=== PATIENT | female | born 1940 | race Caucasian/White ===

== ENCOUNTER 2023-03-26 07:09 | Outpatient (RCR) | payer OTHER, SELFPAY ==
--- NOTE | 2023-02-17 15:02 | CR1_ITS ---
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
--- NOTE | 2023-03-17 14:56 | CR1_ITS ---
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
--- NOTE | 2023-03-26 13:51 | CR1_ITS ---
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
== END 2023-03-26 13:27 | disposition home or self-care (01) ==
LOC: CR 07:09
PROVIDERS: PCP Internal Medicine; Visit Provider Internal Medicine Cardiovascular Disease
DX: I25.10 Atherosclerotic heart disease of native coronary artery without angina pectoris (principal); I50.9 Heart failure, unspecified; Z98.61 Coronary angioplasty status
CPT/HCPCS: 93798

== ENCOUNTER 2023-05-14 10:37 | Outpatient (OUT) | payer OTHER, SELFPAY ==
[2023-05-14 11:10] LABS: Basophils Absolute Auto 0.1 10^3/uL (0.0-0.1); Basophils Percent Auto 0.8 % (0.2-2.0); Eosinophils Absolute Auto 0.3 10^3/uL (0.0-0.7); Eosinophils Percent Auto 5.4 % (0.9-7.0); Hematocrit 33.9 % (36.0-48.0); Hemoglobin 11.3 g/dL (12.0-16.0); Immature Granulocytes Abs Auto 0.02 10^3/uL (0.00-0.03); Immature Granulocytes Pct Auto 0.3 % (0.0-0.5); Lymphocytes Absolute Auto 1.5 10^3/uL (1.2-3.8); Mean Corpuscular HGB Conc 33.3 g/dL (29.9-35.2); Mean Corpuscular Hemoglobin 32.3 pg (26.7-34.0); Mean Corpuscular Volume 96.9 fL (81.0-99.0); Mean Platelet Volume 9.7 fL (9.5-13.5); Monocytes Absolute Auto 0.6 10^3/uL (0.3-0.8); Monocytes Percent Auto 10.1 % (1.7-12.0); Neutrophils Absolute Auto 3.8 10^3/uL (1.4-6.5); Neutrophils Percent Auto 59.4 % (43.0-75.0); Platelet Count 184 10^3/uL (150-450); White Blood Count 6.3 10^3/uL (4.0-11.0)
[2023-05-14 11:11] LABS: Bilirubin Urine NEGATIVE (NEGATIVE); Blood Urine TRACE-I (NEGATIVE); Clarity Urine CLEAR (CLEAR); Color Urine LT. YELLOW (YELLOW); Glucose Urine UA NEGATIVE (NEGATIVE); Ketones Urine NEGATIVE (NEGATIVE); Leukocyte Esterase Urine NEGATIVE (NEGATIVE); Nitrite Urine NEGATIVE (NEGATIVE); Protein Urine NEGATIVE (NEG/TRACE); pH Urine 6.5 (5.0-9.0)
[2023-05-14 11:29] LABS: Bacteria Urine TRACE #/HPF (NONE SEEN); Mucus Urine NONE SEEN (NONE SEEN); RBC Urine 0-2 #/HPF (0-2); Squamous Epithelial Cell Urine MODERATE #/LPF (NONE/RARE); WBC Urine NONE SEEN #/HPF (NONE SEEN)
[2023-05-14 11:30] LABS: Urine Culture Indicated ALREADY ORDERED
[2023-05-14 12:05] LABS: Alanine Aminotransferase 23 U/L (14-59); Albumin Globulin Ratio 1.4; Albumin Level 3.8 g/dL (3.4-5.0); Alkaline Phosphatase 66 U/L (46-116); Anion Gap 11.9; Aspartate Amino Transferase 18 U/L (15-37); BUN Creatinine Ratio 18.1; Bilirubin Total 0.8 mg/dL (0.2-1.0); Carbon Dioxide 27.8 mmol/L (21.0-32.0); Chloride 105 mmol/L (98-107); Estimated GFR (African America >60 (>=60); Estimated GFR (Non-African Ame 57 (>=60); Globulin 2.7 g/dL; Glucose 89 mg/dL (74-106); Potassium 3.7 mmol/L (3.5-5.1); Sodium 141 mmol/L (136-145); Thyroid Stimulating Hormone 1.012 uIU/mL (0.358-3.740); Total Protein 6.5 g/dL (6.4-8.2)
== END 2023-05-14 10:38 | disposition home or self-care (01) ==
PROVIDERS: PCP Internal Medicine; Visit Provider Internal Medicine
DX: R39.11 Hesitancy of micturition (principal); L29.9 Pruritus, unspecified; I25.10 Atherosclerotic heart disease of native coronary artery without angina pectoris; N18.31 Chronic kidney disease, stage 3a; R53.83 Other fatigue
CPT/HCPCS: 36415; 80053; 81001; 84443; 85025; 87086

== ENCOUNTER 2023-08-10 07:28 | Outpatient (OUT) | payer OTHER, SELFPAY ==
[2023-08-10 11:35] LABS: Alanine Aminotransferase 42 U/L (14-59); Anion Gap 11.3; Aspartate Amino Transferase 31 U/L (15-37); BUN Creatinine Ratio 18.3; Calcium 9.3 mg/dL (8.5-10.1); Carbon Dioxide 27.8 mmol/L (21.0-32.0); Chloride 102 mmol/L (98-107); Chol HDL Ratio 3.9; Cholesterol 174 mg/dL (<=200); Estimated GFR (African America 54 (>=60); Estimated GFR (Non-African Ame 45 (>=60); Glucose 98 mg/dL (74-106); HDL Cholesterol 45 mg/dL (40-60); Potassium 4.1 mmol/L (3.5-5.1); Sodium 137 mmol/L (136-145); Triglycerides 110 mg/dL (<=150)
== END 2023-08-10 07:29 | disposition home or self-care (01) ==
LOC: LAB 07:29
PROVIDERS: PCP Internal Medicine; Visit Provider Internal Medicine Cardiovascular Disease
DX: I25.10 Atherosclerotic heart disease of native coronary artery without angina pectoris (principal); I10 Essential (primary) hypertension; Z98.61 Coronary angioplasty status; E78.5 Hyperlipidemia, unspecified
CPT/HCPCS: 36415; 80048; 80061; 84450; 84460

== ENCOUNTER 2023-08-14 10:04 | Outpatient (OUT) | payer OTHER, SELFPAY ==
--- NOTE | 2023-08-14 10:10 | XR_ITS ---
The [place] [id number] Patient Name: MARY TEE MRN: [id number] date: 1940 Sex: F Assigned Patient Location: [facility] Current Patient Location: [facility] Accession/Order Number: [id number] Exam Date: 08/14/2023 10:16 Report Date: 08/14/2023 11:42 At the request of: IVAN BARRETO Procedure: XR thoracic spine 3V EXAMINATION: XR thoracic spine 3V, XR lumbar spine 2-3V HISTORY: Acute Right Sided Low Back Pain Without Sciatica COMPARISON: No relevant comparison available. 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 7 mm anterolisthesis of L4 in relation L5 DISC SPACES: Multilevel disc space narrowing, moderate to severe. Disc collapse at multiple levels with endplate sclerosis and vacuum disks PARASPINOUS: Negative. No paraspinous abnormality is seen. OTHER: Extensive atherosclerosis XR/XR thoracic spine 3V IMPRESSION: Moderate to severe diffuse degenerative changes of the thoracolumbar spine 7 mm anterolisthesis of L4 and L5 Electronically authenticated by: TED ARREDONDO Date: 08/14/2023 11:42
--- NOTE | 2023-08-14 10:10 | XR_ITS ---
The [place] [id number] Patient Name: MARY TEE MRN: [id number] date: 1940 Sex: F Assigned Patient Location: [facility] Current Patient Location: [facility] Accession/Order Number: [id number] Exam Date: 08/14/2023 10:16 Report Date: 08/14/2023 11:42 At the request of: IVAN BARRETO Procedure: XR lumbar spine 2-3V EXAMINATION: XR thoracic spine 3V, XR lumbar spine 2-3V HISTORY: Acute Right Sided Low Back Pain Without Sciatica COMPARISON: No relevant comparison available. 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 7 mm anterolisthesis of L4 in relation L5 DISC SPACES: Multilevel disc space narrowing, moderate to severe. Disc collapse at multiple levels with endplate sclerosis and vacuum disks PARASPINOUS: Negative. No paraspinous abnormality is seen. OTHER: Extensive atherosclerosis XR/XR lumbar spine 2-3V IMPRESSION: Moderate to severe diffuse degenerative changes of the thoracolumbar spine 7 mm anterolisthesis of L4 and L5 Electronically authenticated by: TED ARREDONDO Date: 08/14/2023 11:42
--- OUTSIDE RECORDS SUMMARY | 2023-08-14 10:16 | XMS_ITS | CCD ---
Author Name Unknown Address [address] [place] [address] Organization [facility] Care Team Providers Care Sign Writer Letterer Or Painter Name Role Phone SULMA BUSBY Ivory Unavailable Unavailable PORFIRIO VU Unavailable Unavailable Porfirio Vu Primary Care Provider Danis Huang Unavailable Unavailable Unavailable Danis Huang Unavailable BRYCE, DR SUNG Admitting Unavailable MARY LOU, DR LOVE Primary Care Unavailable BRYCE, DR SUNG Attending Unavailable BRYCE, DR SUNG Consulting Unavailable MEHRAN ., DR GAINES Consulting Unavailangel HUANG, DR LOVE Primary Care Unavailable MEHRAN ., DR GAINES Admitting Unavailabl e KARASIK ., DR GAINES Attending Unavailabl e KARASIK ., DR GAINES Attending Unavailabl e KARASIK ., DR GAINES Consulting Unavailangel e MARY LOU, DR LOVE Primary Care Unavailable KARASIK ., DR GAINES Admitting Unavailabl e YOSELIN TRAVIS Consulting Unavailable DO Chaitanya Luna Emergency Provider MD Porfirio Vu Primary Care Provider DO Allan Marroquin Admit Provider DO Allan Marroquin Attending Provider MD Odalis Hager Other Provider DO Danis Huang Primary Care Provider Danis Huang Primary Care Unavailable Allan Marroquin Attending Unavailable Allan aMrroquin Admitting Unavailable Odalis Hager Consulting Unavailable Mary Lou, Dr. Danis Goodrich Primary Care Kelly Huang, Dr. Danis Goodrich Primary Care Kelly Huang, Dr. Danis Goodrich Primary Care Kelly Huang, Dr. Danis Goodrich Primary Care Kelly Huang, Dr. Danis Goodrich Primary Care Kelly Wu II, Dr. Darryl Arthur Attending Seema Wu II, Dr. Darryl Arthur Referring Seema Huang, Dr. Danis Goodrich Primary Care Kelly Huang, Dr. Danis Goodrich Primary Care Kelly Wu II, Dr. Darryl Arthur Attending Seema Wu II, Dr. Daryrl Arthur Referring Seema Wu II, Dr. Darryl Arthur Attending Seema Huang, Dr. Danis Goodrich Primary Care Kelly Huang DO, Danis Goodrich Primary Care Provider AIDAN AMEZCUA Attending MERCEDEZ Schaffer Attending MERCEDEZ Schaffer Attending Unavailable Medications Current Medications Medication Drug Class(es) Dates Sig (Normalized) Sig (Original) alendronic acid 70 mg oral tablet (20 sources) Bisphosphonate Start: 05-28-2022 take 70 mg by mouth every week Alendronate Active 70 MG PO every week January 14, 2023 12:00am EVERY THURSDAY take 1 tablet by mouth once jasiel y Alendronate Sodium 70 MG 1 tablet 30 minutes before the first food, beverage or medicine of the day with plain water Orally Active take 1 tablet by mouth in the mo rning alendronate (Fosamax) 70 mg tablet Take 1 tablet (70 mg) by mouth every 7 days. Take in the morning with a full glass of water, on an empty stomach, and do not take anything else by mouth or lie down for the next 30 min. 0 Active aspirin 81 mg delayed release oral tablet (20 sources) Platelet Aggregation Inhibitor, Nonsteroidal Anti-inflammatory Drug Start: 07-08-2007 take 1 tablet by mouth once daily Aspirin (Aspir-81) 81 mg Tablet,Delayed Release (Dr/Ec) Active 81 MG PO Daily November 02, 2017 12:00am take 1 tablet by mouth once jasiel y Aspirin 81 81 MG 1 tablet Orally Once a day Active Baby Aspirin Act philippe Comment on above: Take one (1) tablet daily. azithromycin 250 mg oral tablet (2 sources) Macrolide Antimicrobial Start: 10-28-2022 Azithromycin 250 MG as directed Orally daily for 5 days Oct, Active Start: 07-03-2021 Azithromycin 2 50 MG Oral Tablet TAKE 2 TABLETS by mouth today, THEN take 1 TABLET once a day FOR the next 4 DAYS. Quantity: 6 Refills: 0 Ordered: 03-Jul-2021 DO Start : 03-Jul-2021 Complete calcium carbonate 1250 mg / cholecalciferol 200 unt oral tablet (1 source) Vitamin D take 1 tablet by mouth once daily calcium carbonate-vitamin D3 500 mg-5 mcg (200 unit) tablet Take 1 tablet by mouth once daily. 0 Active carvedilol 6.25 mg oral tablet (20 sources) alpha-Adrenergic Elpidio, beta-Adrenergic Elpidio Start: 023 take 1 tablet by mouth twice daily at mealtime carvedilol (Coreg) 6.25 mg tablet Indications: Congestive heart failure, NYHA class 2 and ACC/AHA stage C (CMS/HCC) Take 1 tablet (6.25 mg) by mouth 2 times a day with meals. 180 tablet 3 05/19/2023 Active cetirizine hydrochloride 10 mg oral tablet (2 sources) Histamine-1 Receptor Antagonist Start: take 1 tablet by mouth every twenty-four hours Cetirizine HCl 10 MG 1 tablet Orally Once a day for 30 days Mar, Active cholecalciferol 0.025 mg oral capsule (20 sources) Vitamin D Start: take 1 capsule by mouth once daily Cholecalciferol (Vitamin D3) (Vitamin D3) 25 mcg (1,000 unit) Capsule Active 25 MCG PO Daily January 14, 2023 12:00am take 1 capsule by [facility] every twenty-four hours Vitamin D3 50 MCG (2000 UT) 1 capsule Orally Once a day Active docusate sodium 50 mg oral capsule (18 sources) Start: 01-14-2023 take 50 mg by mouth twice daily Docusate Sodium Active 50 MG PO Twice daily January 14, 2023 12:00am take 1 capsule by mo [facility] once daily as needed Docusate Sodium 50 MG 1 capsule as neede d Orally Once a day Active Docusate Sodium TABS TAKE 1 TABLET DAILY DIRECTED. Quantity: 0 Refills: 0 Ordered: 05-Feb-2023 DO Active hydroCHLOROthiazide 12.5 mg / telmisartan 40 mg oral tablet (20 sources) Thiazide Diuretic, Angiotensin 2 Receptor Elpidio Start: 01-14-2023 take 1 tablet by mouth once daily Telmisartan-Hydrochlorothiazid Active 1 TAB PO Daily January 14, 2023 12:00am Start: 05-29-2022 Telmisartan-HC TZ 40-12.5 MG Oral Tablet Quantity: 30 Refills: 0 Ordered: 29-May-2022 DO Start : 29-May-2022 Complete take 1 tablet by tamara th once daily telmisartan-hydrochlorothiazid (MIcarDIS HCT) 80-12.5 mg tablet Take 1 tablet by mouth once daily. 0 Active hydrOXYzine hydrochloride 25 mg oral tablet (10 sources) Antihistamine take 1 tablet by mouth once at bedtime hydrOXYzine HCl 25 MG 1 tablet Orally q HS for 30 days Active nitroglycerin 0.4 mg sublingual tablet (18 sources) Nitrate Vasodilator Start: 01-17-20 Nitroglycerin Active 0.4 MG SUBLINGUAL Q5M January 16, 2023 12:00am Nitroglycerin 0. 4 MG as directed Sublingual Active Omeprazole Magnesium (Prilosec Otc) 20 mg Tablet,Delayed Release (Dr/Ec) (2 sources) Start: 11-02-2017 take 1 tablet by mouth once daily Omeprazole Magnesium (Prilosec Otc) 20 mg Tablet,Delayed Release (Dr/Ec) Active 20 MG PO Daily November 02, 2017 12:00am pravastatin sodium 80 mg oral tablet (13 sources) HMG-CoA Reductase Inhibitor Start: 09-17-2022 take 1 tablet by mouth every twenty-four hours Pravastatin Sodium 80 MG 1 tablet Orally Once a day for 100 days Sep, Active Start: 11-02-2017 End: 01-16-2023 take 1 tablet by mouth at bedtime Pravastatin Discontinued 1 TAB PO Bedtime November 02, 2017 12:00am January 16, 2023 1:36pm Pravastatin Sodi um 40 MG 2 Orally daily for 90 days Active take 1 tablet by tamara th every twelve hours Pravastatin Sodium 40 MG 1 tablet Orally twice a day for 100 days Active ticagrelor 90 mg oral tablet (20 sources) Start: 01-16-2023 End: 06-15-2023 take 1 tablet by mouth twice daily Ticagrelor (Brilinta) 90 mg Tablet Active 90 MG PO Twice daily 180 January 16, 2023 12:00am {20 (nirmatrelvir 150 MG Oral Tablet) / 10 (ritonavir 100 MG Oral Tablet) } Pack [Paxlovid 5-Day] (1 source) Start: 10-30-2022 take 3 tablets by mouth every twelve hours Paxlovid (300/100) 20 x 150 MG & 10 x 100MG 3 tablets Orally Twice a day for 5 day(s) Oct, Active Completed/Discontinued Medications Medication Drug Class(es) Dates Sig (Normalized) Sig (Original) amoxicillin 500 mg oral capsule (1 source) Penicillin-class Antibacterial Start: 10-02-2021 Amoxicillin 500 MG Oral Capsule TAKE 4 CAPSULES BY MOUTH 30 minutes prior to dental appointment Quantity: 4 Refills: 0 Ordered: 02-Oct-2021 DO Start : 02-Oct-2021 Complete atenolol 25 mg oral tablet (10 sources) beta-Adrenergic Elpidio Start: 04-02-2022 take 0.5 tablet by mouth once daily Atenolol 25 MG Oral Tablet TAKE 1/2 (ONE-HALF) OF A TABLET BY MOUTH DAILY Quantity: 15 Refills: 0 Ordered: 01-May-2022 DO Start : 02-Apr-2022 Complete Start: 12-13-2009 End: 01-16-2023 take 25 mg by mouth at bedtime Atenolol Discontinued 2 5 MG PO Bedtime November 02, 2017 12:00am January 16, 2023 1:36pm Comment on above: Take one(1) tablet d brendaanurag. atorvastatin 40 mg oral tablet (20 sources) HMG-CoA Reductase Inhibitor Start: take 2 tablets by mouth once daily Atorvastatin Calcium 40 MG Oral Tablet TAKE 2 TABLET Daily Quantity: 180 Refills: 0 Ordered: 19-Mar-2023 Darryl Wu MD Start : 19-Mar-2023 Active Patient states she cannot swallow an 80 mg tablet Start: 01-16-2023 take 80 mg by mouth once daily in the evening Atorvastatin Active 80 MG PO Every evening January 16, 2023 12:00am 24 hr darifenacin 7.5 mg extended release oral tablet (1 source) Cholinergic Muscarinic Antagonist Start: 07-08-2007 darifenacin hydrobromide(ENABLEX 7.5 MG 24 HR TAB) ONE IN AM AND 1 IN THE PM 0 07/08/2007 Active Comment on above: ONE IN AM AND 1 IN T HE PM diclofenac sodium 75 mg delayed release oral tablet (2 sources) Nonsteroidal Anti-inflammator y Drug Start: 11-02-2017 End: 06-16-2018 take 75 mg by mouth twice daily Diclofenac Sodium Discontinued 75 MG PO Twice daily November 02, 2017 12:00am June 16, 2018 2:38pm hydroCHLOROthiazide 12.5 mg / irbesartan 150 mg oral tablet (1 source) Thiazide Diuretic, Angiotensin 2 Receptor Elpidio Start: 12-13-2009 irbesartan/hydrochlorot hiazide(AVALIDE 150 MG-12.5 MG TAB) Take 1 tablet daily 0 12/13/2009 Active Comment on above: Take 1 tablet daily Irbesartan-Hydrochlorot hiazide (2 sources) Start: 11-02-2017 End: 01-14-2023 take 1 tablet by mouth once daily Irbesartan-Hydrochlorot hiazide Discontinued 1 TAB PO Daily November 02, 2017 12:00am January 14, 2023 11:55am multivitamins(DAILY VITAMIN TAB) (1 source) Start: 12-13-2009 End: 01-22-2011 multivitamins(DAILY VITAMIN TAB) omeprazole 20 mg delayed release oral capsule (20 sources) Proton Pump Inhibitor Start: 01-16-2009 omeprazole(PRILOSEC 20 MG CAP) Take one(1) capsule daily. 0 01/16/2009 Active take 1 tablet by tamara th every twenty-four hours PriLOSEC OTC 20 MG 1 tablet Orally Once a day Active take 1 tablet by mouth once jasiel y PriLOSEC OTC 20 MG 1 tablet Orally Once a day Active PriLOSEC 20 MG C PDR 1/2 capsule daily Quantity: 0 Refills: 0 Ordered: 04-Jun-2022 DO Active Comment on above: Take one(1) capsule daily. rosuvastatin calcium 10 mg oral tablet (1 source) HMG-CoA Reductase Inhibitor Start: 07-08-2007 rosuvastatin calcium(CRESTOR 10 MG TAB) sulfamethoxazole 800 mg / trimethoprim 160 mg oral tablet (1 source) Dihydrofolate Reductase Inhibitor Antibacterial, Sulfonamide Antimicrobial Start: 04-22-2022 Sulfamethoxazole-Trime thoprim 800-160 MG Oral Tablet Quantity: 10 Refills: 0 Ordered: 22-Apr-2022 DO Start : 22-Apr-2022 Complete terconazole 4 mg/ml vaginal cream (1 source) Azole Antifungal Start: 12-26-2021 Terconazole 0.4 % Vaginal Cream Quantity: 45 Refills: 0 Ordered: 26-Dec-2021 DO Start : 26-Dec-2021 Complete Triamcinolone (20 sources) Corticosteroid Start: 09-22-2017 Kenalog -40 mg Sep, Start: 04-27-2017 Kenalog -40 mg Apr, Vitamin D3 CAPS (3 sources) Vitamin D3 CAPS TAKE 1 CAPSULE Daily Quantity: 0 Refills: 0 Ordered: 05-Feb-2023 DO Active Problems Active Problems Problem Classification Problem Date Documented Da te Episodic/Chronic Abdominal pain (3 sources) Right lower quadrant pain; 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: [Right lower quadrant pain] Episodic Acute bronchitis (3 sources) Acute bronchitis; 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: [Acute bronchitis due to other specified organisms] Episodic Acute myocardial infarction (5 sources) Myocardial infarction; 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: [ST elevation (STEMI) myocardial infarction of unspecified site] Onset: 3 01-14-2023 Chronic Acute posthemorrhagic anemia (2 sources) Acute posthemorrhagic anemia Episodic Allergic reactions (1 source) Urticaria, unspecified Episodic Chronic kidney disease (20 sources) Chronic kidney disease stage 3A ; 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: [Stage 3a chronic kidney disease] Chronic Conditions associated with dizziness or vertigo (4 sources) Dizziness and giddiness; 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: [Dizziness and giddiness] Episodic Congestive heart failure; nonhypertensive (6 sources) Congestive heart failure stage C; 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: [Congestive heart failure, unspecified] Onset: 3 06-15-2023 Chronic Coronary atherosclerosis and other heart disease (20 sources) Arteriosclerotic vascular disease; 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: [Cardiovascular disease, unspecified] Onset: 3 Chronic Coronary atherosclerosis and other heart disease (3 sources) Presence of coronary angioplasty implant and graft; 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: [Percutaneous transluminal coronary angioplasty status] Onset: 3 01-14-2023 Episodic Disorders of lipid metabolism (20 sources) Hyperlipidemia; 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: [Other and unspecified hyperlipidemia] Onset: 3 Chronic Esophageal disorders (19 sources) Gastro-esophageal reflux disease with esophagitis; 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: [Gastroesophageal reflux disease with esophagitis without hemorrhage] Chronic Essential hypertension (20 sources) Benign essential hypertension; 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: [Benign essential hypertension] Onset: 3 Chronic Essential hypertension (1 source) Essential hypertension Onset: 7 Genitourinary symptoms and ill-defined conditions (19 sources) Dysuria; 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: [Dysuria] Episodic Heart valve disorders (5 sources) Systolic murmur; 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: [Undiagnosed cardiac murmurs] Onset: 3 05-19-2023 Episodic Immunizations and screening for infectious disease (4 sources) Encounter for screening for human papillomavirus (HPV); 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: [Contact with and (suspected) exposure to other viral communicable diseases] Onset: 2 Episodic Malaise and fatigue (4 sources) Fatigue; 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: [Other malaise and fatigue] Episodic Nausea and vomiting (3 sources) Nausea; 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: [Nausea] Episodic Nonmalignant breast conditions (1 source) Mastodynia Episodic Osteoarthritis (20 sources) Osteoarthritis of hip; 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: [Unilateral primary osteoarthritis, right hip] Chronic Osteoporosis (20 sources) Senile osteoporosis; 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: [Age-related osteoporosis without current pathological fracture] Onset: 2 Chronic Other acquired deformities (20 sources) Lumbar spondylolisthesis; 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: [Spondylolisthesis, lumbar region] Episodic Other acquired deformities (2 sources) Spondylolisthesis, lumbar region Episodic Other aftercare (3 sources) Long-term current use of drug therapy; 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: [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] Episodic Other connective tissue disease (20 sources) History of repair of hip joint; 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: [Presence of left artificial hip joint] Chronic Other connective tissue disease (3 sources) Presence of right artificial hip joint; 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: [Total hip replacement Prosthesis] Chronic Other connective tissue disease (20 sources) Trochanteric bursitis of right hip; 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: [Trochanteric bursitis, right hip] Episodic Other connective tissue disease (20 sources) Trochanteric bursitis of left hip; 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: [Trochanteric bursitis, left hip] Episodic Other female genital disorders (3 sources) Noninflammatory disorder of the vagina; 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: [Other specified noninflammatory disorders of vagina] Episodic Other gastrointestinal disorders (1 source) Diarrhea, unspecified Episodic Other inflammatory condition of skin (3 sources) Lichen simplex chronicus; 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: [Lichen simplex chronicus] Episodic Other injuries and conditions due to external causes (3 sources) History of fall; 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: [History of falling] Episodic Other lower respiratory disease (7 sources) Dyspnea; 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: [Other respiratory abnormalities] Episodic Other lower respiratory disease (1 source) Shortness of breath; 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: [Shortness of breath] Onset: 3 Episodic Other lower respiratory disease (1 source) Dyspnea, unspecified; 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: [Dyspnea, unspecified] Onset: 3 Episodic Other nervous system disorders (20 sources) Chronic pain; 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: [Other chronic pain] Chronic Other nervous system disorders (3 sources) Abnormal gait; 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: [Unsteadiness on feet] Episodic Other non-traumatic joint disorders (3 sources) Shoulder joint pain; 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: [Pain in right shoulder] Episodic Other nutritional; endocrine; and metabolic disorders (4 sources) Overweight in adulthood with body mass index of 25 or more but less than 30; 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: [Overweight] Episodic Other nutritional; endocrine; and metabolic disorders (3 sources) Loss of appetite; 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: [Anorexia] Episodic Other nutritional; endocrine; and metabolic disorders (3 sources) Overweight; 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: [Overweight] Episodic Peripheral and visceral atherosclerosis (20 sources) Peripheral vascular disease; 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: [Peripheral vascular disease, unspecified] Chronic Residual codes; unclassified (3 sources) Preventive procedure; 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: [Encounter for other specified prophylactic measures] Episodic Residual codes; unclassified (3 sources) Localized edema; 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: [Localized edema] Episodic Spondylosis; intervertebral disc disorders; other back problems (20 sources) Degeneration of lumbosacral intervertebral disc; 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: [Other intervertebral disc degeneration, lumbosacral region] Onset: 9 01-16-2009 Chronic Spondylosis; intervertebral disc disorders; other back problems (20 sources) Thoracic and lumbosacral neuritis; 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: [Thoracic or lumbosacral neuritis or radiculitis, unspecified] Onset: 9 01-16-2009 Episodic Unclassified (2 sources) Chest pain, unspecified / R07.9(ICD-9) Onset: 7 Unclassified (1 source) Athscl heart disease of [place] coronary artery w/o ang pctrs / I25.10(ICD-9) Onset: 7 Unclassified (1 source) Family hx of ischem heart dis and oth dis of the circ sys / Z82.49(ICD-9) Onset: 7 Unclassified (1 source) Other fatigue / R53.83(ICD-9) Onset: 7 Unclassified (1 source) Pure hypercholesterolemia, unspecified / E78.00(ICD-9) Onset: 7 Unclassified (1 source) Coronary angioplasty status / Z98.61(ICD-9) Onset: 7 Past or Other Problems Problem Classification Problem Date Documented Date Episodic/Chronic Chronic kidney disease (5 sources) Chronic kidney disease Esophageal disorders (2 sources) Esophageal disorders Nonspecific chest pain (10 sources) Chest pain, unspecified; 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: [Chest pain] Onset: 03-11-2017 Resolved: 10-31-2021 Episodic Occlusion or stenosis of precerebral arteries (6 sources) Occlusion and stenosis of multiple and bilateral cerebral arteries; 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: [Occlusion and stenosis of bilateral carotid arteries] Resolved: 05-16-2021 Chronic Other non-traumatic joint disorders (1 source) Hip pain; 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: [Pain in unspecified hip] Onset: 12-18-2009 12-18-2009 Episodic Other nutritional; endocrine; and metabolic disorders (11 sources) Abnormal weight loss; 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: [Abnormal weight loss] Resolved: 05-05-2022 Episodic Other screening for suspected conditions (not mental disorders or infectious disease) (8 sources) Encounter for screening mammogram for malignant neoplasm of breast; 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: [Encounter for screening for malignant neoplasm of cervix] Onset: 2022 Episodic Residual codes; unclassified (1 source) Asymptomatic menopausal state; 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: [ASYMPTOMATIC MENOPAUSAL STATE] Onset: 05-25-2022 Episodic Residual codes; unclassified (3 sources) Postmenopausal state; 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: [Asymptomatic menopausal state] Onset: 2022 Episodic Unclassified (4 sources) Never smoked tobacco; 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: [Never a smoker] Unclassified (1 source) Polyuria R35.89 Unclassified (1 source) Onset: 06-15-2023 06-15-2023 Results Test Name Value Interpretation Reference Range Facility [facility] IN[facility] Patient Name: ATIYA JHA STUDY: MUGA [facility] [address] [place] [address], [address], [place] [address] [facility] Provider: [facility] Marroquin [facility]: Dr. Nathalie Huang Supervising provider: Sulma Busby RN, BOILER ERECTOR INDICATION: ASCVD Chest Pain; CHF Dyspnea Fatigue Hx PTCA HISTORY: Gender: F; Age: 82 y/o ; Height: 165.1 cm; Weight: 69.2418038 kg. CAD; Chest Pain; SOB; CHF Fatigue; Denies smoking. Cardiac catheterization on 2022. PTCA on 2022. COMPARISON: Previous nuclear testing completed [id number] EF= 76% at [facility]. Previous echo testing completed [id number] EF=40-45% at [facility]. ACCESSION NUMBER(S): [id number]; [id number] ORDERING CLINICIAN: DARRYL MARROQUIN TECHNIQUE: The patient received an IV injection of 3 ml of stannous pyrophosphate (PYP) using the in-vivo method of labeling red blood cells. After 15 minutes the patient received another IV injection of 26.7 mCi of Technetium 99m pertechnetate. Planar images of the left ventricle were obtained in the MARISOL 45, Lt Lateral and anterior projections. FINDINGS: The right ventricle was normal. The left ventricle was normal in size. Regional wall motion was normal. Global resting LVEF was normal- at 58%. IMPRESSION: Normal resting right ventricular function. Normalresting left ventricular function. Left ventricular ejection fraction is 58%. Electronically signed by: ANGIE CEDENO MD Normal [facility] No Panel Informationon 03-11 Normal [facility] [place] [address] DO Work Phone: Tobacco Screening.on 023 Adult depression screening assessment Yes [facility] y [address] DO Work Phone: Adult depression screening assessment No [facility] y [address] DO Work Phone: Fall risk assessment a) No falls within the last year [facility] [place] [address] DO Work Phone: Tobacco use status [facility] b) No [facility] DO Work Phone: Basic Metabolic Panelon - Anion gap [Moles/Vol] 11.8 mmol/L Normal 6.0-15.0 [facility] Comment on above: Performed By: #### H S TROP #### [facility] [address] [place] [address] [place] Calcium [Mass/Vol] 8.8 mg/dL Normal 8.6-10.3 [facility] Comment on above: Performed By: #### H S TROP #### [facility] [address] [place] [address] [place] Chloride [Moles/Vol] 107 mmol/L Normal 98-107 [facility] Comment on above: Performed By: #### H S TROP #### [facility] [address] [place] [address] [place] CO2 [Moles/Vol] 25.2 mmol/L Normal 21.0-31.0 [facility] Comment on above: Performed By: #### H S TROP #### [facility] [address] [place] [address] [place] Creatinine [Mass/Vol] 0.88 mg/dL Normal 0.60-1.20 [facility] Comment on above: Performed By: #### H S TROP #### [facility] [address] [place] [address] [place] Creatinine Clr Calc Pharmacy 48.86 [facility] Comment on above: Result Comment: PERF ORMED BY: [place] [address] PATHOLOGIST COUNSELOR AID JAYDE CARDOZA M.D. Performed By: #### H S TROP #### [place] [address] [place] GFR/1.73 sq M.predicted MDRD (S/P/Bld) [Vol rate/Area] mL/min/{1.73_m2} [facility] Comment on above: Performed By: #### H S TROP #### [place] [address] [place] Glucose [Mass/Vol] 100 mg/dL Normal 70-100 [facility] Comment on above: Result Comment: [place] Glucose Reference Range is dependent on time and content of last meal. Glucose of more than 200 mg/dL in a nonstressed, ambulatory subject supports the diagnosis of Diabetes Mellitus. ADA recommended reference range Performed By: #### H S TROP #### [facility] [address] Potassium [Moles/Vol] 4.0 mmol/L Normal 3.5-5.1 [facility] Comment on above: Performed By: #### H S TROP #### [facility] [address] Sodium [Moles/Vol] 140 mmol/L Normal 136-145 [facility] Comment on above: Performed By: #### H S TROP #### [facility] [address] [address] Urea nitrogen [Mass/Vol] 15 mg/dL Normal 7-25 [facility] Comment on above: Performed By: #### H S TROP #### [facility] [address] Basophils Auto (Bld) [#/Vol] Ordered By: Allan Marroquin on 01-16-2023 Basophils (Bld) [#/Vol] 0.0 10*3/uL 0.0-0.2 [facility] Basophils/100 WBC Auto (Bld) Ordered By: Allan Marroquin on 01-16-2023 Basophils/100 WBC (Bld) 0.6 % . [facility] Calcium [Mass/volume] in Ser um or PlasmaOrdered By: Allan Marroquin on 01-16-2023 Calcium [Mass/Vol] 8.8 mg/dL 8.6-10.3 [facility] Carbon dioxide, total [Moles /volume] in Serum or PlasmaOrdered By: Allan Marroquin on 01-16-2023 CO2 [Moles/Vol] 25.2 mmol/L 21.0-31.0 [facility] Chloride [Moles/volume] in S katiana or PlasmaOrdered By: Allan Marroquin on 01-16-2023 Chloride [Moles/Vol] 107 mmol/L 98-107 [facility] Complete Blood Count Auto Di ffon 01-16-2023 Basophils (Bld) [#/Vol] 0.0 10*3/uL Normal 0.0-0.2 [facility] Comment on above: Result Comment: PERF ORMED BY: [place] [address] PATHOLOGIST COUNSELOR AID JAYDE CARDOZA M.D. Performed By: #### H S TROP #### [address] Basophils/100 WBC (Bld) 0.6 % Normal . [facility] Comment on above: Performed By: #### H S TROP #### [address] Eosinophils (Bld) [#/Vol] 0.3 10*3/uL Normal 0.0-0.45 [facility] Comment on above: Performed By: #### H S TROP #### [address] Eosinophils/100 WBC (Bld) 5.1 % Normal . [facility] Comment on above: Performed By: #### H S TROP #### [address] Erythrocyte distribution width (RBC) [Ratio] 13.8 % Normal 11.9-15.3 [facility] Comment on above: Performed By: #### H S TROP #### [address] Hematocrit (Bld) [Volume fraction] 32.9 % Low 34.0-46.4 [facility] Comment on above: Performed By: #### H S TROP #### [address] Hemoglobin (Bld) [Mass/Vol] 11.5 g/dL Low 11.8-15.4 [facility] Comment on above: Performed By: #### H S TROP #### [address] Lymphocytes (Bld) [#/Vol] 1.4 10*3/uL Normal 1.00-4.8 [facility] Comment on above: Performed By: #### H S TROP #### [facility] 1111 [place] [address] [place] Lymphocytes/100 WBC (Bld) 28.0 % Normal . [facility] Comment on above: Performed By: #### H S TROP #### [facility] [address] MCH (RBC) [Entitic mass] 32.1 pg Normal 24.7-34.3 [facility] Comment on above: Performed By: #### H S TROP #### [address] MCV (RBC) [Entitic vol] 92.2 fL Normal 80-100 [facility] Comment on above: Performed By: #### H S TROP #### [address] Mean Corpuscular HGB Conc 34.8 g/dL Normal 32.0-35.0 [facility] Comment on above: Performed By: #### H S TROP #### [place] [address] [place] Monocytes (Bld) [#/Vol] 0.6 10*3/uL Normal 0.0-0.8 [facility] Comment on above: Performed By: #### H S TROP #### [place] [address] [place] Monocytes/100 WBC (Bld) 12.0 % Normal . [facility] Comment on above: Performed By: #### H S TROP #### [address] Neutrophils (Bld) [#/Vol] 2.8 10*3/uL Normal 1.8-7.7 [facility] Comment on above: Performed By: #### H S TROP #### [address] Neutrophils/100 WBC (Bld) 54.3 % Normal . [facility] Comment on above: Performed By: #### H S TROP #### [address] NRBC% 0.2 /100{WBC} Normal 0-0.5 [facility] Comment on above: Performed By: #### H S TROP #### [address] Platelet mean volume (Bld) [Entitic vol] 8.0 fL Normal 6.3-10.7 [facility] Comment on above: Performed By: #### H S TROP #### [address] Platelets (Bld) [#/Vol] 161 10*3/uL Normal 150-450 [facility] Comment on above: Performed By: #### H S TROP #### [address] RBC (Bld) [#/Vol] 3.57 10*6/uL Low 3.60-5.00 [facility] Comment on above: Performed By: #### H S TROP #### [address] WBC (Bld) [#/Vol] 5.2 10*3/uL Normal 3.8-11.6 [facility] Comment on above: Performed By: #### H S TROP #### [address] Creatinine [Mass/volume] in Serum or PlasmaOrdered By: Allan Marroquin on 01-16-2023 Creatinine [Mass/Vol] 0.88 mg/dL 0.60-1.20 [facility] ECG 12 lead ECGon 01-16-2023 ECG 12 lead ECG [facility] [place] [address] [place] [address] Electrocardiograph Report Signed Patient: Atiya Jha MR#: [id number] : 1940 Acct:[id number] Age/Sex: 82 / F ADM Date: 01/14/23 Loc: Room: [address] [place] [address] Type: DIS IN Attending Dr: Allan Marroquin DO Ordering Provider: W Ziyad Kristian, DO Date of Service: 01/16/23 ECG/ECG 12 lead ECG: STEMI Copies to: Test Reason : Blood Pressure : / mmHG Vent. Rate : 069 BPM Atrial Rate : 069 BPM P-R Int : 156 ms QRS Dur : 084 ms QT Int : 488 ms P-R-T Axes : 044 070 236 degrees QTc Int : 522 ms Normal sinus rhythm Anterior infarct , age undetermined T wave abnormality, consider inferolateral ischemia Prolonged QT Abnormal ECG When compared with ECG of 15-JAN-2023 07:56, T wave inversion now evident in Inferior leads Confirmed by [facility] ([id number] on 01/16/2023 11:20:09 PM Referred By: Electronically Signed By:KOKO WU MD [facility] Transcribed By: MUS Signed By Darryl Wu MD 01/16/[address] [facility] Eosinophils Auto (Bld) [#/Vo l]Ordered By: Allan Marroquin on 01-16-2023 Eosinophils (Bld) [#/Vol] 0.3 10*3/uL 0.0-0.45 [facility] Eosinophils/100 WBC Auto (Bl d)Ordered By: Allan Marroquin on 01-16-2023 Eosinophils/100 WBC (Bld) 5.1 % . [facility] Erythrocyte distribution wid th Auto (RBC) [Ratio]Ordered By: Allan Marroquin on 01-16-2023 Erythrocyte distribution width (RBC) [Ratio] 13.8 % 11.9-15.3 [facility] Glucose [Mass/volume] in Ser um or PlasmaOrdered By: Allan Marroquin on 01-16-2023 Glucose [Mass/Vol] 100 mg/dL 70-100 [facility] Comment on above: ADA recommended refe rence rangeRandom Glucose Reference Range is dependent on time and content of last meal. Glucose of more than 200 mg/dL in a nonstressed, ambulatory subject supports the diagnosis of Diabetes Mellitus. Hematocrit Auto (Bld) [Volum e fraction]Ordered By: Allan Marroquin on 01-16-2023 Hematocrit (Bld) [Volume fraction] 32.9 % 34.0-46.4 [facility] Hemoglobin [Mass/volume] in BloodOrdered By: Allna Marroquin on 01-16-2023 Hemoglobin (Bld) [Mass/Vol] 11.5 g/dL 11.8-15.4 [facility] Leukocytes [#/volume] correc law for nucleated erythrocytes in Blood by Automated counOrdered By: Allan Marroquin on 01-16-2023 WBC corrected for nucl RBC Auto (Bld) [#/Vol] 5.2 10*3/uL 3.8-11.6 [facility] Lymphocytes Auto (Bld) [#/Vo l]Ordered By: Allan Marroquin on 01-16-2023 Lymphocytes (Bld) [#/Vol] 1.4 10*3/uL 1.00-4.8 [facility] Lymphocytes/100 WBC Auto (Bl d)Ordered By: Allan Marroquin on 01-16-2023 Lymphocytes/100 WBC (Bld) 28.0 % . [facility] MCH Auto (RBC) [Entitic mass ]Ordered By: Allan Marroquin on 01-16-2023 MCH (RBC) [Entitic mass] 32.1 pg 24.7-34.3 [facility] MCHC Auto (RBC) [Mass/Vol]Or dered By: Allan Marroquin on 01-16-2023 MCHC (RBC) [Mass/Vol] 34.8 g/dL 32.0-35.0 [facility] MCV Auto (RBC) [Entitic vol] Ordered By: Allan Marroquin on 01-16-2023 MCV (RBC) [Entitic vol] 92.2 fL 80-100 [facility] Monocytes Auto (Bld) [#/Vol] Ordered By: Allan Marroquin on 01-16-2023 Monocytes (Bld) [#/Vol] 0.6 10*3/uL 0.0-0.8 [facility] Monocytes/100 WBC Auto (Bld) Ordered By: Allan Marroquin on 01-16-2023 Monocytes/100 WBC (Bld) 12.0 % . [facility] Neutrophils Auto (Bld) [#/Vo l]Ordered By: Allan Marroquin on 01-16-2023 Neutrophils (Bld) [#/Vol] 2.8 10*3/uL 1.8-7.7 [facility] Neutrophils/100 WBC Auto (Bl d)Ordered By: Allan Marroquin on 01-16-2023 Neutrophils/100 WBC (Bld) 54.3 % . [facility] No Panel InformationOrdered By: Allan Marroquin on 01-16-2023 Estimated GFR (CKD-EPI) > 60.0 mL/Min [facility] Creatinine Clearance (Chem 48.86 [facility] Nucleated erythrocytes [Pres ence] in Blood by Automated countOrdered By: Allan Marroquin on 01-16-2023 Nucleated RBC Auto Ql (Bld) 0.2 /100{WBC} 0-0.5 [facility] Platelet mean volume Auto (B ld) [Entitic vol]Ordered By: Allan Marroquin on 01-16-2023 Platelet mean volume (Bld) [Entitic vol] 8.0 fL 6.3-10.7 [facility] Platelets Auto (Bld) [#/Vol] Ordered By: Allan Marroquin on 01-16-2023 Platelets (Bld) [#/Vol] 161 10*3/uL 150-450 [facility] Potassium [Moles/volume] in Serum or PlasmaOrdered By: Allan Marroquin on 01-16-2023 Potassium [Moles/Vol] 4.0 mmol/L 3.5-5.1 [facility] RBC Auto (Bld) [#/Vol]Ordere d By: Allan Marroquin on 01-16-2023 RBC (Bld) [#/Vol] 3.57 10*6/uL 3.60-5.00 [facility] Serum or plasma anion gap de terminationOrdered By: Allan Marroquin on 01-16-2023 Anion gap [Moles/Vol] 11.8 mmol/L 6.0-15.0 [facility] Sodium [Moles/volume] in Ser um or PlasmaOrdered By: Allan Marroquin on 01-16-2023 Sodium [Moles/Vol] 140 mmol/L 136-145 [facility] Urea nitrogen [Mass/volume] in Serum or PlasmaOrdered By: Allan Marroquin on 01-16-2023 Urea nitrogen [Mass/Vol] 15 mg/dL 7-25 [facility] WBC Auto (Bld) [#/Vol]Ordere d By: Allan Marroquin on 01-16-2023 WBC (Bld) [#/Vol] 5.2 10*3/uL 3.8-11.6 [facility] Basic Metabolic Panelon 01-01 Anion gap [Moles/Vol] 11.7 mmol/L Normal 6.0-15.0 [facility] Comment on above: Performed By: #### H S TROP #### [facility] [address] Calcium [Mass/Vol] 8.6 mg/dL Normal 8.6-10.3 [facility] Comment on above: Performed By: #### H S TROP #### [facility] [address] Chloride [Moles/Vol] 105 mmol/L Normal 98-107 [facility] Comment on above: Performed By: #### H S TROP #### [facility] [address] CO2 [Moles/Vol] 24.1 mmol/L Normal 21.0-31.0 [facility] Comment on above: Performed By: #### H S TROP #### [facility] [address] Creatinine [Mass/Vol] 0.80 mg/dL Normal 0.60-1.20 [facility] Comment on above: Performed By: #### H S TROP #### [facility] 1111 [place] [address] [place] Creatinine Clr Calc Pharmacy 53.75 [facility] Comment on above: Result Comment: PERF ORMED BY: [place] [address] PATHOLOGIST COUNSELOR AID JAYDE CARDOZA M.D. Performed By: #### H S TROP #### [facility] [address] [place] [address] [place] GFR/1.73 sq M.predicted MDRD (S/P/Bld) [Vol rate/Area] mL/min/{1.73_m2} [facility] Comment on above: Performed By: #### H S TROP #### [address] Glucose [Mass/Vol] 97 mg/dL Normal 70-100 [facility] Comment on above: Result Comment: [place] Glucose Reference Range is dependent on time and content of last meal. Glucose of more than 200 mg/dL in a nonstressed, ambulatory subject supports the diagnosis of Diabetes Mellitus. ADA recommended reference range Performed By: #### H S TROP #### [address] Potassium [Moles/Vol] 3.8 mmol/L Normal 3.5-5.1 [facility] Comment on above: Performed By: #### H S TROP #### [address] Sodium [Moles/Vol] 137 mmol/L Normal 136-145 [facility] Comment on above: Performed By: #### H S TROP #### [address] Urea nitrogen [Mass/Vol] 14 mg/dL Normal 7-25 [facility] Comment on above: Performed By: #### H S TROP #### [address] Complete Blood Count Auto Di ffon 01-15-2023 Basophils (Bld) [#/Vol] 0.0 10*3/uL Normal 0.0-0.2 [facility] Comment on above: Result Comment: PERF ORMED BY: [place] [address] PATHOLOGIST COUNSELOR AID JAYDE CARDOZA M.D. Performed By: #### H S TROP #### [place] [address] [place] Basophils/100 WBC (Bld) 0.4 % Normal . [facility] Comment on above: Performed By: #### H S TROP #### [place] [address] [place] Eosinophils (Bld) [#/Vol] 0.2 10*3/uL Normal 0.0-0.45 [facility] Comment on above: Performed By: #### H S TROP #### [address] Eosinophils/100 WBC (Bld) 2.7 % Normal . [facility] Comment on above: Performed By: #### H S TROP #### [address] Erythrocyte distribution width (RBC) [Ratio] 13.7 % Normal 11.9-15.3 [facility] Comment on above: Performed By: #### H S TROP #### [address] Hematocrit (Bld) [Volume fraction] 33.2 % Low 34.0-46.4 [facility] Comment on above: Performed By: #### H S TROP #### [address] Hemoglobin (Bld) [Mass/Vol] 11.6 g/dL Low 11.8-15.4 [facility] Comment on above: Performed By: #### H S TROP #### [address] Lymphocytes (Bld) [#/Vol] 1.4 10*3/uL Normal 1.00-4.8 [facility] Comment on above: Performed By: #### H S TROP #### [address] Lymphocytes/100 WBC (Bld) 19.7 % Normal . [facility] Comment on above: Performed By: #### H S TROP #### [address] MCH (RBC) [Entitic mass] 31.8 pg Normal 24.7-34.3 [facility] Comment on above: Performed By: #### H S TROP #### [address] MCV (RBC) [Entitic vol] 91.0 fL Normal 80-100 [facility] Comment on above: Performed By: #### H S TROP #### [facility] [address] Mean Corpuscular HGB Conc 34.9 g/dL Normal 32.0-35.0 [facility] Comment on above: Performed By: #### H S TROP #### [facility] 1111 [place] [address] [place] Monocytes (Bld) [#/Vol] 0.6 10*3/uL Normal 0.0-0.8 [facility] Comment on above: Performed By: #### H S TROP #### [place] [address] [place] Monocytes/100 WBC (Bld) 8.9 % Normal . [facility] Comment on above: Performed By: #### H S TROP #### [address] Neutrophils (Bld) [#/Vol] 4.7 10*3/uL Normal 1.8-7.7 [facility] Comment on above: Performed By: #### H S TROP #### [place] [address] [place] Neutrophils/100 WBC (Bld) 68.3 % Normal . [facility] Comment on above: Performed By: #### H S TROP #### [address] NRBC% 0.1 /100{WBC} Normal 0-0.5 [facility] Comment on above: Performed By: #### H S TROP #### [place] [address] [place] Platelet mean volume (Bld) [Entitic vol] 7.8 fL Normal 6.3-10.7 [facility] Comment on above: Performed By: #### H S TROP #### [place] [address] [place] Platelets (Bld) [#/Vol] 160 10*3/uL Normal 150-450 [facility] Comment on above: Performed By: #### H S TROP #### [facility] [address] RBC (Bld) [#/Vol] 3.65 10*6/uL Normal 3.60-5.00 [facility] Comment on above: Performed By: #### H S TROP #### [facility] 1111 [place] [id number] [facility] WBC (Bld) [#/Vol] 6.9 10*3/uL Normal 3.8-11.6 [facility] Comment on above: Performed By: #### H S TROP #### [facility] [address] ECG 12 lead ECGon 01-15-2023 ECG 12 lead ECG [facility] [place] [address] [place] [address] Electrocardiograph Report Signed Patient: Atiya Jha MR#: [id number] : 1940 Acct:[id number] Age/Sex: 82 / F ADM Date: 01/14/23 Loc: Room: [address] [place] [address] Type: ADM IN Attending Dr: lAlan Marroquin DO Ordering Provider: Allan Marroquin DO Date of Service: 01/15/23 ECG/ECG 12 lead ECG: STEMI Copies to: Test Reason : Blood Pressure : / mmHG Vent. Rate : 069 BPM Atrial Rate : 069 BPM P-R Int : 186 ms QRS Dur : 082 ms QT Int : 450 ms P-R-T Axes : 068 068 108 degrees QTc Int : 482 ms Normal sinus rhythm Low voltage QRS Prolonged QT Abnormal ECG When compared with ECG of 14-JAN-2023 10:30, (Unconfirmed) ST no longer elevated in Anterior leads T wave inversion now evident in Anterolateral leads Confirmed by [facility] ([id number] on 01/15/2023 11:41:06 AM Referred By: Electronically Signed By:KOKO WU MD [facility] Transcribed By: MUS Signed By Darryl Wu MD 01/15/[address] [facility] ECH echo transthoracicon ECH echo transthoracic [facility] [place] [address] [place] [address] Echocardiogram Signed Patient: Atiya Jha MR#: [id number] : 1940 Acct:[id number] Age/Sex: 82 / F ADM Date: 01/14/23 Loc: Room: [address] [place] [address] Type: ADM IN Attending Dr: Allan Marroquin DO Ordering Provider: Allan Marroquin DO Date of Service: 01/15/23 ECH/ECH echo transthoracic: STEMI Copies to: MD Allan Madera DO Weight: 154 lb Performed By: ANGELA Del [place] BSA: 1.8 m2 BP: 121/59 mmHg HR: 72 Reason For Study: STEMI History: Hypertension, High Cholesterol Interpretation Summary The left ventricular size and thickness are normal. Ejection Fraction = 40-45%. A variety of Doppler measurements indicate impaired left ventricular relaxation, which is associated with grade I/IV or mild diastolic dysfunction. There is severe hypokinesis to akinesis of the mid to distal anteroseptal wall and apex Mild valvular aortic stenosis. The aortic valve maximum pressure gradient is 26 mmHg. The aortic valve mean gradient is 13 mmHg. There is trace mitral regurgitation. There is mild tricuspid regurgitation. The right ventricular systolic pressure is 45 mmHg. Right ventricular systolic pressure is consistent with moderate pulmonary hypertension. There is no comparison study available. Procedure/Quality: A two-dimensional transthoracic echocardiogram with color flow and Doppler was performed. Left Ventricle: The left ventricular size and thickness are normal. Ejection Fraction = 40-45%. A variety of Doppler measurements indicate impaired left ventricular relaxation, which is associated with grade I/IV or mild diastolic dysfunction. There is severe hypokinesis to akinesis of the mid to distal anteroseptal wall and apex. Left Atrium: The left atrium appears normal in size. Right Atrium: The right atrium appears normal in size. Right Ventricle: The right ventricular size, thickness and function are normal. Aortic Valve: The aortic valve is mildly calcified. Mild valvular aortic stenosis. The aortic valve maximum pressure gradient is 26 mmHg. The aortic valve mean gradient is 13 mmHg. No aortic regurgitation is present. Mitral Valve: The mitral valve is moderately sclerotic. There is trace mitral regurgitation. Tricuspid Valve: The tricuspid valve is normal in structure and function. There is mild tricuspid regurgitation. The right ventricular systolic pressure is 45 mmHg. Right ventricular systolic pressure is consistent with moderate pulmonary hypertension. Pulmonic Valve: The pulmonic valve is normal in structure and function. Arteries: The aortic root is normal size. Pericardium/Pleura: No pericardial effusion seen. There is no pleural effusion. IVC/Hepatic Viens: The inferior vena cava is normal in size, with a normal collapsibility index. Measurements with Normals IVSd: 0.76 cm (0.7-1.1 cm)LVIDd: 4.3 cm (3.7-5.4 cm) LVPWd: 0.83 cm (0.7-1.1 cm)LVIDs: 2.6 cm (2.3-3.6 cm) LA dimension: 2.8 cm (2.3-4.0 cm)Ao root diam: 2.7 cm(2.0-3.6 cm) asc Aorta Diam: 3.0 cm(2.1-3.4cm) Doppler with Normals RVSP(TR): 45.8 mmHg (18-35mmHg) LV V1 max: 110.8 cm/sec (0.7-1.7m/s)MV E max edmar: 102.0 cm/sec(0.8-1.3m/s) MV A max edmar: 132.8 cm/sec(0.0-0.0m/s) MV E/A: 0.77 (<1.5) MMode/2D Measurements Calculations RVDd: 2.0 cm FS: 40.4 % Ao root area: LVOT diam: 1.9 cm TAPSE: 2.3 cm EDV(Teich): 5.5 cm2 LVOT area: 3.0 cm2 RV S Edmar: 84.9 ml 18.8 cm/sec ESV(Teich): 24.3 ml EF(Teich): 71.4 % __ LVLd ap4: 6.2 cm SV(MOD-sp4): LAV(MOD-sp4): LA A2 area: 7.9 cm2 EDV(MOD-sp4): 39.8 ml 19.4 ml 61.1 ml LAV(MOD-sp2): LA A4 area: 10.1 cm2 LVLs ap4: 5.5 cm 16.2 ml LA length (vol): ESV(MOD-sp4): 4.1 cm 21.3 ml LA vol: 16.5 ml EF(MOD-sp4): 65.1 % LA vol index: 9.0 ml/m2 Doppler Measurements Calculations MV max P.0 mmHg E/E' lat: 14.0 Ao V2 max: LV V1 max PG: E/E' med: 13.2 257.9 cm/sec 4.9 mmHg Ao max P.6 mmHgLV V1 mean PG: Ao mean P.6 mmHg 12.7 mmHg LV V1 mean: Ao V2 mean: 74.0 cm/sec 167.9 cm/sec LV V1 VTI: 28.7 cm Ao V2 VTI: 54.5 cm JEANA(I,D): 1.6 cm2 JEANA(V,D): 1.3 cm2 __ MR max edmar: TV max PG: TR max edmar: 266.2 cm/sec 43.0 mmHg 327.1 cm/sec MR max P.3 mmHg TR max P.8 mmHg RAP systole: 3.0 mmHg ___ Transcribed By: SCV Performed At: 01/15/23 0925 Signed By: Xiomara Au MD 01/15/23 1129 [facility] Glucose Glucometer (BldC) [M ass/Vol]Ordered By: Allan Marroquin on 01-15-2023 Glucose [Mass/Vol] 108 mg/dL [facility] Comment on above: Random Glucose Refer ence Range is dependent on time and content of last meal. Glucose of more than 200 mg/dL in a nonstressed, ambulatory subject supports the diagnosis of Diabetes Mellitus. Glucose Poct Glucometerson 0 01-15-2023 Glucose [Mass/Vol] 108 mg/dL Normal [facility] Comment on above: Result Comment: [place] Glucose Reference Range is dependent on time and content of last meal. Glucose of more than 200 mg/dL in a nonstressed, ambulatory subject supports the diagnosis of Diabetes Mellitus. PERFORMED BY: [place] [address] PATHOLOGIST COUNSELOR AID JAYDE CARDOZA M.D. Performed By: #### H S TROP #### [place] [address] [place] Troponin I High Sensitivityo n 01-15-2023 Troponin I High Sensitivity 92665.5 pg/mL Off scale high 0.0-15.0 [facility] Comment on above: Result Comment: Crit ical Result : Called to and read back by: SEAN WHITTAKER at: 01/15/2023 05:46:06 by:[id number] PERFORMED BY: [place] [address] PATHOLOGIST COUNSELOR AID JAYDE CARDOZA M.D. Performed By: #### H S TROP #### [place] [id number] [facility] Troponin I High Sensitivity 29317.5 pg/mL Off scale high 0.0-15.0 [facility] Comment on above: Result Comment: Crit ical Result [id number] Called to and read back by: SEAN WHITTAKER at: 01/14/2023 23:11:25 by:[id number] PERFORMED BY: [place] [phone] PATHOLOGIST COUNSELOR AID JAYDE CARDOZA M.D. Performed By: #### H S TROP #### [address] Troponin I.cardiac [Mass/vol ume] in Serum or Plasma by Detection limit <= 0.01 ng/Ordered By: Allan Marroquin on 01-15-2023 Troponin I.cardiac DL <= 0.01 ng/mL [Mass/Vol] 54768.5 pg/mL 0.0-15.0 [facility] Comment on above: Critical Result : Ca lled to and read back by: SEAN WHITTAKER at: 01/15/2023 05:46:06 by:[id number] Activated partial thrombopla stin time (aPTT) in platelet poor plasma by coagulation aOrdered By: Chaitanya Luna on 01-14-2023 aPTT Coag (PPP) [Time] 274.4 s 25.1-36.5 [facility] Comment on above: result calledat 1017 on 01/14/23 Alanine aminotransferase [En zymatic activity/volume] in Serum or PlasmaOrdered By: Chaitanya Luna on 01-14-2023 ALT [Catalytic activity/Vol] 13 U/L 7-52 [facility] Albumin [Mass/volume] in Ser um or Plasma by Bromocresol green (BCG) dye binding methoOrdered By: Chaitanya Luna on 01-14-2023 Albumin BCG dye [Mass/Vol] 4.3 g/dL 3.5-5.7 [facility] Alkaline phosphatase [Enzyma tic activity/volume] in Serum or PlasmaOrdered By: Chaitanya Luna on 01-14-2023 ALP [Catalytic activity/Vol] 49 U/L 34-104 [facility] Aspartate aminotransferase [ Enzymatic activity/volume] in Serum or PlasmaOrdered By: Chaitanya Luna on 01-14-2023 AST [Catalytic activity/Vol] 16 U/L 13-39 [facility] B-Type Natriuretic Peptideon 01-14-2023 Natriuretic peptide B (Bld) [Mass/Vol] 191.0 pg/mL High 5-100 [facility] Comment on above: Result Comment: PERF ORMED BY: [place] [address] PATHOLOGIST COUNSELOR AID JAYDE CARDOZA M.D. Performed By: #### P T, CBC, CK, CMP, BNP, PTT, HS TROP #### [address] Basophils Auto (Bld) [#/Vol] Ordered By: Chaitanya Luna on 01-14-2023 Basophils (Bld) [#/Vol] 0.0 10*3/uL 0.0-0.2 [facility] Basophils/100 WBC Auto (Bld) Ordered By: Chaitanya Luna on 01-14-2023 Basophils/100 WBC (Bld) 0.7 % . [facility] Bilirubin.total [Mass/volume ] in Serum or PlasmaOrdered By: Chaitanya Luna on 01-14-2023 Bilirubin [Mass/Vol] 0.7 mg/dL 0.3-1.0 [facility] Calcium [Mass/volume] in Ser um or PlasmaOrdered By: Chaitanya Luna on 01-14-2023 Calcium [Mass/Vol] 8.7 mg/dL 8.6-10.3 [facility] Carbon dioxide, total [Moles /volume] in Serum or PlasmaOrdered By: Chaitanya Luna on 01-14-2023 CO2 [Moles/Vol] 21.9 mmol/L 21.0-31.0 [facility] Chloride [Moles/volume] in S katiana or PlasmaOrdered By: Chaitanya Luna on 01-14-2023 Chloride [Moles/Vol] 107 mmol/L 98-107 [facility] Complete Blood Count Auto Di ffon 01-14-2023 Basophils (Bld) [#/Vol] 0.0 10*3/uL Normal 0.0-0.2 [facility] Comment on above: Result Comment: PERF ORMED BY: [place] [address] PATHOLOGIST COUNSELOR AID JAYDE CARDOZA M.D. Performed By: #### P T, CBC, CK, CMP, BNP, PTT, HS TROP #### [facility] [address] Basophils/100 WBC (Bld) 0.7 % Normal . [facility] Comment on above: Performed By: #### P T, CBC, CK, CMP, BNP, PTT, HS TROP #### [facility] [address] Eosinophils (Bld) [#/Vol] 0.2 10*3/uL Normal 0.0-0.45 [facility] Comment on above: Performed By: #### P T, CBC, CK, CMP, BNP, PTT, HS TROP #### [address] Eosinophils/100 WBC (Bld) 3.6 % Normal . [facility] Comment on above: Performed By: #### P T, CBC, CK, CMP, BNP, PTT, HS TROP #### [address] Erythrocyte distribution width (RBC) [Ratio] 13.4 % Normal 11.9-15.3 [facility] Comment on above: Performed By: #### P T, CBC, CK, CMP, BNP, PTT, HS TROP #### [address] Hematocrit (Bld) [Volume fraction] 33.5 % Low 34.0-46.4 [facility] Comment on above: Performed By: #### P T, CBC, CK, CMP, BNP, PTT, HS TROP #### [address] Hemoglobin (Bld) [Mass/Vol] 11.4 g/dL Low 11.8-15.4 [facility] Comment on above: Performed By: #### P T, CBC, CK, CMP, BNP, PTT, HS TROP #### [address] Lymphocytes (Bld) [#/Vol] 2.1 10*3/uL Normal 1.00-4.8 [facility] Comment on above: Performed By: #### P T, CBC, CK, CMP, BNP, PTT, HS TROP #### [address] Lymphocytes/100 WBC (Bld) 35.4 % Normal . [facility] Comment on above: Performed By: #### P T, CBC, CK, CMP, BNP, PTT, HS TROP #### [address] MCH (RBC) [Entitic mass] 31.4 pg Normal 24.7-34.3 [facility] Comment on above: Performed By: #### P T, CBC, CK, CMP, BNP, PTT, HS TROP #### [address] MCV (RBC) [Entitic vol] 92.1 fL Normal 80-100 [facility] Comment on above: Performed By: #### P T, CBC, CK, CMP, BNP, PTT, HS TROP #### [address] Mean Corpuscular HGB Conc 34.1 g/dL Normal 32.0-35.0 [facility] Comment on above: Performed By: #### P T, CBC, CK, CMP, BNP, PTT, HS TROP #### [address] Monocytes (Bld) [#/Vol] 0.5 10*3/uL Normal 0.0-0.8 [facility] Comment on above: Performed By: #### P T, CBC, CK, CMP, BNP, PTT, HS TROP #### [address] Monocytes/100 WBC (Bld) 17.24 % Normal 0.00-20.00 [facility] Comment on above: Performed By: #### P T, CBC, CK, CMP, BNP, PTT, HS TROP #### [address] Monocytes/100 WBC (Bld) 8.9 % Normal . [facility] Comment on above: Performed By: #### P T, CBC, CK, CMP, BNP, PTT, HS TROP #### [address] Neutrophils (Bld) [#/Vol] 3.1 10*3/uL Normal 1.8-7.7 [facility] Comment on above: Performed By: #### P T, CBC, CK, CMP, BNP, PTT, HS TROP #### [address] Neutrophils/100 WBC (Bld) 51.4 % Normal . [facility] Comment on above: Performed By: #### P T, CBC, CK, CMP, BNP, PTT, HS TROP #### [facility] [address] NRBC% 0.1 /100{WBC} Normal 0-0.5 [facility] Comment on above: Performed By: #### P T, CBC, CK, CMP, BNP, PTT, HS TROP #### [facility] [address] Platelet mean volume (Bld) [Entitic vol] 8.3 fL Normal 6.3-10.7 [facility] Comment on above: Performed By: #### P T, CBC, CK, CMP, BNP, PTT, HS TROP #### [address] Platelets (Bld) [#/Vol] 183 10*3/uL Normal 150-450 [facility] Comment on above: Performed By: #### P T, CBC, CK, CMP, BNP, PTT, HS TROP #### [address] RBC (Bld) [#/Vol] 3.64 10*6/uL Normal 3.60-5.00 [facility] Comment on above: Performed By: #### P T, CBC, CK, CMP, BNP, PTT, HS TROP #### [address] WBC (Bld) [#/Vol] 5.9 10*3/uL Normal 3.8-11.6 [facility] Comment on above: Performed By: #### P T, CBC, CK, CMP, BNP, PTT, HS TROP #### [address] Comprehensive Metabolic Pane gabriel 01-14-2023 Albumin [Mass/Vol] 4.3 g/dL Normal 3.5-5.7 [facility] Comment on above: Performed By: #### P T, CBC, CK, CMP, BNP, PTT, HS TROP #### [address] Albumin/Globulin [Mass ratio] 2.0 {ratio} Normal [facility] Comment on above: Performed By: #### P T, CBC, CK, CMP, BNP, PTT, HS TROP #### [facility] [address] [place] [address] ALP [Catalytic activity/Vol] 49 U/L Normal 34-104 [facility] Comment on above: Performed By: #### P T, CBC, CK, CMP, BNP, PTT, HS TROP #### [facility] [address] ALT [Catalytic activity/Vol] 13 U/L Normal 7-52 [facility] Comment on above: Performed By: #### P T, CBC, CK, CMP, BNP, PTT, HS TROP #### [address] Anion gap [Moles/Vol] 15.2 mmol/L High 6.0-15.0 [facility] Comment on above: Performed By: #### P T, CBC, CK, CMP, BNP, PTT, HS TROP #### [facility] [address] [place] [address] AST [Catalytic activity/Vol] 16 U/L Normal 13-39 [facility] Comment on above: Performed By: #### P T, CBC, CK, CMP, BNP, PTT, HS TROP #### [facility] [address] [place] [address] Bilirubin [Mass/Vol] 0.7 mg/dL Normal 0.3-1.0 [facility] Comment on above: Performed By: #### P T, CBC, CK, CMP, BNP, PTT, HS TROP #### [facility] [address] [place] [address] Calcium [Mass/Vol] 8.7 mg/dL Normal 8.6-10.3 [facility] Comment on above: Performed By: #### P T, CBC, CK, CMP, BNP, PTT, HS TROP #### [facility] [address] [place] [address] Chloride [Moles/Vol] 107 mmol/L Normal 98-107 [facility] Comment on above: Performed By: #### P T, CBC, CK, CMP, BNP, PTT, HS TROP #### [address] CO2 [Moles/Vol] 21.9 mmol/L Normal 21.0-31.0 [facility] Comment on above: Performed By: #### P T, CBC, CK, CMP, BNP, PTT, HS TROP #### [facility] [address] Creatinine [Mass/Vol] 0.86 mg/dL Normal 0.60-1.20 [facility] Comment on above: Performed By: #### P T, CBC, CK, CMP, BNP, PTT, HS TROP #### [address] Creatinine Clr Calc Pharmacy 49.92 [facility] Comment on above: Result Comment: PERF ORMED BY: [place] [address] PATHOLOGIST COUNSELOR AID JAYDE CARDOZA M.D. Performed By: #### P T, CBC, CK, CMP, BNP, PTT, HS TROP #### [address] GFR/1.73 sq M.predicted MDRD (S/P/Bld) [Vol rate/Area] mL/min/{1.73_m2} [facility] Comment on above: Performed By: #### P T, CBC, CK, CMP, BNP, PTT, HS TROP #### [address] Globulin (S) [Mass/Vol] 2.1 g/dL [facility] Comment on above: Performed By: #### P T, CBC, CK, CMP, BNP, PTT, HS TROP #### [address] Glucose [Mass/Vol] 132 mg/dL High 70-100 [facility] Comment on above: Result Comment: [facility] Glucose Reference Range is dependent on time and content of last meal. Glucose of more than 200 mg/dL in a nonstressed, ambulatory subject supports the diagnosis of Diabetes Mellitus. ADA recommended reference range Performed By: #### P T, CBC, CK, CMP, BNP, PTT, HS TROP #### [address] Potassium [Moles/Vol] 3.1 mmol/L Low 3.5-5.1 [facility] Comment on above: Performed By: #### P T, CBC, CK, CMP, BNP, PTT, HS TROP #### [address] Protein [Mass/Vol] 6.4 g/dL Normal 6.4-8.9 [facility] Comment on above: Performed By: #### P T, CBC, CK, CMP, BNP, PTT, HS TROP #### [address] Sodium [Moles/Vol] 141 mmol/L Normal 136-145 [facility] Comment on above: Performed By: #### P T, CBC, CK, CMP, BNP, PTT, HS TROP #### [address] Urea nitrogen [Mass/Vol] 20 mg/dL Normal 7-25 [facility] Comment on above: Performed By: #### P T, CBC, CK, CMP, BNP, PTT, HS TROP #### [place] [address] [place] Creatine Kinaseon 01-14-2023 CK [Catalytic activity/Vol] 119 U/L Normal 30-223 [facility] Comment on above: Performed By: #### P T, CBC, CK, CMP, BNP, PTT, HS TROP #### [place] [address] [place] Creatine kinase [Enzymatic a ctivity/volume] in Serum or PlasmaOrdered By: Chaitanya Luna on 01-14-2023 CK [Catalytic activity/Vol] 119 U/L 30-223 [facility] Creatinine [Mass/volume] in Serum or PlasmaOrdered By: Chaitanya Luna on 01-14-2023 Creatinine [Mass/Vol] 0.86 mg/dL 0.60-1.20 [facility] ECG 12 lead ECGon 01-14-2023 ECG 12 lead ECG [facility] Main [place] [id number] Electrocardiograph Report Signed Patient: Atiya Jha MR#: [id number] : 1940 Acct:[id number] Age/Sex: 82 / F ADM Date: 01/14/23 Loc: 4C Room: [address] [place] [address] Type: ADM IN Attending Dr: Allan Marroquin DO Ordering Provider: Allan Marroquin DO Date of Service: 01/14/23 ECG/ECG 12 lead ECG: Post Angioplasty Procedure Copies to: Test Reason : Blood Pressure : / mmHG Vent. Rate : 082 BPM Atrial Rate : 082 BPM P-R Int : 208 ms QRS Dur : 090 ms QT Int : 426 ms P-R-T Axes : 076 076 059 degrees QTc Int : 497 ms Normal sinus rhythm Cannot rule out Inferior infarct , new Anteroseptal infarct , possibly acute ACUTE UT Abnormal ECG When compared with ECG of 14-JAN-2023 09:10, premature atrial complexes are no longer present Acute Inferior infarct is now present Confirmed by [facility] SAMS [id number] on 01/15/2023 11:41:01 AM Referred By: Electronically Signed By:KOKO WU MD [facility] Transcribed By: MUS Signed By Darryl Wu MD 01/15/23 1141 [facility] ECG 12 lead ECG [facility] Main [address] [address] Electrocardiograph Report Signed Patient: Atiya Jha MR#: [id number] : 1940 Acct:[id number] Age/Sex: 82 / F ADM Date: 01/14/23 Loc: 4C Room: [address] [place] [address] Type: REG SDC Attending Dr: Allan Marroquin DO Ordering Provider: Chaitanya Luna DO Date of Service: 01/14/23 ECG/ECG 12 lead ECG: STEMI/CHEST PAIN Copies to: Test Reason : Blood Pressure : 204/094 mmHG Vent. Rate : 082 BPM Atrial Rate : 082 BPM P-R Int : 174 ms QRS Dur : 086 ms QT Int : 430 ms P-R-T Axes : 064 038 054 degrees QTc Int : 502 ms Sinus rhythm with premature atrial complexes ST elevation, consider lateral injury or acute infarct Prolonged QT ACUTE UT / STEMI Abnormal ECG Confirmed by Chaitanya LUNA DO ([id number]) on 01/14/2023 10:50:51 AM Referred By: Electronically Signed By:Chaitanya LUNA DO Transcribed By: MUS Signed By Chaitanya Luna DO 0 01/14/[address] [facility] Eosinophils Auto (Bld) [#/Vo l]Ordered By: Chaitanya Luna on 01-14-2023 Eosinophils (Bld) [#/Vol] 0.2 10*3/uL 0.0-0.45 [facility] Eosinophils/100 WBC Auto (Bl d)Ordered By: Chaitanya Luna on 01-14-2023 Eosinophils/100 WBC (Bld) 3.6 % . [facility] Erythrocyte distribution wid th Auto (RBC) [Ratio]Ordered By: Chaitanya Luna on 01-14-2023 Erythrocyte distribution width (RBC) [Ratio] 13.4 % 11.9-15.3 [facility] Globulin Calc (S) [Mass/Vol] Ordered By: Chaitanya Luna on 01-14-2023 Globulin (S) [Mass/Vol] 2.1 g/dL [facility] Glucose Poct Glucometerson 0 01-14-2023 Glucose [Mass/Vol] 112 mg/dL Normal [facility] Comment on above: Result Comment: [facility] Glucose Reference Range is dependent on time and content of last meal. Glucose of more than 200 mg/dL in a nonstressed, ambulatory subject supports the diagnosis of Diabetes Mellitus. PERFORMED BY: [place] [address] PATHOLOGIST COUNSELOR AID JAYDE CARDOZA M.D. Performed By: #### H S TROP #### [address] Glucose [Mass/volume] in Ser um or PlasmaOrdered By: Chaitanya Luna on 01-14-2023 Glucose [Mass/Vol] 132 mg/dL 70-100 [facility] Comment on above: ADA recommended refe rence rangeRandom Glucose Reference Range is dependent on time and content of last meal. Glucose of more than 200 mg/dL in a nonstressed, ambulatory subject supports the diagnosis of Diabetes Mellitus. Hematocrit Auto (Bld) [Volum e fraction]Ordered By: Chaitanya Luna on 01-14-2023 Hematocrit (Bld) [Volume fraction] 33.5 % 34.0-46.4 [facility] Hemoglobin [Mass/volume] in BloodOrdered By: Chaitanya Luna on 01-14-2023 Hemoglobin (Bld) [Mass/Vol] 11.4 g/dL 11.8-15.4 [facility] Laboratory - CoagulationOrde red By: Chaitanya Luna on 01-14-2023 PT Coag (PPP) [Time] 11.9 s 9.0-12.9 [facility] Leukocytes [#/volume] correc law for nucleated erythrocytes in Blood by Automated counOrdered By: Chaitanya Luna on 01-14-2023 WBC corrected for nucl RBC Auto (Bld) [#/Vol] 5.9 10*3/uL 3.8-11.6 [facility] Lymphocytes Auto (Bld) [#/Vo l]Ordered By: Chaitanya Luna on 01-14-2023 Lymphocytes (Bld) [#/Vol] 2.1 10*3/uL 1.00-4.8 [facility] Lymphocytes/100 WBC Auto (Bl d)Ordered By: Chaitanya Luna on 01-14-2023 Lymphocytes/100 WBC (Bld) 35.4 % . [facility] MCH Auto (RBC) [Entitic mass ]Ordered By: Chaitanya Luna on 01-14-2023 MCH (RBC) [Entitic mass] 31.4 pg 24.7-34.3 [facility] MCHC Auto (RBC) [Mass/Vol]Or dered By: Chaitanya Luna on 01-14-2023 MCHC (RBC) [Mass/Vol] 34.1 g/dL 32.0-35.0 [facility] MCV Auto (RBC) [Entitic vol] Ordered By: Chaitanya Luna on 01-14-2023 MCV (RBC) [Entitic vol] 92.1 fL 80-100 [facility] Monocyte distribution width [Entitic volume] in Blood by AutomatedOrdered By: Chaitanya Luna on 01-14-2023 Monocyte distribution width Auto (Bld) [Entitic vol] 17.24 % 0.00-20.00 [facility] Monocytes Auto (Bld) [#/Vol] Ordered By: Chaitanya Luna on 01-14-2023 Monocytes (Bld) [#/Vol] 0.5 10*3/uL 0.0-0.8 [facility] Monocytes/100 WBC Auto (Bld) Ordered By: Chaitanya Luna on 01-14-2023 Monocytes/100 WBC (Bld) 8.9 % . [facility] Natriuretic peptide B [Mass/ Vol]Ordered By: Chaitanya Luna on 01-14-2023 Natriuretic peptide B (Bld) [Mass/Vol] 191.0 pg/mL 5-100 [facility] Neutrophils Auto (Bld) [#/Vo l]Ordered By: Chaitanya Luna on 01-14-2023 Neutrophils (Bld) [#/Vol] 3.1 10*3/uL 1.8-7.7 [facility] Neutrophils/100 WBC Auto (Bl d)Ordered By: Chaitanya Luna on 01-14-2023 Neutrophils/100 WBC (Bld) 51.4 % . [facility] No Panel InformationOrdered By: Chaitanya Luna on 01-14-2023 Estimated GFR (CKD-EPI) > 60.0 mL/Min [facility] Creatinine Clearance (Chem 49.92 [facility] Nucleated erythrocytes [Pres ence] in Blood by Automated countOrdered By: Chaitanya Luna on 01-14-2023 Nucleated RBC Auto Ql (Bld) 0.1 /100{WBC} 0-0.5 [facility] Partial Thromboplastin Timeo n 01-14-2023 aPTT Coag (Bld) [Time] 274.4 s Off scale high 25.1-36.5 [facility] Comment on above: Result Comment: resu lt called at 1017 on 01/14/23 PERFORMED BY: [place] [address] PATHOLOGIST COUNSELOR AID JAYDE CARDOZA M.D. Performed By: #### H S TROP #### [address] Platelet mean volume Auto (B ld) [Entitic vol]Ordered By: Chaitanya Luna on 01-14-2023 Platelet mean volume (Bld) [Entitic vol] 8.3 fL 6.3-10.7 [facility] Platelet poor plasma interna tional normalized ratio (INR) by coagulation assay (relatOrdered By: Chaitanya Luna on 01-14-2023 INR Coag (PPP) [Relative time] 1.0 {INR} [facility] Comment on above: INR Therapeutic Rang e A) Pre- and Peroperative OAT started two weeks before surgery. NOT HIP SURGERY: 1.5 - 2.5 HIP SURGERY: 2 - 3B) Primary and secondary prevention of venous THROMBOSIS: 2 - 3C) Active venous thrombosis, pulmonary embolismand prevention of recurrent venous thrombosis: 2 - 3D) Prevention of arterial thromboembolismincluding patients with mechanical heart valves: 3 - 4.5 Platelets Auto (Bld) [#/Vol] Ordered By: Chaitanya Luna on 01-14-2023 Platelets (Bld) [#/Vol] 183 10*3/uL 150-450 [facility] Potassium [Moles/volume] in Serum or PlasmaOrdered By: Chaitanya Luna on 01-14-2023 Potassium [Moles/Vol] 3.1 mmol/L 3.5-5.1 [facility] Protein [Mass/volume] in Ser um or PlasmaOrdered By: Chaitanya Luna on 01-14-2023 Protein [Mass/Vol] 6.4 g/dL 6.4-8.9 [facility] Prothrombin Time INRon 01-14 INR Coag (PPP) [Relative time] 1.0 {INR} Normal [facility] Comment on above: Result Comment: INR Therapeutic Range A) Pre- and Peroperative OAT started two weeks before surgery. NOT HIP SURGERY: 1.5 - 2.5 HIP SURGERY: 2 - 3 B) Primary and secondary prevention of venous THROMBOSIS: 2 - 3 C) Active venous thrombosis, pulmonary embolism and prevention of recurrent venous thrombosis: 2 - 3 D) Prevention of arterial thromboembolism including patients with mechanical heart valves: 3 - 4.5 Performed By: #### P T, CBC, CK, CMP, BNP, PTT, HS TROP #### [address] PT Coag (PPP) [Time] 11.9 s Normal 9.0-12.9 [facility] Comment on above: Performed By: #### P T, CBC, CK, CMP, BNP, PTT, HS TROP #### [address] RBC Auto (Bld) [#/Vol]Ordere d By: Chaitanya Luna on 01-14-2023 RBC (Bld) [#/Vol] 3.64 10*6/uL 3.60-5.00 [facility] Serum or plasma albumin/glob ulin mass ratioOrdered By: Chaitanya Luna on 01-14-2023 Albumin/Globulin [Mass ratio] 2.0 {ratio} [facility] Serum or plasma anion gap de terminationOrdered By: Chaitanya Luna on 01-14-2023 Anion gap [Moles/Vol] 15.2 mmol/L 6.0-15.0 [facility] Sodium [Moles/volume] in Ser um or PlasmaOrdered By: Chaitanya Luna on 01-14-2023 Sodium [Moles/Vol] 141 mmol/L 136-145 [facility] Troponin I High Sensitivityo n 01-14-2023 Troponin I High Sensitivity 52341.6 pg/mL Off scale high 0.0-15.0 [facility] Comment on above: Result Comment: Crit ical Result : Called to and read back by: SEAN WHITTAKER at: 01/14/2023 19:32:36 by:[id number] PERFORMED BY: [place] [address] PATHOLOGIST COUNSELOR AID JAYDE CARDOZA M.D. Performed By: #### H S TROP #### [address] Troponin I High Sensitivity 43570.8 pg/mL Off scale high 0.0-15.0 [facility] Comment on above: Result Comment: Crit ical Result [id number]:[id number] Called to and read back by: LEON TRUJILLO at: 01/14/2023 16:59:03 by:ELIUD PERFORMED BY: [place] [address] PATHOLOGIST COUNSELOR AID JAYDE CARDOZA M.D. Performed By: #### H S TROP #### [address] Troponin I High Sensitivity 22196.0 pg/mL Off scale high 0.0-15.0 [facility] Comment on above: Result Comment: Crit ical Result : Called to and read back by: MORRO TAVAREZ at: 01/14/2023 14:28:25 by:SHONDA PERFORMED BY: [place] [address] PATHOLOGIST COUNSELOR AID JAYDE CARDOZA M.D. Performed By: #### H S TROP #### [facility] [address] [place] [address] Troponin I High Sensitivity 43.4 pg/mL High 0.0-15.0 [facility] Comment on above: Result Comment: PERF ORMED BY: [place] [address] PATHOLOGIST COUNSELOR AID JAYDE CARDOZA M.D. Performed By: #### P T, CBC, CK, CMP, BNP, PTT, HS TROP #### [facility] [address] [place] [address] Troponin I.cardiac [Mass/vol ume] in Serum or Plasma by Detection limit <= 0.01 ng/Ordered By: Chaitanya Luna on 01-14-2023 Troponin I.cardiac DL <= 0.01 ng/mL [Mass/Vol] 43.4 pg/mL 0.0-15.0 [facility] Urea nitrogen [Mass/volume] in Serum or PlasmaOrdered By: Chaitanya Luna on 01-14-2023 Urea nitrogen [Mass/Vol] 20 mg/dL 7-25 [facility] WBC Auto (Bld) [#/Vol]Ordere d By: Chaitanya Luna on 01-14-2023 WBC (Bld) [#/Vol] 5.9 10*3/uL 3.8-11.6 [facility] LIPID PROFILEon 12-03-2022 CHOL-HDL RATIO NORM SEE BELOW Normal [facility] Comment on above: Result Comment: 3.3 - 4.4 LOW RISK 4.4 - 7.1 AVERAGE RISK 7.1 - 11.0 MODERATE RISK >11.0 HIGH RISK Performed By: #### B MP, LIPID, AST #### [facility] [address] [place] [address] [address] Cynthia Arroyo Cholesterol [Mass/Vol] 167 mg/dL Normal <=200 [facility] Comment on above: Performed By: #### B MP, LIPID, AST #### [facility] [address] [place] [address] [address] Cynthia Arroyo Cholesterol in HDL [Mass/Vol] 40 mg/dL Normal 40-60 [facility] Comment on above: Performed By: #### B MP, LIPID, AST #### [facility] [address] [place] [address] [address] Cynthia Arroyo Cholesterol in LDL [Mass/Vol] 101.8 mg/dL Normal [facility] Comment on above: Performed By: #### B MP, LIPID, AST #### [facility] [address] [place] [address] [address] Cynthia Arroyo Cholesterol.total/Chol esterol in HDL [Mass ratio] 4.2 {ratio} Normal [facility] Comment on above: Performed By: #### B MP, LIPID, AST #### [facility] [address] [place] [address] [address] Cynthia Arroyo HDL NORMAL > or = 60 mg/dl - LO W CARDIOVASCULAR RISK <40 mg/dl - HIGH CARDIOVASCULAR RISK Normal [facility] Comment on above: Performed By: #### B MP, LIPID, AST #### [facility] [address] [address] [address] Cynthia Arroyo LDL CALC NORMAL SEE BELOW Normal [facility] Comment on above: Result Comment: <100 mg/dl OPTIMAL 100 - 129 mg/dl NEAR OR ABOVE OPTIMAL 130 - 159 mg/dl BORDERLINE HIGH 160 - 189 mg/dl HIGH >190 mg/dl VERY HIGH Performed By: #### B MP, LIPID, AST #### [facility] [address] [address] [address] Cynthia Arroyo Triglyceride [Mass/Vol] 126 mg/dL Normal <=150 [facility] Comment on above: Performed By: #### B MP, LIPID, AST #### [facility] [address] [address] [address] Cynthia Arroyo VLDL CALC 25.2 mg/dL Normal [facility] Comment on above: Performed By: #### B MP, LIPID, AST #### [facility] [address] [address] [address] Cynthia Arroyo PROF CHEM 8 (BAS METB)on Anion gap [Moles/Vol] 13.1 mmol/L Normal [facility] Comment on above: Performed By: #### B MP, LIPID, AST #### [facility] [address] [address] [address] Cynthia Arroyo Calcium [Mass/Vol] 9.1 mg/dL Normal 8.5-10.1 [facility] Comment on above: Performed By: #### B MP, LIPID, AST #### [facility] [address] [address] [address] Cynthia Arroyo Chloride [Moles/Vol] 102 mmol/L Normal 98-107 [facility] Comment on above: Performed By: #### B MP, LIPID, AST #### [facility] [address] [address] [address] Cynthia Arroyo CO2 [Moles/Vol] 28.3 mmol/L Normal 21.0-32.0 [facility] Comment on above: Performed By: #### B MP, LIPID, AST #### [facility] [address] [address] [address] Cynthia Arroyo Creatinine [Mass/Vol] 1.04 mg/dL Critically high 0.55-1.02 [facility] Comment on above: Performed By: #### B MP, LIPID, AST #### [facility] [address] [address] [address] Cynthia Arroyo EGFR-AF EGYPTIAN >60 Normal >=60 [facility] Comment on above: Performed By: #### B MP, LIPID, AST #### [facility] [address] [address] [address] Cynthia Arroyo EGFR-NON AF EGYPTIAN 51 mL/min/1.73m2 Critically low >=60 [facility] Comment on above: Performed By: #### B MP, LIPID, AST #### [facility] [address] [address] [address] Cynthia Arroyo Glucose [Mass/Vol] 94 mg/dL Normal 74-106 [facility] Comment on above: Performed By: #### B MP, LIPID, AST #### [facility] [address] [address] [address] Cynthia Arroyo Potassium [Moles/Vol] 4.4 mmol/L Normal 3.5-5.1 [facility] Comment on above: Performed By: #### B MP, LIPID, AST #### [facility] [address] [place] [address] Dr. Cynthia Arroyo Sodium [Moles/Vol] 139 mmol/L Normal 136-145 [facility] Comment on above: Performed By: #### B MP, LIPID, AST #### [facility] [address] [place] [address] Dr. Cynthia Arroyo Urea nitrogen [Mass/Vol] 18.0 mg/dL Normal 7.0-18.0 [facility] Comment on above: Performed By: #### B MP, LIPID, AST #### [facility] [address] [place] [address] Dr. Cynthia Arroyo Urea nitrogen/Creatinine [Mass ratio] 17.3 mg/mg Normal [facility] Comment on above: Performed By: #### B MP, LIPID, AST #### [facility] [address] [address] [address] Cynthia Arroyo SGOTon 12-03-2022 AST [Catalytic activity/Vol] 13 U/L Critically low 15- [facility] Comment on above: Performed By: #### B MP, LIPID, AST #### [facility] [address] [address] [address] Cynthia Arroyo Urinalysis - DIPSTICKon 09-03 Appearance (U) clear [employer] Other Bilirubin Ql (U) small [place] Other Color (U) opal [employer] Other Glucose Ql (U) Negative [employer] Other Hemoglobin Ql (U) Negative [employer] Other Ketones Ql (U) Negative [employer] Other Leukocyte esterase Test strip Ql (U) trace [employer] Other Nitrite Ql (U) Negative [employer] Other pH (U) 5 [pH] [employer] Other Protein Ql (U) Negative [employer] Other Specific gravity (U) [Rel density] 1.010 [employer] Other Urobilinogen (U) [Mass/Vol] 0.2 mg/dL [employer] Other Urinalysis - DIPSTICK [employer] Other Office Visit (Cardiology)on 06-04-2022 Follow-up visit Diagnoses/Problems Assessed History of PTCA (V45.82) (Z98.61) Hyperlipidemia (272.4) (E78.5) ASCVD (arteriosclerotic cardiovascular disease) (429.2,440.9) (I25.10) Essential hypertension, benign (401.1) (I10) Never a smoker Overweight with body mass index (BMI) of 26 to 26.9 in adult (278.02,V85.22) (E66.3,Z68.26) Orders ASCVD (arteriosclerotic cardiovascular disease), Essential hypertension, benign, Hyperlipidemia AST; Status:Active; Requested for:08Dec2022; Basic Metabolic Panel; Status:Active; Requested for:08Dec2022; Lipid Panel; Status:Active; Requested for:08Dec2022; ASCVD (arteriosclerotic cardiovascular disease), History of PTCA Renew: Aspirin EC 81 MG Oral Tablet Delayed Release; TAKE 1 TABLET DAILY DIRECTED ASCVD (arteriosclerotic cardiovascular disease), Hyperlipidemia Renew: Pravastatin Sodium 40 MG Oral Tablet; TAKE 1 TABLET DAILY Overweight with body mass index (BMI) of 26 to 26.9 in adult Healthy Weight Tips; Status:Complete; Done: 04Jun2022 Some eating tips that can help you lose weight.; Status:Complete; Done: 04Jun2022 SocHx: Never a smoker Tobacco Use Screening; Status:Complete; Done: 04Jun2022 Patient Instructions Please bring all medicines, vitamins, and herbal supplements with you when you come to the office. Prescriptions will not be filled unless you are compliant with your follow up appointments or have a follow up appointment scheduled as per instruction of your physician. Refills should be requested at the time of your visit. Follow up in 1 year. Chief Complaint ATIYA JHA is being seen for a 6 month follow-up of. History of Present Illness Patient returns in follow-up of problems as noted. She doing well. She has no other symptoms of coronary disease that preceded her original diagnosis and subsequent PTCA. Control and/or management of risk factors including essential hypertension and hyperlipidemia is reviewed and control is felt to be adequate and appropriate. As before the merits of a modest diet and weight loss were advocated. Current Meds Medication NameInstruction Aspirin EC 81 MG Oral Tablet Delayed ReleaseTAKE 1 TABLET DAILY DIRECTED. Atenolol 25 MG Oral TabletTAKE 1 TABLET DAILY. Pravachol 40 MG TABSTAKE 1 TABLET DAILY. PriLOSEC 20 MG CPDR1/2 capsule daily Telmisartan-HCTZ 80-12.5 MG Oral TabletTAKE 1 TABLET DAILY. Allergies Medication No Known Drug Allergies Recorded By: Malika Rodríguez; 06/04/2022 8:53:04 AM Social History Problems Consumes alcohol occasionally (V49.89) (Z78.9) Daily caffeine consumption coffee 1-2 cups Never a smoker No illicit drug use Review of Systems Constitutional: not feeling tired. Eyes: no eyesight problems. ENT: no hearing loss and no nosebleeds. Cardiovascular: no intermittent leg claudication and as noted in HPI. Respiratory: no chronic cough and no shortness of breath. Gastrointestinal: no change in bowel habits and no blood in stools. Genitourinary: no urinary frequency. Skin: no skin rashes. Neurological: no seizures and no frequent falls. Psychiatric: no depression and not suicidal. All other systems have been reviewed and are negative for complaint. Vitals Vital Signs Recorded: 04Jun2022 05:32PMRecorded: 04Jun2022 03:21PM Heart Rate72, R Mjqpnb18, L Radial Vfuvekjy976, RUE, Ivsvsab921, Sitting Eoxrnbwvx57, RUE, Ybamaqh56, Sitting Height5 ft 5 in5 ft 5 in Xlscqa901 lb 157 lb BMI Vjemyospqq23.13 kg/m226.13 kg/m2 BSA Calculated1.781.78 Tobacco Useb) No PHQ-2 #1. Over the last 2 weeks have you felt down, depressed or hopeless? (If yes, answer PHQ-9 below)No PHQ-2 #2. Over the last 2 weeks have you felt little interest or pleasure in doing things? (If yes, answer PHQ-9 below)No Falls Screening (Age 18+)a) No falls within the last year Physical Exam Constitutional: alert and in no acute distress. Eyes: no erythema, swelling or discharge from the eye . Neck: neck is supple, symmetric, trachea midline, no masses and no thyromegaly . Pulmonary: no increased work of breathing or signs of respiratory distress and lungs clear to auscultation. Cardiovascular: carotid pulses 2+ bilaterally with no bruit , JVP was normal, no thrills , regular rhythm, normal S1 and S2, no murmurs , pedal pulses 2+ bilaterally and no edema . Abdomen: abdomen non-tender, no masses and no hepatomegaly . Skin: skin warm and dry, normal skin turgor . Psychiatric judgment and insight is normal and oriented to person, place and time . Signatures Electronically signed by : Darryl Wu MD; Jun 04 2022 5:33PM EST (Author) Normal [employer] Tobacco Screening.on 022 Adult depression screening assessment No [facility] DO Work Phone: Fall risk assessment a) [facility] within the last year [facility] Work Phone: Tobacco use status [facility] b) No [facility] DO Work Phone: MG MAMM SCREEN 3D GLADIS CADon 05-21-2022 MG MAMM SCREEN 3D GLADIS CAD Patient: ATIYA JHA Exam Date: 05/21/2022 : 1940 Gender:F Ordering : DR EDER LAURENT . Admission #: [id number] Family : Order #: [id number] CLICK HERE TO VIEW EXAM RADIOLOGY REPORT PROCEDURE: MAMMOGRAM SCREENING 3D BILATERAL CAD COMPARISON: MG MAMM SCREEN GLADIS W CAD, 05/15/2017. MG MAMM GLADIS SCRN W CAD DIG, 05/14/2016. INDICATIONS: Screening mammography Calculator Name NCI Breast Cancer Risk Assessment Tool 5 Year Breast Cancer Risk 1.30% Lifetime Breast Cancer Risk 1.60% Personal Breast Cancer No Personal Ovarian Cancer No Treatments None Family Cancers None LOCATION: [facility] BREAST COMPOSITION: Heterogeneously dense,which may obscure small masses. FINDINGS: DIAGNOSTIC CATEGORY 2--BENIGN FINDING: RIGHT BREAST: No significant suspicious finding. Scattered benign-appearing calcifications are present. No significant change has occurred. LEFT BREAST: No significant suspicious finding. Scattered benign-appearing calcifications are present. No significant change has occurred. RECOMMENDATIONS: ROUTINE MAMMOGRAM AND CLINICAL EVALUATION IN 12 MONTHS. PLEASE NOTE: A NORMAL MAMMOGRAM DOES NOT EXCLUDE THE POSSIBILITY OF BREAST CANCER. A CLINICALLY SUSPICIOUS PALPABLE LUMP SHOULD BE BIOPSIED. Dictated by: Yoselin Travis M.D. on 05/21/2022 at 15:52 Approved by: Yoselin Travis M.D. on 05/21/2022 at 15:56 Normal [facility] XR DEXA BONE DENSITYon 05-21 XR DEXA BONE DENSITY EXAMINATION: XR DEX A BONE DENSITY, 05/21/2022 10:10 AM EDT HISTORY: Menopause present COMPARISON: DEXA bone densitometry 10/03/2014 TECHNIQUE: Dual-energy X-ray absorptiometry (DEXA) bone density study performed for the axial skeleton. FINDINGS: SPINE ANALYSIS: Average bone mineral density is 1.447 g/cm2. T-score (standard deviation relative to young adult mean): 2.2 . -0.8% change since prior study. FOREARM ANALYSIS: Lowest bone mineral density is within the radius, 0.409 g/cm2. T-score (standard deviation relative to young adult mean): -4.3 . Not previously evaluated. IMPRESSION: World Thomas Organization Classification: Osteoporosis - High Fracture Risk Electronically authenticated by: YOSELIN TRAVIS Date: 2022-05-21 19:19 Normal [facility] PAP ACOG PANEL 2: 30 to 65on 05-15-2022 . . Normal [facility] Comment on above: Result Comment: Perf ormed at: [facility] Performed By: #### [id number] #### [facility] [address] [place] [address] Dr. Cynthia Arroyo Age Gdln ACOG Testing Comment Normal [facility] Comment on above: Result Comment: <21 or >65 or no age provided Performed By: #### [id number] #### [facility] [address] [place] [address] Dr. Cynthia Arroyo DIAGNOSIS: Comment Normal [facility] Comment on above: Result Comment: NEGA TIVE FOR INTRAEPITHELIAL LESION OR MALIGNANCY. CELLULAR CHANGES ASSOCIATED WITH ATROPHY ARE PRESENT. THIS SPECIMEN WAS RESCREENED PART OF OUR HEALTHCARE CONSULTING MANAGER PROGRAM. Performed at: [facility] Performed By: #### [id number] #### [facility] [address] [place] [address] Dr. Cynthia Arroyo Methodology: Comment [facility] Comment on above: Result Comment: This liquid based ThinPrep(R) pap test was screened with the use of an image guided system. Performed at: [facility] Performed By: #### [id number] #### [facility] [address] [place] [address] Dr. Cynthia Arroyo Note: Comment [facility] Comment on above: Result Comment: The Pap smear is a screening test designed to aid in the detection of premalignant and malignant conditions of the uterine cervix. It is not a diagnostic procedure and should not be used as the sole means of detecting cervical cancer. Both false-positive and false-negative reports do occur. . Performed at: WB Performed By: #### [id number] #### [facility] [address] [address] [address] Cynthia Arroyo Performed by: Comment Normal [facility] Comment on above: Result Comment: Jimbo Olivares, Tile Layer Drainage (ASCP) Performed at: [facility] Performed By: #### [id number] #### [facility] [address] [address] [address] Cynthia Arroyo QC reviewed by: Comment Normal [facility] Comment on above: Result Comment: Lenny Hanks, Tile Layer Drainage (ASCP) Performed at: BA Performed By: #### [id number] #### [facility] [address] [address] [address] Cynthia Arroyo Specimen adequacy: Comment Normal [facility] Comment on above: Result Comment: Sati sfactory for evaluation. Endocervical component may not be distinguished in cases of atrophy. Performed at: BA Performed By: #### [id number] #### [facility] [address] [address] [address] Cynthia Arroyo Vital Signs Date Time Vital Sign Value Performing Clinician Facility 07-02-2023 11:00-0500 Body height 165.1 cm [facility] Other [employer] Other 07-02-2023 11:00-0500 Body mass index (BMI) [Ratio] 25.96 kg/m2 [facility] Other [employer] Other 07-02-2023 11:00-0500 Body weight 70.76 kg [facility] Other [employer] Other 07-02-2023 11:00-0500 Diastolic blood pressure 77 mm[Hg] [facility] Other [employer] Other 07-02-2023 11:00-0500 Respiratory rate 12 /min [employer] Other [employer] Other 07-02-2023 11:00-0500 Systolic blood pressure 128 mm[Hg] Danis Ball Other [employer] Other 06-15-2023 09:14-0500 Body height 165.1 cm Darryl Wu MD Work Phone: [facility] 06-15-2023 09:14-0500 Body mass index (BMI) [Ratio] 25.96 kg/m2 Darryl Wu MD Work Phone: [facility] 06-15-2023 09:14-0500 Body weight 70.76 kg Darryl Wu MD Work Phone: [facility] 06-15-2023 09:14-0500 Diastolic blood pressure 78 mm[Hg] Darryl Wu MD Work Phone: [facility] 06-15-2023 09:14-0500 Heart rate 62 /min Darryl Wu MD Work Phone: [facility] 06-15-2023 09:14-0500 Systolic blood pressure 114 mm[Hg] Darryl Wu MD Work Phone: [facility] 03-16-2023 15:15-0400 Body height 165.1 cm Danis Ball Other [employer] Other 03-16-2023 15:15-0400 Body mass index (BMI) [Ratio] 25.16 kg/m2 Danis Ball Other [employer] Other 03-16-2023 15:15-0400 Body weight 68.58 kg Danis Ball Other [employer] Other 03-16-2023 15:15-0400 Diastolic blood pressure 80 mm[Hg] Danis Ball Other [employer] Other 03-16-2023 15:15-0400 Respiratory rate 12 /min Danis Ball Other [employer] Other 03-16-2023 15:15-0400 Systolic blood pressure 127 mm[Hg] Danis Ball Other [employer] Other 02-27-2023 14:00-0400 Body height 165.1 cm Danis Ball Other [employer] Other 02-27-2023 14:00-0400 Body mass index (BMI) [Ratio] 25.39 kg/m2 Danis Ball Other [employer] Other 02-27-2023 14:00-0400 Body weight 69.22 kg Danis Ball Other [employer] Other 02-27-2023 14:00-0400 Diastolic blood pressure 85 mm[Hg] Danis Ball Other [employer] Other 02-27-2023 14:00-0400 Respiratory rate 12 /min Danis Ball Other [employer] Other 02-27-2023 14:00-0400 Systolic blood pressure 161 mm[Hg] Danis Ball Other [employer] Other 02-05-2023 12:11-0400 Body height 165.1 cm Danis E Ball Work Phone: [facility] [employer] 250 DO Work Phone: 02-05-2023 12:11-0400 Body mass index (BMI) [Ratio] 25.46 kg/m2 Danis E Ball Work Phone: [facility] [employer] 250 DO Work Phone: 02-05-2023 12:11-0400 Body surface area Derived from formula 1.77 m2 Danis E Ball Work Phone: [facility] [employer] 250 DO Work Phone: 02-05-2023 12:11-0400 Body weight 69.4 kg Danis E Ball Work Phone: [facility] [employer] 250 DO Work Phone: 02-05-2023 12:11-0400 Diastolic blood pressure 84 mm[Hg] Danis E Ball Work Phone: [facility] [employer] 250 DO Work Phone: 02-05-2023 12:11-0400 Heart rate 60 /min Danis E Ball Work Phone: [facility] [employer] 250 DO Work Phone: 02-05-2023 12:11-0400 Systolic blood pressure 138 mm[Hg] Danis E Ball Work Phone: [facility] [employer] 250 DO Work Phone: 01-27-2023 10:45-0400 Body height 165.1 cm Danis Ball Other [facility] [employer] Other 01-27-2023 10:45-0400 Body mass index (BMI) [Ratio] 25.49 kg/m2 Danis Ball Other [facility] [employer] Other 01-27-2023 10:45-0400 Body weight 69.49 kg Danis Ball Other [facility] [employer] Other 01-27-2023 10:45-0400 Diastolic blood pressure 70 mm[Hg] Danis Ball Other [facility] [employer] Other 01-27-2023 10:45-0400 Respiratory rate 12 /min Danis Ball Other [employer] Other 01-27-2023 10:45-0400 Systolic blood pressure 103 mm[Hg] Danis Huang Other [facility] [employer] Other 01-16-2023 12:00-0400 Body temperature 97.5 [degF] DO Chaitanya Keister Work Phone: [facility] 01-16-2023 12:00-0400 Diastolic blood pressure 81 mm[Hg] DO Chaitanya Keister Work Phone: [facility] 01-16-2023 12:00-0400 Heart rate 67 /min DO Chaitanya Keister Work Phone: [facility] 01-16-2023 12:00-0400 Respiratory rate 20 /min DO Chaitanya Keister Work Phone: [facility] 01-16-2023 12:00-0400 SaO2% (BldA) [Mass fraction] 97 % DO Chaitanya Keister Work Phone: [facility] 01-16-2023 12:00-0400 Systolic blood pressure 122 mm[Hg] DO Chaitanya Keister Work Phone: [facility] 01-16-2023 04:31-0400 Body weight 73.1 kg DO Chaitanya Keister Work Phone: [facility] 01-15-2023 15:08-0400 45 1 Danis Huang Work Phone: [facility] 250 DO Work Phone: Comment on above: [id number] 01-15-2023 10:45-0400 Body height 172.72 cm DO Chaitanya Keister Work Phone: [facility] 01-14-2023 15:37-0400 Inhaled oxygen flow rate 2 L/min DO Chaitanya Keister Work Phone: [facility] 01-14-2023 11:00-0400 Inhaled oxygen flow rate 4 L/min DO Chaitanya Keister Work Phone: [facility] 01-14-2023 09:19-0400 Diastolic blood pressure 93 mm[Hg] DO Chaitanya Luna Work Phone: [facility] 01-14-2023 09:19-0400 Heart rate 74 /min DO Chaitanya Luna Work Phone: [facility] 01-14-2023 09:19-0400 SaO2% (BldA) [Mass fraction] 97 % DO Chaitanya Luna Work Phone: [facility] 01-14-2023 09:19-0400 Systolic blood pressure 167 mm[Hg] DO Chaitanya Luna Work Phone: [facility] 01-14-2023 09:15-0400 Body temperature 96.7 [degF] DO Chaitanya Luna Work Phone: [facility] 01-14-2023 09:14-0400 Respiratory rate 20 /min DO Chaitanya Luna Work Phone: [facility] 01-14-2023 09:07-0400 Body height 165.1 cm DO Chaitanya Luna Work Phone: [facility] 01-14-2023 09:07-0400 Body weight 74 kg DO Chaitanya Luna Work Phone: [facility] 09-17-2022 12:00-0500 Body height 165.1 cm Danis Ball Other [employer] Other 09-17-2022 12:00-0500 Body mass index (BMI) [Ratio] 26.12 kg/m2 Danis Ball Other [employer] Other 09-17-2022 12:00-0500 Body weight 71.22 kg Danis Ball Other [employer] Other 09-17-2022 12:00-0500 Diastolic blood pressure 82 mm[Hg] Danis Ball Other [employer] Other 09-17-2022 12:00-0500 Respiratory rate 12 /min Danis Ball Other [facility] [employer] Other 09-17-2022 12:00-0500 Systolic blood pressure 136 mm[Hg] Danis Ball Other [facility] [employer] Other 06-04-2022 17:32-0400 Body height 165.1 cm Danis E Ball Work Phone: [facility] [employer] 250 DO Work Phone: 06-04-2022 17:32-0400 Body mass index (BMI) [Ratio] 26.13 kg/m2 Danis E Ball Work Phone: [facility] [employer] 250 DO Work Phone: 06-04-2022 17:32-0400 Body surface area Derived from formula 1.78 m2 Danis E Ball Work Phone: [facility] [employer] 250 DO Work Phone: 06-04-2022 17:32-0400 Body weight 71.22 kg Danis E Ball Work Phone: [facility] [employer] 250 DO Work Phone: 06-04-2022 17:32-0400 Diastolic blood pressure 74 mm[Hg] Danis E Ball Work Phone: [facility] DO Work Phone: 06-04-2022 17:32-0400 Heart rate 72 /min Danis E Ball Work Phone: [facility] DO Work Phone: 06-04-2022 17:32-0400 Systolic blood pressure 137 mm[Hg] Danis E Ball Work Phone: [facility] 250 DO Work Phone: 06-04-2022 15:21-0400 Body height 165.1 cm Danis Huang Work Phone: [facility] [employer] 250 DO Work Phone: 06-04-2022 15:21-0400 Body mass index (BMI) [Ratio] 26.13 kg/m2 Danis Huang Work Phone: [facility] [employer] 250 DO Work Phone: 06-04-2022 15:21-0400 Body surface area Derived from formula 1.78 m2 Danis Huang Work Phone: [facility] [employer] 250 DO Work Phone: 06-04-2022 15:21-0400 Body weight 71.22 kg Danis Huang Work Phone: [facility] [employer] 250 DO Work Phone: 06-04-2022 15:21-0400 Diastolic blood pressure 68 mm[Hg] Danis Huang Work Phone: [facility] [employer] 250 DO Work Phone: 06-04-2022 15:21-0400 Heart rate 72 /min Danis Huang Work Phone: [facility] [employer] 250 DO Work Phone: 06-04-2022 15:21-0400 Systolic blood pressure 144 mm[Hg] Danis Huang Work Phone: [facility] [employer] 250 DO Work Phone: Encounters Encounter Date Encounter Type Care Provider Facility Start: 08-12-2023 End: 08-12-2023 ambulatory MERCEDEZ B APLING Not Available Start: 07-08-2023 End: 07-08-2023 ambulatory MERCEDEZ B APLING Not Available Start: 07-02-2023 End: 07-02-2023 ambulatory Danis Huang Other [facility] [employer] [facility] Other Start: 07-02-2023 Patient encounter procedure Danis Huang [facility] Start: 07-01-2023 End: 07-01-2023 ambulatory Danis Huang Other [employer] Other Start: 07-01-2023 Telephone encounter Danis SILVERMAN [facility] Start: 06-16-2023 End: 06-16-2023 ambulatory AIDAN AMEZCUA Not Available Start: 06-15-2023 End: 06-15-2023 Office outpatient visit 25 minutes Darryl Wu MD Work Phone: [facility] Comment on above: ASCVD (arteriosclero tic cardiovascular disease) (Primary Dx); Essential hypertension; Mixed hyperlipidemia; Congestive heart failure, NYHA class 2 and ACC/AHA stage C (CMS/HCC); History of PTCA Start: 06-10-2023 End: 06-10-2023 ambulatory Danis Huang Other [employer] Other Start: 06-10-2023 Telephone encounter Danis SILVERMAN [facility] Start: 05-17-2023 End: 05-17-2023 ambulatory Dnais Huang Other [employer] Other Start: 05-17-2023 Telephone encounter Danis SILVERMAN [facility] Start: 05-15-2023 End: 05-15-2023 ambulatory Danis Huang Other [employer] Other Start: 05-15-2023 Telephone encounter Danis SILVERMAN [facility] Start: 05-14-2023 End: 05-14-2023 ambulatory Danis Huang Other [employer] Other Start: 05-14-2023 Telephone encounter Danis Ball [facility] Start: 05-12-2023 End: 05-12-2023 ambulatory Danis Ball Other [employer] Other Start: 05-12-2023 Telephone encounter Danis Huang [facility] Start: 03-23-2023 End: 03-23-2023 ambulatory Danis Ball Other [employer] Other Start: 03-23-2023 Telephone encounter Danis Huang [facility] Start: 03-19-2023 Rx Renewal Danis Mendez l Work Phone: [facility] 250 DO Work Phone: Start: 03-16-2023 End: 03-16-2023 ambulatory Danis Huang Other [facility] [employer] [facility] Other Start: 03-16-2023 Office outpatient vi sit 15 minutes Danis Ball [facility] Start: 03-12-2023 Chart Update [facility] l [facility] Work Phone: Start: 03-11-[address] [facility]ford [facility] Facility:[id number] Start: 02-27-2023 End: 02-27-2023 ambulatory Danis Huang Other [facility] (acquired by [employer]) Other Start: 02-27-2023 Office outpatient vi sit 15 minutes Danis [facility] Start: 02-05-2023 Telephone encounter Danis Huang FP [facility] Start: 02-05-2023 Office outpatient vi sit 25 minutes Danis Huang Work Phone: [facility] 250 DO Work Phone: Start: 02-05-2023 End: 02-05-[address] Darryl Wu II [facility] (acquired by [employer]) Other Start: 01-27-2023 End: 01-27-2023 ambulatory Danis Huang Other [facility] (acquired by [employer]) Other Start: 01-27-2023 Transitional care evangelina jon srvc 14 day discharge Danis Huang [facility] Start: 01-19-2023 End: 01-19-2023 ambulatory Danis Huang Other [facility] (acquired by [employer]) Other Start: 01-19-2023 Telephone encounter Danis SILVERMAN [facility] Start: 01-16-[address] Danis Huang Facility:[id number] Start: 01-15-[address] Danis Huang Facility:[id number] Start: 01-14-2023 End: 01-16-2023 Evaluation and management of inpatient Danis Huang Facility:[facility] Start: 01-14-2023 End: 01-16-2023 Evaluation and management of inpatient DO Chaitanya Luna Work Phone: [facility] Work Phone: Start: 01-14-[address] Danis Huang Facility:[id number] Start: 01-14-[address] Danis Huang Facility:[id number] Start: 01-01-2023 End: 01-01-2023 ambulatory Danis Huang Other [employer] Other Start: 01-01-2023 Telephone encounter Danis SILVERMAN [facility] Start: 12-03-2022 Telephone encounter Danis SILVERMAN [facility] Start: 12-03-2022 End: 12-04-[address] DARRYL WU [employer] Other Start: 09-17-2022 End: 09-17-2022 ambulatory Danis Huang Other [employer] Other Start: 09-17-2022 Office outpatient vi sit 25 minutes Danis Huang [facility] Start: 09-16-2022 End: 09-16-2022 ambulatory Danis Huang Other [employer] Other Start: 09-16-2022 Telephone encounter Danis SILVERMAN [facility] Start: 08-25-2022 End: 08-25-2022 ambulatory Danis Huang Other [employer] Other Start: 08-25-2022 Telephone encounter Danis SILVERMAN [facility] Start: 06-30-2022 Adult health examination Ronnell monty Huang Other [employer] Other Start: 06-30-2022 Gynecological examin ation normal Danis Huang Other [employer] Other Start: 06-04-2022 Office outpatient vi sit 15 minutes Danis Huang Work Phone: [facility] 250 DO Work Phone: Start: 06-04-[address] Danis Huang Facility:[id number] Start: 05-21-2022 End: 05-22-[address] EDER LAURENT . Facility:H1 Start: 2022 End: [address] EDER LAURENT . Facility:H1 Start: 05-05-2022 End: 05-05-2022 Pre-procedure evaluation check Danis Huang Other [employer] Other Start: 03-11-2017 Ambulatory SULMA BUSBY Facility: [id number] Start: 09-27-2010 End: 09-27-2010 ambulatory Arun Chino Work Phone: Pain Management Comment on above: Patient Education Procedures Date Procedure Procedure Detail Performing Clinician Start: 06-15-2023 History of percutaneous transluminal coronary angioplasty History of PTCA Darryl Wu MD Work Phone: Start: 01-14-2023 CL Closure Device Placement 0 DO Chaitanya Luna Work Phone: Start: 01-14-2023 CL LHC & COR Angio DO Chaitanya Luna Work Phone: Start: 01-14-2023 CL PCI AMI 1st Vessel CX GRIFFIN DO Chaitanya Luna Work Phone: Start: 01-14-2023 CL PTCA 1st Vessel LAD DO Chaitanya gaona Work Phone: Start: 01-14-2023 DO Chaitanya Luna Work Phone: Start: 2022 Screening for malignant neoplasm of breast Danis Huang Other Start: 08-03-2011 Total colonoscopy Danis Huang Work Phone: Abdominoplasty Danis morrison Work Phone: Blepharoplasty Danis She [place] [facility] Work Phone: Cardiac catheterization Benj elver Huang Work Phone: Cataract surgery Danis Huang Work Phone: Depression screening Harvinder Huang Other History of percutane ous transluminal coronary angioplasty History of PTCA Danis Huang Work Phone: History of placement of stent for coronary artery disease History of heart artery stent DO Chaitanya Luna Work Phone: Percutaneous translu charisse coronary angioplasty Danis Huang Work Phone: Total replacement of hip Adan Huang Work Phone: Plan of Treatment Date Care Activity Detail Author Start: 01-16-2024 Echocardiography Echocardiogram [facility] Start: 01-12-2024 End: 01-12-2024 Patient encounter procedure 01/12/2024 9:40 AM EDT Office Visit [facility] [address] [facility] [address] [place] [id number] Darryl Wu MD [address] [facility] [address] [place] [address] [facility] Start: 06-10-2023 FUV, Provider: Darryl uW, Status: Pen, Time: 1:40 PM FUV, Provider: Darryl Wu, Status: Pen, [facility]: [facility]40 [facility] Work [facility]: Start: 05-21-2023 Screening for osteoporosis Bone Density Scan [facility] Start: 03-09-2023 STRESS LIZZIE, Provider: SARI COSTELLOI NUCLEAR ,[id number], Status: Pen, Time: 2:30 PM STRESS LIZZIE, Provider: SARI COSTELLOI NUCLEAR ,[id number], Status: Pen, Time: 2:30 PM [facility] 250 DO Work Phone: Start: 01-19-[address] [facility] Start: 01-19-2023 [facility] Start: 01-18-[address] [facility] Start: 01-18-2023 [facility] Start: 01-17-[address] [facility] Start: 01-17-2023 [facility] Start: 01-16-[address] [facility] Start: 01-16-2023 End: 01-16-2023 [facility] Start: 01-15-[address] [facility] Start: 01-15-2023 [facility] Start: 01-14-2023 [facility] Start: 01-14-[address] [facility] Start: 01-14-[address] [facility] Start: 01-14-2023 Referral to cardiac rehabilitation program [facility] Start: 01-14-2023 End: 01-14-2023 [facility] Start: 07-01-2022 COVID-19 Vaccine (4 - Pfizer series) COVID-19 Vaccine (4 - Pfizer series) [facility] Start: 04-03-2021 Influenza [facility] Start: 03-26-2014 DIABETES SCREEN DIABETES SCREEN [facility] Start: 2004 ADVANCE DIRECTIVE DISCUSSION ADVANCE DIRECTIVE DISCUSSION [facility] Start: 2004 BONE DENSITY BONE DENSITY [facility] Start: 2004 PNEUMOVAX AGE 65 AND OVER WITH 5YR LOOKBACK (#1) PNEUMOVAX AGE 65 AND OVER WITH 5YR LOOKBACK (#1) [facility] Start: 1989 SHINGRIX VACCINE (1 of 2) SHINGRIX VACCINE (1 of 2) [facility] Start: 1961 DTaP/Tdap/Td Vaccines (1 - Tdap) DTaP/Tdap/Td Vaccines (1 - Tdap) [facility] Start: 1958 Urine microalbumin profile DTAP,TDAP,TD (1 - Tdap) [facility] Start: 1951 COVID-19 VACCINE (1) COVID-19 VACCINE (1) [facility] Start: 1939 Creatinine measurement Creatinine Level [facility] Start: 1939 Lipid panel Lipid Panel [facility] Start: 1939 Medicare Annual Wellness Visit Medicare Annual Wellness Visit (AWV) [facility] Start: 1939 Potassium measurement Potassium Level [facility] Patient referral [facility] Work Phone: Immunizations Immunization Date Immunization Notes Care Provider Marisel woods 05-06-2023 influenza, high dose seasonal, preservative-free Danis Huang Other [employer] Other 05-06-2022 Fluzone High-Dose Quadrivalent 0.7 ML Intramuscular Suspension Prefilled Syringe Danis She Ball Work Phone: [facility] [place] 250 DO Work Phone: 05-06-2022 Pfizer COVID-19 Vac Bivalent 30 MCG/0.3ML Intramuscular Suspension Danis E Ball Work Phone: [facility] [employer] 250 DO Work Phone: 11-22-2021 Comirnaty 30 MCG/0.3 ML Intramuscular Suspension Danis E Ball Work Phone: [facility] [place] 250 DO Work Phone: 05-06-2021 Pfizer-BioNTech COVID-19 Vacc 30 MCG/0.3ML Intramuscular Suspension Danis E Ball Work Phone: [facility] [place] 250 DO Work Phone: 04-24-2021 Fluzone High-Dose Quadrivalent 0.7 ML Intramuscular Suspension Prefilled Syringe Danis E Ball Work Phone: [facility] DO Work Phone: 09-23-2020 Pfizer-BioNTech COVID-19 Vacc 30 MCG/0.3ML Intramuscular Suspension Danis E Ball [facility] Work Phone: 08-24-2020 [employer] COVID-19 Vacc 30 MCG/0.3ML Intramuscular Suspension Danis E [facility] Work Phone: [facility] 250 DO Work Phone: 05-04-2020 influenza, high dose seasonal, preservative-free Danis E Ball Work Phone: [place] [address] DO Work Phone: 04-03-2020 influenza, high dose seasonal, preservative-free Danis E Ball Work Phone: [place] [address] DO Work Phone: 04-29-2019 influenza, high dose seasonal, preservative-free Danis E Ball Work Phone: [place] [address] DO Work Phone: 03-28-2019 zoster vaccine recombinant Danis E [facility] Work Phone: [place] [address] DO Work Phone: 04-28-2018 influenza, injectabl e, quadrivalent, preservative free Danis E [facility] Work Phone: [place] [address] DO Work Phone: 05-04-2017 influenza, injectabl e, quadrivalent, preservative free Danis E [facility] Work Phone: [place] [address] DO Work Phone: 04-15-2011 zoster vaccine, live Benjami n E Ball Work Phone: [place] [address] DO Work Phone: 08-03-2010 pneumococcal polysaccharide vaccine, 23 valent Danis E Ball Work Phone: [place] [address] DO Work Phone: 08-03-2004 pneumococcal polysaccharide vaccine, 23 valent Dansi E Ball Work Phone: [facility] 250 DO Work Phone: Payers Date Payer Category Payer Medicare [id number] 2023 Self-pay [id number] 2022 Unknown 2020 Unknown [id number] 2010 Unknown [employer] [place] [id number] 2010-2013 Indemnity [id number] 2004 Medicare MEDICARE MEDICAR E B [id number] 2004-Present [place], [place] Medicare [id number] 1959 Medicare [id number] 1939 Unknown [id number] [id number]. 593 1939 Unknown [id number] 2.16.840.1.671635.3.579.2. 593 1939 Unknown [id number] 2.16.840.1.933467.3.579.2. 593 1939 Unknown [id number] 2.16.840.1.353060.3.579.2. 356 1939 Unknown [id number] 2.16.840.1.148343.3.579.2. 356 1939 Unknown [id number] 2.16.840.1.666549.3.579.2. 356 1939 Unknown [id number] 2.16.840.1.332599.3.579.2. 356 1939 Unknown [id number] 2.16.840.1.619105.3.579.2. 356 1939 Unknown [id number] 2.16.840.1.417484.3.579.2. 356 1939 Unknown [id number] 2.16.840.1.385640.3.579.2. 356 1939 Unknown [id number] 2.16.840.1.154871.3.579.2. 1068 1939 Unknown [id number] 2.16.840.1.253931.3.579.2. 1259 1939 Unknown [id number] 2.16.840.1.897797.3.579.2. 1259 1939 Unknown [id number] 2.16.840.1.991585.3.579.2. 1259 Medicare [id number] Private Health Insurance [employer] [facility] EBRMN [id number] Private Health Insurance [facility] [id number] Unknown [id number] Unknown [id number] [id number]. 531 Social History Date Type Detail Facility Start: 09-27-2010 End: 06-15-2023 Tobacco smoking status ILIS Never smoker [facility] Start: 09-27-2010 Alcohol intake Current drinke r of alcohol (finding) [facility] Start: 1940 Sex Assigned At Not on file [facility] Start: 06-15-2023 Consumes alcohol occasionally Consumes alcohol occasionally -[facility] 250 DO Work Phone: Comment on above: coffee 1-2 cups; Start: 06-15-2023 Sex Assigned At [facility] [employer] Other Start: 1940 Sex Assigned At Female F [facility] Start: 06-15-2023 Tobacco use and exposure Smokeless tobacco non-user [facility] Work Phone: Start: 06-15-2023 Alcohol intake Lifetime non-d jeramie (finding) [facility] Work Phone: Start: 06-05-2023 End: 06-15-2023 Exposure to SARS-CoV-2 (event) Unable to assess [facility] Medical Equipment Procedure Code Equipment Code Equipment Origin al Text Equipment Identifier Dates Ins Actb 36mm 0d E X3 Trdnt - [id number] Start: 03-25-2011 Head Fem -5mm 36 mm Hip Cocr - [id number] Start: 03-25-2011 Shell Actb 52mm T/H Pros - [id number] Start: 03-25-2011 Stem Fem Acld Tm zf 4.5 Hip - [id number] Start: 03-25-2011 CL STENT ANANDA FRONTIER 2.25 X 22 FDA Start: 01-14-2023 Femoral artery closure plug/patch, synthetic polymer [id number] FDA Start: 01-14-2023 Goals Date Patient Goal Desired Activity /State Functional Status Date Assessment Result Facility 01-16-2023 Functional status Patient at Baseline [facility] Work Phone: 01-14-2023 Functional status Patient at Baseline [facility] Work Phone: Mental Status Date Assessment Result Facility 01-16-2023 Cognitive function Cognitive Sta tus Patient at Baseline [facility] Work Phone: 01-14-2023 Cognitive function Cognitive Sta tus Patient at Baseline [facility] Work Phone: Clinical Notes 11-02-1999 to 08-07-2023 Note Date & Type Note Facility 08-07-2023 History general N arrative - Reported Type Medical History HTN Medical History Hypercholesterolemia Medical History CKD stage 3a Medical History ASHD Medical History Abnormal weight loss (resolved 05/05/2022) Surgical History Heart Catheterization/Stents pl aced 11/1999 Surgical History Breast Reduction 1999 Surgical History Abdominoplasty 2001 Surgical History Trigger finger, left 2004 Surgical History Cataracts, bilateral 2010 Surgical History Left hip replacement 03/2011 Surgical History Eyelids lifted Surgical History PCI/stent LCX, PTCA distal LAD 01/2023 Surgical History Trigger finger right hand 06/22 23 Surgical History CTR right 06/2023 Hospitalization History See past surgical hx [employer] Other 12-01-2023 History general Narrative - Reported* Type Description Date Medical History HTN Medical History Hypercholesterolemia Medical History CKD stage 3a Medical History ASHD Medical History Abnormal weight loss (resolved 1 ) Surgical History Heart Catheterization/Stents pl aced 11/1999 Surgical History Breast Reduction 1999 Surgical History Abdominoplasty 2001 Surgical History Trigger finger, left 2004 Surgical History Cataracts, bilateral 2010 Surgical History Left hip replacement 03/2011 Surgical History Eyelids lifted Surgical History PCI/stent LCX, PTCA distal LAD 01/2023 Surgical History Trigger finger right hand 06/22 23 Surgical History CTR right 06/2023 Hospitalization History See past surgical hx [employer] Other 11-30-2023 Evaluation note* Encounter Date Diagnosis Assessment Notes Treatment Notes Treatment Clinical Notes Jun, Medicare annual wellness visit, subsequent (ICD-10 - Z00.00) Personalized health advice was given to the beneficiary including a written plan for screenings discussed and provided. Advanced care planning reviewed and/or information given as requested. Additional counseling was provided here today in regards to, [ ]. The above visit was performed by [ ], under direct supervision of [ ]. Document reviewed and amended by provider signed below. Jun, ASHD (arteriosclerot ic heart disease) (ICD-10 - I25.10) Echo: LVEF 40-45%, RVSP 45, - 01/2022 LHC: LVEF 35% - 01/2022 This patient is stable without activity related CP, dyspnea or lightheadedness. They are instructed to continue exercise and AHA diet plan. Continue secondary prevention measures. Jun, Stage 3a chronic kid nery disease (ICD-10 - N18.31) The patient is instructed on adequate control of hypertension and diabetes, if appropriate. They are also educated on the associated risks of NSAIDs and PPI use with kidney disease. They were instructed on adequate fluid balance and to avoid dehydration. Jun, Primary hypertension (ICD-10 - I10) This patient is instructed to consume a healthy, low-fat, low-salt diet. They are also encouraged to continue exercise to achieve/maintain a normal BMI. Jun, Spondylolisthesis of lumbar region (ICD-10 - M43.16) The patient is instructed to avoid bending, twisting or lifting. They are to use intermittent heat and ice as needed. They may schedule a massage or gentle manipulation. They may safely use Tylenol as needed. Jun, Gastroesophageal ref lux disease with esophagitis without hemorrhage (ICD-10 - K21.00) Diet instructions: Smaller portions, avoid eating and laying flat, avoid eating or drinking prior to bedtime. Weight loss. [employer] Other 11-13-2023 History of Present illness Narrative* Darryl Wu MD - 06/15/2023 9:10 AM EST Subjective Atiya Jha is a 83 y.o. female Chief Complaint Annual Exam HPI Had STEMI in January Patient returns for follow-up of problems as noted. She is done well. In January she had an ST segmentelevation [place] and had immediate transport from home to the [facility] [address] [employer] where she underwent emergent intervention and had a satisfactory result. Ejection fraction on day of intervention was 35% but when reevaluated the following day by echo it was 45% and because of this we believe and presume is satisfactory response and recovery of ejection fraction. Risk factors are discussed and reviewed and they are well controlled. She is interested in the cessation of Brilinta but I advised her that it would not be until January of next year and she understandsand agrees to the plan. Visit Vitals BP 114/78 (BP Location: Right arm) Pulse 62 Ht 1.651 m (5' 5 ) Wt 70.8 kg (156 lb) BMI 25.96 kg/m Smoking Status Never BSA 1.8 m Objective Physical Exam Constitutional: Appearance: Normal appearance. She is normal weight. HENT: Nose: Nose normal. Neck: Vascular: No carotid bruit. Cardiovascular: Rate and Rhythm: Normal rate. Pulses: Normal pulses. Heart sounds: Normal heart sounds. Pulmonary: Effort: Pulmonary effort is normal. Abdominal: General: Bowel sounds are normal. Palpations: Abdomen is soft. Genitourinary: Rectum: Normal. Musculoskeletal: General: Normal range of motion. Cervical back: Normal range of motion. Right lower leg: No edema. Left lower leg: No edema. Skin: General: Skin is warm and dry. Neurological: General: No focal deficit present. Mental Status: She is alert. Psychiatric: Mood and Affect: Mood normal. Behavior: Behavior normal. Thought Content: Thought content normal. Judgment: Judgment normal. Current Medications Current Outpatient Medications: alendronate (Fosamax) 70 mg tablet, Take 1 tablet (70 mg) by mouth every 7 days. Take in the morning with a full glass of water, on an empty stomach, and do not take anything else by mouth or lie down for the next 30 min., Disp: , Rfl: aspirin 81 mg EC tablet, Take 1 tablet (81 mg) by mouth once daily., Disp: , Rfl: atorvastatin (Lipitor) 80 mg tablet, Take 1 tablet (80 mg) by mouth once daily., Disp: , Rfl: calcium carbonate-vitamin D3 500 mg-5 mcg (200 unit) tablet, Take 1 tablet by mouth once daily., Disp: , Rfl: carvedilol (Coreg) 6.25 mg tablet, Take 1 tablet (6.25 mg) by mouth 2 times a day with meals., Disp: 180 tablet, Rfl: 3 nitroglycerin (Nitrostat) 0.4 mg SL tablet, Place 1 tablet (0.4 mg) under the tongue every 5 minutes if needed for chest pain., Disp: , Rfl: omeprazole (PriLOSEC) [address] capsule, Take 1 capsule (20 mg) by mouth once daily in the morning. Take before meals. Do not crush or chew., Disp: , Rfl: telmisartan-hydrochlorothiazid (MIcarDIS HCT) 80-12.5 mg tablet, Take 1 tablet by mouth once daily., Disp: , Rfl: ticagrelor (Brilinta) 90 mg tablet, Take 1 tablet (90 mg) by mouth 2 times a day., Disp: , Rfl: Assessment/Plan 1. ASCVD (arteriosclerotic cardiovascular disease) With classic symptoms necessitating intervention. Patient understands symptoms to watch for in the future 2. Essential hypertension Good control on current therapy 3. Mixed hyperlipidemia Good control on current therapy 4. Congestive heart failure, NYHA class 2 and ACC/AHA stage C (CMS/HCC) Actually class I. Ejection fraction was 35% then 45%. I presume it to be even better. She has no symptoms whatsoever 5. History of PTCA In January of this year prompted by classic symptomatology. [facility] Work Phone: 1(859) 913-214011-13-2023 Instructions* Patient Instructions* Kaiden Bonilla MA - 06/15/2023 9:10 AM EST Please bring all medicines, vitamins, and herbal supplements with you when you come to the office. Prescriptions will not be filled unless you are compliant with your follow up appointments or have a follow up appointment scheduled as per instruction of your physician. Refills should be requested at the time of your visit. [facility] Work Phone: 1([phone]) 135-480711-08-2023 History general Narrative - Reported* Type Description Date Medical History HTN Medical History Hypercholesterolemia Medical History CKD stage 3a Medical History ASHD Medical History Abnormal weight loss (resolved 1 ) Surgical History Heart Catheterization/Stents pl aced 11/1999 Surgical History Breast Reduction 1999 Surgical History Abdominoplasty 2001 Surgical History Trigger finger, left 2004 Surgical History Cataracts, bilateral 2010 Surgical History Left hip replacement 03/2011 Surgical History Eyelids lifted Surgical History PCI/stent LCX, PTCA distal LAD 01/2023 Surgical History Trigger finger left middle 06/04 023 Hospitalization History See past surgical hx [employer] Other 10-15-2023 Evaluation note* Encounter Date Diagnosis Assessment Notes Treatment Notes Treatment Clinical Notes May, Elevated cholesterol (ICD-10 - E78.00) [employer] Other 10-15-2023 History general Narrative - Reported* Type Description Date Medical History HTN Medical History Hypercholesterolemia Medical History CKD stage 3a Medical History ASHD Medical History Abnormal weight loss (resolved 1 ) Surgical History Heart Catheterization/Stents pl aced 11/1999 Surgical History Breast Reduction 1999 Surgical History Abdominoplasty 2001 Surgical History Trigger finger, left 2004 Surgical History Cataracts, bilateral 2010 Surgical History Left hip replacement 03/2011 Surgical History Eyelids lifted Surgical History PCI/stent LCX, PTCA distal LAD 01/2023 Hospitalization History See past surgical hx [employer] Other 10-13-2023 History general Narrative - Reported* Type Description Date Medical History HTN Medical History Hypercholesterolemia Medical History CKD stage 3a Medical History ASHD Medical History Abnormal weight loss (resolved 1 ) Surgical History Heart Catheterization/Stents pl aced 11/1999 Surgical History Breast Reduction 1999 Surgical History Abdominoplasty 2001 Surgical History Trigger finger, left 2004 Surgical History Cataracts, bilateral 2010 Surgical History Left hip replacement 03/2011 Surgical History Eyelids lifted Surgical History PCI/stent LCX, PTCA distal LAD 01/2023 Hospitalization History See past surgical hx [employer] Other 10-12-2023 Evaluation note* Encounter Date Diagnosis Assessment Notes Treatment Notes Treatment Clinical Notes May, Elevated cholesterol (ICD-10 - E78.00) [employer] Other 10-12-2023 History general Narrative - Reported* Type Description Date Medical History HTN Medical History Hypercholesterolemia Medical History CKD stage 3a Medical History ASHD Medical History Abnormal weight loss (resolved 1 ) Surgical History Heart Catheterization/Stents pl aced 11/1999 Surgical History Breast Reduction 1999 Surgical History Abdominoplasty 2001 Surgical History Trigger finger, left 2004 Surgical History Cataracts, bilateral 2010 Surgical History Left hip replacement 03/2011 Surgical History Eyelids lifted Surgical History PCI/stent LCX, PTCA distal LAD 01/2023 Hospitalization History See past surgical hx [employer] Other 10-10-2023 History general Narrative - Reported* Type Description Date Medical History HTN Medical History Hypercholesterolemia Medical History CKD stage 3a Medical History ASHD Medical History Abnormal weight loss (resolved 1 ) Surgical History Heart Catheterization/Stents pl aced 11/1999 Surgical History Breast Reduction 1999 Surgical History Abdominoplasty 2001 Surgical History Trigger finger, left 2004 Surgical History Cataracts, bilateral 2010 Surgical History Left hip replacement 03/2011 Surgical History Eyelids lifted Surgical History PCI/stent LCX, PTCA distal LAD 01/2023 Hospitalization History See past surgical hx [employer] Other 08-21-2023 Evaluation note* Encounter Date Diagnosis Assessment Notes Treatment Notes Treatment Clinical Notes Mar, Primary hypertension (ICD-10 - I10) [employer] Other 08-14-2023 Evaluation note* Encounter Date Diagnosis Assessment Notes Treatment Notes Treatment Clinical Notes Mar, Urticaria (ICD-10 - L50.9) Dove soap Cool compresses Initiate Hydroxyzine at HS Zyrtec q am Mar, ASHD (arteriosclerotic heart disease) (ICD-10 - I25.10) Echo: LVEF 40-45%, RVSP 45, - 01/2022 LHC: LVEF 35% - 01/2022 This patient is stable without activity related CP, dyspnea or lightheadedness. They are instructed to continue exercise and AHA diet plan. Discussed new medications as possible culprits but instructed not to stop. [employer] Other 07-28-2023 Evaluation note* Encounter Date Diagnosis Assessment Notes Treatment Notes Treatment Clinical Notes Jan, Benign paroxysmal positional vertigo due to bilateral vestibular disorder (ICD-10 - H81.13) Discussed etiology to dizziness Volume depletion, tach/toni arrhythmias, medications No obvious etiology at this time but some characteristics of vertigo Instructed to check BP and HR at next episode and call office. Jan, Primary hypertension (ICD-10 - I10) This patient is instructed to consume a healthy, low-fat, low-salt diet. They are also encouraged to continue exercise to achieve/maintain a normal BMI. Elevate due to aniety Recheck at home w/ goal < 140/90 Jan, Acute blood loss anemia (ICD-10 - D62) Mild w/ Hgb > 11gm No s/s active bleeding If dizziness recurs, would check H/H [employer] Other 07-06-2023 Evaluation note* Encounter Date Diagnosis Assessment Notes Treatment Notes Treatment Clinical Notes Jan, ASHD (arteriosclerotic heart disease) (ICD-10 - I25.10) Echo: LVEF 40-45%, RVSP 45, - 01/2022 LHC: LVEF 35% - 01/2022 [employer] Other 06-27-2023 Evaluation note* Encounter Date Diagnosis Assessment Notes Treatment Notes Treatment Clinical Notes Jan, ASHD (arteriosclerotic heart disease) (ICD-10 - I25.10) This patient is stable without activity related CP, dyspnea or lightheadedness. They are instructed to continue exercise and AHA diet plan. s/p PCI/stent LCx and LAD Planning to start CR in next couple weeks Jan, PAD (peripheral artery disease) (ICD-10 - I73.9) Inspect feet on daily basis. Walk daily Continue ASA and statin therapy Jan, Primary hypertension (ICD-10 - I10) This patient is instructed to consume a healthy, low-fat, low-salt diet. They are also encouraged to continue exercise to achieve/maintain a normal BMI. Jan, Elevated cholesterol (ICD-10 - E78.00) Instructed on diet and exercise with continued statin therapy.Discussed the beneficial effects of lowering cholesterol in reducing the risk for cerebrovascular and cardiovascular disease. Jan, Stage 3a chronic kidney disease (ICD-10 - N18.31) The patient is instructed on adequate control of hypertension and diabetes, if appropriate. They are also educated on the associated risks of NSAIDs and PPI use with kidney disease. They were instructed on adequate fluid balance and to avoid dehydration. Jan, Acute blood loss anemia (ICD-10 - D62) Mild in degree, monitor for now. No obvious bleeding at this time. [employer] Other 06-27-2023 History general Narrative - Reported* Type Description Date Medical History HTN Medical History Hypercholesterolemia Medical History CKD stage 3a Medical History ASHD Surgical History Heart Catheterization/Stents pl aced 11/1999 Surgical History Breast Reduction 1999 Surgical History Abdominoplasty 2001 Surgical History Trigger finger, left 2004 Surgical History Cataracts, bilateral 2010 Surgical History Left hip replacement 03/2011 Surgical History Eyelids lifted Surgical History PCI/stent LCX, PTCA distal LAD 01/2023 Hospitalization History See past surgical hx [employer] Other 06-20-2023 History general Narrative - Reported* Type Description Date Medical History HTN Medical History Hypercholesterolemia Medical History CKD stage 3a Medical History ASHD Surgical History Heart Catheterization/Stents pl aced 11/1999 Surgical History Breast Reduction 1999 Surgical History Abdominoplasty 2001 Surgical History Trigger finger, left 2004 Surgical History Cataracts, bilateral 2010 Surgical History Left hip replacement 03/2011 Surgical History Eyelids lifted Surgical History PCI/stent LCX, PTCA distal LAD 01/2023 Hospitalization History See past surgical hx [employer] Other 06-16-2023 Discharge summary Author Allan Marroquin [facility] January 16, 2023 12:09pm Note Date/Time January 16, 2023 12:0 6pm [facility] [address] [place] [address] Discharge Summary Signed Patient: Atiya Jha MR#: [id number] : 1940 Acct:[id number] Age/Sex: 82 / F Adm Date: 3 Loc: Room: [address] [place] [address]: Allan Marroquin DO Copies to: DO Allan Dean, ~ Providers Date of Discharge: 01/16/23 Discharging Provider: Allan Marroquin Primary Care Provider: Danis Huang Consults: 01/14/23 10:36 Consult to Pulmonology Routine Consult to Cardiac Rehabilitation Routine Discharge Diagnosis (1) ST elevation (STEMI) myocardial infarction: (2) History of heart artery stent: (3) High cholesterol: (4) Hypertension: Final Diagnosis Final Discharge Diagnosis: 1. Anterolateral STEMI 2. Severe two-vessel ASHD 3. Severe LV dysfunction Summary Hospital Course Hospital course: 82-year-old female presents with anterolateral STEMI and underwent primary PCI of the proximal/ostial circumflex with 2.25 x 22 mm drug-eluting Ananda stent and balloon angioplasty of the distal LAD. LV function is impaired at 35% with severe anterolateral and anteroseptal hypo/akinesis Patient will be discharged on current therapies, including DAPT and high-dose statin and afterload reduction therapies for future follow-up with cardiology inthe next 2 weeks and initiation of cardiac rehab. 30 minutes of discharge planning, medication reconciliation, follow-up arrangements performed Status at Discharge Functional status at discharge: independent ambulation Overall status at discharge: patient is back to baseline Time Spent with Patient Time spent providing/coordinating discharge services (# min): 30 Surgeries and Procedures Operation Date: 01/14/23 09:10 Actual Procedures p CL PCI AMI 1st Vessel CX GRIFFIN - W Ziyad Marroquin, DO p CL PTCA 1st Vessel LAD - W Ziyad Marroquin DO p CL Closure Device Placement 0 - W Ziyad Marroquin, DO p CL LHC & COR Angio - W Ziyad Marroquin, DO Complications Complications: None Diagnostic Studies Completed and Pending Studies Pending studies at discharge: 01/17/23 05:00 ECG 12 lead ECG IN AM Basic Metabolic Panel [CHEM] IN AM Complete Blood Count Auto Diff IN AM 01/18/23 05:00 Basic Metabolic Panel [CHEM] IN AM Complete Blood Count Auto Diff IN AM 01/19/23 05:00 Basic Metabolic Panel [CHEM] IN AM Complete Blood Count Auto Diff IN AM Labs on day of discharge: 01/16/23 03:46: PHA Creatinine Clear 48.86, Sodium 140, Potassium 4.0, Chloride 107, Carbon Dioxide 25.2, Anion Gap 11.8, BUN 15, Creatinine 0.88, Est GFR (CKD-EPI) > 60.0, Glucose 100, Calcium 8.8 01/16/23 03:46: Corrected WBC 5.2, Uncorrected WBC Count 5.2, RBC 3.57 L, Hgb 11.5 L, Hct 32.9 L, MCV 92.2, MCH 32.1, MCHC 34.8, RDW 13.8, Plt Count 161, MPV 8.0, Neut % (Auto) 54.3, Lymph % (Auto) 28.0, Lincoln % (Auto) 12.0, Eos % (Auto) 5.1, Baso % (Auto) 0.6, Nucleat RBC Rel Count 0.2, Neut # (Auto) 2.8, Lymph # (Auto) 1.4, Lincoln # (Auto) 0.6, Eos # (Auto) 0.3, Baso # (Auto) 0.0 Exam Physical Exam Vital Signs: Temp Pulse Resp BP Pulse Ox O2 Del Method O2 Flow Rate 97.4 F L 73 18 146/87 H 94 L Room Air 2 01/16/23 07:32 01/16/23 07:32 01/16/23 07:32 01/16/23 07:32 01/16/23 07:32 01/16/23 08:00 01/14/23 15:37 Const General: cooperative, healthy appearing, comfortable and no acute distress Nutritional Appearance: average body habitus and thin Orientation: alert, awake and oriented x3 HEENT Head: normal to inspection Neck Neck: normal visual inspection Chest Chest palpation & inspection: normal inspection of the chest Resp Effort & Inspection: normal respiratory effort Cardio Palpation: normal PMI Rate: regular rate and tachycardic Rhythm: regular rhythm Heart Sounds: S1 normal, S2 normal and no murmurs Pulses: radial pulses present and femoral pulses present GI Palpation: soft Skin General: no rashes or lesions noted Neuro General: patient alert, patient awake and patient oriented x3 Cognition: normal cognition Speech: speech normal Extrem General: normal to inspection and no clubbing, cyanosis or edema Discharge Plan Discharge Plan Patient Disposition: Home Diet: Low-Cholesterol Additional Instructions: DISCHARGE INSTRUCTIONS FOR ANGIOPLASTY/CORONARY/PERIPHERAL/STENT IMPLANT FOR ADULT ANTICOAGULATION -Since the greatest risk of a blood clot forming with the stent occurs in the first 2-3 weeks after implantation, you will need to take anticoagulants for at least x 1 yr ANTICOAGULATION MEDICATION [INSERT MEDICATION NAME: Aspirin 81mg once a day, Aspirin 325mg once a day, Clopidogrel (Plavix) 75mg one tablet, Prasugrel (Effient) 10mg once a day once a day, Ticagrelor (Brilinta) 90mg twice a day] STATIN MEDICATION [INSERT MEDICATION NAME: atorvastatin (Lipitor) 80 mg [Drug-Eluting Stent (GRIFFIN) duration] DO NOT discontinue Brilinta/Aspirin during the first few months regardless of what you are advised by your family doctor or pharmacist, without first calling the bench hand machine who implanted the stent. If you require pain relief during this time, please take only ACETAMINOPHEN (TYLENOL)- NO additional aspirin or ibuprofen. DISCHARGE ACTIVITIES ARE FOLLOWS: First week after discharge: -Take it easy at home, no strenuous activity. -Do not lift or pull objects over 10-15 pounds, including children, and groceries for four weeks. If puncture site is at wrist do NOT lift more than three pounds for three days. - May walk up stairs. -May shower. -No excessive scrubbing of the affected site (groin). -May ride in car. -May resume sexual intercourse after 1-2 weeks. -No MRI for 12 days. -May drive in 4-7 days. -If puncture site is at the wrist do not manipulate the wrist for 24 hours, and no soaking wrist for three days. Second Week: -May take a bath -May start walking 3 times a week for 15-20 minutes at a leisurely pace. You should be able to carry on a conversation comfortably without feeling winded. -No strenuous activity as in jogging, running, weight lifting, stair steppers, etc. until the bench hand machine approves these activities. Check with the bench hand machine on your first follow-up visit. CALL YOUR PHYSICIAN at [phone]: -If bleeding should occur from the catheter insertion site- apply pressure to the site then immediately call us. -Report any fever, redness, drainage, increased swelling, or firmness at the catheter insertion site. Some bruising or slight swelling may be present at thetime of discharge. -Should arm or leg become cold, numb, white, or blue, contact the bench hand machine immediately. -IF you should experience episodes of angina, e.g. chest discomfort, heaviness, tightness, pressure burning with or without radiation to the neck, jaw, arms or back- use 1 Nitrostat tablet under your tongue every 5-10 minutes and up to three tablets. IF NO RELIEF, CALL 911 or GO TO THE NEAREST EMERGENCY ROOM. -Please notify our office if you have recurrent angina. -[Cardiac Rehab Education Provided. Participation in the Cardiopulmonary Rehabilitation program is recommended. Please call Central Scheduling at [phone] to schedule your appointment.] The attending bench hand machine or [facility] nurse clinician should provide you with specific instructions regarding activity, diet, medications, and further follow up for you. Follow the medication instructions provided on your discharge. If the dosages and instructions on this sheet differ from the dosage and instructions on the bottle, follow the instructions on the bottle. [facility] is not responsible for incorrect prescription information provided by thepatient during their visit. Do not stop your medications without consulting your health care provider. Please take the list with you to your next doctor's appointment. Prescriptions: New atorvastatin 80 mg Tablet 80 mg PO QPM Qty: 30 3RF carvedilol 6.25 mg Tablet 6.25 mg PO BID.WITH.MEALS Qty: 60 3RF nitroglycerin 0.4 mg Tablet, Sublingual 0.4 mg sublingual Q5M PRN (Reason: Chest Pain) Qty: 30 2RF Brilinta 90 mg Tablet 90 mg PO BID Qty: 180 3RF Continued aspirin [Aspir-81] 81 mg Tablet,Delayed Release (Dr/Ec) 81 mg PO DAILY omeprazole magnesium [Prilosec OTC] 20 mg Tablet,Delayed Release (Dr/Ec) 20 mg PO DAILY alendronate 70 mg tablet 70 mg PO QWEEK Patient Comments: TAKE 1 TABLET BY MOUTH ONCE A WEEK ON THURSDAY (30 MINUTES before FIRST food,beverage or medicine OF the day with plain water) Rx Instructions: EVERY THURSDAY telmisartan-hydrochlorothiazid 40-12.5 mg tablet 1 tab PO DAILY Patient Comments: TAKE 1 TABLET BY MOUTH DAILY Colace 50 mg Capsule 50 mg PO BID cholecalciferol (vitamin D3) [Vitamin D3] 25 mcg (1,000 unit) Capsule 25 mcg PO DAILY Discontinued pravastatin 40 mg tablet 1 tab PO HS Patient Comments: atenolol 25 mg Tablet 25 mg PO HS Follow Up: Allan Marroquin DO [Active Staff - D.O.] - Porfirio Vu MD [Referring] - 3-5 Days Documented By: Allan Marroquin DO 01/16/231202 Signed By: <Electronically signed by Allan Marroquin DO> 01/16/23 120 [facility] Work Phone: 1(437) 660-711406-15-2023 Progress note Author Allan Marroquin [facility] January 15, 2023 3:40pm Note Date/Time January 15, 2023 3:40 pm [facility] [address] [place] [address] Cardiology Progress Note Signed Patient: Atiya Jha MR#: [id number] : 1940 Acct:[id number] Age/Sex: 82 / F Adm Date: 3 Loc: Room: [address] [place] [address] Type: ADM IN Attending Dr: Allan Marroquin DO Copies to: ~ Date of Service: 01/15/2023 Subjective Principal diagnosis: Anteroseptal/anterolateral STEMI Interval history: Day 1 status post anteroseptal/anterolateral STEMI with primary PCI ostial/proximal circumflex and distal LAD. Patient is doing well, asymptomatic with no recurrence of angina, no heart failure or arrhythmias, alert and oriented without complaints presently Troponins were trended up to 27,000 at peak and now of come down to 22,000 as ofthis morning. Echocardiogram reveals distal anteroseptal and anterolateral severe hypo to akinesis with ejection fraction of 40 to 45% which corroborates the angiographicventriculogram from yesterday morning Patient remains clinically hemodynamically stable she remains on appropriate GDMT post UT at this time. Plan: We will continue current therapies, increased ambulation, consider discharge in 24 to 48 hours Exam Physical Exam Vital Signs: Temp Pulse Resp BP Pulse Ox O2 Del Method O2 Flow Rate 98.4 F 78 22 121/59 L 95 Room Air 2 01/15/23 08:00 01/15/23 10:01/15/23 10:00 01/15/23 10:00 01/15/23 08:00 01/15/23 10:00 01/14/23 15:37 Const General: cooperative, healthy appearing, comfortable and no acute distress Nutritional Appearance: average body habitus Orientation: alert, awake and oriented x3 HEENT Head: normal to inspection Neck Neck: normal visual inspection Chest Chest palpation & inspection: normal inspection of the chest Resp Effort & Inspection: normal respiratory effort Cardio Palpation: normal PMI Rate: regular rate Rhythm: regular rhythm Heart Sounds: S1 normal, S2 normal and no murmurs Pulses: radial pulses present and femoral pulses present GI Palpation: soft Skin General: no rashes or lesions noted Neuro General: patient alert, patient awake and patient oriented x3 Cognition: normal cognition Speech: speech normal Extrem General: normal to inspection and no clubbing, cyanosis or edema Objective Labs 01/15/23 03:54 01/15/23 03:54 Labs: Laboratory Results - last 24 hr 01/14/23 01/14/23 01/14/23 16:06 17:08 18:49 Corrected WBC Uncorrected WBC Count RBC Hgb Hct MCV MCH MCHC RDW Plt Count MPV Neut % (Auto) Lymph % (Auto) Lincoln % (Auto) Eos % (Auto) Baso % (Auto) Nucleat RBC Rel Count Neut # (Auto) Lymph # (Auto) Lincoln # (Auto) Eos # (Auto) Baso # (Auto) PHA Creatinine Clear Sodium Potassium Chloride Carbon Dioxide Anion Gap BUN Creatinine Est GFR (CKD-EPI) Glucose POC Glucose 112 Calcium Troponin I High Sens 31725.8 H* 74831.6 H* 01/14/23 01/15/23 01/15/23 22:13 03:54 03:54 Corrected WBC 6.9 Uncorrected WBC Count 6.9 RBC 3.65 Hgb 11.6 L Hct 33.2 L MCV 91.0 MCH 31.8 MCHC 34.9 RDW 13.7 Plt Count 160 MPV 7.8 Neut % (Auto) 68.3 Lymph % (Auto) 19.7 Lincoln % (Auto) 8.9 Eos % (Auto) 2.7 Baso % (Auto) 0.4 Nucleat RBC Rel Count 0.1 Neut # (Auto) 4.7 Lymph # (Auto) 1.4 Lincoln # (Auto) 0.6 Eos # (Auto) 0.2 Baso # (Auto) 0.0 PHA Creatinine Clear 53.75 Sodium 137 Potassium 3.8 Chloride 105 Carbon Dioxide 24.1 Anion Gap 11.7 BUN 14 Creatinine 0.80 Est GFR (CKD-EPI) > 60.0 Glucose 97 POC Glucose Calcium 8.6 Troponin I High Sens 41557.5 H* 01/15/23 01/15/23 03:54 08:42 Corrected WBC Uncorrected WBC Count RBC Hgb Hct MCV MCH MCHC RDW Plt Count MPV Neut % (Auto) Lymph % (Auto) Lincoln % (Auto) Eos % (Auto) Baso % (Auto) Nucleat RBC Rel Count Neut # (Auto) Lymph # (Auto) Lincoln # (Auto) Eos # (Auto) Baso # (Auto) PHA Creatinine Clear Sodium Potassium Chloride Carbon Dioxide Anion Gap BUN Creatinine Est GFR (CKD-EPI) Glucose POC Glucose 108 Calcium Troponin I High Sens 89011.5 H* A&P - Cardiology (1) ST elevation (STEMI) myocardial infarction: Code(s): I21.3 - ST elevation (STEMI) myocardial infarction of unspecified site Status: Acute (2) History of heart artery stent: Code(s): Z95.5 - Presence of coronary angioplasty implant and graft Status: Acute (3) High cholesterol: Code(s): E78.00 - Pure hypercholesterolemia, unspecified Status: Acute (4) Hypertension: Code(s): I10 - Essential (primary) hypertension Status: Acute Documented By: Allan Marroquin DO 01/15/23 1537 Signed By: <Electronically signed by Allan Marroquin DO> 01/15/23 1540 [facility] Work Phone: 1(232) 631-117606-14-2023 [facility] [facility] History and physical note Author Allan Marroquin [facility] January 14, 2023 10:41am Note Date/Time January 14, 2023 10:4 1am [facility] [address] [place] [address] Cardiology H&P Signed Patient: Atiya Jha MR#: [id number] : 1940 Acct:[id number] Age/Sex: 82 / F Adm Date: 3 Loc: Room: Type: [facility] Attending Dr: Allan Marroquin DO Copies to: MD Allan Dorado DO~ Date of Service: 01/14/2023 Cardiology HPI History of Present Illness Chief complaint: Anterolateral STEMI HPI: Ms. Jha is a 82 year old female admitted through the emergency room in transfer from [facility] at 0905 with anterolateral STEMI. Symptoms began earlier this morning, patient was transported by squad, prearrival ECGs were reviewed by myself via telephonic communication and communication with ER attending. Patient arrived at [facility] at 0923, having received up stream antiplatelet and antithrombotic and nitrate therapy; underwent PCI of infarct vessel at 0937. The door to device time was 32 minutes. Past medical history is noted for ASHD with very [place], hypertension, hyperlipidemia. Current primary care physician is Dr. Danis Huang. She has not received any cardiology follow-up for a number of years per her family's report. Patient arrives to the [facility] hypertensive, in sinus rhythm without arrhythmias, ongoing chest discomfort, no evidence of cardiogenic shock Cath and intervention ensued without complications Total 60 minutes of nonprocedural critical care time were devoted to the ER staff, [facility] staff, nursing staff, patient and family both pre and post procedurally. Review of Systems Review of Systems All other systems reviewed & are negative unless noted below or in HPI Constitutional Constitutional: Reports as per HPI Cardiovascular Cardiovascular: Reports as per HPI and Reports chest pain at rest Respiratory Respiratory: Reports system reviewed and no additional complaints, except as documented Gastrointestinal Gastrointestinal: Reports system reviewed and no additional complaints, except as documented Genitourinary Genitourinary: Reports system reviewed and no additional complaints, except as documented Musculoskeletal Musculoskeletal: Reports system reviewed and no additional complaints, except asdocumented Neurologic Neurologic: Reports system reviewed and no additional complaints, except as documented PMFSH Vaccinated for COVID-19?: Unknown Medical History (Updated 01/14/23 @ 10:41 by Allan Marroquin DO) High cholesterol Hypertension Social History Smoking Status: Unknown if ever smoked Substance Use Type: None Meds Medications and Allergies Allergies No Known Allergies Allergy (Verified 01/14/23 10:04) Home Medications aspirin 81 mg tablet,delayed release (Aspir-) 81 mg PO DAILY 11/02/17 [History Confirmed 06/16/18] atenolol 25 mg tablet 25 mg PO DAILY 11/02/17 [History Confirmed 06/16/18] irbesartan 150 mg-hydrochlorothiazide 12.5 mg tablet 1 tab PO DAILY 11/02/17 [History Confirmed 06/16/18] omeprazole magnesium 20 mg tablet,delayed release (Prilosec OTC) 20 mg PO DAILY 11/02/17 [History Confirmed 06/16/18] pravastatin 40 mg tablet 1 tab PO DAILY 11/02/17 [History Confirmed 06/16/18] Exam Physical Exam Vital Signs: Temp Pulse Resp BP Pulse Ox O2 Del Method 96.7 F L 74 20 167/93 H 97 Room Air 01/14/23 09:15 01/14/23 09:19 01/14/23 09:14 01/14/23 09:19 01/14/23 09:19 01/14/23 09:19 Const General: acute distress, frail appearing and lethargic Nutritional Appearance: thin Orientation: not alert and awake HEENT Head: normal to inspection Neck Neck: normal visual inspection Chest Chest palpation & inspection: normal inspection of the chest Resp Effort & Inspection: normal respiratory effort Cardio Rate: regular rate and tachycardic Rhythm: regular rhythm Heart Sounds: S1 normal and S2 normal Pulses: radial pulses present and femoral pulses present GI Palpation: soft Skin General: no rashes or lesions noted Neuro General: not alert and patient awake Extrem General: normal to inspection Results Labs 01/14/23 09:15 01/14/23 09:15 Lab results: Cardiac Enzymes 01/14/23 01/14/23 01/14/23 Range/Units 09:15 09:15 09:15 AST 16 (13-39) U/L Total Creatine Kinase 119 (30-223) U/L B-Natriuretic Peptide 191.0 H (5-100) pg/mL CBC 01/14/23 Range/Units 09:15 RBC 3.64 (3.60-5.00) X10E6/uL Hgb 11.4 L (11.8-15.4) g/dL Hct 33.5 L (34.0-46.4) % Plt Count 183 (150-450) x10E3/uL Neut # (Auto) 3.1 (1.8-7.7) x10E3/uL Lymph # (Auto) 2.1 (1.00-4.8) x10E3/uL Lincoln # (Auto) 0.5 (0.0-0.8) x10E3/uL Eos # (Auto) 0.2 (0.0-0.45) x10E3/uL Baso # (Auto) 0.0 (0.0-0.2) x10E3/uL Comprehensive Metabolic Panel 01/14/23 Range/Units 09:15 Sodium 141 (136-145) mmol/L Potassium 3.1 L (3.5-5.1) mmol/L Chloride 107 (98-107) mmol/L Carbon Dioxide 21.9 (21.0-31.0) mmol/L BUN 20 (7-25) mg/dL Creatinine 0.86 (0.60-1.20) mg/dL Glucose 132 H (70-100) mg/dL Calcium 8.7 (8.6-10.3) mg/dL AST 16 (13-39) U/L ALT 13 (7-52) U/L Alkaline Phosphatase 49 (34-104) U/L Total Protein 6.4 (6.4-8.9) gm/dL Albumin 4.3 (3.5-5.7) gm/dL Intake and Output 01/13/23 01/14/23 01/14/23 23:59 07:59 15:59 Other: # Bowel Movements 1 Weight 74 kg Patient Weight 01/14/23 23:59 Weight 74 kg Lab 01/14/23 09:15 PT 11.9 INR 1.0 APTT 274.4 H* EKG Interpretations EKG EKG results cardiology: sinus rhythm UT, pacemaker, normal Myocardial infarction: anterior UT (acute or recent) and lateral UT (acute or recent) A&P - Cardiology (1) ST elevation (STEMI) myocardial infarction: Code(s): I21.3 - ST elevation (STEMI) myocardial infarction of unspecified site (2) History of heart artery stent: Code(s): Z95.5 - Presence of coronary angioplasty implant and graft (3) High cholesterol: Code(s): E78.00 - Pure hypercholesterolemia, unspecified (4) Hypertension: Code(s): I10 - Essential (primary) hypertension Documented By: Allan Marroquin DO 01/14/23 1033 Signed By: <Electronically signed by Allan Marroquin DO> 01/14/23 1041 [facility] Work Phone: 1(722) 464-460406-14-2023 History and physical note Author Allan Marroquin [facility] January 14, 2023 10:41am Note Date/Time January 14, 2023 10:4 1am [facility] [address] [place] [address] Cardiology H&P Signed Patient: Atiya Jha MR#: [id number] : 1940 Acct:[id number] Age/Sex: 82 / F Adm Date: 3 Loc: Room: Type: [facility] Attending Dr: Allan Marroquin DO Copies to: MD Allan Dorado DO~ Date of Service: 01/14/2023 Cardiology HPI History of Present Illness Chief complaint: Anterolateral STEMI HPI: Ms. Jha is a 82 year old female admitted through the emergency room in transfer from [facility] at 0905 with anterolateral STEMI. Symptoms began earlier this morning, patient was transported by squad, prearrival ECGs were reviewed by myself via telephonic communication and communication with ER attending. Patient arrived at [facility] at 0923, having received up stream antiplatelet and antithrombotic and nitrate therapy; underwent PCI of infarct vessel at 0937. The door to device time was 32 minutes. Past medical history is noted for ASHD with very [place] of the [place], hypertension, hyperlipidemia. Current primary care physician is Dr. Danis Huang. She has not received any cardiology follow-up for a number of years per her family's report. Patient arrives to the [facility] hypertensive, in sinus rhythm without arrhythmias, ongoing chest discomfort, no evidence of cardiogenic shock Cath and intervention ensued without complications Total 60 minutes of nonprocedural critical care time were devoted to the ER staff, [facility] staff, nursing staff, patient and family both pre and post procedurally. Review of Systems Review of Systems All other systems reviewed & are negative unless noted below or in HPI Constitutional Constitutional: Reports as per HPI Cardiovascular Cardiovascular: Reports as per HPI and Reports chest pain at rest Respiratory Respiratory: Reports system reviewed and no additional complaints, except as documented Gastrointestinal Gastrointestinal: Reports system reviewed and no additional complaints, except as documented Genitourinary Genitourinary: Reports system reviewed and no additional complaints, except as documented Musculoskeletal Musculoskeletal: Reports system reviewed and no additional complaints, except asdocumented Neurologic Neurologic: Reports system reviewed and no additional complaints, except as documented PMFSH Vaccinated for COVID-19?: Unknown Medical History (Updated 01/14/23 @ 10:41 by Allan Marroquin DO) High cholesterol Hypertension Social History Smoking Status: Unknown if ever smoked Substance Use Type: None Meds Medications and Allergies Allergies No Known Allergies Allergy (Verified 01/14/23 10:04) Home Medications aspirin 81 mg tablet,delayed release (Aspir-) 81 mg PO DAILY 11/02/17 [History Confirmed 06/16/18] atenolol 25 mg tablet 25 mg PO DAILY 11/02/17 [History Confirmed 06/16/18] irbesartan 150 mg-hydrochlorothiazide 12.5 mg tablet 1 tab PO DAILY 11/02/17 [History Confirmed 06/16/18] omeprazole magnesium 20 mg tablet,delayed release (Prilosec OTC) 20 mg PO DAILY 11/02/17 [History Confirmed 06/16/18] pravastatin 40 mg tablet 1 tab PO DAILY 11/02/17 [History Confirmed 06/16/18] Exam Physical Exam Vital Signs: Temp Pulse Resp BP Pulse Ox O2 Del Method 96.7 F L 74 20 167/93 H 97 Room Air 01/14/23 09:15 01/14/23 09:19 01/14/23 09:14 01/14/23 09:19 01/14/23 09:19 01/14/23 09:19 Const General: acute distress, frail appearing and lethargic Nutritional Appearance: thin Orientation: not alert and awake HEENT Head: normal to inspection Neck Neck: normal visual inspection Chest Chest palpation & inspection: normal inspection of the chest Resp Effort & Inspection: normal respiratory effort Cardio Rate: regular rate and tachycardic Rhythm: regular rhythm Heart Sounds: S1 normal and S2 normal Pulses: radial pulses present and femoral pulses present GI Palpation: soft Skin General: no rashes or lesions noted Neuro General: not alert and patient awake Extrem General: normal to inspection Results Labs 01/14/23 09:15 01/14/23 09:15 Lab results: Cardiac Enzymes 01/14/23 01/14/23 01/14/23 Range/Units 09:15 09:15 09:15 AST 16 (13-39) U/L Total Creatine Kinase 119 (30-223) U/L B-Natriuretic Peptide 191.0 H (5-100) pg/mL CBC 01/14/23 Range/Units 09:15 RBC 3.64 (3.60-5.00) X10E6/uL Hgb 11.4 L (11.8-15.4) g/dL Hct 33.5 L (34.0-46.4) % Plt Count 183 (150-450) x10E3/uL Neut # (Auto) 3.1 (1.8-7.7) x10E3/uL Lymph # (Auto) 2.1 (1.00-4.8) x10E3/uL [place] # (Auto) 0.5 (0.0-0.8) x10E3/uL Eos # (Auto) 0.2 (0.0-0.45) x10E3/uL Baso # (Auto) 0.0 (0.0-0.2) x10E3/uL Comprehensive Metabolic Panel 01/14/23 Range/Units 09:15 Sodium 141 (136-145) mmol/L Potassium 3.1 L (3.5-5.1) mmol/L Chloride 107 (98-107) mmol/L Carbon Dioxide 21.9 (21.0-31.0) mmol/L BUN 20 (7-25) mg/dL Creatinine 0.86 (0.60-1.20) mg/dL Glucose 132 H (70-100) mg/dL Calcium 8.7 (8.6-10.3) mg/dL AST 16 (13-39) U/L ALT 13 (7-52) U/L Alkaline Phosphatase 49 (34-104) U/L Total Protein 6.4 (6.4-8.9) gm/dL Albumin 4.3 (3.5-5.7) gm/dL Intake and Output 01/13/23 01/14/23 01/14/23 23:59 07:59 15:59 Other: # Bowel Movements 1 Weight 74 kg Patient Weight 01/14/23 23:59 Weight 74 kg Lab 01/14/23 09:15 PT 11.9 INR 1.0 APTT 274.4 H* EKG Interpretations EKG EKG results cardiology: sinus rhythm UT, pacemaker, normal Myocardial infarction: anterior UT (acute or recent) and lateral UT (acute or recent) A&P - Cardiology (1) ST elevation (STEMI) myocardial infarction: Code(s): I21.3 - ST elevation (STEMI) myocardial infarction of unspecified site (2) History of heart artery stent: Code(s): Z95.5 - Presence of coronary angioplasty implant and graft (3) High cholesterol: Code(s): E78.00 - Pure hypercholesterolemia, unspecified (4) Hypertension: Code(s): I10 - Essential (primary) hypertension Documented By: Allan Marroquin DO 01/14/23 1033 Signed By: <Electronically signed by Allan Marroquin DO> 01/14/23 1041 [facility] Work Phone: 1(601) 898-663706-01-2023 Evaluation note* Encounter Date Diagnosis Assessment Notes Treatment Notes Treatment Clinical Notes Jan, Elevated cholesterol (ICD-10 - E78.00) [employer] Other 05-03-2023 Evaluation note* Encounter Date Diagnosis Assessment Notes Treatment Notes Treatment Clinical Notes December, Stage 3a chronic kidney disease (ICD-10 - N18.31) [employer] Other 02-15-2023 Evaluation note* Encounter Date Diagnosis Assessment Notes Treatment Notes Treatment Clinical Notes Sep, Stage 3a chronic kidney disease (ICD-10 - N18.31) The patient is instructed on adequate control of hypertension and diabetes, if appropriate. They are also educated on the associated risks of NSAIDs and PPI use with kidney disease. They were instructed on adequate fluid balance and to avoid dehydration. Sep, ASHD (arteriosclerotic heart disease) (ICD-10 - I25.10) This patient is stable without activity related CP, dyspnea or lightheadedness. They are instructed to continue exercise and AHA diet plan. Sep, Primary hypertension (ICD-10 - I10) This patient is instructed to consume a healthy, low-fat, low-salt diet. They are also encouraged to continue exercise to achieve/maintain a normal BMI. Sep, Breast pain in female (ICD-10 - N64.4) Reassure, continue SBE w/ inspection. Notify office w/ any palpable mass, nipple d/c, skin color change. Sep, Elevated cholesterol (ICD-10 - E78.00) Sep, Polyuria (ICD-10 - R35.89) Push fluids, cranberry juice, recheck UA if symptoms increase Sep, Diarrhea, unspecified type (ICD-10 - R19.7) Diet instructions, monitor for now. Notify office w/ any change in appetite, weight, abdominal pain/cramping or rectal bleeding. [employer] Other 02-14-2023 Evaluation note* Encounter Date Diagnosis Assessment Notes Treatment Notes Treatment Clinical Notes Sep, Elevated cholesterol (ICD-10 - E78.00) [employer] Other 02-25-2011 Nurse Note* 09/27/2010 12:00 PM EST >> MONICA OCONNOR LPN Fri Sep 27, 2010 2:49 PM AMBULATORY PATIENT EDUCATION NOTE READINESS TO LEARN COGNITIVE ABILITY: Alert and oriented MOTIVATION TO LEARN: Interested FAMILY SUPPORT: None - Unavailable/disinterested INSTRUCTION PROVIDED TO: Patient PATIENT LEARNS BEST BY: Individual Instruction FACTORS AFFECTING LEARNING: None PHYSICAL LIMITATIONS AFFECTING LEARNING: None LEARNING RESPONSE DIAGNOSIS: pain EDUCATION TOPIC/ TEACHING POINTS: Procedure / Surgery: hip injection METHOD OF INSTRUCTION: Individual instruction PATIENT / FAMILY RESPONSE: Verbalizes understanding of: INFECTION MANAGEMENT- Signs and symptoms of an infection and importance of contacting the physician FOLLOW-UP PLAN: Complete - No need for follow-up SUPPLEMENTAL MATERIAL: Procedure discharge instructions REFERRAL (RECOMMENDATION): None Electronically Signed By Monica Oconnor Lpn In Department: PAIN MANAGEMENT [facility] History general Narrative - Reported* Type Description Date Medical History HTN Medical History Hypercholesterolemia Surgical History Heart Catheterization/Stents pl aced 11/1999 Surgical History Breast Reduction 1999 Surgical History Abdominoplasty 2001 Surgical History Trigger finger, left 2005 Surgical History Cataracts, bilateral 2010 Surgical History Left hip replacement 03/2011 Surgical History Eyelids lifted Hospitalization History See past surgical hx [employer] Other 04-01-2000 History general Narrative - Reported* Type Description Date Medical History HTN Medical History Hypercholesterolemia Medical History CKD stage 3a Surgical History Heart Catheterization/Stents pl aced 11/1999 Surgical History Breast Reduction 1999 Surgical History Abdominoplasty 2001 Surgical History Trigger finger, left 2005 Surgical History Cataracts, bilateral 2010 Surgical History Left hip replacement 03/2011 Surgical History Eyelids lifted Hospitalization History See past surgical hx [employer] Other 04-01-2000 History general Narrative - Reported* Type Description Date Medical History HTN Medical History Hypercholesterolemia Medical History CKD stage 3a Medical History ASHD Surgical History Heart Catheterization/Stents pl aced 11/1999 Surgical History Breast Reduction 1999 Surgical History Abdominoplasty 2002 Surgical History Trigger finger, left 2005 Surgical History Cataracts, bilateral 2010 Surgical History Left hip replacement 03/2011 Surgical History Eyelids lifted Surgical History PCI/stent LCX, PTCA distal LAD 01/2023 Hospitalization History See past surgical hx [employer] Other 04-01-2000 History general Narrative - Reported* Type Description Date Surgical History Heart Catheterization/Stents pl aced 11/1999 Surgical History Breast Reduction 1999 Surgical History Abdominoplasty 2002 Surgical History Trigger finger, left 2005 Surgical History Cataracts, bilateral 2010 Surgical History Left hip replacement 03/2011 Surgical History Eyelids lifted Surgical History PCI/stent LCX, PTCA distal LAD 01/2023 Surgical History Trigger finger right hand 06/22 23 Surgical History CTR right 06/2023 Hospitalization History See past surgical hx [facility] (acquired by [employer]) Other Evaluation noteNo Information[facility]ortWashington [facility]ac[facility] by [employer]) Other Evaluation note* Diagnosis Onset Date Resolution Status High cholesterol acute History of heart artery stent acute Hypertension acute ST elevation (STEMI) myocardial infarction acute [facility] Work Phone: Evaluation note* Diagnosis ASCVD (arteriosclerotic cardiovascular disease)- Primary Unspecified cardiovascular disease Essential hypertension Unspecified essential hypertension Mixed hyperlipidemia Congestive heart failure, NYHA class 2 and ACC/AHA stage C (CMS/HCC) History of PTCA Postsurgical percutaneous transluminal coronary angioplasty status documented in this encounter [facility] Work Phone: History of Present illness NarrativePatient returns in follow-up of problems as noted. She doing well. She has no other symptoms of coronary disease that preceded her original diagnosis and subsequent PTCA. Control and/or management ofrisk factors including essential hypertension and hyperlipidemia is reviewed and control is felt carson adequate and appropriate. As before the merits of a modest diet and weight loss were advocated.-[facility] DO Work Phone: Hospital Discharge instructions Additional Instructions DISCHARGE INSTRUCTIONS FOR ANGIOPLASTY/CORONARY/PERIPHERAL/STENT IMPLANT FOR ADULT ANTICOAGULATION -Since the greatest risk of a blood clot forming with the stent occurs in the first 2-3 weeks after implantation, you will need to take anticoagulants for at least x 1 yr ANTICOAGULATION MEDICATION Aspirin 81mg once a day, Ticagrelor (Brilinta) 90mg twice a day STATIN MEDICATION [INSERT MEDICATION NAME: atorvastatin (Lipitor) 80 mg [Drug-Eluting Stent (GRIFFIN) duration] DO NOT discontinue Brilinta/Aspirin during the first few months regardless of what you are advised by your family doctor or pharmacist, without first calling the bench hand machine who implanted the stent. If you require pain relief during this time, please take only ACETAMINOPHEN (TYLENOL)- NO additional aspirin or ibuprofen. DISCHARGE ACTIVITIES ARE FOLLOWS: First week after discharge: -Take it easy at home, no strenuous activity. -Do not lift or pull objects over 10-15 pounds, including children, and groceries for four weeks. If puncture site is at wrist do NOT lift more than three pounds for three days. - May walk up stairs. -May shower. -No excessive scrubbing of the affected site (groin). -May ride in car. -May resume sexual intercourse after 1-2 weeks. -No MRI for 12 days. -May drive in 4-7 days. -If puncture site is at the wrist do not manipulate the wrist for 24 hours, and no soaking wrist for three days. Second Week: -May take a bath -May start walking 3 times a week for 15-20 minutes at a leisurely pace. You should be able to carry on a conversation comfortably without feeling winded. -No strenuous activity as in jogging, running, weight lifting, stair steppers, etc. until the bench hand machine approves these activities. Check with the bench hand machine on your first follow-up visit. CALL YOUR PHYSICIAN at [phone]: -If bleeding should occur from the catheter insertion site- apply pressure to the site then immediately call us. -Report any fever, redness, drainage, increased swelling, or firmness at the catheter insertion site. Some bruising or slight swelling may be present at the time of discharge. -Should arm or leg become cold, numb, white, or blue, contact the bench hand machine immediately. -IF you should experience episodes of angina, e.g. chest discomfort, heaviness, tightness, pressure burning with or without radiation to the neck, jaw, arms or back- use 1 Nitrostat tablet under your tongue every 5-10 minutes and up to three tablets. IF NO RELIEF, CALL 911 or GO TO THE NEAREST EMERGENCY ROOM. -Please notify our office if you have recurrent angina. -[Cardiac Rehab Education Provided. Participation in the Cardiopulmonary Rehabilitation program is recommended. Please call Central Scheduling at [phone] to schedule your appointment.] The attending bench hand machine or [facility] nurse clinician should provide you with specific instructions regarding activity, diet, medications, and further follow up for you. Follow the medication instructions provided on your discharge. If the dosages and instructions on this sheet differ from the dosage and instructions on the bottle, follow the instructions on the bottle. [facility] is not responsible for incorrect prescription information provided by the patient during their visit. Do not stop your medications without consulting your health care provider. Please take the list with you to your next doctor's appointment.[facility] Work Phone: Reason for referral (narrative)* Consultation (Routine) - Authorized Specialty Diagnoses / Procedures Referred By Contac t Referred To Contact Cardiology Diagnoses ASCVD (arteriosclerotic cardiovascular disease) Procedures Follow Up In Cardiology Darryl Wu MD [address] [place] [address] [address] [address] Darryl Wu MD [address] [place] [address] [address], [address] [address] Referral ID Status Reason Start Date Expiration Date V isits Requested Visits Authorized [id number] Authorized 06/15/2023 06/14/2024 1 1 [facility] Work Phone: Summary Purpose Family History No Family History Records FoundUnknown Family Member Name Dates Details Family history of arterioscl erotic cardiovascular disease: Father, Sister, Brother(V17.49, Z82.49) Status:Active Relationship Condition Age at Onset Recorded Date/T seble Not Specified Congestive heart failure Unknown Hypertension Unknown sister Myocardial infarction Unknown father Myocardial infarction Unknown Unknown Family Member Name Dates Details Family history of arterioscl erotic cardiovascular disease: Father, Sister, Brother(V17.49, Z82.49) Status:Active Unknown Family Member Name Dates Details Family history of arterioscl erotic cardiovascular disease: Father, Sister, Brother(V17.49, Z82.49) Status:Active Unknown Family Member Name Dates Details Family history of arterioscl erotic cardiovascular disease: Father, Sister, Brother(V17.49, Z82.49) Status:Active Advance Directives No Advanced Directives Records FoundDocuments on File Type Date Recorded Patient [employer] Expl anation Advance Directive(s) Advance Directive Response Recorded Date/ Time Advance Directives No 2017 6:23pm Chief Complaint ATIYA JHA is being seen for a 6 month follow-up of.* ATIYA JHA is being seen for follow-up of a hospitalization for. * 82-year-old female returns for follow-up following recent acute myocardial infarction with primary revascularization of the mid circumflex with a 2.25 mm stent and balloon angioplasty of the occludeddistal LAD with 1.25 and 1.5 mm balloons (too small to stent). She has severe LV dysfunction with ejection fraction 35%. She is doing well, with no symptoms of shortness of breath or exertional dyspnea or angina, ambulating without any difficulty other than with her cane. He is on appropriate guideline directed medical therapies as tolerated and has had no recurrent hospitalizations, she has no hematoma. Her NYHA classification currently is class II/C * Recommendations, proceed with cardiac rehab referral, obtain a MUGA scan within the next 4 to 6 weeks, follow-up again with Dr. Wu in 4 months for further adjudication in regards to advancing therapies and/or need for AICD Chief Complaint and Reason for Visit Chief Complaint stemi Reason for Visit High cholesterol History of heart artery stent Hypertension ST elevation (STEMI) myocardial infarction Additional Source Comments INFORMATION SOURCE (unrecogn ized section and content) DATE CREATED AUTHOR 01/26/2018 [facility] DATE CREATED AUTHOR AUTHOR'S ORGANIZ ATION 06/05/2022 [employer] DATE CREATED AUTHOR AUTHOR'S ORGANIZ ATION 12/11/2022 [facility] DATE CREATED AUTHOR AUTHOR'S ORGANIZ ATION 01/24/2023 [facility] DATE CREATED AUTHOR AUTHOR'S ORGANIZ ATION 03/13/2023 [facility] DATE CREATED AUTHOR AUTHOR'S ORGANIZ ATION 03/19/2023 [facility] DATE CREATED AUTHOR AUTHOR'S ORGANIZ ATION 08/13/2023 [facility] EPIC Source Comments (unrecognize d section and content) In the event this informatio n is protected by the Federal Confidentiality of Alcohol and Drug Abuse Patient Records regulations: The Federal rules restrict any use of the information to criminally investigate or prosecute any alcohol or drug abuse patient.[facility] Reason for Visit (unrecogniz ed section and content) Reason Comments Patient Education Reason Comments Annual Exam Care Teams (unrecognized sec tion and content) Team Status: Active Member Role Status Dates Porfirio Vu MD Primary Care Provider Active Team Status: Active Member Role Status Dates Chaitanya Luna , Emergency Provider Active Porfirio Vu MD Primary Care Provider Active W Ziyad Marroquin , DO Admit Provider, Attending Provide r Active Odalis Hager MD Other Provider Active Team Status: Active Member Role Status Dates Danis Huang DO Primary Care Provider Active Team Status: Inactive Member Role Status Dates Chaitanya Luna DO Emergency Provider Active Allan Marroquin , DO Admit Provider, Attending Provide r Active Danis Huang DO Primary Care Provider Active Odalis Hager MD Other Provider Active 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 This clinical summary was aggregated from multiple sources. Caution should be exercised in using it in the provision of clinical care. This summary normalizes information from multiple sources, and as a consequence, information in this document may materially change the coding, format and clinical context of patient data. In addition, data may be omitted in some cases. CLINICAL DECISIONS SHOULD BE BASED ON THE PRIMARY CLINICAL RECORDS. [facility] [employer] [facility]. provides no warranty or guarantee of the accuracy or completeness of information in this document.
== END 2023-08-14 10:05 | disposition home or self-care (01) ==
LOC: RAD 10:05
PROVIDERS: PCP Internal Medicine; Visit Provider Internal Medicine
DX: M54.50 Low back pain, unspecified (principal); M51.35 Other intervertebral disc degeneration, thoracolumbar region
CPT/HCPCS: 72072; 72100

== ENCOUNTER 2023-10-20 14:48 | Outpatient (OUT) | payer OTHER, SELFPAY ==
[2023-10-20 15:09] LABS: Basophils Percent Auto 0.4 % (0.2-2.0); Eosinophils Absolute Auto 0.2 10^3/uL (0.0-0.7); Eosinophils Percent Auto 3.2 % (0.9-7.0); Hematocrit 37.9 % (36.0-48.0); Hemoglobin 12.4 g/dL (12.0-16.0); Immature Granulocytes Abs Auto 0.01 10^3/uL (0.00-0.03); Immature Granulocytes Pct Auto 0.1 % (0.0-0.5); Lymphocytes Percent Auto 29.4 % (20.5-60.0); Mean Corpuscular HGB Conc 32.7 g/dL (29.9-35.2); Mean Corpuscular Hemoglobin 30.7 pg (26.7-34.0); Mean Corpuscular Volume 93.8 fL (81.0-99.0); Mean Platelet Volume 9.5 fL (9.5-13.5); Monocytes Absolute Auto 0.7 10^3/uL (0.3-0.8); Monocytes Percent Auto 9.7 % (1.7-12.0); Neutrophils Absolute Auto 3.9 10^3/uL (1.4-6.5); Neutrophils Percent Auto 57.2 % (43.0-75.0); Platelet Count 212 10^3/uL (150-450); Red Blood Count 4.04 10^6/uL (4.20-5.40); Red Cell Distribution Width 13.2 % (11.0-15.0); White Blood Count 6.8 10^3/uL (4.0-11.0)
[2023-10-20 15:40] LABS: Alanine Aminotransferase 23 U/L (14-59); Albumin Globulin Ratio 1.3; Albumin Level 4.1 g/dL (3.4-5.0); Alkaline Phosphatase 71 U/L (46-116); Anion Gap 12.6; Aspartate Amino Transferase 15 U/L (15-37); BUN Creatinine Ratio 25.5; Bilirubin Total 0.8 mg/dL (0.2-1.0); Calcium 9.5 mg/dL (8.5-10.1); Carbon Dioxide 28.1 mmol/L (21.0-32.0); Chloride 98 mmol/L (98-107); Estimated GFR (African America 57 (>=60); Estimated GFR (Non-African Ame 47 (>=60); Globulin 3.2 g/dL; Glucose 95 mg/dL (74-106); Potassium 3.7 mmol/L (3.5-5.1); Sodium 135 mmol/L (136-145); Thyroid Stimulating Hormone 0.894 uIU/mL (0.358-3.740); Total Protein 7.3 g/dL (6.4-8.2)
[2023-10-20 15:53] LABS: Percent Iron Saturation 36.2 %
== END 2023-10-20 14:49 | disposition home or self-care (01) ==
LOC: LAB 14:48
PROVIDERS: PCP Internal Medicine; Visit Provider Internal Medicine
DX: R53.83 Other fatigue (principal); I10 Essential (primary) hypertension; D64.9 Anemia, unspecified; R11.0 Nausea; I21.3 ST elevation (STEMI) myocardial infarction of unspecified site
CPT/HCPCS: 36415; 80053; 82607; 82728; 82746; 83540; 83550; 84443; 85025

== ENCOUNTER 2023-11-25 15:30 | Outpatient (OUT) | payer OTHER, SELFPAY ==
--- OUTSIDE RECORDS SUMMARY | 2023-11-25 15:54 | XMS_ITS | CCD ---
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 Name Role Phone BUSBYBONIFACIOARNULFO Dodson Unavailable Unavailable PORFIRIO VU Unavailable Unavailable Porfirio Vu Primary Care Provider [phone] Danis Barreto Unavailable Unavailable Unavailable Danis Barreto Unavailable DR DARRYL SANTILLAN Admitting Unavailable MARY LOU, DR LOVE Primary Care Unavailable TYRELL, DR SUNG Attending Unavailable TYRELL, DR SUNG Consulting Unavailable MEHRAN ., DR GAINES Consulting Unavailangel BARRETO, DR LOVE Primary Care Unavailable KARJOSE ., DR GAINES Admitting Unavailabl e KARASIK ., DR GAINES Attending Unavailabl e KARASIK ., DR GAINES Attending Unavailabl e KARASIK ., DR GAINES Consulting Unavailabl e MARY LOU, DR LOVE Primary Care Unavailable KARASIK ., DR GAINES Admitting Unavailabl e YOSELIN KING Consulting Unavailable DO Chaitanya Lu Emergency Provider MD Porfirio Vu Primary Care Provider DO Allan Townsend Admit Provider DO Allan Townsend Attending Provider MD Odalis Hager Other Provider DO Danis Barreto Primary Care Provider Dr. Danis Barreto Primary Care Kelly Barreto, Dr. Danis Goodrich Primary Care Kelly Barreto, Dr. Danis Goodrich Primary Care Kelly Barreto, Dr. Danis Goodrich Primary Care Kelly Barreto, Dr. Danis Goodrich Primary Care Kelly Santillan II, Dr. Darryl Arthur Attending Unavailable Tyrell NAVAS, Dr. Darryl Arthur Referring Unavailable Mary Lou, Dr. Danis Goodrich Primary Care Kelly Barreto, Dr. Danis Goodrich Primary Care Kelly Santillan II, Dr. Darryl Arthur Attending Unavailable Tyrell II, Dr. Darryl Arthur Referring Unavailable Johnuinofelia II, Dr. Darryl Arthur Attending Unavailable Mary Lou, Dr. Danis Goodrich Primary Care Kelly Barreto DO, Danis Goodrich Primary Care Provider AIDAN SUAZO Attending Unavailable APLING, MERCEDEZ Dodson Attending Unavailable BLACKSTON, JONI Attending Unavailable APLING, MERCEDEZ Dodson Referring Unavailable RUSHERYOSELIN Attending Unavailable APLING, MERCEDEZ Dodson Attending Unavailable APLING, MERCEDEZ Dodson Referring Unavailable APLING, MERCEDEZ Dodson Attending Unavailable APLING, MERCEDEZ Dodson Attending Unavailable Danis Barreto DO Primary Care Provider CELINA LIAO Attending Unavailable DANIS BARRETO Referring Unavailable DANIS BARRETO Primary Care Unavailable Danis Barreto DO Primary Care Provider DARRYL SANTILLAN Referring Unavailable DANIS BARRETO Primary Care Unavailable DARRYL SANTILLAN Referring Unavailable DANIS BARRETO Primary Care Unavailable DO Danis Barreto Primary Care Provider [phone] DO Allan Townsend Attending Provider [phone] DARRYL SANTILLAN Attending Unavailable DANIS BARRETO Primary Care Unavailable Allan Townsend Admitting Unavailable Danis Barreto Primary Care Unavailable Allan Townsend Attending Unavailable Allan Townsend Admitting Unavailable Danis Barreto Primary Care Unavailable Allan Townsend Attending Unavailable Allan Townsend Attending Unavailable Allan Townsend Admitting Unavailable ChaOdalis machado Consulting Unavailable Danis Barreto Primary Care Unavailable Medications Current Medications Medication Drug Class(es) Dates Sig (Normalized) Sig (Original) acetaminophen 500 mg oral tablet (2 sources) Start: 11-16-2023 take 2 tablets by mouth every six hours Acetaminophen (Tylenol Extra Strength) 500 mg tablet Active 1000 MG PO Every 6 hours November 16, 2023 12:00am alendronic acid 70 mg oral tablet (20 sources) Bisphosphonate Start: 05-28-2022 take 70 mg by mouth every week Alendronate Active 70 MG PO every week January 14, 2023 12:00am EVERY THURSDAY take 1 tablet by mouth in the mo rning alendronate (Fosamax) 70 mg tablet Take 1 tablet (70 mg) by mouth every 7 days. Take in the morning with a full glass of water, on an empty stomach, and do not take anything else by mouth or lie down for the next 30 min. Active take 1 tablet by mouth once jasiel y Alendronate Sodium 70 MG 1 tablet 30 minutes before the first food, beverage or medicine of the day with plain water Orally Active aspirin 81 mg delayed release oral [...] mg / cholecalciferol 200 unt oral tablet (11 sources) Vitamin D take 1 tablet by mouth once daily calcium carbonate-vitamin D3 500 mg-5 mcg (200 unit) tablet Take 1 tablet by mouth once daily. Active Calcium Carbonate / vitamin D3 (1 source) Start: 024 take 1 tablet by mouth once daily Calcium Carbonate-Vitamin D3 Active 1 TAB PO Daily November 17, 2023 12:00am carvedilol 6.25 mg oral tablet (20 sources) alpha-Adrenergic Elpidio, beta-Adrenergic Elpidio Start: 023 take 6.25 mg by mouth twice daily at mealtime Carvedilol Active 6.25 MG PO Twice daily with meals 60 January 16, 2023 12:00am cetirizine hydrochloride 10 mg oral tablet (2 sources) Histamine-1 Receptor Antagonist Start: 023 take 1 tablet by mouth every twenty-four hours Cetirizine HCl 10 MG 1 tablet Orally Once a day for 30 days Mar, Active docusate sodium 50 mg oral capsule (20 sources) Start: 023 take 50 mg by mouth twice daily Docusate Sodium Active 50 MG PO Twice daily January 14, 2023 12:00am take 1 capsule by mo [facility] once daily as needed Docusate Sodium 50 MG 1 capsule as neede d Orally Once a day Active Docusate Sodium TABS TAKE 1 TABLET DAILY DIRECTED. Quantity: 0 Refills: 0 Ordered: 05-Feb-2023 DO Active hydroCHLOROthiazide 12.5 mg / telmisartan 80 mg oral tablet (20 sources) Thiazide Diuretic, Angiotensin 2 Receptor Elpidio Start: 11-17-2023 take 1 tablet by mouth once daily Telmisartan-Hydrochlorothiazid (Micardis Hct) 80-12.5 mg tablet Active 1 TAB PO Daily November 17, 2023 12:00am Start: 01-14-2023 End: 11-17-2023 take 1 tablet by mouth once daily Telmisartan-Hydrochlorothiazid Discontin ued 1 TAB PO Daily January 14, 2023 12:00am November 17, 2023 12:54pm Start: 05-29-2022 Telmisartan-HC TZ 40-12.5 MG Oral Tablet Quantity: 30 Refills: 0 Ordered: 29-May-2022 DO Start : 29-May-2022 Complete [facility] daily telmisartan-hydrochlorothiazid (MIcarDIS HCT) 80-12.5 mg tablet Take 1 tablet by mouth once daily. Active End: 10-27-2023 take 1 tablet by mouth once in the morning telmisartan-hydroCHLOROthiazid (MICARDIS HCT) 40-12.5 mg per tablet Take 1 tablet by mouth in the morning. 0 10/27/2023 Discontinued (Therapy completed) 24 hr nitroglycerin 0.2 mg/hr transdermal system (20 sources) Nitrate Vasodilator Start: 11-19-2023 apply 0.2 mg transdermal route every hour, then apply 1 dose transdermal route every twenty-four hours Nitroglycerin (Nitro-Dur) 0.2 mg/hr patch 24 hour Active 1 PATCH TRANSDERML Daily November 19, 2023 12:00am allow nitrate-free interval of approx. 10-12 hrs per 24-hour period Start: 01-16-2023 Nitroglycerin Active 0.4 MG SUBLINGUAL Q5M January 16, 2023 12:00am Nitroglycerin 0. 4 MG as directed Sublingual Active Omeprazole Magnesium (Prilosec Otc) 20 mg Tablet,Delayed Release (Dr/Ec) (5 sources) Start: 11-02-2017 take 1 tablet by mouth once daily Omeprazole Magnesium (Prilosec Otc) 20 mg Tablet,Delayed Release (Dr/Ec) Active 20 MG PO Daily November 02, 2017 12:00am pravastatin sodium 80 mg oral tablet (16 sources) HMG-CoA Reductase Inhibitor Start: 09-17-2022 take [...] twice a day for 100 days Active tamsulosin (2 sources) alpha-Adrenergic Elpidio take 70 mg by mouth every week tamsulosin HCl (FLOMAX ORAL) Take 70 mg by mouth once a week. 0 Active ticagrelor 90 mg oral tablet (20 sources) Start: 01-17-20 End: 06-15-20 take 1 tablet by mouth twice daily Ticagrelor (Brilinta) 90 mg Tablet Active 90 MG PO Twice daily January 16, 2023 12:00am {20 (nirmatrelvir 150 MG Oral Tablet) / 10 (ritonavir 100 MG Oral Tablet) } Pack [Paxlovid 5-Day] (1 source) Start: 10-31-19 take 3 tablets by mouth every twelve [...] 02-Oct-2021 Complete atenolol 25 mg oral tablet (13 sources) beta-Adrenergic Elpidio Start: 04-02-2022 take 0.5 [...] Comment on above: Take one(1) tablet d aily. atorvastatin 40 mg oral tablet (20 sources) HMG-CoA Reductase Inhibitor Start: take 2 tablets by mouth once daily Atorvastatin Calcium 40 MG Oral Tablet TAKE 2 TABLET Daily Quantity: 180 Refills: 0 Ordered: 19-Mar-2023 Darryl Santillan MD Start : 19-Mar-2023 Active Patient states she cannot swallow an 80 mg tablet Start: 01-16-2023 take 80 mg by mouth once daily in the evening Atorvastatin Active 80 MG PO Every evening January 16, 2023 12:00am cholecalciferol 0.025 mg oral capsule (20 sources) Vitamin D Start: 01-14-2023 End: 11-17-2023 take 1 capsule by mouth once daily Cholecalciferol (Vitamin D3) (Vitamin D3) 25 mcg (1,000 unit) Capsule Discontinued 25 MCG PO Daily January 14, 2023 12:00am November 17, 2023 12:55pm cholecalciferol, vitamin D3, (VITAMIN D3) 5,000 units capsule Take 1,000 Units by mouth daily. 0 Active take 1 capsule by mo ut in the morning cholecalciferol, vitamin D3, 25 mcg (1,0 00 unit) capsule Take 1 capsule (1,000 Units total) by mouth in the morning. 0 Active take 1 capsule by mo ut every twenty-four hours Vitamin D3 50 MCG (1999 UT) 1 capsule Or ally Once a day Active 24 hr darifenacin 7.5 mg extended release oral tablet (1 source) Cholinergic Muscarinic Antagonist Start: 07-08-2007 darifenacin hydrobromide(ENABLEX 7.5 MG 24 HR TAB) ONE IN AM AND 1 IN THE PM 0 07/08/2007 Active Comment on above: ONE IN AM AND 1 IN T HE PM diclofenac sodium 75 mg delayed release oral tablet (5 sources) Nonsteroidal Anti-inflammator y Drug Start: 11-02-2017 End: 06-16-2018 take 75 mg by mouth twice daily Diclofenac Sodium Discontinued 75 MG PO Twice daily November 02, 2017 12:00am June 16, 2018 2:38pm ferrous sulfate 325 mg oral tablet (2 sources) End: 10-27-2023 take 1 tablet by mouth once daily at breakfast ferrous sulfate 325 (65 FE) mg tablet Take 1 tablet (325 mg total) by mouth daily with breakfast. 0 10/27/2023 Discontinued (Therapy completed) hydroCHLOROthiazide 12.5 mg / irbesartan 150 mg oral tablet (1 source) Thiazide Diuretic, Angiotensin 2 Receptor Elpidio Start: 12-13-2009 irbesartan/hydrochloro thiazide(AVALIDE 150 MG-12.5 MG TAB) Take 1 tablet daily 0 12/13/2009 Active Comment on above: Take 1 tablet daily hydrOXYzine hydrochloride 25 mg oral tablet (16 sources) Antihistamine Start: 05-12-2023 End: 11-16-2023 take 25 mg by mouth once daily at bedtime Hydroxyzine Hcl Discontinued 25 MG PO Daily at bedtime October 20, 2023 12:00am November 16, 2023 2:04pm Irbesartan-Hydrochloro thiazide (5 sources) Start: 11-02-2017 End: 01-14-2023 take 1 tablet by mouth once daily Irbesartan-Hydrochloro thiazide Discontinued 1 TAB PO Daily November 02, [...] Comment on above: Take one(1) capsule daily. regadenoson (Lexiscan) injection 0.4 mg (2 sources) Start: 11-10-2023 End: 11-10-2023 0.4 mg, intravenous, Once, On Thu11/10/23 at 0930, For 1 dose rosuvastatin calcium 10 mg oral tablet (1 source) HMG-CoA Reductase Inhibitor Start: 07-08-2007 rosuvastatin calcium(CRESTOR 10 MG TAB) sulfamethoxazole 800 mg / trimethoprim 160 mg oral tablet (1 source) Dihydrofolate Reductase Inhibitor Antibacterial, Sulfonamide Antimicrobial Start: 04-22-2022 Sulfamethoxazole-Trime thoprim 800-160 MG Oral Tablet Quantity: 10 Refills: 0 Ordered: 22-Apr-2022 DO Start : 22-Apr-2022 Complete Tc-99m tetrofosmin (Myoview) injection 10 millicurie (2 sources) Start: 11-10-2023 End: 11-10-2023 10 millicurie, intravenous, Once in imaging, Starting on Thu11/10/23 at 0806, For 1 dose, Administer 45 to 90 minutes prior to imaging unless otherwise indicated. Tc-99m tetrofosmin (Myoview) injection 30 millicurie (2 sources) Start: 11-10-2023 End: 11-10-2023 30 millicurie, intravenous, Once in imaging, Starting on Thu11/10/23 at 0914, For 1 dose, Administer 45 to 90 minutes prior to imaging unless otherwise indicated. terconazole 4 mg/ml vaginal cream (1 source) [...] other specified organisms] Episodic Acute myocardial infarction (8 sources) Myocardial infarction; 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: [ST elevation (STEMI) [...] and giddiness] Episodic Congestive heart failure; nonhypertensive (18 sources) Congestive heart failure stage C; 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: [Congestive heart failure, unspecified] Onset: 3 06-15-2023 Chronic Coronary atherosclerosis and other heart disease (20 sources) Arteriosclerotic vascular disease; 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: [Cardiovascular disease, unspecified] Onset: 3 Chronic Deficiency and other anemia (3 sources) Anemia; 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: [Anemia, unspecified] 10-20-2023 Episodic Deficiency and other anemia (3 sources) Anemia, unspecified; 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: [Anemia, unspecified] 10-20-2023 Episodic Disorders of lipid metabolism (20 sources) Hyperlipidemia; 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: [Other and unspecified hyperlipidemia] Onset: 3 Chronic Esophageal disorders (20 sources) Gastro-esophageal reflux disease with esophagitis; 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: [Gastroesophageal reflux disease with esophagitis without hemorrhage] Chronic Essential hypertension (20 sources) Benign essential hypertension; 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: [Benign essential hypertension] Onset: 3 Chronic Essential hypertension (1 source) Essential hypertension Onset: 7 Genitourinary symptoms and ill-defined conditions (20 sources) Dysuria; 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: [Dysuria] Episodic Immunizations and screening for infectious disease (4 sources) Encounter for screening for human papillomavirus (HPV); 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: [Contact with and (suspected) exposure to other viral communicable diseases] Onset: 2 Episodic Malaise and fatigue (8 sources) Fatigue; 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: [Other malaise and fatigue] 10-20-2023 Episodic Nausea and vomiting (7 sources) Nausea; 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: [Nausea] 10-20-2023 Episodic Nonmalignant breast conditions (1 source) Mastodynia Episodic Nonspecific chest pain (14 sources) Chest pain, unspecified; 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: [Chest pain] Onset: 7 Resolved: 2 11-10-2023 Episodic Osteoarthritis (20 sources) Osteoarthritis of hip; 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: [Unilateral primary osteoarthritis, right hip] Onset: 0 06-04-2021 Chronic Osteoporosis (20 sources) Senile osteoporosis; 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: [Age-related osteoporosis without current pathological fracture] Onset: 2 Chronic Other acquired deformities (20 sources) Lumbar spondylolisthesis; 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: [Spondylolisthesis, lumbar region] Episodic Other acquired deformities (2 sources) Spondylolisthesis, lumbar region Episodic Other aftercare (3 sources) Long-term current use of drug therapy; 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: [Other exterminator helper (current) drug therapy] Episodic Other connective tissue [...] of falling] Episodic Other lower respiratory disease (9 sources) Dyspnea; 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: [Other respiratory abnormalities] 11-10-2023 Episodic Other lower respiratory disease (3 sources) Shortness of breath; 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: [Shortness of breath] [...] disorders (3 sources) Overweight; 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: [Overweight] Episodic Other screening for suspected conditions (not mental disorders or infectious disease) (10 sources) Encounter for screening mammogram for malignant neoplasm of breast; 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: [Encounter for screening for malignant neoplasm of cervix] Onset: 2 Episodic Peripheral and visceral atherosclerosis (20 sources) [...] Unclassified (1 source) 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) [...] Other Problems Problem Classification Problem Date Documented Da te Episodic/Chronic Chronic kidney disease (5 sources) Chronic kidney disease Coronary atherosclerosis and other heart disease (5 sources) Presence of coronary angioplasty implant and graft; 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: [Percutaneous transluminal coronary angioplasty status] Onset: 01-14-2023 01-14-2023 Episodic Esophageal disorders (2 sources) Esophageal disorders Heart valve disorders (15 sources) Systolic murmur; 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: [Undiagnosed cardiac murmurs] Onset: 05-19-2023 05-19-2023 Episodic Occlusion or stenosis of precerebral arteries (6 sources) Occlusion and stenosis of multiple and bilateral cerebral arteries; 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: [Occlusion and stenosis of bilateral carotid arteries] Resolved: 05-16-2021 Chronic Other connective tissue disease (2 sources) Ischial bursitis ; 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: [Other bursitis of hip, unspecified hip] Onset: 07-07-2019 05-08-2020 Episodic Other non-traumatic joint disorders (3 sources) Hip pain; 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: [Pain in unspecified hip] Onset: 12-18-2009 12-18-2009 Episodic Other nutritional; endocrine; and metabolic disorders (12 sources) Abnormal weight loss; 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: [Abnormal weight loss] Resolved: 05-05-2022 Episodic Residual codes; unclassified (1 source) Asymptomatic menopausal state; 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: [ASYMPTOMATIC MENOPAUSAL STATE] Onset: 05-25-2022 Episodic Residual codes; unclassified (3 sources) Postmenopausal state; 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: [Asymptomatic menopausal state] Onset: 2022 Episodic Unclassified (4 sources) Never smoked tobacco; 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: [Never a smoker] Unclassified (1 source) Polyuria R35.89 Unclassified (11 sources) Onset: 06-15-2023 06-15-2023 Unclassified (1 source) Acute right-sided low back pain without sciatica M54.50 Results Test Name Value Interpretation Reference Range Facility ECG 12 lead ECGon 11-19-2023 ECG 12 lead ECG [facility] [place] [address] [place] [address] Electrocardiograph Report Signed Patient: Atiya Jha MR#: [id number] : 1940 Acct:[id number] Age/Sex: 83 / F ADM Date: 11/18/23 Loc: Room: [address] [place] [address] Type: REG SDC Attending Dr: Allan Townsend DO Ordering Provider: Allan Townsend DO Date of Service: 11/19/23 ECG/ECG 12 lead ECG: Post Angioplasty Procedure in AM Copies to: Test Reason : Blood Pressure : / mmHG Vent. Rate : 064 BPM Atrial Rate : 064 BPM P-R Int : 186 ms QRS Dur : 088 ms QT Int : 450 ms P-R-T Axes : 075 043 075 degrees QTc Int : 464 ms Normal sinus rhythm Normal ECG When compared with ECG of 16-NOV-2023 13:58, No significant change was found Confirmed by Noah Foster ([id number]) on 11/19/2023 3:47:28 PM Referred By: Electronically Signed By:Noah Foster Transcribed By: MUS Signed By Noah Foster MD 11/19/23 1547 Normal [facility] Troponin I High Sensitivityo n 11-19-2023 Troponin I High Sensitivity 88.9 pg/mL Off scale high 0.0-15.0 [facility] Comment on above: Result Comment: Crit ical Result : Called to and read back by: NGUYEN BERMUDEZ at: 11/19/2023 07:10:35 by:MLG PERFORMED BY: [place] [address] PATHOLOGIST CANDY VENDOR JAYDE CARDOZA M.D. Performed By: #### H S TROP #### [place] [address] [place] Troponin I.cardiac [Mass/vol ume] in Serum or Plasma by Detection limit <= 0.01 ng/Ordered By: Allan Townsend on 11-19-2023 Troponin I.cardiac DL <= 0.01 ng/mL [Mass/Vol] 88.9 pg/mL 0.0-15.0 [facility] Comment on above: Critical Result : Ca lled to and read back by: NGUYEN BERMUDEZ at: 11/19/2023 07:10:35 by:MLG ECG 12 lead ECGon 11-18-2023 ECG 12 lead ECG [facility] [place] [address] Electrocardiograph Report Signed Patient: Atiya Jha MR#: [id number] : 1940 Acct:[id number] Age/Sex: 83 / F ADM Date: 11/18/23 Loc: Room: [address] [place] [address] Type: [facility] Attending Dr: Allan Townsend DO Ordering Provider: Allan Townsend DO Date of Service: 11/18/23 ECG/ECG 12 lead ECG: Post Angioplasty Procedure Copies to: Test Reason : Blood Pressure : / mmHG Vent. Rate : 067 BPM Atrial Rate : 067 BPM P-R Int : 218 ms QRS Dur : 082 ms QT Int : 430 ms P-R-T Axes : 082 050 070 degrees QTc Int : 454 ms Sinus rhythm with 1st degree AV block Otherwise normal ECG No previous ECGs available Confirmed by Noah Foster ([id number]) on 11/19/2023 3:47:26 PM Referred By: NO POST PTCA Electronically Signed By:Noah Foster Transcribed By: MUS Signed By Noah Foster MD 11/19/23 1547 Normal [facility] Activated partial thrombopla stin time (aPTT) in platelet poor plasma by coagulation aOrdered By: Allan Townsend on 11-16-2023 aPTT Coag (PPP) [Time] 31.6 s 25.1-36.5 [facility] Comment on above: A hematocrit value g reater than 55% may lead to inaccurate results in coagulation testing. Patients having hematocrit values >55% require a special collection tube for coagulation studies. Please contact the laboratory at [phone] for redraw instructions. Basophils Auto (Bld) [#/Vol] Ordered By: Allan Townsend on 11-16-2023 Basophils (Bld) [#/Vol] 0.0 10*3/uL 0.0-0.2 [facility] Basophils/100 WBC Auto (Bld) Ordered By: Allan Townsend on 11-16-2023 Basophils/100 WBC (Bld) 0.6 % . [facility] Blood Urea Nitrogenon 2023 Urea nitrogen [Mass/Vol] 19 mg/dL Normal 7-25 [facility] Comment on above: Performed By: #### L YTES, CBC, CREAT, BUN, PP, LIPID #### [address] Carbon dioxide, total [Moles /volume] in Serum or PlasmaOrdered By: Allan Townsedn on 11-16-2023 CO2 [Moles/Vol] 27.8 mmol/L 21.0-31.0 [facility] Chloride [Moles/volume] in S katiana or PlasmaOrdered By: Allan Townsend on 11-16-2023 Chloride [Moles/Vol] 103 mmol/L 98-107 [facility] Cholesterol [Mass/volume] in Serum or PlasmaOrdered By: Allan Townsend on 11-16-2023 Cholesterol [Mass/Vol] 143 mg/dL 140-200 [facility] Comment on above: Chol less than 200 m g/dl low riskChol 201-239 mg/dl borderline riskChol 240 mg/dl and greater high risk Cholesterol in LDL Calc [Mas s/Vol]Ordered By: Allan Townsend on 11-16-2023 Cholesterol in LDL [Mass/Vol] 74 mg/dL 0-100 [facility] Comment on above: LDL ATP III CLASSIFI CATIONLDL less than 100 mg/dL OptimalLDL 100-129 mg/dL Near or above optimalLDL 130-159 mg/dL Borderline highLDL 160-189 mg/dL HighLDL greater than 189 mg/dL Very high Cholesterol in VLDL Calc [Ma ss/Vol]Ordered By: Allan Townsend on 11-16-2023 Cholesterol in VLDL [Mass/Vol] 32 mg/dL [facility] Coagulation Profileon 2023 aPTT Coag (Bld) [Time] 31.6 s Normal 25.1-36.5 [facility] Comment on above: Result Comment: A he matocrit value greater than 55% may lead to inaccurate results in coagulation testing. Patients having hematocrit values >55% require a special collection tube for coagulation studies. Please contact the laboratory at [phone] for redraw instructions. PERFORMED BY: [place] [address] PATHOLOGIST CANDY VENDOR JAYDE CARDOZA M.D. Performed By: #### L YTES, CBC, CREAT, BUN, PP, LIPID #### [address] INR Coag (PPP) [Relative time] 1.0 {INR} Normal [facility] Comment on above: Result Comment: INR Therapeutic [...] valves: 3 - 4.5 Performed By: #### L YTES, CBC, CREAT, BUN, PP, LIPID #### [place] [id number] [facility] PT Coag (PPP) [Time] 11.1 s Normal 9.0-12.9 [facility] Comment on above: Result Comment: A he matocrit value greater than 55% may lead to inaccurate results in coagulation testing. Patients having hematocrit values >55% require a special collection tube for coagulation studies. Please contact the laboratory at [phone] for redraw instructions. Performed By: #### L YTES, CBC, CREAT, BUN, PP, LIPID #### [place] [id number] [facility] Complete Blood Count Auto Di ffon 11-16-2023 Basophils (Bld) [#/Vol] 0.0 10*3/uL Normal 0.0-0.2 [facility] Comment on above: Result Comment: PERF ORMED BY: [place] [address] PATHOLOGIST CANDY VENDOR JAYDE CARDOZA M.D. Performed By: #### L YTES, CBC, CREAT, BUN, PP, LIPID #### [address] Basophils/100 WBC (Bld) 0.6 % Normal . [facility] Comment on above: Performed By: #### L YTES, CBC, CREAT, BUN, PP, LIPID #### [address] Eosinophils (Bld) [#/Vol] 0.2 10*3/uL Normal 0.0-0.45 [facility] Comment on above: Performed By: #### L YTES, CBC, CREAT, BUN, PP, LIPID #### [address] Eosinophils/100 WBC (Bld) 3.4 % Normal . [facility] Comment on above: Performed By: #### L YTES, CBC, CREAT, BUN, PP, LIPID #### [address] Erythrocyte distribution width (RBC) [Ratio] 14.5 % Normal 11.9-15.3 [facility] Comment on above: Performed By: #### L YTES, CBC, CREAT, BUN, PP, LIPID #### [address] Hematocrit (Bld) [Volume fraction] 35.0 % Normal 34.0-46.4 [facility] Comment on above: Performed By: #### L YTES, CBC, CREAT, BUN, PP, LIPID #### [address] Hemoglobin (Bld) [Mass/Vol] 12.0 g/dL Normal 11.8-15.4 [facility] Comment on above: Performed By: #### L YTES, CBC, CREAT, BUN, PP, LIPID #### [address] Lymphocytes (Bld) [#/Vol] 1.5 10*3/uL Normal 1.00-4.8 [facility] Comment on above: Performed By: #### L YTES, CBC, CREAT, BUN, PP, LIPID #### [address] Lymphocytes/100 WBC (Bld) 28.5 % Normal . [facility] Comment on above: Performed By: #### L YTES, CBC, CREAT, BUN, PP, LIPID #### [address] MCH (RBC) [Entitic mass] 31.6 pg Normal 24.7-34.3 [facility] Comment on above: Performed By: #### L YTES, CBC, CREAT, BUN, PP, LIPID #### [address] MCV (RBC) [Entitic vol] 92.4 fL Normal 80-100 [facility] Comment on above: Performed By: #### L YTES, CBC, CREAT, BUN, PP, LIPID #### [address] Mean Corpuscular HGB Conc 34.2 g/dL Normal 32.0-35.0 [facility] Comment on above: Performed By: #### L YTES, CBC, CREAT, BUN, PP, LIPID #### [address] Monocytes (Bld) [#/Vol] 0.5 10*3/uL Normal 0.0-0.8 [facility] Comment on above: Performed By: #### L YTES, CBC, CREAT, BUN, PP, LIPID #### [address] Monocytes/100 WBC (Bld) 9.6 % Normal . [facility] Comment on above: Performed By: #### L YTES, CBC, CREAT, BUN, PP, LIPID #### [address] [place] [address] [place] Neutrophils (Bld) [#/Vol] 3.1 10*3/uL Normal 1.8-7.7 [facility] Comment on above: Performed By: #### L YTES, CBC, CREAT, BUN, PP, LIPID #### [address] Neutrophils/100 WBC (Bld) 57.9 % Normal . [facility] Comment on above: Performed By: #### L YTES, CBC, CREAT, BUN, PP, LIPID #### [address] NRBC% 0.0 /100{WBC} Normal 0-0.5 [facility] Comment on above: Performed By: #### L YTES, CBC, CREAT, BUN, PP, LIPID #### [address] Platelet mean volume (Bld) [Entitic vol] 7.7 fL Normal 6.3-10.7 The [facility] Comment on above: Performed By: #### L YTES, CBC, CREAT, BUN, PP, LIPID #### [place] [address] [place] Platelets (Bld) [#/Vol] 194 10*3/uL Normal 150-450 [facility] Comment on above: Performed By: #### L YTES, CBC, CREAT, BUN, PP, LIPID #### [place] [address] [place] RBC (Bld) [#/Vol] 3.78 10*6/uL Normal 3.60-5.00 The [facility] Comment on above: Performed By: #### L YTES, CBC, CREAT, BUN, PP, LIPID #### [address] WBC (Bld) [#/Vol] 5.4 10*3/uL Normal 3.8-11.6 The [facility] Comment on above: Performed By: #### L YTES, CBC, CREAT, BUN, PP, LIPID #### [facility] [address] [place] [address] [place] Creatinineon 11-16-2023 Creatinine [Mass/Vol] 0.88 mg/dL Normal 0.60-1.20 [facility] Comment on above: Performed By: #### L YTES, CBC, CREAT, BUN, PP, LIPID #### [facility] [address] [place] [address] [place] GFR/1.73 sq M.predicted MDRD (S/P/Bld) [Vol rate/Area] mL/min/{1.73_m2} Normal [facility] Comment on above: Performed By: #### L YTES, CBC, CREAT, BUN, PP, LIPID #### [facility] [address] [place] [id number] [facility] Creatinine [Mass/volume] in Serum or PlasmaOrdered By: Allan Townsend on 11-16-2023 Creatinine [Mass/Vol] 0.88 mg/dL 0.60-1.20 [facility] ECG 12 lead ECGon 11-16-2023 ECG 12 lead ECG [facility] [address] [place] [address] Electrocardiograph Report Signed Patient: Atiya Jha MR#: [id number] : 1940 Acct:[id number] Age/Sex: 83 / F ADM Date: 11/16/23 Loc: Room: Type: [facility] Attending Dr: Allan Townsend DO Ordering Provider: Allan Townsend DO Date of Service: 11/16/23 ECG/ECG 12 lead ECG: [facility] Copies to: Test Reason : Blood Pressure : / mmHG Vent. Rate : 059 BPM Atrial Rate : 059 BPM P-R Int : 182 ms QRS Dur : 084 ms QT Int : 448 ms P-R-T Axes : 063 019 058 degrees QTc Int : 443 ms Sinus bradycardia Otherwise normal ECG When compared with ECG of 16-JAN-2023 07:37, T wave inversion no longer evident in Inferior leads T wave inversion no longer evident in Anterolateral leads QT has shortened Confirmed by Noah Foster ([id number]) on 11/16/2023 2:32:21 PM Referred By: CARA Electronically Signed By:Noah Foster Transcribed By: YAW Signed By Noah Foster MD 11/16/23 1432 Normal [facility] Electrolyteson 11-16-2023 Anion gap [Moles/Vol] 10.0 mmol/L Normal 6.0-15.0 [facility] Comment on above: Performed By: #### L YTES, CBC, CREAT, BUN, PP, LIPID #### [address] Chloride [Moles/Vol] 103 mmol/L Normal 98-107 [facility] Comment on above: Performed By: #### L YTES, CBC, CREAT, BUN, PP, LIPID #### [address] CO2 [Moles/Vol] 27.8 mmol/L Normal 21.0-31.0 The [facility] Comment on above: Performed By: #### L YTES, CBC, CREAT, BUN, PP, LIPID #### [facility] [address] [place] [address] [place] Potassium [Moles/Vol] 3.8 mmol/L Normal 3.5-5.1 [facility] Comment on above: Performed By: #### L YTES, CBC, CREAT, BUN, PP, LIPID #### [place] [address] [place] Sodium [Moles/Vol] 137 mmol/L Normal 136-145 The [facility] Comment on above: Performed By: #### L YTES, CBC, CREAT, BUN, PP, LIPID #### [facility] [address] [place] [address] [place] Eosinophils Auto (Bld) [#/Vo l]Ordered By: Allan Townsend on 11-16-2023 Eosinophils (Bld) [#/Vol] 0.2 10*3/uL 0.0-0.45 [facility] Eosinophils/100 WBC Auto (Bl d)Ordered By: Allan Townsend on 11-16-2023 Eosinophils/100 WBC (Bld) 3.4 % . [facility] Erythrocyte distribution wid th Auto (RBC) [Ratio]Ordered By: Allan Townsend on 11-16-2023 Erythrocyte distribution width (RBC) [Ratio] 14.5 % 11.9-15.3 [facility] Hematocrit Auto (Bld) [Volum e fraction]Ordered By: Allan Townsend on 11-16-2023 Hematocrit (Bld) [Volume fraction] 35.0 % 34.0-46.4 [facility] Hemoglobin [Mass/volume] in BloodOrdered By: Allan Townsend on 11-16-2023 Hemoglobin (Bld) [Mass/Vol] 12.0 g/dL 11.8-15.4 [facility] INR in Platelet poor plasma by Coagulation assayOrdered By: Allan Townsend on 11-16-2023 INR Coag (PPP) [Relative time] 1.0 {INR} [facility] Comment on above: INR Therapeutic Rang e A) Pre- and Peroperative OAT started two weeks before surgery. NOT HIP SURGERY: 1.5 - 2.5 HIP SURGERY: 2 - 3B) Primary and secondary prevention of venous THROMBOSIS: 2 - 3C) Active venous thrombosis, pulmonary embolismand prevention of recurrent venous thrombosis: 2 - 3D) Prevention of arterial thromboembolismincluding patients with mechanical heart valves: 3 - 4.5 Leukocytes [#/volume] correc law for nucleated erythrocytes in Blood by Automated counOrdered By: Allan Townsend on 11-16-2023 WBC corrected for nucl RBC Auto (Bld) [#/Vol] 5.4 10*3/uL 3.8-11.6 [facility] Lipid Panelon 11-16-2023 Cholesterol [Mass/Vol] 143 mg/dL Normal 140-200 [facility] Comment on above: Result Comment: Chol less than 200 mg/dl low risk Chol 201-239 mg/dl borderline risk Chol 240 mg/dl and greater high risk Performed By: #### L YTES, CBC, CREAT, BUN, PP, LIPID #### [facility] [address] [place] [address] Cholesterol in HDL [Mass/Vol] 36 mg/dL Normal 23-92 [facility] Comment on above: Result Comment: HDL CHOL ATP-III CLASSIFICATION Cardiovascular Risk HDL > or equal to 60 mg/dL LOW HDL < 40 mg/dL HIGH Performed By: #### L YTES, CBC, CREAT, BUN, PP, LIPID #### [address] Cholesterol.total/Chol esterol in HDL [Mass ratio] 4.0 {ratio} Normal <5.0 [facility] Comment on above: Result Comment: PERF ORMED BY: [place] [address] PATHOLOGIST CANDY VENDOR JAYDE CARDOZA M.D. Performed By: #### L YTES, CBC, CREAT, BUN, PP, LIPID #### [address] LDL Cholesterol,Calculated 74 mg/dL Normal 0-100 [facility] Comment on above: Result Comment: LDL ATP III CLASSIFICATION LDL less than 100 mg/dL Optimal LDL 100-129 mg/dL Near or above optimal LDL 130-159 mg/dL Borderline high LDL 160-189 mg/dL High LDL greater than 189 mg/dL Very high Performed By: #### L YTES, CBC, CREAT, BUN, PP, LIPID #### [address] Triglyceride w/Reflex 163 mg/dL High 0-149 [facility] Comment on above: Result Comment: TRIG ATP III CLASSIFICATION TRIG less than 150 mg/dL Normal TRIG 150-199 mg/dL Borderline high TRIG 200-500 mg/dL High TRIG greater than 500 mg/dL Very high Standard traceable to the Center for Disease Conrtrol and Prevention (CDC) test method. Performed By: #### L YTES, CBC, CREAT, BUN, PP, LIPID #### [facility] [address] VLDL CHOLESTEROL 32 mg/dL Normal The [facility] Comment on above: Performed By: #### L YTES, CBC, CREAT, BUN, PP, LIPID #### [facility] [address] Lymphocytes Auto (Bld) [#/Vo l]Ordered By: Allan Townsend on 11-16-2023 Lymphocytes (Bld) [#/Vol] 1.5 10*3/uL 1.00-4.8 [facility] Lymphocytes/100 WBC Auto (Bl d)Ordered By: Allan Townsend on 11-16-2023 Lymphocytes/100 WBC (Bld) 28.5 % . [facility] MCH Auto (RBC) [Entitic mass ]Ordered By: Allan Townsend on 11-16-2023 MCH (RBC) [Entitic mass] 31.6 pg 24.7-34.3 [facility] MCHC Auto (RBC) [Mass/Vol]Or dered By: Allan Townsend on 11-16-2023 MCHC (RBC) [Mass/Vol] 34.2 g/dL 32.0-35.0 [facility] MCV Auto (RBC) [Entitic vol] Ordered By: Allan Townsend on 11-16-2023 MCV (RBC) [Entitic vol] 92.4 fL 80-100 [facility] Monocytes Auto (Bld) [#/Vol] Ordered By: Allan Townsend on 11-16-2023 Monocytes (Bld) [#/Vol] 0.5 10*3/uL 0.0-0.8 [facility] Monocytes/100 WBC Auto (Bld) Ordered By: Allan Townsend on 11-16-2023 Monocytes/100 WBC (Bld) 9.6 % . [facility] Neutrophils Auto (Bld) [#/Vo l]Ordered By: Allan Townsend on 11-16-2023 Neutrophils (Bld) [#/Vol] 3.1 10*3/uL 1.8-7.7 [facility] Neutrophils/100 WBC Auto (Bl d)Ordered By: Allan Townsend on 11-16-2023 Neutrophils/100 WBC (Bld) 57.9 % . [facility] No Panel InformationOrdered By: Allan Townsend on 11-16-2023 Estimated GFR (CKD-EPI) > 60.0 mL/Min [facility] Creatinine Clearance (Chem N/A [facility] Nucleated erythrocytes [Pres ence] in Blood by Automated countOrdered By: Allan Townsend on 11-16-2023 Nucleated RBC Auto Ql (Bld) 0.0 /100{WBC} 0-0.5 [facility] Platelet mean volume Auto (B ld) [Entitic vol]Ordered By: Allan Townsend on 11-16-2023 Platelet mean volume (Bld) [Entitic vol] 7.7 fL 6.3-10.7 [facility] Platelets Auto (Bld) [#/Vol] Ordered By: Allan Townsend on 11-16-2023 Platelets (Bld) [#/Vol] 194 10*3/uL 150-450 [facility] Potassium [Moles/volume] in Serum or PlasmaOrdered By: Allan Townsend on 11-16-2023 Potassium [Moles/Vol] 3.8 mmol/L 3.5-5.1 [facility] Prothrombin time (PT)Ordered By: Allan Townsend on 11-16-2023 PT Coag (PPP) [Time] 11.1 s 9.0-12.9 [facility] Comment on above: A hematocrit value g reater than 55% may lead to inaccurate results in coagulation testing. Patients having hematocrit values >55% require a special collection tube for coagulation studies. Please contact the laboratory at [phone] for redraw instructions. RBC Auto (Bld) [#/Vol]Ordere d By: Allan Townsend on 11-16-2023 RBC (Bld) [#/Vol] 3.78 10*6/uL 3.60-5.00 [facility] Serum or plasma anion gap de terminationOrdered By: Allan Townsend on 11-16-2023 Anion gap [Moles/Vol] 10.0 mmol/L 6.0-15.0 [facility] Serum or plasma high density lipoprotein (HDL) cholesterol measurementOrdered By: Allan Townsend on 11-16-2023 Cholesterol in HDL [Mass/Vol] 36 mg/dL 23-92 [facility] Comment on above: HDL CHOL ATP-III CLA SSIFICATION Cardiovascular RiskHDL > or equal to 60 mg/dL LOWHDL < 40 mg/dL HIGH Serum or plasma total choles terol/high density lipoprotein (HDL) cholesterol mass ratOrdered By: Allan Townsend on 11-16-2023 Cholesterol.total/Chol esterol in HDL [Mass ratio] 4.0 {ratio} <5.0 [facility] Sodium [Moles/volume] in Ser um or PlasmaOrdered By: Allan Townsend on 11-16-2023 Sodium [Moles/Vol] 137 mmol/L 136-145 [facility] Triglyceride [Mass/volume] i n Serum or PlasmaOrdered By: Allan Townsend on 11-16-2023 Triglyceride [Mass/Vol] 163 mg/dL 0-149 [facility] Comment on above: TRIG ATP III CLASSIF ICATIONTRIG less than 150 mg/dL NormalTRIG 150-199 mg/dL Borderline highTRIG 200-500 mg/dL High TRIG greater than 500 mg/dL Very highStandard traceable to the Center for Disease Conrtrol and Prevention (CDC) test method. Urea nitrogen [Mass/volume] in Serum or PlasmaOrdered By: Allan Townsend on 11-16-2023 Urea nitrogen [Mass/Vol] 19 mg/dL 7-25 [facility] WBC Auto (Bld) [#/Vol]Ordere d By: Allan Townsend on 11-16-2023 WBC (Bld) [#/Vol] 5.4 10*3/uL 3.8-11.6 [facility] NM Heart Perfusion W stress and W radionuclide Bahman 11-10-2023 Abnormal Lexiscan My oview cardiac perfusion stress test. Moderate anteroseptal myocardial ischemia by perfusion imaging. Small to moderate distal anteroseptal and apical myocardial infarction by perfusion imaging. Abnormal left ventricular systolic function. Left ventricular ejection fraction 62 %. With severe hypokinesis of distal anteroseptal wall and apex When compared to previous study the finding in the LAD territory is new. Signed by: Xiomara Ndiaye 11/10/2023 12:04 PM Dictation workstation: [id number] Interpreted By: Xiomara Ndiaye, and Livier Cartwright STUDY: MYOCARDIAL PERFUSION STRESS TEST WITH LEXISCAN Performing facility: [facility], [address] [place] [address], [address], [place] [address] [facility] Provider: Geoffrey Santillan MD, FACC PCP: Dr. Nathalie Barreto Supervising provider: Chelsie Cedeno MD, FACC INDICATION: CAD; SOB; Chest tightness HISTORY: Gender: F; Age: 83 y/o ; Height: HT 165.1 cm cm; Weight: WT 70.761 kg kg. CAD; High Cholesterol; Previous AK; HTN; Chest Pain; SOB; Denies smoking. Cardiac catheterization on 2022. PTCA on 2022. COMPARISON: Previous nuclear testing completed at [facility]. ACCESSION NUMBER(S): [id number] ORDERING CLINICIAN: DARRYL SANTILLAN TECHNIQUE: ONE DAY protocol. Stress injection: Date:11-10-23, 34.2 mCi of Myoview IV 20 seconds after rapid injection of Lexiscan. Rest injection: Date: 11-10-23, 10.0 mCi of Myoview IV at rest. The patient had a rapid injection of 0.4 mg of Lexiscan IV over 10 seconds. Imaging was performed by gated tomographic technique. Reason for Lexiscan: dizziness/unsteady/fall risk STRESS TEST DATA: Resting heart rate was 61 BPM. Resting blood pressure was 128/78 mmHg. Peak blood pressure was 104/78 mmHg. Peak heart rate was 89 BPM. TEST TERMINATED DUE TO: Protocol completed FINDINGS: STRESS TEST RESULTS: Resting electrocardiogram revealed normal sinus rhythm. There were no significant ischemic ECG changes or dysrhythmias. The patient did not have chest pains/symptoms during procedure. There was a normal recovery phase. IMAGING RESULTS: Image quality was good. Rest and stress tomographic images were reviewed and revealed abnormal perfusion. There was evidence of perfusion abnormality with moderate area of severe which is reversible on rest images consistent with anteroseptal myocardial ischemia. There was evidence of perfusion abnormality with small to moderate area of severe which is fixed on both rest and stress images consistent with distal anteroseptal and apical infarction. The projection fraction calculated at 62% There was not left ventricular dilatation with stress. Overall left ventricular systolic function appeared to be abnormal. There were regional wall motion abnormalities with severe hypokinesis of the distal anteroseptal wall and apex TID is 1.17 and is normal. There were no evidence of attenuation artifact. MMODAL Xiomara Ndiaye MD - 11/10/2023 Interpreted By: Xiomara Ndiaye and Giannuzzi Michael STUDY: MYOCARDIAL PERFUSION STRESS TEST WITH LEXISCAN Performing facility: [facility], [address], [address], [place] [address] [facility] Provider: Geoffrey Santillan MD, [facility] PCP: Dr. Nathalie Barreto Supervising provider: Chelsie Cedeno MD, [facility] INDICATION: CAD; SOB; Chest tightness HISTORY: Gender: F; Age: 83 y/o ; Height: HT 165.1 cm cm; Weight: WT 70.761 kg kg. CAD; High Cholesterol; Previous AK; HTN; Chest Pain; SOB; Denies smoking. Cardiac catheterization on 2022. PTCA on 2022. COMPARISON: Previous nuclear testing completed [id number] at [facility]. ACCESSION NUMBER(S): [id number] ORDERING CLINICIAN: DARRYL SANTILLAN TECHNIQUE: ONE DAY protocol. Stress injection: Date:11-10-23, 34.2 mCi of Myoview IV 20 seconds after rapid injection of Lexiscan. Rest injection: Date: 11-10-23, 10.0 mCi of Myoview IV at rest. The patient had a rapid injection of 0.4 mg of Lexiscan IV over 10 seconds. Imaging was performed by gated tomographic technique. Reason for Lexiscan: dizziness/unsteady/fall risk STRESS TEST DATA: Resting heart rate was 61 BPM. Resting blood pressure was 128/78 mmHg. Peak blood pressure was 104/78 mmHg. Peak heart rate was 89 BPM. TEST TERMINATED DUE TO: Protocol completed FINDINGS: STRESS TEST RESULTS: Resting electrocardiogram revealed normal sinus rhythm. There were no significant ischemic ECG changes or dysrhythmias. The patient did not have chest pains/symptoms during procedure. There was a normal recovery phase. IMAGING RESULTS: Image quality was good. Rest and stress tomographic images were reviewed and revealed abnormal perfusion. There was evidence of perfusion abnormality with moderate area of severe which is reversible on rest images consistent with anteroseptal myocardial ischemia. There was evidence of perfusion abnormality with small to moderate area of severe which is fixed on both rest and stress images consistent with distal anteroseptal and apical infarction. The projection fraction calculated at 62% There was not left ventricular dilatation with stress. Overall left ventricular systolic function appeared to be abnormal. There were regional wall motion abnormalities with severe hypokinesis of the distal anteroseptal wall and apex TID is 1.17 and is normal. There were no evidence of attenuation artifact. IMPRESSION: Abnormal Lexiscan Myoview cardiac perfusion stress test. Moderate anteroseptal myocardial ischemia by perfusion imaging. Small to moderate distal anteroseptal and apical myocardial infarction by perfusion imaging. Abnormal left ventricular systolic function. Left ventricular ejection fraction 62 %. With severe hypokinesis of distal anteroseptal wall and apex When compared to previous study the finding in the LAD territory is new. Signed by: Xiomara Ndiaye 11/10/2023 12:04 PM Dictation workstation: [id number] [facility] Work Phone: Radiology Study observation (narrative) [facility] Work Phone: NM Heart Perfusion W stress and W radionuclide IVOrdered By: Xiomara Ndiaye on 11-10-2023 [facility] Work Phone: NUCLEAR STRESS TESTon 2023 NUCLEAR STRESS TEST Interpreted By: Xiomara Ndiaye and Livier Cartwright STUDY: MYOCARDIAL PERFUSION STRESS TEST WITH LEXISCAN Performing facility: [facility], [address] [place] [address], [address], [address] Provider: Geoffrey Santillan MD, FACC PCP: Dr. Nathalie Barreto Supervising provider: Chelsie Cedeno MD, FACC INDICATION: CAD; SOB; Chest tightness HISTORY: Gender: F; Age: 83 y/o ; Height: HT 165.1 cm cm; Weight: WT 70.761 kg kg. CAD; High Cholesterol; Previous AK; HTN; Chest Pain; SOB; Denies smoking. Cardiac catheterization on 2022. PTCA on 2022. COMPARISON: Previous nuclear testing completed [id number] at [facility]. ACCESSION NUMBER(S): [id number] ORDERING CLINICIAN: DARRYL SANTILLAN TECHNIQUE: ONE DAY protocol. Stress injection: Date:11-10-23, 34.2 mCi of Myoview IV 20 seconds after rapid injection of Lexiscan. Rest injection: Date: 11-10-23, 10.0 mCi of Myoview IV at rest. The patient had a rapid injection of 0.4 mg of Lexiscan IV over 10 seconds. Imaging was performed by gated tomographic technique. Reason for Lexiscan: dizziness/unsteady/fall risk STRESS TEST DATA: Resting heart rate was 61 BPM. Resting blood pressure was 128/78 mmHg. Peak blood pressure was 104/78 mmHg. Peak heart rate was 89 BPM. TEST TERMINATED DUE TO: Protocol completed FINDINGS: STRESS TEST RESULTS: Resting electrocardiogram revealed normal sinus rhythm. There were no significant ischemic ECG changes or dysrhythmias. The patient did not have chest pains/symptoms during procedure. There was a normal recovery phase. IMAGING RESULTS: Image quality was good. Rest and stress tomographic images were reviewed and revealed abnormal perfusion. There was evidence of perfusion abnormality with moderate area of severe which is reversible on rest images consistent with anteroseptal myocardial ischemia. There was evidence of perfusion abnormality with small to moderate area of severe which is fixed on both rest and stress images consistent with distal anteroseptal and apical infarction. The projection fraction calculated at 62% There was not left ventricular dilatation with stress. Overall left ventricular systolic function appeared to be abnormal. There were regional wall motion abnormalities with severe hypokinesis of the distal anteroseptal wall and apex TID is 1.17 and is normal. There were no evidence of attenuation artifact. IMPRESSION: Abnormal Lexiscan Myoview cardiac perfusion stress test. Moderate anteroseptal myocardial ischemia by perfusion imaging. Small to moderate distal anteroseptal and apical myocardial infarction by perfusion imaging. Abnormal left ventricular systolic function. Left ventricular ejection fraction 62 %. With severe hypokinesis of distal anteroseptal wall and apex When compared to previous study the finding in the LAD territory is new. Signed by: Xiomara Ndiaye 11/10/2023 12:04 PM Dictation workstation: [id number] [facility] Basophils Auto (Bld) [#/Vol] on 10-20-2023 Basophils (Bld) [#/Vol] 0.0 10 3/uL 0.0-0.1 [facility] Basophils/100 WBC Auto (Bld) on 10-20-2023 Basophils/100 WBC (Bld) 0.4 % 0.2-2.0 [facility] Eosinophils/100 WBC Auto (Bl d)on 10-20-2023 Eosinophils/100 WBC (Bld) 3.2 % 0.9-7.0 [facility] Erythrocyte distribution wid th Auto (RBC) [Ratio]on 10-20-2023 Erythrocyte distribution width (RBC) [Ratio] 13.2 % 11.0-15.0 [facility] Estimated glomerular filtrat ion rate (GFR) non- Americanon 10-20-2023 GFR/1.73 sq M.predicted among non-blacks MDRD (S/P/Bld) [Vol rate/Area] 47 mL/min/{1.73_m2} >=60 [facility] Globulin Calc (S) [Mass/Vol] on 10-20-2023 Globulin (S) [Mass/Vol] 3.2 g/dL [facility] Hematocrit Auto (Bld) [Volum e fraction]on 10-20-2023 Hematocrit (Bld) [Volume fraction] 37.9 % 36.0-48.0 [facility] Hemoglobin [Mass/volume] in Bloodon 10-20-2023 Hemoglobin (Bld) [Mass/Vol] 12.4 g/dL 12.0-16.0 [facility] [facility] Iron binding capacity [Mass/ volume] in Serum or Plasmaon 10-20-2023 Iron binding capacity [Mass/Vol] 318.0 ug/dL 250.0-450. 0 [facility] Iron saturation [Mass Fracti on] in Serum or Plasmaon 10-20-2023 Iron saturation [Mass fraction] 36.2 % [facility] Laboratory - Chemistry and C hemistry - challengeon 10-20-2023 Albumin [Mass/Vol] 4.1 g/dL 3.4-5.0 [facility] ALP [Catalytic activity/Vol] 71 U/L 46-116 [facility] ALT [Catalytic activity/Vol] 23 U/L 14-59 [facility] AST [Catalytic activity/Vol] 15 U/L 15-37 [facility] Bilirubin [Mass/Vol] 0.8 mg/dL 0.2-1.0 [facility] Calcium [Mass/Vol] 9.5 mg/dL 8.5-10.1 [facility] Chloride [Moles/Vol] 98 mmol/L 98-107 [facility] CO2 [Moles/Vol] 28.1 mmol/L 21.0-32.0 [facility] Cobalamin (Vitamin B12) [Mass/Vol] 1997.0 pg/mL 193.0-986. 0 [facility] Creatinine [Mass/Vol] 1.10 mg/dL 0.55-1.02 [facility] Ferritin [Mass/Vol] 136.0 ng/mL 8.0-252.0 [facility] GFR/1.73 sq M.predicted MDRD (S/P/Bld) [Vol rate/Area] 57 mL/min/{1.73_m2} >=60 [facility] Glucose [Mass/Vol] 95 mg/dL 74-106 [facility] Iron [Mass/Vol] 115.0 ug/dL 50.0-170.0 [facility] Potassium [Moles/Vol] 3.7 mmol/L 3.5-5.1 [facility] Protein [Mass/Vol] 7.3 g/dL 6.4-8.2 [facility] Sodium [Moles/Vol] 135 mmol/L 136-145 [facility] TSH Qn 0.894 m[IU]/L 0.358-3.74 0 [facility] Urea nitrogen [Mass/Vol] 28.0 mg/dL 7.0-18.0 [facility] Urea nitrogen/Creatinine [Mass ratio] 25.5 mg/mg [facility] - Hematology and Cell countson 10-20-2023 Immature granulocytes/100 WBC (Bld) 0.1 % 0.0-0.5 [facility] Leukocytes [#/volume] correc law for nucleated erythrocytes in Blood by Automated counon 10-20-2023 WBC corrected for nucl RBC Auto (Bld) [#/Vol] 6.8 10 3/uL 4.0-11.0 [facility] Lymphocytes Auto (Bld) [#/Vo l]on 10-20-2023 Lymphocytes (Bld) [#/Vol] 2.0 10 3/uL 1.2-3.8 [facility] Lymphocytes/100 WBC Auto (Bl d)on 10-20-2023 Lymphocytes/100 WBC (Bld) 29.4 % 20.5-60.0 [facility] MCH Auto (RBC) [Entitic mass ]on 10-20-2023 MCH (RBC) [Entitic mass] 30.7 pg 26.7-34.0 [facility] MCHC Auto (RBC) [Mass/Vol]on 10-20-2023 MCHC (RBC) [Mass/Vol] 32.7 g/dL 29.9-35.2 [facility] MCV Auto (RBC) [Entitic vol] on 10-20-2023 MCV (RBC) [Entitic vol] 93.8 fL 81.0-99.0 [facility] Monocytes Auto (Bld) [#/Vol] on 10-20-2023 Monocytes (Bld) [#/Vol] 0.7 10 3/uL 0.3-0.8 [facility] Monocytes/100 WBC Auto (Bld) on 10-20-2023 Monocytes/100 WBC (Bld) 9.7 % 1.7-12.0 [facility] Neutrophils Auto (Bld) [#/Vo l]on 10-20-2023 Neutrophils (Bld) [#/Vol] 3.9 10 3/uL 1.4-6.5 [facility] Neutrophils/100 WBC Auto (Bl d)on 10-20-2023 Neutrophils/100 WBC (Bld) 57.2 % 43.0-75.0 [facility] No Panel Informationon 10-19 Eosinophils # (Auto) 0.2 10 3/uL 0.0-0.7 [facility] Folate 16.00 ng/mL 8.60-58.90 [facility] Immature Granulocyte # (Auto) 0.01 10 3/uL 0.00-0.03 [facility] Platelet mean volume Auto (B ld) [Entitic vol]on 10-20-2023 Platelet mean volume (Bld) [Entitic vol] 9.5 fL 9.5-13.5 [facility] Platelets Auto (Bld) [#/Vol] on 10-20-2023 Platelets (Bld) [#/Vol] 212 10 3/uL 150-450 [facility] RBC Auto (Bld) [#/Vol]on RBC (Bld) [#/Vol] 4.04 10 6/uL 4.20-5.40 [facility] Serum or plasma albumin/glob ulin mass ratioon 10-20-2023 Albumin/Globulin [Mass ratio] 1.3 {ratio} [facility] Serum or plasma anion gap de terminationon 10-20-2023 Anion gap [Moles/Vol] 12.6 mmol/L [facility] MUGA SCAN INJECTIONon [facility] MUGA SCAN INJECTION Patient Name: ATIYA JHA STUDY: MUGA Performing facility: [facility], [address] [place] [address], [address], [place] [address] [facility] Provider: Geoffrey Townsend DO, [facility] PCP: Dr. Nathalie Barreto Supervising provider: Sulma Busby RN, TRANSITIONAL CARE NURSE INDICATION: ASCVD Chest Pain; CHF Dyspnea Fatigue Hx PTCA HISTORY: Gender: F; Age: 82 y/o ; Height: 165.1 cm; Weight: 69.9163157 kg. CAD; Chest Pain; SOB; CHF Fatigue; Denies smoking. Cardiac catheterization on 2022. PTCA on 2022. COMPARISON: Previous nuclear testing completed [id number] EF= 76% at [facility]. Previous echo testing completed [id number] EF=40-45% at [facility]. ACCESSION NUMBER(S): [id number]; [id number] ORDERING CLINICIAN: DARRYL TOWNSEND TECHNIQUE: The patient received an IV injection [...] ejection fraction is 58%. Electronically signed by: CHELSIE CEDENO MD Normal [facility] No Panel Informationon 03-11 Normal -[facility] 250 DO Work Phone: Tobacco Screening.on 023 Adult depression screening assessment Yes [facility] 250 DO Work Phone: Adult depression screening assessment No [facility] 250 DO Work Phone: Fall risk assessment a) No falls within the last year [facility] 250 DO Work Phone: Tobacco use status CP b) No [facility] 250 DO Work Phone: Basic Metabolic Panelon 01-01 Anion gap [Moles/Vol] 11.8 mmol/L Normal 6.0-15.0 [facility] Comment on above: Performed By: #### H S TROP #### [address] Calcium [Mass/Vol] 8.8 mg/dL Normal 8.6-10.3 [facility] Comment on above: Performed By: #### H S TROP #### [address] Chloride [Moles/Vol] 107 mmol/L Normal 98-107 [facility] Comment on above: Performed By: #### H S TROP #### [address] CO2 [Moles/Vol] 25.2 mmol/L Normal 21.0-31.0 [facility] Comment on above: Performed By: #### H S TROP #### [address] Creatinine [Mass/Vol] 0.88 mg/dL Normal 0.60-1.20 [facility] Comment on above: Performed By: #### H S TROP #### [place] [address] [place] Creatinine Clr Calc Pharmacy 48.86 Normal [facility] Comment on above: Result Comment: PERF ORMED BY: [place] [address] PATHOLOGIST CANDY VENDOR JIANLAN SUN M.D. Performed By: #### H S TROP #### [place] [address] [place] GFR/1.73 sq M.predicted MDRD (S/P/Bld) [Vol rate/Area] mL/min/{1.73_m2} Normal [facility] Comment on above: Performed By: #### H S TROP #### [address] Glucose [Mass/Vol] 100 mg/dL Normal 70-100 [facility] Comment on above: Result Comment: [facility] Glucose Reference Range is dependent on time and content of last meal. Glucose of more than 200 mg/dL in a nonstressed, ambulatory subject supports the diagnosis of Diabetes Mellitus. ADA recommended reference range Performed By: #### H S TROP #### [address] Potassium [Moles/Vol] 4.0 mmol/L Normal 3.5-5.1 [facility] Comment on above: Performed By: #### H S TROP #### [address] Sodium [Moles/Vol] 140 mmol/L Normal 136-145 [facility] Comment on above: Performed By: #### H S TROP #### [address] Urea nitrogen [Mass/Vol] 15 mg/dL Normal 7-25 [facility] Comment on above: Performed By: #### H S TROP #### [place] [address] [place] Basophils Auto (Bld) [#/Vol] Ordered By: Allan Townsend on 01-16-2023 Basophils (Bld) [#/Vol] 0.0 10*3/uL 0.0-0.2 [facility] Basophils/100 WBC Auto (Bld) Ordered By: Allan Townsend on 01-16-2023 Basophils/100 WBC (Bld) 0.6 % . [facility] Calcium [Mass/volume] in Ser um or PlasmaOrdered By: Allan Townsend on 01-16-2023 Calcium [Mass/Vol] 8.8 mg/dL 8.6-10.3 [facility] Carbon dioxide, total [Moles /volume] in Serum or PlasmaOrdered By: Allan Townsend on 01-16-2023 CO2 [Moles/Vol] 25.2 mmol/L 21.0-31.0 [facility] Chloride [Moles/volume] in S katiana or PlasmaOrdered By: Allan Townsend on 01-16-2023 Chloride [Moles/Vol] 107 mmol/L 98-107 [facility] Complete Blood Count Auto Di ffon 01-16-2023 Basophils (Bld) [#/Vol] 0.0 10*3/uL Normal 0.0-0.2 [facility] Comment on above: Result Comment: PERF ORMED BY: [place] [address] PATHOLOGIST CANDY VENDOR JAYDE CARDOZA M.D. Performed By: #### C BC, BMP #### [address] Basophils/100 WBC (Bld) 0.6 % Normal . [facility] Comment on above: Performed By: #### C BC, BMP #### [address] Eosinophils (Bld) [#/Vol] 0.3 10*3/uL Normal 0.0-0.45 [facility] Comment on above: Performed By: #### C BC, BMP #### [address] Eosinophils/100 WBC (Bld) 5.1 % Normal . [facility] Comment on above: Performed By: #### C BC, BMP #### [address] Erythrocyte distribution width (RBC) [Ratio] 13.8 % Normal 11.9-15.3 [facility] Comment on above: Performed By: #### C BC, BMP #### [address] Hematocrit (Bld) [Volume fraction] 32.9 % Low 34.0-46.4 [facility] Comment on above: Performed By: #### C BC, BMP #### [address] Hemoglobin (Bld) [Mass/Vol] 11.5 g/dL Low 11.8-15.4 [facility] Comment on above: Performed By: #### C BC, BMP #### [address] Lymphocytes (Bld) [#/Vol] 1.4 10*3/uL Normal 1.00-4.8 [facility] Comment on above: Performed By: #### C BC, BMP #### [address] Lymphocytes/100 WBC (Bld) 28.0 % Normal . [facility] Comment on above: Performed By: #### C BC, BMP #### [address] MCH (RBC) [Entitic mass] 32.1 pg Normal 24.7-34.3 [facility] Comment on above: Performed By: #### C BC, BMP #### [address] MCV (RBC) [Entitic vol] 92.2 fL Normal 80-100 [facility] Comment on above: Performed By: #### C BC, BMP #### [address] Mean Corpuscular HGB Conc 34.8 g/dL Normal 32.0-35.0 [facility] Comment on above: Performed By: #### C BC, BMP #### [address] Monocytes (Bld) [#/Vol] 0.6 10*3/uL Normal 0.0-0.8 [facility] Comment on above: Performed By: #### C BC, BMP #### [address] Monocytes/100 WBC (Bld) 12.0 % Normal . [facility] Comment on above: Performed By: #### C BC, BMP #### [facility] [address] [place] [id number] [place] Neutrophils (Bld) [#/Vol] 2.8 10*3/uL Normal 1.8-7.7 [facility] Comment on above: Performed By: #### C BC, BMP #### [facility] [address] [place] [address] [place] Neutrophils/100 WBC (Bld) 54.3 % Normal . [facility] Comment on above: Performed By: #### C BC, BMP #### [facility] [address] [place] [address] [place] NRBC% 0.2 /100{WBC} Normal 0-0.5 [facility] Comment on above: Performed By: #### C BC, BMP #### [facility] [address] [place] [id number] [place] Platelet mean volume (Bld) [Entitic vol] 8.0 fL Normal 6.3-10.7 [facility] Comment on above: Performed By: #### C BC, BMP #### [facility] [address] [place] [address] [place] Platelets (Bld) [#/Vol] 161 10*3/uL Normal 150-450 [facility] Comment on above: Performed By: #### C BC, BMP #### [facility] [address] [place] [address] [place] RBC (Bld) [#/Vol] 3.57 10*6/uL Low 3.60-5.00 [facility] Comment on above: Performed By: #### C BC, BMP #### [facility] [address] [place] [address] [place] WBC (Bld) [#/Vol] 5.2 10*3/uL Normal 3.8-11.6 [facility] Comment on above: Performed By: #### C BC, BMP #### [facility] [address] [place] [id number] [place] Creatinine [Mass/volume] in Serum or PlasmaOrdered By: Allan Townsend on 01-16-2023 Creatinine [Mass/Vol] 0.88 mg/dL 0.60-1.20 [facility] ECG 12 lead ECGon 01-16-2023 ECG 12 lead ECG [facility] [address] [place] [id number] Electrocardiograph Report Signed Patient: Atiya Jha MR#: [id number] : 1940 Acct:[id number] Age/Sex: 82 / F ADM Date: 01/14/23 Loc: Room: [address] [place] [address] Type: DIS IN Attending Dr: Allan Townsend DO Ordering Provider: Allan Townsend DO Date of Service: 01/16/23 ECG/ECG 12 [...] now evident in Inferior leads Confirmed by [id number] on 01/16/2023 11:20:09 PM Referred By: Electronically Signed By:KOKO SANTILLAN MD [facility] Transcribed By: [facility] Signed By Darryl Santillan MD 01/16/23 8750 Normal [facility] Eosinophils Auto (Bld) [#/Vo l]Ordered By: Allan Townsend on 01-16-2023 Eosinophils (Bld) [#/Vol] 0.3 10*3/uL 0.0-0.45 [facility] Eosinophils/100 WBC Auto (Bl d)Ordered By: Allan Townsend on 01-16-2023 Eosinophils/100 WBC (Bld) 5.1 % . [facility] Erythrocyte distribution wid th Auto (RBC) [Ratio]Ordered By: Allan Townsend on 01-16-2023 Erythrocyte distribution width (RBC) [Ratio] 13.8 % 11.9-15.3 [facility] Glucose [Mass/volume] in Ser um or PlasmaOrdered By: Allan Townsend on 01-16-2023 Glucose [Mass/Vol] 100 mg/dL 70-100 [facility] Comment on above: ADA recommended refe rence rangeRandom Glucose Reference Range is dependent on time and content of last meal. Glucose of more than 200 mg/dL in a nonstressed, ambulatory subject supports the diagnosis of Diabetes Mellitus. Hematocrit Auto (Bld) [Volum e fraction]Ordered By: Allan Townsend on 01-16-2023 Hematocrit (Bld) [Volume fraction] 32.9 % 34.0-46.4 [facility] Hemoglobin [Mass/volume] in BloodOrdered By: Allan Townsend on 01-16-2023 Hemoglobin (Bld) [Mass/Vol] 11.5 g/dL 11.8-15.4 [facility] Leukocytes [#/volume] correc law for nucleated erythrocytes in Blood by Automated counOrdered By: Allan Townsend on 01-16-2023 WBC corrected for nucl RBC Auto (Bld) [#/Vol] 5.2 10*3/uL 3.8-11.6 [facility] Lymphocytes Auto (Bld) [#/Vo l]Ordered By: Allan Townsend on 01-16-2023 Lymphocytes (Bld) [#/Vol] 1.4 10*3/uL 1.00-4.8 [facility] Lymphocytes/100 WBC Auto (Bl d)Ordered By: Allan Townsend on 01-16-2023 Lymphocytes/100 WBC (Bld) 28.0 % . [facility] MCH Auto (RBC) [Entitic mass ]Ordered By: Allan Townsend on 01-16-2023 MCH (RBC) [Entitic mass] 32.1 pg 24.7-34.3 [facility] MCHC Auto (RBC) [Mass/Vol]Or dered By: Allan Townsend on 01-16-2023 MCHC (RBC) [Mass/Vol] 34.8 g/dL 32.0-35.0 [facility] MCV Auto (RBC) [Entitic vol] Ordered By: Allan Townsend on 01-16-2023 MCV (RBC) [Entitic vol] 92.2 fL 80-100 [facility] Monocytes Auto (Bld) [#/Vol] Ordered By: Allan Townsend on 01-16-2023 Monocytes (Bld) [#/Vol] 0.6 10*3/uL 0.0-0.8 [facility] Monocytes/100 WBC Auto (Bld) Ordered By: Allan Townsend on 01-16-2023 Monocytes/100 WBC (Bld) 12.0 % . [facility] Neutrophils Auto (Bld) [#/Vo l]Ordered By: Allan Townsend on 01-16-2023 Neutrophils (Bld) [#/Vol] 2.8 10*3/uL 1.8-7.7 [facility] Neutrophils/100 WBC Auto (Bl d)Ordered By: Allan Townsend on 01-16-2023 Neutrophils/100 WBC (Bld) 54.3 % . [facility] No Panel InformationOrdered By: Allan Townsend on 01-16-2023 Estimated GFR (CKD-EPI) > 60.0 mL/Min [facility] Creatinine Clearance (Chem 48.86 [facility] Nucleated erythrocytes [Pres ence] in Blood by Automated countOrdered By: Allan Townsend on 01-16-2023 Nucleated RBC Auto Ql (Bld) 0.2 /100{WBC} 0-0.5 [facility] Platelet mean volume Auto (B ld) [Entitic vol]Ordered By: Allan Townsend on 01-16-2023 Platelet mean volume (Bld) [Entitic vol] 8.0 fL 6.3-10.7 [facility] Platelets Auto (Bld) [#/Vol] Ordered By: Allan Townsend on 01-16-2023 Platelets (Bld) [#/Vol] 161 10*3/uL 150-450 [facility] Potassium [Moles/volume] in Serum or PlasmaOrdered By: Allan Townsend on 01-16-2023 Potassium [Moles/Vol] 4.0 mmol/L 3.5-5.1 [facility] RBC Auto (Bld) [#/Vol]Ordere d By: Allan Townsend on 01-16-2023 RBC (Bld) [#/Vol] 3.57 10*6/uL 3.60-5.00 [facility] Serum or plasma anion gap de terminationOrdered By: Allan Townsend on 01-16-2023 Anion gap [Moles/Vol] 11.8 mmol/L 6.0-15.0 [facility] Sodium [Moles/volume] in Ser um or PlasmaOrdered By: Allan Townsend on 01-16-2023 Sodium [Moles/Vol] 140 mmol/L 136-145 [facility] Urea nitrogen [Mass/volume] in Serum or PlasmaOrdered By: Allan Townsend on 01-16-2023 Urea nitrogen [Mass/Vol] 15 mg/dL 7-25 [facility] WBC Auto (Bld) [#/Vol]Ordere d By: Allan Townsend on 01-16-2023 WBC (Bld) [#/Vol] 5.2 10*3/uL 3.8-11.6 [facility] Basic Metabolic Panelon 01-01 Anion gap [Moles/Vol] 11.7 mmol/L Normal 6.0-15.0 [facility] Comment on above: Performed By: #### H S TROP #### [facility] [address] [place] [id number] [place] Calcium [Mass/Vol] 8.6 mg/dL Normal 8.6-10.3 [facility] Comment on above: Performed By: #### H S TROP #### [facility] [address] [place] [phone] [place] Chloride [Moles/Vol] 105 mmol/L Normal 98-107 [facility] Comment on above: Performed By: #### H S TROP #### [facility] [address] [place] [address] [place] CO2 [Moles/Vol] 24.1 mmol/L Normal 21.0-31.0 [facility] Comment on above: Performed By: #### H S TROP #### [facility] [address] [place] [phone] [place] Creatinine [Mass/Vol] 0.80 mg/dL Normal 0.60-1.20 [facility] Comment on above: Performed By: #### H S TROP #### [address] Creatinine Clr Calc Pharmacy 53.75 Normal [facility] Comment on above: Result Comment: PERF ORMED BY: [place] [address] PATHOLOGIST CANDY VENDOR JAYDE CARDOZA M.D. Performed By: #### H S TROP #### [place] [address] [place] GFR/1.73 sq M.predicted MDRD (S/P/Bld) [Vol rate/Area] mL/min/{1.73_m2} Normal [facility] Comment on above: Performed By: #### H S TROP #### [address] Glucose [Mass/Vol] 97 mg/dL Normal 70-100 [facility] Comment on above: Result Comment: [place] Glucose Reference Range is dependent on time and content of last meal. Glucose of more than 200 mg/dL in a nonstressed, ambulatory subject supports the diagnosis of Diabetes Mellitus. ADA recommended reference range Performed By: #### H S TROP #### [address] Potassium [Moles/Vol] 3.8 mmol/L Normal 3.5-5.1 [facility] Comment on above: Performed By: #### H S TROP #### [place] [address] [place] Sodium [Moles/Vol] 137 mmol/L Normal 136-145 [facility] Comment on above: Performed By: #### H S TROP #### [address] Urea nitrogen [Mass/Vol] 14 mg/dL Normal 7-25 [facility] Comment on above: Performed By: #### H S TROP #### [address] Complete Blood Count Auto Di ffon 01-15-2023 Basophils (Bld) [#/Vol] 0.0 10*3/uL Normal 0.0-0.2 [facility] Comment on above: Result Comment: PERF ORMED BY: [place] [address] PATHOLOGIST CANDY VENDOR JAYDE CARDOZA M.D. Performed By: #### H S TROP #### [address] Basophils/100 WBC (Bld) 0.4 % Normal . [facility] Comment on above: Performed By: #### H S TROP #### [address] Eosinophils (Bld) [#/Vol] 0.2 10*3/uL Normal 0.0-0.45 [facility] Comment on above: Performed By: #### H S TROP #### [address] Eosinophils/100 WBC (Bld) 2.7 % Normal . [facility] Comment on above: Performed By: #### H S TROP #### [address] Erythrocyte distribution width (RBC) [Ratio] 13.7 % Normal 11.9-15.3 [facility] Comment on above: Performed By: #### H S TROP #### [address] Hematocrit (Bld) [Volume fraction] 33.2 % Low 34.0-46.4 [facility] Comment on above: Performed By: #### H S TROP #### [address] Hemoglobin (Bld) [Mass/Vol] 11.6 g/dL Low 11.8-15.4 [facility] Comment on above: Performed By: #### H S TROP #### [address] Lymphocytes (Bld) [#/Vol] 1.4 10*3/uL Normal 1.00-4.8 [facility] Comment on above: Performed By: #### H S TROP #### [address] Lymphocytes/100 WBC (Bld) 19.7 % Normal . [facility] Comment on above: Performed By: #### H S TROP #### [address] MCH (RBC) [Entitic mass] 31.8 pg Normal 24.7-34.3 [facility] Comment on above: Performed By: #### H S TROP #### [address] MCV (RBC) [Entitic vol] 91.0 fL Normal 80-100 [facility] Comment on above: Performed By: #### H S TROP #### [address] Mean Corpuscular HGB Conc 34.9 g/dL Normal 32.0-35.0 [facility] Comment on above: Performed By: #### H S TROP #### [address] Monocytes (Bld) [#/Vol] 0.6 10*3/uL Normal 0.0-0.8 [facility] Comment on above: Performed By: #### H S TROP #### [address] Monocytes/100 WBC (Bld) 8.9 % Normal . [facility] Comment on above: Performed By: #### H S TROP #### [address] Neutrophils (Bld) [#/Vol] 4.7 10*3/uL Normal 1.8-7.7 [facility] Comment on above: Performed By: #### H S TROP #### [address] Neutrophils/100 WBC (Bld) 68.3 % Normal . [facility] Comment on above: Performed By: #### H S TROP #### [address] NRBC% 0.1 /100{WBC} Normal 0-0.5 [facility] Comment on above: Performed By: #### H S TROP #### [address] Platelet mean volume (Bld) [Entitic vol] 7.8 fL Normal 6.3-10.7 [facility] Comment on above: Performed By: #### H S TROP #### [facility] [address] [place] [id number] [place] Platelets (Bld) [#/Vol] 160 10*3/uL Normal 150-450 [facility] Comment on above: Performed By: #### H S TROP #### [address] RBC (Bld) [#/Vol] 3.65 10*6/uL Normal 3.60-5.00 [facility] Comment on above: Performed By: #### H S TROP #### [place] [id number] [facility] WBC (Bld) [#/Vol] 6.9 10*3/uL Normal 3.8-11.6 [facility] Comment on above: Performed By: #### H S TROP #### [address] ECG 12 lead ECGon 01-15-2023 ECG 12 lead ECG [facility] [address] [place] [address] [place] [address] Electrocardiograph Report Signed Patient: Atiya Jha MR#: [id number] : 1940 Acct:[id number] Age/Sex: 82 / F ADM Date: 01/14/23 Loc: Room: [address] [place] [address] Type: ADM IN Attending Dr: Allan Townsend DO Ordering Provider: Allan Townsend DO Date of Service: 01/15/23 ECG/ECG 12 [...] now evident in Anterolateral leads Confirmed by TYRELL [facility]AMS [facility] ([id number] on 01/15/2023 11:41:06 AM Referred By: Electronically Signed By:KOKO SANTILLAN MD [facility] Transcribed By: MUS Signed By Darryl Santillan MD 01/15/23 1141 Normal [facility] ECH echo transthoracicon ECH echo transthoracic [facility] [place] [address] Echocardiogram Signed Patient: Atiya Jha MR#: [id number] : 1940 Acct:[id number] Age/Sex: 82 / F ADM Date: 01/14/23 Loc: Room: [address] [place] [address] Type: ADM IN Attending Dr: Allan Townsend DO Ordering Provider: Allan Townsend DO Date of Service: 01/15/23 [facility] transthoracic: STEMI Copies to: MD Allan [...] RAP systole: 3.0 mmHg ___ Transcribed By: GAY Performed At: 01/15/23 0925 Signed By: Xiomara Ndiaye MD 01/15/23 1129 Normal [facility] Glucose Glucometer (BldC) [M ass/Vol]Ordered By: Allan Townsend on 01-15-2023 Glucose [Mass/Vol] 108 mg/dL [facility] Comment on above: Random Glucose Refer ence Range is dependent on time and content of last meal. Glucose of more than 200 mg/dL in a nonstressed, ambulatory subject supports the diagnosis of Diabetes Mellitus. Glucose Poct Glucometerson 0 01-15-2023 Glucose [Mass/Vol] 108 mg/dL Normal [facility] Comment on above: Result Comment: [place] Glucose Reference Range is dependent on time and content of last meal. Glucose of more than 200 mg/dL in a nonstressed, ambulatory subject supports the diagnosis of Diabetes Mellitus. PERFORMED BY: [place] [address] PATHOLOGIST CANDY VENDOR JAYDE CARDOZA M.D. Performed By: #### H S TROP #### [address] Troponin I High Sensitivityo n 01-15-2023 Troponin I High Sensitivity 85270.5 pg/mL Off scale high 0.0-15.0 [facility] Comment on above: Result Comment: Crit ical Result : Called to and read back by: SEAN WHITTAKER at: 01/15/2023 05:46:06 by:[id number] PERFORMED BY: [place] [address] PATHOLOGIST CANDY VENDOR JAYDE CARDOZA M.D. Performed By: #### H S TROP #### [facility] [address] [place] [address] [place] Troponin I High Sensitivity 35033.5 pg/mL Off scale high 0.0-15.0 [facility] Comment on above: Result Comment: Crit ical Result I_TnIHS_d:44207.5 Called to and read back by: SEAN WHITTAKER at: 01/14/2023 23:11:25 by:[id number] PERFORMED BY: [place] [address] PATHOLOGIST CANDY VENDOR JAYDE CARDOZA M.D. Performed By: #### H S TROP #### [address] Troponin I.cardiac [Mass/vol ume] in Serum or Plasma by Detection limit <= 0.01 ng/Ordered By: Allan Townsend on 01-15-2023 Troponin I.cardiac DL <= 0.01 ng/mL [Mass/Vol] 97701.5 pg/mL 0.0-15.0 [facility] Comment on above: Critical Result : Ca lled to and read back by: SEAN WHITTAKER at: 01/15/2023 05:46:06 by:[id number] Activated partial thrombopla stin time (aPTT) in platelet poor plasma by coagulation aOrdered By: Chaitanya Lu on 01-14-2023 aPTT Coag (PPP) [Time] 274.4 s 25.1-36.5 [facility] Comment on above: result calledat 1017 on 01/14/23 Alanine aminotransferase [En zymatic activity/volume] in Serum or PlasmaOrdered By: Chaitanya Lu on 01-14-2023 ALT [Catalytic activity/Vol] 13 U/L 7-52 [facility] Albumin [Mass/volume] in Ser um or Plasma by Bromocresol green (BCG) dye binding methoOrdered By: Chaitanya Lu on 01-14-2023 Albumin BCG dye [Mass/Vol] 4.3 g/dL 3.5-5.7 [facility] Alkaline phosphatase [Enzyma tic activity/volume] in Serum or PlasmaOrdered By: Chaitanya Lu on 01-14-2023 ALP [Catalytic activity/Vol] 49 U/L 34-104 [facility] Aspartate aminotransferase [ Enzymatic activity/volume] in Serum or PlasmaOrdered By: Chaitanya Lu on 01-14-2023 AST [Catalytic activity/Vol] 16 U/L 13-39 [facility] B-Type Natriuretic Peptideon 01-14-2023 Natriuretic peptide B (Bld) [Mass/Vol] 191.0 pg/mL High 5-100 [facility] Comment on above: Result Comment: PERF ORMED BY: [place] [address] PATHOLOGIST CANDY VENDOR JAYDE CARDOZA M.D. Performed By: #### H S TROP #### [facility] [address] [place] [address] Basophils Auto (Bld) [#/Vol] Ordered By: Chaitanya Lu on 01-14-2023 Basophils (Bld) [#/Vol] 0.0 10*3/uL 0.0-0.2 [facility] Basophils/100 WBC Auto (Bld) Ordered By: Chaitanya Lu on 01-14-2023 Basophils/100 WBC (Bld) 0.7 % . [facility] Bilirubin.total [Mass/volume ] in Serum or PlasmaOrdered By: Chaitanya Lu on 01-14-2023 Bilirubin [Mass/Vol] 0.7 mg/dL 0.3-1.0 [facility] Calcium [Mass/volume] in Ser um or PlasmaOrdered By: Chaitanya Lu on 01-14-2023 Calcium [Mass/Vol] 8.7 mg/dL 8.6-10.3 [facility] Carbon dioxide, total [Moles /volume] in Serum or PlasmaOrdered By: Chaitanya Lu on 01-14-2023 CO2 [Moles/Vol] 21.9 mmol/L 21.0-31.0 [facility] Chloride [Moles/volume] in S [place] or PlasmaOrdered By: Chaitanya Lu on 01-14-2023 Chloride [Moles/Vol] 107 mmol/L 98-107 [facility] Complete Blood Count Auto Di ffon 01-14-2023 Basophils (Bld) [#/Vol] 0.0 10*3/uL Normal 0.0-0.2 [facility] Comment on above: Result Comment: PERF ORMED BY: [place] [address] PATHOLOGIST CANDY VENDOR JAYDE CARDOZA M.D. Performed By: #### H S TROP #### [address] Basophils/100 WBC (Bld) 0.7 % Normal . [facility] Comment on above: Performed By: #### H S TROP #### [address] Eosinophils (Bld) [#/Vol] 0.2 10*3/uL Normal 0.0-0.45 [facility] Comment on above: Performed By: #### H S TROP #### [address] Eosinophils/100 WBC (Bld) 3.6 % Normal . [facility] Comment on above: Performed By: #### H S TROP #### [address] Erythrocyte distribution width (RBC) [Ratio] 13.4 % Normal 11.9-15.3 [facility] Comment on above: Performed By: #### H S TROP #### [address] Hematocrit (Bld) [Volume fraction] 33.5 % Low 34.0-46.4 [facility] Comment on above: Performed By: #### H S TROP #### [address] Hemoglobin (Bld) [Mass/Vol] 11.4 g/dL Low 11.8-15.4 [facility] Comment on above: Performed By: #### H S TROP #### [address] Lymphocytes (Bld) [#/Vol] 2.1 10*3/uL Normal 1.00-4.8 [facility] Comment on above: Performed By: #### H S TROP #### [address] Lymphocytes/100 WBC (Bld) 35.4 % Normal . [facility] Comment on above: Performed By: #### H S TROP #### [address] MCH (RBC) [Entitic mass] 31.4 pg Normal 24.7-34.3 [facility] Comment on above: Performed By: #### H S TROP #### [address] MCV (RBC) [Entitic vol] 92.1 fL Normal 80-100 [facility] Comment on above: Performed By: #### H S TROP #### [address] Mean Corpuscular HGB Conc 34.1 g/dL Normal 32.0-35.0 [facility] Comment on above: Performed By: #### H S TROP #### [address] Monocytes (Bld) [#/Vol] 0.5 10*3/uL Normal 0.0-0.8 [facility] Comment on above: Performed By: #### H S TROP #### [place] [address] [place] Monocytes/100 WBC (Bld) 17.24 % Normal 0.00-20.00 [facility] Comment on above: Performed By: #### H S TROP #### [address] Monocytes/100 WBC (Bld) 8.9 % Normal . [facility] Comment on above: Performed By: #### H S TROP #### [address] Neutrophils (Bld) [#/Vol] 3.1 10*3/uL Normal 1.8-7.7 [facility] Comment on above: Performed By: #### H S TROP #### [address] Neutrophils/100 WBC (Bld) 51.4 % Normal . [facility] Comment on above: Performed By: #### H S TROP #### [address] NRBC% 0.1 /100{WBC} Normal 0-0.5 [facility] Comment on above: Performed By: #### H S TROP #### [address] Platelet mean volume (Bld) [Entitic vol] 8.3 fL Normal 6.3-10.7 [facility] Comment on above: Performed By: #### H S TROP #### [address] Platelets (Bld) [#/Vol] 183 10*3/uL Normal 150-450 [facility] Comment on above: Performed By: #### H S TROP #### [address] RBC (Bld) [#/Vol] 3.64 10*6/uL Normal 3.60-5.00 [facility] Comment on above: Performed By: #### H S TROP #### [address] WBC (Bld) [#/Vol] 5.9 10*3/uL Normal 3.8-11.6 [facility] Comment on above: Performed By: #### H S TROP #### [address] Comprehensive Metabolic Pane gabriel 01-14-2023 Albumin [Mass/Vol] 4.3 g/dL Normal 3.5-5.7 [facility] Comment on above: Performed By: #### H S TROP #### [address] Albumin/Globulin [Mass ratio] 2.0 {ratio} Normal [facility] Comment on above: Performed By: #### H S TROP #### [address] ALP [Catalytic activity/Vol] 49 U/L Normal 34-104 [facility] Comment on above: Performed By: #### H S TROP #### [address] ALT [Catalytic activity/Vol] 13 U/L Normal 7-52 [facility] Comment on above: Performed By: #### H S TROP #### [address] Anion gap [Moles/Vol] 15.2 mmol/L High 6.0-15.0 [facility] Comment on above: Performed By: #### H S TROP #### [address] AST [Catalytic activity/Vol] 16 U/L Normal 13-39 [facility] Comment on above: Performed By: #### H S TROP #### [address] Bilirubin [Mass/Vol] 0.7 mg/dL Normal 0.3-1.0 [facility] Comment on above: Performed By: #### H S TROP #### [address] Calcium [Mass/Vol] 8.7 mg/dL Normal 8.6-10.3 [facility] Comment on above: Performed By: #### H S TROP #### [address] Chloride [Moles/Vol] 107 mmol/L Normal 98-107 [facility] Comment on above: Performed By: #### H S TROP #### [address] CO2 [Moles/Vol] 21.9 mmol/L Normal 21.0-31.0 [facility] Comment on above: Performed By: #### H S TROP #### [address] Creatinine [Mass/Vol] 0.86 mg/dL Normal 0.60-1.20 [facility] Comment on above: Performed By: #### H S TROP #### [address] Creatinine Clr Calc Pharmacy 49.92 Normal [facility] Comment on above: Result Comment: PERF ORMED BY: [place] [address] PATHOLOGIST CANDY VENDOR JAYDE CARDOZA M.D. Performed By: #### H S TROP #### [place] [address] [place] GFR/1.73 sq M.predicted MDRD (S/P/Bld) [Vol rate/Area] mL/min/{1.73_m2} Normal [facility] Comment on above: Performed By: #### H S TROP #### [place] [address] [place] Globulin (S) [Mass/Vol] 2.1 g/dL Normal [facility] Comment on above: Performed By: #### H S TROP #### [address] Glucose [Mass/Vol] 132 mg/dL High 70-100 [facility] Comment on above: Result Comment: [facility] Glucose Reference Range is dependent on time and content of last meal. Glucose of more than 200 mg/dL in a nonstressed, ambulatory subject supports the diagnosis of Diabetes Mellitus. ADA recommended reference range Performed By: #### H S TROP #### [address] Potassium [Moles/Vol] 3.1 mmol/L Low 3.5-5.1 [facility] Comment on above: Performed By: #### H S TROP #### [address] Protein [Mass/Vol] 6.4 g/dL Normal 6.4-8.9 [facility] Comment on above: Performed By: #### H S TROP #### [address] Sodium [Moles/Vol] 141 mmol/L Normal 136-145 [facility] Comment on above: Performed By: #### H S TROP #### [address] Urea nitrogen [Mass/Vol] 20 mg/dL Normal 7-25 [facility] Comment on above: Performed By: #### H S TROP #### [place] [address] [place] Creatine Kinaseon 01-14-2023 CK [Catalytic activity/Vol] 119 U/L Normal 30 [facility] Comment on above: Performed By: #### H S TROP #### [place] [id number] [facility] Creatine kinase [Enzymatic a ctivity/volume] in Serum or PlasmaOrdered By: Chaitanya Lu on 01-14-2023 CK [Catalytic activity/Vol] 119 U/L 30- [facility] Creatinine [Mass/volume] in Serum or PlasmaOrdered By: Chaitanya Lu on 01-14-2023 Creatinine [Mass/Vol] 0.86 mg/dL 0.60-1.20 [facility] ECG 12 lead ECGon 01-14-2023 ECG 12 lead ECG [facility] [place] [address] [place] [address] Electrocardiograph Report Signed Patient: Atiya Jha MR#: [id number] : 1940 Acct:[id number] Age/Sex: 82 / F ADM Date: 01/14/23 Loc: Room: [address] [place] [address] Type: ADM IN Attending Dr: Allan Townsend DO Ordering Provider: Allan Townsend DO Date of Service: 01/14/23 ECG/ECG 12 [...] new Anteroseptal infarct , possibly acute ACUTE [place] Abnormal ECG When compared with ECG of 14-JAN-2023 09:10, premature atrial complexes are no longer present Acute Inferior infarct is now present Confirmed by KOKO SANTILLAN MD, FACC ([id number]) on 01/15/2023 11:41:01 AM Referred By: Electronically Signed By:KOKO SANTILLAN MD, FACC Transcribed By: MUS Signed By Darryl Santillan MD 01/15/23 1141 Normal [facility] ECG 12 lead ECG [facility] [place] [address] Electrocardiograph Report Signed Patient: Atiya Jha MR#: [id number] : 1940 Acct:[id number] Age/Sex: 82 / F ADM Date: 01/14/23 Loc: Room: [address] [place] [address] Type: REG SDC Attending Dr: Allan Townsend DO Ordering Provider: Chaitanya Lu DO Date of Service: 01/14/23 ECG/ECG 12 [...] injury or acute infarct Prolonged QT ACUTE AK / STEMI Abnormal ECG Confirmed by Chaitanya LU DO ([id number]) on 01/14/2023 10:50:51 AM Referred By: Electronically Signed By:Chaitanya LU DO Transcribed By: MUS Signed By Chaitanya Lu DO 0 01/14/23 1050 Normal [facility] Eosinophils Auto (Bld) [#/Vo l]Ordered By: Chaitanya Lu on 01-14-2023 Eosinophils (Bld) [#/Vol] 0.2 10*3/uL 0.0-0.45 [facility] Eosinophils/100 WBC Auto (Bl d)Ordered By: Chaitanya Lu on 01-14-2023 Eosinophils/100 WBC (Bld) 3.6 % . [facility] Erythrocyte distribution wid th Auto (RBC) [Ratio]Ordered By: Chaitanya Lu on 01-14-2023 Erythrocyte distribution width (RBC) [Ratio] 13.4 % 11.9-15.3 [facility] Globulin Calc (S) [Mass/Vol] Ordered By: Chaitanya Lu on 01-14-2023 Globulin (S) [Mass/Vol] 2.1 g/dL [facility] Glucose Poct Glucometerson 0 01-14-2023 Glucose [Mass/Vol] 112 mg/dL Normal [facility] Comment on above: Result Comment: [place] Glucose Reference Range is dependent on time and content of last meal. Glucose of more than 200 mg/dL in a nonstressed, ambulatory subject supports the diagnosis of Diabetes Mellitus. PERFORMED BY: [facility] [address] [facility] [place] [address] PATHOLOGIST CANDY VENDOR JAYDE CARDOZA M.D. Performed By: #### L YTES, CBC, CREAT, BUN, PP, LIPID #### [facility] [address] Glucose [Mass/volume] in Ser um or PlasmaOrdered By: Chaitanya Lu on 01-14-2023 Glucose [Mass/Vol] 132 mg/dL 70-100 [facility] Comment on above: ADA recommended refe rence rangeRandom Glucose Reference Range is dependent on time and content of last meal. Glucose of more than 200 mg/dL in a nonstressed, ambulatory subject supports the diagnosis of Diabetes Mellitus. Hematocrit Auto (Bld) [Volum e fraction]Ordered By: Chaitanya Lu on 01-14-2023 Hematocrit (Bld) [Volume fraction] 33.5 % 34.0-46.4 [facility] Hemoglobin [Mass/volume] in BloodOrdered By: Chaitanya Lu on 01-14-2023 Hemoglobin (Bld) [Mass/Vol] 11.4 g/dL 11.8-15.4 [facility] - CoagulationOrde red By: Chaitanya Lu on 01-14-2023 PT Coag (PPP) [Time] 11.9 s 9.0-12.9 [facility] Leukocytes [#/volume] correc law for nucleated erythrocytes in Blood by Automated counOrdered By: Chaitanya Lu on 01-14-2023 WBC corrected for nucl RBC Auto (Bld) [#/Vol] 5.9 10*3/uL 3.8-11.6 [facility] Lymphocytes Auto (Bld) [#/Vo l]Ordered By: Chaitanya Lu on 01-14-2023 Lymphocytes (Bld) [#/Vol] 2.1 10*3/uL 1.00-4.8 [facility] Lymphocytes/100 WBC Auto (Bl d)Ordered By: Chaitanya Lu on 01-14-2023 Lymphocytes/100 WBC (Bld) 35.4 % . [facility] MCH Auto (RBC) [Entitic mass ]Ordered By: Chaitanya Lu on 01-14-2023 MCH (RBC) [Entitic mass] 31.4 pg 24.7-34.3 [facility] MCHC Auto (RBC) [Mass/Vol]Or dered By: Chaitanya Lu on 01-14-2023 MCHC (RBC) [Mass/Vol] 34.1 g/dL 32.0-35.0 [facility] MCV Auto (RBC) [Entitic vol] Ordered By: Chaitanya Lu on 01-14-2023 MCV (RBC) [Entitic vol] 92.1 fL 80-100 [facility] Monocyte distribution width [Entitic volume] in Blood by AutomatedOrdered By: Chaitanya Lu on 01-14-2023 Monocyte distribution width Auto (Bld) [Entitic vol] 17.24 % 0.00-20.00 [facility] Monocytes Auto (Bld) [#/Vol] Ordered By: Chaitanya Lu on 01-14-2023 Monocytes (Bld) [#/Vol] 0.5 10*3/uL 0.0-0.8 [facility] Monocytes/100 WBC Auto (Bld) Ordered By: Chaitanya Lu on 01-14-2023 Monocytes/100 WBC (Bld) 8.9 % . [facility] Natriuretic peptide B [Mass/ Vol]Ordered By: Chaitanya Lu on 01-14-2023 Natriuretic peptide B (Bld) [Mass/Vol] 191.0 pg/mL 5-100 [facility] Neutrophils Auto (Bld) [#/Vo l]Ordered By: Chaitanya Lu on 01-14-2023 Neutrophils (Bld) [#/Vol] 3.1 10*3/uL 1.8-7.7 [facility] Neutrophils/100 WBC Auto (Bl d)Ordered By: Chaitanya Lu on 01-14-2023 Neutrophils/100 WBC (Bld) 51.4 % . [facility] No Panel InformationOrdered By: Chaitanya Lu on 01-14-2023 Estimated GFR (CKD-EPI) > 60.0 mL/Min [facility] Creatinine Clearance (Chem 49.92 [facility] Nucleated erythrocytes [Pres ence] in Blood by Automated countOrdered By: Chaitanya Lu on 01-14-2023 Nucleated RBC Auto Ql (Bld) 0.1 /100{WBC} 0-0.5 [facility] Partial Thromboplastin Timeo n 01-14-2023 aPTT Coag (Bld) [Time] 274.4 s Off scale high 25.1-36.5 [facility] Comment on above: Result Comment: resu lt called at 1017 on 01/14/23 PERFORMED BY: [facility] [address] [place] [address] PATHOLOGIST CANDY VENDOR JAYDE CARDOZA M.D. Performed By: #### L YTES, CBC, CREAT, BUN, PP, LIPID #### [facility] [address] Platelet mean volume Auto (B ld) [Entitic vol]Ordered By: Chaitanya Lu on 01-14-2023 Platelet mean volume (Bld) [Entitic vol] 8.3 fL 6.3-10.7 [facility] Platelet poor plasma interna tional normalized ratio (INR) by coagulation assay (relatOrdered By: Chaitanya Lu on 01-14-2023 INR Coag (PPP) [Relative time] 1.0 {INR} [facility] Comment on above: INR Therapeutic Rang e [...] Platelets Auto (Bld) [#/Vol] Ordered By: Chaitanya Lu on 01-14-2023 Platelets (Bld) [#/Vol] 183 10*3/uL 150-450 [facility] Potassium [Moles/volume] in Serum or PlasmaOrdered By: Chaitanya Lu on 01-14-2023 Potassium [Moles/Vol] 3.1 mmol/L 3.5-5.1 [facility] Protein [Mass/volume] in Ser um or PlasmaOrdered By: Chaitanya Lu on 01-14-2023 Protein [Mass/Vol] 6.4 g/dL 6.4-8.9 [facility] Prothrombin Time INRon 01-14 INR Coag (PPP) [Relative time] 1.0 {INR} Normal [facility] Comment on above: Result Comment: INR Therapeutic [...] valves: 3 - 4.5 Performed By: #### H S TROP #### [facility] [address] PT Coag (PPP) [Time] 11.9 s Normal 9.0-12.9 [facility] Comment on above: Performed By: #### H S TROP #### [facility] [address] RBC Auto (Bld) [#/Vol]Ordere d By: Chaitanya Lu on 01-14-2023 RBC (Bld) [#/Vol] 3.64 10*6/uL 3.60-5.00 [facility] Serum or plasma albumin/glob ulin mass ratioOrdered By: Chaitanya Lu on 01-14-2023 Albumin/Globulin [Mass ratio] 2.0 {ratio} [facility] Serum or plasma anion gap de terminationOrdered By: Chaitanya Lu on 01-14-2023 Anion gap [Moles/Vol] 15.2 mmol/L 6.0-15.0 [facility] Sodium [Moles/volume] in Ser um or PlasmaOrdered By: Chaitanya Lu on 01-14-2023 Sodium [Moles/Vol] 141 mmol/L 136-145 [facility] Troponin I High Sensitivityo n 01-14-2023 Troponin I High Sensitivity 25356.6 pg/mL Off scale high 0.0-15.0 [facility] Comment on above: Result Comment: Crit ical Result : Called to and read back by: SEAN WHITTAKER at: 01/14/2023 19:32:36 by:[id number] PERFORMED BY: [place] [address] PATHOLOGIST CANDY VENDOR JAYDE CARDOZA M.D. Performed By: #### L YTES, CBC, CREAT, BUN, PP, LIPID #### [facility] [address] [place] [address] [place] Troponin I High Sensitivity 75950.8 pg/mL Off scale high 0.0-15.0 [facility] Comment on above: Result Comment: Crit ical Result I_TnIHS_d:25558.8 Called to and read back by: LEON TRUJILLO at: 01/14/2023 16:59:03 by:ELIUD PERFORMED BY: [place] [id number] PATHOLOGIST CANDY VENDOR JAYDE CARDOZA M.D. Performed By: #### H S TROP #### [place] [address] [place] Troponin I High Sensitivity 92219.0 pg/mL Off scale high 0.0-15.0 [facility] Comment on above: Result Comment: Crit ical Result : Called to and read back by: MORRO TAVAREZ at: 01/14/2023 14:28:25 by:SHONDA PERFORMED BY: [place] [address] PATHOLOGIST CANDY VENDOR JAYDE CARDOZA M.D. Performed By: #### H S TROP #### [place] [address] [place] Troponin I High Sensitivity 43.4 pg/mL High 0.0-15.0 [facility] Comment on above: Result Comment: PERF ORMED BY: [place] [address] PATHOLOGIST CANDY VENDOR JAYDE CARDOZA M.D. Performed By: #### H S TROP #### [facility] [address] Troponin I.cardiac [Mass/vol ume] in Serum or Plasma by Detection limit <= 0.01 ng/Ordered By: Chaitanya Lu on 01-14-2023 Troponin I.cardiac DL <= 0.01 ng/mL [Mass/Vol] 43.4 pg/mL 0.0-15.0 [facility] Urea nitrogen [Mass/volume] in Serum or PlasmaOrdered By: Chaitanya Lu on 01-14-2023 Urea nitrogen [Mass/Vol] 20 mg/dL 7-25 [facility] WBC Auto (Bld) [#/Vol]Ordere d By: Chaitanya Lu on 01-14-2023 WBC (Bld) [#/Vol] 5.9 10*3/uL 3.8-11.6 [facility] LIPID PROFILEon 12-03-2022 CHOL-HDL RATIO NORM SEE BELOW Normal [facility] Comment on above: Result Comment: 3.3 - 4.4 LOW RISK 4.4 - 7.1 AVERAGE RISK 7.1 - 11.0 MODERATE RISK >11.0 HIGH RISK Performed By: #### B MP, LIPID, AST #### [facility] [address] [place] [address] Dr. Cynthia Arroyo Cholesterol [Mass/Vol] 167 mg/dL Normal <=200 [facility] Comment on above: Performed By: #### B MP, LIPID, AST #### [facility] [address] [place] [address] Dr. Cynthia Arroyo Cholesterol in HDL [Mass/Vol] 40 mg/dL Normal 40-60 [facility] Comment on above: Performed By: #### B MP, LIPID, AST #### [facility] [address] [address] [address] Cynthia Arroyo Cholesterol in LDL [Mass/Vol] 101.8 mg/dL Normal [facility] Comment on above: Performed By: #### B MP, LIPID, AST #### [facility] [address] [address] [address] Cynthia Arroyo Cholesterol.total/Chol esterol in HDL [Mass ratio] 4.2 {ratio} Normal [facility] Comment on above: Performed By: #### B MP, LIPID, AST #### [facility] [address] [place] [address] Dr. Cynthia Arroyo HDL NORMAL > or = 60 mg/dl - LO W CARDIOVASCULAR RISK <40 mg/dl - HIGH CARDIOVASCULAR RISK Normal [facility] Comment on above: Performed By: #### B MP, LIPID, AST #### [facility] [address] [place] [address] Dr. Cynthia Arroyo LDL CALC NORMAL SEE BELOW Normal [facility] Comment on above: Result Comment: <100 mg/dl OPTIMAL 100 - 129 mg/dl NEAR OR ABOVE OPTIMAL 130 - 159 mg/dl BORDERLINE HIGH 160 - 189 mg/dl HIGH >190 mg/dl VERY HIGH Performed By: #### B MP, LIPID, AST #### [facility] [address] [place] [address] Dr. Cynthia Arroyo Triglyceride [Mass/Vol] 126 mg/dL Normal <=150 [facility] Comment on above: Performed By: #### B MP, LIPID, AST #### [facility] [address] [place] [address] Dr. Cynthia Arroyo VLDL CALC 25.2 mg/dL Normal [facility] Comment on above: Performed By: #### B MP, LIPID, AST #### [facility] [address] [place] [address] Dr. Cynthia Arroyo PROF CHEM 8 (BAS METB)on Anion gap [Moles/Vol] 13.1 mmol/L Normal [facility] Comment on above: Performed By: #### B MP, LIPID, AST #### [facility] [address] [place] [address] Dr. Cynthia Arroyo Calcium [Mass/Vol] 9.1 mg/dL Normal 8.5-10.1 [facility] Comment on above: Performed By: #### B MP, LIPID, AST #### [facility] [address] [place] [address] Dr. Cynthia Arroyo Chloride [Moles/Vol] 102 mmol/L Normal 98-107 [facility] Comment on above: Performed By: #### B MP, LIPID, AST #### [facility] [address] [address] [address] Cynthia Arroyo CO2 [Moles/Vol] 28.3 mmol/L Normal 21.0-32.[address] [facility] Comment on above: Performed By: #### B MP, LIPID, AST #### [facility] [address] [address] [address] Cynthia Arroyo Creatinine [Mass/Vol] 1.04 mg/dL Critically high 0.55-1.02 [facility] Comment on above: Performed By: #### B MP, LIPID, AST #### [facility] [address] [address] [address] Cynthia Arroyo EGFR-AF UGANDAN >60 Normal >=[address] [facility] Comment on above: Performed By: #### B MP, LIPID, AST #### [facility] [address] [address] [address] Cynthia Arroyo EGFR-NON AF UGANDAN 51 mL/min/1.73m2 Critically low >=60 [facility] Comment on above: Performed By: #### B MP, LIPID, AST #### [facility] [address] [address] [address] Cynthia Arroyo Glucose [Mass/Vol] 94 mg/dL Normal 74-106 [facility] Comment on above: Performed By: #### B MP, LIPID, AST #### [facility] [address] [address] [address] Cynthia Arroyo Potassium [Moles/Vol] 4.4 mmol/L Normal 3.5-5.1 [facility] Comment on above: Performed By: #### B MP, LIPID, AST #### [facility] [address] [address] [address] Cynthia Arroyo Sodium [Moles/Vol] 139 mmol/L Normal 136-145 [facility] Comment on above: Performed By: #### B MP, LIPID, AST #### [facility] [address] [address] [address] Cynthia Arroyo Urea nitrogen [Mass/Vol] 18.0 mg/dL Normal 7.0-18.0 [facility] Comment on above: Performed By: #### B MP, LIPID, AST #### [facility] [address] [place], [place] [address] Dr. Cynthia Arroyo Urea nitrogen/Creatinine [Mass ratio] 17.3 mg/mg Normal [facility] Comment on above: Performed By: #### B MP, LIPID, AST #### [facility] [address] [address] [address] Cynthia Arroyo SGOTon 12-03-2022 AST [Catalytic activity/Vol] 13 U/L Critically low 15-37 [facility] Comment on above: Performed By: #### B MP, LIPID, AST #### [facility] [address] [address] [address] Cynthia Arroyo Urinalysis - DIPSTICKon 09-03 Appearance (U) clear [employer] Other Bilirubin Ql (U) small [employer] Other Color (U) opal [employer] Other Glucose Ql (U) Negative [employer] Other Hemoglobin Ql (U) Negative [employer] Other Ketones Ql (U) Negative [employer] Other Leukocyte esterase Test strip Ql (U) trace [employer] Other Nitrite Ql (U) Negative [employer] Other pH (U) 5 [pH] [employer] Other Protein Ql (U) Negative [employer] Other Specific gravity (U) [Rel density] 1.010 [employer] Other Urobilinogen (U) [Mass/Vol] 0.2 mg/dL [employer] Other Urinalysis - DIPSTICK [facility] [employer] Other Office Visit (Cardiology)on 06-04-2022 Follow-up visit [...] 04Jun2022 05:32PMRecorded: 04Jun2022 03:21PM Heart Rate72, R Izbgph46, L Radial Pbzchvph882, RUE, Hbwjpsx430, Sitting Rhybbyxls28, RUE, Qzqnlat73, Sitting Height5 ft 5 in5 ft 5 in Yyeitk729 lb 157 lb BMI Jtkpozeqwl19.13 kg/m226.13 kg/m2 BSA Calculated1.781.78 Tobacco Useb) No [...] . Signatures Electronically signed by : Darryl Santillan MD; Jun 04 2022 5:33PM EST (Author) Normal [employer] Tobacco Screening.on 022 Adult depression screening assessment No [facility] DO Work Phone: Fall risk assessment a) No falls within the last year [facility] DO Work Phone: Tobacco use status [facility] b) No [facility] DO Work Phone: MG MAMM SCREEN 3D DEREK CADon 05-21-2022 MG MAMM SCREEN 3D DEREK CAD Patient: ATIYA JHA Exam Date: 05/21/2022 : 1940 Gender:F Ordering : DR EDER LAURENT . Admission #: [id number] Family : Order #: [id number] CLICK HERE TO VIEW EXAM RADIOLOGY REPORT PROCEDURE: MAMMOGRAM SCREENING 3D BILATERAL CAD COMPARISON: MG MAMM SCREEN DEREK W CAD, 05/15/2017. MG MAMM DEREK SCRN W CAD DIG, 05/14/2016. INDICATIONS: Screening mammography Calculator Name NCI Breast Cancer Risk Assessment Tool 5 Year Breast Cancer Risk 1.30% Lifetime Breast Cancer Risk 1.60% Personal Breast Cancer No Personal Ovarian Cancer No Treatments None Family Cancers None LOCATION: [facility] BREAST COMPOSITION: Heterogeneously dense,which may obscure [...] LUMP SHOULD BE BIOPSIED. Dictated by: Yoselin King M.D. on 05/21/2022 at 15:52 Approved by: Yoselin King M.D. on 05/21/2022 at 15:56 Normal [facility] XR DEXA BONE DENSITYon 05-21 [...] High Fracture Risk Electronically authenticated by: YOSELIN KING Date: 2022-05-21 19:19 Normal [facility] PAP ACOG PANEL 2: 30 to 65on 05-15-2022 . . Normal [facility] Comment on above: Result Comment: Perf ormed at: BA Performed By: #### [id number] #### [facility] [address] [place] [address] Dr. Cynthia Arroyo Age Gdln ACOG Testing Comment Normal [facility] Comment on above: Result Comment: <21 or >65 or no age provided Performed By: #### [id number] #### [facility] [address] [address] [address] Cynthia Arroyo DIAGNOSIS: Comment [facility] Comment on above: Result Comment: NEGA TIVE FOR INTRAEPITHELIAL LESION OR MALIGNANCY. CELLULAR CHANGES ASSOCIATED WITH ATROPHY ARE PRESENT. THIS SPECIMEN WAS RESCREENED PART OF OUR IT COMPLIANCE MANAGER PROGRAM. Performed at: BA Performed By: #### [id number] #### [facility] [address] [address] [address] Cynthia Arroyo Methodology: Comment Normal [facility] Comment on above: Result Comment: This liquid based ThinPrep(R) pap test was screened with the use of an image guided system. Performed at: WB Performed By: #### [id number] #### [facility] [address] [place] [address] Dr. Cynthia Arroyo Note: Comment Normal [facility] Comment on above: Result Comment: The Pap smear is a screening test designed to aid in the detection of premalignant and malignant conditions of the uterine cervix. It is not a diagnostic procedure and should not be used as the sole means of detecting cervical cancer. Both false-positive and false-negative reports do occur. . Performed at: WB Performed By: #### [id number] #### [facility] [address] [place] [address] Dr. Cynthia Arroyo Performed by: Comment Normal [facility] Comment on above: Result Comment: Jimbo Olivares, [facility] [employer] (ASCP) Performed at: BA Performed By: #### [id number] #### [facility] [address] [place] [address] Dr. Cynthia Arroyo QC reviewed by: Comment Normal [facility] Comment on above: Result Comment: Lenny Hanks, [facility] [employer] (ASCP) Performed at: BA Performed By: #### [id number] #### [facility] [address] [place] [address] Dr. Cynthia Arroyo Specimen adequacy: Comment Normal [facility] Comment on above: Result Comment: Sati sfactory for evaluation. Endocervical component may not be distinguished in cases of atrophy. Performed at: BA Performed By: #### [id number] #### [facility] [address] [place] [address] Dr. Cynthia Arroyo Vital Signs Date Time Vital Sign Value Performing Clinician Facility 11-19-2023 07:39-0400 Body temperature 97.5 [degF] DO Danis Vinopolis Work Phone: [facility] 11-19-2023 07:39-0400 Diastolic blood pressure 65 mm[Hg] DO Danis Vinopolis Work Phone: [facility] 11-19-2023 07:39-0400 Heart rate 71 /min DO Danis Ball Work Phone: [facility] 11-19-2023 07:39-0400 Respiratory rate 20 /min DO Danis Ball Work Phone: [facility] 11-19-2023 07:39-0400 SaO2% (BldA) [Mass fraction] 98 % DO Danis Ball Work Phone: [facility] 11-19-2023 07:39-0400 Systolic blood pressure 132 mm[Hg] DO Danis Ball Work Phone: [facility] 11-19-2023 04:32-0400 Body weight 68 kg DO Danis Ball Work Phone: [facility] 11-18-2023 12:31-0400 Body height 165.1 cm DO Danis Ball Work Phone: [facility] 11-10-2023 08:59-0400 Diastolic blood pressure 78 mm[Hg] Leyla [address] [place] [address] 11-10-2023 08:59-0400 Heart rate 61 /min Leyla [address] [place] [address] 11-10-2023 08:59-0400 Systolic blood pressure 128 mm[Hg] [address] 10-27-2023 08:46-0400 Diastolic blood pressure 53 mm[Hg] Celina CAMPBELL Work Phone: [facility] 10-27-2023 08:46-0400 Heart rate 76 /min Celina CAMPBELL Work Phone: [facility] 10-27-2023 08:46-0400 Respiratory rate 20 /min Celina CAMPBELL Work Phone: [facility] 10-27-2023 08:46-0400 Systolic blood pressure 98 mm[Hg] Celina CAMPBELL Work Phone: [facility] 10-20-2023 13:51-0400 Body height 165.1 cm [facility] 10-20-2023 13:51-0400 Body mass index (BMI) [Ratio] 25.2 kg/m2 [facility] 10-20-2023 13:51-0400 Body weight 68.94 kg [facility] 10-20-2023 13:51-0400 Diastolic blood pressure 80 mm[Hg] [facility] 10-20-2023 13:51-0400 Heart rate 60 /min [facility] 10-20-2023 13:51-0400 Respiratory rate 12 /min [facility] 10-20-2023 13:51-0400 Systolic blood pressure 145 mm[Hg] [facility] 08-14-2023 09:15-0500 Body height 165.1 cm Danis Ball Other [facility] 08-14-2023 09:15-0500 Body mass index (BMI) [Ratio] 26.56 kg/m2 Danis Ball Other [facility] [employer] Other 08-14-2023 09:15-0500 Body weight 72.39 kg Danis Ball Other [facility] 08-14-2023 09:15-0500 Diastolic blood pressure 80 mm[Hg] Danis Ball Other [facility] 08-14-2023 09:15-0500 Respiratory rate 12 /min Danis Ball Other [facility] [employer] Other 08-14-2023 09:15-0500 Systolic blood pressure 138 mm[Hg] Danis Ball Other [facility] 07-02-2023 11:00-0500 Body height 165.1 cm Danis Ball Other [facility] [employer] Other 07-02-2023 11:00-0500 Body mass index (BMI) [Ratio] 25.96 kg/m2 Danis Ball Other [facility] [employer] Other 07-02-2023 11:00-0500 Body weight 70.76 kg Danis Ball Other [employer] Other 07-02-2023 11:00-0500 Diastolic blood pressure 77 mm[Hg] Danis Ball Other [employer] Other 07-02-2023 11:00-0500 Respiratory rate 12 /min Danis Ball Other [employer] Other 07-02-2023 11:00-0500 Systolic blood pressure 128 mm[Hg] Danis Ball Other [employer] Other 06-15-2023 09:14-0500 Body height 165.1 cm Darryl Santillan MD Work Phone: [facility] 06-15-2023 09:14-0500 Body mass index (BMI) [Ratio] 25.96 kg/m2 Darryl Santillan MD Work Phone: [facility] 06-15-2023 09:14-0500 Body weight 70.76 kg Darryl Santillan MD Work Phone: [facility] 06-15-2023 09:14-0500 Diastolic blood pressure 78 mm[Hg] Darryl Santillan MD Work Phone: [facility] 06-15-2023 09:14-0500 Heart rate 62 /min Darryl Santillan MD Work Phone: [facility] 06-15-2023 09:14-0500 Systolic blood pressure 114 mm[Hg] Darryl Santillan MD Work Phone: [facility] 03-16-2023 15:15-0400 Body height 165.1 cm Danis Ball Other [employer] Other 03-16-2023 15:15-0400 Body mass index (BMI) [Ratio] 25.16 kg/m2 Danis Ball Other [employer] Other 03-16-2023 15:15-0400 Body weight 68.58 kg Danis Ball Other [employer] Other 03-16-2023 15:15-0400 Diastolic blood pressure 80 mm[Hg] Danis Ball Other [employer] Other 03-16-2023 15:15-0400 Respiratory rate 12 /min Danis Ball Other [employer] Other 03-16-2023 15:15-0400 Systolic blood pressure 127 mm[Hg] Danis Ball Other [employer] Other 02-27-2023 14:00-0400 Body height 165.1 cm Danis Ball Other [employer] Other 02-27-2023 14:00-0400 Body mass index (BMI) [Ratio] 25.39 kg/m2 Danis Ball Other [employer] Other 02-27-2023 14:00-0400 Body weight 69.22 kg Danis Ball Other [employer] Other 02-27-2023 14:00-0400 Diastolic blood pressure 85 mm[Hg] Danis Ball Other [employer] Other 02-27-2023 14:00-0400 Respiratory rate 12 /min Danis Ball Other [employer] Other 02-27-2023 14:00-0400 Systolic blood pressure 161 mm[Hg] Danis Ball Other [employer] Other 02-05-2023 12:11-0400 Body height 165.1 cm Danis E Ball Work Phone: [facility] 250 DO Work Phone: 02-05-2023 12:11-0400 Body mass index (BMI) [Ratio] 25.46 kg/m2 Danis E Ball Work Phone: [facility] [employer] 250 DO Work Phone: 02-05-2023 12:11-0400 Body surface area Derived from formula 1.77 m2 Danis E Ball Work Phone: [facility] [employer] 250 DO Work Phone: 02-05-2023 12:11-0400 Body weight 69.4 kg Danis E Ball Work Phone: [facility] [employer] 250 DO Work Phone: 02-05-2023 12:11-0400 Diastolic blood pressure 84 mm[Hg] Danis E Ball Work Phone: [facility] [employer] 250 DO Work Phone: 02-05-2023 12:11-0400 Heart rate 60 /min Danis E Ball Work Phone: [facility] [employer] DO Work Phone: 02-05-2023 12:11-0400 Systolic blood pressure 138 mm[Hg] Danis E Ball Work Phone: [facility] [employer] DO Work Phone: 01-27-2023 10:45-0400 Body height 165.1 cm Danis Ball Other [employer] Other 01-27-2023 10:45-0400 Body mass index (BMI) [Ratio] 25.49 kg/m2 Danis Ball Other [employer] Other 01-27-2023 10:45-0400 Body weight 69.49 kg Danis Ball Other [employer] Other 01-27-2023 10:45-0400 Diastolic blood pressure 70 mm[Hg] Danis Ball Other [facility] [employer] Other 01-27-2023 10:45-0400 Respiratory rate 12 /min Danis Ball Other [facility] [employer] Other 01-27-2023 10:45-0400 Systolic blood pressure 103 mm[Hg] Danis Ball Other [facility] [employer] Other 01-16-2023 12:00-0400 Body temperature 97.5 [degF] DO Chaitanya Keister Work Phone: [facility] 01-16-2023 12:00-0400 Diastolic blood pressure 81 mm[Hg] DO Chaitanya Keister Work Phone: [facility] 01-16-2023 12:00-0400 Heart rate 67 /min DO Chaitanya Keister Work Phone: [facility] 01-16-2023 12:00-0400 Respiratory rate 20 /min DO Chaitanya Keister Work Phone: [facility] 01-16-2023 12:00-0400 SaO2% (BldA) [Mass fraction] 97 % DO Chaitanya Keister Work Phone: [facility] 01-16-2023 12:00-0400 Systolic blood pressure 122 mm[Hg] DO Chaitanya Keister Work Phone: [facility] 01-16-2023 04:31-0400 Body weight 73.1 kg DO Chaitanya Keister Work Phone: [facility] 01-15-2023 15:08-0400 45 1 Danis Nowak Ball Work Phone: [facility] 250 DO Work Phone: Comment on above: [id number] 01-15-2023 10:45-0400 Body height 172.72 cm DO Chaitanya Keister Work Phone: [facility] 01-14-2023 15:37-0400 Inhaled oxygen flow rate 2 L/min DO Chaitanya Keister Work Phone: [facility] 01-14-2023 11:00-0400 Inhaled oxygen flow rate 4 L/min DO Chaitanya Keister Work Phone: [facility] 01-14-2023 09:19-0400 Diastolic blood pressure 93 mm[Hg] DO Chaitanya Keister Work Phone: [facility] 01-14-2023 09:19-0400 Heart rate 74 /min DO Chaitanya Keister Work Phone: [facility] 01-14-2023 09:19-0400 SaO2% (BldA) [Mass fraction] 97 % DO Chaitanya Keister Work Phone: [facility] 01-14-2023 09:19-0400 Systolic blood pressure 167 mm[Hg] DO Chaitanya Perkinsister Work Phone: [facility] 01-14-2023 09:15-0400 Body temperature 96.7 [degF] DO Chaitanya Perkinsister Work Phone: [facility] 01-14-2023 09:14-0400 Respiratory rate 20 /min DO Chaitanya Perkinsister Work Phone: [facility] 01-14-2023 09:07-0400 Body height 165.1 cm DO Chaitanya Gregorioister Work Phone: [facility] 01-14-2023 09:07-0400 Body weight 74 kg DO Chaitanya Gregorioister Work Phone: [facility] 09-17-2022 12:00-0500 Body height 165.1 cm Danis Barreto Other [employer] Other 09-17-2022 12:00-0500 Body mass index (BMI) [Ratio] 26.12 kg/m2 Danis Barreto Other [employer] Other 09-17-2022 12:00-0500 Body weight 71.22 kg Danis Ball Other [employer] Other 09-17-2022 12:00-0500 Diastolic blood pressure 82 mm[Hg] Danis Ball Other [employer] Other 09-17-2022 12:00-0500 Respiratory rate 12 /min Danis Ball Other [facility] [employer] Other 09-17-2022 12:00-0500 Systolic blood pressure 136 mm[Hg] Danis Ball Other [facility] [employer] Other 06-04-2022 17:32-0400 Body height 165.1 cm Danis E Ball Work Phone: [facility] [employer] 250 DO Work Phone: 06-04-2022 17:32-0400 Body mass index (BMI) [Ratio] 26.13 kg/m2 Danis E Ball Work Phone: [facility] [employer] 250 DO Work Phone: 06-04-2022 17:32-0400 Body surface area Derived from formula 1.78 m2 Danis E Ball Work Phone: [facility] [employer] 250 DO Work Phone: 06-04-2022 17:32-0400 Body weight 71.22 kg Danis E Ball Work Phone: [facility] [employer] 250 DO Work Phone: 06-04-2022 17:32-0400 Diastolic blood pressure 74 mm[Hg] Danis E Ball Work Phone: [facility] 250 DO Work Phone: 06-04-2022 17:32-0400 Heart rate 72 /min Dains E Ball Work Phone: [facility] DO Work Phone: 06-04-2022 17:32-0400 Systolic blood pressure 137 mm[Hg] Danis Nowak Ball Work Phone: [facility] 250 DO Work Phone: 06-04-2022 15:21-0400 Body height 165.1 cm Danis Nowak Ball Work Phone: [facility] DO Work Phone: 06-04-2022 15:21-0400 Body mass index (BMI) [Ratio] 26.13 kg/m2 Danis Nowak Ball Work Phone: [facility] 250 DO Work Phone: 06-04-2022 15:21-0400 Body surface area Derived from formula 1.78 m2 Danis Nowak Ball Work Phone: [facility] DO Work Phone: 06-04-2022 15:21-0400 Body weight 71.22 kg Danis Nowak Ball Work Phone: [facility] DO Work Phone: 06-04-2022 15:21-0400 Diastolic blood pressure 68 mm[Hg] Danis Nowak Ball Work Phone: [facility] DO Work Phone: 06-04-2022 15:21-0400 Heart rate 72 /min Danis Nowak Ball Work Phone: [facility] DO Work Phone: 06-04-2022 15:21-0400 Systolic blood pressure 144 mm[Hg] Danis Nowak Ball Work Phone: [facility] DO Work Phone: Encounters Encounter Date Encounter Type Care Provider Facility Start: 11-18-2023 End: 11-19-2023 ambulatory Allan Townsend Facility:[facility] Start: 11-18-2023 End: 11-18-2023 Admission to same day surgery center DO Danis Ball Work Phone: [facility] Work Phone: Start: 11-18-2023 End: 11-18-2023 ambulatory DO Danis Ball Work Phone: [facility] Work Phone: Start: 11-16-2023 End: 11-16-2023 ambulatory W Ziyad Townsend Facility:[facility] Start: 11-16-2023 End: 11-16-2023 ambulatory DO Danis Ball Work Phone: [facility] Work Phone: Start: 11-16-2023 End: 11-16-2023 Patient encounter procedure DO Danis Ball Work Phone: [facility] [employer] Work Phone: Start: 11-10-2023 End: 11-11-2023 ambulatory [facility] Start: 11-10-2023 End: 11-10-2023 Subsequent hospital visit by physician Leyla Strauss Admin Room 1 [facility] Comment on above: ASCVD (arteriosclero tic cardiovascular disease); Chest tightness; Shortness of breath Start: 10-27-2023 Telephone encounter Mallory ARREDONDO [facility] Start: 10-27-2023 End: 10-27-2023 ambulatory CELINA LAIO [facility] Start: 10-27-2023 End: 10-27-2023 Office outpatient visit 25 minutes Celina Liao PA Work Phone: [facility] Comment on above: Disorder of sacrum ( Primary Dx) Start: 10-26-2023 End: 10-26-2023 ambulatory MERCEDEZ Dodson [employer]PLING Not Available Start: 10-20-2023 End: 10-20-2023 ambulatory [facility] Work Phone: Start: 10-20-2023 End: 10-20-2023 Patient encounter procedure On License Of [facility] Work Phone: Start: 10-07-2023 End: 10-08-2023 ambulatory MERCEDEZ B APLING Not Available Start: 09-02-2023 End: 09-02-2023 ambulatory YOSELIN Starks SAMMIE Not Available Start: 08-28-2023 End: 08-28-2023 ambulatory JONI BLAKELY Not Available Start: 08-14-2023 End: 08-14-2023 ambulatory Danis Barreto Other [employer] Other Start: 08-14-2023 Office outpatient vi sit 15 minutes Dains Barreto [facility] Start: 08-14-2023 End: 08-14-2023 Patient encounter procedure On License Of [facility] Work Phone: Start: 08-12-2023 End: 08-12-2023 ambulatory MERCEDEZ B APLING Not Available Start: 07-08-2023 End: 07-08-2023 ambulatory MERCEDEZ B APLING Not Available Start: 07-02-2023 End: 07-02-2023 ambulatory Danis Barreto Other [employer] Other Start: 07-02-2023 Patient encounter procedure Danis Barreto [facility] Start: 07-01-2023 End: 07-01-2023 ambulatory Danis Barreto Other [employer] Other Start: 07-01-2023 Telephone encounter Danis Barreto [facility] Start: 06-16-2023 End: 06-16-2023 ambulatory AIDAN SUAZO Not Available Start: 06-15-2023 End: 06-15-2023 ambulatory DARRYL SANTILLAN [facility] Ambulatory Start: 06-15-2023 End: 06-15-2023 Office outpatient visit 25 minutes Darryl Santillan MD Work Phone: [facility] Comment on above: ASCVD (arteriosclero tic cardiovascular disease) (Primary Dx); Essential hypertension; Mixed hyperlipidemia; Congestive heart failure, NYHA class 2 and ACC/AHA stage C (CMS/HCC); History of PTCA Start: 06-10-2023 End: 06-10-2023 ambulatory Danis Barreto Other [employer] Other Start: 06-10-2023 Telephone encounter Danis Barreto [facility] Start: 05-17-2023 End: 05-17-2023 ambulatory Danis Barreto Other [employer] Other Start: 05-17-2023 Telephone encounter Danis Barreto [facility] Start: 05-15-2023 End: 05-15-2023 ambulatory Danis Barreto Other [employer] Other Start: 05-15-2023 Telephone encounter Danis Barreto [facility] Start: 05-14-2023 End: 05-14-2023 ambulatory Danis Barreto Other [employer] Other Start: 05-14-2023 Telephone encounter Danis Barreto [facility] Start: 05-12-2023 End: 05-12-2023 ambulatory Danis Barreto Other [employer] Other Start: 05-12-2023 Telephone encounter Danis Barreto [facility] Start: 03-23-2023 End: 03-23-2023 ambulatory Danis Barreto Other [employer] Other Start: 03-23-2023 Telephone encounter Danis Barreto [facility] Start: 03-19-2023 Rx Renewal Danis E Bal l Work Phone: [facility] 250 DO Work Phone: Start: 03-16-2023 End: 03-16-2023 ambulatory Danis Barreto Other [employer] Other Start: 03-16-2023 Office outpatient vi sit 15 minutes Danis Barreto [facility] Start: 03-12-2023 Chart Update Danis bermudez Work Phone: [facility] 250 DO Work Phone: Start: 03-11-[address] Darryl crawford [facility] Facility:[id number] Start: 02-27-2023 End: 02-27-2023 ambulatory Danis Barreto Other [facility] [employer] Other Start: 02-27-2023 Office outpatient vi sit 15 minutes Danis Barreto [facility] Start: 02-05-2023 Telephone encounter Danis Barreto [facility] Start: 02-05-2023 Office outpatient vi sit 25 minutes Danis Barreto Work Phone: [facility] 250 DO Work Phone: Start: 02-05-2023 End: 02-05-[address] [facility]ryl [facility] [employer] Other Start: 01-27-2023 End: 01-27-2023 ambulatory Danis Barreto Other [facility] [employer] Other Start: 01-27-2023 Transitional care evangelina jorgensenmalgorzata srvc 14 day discharge Danis Barreto [facility] Start: 01-19-2023 End: 01-19-2023 ambulatory Danis Barreto Other [facility] [employer] Other Start: 01-19-2023 Telephone encounter Danis Barreto [facility] Start: 01-16-[address] Danis Barreto Facility:[id number] Start: 01-15-[address] Danis Barreto Facility:[id number] Start: 01-14-2023 End: 01-16-2023 Evaluation and management of inpatient W Ziyad Townsend Facility:[facility] Start: 01-14-2023 End: 01-16-2023 Evaluation and management of inpatient DO Chaitanya Cheryl Work Phone: [facility] Work Phone: Start: 01-14-[address] Danis Barreto Facility:[id number] Start: 01-14-[address] Danis Barreto Facility:[id number] Start: 01-01-2023 End: 01-01-2023 ambulatory Danis Barreto Other [employer] Other Start: 01-01-2023 Telephone encounter Danis SILVERMAN [facility] Start: 12-03-2022 Telephone encounter Danis SILVERMAN [facility] Start: 12-03-2022 End: 12-04-[address] DARRYL SANTILLAN [facility] [employer] Other Start: 09-17-2022 End: 09-17-2022 ambulatory Danis Barreto Other [employer] Other Start: 09-17-2022 Office outpatient vi sit 25 minutes Danis Barreto [facility] Start: 09-16-2022 End: 09-16-2022 ambulatory Danis Barreto Other [employer] Other Start: 09-16-2022 Telephone encounter Danis Barreto HERRERA [facility] Start: 08-25-2022 End: 08-25-2022 ambulatory Danis Barreto Other [employer] Other Start: 08-25-2022 Telephone encounter Danis Barreto HERRERA [facility] Start: 06-30-2022 Adult health examination Ronnell monty [facility] Other [employer] Other Start: 06-30-2022 Gynecological examin ation normal Danis Barreto Other [employer] Other Start: 06-04-2022 Office outpatient vi sit 15 minutes Danis Barreto Work Phone: [facility] 250 DO Work Phone: Start: 06-04-[address] Danis Barreto Facility: Start: 05-21-2022 End: 05-22-[address] EDER LAURENT . Facility:H1 Start: 2022 End: [address] EDER LAURENT . Facility:[facility] Start: 05-05-2022 End: 05-05-2022 Pre-procedure evaluation check Danis Barreto Other [employer] Other Start: 03-11-2017 Ambulatory SULMA BUSBY Facility: [id number] Start: 09-27-2010 End: 09-27-2010 ambulatory Arun Magana Work Phone: Pain Management Comment on above: Patient Education Procedures Date Procedure Procedure Detail Performing Clinician Start: 11-18-2023 DO Danis Barreto Work Phone: Start: 11-18-2023 CL Closure Device Placement 0 DO Danis Barreto Work Phone: Start: 11-18-2023 CL LHC & COR Angio DO Danis Barreto Work Phone: Start: 11-18-2023 CL Stent 1st Vessel LAD GRIFFIN DO Danis Barreto Work Phone: Start: 11-10-2023 NUCLEAR STRESS TEST DARRYL SANTILLAN Start: 11-10-2023 Cv strs tst xers&/or rx cont ecg trcg only Darryl Santillan MD Work Phone: Start: 06-15-2023 History of percutaneous transluminal coronary angioplasty History of PTCA Darryl Santillan MD Work Phone: Start: 01-14-2023 CL Closure Device Placement 0 DO Chaitanya Keister Work Phone: Start: 01-14-2023 CL LHC & COR Angio DO Chaitanya Keister Work Phone: Start: 01-14-2023 CL PCI AMI 1st Vessel CX GRIFFIN DO Chaitanya Keister Work Phone: Start: 01-14-2023 CL PTCA 1st Vessel LAD DO Chaitanya Faria ter Work Phone: Start: 01-14-2023 DO Chaitanya Keister Work Phone: Start: 2022 Screening for malignant neoplasm of breast Danis Barreto Other Start: 08-03-2011 Total colonoscopy Danis Barreto Work Phone: Abdominoplasty Danis morrison Work Phone: Blepharoplasty Danis morrison Work Phone: Cardiac catheterization Apurva Barreto Work Phone: Cataract surgery Danis Barreto Work Phone: Depression screening Harvinder Barreto Other History of percutane ous transluminal coronary angioplasty History of PTCA Danis Barreto Work Phone: History of placement of stent for coronary artery disease History of heart artery stent DO Chaitanya Cheryl Work Phone: Percutaneous translu charisse coronary angioplasty Danis Barreto Work Phone: Total replacement of hip Adan Barreto Work Phone: Plan of Treatment Date Care Activity Detail Author Start: 10-26-2024 Tobacco Screening Tobacco Screening [facility] [facility] Start: 05-21-2024 Screening for osteoporosis Bone Density Scan [facility] Start: 01-16-2024 Echocardiography Echocardiogram [facility] Start: 01-12-2024 End: 01-12-2024 Patient encounter procedure 01/12/2024 9:40 AM EDT Office Visit [facility] [address] [place] [id number] Darryl Santillan MD [address] [place] [address] [facility] Start: 11-19-2023 Hospital admission [facility] Start: 11-18-2023 [facility] Start: 11-16-2023 End: 11-16-2023 Patient encounter procedure 11/16/2023 10:20 AM EDT Office Visit [facility] [address] [place] [address] Darryl Santillan MD [address] [place] [address] [facility] Start: 06-10-2023 FUV, Provider: Darryl Santillan, Status: Pen, Time: 1:40 PM FUV, Provider: Darryl Santillan, Status: Pen, Time: 1:40 PM [facility] 250 DO Work Phone: Start: 05-21-2023 Screening for osteoporosis Bone Density Scan [facility] Start: 04-03-2023 COVID-19 Vaccine () COVID-19 Vaccine () [facility] Start: 03-09-2023 STRESS LIZZIE, Provider: SARI HHVI NUCLEAR 01,[id number], Status: Pen, Time: 2:30 PM STRESS LIZZIE, Provider: SARI [facility]VI NUCLEAR 01,[id number], Status: Pen, Time: 2:30 PM [facility] 250 DO Work Phone: Start: 01-19-2023 Blood chemistry [facility] Start: 01-19-2023 [facility] Start: 01-18-2023 Blood chemistry [facility] Start: 01-18-2023 [facility] Start: 01-17-2023 Blood chemistry [facility] Start: 01-17-2023 [facility] Start: 01-16-2023 Blood chemistry [facility] Start: 01-16-2023 End: 01-16-2023 [facility] Start: 01-15-2023 Blood chemistry [facility] Start: 01-15-2023 [facility] Start: 01-14-2023 [facility] Start: 01-14-2023 Consultation [facility] Start: 01-14-2023 Hospital admission [facility] Start: 01-14-2023 Referral to cardiac rehabilitation program [facility] Start: 01-14-2023 End: 01-14-2023 [facility] Start: 07-01-2022 COVID-19 Vaccine (4 - Pfizer series) COVID-19 Vaccine (4 - Pfizer series) [facility] Start: 06-05-2022 Adult BMI Screening Adult BMI Screening [facility] Start: 04-03-2021 Influenza vaccination INFLUENZA (Season Ended) [facility] Start: 03-26-2014 DIABETES SCREEN DIABETES SCREEN [facility] Start: 2004 ADVANCE DIRECTIVE DISCUSSION ADVANCE DIRECTIVE DISCUSSION [facility] Start: 2004 BONE DENSITY BONE DENSITY [facility] Start: 2004 Fall Risk Screening Fall Risk Screening [facility] Start: 2004 PNEUMOVAX AGE 65 AND OVER WITH 5YR LOOKBACK (#1) PNEUMOVAX AGE 65 AND OVER WITH 5YR LOOKBACK (#1) [facility] Start: 1989 SHINGRIX VACCINE (1 of 2) SHINGRIX VACCINE (1 of 2) [facility] Start: 1961 DTaP/Tdap/Td Vaccines (1 - Tdap) DTaP/Tdap/Td Vaccines (1 - Tdap) [facility] Start: 1958 DTaP,Tdap and Td Vaccines (1 - Tdap) DTaP,Tdap and Td Vaccines (1 - Tdap) [facility] Start: 1958 Urine microalbumin profile DTAP,TDAP,TD (1 - Tdap) [facility] Start: 1951 COVID-19 VACCINE (1) COVID-19 VACCINE (1) [facility] Start: 1951 Depression Screening Depression Screening [facility] Start: 1939 Creatinine measurement Creatinine Level [facility] Start: 1939 Lipid panel Lipid Panel [facility] Start: 1939 Medicare Annual Wellness Visit [facility] Start: 1939 Potassium measurement Potassium Level [facility] Comprehensive metabo lic 2000 panel - Serum or Plasma [facility] Inject si joint arthrgrphy&/anes/steroid w/leeann INJECTION BLOCK SACROILIAC JOINT Disorder of sacrum [facility] Patient Education Coronary Angio plasty (DC) Coronary Stenting (DC) Angina (DC) Chest Pain (DC) Drug Eluting Stents [facility] Work Phone: Patient referral [facility] Work Phone: [facility] Immunizations Immunization Date Immunization Notes Care Provider Marisel woods 05-06-2023 influenza virus vaccine, unspecified formulation [facility] 05-06-2023 influenza, high dose seasonal, preservative-free Danis Barreto Other [facility] [employer] Other 05-06-2022 Fluzone High-Dose Quadrivalent 0.7 ML Intramuscular Suspension Prefilled Syringe Danis E Ball Work Phone: [facility] 250 DO Work Phone: 05-06-2022 Pfizer COVID-19 Vac Bivalent 30 MCG/0.3ML Intramuscular Suspension Danis E Ball Work Phone: [facility] 11-22-2021 Comirnaty 30 MCG/0.3 ML Intramuscular Suspension Dnais E Ball Work Phone: [facility] 05-06-2021 Pfizer-BioNTech COVID-19 Vacc 30 MCG/0.3ML Intramuscular Suspension Danis E Ball Work Phone: [facility] 04-24-2021 Fluzone High-Dose Quadrivalent 0.7 ML Intramuscular Suspension Prefilled Syringe Danis E Ball Work Phone: [facility] 250 DO Work Phone: 09-23-2020 Pfizer-BioNTech COVID-19 Vacc 30 MCG/0.3ML Intramuscular Suspension Danis E Ball Work Phone: [facility] 08-24-2020 Pfizer-BioNTech COVID-19 Vacc 30 MCG/0.3ML Intramuscular Suspension Danis E Ball Work Phone: [facility] 05-04-2020 influenza, high dose seasonal, preservative-free Danis E Ball Work Phone: [facility] 250 DO Work Phone: 04-03-2020 influenza, high dose seasonal, preservative-free Danis E Ball Work Phone: [place] [address] DO Work Phone: 04-29-2019 influenza, high dose seasonal, preservative-free Danis E Ball Work Phone: [place] [address] DO Work Phone: 03-28-2019 zoster vaccine recombinant Danis E Ball Work Phone: [place] [address] DO Work Phone: 04-28-2018 influenza, injectabl e, quadrivalent, preservative free Danis E Ball Work Phone: [place] [address] DO Work Phone: 05-04-2017 influenza, injectabl e, quadrivalent, preservative free Danis E Ball Work Phone: [place] [address] DO Work Phone: 04-15-2011 zoster vaccine, live Benjami n E Ball Work Phone: [place] [address] DO Work Phone: 08-03-2010 pneumococcal polysaccharide vaccine, 23 valent Danis E Mary [place] Work Phone: [facility] 08-03-2004 pneumococcal polysaccharide vaccine, 23 valent Danis E Ball Work Phone: [facility] Payers Date Payer Category Payer Medicare [id number] 2023 Self-pay [id number] 2022 Unknown 2020 Unknown [id number] [id number] 2010 Unknown [employer] [employer] [place] [id number] 2010-2013 Indemnity [id number]. [id number] 2004 Medicare MEDICARE MEDICAR E B [id number] 2004-Present [place] Medicare [id number]. [id number] 1959 Medicare [id number] 1939 Unknown [id number] 2.16.840.1.569785.3.579.2. 593 1939 Unknown [id number] 2.16.840.1.065524.3.579.2. 593 1939 Unknown [id number] 2.16.840.1.189691.3.579.2. 593 1939 Unknown [id number] 2.16.840.1.604207.3.579.2. 356 1939 Unknown [id number] 2.16.840.1.662793.3.579.2. 356 1939 Unknown [id number] 2.16.840.1.818091.3.579.2. 356 1939 Unknown [id number] 2.16.840.1.090187.3.579.2. 356 1939 Unknown [id number] 2.16.840.1.391048.3.579.2. 356 1939 Unknown [id number] 2.16.840.1.230191.3.579.2. 356 1939 Unknown [id number] 2.16.840.1.492330.3.579.2. 356 1939 Unknown [id number] 2.16.840.1.693152.3.579.2. 1068 1939 Unknown [id number] 2.16.840.1.531684.3.579.2. 1259 1939 Unknown [id number] 2.16.840.1.572843.3.579.2. 1259 1939 Unknown [id number] 2.16.840.1.086066.3.579.2. 1259 1939 Unknown [id number] 2.16.840.1.532365.3.579.2. 1259 1939 Unknown [id number] 2.16.840.1.792191.3.579.2. 125 1939 Unknown [id number] 2.16.840.1.276859.3.579.2. 1259 1939 Unknown [id number] 2.16.840.1.324522.3.579.2. 125 1939 Unknown [id number] 2.16.840.1.355466.3.579.2. 125 1939 Unknown [id number] 2.16.840.1.359964.3.579.2. 1286 1939 Unknown [id number] 2.16.840.1.930216.3.579.2. 1246 1939 Unknown [id number] 2.16.840.1.607082.3.579.2. 1246 1939 Unknown [id number] 2.16.840.1.662855.3.579.2. 1246 1939 Unknown [id number] 2.16.840.1.471992.3.579.2. 1246 1939 Unknown [id number] 2.16.840.1.239371.3.579.2. 1246 1939 Unknown [id number] 2.16.840.1.522055.3.579.2. 1244 Medicare [id number] Private Health Insurance [employer] [facility] PFFS M EBRMPCN [id number] Private Health Insurance [facility] [id number] Unknown [id number] Unknown [id number] 2.16.840.1.656500.3.579.2. 531 Unknown [id number] 2.16.840.1.224199.3.579.2. 531 Unknown [id number] 2.16.840.1.208673.3.579.2. 531 Social History Date Type Detail Facility Start: 09-27-2010 End: 11-16-2023 Tobacco smoking status NYIS Never smoker [facility] Start: 09-27-2010 End: 10-27-2023 Alcohol intake Current drinker of alcohol (finding) [facility] Start: 1940 Sex Assigned At Not on file C [facility] Start: 08-21-2020 End: 06-15-2023 Consumes alcohol occasionally Consumes alcohol occasionally [facility] Comment on above: coffee 1-2 cups; Start: 08-21-2020 End: 06-15-2023 Sex Assigned At [facility] Start: 1940 Sex Assigned At Female F [facility] Start: 06-10-2023 End: 06-15-2023 Tobacco use and exposure Smokeless tobacco non-user [facility] Work Phone: Start: 06-15-2023 Alcohol intake Lifetime non-d jeramie (finding) [facility] Work Phone: Start: 06-05-2023 End: 06-15-2023 Exposure to SARS-CoV-2 (event) Unable to assess [facility] Childcare Unknown [facility] Start: 02-17-2019 Alcohol Comment social [facility] Start: 10-31-2023 End: 11-10-2023 Exposure to SARS-CoV-2 (event) Not sure [facility] Medical Equipment Procedure Code Equipment Code Equipment Origin al Text Equipment Identifier Dates Ins Actb 36mm 0d E X3 Trdnt - [id number] Start: 03-25-2011 Head Fem -5mm 36 mm Hip Cocr - [id number] Start: 03-25-2011 Shell Actb 52mm T/H Pros - [id number] Start: 03-25-2011 Stem Fem Acld Tm zf 4.5 Hip - [id number] Start: 03-25-2011 CL STENT ANANDA FRONTIER 2.25 X 22 FDA Start: 01-14-2023 Femoral artery closure plug/patch, synthetic polymer [id number] FDA Start: 01-14-2023 CL STENT ANANDA FRONTIER 2.25 X 22 FDA Start: 01-14-2023 Head Fem 36mm +3 .5mm Vrsy Cocr Hip Rpl 142419 - [id number] - [id number] FDA Start: 06-05-2021 Screw Bn 30mm 6. [address] Actb Rory Trlg Strl Rpl [id number] + [id number] + [id number] - [id number] - [id number], [id number] FDA Start: 06-05-2021 CL STENT ANANDA FRONTIER 2.25 X 22 FDA Start: 01-14-2023 CL STENT ANANDA FRONTIER 2.25 X 22 FDA Start: 01-14-2023 CL STENT ANANDA FRONTIER 2.5 X 15 FDA Start: 11-18-2023 Femoral artery closure plug/patch, synthetic polymer ()[id number] FDA Start: 11-18-2023 Goals Date Patient Goal Desired Activity /State Personal health goal Comment on above: Formatting of this n ote might be different from the original. Evaluation of progress towards goal: Home with [facility] 360. Functional Status Date Assessment Result Facility 11-19-2023 Functional status Patient at Baseline [facility] Work Phone: 01-16-2023 Functional status Patient at Baseline [facility] Work Phone: 01-14-2023 Functional status Patient at Baseline [facility] Work Phone: Mental Status Date Assessment Result Facility 11-19-2023 Cognitive function Cognitive Sta tus Patient at Baseline [facility] Work Phone: 01-16-2023 Cognitive function Cognitive Sta tus Patient at Baseline [facility] Work Phone: 01-14-2023 Cognitive function Cognitive Sta tus Patient at Baseline [facility] Work Phone: Clinical Notes 11-02-1999 to 11-19-2023 Note Date & Type Note Facility 11-19-2023 Progress note Note Date/Time November 19, 2023 11:14am [facility] [address] [place] [address] Cardiology Progress Note Signed Patient: Atiya Jha MR#: [id number] : 1940 Acct:[id number] Age/Sex: 83 / F Adm Date: 4 Loc: Room: [address] [place] [address] Type: REG SDC Attending Dr: Allan Townsend DO Copies to: ~ Date of Service: 11/19/2023 Subjective Principal diagnosis: Status post PCI 1 day Interval history: Patient seen and evaluated and discussed with fourth-year medical student Dr. Dee and I agree with with his evaluation and management and plan. We did discuss patient's anatomy and intervention with her this afternoon, also described diffuse distal LAD and circumflex disease; the potential need for ongoing long-acting nitrates and correction antiplatelet therapy No acute events overnight. Patient is afebrile and hemodynamically stable. Shedenies any chest pain or shortness of breath at this time. Patient did have some postprocedural hemorrhage from the right femoral catheter insertion site. Antiplatelet agents were held and direct pressure was applied until hemostasis. Troponin at 88.9 today. No other labs or imaging. EKG revealed normal sinus rhythm without evidence of ST elevation or ischemia. Patient to be discharged today and follow-up with Dr. Santillan as arranged and eventually follow-up with me in the future Exam Physical Exam Vital Signs: Temp Pulse Resp BP Pulse Ox O2 Del Method 97.5 F L 71 20 132/65 98 Room Air 11/19/23 07:39 11/19/23 07:39 11/19/23 07:39 11/19/23 07:39 11/19/23 07:39 11/19/23 08:00 Const General: cooperative Nutritional Appearance: average body habitus Orientation: alert, awake and oriented x3 HEENT Head: normal to inspection, normocephalic and atraumatic Eyes Conjunctivae: conjunctivae normal Sclera: sclerae normal Chest Chest palpation & inspection: normal inspection of the chest Resp Auscultation: clear to auscultation bilaterally, no rales, no rhonchi and no wheezes Cardio Jugular venous pressure: no JVD Rate: regular rate Rhythm: regular rhythm Heart Sounds: S1 normal, S2 normal, no gallops and murmur (Right upper sternum.)systolic Pulses: radial pulses present and posterior tibial pulses present GI Palpation: soft and no hepatosplenomegaly Auscultation: normal bowel sounds Skin General: no rashes or lesions noted Extrem General: no clubbing, cyanosis or edema Objective Labs Labs: Laboratory Results - last 24 hr 11/19/23 05:06 Troponin I High Sens 88.9 H* A&P - Cardiology (1) ASHD (arteriosclerotic heart disease): Code(s): I25.10 - Atherosclerotic heart disease of [place] coronary artery without angina pectoris (2) Hypertension: Code(s): I10 - Essential (primary) hypertension (3) Coronary artery disease: Code(s): I25.10 - Atherosclerotic heart disease of [place] coronary artery without angina pectoris (4) Unstable angina: Code(s): I20.0 - Unstable angina Plan - Patient is 1 day status post PCI with LAD stenting. She did have some hemorrhage from the right femoral catheter insertion site. Antiplatelet therapywas immediately held and direct pressure to the bleeding site was administered. Hemostasis resumed without sequelae. Discharge planning x 30 minutes today, reviewing prescriptions and updating new prescriptions, reviewing anatomy, discharge arrangement of follow-up Time spent with patient Time Spent With Patient (min): 30 Documented By: Allan Townsend DO 11/19/23 1104 Signed By: <Electronically signed by Allan Townsend DO> 11/19/23 1700 [facility] Work Phone: 1(722) 169-304804-17-2024 [facility] Discharge summary Author Allan Townsend [facility] November 18, 2023 3:36pm Note Date/Time November 18, 2023 3:[address] [facility] [address] [place] [address] Discharge Summary Signed Patient: Atiya Jha MR#: [id number] : 1940 Acct:[id number] Age/Sex: 83 / F Adm Date: 4 Loc: CL Room: Attending Dr: Allan Townsend DO Copies to: DO Allan Dean DO~ Providers Date of Discharge: 11/18/23 Discharging Provider: Allan Townsend Primary Care Provider: Danis Barreto Discharge Diagnosis (1) ASHD (arteriosclerotic heart disease): (2) Hypertension: (3) Coronary artery disease: (4) Unstable angina: (5) Abnormal cardiovascular stress test: Final Diagnosis Final Discharge Diagnosis: 1. Widely patent circumflex stent 2. Ruptured plaque/subtotal lesion proximal LAD (culprit vessel) 3. Moderate left ventricular dysfunction 4. Urgent ad hoc PCI proximal LAD with 2.5 x 15 mm [place] Summary Hospital Course Hospital course: 83-year-old female referred for elective left heart catheterization due to progressive angina, subsequent abnormal stress imaging with anterolateral and apical ischemia; with a history of prior AK with proximal circumflex subacute stent thrombosis within the last year, successfully treated with repeat PCI of the circumflex. At that time the LAD had minimal proximal disease, diffuse distal small vessel disease and preserved left ventricular function Left heart catheterization today revealed new ruptured plaque in the proximal LAD with 95% stenosis (culprit vessel and lesion) with similar mid distal LAD disease, widely patent circumflex stent, moderate left ventricular dysfunction with ejection fraction of 40% Patient underwent ad hoc urgent PCI proximal LAD with 2.5 x 15 mm Ananda She will continue with current therapies including DAPT, follow-up with cardiology in 1 to 2 weeks Condition Condition at Discharge: Stable Status at Discharge Functional status at discharge: independent ambulation Overall status at discharge: patient is back to baseline Time Spent with Patient Time spent providing/coordinating discharge services (# min): 20 Surgeries and Procedures Operation Date: 11/18/23 14:15 Actual Procedures s CL Closure Device Placement 0 - Allan Townsend DO p CL LHC & COR Angio - W Ziyad Townsend DO p CL Stent 1st Vessel LAD GRIFFIN - W Ziyad Townsend DO Complications Complications: None Discharge Plan Discharge Plan Patient Disposition: Home Diet: Low-Cholesterol Additional Instructions: DISCHARGE INSTRUCTIONS FOR ANGIOPLASTY/CORONARY/PERIPHERAL/STENT IMPLANT FOR ADULT ANTICOAGULATION -Since the greatest risk of a blood clot forming with the stent occurs in the first 2-3 weeks after implantation, you will need to take anticoagulants for at least 1 yr ANTICOAGULATION MEDICATION [INSERT MEDICATION NAME: Aspirin 81mg once a day, Ticagrelor (Brilinta) 90mg twice a day] STATIN MEDICATION [INSERT MEDICATION NAME: atorvastatin (Lipitor) 80 mg or rosuvastatin (Crestor) 40mg] [Bare Metal Stent (BMS) duration ] [Drug-Eluting Stent (GRIFFIN) duration] DO NOT discontinue Brilinta/Aspirin during the first few months regardless of what you are advised by your family doctor or pharmacist, without first calling the process safety specialist who implanted the stent. If you require [...] weight lifting, stair steppers, etc. until the process safety specialist approves these activities. Check with the process safety specialist on your first follow-up visit. CALL YOUR STEEL INSPECTOR: -If bleeding should occur from the catheter insertion site- apply pressure to the site then immediately call us. -Report any fever, redness, drainage, increased swelling, or firmness at the catheter insertion site. Some bruising or slight swelling may be present at thetime of discharge. -Should arm or leg become cold, numb, white, or blue, contact the process safety specialist immediately. -IF you should experience episodes of angina, e.g. chest discomfort, heaviness, tightness, pressure burning with or without radiation to the neck, jaw, arms or back- use 1 Nitrostat tablet under your tongue every 5-10 minutes and up to three tablets. IF NO RELIEF, CALL 911 or GO TO THE NEAREST EMERGENCY ROOM. -Please notify our office if you have recurrent angina. The attending process safety specialist or a nurse clinician should provide you with specificinstructions regarding activity, diet, medications, and further follow up for you. Follow the medication instructions provided on your discharge. If the dosages and instructions on this sheet differ from the dosage and instructions on the bottle, follow the instructions on the bottle. [facility] is not responsible for incorrect prescription information provided by thepatient during their visit. Do not stop your medications without consulting your health care provider. Please take the list with you to your next doctor's appointment. Prescriptions: Continued aspirin [Aspir-81] 81 mg Tablet,Delayed Release (Dr/Ec) 81 mg PO DAILY omeprazole magnesium [Prilosec OTC] 20 mg Tablet,Delayed Release (Dr/Ec) 20 mg PO DAILY alendronate 70 mg tablet 70 mg PO QWEEK Patient Comments: TAKE 1 TABLET BY MOUTH ONCE A WEEK ON THURSDAY (30 MINUTES before FIRST food,beverage or medicine OF the day with plain water) Rx Instructions: EVERY THURSDAY docusate sodium 50 mg Capsule 50 mg PO BID atorvastatin 80 mg Tablet 80 mg PO QPM Qty: 30 3RF carvedilol 6.25 mg Tablet 6.25 mg PO BID.WITH.MEALS Qty: 60 3RF nitroglycerin 0.4 mg Tablet, Sublingual 0.4 mg sublingual Q5M PRN (Reason: Chest Pain) Qty: 30 2RF Brilinta 90 mg Tablet 90 mg PO BID Qty: 180 3RF telmisartan-hydrochlorothiazid [Micardis HCT] 80-12.5 mg tablet 1 tab PO DAILY calcium carbonate-vitamin D3 500 mg-5 mcg (200 unit) tablet 1 tab PO DAILY acetaminophen [Tylenol Extra Strength] 500 mg tablet 1,000 mg PO Q6HR PRN (Reason: pain) Follow Up: Darryl Santillan MD [Active Staff] - Danis Barreto DO [Primary Care Provider] - Exam Physical Exam Vital Signs: Temp Pulse Resp BP Pulse Ox O2 Del Method 98.2 F 62 16 134/76 97 Room Air 11/18/23 12:31 11/18/23 12:31 11/18/23 12:31 11/18/23 12:31 11/18/23 12:31 11/18/23 12:31 Diagnostic Studies Completed and Pending Studies Pending studies at discharge: 11/18/23 15:26 CPR cardiac rehab ed Routine ECG 12 lead ECG Stat 11/19/23 05:00 ECG 12 lead ECG IN AM Troponin I High Sensitivity [CHEM] IN AM Documented By: Allan Townsend DO 11/18/23 1530 Signed By: <Electronically signed by Allan Townsend DO> 11/18/23 1536 [facility] Work Phone: 1(722) 991-539204-17-2024 [facility] Miscellaneous Notes* Telephone Encounter - Mallory Cortés CNA - 10/27/2023 10:20 AM EDT Atiya called to inform that her Brilinta is prescribed by Dr Townsend and that she is having surgery with Dr Santillan on November 09 [facility] Telephone encounter Note* Telephone Encounter - Mallory Cortés CNA - 10/27/2023 10:20 AM EDT Atiya called to inform that her Brilinta is prescribed by Dr Townsend and that she is having surgery with Dr Santillan on November 09 [facility]03-26-[facility] History of Present illness Narrative* SHANNAN Morton - 10/27/2023 8:30 AM EDT [facility] [address] [place] [address] Patient: Atiya Jha Sex: female : 1940 Age: 83 y.o. PCP: DANIS BARRETO, DO 10/27/2023 Atiya Jha is here for a(n) follow up. Chief Complaint Patient presents with Back Pain HPI: 03/22/2021 Left SI joint injection w/ 100% relief Back Pain This is a chronic problem. The current episode started more than 1 year ago (years). The problem occurs constantly. The problem has been gradually worsening since onset. The pain is present in the lumbar spine and sacro-iliac (right buttocks and sometimes to left but worse on right). The quality ofthe pain is described as aching and cramping. Radiates to: right leg to toes. The pain is at a severity of 6/10 (5/10 right now sitting, increases to 10/10 with ADLs increased activities). The pain is severe. The pain is The same all the time (worse with activities). Exacerbated by: increased activity and sitting, and driving. Stiffness is present: na Pertinent negatives include no bladder inconti nence, bowel incontinence, chest pain, fever, leg pain, numbness, tingling or weakness (straight cane to OV). Treatments tried: HEP, creams, salonpas w/mild relief, Previous Derek Ischial Bursa w/sig relief. 02/15/21 Left SI inj w/ 85% relief. The treatment provided mild relief. The effect of pain on patient's ADLS: Moderate Impairment. Past Medical History: Diagnosis Date Arthritis CAD (coronary artery disease) cardiac stent x 1 placed in 1999 Cancer ([facility] Moh's basal cell carcinoma Cervical pain Cervicalgia Cough CTS (carpal tunnel syndrome) Cystitis Foot pain GERD (gastroesophageal reflux disease) GERD (gastroesophageal reflux disease) Hip bursitis Hip pain Hyperlipidemia Hyperlipidemia Hypertension Lumbago with sciatica, right side Lumbar pain Lung nodule Menopause Osteoarthritis Shingles Trigger finger UTI (urinary tract infection) Vertigo Visual impairment glasses Vitamin D deficiency Past Surgical History: Procedure Laterality Date BLEPHAROPLASTY BREAST BIOPSY 06/2001 BREAST SURGERY 1999 reduction CARDIAC SURGERY 11/1999 cath x2 CATARACT EXTRACTION 01/2011 COLONOSCOPY N/A 02/06/2020 Performed by Chay Broussard DO at [facility] COSMETIC SURGERY 06/2002 tummy tuck INJECTION BLOCK SACROILIAC JOINT Left 03/22/2021 Performed by Darryl Aragon MD at [facility] INJECTION BLOCK SACROILIAC JOINT Left 02/15/2021 Performed by Darryl Aragon MD at [facility] [place] LARGE JOINT: right hip Right 11/16/2020 Performed by Darryl Aragon MD at [facility] INJECTION LARGE JOINT [place]: bilat ischial bursa Bilateral 05/18/2020 Performed by Darryl Aragon MD at [facility] LARGE JOINT [place]: bilat ischial bursa Bilateral 01/02/2020 Performed by Darryl Aragon MD at [facility] INJECTION LARGE JOINT BURSA: bilat ischial bursa Bilateral 07/22/2019 Performed by Darryl Aragon MD at [facility] LARGE JOINT [place]: right hip Right 07/30/2020 Performed by Darryl Aragon MD at [facility] JOINT REPLACEMENT Left 03/2011 hip LEG SKIN LESION BIOPSY / EXCISION 1998 RELEASE CARPAL TUNNEL Right 07/01/2023 Performed by Aidan Suazo DO at [facility] RELEASE TRIGGER FINGER Left 06/10/2023 Performed by Aidan Suazo DO at [facility] RELEASE TRIGGER FINGER Right 03/02/2019 Performed by Aidan Suazo DO at [facility] REPLACEMENT TOTAL JOINT HIP Right 06/05/2021 Performed by Aidan Suazo DO at [facility] TRIGGER FINGER RELEASE 11/2004 No Known Allergies Family History Problem Relation Age of Onset Anxiety disorder Mother Heart disease Father Heart attack Father Social History Socioeconomic History Marital status: Spouse name: Not on file Number of children: Not on file Years of education: Not on file Highest education level: Not on file Occupational History Not on file Tobacco Use Smoking status: Never Smokeless tobacco: Never Vaping Use Vaping Use: Never used Substance and Sexual Activity Alcohol use: Yes Comment: social Drug use: Never Sexual activity: Defer Partners: Male Other Topics Concern Not on file Social History Narrative Not on file Social Determinants of Health Financial Resource Strain: Not on file Food Insecurity: No Food Insecurity (10/27/2023) Hunger Screening Food Insecurity - Worry: Never True Food Insecurity - Inability: Never True Transportation Needs: Not on file Physical Activity: Not on file Stress: Not on file Social Connections: Not on file Interpersonal Safety: Not on file Housing Instability: Not on file Review of Systems Constitutional: Negative. Negative for chills, fatigue and fever. HENT: Negative. Negative for congestion. Eyes: Negative. Respiratory: Negative. Negative for cough and shortness of breath. Cardiovascular: Negative for chest pain. Pt has been having dizziness lately and is scheduled for cardiovascular stress test in November. Pt understands she cannot have MAC until stress test is resulted. Gastrointestinal: Negative. Negative for bowel incontinence, constipation and diarrhea. Endocrine: Negative. Genitourinary: Negative. Negative for bladder incontinence and difficulty urinating. Musculoskeletal: Positive for back pain. Skin: Negative. Allergic/Immunologic: Negative. Neurological: Negative. Negative for tingling, weakness (straight cane to OV) and numbness. Hematological: Negative. Psychiatric/Behavioral: Negative. Vital Signs: BP 98/53 (BP Site: Right Arm, BP Postition: Sitting) Pulse 76 Resp 20 Physical Exam: GENERAL - Healthy patient that appears stated age. HEENT - Normocephalic / Atraumatic, Extraoccular movements intact, trachea midline, thyroid within normal limits. CV - pulse regular, Warm extremities with appropriate color of nailbeds. RESP - No obvious wheezing, No Shortness of Breath, No overexertion response to exam maneuvers. COORDINATION - remains intact. PSYCH - Alert and Oriented x4, Attentive and appropriate, constitutionally normal, displays normal mood and affect per situation, answered questions appropriately during examination, demonstrated appropriate attention during discussion, demonstrated appropriate cognitive reasoning and understandingof the medical condition by asking appropriate questions regarding the diagnosis and risks/benefits/alternatives of treatment modalities. No obvious deficits in memory, reasoning, or intellect. Lumbar: SKIN - No rashes or bruising in the area of the patient s pain. LYMPH NODES - demonstrate no obvious enlargement. EXTREMITIES - Lower extremities are warm, with minimal edema and palpable pulses. Tenderness to palpation noted in the lumbar spine and paraspinal musculature. Pain is elicited withflexion, extension, and lateral rotation of the lumbar spine. Range of motion is diminished with these motions due to pain. Facet palpation is noted to be somewhat tender and facet loading maneuvers are mildly positive, but not concordant with the patient s normal pain complaints. STRENGTH - noted to be 5 out of 5 all muscle groups bilateral lower extremities including muscles involving hip flexion and abduction, knee flexion and extension, as well as foot dorsiflexion and plantarflexion. No notable atrophy, fasciculations or spasm. SENSORY - No notable sensory deficits in the bilateral lower extremities to touch or pinprick in all dermatomal distributions. Straight Leg Raise is negative. Tenderness to palpation is noted over the Bilateral SacroIliac Joint: Fabere sign (Koko's Test) is significantly positive, as is compression and distraction of the sacroiliac joints, which is consistent with some of the patient's normal pain. Gait is antalgic and assisted with ambulatory aid(s): Cane. Assessment/Treatment Plan: Atiya was seen today for back pain. Diagnoses and all orders for this visit: Disorder of sacrum - Case request operating room: INJECTION BLOCK SACROILIAC JOINT Bilateral Sacroiliac Joint Injection - under fluoroscopy with the use of contrast dye (unless contraindicated) It is hopeful that the described procedure will provide symptomatic pain relief. It is felt to be medically necessary noting that the patient has tried and failed more conservative modalities of therapy and this is the next most appropriate step. The procedure was described in detail to the patientas well as the potential benefits of pain reduction alongside risks of the procedure and alternatives. Risks were described as including, but not limited to bleeding, infection, nerve damage, spinal cord injury, paralysis, stroke, dural puncture headache, and medication reaction. The patient expressed understanding regarding the risks and benefits and wishes to proceed. Diagnostic SI injections should provide information to confirm that the noted SI Joint arthropathy is the patient s most significant pain generator. If this provides significant but only temporary pain relief, the patient may in the future be a candidate for radiofrequency denervation of the SI joint to provide pain relief for approximately 1 year. Follow up 2 weeks after procedure The medications prescribed have been reviewed for medication interactions/contraindications and/or for upcoming procedures: continue current medication regimen without any changes. DISCUSSION: Treatment options discussed with patient and all questions answered to patient's satisfaction. Discussed the rules and regulations surrounding prescription of opioids and compliance at length. Failure to follow the rules and regulation will result in tapering and discontinuation of medications if applicable. Prescribed medication that requires intensive monitoring for toxicity We do not currently prescribeany controlled substance from this practice. Treatment plans discussed but not opted for at this time: Updated Lumbar MRI. Patient would like to proceed with the current outlined treatment plan before moving forward with any other options. The spine model was demonstrated and MRI was reviewed and used to explain the condition. Chronic conditions not treated during this visit that affected my overall medical decision making: Comorbidity- Anticoagulation therapy The patient is currently being treated with an anticoagulant. For this reason, we will need to confer with the patients other physicians to determine if it is safe to discontinue this therapy for anyplanned procedure. If it is determined that discontinuation would be a significant risk, we will have to weigh the potential benefits to the procedure. It may be necessary to delay or defer the procedure altogether. However, if the patient feels the potential benefit outweighs the risk and is willing to assume the responsibility, we may elect to proceed while anticoagulated despite the increased risks of bleeding, hematoma formation, and possible paralysis. Comorbidity- Coronary Artery disease The patient has a known history of heart disease and is currently under medical management for thiscondition. This must be considered due to the possible need for a pre-anesthetic medical evaluationprior to a procedure as well as the relative contraindication of the use of NSAID therapy detailed in recent literature. This approach was discussed with the patient along with the risks and benefitsand the patient requests to proceed with this treatment plan. OARRS: Reviewed. Scribe Statement: Scribed for and in the presence of SHANNAN MORTON by Afua Irwin CNA. Provider Statement: I, SHANNAN MORTON, personally performed the services described in the documentation, as scribed by Afua Irwin CNA in my presence, and it is both accurate and complete. Afua Irwin CNA 10/27/23 0954 SHANNAN Morton 10/27/23 1215 documented in this encounterFirelands Regional Medical CenterYkone [id number] Instructions* Patient Instructions* Afua Irwin CNA - 10/27/2023 8:30 AM EDT Facet Injection / Medial Branch Block (MBB) / Sacroiliac (SI) Joint Injection A facet injection and sacroiliac joint injection are injections of local anesthetic and steroid into a joint in the spine. A medial branch block is similar, but the medication is placed outside the joint space near the nerve that supplies the joint called the medial branch (steroid may or may not be used). You may require multiple injections depending upon how many joints are involved. How Long Will This Procedure Last? The extent and duration of pain relief may depend on the amount of inflammation and how many areas are involved. Other coexisting factors may be responsible for your pain. If your pain goes away for a short time, but then returns, you may be a candidate for radiofrequency ablation (RFA). Activity Be active. Attempt activities and movements that typically cause pain to see if it feels better while doing them. We will give you a pain diary. Please fill this out as directed by your nurse in pre-op. This will help your doctor determine the effectiveness of the injection, and how to proceed. Bring the pain diary with you to your follow-up appointment. Medications You should not take your pain medications for 4-6 hours before or after the injection in order to properly diagnose if the injection provides adequate relief. Resume your routine medications after your procedure. You may resume blood thinners per your regular schedule after the procedure. If you received sedation: If you received sedation for your procedure, you may feel sleepy or not yourself for several hours today. For the next 24 hours avoid activities that requires alertness or coordination. This includes: Driving or operating heavy machinery Using power tools Consuming alcohol Do not make important or complex decisions or sign legal documents in the next 24 hours. Other Instructions: If you feel severe pain at the injection site with swelling and redness, increased leg weakness, a fever of 101 or higher, headache (or worsening headache), changes in vision or urinary retention: Please call the office at , or have someone take you to the nearest emergency room. Tellthe emergency room staff that you recently had a spine injection. A doctor must evaluate you for bleeding and injection complications. If you lose control over bowel, bladder, or legs: Go to the nearest emergency room. documented in this encounterFirelands Regional Medical CenterYkone [id number] Evaluation note* Encounter Date Diagnosis Assessment Notes Treatment Notes Treatment Clinical Notes Aug, Acute right-sided low back pain without sciatica (ICD-10 - M54.50) ROM exercises, heat/ice and Lidocaine patch. Voltaren Gel. XR thoracic/lumbar spine to r/o compression fx Doubt renal in etiology but may need to check UA and US Aug, Age-related osteoporosis without current pathological fracture (ICD-10 - M81.0) Continue Ca and Vit D supplements. Weight bearing exercises Aug, Primary hypertension (ICD-10 - I10) [employer] Other 01-12-2024 History general Narrative - Reported* Type Description [...] 06/22 23 Surgical History CTR right 06/2023 Surgical History right ZOË 06/2021 Hospitalization History See past surgical hx [employer] Other 01-05-2024 History general Narrative - Reported* Type Description [...] 06/2023 Hospitalization History See past surgical hx [employer] Other 12-01-2023 History general Narrative - Reported* [...] 06/2023 Hospitalization History See past surgical hx [employer] Other 11-30-2023 Evaluation note* Encounter Date Diagnosis [...] or drinking prior to bedtime. Weight loss. [employer] Other [id number] History of Present illness Narrative* Daryrl Santillan MD - 06/15/2023 9:10 AM EST Subjective Atiya Jha is a 83 y.o. female Chief Complaint Annual Exam HPI Had STEMI in January Patient returns for follow-up of problems as noted. She is done well. In January she had an ST segmentelevation [place] and had immediate transport from home to the [facility] where she underwent emergent intervention and had [...] prompted by classic symptomatology. documented in this [facility] Work Phone: 1(604) 597-402611-13-2023 Instructions* Patient Instructions* Kaiden Bonilla MA - [...] time of your visit. documented [facility]Brown [facility] Work Phone: 1(873) 480-791111-08-2023 History general Narrative - Reported* Type Description [...] 023 Hospitalization History See past surgical hx [employer] Other 10-15-2023 Evaluation note* Encounter Date Diagnosis Assessment Notes Treatment Notes Treatment Clinical Notes May, Elevated cholesterol (ICD-10 - E78.00) [employer] Other 10-15-2023 History general Narrative - Reported* [...] 01/2023 Hospitalization History See past surgical hx [employer] Other 10-13-2023 History general Narrative - Reported* [...] 01/2023 Hospitalization History See past surgical hx [employer] Other 10-12-2023 Evaluation note* Encounter Date Diagnosis Assessment Notes Treatment Notes Treatment Clinical Notes May, Elevated cholesterol (ICD-10 - E78.00) [employer] Other 10-12-2023 History general Narrative - Reported* [...] 01/2023 Hospitalization History See past surgical hx [employer] Other 10-10-2023 History general Narrative - Reported* [...] 01/2023 Hospitalization History See past surgical hx [employer] Other 08-21-2023 Evaluation note* Encounter Date Diagnosis Assessment Notes Treatment Notes Treatment Clinical Notes Mar, Primary hypertension (ICD-10 - I10) [employer] Other 08-14-2023 Evaluation note* Encounter Date Diagnosis Assessment Notes Treatment Notes Treatment Clinical Notes Mar, Urticaria (ICD-10 - L50.9) Dove soap Cool compresses Initiate Hydroxyzine at [facility] q am Mar, ASHD (arteriosclerotic heart disease) (ICD-10 - I25.10) Echo: LVEF 40-45%, RVSP 45, - 01/2022 [facility]: LVEF 35% - 01/2022 This patient is stable without activity related CP, dyspnea or lightheadedness. They are instructed to continue exercise and AHA diet plan. Discussed new medications as possible culprits but instructed not to stop. [employer] Other 07-28-2023 Evaluation note* Encounter Date Diagnosis [...] bleeding If dizziness recurs, would check H/H [employer] Other 07-06-2023 Evaluation note* Encounter Date Diagnosis Assessment Notes Treatment Notes Treatment Clinical Notes Jan, ASHD (arteriosclerotic heart disease) (ICD-10 - I25.10) Echo: LVEF 40-45%, RVSP 45, - 01/2022 [facility]: LVEF 35% - 01/2022 [employer] Other 06-27-2023 Evaluation note* Encounter Date Diagnosis [...] now. No obvious bleeding at this time. [employer] Other 06-27-2023 History general Narrative - Reported* [...] 01/2023 Hospitalization History See past surgical hx [employer] Other 06-20-2023 History general Narrative - Reported* [...] 01/2023 Hospitalization History See past surgical hx [employer] Other 06-16-2023 Discharge summary Author Allan Townsedn [facility] January 16, 2023 12:09pm Note Date/Time January 16, 2023 12:[address] [facility] [address] [place] [address] Discharge Summary Signed Patient: Atiya Jha MR#: [id number] : 1940 Acct:[id number] Age/Sex: 82 / F Adm Date: 3 Loc: Room: [address] [place] [address]: Allan Townsend DO Copies to: DO Allan Dean DO~ Providers Date of Discharge: 01/16/23 Discharging Provider: Allan Townsend Primary Care Provider: Danis Barreto Consults: 01/14/23 10:36 Consult to Pulmonology Routine [...] circumflex with 2.25 x 22 mm drug-eluting [place] stent and balloon angioplasty of the distal [...] PCI AMI 1st Vessel CX GRIFFIN - Allan Townsend DO p CL PTCA 1st Vessel LAD - Allan Townsend DO p CL Closure Device Placement 0 - Allan Townsend DO p CL LHC & COR Angio - Allan Townsend DO Complications Complications: None Diagnostic Studies Completed [...] % (Auto) 54.3, Lymph % (Auto) 28.0, Gila % (Auto) 12.0, Eos % (Auto) 5.1, Baso % (Auto) 0.6, Nucleat RBC Rel Count 0.2, Neut # (Auto) 2.8, Lymph # (Auto) 1.4, Gila # (Auto) 0.6, Eos # (Auto) 0.3, [...] doctor or pharmacist, without first calling the process safety specialist who implanted the stent. If you require [...] weight lifting, stair steppers, etc. until the process safety specialist approves these activities. Check with the process safety specialist on your first follow-up visit. CALL YOUR PHYSICIAN at [phone]: -If bleeding should occur from the catheter insertion site- apply pressure to the site then immediately call us. -Report any fever, redness, drainage, increased swelling, or firmness at the catheter insertion site. Some bruising or slight swelling may be present at thetime of discharge. -Should arm or leg become cold, numb, white, or blue, contact the process safety specialist immediately. -IF you should experience episodes of [...] is recommended. Please call Central Scheduling at [phone] to schedule your appointment.] The attending process safety specialist or [facility] nurse clinician should provide you with specific instructions regarding activity, diet, medications, and further follow up for you. Follow the medication instructions provided on your discharge. If the dosages and instructions on this sheet differ from the dosage and instructions on the bottle, follow the instructions on the bottle. [facility] is not responsible for incorrect prescription information [...] 25 mg PO HS Follow Up: Allan Townsend DO [Active Staff - D.O.] - Porfirio Vu MD [Referring] - 3-5 Days Documented By: Allan Townsend DO 01/16/231202 Signed By: <Electronically signed by Allan Townsend DO> 01/16/23 1209 [facility] Work Phone: 1(747) 403-444806-15-2023 Progress note Author Allan Townsend [facility] January 15, 2023 3:40pm Note Date/Time January 15, 2023 3:[address] [facility] [address] [place] [address] Cardiology Progress Note Signed Patient: Atiya Jha MR#: [id number] : 1940 Acct:[id number] Age/Sex: 82 / F Adm Date: 3 Loc: Room: [address] [place] [address] Type: ADM IN Attending Dr: Allan Townsend DO Copies to: ~ Date of Service: [...] stable she remains on appropriate GDMT post AK at this time. Plan: We will continue current therapies, increased ambulation, consider discharge in 24 to 48 hours Exam Physical Exam Vital Signs: Temp Pulse Resp BP Pulse Ox O2 Del Method O2 Flow Rate 98.4 F 78 22 121/59 L 95 Room Air 2 01/15/23 08:00 01/15/23 10:00 01/15/23 10:00 01/15/23 10:00 01/15/23 08:00 01/15/23 10:00 [...] MPV Neut % (Auto) Lymph % (Auto) Gila % (Auto) Eos % (Auto) Baso % (Auto) Nucleat RBC Rel Count Neut # (Auto) Lymph # (Auto) Gila # (Auto) Eos # (Auto) Baso # (Auto) PHA Creatinine Clear Sodium Potassium Chloride Carbon Dioxide Anion Gap BUN Creatinine Est GFR (CKD-EPI) Glucose POC Glucose 112 Calcium Troponin I High Sens 79719.8 H* 81711.6 H* 01/14/23 01/15/23 01/15/23 22:13 03:54 03:54 Corrected WBC 6.9 Uncorrected WBC Count 6.9 RBC 3.65 Hgb 11.6 L Hct 33.2 L MCV 91.0 MCH 31.8 MCHC 34.9 RDW 13.7 Plt Count 160 MPV 7.8 Neut % (Auto) 68.3 Lymph % (Auto) 19.7 Gila % (Auto) 8.9 Eos % (Auto) 2.7 Baso % (Auto) 0.4 Nucleat RBC Rel Count 0.1 Neut # (Auto) 4.7 Lymph # (Auto) 1.4 Gila # (Auto) 0.6 Eos # (Auto) 0.2 Baso # (Auto) 0.0 PHA Creatinine Clear 53.75 Sodium 137 Potassium 3.8 Chloride 105 Carbon Dioxide 24.1 Anion Gap 11.7 BUN 14 Creatinine 0.80 Est GFR (CKD-EPI) > 60.0 Glucose 97 POC Glucose Calcium 8.6 Troponin I High Sens 39760.5 H* 01/15/23 01/15/23 03:54 08:42 Corrected WBC Uncorrected WBC Count RBC Hgb Hct MCV MCH MCHC RDW Plt Count MPV Neut % (Auto) Lymph % (Auto) Gila % (Auto) Eos % (Auto) Baso % (Auto) Nucleat RBC Rel Count Neut # (Auto) Lymph # (Auto) Gila # (Auto) Eos # (Auto) Baso # (Auto) PHA Creatinine Clear Sodium Potassium Chloride Carbon Dioxide Anion Gap BUN Creatinine Est GFR (CKD-EPI) Glucose POC Glucose 108 Calcium Troponin I High Sens 12516.5 H* A&P - Cardiology (1) ST elevation [...] (primary) hypertension Status: Acute Documented By: Allan Townsend DO 01/15/23 1537 Signed By: <Electronically signed by Allan Townsend DO> 01/15/23 1540 [facility] Work Phone: 1(695) 156-772006-14-2023 [facility] note [facility] History and physical note Author Allan Townsend [facility] January 14, 2023 10:41am Note Date/Time January 14, 2023 10:[address] [facility] [address] [place] [address] Cardiology H&P Signed Patient: Atiya Jha MR#: [id number] : 1940 Acct:[id number] Age/Sex: 82 / F Adm Date: 3 Loc: Room: Type: [facility] Attending Dr: Allan Townsend DO Copies to: MD Allan Dorado, ~ Date of Service: 01/14/2023 Cardiology HPI History of Present Illness Chief complaint: Anterolateral STEMI HPI: Ms. Jha is a 82 year old female admitted through the emergency room in transfer from [facility] at 0905 with anterolateral STEMI. Symptoms began earlier this morning, patient was transported by squad, prearrival ECGs were reviewed by myself via telephonic communication and communication with ER attending. Patient arrived at [facility] at 0923, having received up stream antiplatelet and antithrombotic and nitrate therapy; underwent PCI of infarct vessel at 0937. The door to device time was 32 minutes. Past medical history is noted for ASHD with very remote PCI of the [place], hypertension, hyperlipidemia. Current primary care physician is Dr. Danis Barreto. She has not received any cardiology follow-up for a number of years per her family's report. Patient arrives to the [facility] hypertensive, in sinus rhythm without arrhythmias, ongoing chest discomfort, no evidence of cardiogenic shock Cath and intervention ensued without complications Total 60 minutes of nonprocedural critical care time were devoted to the ER staff, [employer] [facility] staff, nursing staff, patient and family both [...] History (Updated 01/14/23 @ 10:41 by Allan Townsend DO) High cholesterol Hypertension Social History Smoking [...] x10E3/uL Lymph # (Auto) 2.1 (1.00-4.8) x10E3/uL Gila # (Auto) 0.5 (0.0-0.8) x10E3/uL Eos # [...] Interpretations EKG EKG results cardiology: sinus rhythm AK, pacemaker, normal Myocardial infarction: anterior AK (acute or recent) and lateral AK (acute or recent) A&P - Cardiology (1) ST elevation (STEMI) myocardial infarction: Code(s): I21.3 - ST elevation (STEMI) myocardial infarction of unspecified site (2) History of heart artery stent: Code(s): Z95.5 - Presence of coronary angioplasty implant and graft (3) High cholesterol: Code(s): E78.00 - Pure hypercholesterolemia, unspecified (4) Hypertension: Code(s): I10 - Essential (primary) hypertension Documented By: Allan Townsend DO 01/14/23 1033 Signed By: <Electronically signed by Allan Townsend DO> 01/14/23 1041 [facility] Work Phone: 1(588) 969-674306-14-2023 History and physical note Author Allan Townsend [facility] January 14, 2023 10:41am Note Date/Time January 14, 2023 10:[address] [facility] [address] [place] [address] Cardiology H&P Signed Patient: Atiya Jha MR#: [id number] : 1940 Acct:[id number] Age/Sex: 82 / F Adm Date: 3 Loc: Room: Type: [facility] Attending Dr: Allan Townsend DO Copies to: MD Allan Dorado DO~ Date of Service: 01/14/2023 Cardiology HPI History of Present Illness Chief complaint: Anterolateral STEMI HPI: Ms. Jha is a 82 year old female admitted through the emergency room in transfer from [facility] at 0905 with anterolateral STEMI. Symptoms began earlier this morning, patient was transported by squad, prearrival ECGs were reviewed by myself via telephonic communication and communication with ER attending. Patient arrived at [facility] at 0923, having received up stream antiplatelet and antithrombotic and nitrate therapy; underwent PCI of infarct vessel at 0937. The door to device time was 32 minutes. Past medical history is noted for ASHD with very remote PCI of the [place]flex [place], hypertension, hyperlipidemia. Current primary care physician is Dr. Danis Barreto. She has not received any cardiology follow-up for a number of years per her family's report. Patient arrives to the [facility] hypertensive, in sinus rhythm without arrhythmias, ongoing chest discomfort, no evidence of cardiogenic shock Cath and intervention ensued without complications Total 60 minutes of nonprocedural critical care time were devoted to the ER staff, [employer] [facility] staff, nursing staff, patient and family both [...] History (Updated 01/14/23 @ 10:41 by Allan Townsend DO) High cholesterol Hypertension Social History Smoking [...] x10E3/uL Lymph # (Auto) 2.1 (1.00-4.8) x10E3/uL Gila # (Auto) 0.5 (0.0-0.8) x10E3/uL Eos # [...] Interpretations EKG EKG results cardiology: sinus rhythm AK, pacemaker, normal Myocardial infarction: anterior AK (acute or recent) and lateral AK (acute or recent) A&P - Cardiology (1) ST elevation (STEMI) myocardial infarction: Code(s): I21.3 - ST elevation (STEMI) myocardial infarction of unspecified site (2) History of heart artery stent: Code(s): Z95.5 - Presence of coronary angioplasty implant and graft (3) High cholesterol: Code(s): E78.00 - Pure hypercholesterolemia, unspecified (4) Hypertension: Code(s): I10 - Essential (primary) hypertension Documented By: Allan Townsend DO 01/14/23 1033 Signed By: <Electronically signed by Allan Townsend DO> 01/14/23 1041 [facility] Work Phone: [phone]) 381-359606-01-2023 Evaluation note* Encounter Date Diagnosis Assessment Notes Treatment Notes Treatment Clinical Notes Jan, Elevated cholesterol (ICD-10 - E78.00) [employer] Other 05-03-2023 Evaluation note* Encounter Date Diagnosis Assessment Notes Treatment Notes Treatment Clinical Notes December, Stage 3a chronic kidney disease (ICD-10 - N18.31) [employer] Other 02-15-2023 Evaluation note* Encounter Date Diagnosis [...] appetite, weight, abdominal pain/cramping or rectal bleeding. [employer] Other 02-14-2023 Evaluation note* Encounter Date Diagnosis Assessment Notes Treatment Notes Treatment Clinical Notes Sep, Elevated cholesterol (ICD-10 - E78.00) [employer] Other 02-25-2011 Nurse Note* 09/27/2010 12:00 PM EST >> MONICA ALVARADO LPN Fri Sep 27, 2010 2:49 PM [...] REFERRAL (RECOMMENDATION): None Electronically Signed By Monica Alvarado Lpn In Department: PAIN [facility]NAG[facility] general Narrative - Reported* Type Description Date Medical History HTN Medical History Hypercholesterolemia Surgical History Heart Catheterization/Stents pl aced 11/1999 Surgical History Breast Reduction 1999 Surgical History Abdominoplasty 2001 Surgical History Trigger finger, left 2005 Surgical History Cataracts, bilateral 2010 Surgical History Left hip replacement 03/2011 Surgical History Eyelids lifted Hospitalization History See past surgical hx [employer] Other 04-01-2000 History general Narrative - Reported* [...] lifted Hospitalization History See past surgical hx [employer] Other 04-01-2000 History general Narrative - Reported* [...] 01/2023 Hospitalization History See past surgical hx [employer] Other 04-01-2000 History general Narrative - Reported* [...] 06/2023 Hospitalization History See past surgical hx [employer] Other Evaluation noteNo InformationNortISC8 Other Evaluation note* Diagnosis Onset Date Resolution Status High cholesterol acute History of heart artery stent acute Hypertension acute ST elevation (STEMI) myocardial infarction [facility] Work Phone: Evaluation note* Diagnosis ASCVD (arteriosclerotic cardiovascular disease)- Primary Unspecified cardiovascular disease Essential hypertension Unspecified essential hypertension Mixed hyperlipidemia Congestive heart failure, NYHA class 2 and ACC/AHA stage C ([facility] History of PTCA Postsurgical percutaneous transluminal coronary angioplasty status documented in this encounter [facility] Work Phone: Evaluation note* Diagnosis Onset Date Resolution Status Anemia acute Fatigue acute Lumbar spondylosis acute Nausea acute Primary hypertension acute [facility] Work Phone: Evaluation note* Diagnosis Disorder of sacrum- Primary Disorders of sacrum documented in this encounter [facility]* Diagnosis ASCVD (arteriosclerotic cardiovascular disease) Unspecified cardiovascular disease Chest tightness Other chest pain Shortness of breath documented in this encounter [facility] Work Phone: Evaluation note* Diagnosis ASCVD (arteriosclerotic cardiovascular disease) Unspecified cardiovascular disease Chest tightness Other chest pain Shortness of breath documented in this encounter [facility] Work Phone: Evaluation note* Diagnosis Onset Date Resolution Status Anemia acute ASHD (arteriosclerotic heart disease) acute Fatigue acute Lumbar spondylosis acute Nausea acute Primary hypertension acute [facility] Work Phone: Evaluation note* Diagnosis Onset Date Resolution Status Anemia acute ASHD (arteriosclerotic heart disease) acute Lumbar spondylosis acute Primary hypertension acute ASHD (arteriosclerotic heart disease) acute Coronary artery disease acut e Hypertension acute Unstable angina acute [facility] Work Phone: History of Present illness NarrativePatient [...] a modest diet and weight loss were advocated.-[facility] DO Work Phone: Hospital Discharge [...] doctor or pharmacist, without first calling the process safety specialist who implanted the stent. If you require [...] weight lifting, stair steppers, etc. until the process safety specialist approves these activities. Check with the process safety specialist on your first follow-up visit. CALL YOUR PHYSICIAN at [phone]: -If bleeding should occur from the catheter insertion site- apply pressure to the site then immediately call us. -Report any fever, redness, drainage, increased swelling, or firmness at the catheter insertion site. Some bruising or slight swelling may be present at the time of discharge. -Should arm or leg become cold, numb, white, or blue, contact the process safety specialist immediately. -IF you should experience episodes of [...] is recommended. Please call Central Scheduling at [phone] to schedule your appointment.] The attending process safety specialist or [facility] nurse clinician should provide you with specific instructions regarding activity, diet, medications, and further follow up for you. Follow the medication instructions provided on your discharge. If the dosages and instructions on this sheet differ from the dosage and instructions on the bottle, follow the instructions on the bottle. [facility] is not responsible for incorrect prescription information provided by the patient during their visit. Do not stop your medications without consulting your health care provider. Please take the list with you to your next doctor's appointment.[facility] Work Phone: Hospital Discharge instructions Additional Instructions DISCHARGE INSTRUCTIONS FOR ANGIOPLASTY/CORONARY/PERIPHERAL/STENT IMPLANT FOR ADULT ANTICOAGULATION -Since the greatest risk of a blood clot forming with the stent occurs in the first 2-3 weeks after implantation, you will need to take anticoagulants for at least 1 yr ANTICOAGULATION MEDICATION Aspirin 81mg once a day, Ticagrelor (Brilinta) 90mg twice a day STATIN MEDICATION Atorvastatin (Lipitor) 80 mg Drug-Eluting Stent (GRIFFIN) DO NOT discontinue Brilinta/Aspirin during the first few months regardless of what you are advised by your family doctor or pharmacist, without first calling the process safety specialist who implanted the stent. If you require [...] weight lifting, stair steppers, etc. until the process safety specialist approves these activities. Check with the process safety specialist on your first follow-up visit. CALL YOUR STEEL INSPECTOR: -If bleeding should occur from the catheter insertion site- apply pressure to the site then immediately call us. -Report any fever, redness, drainage, increased swelling, or firmness at the catheter insertion site. Some bruising or slight swelling may be present at the time of discharge. -Should arm or leg become cold, numb, white, or blue, contact the process safety specialist immediately. -IF you should experience episodes of angina, e.g. chest discomfort, heaviness, tightness, pressure burning with or without radiation to the neck, jaw, arms or back- use 1 Nitrostat tablet under your tongue every 5-10 minutes and up to three tablets. IF NO RELIEF, CALL 911 or GO TO THE NEAREST EMERGENCY ROOM. -Please notify our office if you have recurrent angina. The attending process safety specialist or a nurse clinician should provide you with specific instructions regarding activity, diet, medications, and further follow up for you. Follow the medication instructions provided on your discharge. If the dosages and instructions on this sheet differ from the dosage and instructions on the bottle, follow the instructions on the bottle. [facility] is not responsible for incorrect prescription information provided by the patient during their visit. Do not stop your medications without consulting your health care provider. Please take the list with you to your next doctor's appointment.[facility] Work Phone: InstructionsNot on filedocumented in this encounter [facility] Consultation (Routine) - Authorized Specialty Diagnoses / Procedures Referred By Griffin t Referred To Contact Cardiology Diagnoses ASCVD (arteriosclerotic cardiovascular disease) Procedures Follow Up In Cardiology Darryl Santillan MD [address] [address], [address] [address] Darryl Santillan MD [address] [facility], [address] [address] Referral ID Status Reason Start Date Expiration Date V isits Requested Visits Authorized [id number] Authorized 06/15/2023 06/14/2024 1 1 [facility] Work Phone: Summary Purpose Family History No [...] infarction Unknown father Myocardial infarction Unknown Unknown Heart disease Unknown Not Specified Unknown Relationship Condition Age at Onset Recorded Date/T seble sister Myocardial infarction Unknown father Heart disease Unknown Myocardial infarction Unknown Unknown Congestive heart failure Unknown Hypertension Unknown Not Specified Unknown Advance Directives No Advanced Directives Records FoundDocuments on File Type Date Recorded Patient Tankman Expl anation Advance Directive(s) Advance Directive Response Recorded Date/ Time Advance Directives No 2017 6:23pm Documents on File Type Date Recorded Patient Tankman Expl anation Living Will 06/05/2021 7:19 AM Latest Code Status on File Code Status Date Activated Date Inactivated Comments Full Code 06/05/2021 12:15 PM 06/08/2021 6:27 PM Documents on File Type Date Recorded Patient Tankman Expl anation Living Will 06/05/2021 7:19 AM Latest Code Status on File Code Status Date Activated Date Inactivated Comments Full Code 06/05/2021 12:15 PM 06/08/2021 6:27 PM Chief Complaint ATIYA JHA is being seen [...] to 6 weeks, follow-up again with Dr. Santillan in 4 months for further adjudication in regards to advancing therapies and/or need for AICD Chief Complaint and Reason for Visit Chief Complaint stemi Reason for Visit High cholesterol History of heart artery stent Hypertension ST elevation (STEMI) myocardial infarction Chief Complaint Pain Right Side Not Feeling Right Reason for Visit Anemia Fatigue Lumbar spondylosis Nausea Primary hypertension Chief Complaint Not Feeling Right Abnormal Stress Test History of PTCA AFCVD Reason for Visit Anemia ASHD (arteriosclerotic heart disease) Fatigue Lumbar spondylosis Nausea Primary hypertension Chief Complaint Not Feeling Right Abnormal Stress Test History of PTCA AFCVD Abnormal Stress Test History of PTCA AFCVD Reason for Visit Anemia ASHD (arteriosclerotic heart disease) Lumbar spondylosis Primary hypertension ASHD (arteriosclerotic heart disease) Coronary artery disease Hypertension Unstable angina Reason for Referral Specialty Diagnoses / Procedures Referred By Griffin t Referred To Contact Radiology Diagnoses ASCVD (arteriosclerotic cardiovascular disease) Chest tightness Shortness of breath Procedures Nuclear Stress Test CHG MYOCARDIAL SPECT MULTIPLE STUDIES Darryl Santillan MD [address] [facility], [address] [place] [address] Referral ID Status Reason Start Date Expiration Date V isits Requested Visits Authorized [id number] Authorized 10/23/2023 10/22/2024 5 5 Specialty Diagnoses / Procedures Referred By Contac t Referred To Contact Diagnoses Disorder of sacrum Procedures Case request operating room: INJECTION BLOCK SACROILIAC JOINT Celina Liao, SHANNAN [address] [place] [address] Referral ID Status Reason Start Date Expiration Date V isits Requested Visits Authorized [id number] Pending Review 10/27/2023 10/26/2024 1 1 Additional Source Comments INFORMATION SOURCE (unrecogn ized section and content) DATE CREATED AUTHOR 01/26/2018 [facility] DATE CREATED AUTHOR AUTHOR'S ORGANIZ ATION 06/05/2022 [employer] DATE CREATED AUTHOR AUTHOR'S ORGANIZ ATION 12/11/2022 [facility] DATE CREATED AUTHOR AUTHOR'S ORGANIZ ATION 03/13/2023 [facility] DATE CREATED AUTHOR AUTHOR'S ORGANIZ ATION 03/19/2023 [facility] DATE CREATED AUTHOR AUTHOR'S ORGANIZ ATION 10/26/2023 [facility] EPIC DATE CREATED AUTHOR AUTHOR'S ORGANIZ ATION 10/28/2023 [facility] DATE CREATED AUTHOR AUTHOR'S ORGANIZ ATION 11/15/2023 [facility] DATE CREATED AUTHOR AUTHOR'S ORGANIZ ATION 11/24/2023 [facility] DATE CREATED AUTHOR AUTHOR'S ORGANIZ ATION 11/24/2023 [facility] Source Comments (unrecognize d section and content) In the event this informatio n is protected by the Federal Confidentiality of Alcohol and Drug Abuse Patient Records regulations: The Federal rules restrict any use of the information to criminally investigate or prosecute any alcohol or drug abuse patient.[facility] Reason for Visit (unrecogniz ed section and content) Reason Comments Patient Education Reason Comments Annual Exam Reason Comments Back Pain Specialty Diagnoses / Procedures Referred By Contac t Referred To Contact Radiology Diagnoses ASCVD (arteriosclerotic cardiovascular disease) Chest tightness Shortness of breath Procedures Nuclear Stress Test CHG MYOCARDIAL SPECT MULTIPLE STUDIES Darryl Santillan MD [address] [facility] [address], [address] [address] Referral ID Status Reason Start Date Expiration Date V isits Requested Visits Authorized [id number] Authorized 10/23/2023 10/22/2024 5 5 Care Teams (unrecognized sec tion and content) Team Status: Active Member Role Status Dates Porfirio Vu MD Primary Care Provider Active Team Status: Active Member Role Status Dates Chaitanya Lu DO Emergency Provider Active Porfirio Vu MD Primary Care Provider Active W Ziyad Townsend , DO Admit Provider, Attending Provide r Active Odalis Hager MD Other Provider Active Team Status: Active Member Role Status Dates Danis Barreto DO Primary Care Provider Active Team Status: Inactive Member Role Status Dates Chaitanya Lu DO Emergency Provider Active W Ziyad Townsend , DO Admit Provider, Attending Provide r Active Danis Barreto DO Primary Care Provider Active Odalis Hager MD Other Provider Active 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 Ironworker Relationship Specialty Start Date End Date Danis Barreto DO [address] [place] [address] [address] [place] [address] PCP - General 04/16/21 Team Status: Inactive Member Role Status Dates Danis Barreto DO Attending Provider Active Sta rt: August 14, 2023 End: August 14, 2023 Team Status: Inactive Member Role Status Dates Danis Barreto DO Primary Care Provide r, Attending Provider Active Start: October 20, 2023 End: October 20, 2023 Ornamental Ironworker Relationship Specialty Start Date End Date Danis Barreto DO [address] [place] [address] PCP - General Internal Medicine 05/10/21 Ornamental Ironworker Relationship Specialty Start Date End Date Danis Barreto DO [address] [place] [address] [id number] PCP - General Internal Medicine 05/10/21 Ornamental Ironworker Relationship Specialty Start Date End Date Danis Barreto DO [address] [place] [address] PCP - General Internal Medicine 11/10/23 Ornamental Ironworker Relationship Specialty Start Date End Date Danis Barreto DO [address] [facility] 1 [place] [address] PCP - General Internal Medicine 11/10/23 Ornamental Ironworker Relationship Specialty Start Date End Date Danis Barreto DO [address] [facility] 1 [place] [address] PCP - General Internal Medicine 11/10/23 Ornamental Ironworker Relationship Specialty Start Date End Date Danis Barreto DO [address] [facility] 1 [place] [address] PCP - General Internal Medicine 11/10/23 Ornamental Ironworker Relationship Specialty Start Date End Date Danis Barreto DO [address] [place] [address] 1 [place] [address] PCP - General Internal Medicine 11/10/23 Ornamental Ironworker Relationship Specialty Start Date End Date Danis Barreto DO [address] [address] PCP - General Internal Medicine 11/10/23 Ornamental Ironworker Relationship Specialty Start Date End Date Danis Barreto DO [address] [facility] 1 [place] [address] PCP - General Internal Medicine 11/10/23 Team Status: Inactive Member Role Status Dates Danis Barreto DO Primary Care Provider Active Start: November 16, 2023 End: November 16, 2023 Allan Townsend DO Attending Provider Active S tart: November 16, 2023 End: November 16, 2023 Team Status: Inactive Member Role Status Dates Danis Barreto DO Primary Care Provider Active Start: November 18, 2023 End: November 18, 2023 Allan Townsend DO Attending Provider Active S tart: November 18, 2023 End: November 18, 2023 Goals (unrecognized section and content) Goals may be documented in a n alternate section FOR RECORDS PERTAINING TO PATIENTS WHO ARE [...] BE BASED ON THE PRIMARY CLINICAL RECORDS. [facility] [employer] provides no warranty or guarantee of the accuracy or completeness of information in this document.
[2023-11-25 16:14] LABS: Basophils Percent Auto 0.3 % (0.2-2.0); Eosinophils Absolute Auto 0.3 10^3/uL (0.0-0.7); Eosinophils Percent Auto 4.1 % (0.9-7.0); Hematocrit 34.3 % (36.0-48.0); Hemoglobin 11.3 g/dL (12.0-16.0); Immature Granulocytes Abs Auto 0.01 10^3/uL (0.00-0.03); Immature Granulocytes Pct Auto 0.2 % (0.0-0.5); Lymphocytes Absolute Auto 1.8 10^3/uL (1.2-3.8); Lymphocytes Percent Auto 29.7 % (20.5-60.0); Mean Corpuscular HGB Conc 32.9 g/dL (29.9-35.2); Mean Corpuscular Hemoglobin 31.1 pg (26.7-34.0); Mean Corpuscular Volume 94.5 fL (81.0-99.0); Mean Platelet Volume 9.7 fL (9.5-13.5); Monocytes Absolute Auto 0.6 10^3/uL (0.3-0.8); Monocytes Percent Auto 9.2 % (1.7-12.0); Neutrophils Absolute Auto 3.4 10^3/uL (1.4-6.5); Neutrophils Percent Auto 56.5 % (43.0-75.0); Platelet Count 217 10^3/uL (150-450); Red Blood Count 3.63 10^6/uL (4.20-5.40); Red Cell Distribution Width 13.6 % (11.0-15.0); White Blood Count 6.1 10^3/uL (4.0-11.0)
[2023-11-25 16:43] LABS: Anion Gap 14.3; BUN Creatinine Ratio 16.7; Calcium 9.3 mg/dL (8.5-10.1); Carbon Dioxide 27.9 mmol/L (21.0-32.0); Chloride 102 mmol/L (98-107); Estimated GFR (African America 49 (>=60); Estimated GFR (Non-African Ame 40 (>=60); Glucose 101 mg/dL (74-106); Potassium 4.2 mmol/L (3.5-5.1); Sodium 140 mmol/L (136-145)
== END 2023-11-25 15:31 | disposition home or self-care (01) ==
LOC: LAB 15:35
PROVIDERS: PCP Internal Medicine; Visit Provider Nurse Practitioner
DX: I50.9 Heart failure, unspecified (principal); Z98.61 Coronary angioplasty status
CPT/HCPCS: 36415; 80048; 85025

== ENCOUNTER 2023-11-30 13:52 | Outpatient (OUT) | payer OTHER, SELFPAY ==
[2023-11-30 14:29] LABS: Bilirubin Urine NEGATIVE (NEGATIVE); Blood Urine NEGATIVE (NEGATIVE); Clarity Urine CLEAR (CLEAR); Color Urine YELLOW (YELLOW); Glucose Urine UA NEGATIVE (NEGATIVE); Ketones Urine NEGATIVE (NEGATIVE); Leukocyte Esterase Urine NEGATIVE (NEGATIVE); Nitrite Urine NEGATIVE (NEGATIVE); Protein Urine NEGATIVE (NEG/TRACE)
[2023-11-30 14:30] LABS: Urine Microscopic Indicated NO
== END 2023-11-30 13:53 | disposition home or self-care (01) ==
LOC: LAB 13:53
PROVIDERS: PCP Internal Medicine; Visit Provider Nurse Practitioner
DX: R30.0 Dysuria (principal); R53.1 Weakness
CPT/HCPCS: 81003

== ENCOUNTER 2024-04-07 10:32 | Outpatient (OUT) | payer OTHER, SELFPAY ==
--- NOTE | 2024-04-07 10:54 | ECG_ITS ---
The [facility] Test Date: 2024-04-07 Pat Name: MARY TEE Department: Room: - Gender: Female [employer] Work[employer]: : 1940 Requested By: KOKO STREETER Order Number: [id number] Reading MD: IVAN BARRETO Measurements Intervals [place] Rate: 55 P: 20 [place]: 182 QRS: 25 QRSD: 89 T: 78 QT: 444 QTc: 428 Interpretive Statements SINUS BRADYCARDIA WITH SINUS ARRHYTHMIA No previous ECG available for comparison Electronically Signed On 04-07-2024 14:35:09 EDT by IVAN BARRETO
--- NOTE | 2024-04-07 11:59 | P.GSHP_ITS ---
History of Present Illness History of Present Illness Chief complaint: uretheral polyp Narrative: Patient presents for preadmission testing. The patient reports a history of urinary incontinence. She states she did have a pessary fitted and is feeling much much better. She denies dysuria, hematuria, or any other complaints. Review of Systems ROS Narrative REVIEW OF SYSTEMS: Negative except as stated in HPI, ten or more systems reviewed. Constitutional: No fever, chills, weakness ENT: No sore throat or epistaxis Cardiovascular: No edema, chest pain, or palpitations Respiratory: No shortness of breath, cough, or wheezing Musculoskeletal: No joint pain or swelling Gastrointestinal: No abdominal pain, constipation, diarrhea, or vomiting Genitourinary: No dysuria or hematuria Neurological: No numbness, tingling, weakness, or headache Psychiatric: No mood changes PFSH [facility] Medical History (Updated 04/07/24 @ 11:38 by Morena Wade NP) Back pain ?M54.9 - Dorsalgia, unspecified (ICD-10) Osteoporosis ?M81.0 - Age-related osteoporosis without current pathological fracture (ICD- 10) Arthritis ?M19.90 - Unspecified osteoarthritis, unspecified site (ICD-10) Myocardial infarction (01/14/23) ?I21.9 - Acute myocardial infarction, unspecified (ICD-10) Encounter for pessary maintenance ?Z46.89 - Encounter for fitting and adjustment of other specified devices (ICD-10) Uterine prolapse ?N81.4 - Uterovaginal prolapse, unspecified (ICD-10) Urge incontinence ?N39.41 - Urge incontinence (ICD-10) Carbuncle of urethra ?N34.0 - Urethral abscess (ICD-10) Lichen simplex chronicus ?L28.0 - Lichen simplex chronicus (ICD-10) Hypervolemia ?E87.70 - Fluid overload, unspecified (ICD-10) Hypercholesterolemia ?E78.00 - Pure hypercholesterolemia, unspecified (ICD-10) UTI (urinary tract infection) ?N39.0 - Urinary tract infection, site not specified (ICD-10) Esophagitis ?K20.90 - Esophagitis, unspecified without bleeding (ICD-10) GERD (gastroesophageal reflux disease) ?K21.9 - Gastro-esophageal reflux disease without esophagitis (ICD-10) Cystocele with rectocele ?N81.10 - Cystocele, unspecified (ICD-10) ?N81.6 - Rectocele (ICD-10) Congestive heart failure ?I50.9 - Heart failure, unspecified (ICD-10) Anticoagulated ?Z79.01 - medical terminologist (current) use of anticoagulants (ICD-10) Anemia ?D64.9 - Anemia, unspecified (ICD-10) Hyperlipidemia ?E78.5 - Hyperlipidemia, unspecified (ICD-10) Hypertension ?I10 - Essential (primary) hypertension (ICD-10) Arteriosclerotic cardiovascular disease ?I25.10 - Atherosclerotic heart disease of [place] coronary artery without angina pectoris (ICD-10) CAD (coronary artery disease) ?I25.10 - Atherosclerotic heart disease of [place] coronary artery without angina pectoris (ICD-10) Aortic valve stenosis ?I35.0 - Nonrheumatic aortic (valve) stenosis (ICD-10) Urethral prolapse ?N36.8 - Other specified disorders of urethra (ICD-10) Urethral polyp ?N36.2 - Urethral caruncle (ICD-10) Surgical History (Updated 04/07/24 @ 11:38 by Morena Wade NP) History of colonoscopy ?Z98.890 - Other specified postprocedural states (ICD-10) H/O hand surgery ?Z98.890 - Other specified postprocedural states (ICD-10) History of breast biopsy ?Z98.890 - Other specified postprocedural states (ICD-10) Hx of breast reduction, elective ?Z98.890 - Other specified postprocedural states (ICD-10) S/P cataract extraction and insertion of intraocular lens ?Z98.49 - Cataract extraction status, unspecified eye (ICD-10) ?Z96.1 - Presence of intraocular lens (ICD-10) S/P total hip arthroplasty ?Z96.649 - Presence of unspecified artificial hip joint (ICD-10) History of cardiac catheterization ?Z98.890 - Other specified postprocedural states (ICD-10) H/O blepharoplasty ?Z98.890 - Other specified postprocedural states (ICD-10) H/O abdominoplasty ?Z98.890 - Other specified postprocedural states (ICD-10) H/O cystoscopy ?Z98.890 - Other specified postprocedural states (ICD-10) Post PTCA (~11/2023) ?Z98.61 - Coronary angioplasty status (ICD-10) Family History (Updated 04/07/24 @ 11:38 by Morena Wade NP) Other Family history of heart disease Family history of hypertension Family history of myocardial infarction Family history of stroke Social History (Updated 04/07/24 @ 11:31 by Morena Wade NP) Within the past year, how often did you have a drink containing alcohol: monthly or less Smoking status: Never smoker Non-prescribed substance use: denies use Highest level of school completed/degree received: high school graduate Meds Home Medications and Allergies Home Medications ?Medication ?Instructions ?Recorded ?Confirmed ?Type alendronate 70 mg tablet 70 mg PO QWEEK 04/07/24 04/07/24 History aspirin 81 mg tablet,delayed 81 mg PO DAILY 04/07/24 04/07/24 History release (Adult Aspirin Regimen) atorvastatin 80 mg tablet 80 mg PO DAILY 04/07/24 04/07/24 History carvedilol 6.25 mg tablet 6.25 mg PO Q12H 04/07/24 04/07/24 History cholecalciferol (vitamin D3) 25 25 mcg PO DAILY 04/07/24 04/07/24 History mcg (1,000 unit) capsule docusate sodium 100 mg capsule 100 mg PO BID 04/07/24 04/07/24 History (Col-Rite) hydrochlorothiazide 25 mg tablet 25 mg PO .every other day 04/07/24 04/07/24 History mirabegron 25 mg tablet,extended 25 mg PO Q24H 04/07/24 04/07/24 History release 24 hr (Myrbetriq) nitroglycerin 0.4 mg sublingual 0.4 mg sublingual Q5M 04/07/24 04/07/24 History tablet (Nitrostat) omeprazole 10 mg capsule,delayed 10 mg PO DAILY 04/07/24 04/07/24 History release telmisartan 20 mg tablet 20 mg PO DAILY 04/07/24 04/07/24 History ticagrelor 90 mg tablet (Brilinta) 90 mg PO Q12H 04/07/24 04/07/24 History Allergies Allergy/AdvReac Type Severity Reaction Status Date / Time No Known Drug Allergies Allergy Verified 04/07/24 11:19 Exam Narrative Exam Narrative: Constitutional: Awake, alert, comfortable, well-appearing, nontoxic, interactive, vital signs as charted Head: Normocephalic, atraumatic Neck: Supple, normal appearance, normal range of motion, no meningeal signs, no lymphadenopathy Respiratory: No respiratory distress, breath sounds clear Cardiovascular: Regular rate and rhythm, strong and regular heart tones Abdomen: Nontender, normal bowel sounds, soft, no CVA tenderness Musculoskeletal: Normal gait, no swelling or edema Skin: No rashes or induration, no lesions, only visible skin inspected Neuro: No neurological deficits, normal sensation Psychiatric: Oriented ?3, normal affect Assessment and Plan Assessment and Plan (1) Urethral polyp: (2) Urethral prolapse: Plan Cystoscopy, excision of urethral prolapse scheduled with Dr. Cantor April 21, 2024.
--- NOTE | 2024-04-07 12:07 | XR_ITS ---
The [address] [address] Patient Name: MARY TEE MRN: [id number] date: 1940 Sex: F [facility] Current Patient Location: [facility] Accession/Order Number: [id number] Exam Date: 04/07/2024 12:02 Report Date: 04/07/2024 12:36 At the request of: KOKO STREETER Procedure: XR chest 2V EXAM: XR chest 2V HISTORY: Preop exam COMPARISON: 07/06/2008 TECHNIQUE: Upright PA and lateral chest x-ray FINDINGS: The heart is not enlarged and the vasculature is not distended. No acute infiltrate, effusion or pneumothorax is identified. Increasing calcifications are seen in the aortic arch. The osseous structures are grossly intact. XR/XR chest 2V IMPRESSION: No acute infiltrate or evidence of cardiac decompensation. Except for increasing prominence of the calcifications in the aortic arch, the overall appearance is unchanged. Electronically authenticated by: KHANH DAVIS Date: 04/07/2024 12:36
[2024-04-07 12:08] LABS: Basophils Percent Auto 0.6 % (0.2-2.0); Eosinophils Absolute Auto 0.3 10^3/uL (0.0-0.7); Eosinophils Percent Auto 5.6 % (0.9-7.0); Hematocrit 35.3 % (36.0-48.0); Hemoglobin 11.8 g/dL (12.0-16.0); Immature Granulocytes Abs Auto 0.02 10^3/uL (0.00-0.03); Immature Granulocytes Pct Auto 0.4 % (0.0-0.5); Lymphocytes Absolute Auto 1.5 10^3/uL (1.2-3.8); Lymphocytes Percent Auto 29.5 % (20.5-60.0); Mean Corpuscular HGB Conc 33.4 g/dL (29.9-35.2); Mean Corpuscular Hemoglobin 31.7 pg (26.7-34.0); Mean Corpuscular Volume 94.9 fL (81.0-99.0); Mean Platelet Volume 9.7 fL (9.5-13.5); Monocytes Absolute Auto 0.5 10^3/uL (0.3-0.8); Monocytes Percent Auto 10.2 % (1.7-12.0); Neutrophils Absolute Auto 2.7 10^3/uL (1.4-6.5); Neutrophils Percent Auto 53.7 % (43.0-75.0); Platelet Count 158 10^3/uL (150-450); Red Blood Count 3.72 10^6/uL (4.20-5.40); Red Cell Distribution Width 13.7 % (11.0-15.0)
[2024-04-07 12:21] LABS: Anion Gap 12.5; BUN Creatinine Ratio 19.8; Calcium 8.9 mg/dL (8.5-10.1); Carbon Dioxide 26.6 mmol/L (21.0-32.0); Chloride 106 mmol/L (98-107); Estimated GFR (African America >60 (>=60); Estimated GFR (Non-African Ame >60 (>=60); Glucose 107 mg/dL (74-106); Potassium 4.1 mmol/L (3.5-5.1); Sodium 141 mmol/L (136-145)
[2024-04-07 12:34] LABS: INR 0.96; Partial Thromboplastin Time 26.5 sec (22.3-36.2); Prothrombin Time 10.2 sec (9.0-11.6)
== END 2024-04-07 10:33 | disposition home or self-care (01) ==
LOC: PST 10:33
PROVIDERS: PCP Internal Medicine; Visit Provider Urology
DX: Z01.810 Encounter for preprocedural cardiovascular examination (principal); Z01.812 Encounter for preprocedural laboratory examination; Z01.818 Encounter for other preprocedural examination; N36.2 Urethral caruncle; N81.4 Uterovaginal prolapse, unspecified
CPT/HCPCS: 71046; 80048; 85025; 85610; 85730; 93005; G0463

== ENCOUNTER 2024-04-28 09:08 | Outpatient (OUT) | payer OTHER, SELFPAY | END 2024-04-28 09:09 | disposition home or self-care (01) | LOC: PST 09:09 | PROVIDERS: PCP Internal Medicine; Visit Provider Urology | DX: Z01.818 Encounter for other preprocedural examination (principal); Z86.010 Personal history of colon polyps ==

== ENCOUNTER 2024-05-27 15:05 | Outpatient (OUT) | payer OTHER, SELFPAY ==
--- NOTE | 2024-05-27 | XR_ITS ---
The [place] [id number] Patient Name: MARY TEE MRN: [id number] date: 1940 Sex: F Assigned Patient Location: LAB Current Patient Location: Accession/Order Number: [id number] Exam Date: 05/27/2024 15:30 Report Date: 05/31/2024 09:14 At the request of: IVAN BARRETO Procedure: XR forearm RT 2V PROCEDURE: XR forearm RT 2V HISTORY: Pain of right upper extremity ; right forearm medial pain and bruising since falling 2 days ago COMPARISON: None. FINDINGS: BONES:Moderate-marked degenerative changes at the scaphoid-trapezium and the trapezial-first metacarpal joints. Mild widening of the scapholunate joint. No acute fracture. SOFT TISSUES:Degenerative calcium deposition within the triangular fibrocartilage and cartilage of the carpal bones. EFFUSION:None visible. OTHER: Negative. XR/XR forearm RT 2V IMPRESSION: 1. No acute bone abnormality. 2. Chronic degenerative changes. Electronically authenticated by: YOSELIN KING Date: 05/31/2024 09:14
--- OUTSIDE RECORDS SUMMARY | 2024-05-27 15:23 | XMS_ITS | CCD ---
Author Organization [facility]ini[facility] Care Team Providers Care Family Practice Physician Assistant Name Role Phone ELY SULMA B Unavailable Unavailable PORFIRIO VU Unavailable Unavailable Porfirio Vu Primary Care Provider [phone] Danis Barreto Unavailable Unavailable Unavailable Danis Barreto Unavailable TYRELL, DR SUNG Admitting Unavailable MARY LOU, DR MOSCOSO Primary Care Unavailable TYRELL, DR SUNG Attending Unavailable TYRELL, DR SUNG Consulting Unavailable KARASIK ., DR GAINES Consulting Unavailangel BARRETO, DR MOSCOSO Primary Care Unavailable KARASIK ., DR GAINES Admitting Unavailabl e KARASIK ., DR GAINES Attending Unavailabl e KARASIK ., DR GAINES Attending Unavailabl e KARASIK ., DR GAINES Consulting Unavailangel BARRETO, DR MOSCOSO Primary Care Unavailable KARASIK ., DR GAINES Admitting Unavailabl e ZIEBER, YOSELIN Santiago Consulting Unavailable DO Chaitanya Luna Emergency Provider MD Porfirio Vu Primary Care Provider DO Allan Townsend Admit Provider [phone] DO Allan Townsend Attending Provider [phone] MD Odalis Hager Other Provider DO Danis Barreto Primary Care Provider [phone] Dr. Danis Barreto Primary Care Kelly Barreto, Dr. Danis Goodrich Primary Care Kelly Barreto, Dr. Danis Goodrich Primary Care Kelly Barreto, Dr. Danis Goodrich Primary Care Kelly Barreto, Dr. Danis Goodrich Primary Care Kelly Santillan II, Dr. Darryl Arthur Attending Unavailable Tyrell II, Dr. Darryl Arthur Referring Unavailable Ball, Dr. Danis Goodrich Primary Care Kelly Barreto, Dr. Danis Goodrich Primary Care Kelly Santillan II, Dr. Darryl Arthur Attending Unavailable Johnuinn II, Dr. Darryl Arthur Referring Unavailable McGuinn II, Dr. Darryl Arthur Attending Unavailable Ball, Dr. Danis Goodrich Primary Care Kelly Barreto DO, Danis Goodrich Primary Care Provider Danis Barreto DO Primary Care Provider Mary Lou DO, Danis Nowak Primary Care Provider DARRYL SANTILLAN Referring Unavailable MARY LOU, DANIS Nowak Primary Care Unavailable DARRYL SANTILLAN P Referring Unavailable DANIS BARRETO Primary Care Unavailable Mary Lou, DO Moscoso Primary Care Provider DO Allan Townsend Attending Provider Danis Barreto DO Primary Care Provider DO Alexei Stone Emergency Provider [phone] DO Danis Barreto Attending Provider DANIS BARRETO Primary Care Physician [phone] Mary Lou, DO Moscoso Primary Care Provider [phone] ViscDO Jordan ba Attending Provider DARRYL SANTILLAN Attending Unavailable MARY LOU, DANIS E Primary Care Unavailable SULMA BUSBY Attending Unavailable SULMA BUSBY Referring Unavailable DANIS BARRETO E Primary Care Unavailable DARRYL SANTILLAN Attending Unavailable DARRYL SANTILLAN Referring Unavailable DANIS BARRETO E Primary Care Unavailable Danis Barreto Admitting Unavailable Mary Lou, Danis Primary Care Unavailable Danis Barreto Attending Unavailable Allan Townsend Attending Unavailable Mary Lou, Danis Primary Care Unavailable Allan Townsend Admitting Unavailable Mary Lou, Danis Primary Care Unavailable Kristian, Allan Lackey Admitting Unavailable Allan Townsend Attending Unavailable Danis Barreto Primary Care Unavailable Alexei Stone Admitting Unavailable Alexei Stone Attending Unavailable Jordan Miguel Admitting Unavailable ViscJordan ba Attending Unavailable Jerson STREETER Attending Unavailable Jerson STREETER Attending Unavailable Jerson STREETER Attending Unavailable Antonina Cooper Attending Unavailable Jerson STREETER Attending Unavailable Allison, Antonina Majano Attending Unavailable CELINA LIAO Attending Unavailable BALL, DANIS E Referring Unavailable MARY LOU, DANIS Nowak Primary Care Unavailable KENDY LIAO Attending Unavailable MARY LOU, DANIS Nowak Referring Unavailable MARY LOU, DANIS Nowak Primary Care Unavailable DARRYL ARAGON Attending Unavailable DARRYL ARAGON Referring Unavailable MARY LOU, DANIS Nowak Primary Care Unavailable DARRYL ARAGON Admitting Unavailable AMANDA, DARRYL Nowak Attending Unavailable MARY LOU, DANIS Nowak Referring Unavailable MARY LOU, DANIS Nowak Primary Care Unavailable Danis Barreto MD Primary Care Provider DANIS BARRETO Referring Unavailable MARY LOU, DANIS Nowak Primary Care Unavailable GOLDIE, AIDAN Starks Attending Unavailable APLING, MERCEDEZ Dodson Attending Unavailable BLACKSTON, JONI Attending Unavailable APLING, MERCEDEZ Dodson Referring Unavailable RUSHER, YOSELIN Starks Attending Unavailable APLING, MERCEDEZ Dodson Attending Unavailable APLING, MERCEDEZ Dodson Referring Unavailable APLING, MERCEDEZ Dodson Attending Unavailable RUSHER, YOSELIN Starks Attending Unavailable TRUMAN, HERMILO P Attending Unavailable TRUMAN, PENOLA P Referring Unavailable TRUMAN, HERMILO P Attending Unavailable TRUMAN, PENOLA P Referring Unavailable TRUMAN, PENOLA P Attending Unavailable TRUMAN, PENOLA P Attending Unavailable TRUMAN, PENOLA P Referring Unavailable LAUGHLIN, PENOLA P Attending Unavailable LAUGHLIN, PENOLA P Referring Unavailable VISCI, JORDAN Starks Attending Unavailable VISCI, JORDAN Starks Referring Unavailable APLING, MERCEDEZ Dodson Attending Unavailable VISCI, JORDAN Starks Attending Unavailable VISCI, JORDAN Starks Referring Unavailable VISCI, JORDAN Starks Attending Unavailable VISCI, JORDAN Starks Referring Unavailable GOLDIE, AIDAN Starks Attending Unavailable RUSHER, YOSELIN Starks Attending Unavailable SALCEDO, ANA Gaytan Attending Unavailable GOLDIE, AIDAN Starks Attending Unavailable GOLDIE, AIDAN Starks Referring Unavailable VISCI, JORDAN Starks Attending Unavailable Allergies Allergy Classification Reported Allergen(s) Allergy Type Date of Onset Reaction(s) Facility (1 source) No Known Medication Allergies; 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: [No Known Medication Allergies] Propensity to adverse reactions (disorder) [facility] Rep[facility] Medications Current Medications Medication Drug Class(es) Dates Sig (Normalized) Sig (Original) acetaminophen 500 mg oral tablet (11 sources) Start: 11-16-2023 take 2 tablets by mouth every six hours Acetaminophen (Tylenol Extra Strength) 500 mg tablet Active 1000 MG PO Every 6 hours November 16, 2023 12:00am alendronic acid 70 mg oral tablet (20 sources) Bisphosphonate Start: 11-17-2023 End: 11-16-2024 take 1 tablet by mouth in the morning alendronate (Fosamax) 70 MG tablet Indications: Osteoporosis, post-menopausal (CMS/HCC) Take 1 tablet (70 mg) by mouth every 7 (seven) days Take in the morning with a full glass of water, on an empty stomach, and do not take anything else by mouth or lie down for the next 30 min. 4 tablet 11 11/17/2023 11/16/2024 Active Start: 05-28-2022 take 70 mg by mouth every week Alendronate Active 70 MG PO every week January 14, 2023 12:00am EVERY THURSDAY take 1 tablet by tamara th once daily Alendronate Sodium 70 MG 1 tablet 30 minutes before the first food, beverage or medicine of the day with plain water Orally Active aspirin 81 mg oral capsule (20 sources) Platelet Aggregation Inhibitor, Nonsteroidal Anti-inflammatory Drug Start: 02-08-2024 take 1 mg by mouth every twenty-four hours aspirin 81 mg oral capsule mg cap(s), Oral, q24hr, Refills(s) 0 Start Date: 02/08/24 Status: Ordered Start: 07-08-2007 take 1 tablet by tamara th once daily Aspirin (Aspir-81) 81 mg Tablet,Delayed Release (Dr/Ec) Active 81 MG PO Daily November 02, 2017 12:00am take 1 tablet by tamara th once daily Aspirin 81 81 MG 1 tablet Orally Once a day Active Baby Aspirin Act philippe Comment on above: Take one (1) tablet daily. atorvastatin 80 mg oral tablet (20 sources) HMG-CoA Reductase [...] PO Every evening January 16, 2023 12:00am azithromycin 250 mg oral tablet (2 sources) [...] mg / cholecalciferol 200 unt oral tablet (20 sources) Vitamin D take 1 tablet by mouth once in the morning Calcium Carbonate-Vitamin D (Oyster Shell Calcium/D) 500-5 MG-MCG tablet Take 1 tablet by mouth in the morning. Active take 1 tablet by mouth once jasiel y calcium carbonate-vitamin D3 500 mg-5 mcg (200 unit) tablet Take 1 tablet by mouth once daily. Active Calcium Carbonate / vitamin D3 (10 sources) Start: 11-17-2023 take 1 tablet by mouth once daily Calcium Carbonate-Vitamin D3 Active 1 TAB PO Daily November 17, 2023 12:00am carvedilol 6.25 mg oral tablet (20 sources) alpha-Adrenergic Elpidio, beta-Adrenergic Elpidio Start: 01-16-2023 take 6.25 mg by mouth twice daily at mealtime Carvedilol Active 6.25 MG PO Twice daily with meals 60 January 16, 2023 12:00am cetirizine hydrochloride 10 mg oral tablet (2 sources) Histamine-1 Receptor Antagonist Start: 03-16-2023 take 1 tablet by mouth every twenty-four hours Cetirizine HCl 10 MG 1 tablet Orally Once a day for 30 days Mar, Active docusate sodium 50 mg oral capsule (20 sources) Start: 01-14-2023 take 50 mg by mouth twice daily Docusate Sodium Active 50 MG PO Twice daily January 14, 2023 12:00am take 1 capsule by [facility] once daily as needed Docusate Sodium 50 MG 1 capsule as neede d Orally Once a day Active Docusate Sodium TABS TAKE 1 TABLET DAILY DIRECTED. Quantity: 0 Refills: 0 Ordered: 05-Feb-2023 DO Active estradiol 0.1 mg/ml vaginal cream (8 sources) Estrogen Start: 01-29-2024 estradiol (Est race) 0.1 MG/GM vaginal cream Indications: Vaginal atrophy 1 gram at bedtime for 2 weeks then twice weekly 42 g 3 01/29/2024 Active hydroCHLOROthiazide 25 mg oral tablet (20 sources) Thiazide Diuretic Start: 03-29-2024 Hydrochlorothiazide Active 0 .ROUTE .COMPLEX March 29, 2024 9:38am TAKE 1 TABLET BY MOUTH EVERY 48 HOURS Start: 03-09-2024 take 1 tablet by tamara th every other day hydroCHLOROthiazide (HYDRODiuril) 25 MG tablet Take 25 mg by mouth every other day 03/09/2024 Active Start: 12-24-2023 End: 03-29-2024 Hydrochlorothiazide Disconti nued 25 MG PO Every 48 hours December 24, 2023 12:00am March 29, 2024 9:38am LORazepam 0.5 mg oral tablet (4 sources) Benzodiazepine Start: 05-17-2024 LORazepam (Ativan) 0.5 MG tablet Indications: Chronic low back pain, unspecified back pain laterality, unspecified whether sciatica present Take 1 tablet (0.5 mg) by mouth See administration instructions for 1 dose 1 by mouth 1 hour prior to MRI 1 tablet 05/17/2024 Active 24 hr mirabegron 25 mg extended release oral tablet (12 sources) beta3-Adrenergic Agonist Start: 03-02-2024 take 1 tablet by mouth once daily Mirabegron (Myrbetriq) 25 mg tablet extended release 24 hr Active 25 MG PO Daily March 02, 2024 12:00am Start: 02-24-2024 End: 02-23-2025 take 1 tablet by mouth every twenty-four hours at bedtime mirabegron ER (Myrbetriq) 25 MG 24 hr tablet Indications: Urge incontinence , Urinary frequency Take 1 tablet (25 mg) by mouth at bedtime Do not crush, chew, or split. 90 tablet 3 02/24/2024 02/23/2025 Active Molnupiravir (3 sources) Start: 04-12-2024 take 800 mg by mouth every twelve hours Molnupiravir Active 800 MG PO Every 12 hours 40 5 April 12, 2024 12:00am nystatin 100 unt/mg topical ointment (8 sources) Polyene Antifungal Start: 01-11-2024 nystatin (Mycostatin) ointment Indications: Cutaneous Candidiasis Apply thin film BID prn irritation 30 g 1 01/11/2024 Active Omeprazole (20 sources) Proton Pump Inhibitor Start: 02-08-2024 Omeprazole Magnesium (PRILOSEC PO) Take by mouth 02/08/2024 Active Start: 02-08-2024 Prilosec Oral, Daily, Refills(s) 0 Start Date: 02/08/24 Status: Ordered Start: 01-16-2009 End: 01-12-2024 omeprazole(PRILOSEC 20 MG CA P) Take one(1) capsule daily. 0 01/16/2009 Active take 1 tablet by tamara th every twenty-four hours PriLOSEC OTC 20 MG 1 tablet Orally Once a day Active take 1 tablet by tamara th once daily PriLOSEC OTC 20 MG 1 tablet Orally Once a day Active PriLOSEC 20 MG C PDR 1/2 capsule daily Quantity: 0 Refills: 0 Ordered: 04-Jun-2022 DO Active Comment on above: Take one(1) capsule daily. Omeprazole Magnesium (Prilosec Otc) 20 mg Tablet,Delayed Release (Dr/Ec) (14 sources) Start: 11-02-2017 take 1 tablet by mouth once daily Omeprazole Magnesium (Prilosec Otc) 20 mg Tablet,Delayed Release (Dr/Ec) Active 20 MG PO Daily November 02, 2017 12:00am pravastatin sodium 80 mg oral tablet (20 sources) HMG-CoA Reductase Inhibitor Start: 09-17-2022 take [...] a day for 100 days Active tamsulosin (4 sources) alpha-Adrenergic Elpidio take 70 mg by m outh every week tamsulosin HCl (FLOMAX ORAL) Take 70 mg by mouth once a week. Active take 70 mg by mouth every week t amsulosin HCl (FLOMAX ORAL) Take 70 mg by mouth once a week. 0 Active telmisartan 20 mg oral tablet (20 sources) Angiotensin 2 Receptor Elpidio Start: 03-14-2024 take 1 tablet by mouth once daily Telmisartan Active 0 .ROUTE .COMPLEX March 14, 2024 8:49am TAKE 1 TABLET BY MOUTH DAILY Start: 12-24-2023 End: 03-14-2024 take 20 mg by mouth once daily Telmisartan Discontinue d 20 MG PO Daily December 24, 2023 12:00am March 14, 2024 8:49am ticagrelor 90 mg oral tablet (20 sources) Start: 01-16-2023 End: 06-15-2023 take 1 tablet by mouth twice daily Ticagrelor (Brilinta) 90 mg Tablet Active 90 MG PO Twice daily January 16, 2023 12:00am Vitamin D3 (3 sources) Start: 02-08-2024 Vitamin D3 Ref ills(s) 0 Start Date: 02/08/24 Status: Ordered {20 (nirmatrelvir 150 MG Oral Tablet) / [...] Sig (Original) amoxicillin 500 mg oral capsule (9 sources) Penicillin-class Antibacterial Start: 02-26-2024 End: 03-02-2024 Amoxicillin Discontinued 2000 MG PO As Directed February 29, 2024 1:12pm March 02, 2024 10:05am Start: 10-02-2021 Amoxicillin 50 0 MG Oral Capsule TAKE 4 CAPSULES BY MOUTH 30 minutes prior to dental appointment Quantity: 4 Refills: 0 Ordered: 02-Oct-2021 DO Start : 02-Oct-2021 Complete atenolol 25 mg oral tablet (20 sources) beta-Adrenergic Elpidio Start: 04-02-2022 take 0.5 [...] on above: Take one(1) tablet d aily. cholecalciferol 0.025 mg oral capsule (20 sources) Vitamin D Start: 01-15-20 End: 11-17-19 take 1 capsule by mouth once daily Cholecalciferol (Vitamin D3) (Vitamin D3) 25 mcg (1,000 unit) Capsule Discontinued 25 MCG PO Daily January 14, 2023 12:00am November 17, 2023 12:55pm cholecalciferol, vitamin D3, (VITAMIN D3) 5,000 units capsule Take 1,000 Units by mouth daily. Active take 1 capsule by [facility] in the morning cholecalciferol, vitamin D3, 25 mcg (1,0 00 unit) capsule Take 1 capsule (1,000 Units total) by mouth in the morning. Active take 1 capsule by [facility] every twenty-four hours Vitamin D3 50 MCG (1999 UT) 1 capsule Or ally Once a day Active ciprofloxacin 500 mg oral tablet (2 sources) Quinolone Antimicrobial Start: 02-18-2024 take 1 tablet by mouth once daily Cipro 500 mg Tab 500 mg = 1 tab(s), Oral, Daily, Take 1 tablet the day before the procedure and 1 tablet after the procedure, # 2 tab(s), Refills(s) 0, Pharmacy: [id number], 165, cm, 02/08/24 11:04:00 EDT, Height/Length Dosing, 65, kg, 02/08/24 11:04:00 EDT, Weight Dosing Start Date: 02/18/24 Status: Ordered 24 hr darifenacin 7.5 mg extended release oral tablet (1 source) Cholinergic Muscarinic Antagonist Start: 07-08-2007 darifenacin hydrobromide(ENAB RENA 7.5 MG 24 HR TAB) ONE IN AM AND 1 IN THE PM 0 07/08/2007 Active Comment on above: ONE IN AM AND 1 IN T HE PM diclofenac sodium 75 mg delayed release oral tablet (14 sources) Nonsteroidal Anti-inflammatory Drug Start: 11-02-2017 End: 06-16-2018 take 75 [...] with breakfast. 0 10/27/2023 Discontinued (Therapy completed) furosemide 40 mg oral tablet (9 sources) Loop Diuretic Start: 12-23-2023 End: 12-24-2023 take 1 tablet by mouth once daily Furosemide (Lasix) 40 mg tablet Discontinued 40 MG PO Daily December 23, 2023 12:00am December 24, 2023 9:54am hydroCHLOROthiazide 12.5 mg / irbesartan 150 mg oral tablet (1 source) Thiazide Diuretic, Angiotensin 2 Receptor Elpidio Start: 12-13-2009 irbesartan/hydroc hlorothiazide(JEANA LIDE 150 MG-12.5 MG TAB) Take 1 tablet daily 0 12/13/2009 Active Comment on above: Take 1 tablet daily hydroCHLOROthiazide 12.5 mg / telmisartan 80 mg oral tablet (20 sources) Thiazide Diuretic, Angiotensin 2 Receptor Elpidio Start: 11-17-2023 End: 12-24-2023 take 1 tablet by mouth once daily Telmisartan-[place]on chlorothiazid (Micardis Hct) 80-12.5 mg tablet Discontinued 1 TAB PO Daily November 17, 2023 12:00am December 24, 2023 9:54am On Hold: hypotension Start: 01-14-2023 End: 11-17-2023 take 1 tablet by mouth once daily Telmisartan-Hydrochlorothiazid Discontin ued 1 TAB PO Daily January 14, 2023 12:00am November 17, 2023 12:54pm Start: 05-29-2022 Telmisartan-HC TZ 40-12.5 MG Oral Tablet Quantity: 30 Refills: 0 Ordered: 29-May-2022 DO Start : 29-May-2022 Complete End: 10-27-2023 take 1 tablet by mouth once in the morning telmisartan-hydroCHLOROthiazid (MICARDIS HCT) 40-12.5 mg per tablet Take 1 tablet by mouth in the morning. 0 10/27/2023 Discontinued (Therapy completed) hydrOXYzine hydrochloride 25 mg oral tablet (20 sources) Antihistamine Start: 05-12-2023 End: 11-16-2023 take 25 mg by mouth once daily at bedtime Hydroxyzine Hcl Discontinued 25 MG PO Daily at bedtime October 20, 2023 12:00am November 16, 2023 2:04pm Irbesartan-Hydrochlorot hiazide (14 sources) Start: 11-02-2017 End: 01-14-2023 take 1 tablet by mouth once daily Irbesartan-Hydrochloro thiazide Discontinued 1 TAB PO Daily November 02, 2017 12:00am January 14, 2023 11:55am 1 ml methylPREDNISolone acetate 40 mg/ml injection (4 sources) Corticosteroid Start: 05-10-2024 End: 05-10-2024 methylPREDNISolone acetate (DEPO-Medrol) injection 40 mg Start: 05-10-2024 End: 05-10-2024 40 mg, Injection, Once PRN P rocedure, Starting on Thu05/10/24 at 1350, For 1 dose multivitamins(DAILY VITAMIN TAB) (1 source) Start: 12-13-2009 End: 01-22-2011 multivitamins(DAILY VITAMIN TAB) nitrofurantoin, macrocrystals 25 mg / nitrofurantoin, monohydrate 75 mg oral capsule (5 sources) Nitrofuran Antibacterial Start: 01-29-2024 End: 03-02-2024 take 1 capsule by mouth twice daily at mealtime Nitrofurantoin Monohyd/M-Cryst (Macrobid) 100 mg capsule Discontinued 100 MG PO Twice daily 10 January 29, 2024 12:00am March 02, 2024 10:05am must administer with a meal/food 24 hr nitroglycerin 0.2 mg/hr transdermal system (20 sources) Nitrate Vasodilator Start: 11-19-2023 End: 04-25-2024 apply 0.2 mg transdermal route every hour, then apply 1 dose transdermal route every twenty-four hours Nitroglycerin (Nitro-Dur) 0.2 mg/hr patch 24 hour Discontinued 1 PATCH TRANSDERML Daily November 19, 2023 12:00am April 25, 2024 10:50am allow nitrate-free interval of approx. 10-12 hrs per 24-hour period Start: 01-16-2023 Nitroglycerin Active 0.4 MG SUBLINGUAL Q5M January 16, 2023 12:00am apply 0.1 mg transde rmal route every hour nitroglycerin (Nitrodur) 0.1 MG/HR patch Place 1 patch on the skin Daily Active Nitroglycerin 0. 4 MG as directed Sublingual Active regadenoson (Lexiscan) injection 0.4 mg (2 sources) Start: 11-10-2023 End: 11-10-2023 0.4 mg, intravenous, Once, On Thu11/10/23 at 0930, For 1 dose rosuvastatin calcium 10 mg oral tablet (1 source) HMG-CoA Reductase Inhibitor Start: 07-08-2007 rosuvastatin calcium(CRESTOR 10 MG TAB) sulfamethoxazole 800 mg / trimethoprim 160 mg oral tablet (1 source) Dihydrofolate Reductase Inhibitor Antibacterial, Sulfonamide Antimicrobial Start: 04-22-2022 Sulfamethoxazole-Tr imethoprim 800-160 MG Oral Tablet Quantity: 10 Refills: [...] (1 source) Azole Antifungal Start: 12-26-2021 Terconazole 0 .4 % Vaginal Cream Quantity: 45 Refills: 0 Ordered: 26-Dec-2021 DO Start : 26-Dec-2021 Complete Triamcinolone (20 sources) Corticosteroid Start: 09-22-2017 Kenalog -40 mg Sep, Start: 04-27-2017 Kenalog -40 mg Apr, Vitamin D3 CAPS (3 sources) Vitamin D3 CAPS TAKE 1 CAPSULE Daily Quantity: 0 Refills: 0 Ordered: 05-Feb-2023 DO Active Problems Active Problems Problem Classification Problem Date Documented Da te Episodic/Chronic Abdominal pain (5 sources) Right lower quadrant pain; 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: [Right lower quadrant pain] 04-25-2024 Episodic Acute bronchitis (3 sources) Acute bronchitis; 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: [Acute bronchitis due to other specified organisms] Episodic Acute myocardial infarction (20 sources) Myocardial infarction; 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: [ST elevation (STEMI) myocardial infarction of unspecified site] Onset: 4 01-14-2023 Chronic Acute posthemorrhagic anemia (2 sources) Acute posthemorrhagic anemia Episodic Allergic reactions (1 source) Urticaria, unspecified Episodic Chronic kidney disease (20 sources) Chronic kidney disease stage 3A ; 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: [Stage 3a chronic kidney disease] Chronic Conditions associated with dizziness or vertigo (4 sources) Dizziness and giddiness; 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: [Dizziness and giddiness] Episodic Congestive heart failure; nonhypertensive (20 sources) Congestive heart failure stage C; 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: [Congestive heart failure, unspecified] Onset: 3 06-15-2023 Chronic Coronary atherosclerosis and other heart disease (20 sources) Arteriosclerotic vascular disease; 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: [Cardiovascular disease, unspecified] Onset: 3 Chronic Deficiency and other anemia (15 sources) Anemia; 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: [Anemia, unspecified] 10-20-2023 Episodic Deficiency and other anemia (6 sources) Anemia, unspecified; 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: [Anemia, unspecified] 10-20-2023 Episodic Disorders of lipid metabolism (20 sources) Hyperlipidemia; 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: [Other and unspecified hyperlipidemia] Onset: 3 Chronic Esophageal disorders (20 sources) Gastro-esophageal reflux disease with esophagitis; 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: [Gastroesophageal reflux disease with esophagitis without hemorrhage] 02-08-2024 Chronic Essential hypertension (20 sources) Benign essential hypertension; 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: [Benign essential hypertension] Onset: 3 Chronic Essential hypertension (1 source) Essential hypertension Onset: 7 Fluid and electrolyte disorders (12 sources) Hypervolemia; 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: [Fluid overload, unspecified] 12-23-2023 Episodic Genitourinary symptoms and ill-defined conditions (5 sources) Unspecified urinary incontinence; 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: [Urge incontinence] Onset: 4 Chronic Genitourinary symptoms and ill-defined conditions (20 sources) Dysuria; 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: [Dysuria] Onset: 4 11-30-2023 Episodic Heart valve disorders (10 sources) Aortic valve stenosis; 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: [Nonrheumatic aortic (valve) stenosis] 01-07-2024 Chronic Immunizations and screening for infectious disease (4 sources) Encounter for screening for human papillomavirus (HPV); 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: [Contact with and (suspected) exposure to other viral communicable diseases] Onset: 2 Episodic Menopausal disorders (2 sources) Atrophy of vagina; 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: [Postmenopausal atrophic vaginitis] 05-18-2024 Chronic Nausea and vomiting (7 sources) Nausea; 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: [Nausea] 10-20-2023 Episodic Nonmalignant breast conditions (1 source) Mastodynia Episodic Nonspecific chest pain (14 sources) Chest pain, unspecified; 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: [Chest pain] Onset: 7 Resolved: 2 11-10-2023 Episodic Nutritional deficiencies (8 sources) Vitamin D deficiency; 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: [Vitamin D deficiency, unspecified] Onset: 6 05-21-2023 Chronic Osteoarthritis (20 sources) Osteoarthritis of hip; 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: [Unilateral primary osteoarthritis, right hip] Onset: 0 06-04-2021 Chronic Osteoporosis (20 sources) Senile osteoporosis; 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: [Age-related osteoporosis without current pathological fracture] Onset: 2 Chronic Other acquired deformities (20 sources) Lumbar spondylolisthesis; 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: [Spondylolisthesis, lumbar region] 05-26-2024 Episodic Other acquired deformities (2 sources) Spondylolisthesis, lumbar region Episodic Other aftercare (3 sources) Long-term current use of drug therapy; 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: [Other web application tester (current) drug therapy] Episodic Other aftercare (2 sources) Long-term current use of anticoagulant; 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: [residential (current) use of anticoagulants] Onset: 4 Episodic Other connective tissue disease (20 sources) History of repair of hip joint; 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: [Presence of left artificial hip joint] Onset: 1 05-21-2023 Chronic Other connective tissue disease (3 sources) Presence of right artificial hip joint; 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: [Total hip replacement Prosthesis] Chronic Other connective tissue disease (1 source) History of total hip arthroplasty; 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: [Presence of unspecified artificial hip joint] 04-25-2024 Chronic Other connective tissue disease (1 source) Presence of unspecified artificial hip joint; 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: [Hip joint replacement] 04-25-2024 Chronic Other connective tissue disease (20 sources) Trochanteric bursitis of right hip; 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: [Trochanteric bursitis, right hip] Episodic Other connective tissue disease (20 sources) Trochanteric bursitis of left hip; 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: [Trochanteric bursitis, left hip] Episodic Other connective tissue disease (2 sources) Myalgia, unspecified site; 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: [Myalgia and myositis, unspecified] 05-10-2024 Episodic Other connective tissue disease (1 source) Pain in right arm; 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: [Pain in right arm] 05-27-2024 Episodic Other diseases of bladder and urethra (6 sources) Urethral caruncle; 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: [Urethral caruncle] Onset: Episodic Other diseases of bladder and urethra (2 sources) Polyp of urethra 03-01-2024 Episodic Other diseases of veins and lymphatics (8 sources) Venous insufficiency of leg; 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: [Venous insufficiency (chronic) (peripheral)] 12-23-2023 Episodic Other diseases of veins and lymphatics (9 sources) Venous insufficiency (chronic) (peripheral); 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: [Venous (peripheral) insufficiency, unspecified] 12-24-2023 Episodic Other female genital disorders (3 sources) Noninflammatory disorder of the vagina; 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: [Other specified noninflammatory disorders of vagina] Episodic Other gastrointestinal disorders (1 source) Diarrhea, unspecified Episodic Other inflammatory condition of skin (6 sources) Lichen simplex chronicus; 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: [Lichen simplex chronicus] 02-08-2024 Episodic Other injuries and conditions due to external causes (3 sources) History of fall; 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: [History of falling] Episodic Other lower respiratory disease (9 sources) Dyspnea; 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: [Other respiratory abnormalities] 11-10-2023 Episodic Other lower respiratory disease (4 sources) Shortness of breath; 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: [Shortness of [...] conditions (not mental disorders or infectious disease) (20 sources) Encounter for screening mammogram for malignant neoplasm of breast; 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: [Encounter for screening for malignant neoplasm of cervix] Onset: 2 Episodic Peripheral and visceral atherosclerosis (20 sources) Peripheral vascular disease; 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: [Peripheral vascular disease, unspecified] Chronic Prolapse of female genital organs (11 sources) Cystocele; 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: [Cystocele, unspecified] Onset: 4 Chronic Rehabilitation care; fitting of prostheses; and adjustment of devices (2 sources) Patient encounter status; 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: [Encounter for fitting and adjustment of other specified devices] 05-18-2024 Chronic Residual codes; unclassified (3 sources) Preventive procedure; 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: [Encounter for other specified prophylactic measures] Episodic Residual codes; unclassified (3 sources) Localized edema; 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: [Localized edema] Episodic Residual codes; unclassified (2 sources) Never smoked tobacco; 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: [Other specified health status] Onset: 4 01-12-2024 Episodic Residual codes; unclassified (2 sources) Other specified health status; 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: [Other specified health status] Onset: 4 Episodic Residual codes; unclassified (1 source) Pain, unspecified; 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: [Pain, unspecified] Onset: 4 Episodic Spondylosis; intervertebral disc disorders; other back [...] Unclassified (1 source) Athscl heart disease of [place] coronary artery w/o ang pctrs / I25.10(ICD-9) Onset: 7 Unclassified (1 source) Family hx of ischem heart dis and oth dis of the circ sys / Z82.49(ICD-9) Onset: 7 Unclassified (1 source) Other fatigue / R53.83(ICD-9) Onset: 7 Unclassified (1 source) Pure hypercholesterolemia, unspecified / E78.00(ICD-9) Onset: 7 Unclassified (1 source) Coronary angioplasty status / Z98.61(ICD-9) Onset: 7 Unclassified (2 sources) Drug therapy finding 03-01-2024 Viral infection (6 sources) Disease caused by 2019-nCoV; 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: [COVID-19] 04-12-2024 Episodic Past or Other Problems Problem Classification Problem Date Documented Da te Episodic/Chronic Chronic kidney disease (5 sources) Chronic kidney disease Coronary atherosclerosis and other heart disease (4 sources) Presence of coronary angioplasty implant and graft; 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: [Percutaneous transluminal coronary angioplasty status] Onset: 06-15-2023 01-14-2023 Episodic Esophageal disorders (2 sources) Esophageal disorders Heart valve disorders (20 sources) Systolic murmur; 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: [Undiagnosed cardiac murmurs] Onset: 05-19-2023 05-19-2023 Episodic Malaise and fatigue (13 sources) Fatigue; 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: [Other malaise and fatigue] Onset: 11-30-2023 10-20-2023 Episodic Occlusion or stenosis of precerebral arteries (6 sources) Occlusion and stenosis of multiple and bilateral cerebral arteries; 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: [Occlusion and stenosis of bilateral carotid arteries] Resolved: 05-16-2021 Chronic Other bone disease and musculoskeletal deformities (8 sources) Osteopenia; 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: [Other specified disorders of bone density and structure, unspecified site] Onset: 06-06-2016 05-21-2023 Episodic Other connective tissue disease (12 sources) Ischial bursitis ; 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: [Other bursitis of hip, unspecified hip] Onset: 07-07-2019 05-08-2020 Episodic Other non-traumatic joint disorders (13 sources) Hip pain; 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: [Pain in unspecified hip] Onset: 12-18-2009 12-18-2009 Episodic Other non-traumatic joint disorders (8 sources) Pain of right wrist; 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: [Pain in right wrist] Onset: 08-28-2023 08-28-2023 Episodic Other nutritional; endocrine; and metabolic disorders [...] smoker] Unclassified (1 source) Polyuria R35.89 Unclassified (13 sources) Onset: 06-15-2023 06-15-2023 Unclassified (1 source) Acute right-sided low back pain without sciatica M54.50 Results Test Name Value Interpretation Reference Range Facility MR LUMBAR SPINE WO CONTRASTo n 05-17-2024 MR LUMBAR SPINE WO CONTRAST 05/17/2024 9:58 AM MR - MRI LUMBAR SPINE WO CONTRAST Reason for study: Chronic low back pain, radiates down right leg Technical: Multi planar T1, fast spin echo and Fluid sensitive sequences are obtained through the lumbar spine. Contrast: None Prior comparative studies: 04/23/2018 Findings: Alignment: There is 9 mm of anterior listhesis of L4 on L5, unchanged. There is 6 mm of anterior listhesis of L5 on S1, unchanged. There is 6 mm of retrolisthesis of L3 on L4, unchanged. Vertebral heights are maintained. Bone Marrow: Normal throughout. Conus Medullaris: Intact and normal in position. Retroperitoneum: Visualized portions appear clear. T12-L1: Unremarkable. L1-L2: There is facet and endplate hypertrophy. There is a broad-based disc bulge slightly asymmetric on the left. These findings produce severe left and mild right neural foraminal narrowing. There is mild canal narrowing. L2-L3: There is substantial facet and endplate hypertrophy and loss of disc height. There is a broad-based disc bulge asymmetric on the left. Findings produce moderate to severe left and mild right neural foraminal narrowing. There is mild to moderate canal narrowing. L3-L4: There is facet and endplate hypertrophy. There is a broad-based disc bulge. Findings are asymmetric on the right and produce severe right neural foraminal narrowing. There is moderate left neural foraminal narrowing. There is mild canal narrowing L4-L5: There is facet and endplate hypertrophy. There is a large broad-based disc bulge. Findings are asymmetric on the right where there is severe right neural foraminal narrowing. There is moderate to severe left neural foraminal narrowing. There is mild to moderate canal narrowing. L5-S1: There is facet and endplate hypertrophy asymmetric on the right. There is a mild broad-based disc bulge. There is moderate right and mild left neural foraminal narrowing. There is mild canal narrowing Impression: 1. Grade 1 anterior listhesis with osseous hypertrophy and large broad-based disc bulge asymmetric on the right L4-5. These findings have progressed. 2. Osseous hypertrophy with broad-based disc bulge asymmetric on the right L3-4. These findings have progressed. 3. Osseous hypertrophy with broad-based disc bulge asymmetric on the left L1-2 and L2-3. These findings have progressed somewhat. 4. Osseous hypertrophy with broad-based disc bulge asymmetric on the right L5-S1. This appearance is similar to the prior study. Electronically Signed Anson Waddell M.D. 2024-05-17 10:05:31 Normal Not Available Comment on above: Order Comment: MRI l umbar spine w/o. [facility] Panel Informationon 05-10 Aidan Suazo DO 05/10/2024 5:02 PM Trigger Point Injection ([place] [address] [place] [address]): right gluteus willian on 05/10/2024 1:50 PM Indications: pain Details: 21 G needle Medications: 40 mg methylPREDNISolone acetate 40 MG/ML Outcome: tolerated well, no immediate complications Procedure, treatment alternatives, risks and benefits explained, specific risks discussed. [facility] - Chemistry and C hemistry - challengeon 04-25-2024 Bilirubin Ql (U) Negative [facility] Glucose (U) [Mass/Vol] Negative [facility] Ketones Ql (U) 1.005 [facility] pH (U) 5.0 [pH] [facility] Specific gravity (U) [Rel density] 1.010 [facility] Urobilinogen (U) [Mass/Vol] 0.2 mg/dL [facility] Laboratory - Specimen inform ationon 04-25-2024 Appearance (U) cloudy [facility] Color (U) yellow [facility] - Urinalysison Leukocyte esterase Test strip Ql (U) moderate [facility] Nitrite Ql (U) Negative [facility] Protein Ql (U) trace [facility] No Panel Informationon 04-25 Urine Occult Blood 9.0 [facility] Activated partial thrombopla stin time (aPTT) in platelet poor plasma by coagulation aon 04-07-2024 aPTT Coag (PPP) [Time] 26.5 [facility] 22[facility]3-36.[facility] Bas[facility] Auto (Bld) [#/Vol] on 04-07-2024 Basophils (Bld) [#/Vol] 0.0 10 3/uL 0.0-0.1 [facility] Basophils/100 WBC Auto (Bld) on 04-07-2024 Basophils/100 WBC (Bld) 0.6 % 0.2-2.0 [facility] Eosinophils/100 WBC Auto (Bl d)on 04-07-2024 Eosinophils/100 WBC (Bld) 5.6 % 0.9-7.0 [facility] Erythrocyte distribution wid th Auto (RBC) [Ratio]on 04-07-2024 Erythrocyte distribution width (RBC) [Ratio] 13.7 % 11.0-15.0 [facility] Estimated glomerular filtrat ion rate (GFR) non- Americanon 04-07-2024 GFR/1.73 sq M.predicted among non-blacks MDRD (S/P/Bld) [Vol rate/Area] mL/min/{1.73_m2} >=60 [facility] Hematocrit Auto (Bld) [Volum e fraction]on 04-07-2024 Hematocrit (Bld) [Volume fraction] 35.3 % Low 36.0-48.0 [facility] Hemoglobin [Mass/volume] in Bloodon 04-07-2024 Hemoglobin (Bld) [Mass/Vol] 11.8 g/dL Low 12.0-16.0 [facility] INR in Platelet poor plasma by Coagulation assayon 04-07-2024 INR Coag (PPP) [Relative time] 0.96 {INR} [facility] Comment on above: DESIRED INR:2.0-3.0 CONDITIONS NOT LISTED BELOW2.5-3.5 FOR PROSTHETIC HEART VALVE REPLACEMENT2.5-3.5 [facility]BOSIS Laboratory - Chemistry and C hemistry - challengeon 04-07-2024 Calcium [Mass/Vol] 8.9 mg/dL 8.5-10.1 [facility] Chloride [Moles/Vol] 106 mmol/L 98-107 [facility] CO2 [Moles/Vol] 26.6 mmol/L 21.0-32.0 [facility] Creatinine [Mass/Vol] 0.81 mg/dL 0.55-1.02 [facility] GFR/1.73 sq M.predicted MDRD (S/P/Bld) [Vol rate/Area] mL/min/{1.73_m2} >=60 [facility] Glucose [Mass/Vol] 107 mg/dL High 74-106 [facility] Potassium [Moles/Vol] 4.1 mmol/L 3.5-5.1 [facility] Sodium [Moles/Vol] 141 mmol/L 136-145 [facility] Urea nitrogen [Mass/Vol] 16.0 mg/dL 7.0-18.0 [facility] Urea nitrogen/Creatinine [Mass ratio] 19.8 mg/mg [facility] Laboratory - Hematology and Cell countson 04-07-2024 Immature granulocytes/100 WBC (Bld) 0.4 % 0.0-0.5 [facility] Leukocytes [#/volume] correc law for nucleated erythrocytes in Blood by Automated counon 04-07-2024 WBC corrected for nucl RBC Auto (Bld) [#/Vol] 5.0 10 3/uL 4.0-11.0 [facility] Lymphocytes Auto (Bld) [#/Vo l]on 04-07-2024 Lymphocytes (Bld) [#/Vol] 1.5 10 3/uL 1.2-3.8 [facility] Lymphocytes/100 WBC Auto (Bl d)on 04-07-2024 Lymphocytes/100 WBC (Bld) 29.5 % 20.5-60.0 [facility] MCH Auto (RBC) [Entitic mass ]on 04-07-2024 MCH (RBC) [Entitic mass] 31.7 pg 26.7-34.0 [facility] MCHC Auto (RBC) [Mass/Vol]on 04-07-2024 MCHC (RBC) [Mass/Vol] 33.4 g/dL 29.9-35.2 [facility] MCV Auto (RBC) [Entitic vol] on 04-07-2024 MCV (RBC) [Entitic vol] 94.9 fL 81.0-99.0 [facility] Monocytes Auto (Bld) [#/Vol] on 04-07-2024 Monocytes (Bld) [#/Vol] 0.5 10 3/uL 0.3-0.8 [facility] Monocytes/100 WBC Auto (Bld) on 04-07-2024 Monocytes/100 WBC (Bld) 10.2 % 1.7-12.0 [facility] Neutrophils Auto (Bld) [#/Vo l]on 04-07-2024 Neutrophils (Bld) [#/Vol] 2.7 10 3/uL 1.4-6.5 [facility] Neutrophils/100 WBC Auto (Bl d)on 04-07-2024 Neutrophils/100 WBC (Bld) 53.7 % 43.0-75.0 [facility] No Panel Informationon 04-07 Eosinophils # (Auto) 0.3 10 3/uL 0.0-0.7 [facility] Immature Granulocyte # (Auto) 0.02 10 3/uL 0.00-0.03 [facility] Platelet mean volume Auto (B ld) [Entitic vol]on 04-07-2024 Platelet mean volume (Bld) [Entitic vol] 9.7 fL 9.5-13.5 [facility] Platelets Auto (Bld) [#/Vol] on 04-07-2024 Platelets (Bld) [#/Vol] 158 10 3/uL 150-450 [facility] Prothrombin time (PT)on PT Coag (PPP) [Time] 10.2 s 9.0-11.6 [facility] RBC Auto (Bld) [#/Vol]on RBC (Bld) [#/Vol] 3.72 10 6/uL Low 4.20-5.40 [facility] Serum or plasma anion gap de terminationon 04-07-2024 Anion gap [Moles/Vol] 12.5 mmol/L [facility] Ambulatory Visit Summaryon 0 03-01-2024 Ambulatory Visit Summary Ambulatory Visit Summary ATIYA JHA :1940 Visit Date:03/01/2024 Ambulatory Visit Instructions Your Diagnosis Urethral polyp Cystocele with rectocele Uterine prolapse Urge incontinence History of UTI Anticoagulated Your Care Team Attending Physician - SYL SAMS, Jerson Santiago Primary Care Physician - DANIS BARRETO DO This Is Your Medications List ciprofloxacin (Cipro 500 mg Tab) Contact prescribing physician if questions or concerns alendronate (Fosamax 70 mg Tab) aspirin (aspirin 81 mg oral capsule) atorvastatin (atorvastatin 80 mg Tab) cholecalciferol (Vitamin D3) hydrochlorothiazide (hydrochlorothiazide 25 mg Tab) omeprazole (Prilosec) telmisartan (Micardis 20 mg oral tablet) ticagrelor (Brilinta (ticagrelor) 90 mg oral tablet) Procedures Performed Cystoscopy (03/01/2024), Fitting of pessary (02/11/2024), Abdominoplasty, Blepharoplasty, Cardiac catheterization, Cataract surgery, Total replacement of hip. Discharge Vitals Temperature (Temporal Artery) 36 ?C Heart Rate (Peripheral) 62 Respiratory Rate 18 Blood Pressure 126/66 Height 165 cm Height 65 in Weight 65 kg Weight 143 lb BMI 23.88 What to do next You Need to Schedule the Following Appointments Follow Up with SYL SAMS, Jerson Santiago, [place] When: Where: [facility] [address] , [place] [address]- Medications What How Much When Instructions Unchanged ciprofloxacin (Cipro 500 mg Tab) 1 Tablets By Mouth Every day Take 1 tablet the day before the procedure and 1 tablet after the procedure Unchanged alendronate (Fosamax 70 mg Tab) By Mouth Every week Contact prescribing physician if questions or concerns Unchanged aspirin (aspirin 81 mg oral capsule) By Mouth Every 24 hours Contact prescribing physician if questions or concerns Unchanged atorvastatin (atorvastatin 80 mg Tab) Contact prescribing physician if questions or concerns Unchanged cholecalciferol (Vitamin D3) Contact prescribing physician if questions or concerns Unchanged hydrochlorothiazide (hydrochlorothiazide 25 mg Tab) Contact prescribing physician if questions or concerns Unchanged omeprazole (Prilosec) By Mouth Every day Contact prescribing physician if questions or concerns Unchanged telmisartan (Micardis 20 mg oral tablet) By Mouth Every day Contact prescribing physician if questions or concerns Unchanged ticagrelor (Brilinta (ticagrelor) 90 mg oral tablet) Contact prescribing physician if questions or concerns Medications and Immunizations Administered Given lidocaine Top 2% Gel w/Appl 6 mL, 6 mL, Topical. For: Allergies No Known Medication Allergies Problems Ongoing - Any problem that you are currently receiving treatment for. Anemia Anticoagulated Aortic valve stenosis Arteriosclerotic vascular disease Benign essential hypertension Congestive heart failure stage C Cystocele with rectocele Gastro-esophageal reflux disease with esophagitis History of UTI Hypercholesterolemia Hyperlipidemia Hypervolemia Lichen simplex chronicus Urethral caruncle Urethral polyp Urge incontinence Uterine prolapse Patient Survey You may receive a survey via text or e-mail asking about your office visit. Please share your experience with us by completing your survey. We appreciate your feedback and thank you for choosing us for your care. Education Materials Pelvic Organ Prolapse Pelvic organ prolapse is a condition in women that involves the stretching, bulging, or dropping of pelvic organs into an abnormal position, past the opening of the vagina. It happens when the muscles and tissues that surround and support pelvic structures become weak or stretched. Pelvic organ prolapse can involve the: ? Vagina (vaginal prolapse). ? Uterus (uterine prolapse). ? Bladder (cystocele). ? Rectum (rectocele). ? Intestines (enterocele). When organs other than the vagina are involved, they often bulge into the vagina or protrude from the vagina, depending on how severe the prolapse is. What are the causes? This condition may be caused by: ? , labor, and childbirth. ? Past pelvic surgery. ? Lower levels of the hormone estrogen due to menopause. ? Consistently lifting more than 50 lb (23 kg). ? Obesity. ? Long-term difficulty passing stool (chronic constipation). ? Long-term, or chronic, cough. ? Fluid buildup in the abdomen due to certain conditions. What are the signs or symptoms? Symptoms of this condition include: ? Leaking a little urine (loss of bladder control) when you cough, sneeze, strain, and exercise (stress incontinence). This may be worse immediately after childbirth. It may gradually improve over time. ? Feeling pressure in your pelvis or vagina. This pressure may increase when you cough or when you are passing stool. ? A bulge that protrudes from the opening of your vag (more content not included)... Normal [facility] Urology Office/Clinic Noteon 03-01-2024 Urology Office/Clinic Note Urology Office/Clinic Note Chief Complaint Cysto/Pelvic exam HPI Staff AG pt here for cysto w/ pelvic exam due to urethral caruncle. Abx taken History of Present Illness Tests reviewed: reviewed I have reviewed the previous health record information and history for this patient from [facility]. I have reviewed and verified the staff HPI to be accurate for this encounter. Review of Systems PHQ Score Initial Depression Screen Score: 0 SCORE ROS - Provider Constitutional: denies weight loss, denies hot flashes. Eyes: denies eye problems. Gastrointestinal: denies nausea, denies vomiting. Cardiovascular: denies chest pain or angina. Integumentary: no dryness Musculoskeletal: denies musculoskeletal symptoms. ENMT: denies otolaryngeal symptoms. Respiratory: no shortness of breath. Heme/Lymph: denies easy bleeding tendency, denies easy bruising tendency. Psychiatric: no confusion, no anxiety. Genitourinary: See HPI. Physical Exam Vitals & Measurements T: 36 ?C(Temporal Artery) HR: 62(Peripheral) RR: 18 BP: 126/66 HT: 65 in HT: 165 cm WT: 65 kg WT: 143 lb BMI: 23.88 General Appearance: alert , no acute distress, well nourished, well developed female. Genitourinary: bladder nonpalpable, no flank pain. Procedure Operative Information Anesthesia Type: Local Procedure: Local Cystoscopy Complications: None Surgical risks, benefits, details of the procedure have been explained to the patient. Full informed consent has been obtained. Intraoperative Information Prepped: Patient is brought back to the endoscopy suite. Patient is placed in modified dorso/lithotomy position. Patient prepped in the usual fashion with Betadine solution. 2% Xylocaine Jelly is placed per Urethra. After waiting several minutes, the Cystoscope is introduced. The Urethra is: _ ~3 cm urethral polyp which appears to be urethral prolapse. The Bladder: _ No tumors or stones, Trabeculated: Moderate (2) The Ureteral orifices: Show efflux of clear urine Specimens Removed: None Pt has a pessary in. Removal: Cystoscope is removed. The patient tolerated it well. Postoperative Information Patient is discharged home with antibiotic coverage. Follow up arranged. Assessment/Plan Last seen by AG. 1. Urethral polyp (N36.2: Urethral caruncle) 01/29/[address] Miguel - urethral meatus caruncle present [1]. Pt had IO cysto, pelvic exam today due to urethral caruncle wo complications. See procedure section. -Will schedule excision of urethral polyp. Risks and Benefits were discussed with the patient. These include bleeding, infection, pain, and need for additional procedures. Pre-op consent reviewed with and obtained from patient. Order General anesthesia. 2. Cystocele with rectocele (N81.10: Cystocele, unspecified) 01/29/[address] Miguel - Grade 4 cystocele, Grade 2 rectocele [1]. Had pessary fitted by Dr Miguel on 02/11/24. See procedure section. 3. Uterine prolapse (N81.4: Uterovaginal prolapse, unspecified) 01/29/[address] Miguel - Grade 1 [2]. 4. Urge incontinence (N39.41: Urge incontinence) Not taking any bladder meds. 5. History of UTI (Z87.440: Personal history of urinary (tract) infections) 01/28/28 >100k E. Coli [3] 02/08/24 UA small blood [4] 6. Anticoagulated (Z79.01: long term (current) use of anticoagulants) Pt recently had [place] with heart stents. She finished taking Brillinta at the end of January. She is taking daily baby ASA. [5] Follow-up With When Contact Information SYL SAMS, Jerson Santiago, URL [facility] [address], [place] [id number]- Additional Instructions: schedule excision of urethral polyp Patient Education Pelvic Organ Prolapse I, Romelia Candelario, personally scribed for Dr. Streeter on 03/01/2024 14:46:20. . Documentation recorded by the scribe, Romelia Candelario, accurately reflects the services(s) I performed and decisions made by me. Authenticated by Dr. Streeter on 03/01/2024 14:50:21. Problem List/Past Medical History Ongoing Anemia Anticoagulated Aortic valve stenosis Arteriosclerotic vascular disease Benign essential hypertension Congestive heart failure stage C Cystocele with rectocele Gastro-esophageal reflux disease with esophagitis History of UTI Hypercholesterolemia Hyperlipidemia Hypervolemia Lichen simplex chronicus Urethral caruncle Urethral polyp Urge incontinence Uterine prolapse Historical No qualifying data Procedure/Surgical History Cystoscopy (03/01/2024), Fitting of pessary (02/11/2024), Abdominoplasty, Blepharoplasty, Cardiac catheterization, Cataract surgery, Total replacement of hip. Medications aspirin 81 mg oral capsule, Oral, q24hr atorvastatin 80 mg Tab Brilinta (ticagrelor) 90 mg oral tablet Cipro 500 mg Tab, 500 mg= 1 tab(s), Oral, Daily Fosamax 70 mg Tab, Oral, qWeek hydrochlorothiazide 25 mg Tab Mi (more content not included)... Normal [facility] Comment on above: Result Comment: Elec tronically Signed By: Jerson STREETER MD R\.br\Date and Time Signed: 03/01/24 14:50 EDT\.br\Electronically Co-Signed By: Romelia Candelario\.br\Date and Time Co-Signed: 03/01/24 14:46 EDT Urine Cultureon 02-24-2024 Bacteria identified Cx Nom (U) No Growth 2 Days PERFORMED BY: [place] [address] PATHOLOGIST [employer]AREHOUSE SORTER JAYDE CARDOZA M.D. Normal [facility] Comment on above: Performed By: #### C UU #### [address] Urine culture routineOrdered By: Jordan Miguel on 02-24-2024 Bacteria identified Cx Nom (U) No Growth 2 Days [facility] Ambulatory Visit Summaryon 0 02-08-2024 Ambulatory Visit Summary Ambulatory Visit Summary ATIYA JHA :1940 Visit Date:02/08/2024 Ambulatory Visit Instructions Your Diagnosis Cystocele with rectocele Uterine prolapse Urinary incontinence Urethral caruncle History of UTI Anticoagulated Rectocele Your Care Team Attending Physician - Allison MALONE, Antonina Majano Primary Care Physician - DANIS BARRETO DO This Is Your Medications List Contact prescribing physician if questions or concerns alendronate (Fosamax 70 mg Tab) aspirin (aspirin 81 mg oral capsule) atorvastatin (atorvastatin 80 mg Tab) cholecalciferol (Vitamin D3) hydrochlorothiazide (hydrochlorothiazide 25 mg Tab) omeprazole (Prilosec) telmisartan (Micardis 20 mg oral tablet) ticagrelor (Brilinta (ticagrelor) 90 mg oral tablet) Procedures Performed Abdominoplasty, Blepharoplasty, Cardiac catheterization, Cataract surgery, Total replacement of hip. Discharge Vitals Heart Rate (Peripheral) 60 Blood Pressure 143/84 Height 165 cm Height 65 in Weight 65 kg Weight 143 lb BMI 23.88 What to do next You Need to Schedule the Following Appointments Follow Up with SYL SAMS, ELIZABETH Lara When: Comments: our personnel scheduler will be calling you to schedule cysto Where: [address] [place] [address]- Medications What How Much When Instructions Unchanged alendronate (Fosamax 70 mg Tab) Every week Contact prescribing physician if questions or concerns Unchanged aspirin (aspirin 81 mg oral capsule) Every 24 hours Contact prescribing physician if questions or concerns Unchanged atorvastatin (atorvastatin 80 mg Tab) Contact prescribing physician if questions or concerns Unchanged cholecalciferol (Vitamin D3) Contact prescribing physician if questions or concerns Unchanged hydrochlorothiazide (hydrochlorothiazide 25 mg Tab) Contact prescribing physician if questions or concerns Unchanged omeprazole (Prilosec) Every day Contact prescribing physician if questions or concerns Unchanged telmisartan (Micardis 20 mg oral tablet) Every day Contact prescribing physician if questions or concerns Unchanged ticagrelor (Brilinta (ticagrelor) 90 mg oral tablet) Contact prescribing physician if questions or concerns Allergies No Known Medication Allergies Problems Ongoing - Any problem that you are currently receiving treatment for. Anemia Aortic valve stenosis Arteriosclerotic vascular disease Benign essential hypertension Congestive heart failure stage C Gastro-esophageal reflux disease with esophagitis Hypercholesterolemia Hyperlipidemia Hypervolemia Lichen simplex chronicus Patient Survey You may receive a survey via text or e-mail asking about your office visit. Please share your experience with us by completing your survey. We appreciate your feedback and thank you for choosing us for your care. Education Materials Pelvic Organ Prolapse Pelvic organ prolapse is a condition in women that involves the stretching, bulging, or dropping of pelvic organs into an abnormal position, past the opening of the vagina. It happens when the muscles and tissues that surround and support pelvic structures become weak or stretched. Pelvic organ prolapse can involve the: ? Vagina (vaginal prolapse). ? Uterus (uterine prolapse). ? Bladder (cystocele). ? Rectum (rectocele). ? Intestines (enterocele). When organs other than the vagina are involved, they often bulge into the vagina or protrude from the vagina, depending on how severe the prolapse is. What are the causes? This condition may be caused by: ? , labor, and childbirth. ? Past pelvic surgery. ? Lower levels of the hormone estrogen due to menopause. ? Consistently lifting more than 50 lb (23 kg). ? Obesity. ? Long-term difficulty passing stool (chronic constipation). ? Long-term, or chronic, cough. ? Fluid buildup in the abdomen due to certain conditions. What are the signs or symptoms? Symptoms of this condition include: ? Leaking a little urine (loss of bladder control) when you cough, sneeze, strain, and exercise (stress incontinence). This may be worse immediately after childbirth. It may gradually improve over time. ? Feeling pressure in your pelvis or vagina. This pressure may increase when you cough or when you are passing stool. ? A bulge that protrudes from the opening of your vagina. ? Difficulty passing urine or stool. ? Pain in your lower back. ? Pain or discomfort during sex, or decreased interest in sex. ? Repeated bladder infections (urinary tract infections). ? Difficulty inserting a tampon. In some people, this condition causes no symptoms. How is this diagnosed? This condition may be diagnosed based on a vaginal and rectal exam. During the exam, you may be asked to cough and strain while you are lying down, sitting, and standing up. Your health care pr (more content not included)... Normal [facility] Urology Office/Clinic Noteon 02-08-2024 Urology Office/Clinic Note Urology Office/Clinic Note Chief Complaint new patient HPI Staff 83 year old female here for difficulty urinating Patient just finished a week of antibiotics for a uti yesterday- symptoms have resolved. Positive culture 01/28/24- Greater than 100,000 E-Coli Patient saw Hermilo Laughlin on 01/27 for a follow up to bleeding from her pessary after 2 sizes were trialed. Patient states she did like how the pessary felt but caused the bleeding, she then saw Dr. Miguel on 01/28 where he did confirmed her grade 1 uterine prolapse as well as grade 4 cystocele, grade 2 rectocele. Patient is trying Estrace cream for 2 weeks 1x a night right now with a few days left and has not noticed a difference. Per Dr. Miguel's last note patient is to follow up in 2 weeks to get fitted for another pessary and to discuss if the Estrace cream helped her caruncle. Dysuria: no Incomplete bladder emptying: mild- pessary Hematuria: no Frequency: q2-3hrs Urgency: severe Nocturia: 1x a night Stream: slower stream Leaking: randomly throughout the day Post void dripping: no Wearing pads/ Depends: wears a liner changes several times a day Urge incontinence: mild Stress incontinence: no Incontinence without Sensory Awareness: no Abdominal pain: no Flank pain: no Sexual complaints: no History of Present Illness Staff HPI reviewed and agree. Review of Systems PHQ Score Initial Depression Screen Score: 0 SCORE no fever, chills, malaise, myalgia. no rash/lesions. no chest pain, palpitations, or SOB. no abdominal pain, nausea, vomiting. 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 Pt is here today with her daughter, Cheyenne. 1. Cystocele with rectocele (N81.10: Cystocele, unspecified) 01/29/[address] Miguel - Grade 4 cystocele, Grade 2 rectocele Pt seen by Dr. Hermilo Laughlin on 01/28/24 for pessary maintenance. Pt has had [address] Laughlin which helped her symptoms but caused bleeding. Dr. Laughlin referred patient to Dr. Miguel who started patient on estrogen cream x2 weeks to help prepare the vaginal lining for pessary placement. Pt has an appointment with Dr. Miguel this in hopes to place pessary without complications. Per Dr. Miguel's note, if pessary does not help symptoms or pt experiences bleeding, pt to consider surgical intervention. Pt does wish to use pessary if able and would like to avoid surgery. -F/U with Dr. Miguel this -Call our office with update regarding treatment plan Ordered: E&M of New Patient Moderate 45-59 Min 95740 Urology Procedure Order 2. Uterine prolapse (N81.4: Uterovaginal prolapse, unspecified) 01/29/[address] Miguel - Grade 1 -See #1 Ordered: E&M of New Patient Moderate 45-59 Min [id number] Urology Procedure Order 3. Urinary incontinence (R32: Unspecified urinary incontinence) BBSQ 28 Pt reports urge incontinence which has worsened over the last year. She is using about 2-3 pads per day. -See #1 Ordered: E&M of New Patient Moderate 45-59 Min 85289 Urnls Dip Stick Auto w/o Microscopy POC [id number] Urology Procedure Order 4. 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 Miguel - urethral meatus caruncle present Discussed with patient findings per Dr. Miguel. Pt and daughter aware that this will need looked into further with cystoscopy and possible biopsy. Pt agreeable to move forward with Dr. Streeter as her is already a patient of his. -Schedule cysto with Dr. Streeter Ordered: E&M of New Patient Moderate 45-59 Min 41725 Urology Procedure Order 5. History of UTI (Z87.440: Personal history of urinary (tract) infections) 01/28/28 >100k E. Coli UA today small blood Pt denies recurrent infections, reports maybe 1-2 per year. Advised patient this is normal for her age. Pt reports that she was very confused regarding recent urine culture. After long discussion with patient and her daughter, it was decided that Dr. Laughlin started patient on Keflex QID x10 days but did not advise patient that she was sending this into pharmacy, pt just picked it up when the pharmacy called and started taking it. Pt did not have relief of her dysuria so patient called her PCP office (Dr. Barreto) who took a UA and started patient on Macrobid. Pt was taking both medications concurrently and started having itching. She stopped the Keflex after about 4-5 days and finished the entire 5 course of Macrobid yesterday. Pt asymptomatic today. -Advised patient to call our office for an (more content not included)... Normal [facility] Comment on above: Result Comment: Elec tronically Signed By: Allison MALONE, Antonina Majano\.br\Date and Time Signed: 02/08/24 11:51 EDT Laboratory - Chemistry and C hemistry - challengeon 01-29-2024 Bilirubin Ql (U) Negative [facility] Glucose (U) [Mass/Vol] Negative [facility] Ketones Ql (U) Negative [facility] pH (U) 5 [pH] [facility] Specific gravity (U) [Rel density] 1.005 [facility] Urobilinogen (U) [Mass/Vol] 0.2 mg/dL [facility] Laboratory - Specimen inform ationon 01-29-2024 Appearance (U) cloudy [facility] Color (U) lightyellow [facility] Laboratory - Urinalysison Leukocyte esterase Test strip Ql (U) +++ [facility] Nitrite Ql (U) Positive [facility] Protein Ql (U) Negative [facility] No Panel Informationon 01-28 Urine Occult Blood +++ [facility] ECH echo transthoracicon [facility] echo transthoracic [facility] Main [place] [address] [place], [place] [id number] Echocardiogram Signed Patient: Atiya Jha MR#: [id number] : 1940 Acct:[id number] Age/Sex: 83 / F ADM Date: 01/07/24 Loc: Room: Type: [facility] Attending Dr: Danis Barreto DO Ordering Provider: Danis Barreto DO Date of Service: 01/07/2401/24/747 ECH/ECH echo transthoracic: I50.33 - Acute on chronic diastolic (congestive) heart fa... Copies to: DO Xiomara Dean MD Weight: 144 lb Performed By: ANGELA Del Rio BSA: 1.7 m2 BP: 140/69 mmHg HR: 51 Reason For Study: I50.33 - Acute on chronic diastolic (congestive) heart fa... History: HTN, HLD, [place], Stent Interpretation Summary The left ventricular wall motion is normal. Mild concentric left ventricular hypertrophy. Ejection Fraction = 60-65%. A variety of Doppler measurements indicate impaired left ventricular relaxation, which is associated with grade I/IV or mild diastolic dysfunction. The aortic valve maximum pressure gradient is 24 mmHg. The aortic valve mean gradient is 14 mmHg. The aortic valve area is calculated to be 1.5 cm2. There is mild mitral regurgitation. There is mild tricuspid regurgitation. Right ventricular systolic pressure is elevated at 30-40mmHg. Right ventricular systolic pressure is consistent with mild pulmonary hypertension. Compared to prior study, changes are noted. LVEF has improved. Procedure/Quality: A two-dimensional transthoracic echocardiogram with color flow and Doppler was performed. The study was technically good in quality. Left Ventricle: The left ventricular size is normal. Mild concentric left ventricular hypertrophy. Ejection Fraction = 60-65%. A variety of Doppler measurements indicate impaired left ventricular relaxation, which is associated with grade I/IV or mild diastolic dysfunction. The left ventricular wall motion is normal. Left Atrium: The left atrium appears normal in size. Right Atrium: The right atrium appears normal in size. Right Ventricle: The right ventricular size, thickness and function are normal. Aortic Valve: The aortic valve is mildly calcified. The aortic valve maximum pressure gradient is 24 mmHg. The aortic valve mean gradient is 14 mmHg. The aortic valve area is calculated to be 1.5 cm2. No aortic regurgitation is present. Mitral Valve: The mitral valve is normal in structure and function. There is mild mitral regurgitation. Tricuspid Valve: The tricuspid valve is normal in structure and function. There is mild tricuspid regurgitation. Right ventricular systolic pressure is elevated at 30-40mmHg. Right ventricular systolic pressure is consistent with mild pulmonary hypertension. Pulmonic Valve: The pulmonic valve is normal in structure and function. Trace pulmonic valvular regurgitation. Arteries: The aortic root is normal size. Pericardium/Pleura: No pericardial effusion seen. There is no pleural effusion. IVC/Hepatic Veins: The inferior vena cava is normal in size, with a normal collapsibility index. Measurements with Normals IVSd: 1.1 cm (0.7-1.1 cm)LVIDd: 3.9 cm (3.7-5.4 cm) LVPWd: 1.2 cm (0.7-1.1 cm)LVIDs: 2.8 cm (2.3-3.6 cm) LA dimension: 3.3 cm(2.3-4.0 cm)Ao root diam: 2.7 cm(2.0-3.6 cm) Doppler with Normals RVSP(TR): 35.1 mmHg (18-35mmHg) LV V1 max: 116.5 cm/sec (0.7-1.7m/s)MV E max edmar: 89.7 cm/sec(0.8-1.3m/s) MV A max edmar: 119.2 cm/sec(0.0-0.0m/s) MV E/A: 0.75 (<1.5) MMode/2D Measurements Calculations RVDd: 2.6 cm FS: 28.2 % Ao root area: LVOT diam: 2.0 cm TAPSE: 2.4 cm EDV(Teich): 5.7 cm2 LVOT area: 3.1 cm2 RV S Edmar: 65.0 ml 23.8 cm/sec ESV(Teich): 29.1 ml EF(Teich): 55.2 % __ LVLd ap4: 6.9 cm SV(MOD-sp4): LAV(MOD-sp4): LA A2 area: 13.3 cm2 EDV(MOD-sp4): 38.1 ml 26.4 ml 55.3 ml LAV(MOD-sp2): LA A4 area: 12.2 cm2 LVLs ap4: 5.9 cm 38.1 ml LA length (vol): ESV(MOD-sp4): 4.5 cm 17.2 ml LA vol: 31.0 ml EF(MOD-sp4): 68.9 % LA vol index: 18.4 ml/m2 Doppler Measurements Calculations MV dec time: MV V2 max: E/E' lat: 10.3 MV P1/2t max edmar: 0.32 sec 135.7 cm/sec E/E' med: 15.3 98.4 cm/sec MV max PG: MV P1/2t: 101.6 msec 55.0 mmHg MV V2 mean: MVA(P1/2t): 2.2 cm2 79.2 cm/sec MV dec slope: MV mean P.6 cm/sec2 2.9 mmHg MV V2 VTI: 52.8 cm MVA(VTI): 1.8 cm2 __ Ao V2 max: LV V1 max PG: MR max edmar: TV max P.0 mmHg 248.4 cm/sec 5.4 mmHg 370.9 cm/sec Ao max PG: LV V1 mean PG: MR max P.7 mmHg 3.2 mmHg 55.3 mmHg Ao mean PG: LV V1 mean: 14.3 mmHg 84.4 cm/sec Ao V2 mean: LV V1 VTI: 29.7 cm 181.0 cm/sec Ao V2 VTI: 58.3 cm JEANA(I,D): 1.6 cm2 JEANA(V,D): 1.5 cm2 __ TR max edmar: 274.2 cm/sec TR max P.1 mmHg RAP systole: 5.0 mmHg ___ (more content not included)... Normal [facility] Activated partial thrombopla stin time (aPTT) in platelet poor plasma by coagulation aOrdered By: Alexei Stone on 12-23-2023 aPTT Coag (PPP) [Time] 35.0 s 25.1-36.5 [facility] Comment on above: A hematocrit value g reater than 55% may lead to inaccurate results in coagulation testing. Patients having hematocrit values >55% require a special collection tube for coagulation studies. Please contact the laboratory at [phone] for redraw instructions. Alanine aminotransferase [En zymatic activity/volume] in Serum or PlasmaOrdered By: Alexei Stone on 12-23-2023 ALT [Catalytic activity/Vol] 22 U/L Normal 7-52 [facility] Comment on above: Performed By: #### C REAT, BUN, PP, LIPID, LYTES, CBC #### [address] Albumin [Mass/volume] in Ser um or Plasma by Bromocresol green (BCG) dye binding methoOrdered By: Alexei Stone on 12-23-2023 Albumin BCG dye [Mass/Vol] 4.1 g/dL 3.5-5.7 [facility] Alkaline phosphatase [Enzyma tic activity/volume] in Serum or PlasmaOrdered By: Alexei Stone on 12-23-2023 ALP [Catalytic activity/Vol] 50 U/L Normal 34-104 [facility] Comment on above: Performed By: #### C REAT, BUN, PP, LIPID, LYTES, CBC #### [address] Aspartate aminotransferase [ Enzymatic activity/volume] in Serum or PlasmaOrdered By: Alexei Stone on 12-23-2023 AST [Catalytic activity/Vol] 18 U/L Normal 13-39 [facility] Comment on above: Performed By: #### C REAT, BUN, PP, LIPID, LYTES, CBC #### [facility] [address] [place] [address] [place] Automated basophil %Ordered By: Alexei Stone on 12-23-2023 Basophils/100 WBC (Bld) 0.5 % Normal . [facility] Comment on above: Performed By: #### C REAT, BUN, PP, LIPID, LYTES, CBC #### [address] Automated basophil countOrde red By: Alexei Stone on 12-23-2023 Basophils (Bld) [#/Vol] 0.0 10*3/uL Normal 0.0-0.2 [facility] Comment on above: Result Comment: PERF ORMED BY: [place] [address] PATHOLOGIST [employer]HOU[employer] SORTER JAYDE CARDOZA M.D. Performed By: #### C REAT, BUN, PP, LIPID, LYTES, CBC #### [address] Automated blood monocyte cou ntOrdered By: Alexei Stone on 12-23-2023 Monocytes (Bld) [#/Vol] 0.6 10*3/uL Normal 0.0-0.8 [facility] Comment on above: Performed By: #### C REAT, BUN, PP, LIPID, LYTES, CBC #### [address] Automated eosinophil %Ordere d By: Alexei Stone on 12-23-2023 Eosinophils/100 WBC (Bld) 4.1 % Normal . [facility] Comment on above: Performed By: #### C REAT, BUN, PP, LIPID, LYTES, CBC #### [address] Automated eosinophil countOr dered By: Alexei Stone on 12-23-2023 Eosinophils (Bld) [#/Vol] 0.3 10*3/uL Normal 0.0-0.45 [facility] Comment on above: Performed By: #### C REAT, BUN, PP, LIPID, LYTES, CBC #### [address] Automated monocyte %Ordered By: Alexei Stone on 12-23-2023 Monocytes/100 WBC (Bld) 10.3 % Normal . [facility] Comment on above: Performed By: #### C REAT, BUN, PP, LIPID, LYTES, CBC #### [address] Automated neutrophil %Ordere d By: Alexei Stone on 12-23-2023 Neutrophils/100 WBC (Bld) 68.9 % Normal . [facility] Comment on above: Performed By: #### C REAT, BUN, PP, LIPID, LYTES, CBC #### [address] BNP ser/plasOrdered By: Liza Stone on 12-23-2023 Natriuretic peptide B (Bld) [Mass/Vol] 495.0 pg/mL High 5-100 [facility] Comment on above: Result Comment: PERF ORMED BY: [place] [address] PATHOLOGIST [employer] SORTER JAYDE CARDOZA M.D. Performed By: #### C REAT, BUN, PP, LIPID, LYTES, CBC #### [address] Basic Metabolic Panelon 12-02 Creatinine Clr Calc Pharmacy 50.37 Normal [facility] Comment on above: Result Comment: PERF ORMED BY: [place] [address] PATHOLOGIST [employer] S[employer]TER JAYDE CARDOZA M.D. Performed By: #### C REAT, BUN, PP, LIPID, LYTES, CBC #### [address] GFR/1.73 sq M.predicted MDRD (S/P/Bld) [Vol rate/Area] mL/min/{1.73_m2} Normal [facility] Comment on above: Performed By: #### C REAT, BUN, PP, LIPID, LYTES, CBC #### [address] Bilirubin Test strip Ql (U)O rdered By: Alexei Stone on 12-23-2023 Bilirubin Ql (U) Negative Negative [facility] Bilirubin.direct [Mass/volum e] in Serum or PlasmaOrdered By: Alexei Stone on 12-23-2023 Bilirubin.direct [Mass/Vol] 0.20 mg/dL High 0.03-0.18 [facility] Bilirubin.total [Mass/volume ] in Serum or PlasmaOrdered By: Alexei Bertha on 12-23-2023 Bilirubin [Mass/Vol] 1.1 mg/dL High 0.3-1.0 [facility] Comment on above: Performed By: #### C REAT, BUN, PP, LIPID, LYTES, CBC #### [facility] [address] [place] [address] [place] Calcium [Mass/volume] in Ser um or PlasmaOrdered By: Alexei Stone on 12-23-2023 Calcium [Mass/Vol] 9.6 mg/dL Normal 8.6-10.3 [facility] Comment on above: Performed By: #### C REAT, BUN, PP, LIPID, LYTES, CBC #### [place] [address] [place] Carbon dioxide, total [Moles /volume] in Serum or PlasmaOrdered By: Alexei Stone on 12-23-2023 CO2 [Moles/Vol] 24.8 mmol/L Normal 21.0-31.0 [facility] Comment on above: Performed By: #### C REAT, BUN, PP, LIPID, LYTES, CBC #### [place] [address] [place] Chloride [Moles/volume] in S katiana or PlasmaOrdered By: Alexei Stone on 12-23-2023 Chloride [Moles/Vol] 108 mmol/L High 98-107 [facility] Comment on above: Performed By: #### C REAT, BUN, PP, LIPID, LYTES, CBC #### [facility] [address] [place] [address] [place] Color of Urine by AutoOrdere d By: Alexei Stone on 12-23-2023 Color (U) Yellow Normal Yellow [facility] Comment on above: Order Comment: Name Collection Type:: Clean-Voided Midstream Performed By: #### U A #### [place] [id number] [place] Complete Blood Count Auto Di ffon 12-23-2023 Mean Corpuscular HGB Conc 34.2 g/dL Normal 32.0-35.0 [facility] Comment on above: Performed By: #### C REAT, BUN, PP, LIPID, LYTES, CBC #### [address] Monocytes/100 WBC (Bld) 18.01 % Normal 0.00-20.00 [facility] Comment on above: Performed By: #### C REAT, BUN, PP, LIPID, LYTES, CBC #### [facility] [address] NRBC% 0.1 /100{WBC} Normal 0-0.5 [facility] Comment on above: Performed By: #### C REAT, BUN, PP, LIPID, LYTES, CBC #### [address] Creatine kinase [Enzymatic a ctivity/volume] in Serum or PlasmaOrdered By: Alexei Stone on 12-23-2023 CK [Catalytic activity/Vol] 99 U/L Normal 30-223 [facility] Comment on above: Performed By: #### C REAT, BUN, PP, LIPID, LYTES, CBC #### [address] Creatinine [Mass/volume] in Serum or PlasmaOrdered By: Alexei Stone on 12-23-2023 Creatinine [Mass/Vol] 0.83 mg/dL Normal 0.60-1.20 [facility] Comment on above: Performed By: #### C REAT, BUN, PP, LIPID, LYTES, CBC #### [address] ECG 12 lead ECGon 12-23-2023 ECG 12 lead ECG [facility] [place] [address] [place] [address] Electrocardiograph Report Signed Patient: Atiya Jha MR#: [id number] : 1940 Acct:[id number] Age/Sex: 83 / F ADM Date: 12/23/23 Loc: ER Room: Type: [facility] ER Attending Dr: Ordering Provider: Alexei Stone DO Date of Service: 12/23/23 ECG/ECG 12 lead ECG: CHEST PAIN Copies to: Test Reason : Blood Pressure : 213/103 mmHG Vent. Rate : 062 BPM Atrial Rate : 062 BPM P-R Int : 194 ms QRS Dur : 082 ms QT Int : 458 ms P-R-T Axes : 062 067 082 degrees QTc Int : 464 ms Normal sinus rhythm Cannot rule out Anterior infarct , age undetermined Abnormal ECG When compared with ECG of 19-NOV-2023 07:58, No significant change was found Confirmed by Alexei Stone DO ([id number]) on 12/23/2023 1:43:01 PM Referred By: Electronically Signed By:Alexei Stone DO Transcribed By: MUS Signed By Alexei Stone DO 4 1343 Normal [facility] Erythrocyte distribution wid th [Ratio] by Automated countOrdered By: Alexei Stone on 12-23-2023 Erythrocyte distribution width (RBC) [Ratio] 14.8 % Normal 11.9-15.3 [facility] Comment on above: Performed By: #### C REAT, BUN, PP, LIPID, LYTES, CBC #### [facility] [address] Erythrocytes [#/volume] in B lood by Automated countOrdered By: Alexei Stone on 12-23-2023 RBC (Bld) [#/Vol] 3.38 10*6/uL Low 3.60-5.00 [facility] Comment on above: Performed By: #### C REAT, BUN, PP, LIPID, LYTES, CBC #### [facility] [address] [place] [id number] [place] Glucose [Mass/volume] in Ser um or PlasmaOrdered By: Alexei Stone on 12-23-2023 Glucose [Mass/Vol] 104 mg/dL High 70-100 [facility] Comment on above: ADA recommended refe rence rangeRandom Glucose Reference Range is dependent on time and content of last meal. Glucose of more than 200 mg/dL in a nonstressed, ambulatory subject supports the diagnosis of Diabetes Mellitus. Result Comment: [facility] Glucose Reference Range is dependent on time and content of last meal. Glucose of more than 200 mg/dL in a nonstressed, ambulatory subject supports the diagnosis of Diabetes Mellitus. ADA recommended reference range Performed By: #### C REAT, BUN, PP, LIPID, LYTES, CBC #### [address] Hematocrit [Volume Fraction] of Blood by Automated countOrdered By: Alexei Stone on 12-23-2023 Hematocrit (Bld) [Volume fraction] 31.8 % Low 34.0-46.4 [facility] Comment on above: Performed By: #### C REAT, BUN, PP, LIPID, LYTES, CBC #### [address] Hemoglobin [Mass/volume] in BloodOrdered By: Alexei Stone on 12-23-2023 Hemoglobin (Bld) [Mass/Vol] 10.9 g/dL Low 11.8-15.4 [facility] Comment on above: Performed By: #### C REAT, BUN, PP, LIPID, LYTES, CBC #### [address] Hepatic Panelon 12-23-2023 Albumin [Mass/Vol] 4.1 g/dL Normal 3.5-5.7 [facility] Comment on above: Performed By: #### C REAT, BUN, PP, LIPID, LYTES, CBC #### [address] Bilirubin,Indirect 0.9 mg/dL Normal [facility] Comment on above: Performed By: #### C REAT, BUN, PP, LIPID, LYTES, CBC #### [address] Bilirubin.indirect [Mass/Vol] 0.20 mg/dL High 0.03-0.18 [facility] Comment on above: Performed By: #### C REAT, BUN, PP, LIPID, LYTES, CBC #### [facility] [address] [place] [id number] [facility] INR in Platelet poor plasma by Coagulation assayOrdered By: Alexei Stone on 12-23-2023 INR Coag (PPP) [Relative time] 1.0 {INR} Normal [facility] Comment on above: INR Therapeutic Rang [...] with mechanical heart valves: 3 - 4.5 Result Comment: INR Therapeutic Range A) Pre- [...] valves: 3 - 4.5 Performed By: #### C REAT, BUN, PP, LIPID, LYTES, CBC #### [facility] [address] [place] [id number] [facility] Ketones Auto test strip (U) [Mass/Vol]Ordered By: Alexei Stone on 12-23-2023 Ketones (U) [Mass/Vol] Negative Negative [facility] Leukocytes [#/volume] correc law for nucleated erythrocytes in Blood by Automated counOrdered By: Alexei Stone on 12-23-2023 WBC corrected for nucl RBC Auto (Bld) [#/Vol] 6.2 10*3/uL 3.8-11.6 [facility] Leukocytes [#/volume] in Blo od by Automated countOrdered By: Alexei Stone on 12-23-2023 WBC (Bld) [#/Vol] 6.2 10*3/uL Normal 3.8-11.6 [facility] Comment on above: Performed By: #### C REAT, BUN, PP, LIPID, LYTES, CBC #### [facility] [address] [place] [address] Lymphocytes [#/volume] in Bl ood by Automated countOrdered By: Alexei Stone on 12-23-2023 Lymphocytes (Bld) [#/Vol] 1.0 10*3/uL Normal 1.00-4.8 [facility] Comment on above: Performed By: #### C REAT, BUN, PP, LIPID, LYTES, CBC #### [address] Lymphocytes/100 leukocytes i n Blood by Automated countOrdered By: Alexei Stone on 12-23-2023 Lymphocytes/100 WBC (Bld) 16.2 % Normal . [facility] Comment on above: Performed By: #### C REAT, BUN, PP, LIPID, LYTES, CBC #### [address] MCH [Entitic mass] by Automa law countOrdered By: Alexei Stone on 12-23-2023 MCH (RBC) [Entitic mass] 32.2 pg Normal 24.7-34.3 [facility] Comment on above: Performed By: #### C REAT, BUN, PP, LIPID, LYTES, CBC #### [address] MCHC Auto (RBC) [Mass/Vol]Or dered By: Alexei Stone on 12-23-2023 MCHC (RBC) [Mass/Vol] 34.2 g/dL 32.0-35.0 [facility] MCV [Entitic volume] by Auto mated countOrdered By: Alexei Stone on 12-23-2023 MCV (RBC) [Entitic vol] 94.2 fL Normal 80-100 [facility] Comment on above: Performed By: #### C REAT, BUN, PP, LIPID, LYTES, CBC #### [address] Monocyte distribution width [Entitic volume] in Blood by AutomatedOrdered By: Alexei Stone on 12-23-2023 Monocyte distribution width Auto (Bld) [Entitic vol] 18.01 % 0.00-20.00 [facility] Neutrophils [#/volume] in Bl ood by Automated countOrdered By: Alexei Stone on 12-23-2023 Neutrophils (Bld) [#/Vol] 4.2 10*3/uL Normal 1.8-7.7 [facility] Comment on above: Performed By: #### C REAT, BUN, PP, LIPID, LYTES, CBC #### [facility] [address] Nitrite Test strip Ql (U)Ord ered By: Alexei Stone on 12-23-2023 Nitrite Ql (U) Negative Negative [facility] No Panel InformationOrdered By: Alexei Stone on 12-23-2023 Estimated GFR (CKD-EPI) > 60.0 mL/Min [facility] Creatinine Clearance (Chem 50.37 [facility] Nucleated erythrocytes [Pres ence] in Blood by Automated countOrdered By: Alexei Stone on 12-23-2023 Nucleated RBC Auto Ql (Bld) 0.1 /100{WBC} 0-0.5 [facility] Partial Thromboplastin Timeo n 12-23-2023 aPTT Coag (Bld) [Time] 35.0 s Normal 25.1-36.5 [facility] Comment on above: Result Comment: A he matocrit value greater than 55% may lead to inaccurate results in coagulation testing. Patients having hematocrit values >55% require a special collection tube for coagulation studies. Please contact the laboratory at [phone] for redraw instructions. PERFORMED BY: [address] [place] [address] PATHOLOGIST [employer] JAYDE CARDOZA M.D. Performed By: #### C REAT, BUN, PP, LIPID, LYTES, CBC #### [facility] [address] [place] [id number] [place] Platelet mean volume [Entiti c volume] in Blood by Automated countOrdered By: Alexei Stone on 12-23-2023 Platelet mean volume (Bld) [Entitic vol] 7.2 fL Normal 6.3-10.7 [facility] Comment on above: Performed By: #### C REAT, BUN, PP, LIPID, LYTES, CBC #### [address] Platelets [#/volume] in Bloo d by Automated countOrdered By: Alexei Stone on 12-23-2023 Platelets (Bld) [#/Vol] 199 10*3/uL Normal 150-450 [facility] Comment on above: Performed By: #### C REAT, BUN, PP, LIPID, LYTES, CBC #### [address] Potassium [Moles/volume] in Serum or PlasmaOrdered By: Alexei Stone on 12-23-2023 Potassium [Moles/Vol] 4.0 mmol/L Normal 3.5-5.1 [facility] Comment on above: Performed By: #### C REAT, BUN, PP, LIPID, LYTES, CBC #### [address] Protein Auto test strip (U) [Mass/Vol]Ordered By: Alexei Stone on 12-23-2023 Protein (U) [Mass/Vol] Negative Negative [facility] Protein [Mass/volume] in Ser um or PlasmaOrdered By: Alexei Stone on 12-23-2023 Protein [Mass/Vol] 6.6 g/dL Normal 6.4-8.9 [facility] Comment on above: Performed By: #### C REAT, BUN, PP, LIPID, LYTES, CBC #### [address] Prothrombin time (PT)Ordered By: Alexei Stone on 12-23-2023 PT Coag (PPP) [Time] 11.7 s Normal 9.0-12.9 [facility] Comment on above: A hematocrit value g reater than 55% may lead to inaccurate results in coagulation testing. Patients having hematocrit values >55% require a special collection tube for coagulation studies. Please contact the laboratory at [phone] for redraw instructions. Result Comment: A he matocrit value greater than 55% may lead to inaccurate results in coagulation testing. Patients having hematocrit values >55% require a special collection tube for coagulation studies. Please contact the laboratory at [phone] for redraw instructions. Performed By: #### C REAT, BUN, PP, LIPID, LYTES, CBC #### [address] Serum globulin measurement b y calculation (mass/volume)Ordered By: Alexei Stone on 12-23-2023 Globulin (S) [Mass/Vol] 2.5 g/dL [facility] Comment on above: Performed By: #### C REAT, BUN, PP, LIPID, LYTES, CBC #### [address] Serum or plasma albumin/glob ulin mass ratioOrdered By: Alexei Stone on 12-23-2023 Albumin/Globulin [Mass ratio] 1.6 {ratio} [facility] Comment on above: Performed By: #### C REAT, BUN, PP, LIPID, LYTES, CBC #### [address] Serum or plasma anion gap de terminationOrdered By: Alexei Stone on 12-23-2023 Anion gap [Moles/Vol] 13.2 mmol/L Normal 6.0-15.0 [facility] Comment on above: Performed By: #### C REAT, BUN, PP, LIPID, LYTES, CBC #### [address] Serum or plasma non-glucuron idated bilirubin measurement (mass/volume)Ordered By: Alexei Stone on 12-23-2023 Bilirubin.indirect [Mass/Vol] 0.9 mg/dL [facility] Sodium [Moles/volume] in Ser um or PlasmaOrdered By: Alexei Stone on 12-23-2023 Sodium [Moles/Vol] 142 mmol/L Normal 136-145 [facility] Comment on above: Performed By: #### C REAT, BUN, PP, LIPID, LYTES, CBC #### [address] Specific gravity Auto test s trip (U) [Rel density]Ordered By: Alexei Stone on 12-23-2023 Specific gravity (U) [Rel density] 1.010 1.001-1.03 0 [facility] Troponin I High Sensitivityo n 12-23-2023 Troponin I High Sensitivity 10.0 pg/mL Normal 0.0-15.0 [facility] Comment on above: Result Comment: PERF ORMED BY: [place] [address] PATHOLOGIST [employer] JAYDE CARDOZA M.D. Performed By: #### C REAT, BUN, PP, LIPID, LYTES, CBC #### [address] Troponin I.cardiac [Mass/vol ume] in Serum or Plasma by Detection limit <= 0.01 ng/Ordered By: Alexei Stone on 12-23-2023 Troponin I.cardiac DL <= 0.01 ng/mL [Mass/Vol] 10.0 pg/mL 0.0-15.0 [facility] Urea nitrogen [Mass/volume] in Serum or PlasmaOrdered By: Alexei Stone on 12-23-2023 Urea nitrogen [Mass/Vol] 15 mg/dL Normal 7-25 [facility] Comment on above: Performed By: #### C REAT, BUN, PP, LIPID, LYTES, CBC #### [address] Urinalysison 12-23-2023 Appearance (U) Clear Normal Clear [facility] Comment on above: Order Comment: Name Collection Type:: Clean-Voided Midstream Performed By: #### U A #### [address] Bilirubin,Urine Negative Normal Negative [facility] Comment on above: Order Comment: Name Collection Type:: Clean-Voided Midstream Performed By: #### U A #### [address] Glucose Ql (U) Normal Normal Normal [facility] Comment on above: Order Comment: Name Collection Type:: Clean-Voided Midstream Performed By: #### U A #### [facility] [address] [place] [address] [place] Ketones Ql (U) Negative Normal Negative [facility] Comment on above: Order Comment: Name Collection Type:: Clean-Voided Midstream Performed By: #### U A #### [address] Leukocyte esterase Test strip Ql (U) Negative Normal Negative [facility] Comment on above: Order Comment: Name Collection Type:: Clean-Voided Midstream Performed By: #### U A #### [place] [address] [place] Nitrite,Urine Negative Normal Negative [facility] Comment on above: Order Comment: Name Collection Type:: Clean-Voided Midstream Performed By: #### U A #### [place] [address] [place] Occult Blood,Urine Negative Normal Negative [facility] Comment on above: Order Comment: Name Collection Type:: Clean-Voided Midstream Result Comment: PERF ORMED BY: [place] [address] PATHOLOGIST [employer] JAYDE CARDOZA M.D. Performed By: #### U A #### [address] Protein,Urine Negative Normal Negative [facility] Comment on above: Order Comment: Name Collection Type:: Clean-Voided Midstream Performed By: #### U A #### [place] [address] [place] Specificy Mcnabb,Urine 1.010 Normal 1.001-1.03 0 [facility] Comment on above: Order Comment: Name Collection Type:: Clean-Voided Midstream Performed By: #### U A #### [place] [address] [place] Urobilinogen,Urine Normal Normal Normal [facility] Comment on above: Order Comment: Name Collection Type:: Clean-Voided Midstream Performed By: #### U A #### [facility] [address] [place] [address] Urine clarity by refractomet ry automatedOrdered By: Alexei Stone on 12-23-2023 Clarity Refractometry automated (U) Clear Clear [facility] Urine glucose measurement by automated test strip (mass/volume)Ordered By: Alexei Stone on 12-23-2023 Glucose Auto test strip (U) [Mass/Vol] Normal mg/dL Normal [facility] Urine hemoglobin detection b y automated test stripOrdered By: Alexei Stone on 12-23-2023 Hemoglobin Auto test strip Ql (U) Negative Negative [facility] Urine leukocyte esterase det ection by automated test stripOrdered By: Aleexi Stone on 12-23-2023 Leukocyte esterase Auto test strip Ql (U) Negative Negative [facility] Urine pH measurement by auto mated test stripOrdered By: Alexei Stone on 12-23-2023 pH (U) 6.0 [pH] Normal 5.0-9.0 [facility] Comment on above: Order Comment: Name Collection Type:: Clean-Voided Midstream Performed By: #### U A #### [facility] [address] [place] [address] Urobilinogen Auto test strip (U) [Mass/Vol]Ordered By: Alexei Stone on 12-23-2023 Urobilinogen (U) [Mass/Vol] Normal mg/dL Normal [facility] XR chest 1V portableon 12-22 XR chest 1V portable [place] [address] XRay Report Signed Patient: Atiya Jha MR#: [id number] : 1940 Acct:[id number] Age/Sex: 83 / F ADM Date: 12/23/23 Loc: ER Room: Type: [facility] ER Attending Dr: Copies to: Alexei Stone DO Ordering Provider: Alexei Stone DO Date of Service: 12/23/23 XR/XR chest 1V portable: CHEST PAIN SINGLE VIEW CHEST CLINICAL HISTORY: Chest heaviness onset yesterday with weakness this morning. Lower extremity edema. COMPARISON: None FINDINGS: Heart appears normal in size. Interstitial changes are noted. No consolidation pneumothorax pleural effusion or free air. XR/XR chest 1V portable IMPRESSION: INTERSTITIAL CHANGES. NO CONSOLIDATION TO SUGGEST PNEUMONIA.. Impression dictated by: Jonas Jaramillo Jr., D.OKamaljit12/23/2023 8:14 AM Dictation Location: [place] [address] Transcribed By: [facility] 12/23/23813 Dictated By: Jonas Jaramillo Jr, DO 12/23/2313 Signed By: 12/23/23813 Normal [facility] Automated urine specific gra vity by refractometryon 11-30-2023 Specific gravity Refractometry automated (U) [Rel density] 1.010 1.005-1.02 5 [facility] Bilirubin Auto test strip (U ) [Mass/Vol]on 11-30-2023 Bilirubin (U) [Mass/Vol] Negative NEGATIVE [facility] Color Auto (U)on 11-30-2023 Color (U) YELLOW YELLOW [facility] Glucose [Mass/volume] in Uri ne by Test stripon 11-30-2023 Glucose Test strip (U) [Mass/Vol] Negative NEGATIVE [facility] Ketones Auto test strip (U) [Mass/Vol]on 11-30-2023 Ketones (U) [Mass/Vol] Negative NEGATIVE [facility] No Panel Informationon 11-29 Urine Microscopic Review NO [facility] Protein Auto test strip (U) [Mass/Vol]on 11-30-2023 Protein (U) [Mass/Vol] Negative NEG/TRACE [facility] Specific gravity Auto test s trip (U) [Rel density]on 11-30-2023 Specific gravity (U) [Rel density] CLEAR CLEAR [facility] Urine hemoglobin detection b y automated test stripon 11-30-2023 Hemoglobin Auto test strip Ql (U) Negative NEGATIVE [facility] Urine nitrite detection by a utomated test stripon 11-30-2023 Nitrite Auto test strip Ql (U) Negative NEGATIVE [facility] Urobilinogen Auto test strip (U) [Mass/Vol]on 11-30-2023 Urobilinogen Qn (U) 1.0 {Heavenly'U}/dL 0.2-1.0 [facility] pH Auto test strip (U)on pH (U) 6.0 [pH] 5.0-9.0 [facility] Basophils Auto (Bld) [#/Vol] on 11-25-2023 Basophils (Bld) [#/Vol] 0.0 10 3/uL 0.0-0.1 [facility] Basophils/100 WBC Auto (Bld) on 11-25-2023 Basophils/100 WBC (Bld) 0.3 % 0.2-2.0 [facility] Eosinophils/100 WBC Auto (Bl d)on 11-25-2023 Eosinophils/100 WBC (Bld) 4.1 % 0.9-7.0 [facility] Erythrocyte distribution wid th Auto (RBC) [Ratio]on 11-25-2023 Erythrocyte distribution width (RBC) [Ratio] 13.6 % 11.0-15.0 [facility] Estimated glomerular filtrat ion rate (GFR) non- Americanon 11-25-2023 GFR/1.73 sq M.predicted among non-blacks MDRD (S/P/Bld) [Vol rate/Area] 40 mL/min/{1.73_m2} Low >=60 [facility] Hematocrit Auto (Bld) [Volum e fraction]on 11-25-2023 Hematocrit (Bld) [Volume fraction] 34.3 % Low 36.0-48.0 [facility] Hemoglobin [Mass/volume] in Bloodon 11-25-2023 Hemoglobin (Bld) [Mass/Vol] 11.3 g/dL Low 12.0-16.0 [facility] Laboratory - Chemistry and C hemistry - challengeon 11-25-2023 Calcium [Mass/Vol] 9.3 mg/dL 8.5-10.1 [facility] Chloride [Moles/Vol] 102 mmol/L 98-107 [facility] CO2 [Moles/Vol] 27.9 mmol/L 21.0-32.0 [facility] Creatinine [Mass/Vol] 1.26 mg/dL High 0.55-1.02 [facility] GFR/1.73 sq M.predicted MDRD (S/P/Bld) [Vol rate/Area] 49 mL/min/{1.73_m2} Low >=60 [facility] Glucose [Mass/Vol] 101 mg/dL 74-106 [facility] Potassium [Moles/Vol] 4.2 mmol/L 3.5-5.1 [facility] Sodium [Moles/Vol] 140 mmol/L 136-145 [facility] Urea nitrogen [Mass/Vol] 21.0 mg/dL High 7.0-18.0 [facility] Urea nitrogen/Creatinine [Mass ratio] 16.7 mg/mg [facility] Laboratory - Hematology and Cell countson 11-25-2023 Immature granulocytes/100 WBC (Bld) 0.2 % 0.0-0.5 [facility] Leukocytes [#/volume] correc law for nucleated erythrocytes in Blood by Automated counon 11-25-2023 WBC corrected for nucl RBC Auto (Bld) [#/Vol] 6.1 10 3/uL 4.0-11.0 [facility] Lymphocytes Auto (Bld) [#/Vo l]on 11-25-2023 Lymphocytes (Bld) [#/Vol] 1.8 10 3/uL 1.2-3.8 [facility] Lymphocytes/100 WBC Auto (Bl d)on 11-25-2023 Lymphocytes/100 WBC (Bld) 29.7 % 20.5-60.0 [facility] MCH Auto (RBC) [Entitic mass ]on 11-25-2023 MCH (RBC) [Entitic mass] 31.1 pg 26.7-34.0 [facility] MCHC Auto (RBC) [Mass/Vol]on 11-25-2023 MCHC (RBC) [Mass/Vol] 32.9 g/dL 29.9-35.2 [facility] MCV Auto (RBC) [Entitic vol] on 11-25-2023 MCV (RBC) [Entitic vol] 94.5 fL 81.0-99.0 [facility] Monocytes Auto (Bld) [#/Vol] on 11-25-2023 Monocytes (Bld) [#/Vol] 0.6 10 3/uL 0.3-0.8 [facility] Monocytes/100 WBC Auto (Bld) on 11-25-2023 Monocytes/100 WBC (Bld) 9.2 % 1.7-12.0 [facility] Neutrophils Auto (Bld) [#/Vo l]on 11-25-2023 Neutrophils (Bld) [#/Vol] 3.4 10 3/uL 1.4-6.5 [facility] Neutrophils/100 WBC Auto (Bl d)on 11-25-2023 Neutrophils/100 WBC (Bld) 56.5 % 43.0-75.0 [facility] No Panel Informationon 11-24 Eosinophils # (Auto) 0.3 10 3/uL 0.0-0.7 [facility] Immature Granulocyte # (Auto) 0.01 10 3/uL 0.00-0.03 [facility] Platelet mean volume Auto (B ld) [Entitic vol]on 11-25-2023 Platelet mean volume (Bld) [Entitic vol] 9.7 fL 9.5-13.5 [facility] Platelets Auto (Bld) [#/Vol] on 11-25-2023 Platelets (Bld) [#/Vol] 217 10 3/uL 150-450 [facility] RBC Auto (Bld) [#/Vol]on RBC (Bld) [#/Vol] 3.63 10 6/uL Low 4.20-5.40 [facility] Serum or plasma anion gap de terminationon 11-25-2023 Anion gap [Moles/Vol] 14.3 mmol/L [facility] ECG 12 lead ECGon 11-19-2023 ECG 12 lead ECG [place] [address] Electrocardiograph Report Signed Patient: Atiya Jha MR#: [id number] : 1940 Acct:[id number] Age/Sex: 83 / F ADM Date: 11/18/23 Loc: Room: [address] [place] [address] Type: REG SDC Attending Dr: W Ziyad Kristian DO Ordering Provider: Allan Townsend DO Date [...] change was found Confirmed by Noah Foster ([id number]) on 11/19/2023 3:47:28 PM Referred By: Electronically Signed By:Noah Foster Transcribed By: MUS Signed By Noah Foster MD 11/19/23 1547 Normal [facility] Troponin I High Sensitivityo n 11-19-2023 Troponin I High Sensitivity 88.9 pg/mL Off scale high 0.0-15.0 [facility] Comment on above: Result Comment: Crit ical Result : Called to and read back by: NGUYEN BERMUDEZ at: 11/19/2023 07:10:35 by:MLG PERFORMED BY: [place] [address] PATHOLOGIST [employer] JAYDE CARDOZA M.D. Performed By: #### H S TROP #### [address] Troponin I.cardiac [Mass/vol ume] in Serum or Plasma by Detection limit <= 0.01 ng/Ordered By: Allan Townsend on 11-19-2023 Troponin I.cardiac DL <= 0.01 ng/mL [Mass/Vol] 88.9 pg/mL High 0.0-15.0 [facility] Comment on above: Critical Result : Ca lled to and read back by: NGUYEN BERMUDEZ at: 11/19/2023 07:10:35 by:MLG ECG 12 lead ECGon 11-18-2023 ECG 12 lead ECG [facility] [place] [address] [place] [address] Electrocardiograph Report Signed Patient: Atiya Jha MR#: [id number] : 1940 Acct:[id number] Age/Sex: 83 / F ADM Date: 11/18/23 Loc: Room: 6X3849-0 Type: REG SDC Attending Dr: Allan Townsend [...] previous ECGs available Confirmed by Noah Foster ([id number]) on 11/19/2023 3:47:26 PM Referred By: NO POST PTCA Electronically Signed By:Noah Foster Transcribed By: MUS Signed By Noah Foster MD 11/19/23 1547 Normal [facility] Activated partial thrombopla stin time (aPTT) in platelet poor plasma by coagulation aOrdered By: Allan Townsend on 11-16-2023 aPTT Coag (PPP) [Time] 31.6 s 25.1-36.5 [facility] Comment on above: A hematocrit value g reater than 55% may lead to inaccurate results in coagulation testing. Patients having hematocrit values >55% require a special collection tube for coagulation studies. Please contact the laboratory at [phone] for redraw instructions. Automated basophil %Ordered By: Allan Townsend on 11-16-2023 Basophils/100 WBC (Bld) 0.6 % Normal . [facility] Comment on above: Performed By: #### C REAT, BUN, PP, LIPID, LYTES, CBC #### [facility] [address] [place] [address] Automated basophil countOrde red By: Allan Townsend on 11-16-2023 Basophils (Bld) [#/Vol] 0.0 10*3/uL Normal 0.0-0.2 [facility] Comment on above: Result Comment: PERF ORMED BY: [place] [address] PATHOLOGIST [employer] JAYDE CARDOZA M.D. Performed By: #### C REAT, BUN, PP, LIPID, LYTES, CBC #### [address] Automated blood monocyte cou ntOrdered By: Allan Townsend on 11-16-2023 Monocytes (Bld) [#/Vol] 0.5 10*3/uL Normal 0.0-0.8 [facility] Comment on above: Performed By: #### C REAT, BUN, PP, LIPID, LYTES, CBC #### [address] Automated eosinophil %Ordere d By: Allan Townsend on 11-16-2023 Eosinophils/100 WBC (Bld) 3.4 % Normal . [facility] Comment on above: Performed By: #### C REAT, BUN, PP, LIPID, LYTES, CBC #### [address] Automated eosinophil countOr dered By: Allan Townsend on 11-16-2023 Eosinophils (Bld) [#/Vol] 0.2 10*3/uL Normal 0.0-0.45 [facility] Comment on above: Performed By: #### C REAT, BUN, PP, LIPID, LYTES, CBC #### [address] Automated monocyte %Ordered By: Allan Townsend on 11-16-2023 Monocytes/100 WBC (Bld) 9.6 % Normal . [facility] Comment on above: Performed By: #### C REAT, BUN, PP, LIPID, LYTES, CBC #### [address] Automated neutrophil %Ordere d By: Allan Townsend on 11-16-2023 Neutrophils/100 WBC (Bld) 57.9 % Normal . [facility] Comment on above: Performed By: #### C REAT, BUN, PP, LIPID, LYTES, CBC #### [facility] [address] [place] [address] [place] Carbon dioxide, total [Moles /volume] in Serum or PlasmaOrdered By: Allan Townsend on 11-16-2023 CO2 [Moles/Vol] 27.8 mmol/L Normal 21.0-31.0 [facility] Comment on above: Performed By: #### C REAT, BUN, PP, LIPID, LYTES, CBC #### [facility] [address] [place] [address] [place] Chloride [Moles/volume] in S katiana or PlasmaOrdered By: Allan Townsend on 11-16-2023 Chloride [Moles/Vol] 103 mmol/L Normal 98-107 [facility] Comment on above: Performed By: #### C REAT, BUN, PP, LIPID, LYTES, CBC #### [facility] [address] [place] [address] [place] Cholesterol [Mass/volume] in Serum or PlasmaOrdered By: Allan Townsend on 11-16-2023 Cholesterol [Mass/Vol] 143 mg/dL Normal 140-200 [facility] Comment on above: Chol less than 200 m g/dl low riskChol 201-239 mg/dl borderline riskChol 240 mg/dl and greater high risk Result Comment: Chol less than 200 mg/dl low risk Chol 201-239 mg/dl borderline risk Chol 240 mg/dl and greater high risk Performed By: #### C REAT, BUN, PP, LIPID, LYTES, CBC #### [facility] [address] [place] [address] [place] Cholesterol in LDL Calc [Mas s/Vol]Ordered By: Allan Townsend on 11-16-2023 Cholesterol in LDL [Mass/Vol] 74 mg/dL 0-100 [facility] Comment on above: LDL ATP III CLASSIFI CATIONLDL less than 100 mg/dL OptimalLDL 100-129 mg/dL Near or above optimalLDL 130-159 mg/dL Borderline highLDL 160-189 mg/dL HighLDL greater than 189 mg/dL Very high Cholesterol in VLDL Calc [Ma ss/Vol]Ordered By: Allan Townsend on 11-16-2023 Cholesterol in VLDL [Mass/Vol] 32 mg/dL [facility] Coagulation Profileon 2023 aPTT Coag (Bld) [Time] 31.6 s Normal 25.1-36.5 [facility] Comment on above: Result Comment: A he matocrit value greater than 55% may lead to inaccurate results in coagulation testing. Patients having hematocrit values >55% require a special collection tube for coagulation studies. Please contact the laboratory at [phone] for redraw instructions. PERFORMED BY: [place] [address] PATHOLOGIST [employer] JAYDE CARDOZA M.D. Performed By: #### C REAT, BUN, PP, LIPID, LYTES, CBC #### [address] Complete Blood Count Auto Di ffon 11-16-2023 Mean Corpuscular HGB Conc 34.2 g/dL Normal 32.0-35.0 [facility] Comment on above: Performed By: #### C REAT, BUN, PP, LIPID, LYTES, CBC #### [address] NRBC% 0.0 /100{WBC} Normal 0-0.5 [facility] Comment on above: Performed By: #### C REAT, BUN, PP, LIPID, LYTES, CBC #### [address] Creatinineon 11-16-2023 GFR/1.73 sq M.predicted MDRD (S/P/Bld) [Vol rate/Area] mL/min/{1.73_m2} Normal [facility] Comment on above: Performed By: #### C REAT, BUN, PP, LIPID, LYTES, CBC #### [address] Creatinine [Mass/volume] in Serum or PlasmaOrdered By: Allan Townsend on 11-16-2023 Creatinine [Mass/Vol] 0.88 mg/dL Normal 0.60-1.20 [facility] Comment on above: Performed By: #### C REAT, BUN, PP, LIPID, LYTES, CBC #### [facility] [address] ECG 12 lead ECGon 11-16-2023 ECG 12 lead ECG [facility] [place] [address] [place] [id number] Electrocardiograph Report Signed Patient: Atiya Jha MR#: [id number] : 1940 Acct:[id number] Age/Sex: 83 / F ADM Date: 11/16/23 Loc: PS Room: Type: [facility] Attending Dr: Allan Townsend DO Ordering Provider: Allan Townsend DO Date of Service: 11/16/23 ECG/ECG 12 lead ECG: PST for [facility] Copies to: Test Reason : Blood Pressure [...] QT has shortened Confirmed by Noah Foster ([id number]) on 11/16/2023 2:32:21 PM Referred By: KRISTIAN Electronically Signed By:Noah Foster Transcribed By: MUS Signed By Noah Foster MD 11/16/23 1432 Normal [facility] Erythrocyte distribution wid th [Ratio] by Automated countOrdered By: Allan Townsend on 11-16-2023 Erythrocyte distribution width (RBC) [Ratio] 14.5 % Normal 11.9-15.3 [facility] Comment on above: Performed By: #### C REAT, BUN, PP, LIPID, LYTES, CBC #### [facility] [address] [place], [place] [id number] [facility] Erythrocytes [#/volume] in B lood by Automated countOrdered By: Allan Townsend on 11-16-2023 RBC (Bld) [#/Vol] 3.78 10*6/uL Normal 3.60-5.00 [facility] Comment on above: Performed By: #### C REAT, BUN, PP, LIPID, LYTES, CBC #### [facility] [address] Hematocrit [Volume Fraction] of Blood by Automated countOrdered By: Allan Townsend on 11-16-2023 Hematocrit (Bld) [Volume fraction] 35.0 % Normal 34.0-46.4 [facility] Comment on above: Performed By: #### C REAT, BUN, PP, LIPID, LYTES, CBC #### [facility] [address] Hemoglobin [Mass/volume] in BloodOrdered By: Allan Townsend on 11-16-2023 Hemoglobin (Bld) [Mass/Vol] 12.0 g/dL Normal 11.8-15.4 [facility] Comment on above: Performed By: #### C REAT, BUN, PP, LIPID, LYTES, CBC #### [facility] [address] INR in Platelet poor plasma by Coagulation assayOrdered By: Allan Townsend on 11-16-2023 INR Coag (PPP) [Relative time] 1.0 {INR} Normal [facility] Comment on above: INR Therapeutic Rang [...] with mechanical heart valves: 3 - 4.5 Result Comment: INR Therapeutic Range A) Pre- [...] valves: 3 - 4.5 Performed By: #### C REAT, BUN, PP, LIPID, LYTES, CBC #### [facility] [address] Leukocytes [#/volume] correc law for nucleated erythrocytes in Blood by Automated counOrdered By: Allan Townsend on 11-16-2023 WBC corrected for nucl RBC Auto (Bld) [#/Vol] 5.4 10*3/uL 3.8-11.6 [facility] Leukocytes [#/volume] in Blo od by Automated countOrdered By: Allan Townsend on 11-16-2023 WBC (Bld) [#/Vol] 5.4 10*3/uL Normal 3.8-11.6 [facility] Comment on above: Performed By: #### C REAT, BUN, PP, LIPID, LYTES, CBC #### [facility] [address] Lipid Panelon 11-16-2023 LDL Cholesterol,Calculated 74 mg/dL Normal 0-100 [facility] Comment on above: Result Comment: LDL ATP III CLASSIFICATION LDL less than 100 mg/dL Optimal LDL 100-129 mg/dL Near or above optimal LDL 130-159 mg/dL Borderline high LDL 160-189 mg/dL High LDL greater than 189 mg/dL Very high Performed By: #### C REAT, BUN, PP, LIPID, LYTES, CBC #### [address] Triglyceride w/Reflex 163 mg/dL High 0-149 [facility] Comment on above: Result Comment: TRIG ATP III CLASSIFICATION TRIG less than 150 mg/dL Normal TRIG 150-199 mg/dL Borderline high TRIG 200-500 mg/dL High TRIG greater than 500 mg/dL Very high Standard traceable to the Center for Disease Conrtrol and Prevention (CDC) test method. Performed By: #### C REAT, BUN, PP, LIPID, LYTES, CBC #### [facility] [address] VLDL CHOLESTEROL 32 mg/dL Normal [facility] Comment on above: Performed By: #### C REAT, BUN, PP, LIPID, LYTES, CBC #### [facility] [address] Lymphocytes [#/volume] in Bl ood by Automated countOrdered By: Allan Townsend on 11-16-2023 Lymphocytes (Bld) [#/Vol] 1.5 10*3/uL Normal 1.00-4.8 [facility] Comment on above: Performed By: #### C REAT, BUN, PP, LIPID, LYTES, CBC #### [address] Lymphocytes/100 leukocytes i n Blood by Automated countOrdered By: Allan Townsend on 11-16-2023 Lymphocytes/100 WBC (Bld) 28.5 % Normal . [facility] Comment on above: Performed By: #### C REAT, BUN, PP, LIPID, LYTES, CBC #### [address] MCH [Entitic mass] by Automa law countOrdered By: Allan Townsend on 11-16-2023 MCH (RBC) [Entitic mass] 31.6 pg Normal 24.7-34.3 [facility] Comment on above: Performed By: #### C REAT, BUN, PP, LIPID, LYTES, CBC #### [address] MCHC Auto (RBC) [Mass/Vol]Or dered By: Allan Townsend on 11-16-2023 MCHC (RBC) [Mass/Vol] 34.2 g/dL 32.0-35.0 [facility] MCV [Entitic volume] by Auto mated countOrdered By: Allan Townsend on 11-16-2023 MCV (RBC) [Entitic vol] 92.4 fL Normal 80-100 [facility] Comment on above: Performed By: #### C REAT, BUN, PP, LIPID, LYTES, CBC #### [address] Neutrophils [#/volume] in Bl ood by Automated countOrdered By: Allan Townsend on 11-16-2023 Neutrophils (Bld) [#/Vol] 3.1 10*3/uL Normal 1.8-7.7 [facility] Comment on above: Performed By: #### C REAT, BUN, PP, LIPID, LYTES, CBC #### [facility] [address] [place] [address] No Panel InformationOrdered By: Allan Townsend on 11-16-2023 Estimated GFR (CKD-EPI) > 60.0 mL/Min [facility] Creatinine Clearance (Chem N/A [facility] Nucleated erythrocytes [Pres ence] in Blood by Automated countOrdered By: Allan Townsend on 11-16-2023 Nucleated RBC Auto Ql (Bld) 0.0 /100{WBC} 0-0.5 [facility] Platelet mean volume [Entiti c volume] in Blood by Automated countOrdered By: Allan Townsend on 11-16-2023 Platelet mean volume (Bld) [Entitic vol] 7.7 fL Normal 6.3-10.7 [facility] Comment on above: Performed By: #### C REAT, BUN, PP, LIPID, LYTES, CBC #### [facility] [address] [place] [address] Platelets [#/volume] in Bloo d by Automated countOrdered By: Allan Townsend on 11-16-2023 Platelets (Bld) [#/Vol] 194 10*3/uL Normal 150-450 [facility] Comment on above: Performed By: #### C REAT, BUN, PP, LIPID, LYTES, CBC #### [address] Potassium [Moles/volume] in Serum or PlasmaOrdered By: Allan Townsend on 11-16-2023 Potassium [Moles/Vol] 3.8 mmol/L Normal 3.5-5.1 [facility] Comment on above: Performed By: #### C REAT, BUN, PP, LIPID, LYTES, CBC #### [address] Prothrombin time (PT)Ordered By: Allan Townsend on 11-16-2023 PT Coag (PPP) [Time] 11.1 s Normal 9.0-12.9 [facility] Comment on above: A hematocrit value g reater than 55% may lead to inaccurate results in coagulation testing. Patients having hematocrit values >55% require a special collection tube for coagulation studies. Please contact the laboratory at [phone] for redraw instructions. Result Comment: A he matocrit value greater than 55% may lead to inaccurate results in coagulation testing. Patients having hematocrit values >55% require a special collection tube for coagulation studies. Please contact the laboratory at [phone] for redraw instructions. Performed By: #### C REAT, BUN, PP, LIPID, LYTES, CBC #### [facility] [address] Serum or plasma anion gap de terminationOrdered By: Allan Townsend on 11-16-2023 Anion gap [Moles/Vol] 10.0 mmol/L Normal 6.0-15.0 [facility] Comment on above: Performed By: #### C REAT, BUN, PP, LIPID, LYTES, CBC #### [address] Serum or plasma high density lipoprotein (HDL) cholesterol measurementOrdered By: Allan Townsend on 11-16-2023 Cholesterol in HDL [Mass/Vol] 36 mg/dL Normal 23-92 [facility] Comment on above: HDL CHOL ATP-III CLA SSIFICATION Cardiovascular RiskHDL > or equal to 60 mg/dL LOWHDL < 40 mg/dL HIGH Result Comment: HDL CHOL ATP-III CLASSIFICATION Cardiovascular Risk HDL > or equal to 60 mg/dL LOW HDL < 40 mg/dL HIGH Performed By: #### C REAT, BUN, PP, LIPID, LYTES, CBC #### [address] Serum or plasma total choles terol/high density lipoprotein (HDL) cholesterol mass ratOrdered By: Allan Townsend on 11-16-2023 Cholesterol.total/Chol esterol in HDL [Mass ratio] 4.0 {ratio} Normal <5.0 [facility] Comment on above: Result Comment: PERF ORMED BY: [place] [address] PATHOLOGIST [employer] JAYDE CARDOZA M.D. Performed By: #### C REAT, BUN, PP, LIPID, LYTES, CBC #### [facility] [address] Sodium [Moles/volume] in Ser um or PlasmaOrdered By: Allan Townsend on 11-16-2023 Sodium [Moles/Vol] 137 mmol/L Normal 136-145 [facility] Comment on above: Performed By: #### C REAT, BUN, PP, LIPID, LYTES, CBC #### [facility] [address] Triglyceride [Mass/volume] i n Serum or PlasmaOrdered By: Allan Townsned on 11-16-2023 Triglyceride [Mass/Vol] 163 mg/dL High 0-149 [facility] Comment on above: TRIG ATP III CLASSIF ICATIONTRIG less than 150 mg/dL NormalTRIG 150-199 mg/dL Borderline highTRIG 200-500 mg/dL High TRIG greater than 500 mg/dL Very highStandard traceable to the Center for Disease Conrtrol and Prevention (CDC) test method. Urea nitrogen [Mass/volume] in Serum or PlasmaOrdered By: Allan Townsend on 11-16-2023 Urea nitrogen [Mass/Vol] 19 mg/dL Normal 7-25 [facility] Comment on above: Performed By: #### C REAT, BUN, PP, LIPID, LYTES, CBC #### [facility] [address] [place] [id number] [facility] [place] Heart Perfusion W stress and W [...] Xiomara Ndiaye 11/10/2023 12:04 PM Dictation workstation: [id number] Interpreted By: Xiomara Ndiaye, and Livier Cartwright STUDY: MYOCARDIAL PERFUSION STRESS TEST WITH LEXISCAN Performing facility: [facility], [address] [place] [address], [address], [place] [address] [facility] Provider: Geoffrey Santillan MD, [facility] PCP: Dr. Nathalie Barreto Supervising provider: Chelsie Cedeno MD, [facility] INDICATION: CAD; SOB; Chest tightness HISTORY: Gender: F; Age: 83 y/o ; Height: HT 165.1 cm cm; Weight: WT 70.761 kg kg. CAD; High Cholesterol; Previous [place]; HTN; Chest Pain; SOB; Denies smoking. Cardiac catheterization on 2022. PTCA on 2022. COMPARISON: Previous nuclear testing completed at [facility]. ACCESSION NUMBER(S): [id number] ORDERING CLINICIAN: DARRYL SANTILLAN TECHNIQUE: ONE DAY [...] There were no evidence of attenuation artifact. Xiomara Garcia MD - 11/10/2023 Interpreted By: Xiomara Ndiaye and Giannuzzi Michael STUDY: MYOCARDIAL PERFUSION STRESS TEST WITH LEXISCAN Performing facility: [facility], [address] [place] [address], [address], [place] [address] [facility] Provider: Geoffrey Santillan MD, [facility] PCP: Dr. Nathalie Barreto Supervising provider: Chelsie Cedeno MD, [facility] INDICATION: CAD; SOB; Chest tightness HISTORY: Gender: F; Age: 83 y/o ; Height: HT 165.1 cm cm; Weight: WT 70.761 kg kg. CAD; High Cholesterol; Previous [place]; HTN; Chest Pain; SOB; Denies smoking. Cardiac catheterization on 2022. PTCA on 2022. COMPARISON: Previous nuclear testing completed [id number] at [facility]. ACCESSION NUMBER(S): [id number] ORDERING CLINICIAN: DARRYL SANTILLAN TECHNIQUE: ONE DAY [...] Xiomara Ndiaye 11/10/2023 12:04 PM Dictation workstation: [id number] [facility] Work Phone: Radiology Study observation (narrative) [facility] Work Phone: [place] Heart Perfusion W stress and W radionuclide IVOrdered By: Xiomara Ndiaye on 11-10-2023 [facility] Work Phone: NUCLEAR STRESS TESTon 2023 NUCLEAR STRESS TEST Interpreted By: Xiomara Ndiaye and Giannuzzi Michael STUDY: MYOCARDIAL PERFUSION STRESS TEST WITH LEXISCAN Performing facility: [facility], [address] [place] [address], [address], [address] Provider: Geoffrey Santillan MD, [facility]ACC PCP: Dr. Nathalie Barreto Supervising provider: Chelsie Cedeno MD, [facility] INDICATION: CAD; SOB; Chest tightness HISTORY: Gender: F; Age: 83 y/o ; Height: HT 165.1 cm cm; Weight: WT 70.761 kg kg. CAD; High Cholesterol; Previous [place]; HTN; Chest Pain; SOB; Denies smoking. Cardiac catheterization on 2022. PTCA on 2022. COMPARISON: Previous nuclear testing completed [id number] at [facility]. ACCESSION NUMBER(S): [id number] ORDERING CLINICIAN: DARRYL SANTILLAN TECHNIQUE: ONE DAY [...] Xiomara Ndiaye 11/10/2023 12:04 PM Dictation workstation: [id number] [facility] Basophils Auto (Bld) [#/Vol] on 10-20-2023 Basophils (Bld) [#/Vol] 0.0 10 3/uL 0.0-0.1 [facility] Basophils/100 WBC Auto (Bld) on 10-20-2023 Basophils/100 WBC (Bld) 0.4 % 0.2-2.0 [facility] Eosinophils/100 WBC Auto (Bl d)on 10-20-2023 Eosinophils/100 WBC (Bld) 3.2 % 0.9-7.0 [facility] Erythrocyte distribution wid th Auto (RBC) [Ratio]on 10-20-2023 Erythrocyte distribution width (RBC) [Ratio] 13.2 % 11.0-15.0 [facility] Estimated glomerular filtrat ion rate (GFR) non- Americanon 10-20-2023 GFR/1.73 sq M.predicted among non-blacks MDRD (S/P/Bld) [Vol rate/Area] 47 mL/min/{1.73_m2} >=60 [facility] Globulin Calc (S) [Mass/Vol] on 10-20-2023 Globulin (S) [Mass/Vol] 3.2 g/dL [facility] Hematocrit Auto (Bld) [Volum e fraction]on 10-20-2023 Hematocrit (Bld) [Volume fraction] 37.9 % 36.0-48.0 [facility] Hemoglobin [Mass/volume] in Bloodon 10-20-2023 Hemoglobin (Bld) [Mass/Vol] 12.4 g/dL 12.0-16.0 [facility] Iron binding capacity [Mass/ volume] in Serum or Plasmaon 10-20-2023 Iron binding capacity [Mass/Vol] 318.0 ug/dL 250.0-450. 0 [facility] Iron saturation [Mass Fracti on] in Serum or Plasmaon 10-20-2023 Iron saturation [Mass fraction] 36.2 % [facility] Laboratory - Chemistry and C hemistry - challengeon 10-20-2023 Albumin [Mass/Vol] 4.1 g/dL 3.4-5.0 [facility] ALP [Catalytic activity/Vol] 71 U/L 46-116 [facility] ALT [Catalytic activity/Vol] 23 U/L 14-59 [facility] AST [Catalytic activity/Vol] 15 U/L 15-37 [facility] Bilirubin [Mass/Vol] 0.8 mg/dL 0.2-1.0 [facility] Calcium [Mass/Vol] 9.5 mg/dL 8.5-10.1 [facility] Chloride [Moles/Vol] 98 mmol/L 98-107 [facility] CO2 [Moles/Vol] 28.1 mmol/L 21.0-32.0 [facility] Cobalamin (Vitamin B12) [Mass/Vol] 1997.0 pg/mL 193.0-986. 0 [facility] Creatinine [Mass/Vol] 1.10 mg/dL 0.55-1.02 [facility] Ferritin [Mass/Vol] 136.0 ng/mL 8.0-252.0 [facility] GFR/1.73 sq M.predicted MDRD (S/P/Bld) [Vol rate/Area] 57 mL/min/{1.73_m2} >=60 [facility] Glucose [Mass/Vol] 95 mg/dL 74-106 [facility] Iron [Mass/Vol] 115.0 ug/dL 50.0-170.0 [facility] Potassium [Moles/Vol] 3.7 mmol/L 3.5-5.1 [facility] Protein [Mass/Vol] 7.3 g/dL 6.4-8.2 [facility] Sodium [Moles/Vol] 135 mmol/L 136-145 [facility] TSH Qn 0.894 m[IU]/L 0.358-3.74 0 [facility] Urea nitrogen [Mass/Vol] 28.0 mg/dL 7.0-18.0 [facility] Urea nitrogen/Creatinine [Mass ratio] 25.5 mg/mg [facility] Laboratory - Hematology and Cell countson 10-20-2023 Immature granulocytes/100 WBC (Bld) 0.1 % 0.0-0.5 [facility] Leukocytes [#/volume] correc law for nucleated erythrocytes in Blood by Automated counon 10-20-2023 WBC corrected for nucl RBC Auto (Bld) [#/Vol] 6.8 10 3/uL 4.0-11.0 [facility] Lymphocytes Auto (Bld) [#/Vo l]on 10-20-2023 Lymphocytes (Bld) [#/Vol] 2.0 10 3/uL 1.2-3.8 [facility] Lymphocytes/100 WBC Auto (Bl d)on 10-20-2023 Lymphocytes/100 WBC (Bld) 29.4 % 20.5-60.0 [facility] MCH Auto (RBC) [Entitic mass ]on 10-20-2023 MCH (RBC) [Entitic mass] 30.7 pg 26.7-34.0 [facility] MCHC Auto (RBC) [Mass/Vol]on 10-20-2023 MCHC (RBC) [Mass/Vol] 32.7 g/dL 29.9-35.2 [facility] MCV Auto (RBC) [Entitic vol] on 10-20-2023 MCV (RBC) [Entitic vol] 93.8 fL 81.0-99.0 [facility] Monocytes Auto (Bld) [#/Vol] on 10-20-2023 Monocytes (Bld) [#/Vol] 0.7 10 3/uL 0.3-0.8 [facility] Monocytes/100 WBC Auto (Bld) on 10-20-2023 Monocytes/100 WBC (Bld) 9.7 % 1.7-12.0 [facility] Neutrophils Auto (Bld) [#/Vo l]on 10-20-2023 Neutrophils (Bld) [#/Vol] 3.9 10 3/uL 1.4-6.5 [facility] Neutrophils/100 WBC Auto (Bl d)on 10-20-2023 Neutrophils/100 WBC (Bld) 57.2 % 43.0-75.0 [facility] No Panel Informationon 10-19 Eosinophils # (Auto) 0.2 10 3/uL 0.0-0.7 [facility] Folate 16.00 ng/mL 8.60-58.90 [facility] Immature Granulocyte # (Auto) 0.01 10 3/uL 0.00-0.03 [facility] Platelet mean volume Auto (B ld) [Entitic vol]on 10-20-2023 Platelet mean volume (Bld) [Entitic vol] 9.5 fL 9.5-13.5 [facility] Platelets Auto (Bld) [#/Vol] on 10-20-2023 Platelets (Bld) [#/Vol] 212 10 3/uL 150-450 [facility] RBC Auto (Bld) [#/Vol]on RBC (Bld) [#/Vol] 4.04 10 6/uL 4.20-5.40 [facility] Serum or plasma albumin/glob ulin mass ratioon 10-20-2023 Albumin/Globulin [Mass ratio] 1.3 {ratio} [facility] Serum or plasma anion gap de terminationon 10-20-2023 Anion gap [Moles/Vol] 12.6 mmol/L [facility] MUGA SCAN INJECTIONon [facility] MUGA SCAN INJECTION Patient Name: ATIYA JHA STUDY: MUGA Performing facility: [facility], [address] [place] [address], [address] Provider: Geoffrey Townsend DO, [facility] PCP: Dr. Nathalie Barreto Supervising provider: Sulma Busby RN, [employer] INDICATION: ASCVD Chest Pain; CHF Dyspnea Fatigue Hx PTCA HISTORY: Gender: F; Age: 82 y/o ; Height: 165.1 cm; Weight: 69.6247682 kg. CAD; Chest Pain; SOB; CHF Fatigue; Denies smoking. Cardiac catheterization on 2022. PTCA on 2022. COMPARISON: Previous nuclear testing completed [id number] EF= 76% at [facility]. Previous echo testing completed [id number] EF=40-45% at [facility]. ACCESSION NUMBER(S): [id number]; [id number] ORDERING CLINICIAN: DARRYL TOWNSEND TECHNIQUE: The patient [...] Electronically signed by: CHELSIE CEDENO MD Normal [facility] No Panel Informationon 03-11 Normal [facility] y [address] DO Work Phone: Tobacco Screening.on 023 Adult depression screening assessment Yes [facility] io [facility] [address] DO Work Phone: Adult depression screening assessment No [facility] 250 DO Work Phone: Fall risk assessment a) No falls within the last year [facility] 250 DO Work Phone: Tobacco use status [facility] b) No [facility] 250 DO Work Phone: Basophils Auto (Bld) [#/Vol] Ordered By: Allan Townsend on 01-16-2023 Basophils (Bld) [#/Vol] 0.0 10*3/uL 0.0-0.2 [facility] Basophils/100 WBC Auto (Bld) Ordered By: Allan Townsend on 01-16-2023 Basophils/100 WBC (Bld) 0.6 % . [facility] Calcium [Mass/volume] in Ser um or PlasmaOrdered By: Allan Townsend on 01-16-2023 Calcium [Mass/Vol] 8.8 mg/dL 8.6-10.3 [facility] Carbon dioxide, total [Moles /volume] in Serum or PlasmaOrdered By: Allan Townsend on 01-16-2023 CO2 [Moles/Vol] 25.2 mmol/L 21.0-31.0 [facility] Chloride [Moles/volume] in S katiana or PlasmaOrdered By: Allan Townsend on 01-16-2023 Chloride [Moles/Vol] 107 mmol/L 98-107 [facility] Creatinine [Mass/volume] in Serum or PlasmaOrdered By: Allan Townsend on 01-16-2023 Creatinine [Mass/Vol] 0.88 mg/dL 0.60-1.20 [facility] Eosinophils Auto (Bld) [#/Vo l]Ordered By: Allan Townsend on 01-16-2023 Eosinophils (Bld) [#/Vol] 0.3 10*3/uL 0.0-0.45 [facility] Eosinophils/100 WBC Auto (Bl d)Ordered By: Allan Townsend on 01-16-2023 Eosinophils/100 WBC (Bld) 5.1 % . [facility] Erythrocyte distribution wid th Auto (RBC) [Ratio]Ordered By: Allan Townsend on 01-16-2023 Erythrocyte distribution width (RBC) [Ratio] 13.8 % 11.9-15.3 [facility] Glucose [Mass/volume] in Ser um or PlasmaOrdered By: Allan Townsend on 01-16-2023 Glucose [Mass/Vol] 100 mg/dL 70-100 [facility] Comment on above: ADA recommended refe rence rangeRandom Glucose Reference Range is dependent on time and content of last meal. Glucose of more than 200 mg/dL in a nonstressed, ambulatory subject supports the diagnosis of Diabetes Mellitus. Hematocrit Auto (Bld) [Volum e fraction]Ordered By: Allan Townsend on 01-16-2023 Hematocrit (Bld) [Volume fraction] 32.9 % 34.0-46.4 [facility] Hemoglobin [Mass/volume] in BloodOrdered By: Allan Townsend on 01-16-2023 Hemoglobin (Bld) [Mass/Vol] 11.5 g/dL 11.8-15.4 [facility] Leukocytes [#/volume] correc law for nucleated erythrocytes in Blood by Automated counOrdered By: Allan Townsend on 01-16-2023 WBC corrected for nucl RBC Auto (Bld) [#/Vol] 5.2 10*3/uL 3.8-11.6 [facility] Lymphocytes Auto (Bld) [#/Vo l]Ordered By: Allan Townsend on 01-16-2023 Lymphocytes (Bld) [#/Vol] 1.4 10*3/uL 1.00-4.8 [facility] Lymphocytes/100 WBC Auto (Bl d)Ordered By: Allan Townsend on 01-16-2023 Lymphocytes/100 WBC (Bld) 28.0 % . [facility] MCH Auto (RBC) [Entitic mass ]Ordered By: Allan Townsend on 01-16-2023 MCH (RBC) [Entitic mass] 32.1 pg 24.7-34.3 [facility] MCHC Auto (RBC) [Mass/Vol]Or dered By: Allan Townsend on 01-16-2023 MCHC (RBC) [Mass/Vol] 34.8 g/dL 32.0-35.0 [facility] MCV Auto (RBC) [Entitic vol] Ordered By: Allan Townsend on 01-16-2023 MCV (RBC) [Entitic vol] 92.2 fL 80-100 [facility] Monocytes Auto (Bld) [#/Vol] Ordered By: Allan Townsend on 01-16-2023 Monocytes (Bld) [#/Vol] 0.6 10*3/uL 0.0-0.8 [facility] Monocytes/100 WBC Auto (Bld) Ordered By: Allan Townsend on 01-16-2023 Monocytes/100 WBC (Bld) 12.0 % . [facility] Neutrophils Auto (Bld) [#/Vo l]Ordered By: Allan Townsend on 01-16-2023 Neutrophils (Bld) [#/Vol] 2.8 10*3/uL 1.8-7.7 [facility] Neutrophils/100 WBC Auto (Bl d)Ordered By: Allan Townsend on 01-16-2023 Neutrophils/100 WBC (Bld) 54.3 % . [facility] No Panel InformationOrdered By: Allan Townsend on 01-16-2023 Estimated GFR (CKD-EPI) > 60.0 mL/Min [facility] Creatinine Clearance (Chem 48.86 [facility] Nucleated erythrocytes [Pres ence] in Blood by Automated countOrdered By: Allan Townsend on 01-16-2023 Nucleated RBC Auto Ql (Bld) 0.2 /100{WBC} 0-0.5 [facility] Platelet mean volume Auto (B ld) [Entitic vol]Ordered By: Allan Townsend on 01-16-2023 Platelet mean volume (Bld) [Entitic vol] 8.0 fL 6.3-10.7 [facility] Platelets Auto (Bld) [#/Vol] Ordered By: Allan Townsend on 01-16-2023 Platelets (Bld) [#/Vol] 161 10*3/uL 150-450 [facility] Potassium [Moles/volume] in Serum or PlasmaOrdered By: Allan Townsend on 01-16-2023 Potassium [Moles/Vol] 4.0 mmol/L 3.5-5.1 [facility] RBC Auto (Bld) [#/Vol]Ordere d By: Allan Townsend on 01-16-2023 RBC (Bld) [#/Vol] 3.57 10*6/uL 3.60-5.00 [facility] Serum or plasma anion gap de terminationOrdered By: Allan Townsend on 01-16-2023 Anion gap [Moles/Vol] 11.8 mmol/L 6.0-15.0 [facility] Sodium [Moles/volume] in Ser um or PlasmaOrdered By: Allan Townsend on 01-16-2023 Sodium [Moles/Vol] 140 mmol/L 136-145 [facility] Urea nitrogen [Mass/volume] in Serum or PlasmaOrdered By: Allan Townsend on 01-16-2023 Urea nitrogen [Mass/Vol] 15 mg/dL 7-25 [facility] WBC Auto (Bld) [#/Vol]Ordere d By: Allan Townsend on 01-16-2023 WBC (Bld) [#/Vol] 5.2 10*3/uL 3.8-11.6 [facility] Glucose Glucometer (BldC) [M ass/Vol]Ordered By: Allan Townsned on 01-15-2023 Glucose [Mass/Vol] 108 mg/dL [facility] Comment on above: Random Glucose Refer ence Range is dependent on time and content of last meal. Glucose of more than 200 mg/dL in a nonstressed, ambulatory subject supports the diagnosis of Diabetes Mellitus. Troponin I.cardiac [Mass/vol ume] in Serum or Plasma by Detection limit <= 0.01 ng/Ordered By: Allan Townsend on 01-15-2023 Troponin I.cardiac DL <= 0.01 ng/mL [Mass/Vol] 34766.5 pg/mL 0.0-15.0 [facility] Comment on above: Critical Result : Ca lled to and read back by: SEAN WHITTAKER at: 01/15/2023 05:46:06 by:[id number] Activated partial thrombopla stin time (aPTT) in platelet poor plasma by coagulation aOrdered By: Chaitanya Luna on 01-14-2023 aPTT Coag (PPP) [Time] 274.4 s 25.1-36.5 [facility] Comment on above: result calledat 1017 on 01/14/23 Alanine aminotransferase [En zymatic activity/volume] in Serum or PlasmaOrdered By: Chaitanya Luna on 01-14-2023 ALT [Catalytic activity/Vol] 13 U/L 7-52 [facility] Albumin [Mass/volume] in Ser um or Plasma by Bromocresol green (BCG) dye binding methoOrdered By: Chaitanya Luna on 01-14-2023 Albumin BCG dye [Mass/Vol] 4.3 g/dL 3.5-5.7 [facility] Alkaline phosphatase [Enzyma tic activity/volume] in Serum or PlasmaOrdered By: Chaitanya Luna on 01-14-2023 ALP [Catalytic activity/Vol] 49 U/L 34-104 [facility] Aspartate aminotransferase [ Enzymatic activity/volume] in Serum or PlasmaOrdered By: Chaitanya Luna on 01-14-2023 AST [Catalytic activity/Vol] 16 U/L 13-39 [facility] Basophils Auto (Bld) [#/Vol] Ordered By: Chaitanya Luna on 01-14-2023 Basophils (Bld) [#/Vol] 0.0 10*3/uL 0.0-0.2 [facility] Basophils/100 WBC Auto (Bld) Ordered By: Chaitanya Luna on 01-14-2023 Basophils/100 WBC (Bld) 0.7 % . [facility] Bilirubin.total [Mass/volume ] in Serum or PlasmaOrdered By: Chaitanya Luna on 01-14-2023 Bilirubin [Mass/Vol] 0.7 mg/dL 0.3-1.0 [facility] Calcium [Mass/volume] in Ser um or PlasmaOrdered By: Chaitanya Luna on 01-14-2023 Calcium [Mass/Vol] 8.7 mg/dL 8.6-10.3 [facility] Carbon dioxide, total [Moles /volume] in Serum or PlasmaOrdered By: Chaitanya Luna on 01-14-2023 CO2 [Moles/Vol] 21.9 mmol/L 21.0-31.0 [facility] Chloride [Moles/volume] in S katiana or PlasmaOrdered By: Chaitanya Luna on 01-14-2023 Chloride [Moles/Vol] 107 mmol/L 98-107 [facility] Creatine kinase [Enzymatic a ctivity/volume] in Serum or PlasmaOrdered By: Chaitanya Luna on 01-14-2023 CK [Catalytic activity/Vol] 119 U/L 30-223 [facility] Creatinine [Mass/volume] in Serum or PlasmaOrdered By: Chaitanya Luna on 01-14-2023 Creatinine [Mass/Vol] 0.86 mg/dL 0.60-1.20 [facility] Eosinophils Auto (Bld) [#/Vo l]Ordered By: Chaitanya Luna on 01-14-2023 Eosinophils (Bld) [#/Vol] 0.2 10*3/uL 0.0-0.45 [facility] Eosinophils/100 WBC Auto (Bl d)Ordered By: Chaitanya Luna on 01-14-2023 Eosinophils/100 WBC (Bld) 3.6 % . [facility] Erythrocyte distribution wid th Auto (RBC) [Ratio]Ordered By: Chaitanya Luna on 01-14-2023 Erythrocyte distribution width (RBC) [Ratio] 13.4 % 11.9-15.3 [facility] Globulin Calc (S) [Mass/Vol] Ordered By: Chaitanya Luna on 01-14-2023 Globulin (S) [Mass/Vol] 2.1 g/dL [facility] Glucose [Mass/volume] in Ser um or PlasmaOrdered By: Chaitanya Luna on 01-14-2023 Glucose [Mass/Vol] 132 mg/dL 70-100 [facility] Comment on above: ADA recommended refe rence rangeRandom Glucose Reference Range is dependent on time and content of last meal. Glucose of more than 200 mg/dL in a nonstressed, ambulatory subject supports the diagnosis of Diabetes Mellitus. Hematocrit Auto (Bld) [Volum e fraction]Ordered By: Chaitanya Luna on 01-14-2023 Hematocrit (Bld) [Volume fraction] 33.5 % 34.0-46.4 [facility] Hemoglobin [Mass/volume] in BloodOrdered By: Chaitanya Luna on 01-14-2023 Hemoglobin (Bld) [Mass/Vol] 11.4 g/dL 11.8-15.4 [facility] Laboratory - CoagulationOrde red By: Chaitanya Luna on 01-14-2023 PT Coag (PPP) [Time] 11.9 s 9.0-12.9 [facility] Leukocytes [#/volume] correc law for nucleated erythrocytes in Blood by Automated counOrdered By: Chaitanya Luna on 01-14-2023 WBC corrected for nucl RBC Auto (Bld) [#/Vol] 5.9 10*3/uL 3.8-11.6 [facility] Lymphocytes Auto (Bld) [#/Vo l]Ordered By: Chaitanya Luna on 01-14-2023 Lymphocytes (Bld) [#/Vol] 2.1 10*3/uL 1.00-4.8 [facility] Lymphocytes/100 WBC Auto (Bl d)Ordered By: Chaitanya Luna on 01-14-2023 Lymphocytes/100 WBC (Bld) 35.4 % . [facility] MCH Auto (RBC) [Entitic mass ]Ordered By: Chaitanya Luna on 01-14-2023 MCH (RBC) [Entitic mass] 31.4 pg 24.7-34.3 [facility] MCHC Auto (RBC) [Mass/Vol]Or dered By: Chaitanya Luna on 01-14-2023 MCHC (RBC) [Mass/Vol] 34.1 g/dL 32.0-35.0 [facility] MCV Auto (RBC) [Entitic vol] Ordered By: Chaitanya Luna on 01-14-2023 MCV (RBC) [Entitic vol] 92.1 fL 80-100 [facility] Monocyte distribution width [Entitic volume] in Blood by AutomatedOrdered By: Chaitanya Luna on 01-14-2023 Monocyte distribution width Auto (Bld) [Entitic vol] 17.24 % 0.00-20.00 [facility] Monocytes Auto (Bld) [#/Vol] Ordered By: Chaitanya Luna on 01-14-2023 Monocytes (Bld) [#/Vol] 0.5 10*3/uL 0.0-0.8 [facility] Monocytes/100 WBC Auto (Bld) Ordered By: Chaitanya Luna on 01-14-2023 Monocytes/100 WBC (Bld) 8.9 % . [facility] Natriuretic peptide B [Mass/ Vol]Ordered By: Chaitanya Luna on 01-14-2023 Natriuretic peptide B (Bld) [Mass/Vol] 191.0 pg/mL 5-100 [facility] Neutrophils Auto (Bld) [#/Vo l]Ordered By: Chaitanya Luna on 01-14-2023 Neutrophils (Bld) [#/Vol] 3.1 10*3/uL 1.8-7.7 [facility] Neutrophils/100 WBC Auto (Bl d)Ordered By: Chaitanya Luna on 01-14-2023 Neutrophils/100 WBC (Bld) 51.4 % . [facility] No Panel InformationOrdered By: Chaitanya Luna on 01-14-2023 Estimated GFR (CKD-EPI) > 60.0 mL/Min [facility] Creatinine Clearance (Chem 49.92 [facility] Nucleated erythrocytes [Pres ence] in Blood by Automated countOrdered By: Chaitanya Luna on 01-14-2023 Nucleated RBC Auto Ql (Bld) 0.1 /100{WBC} 0-0.5 [facility] Platelet mean volume Auto (B ld) [Entitic vol]Ordered By: Chaitanya Luna on 01-14-2023 Platelet mean volume (Bld) [Entitic vol] 8.3 fL 6.3-10.7 [facility] Platelet poor plasma interna tional normalized ratio (INR) by coagulation assay (relatOrdered By: Chaitanya Luna on 01-14-2023 INR Coag (PPP) [Relative time] 1.0 {INR} [facility] Comment on above: INR Therapeutic Rang [...] 01-14-2023 Platelets (Bld) [#/Vol] 183 10*3/uL 150-450 [facility] Potassium [Moles/volume] in Serum or PlasmaOrdered By: Chaitanya Luna on 01-14-2023 Potassium [Moles/Vol] 3.1 mmol/L 3.5-5.1 [facility] Protein [Mass/volume] in Ser um or PlasmaOrdered By: Chaitanya Luna on 01-14-2023 Protein [Mass/Vol] 6.4 g/dL 6.4-8.9 [facility] RBC Auto (Bld) [#/Vol]Ordere d By: Chaitanya Luna on 01-14-2023 RBC (Bld) [#/Vol] 3.64 10*6/uL 3.60-5.00 [facility] Serum or plasma albumin/glob ulin mass ratioOrdered By: Chaitanya Luna on 01-14-2023 Albumin/Globulin [Mass ratio] 2.0 {ratio} [facility] Serum or plasma anion gap de terminationOrdered By: Chaitanya Luna on 01-14-2023 Anion gap [Moles/Vol] 15.2 mmol/L 6.0-15.0 [facility] Sodium [Moles/volume] in Ser um or PlasmaOrdered By: Chaitanya Luna on 01-14-2023 Sodium [Moles/Vol] 141 mmol/L 136-145 [facility] Troponin I.cardiac [Mass/vol ume] in Serum or Plasma by Detection limit <= 0.01 ng/Ordered By: Chaitanya Luna on 01-14-2023 Troponin I.cardiac DL <= 0.01 ng/mL [Mass/Vol] 43.4 pg/mL 0.0-15.0 [facility] Urea nitrogen [Mass/volume] in Serum or PlasmaOrdered By: Chaitanya Luna on 01-14-2023 Urea nitrogen [Mass/Vol] 20 mg/dL 7-25 [facility] WBC Auto (Bld) [#/Vol]Ordere d By: Chaitanya Luna on 01-14-2023 WBC (Bld) [#/Vol] 5.9 10*3/uL 3.8-11.6 [facility] LIPID PROFILEon 12-03-2022 CHOL-HDL RATIO NORM SEE BELOW Normal [facility] Comment on above: Result Comment: 3.3 - 4.4 LOW RISK 4.4 - 7.1 AVERAGE RISK 7.1 - 11.0 MODERATE RISK >11.0 HIGH RISK Performed By: #### B MP, LIPID, AST #### [facility] [address] [address] [address] Cynthia Arroyo Cholesterol [Mass/Vol] 167 mg/dL Normal <=[address] [facility] Comment on above: Performed By: #### B MP, LIPID, AST #### [facility] [address] [address] [address] Cynthia Arroyo Cholesterol in HDL [Mass/Vol] 40 mg/dL Normal 40-60 [facility] Comment on above: Performed By: #### B MP, LIPID, AST #### [facility] [address] [address] [address] Cynthia Arroyo Cholesterol in LDL [Mass/Vol] 101.8 mg/dL Normal [facility] Comment on above: Performed By: #### B MP, LIPID, AST #### [facility] [address] [address] [address] Cynthia Arroyo Cholesterol.total/Chol esterol in HDL [Mass ratio] 4.2 {ratio} Normal [facility] Comment on above: Performed By: #### B MP, LIPID, AST #### [facility] [address] [address] [address] Cynthia Arroyo HDL NORMAL > or = 60 mg/dl - LO W CARDIOVASCULAR RISK <40 mg/dl - HIGH CARDIOVASCULAR RISK Normal [facility] Comment on above: Performed By: #### B MP, LIPID, AST #### [facility] [address] [address] [address] Cynthia Arroyo LDL CALC NORMAL SEE BELOW Normal [facility] Comment on above: Result Comment: <100 mg/dl OPTIMAL 100 - 129 mg/dl NEAR OR ABOVE OPTIMAL 130 - 159 mg/dl BORDERLINE HIGH 160 - 189 mg/dl HIGH >190 mg/dl VERY HIGH Performed By: #### B MP, LIPID, AST #### [facility] [address] [place] [address] Dr. Cynthia Arroyo Triglyceride [Mass/Vol] 126 mg/dL Normal <=150 [facility] Comment on above: Performed By: #### B MP, LIPID, AST #### [facility] [address] [place] [address] Dr. Cynthia Arroyo VLDL CALC 25.2 mg/dL Normal [facility] Comment on above: Performed By: #### B MP, LIPID, AST #### [facility] [address] [place] [address] Dr. Cynthia Arroyo PROF CHEM 8 (BAS METB)on Anion gap [Moles/Vol] 13.1 mmol/L Normal [facility] Comment on above: Performed By: #### B MP, LIPID, AST #### [facility] [address] [place] [address] Dr. Cynthia Arroyo Calcium [Mass/Vol] 9.1 mg/dL Normal 8.5-10.1 [facility] Comment on above: Performed By: #### B MP, LIPID, AST #### [facility] [address] [place] [address] Dr. Cynthia Arroyo Chloride [Moles/Vol] 102 mmol/L Normal 98-107 [facility] Comment on above: Performed By: #### B MP, LIPID, AST #### [facility] [address] [place] [address] Dr. Cynthia Arroyo CO2 [Moles/Vol] 28.3 mmol/L Normal 21.0-32.0 [facility] Comment on above: Performed By: #### B MP, LIPID, AST #### [facility] [address] [place] [address] Dr. Cynthia Arroyo Creatinine [Mass/Vol] 1.04 mg/dL Critically high 0.55-1.02 [facility] Comment on above: Performed By: #### B MP, LIPID, AST #### [facility] [address] [address] [address] Cynthia Arroyo EGFR-AF CONGOLESE >60 Normal >=60 [facility] Comment on above: Performed By: #### B MP, LIPID, AST #### [facility] [address] [address] [address] Cynthia Arroyo EGFR-NON AF CONGOLESE 51 mL/min/1.73m2 Critically low >=60 [facility] Comment on above: Performed By: #### B MP, LIPID, AST #### [facility] [address] [address] [address] Cynthia Arroyo Glucose [Mass/Vol] 94 mg/dL Normal 74-106 [facility] Comment on above: Performed By: #### B MP, LIPID, AST #### [facility] [address] [place] [address] Dr. Cynthia Arroyo Potassium [Moles/Vol] 4.4 mmol/L Normal 3.5-5.1 [facility] Comment on above: Performed By: #### B MP, LIPID, AST #### [facility] [address] [address] [address] Cynthia Arroyo Sodium [Moles/Vol] 139 mmol/L Normal 136-145 [facility] Comment on above: Performed By: #### B MP, LIPID, AST #### [facility] [address] [place] [address] Dr. Cynthia Arroyo Urea nitrogen [Mass/Vol] 18.0 mg/dL Normal 7.0-18.0 [facility] Comment on above: Performed By: #### B MP, LIPID, AST #### [facility] [address] [place] [address] Dr. Cynthia Arroyo Urea nitrogen/Creatinine [Mass ratio] 17.3 mg/mg Normal [facility] Comment on above: Performed By: #### B MP, LIPID, AST #### [facility] [address] [address] [address] Cynthia Arroyo SGJankin 12-03-2022 AST [Catalytic activity/Vol] 13 U/L Critically low 15-37 [facility] Comment on above: Performed By: #### B MP, LIPID, AST #### [facility] [address] [place] [address] Dr. Cynthia Arroyo Urinalysis - DIPSTICKon 09-03 Appearance (U) clear [facility] Other Bilirubin Ql (U) small [employer] Other Color (U) opal [employer] Other Glucose Ql (U) Negative [facility] Other Hemoglobin Ql (U) Negative [employer] Other Ketones Ql (U) Negative [facility] [employer] Other Leukocyte esterase Test strip Ql (U) trace [employer] Other Nitrite Ql (U) Negative [facility] [employer] Other pH (U) 5 [pH] [employer] Other Protein Ql (U) Negative [facility] [employer] Other Specific gravity (U) [Rel density] 1.010 [employer] Other Urobilinogen (U) [Mass/Vol] 0.2 mg/dL [employer] Other Urinalysis - DIPSTICK [employer] Other Office Visit (Cardiology)on 06-04-2022 Follow-up visit [...] 04Jun2022 05:32PMRecorded: 04Jun2022 03:21PM Heart Rate72, R Rcercd63, L Radial Krocjkvt159, RUE, Aemawdv097, Sitting Sdtwprotz83, RUE, Njuwnmq20, Sitting Height5 ft 5 in5 ft 5 in Dvyyqu403 lb 157 lb BMI Jagzremjmm62.13 kg/m226.13 kg/m2 BSA Calculated1.781.78 Tobacco Useb) No [...] Jun 04 2022 5:33PM EST (Author) Normal [employer] Tobacco Screening.on 022 Adult depression screening assessment No [facility] y 250 DO Work Phone: Fall risk assessment a) No falls within the last year [facility] 250 DO Work Phone: Tobacco use status [facility] b) No [facility] 250 DO Work Phone: MG MAMM SCREEN 3D DEREK CADon 05-21-2022 MG MAMM SCREEN 3D DEREK CAD Patient: ATIYA JHA Exam Date: 05/21/2022 : 1940 Gender:F Ordering : DR EDER LAURENT . Admission #: [id number] Family : Order #: [id number] CLICK HERE TO VIEW EXAM RADIOLOGY REPORT [...] No Treatments None Family Cancers None LOCATION: [facility] BREAST COMPOSITION: Heterogeneously dense,which may obscure small [...] King M.D. on 05/21/2022 at 15:56 Normal [facility] XR DEXA BONE DENSITYon 05-21 XR DEXA [...] by: YOSELIN KING Date: 2022-05-21 19:19 Normal [facility] PAP ACOG PANEL 2: 30 to 65on 05-15-2022 . . Normal [facility] Comment on above: Result Comment: Perf ormed at: BA Performed By: #### [id number] #### [facility] [address] [place] [address] Dr. Cynthia Arroyo Age Gdln ACOG Testing Comment Normal [facility] Comment on above: Result Comment: <21 or >65 or no age provided Performed By: #### [id number] #### [facility] [address] [place] [address] Dr. Cynthia Arroyo DIAGNOSIS: Comment Normal [facility] Comment on above: Result Comment: NEGA TIVE FOR INTRAEPITHELIAL LESION OR MALIGNANCY. CELLULAR CHANGES ASSOCIATED WITH ATROPHY ARE PRESENT. THIS SPECIMEN WAS RESCREENED PART OF OUR [employer]PER[employer] PROGRAM. Performed at: BA Performed By: #### [id number] #### [facility] [address] [place] [address] Dr. Cynthia Arroyo Methodology: Comment Normal [facility] Comment on above: Result Comment: This liquid based ThinPrep(R) pap test was screened with the use of an image guided system. Performed at: WB Performed By: #### [id number] #### [facility] [address] [place] [address] Dr. Cynthia Arroyo Note: Comment Normal [facility] Comment on above: Result Comment: The Pap smear is a screening test designed to aid in the detection of premalignant and malignant conditions of the uterine cervix. It is not a diagnostic procedure and should not be used as the sole means of detecting cervical cancer. Both false-positive and false-negative reports do occur. . Performed at: WB Performed By: #### [id number] #### [facility] [address] [place] [address] Dr. Cynthia Arroyo Performed by: Comment Normal [facility] Comment on above: Result Comment: Jimbo Olivares, Sexual Health Physician (ASCP) Performed at: BA Performed By: #### [id number] #### [facility] [address] [address] [address] Cynthia Arroyo QC reviewed by: Comment Normal [facility] Comment on above: Result Comment: Lenny Hanks, Sexual Health Physician (ASCP) Performed at: BA Performed By: #### [id number] #### [facility] [address] [address] [address] Cynthia Arroyo Specimen adequacy: Comment Normal [place] [facility] Comment on above: Result Comment: Sati sfactory for evaluation. Endocervical component may not be distinguished in cases of atrophy. Performed at: [facility] Performed By: #### [id number] #### [facility] [address] [id number] [address] Cynthia Arroyo Vital Signs Date Time Vital Sign Value Performing Clinician Facility 05-27-2024 14:13-0400 Body height 165.1 cm [facility] 05-27-2024 14:13-0400 Body mass index (BMI) [Ratio] 24 kg/m2 [facility] 05-27-2024 14:13-0400 Body weight 65.54 kg [facility] 05-27-2024 14:13-0400 Diastolic blood pressure 90 mm[Hg] [facility] 05-27-2024 14:13-0400 Heart rate 78 /min [facility] 05-27-2024 14:13-0400 Respiratory rate 12 /min [facility] 05-27-2024 14:13-0400 Systolic blood pressure 175 mm[Hg] [facility] 05-26-2024 08:38-0400 Body height 162.6 cm Ramone Perkins MD Work Phone: [facility] 05-26-2024 08:38-0400 Body mass index (BMI) [Ratio] 25.23 kg/m2 Ramone Perkins MD Work Phone: [facility] 05-26-2024 08:38-0400 Body weight 66.68 kg Ramone Perkins MD Work Phone: [facility] 05-25-2024 10:16-0400 Body mass index (BMI) [Ratio] 24.13 kg/m2 Jordan Visci DO Work Phone: [facility] 05-25-2024 10:16-0400 Body weight 65.77 kg Jordan Visci DO Work Phone: [facility] 05-25-2024 10:16-0400 Diastolic blood pressure 76 mm[Hg] Jordan Visci DO Work Phone: [facility] 05-25-2024 10:16-0400 Systolic blood pressure 132 mm[Hg] Jordan Visci DO Work Phone: [facility] 05-03-2024 12:19-0400 Body height 162.6 cm Kendy Nienberg LAST CODE STRIPER-DUMP TRUCK OPERATOR Work Phone: [facility] 05-03-2024 12:19-0400 Body mass index (BMI) [Ratio] 25.23 kg/m2 Kendy Nienberg LAST CODE STRIPER-DUMP TRUCK OPERATOR Work Phone: [facility] 05-03-2024 12:19-0400 Body weight 66.68 kg Kendy Nienberg LAST CODE STRIPER-DUMP TRUCK OPERATOR Work Phone: [facility] 05-03-2024 12:19-0400 Diastolic blood pressure 85 mm[Hg] Kendy Nienberg LAST CODE STRIPER-DUMP TRUCK OPERATOR Work Phone: [facility] 05-03-2024 12:19-0400 Heart rate 64 /min Kendy Nienberg LAST CODE STRIPER-DUMP TRUCK OPERATOR Work Phone: [facility] 05-03-2024 12:19-0400 Respiratory rate 20 /min Kendy Pakenberg LAST CODE STRIPER-DUMP TRUCK OPERATOR Work Phone: [facility] 05-03-2024 12:19-0400 Systolic blood pressure 199 mm[Hg] Kendy Nienberg LAST CODE STRIPER-DUMP TRUCK OPERATOR Work Phone: [facility] 04-25-2024 10:48-0400 Body height 165.1 cm DO Jordan Visci Work Phone: [facility] 04-25-2024 10:48-0400 Body mass index (BMI) [Ratio] 24.6 kg/m2 DO Jordan Visci Work Phone: [facility] 04-25-2024 10:48-0400 Body weight 67.13 kg DO Jordan Visci Work Phone: [facility] 04-25-2024 10:48-0400 Diastolic blood pressure 78 mm[Hg] DO Jordan Visci Work Phone: [facility] 04-25-2024 10:48-0400 Heart rate 82 /min DO Jordan Visci Work Phone: [facility] 04-25-2024 10:48-0400 SaO2% (BldA) [Mass fraction] 98 % DO Jordan Visci Work Phone: [facility] 04-25-2024 10:48-0400 Systolic blood pressure 146 mm[Hg] DO Jordan Visci Work Phone: [facility] 03-02-2024 10:03-0400 Body height 165.1 cm DO Danis Ball Work Phone: [facility] 03-02-2024 10:03-0400 Body mass index (BMI) [Ratio] 25.5 kg/m2 DO Danis Ball Work Phone: [facility] 03-02-2024 10:03-0400 Body weight 69.56 kg DO Danis Ball Work Phone: [facility] 03-02-2024 10:03-0400 Diastolic blood pressure 89 mm[Hg] DO Danis Ball Work Phone: [facility] 03-02-2024 10:03-0400 Heart rate 65 /min DO Danis Ball Work Phone: [facility] 03-02-2024 10:03-0400 Respiratory rate 12 /min DO Danis Ball Work Phone: [facility] 03-02-2024 10:03-0400 Systolic blood pressure 139 mm[Hg] DO Danis Ball Work Phone: [facility] 03-01-2024 14:17-0400 Blood Pressure Location Jersonelisabeth [address] [facility] 03-01-2024 14:17-0400 Body temperature 96.8 [degF] Jersonelisabeth [address]RE[address]ER [facility] 03-01-2024 14:17-0400 Diastolic blood pressure 66 mm[Hg] Jerson STRE[address]ER [facility] 03-01-2024 14:17-0400 Heart rate 62 /min Jersonelisabeth [address]RE[address] [facility] 03-01-2024 14:17-0400 Respiratory rate 18 /min Jersonelisabeth [address] [facility] 03-01-2024 14:17-0400 Systolic blood pressure 126 mm[Hg] Jersonelisabeth [address]ER [facility] 02-08-2024 11:02-0400 Blood Pressure Location Antonina Galea [facility] 02-08-2024 11:02-0400 Diastolic blood pressure 84 mm[Hg] Antonina Galea [facility] 02-08-2024 11:02-0400 Heart rate 60 /min Antonina Galea [facility] 02-08-2024 11:02-0400 Systolic blood pressure 143 mm[Hg] Antonina Galea [facility] 01-12-2024 09:44-0400 Body height 165.1 cm Darryl Santillan MD Work Phone: [facility] 01-12-2024 09:44-0400 Body mass index (BMI) [Ratio] 24.63 kg/m2 Darryl Santillan MD Work Phone: [facility] 01-12-2024 09:44-0400 Body weight 67.13 kg Darryl Santillan MD Work Phone: [facility] 01-12-2024 09:44-0400 Diastolic blood pressure 73 mm[Hg] Darryl Santillan MD Work Phone: [facility] 01-12-2024 09:44-0400 Heart rate 65 /min Darryl Santillan MD Work Phone: [facility] 01-12-2024 09:44-0400 Systolic blood pressure 152 mm[Hg] Darryl Santillan MD Work Phone: [facility] 12-24-2023 09:21-0400 Body height 165.1 cm DO Danis Ball Work Phone: [facility] 12-24-2023 09:21-0400 Body mass index (BMI) [Ratio] 25.4 kg/m2 DO Danis Ball Work Phone: [facility] 12-24-2023 09:21-0400 Body weight 69.45 kg DO Danis Ball Work Phone: [facility] 12-24-2023 09:21-0400 Diastolic blood pressure 74 mm[Hg] DO Danis Ball Work Phone: [facility] 12-24-2023 09:21-0400 Heart rate 71 /min DO Danis Ball Work Phone: [facility] 12-24-2023 09:21-0400 Respiratory rate 16 /min DO Danis Ball Work Phone: [facility] 12-24-2023 09:21-0400 Systolic blood pressure 149 mm[Hg] DO Danis Ball Work Phone: [facility] 12-23-2023 09:08-0400 Diastolic blood pressure 70 mm[Hg] DO Danis Ball Work Phone: [facility] 12-23-2023 09:08-0400 Heart rate 63 /min DO Danis Ball Work Phone: [facility] 12-23-2023 09:08-0400 Respiratory rate 20 /min DO Danis Ball Work Phone: [facility] 12-23-2023 09:08-0400 SaO2% (BldA) [Mass fraction] 95 % DO Danis Ball Work Phone: [facility] 12-23-2023 09:08-0400 Systolic blood pressure 180 mm[Hg] DO Danis Ball Work Phone: [facility] 12-23-2023 07:55-0400 Body height 165.1 cm DO Danis Ball Work Phone: [facility] 12-23-2023 07:55-0400 Body temperature 98.2 [degF] DO Danis Ball Work Phone: [facility] 12-23-2023 07:55-0400 Body weight 72.6 kg DO Danis Ball Work Phone: [facility] 11-30-2023 10:23-0400 Diastolic blood pressure 56 mm[Hg] Sulma Busby LAST CODE STRIPER-DUMP TRUCK OPERATOR Work Phone: [facility] 11-30-2023 10:23-0400 Systolic blood pressure 102 mm[Hg] Sulma Busby LAST CODE STRIPER-DUMP TRUCK OPERATOR Work Phone: [facility] 11-30-2023 10:18-0400 Body height 165.1 cm Sulma Busby LAST CODE STRIPER-DUMP TRUCK OPERATOR Work Phone: [facility] 11-30-2023 10:18-0400 Body mass index (BMI) [Ratio] 24.63 kg/m2 Sulma Busby LAST CODE STRIPER-DUMP TRUCK OPERATOR Work Phone: [facility] 11-30-2023 10:18-0400 Body weight 67.13 kg Sulma Busby LAST CODE STRIPER-DUMP TRUCK OPERATOR Work Phone: [facility] 11-30-2023 10:18-0400 Heart rate 68 /min Sulma Busby LAST CODE STRIPER-DUMP TRUCK OPERATOR Work Phone: [facility] 11-19-2023 07:39-0400 Body temperature 97.5 [degF] DO Danis Ball Work Phone: [facility] 11-19-2023 07:39-0400 Diastolic blood pressure 65 mm[Hg] DO Danis Ball Work Phone: [facility] 11-19-2023 07:39-0400 Heart rate 71 /min DO Danis Ball Work Phone: [facility] 11-19-2023 07:39-0400 Respiratory rate 20 /min DO Danis Ball Work Phone: [facility] 11-19-2023 07:39-0400 SaO2% (BldA) [Mass fraction] 98 % DO Danis Ball Work Phone: [facility] 11-19-2023 07:39-0400 Systolic blood pressure 132 mm[Hg] DO Danis Ball Work Phone: [facility] 11-19-2023 04:32-0400 Body weight 68 kg DO Danis Ball Work Phone: [facility] 11-18-2023 12:31-0400 Body height 165.1 cm DO Danis Ball Work Phone: [facility] 11-10-2023 08:59-0400 Diastolic blood pressure 78 mm[Hg] [address] 11-10-2023 08:59-0400 Heart rate 61 /min [address] 11-10-2023 08:59-0400 Systolic blood pressure 128 mm[Hg] [address] 10-27-2023 08:46-0400 Diastolic blood pressure 53 mm[Hg] Celina CAMPBELL Work Phone: [facility] 10-27-2023 08:46-0400 Heart rate 76 /min Celina CAMPBELL Work Phone: [facility] 10-27-2023 08:46-0400 Respiratory rate 20 /min Celina CAMPBELL Work Phone: [facility] 10-27-2023 08:46-0400 Systolic blood pressure 98 mm[Hg] Celina ACMPBELL Work Phone: [facility] 10-20-2023 13:51-0400 Body height 165.1 cm [facility] 10-20-2023 13:51-0400 Body mass index (BMI) [Ratio] 25.2 kg/m2 [facility] 10-20-2023 13:51-0400 Body weight 68.94 kg [facility] 10-20-2023 13:51-0400 Diastolic blood pressure 80 mm[Hg] [facility] 10-20-2023 13:51-0400 Heart rate 60 /min [facility] 10-20-2023 13:51-0400 Respiratory rate 12 /min [facility] 10-20-2023 13:51-0400 Systolic blood pressure 145 mm[Hg] [facility] 08-14-2023 09:15-0500 Body height 165.1 cm Danis Ball Other [facility] 08-14-2023 09:15-0500 Body mass index (BMI) [Ratio] 26.56 kg/m2 Danis Ball Other [employer] Other 08-14-2023 09:15-0500 Body weight 72.39 kg Danis Ball Other [facility] 08-14-2023 09:15-0500 Diastolic blood pressure 80 mm[Hg] Danis Ball Other [facility] 08-14-2023 09:15-0500 Respiratory rate 12 /min Danis Ball Other [employer] Other 08-14-2023 09:15-0500 Systolic blood pressure 138 mm[Hg] Danis Ball Other [facility] 07-02-2023 11:00-0500 Body height 165.1 cm Danis Ball Other [employer] Other 07-02-2023 11:00-0500 Body mass index (BMI) [Ratio] 25.96 kg/m2 Danis Ball Other [employer] Other 07-02-2023 11:00-0500 Body weight 70.76 kg Danis Ball Other [employer] Other 07-02-2023 11:00-0500 Diastolic blood pressure 77 mm[Hg] Danis Ball Other [employer] Other 07-02-2023 11:00-0500 Respiratory rate 12 /min Danis Ball Other [employer] Other 07-02-2023 11:00-0500 Systolic blood pressure 128 mm[Hg] Danis Ball Other [employer] Other 06-15-2023 09:14-0500 Body height 165.1 cm Darryl Santillan MD Work Phone: [facility] 06-15-2023 09:14-0500 Body mass index (BMI) [Ratio] 25.96 kg/m2 Darryl Santillan MD Work Phone: [facility] 06-15-2023 09:14-0500 Body weight 70.76 kg Darryl Santillan MD Work Phone: [facility] 06-15-2023 09:14-0500 Diastolic blood pressure 78 mm[Hg] Darryl Santillan MD Work Phone: [facility] 06-15-2023 09:14-0500 Heart rate 62 /min Darryl Santillan MD Work Phone: [facility] 06-15-2023 09:14-0500 Systolic blood pressure 114 mm[Hg] Darryl Santillan MD Work Phone: [facility] 03-16-2023 15:15-0400 Body height 165.1 cm Danis Ball Other [employer] Other 03-16-2023 15:15-0400 Body mass index (BMI) [Ratio] 25.16 kg/m2 Danis Ball Other [employer] Other 03-16-2023 15:15-0400 Body weight 68.58 kg Danis Ball Other [employer] Other 03-16-2023 15:15-0400 Diastolic blood pressure 80 mm[Hg] Danis Ball Other [employer] Other 03-16-2023 15:15-0400 Respiratory rate 12 /min Danis Ball Other [employer] Other 03-16-2023 15:15-0400 Systolic blood pressure 127 mm[Hg] Danis Ball Other [employer] Other 02-27-2023 14:00-0400 Body height 165.1 cm Danis Ball Other [employer] Other 02-27-2023 14:00-0400 Body mass index (BMI) [Ratio] 25.39 kg/m2 Danis Ball Other [employer] Other 02-27-2023 14:00-0400 Body weight 69.22 kg Danis Ball Other [employer] Other 02-27-2023 14:00-0400 Diastolic blood pressure 85 mm[Hg] Danis Ball Other [employer] Other 02-27-2023 14:00-0400 Respiratory rate 12 /min Danis Ball Other [facility] Other 02-27-2023 14:00-0400 Systolic blood pressure 161 mm[Hg] Danis Ball Other [facility] Other 02-05-2023 12:11-0400 Body height 165.1 cm Danis E Ball Work Phone: [facility] [place] [address] DO Work Phone: 02-05-2023 12:11-0400 Body mass index (BMI) [Ratio] 25.46 kg/m2 Danis E Ball Work Phone: [facility] [address] [place] [address] DO Work Phone: 02-05-2023 12:11-0400 Body surface area Derived from formula 1.77 m2 Danis E Ball Work Phone: [facility] [employer] 250 DO Work Phone: 02-05-2023 12:11-0400 Body weight 69.4 kg Danis E Ball Work Phone: [facility] [employer] 250 DO Work Phone: 02-05-2023 12:11-0400 Diastolic blood pressure 84 mm[Hg] Danis E Ball Work Phone: [facility] [employer] DO Work Phone: 02-05-2023 12:11-0400 Heart rate 60 /min Danis E Ball Work Phone: [facility] [employer] 250 DO Work Phone: 02-05-2023 12:11-0400 Systolic blood pressure 138 mm[Hg] Danis Nowak Ball Work Phone: [facility] 250 DO Work Phone: 01-27-2023 10:45-0400 Body height 165.1 cm Danis Ball Other [facility] Other 01-27-2023 10:45-0400 Body mass index (BMI) [Ratio] 25.49 kg/m2 Danis Ball Other [facility] Other 01-27-2023 10:45-0400 Body weight 69.49 kg Danis Ball Other [facility] Other 01-27-2023 10:45-0400 Diastolic blood pressure 70 mm[Hg] Danis Ball Other [facility] Other 01-27-2023 10:45-0400 Respiratory rate 12 /min Danis Ball Other [facility] Other 01-27-2023 10:45-0400 Systolic blood pressure 103 mm[Hg] Danis Ball Other [facility] Other 01-16-2023 12:00-0400 Body temperature 97.5 [degF] DO Chaitanya Keister Work Phone: [facility] 01-16-2023 12:00-0400 Diastolic blood pressure 81 mm[Hg] DO Chaitanya Keister Work Phone: [facility] 01-16-2023 12:00-0400 Heart rate 67 /min DO Chaitanya Keister Work Phone: [facility] 01-16-2023 12:00-0400 Respiratory rate 20 /min DO Chaitanya Keister Work Phone: [facility] 01-16-2023 12:00-0400 SaO2% (BldA) [Mass fraction] 97 % DO Chaitanya Keister Work Phone: [facility] 01-16-2023 12:00-0400 Systolic blood pressure 122 mm[Hg] DO Chaitanya Keister Work Phone: [facility] 01-16-2023 04:31-0400 Body weight 73.1 kg DO Chaitanya Keister Work Phone: [facility] 01-15-2023 15:08-0400 45 1 Danis Barreto Work Phone: [facility] 250 DO Work Phone: Comment on above: [id number] 01-15-2023 10:45-0400 Body height 172.72 cm DO Chaitanya Keister Work Phone: [facility] 01-14-2023 15:37-0400 Inhaled oxygen flow rate 2 L/min DO Chaitanya Keister Work Phone: [facility] 01-14-2023 11:00-0400 Inhaled oxygen flow rate 4 L/min DO Chaitanya Keister Work Phone: [facility] 01-14-2023 09:19-0400 Diastolic blood pressure 93 mm[Hg] DO Chaitanya Keister Work Phone: [facility] 01-14-2023 09:19-0400 Heart rate 74 /min DO Chaitanya Keister Work Phone: [facility] 01-14-2023 09:19-0400 SaO2% (BldA) [Mass fraction] 97 % DO Chaitanya Keister Work Phone: [facility] 01-14-2023 09:19-0400 Systolic blood pressure 167 mm[Hg] DO Chaitanya Keister Work Phone: [facility] 01-14-2023 09:15-0400 Body temperature 96.7 [degF] DO Chaitanya Keister Work Phone: [facility] 01-14-2023 09:14-0400 Respiratory rate 20 /min DO Chaitanya Keister Work Phone: [facility] 01-14-2023 09:07-0400 Body height 165.1 cm DO Chaitanya Keister Work Phone: [facility] 01-14-2023 09:07-0400 Body weight 74 kg DO Chaitanya Keister Work Phone: [facility] 09-17-2022 12:00-0500 Body height 165.1 cm Danis Ball Other [facility] Other 09-17-2022 12:00-0500 Body mass index (BMI) [Ratio] 26.12 kg/m2 Danis Ball Other [facility] Other 09-17-2022 12:00-0500 Body weight 71.22 kg Danis Ball Other [facility] Other 09-17-2022 12:00-0500 Diastolic blood pressure 82 mm[Hg] Danis Ball Other [facility] Other 09-17-2022 12:00-0500 Respiratory rate 12 /min Danis Ball Other [facility] Other 09-17-2022 12:00-0500 Systolic blood pressure 136 mm[Hg] Danis Ball Other [facility] Other 06-04-2022 17:32-0400 Body height 165.1 cm Danis E Ball Work Phone: [facility] [place] [address] DO Work Phone: 06-04-2022 17:32-0400 Body mass index (BMI) [Ratio] 26.13 kg/m2 Danis E Ball Work Phone: [facility] [employer] 250 DO Work Phone: 06-04-2022 17:32-0400 Body surface area Derived from formula 1.78 m2 Danis E Ball Work Phone: [facility] 250 DO Work Phone: 06-04-2022 17:32-0400 Body weight 71.22 kg Danis E Ball Work Phone: [facility] 250 DO Work Phone: 06-04-2022 17:32-0400 Diastolic blood pressure 74 mm[Hg] Danis E Ball Work Phone: [facility] DO Work Phone: 06-04-2022 17:32-0400 Heart rate 72 /min Danis E Ball Work Phone: [facility] 250 DO Work Phone: 06-04-2022 17:32-0400 Systolic blood pressure 137 mm[Hg] Danis E Ball Work Phone: [facility] 250 DO Work Phone: 06-04-2022 15:21-0400 Body height 165.1 cm Danis E Ball Work Phone: [facility] [address] DO Work Phone: 06-04-2022 15:21-0400 Body mass index (BMI) [Ratio] 26.13 kg/m2 Danis E Ball Work Phone: [facility] 250 DO Work Phone: 06-04-2022 15:21-0400 Body surface area Derived from formula 1.78 m2 Danis E Ball Work Phone: [facility] 250 DO Work Phone: 06-04-2022 15:21-0400 Body weight 71.22 kg Danis E Ball Work Phone: [facility] DO Work Phone: 06-04-2022 15:21-0400 Diastolic blood pressure 68 mm[Hg] Danis Barreto Work Phone: [facility] [address] DO Work Phone: 06-04-2022 15:21-0400 Heart rate 72 /min Danis Barreto Work Phone: [facility] [address] DO Work Phone: 06-04-2022 15:21-0400 Systolic blood pressure 144 mm[Hg] Dains Barreto Work Phone: [facility] DO Work Phone: Encounters Encounter Date Encounter Type Care Provider Facility Start: 05-27-2024 End: 05-27-2024 ambulatory [facility] Work Phone: Start: 05-27-2024 End: 05-27-2024 Patient encounter procedure [facility] Work Phone: Start: 05-26-2024 End: 05-26-2024 Office outpatient new 45 minutes Ramone Perkins MD Work Phone: [facility] Comment on above: Spondylolisthesis of lumbar region (Primary Dx); Lumbar spine pain Start: 05-25-2024 End: 05-25-2024 Bamboo flowsheet Jordan A Visci DO Work Phone: [facility] Start: 05-25-2024 End: 05-25-2024 Bamboo flowsheet Jordan A Visci DO Work Phone: [facility] Start: 05-25-2024 End: 05-25-2024 Office outpatient visit 15 minutes Jordan A Visci DO Work Phone: [facility] Comment on above: Pessary maintenance; Cystocele with rectocele; Urethral caruncle; Vaginal atrophy Start: 05-25-2024 End: 05-25-2024 ambulatory JORDAN A VISCI Not Available Start: 05-20-2024 ambulatory Jerson Lawrence ty:[facility] [place] [employer] Start: 05-18-2024 ambulatory DANIS BARRETO [facility] Start: 05-17-2024 End: 05-17-2024 Telephone encounter Jamaica Zamora RN [facility] Comment on above: mri Start: 05-17-2024 End: 05-17-2024 ambulatory AIDAN RAMÍREZDLESTON Not Available Start: 05-12-2024 ambulatory Jerson R SYL Lawrence ty:[id number] Start: 05-10-2024 End: 05-10-2024 Bamboo flowsheet Adian Suazo DO Work Phone: [facility] Start: 05-10-2024 End: 05-10-2024 Bamboo flowsheet Aidan Suazo DO Work Phone: [facility] Start: 05-10-2024 End: 05-10-2024 Office outpatient visit 25 minutes Aidan Suazo DO Work Phone: [facility] Comment on above: 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, unspecified back pain laterality (Primary Dx); Lumbar spine pain; Trigger point Start: 05-10-2024 End: 05-10-2024 ambulatory AIDAN Raudel GOLDIE Not Available Start: 05-06-2024 End: 05-06-2024 ambulatory DARRYL Nowak AARGON [facility] Start: 05-03-2024 End: 05-03-2024 Office outpatient visit 25 minutes Kendy Liao LAST CODE STRIPER-DUMP TRUCK OPERATOR Work Phone: [facility] Comment on above: Disorder of sacrum ( Primary Dx) Start: 05-03-2024 End: 05-03-2024 ambulatory [facility] Start: 05-02-2024 End: 05-10-2024 Telephone encounter Ana Salcedo FINANCIAL ANALYST ACCOUNTANT Work Phone: [facility] Comment on above: injection Start: 04-29-2024 End: 04-29-2024 ambulatory ANA SALCEDO Not Available Start: 04-27-2024 ambulatory Jerson Lawrence ty:ETHEL Sargent Start: 04-25-2024 End: 04-25-2024 ambulatory DO Jordan Visci Work Phone: [facility] Work Phone: Start: 04-25-2024 End: 04-25-2024 Patient encounter procedure DO Jordan Visci Work Phone: [facility] Work Phone: Start: 04-12-2024 End: 04-12-2024 ambulatory DO Jordan Visci Work Phone: [facility] Work Phone: Start: 04-12-2024 End: 04-12-2024 Patient encounter procedure DO Jordan Visci Work Phone: [facility] Work Phone: Start: 04-07-2024 Non-patient / Non-visit DO Austen hard Visci Work Phone: [facility] Work Phone: Start: 03-28-2024 End: 03-28-2024 ambulatory YOSELIN WEIR Not Available Start: 03-02-2024 End: 03-02-2024 ambulatory DO Danis Barreto Work Phone: [facility] Work Phone: Start: 03-02-2024 End: 03-02-2024 Patient encounter procedure DO Danis Barreto Work Phone: [facility] [facility] Work Phone: Start: 03-01-2024 End: 03-01-[address]RE[address]ER Facility:[facility] Start: 03-01-2024 End: 03-01-2024 Patient encounter procedure Jerson STREETER [facility] Start: 03-01-2024 End: 03-01-2024 ambulatory AIDAN SUAZO Not Available Start: 02-24-2024 End: 02-24-2024 Departed Referred DO Danis Barreto Work Phone: [facility] [place] Work Phone: Start: 02-24-2024 End: 02-24-2024 ambulatory DO Danis Barreto Work Phone: [facility] Work Phone: Start: 02-18-2024 End: 04-06-2024 Pre-admission assessment Jerson R STREETER [facility] Start: 02-18-2024 ambulatory Antonina De La Cruzea Facility : [place] Start: 02-11-2024 End: 02-11-2024 ambulatory JORDAN A VISCI Not Available Start: 02-08-2024 End: 02-08-2024 ambulatory Antonina Cooper Facility: [place] Start: 02-08-2024 End: 02-08-2024 Patient encounter procedure Antonina Cooper [facility] Start: 01-29-2024 End: 01-29-2024 ambulatory DO Danis Barreto Work Phone: [facility] Work Phone: Start: 01-29-2024 End: 01-29-2024 Patient encounter procedure DO Danis Barreto Work Phone: [facility] Work Phone: Start: 01-29-2024 End: 01-29-2024 ambulatory JORDAN A VISCI Not Available Start: 01-28-2024 End: 01-28-2024 ambulatory PENOLA P LAUGHLIN Not Available Start: 01-21-2024 End: 01-21-2024 ambulatory PENOLA P LAUGHLIN Not Available Start: 01-18-2024 End: 01-18-2024 ambulatory PENOLA P LAUGHLIN Not Available Start: 01-12-2024 End: 01-12-2024 Office outpatient visit 25 minutes Darryl Santillan MD Work Phone: [facility] Comment on above: Essential hypertensi on (Primary Dx); ASCVD (arteriosclerotic cardiovascular disease); Mixed hyperlipidemia; History of PTCA; Never smoked cigarettes Start: 01-12-2024 End: 01-12-2024 ambulatory DARRYL SANTILLAN [facility] Ambulatory Start: 01-11-2024 End: 01-11-2024 ambulatory HERMILO LAUGHLIN Not Available Start: 01-07-2024 End: 01-07-2024 Patient encounter procedure DO Danis Barreto Work Phone: [facility]Electro[facility] Work Phone: Start: 01-07-2024 End: 01-07-2024 ambulatory DO Danis Barreto Work Phone: [facility] Work Phone: Start: 12-30-2023 End: 12-30-2023 ambulatory HERMILO LAUGHLIN Not Available Start: 12-24-2023 End: 12-24-2023 ambulatory DO Danis Barreto Work Phone: [facility] Work Phone: Start: 12-24-2023 End: 12-24-2023 Patient encounter procedure DO Danis Barreto Work Phone: [facility] Work Phone: Start: 12-23-2023 End: 12-23-2023 Emergency department patient visit DO Danis Barreto Work Phone: [facility]-Emergency Room Work Phone: Start: 12-14-2023 End: 12-14-2023 ambulatory YOSELIN WEIR Not Available Start: 11-30-2023 Non-patient / Non-visit DO Adan Barreto Work Phone: [facility] Work Phone: Start: 11-30-2023 End: 11-30-2023 ambulatory SULMA [facility] Ambulatory Start: 11-30-2023 End: 11-30-2023 Office outpatient visit 15 minutes Sulma Busby LAST CODE STRIPER-DUMP TRUCK OPERATOR Work Phone: [facility] Comment on above: Dysuria (Primary Dx) ; Congestive heart failure, NYHA class 2 and ACC/AHA stage C (Multi); Weakness; ASCVD (arteriosclerotic cardiovascular disease) Start: 11-25-2023 Non-patient / Non-visit DO Adan Barreto Work Phone: [facility] Work Phone: Start: 11-18-2023 End: 11-19-2023 Admission to same day surgery center DO Danis Barreto Work Phone: [facility]-District Sales Leader Work Phone: Start: 11-18-2023 End: 11-19-2023 ambulatory DO Danis Barreto Work Phone: [facility] Work Phone: Start: 11-16-2023 End: 11-16-2023 Patient encounter procedure DO Dnais Barreto Work Phone: [facility] Work Phone: Start: 11-16-2023 End: 11-16-2023 ambulatory DO Danis Barreto Work Phone: [facility] Work Phone: Start: 11-16-2023 Encounter for prepro cedural laboratory examination Allan Townsend [facility] Start: 11-10-2023 End: 11-11-2023 ambulatory DARRYL [facility] Start: 11-10-2023 End: 11-10-2023 Subsequent hospital visit by physician Leyla Strauss Admin Room 1 [facility] Comment on above: ASCVD (arteriosclero tic cardiovascular disease); Chest tightness; Shortness of breath Start: 10-27-2023 Telephone encounter Mallory ARREDONDO [facility] Start: 10-27-2023 End: 10-27-2023 ambulatory CELINA LIAO [facility] Start: 10-27-2023 End: 10-27-2023 Office outpatient visit 25 minutes Celina CAMPBELL Work Phone: [facility] Comment on above: Disorder of sacrum ( Primary Dx) Start: 10-26-2023 End: 10-26-2023 ambulatory MERCEDEZ B APLING Not Available Start: 10-20-2023 End: 10-20-2023 ambulatory [facility] Work Phone: Start: 10-20-2023 End: 10-20-2023 Patient encounter procedure [facility]ician [facility] Work Phone: Start: 10-07-2023 End: 10-07-2023 ambulatory MERCEDEZ B APLING Not Available Start: 09-02-2023 End: 09-02-2023 ambulatory YOSELIN Starks SAMMIE Not Available Start: 08-28-2023 End: 08-28-2023 ambulatory JONI BLAKELY Not Available Start: 08-14-2023 End: 08-14-2023 ambulatory Danis Barreto Other [employer] Other Start: 08-14-2023 Office outpatient vi sit 15 minutes Danis Barreto [facility] Start: 08-14-2023 End: 08-14-2023 [facility] Work Phone: Start: 08-12-2023 End: 08-12-2023 ambulatory MERCEDEZ B APLING Not Available Start: 07-08-2023 End: 07-08-2023 ambulatory MERCEDEZ B APLING Not Available Start: 07-02-2023 End: 07-02-2023 ambulatory Danis [place] Other [employer] Other Start: 07-02-2023 Patient encounter procedure Danis Barreto [facility] Start: 07-01-2023 End: 07-01-2023 ambulatory Danis [place] Other [employer] Other Start: 07-01-2023 Telephone encounter Danis Barreto [facility] Start: 06-16-2023 End: 06-16-2023 ambulatory AIDAN SUAZO Not Available Start: 06-15-2023 End: 06-15-2023 Office outpatient visit 25 minutes Darryl Santillan MD Work Phone: [facility] Comment on above: ASCVD (arteriosclero tic cardiovascular disease) (Primary Dx); Essential hypertension; Mixed hyperlipidemia; Congestive heart failure, NYHA class 2 and ACC/AHA stage C (CMS/HCC); History of PTCA Start: 06-15-2023 End: 06-15-2023 ambulatory DARRYL SANTILLAN [facility] Ambulatory Start: 06-10-2023 End: 06-10-2023 ambulatory Danis Barreto Other [employer] Other Start: 06-10-2023 Telephone encounter Danis Barreto [facility] Start: 05-17-2023 End: 05-17-2023 ambulatory Danis Barreto Other [employer] Other Start: 05-17-2023 Telephone encounter Danis Ball [facility] Start: 05-15-2023 End: 05-15-2023 ambulatory Danis Barreto Other [employer] Other Start: 05-15-2023 Telephone encounter Danis Ball [facility] Start: 05-14-2023 End: 05-14-2023 ambulatory Danis Barreto Other [employer] Other Start: 05-14-2023 Telephone encounter Danis Ball [facility] Start: 05-12-2023 End: 05-12-2023 ambulatory Danis Barreto Other [employer] Other Start: 05-12-2023 Telephone encounter Danis Ball [facility] Start: 03-23-2023 End: 03-23-2023 ambulatory Danis Ball Other [employer] Other Start: 03-23-2023 Telephone encounter Danis Ball [facility] Start: 03-19-2023 Rx Renewal Danis She bermudez Work Phone: [facility] 250 DO Work Phone: Start: 03-16-2023 End: 03-16-2023 ambulatory Danis Barreto Other [facility] Other Start: 03-16-2023 Office outpatient vi sit 15 minutes Danis Barreto [facility] Start: 03-12-2023 Chart Update Danis bermudez Work Phone: [facility] 250 DO Work Phone: Start: 03-11-[address] [facility]ford [id number] Start: 02-27-2023 End: 02-27-2023 ambulatory Danis Barreto Other [facility] Other Start: 02-27-2023 Office outpatient vi sit 15 minutes Danis Barreto [facility] Start: 02-05-2023 Telephone encounter Danis Barreto FP [facility] Start: 02-05-2023 Office outpatient vi sit 25 minutes Danis Nowak [facility] [place] Work Phone: [facility] 250 DO Work Phone: Start: 02-05-2023 End: 02-05-[address] Darryl Santillan II [facility] Other Start: 01-27-2023 End: 01-27-2023 ambulatory Danis Barreto Other [employer] [facility] Other Start: 01-27-2023 Transitional care evangelina jon srvc 14 day discharge Danis Barreto [facility] Start: 01-19-2023 End: 01-19-2023 ambulatory Danis Barreto Other [employer] Other Start: 01-19-2023 Telephone encounter Danis SILVERMAN [facility] Start: 01-16-[address] Danis Barreto Facility:[id number] Start: 01-15-[address] Danis Barreto Facility:[id number] Start: 01-14-2023 End: 01-16-2023 Evaluation and management of inpatient DO Chaitanya Luna Work Phone: [facility] Work Phone: Start: 01-14-[address] Danis Barreto Facility:[id number] Start: 01-14-[address] Danis Barreto Facility:[id number] Start: 01-01-2023 End: 01-01-2023 ambulatory Danis Barreto Other [employer] Other Start: 01-01-2023 Telephone encounter Danis SILVERMAN [facility] Start: 12-03-2022 Telephone encounter Danis SILVERMAN [facility] Start: 12-03-2022 End: 12-04-[address] DARRYL SANTILLAN [employer] Other Start: 09-17-2022 End: 09-17-2022 ambulatory Danis Barreto Other [employer] Other Start: 09-17-2022 Office outpatient vi sit 25 minutes Danis ESPINOSA [facility] Start: 09-16-2022 End: 09-16-2022 ambulatory Danis Barreto Other [employer] Other Start: 09-16-2022 Telephone encounter Danis SILVERMAN [facility] Start: 08-25-2022 End: 08-25-2022 ambulatory Danis Barreto Other [employer] Other Start: 08-25-2022 Telephone encounter Danis SILVERMAN [facility] Start: 06-30-2022 Adult health examination Ronnell monty Barreto Other [employer] Other Start: 06-30-2022 Gynecological examin ation normal Danis Barreto Other [employer] Other Start: 06-04-2022 Office outpatient vi sit 15 minutes Danis Barreto Work Phone: [facility] 250 DO Work Phone: Start: 06-04-[address] Danis Barreto Facility: Start: 05-21-2022 End: 05-22-[address] EDER LAURENT . Facility:[facility]1 Start: 2022 End: [address] EDER LAURENT . Facility:[facility] Start: 05-05-2022 End: 05-05-2022 Pre-procedure evaluation check Danis Barreto Other [facility] Other Start: 03-11-2017 Ambulatory SULMA Ivory BUSBY Facility: [id number] Start: 09-27-2010 End: 09-27-2010 ambulatory Arun Chino Work Phone: Pain Management Comment on above: Patient Education Procedures Date Procedure Procedure Detail Performing Clinician Start: 05-10-2024 Injection single/power wood sawyer trigger point 1/2 muscles Aidan Suazo DO Work Phone: Start: 03-01-2024 Cystoscopy Jerson STREETER Start: 02-24-2024 Urine culture DO Danis Barreto Work Phone: Start: 02-11-2024 Fitting of pessary Jerson STREETER Start: 12-23-2023 Plain chest X-ray DO Danis Barreto Work Phone: Start: 11-30-2023 FOLLOW UP IN CARDIOLOGY DARRYL SANTILLAN Start: 11-18-2023 DO Danis Barreto Work Phone: Start: 11-18-2023 CL Closure Device Placement 0 DO Danis Barreto Work Phone: Start: 11-18-2023 CL LHC & COR Angio DO Danis Ball Work Phone: Start: 11-18-2023 CL Stent 1st Vessel LAD GRIFFIN DO Danis [employer] Work Phone: Start: 11-10-2023 NUCLEAR STRESS TEST DARRYL SANTILLAN Start: 11-10-2023 Cv strs tst xers&/or rx cont ecg trcg only Darryl Santillan MD Work Phone: Start: 10-07-2023 History of placement of stent for coronary artery disease History of heart artery stent Ana Salecdo NP Work Phone: Start: 08-28-2023 History of decompression of median nerve History of bilateral carpal tunnel release Ana Salcedo NP Work Phone: Start: 06-15-2023 History of percutaneous [...] ter Work Phone: Start: 01-14-2023 DO Chaitanya Luna Work Phone: Start: 2022 Screening for malignant neoplasm of breast Danis Barreto Other Start: 08-03-2011 Total colonoscopy Danis Barreto Work Phone: Abdominoplasty Danis Nowak Ba ll Work Phone: Abdominoplasty Antonina Galea Blepharoplasty Danis E Ba ll Work Phone: Blepharoplasty Antonina Galea Cardiac catheterization Benj elver Barreto Work Phone: Cardiac catheterization Keyla handley Galea Cataract surgery Danis Barreto Work Phone: Cataract surgery Antonina Gale a Depression screening Harvinder Barreto Other History of percutane ous transluminal coronary angioplasty History of PTCA Danis Barreto Work Phone: History of percutane ous transluminal coronary angioplasty History of PTCA Darryl Santillan MD Work Phone: History of placement of stent for coronary artery disease History of heart artery stent DO Chaitanya Luna Work Phone: Percutaneous translu charisse coronary angioplasty Danis Barreto Work Phone: Total replacement of hip Adan Barreto Work Phone: Total replacement of hip Evgeny Cooper Plan of Treatment Date Care Activity Detail Author Start: 05-26-2025 Adult BMI Screening Adult BMI Screening [facility] Start: 05-26-2025 Tobacco Screening Tobacco Screening [facility] Start: 05-03-2025 Adult BMI Screening Adult BMI Screening [facility] Start: 05-03-2025 Tobacco Screening Tobacco Screening [facility] Start: 01-06-2025 Echocardiography [facility] Start: 10-26-2024 Tobacco Screening Tobacco Screening [facility] Start: 10-10-2024 End: 10-10-2024 Patient encounter procedure 10/10/2024 9:30 AM EDT Office Visit [facility] [address] [place] [address] Xiomara Ndiaye MD [address] [place] [address] [facility] Start: 09-28-2024 End: 09-28-2024 Patient encounter procedure 09/28/2024 10:15 AM EST Office Visit [facility] [address] [place] [address] Jordan Miguel DO [address] [place] [address] [facility] Start: 06-27-2024 End: 06-27-2024 Patient encounter procedure 06/27/2024 10:45 AM EST Procedure Visit [facility] [address] [place] [phone] Yoselin Weir DPM [address] [place], [place] [id number] [facility] Start: 06-24-2024 End: 06-24-2024 Patient encounter procedure 06/24/2024 9:20 AM EST Office Visit [facility] [place] [address] Ramone Perkins MD [address] [facility] [place] [address] [facility] Start: 05-31-2024 End: 05-31-2024 Patient encounter procedure 05/31/2024 1:15 PM EDT Appointment [facility] [address] [place] [id number] Spondylolisthesis of lumbar region [facility] Comment on above: Spondylolisthesis of lumbar region Start: 05-31-2024 End: 05-31-2024 Patient encounter procedure [facility] Start: 05-25-2024 End: 05-25-2024 Patient encounter procedure [facility] Comment on above: Pessary maintenance; Cystocele with rectocele; Urethral caruncle; Vaginal atrophy Start: 05-24-2024 End: 05-24-2024 Professional / ancillary services management [facility] Start: 05-21-2024 Screening for osteoporosis Bone Density Scan [facility] Start: 05-19-2024 End: 05-19-2024 Patient encounter procedure 05/19/2024 1:45 PM EDT Office Visit [facility] [address] [place] [phone] Aidan Suazo, [address] [address] [place] [address] [facility] Start: 05-17-2024 End: 05-17-2024 Professional / ancillary services management 05/17/2024 10:30 AM EDT Ancillary Procedure [facility] [address] [place] [id number] [facility] Start: 05-13-2024 End: 05-13-2024 Admission to same day surgery center 05/13/2024 3:25 PM EDT - 05/13/2024 3:32 PM EDT Surgery [facility] [address] [place] [phone] Darryl Aragon MD [address] [place], [place] [id number] INJECTION BLOCK SACROILIAC JOINT RIGHT [16412 (CPT )] [facility] Comment on above: INJECTION BLOCK SACROILIAC JOINT RIGHT [ 80294 (CPT )] Start: 05-13-2024 End: 05-13-2024 Inject si joint arthrgrphy&/anes/steroid w/leeann INJECTION BLOCK SACROILIAC JOINT Disorder of sacrum 05/13/2024 3:25 PM [facility]T [facility] Start: 05-13-2024 Subsequent hospital visit by physician 05/13/2024 3:25 PM EDT Hospital Encounter [facility] [address] [place] [phone] Darryl Aragon MD [address] [facility], [place] [phone] [facility] Start: 05-10-2024 End: 05-10-2025 MR Lumbar spine WO contrast MR lumbar spine wo contrast Imaging Routine Lumbar spine pain Expected: 05/10/2024 (Approximate), Expires: 05/10/2025 [facility] Work Phone: Comment on above: Expected: 05/10/2024 (Approximate), Expi res: 05/10/2025 Start: 05-10-2024 End: 05-10-2024 Patient encounter procedure [facility] Comment on above: Arrived Start: 04-03-2024 COVID-19 Vaccine ( season) COVID-19 Vaccine () [facility] Start: 04-03-2024 Influenza vaccination [facility] Start: 01-16-2024 Echocardiography Echocardiogram [facility] Start: 01-12-2024 End: 01-12-2024 Patient encounter procedure 01/12/2024 9:40 AM EDT Office Visit [address] [place] [address] Darryl Santillan MD [address] [facility] [address] [place] [address] [facility] Start: 12-23-2023 [facility] Start: 11-30-2023 End: 11-29-2024 Urinalysis complete panel - Urine Urinalysis with Reflex Microscopic Lab Routine Dysuria Weakness Expected: 11/30/2023 (Approximate), Expires: 11/29/2024 [facility] Service Area Work Phone: Comment on above: Expected: 11/30/2023 (Approximate), Expi res: 11/29/2024 Start: 11-19-2023 Hospital admission [facility] Start: 11-18-2023 [facility] Start: 11-16-2023 End: 11-16-2023 Patient encounter procedure 11/16/2023 10:20 AM EDT Office Visit [address] [place] [address] Darryl Santillan MD [address] [facility] [address] [place] [address] [facility] Start: 06-10-2023 FUV, Provider: Darryl Santillan, Status: Pen, Time: 1:40 PM FUV, Provider: Darryl Santillan, Status: Pen, Time: 1:40 PM -[facility] 250 DO Work Phone: Start: 05-21-2023 Screening for osteoporosis Bone Density Scan [facility] Start: 04-03-2023 COVID-19 Vaccine ( season) COVID-19 Vaccine () [facility] Start: 03-09-2023 STRESS LIZZIE, Provider: SARI [facility]VI NUCLEAR 01,[id number], Status: Pen, Time: 2:30 PM STRESS LIZZIE, Provider: SARI [facility] NUCLEAR 01,[id number], Status: Pen, Time: 2:30 PM -[facility] 250 DO Work Phone: Start: 01-19-2023 Blood chemistry [facility] Start: 01-19-2023 [facility] Start: 01-18-2023 Blood chemistry [facility] Start: 01-18-2023 [facility] Start: 01-17-2023 Blood chemistry [facility] Start: 01-17-2023 [facility] Start: 01-16-2023 Blood chemistry [facility] Start: 01-16-2023 End: 01-16-2023 [facility] Start: 01-15-2023 Blood chemistry [facility] Start: 01-15-2023 [facility] Start: 01-14-2023 [facility] Start: 01-14-2023 Consultation [facility] Start: 01-14-2023 Hospital admission [facility] Start: 01-14-2023 Referral to cardiac rehabilitation program [facility] Start: 01-14-2023 End: 01-14-2023 [facility] Start: 07-01-2022 COVID-19 Vaccine (4 - Pfizer series) COVID-19 Vaccine (4 - Pfizer series) [facility] Start: 06-05-2022 Adult BMI Screening Adult BMI Screening [facility] Start: 04-03-2021 Influenza vaccination INFLUENZA (Season Ended) [facility] Start: 03-26-2014 DIABETES SCREEN DIABETES SCREEN [facility] Start: 2004 ADVANCE DIRECTIVE DISCUSSION ADVANCE DIRECTIVE DISCUSSION [facility] Start: 2004 BONE DENSITY BONE DENSITY [facility] Start: 2004 Fall Risk Screening Fall Risk Screening [facility] Start: 2004 PNEUMOVAX AGE 65 AND OVER WITH 5YR LOOKBACK (#1) PNEUMOVAX AGE 65 AND OVER WITH 5YR LOOKBACK (#1) [facility] Start: 1999 RSV patients and/or patients aged 60+ years (1 - 1-dose 60+ series) RSV patients and/or patients aged 60+ years (1 - 1-dose 60+ series) [facility] Start: 1989 SHINGRIX VACCINE (1 of 2) SHINGRIX VACCINE (1 of 2) [facility] Start: 1961 DTaP/Tdap/Td Vaccines (1 - Tdap) DTaP/Tdap/Td Vaccines (1 - Tdap) [facility] Start: 1958 DTaP,Tdap and Td Vaccines (1 - Tdap) DTaP,Tdap and Td Vaccines (1 - Tdap) [facility] Start: 1958 Urine microalbumin profile DTAP,TDAP,TD (1 - Tdap) [facility] Start: 1957 Diabetes mellitus screening Diabetes Screening [facility] Start: 1951 COVID-19 VACCINE (1) COVID-19 VACCINE (1) [facility] Start: 1951 Depression Screening Depression Screening [facility] Start: 1939 Creatinine measurement Creatinine Level [facility] Start: 1939 Lipid panel Lipid Panel [facility] Start: 1939 Medicare Annual Wellness Visit [facility] Start: 1939 Potassium measurement Potassium Level [facility] Comprehensive metabo lic 2000 panel - Serum or Plasma [facility] Inject si joint arthrgrphy&/anes/steroid w/leeann INJECTION BLOCK SACROILIAC JOINT Disorder of sacrum [facility] Patient Education [facility] Work Phone: Patient referral [facility] Work Phone: XR Radius and Ulna - right 2 Views [facility] XR Wrist - right GE 3 Views [facility] Immunizations Immunization Date Immunization Notes Care Provider Marisel agarwal 05-06-2023 influenza virus vaccine, unspecified formulation [facility] 05-06-2023 Influenza, High-dose Seasonal, Quadrivalent, Preservative Free Ana Salcedo NP Work Phone: [facility] 05-06-2023 influenza, high dose seasonal, preservative-free Danis Barreto Other [employer] Other 05-06-2022 Fluzone High-Dose Quadrivalent 0.7 ML Intramuscular Suspension Prefilled Syringe Danis Barreto Work Phone: [facility] [place] [address] DO Work Phone: 05-06-2022 influenza virus vaccine, unspecified formulation Jerson STRE[employer] [facility] 05-06-2022 Pfizer COVID-19 Vac Bivalent 30 MCG/0.3ML Intramuscular Suspension Danis She Barreto Work Phone: [facility] 11-22-2021 Comirnaty 30 MCG/0.3 ML Intramuscular Suspension Danis She Barreto Work Phone: [facility] 11-22-2021 SARS-CoV-2 mRNA (ibsejenfdkc-bcac-icbpb se) vaccine [employer]erson [employer] [facility] 05-06-2021 Pfizer-BioNTech COVID-19 Vacc 30 MCG/0.3ML Intramuscular Suspension Dansi Barreto Work Phone: [facility] 04-24-2021 Fluzone High-Dose Quadrivalent 0.7 ML Intramuscular Suspension Prefilled Syringe Danis Barreto Work Phone: [facility] [place] [address] DO Work Phone: 04-24-2021 influenza virus vaccine, unspecified formulation [employer]erson [employer] [facility] 09-23-2020 Pfizer-BioNTech COVID-19 Vacc 30 MCG/0.3ML Intramuscular Suspension Danis Barreto Work Phone: [facility] Comment on above: Result Comment: 2023: [id number] 08-24-2020 Pfizer-BioNTech COVID-19 Vacc 30 MCG/0.3ML Intramuscular Suspension Danis Barreto Work Phone: [facility] Comment on above: Result Comment: 2023: [id number] 05-04-2020 influenza virus vaccine, unspecified formulation Jerson [employer] [facility] 05-04-2020 influenza, high dose seasonal, preservative-free Danis E Ball Work Phone: [place] [address] DO Work Phone: 04-03-2020 influenza virus vaccine, unspecified formulation Jerson [employer] [facility] 04-03-2020 influenza, high dose seasonal, preservative-free Danis E Mary Lou Work Phone: [place] [address] DO Work Phone: 07-01-2019 zoster vaccine recombinant Ana Salcedo NP Work Phone: [facility] 04-29-2019 influenza virus vaccine, unspecified formulation [employer]erson [employer] [facility] 04-29-2019 influenza, high dose seasonal, preservative-free Danis E Ball Work Phone: [facility] 250 DO Work Phone: 03-28-2019 zoster vaccine recombinant Danis Nowak Ball Work Phone: [facility] 04-28-2018 influenza virus vaccine, unspecified formulation Jerson [employer] [facility] 04-28-2018 influenza, injectabl e, quadrivalent, preservative free Danis E Ball Work Phone: [place] [address] DO Work Phone: 05-04-2017 influenza virus vaccine, unspecified formulation Jerson [employer]RE[address] [facility] 05-04-2017 influenza, injectabl e, quadrivalent, preservative free Danis E Ball Work Phone: [place] [address] DO Work Phone: 05-06-2016 pneumococcal conjuga te vaccine, 13 valent Ana Salcedo NP Work Phone: [facility] 04-15-2011 zoster vaccine, live Benjami n E Ball Work Phone: [facility] 08-03-2010 pneumococcal polysaccharide vaccine, 23 valent Danis E Ball Work Phone: [facility] 08-03-2004 pneumococcal polysaccharide vaccine, 23 valent Danis E Ball Work Phone: [facility] Payers Date Payer Category Payer Self-pay [id number] 2022 Medicare [employer]OT[employer] [place] MEDICARE DEVOTED HEALTH MEDICARE ADVANTAGE [id number] 2022-Present [phone] [address] [place] [address] [id number]. [id number] 2022 Medicare O DEVOTED HEALTH M EDICARE ADVANTAGE [id number]. [id number] 2021 Medicare (Managed Care) [facility] [id number]. [id number] 2021 Unknown 2020 Unknown [id number] .16.840.1.269423.19 2010 Unknown MULTIPLAN ZZZMUT UAL OF ELROD [id number] 2010-2013 Indemnity [id number] 1.2.840.016910.1.13.159.2. 7.3.793939.315 2004 Medicare MEDICARE MEDICAR E B [id number] 2004-Present [place] Medicare [id number]. [id number] 1959 Medicare [id number] 1939 Unknown [id number] 2.16.840.1.776838.3.579.2. 593 1939 Unknown [id number] 2.16.840.1.982053.3.579.2. 593 1939 Unknown [id number] 2.16.840.1.217855.3.579.2. 593 1939 Unknown [id number] 2.16.840.1.707292.3.579.2. 356 1939 Unknown [id number] 2.16.840.1.182156.3.579.2. 356 1939 Unknown [id number] 2.16.840.1.349725.3.579.2. 356 1939 Unknown [id number] 2.16.840.1.790491.3.579.2. 356 1939 Unknown [id number] 2.16.840.1.999477.3.579.2. 356 1939 Unknown [id number] 2.16.840.1.186693.3.579.2. 356 1939 Unknown [id number] 2.16.840.1.253610.3.579.2. 356 1939 Unknown [id number] 2.16.840.1.908950.3.579.2. 1068 1939 Unknown [id number] 2.16.840.1.154003.3.579.2. 124 1939 Unknown [id number] 2.16.840.1.331869.3.579.2. 1246 1939 Unknown [id number] 2.16.840.1.946062.3.579.2. 124 1939 Unknown [id number] 2.16.840.1.742978.3.579.2. 124 1939 Unknown [id number] 2.16.840.1.439167.3.579.2. 124 1939 Unknown [id number] 2.16.840.1.762358.3.579.2. 1244 1939 Unknown [id number] 2.16.840.1.682565.3.579.2. 1244 1939 Unknown [id number] 2.16.840.1.351879.3.579.2. 1244 1939 Unknown [id number] 2.16.840.1.994412.3.579.2. 727 1939 Unknown [id number] 2.16.840.1.325881.3.579.2. 727 1939 Unknown [id number] 2.16.840.1.072213.3.579.2. 727 1939 Unknown [id number] 2.16.840.1.818877.3.579.2. 727 1939 Unknown [id number] 2.16.840.1.113900.3.579.2. 1286 1939 Unknown [id number] 2.16.840.1.040118.3.579.2. 1286 1939 Unknown [id number] 2.16.840.1.458602.3.579.2. 1286 1939 Unknown [id number] 2.16.840.1.337153.3.579.2. 1286 1939 Unknown [id number] 2.16.840.1.556696.3.579.2. 1286 1939 Unknown [id number] 2.16.840.1.523516.3.579.2. 1259 1939 Unknown [id number] 2.16.840.1.887932.3.579.2. 1259 1939 Unknown [id number] 2.16.840.1.101444.3.579.2. 1259 1939 Unknown [id number] 2.16.840.1.378536.3.579.2. 1259 1939 Unknown [id number] 2.16.840.1.693692.3.579.2. 1259 1939 Unknown [id number] 2.16.840.1.210027.3.579.2. 1259 1939 Unknown [id number] 2.16.840.1.951780.3.579.2. 125 1939 Unknown [id number] 2.16.840.1.198184.3.579.2. 1258 1939 Unknown [id number] 2.16.840.1.248945.3.579.2. 125 1939 Unknown [id number] 2.16.840.1.371855.3.579.2. 125 1939 Unknown [id number] 2.16.840.1.280711.3.579.2. 125 1939 Unknown [id number] 2.16.840.1.618393.3.579.2. 1258 1939 Unknown [id number] 2.16.840.1.172213.3.579.2. 1258 1939 Unknown [id number] 2.16.840.1.712960.3.579.2. 1258 1939 Unknown [id number] 2.16.840.1.843442.3.579.2. 1258 1939 Unknown [id number] 2.16.840.1.201244.3.579.2. 1258 1939 Unknown [id number] 2.16.840.1.651024.3.579.2. 1258 1939 Unknown [id number] 2.16.840.1.879624.3.579.2. 125 1939 Unknown [id number] 2.16.840.1.226563.3.579.2. 125 1939 Unknown [id number] 2.16.840.1.396419.3.579.2. 1258 1939 Unknown [id number] 2.16.840.1.829122.3.579.2. 125 1939 Unknown [id number] 2.16.840.1.534209.3.579.2. 1259 1939 Unknown [id number] 2.16.840.1.794912.3.579.2. 1259 Medicare [id number] Medicare Medicare [id number] Private Health Insurance [employer] [facility] PFFS M [id number] Private Health Insurance [facility] [id number] Unknown [id number] 2.16.840.1.602973.3.579.2. 531 Unknown [id number] 2.16.840.1.904368.3.579.2. 531 Unknown [id number] 2.16.840.1.072662.3.579.2. 531 Unknown [id number] 2.16.840.1.659390.3.579.2. 531 Unknown [id number] 2.16.840.1.174291.3.579.2. 531 Social History Date Type Detail Facility Start: 09-27-2010 End: 12-23-2023 Tobacco smoking status [facility] Never smoker [facility] Start: 09-27-2010 End: 05-26-2024 Alcohol intake Current drinker of alcohol (finding) [facility] Start: 1940 Sex Assigned At Not on file [facility] Start: 08-21-2020 End: 06-15-2023 Consumes alcohol occasionally Consumes alcohol occasionally [facility] Comment on above: coffee 1-2 cups; Start: 08-21-2020 End: 06-15-2023 Sex Assigned At [facility] Start: 1940 Sex Assigned At Female F [facility] Start: 06-10-2023 End: 06-15-2023 Tobacco use and exposure Smokeless tobacco non-user [facility] Work Phone: Start: 06-15-2023 Alcohol intake Lifetime non-d jeramie (finding) [facility] Work Phone: Start: 06-05-2023 End: 06-15-2023 Exposure to SARS-CoV-2 (event) Unable to assess [facility] Childcare Unknown [facility] Start: 02-17-2019 End: 11-30-2023 Alcohol Comment social [facility] Start: 10-31-2023 End: 01-12-2024 Exposure to SARS-CoV-2 (event) Not sure [facility] How often to you hav e a drink containing alcohol? Monthly or less [facility] How many standard drinks containing alcohol do you have on a typical day? 1 or 2 [facility] How often do you hav e 6 or more drinks on 1 occasion? Less than monthly [facility] Start: 05-13-2023 Alcohol Comment 1-2 drinks les s than monthly in the past year, Caffeine intake: 1-2 cups per day [facility] Start: 03-08-2015 Sex Female (finding) [facility] Medical Equipment Procedure Code Equipment Code Equipment Origin al Text Equipment Identifier Dates Ins Actb 36mm 0d E X3 Trdnt - [id number] Start: 03-25-2011 Head Fem -5mm 36 mm Hip Cocr - [id number] Start: 03-25-2011 Shell Actb 52mm T/H Pros - [id number] Start: 03-25-2011 Stem Fem Acld Tm zf 4.5 Hip - [id number] Start: 03-25-2011 CL STENT GRZEGORZ FRONTIER 2.25 X 22 FDA Start: 01-14-2023 Femoral artery closure plug/patch, synthetic polymer [id number] [id number] FDA Start: 01-14-2023 CL STENT GRZEGORZ FRONTIER 2.25 X 22 FDA Start: 01-14-2023 Head Fem 36mm +3 .5mm Vrsy Cocr Hip Rpl 094978 - [id number] - [id number], [id number] FDA Start: 06-05-2021 Screw Bn 30mm 6. [address] St Actb Rory Trlg Strl Rpl [id number] + [id number] + [id number] - [id number] - [id number] +[id number], [id number] FDA Start: 06-05-2021 CL STENT GRZEGORZ FRONTIER 2.25 X 22 FDA Start: 01-14-2023 CL STENT GRZEGORZ FRONTIER 2.25 X 22 FDA Start: 01-14-2023 CL STENT GRZEGORZ FRONTIER 2.5 X 15 FDA Start: 11-18-2023 Femoral artery closure plug/patch, synthetic polymer [id number] FDA Start: 11-18-2023 CL STENT GRZEGORZ FRONTIER 2.25 X 22 FDA Start: 01-14-2023 CL STENT GRZEGORZ FRONTIER 2.5 X 15 FDA Start: 11-18-2023 CL STENT GRZEGORZ FRONTIER 2.25 X 22 FDA Start: 01-14-2023 CL STENT GRZEGORZ FRONTIER 2.5 X 15 FDA Start: 11-18-2023 CL STENT GRZEGORZ FRONTIER 2.25 X 22 FDA Start: 01-14-2023 CL STENT GRZEGORZ FRONTIER 2.5 X 15 FDA Start: 11-18-2023 CL STENT GRZEGORZ FRONTIER 2.25 X 22 FDA Start: 01-14-2023 CL STENT GRZEGORZ FRONTIER 2.5 X 15 FDA Start: 11-18-2023 CL STENT GRZEGORZ FRONTIER 2.25 X 22 FDA Start: 01-14-2023 CL STENT GRZEGORZ FRONTIER 2.5 X 15 FDA Start: 11-18-2023 CL STENT GRZEGORZ FRONTIER 2.25 X 22 FDA Start: 01-14-2023 CL STENT GRZEGORZ FRONTIER 2.5 X 15 FDA Start: 11-18-2023 CL STENT GRZEGORZ FRONTIER 2.25 X 22 FDA Start: 01-14-2023 CL STENT GRZEGORZ FRONTIER 2.5 X 15 FDA Start: 11-18-2023 CL STENT GRZEGORZ FRONTIER 2.25 X 22 FDA Start: 01-14-2023 CL STENT GRZEGORZ FRONTIER 2.5 X 15 FDA Start: 11-18-2023 Shell Actb 56mm Hip 4 Hl Clr Cd [place] G7 F Hmsphr - [id number] - [id number] Start: 06-05-2021 Liner Actb 36mm F Ntrl Arcomxl G7 Hip - [id number] - [id number], [id number] FDA Start: 06-05-2021 Stem Fem 5 Std Avenir Cmplt Hip Colr Strl Lf - [id number] - [id number] +[id number], [id number] FDA Start: 06-05-2021 Screw Bn 30mm 6. [address] Actb Rory Trlg Strl Rpl [id number] + [id number] + [id number] - [id number] - [id number] +[id number]/$$ [id number], [id number] FDA Start: 06-05-2021 Screw Bn 30mm 6. [address] Actb Rory Trlg Strl Rpl [id number] + [id number] + [id number] - [id number] - [id number] +[id number]/$$ [id number], [id number] FDA Start: 06-05-2021 CL STENT GRZEGORZ FRONTIER 2.25 X 22 FDA Start: 01-14-2023 CL STENT GRZEGORZ FRONTIER 2.5 X 15 FDA Start: 11-18-2023 Goals Date Patient Goal Desired Activity /State Personal health goal Comment on above: Formatting of this n ote might be different from the original. Evaluation of progress towards goal: Home with [facility]. Functional Status Date Assessment Result Facility 03-01-2024 Functional Status N/A [facility] 02-08-2024 Functional Status N/A [facility] 11-19-2023 Functional status Patient at Baseline [facility] Work Phone: 01-16-2023 Functional status Patient at Baseline [facility] Work Phone: 01-14-2023 Functional status Patient at Baseline [facility] Work Phone: Mental Status Date Assessment Result Facility 11-19-2023 Cognitive function Cognitive Sta tus Patient at Baseline [facility] Work Phone: 01-16-2023 Cognitive function Cognitive Sta tus Patient at Baseline [facility] Work Phone: 01-14-2023 Cognitive function Cognitive Sta tus Patient at Baseline [facility] Work Phone: Clinical Notes 11-02-1999 to 05-26-2024 Ramone Perkins MD - 05/26/2024 8:20 AM EDTPatient InstructionsJordan Miguel DO - 05/25/2024 10:15 AM EDTTelephone Encounter - Ana Salcedo NP - 05/17/2024 8:42 AM EDTPatient Instructions Note Date & Type Note Facility 05-26-2024 History of Present illness Narrative [facility] [address] [facility] [address] CHART NOTE ? 05/26/2024 Patient: Atiya Jha 1940 [id number] Physician: Ramone Perkins MD Last encounter with Group Visit date not found REFERRING PHYSICIAN Danis Barreto DO PCP DANIS BARRETO DO CHIEF COMPLAINT: Lumbar spine SUBJECTIVE: Atiya Jha is a 84 y.o. female who has been referred for consultation regarding her lower back symptoms. The pain started gradually 5 years ago without any apparent cause, and is chronic in nature, but has been getting worse. The pain in her lower back spine has been an 8 on a scale of 1-10 on an average. The pain radiates all the way down to the ankle and foot. Her symptoms are worse at nighttime and present through out the day. She is able to walk less than a block with significant discomfort. The pain is relieved with sitting. It gets worse with laying down, standing, and walking. She denies any recent onset problems with bowel or bladder dysfunction. Patient has tried taking over the counter medications . She has had pain management. PAST MEDICAL HISTORY, MEDICATIONS, ALLERGIES, SOCIAL HISTORY AND FAMILY HISTORY, REVIEW OF SYSTEMS : Reviewed. She reports that she has never smoked. She has never used smokeless tobacco.. Her body mass index is 25.23 kg/m . OBJECTIVE: The patient is alert, awake and oriented X3. Patient is cooperative. Mood and affect is normal. HEENT examination is unremarkable. Patient is normocephalic. Patient is using a cane for ambulation. Brisk capillary refill noted in lower extremities. Lumbar Spine examination reveals tenderness over the lumbar spine. There is moderate paraspinal spasm and guarding noted. Range of movement is within normal limits. Motor strength testing reveals good strength on testing today. Sensory examination intact to light touch distally. Straight leg raise is positive. Bilateral hips reveal range of motion within normal limits. Sacroiliac joints tender to palpation. IMAGING: I reviewed the x-ray report from imaging of the lumbar spine obtained October 07, 2023 x-rays AP and lateral and lateral flexion-extension views of the lumbar spine demonstrate scoliosis apex to the right at L2. There is a grade 2 slip of L4 on L5 of approximately 8.3 mm without instability when comparing flexion and extension images. There are no fractures. There is sclerosis and narrowing of the facet joints and disc space narrowing throughout. I reviewed the report from the MRI of the lumbar spine obtained 05/17/2024 Impression: 1. Grade 1 anterior listhesis with osseous hypertrophy and large broad-based disc bulge asymmetric on the right L4-5. These findings have progressed. 2. Osseous hypertrophy with broad-based disc bulge asymmetric on the right L3-4. These findings have progressed. 3. Osseous hypertrophy with broad-based disc bulge asymmetric on the left L1-2 and L2-3. These findings have progressed somewhat. 4. Osseous hypertrophy with broad-based disc bulge asymmetric on the right L5-S1. This appearance is similar to the prior study. ASSESSMENT: Lumbar spondylolisthesis with stenosis L4-5. PLAN: Patient was seen and evaluated in the office today. We discussed her exam and imaging findings as well as further treatment options including formal physical therapy as she has not completed formal physical therapy for her back. She was provided a PT script in the office today. We will see her back in 4-6 weeks to evaluate her progress at that time. I, Ramone Perkins MD, personally performed the face to face evaluation on this patient. I discussed with the patient and confirmed the accuracy and completeness of the aforementioned history, and I personally performed the clinical examination of the patient. I performed the critical and smart portions of the service. I agree with above-mentioned history and physical examination findings. I have established and discussed the course of treatment with the patient and SHAY Rojas. My medical decision making and treatment plan are as follows: This is an 84-year-old lady who presents to me for evaluation lumbar spine along with the daughter. She has had 5 year history of low back pain as well as right leg pain. She had a right total hip arthroplasty done by Dr. Suazo about 3 years ago. She was recently evaluated by him and told that her right hip is satisfactory. It was deemed to be her lumbar spine. Therefore she has been referred to us for further treatment. She is currently using a cane for ambulation. She is not able to walk long distances. Denies any bowel or bladder dysfunction. Sitting improves her pain. Pain usually radiates from back down to the right foot and ankle. She is on blood thinners.Lumbar Spine examination reveals mild to moderate tenderness. There is increased pain with extension and less pain with flexion. Negative straight leg raise. Calves are soft and nontender. Overlying skin is intact. There is no gross motor sensory deficit in bilateral lower extremities from L2 down to S1. She appears to have good range of movement of the right hip with minimal pain. She has a significantly antalgic gait. Lumbar radiographs and MRI were reviewed which show L4-5 severe stenosis and spondylolisthesis. Atiya is significantly symptomatic and is requesting surgical consideration. After going over her current symptoms as well as clinical findings and a review of available studies, we would recommend surgery in the form of L4-5 laminectomy and fusion when she is ready. Risks, benefits and alternatives of surgery were discussed the patient. Perioperative course was also described in detail. Complications of posterior spinal fusion surgery were also discussed with Atiya including infection, bleeding, paralysis, nerve damage, spinal fluid leak, visceral injury, need for additional surgery, anesthetic and medical complications. Other complications were also discussed including hardware problems, nonunion and adjacent segment disease requiring additional surgeries for that down the road. We told her that there is a 2-3 % yearly cumulative risk of requiring additional surgeries as result of adjacent segment disease. Atiya has no questions at this time. She has not done any formal physical therapy yet. She is pretty symptomatic and I am not sure what physical therapy we will do for her. At least we should try that. She is willing to do that. In the meantime she will start getting clearances from my family physician as well as forensic document examiner for possible surgery. She is 84 years old and she needs to be cleared before we schedule her for surgery. If Atiya has any further concerns or questions, we encouraged her to give us a call. This note was created with the assistance of a speech recognition program with the goal of generating a timely record of the patient encounter. Inadvertent computerized pickle solution maker errors related to syntax, spelling, homophones, and/or inaudibility may be present. documented in this encounter [id number] 05-26-2024 Instructions Ramone Perkins MD - 05/26/2024 8:20 AM EDT Images from the original note were not included. Patient Education Patient Education Spinal Fusion Why is this procedure done? A spinal fusion permanently joins two or more bones in the spine together. Then, there is no movement between the bones anymore. A spinal fusion treats long-term pain and disability caused by: Narrowing of the canal where the spinal cord runs through or narrowing of the openings where the spinal nerves exit the spine. These are both kinds of spinal stenosis. Spinal injury or broken bone A spinal bone or vertebra that is out of line with the others. This is spondylolisthesis. An abnormal curve in the spine. This is scoliosis or kyphosis. Weak or unstable spine, most often due to infection or tumor Wear and tear on the discs in between the spinal bones. This is called degenerative disc disease or DDD. Herniated disc - The disc that cushions the spine moves out of place and pushes on spinal nerves or spinal cord causing pain and loss of movement. People who have a spinal fusion have often tried many other treatments like physical therapy or drugs. These have not worked to get rid of the pain and disability. What will the results be? After surgery, you should have less pain or other signs. You should be able to move more easily too. What happens before the procedure? Your doctor will take your history. Tell the doctor if you have any drug allergy. Talk to the doctor about: All the drugs you are taking. Be sure to include all prescription, lebm-vmw-wfuysxs, vitamins, and herbal supplements. Bring a list of drugs you take with you. Any bleeding problems. Be sure to tell your doctor if you are taking any drugs that may cause bleeding. Some of these are warfarin, rivaroxaban, apixaban, ticagrelor, clopidogrel, ketorolac, ibuprofen, naproxen, or aspirin. Certain vitamins and herbs, such as garlic and fish oil, may also add to the risk for bleeding. You may need to stop these drugs as well. Talk to your doctor about them. When you need to stop eating or drinking before your procedure. Your doctor will do an exam and may order: X-ray MRI scan What happens during the procedure? Once you are in the operating room, the staff will put an IV in your arm to give you fluids and drugs. You will be given a drug to make you sleepy. It will also help you stay pain free during the surgery. When you are asleep, the doctors put a tube in your mouth to help you breathe. You will have a tube in your bladder to drain urine. Your doctor may use a special cifuentes to keep your head in place during the surgery. You may have some hernandez near your cheondoism area from this cifuentes after the surgery. Your doctor will make a cut on your back or neck based on the area for surgery. Different methods can be used to fuse the spine. Your doctor will decide which is best based on your history. The doctor may use: Bone or bone substitute. The bone may be taken from your hip. Other times, it is from a specially prepared bone from a donor. Screws and plates. This is known as an instrumented fusion. A drain tube may be placed in your back close to the cut site. This will get rid of any extra fluid or blood from around the cut site. The drain tube is hooked to a bulb. The bulb is emptied every day until the doctor removes it. Your doctor will close your cut and cover it with clean bandages. The whole procedure will take from 4 to 6 hours. What happens after the procedure? You will go to the Recovery Room after surgery. The staff will take out your breathing tube when you are awake and strong enough to breathe. You may have a sore throat afterwards. You will have a special neck brace that will need to be worn almost all the time. Your doctor may let you take the neck brace off for showers. Ask your doctor how long you will need to wear this brace. You may also have a back brace or cast. Your nurses and caregivers will roll you in bed from side to side every couple of hours after your surgery to prevent problems after your surgery, such as blood clots and pressure sores. Your doctor may have you wear special stockings to prevent formation of blood clots. You will be given these stockings in the hospital. Very soon after surgery, the staff may get you out of bed to a chair or to go to the bathroom. The staff will help you begin to walk around. Doing coughing and deep breathing exercises will help keep your lungs clear. Your doctor will give you drugs to help with pain. Take the pain pills or shots to help you to move better. Your physical therapy will start the same day or the day after surgery. You will stay at the hospital 1 to 3 days. What drugs may be needed? The doctor may order drugs to: Help with pain Prevent infection Prevent blood clots Help with other problems you may have like trouble sleeping or hard stools What problems could happen? Pain Bleeding Infection Trouble breathing Incomplete fusion of the bones Blood clots Spinal cord or nerve damage Problem where not enough bone forms Neck or back stiffness Graft does not take Hardware failure Need for more surgery in the future because of problems with the graft or the bones not fusing Problems with bowel or bladder function Where can I learn more? [place] [employer] https://orthoinfo.aaos.org/en/radha tment/spinal-fusion [facility] http://kidshealth.org/en/parents/s eduardo-fusion.html Last Reviewed Date 2020-06-04 Consumer Information Use and Disclaimer This generalized information is a limited summary of diagnosis, treatment, and/or medication information. It is not meant to be comprehensive and should be used as a tool to help the user understand and/or assess potential diagnostic and treatment options. It does NOT include all information about conditions, treatments, medications, side effects, or risks that may apply to a specific patient. It is not intended to be medical advice or a substitute for the medical advice, diagnosis, or treatment of a health care provider based on the health care provider's examination and assessment of a patient s specific and unique circumstances. Patients must speak with a health care provider for complete information about their health, medical questions, and treatment options, including any risks or benefits regarding use of medications. This information does not endorse any treatments or medications as safe, effective, or approved for treating a specific patient. [employer] and its affiliates disclaim any warranty or liability relating to this information or the use thereof. The use of this information is governed by the Terms of Use, available at https://www.Transporeon.Scaleform/en/k now/zcfneadd-qlpeisiqfinag-gedad Copyright Copyright 2022 [employer] and its affiliates and/or licensors. All rights reserved. Patient Education Patient Education Spondylolisthesis About this topic The spine is made up of bones called vertebrae. These bones are lined up on top of each other. Spondylolisthesis happens when one of the spinal bones slips forward onto a spinal bone below it. It most often happens in the lower back area. This problem can cause the curves of the spine to curve more than normal. The lower back curve, or lordosis, arches inward more. Later, the upper spine curve, or kyphosis, arches outward more. This causes a hunched back. Some people have low back pain with this problem and some have no signs at all. Most of the time, this problem can be treated without surgery. For those who have surgery, most people have good results. What are the causes? This problem can happen in both children and adults. In children, it is often caused by a defect or an injury to the spine. In adults, it is often caused by a disease like arthritis or weak bones. Spondylolisthesis may also be caused by a tiny crack in one of the bones in the spine. What can make this more likely to happen? This problem is more common in children and teenagers but may be seen in adults as well. Playing sports like gymnastics, weight-lifting, and football may make this problem more likely to happen. It may also happen with growth spurts. What are the main signs? Low back pain and stiffness Pain in the buttocks and down the legs Weakness in the legs Tenderness at the spine Some people have no signs of this problem. How does the doctor diagnose this health problem? The doctor will do an exam and feel around your back. Your doctor may have you move and push and pull on your legs to test your motion and strength. Your doctor may have you raise one leg straight up to check if the muscles in the back of your thigh are tight. Your doctor may check the feeling and reflexes in your legs to check for nerve problems. The doctor may order: X-ray CT or MRI scan How does the doctor treat this health problem? Rest Back brace Exercises for strengthening and stretching Physical therapy (PT) for treatments to lessen pain and for instruction in exercises to help the problem Weight loss program if you are overweight Surgery may be needed if pain does not get better or if other problems happen What drugs may be needed? The doctor may order drugs to: Help with pain and swelling The doctor may give you a shot to help with pain and swelling. Talk with your doctor about the risks of this shot. What problems could happen? Chronic back pain Nerve damage Need for surgery What can be done to prevent this health problem? Stay active and work out to keep your muscles strong and flexible. Keep your back and belly muscles strong and your hamstring muscles flexible. Warm up slowly and stretch before you exercise. Use good training techniques and form for sports. Have an expert look at your technique. Wear the right equipment when playing sports. Use good ways to train, such as slowly adding to how many exercises you do. Take breaks often when doing things that use repeat movements. Do not exercise or play sports when you are tired or in pain. Use extra care in sports with a lot of back bending such as gymnastics, dancing, football, and wrestling. Eat a healthy diet to keep your muscles and bones healthy. Eat a diet rich in calcium and vitamin D to keep your bones strong. Keep a healthy weight so there is not extra stress on your joints. Helpful tips If you have back pain, do not ignore it. Go to the doctor. The earlier this problem is treated, the better the results. Try swimming and biking to stay in shape. These activities put less stress on your back. Where can I learn more? [employer] https://kidshealth.org/en/parents/ spondylolisthesis.html?ref=search [facility] https://www.nhs.uk/conditions/spon dylolisthesis/ Last Reviewed Date 2019-10-17 Consumer Information Use and Disclaimer This generalized information is a limited summary of diagnosis, treatment, and/or medication information. It is not meant to be comprehensive and should be used as a tool to help the user understand and/or assess potential diagnostic and treatment options. It does NOT include all information about conditions, treatments, medications, side effects, or risks that may apply to a specific patient. It is not intended to be medical advice or a substitute for the medical advice, diagnosis, or treatment of a health care provider based on the health care provider's examination and assessment of a patient s specific and unique circumstances. Patients must speak with a health care provider for complete information about their health, medical questions, and treatment options, including any risks or benefits regarding use of medications. This information does not endorse any treatments or medications as safe, effective, or approved for treating a specific patient. [employer] and its affiliates disclaim any warranty or liability relating to this information or the use thereof. The use of this information is governed by the Terms of Use, available at https://www.Transporeon.com/en/k now/oocmpwjs-inctxgthtnszo-lcrua Copyright Copyright 2022 [employer] and its affiliates and/or licensors. All rights reserved. Patient Education Patient Education Back Exercises About this topic The muscles in the back are some of the most important ones in the body. They support the backbone to help keep an upright posture. They help us do most all of our daily motions. General Before starting with a program, ask your doctor if you are healthy enough to do these exercises. Your doctor may have you work with a employment trainer, chiropractor or physical therapist to make a safe exercise program to meet your needs. Stretching Exercises Stretching exercises keep your muscles flexible. They also stop them from getting tight. Start by doing each of these stretches 2 to 3 times. In order for your body to make changes, you will need to hold these stretches for 20 to 30 seconds. Try to do the stretches 2 to 3 times each day. Do all exercises slowly. Do not bounce when doing stretches. Single knee to chest stretches ? Lie on your back, bend your knees and have your feet flat on the floor. Pull one knee towards your chest until you feel a stretch in your lower back and buttock area. Repeat with the other knee. If you have knee problems, pull your knee up by grabbing the back of your thigh instead of the front of your knee. You can also do this exercise by grabbing both knees at the same time. Lower trunk rotations ? While lying on your back, bend your knees and have your feet flat on the floor. Keep your legs together and then drop them to one side. Be sure to keep both of your shoulders touching the floor until you feel a stretch in the muscles at the side of the back. Repeat on the other side. Lower back stretches seated ? Sit in a chair with your feet spread about shoulder width apart. Then, lean forward until you feel a stretch in your lower back. Strengthening Exercises Strengthening exercises keep your muscles firm and strong. Start by repeating each exercise 2 to 3 times. Work up to doing each exercise 10 times. Hold each exercise for 3 to 5 seconds. Try to do the exercises 2 to 3 times each day. Do all exercises slowly. Shoulder blade squeezes ? Pinch your shoulder blades together on your upper back and hold 3 to 5 seconds. Be sure you are sitting with good posture and make sure your shoulders do not raise up when you do this exercise. Relax. Pelvic tilts ? Lie on your back with your knees bent and feet flat on the floor. Tighten your stomach muscles and press your lower back down to the floor. Relax. Hip lifts ? Lie on your back with your knees bent and feet flat on the floor. Tighten your stomach muscles and lift your buttocks off the floor. Relax. What will the results be? Keeping your back muscles flexible and strong can help stop muscle injuries. This often happen when muscles are tight or weak. Helpful tips Stay active and work out to keep your muscles strong and flexible. Keep a healthy weight to avoid putting too much stress on your spine. Eat a healthy diet to keep your muscles healthy. Be sure you do not hold your breath when exercising. This can raise your blood pressure. If you tend to hold your breath, try counting out loud when exercising. If any exercise bothers you, stop right away. Always warm up before stretching. Heated muscles stretch much easier than cool muscles. Stretching cool muscles can lead to injury. Try walking or cycling at an easy pace for a few minutes to warm up your muscles. Do this again after exercising. Never bounce when doing stretches. Doing exercises before a meal may be a good way to get into a routine. Exercise may be slightly uncomfortable, but you should not have sharp pains. If you do get sharp pains, stop what you are doing. If the sharp pains continue, call your doctor. Where can I learn more? [place] [employer] https://orthoinfo.org/en/recovery/ rfjue-wrbtscwluldi-nkdxarm/spine-c hgugkuvktfn-acfsveq-jfg Last Reviewed Date 2020-10-18 Consumer Information Use and Disclaimer This generalized information is a limited summary of diagnosis, treatment, and/or medication information. It is not meant to be comprehensive and should be used as a tool to help the user understand and/or assess potential diagnostic and treatment options. It does NOT include all information about conditions, treatments, medications, side effects, or risks that may apply to a specific patient. It is not intended to be medical advice or a substitute for the medical advice, diagnosis, or treatment of a health care provider based on the health care provider's examination and assessment of a patient s specific and unique circumstances. Patients must speak with a health care provider for complete information about their health, medical questions, and treatment options, including any risks or benefits regarding use of medications. This information does not endorse any treatments or medications as safe, effective, or approved for treating a specific patient. [employer] and its affiliates disclaim any warranty or liability relating to this information or the use thereof. The use of this information is governed by the Terms of Use, available at https://www.wolR&M Engineeringuwer.com/en/k now/uyyyspcm-miiyqwqhppwfk-qnsfk Copyright Copyright 2022 [employer] and its affiliates and/or licensors. All rights reserved. Dear Atiya Jha, We have included some pertinent information regarding your medical condition and spinal fusion surgery. Lumbar Spondylolisthesis / Stenosis Spondylolisthesis- A spinal disorder where one vertebra slips forward on the vertebra below it. Stenosis- Narrowing of the spinal canal around the nerves. Symptoms Low back pain Radicular lower extremity pain (radiating pain down one or both legs) Numbness and tingling in legs and/or feet Weakness in feet or legs Hunched over while walking, leaning on a grocery cart, needing to sit down or hold on to something after walking for a little while (claudication) Non-Surgical Treatments- Physical Therapy Chiropractic treatment Anti-inflammatory medications Pain management Surgical Treatment- This operation consists of two parts. . Laminectomy- Removing bone from the back of the spinal canal to open up the canal and the foramina (openings where the nerves pass through. This procedure relieves the pressure on the nerves and treat spinal stenosis. Posterior lumbar fusion- The process of fusing (joining) of two vertebrae together into one by using your own bone from the laminectomy (usually not from your pelvis or hip- we will tell you so, if we need to harvest bone from your pelvis) as well as synthetic bone. Titanium rods and screws (pins) will be used to stabilize the bones while you are healing. If necessary, we will put a small spacer (cage) between the two vertebrae to aid in fusion and improve the alignment. Reason for surgery- To help relieve pain, numbness and tingling in the legs and back and improve walking. Surgery- Usually an hour is necessary for preparation once you are in in the operating room before surgery can begin. This includes time required for administering general anesthesia and getting you ready for surgery including proper positioning with surgical cleaning and draping. Actual surgical procedure takes 1-2 hours normally, but can take longer if multiple levels are affected. We will discuss this with you and keep your family informed of the progress in OR if it is a long surgical procedure. Post-operative period - After completion of surgery, you are taken to the recovery room. Once recovered from the anesthetic, you will be taken to your hospital room and that's where you will see your family again. We will have a drainage tube in your back, which is removed the day after surgery. You will be given pain medication and intravenous antibiotics. We will usually begin a normal diet in the evening. You will get up to walk the day of or the day after surgery. We will have physical therapy see you the day after your surgery to help with getting out of bed and walking and taking care of activities of daily living (ADLs). They will also have you go up and down the stairs, so you are comfortable doing so at home. We will give you a walker for stability and balance, if necessary. Many patients use it just for a few days, at most. Some elderly patients may need to use the walker for 2-3 weeks, or longer depending on their activity level before surgery. A brace is given to you to wear when you are up and about. There is no need to wear the brace, while you lying in bed or sitting with your back fully supported. You may however use the brace in bed, if you find it comfortable to do so. Brace is to be worn for 3-4 weeks. You will then be asked to wean off of the brace over another 2-4 weeks. Most of the time you will be able to go home the day after surgery. Some patients are kept in the hospital for a second night. Risks of surgery- Usually the risks of surgery are small and represent 1-2% risk of complications including bleeding, infection, injury to the nerves, spinal fluid leak, need for further surgery, anesthetic complications. Major complications such as and paralysis are quite rare. Restrictions after surgery- No lifting greater than 10 lbs for 2-3 weeks, 20 lbs for 4-6 weeks, 20-30 lbs for 6-12 weeks. Limit bending and twisting for 6-8 weeks. No driving for at 3-4 weeks. No house work for 3-4 weeks NO NSAIDS (such as Motrin, Aleve or Advil) for 10 weeks. No heat at the incision site for 10 weeks. Recovery time- 6-8 weeks are required for partial recovery (pain improvement) and 4-6 months for full recovery. All restrictions are usually lifted by 3 months and you are allowed to perform your activities as tolerated. Back to work- 4-6 weeks for light duty jobs, 8-10 weeks for heavy duty jobs. Physical Therapy- PT or a home exercise program is given after 10 weeks. It is important to continue home exercises throughout life for good outcomes. Surgical Outcomes- As a general rule, you can expect an 80 Percent chance of 80 percent improvement and being able to do 80 percent of the activities you would like to do. There is a 10- 15 percent risk of needing additional surgery over a ten year time frame due to new areas of spine being affected. Below is a radiographic study of an actual patient before and after surgery. This is an example for educational purposes only. Malalignment of L5 and S1 Vertebrae Postoperative X-rays documented in this encounter [facility] [employer] 05-25-2024 History of Present illness Narrative Images from the original note were not included. Subjective Atiya Jha is a 84 y.o. female Chief Complaint Patient presents with Gynecologic Exam Pessary follow up. No complaints. Patient states that between pessary and medication she's happy and it has been working great. History of Present Illness Current Outpatient Medications: alendronate (Fosamax) 70 MG tablet, Take 1 tablet (70 mg) by mouth every 7 (seven) days Take in the morning with a full glass of water, on an empty stomach, and do not take anything else by mouth or lie down for the next 30 min., Disp: 4 tablet, Rfl: 11 aspirin 81 MG EC tablet, Take 81 mg by mouth in the morning., Disp: , Rfl: atorvastatin (Lipitor) 80 MG tablet, Take 80 mg by mouth in the morning., Disp: , Rfl: Calcium Carbonate-Vitamin D (Oyster Shell Calcium/D) 500-5 MG-MCG tablet, Take 1 tablet by mouth in the morning., Disp: , Rfl: carvedilol (Coreg) 6.25 MG tablet, Take by mouth 2 (two) times a day with meals., Disp: , Rfl: cholecalciferol (Vitamin D-3) 25 MCG (1000 UT) capsule, Take 1,000 Units by mouth in the morning., Disp: , Rfl: docusate sodium (Colace) 50 MG capsule, Take 50 mg by mouth in the morning and 50 mg before bedtime., Disp: , Rfl: estradiol (Estrace) 0.1 MG/GM vaginal cream, 1 gram at bedtime for 2 weeks then twice weekly, Disp: 42 g, Rfl: 3 hydroCHLOROthiazide (HYDRODiuril) 25 MG tablet, Take 25 mg by mouth every other day, Disp: , Rfl: hydrOXYzine HCl (Atarax) 25 MG tablet, Take 25 mg by mouth at bedtime, Disp: , Rfl: LORazepam (Ativan) 0.5 MG tablet, Take 1 tablet (0.5 mg) by mouth See administration instructions for 1 dose 1 by mouth 1 hour prior to MRI, Disp: 1 tablet, Rfl: 0 mirabegron ER (Myrbetriq) 25 MG 24 hr tablet, Take 1 tablet (25 mg) by mouth at bedtime Do not crush, chew, or split., Disp: 90 tablet, Rfl: 3 nitroglycerin (Nitrodur) 0.1 MG/HR patch, Place 1 patch on the skin Daily, Disp: , Rfl: nitroglycerin (Nitrostat) 0.4 MG SL tablet, Place 0.4 mg under the tongue every 5 (five) minutes if needed for chest pain., Disp: , Rfl: nystatin (Mycostatin) ointment, Apply thin film BID prn irritation, Disp: 30 g, Rfl: 1 Omeprazole Magnesium (PRILOSEC PO), Take by mouth, Disp: , Rfl: telmisartan (MIcarDIS) 20 MG tablet, Take 20 mg by mouth Daily, Disp: , Rfl: telmisartan-hydroCHLOROthiazide (MIcarDIS HCT) 40-12.5 MG tablet, Take 1 tablet by mouth in the morning., Disp: , Rfl: ticagrelor (Brilinta) 90 MG tablet, Take 90 mg by mouth in the morning and 90 mg before bedtime., Disp: , Rfl: Past Medical History: Diagnosis Date Acid reflux Anxiety ASHD (arteriosclerotic heart disease) (CMS/HCC) Atrophic vaginitis Bunion of great toe CAD (coronary artery disease) (CMS/HCC) Carpal tunnel syndrome Cervical disc disorder with radiculopathy of mid-cervical region Cervical pain Cervicalgia Chest wall pain Cystitis, unspecified with hematuria Female stress incontinence Foot pain GERD (gastroesophageal reflux disease) Globus sensation Heart attack (CMS/HCC) 01/2023 Hypercholesteremia (CMS/HCC) Hypertension (CMS/HCC) Hypotension due to drugs Inflamed seborrheic keratosis Lichenification and lichen simplex chronicus Lumbago with sciatica, right side Lumbar pain Menopause Mixed hyperlipidemia (CMS/HCC) Osteoarthrosis involving multiple sites Osteopenia Osteoporosis (CMS/HCC) Other bursitis of hip, right hip Other cystitis with hematuria Plantar fasciitis Postmenopausal state Presence of left artificial hip joint Primary osteoarthritis of right hip Pure hypercholesterolemia (CMS/HCC) Radicular pain Recurrent cystitis Rhus dermatitis Shingles Skin tag Solitary pulmonary nodule Status post total hip replacement, right Unspecified osteoarthritis, unspecified site Urgency of urination Urinary tract infection Vertigo Vitamin D deficiency Past Surgical History: Procedure Laterality Date AMB EPIDURAL STEROID INJECTION 12/2017 L4-L5 BELT ABDOMINOPLASTY 2002 CARDIAC CATHETERIZATION 2003 COLONOSCOPY 2009 nl /Grillis COLONOSCOPY 02/2020 few diverticula /Grillis CORONARY ANGIOPLASTY WITH STENT PLACEMENT CORONARY ANGIOPLASTY WITH STENT PLACEMENT 11/2023 HIP ARTHROPLASTY Left HIP ARTHROPLASTY Right IR STENT PLACEMENT 1999 Stent Placement- Circ LUMBAR EPIDURAL INJECTION 07/2019 Pain Management MOHS SURGERY 1998 OTHER SURGICAL HISTORY TSAR- Edwards OTHER SURGICAL HISTORY 11/2017 Right SI joint injectiin/Felter OTHER SURGICAL HISTORY 06/2018 Aortigram no hemodynamically significant stenosis OTHER SURGICAL HISTORY 07/2019 Bilateral ischeal bursa injection OTHER SURGICAL HISTORY 01/02/2020 Bursitis Injection OTHER SURGICAL HISTORY 05/2020 bilateral ischeal bursa injection/Aragon OTHER SURGICAL HISTORY 07/2020 right intrarticular hip injection/Aragon OTHER SURGICAL HISTORY 11/2020 right intrarticular hip injection [place] BREAST REDUCTION 1999 TRIGGER FINGER RELEASE 03/02/2019 RT IF, MF, RF trigger release Dr Suazo TRIGGER FINGER RELEASE Left 06/10/2023 MF, Dr Suazo Family History Problem Relation Name Age of Onset Heart disease Mother Stroke Mother Hypertension Mother Heart disease Father Heart disease Sister Kidney disease Brother OB History Para Term AB Living 2 0 0 0 0 2 SAB IAB Ectopic Multiple Live Births 0 0 0 0 2 # Outcome Date GA Lbr Nader/2nd Weight Sex Type Anes PTL Lv 2 1 Obstetric Comments Pap 05/07/22- Neg Mammogram 05/21/22- Neg Dexa 05/21/22- osteoporosis Colonoscopy 2019 (illi) Review of Systems All negative unless documented in treatment Objective Visit Vitals BP 132/76 (BP Location: Right arm) Wt 145 lb LMP (LMP Unknown) BMI 24.13 kg/m OB Status Postmenopausal Smoking Status Never BSA 1.74 m No Known Allergies Physical Exam Constitutional: Appearance: Normal appearance. Genitourinary: Bladder and rectum normal. Right Labia: No rash, tenderness, lesions, skin changes or Bartholin's cyst. Left Labia: No tenderness, lesions, skin changes, Bartholin's cyst or rash. Vaginal granulation tissue (Mild posterior vaginal erythema consistent with granulation) present. No vaginal discharge, erythema, tenderness, bleeding or ulceration. Anterior, posterior and apical vaginal prolapse present. Moderate vaginal atrophy present. Vaginal exam comments: Grade 4 cystocele, grade 2 rectocele, grade 1 uterine prolapse. Right Adnexa: not tender and no mass present. Left Adnexa: not tender and no mass present. No cervical motion tenderness, lesion or polyp. No parametrium nodularity or thickening present. Uterus is prolapsed (Grade 1). Uterus is not fixed or tender. Uterus is anteverted. Urethral meatus caruncle present. HENT: Head: Normocephalic and atraumatic. Musculoskeletal: Right lower leg: No edema. Left lower leg: No edema. Neurological: Mental Status: She is alert and oriented to person, place, and time. Skin: General: Skin is warm and dry. Findings: No rash. Procedures ICD-10-CM 1. Pessary maintenance Z46.89 2. Cystocele with rectocele N81.10 N81.6 3. Urethral caruncle N36.2 4. Vaginal atrophy N95.2 Patient presents for pessary maintenance. Currently have size 4 ring with support. Symptoms of pressure and bulging have improved, she states she does not notice it anymore. She is very happy with pessary and would like to continue. Small areas of granulation tissue treated with silver nitrate. Uses Estradiol vaginal cream when she remembers, encouraged to try and use twice weekly. She will plan to return in 4 months. Entered by Nelsy Merino LPN acting as scribe for Dr. Jordan Miguel. Signature: Nelsy Merino LPN The documentation recorded by the scribe accurately reflects the service(s) I personally performed and the decisions I made. Signature: Jordan Miguel DO Assessment & Plan documented in this encounter [facility] 05-17-2024 Telephone encounter Note PDMP reviewed. Rx sent to pharmacy. [facility] 05-17-2024 Miscellaneous Notes PDMP reviewed. Rx sent to pharmacy. Pt having MRI today and is concerned about staying still in the machine due to pain. Can she have some meds to relax her please. Srinivas Parra please. MRI is at 10:30 documented in this encounter [facility] 05-17-2024 Telephone encounter Note Pt having MRI today and is concerned about staying still in the machine due to pain. Can she have some meds to relax her please. Drug jessica Teresae please. MRI is at 10:30 [facility] 05-10-2024 History of Present illness Narrative Associated Order(s): Trigger Point Injection (CPT 17875 [place] 90920): right gluteus willian Post-Procedure Diagnose(s): Trigger point Images from the original note were not included. HISTORY OF PRESENT ILLNESS: Atiya Jha is an 84 y.o. @ female. Chief complaint lumbar pain Lumbar: 12 days s/p RT SI trigger injx 04/29 (Ana) and RT SI injection 05/06/[address] Aragon. Neither injection gave relief. RT buttock pain ongoing for several months with flare up 3 weeks ago. Notes she has been taking care of her and lifting a lot lately. Pain is over RT buttock, lateral hip and radiates down her leg to rodriguez. Rodriguez feels like it is on fire, tender to the touch. Denies N/T. Admits waking at HS. Walking with cane when she is out of the house. Painful to lay on either side. She is not sleeping well. She notes a firm lump lateral since ZOË 2020. Trouble standing long periods. Had RT hip bursa inj on 03/01/24 with states she had 100% x 6 weeks. Pain is limiting her activities, not able to go out much x 3 weeks. Taking TYL, no NSAIDS while on Brilinta blood thinner. Using salon pas patch, w/o relief. TX: Topicals, TYL, salon pas patches, CBD cream, XR RT hip 05/26/23, depo medrol RT SI trigger point injection 10/07/23, XR [facility] lumbar 10/07/23, [facility] pain clinic, RT hip bursa inj 03/01/24, RT SI trigger injx 04/29/24 RT hip: Pt had RT ZOË 06/05/21 I reviewed notes from the [facility] Anson Jama MD dated June 06 2021. At that time the patient was seen status post Rt shoulder irrigation debridement with lysis of adhesions removal heterotopic ossification and revision of reverse shoulder arthroplasty with glenoid bone grafting. She was noted to have continued stiffness. It was recommended that she continue with home exercise. Physical therapy was also discussed. The patient's index shoulder replacement was November 25, 2018 in the revision was done on August 24, 2020 MEDICATION: Current Outpatient Medications on File Prior to Visit Medication Sig Dispense Refill alendronate (Fosamax) 70 MG tablet Take 1 tablet (70 mg) by mouth every 7 (seven) days Take in the morning with a full glass of water, on an empty stomach, and do not take anything else by mouth or lie down for the next 30 min. 4 tablet 11 aspirin 81 MG EC tablet Take 81 mg by mouth in the morning. atorvastatin (Lipitor) 80 MG tablet Take 80 mg by mouth in the morning. Calcium Carbonate-Vitamin D (Oyster Shell Calcium/D) 500-5 MG-MCG tablet Take 1 tablet by mouth in the morning. carvedilol (Coreg) 6.25 MG tablet Take by mouth 2 (two) times a day with meals. cholecalciferol (Vitamin D-3) 25 MCG (1000 UT) capsule Take 1,000 Units by mouth in the morning. docusate sodium (Colace) 50 MG capsule Take 50 mg by mouth in the morning and 50 mg before bedtime. estradiol (Estrace) 0.1 MG/GM vaginal cream 1 gram at bedtime for 2 weeks then twice weekly 42 g 3 hydroCHLOROthiazide (HYDRODiuril) 25 MG tablet Take 25 mg by mouth every other day hydrOXYzine HCl (Atarax) 25 MG tablet Take 25 mg by mouth at bedtime mirabegron ER (Myrbetriq) 25 MG 24 hr tablet Take 1 tablet (25 mg) by mouth at bedtime Do not crush, chew, or split. 90 tablet 3 nitroglycerin (Nitrodur) 0.1 MG/HR patch Place 1 patch on the skin Daily nitroglycerin (Nitrostat) 0.[address] 0.4 mg under the tongue every 5 (five) minutes if needed for chest pain. nystatin (Mycostatin) ointment Apply thin film BID prn irritation 30 g 1 Omeprazole Magnesium (PRILOSEC PO) Take by mouth telmisartan (MIcarDIS) 20 MG tablet Take 20 mg by mouth Daily telmisartan-hydroCHLOROthiazide (MIcarDIS HCT) 40-12.5 MG tablet Take 1 tablet by mouth in the morning. ticagrelor (Brilinta) 90 MG tablet Take 90 mg by mouth in the morning and 90 mg before bedtime. No current facility-administered medications on file prior to visit. MEDICAL HISTORY: Past Medical History: Diagnosis Date Acid reflux Anxiety ASHD (arteriosclerotic heart disease) (CMS/HCC) Atrophic vaginitis Bunion of great toe CAD (coronary artery disease) (CMS/HCC) Carpal tunnel syndrome Cervical disc disorder with radiculopathy of mid-cervical region Cervical pain Cervicalgia Chest wall pain Cystitis, unspecified with hematuria Female stress incontinence Foot pain GERD (gastroesophageal reflux disease) Globus sensation Heart attack (CMS/HCC) 01/2023 Hypercholesteremia (CMS/HCC) Hypertension (CMS/HCC) Hypotension due to drugs Inflamed seborrheic keratosis Lichenification and lichen simplex chronicus Lumbago with sciatica, right side Lumbar pain Menopause Mixed hyperlipidemia (CMS/HCC) Osteoarthrosis involving multiple sites Osteopenia Osteoporosis (CMS/HCC) Other bursitis of hip, right hip Other cystitis with hematuria Plantar fasciitis Postmenopausal state Presence of left artificial hip joint Primary osteoarthritis of right hip Pure hypercholesterolemia (CMS/HCC) Radicular pain Recurrent cystitis Rhus dermatitis Shingles Skin tag Solitary pulmonary nodule Status post total hip replacement, right Unspecified osteoarthritis, unspecified site Urgency of urination Urinary tract infection Vertigo Vitamin D deficiency ALLERGIES: No Known Allergies VITALS: Visit Vitals LMP (LMP Unknown) OB Status Postmenopausal Smoking Status Never PHYSICAL EXAM: Ortho Exam RIGHT HIP ROM 30 IR and 30 ER Tenderness greater troch and lower aspect of RT SI region Strength 4/5 abduction weakness Ambulating with cane IMAGING: October 07, 2023 x-rays from the [place] office AP and lateral and lateral flexion-extension views of the lumbar spine demonstrate scoliosis apex to the right at L2. There is a grade 2 slip of L4 on L5 of approximately 8.3 mm without instability when comparing flexion and extension images. There are no fractures. There is sclerosis and narrowing of the facet joints and disc space narrowing throughout. Impression: Lumbar facet arthritis with scoliosis and a grade 2 spondylolisthesis of L4 on L5 stable Reinaldo Suazo D.O. ASSESSMENT: ICD-10-CM 1. Chronic low back pain with right-sided sciatica, unspecified back pain laterality M54.41 G89.29 2. Lumbar spine pain M54.50 MR lumbar spine wo contrast 3. Trigger point M79.10 Trigger Point Injection (CPT 65670 [place] 35214): right gluteus willian RT SI Trigger Point Injection (CPT 96899 or 06693): right gluteus willian on 05/10/2024 1:50 PM Indications: pain Details: 21 G needle Medications: 40 mg methylPREDNISolone acetate 40 MG/ML Outcome: tolerated well, no immediate complications Procedure, treatment alternatives, risks and benefits explained, specific risks discussed. PLAN: I explained the diagnosis and reviewed treatment options. I discussed with the patient the option of an injection. I advised the patient of risks associated with an injection including a reaction to medication, infection, failure to improve and possible worsening. The patient demonstrated understanding. Patient requesting injection. Skin Cleansed with alcohol swab. Utilizing aseptic technique patient given 40mg Depomedrol was injected. Patient tolerated this well. Neurovasc intact s/p injection. Post injection care instructions discussed. I answered all of the patient's questions. I recommend a MRI of the lumbar spine, follow up after MRI. Dr. Suazo obtained history and examined the patient, I am acting as scribe for Dr. Suazo/connor Suazo D.O. documented in this encounter [facility] 05-03-2024 History of Present illness Narrative [facility] [address] [place] [address] Patient: Atiya Jha Sex: female : 1940 Age: 83 y.o. PCP: DANIS BARRETO DO 05/03/2024 Atiya Jha is here for follow up with increased pain in her Right SI joint. She did not complete the SI joint injection ordered at her last visit. Date of onset of pain: 2022 , pain has lasted greater than 3 months. Chief Complaint Patient presents with Back Pain HPI: 03/22/2021 Left SI joint injection w/ 100% relief Back Pain This is a chronic problem. The current episode started more than 1 year ago (years). The problem occurs constantly. The problem has been gradually worsening since onset. The pain is present in the lumbar spine and sacro-iliac. The quality of the pain is described as shooting, stabbing and burning. Radiates to: right leg to ankle. The pain is at a severity of 10/10 (10/10 with any weight bearing activities, ADLs increased activities). The pain is severe. The pain is The same all the time. Exacerbated by: increased activity and sitting, driving, standing, walking, any weight bearing activities. Stiffness is present: n/a. Pertinent negatives include no bladder incontinence, bowel incontinence, chest pain, fever, leg pain, numbness, tingling or weakness (wheelchair to appt today). Treatments tried: HEP, creams, salonpas w/mild relief, Previous Derek Ischial Bursa w/sig relief. 02/15/21 Left SI inj w/ 85% relief. The treatment provided mild relief. The effect of pain on patient's ADLS: Moderate Impairment. Past Medical History: Diagnosis Date Arthritis CAD (coronary artery disease) cardiac stent x 1 placed in 1999 Cancer ([facility]) Moh's basal cell carcinoma Cervical [...] 02/06/2020 Performed by Chay Broussard DO at [facility] 06/2002 tummy tuck INJECTION BLOCK SACROILIAC JOINT Left 03/22/2021 Performed by Darryl Aragon MD at [facility] INJECTION BLOCK SACROILIAC JOINT Left 02/15/2021 Performed by Darryl Aragon MD at [facility] INJECTION BURSA LARGE JOINT: right hip Right 11/16/2020 Performed by Darryl Aragon MD at [facility] LARGE JOINT BURSA: bilat ischial bursa Bilateral 05/18/2020 Performed by Darryl Aragon MD at [facility] LARGE JOINT BURSA: bilat ischial bursa Bilateral 01/02/2020 Performed by Darryl Aragon MD at [facility] INJECTION LARGE JOINT BURSA: bilat ischial bursa Bilateral 07/22/2019 Performed by Darryl Aragon MD at [facility] LARGE JOINT BURSA: right hip Right 07/30/2020 Performed by Darryl Aragon MD at [facility] JOINT REPLACEMENT Left 03/2011 hip LEG SKIN LESION BIOPSY / EXCISION 1998 RELEASE CARPAL TUNNEL Right 07/01/2023 Performed by Aidan Suazo DO at [facility] RELEASE TRIGGER FINGER Left 06/10/2023 Performed by Aidan Suazo DO at [facility] RELEASE TRIGGER FINGER Right 03/02/2019 Performed by Aidan Suazo DO at [facility] REPLACEMENT TOTAL JOINT HIP Right 06/05/2021 Performed by Aidan Suazo DO at [facility] TRIGGER FINGER RELEASE 11/2004 No Known Allergies [...] Never Smokeless tobacco: Never Vaping Use Vaping status: Never Used Substance and Sexual Activity Alcohol use: Yes Comment: social Drug use: Never Sexual activity: Defer Partners: Male Other Topics Concern Not on file Social History Narrative Not on file Social Determinants of Health Financial Resource Strain: Not on file Food Insecurity: No Food Insecurity (05/03/2024) Hunger Screening Food Insecurity - Worry: Never [...] Negative. Neurological: Negative. Negative for tingling, weakness (wheelchair to appt today) and numbness. Hematological: Negative. Psychiatric/Behavioral: Negative. Vital Signs: BP 199/85 (BP Site: Left Arm, BP Postition: Sitting) Pulse 64 Resp 20 Ht 162.6 cm (5' 4 ) Wt 66.7 kg (147 lb) BMI 25.23 kg/m Physical Exam: GENERAL - Healthy patient that [...] during discussion, demonstrated appropriate cognitive reasoning and understanding of the medical condition by asking appropriate questions [...] spine and paraspinal musculature. Pain is elicited with flexion, extension, and lateral rotation of the lumbar spine. Range of motion is diminished with these motions due to pain. Facet palpation is noted to be painful and facet loading maneuvers elicit pain that is concordant with the patient s normal pain complaints. Some muscle spasm is noted in the overlying musculature. STRENGTH - noted to be 5 out of 5 all muscle groups bilateral lower extremities including muscles involving hip flexion and abduction, knee flexion and extension, as well as foot dorsiflexion and plantarflexion. No notable atrophy, fasciculations or spasm. SENSORY - No notable sensory deficits in the bilateral lower extremities to touch or pinprick in all dermatomal distributions. Straight Leg Raise is negative bilaterally. Tenderness to palpation is noted over the Right SacroIliac Joint: Fabere sign (Jerson's Test) is significantly positive, as is compression and distraction of the sacroiliac joints, which is consistent with some of the patient's normal pain. Gait is antalgic and assisted with ambulatory aid(s): W/C. Assessment/Treatment Plan: Atiya was seen today for back pain. Diagnoses and all orders for this visit: Disorder of sacrum - Case request operating room: INJECTION BLOCK SACROILIAC JOINT RIGHT Right Sacroiliac Joint Injection - under fluoroscopy with the use of contrast dye (unless contraindicated) It is hopeful that the described procedure will provide symptomatic pain relief. It is felt to be medically necessary noting that the patient has tried and failed more conservative modalities of therapy and this is the next most appropriate step. The procedure was described in detail to the patient as well as the potential benefits of pain [...] monitoring for toxicity We do not currently prescribe any controlled substance from this practice. Treatment plans discussed but not opted for at this time: Updated lumbar MRI. Patient would like to proceed with the current outlined treatment plan before moving forward with any other options. The spine model was demonstrated and Xray and MRI was reviewed and used to explain the condition. Chronic conditions not treated during this visit that affected my overall medical decision making: Comorbidity- Coronary Artery disease The patient has a known history of heart disease and is currently under medical management for this condition. This must be considered due to the possible need for a pre-anesthetic medical evaluation prior to a procedure as well as the relative contraindication of the use of NSAID therapy detailed in recent literature. This approach was discussed with the patient along with the risks and benefits and the patient requests to proceed with this treatment plan. Comorbidity- Anticoagulation therapy The patient is currently being treated with an anticoagulant. For this reason, we will need to confer with the patients other physicians to determine if it is safe to discontinue this therapy for any planned procedure. If it is determined that discontinuation [...] of bleeding, hematoma formation, and possible paralysis. OARRS: Reviewed. Scribe Statement: Scribed for and in the presence of ABDULLAHI PATTERSON by Afua Irwin CNA. Provider Statement: I, ABDULLAHI PATTERSON, personally performed the services described in the documentation, as scribed by Afua Irwin CNA in my presence, and it is both accurate and complete. Afua Irwin CNA 05/03/24 1240 Afua Irwin CNA 05/03/24 1306 ABDULLAHI Patterson 05/03/24 1519 documented in this encounter [facility] [employer] 05-03-2024 Instructions Afua Irwin CNA - 05/03/2024 12:00 PM EDT Facet Injection / Medial Branch Block (MBB) / Sacroiliac (SI) Joint Injection / Cluneal NB A facet injection and sacroiliac joint injection [...] take you to the nearest emergency room. Tell the emergency room staff that you recently had a spine injection. A doctor must evaluate you for bleeding and injection complications. If you lose control over bowel, bladder, or legs: Go to the nearest emergency room. documented in this encounter [id number] 05-02-2024 Miscellaneous Notes Usually have to wait every 3-4 months to repeat injection We gave her 40mg of depo medrol for a right SI trigger point injection. The injection can take up to 2 weeks to start working but if she wants to get started on seeing pain management that is fine. Atiya called and left vm , she stated she saw you on Thursday in [facility] and was given an injection, which did absolutely nothing and she needs to know what you gave her, and how long until she can get another one? She is going to make arrangements to get into the pain clinic. Her call back [phone] documented in this encounter [facility] 05-02-2024 Telephone encounter Note Usually have to wait every 3-4 months to repeat injection T [facility] 05-02-2024 Telephone encounter Note We gave her 40mg of depo medrol for a right SI trigger point injection. The injection can take up to 2 weeks to start working but if she wants to get started on seeing pain management that is fine. [facility] 05-02-2024 Telephone encounter Note Atiya called and left vm , she stated she saw you on Thursday in [facility] and was given an injection, which did absolutely nothing and she needs to know what you gave her, and how long until she can get another one? She is going to make arrangements to get into the pain clinic. Her call back [phone] [facility] 03-01-2024 Hospital Discharge instructions Patient Education 03/01/2024 14:40:48 Pelvic Organ Prolapse Pelvic Organ Prolapse Pelvic organ prolapse is a condition in women that involves the stretching, bulging, or dropping of pelvic organs into an abnormal position, past the opening of the vagina. It happens when the muscles and tissues that surround and support pelvic structures become weak or stretched. Pelvic organ prolapse can involve the: Vagina (vaginal prolapse). Uterus (uterine prolapse). Bladder (cystocele). Rectum (rectocele). Intestines (enterocele). When organs other than the vagina are involved, they often bulge into the vagina or protrude from the vagina, depending on how severe the prolapse is. What are the causes? This condition may be caused by: , labor, and childbirth. Past pelvic surgery. Lower levels of the hormone estrogen due to menopause. Consistently lifting more than 50 lb (23 kg). Obesity. Long-term difficulty passing stool (chronic constipation). Long-term, or chronic, cough. Fluid buildup in the abdomen due to certain conditions. What are the signs or symptoms? Symptoms of this condition include: Leaking a little urine (loss of bladder control) when you cough, sneeze, strain, and exercise (stress incontinence). This may be worse immediately after childbirth. It may gradually improve over time. Feeling pressure in your pelvis or vagina. This pressure may increase when you cough or when you are passing stool. A bulge that protrudes from the opening of your vagina. Difficulty passing urine or stool. Pain in your lower back. Pain or discomfort during sex, or decreased interest in sex. Repeated bladder infections (urinary tract infections). Difficulty inserting a tampon. In some people, this condition causes no symptoms. How is this diagnosed? This condition may be diagnosed based on a vaginal and rectal exam. During the exam, you may be asked to cough and strain while you are lying down, sitting, and standing up. Your health care provider will determine if other tests are required, such as bladder function tests. How is this treated? Treatment for this condition may depend on your symptoms. Treatment may include: Lifestyle changes, such as drinking plenty of fluids and eating foods that are high in fiber. Emptying your bladder at scheduled times (bladder training therapy). This can help reduce or avoid urinary incontinence. Estrogen. This may help mild prolapse by increasing the strength and tone of pelvic floor muscles. Kegel exercises. These may help mild cases of prolapse by strengthening and tightening the muscles of the pelvic floor. A soft, flexible device that helps support the vaginal triplett and keep pelvic organs in place (pessary). This is inserted into your vagina by your health care provider. Surgery. This is often the only form of treatment for severe prolapse. Follow these instructions at home: Eating and drinking Avoid drinking beverages that contain caffeine or alcohol. Increase your intake of high-fiber foods to decrease constipation and straining during bowel movements. Activity Lose weight if recommended by your health care provider. Avoid heavy lifting and straining with exercise and work. Do not hold your breath when you perform mild to moderate lifting and exercise activities. Limit your activities as directed by your health care provider. Do Kegel exercises as directed by your health care provider. To do this: ?Squeeze your pelvic floor muscles tight. You should feel a tight lift in your rectal area and a tightness in your vaginal area. Keep your stomach, buttocks, and legs relaxed. ?Hold the muscles tight for up to 10 seconds. Then relax your muscles. ?Repeat this exercise 50 times a day, or as much as told by your health care provider. Continue to do this exercise for at least 4 6 weeks, or for as long as told by your health care provider. General instructions Take rrao-ova-wjcbguq and prescription medicines only as told by your health care provider. Wear a sanitary pad or adult diapers if you have urinary incontinence. If you have a pessary, take care of it as told by your health care provider. Keep all follow-up visits. This is important. Contact a health care provider if you: Have symptoms that interfere with your daily activities or sex life. Need medicine to help with the discomfort. Notice bleeding from your vagina that is not related to your menstrual period. Have a fever. Have pain or bleeding when you urinate. Have bleeding when you pass stool. Pass urine when you have sex. Have chronic constipation. Have a pessary that falls out. Have a foul-smelling vaginal discharge. Have an unusual, low pain in your abdomen. Get help right away if you: Cannot pass urine. Summary Pelvic organ prolapse is the stretching, bulging, or dropping of pelvic organs into an abnormal position. It happens when the muscles and tissues that surround and support pelvic structures become weak or stretched. When organs other than the vagina are involved, they often bulge into the vagina or protrude from it, depending on how severe the prolapse is. In most cases, this condition needs to be treated only if it produces symptoms. Treatment may include lifestyle changes, estrogen, Kegel exercises, pessary insertion, or surgery. Avoid heavy lifting and straining with exercise and work. Do not hold your breath when you perform mild to moderate lifting and exercise activities. Limit your activities as directed by your health care provider. This information is not intended to replace advice given to you by your health care provider. Make sure you discuss any questions you have with your health care provider. Document Revised: 01/14/2021 Document Reviewed: 01/14/2021 [employer] Patient Education 2022 [employer]. Follow Up Care 02/29/2024 10:23:19 With:SYL SAMS, Jerson Santiago, URL Address: [facility] [address] , [place] [address]- When: Unknown [facility] 03-01-2024 Note Patient Education Obstetrics and Gynecology Pelvic Organ Prolapse Pelvic organ prolapse is a condition in women that involves the stretching, bulging, or dropping of pelvic organs into an abnormal position, past the opening of the vagina. It happens when the muscles and tissues that surround and support pelvic structures become weak or stretched. Pelvic organ prolapse can involve the: ? Vagina (vaginal prolapse). ? Uterus (uterine prolapse). ? Bladder (cystocele). ? Rectum (rectocele). ? Intestines (enterocele). When organs other than the vagina are involved, they often bulge into the vagina or protrude from the vagina, depending on how severe the prolapse is. What are the causes? This condition may be caused by: ? , labor, and childbirth. ? Past pelvic surgery. ? Lower levels of the hormone estrogen due to menopause. ? Consistently lifting more than 50 lb (23 kg). ? Obesity. ? Long-term difficulty passing stool (chronic constipation). ? Long-term, or chronic, cough. ? Fluid buildup in the abdomen due to certain conditions. What are the signs or symptoms? Symptoms of this condition include: ? Leaking a little urine (loss of bladder control) when you cough, sneeze, strain, and exercise (stress incontinence). This may be worse immediately after childbirth. It may gradually improve over time. ? Feeling pressure in your pelvis or vagina. This pressure may increase when you cough or when you are passing stool. ? A bulge that protrudes from the opening of your vagina. ? Difficulty passing urine or stool. ? Pain in your lower back. ? Pain or discomfort during sex, or decreased interest in sex. ? Repeated bladder infections (urinary tract infections). ? Difficulty inserting a tampon. In some people, this condition causes no symptoms. How is this diagnosed? This condition may be diagnosed based on a vaginal and rectal exam. During the exam, you may be asked to cough and strain while you are lying down, sitting, and standing up. Your health care provider will determine if other tests are required, such as bladder function tests. How is this treated? Treatment for this condition may depend on your symptoms. Treatment may include: ? Lifestyle changes, such as drinking plenty of fluids and eating foods that are high in fiber. ? Emptying your bladder at scheduled times (bladder training therapy). This can help reduce or avoid urinary incontinence. ? Estrogen. This may help mild prolapse by increasing the strength and tone of pelvic floor muscles. ? Kegel exercises. These may help mild cases of prolapse by strengthening and tightening the muscles of the pelvic floor. ? A soft, flexible device that helps support the vaginal triplett and keep pelvic organs in place (pessary). This is inserted into your vagina by your health care provider. ? Surgery. This is often the only form of treatment for severe prolapse. Follow these instructions at home: Eating and drinking ? Avoid drinking beverages that contain caffeine or alcohol. ? Increase your intake of high-fiber foods to decrease constipation and straining during bowel movements. Activity ? Lose weight if recommended by your health care provider. ? Avoid heavy lifting and straining with exercise and work. Do not hold your breath when you perform mild to moderate lifting and exercise activities. Limit your activities as directed by your health care provider. ? Do Kegel exercises as directed by your health care provider. To do this: ? Squeeze your pelvic floor muscles tight. You should feel a tight lift in your rectal area and a tightness in your vaginal area. Keep your stomach, buttocks, and legs relaxed. ? Hold the muscles tight for up to 10 seconds. Then relax your muscles. ? Repeat this exercise 50 times a day, or as much as told by your health care provider. Continue to do this exercise for at least 4?6 weeks, or for as long as told by your health care provider. General instructions ? Take lhqc-suo-yiyvwml and prescription medicines only as told by your health care provider. ? Wear a sanitary pad or adult diapers if you have urinary incontinence. ? If you have a pessary, take care of it as told by your health care provider. ? Keep all follow-up visits. This is important. Contact a health care provider if you: ? Have symptoms that interfere with your daily activities or sex life. ? Need medicine to help with the discomfort. ? Notice bleeding from your vagina that is not related to your menstrual period. ? Have a fever. ? Have pain or bleeding when you urinate. ? Have bleeding when you pass stool. ? Pass urine when you have sex. ? Have chronic constipation. ? Have a pessary that falls out. ? Have a foul-smelling vaginal discharge. ? Have an unusual, low pain in your abdomen. Get help right away if you: ? Cannot pass urine. Summary ? Pelvic organ prolapse is the stretching, bulging, or dropp (more content not included)... [facility] 02-08-2024 Hospital Discharge instructions Patient Education 02/08/2024 11:50:06 Pelvic Organ Prolapse Pelvic Organ Prolapse Pelvic organ prolapse is a condition in women that involves the stretching, bulging, or dropping of pelvic organs into an abnormal position, past the opening of the vagina. It happens when the muscles and tissues that surround and support pelvic structures become weak or stretched. Pelvic organ prolapse can involve the: Vagina (vaginal prolapse). Uterus (uterine prolapse). Bladder (cystocele). Rectum (rectocele). Intestines (enterocele). When organs other than the vagina are involved, they often bulge into the vagina or protrude from the vagina, depending on how severe the prolapse is. What are the causes? This condition may be caused by: , labor, and childbirth. Past pelvic surgery. Lower levels of the hormone estrogen due to menopause. Consistently lifting more than 50 lb (23 kg). Obesity. Long-term difficulty passing stool (chronic constipation). Long-term, or chronic, cough. Fluid buildup in the abdomen due to certain conditions. What are the signs or symptoms? Symptoms of this condition include: Leaking a little urine (loss of bladder control) when you cough, sneeze, strain, and exercise (stress incontinence). This may be worse immediately after childbirth. It may gradually improve over time. Feeling pressure in your pelvis or vagina. This pressure may increase when you cough or when you are passing stool. A bulge that protrudes from the opening of your vagina. Difficulty passing urine or stool. Pain in your lower back. Pain or discomfort during sex, or decreased interest in sex. Repeated bladder infections (urinary tract infections). Difficulty inserting a tampon. In some people, this condition causes no symptoms. How is this diagnosed? This condition may be diagnosed based on a vaginal and rectal exam. During the exam, you may be asked to cough and strain while you are lying down, sitting, and standing up. Your health care provider will determine if other tests are required, such as bladder function tests. How is this treated? Treatment for this condition may depend on your symptoms. Treatment may include: Lifestyle changes, such as drinking plenty of fluids and eating foods that are high in fiber. Emptying your bladder at scheduled times (bladder training therapy). This can help reduce or avoid urinary incontinence. Estrogen. This may help mild prolapse by increasing the strength and tone of pelvic floor muscles. Kegel exercises. These may help mild cases of prolapse by strengthening and tightening the muscles of the pelvic floor. A soft, flexible device that helps support the vaginal triplett and keep pelvic organs in place (pessary). This is inserted into your vagina by your health care provider. Surgery. This is often the only form of treatment for severe prolapse. Follow these instructions at home: Eating and drinking Avoid drinking beverages that contain caffeine or alcohol. Increase your intake of high-fiber foods to decrease constipation and straining during bowel movements. Activity Lose weight if recommended by your health care provider. Avoid heavy lifting and straining with exercise and work. Do not hold your breath when you perform mild to moderate lifting and exercise activities. Limit your activities as directed by your health care provider. Do Kegel exercises as directed by your health care provider. To do this: ?Squeeze your pelvic floor muscles tight. You should feel a tight lift in your rectal area and a tightness in your vaginal area. Keep your stomach, buttocks, and legs relaxed. ?Hold the muscles tight for up to 10 seconds. Then relax your muscles. ?Repeat this exercise 50 times a day, or as much as told by your health care provider. Continue to do this exercise for at least 4 6 weeks, or for as long as told by your health care provider. General instructions Take jhry-usd-yvjxlja and prescription medicines only as told by your health care provider. Wear a sanitary pad or adult diapers if you have urinary incontinence. If you have a pessary, take care of it as told by your health care provider. Keep all follow-up visits. This is important. Contact a health care provider if you: Have symptoms that interfere with your daily activities or sex life. Need medicine to help with the discomfort. Notice bleeding from your vagina that is not related to your menstrual period. Have a fever. Have pain or bleeding when you urinate. Have bleeding when you pass stool. Pass urine when you have sex. Have chronic constipation. Have a pessary that falls out. Have a foul-smelling vaginal discharge. Have an unusual, low pain in your abdomen. Get help right away if you: Cannot pass urine. Summary Pelvic organ prolapse is the stretching, bulging, or dropping of pelvic organs into an abnormal position. It happens when the muscles and tissues that surround and support pelvic structures become weak or stretched. When organs other than the vagina are involved, they often bulge into the vagina or protrude from it, depending on how severe the prolapse is. In most cases, this condition needs to be treated only if it produces symptoms. Treatment may include lifestyle changes, estrogen, Kegel exercises, pessary insertion, or surgery. Avoid heavy lifting and straining with exercise and work. Do not hold your breath when you perform mild to moderate lifting and exercise activities. Limit your activities as directed by your health care provider. This information is not intended to replace advice given to you by your health care provider. Make sure you discuss any questions you have with your health care provider. Document Revised: 01/14/2021 Document Reviewed: 01/14/2021 [employer] Patient Education 2022 [employer]. Follow Up Care 01/29/2024 09:47:30 With:SYL SAMS, Jerson Santiago, URL Address: [address] [place] [id number]- When: Unknown Comments:our personnel scheduler will be calling you to schedule cysto [facility] 02-08-2024 Note Patient Education Obstetrics and Gynecology Pelvic Organ Prolapse Pelvic organ prolapse is a condition in women that involves the stretching, bulging, or dropping of pelvic organs into an abnormal position, past the opening of the vagina. It happens when the muscles and tissues that surround and support pelvic structures become weak or stretched. Pelvic organ prolapse can involve the: ? Vagina (vaginal prolapse). ? Uterus (uterine prolapse). ? Bladder (cystocele). ? Rectum (rectocele). ? Intestines (enterocele). When organs other than the vagina are involved, they often bulge into the vagina or protrude from the vagina, depending on how severe the prolapse is. What are the causes? This condition may be caused by: ? , labor, and childbirth. ? Past pelvic surgery. ? Lower levels of the hormone estrogen due to menopause. ? Consistently lifting more than 50 lb (23 kg). ? Obesity. ? Long-term difficulty passing stool (chronic constipation). ? Long-term, or chronic, cough. ? Fluid buildup in the abdomen due to certain conditions. What are the signs or symptoms? Symptoms of this condition include: ? Leaking a little urine (loss of bladder control) when you cough, sneeze, strain, and exercise (stress incontinence). This may be worse immediately after childbirth. It may gradually improve over time. ? Feeling pressure in your pelvis or vagina. This pressure may increase when you cough or when you are passing stool. ? A bulge that protrudes from the opening of your vagina. ? Difficulty passing urine or stool. ? Pain in your lower back. ? Pain or discomfort during sex, or decreased interest in sex. ? Repeated bladder infections (urinary tract infections). ? Difficulty inserting a tampon. In some people, this condition causes no symptoms. How is this diagnosed? This condition may be diagnosed based on a vaginal and rectal exam. During the exam, you may be asked to cough and strain while you are lying down, sitting, and standing up. Your health care provider will determine if other tests are required, such as bladder function tests. How is this treated? Treatment for this condition may depend on your symptoms. Treatment may include: ? Lifestyle changes, such as drinking plenty of fluids and eating foods that are high in fiber. ? Emptying your bladder at scheduled times (bladder training therapy). This can help reduce or avoid urinary incontinence. ? Estrogen. This may help mild prolapse by increasing the strength and tone of pelvic floor muscles. ? Kegel exercises. These may help mild cases of prolapse by strengthening and tightening the muscles of the pelvic floor. ? A soft, flexible device that helps support the vaginal triplett and keep pelvic organs in place (pessary). This is inserted into your vagina by your health care provider. ? Surgery. This is often the only form of treatment for severe prolapse. Follow these instructions at home: Eating and drinking ? Avoid drinking beverages that contain caffeine or alcohol. ? Increase your intake of high-fiber foods to decrease constipation and straining during bowel movements. Activity ? Lose weight if recommended by your health care provider. ? Avoid heavy lifting and straining with exercise and work. Do not hold your breath when you perform mild to moderate lifting and exercise activities. Limit your activities as directed by your health care provider. ? Do Kegel exercises as directed by your health care provider. To do this: ? Squeeze your pelvic floor muscles tight. You should feel a tight lift in your rectal area and a tightness in your vaginal area. Keep your stomach, buttocks, and legs relaxed. ? Hold the muscles tight for up to 10 seconds. Then relax your muscles. ? Repeat this exercise 50 times a day, or as much as told by your health care provider. Continue to do this exercise for at least 4?6 weeks, or for as long as told by your health care provider. General instructions ? Take rgjp-jzt-xthldbo and prescription medicines only as told by your health care provider. ? Wear a sanitary pad or adult diapers if you have urinary incontinence. ? If you have a pessary, take care of it as told by your health care provider. ? Keep all follow-up visits. This is important. Contact a health care provider if you: ? Have symptoms that interfere with your daily activities or sex life. ? Need medicine to help with the discomfort. ? Notice bleeding from your vagina that is not related to your menstrual period. ? Have a fever. ? Have pain or bleeding when you urinate. ? Have bleeding when you pass stool. ? Pass urine when you have sex. ? Have chronic constipation. ? Have a pessary that falls out. ? Have a foul-smelling vaginal discharge. ? Have an unusual, low pain in your abdomen. Get help right away if you: ? Cannot pass urine. Summary ? Pelvic organ prolapse is the stretching, bulging, or dropp (more content not included)... [facility] 01-12-2024 History of Present illness Narrative Subjective Atiya Jha is a 83 y.o. female Chief Complaint Follow-up HPI Patient returns in follow-up of problems as noted. In the interim she is done well. Prior to her the diagnosis of coronary disease and subsequent PCI she states she did not feel right . After intervention she states that that feeling went away. Interestingly she denied chest discomfort of any sort and also denied dyspnea. Simply put, she could only call it not feeling right is her primary symptom. She was educated that recurrence of such symptomatology could represent progression of coronary atherosclerosis Other matters were reviewed. Treatment of blood pressure and lipids is satisfactory. She was congratulated in this regard and also for her ideal BMI. Vitals: 01/12/24 0944 BP: 152/73 BP Location: Left arm Patient Position: Sitting Pulse: 65 Weight: 67.1 kg (148 lb) Height: 1.651 m (5' 5 ) Objective Physical Exam Constitutional: Appearance: Normal appearance. HENT: Nose: Nose normal. Neck: Vascular: No carotid bruit. Cardiovascular: Rate and Rhythm: Normal rate. Pulses: Normal pulses. Heart sounds: Normal heart sounds. Pulmonary: Effort: Pulmonary effort is normal. Abdominal: General: Bowel sounds are normal. Palpations: Abdomen is soft. Musculoskeletal: General: Normal range of motion. Cervical back: Normal range of motion. Right lower leg: No edema. Left lower leg: No edema. Skin: General: Skin is warm and dry. Neurological: General: No focal deficit present. Mental Status: She is alert. Psychiatric: Mood and Affect: Mood normal. Behavior: Behavior normal. Thought Content: Thought content normal. Judgment: Judgment normal. Allergies Patient has no known allergies. Current Medications Current Outpatient Medications: alendronate (Fosamax) [...] capsule, Take 1 capsule (20 mg) by mouth. Take half tablet (10mg) once a day., Disp: , Rfl: ticagrelor (Brilinta) 90 mg tablet, Take 1 tablet (90 mg) by mouth 2 times a day., Disp: , Rfl: Assessment/Plan 1. ASCVD (arteriosclerotic cardiovascular disease) Coronary disease appears to be stable with no symptomatology such as that that preceded PTCA - Follow Up In Cardiology 2. Essential hypertension Review of treatment demonstrates good control 3. Mixed hyperlipidemia Review of treatment demonstrates good control 4. History of PTCA Durable and lasting relief of anginal symptoms relieved. Did not have classic angina, though. 5. Never smoked cigarettes Noted Scribe Attestation By signing my name below, I, Payton Nelson Zelaya LPN attest that this documentation has been prepared under the direction and in the presence of Darryl Santillan MD. Provider Attestation - Scribe documentation All medical record entries made by the Scribe were at my direction and personally dictated by me. I have reviewed the chart and agree that the record accurately reflects my personal performance of the history, physical exam, discussion and plan. documented in this encounter [facility] Work Phone: 01-12-2024 Instructions Radha Benavidez LPN - 01/12/2024 9:40 AM EDT Please bring all medicines, vitamins, and herbal supplements with you when you come to the office. Prescriptions will not be filled unless you are compliant with your follow up appointments or have a follow up appointment scheduled as per instruction of your physician. Refills should be requested at the time of your visit. documented in this encounter [facility] Work Phone: 11-30-2023 Evaluation + Plan note Associated Problem(s): Dysuria Dysuria and frequency [facility] Work Phone: 11-30-2023 Evaluation + Plan note Associated Problem(s): Weakness Patient has noted progressive worsening weakness. Initially identified last month, was actually one of the reason she had perfusion study. Following PCI continues progressive weakness and fatigability. Question if related to iatrogenic hypotension She also complains of dysuria and will rule out urinary tract infection Otherwise, Nitro-Dur was new at discharge. Her complaints of weakness kind of predate Nitro-Dur. No orthopnea or PND. No dyspnea on exertion. [facility] Work Phone: 11-30-2023 Miscellaneous Notes Associated Problem(s): Dysuria Dysuria and frequency Associated Problem(s): Weakness Patient has noted progressive worsening weakness. Initially identified last month, was actually one of the reason she had perfusion study. Following PCI continues progressive weakness and fatigability. Question if related to iatrogenic hypotension She also complains of dysuria and will rule out urinary tract infection Otherwise, Nitro-Dur was new at discharge. Her complaints of weakness kind of predate Nitro-Dur. No orthopnea or PND. No dyspnea on exertion. 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 LVEF 40% She was initiated on Nitropatch 0.2 mg/h documented in this encounter [facility] Work Phone: 11-30-2023 Evaluation + Plan note Associated Problem(s): Congestive heart failure, NYHA class 2 and ACC/AHA stage C (Multi) IC HF borderline EF 40% November 2023 cath (January 2023 TTE EF 40-45%) FC III weakness and fatigue GDMT Coreg Huemannyis [facility] Work Phone: 11-30-2023 Evaluation + Plan note Associated Problem(s): ASCVD (arteriosclerotic cardiovascular disease) November 18, 2023 cardiac cath following abnormal outpatient perfusion study Ostial/proximal LAD PCI/Mary Alice 2.5 x 15 mm Proximal circumflex with patent stent RCA 25% She then had diffuse disease of small vessels including OM and PDA. LVEF 40% She was initiated on Nitropatch 0.2 mg/h [facility] Work Phone: 11-30-2023 History of Present illness Narrative Chief Complaint I am just getting so tired Reason for Visit Add-on Patient presents to the office today for outpatient follow-up for progressive worsening weakness, fatigability. Last evaluated in clinic by Dr. Mariano June 2023. In October 2023 had called into the office with concerns of weakness and anginal symptoms. Subsequent perfusion study was abnormal and on November 18, 2023 had cardiac catheterization and subsequent coronary intervention. She had a mild right hematoma postprocedure. She then called into the office last week with concerns about significant fatigability. I had ordered Chem-6 and CBC, she reports having done at [employer] [facility] and will need to request records. Presents today ambulatory with steady gait. Accompanied by child History of Present Illness Is a very pleasant 83-year-old female who presents to the office today with primary concern of continued generalized weakness. She reports that she just is not bouncing back after she thought she would following her recent coronary intervention. She reports simply fatigability and just being tired most of the day . Her right groin cath site has healed without adverse sequela. She denies any fever or chills. She complains of some mild dysuria. Her complaints of weakness have actually been progressing prior to her coronary intervention. She did get her lab work completed, I need to obtain them. Here in the office she is hypotensive with systolic blood pressure 82/50 and 102/56. She denies any postural complaints. Question if she is having symptomatic hypotension. Other etiologies could include urinary tract infection as she complains of dysuria. Cardiac catheter EF was 40%, pretty consistent with her known history. Discussed optimal medical treatment. At this time, due to hypotension will need to interrupt Micardis. Remains compliant with DAPT. Patient reports that overall has no complaint(s) of chest pain, chest pressure/discomfort, claudication, dyspnea, and irregular heart beat Review of Systems Constitutional: Positive for malaise/fatigue. Cardiovascular: Negative for chest pain, dyspnea on exertion, irregular heartbeat, leg swelling, near-syncope, orthopnea, palpitations, paroxysmal nocturnal dyspnea and syncope. Genitourinary: Positive for dysuria. Visit Vitals BP 102/56 (BP Location: Left arm, Patient Position: Sitting) Pulse 68 Ht 1.651 m (5' 5 ) Wt 67.1 kg (148 lb) BMI 24.63 kg/m Smoking Status Never BSA 1.75 m Physical Exam Vitals and nursing note reviewed. HENT: Head: Normocephalic. Cardiovascular: Rate and Rhythm: Normal rate and regular rhythm. Heart sounds: Murmur heard. Systolic murmur is present with a grade of 1/6. Pulmonary: Effort: Pulmonary effort is normal. Breath sounds: Normal breath sounds. Abdominal: Palpations: Abdomen is soft. Musculoskeletal: Right lower leg: No edema. Left lower leg: No edema. Skin: General: Skin is warm and dry. Neurological: General: No focal deficit present. Mental Status: She is alert. Psychiatric: Mood and Affect: Mood normal. Behavior: Behavior normal. No Known Allergies Current Outpatient Medications Medication Instructions alendronate (FOSAMAX) 70 mg, oral, Every 7 days, Take in the morning with a full glass of water, on an empty stomach, and do not take anything else by mouth or lie down for the next 30 min. aspirin 81 mg, oral, Daily atorvastatin (LIPITOR) 80 mg, oral, Daily calcium carbonate-vitamin D3 500 mg-5 mcg (200 unit) tablet 1 tablet, oral, Daily carvedilol (COREG) 6.25 mg, oral, 2 times daily with meals nitroglycerin (Nitrodur) 0.2 mg/hr patch 1 patch, transdermal, Daily PRN nitroglycerin (NITROSTAT) 0.4 mg, sublingual, Every 5 min PRN omeprazole (PRILOSEC) 20 mg, oral, Daily before breakfast, Do not crush or chew. ticagrelor (BRILINTA) 90 mg, oral, 2 times daily Assessment: ASCVD (arteriosclerotic cardiovascular disease) November 18, 2023 cardiac cath following abnormal outpatient perfusion study Ostial/proximal LAD PCI/Mary Alice 2.5 x 15 mm Proximal circumflex with patent stent RCA 25% She then had diffuse disease of small vessels including OM and PDA. LVEF 40% She was initiated on Nitropatch 0.2 mg/h Congestive heart failure, NYHA class 2 and ACC/AHA stage C (Multi) IC HF borderline EF 40% November 2023 cath (January 2023 TTE EF 40-45%) FC III weakness and fatigue GDMT Coreg Micardis Weakness Patient has noted progressive worsening weakness. Initially identified last month, was actually one of the reason she had perfusion study. Following PCI continues progressive weakness and fatigability. Question if related to iatrogenic hypotension She also complains of dysuria and will rule out urinary tract infection Otherwise, Nitro-Dur was new at discharge. Her complaints of weakness kind of predate Nitro-Dur. No orthopnea or PND. No dyspnea on exertion. Dysuria Dysuria and frequency Plan: Through informed decision making process incorporating patients unique circumstances, the following treatment plan will be initiated: 1. Prescription drug management of cardiovascular medication for efficacy, adherence to treatment, side effect assessment and polypharmacy. Current treatment clinically warranted and to continue with following modifications: - Hold micardis 2. UA (dysuria, weakness) 3. Call me next week to update on how feeling. Hopefully will start cardiac rehab at that time (TB) and start something else for weak heart muscle. 4. Return for follow-up; in the interim, contact the office if new symptoms arise. Dr. Santillan as scheduled Sulma Busby MSN, ABDULLAHI, PMHNP-[facility] Please excuse any errors in grammar or translation related to this dictation. Voice recognition software was utilized to prepare this document. documented in this encounter [facility] Work Phone: 11-30-2023 Instructions ABDULLAHI Kaur - 11/30/2023 10:00 AM EDT Please bring all medicines, vitamins, and herbal supplements with you when you come to the office. Prescriptions will not be filled unless you are compliant with your follow up appointments or have a follow up appointment scheduled as per instruction of your physician. Refills should be requested at the time of your visit. PLAN: Through informed decision making process incorporating patients unique circumstances, the following treatment plan will be initiated: 1. Prescription drug management of cardiovascular medication for efficacy, adherence to treatment, side effect assessment and polypharmacy. Current treatment clinically warranted and to continue with following modifications: - Hold micardis 2. UA (dysuria, weakness) 3. Call me next week to update on how feeling. Hopefully will start cardiac rehab at that time (TB) and start something else for weak heart muscle. 4. Return for follow-up; in the interim, contact the office if new symptoms arise. Dr. 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 Patient [...] Code(s): I25.10 - Atherosclerotic heart disease of [place] coronary artery without angina pectoris (2) Hypertension: Code(s): I10 - Essential (primary) hypertension (3) Coronary artery disease: Code(s): I25.10 - Atherosclerotic heart disease of [place] coronary artery without angina pectoris (4) Unstable [...] 30 Documented By: Allan Townsend DO 11/19/23 1100 Signed By: <Electronically signed by Allan Townsend DO> 11/19/23 3841 [facility] Work Phone: 1(256) 393-677204-17-2024 [facility] Discharge summary Author Allan Townsend [facility] November 18, 2023 3:36pm Note Date/Time November 18, 2023 3:3 5pm [facility] [address] [place] [address] Discharge Summary Signed Patient: Atiya Jha MR#: [id number] : 1940 Acct:[id number] Age/Sex: 83 / F Adm Date: 4 [...] proximal LAD with 2.5 x 15 mm Mary Alice Summary Hospital Course Hospital course: 83-year-old female referred for elective left heart catheterization due to progressive angina, subsequent abnormal stress imaging with anterolateral and apical ischemia; with a history of prior [place] with proximal circumflex subacute stent thrombosis within [...] proximal LAD with 2.5 x 15 mm Mary Alice She will continue with current therapies including [...] s CL Closure Device Placement 0 - W Ziyad Townsend DO p CL LHC & COR Angio - Allan Townsend DO p [place] Stent 1st Vessel LAD GRIFFIN - Allan Townsend DO Complications Complications: None Discharge Plan [...] doctor or pharmacist, without first calling the forensic document examiner who implanted the stent. If you require [...] weight lifting, stair steppers, etc. until the forensic document examiner approves these activities. Check with the forensic document examiner on your first follow-up visit. CALL YOUR PROTECTIVE SERVICES OFFICER: -If bleeding should occur from the catheter insertion site- apply pressure to the site then immediately call us. -Report any fever, redness, drainage, increased swelling, or firmness at the catheter insertion site. Some bruising or slight swelling may be present at thetime of discharge. -Should arm or leg become cold, numb, white, or blue, contact the forensic document examiner immediately. -IF you should experience episodes of [...] if you have recurrent angina. The attending forensic document examiner or a nurse clinician should provide you with specificinstructions regarding activity, diet, medications, and further follow up for you. Follow the medication instructions provided on your discharge. If the dosages and instructions on this sheet differ from the dosage and instructions on the bottle, follow the instructions on the bottle. [facility] is not responsible for incorrect prescription [...] signed by Allan Townsend DO> 11/18/23 1536 [facility] Work Phone: 1(954) 985-170604-17-2024 Procedure noteTri[facility]03-26-2024 Miscellaneous Notes* Telephone Encounter - Mallory Cortés CNA - 10/27/2023 10:20 AM EDT Atiya called to inform that her Brilinta is prescribed by Dr Townsend and that she is having surgery with Dr Santillan on November 09 [facility] Telephone encounter Note* Telephone Encounter - Mallory Cortés CNA - 10/27/2023 10:20 AM EDT Atiya called to inform that her Brilinta is prescribed by Dr Townsend and that she is having surgery with Dr Santillan on November 09 [facility]03-26-[facility] History of Present illness Narrative* SHANNAN Morton - 10/27/2023 8:30 AM EDT [facility] [address] [place] [address] Patient: Atiya Jha Sex: female : 1940 Age: 83 y.o. PCP: DANIS BARRETO DO 10/27/2023 Atiya Jha is here for [...] stent x 1 placed in 1999 Cancer ([facility]) Moh's basal cell carcinoma Cervical [...] 02/06/2020 Performed by Chay Broussard DO at [facility] 06/2002 tummy tuck INJECTION BLOCK SACROILIAC JOINT Left 03/22/2021 Performed by Darryl Aragon MD at [facility] INJECTION BLOCK SACROILIAC JOINT Left 02/15/2021 Performed by Darryl Aragon MD at [facility] INJECTION BURSA LARGE JOINT: right hip Right 11/16/2020 Performed by Darryl Aragon MD at [facility] LARGE JOINT BURSA: bilat ischial bursa Bilateral 05/18/2020 Performed by Darryl Aragon MD at [facility] LARGE JOINT BURSA: bilat ischial bursa Bilateral 01/02/2020 Performed by Darryl Aragon MD at [facility] LARGE JOINT BURSA: bilat ischial bursa Bilateral 07/22/2019 Performed by Darryl Aragon MD at [facility] LARGE JOINT BURSA: right hip Right 07/30/2020 Performed by Darryl Aragon MD at [facility] JOINT REPLACEMENT Left 03/2011 hip LEG SKIN LESION BIOPSY / EXCISION 1998 RELEASE CARPAL TUNNEL Right 07/01/2023 Performed by Aidan Suazo DO at [facility] RELEASE TRIGGER FINGER Left 06/10/2023 Performed by Aidan Suazo DO at [facility] RELEASE TRIGGER FINGER Right 03/02/2019 Performed by Aidan Suazo DO at [facility] REPLACEMENT TOTAL JOINT HIP Right 06/05/2021 Performed by Aidan Suazo DO at [facility] TRIGGER FINGER RELEASE 11/2004 No Known Allergies [...] over the Bilateral SacroIliac Joint: Fabere sign (Jerson's Test) is significantly positive, as is compression [...] SHANNAN Morton 10/27/23 1215 documented in this encounterMadison [email or web address] [facility] [email or web address] Instructions* Patient Instructions* Afua Irwin CNA - [...] the nearest emergency room. documented in this encounterHolden [facility] Hospitalzealot network01-12-2024 Evaluation note* Encounter Date Diagnosis Assessment Notes Treatment Notes Treatment Clinical Notes Aug, Acute right-sided low back pain without sciatica (ICD-10 - M54.50) ROM exercises, heat/ice and Lidocaine patch. Voltaren Gel. XR thoracic/lumbar spine to r/o compression fx Doubt renal in etiology but may need to check UA and US 12 [place], 2024 Age-related osteoporosis without current pathological fracture (ICD-10 - M81.0) Continue Ca and Vit D supplements. Weight bearing exercises Aug, Primary hypertension (ICD-10 - I10) [facility] Other 01-12-2024 History general Narrative - Reported* [...] 06/2021 Hospitalization History See past surgical hx [facility] Other 01-05-2024 History general Narrative - Reported* [...] 06/2023 Hospitalization History See past surgical hx [facility] Other 12-01-2023 History general Narrative - Reported* [...] 06/2023 Hospitalization History See past surgical hx [facility] Other 11-30-2023 Evaluation note* Encounter Date Diagnosis [...] or drinking prior to bedtime. Weight loss. [employer] Other 11-13-2023 History of Present illness Narrative* Darryl Santillan MD - 06/15/2023 9:10 AM EST Subjective Atiya Jha is a 83 y.o. female Chief Complaint Annual Exam HPI Had STEMI in January Patient returns for follow-up of problems as noted. She is done well. In January she had an ST segmentelevation [place] and had immediate transport from home to the [facility] where she underwent emergent intervention and had [...] prompted by classic symptomatology. documented in this [facility] Work Phone: 1(339) 142-166611-13-2023 Instructions* Patient Instructions* Kaiden Bonilla MA - [...] time of your visit. [facility] Work Phone: 1(574) 920-806211-08-2023 History general Narrative - Reported* Type Description [...] 023 Hospitalization History See past surgical hx [facility] Other 10-15-2023 Evaluation note* Encounter Date Diagnosis Assessment Notes Treatment Notes Treatment Clinical Notes May, Elevated cholesterol (ICD-10 - E78.00) [employer] Other 10-15-2023 History general Narrative - Reported* [...] 01/2023 Hospitalization History See past surgical hx [facility] Other 10-13-2023 History general Narrative - Reported* [...] 01/2023 Hospitalization History See past surgical hx [facility] Other 10-12-2023 Evaluation note* Encounter Date Diagnosis Assessment Notes Treatment Notes Treatment Clinical Notes May, Elevated cholesterol (ICD-10 - E78.00) [employer] Other 10-12-2023 History general Narrative - Reported* Type Description Date Medical History HTN Medical History Hypercholesterolemia Medical History CKD stage 3a Medical History ASHD Medical History Abnormal weight loss (resolved ) Surgical History Heart Catheterization/Stents pl aced 11/1999 Surgical History Breast Reduction 1999 Surgical History Abdominoplasty 2001 Surgical History Trigger finger, left 2004 Surgical History Cataracts, bilateral 2010 Surgical History Left hip replacement 03/2011 Surgical History Eyelids lifted Surgical History PCI/stent LCX, PTCA distal LAD 01/2023 Hospitalization History See past surgical hx [facility] [employer] Other 10-10-2023 History general Narrative - Reported* Type Description Date Medical History HTN Medical History Hypercholesterolemia Medical History CKD stage 3a Medical History ASHD Medical History Abnormal weight loss (resolved ) Surgical History Heart Catheterization/Stents pl aced 11/1999 Surgical History Breast Reduction 1999 Surgical History Abdominoplasty 2001 Surgical History Trigger finger, left 2004 Surgical History Cataracts, bilateral 2010 Surgical History Left hip replacement 03/2011 Surgical History Eyelids lifted Surgical History PCI/stent LCX, PTCA distal LAD 01/2023 Hospitalization History See past surgical hx [facility] Other 08-21-2023 Evaluation note* Encounter Date Diagnosis Assessment Notes Treatment Notes Treatment Clinical Notes Mar, Primary hypertension (ICD-10 - I10) [facility] [employer] Other 08-14-2023 Evaluation note* Encounter Date Diagnosis [...] possible culprits but instructed not to stop. [facility] [employer] Other 07-28-2023 Evaluation note* Encounter Date Diagnosis [...] bleeding If dizziness recurs, would check H/H [facility] Other 07-06-2023 Evaluation note* Encounter Date Diagnosis Assessment Notes Treatment Notes Treatment Clinical Notes Jan, ASHD (arteriosclerotic heart disease) (ICD-10 - I25.10) Echo: LVEF 40-45%, RVSP 45, - 01/2022 LHC: LVEF 35% - 01/2022 [facility] Other 06-27-2023 Evaluation note* Encounter Date Diagnosis [...] now. No obvious bleeding at this time. [employer] Other 06-27-2023 History general Narrative - Reported* [...] 01/2023 Hospitalization History See past surgical hx [facility] Other 06-20-2023 History general Narrative - Reported* [...] 01/2023 Hospitalization History See past surgical hx [facility] [employer] Other 06-16-2023 Discharge summary Author Allan Townsend [facility] January 16, 2023 12:09pm Note Date/Time January 16, 2023 12:0 6pm [facility] [address] [place] [address] Discharge Summary Signed Patient: Atiya Jha MR#: [id number] : 1940 Acct:[id number] Age/Sex: 82 / F Adm Date: 3 Loc: 4P Room: 7S8802-[address]: Allan Townsend DO Copies to: [...] circumflex with 2.25 x 22 mm drug-eluting Mary Alice stent and balloon angioplasty of the distal [...] % (Auto) 54.3, Lymph % (Auto) 28.0, [place] % (Auto) 12.0, Eos % (Auto) 5.1, Baso % (Auto) 0.6, Nucleat RBC Rel Count 0.2, Neut # (Auto) 2.8, Lymph # (Auto) 1.4, [place] # (Auto) 0.6, Eos # (Auto) 0.3, [...] doctor or pharmacist, without first calling the forensic document examiner who implanted the stent. If you require [...] weight lifting, stair steppers, etc. until the forensic document examiner approves these activities. Check with the forensic document examiner on your first follow-up visit. CALL YOUR PHYSICIAN at [phone]: -If bleeding should occur from the catheter insertion site- apply pressure to the site then immediately call us. -Report any fever, redness, drainage, increased swelling, or firmness at the catheter insertion site. Some bruising or slight swelling may be present at thetime of discharge. -Should arm or leg become cold, numb, white, or blue, contact the forensic document examiner immediately. -IF you should experience episodes of [...] is recommended. Please call Central Scheduling at [phone] to schedule your appointment.] The attending forensic document examiner or [facility] nurse clinician should provide you with specific instructions regarding activity, diet, medications, and further follow up for you. Follow the medication instructions provided on your discharge. If the dosages and instructions on this sheet differ from the dosage and instructions on the bottle, follow the instructions on the bottle. [facility] is not responsible for incorrect prescription [...] signed by Allan Townsend DO> 01/16/23 1209 [facility] Work Phone: 1(875) 936-810406-15-2023 Progress note Author Allan Townsend [facility] January 15, 2023 3:40pm Note Date/Time January 15, 2023 3:40 pm [facility] [address] [place] [address] Cardiology Progress Note Signed Patient: Atiya Jha MR#: [id number] : 1940 Acct:[id number] Age/Sex: 82 / F Adm Date: 3 Loc: Room: [address] [place] [address] Type: ADM IN Attending Dr: Allan Townsend [...] stable she remains on appropriate GDMT post [place] at this time. Plan: We will continue [...] MPV Neut % (Auto) Lymph % (Auto) [place] % (Auto) Eos % (Auto) Baso % (Auto) Nucleat RBC Rel Count Neut # (Auto) Lymph # (Auto) [place] # (Auto) Eos # (Auto) Baso # (Auto) PHA Creatinine Clear Sodium Potassium Chloride Carbon Dioxide Anion Gap BUN Creatinine Est GFR (CKD-EPI) Glucose POC Glucose 112 Calcium Troponin I High Sens 25957.8 H* 01763.6 H* 01/14/23 01/15/23 01/15/23 22:13 03:54 03:54 Corrected WBC 6.9 Uncorrected WBC Count 6.9 RBC 3.65 Hgb 11.6 L Hct 33.2 L MCV 91.0 MCH 31.8 MCHC 34.9 RDW 13.7 Plt Count 160 MPV 7.8 Neut % (Auto) 68.3 Lymph % (Auto) 19.7 [place] % (Auto) 8.9 Eos % (Auto) 2.7 Baso % (Auto) 0.4 Nucleat RBC Rel Count 0.1 Neut # (Auto) 4.7 Lymph # (Auto) 1.4 [place] # (Auto) 0.6 Eos # (Auto) 0.2 Baso # (Auto) 0.0 PHA Creatinine Clear 53.75 Sodium 137 Potassium 3.8 Chloride 105 Carbon Dioxide 24.1 Anion Gap 11.7 BUN 14 Creatinine 0.80 Est GFR (CKD-EPI) > 60.0 Glucose 97 POC Glucose Calcium 8.6 Troponin I High Sens 76000.5 H* 01/15/23 01/15/23 03:54 08:42 Corrected WBC Uncorrected WBC Count RBC Hgb Hct MCV MCH MCHC RDW Plt Count MPV Neut % (Auto) Lymph % (Auto) [place] % (Auto) Eos % (Auto) Baso % (Auto) Nucleat RBC Rel Count Neut # (Auto) Lymph # (Auto) [place] # (Auto) Eos # (Auto) Baso # (Auto) PHA Creatinine Clear Sodium Potassium Chloride Carbon Dioxide Anion Gap BUN Creatinine Est GFR (CKD-EPI) Glucose POC Glucose 108 Calcium Troponin I High Sens 32714.5 H* A&P - Cardiology (1) ST elevation [...] <Electronically signed by Allan Townsend DO> 01/15/23 1545 [facility] Work Phone: 1(527) 539-475806-14-2023 Procedure noteTri[facility]06-14-2023 Procedure noteTri[facility]06-14-2023 Procedure noteTri[facility]06-14-2023 Procedure note [facility]06-14-2023 History and physical note Author Allan Townesnd [facility] January 14, 2023 10:41am Note Date/Time January 14, 2023 10:4 1am [facility] [address] [place] [address] Cardiology H&P Signed Patient: Atiya Jha MR#: [id number] : 1940 Acct:[id number] Age/Sex: 82 / F Adm Date: 3 Loc: Room: Type: [facility] Attending Dr: Allan Townsend DO Copies to: MD Allan Dorado DO~ Date of Service: 01/14/2023 Cardiology HPI History of Present Illness Chief complaint: Anterolateral STEMI HPI: Ms. Jha is a 82 year old female admitted through the emergency room in transfer from [facility] at 0905 with anterolateral STEMI. Symptoms began earlier this morning, patient was transported by squad, prearrival ECGs were reviewed by myself via telephonic communication and communication with ER attending. Patient arrived at [facility] at 0923, having received up stream antiplatelet [...] her family's report. Patient arrives to the [facility] hypertensive, in sinus rhythm without arrhythmias, ongoing chest discomfort, no evidence of cardiogenic shock Cath and intervention ensued without complications Total 60 minutes of nonprocedural critical care time were devoted to the ER staff, [facility] staff, nursing staff, patient and family both [...] x10E3/uL Lymph # (Auto) 2.1 (1.00-4.8) x10E3/uL [place] # (Auto) 0.5 (0.0-0.8) x10E3/uL Eos # [...] Interpretations EKG EKG results cardiology: sinus rhythm NJ, pacemaker, normal Myocardial infarction: anterior NJ (acute or recent) and lateral NJ (acute or recent) A&P - Cardiology (1) [...] signed by Allan Townsend DO> 01/14/23 1041 [facility] Work Phone: 1(877) 725-401706-14-2023 History and physical note Author Allan Townsend [facility] January 14, 2023 10:41am Note Date/Time January 14, 2023 10:4 1am [facility] [address] [place] [address] Cardiology H&P Signed Patient: Atiya Jha MR#: [id number] : 1940 Acct:[id number] Age/Sex: 82 / F Adm Date: 3 Loc: Room: Type: [facility] Attending Dr: Allan Townsend DO Copies to: MD Allan Dorado DO~ Date of Service: 01/14/2023 Cardiology HPI History of Present Illness Chief complaint: Anterolateral STEMI HPI: Ms. Jha is a 82 year old female admitted through the emergency room in transfer from [facility] at 0905 with anterolateral STEMI. Symptoms began earlier this morning, patient was transported by squad, prearrival ECGs were reviewed by myself via telephonic communication and communication with ER attending. Patient arrived at [facility] at 0923, having received up stream antiplatelet [...] her family's report. Patient arrives to the [facility] hypertensive, in sinus rhythm without arrhythmias, ongoing chest discomfort, no evidence of cardiogenic shock Cath and intervention ensued without complications Total 60 minutes of nonprocedural critical care time were devoted to the ER staff, District Sales [facility] staff, nursing staff, patient and family both [...] x10E3/uL Lymph # (Auto) 2.1 (1.00-4.8) x10E3/uL [place] # (Auto) 0.5 (0.0-0.8) x10E3/uL Eos # [...] Interpretations EKG EKG results cardiology: sinus rhythm NJ, pacemaker, normal Myocardial infarction: anterior NJ (acute or recent) and lateral NJ (acute or recent) A&P - Cardiology (1) [...] signed by Allan Townsend DO> 01/14/23 1041 [facility] Work Phone: 1(926) 148-500606-01-2023 Evaluation note* Encounter Date Diagnosis Assessment Notes Treatment Notes Treatment Clinical Notes Jan, Elevated cholesterol (ICD-10 - E78.00) [facility] [employer] Other 05-03-2023 Evaluation note* Encounter Date Diagnosis Assessment Notes Treatment Notes Treatment Clinical Notes December, Stage 3a chronic kidney disease (ICD-10 - N18.31) [facility] Other 02-15-2023 Evaluation note* Encounter Date Diagnosis [...] appetite, weight, abdominal pain/cramping or rectal bleeding. [employer] Other 02-14-2023 Evaluation note* Encounter Date Diagnosis Assessment Notes Treatment Notes Treatment Clinical Notes Sep, Elevated cholesterol (ICD-10 - E78.00) [employer] Other 02-25-2011 Nurse Note* 09/27/2010 12:00 PM EST >> KASSY ALVARADO LPN Fri Sep 27, 2010 2:49 [...] instructions REFERRAL (RECOMMENDATION): None Electronically Signed By Kassy Alvarado Lpn In Department: [facility] general Narrative - Reported* Type Description Date Medical History HTN Medical History Hypercholesterolemia Surgical History Heart Catheterization/Stents pl aced 11/1999 Surgical History Breast Reduction 1999 Surgical History Abdominoplasty 2001 Surgical History Trigger finger, left 2004 Surgical History Cataracts, bilateral 2010 Surgical History Left hip replacement 03/2011 Surgical History Eyelids lifted Hospitalization History See past surgical hx [facility] Other 04-01-2000 History general Narrative - Reported* [...] lifted Hospitalization History See past surgical hx [facility] Other 04-01-2000 History general Narrative - Reported* [...] 01/2023 Hospitalization History See past surgical hx [facility] Other 04-01-2000 History general Narrative - Reported* [...] 06/2023 Hospitalization History See past surgical hx [employer] Other Evaluation + Plan note No data available for this section [facility] Evaluation + Plan note Future Appointments Appointment Date:04/27/2024 10:30:00 AM Scheduled Provider:Jerson STREETER MD Location:[facility] Appointment Type:URO Office Visit [facility] Evgwkation noteNo InformationNort [employer] Other Evaluation note* Diagnosis Onset Date Resolution Status High cholesterol acute History of heart artery stent acute Hypertension acute ST elevation (STEMI) myocardial infarction [facility] Work Phone: Evaluation note* Diagnosis ASCVD (arteriosclerotic cardiovascular disease)- Primary Unspecified cardiovascular disease Essential hypertension Unspecified essential hypertension Mixed hyperlipidemia Congestive heart failure, NYHA class 2 and ACC/AHA stage C (CMS/HCC) History of PTCA Postsurgical percutaneous transluminal coronary angioplasty status documented in this encounter [facility] Work Phone: Evaluation note* Diagnosis Onset Date Resolution Status Anemia acute Fatigue acute Lumbar spondylosis acute Nausea acute Primary hypertension acute [facility] Work Phone: Evaluation note* Diagnosis Disorder of sacrum- Primary Disorders of sacrum documented [facility]* Diagnosis ASCVD (arteriosclerotic cardiovascular disease) Unspecified cardiovascular disease Chest tightness Other chest pain Shortness of breath documented in this encounter [facility] Work Phone: Evaluation note* Diagnosis ASCVD (arteriosclerotic cardiovascular disease) Unspecified cardiovascular disease Chest tightness Other chest pain Shortness of breath documented in this encounter [facility] Work Phone: Evaluation note* Diagnosis Onset Date Resolution Status Anemia acute ASHD (arteriosclerotic heart disease) acute Fatigue acute Lumbar spondylosis acute Nausea acute Primary hypertension acute [facility] Work Phone: evaluation note* Diagnosis Onset Date Resolution Status Anemia acute ASHD (arteriosclerotic heart disease) acute Lumbar spondylosis acute Primary hypertension acute ASHD (arteriosclerotic heart disease) acute Coronary artery disease acut e Hypertension acute Unstable angina acute [facility] Work Phone: Evaluation note* Diagnosis Dysuria- Primary Congestive heart failure, NYHA class 2 and ACC/AHA stage C (Multi) Weakness Other malaise and fatigue ASCVD (arteriosclerotic cardiovascular disease) Unspecified cardiovascular disease documented in this encounter [facility] Work Phone: evaluation note* Diagnosis Onset Date Resolution Status Anemia acute ASHD (arteriosclerotic heart disease) acute Lumbar spondylosis acute Primary hypertension acute Abnormal cardiovascular stress test acute ASHD (arteriosclerotic heart disease) acute Coronary artery disease acut e Hypertension acute Unstable angina acute [facility] Work Phone: Evaluation note* Diagnosis Onset Date Resolution Status Anemia acute ASHD (arteriosclerotic heart disease) acute Lumbar spondylosis acute Primary hypertension acute Abnormal cardiovascular stress test acute ASHD (arteriosclerotic heart disease) acute Coronary artery disease acut e Hypertension acute Unstable angina acute Acute on chronic heart failu re with preserved ejection fraction (HFpEF) acute ASHD (arteriosclerotic heart disease) acute Chronic venous insufficiency of lower extremity acute Lumbar spondylosis acute Primary hypertension acute [facility] Work Phone: Evaluation note* Diagnosis Essential hypertension- Primary Unspecified essential hypertension ASCVD (arteriosclerotic cardiovascular disease) Unspecified cardiovascular disease Mixed hyperlipidemia History of PTCA Postsurgical percutaneous transluminal coronary angioplasty status Never smoked cigarettes documented in this encounter [facility] Work Phone: Evaluation note* Diagnosis Onset Date Resolution Status Abnormal cardiovascular stress test acute ASHD (arteriosclerotic heart disease) acute Coronary artery disease acut e Hypertension acute Unstable angina acute ASHD (arteriosclerotic heart disease) acute Chronic venous insufficiency of lower extremity acute Lumbar spondylosis acute Primary hypertension acute [facility] Work Phone: Evaluation note* Diagnosis Onset Date Resolution Status ASHD (arteriosclerotic heart disease) acute Chronic venous insufficiency of lower extremity acute Lumbar spondylosis acute Primary hypertension acute [facility] Work Phone: evaluation note* Diagnosis Onset Date Resolution Status ASHD (arteriosclerotic heart disease) acute Chronic venous insufficiency of lower extremity acute Lumbar spondylosis acute Primary hypertension acute ASHD (arteriosclerotic heart disease) acute Chronic venous insufficiency of lower extremity acute Heart failure with improved ejection fraction (HFimpEF ) acute Lumbar spondylosis acute Primary hypertension acute [facility] Work Phone: Evaluation note* Diagnosis Onset Date Resolution Status ASHD (arteriosclerotic heart disease) acute Chronic venous insufficiency of lower extremity acute Heart failure with improved ejection fraction (HFimpEF ) acute Lumbar spondylosis acute Primary hypertension acute ASHD (arteriosclerotic heart disease) acute COVID acute [facility] Work Phone: Evaluation note* Diagnosis Disorder of sacrum- Primary Disorders of sacrum Disorder of sacrum- Primary Disorders of sacrum Disorder of sacrum Disorders of sacrum documented in [facility]* Diagnosis Chronic low back pain with right-sided sciatica, unspecified back pain laterality- Primary Lumbar spine pain Trigger point documented [facility] encounter [facility]* Diagnosis Chronic low back pain, unspecified back pain laterality, unspecified whether sciatica present documented in this encounter [facility] Healthcare[facility]* Diagnosis Pessary maintenance Fitting and adjustment of other device Cystocele with rectocele Urethral caruncle Vaginal atrophy Postmenopausal atrophic vaginitis 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 documented in this encounter [facility] Healthcare[facility]* Diagnosis Spondylolisthesis of lumbar region- Primary Lumbar spine pain Spondylolisthesis of lumbar region documented in this encounter [facility]* Diagnosis Onset Date Resolution Status ASHD (arteriosclerotic heart disease) acute Chronic venous insufficiency of lower extremity acute Heart failure with improved ejection fraction (HFimpEF ) acute Lumbar spondylosis acute Primary hypertension acute ASHD (arteriosclerotic heart disease) acute COVID acute Groin pain, chronic, right a cute H/O total hip arthroplasty a cute Lumbar spondylosis acute Primary osteoarthritis of right hip acute Sterile pyuria acute [facility] Work Phone: History of Present illness NarrativePatient [...] a modest diet and weight loss were advocated.-[facility] [address] DO Work Phone: Hospital Discharge instructions [...] doctor or pharmacist, without first calling the forensic document examiner who implanted the stent. If you require [...] weight lifting, stair steppers, etc. until the forensic document examiner approves these activities. Check with the forensic document examiner on your first follow-up visit. CALL YOUR PHYSICIAN at [phone]: -If bleeding should occur from the catheter insertion site- apply pressure to the site then immediately call us. -Report any fever, redness, drainage, increased swelling, or firmness at the catheter insertion site. Some bruising or slight swelling may be present at the time of discharge. -Should arm or leg become cold, numb, white, or blue, contact the forensic document examiner immediately. -IF you should experience episodes of [...] is recommended. Please call Central Scheduling at [phone] to schedule your appointment.] The attending forensic document examiner or [facility] nurse clinician should provide you with specific instructions regarding activity, diet, medications, and further follow up for you. Follow the medication instructions provided on your discharge. If the dosages and instructions on this sheet differ from the dosage and instructions on the bottle, follow the instructions on the bottle. [facility] is not responsible for incorrect prescription information provided by the patient during their visit. Do not stop your medications without consulting your health care provider. Please take the list with you to your next doctor's appointment.[facility] Work Phone: Hospital Discharge instructions Additional Instructions [...] doctor or pharmacist, without first calling the forensic document examiner who implanted the stent. If you require [...] weight lifting, stair steppers, etc. until the forensic document examiner approves these activities. Check with the forensic document examiner on your first follow-up visit. CALL YOUR PROTECTIVE SERVICES OFFICER: -If bleeding should occur from the catheter insertion site- apply pressure to the site then immediately call us. -Report any fever, redness, drainage, increased swelling, or firmness at the catheter insertion site. Some bruising or slight swelling may be present at the time of discharge. -Should arm or leg become cold, numb, white, or blue, contact the forensic document examiner immediately. -IF you should experience episodes of [...] if you have recurrent angina. The attending forensic document examiner or a nurse clinician should provide you with specific instructions regarding activity, diet, medications, and further follow up for you. Follow the medication instructions provided on your discharge. If the dosages and instructions on this sheet differ from the dosage and instructions on the bottle, follow the instructions on the bottle. [facility] is not responsible for incorrect prescription information provided by the patient during their visit. Do not stop your medications without consulting your health care provider. Please take the list with you to your next doctor's appointment.[facility] Work Phone: Hospital Discharge instructions Additional Instructions Follow up with your primary care doctor and Dr Townsend Return to the ED if you develop worsening symptoms or concerns[facility] Work Phone: Hospital Discharge instructions No data available for this section [facility] InstructionsNot on filedocumented in this encounter [facility] [employer] [facility] No data available for this section [facility] Reason for referral (narrative)* Consultation (Routine) - Authorized Specialty Diagnoses / Procedures Referred By Griffin gaytan Referred To Contact Cardiology Diagnoses ASCVD (arteriosclerotic cardiovascular disease) Procedures Follow Up In Cardiology Darryl Santillan MD [address] [place] [address], [address] [address] Darryl Santillan MD [address] [place] [id number] Referral ID Status Reason Start Date Expiration Date V isits Requested Visits Authorized [id number] Authorized 06/15/2023 06/14/2024 1 1 [facility] Work Phone: Reason for referral (narrative)* Consultation (Routine) - Authorized Specialty Diagnoses / Procedures Referred By Contac t Referred To Contact Cardiology Diagnoses ASCVD (arteriosclerotic cardiovascular disease) Procedures Follow Up In Cardiology Darryl Santillan MD [address] [place] [id number] Darryl Santillan MD [address] [place] [phone] Referral ID Status Reason Start Date Expiration Date V isits Requested Visits Authorized [id number] Authorized 01/12/2024 01/11/2025 1 1 [facility] Work Phone: Summary Purpose Family History Unknown Family Member Name Dates Details Family [...] failure Unknown Hypertension Unknown Not Specified Unknown Relationship Condition Age at Onset Recorded Date/T seble sister Myocardial infarction Unknown father Heart disease Unknown Myocardial infarction Unknown Unknown Congestive heart failure Unknown Hypertension Unknown mother Unknown Advance Directives Documents on File Type Date Recorded 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 Merchandiser Expl anation Living Will 06/05/2021 7:19 AM Date Activated Date Inactivated Comments 06/05/2021 12:15 PM 06/08/2021 6:27 PM Documents on File Type Date Recorded 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 Merchandiser Expl anation Advance Directive(s) Advance Directive Response Recorded Date/ Time Advance Directives No 2017 6:23pm Documents on File Type Date Recorded 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 Merchandiser Expl anation Living Will 06/05/2021 7:19 AM Latest Code Status on File Code Status Date Activated Date Inactivated Comments Full Code 06/05/2021 12:15 PM 06/08/2021 6:27 PM Latest Code Status on File Code Status Date Activated Date Inactivated Comments Full Code 06/05/2021 12:15 PM 06/08/2021 6:27 PM Chief Complaint ATIYA JAH is being seen for a 6 month [...] disease) Coronary artery disease Hypertension Unstable angina Chief Complaint Not Feeling Right Abnormal Stress Test History of PTCA AFCVD Abnormal Stress Test History of PTCA AFCVD chest pain Reason for Visit Anemia ASHD (arteriosclerotic heart disease) Lumbar spondylosis Primary hypertension Abnormal cardiovascular stress test ASHD (arteriosclerotic heart disease) Coronary artery disease Hypertension Unstable angina Chief Complaint Not Feeling Right Abnormal Stress Test History of PTCA AFCVD Abnormal Stress Test History of PTCA AFCVD chest pain swollen feet Reason for Visit Anemia ASHD (arteriosclerotic heart disease) Lumbar spondylosis Primary hypertension Abnormal cardiovascular stress test ASHD (arteriosclerotic heart disease) Coronary artery disease Hypertension Unstable angina Acute on chronic heart failure with preserved ejection fraction (HFpEF) ASHD (arteriosclerotic heart disease) Chronic venous insufficiency of lower extremity Lumbar spondylosis Primary hypertension Chief Complaint Not Feeling Right Abnormal Stress Test History of PTCA AFCVD Abnormal Stress Test History of PTCA AFCVD chest pain swollen feet i50.33 Reason for Visit Anemia ASHD (arteriosclerotic heart disease) Lumbar spondylosis Primary hypertension Abnormal cardiovascular stress test ASHD (arteriosclerotic heart disease) Coronary artery disease Hypertension Unstable angina Acute on chronic heart failure with preserved ejection fraction (HFpEF) ASHD (arteriosclerotic heart disease) Chronic venous insufficiency of lower extremity Lumbar spondylosis Primary hypertension Chief Complaint Abnormal Stress Test History of PTCA AFCVD Abnormal Stress Test History of PTCA AFCVD chest pain swollen feet i50.33 UA Reason for Visit Abnormal cardiovascu lar stress test ASHD (arteriosclerotic heart disease) Coronary artery disease Hypertension Unstable angina ASHD (arteriosclerotic heart disease) Chronic venous insufficiency of lower extremity Lumbar spondylosis Primary hypertension Chief Complaint chest pain swollen feet i50.33 UA Reason for Visit ASHD (arteriosclerot ic heart disease) Chronic venous insufficiency of lower extremity Lumbar spondylosis Primary hypertension Chief Complaint chest pain swollen feet i50.33 UA N39.43 N39.41 6 month follow up Reason for Visit ASHD (arteriosclerot ic heart disease) Chronic venous insufficiency of lower extremity Lumbar spondylosis Primary hypertension ASHD (arteriosclerotic heart disease) Chronic venous insufficiency of lower extremity Heart failure with improved ejection fraction (HFimpEF) Lumbar spondylosis Primary hypertension Chief Complaint UA N39.43 N39.41 6 month follow up COVID + [phone] Reason for Visit ASHD (arteriosclerot ic heart disease) Chronic venous insufficiency of lower extremity Heart failure with improved ejection fraction (HFimpEF) Lumbar spondylosis Primary hypertension ASHD (arteriosclerotic heart disease) COVID Chief Complaint UA N39.43 N39.41 6 month follow up COVID + [phone] right sided groin pain Reason for Visit ASHD (arteriosclerot ic heart disease) Chronic venous insufficiency of lower extremity Heart failure with improved ejection fraction (HFimpEF) Lumbar spondylosis Primary hypertension ASHD (arteriosclerotic heart disease) COVID Chief Complaint 6 month follow up COVID + [phone] right sided groin pain right arm pain following a fall Reason for Visit ASHD (arteriosclerot ic heart disease) Chronic venous insufficiency of lower extremity Heart failure with improved ejection fraction (HFimpEF) Lumbar spondylosis Primary hypertension ASHD (arteriosclerotic heart disease) COVID Groin pain, chronic, right H/O total hip arthroplasty Lumbar spondylosis Primary osteoarthritis of right hip Sterile pyuria Reason for Referral Specialty Diagnoses / Procedures Referred By Griffin gaytan Referred To Contact Radiology Diagnoses Lumbar spine pain Procedures MR lumbar spine wo contrast Aidan Suazo, [address] [facility] [address] [place] [address] [facility] [address] [facility] [address] [place] [address] Referral ID Status Reason Start Date Expiration Date V isits Requested Visits Authorized [id number] Pending Review 05/10/2024 11/06/2024 1 1 Specialty Diagnoses / Procedures Referred By Contact Referred To Contact Orthopaedic Surgery Diagnoses Trigger point Procedures Trigger Point Injection ([place] [address] [place] [address]): right gluteus willian Aidan Suazo, DO [address] [place] [address] [facility] [address] [place] [address] Referral ID Status Reason Start Date Expiration Date V isits Requested Visits Authorized [id number] Pending Review 05/10/2024 11/06/2024 1 1 Specialty Diagnoses / Procedures Referred By Contac t Referred To Contact Radiology Diagnoses ASCVD (arteriosclerotic cardiovascular disease) Chest tightness Shortness of breath Procedures Nuclear Stress Test CHG MYOCARDIAL SPECT MULTIPLE STUDIES Darryl Santillan MD [address] [facility] [place] [address] Referral ID Status Reason Start Date Expiration Date V isits Requested Visits Authorized [id number] Authorized 10/23/2023 10/22/2024 5 5 Specialty Diagnoses / Procedures Referred By Contac t Referred To Contact Diagnoses Disorder of sacrum Procedures Case request operating room: INJECTION BLOCK SACROILIAC JOINT Celina Liao PA [address] [place] [address] Referral ID Status Reason Start Date Expiration Date V isits Requested Visits Authorized [id number] Pending Review 10/27/2023 10/26/2024 1 1 Additional Source Comments INFORMATION SOURCE (unrecogn ized section and content) DATE CREATED AUTHOR 01/26/2018 [facility] DATE CREATED AUTHOR AUTHOR'S ORGANIZ ATION 06/05/2022 [employer] DATE CREATED AUTHOR AUTHOR'S ORGANIZ ATION 12/11/2022 [facility] DATE CREATED AUTHOR AUTHOR'S ORGANIZ ATION 03/13/2023 [facility] DATE CREATED AUTHOR AUTHOR'S ORGANIZ ATION 03/19/2023 [facility] DATE CREATED AUTHOR AUTHOR'S ORGANIZ ATION 11/15/2023 [facility] DATE CREATED AUTHOR AUTHOR'S ORGANIZ ATION 03/03/2024 [facility] DATE CREATED AUTHOR AUTHOR'S ORGANIZ ATION 03/04/2024 [facility] DATE CREATED AUTHOR AUTHOR'S ORGANIZ ATION 04/23/2024 Kunal Silverio [facility] DATE CREATED AUTHOR AUTHOR'S ORGANIZ ATION 05/08/2024 [facility] DATE CREATED AUTHOR AUTHOR'S ORGANIZ ATION 05/24/2024 [facility] DATE CREATED AUTHOR AUTHOR'S ORGANIZ ATION 05/26/2024 [facility] dical Specialists EPIC Source Comments (unrecognize d section and content) In the event this informatio n is protected by the Federal Confidentiality of Alcohol and Drug Abuse Patient Records regulations: The Federal rules restrict any use of the information to criminally investigate or prosecute any alcohol or drug abuse patient.[facility] Reason for Visit (unrecogniz ed section and content) Reason Comments Patient Education Reason Comments Annual Exam Reason Comments Back Pain Specialty Diagnoses / Procedures Referred By Contac t Referred To Contact Radiology Diagnoses ASCVD (arteriosclerotic cardiovascular disease) Chest tightness Shortness of breath Procedures Nuclear Stress Test CHG MYOCARDIAL SPECT MULTIPLE STUDIES Darryl Santillan MD [address] [facility] [address], [address] [address] Referral ID Status Reason Start Date Expiration Date V isits Requested Visits Authorized [id number] Authorized 10/23/2023 10/22/2024 5 5 Reason Comments Follow-up Sooner Office Visit Specialty Diagnoses / Procedures Referred By Contac t Referred To Contact Cardiology Diagnoses Congestive heart failure, NYHA class 2 and ACC/AHA stage C (Multi) Procedures Follow Up In Cardiology Sulma Busyb, LAST CODE STRIPER-DUMP TRUCK OPERATOR [address] [facility] [address], [address] [address] Sulma Busby APRN-DUMP TRUCK OPERATOR [address] [facility] [address], [address] [address] Referral ID Status Reason Start Date Expiration Date V isits Requested Visits Authorized [id number] Authorized 11/25/2023 11/24/2024 1 1 Reason Comments Follow-up 1 yr Specialty Diagnoses / Procedures Referred By Contac t Referred To Contact Cardiology Diagnoses ASCVD (arteriosclerotic cardiovascular disease) Procedures Follow Up In Cardiology Darryl Santillan MD [address] [place] [address] 2, [address] [address] Darryl Santillan MD [address] [place] [address] 2, [address] [address] Referral ID Status Reason Start Date Expiration Date V isits Requested Visits Authorized [id number] Authorized 06/15/2023 06/14/2024 1 1 Reason Onset Date Comments injection 05/02/2024 Reason Comments Follow-up Reason Onset Date Comments mri 05/17/2024 Reason Comments Gynecologic Exam Pessary follow up. N o complaints. Patient states that between pessary and medication she's happy and it has been working great. Reason Comments Pain Had xray done today having lots of lower back pain Care Teams (unrecognized sec tion and content) Team Status: Active Member Role Status Dates Porfirio Vu MD Primary Care Provider Active Team Status: Active Member Role Status Dates Chaitanya Luna DO Emergency Provider Active Porfirio Vu MD Primary Care Provider Active Allan Townsend DO Admit Provider, Attending Provide r Active Odalis Hager MD Other Provider Active Team Status: Active Member Role Status Dates Danis Barreto DO Primary Care Provider Active Team Status: Inactive Member Role Status Dates Chaitanya Luna DO Emergency Provider Active Allan Townsend DO Admit Provider, Attending Provide r Active Danis Barreto DO Primary Care Provider Active Odalis Hager MD Other Provider Active Family Practice Physician Assistant Relationship Specialty [place] [address] [place] [address] [place] [address] PCP - General 04/16/21 Team Status: Inactive Member Role Status Dates Danis Barreto DO Attending Provider Active Sta rt: August 14, 2023 End: August 14, 2023 Team Status: Inactive Member Role Status Dates Danis Barreto DO Primary Care Provide r, Attending Provider Active Start: October 20, 2023 End: October 20, 2023 Family Practice Physician Assistant Relationship Specialty Start Date End Date Danis Barreto DO [address] [place] [address] PCP - General Internal Medicine 05/10/21 Family Practice Physician Assistant Relationship Specialty Start Date End Date Danis Barreto DO [address] [place] [id number] PCP - General Internal Medicine 05/10/21 Family Practice Physician Assistant Relationship Specialty Start Date End Date Danis Barreto DO [address] [place] [address] PCP - General Internal Medicine 11/10/23 Family Practice Physician Assistant Relationship Specialty Start Date End Date Danis Barreto DO [address] [place] [address] PCP - General Internal Medicine 11/10/23 Family Practice Physician Assistant Relationship Specialty Start Date End Date Danis Barreto DO [address] [place], [place] [id number] PCP - General Internal Medicine 11/10/23 Family Practice Physician Assistant Relationship Specialty Start Date End Date Danis Barreto DO [address] [place] [address] PCP - General Internal Medicine 11/10/23 Family Practice Physician Assistant Relationship Specialty Start Date End Date Danis Barreto DO [address] [place] [address] PCP - General Internal Medicine 11/10/23 Family Practice Physician Assistant Relationship Specialty Start Date End Date Danis Barreto DO [facility] [address] [place] [address] PCP - General Internal Medicine 11/10/23 Family Practice Physician Assistant Relationship Specialty Start Date End Date Danis Barreto DO [address] [facility] [address] [place] [address] PCP - General Internal Medicine 11/10/23 Team [...] November 18, 2023 End: November 18, 2023 Family Practice Physician Assistant Relationship Specialty Start Date End Date Danis Barreto DO PCP - General Internal Medicine 11/10/23 Team Status: Inactive Member Role Status Dates Danis Barreto DO Primary Care Provider Active Start: November 18, 2023 End: November 19, 2023 Allan Townsend DO Attending Provider Active S tart: November 18, 2023 End: November 19, 2023 Team Status: Active Member Role Status Dates Danis Barreto DO Primary Care Provide r, Attending Provider Active Start: November 25, 2023 Team Status: Active Member Role Status Dates Danis Barreto DO Primary Care Provider Active Start: November 30, 2023 Sulma Busby APRN Attending Provider Active S tart: November 30, 2023 Team Status: Inactive Member Role Status Dates Danis Barreto DO Primary Care Provider Active Start: December 23, 2023 End: December 23, 2023 Alexei Stone DO Emergency Provider Active Sta rt: December 23, 2023 End: December 23, 2023 Team Status: Inactive Member Role Status Dates Danis Barreto DO Primary Care Provide r, Attending Provider Active Start: December 24, 2023 End: December 24, 2023 Team Status: Inactive Member Role Status Dates Danis Barreto DO Primary Care Provide r, Attending Provider Active Start: January 07, 2024 End: January 07, 2024 Family Practice Physician Assistant Relationship Specialty Start Date End Date Danis Barreto DO PCP - General Internal Medicine 11/10/23 Team Status: Inactive Member Role Status Dates Danis Barreto DO Primary Care Provide r, Attending Provider Active Start: January 29, 2024 End: January 29, 2024 Team Status: Inactive Member Role Status Dates Jordan Miguel DO Attending Provider Active Sta rt: February 24, 2024 End: February 24, 2024 Team Status: Inactive Member Role Status Dates Danis Barreto DO Primary Care Provide r, Attending Provider Active Start: March 02, 2024 End: March 02, 2024 Team Status: Active Member Role Status Dates Danis Barreto DO Primary Care Provider Active Start: April 07, 2024 Jerson Streeter MD Attending Provider Active St art: April 07, 2024 Team Status: Inactive Member Role Status Dates Danis Barreto DO Primary Care Provide r, Attending Provider Active Start: April 12, 2024 End: April 12, 2024 Team Status: Inactive Member Role Status Dates Danis Barreto DO Primary Care Provide r, Attending Provider Active Start: April 25, 2024 End: April 25, 2024 Family Practice Physician Assistant Relationship Specialty Start Date End Date Danis Barreto DO [address] [place] [address] PCP - General Internal Medicine 05/10/21 Family Practice Physician Assistant Relationship Specialty Start Date End Date Danis Barreto MD [address] [place] [phone] PCP - General Internal Medicine 12/15/22 Family Practice Physician Assistant Relationship Specialty [place] [address] [place] [phone] PCP - General Internal Medicine 12/15/22 Family Practice Physician Assistant Relationship Specialty Start Date End Date Danis Barreto MD [address] [facility] [place] [phone] PCP - General Internal Medicine 12/15/22 Family Practice Physician Assistant Relationship Specialty Start Date End Date Danis Barreto MD [address] [facility] [place] [phone] PCP - General Internal Medicine 12/15/22 Family Practice Physician Assistant Relationship Specialty Start Date End Date Danis Barreto MD [address] [facility] [place] [phone] PCP - General Internal Medicine 12/15/22 Family Practice Physician Assistant Relationship Specialty [place] [address] [place] [address], [place] [address] PCP - General Internal Medicine 05/10/21 Team Status: Inactive Member Role Status Gautam Barreto DO Primary Care Provide r, Attending Provider Active Start: May 27, 2024 End: May 27, 2024 Goals (unrecognized section and content) Goals may [...] BE BASED ON THE PRIMARY CLINICAL RECORDS. [facility] [employer] [facility]. provides no warranty or guarantee of the accuracy or completeness of information in this document.
== END 2024-05-27 15:06 | disposition home or self-care (01) ==
LOC: LAB 15:06
PROVIDERS: PCP Internal Medicine; Visit Provider Internal Medicine
DX: M79.601 Pain in right arm (principal)
CPT/HCPCS: 73090

== ENCOUNTER 2024-07-11 07:22 | Outpatient (OUT) | payer OTHER, SELFPAY ==
--- NOTE | 2024-07-11 | MM_ITS ---
Patient Name: MARY TEE MR#: [id number] : 1940 Exam Date: 07/11/2024 Ordering Doctor: DR Danis Huang D.O. RADIOLOGY REPORT PROCEDURE: MM TOMOSYNTHESIS SCREENING BI COMPARISON: MG MAMM SCREEN 3D GLADIS CAD, 05/21/2022. MG MAMM SCREEN GLADIS W CAD, 05/15/2017. MG MAMM GLADIS SCRN W CAD DIG, 05/14/2016. MG MAMM GLADIS SCRN W CAD DIG, 05/03/2013. INDICATIONS: Screening mammogram Calculator Name NCI Breast Cancer Risk Assessment Tool 5 Year Breast Cancer Risk 1.10% Lifetime Breast Cancer Risk 1.10% Personal Breast Cancer No Personal Ovarian Cancer No Treatments None Family Cancers None LOCATION: [facility] BREAST COMPOSITION: The breasts are heterogeneously dense,which may obscure small masses. FINDINGS: DIAGNOSTIC CATEGORY 2--BENIGN FINDING: RIGHT BREAST: No significant suspicious finding. Scattered benign-appearing calcifications are present. No significant change has occurred. LEFT BREAST: No significant suspicious finding. Scattered benign-appearing calcifications are present. No significant change has occurred. RECOMMENDATIONS: ROUTINE MAMMOGRAM AND CLINICAL EVALUATION IN 12 MONTHS. PLEASE NOTE: A NORMAL MAMMOGRAM DOES NOT EXCLUDE THE POSSIBILITY OF BREAST CANCER. A CLINICALLY SUSPICIOUS PALPABLE LUMP SHOULD BE BIOPSIED. Dictated by: Germán Travis M.D. on 07/11/2024 at 09:12 Approved by: Germán Travis M.D. on 07/11/2024 at 09:26
[2024-07-11 08:12] LABS: Basophils Percent Auto 0.6 % (0.2-2.0); Eosinophils Absolute Auto 0.2 10^3/uL (0.0-0.7); Eosinophils Percent Auto 3.5 % (0.9-7.0); Hematocrit 37.5 % (36.0-48.0); Hemoglobin 12.4 g/dL (12.0-16.0); Immature Granulocytes Abs Auto 0.01 10^3/uL (0.00-0.03); Immature Granulocytes Pct Auto 0.2 % (0.0-0.5); Lymphocytes Absolute Auto 1.4 10^3/uL (1.2-3.8); Lymphocytes Percent Auto 27.9 % (20.5-60.0); Mean Corpuscular HGB Conc 33.1 g/dL (29.9-35.2); Mean Corpuscular Hemoglobin 32.5 pg (26.7-34.0); Mean Corpuscular Volume 98.4 fL (81.0-99.0); Mean Platelet Volume 9.1 fL (9.5-13.5); Monocytes Absolute Auto 0.5 10^3/uL (0.3-0.8); Monocytes Percent Auto 10.3 % (1.7-12.0); Neutrophils Percent Auto 57.5 % (43.0-75.0); Platelet Count 202 10^3/uL (150-450); Red Blood Count 3.81 10^6/uL (4.20-5.40); Red Cell Distribution Width 13.2 % (11.0-15.0); White Blood Count 5.2 10^3/uL (4.0-11.0)
[2024-07-11 08:31] LABS: Alanine Aminotransferase 19 U/L (14-59); Albumin Globulin Ratio 1.2; Albumin Level 3.6 g/dL (3.4-5.0); Alkaline Phosphatase 54 U/L (46-116); Anion Gap 9.8; Aspartate Amino Transferase 19 U/L (15-37); BUN Creatinine Ratio 12.7; Bilirubin Total 0.9 mg/dL (0.2-1.0); Calcium 8.8 mg/dL (8.5-10.1); Carbon Dioxide 27.9 mmol/L (21.0-32.0); Chloride 107 mmol/L (98-107); Chol HDL Ratio 3.7; Cholesterol 167 mg/dL (<=200); Estimated GFR (African America >60 (>=60 mL/min/1.73m^2); Estimated GFR (Non-African Ame 52 (>=60 mL/min/1.73m^2); Globulin 2.9 g/dL; Glucose 89 mg/dL (74-106); HDL Cholesterol 45 mg/dL (40-60); LDL Cholesterol Calculated 99.6 mg/dL; Percent Iron Saturation 33.2 %; Potassium 3.7 mmol/L (3.5-5.1); Sodium 141 mmol/L (136-145); Total Protein 6.5 g/dL (6.4-8.2); Triglycerides 112 mg/dL (<=150); VLDL CHOLESTEROL 22.4 mg/dL
[2024-07-12 03:15] LABS: Vitamin B12 >2000 pg/mL (232-1245)
== END 2024-07-11 07:23 | disposition home or self-care (01) ==
LOC: MAMMO 07:23
PROVIDERS: PCP Internal Medicine; Visit Provider Internal Medicine
DX: Z12.31 Encounter for screening mammogram for malignant neoplasm of breast (principal); M81.0 Age-related osteoporosis without current pathological fracture; E78.00 Pure hypercholesterolemia, unspecified; D64.9 Anemia, unspecified; I87.2 Venous insufficiency (chronic) (peripheral); I50.32 Chronic diastolic (congestive) heart failure; I25.10 Atherosclerotic heart disease of native coronary artery without angina pectoris; I35.0 Nonrheumatic aortic (valve) stenosis; I11.0 Hypertensive heart disease with heart failure
CPT/HCPCS: 36415; 77063; 77067; 80053; 80061; 82607; 82728; 82746; 83540; 83550; 85025

== ENCOUNTER 2024-07-15 09:40 | Outpatient (OUT) | payer OTHER, SELFPAY ==
--- NOTE | 2024-07-15 09:46 | XR_ITS ---
The [address] [address] Patient Name: MARY TEE MRN: [id number] date: 1940 Sex: F Assigned Patient Location: [facility] Current Patient Location: [facility] Accession/Order Number: [id number] Exam Date: 07/15/2024 09:50 Report Date: 07/15/2024 15:30 At the request of: IVAN BARRETO Procedure: XR DEXA axial skeleton EXAMINATION: XR DEXA axial skeleton, 07/15/2024 9:50 AM EST HISTORY: Osteoporosis M81.0 COMPARISON: 2021, 2014, 2006. TECHNIQUE: Dual-energy X-ray absorptiometry (DEXA) bone density study performed for the axial skeleton. FINDINGS: Bone mineral density AP spine-L4 measures 1.617 g/sq cm. T score 3.6. Normal Lowest bone mineral density left forearm radius measuring 0.438 g/sq cm. T score -3.9. Osteoporosis XR/XR DEXA axial skeleton IMPRESSION: Osteoporosis. High fracture risk Pharmacologic treatment recommendations * No uniform recommendation applies to all patients. Management plans must be individualized. * Consider initiating pharmacologic treatment in postmenopausal women and men >= 50 years of age who have the following: Primary fracture prevention: * T-score <= - 2.5 at the femoral neck, total hip, lumbar spine, 33% radius (some uncertainty with existing data) by DXA. * Low bone mass (osteopenia: T-score between - 1.0 and - 2.5) at the femoral neck or total hip by DXA with a 10-year hip fracture risk >= 3% or a 10-year major osteoporosis-related fracture risk >= 20% (i.e., clinical vertebral, hip, forearm, or proximal humerus) based on the US-adapted FRAXregistered model. Secondary fracture prevention: * Fracture of the hip or vertebra regardless of BMD [4, 5]. * Fracture of proximal humerus, pelvis, or distal forearm in persons with low bone mass (osteopenia: T-score between - 1.0 and - 2.5). The decision to treat should be individualized in persons with a fracture of the proximal humerus, pelvis, or distal forearm who do not have osteopenia or low BMD [12, 13]. Jai HENDRICKSON, Ijeoma LEACH, Kyle KL, Erick EM, Ruthie KG, AJ, Heather ES. The clinician's guide to prevention and treatment of osteoporosis. Osteoporos Int. 2021;33(10):7279-7095. doi: 10.1007/d52679-822-98404-s. Epub 2021Nov 28. Erratum in: Osteoporos Int. 2021Feb 27;: PMID: 64047203; PMCID: [id number]. Electronically authenticated by: TED ARREDONDO Date: 07/15/2024 15:30
== END 2024-07-15 09:41 | disposition home or self-care (01) ==
LOC: RAD 09:40
PROVIDERS: PCP Internal Medicine; Visit Provider Internal Medicine
DX: M81.0 Age-related osteoporosis without current pathological fracture (principal)
CPT/HCPCS: 77080

== ENCOUNTER 2024-11-15 08:43 | Outpatient (OUT) | payer MEDICARE, SELFPAY ==
[2024-11-15 10:14] LABS: Basophils Percent Auto 0.3 % (0.2-2.0); Eosinophils Absolute Auto 0.2 10^3/uL (0.0-0.7); Eosinophils Percent Auto 3.2 % (0.9-7.0); Hematocrit 40.2 % (36.0-48.0); Hemoglobin 13.3 g/dL (12.0-16.0); Lymphocytes Absolute Auto 1.9 10^3/uL (1.2-3.8); Lymphocytes Percent Auto 32.5 % (20.5-60.0); Mean Corpuscular HGB Conc 33.1 g/dL (29.9-35.2); Mean Corpuscular Hemoglobin 31.7 pg (26.7-34.0); Mean Corpuscular Volume 95.7 fL (81.0-99.0); Mean Platelet Volume 9.7 fL (9.5-13.5); Monocytes Absolute Auto 0.6 10^3/uL (0.3-0.8); Monocytes Percent Auto 9.7 % (1.7-12.0); Neutrophils Absolute Auto 3.2 10^3/uL (1.4-6.5); Neutrophils Percent Auto 54.3 % (43.0-75.0); Platelet Count 183 10^3/uL (150-450); Red Cell Distribution Width 12.9 % (11.0-15.0); White Blood Count 5.9 10^3/uL (4.0-11.0)
--- NOTE | 2024-11-15 10:14 | P.GSHP_ITS ---
History of Present Illness History of Present Illness Chief complaint: uretheral polyp/prolapse Narrative: Patient presents for preadmission testing. The patient reports a history of urinary incontinence and frequency. She states she did have a pessary fitted and is feeling much much better. She has chronic low back pain. She denies dysuria, hematuria, or any other complaints. Review of Systems ROS Narrative REVIEW OF SYSTEMS: Negative except as stated in HPI, ten or more systems reviewed. Constitutional: No fever, chills, weakness ENT: No sore throat or epistaxis Cardiovascular: No edema, chest pain, or palpitations Respiratory: No shortness of breath, cough, or wheezing Musculoskeletal: No joint pain or swelling Gastrointestinal: No abdominal pain, constipation, diarrhea, or vomiting Genitourinary: No dysuria or hematuria Neurological: No numbness, tingling, weakness, or headache Psychiatric: No mood changes [facility] Medical History (Updated 11/15/24 @ 09:35 by Morena Wade NP) Vaginal pessary in situ (11/2024) ?Z96.0 - Presence of urogenital implants (ICD-10) Bursitis (~04/2024) ?M71.9 - Bursopathy, unspecified (ICD-10) COVID-19 (04/11/24) ?U07.1 - COVID-19 (ICD-10) Back pain ?M54.9 - Dorsalgia, unspecified (ICD-10) Osteoporosis ?M81.0 - Age-related osteoporosis without current pathological fracture (ICD- 10) Arthritis ?M19.90 - Unspecified osteoarthritis, unspecified site (ICD-10) Myocardial infarction (01/14/23) ?I21.9 - Acute myocardial infarction, unspecified (ICD-10) Encounter for pessary maintenance ?Z46.89 - Encounter for fitting and adjustment of other specified devices (ICD-10) Uterine prolapse ?N81.4 - Uterovaginal prolapse, unspecified (ICD-10) Urge incontinence ?N39.41 - Urge incontinence (ICD-10) Carbuncle of urethra ?N34.0 - Urethral abscess (ICD-10) Lichen simplex chronicus ?L28.0 - Lichen simplex chronicus (ICD-10) Hypervolemia ?E87.70 - Fluid overload, unspecified (ICD-10) Hypercholesterolemia ?E78.00 - Pure hypercholesterolemia, unspecified (ICD-10) UTI (urinary tract infection) ?N39.0 - Urinary tract infection, site not specified (ICD-10) Esophagitis ?K20.90 - Esophagitis, unspecified without bleeding (ICD-10) GERD (gastroesophageal reflux disease) ?K21.9 - Gastro-esophageal reflux disease without esophagitis (ICD-10) Cystocele with rectocele ?N81.10 - Cystocele, unspecified (ICD-10) ?N81.6 - Rectocele (ICD-10) Congestive heart failure ?I50.9 - Heart failure, unspecified (ICD-10) Anticoagulated ?Z79.01 - halfway (current) use of anticoagulants (ICD-10) Anemia ?D64.9 - Anemia, unspecified (ICD-10) Hyperlipidemia ?E78.5 - Hyperlipidemia, unspecified (ICD-10) Hypertension ?I10 - Essential (primary) hypertension (ICD-10) Arteriosclerotic cardiovascular disease ?I25.10 - Atherosclerotic heart disease of [place] coronary artery without angina pectoris (ICD-10) CAD (coronary artery disease) ?I25.10 - Atherosclerotic heart disease of [place] coronary artery without angina pectoris (ICD-10) Aortic valve stenosis ?I35.0 - Nonrheumatic aortic (valve) stenosis (ICD-10) Urethral prolapse ?N36.8 - Other specified disorders of urethra (ICD-10) Urethral polyp ?N36.2 - Urethral caruncle (ICD-10) Surgical History (Updated 04/07/24 @ 11:38 by Morena Wade NP) History of colonoscopy ?Z98.890 - Other specified postprocedural states (ICD-10) H/O hand surgery ?Z98.890 - Other specified postprocedural states (ICD-10) History of breast biopsy ?Z98.890 - Other specified postprocedural states (ICD-10) Hx of breast reduction, elective ?Z98.890 - Other specified postprocedural states (ICD-10) S/P cataract extraction and insertion of intraocular lens ?Z98.49 - Cataract extraction status, unspecified eye (ICD-10) ?Z96.1 - Presence of intraocular lens (ICD-10) S/P total hip arthroplasty ?Z96.649 - Presence of unspecified artificial hip joint (ICD-10) History of cardiac catheterization ?Z98.890 - Other specified postprocedural states (ICD-10) H/O blepharoplasty ?Z98.890 - Other specified postprocedural states (ICD-10) H/O abdominoplasty ?Z98.890 - Other specified postprocedural states (ICD-10) H/O cystoscopy ?Z98.890 - Other specified postprocedural states (ICD-10) Post PTCA (~11/2023) ?Z98.61 - Coronary angioplasty status (ICD-10) Family History (Updated 04/07/24 @ 11:38 by Morena Wade NP) Other Family history of heart disease Family history of hypertension Family history of myocardial infarction Family history of stroke Social History (Updated 04/07/24 @ 11:31 by Morena Wade NP) Within the past year, how often did you have a drink containing alcohol: monthly or less Smoking status: Never smoker Non-prescribed substance use: denies use Highest level of school completed/degree received: high school graduate Meds Home Medications and Allergies Home Medications ?Medication ?Instructions ?Recorded ?Confirmed ?Type alendronate 70 mg tablet 70 mg PO QWEEK 04/07/24 11/15/24 History aspirin 81 mg tablet,delayed 81 mg PO DAILY 04/07/24 11/15/24 History release (Adult Aspirin Regimen) atorvastatin 80 mg tablet 80 mg PO DAILY 04/07/24 11/15/24 History carvedilol 6.25 mg tablet 6.25 mg PO Q12H 04/07/24 11/15/24 History cholecalciferol (vitamin D3) 25 25 mcg PO DAILY 04/07/24 11/15/24 History mcg (1,000 unit) capsule docusate sodium 100 mg capsule 100 mg PO BID 04/07/24 11/15/24 History (Col-Rite) mirabegron 25 mg tablet,extended 25 mg PO Q24H 04/07/24 11/15/24 History release 24 hr (Myrbetriq) nitroglycerin 0.4 mg sublingual 0.4 mg sublingual Q5M 04/07/24 11/15/24 History tablet (Nitrostat) telmisartan 20 mg tablet 20 mg PO DAILY 04/07/24 11/15/24 History clopidogrel 75 mg tablet 75 mg PO DAILY 11/15/24 11/15/24 History pantoprazole 40 mg tablet,delayed 40 mg PO DAILY 11/15/24 11/15/24 History release Allergies Allergy/AdvReac Type Severity Reaction Status Date / Time No Known Drug Allergies Allergy Verified 11/15/24 09:19 Exam Narrative Exam Narrative: Constitutional: Awake, alert, comfortable, well-appearing, nontoxic, interactive, vital signs as charted Head: Normocephalic, atraumatic Neck: Supple, normal appearance, normal range of motion, no meningeal signs, no lymphadenopathy Respiratory: No respiratory distress, breath sounds clear Cardiovascular: Regular rate and rhythm, strong and regular heart tones Abdomen: Nontender, normal bowel sounds, soft, no CVA tenderness Musculoskeletal: Antalgic gait, no swelling or edema Skin: No rashes or induration, no lesions, only visible skin inspected Neuro: No neurological deficits, normal sensation Psychiatric: Oriented ?3, normal affect Assessment and Plan Assessment and Plan (1) Urethral polyp: (2) Urethral prolapse: (3) Vaginal pessary in situ: Onset Date: 11/2024 Plan Cystoscopy, excision of urethral polyp/prolapse scheduled with Dr. Cantor November 29, 2024.
[2024-11-15 10:21] LABS: Partial Thromboplastin Time 26.7 sec (22.3-36.2); Prothrombin Time 10.6 sec (9.0-11.6)
[2024-11-15 10:43] LABS: Anion Gap 13.8; BUN Creatinine Ratio 17.4; Calcium 10.3 mg/dL (8.5-10.1); Carbon Dioxide 29.3 mmol/L (21.0-32.0); Chloride 100 mmol/L (98-107); Estimated GFR (African America 54 (>=60 mL/min/1.73m^2); Estimated GFR (Non-African Ame 45 (>=60 mL/min/1.73m^2); Glucose 105 mg/dL (74-106); Potassium 4.1 mmol/L (3.5-5.1); Sodium 139 mmol/L (136-145)
== END 2024-11-15 08:44 | disposition home or self-care (01) ==
LOC: PST 08:44
PROVIDERS: PCP Internal Medicine; Visit Provider Urology
DX: Z01.812 Encounter for preprocedural laboratory examination (principal); Z01.818 Encounter for other preprocedural examination; N36.2 Urethral caruncle; I35.0 Nonrheumatic aortic (valve) stenosis; K21.9 Gastro-esophageal reflux disease without esophagitis
CPT/HCPCS: 36415; 80048; 85025; 85610; 85730; G0463

== ENCOUNTER 2024-11-15 08:49 | Outpatient (OUT) | payer MEDICARE, SELFPAY ==
[2024-11-15 10:54] LABS: Alanine Aminotransferase 23 U/L (14-59); Aspartate Amino Transferase 22 U/L (15-37); Chol HDL Ratio 3.7; Cholesterol 169 mg/dL (<=200); HDL Cholesterol 46 mg/dL (40-60); LDL Cholesterol Calculated 93.8 mg/dL; Triglycerides 146 mg/dL (<=150); VLDL CHOLESTEROL 29.2 mg/dL
== END 2024-11-15 08:50 | disposition home or self-care (01) ==
LOC: LAB 08:50
PROVIDERS: PCP Internal Medicine; Visit Provider Internal Medicine Cardiovascular Disease
DX: Z01.812 Encounter for preprocedural laboratory examination (principal); Z01.818 Encounter for other preprocedural examination; N36.2 Urethral caruncle; I35.0 Nonrheumatic aortic (valve) stenosis; K21.9 Gastro-esophageal reflux disease without esophagitis; E78.2 Mixed hyperlipidemia; I25.10 Atherosclerotic heart disease of native coronary artery without angina pectoris; I50.9 Heart failure, unspecified
CPT/HCPCS: 36415; 80048; 80061; 84450; 84460; 85025; 85610; 85730; G0463

== ENCOUNTER 2025-01-23 07:26 | Outpatient (RCR) | payer MEDICARE, SELFPAY ==
--- NOTE | 2024-12-15 | CR1_ITS ---
The [facility] Test Date: 2024-12-15 Pat Name: MARY TEE Department: Room: - Gender: Female Bdc Manager: : 1940 Requested By: Jovani Alejandra Order Number: [id number] Reading MD: Jovani Alejandra Interpretive Statements Okay to proceed with outlined treatment plan. Electronically Signed On 12-15-2024 14:47:39 EDT by Jovani Alejandra
--- NOTE | 2024-12-19 14:00 | CR1_ITS ---
The [facility] Test Date: 2024-12-19 Pat Name: MARY TEE Department: Room: - Gender: Female Sql Manager: : 1940 Requested By: Jovani Alejandra Order Number: [id number] Reading MD: Jovani Alejandra Interpretive Statements Okay to proceed with outlined treatment plan. Electronically Signed On 12-19-2024 17:25:28 EDT by Jovani Alejandra
--- NOTE | 2025-01-13 07:45 | CR1_ITS ---
The [facility] Test Date: 2025-01-13 Pat Name: MARY TEE Department: Room: - Gender: Female Data Scientist: : 1940 Requested By: IVAN BARRETO Order Number: [id number] Greg MD: Jovani Alejandra Interpretive Statements Okay to continue with outlined treatment plan. Electronically Signed On 01-16-2025 18:33:10 EDT by Jovani Alejandra
--- NOTE | 2025-02-06 07:26 | CR1_ITS ---
[facility] Test Date: 2025-02-06 Pat Name: MARY TEE Department: Room: - Gender: Female Bowl Topper: : 1940 Requested By: Jovani Alejandra Order Number: [id number] Reading MD: Jovani Alejandra Interpretive Statements Though it can be difficult to attend rehab due to caregiver duties, taking care of oneself is important. The patient is encouraged to continue participating in cardiac rehabilitation, especially as it is only several hours. Electronically Signed On 02-08-2025 10:16:15 EDT by Jovani Alejandra
--- NOTE | 2025-02-06 10:14 | PC.NURSE ---
called to outreach patient who was taking a break due to the increased needs of . She states she has recently had a bad fall and is following up with her provider. We will follow up in a few weeks if we do not hear from her regarding resuming care
--- NOTE | 2025-03-08 09:52 | PC.NURSE ---
called to outreach patient. no answer and no voicemail available. letter sent to outreach patient.
== END 2025-03-23 13:16 | disposition home or self-care (01) ==
LOC: CR 07:26
PROVIDERS: PCP Internal Medicine; Visit Provider Internal Medicine Cardiovascular Disease
DX: I25.10 Atherosclerotic heart disease of native coronary artery without angina pectoris (principal); I21.4 Non-ST elevation (NSTEMI) myocardial infarction
CPT/HCPCS: 93798

== ENCOUNTER 2025-02-13 11:58 | Outpatient (OUT) | payer MEDICARE, SELFPAY ==
--- OUTSIDE RECORDS SUMMARY | 2025-01-30 13:00 | XMS_ITS | Encounter Summary ---
Author Organization [facility] Address [address] [facility] [place] [address] Care Team Providers Care Doughnut Icer Name Role Phone SalDanis She BRUSH Primary Care Provider Reason for Visit * Reason Comments Toenail Care Established patient presents today with her for routine nail care. Encounter Details Date Type Department Care Team (Latest Contact Info) Description 01/30/2025 1:00 PM EDT Procedure Visit [facility] [address] [place] [id number] Germán Weir, DPM [address] [place], [place] [id number] Dermatophytosis of nail (Primary Dx); Dystrophic nail; Pain around toenail, right foot; Pain around toenail, left foot Social History Tobacco Use Types Packs/Day Years Used Date Smoking Tobacco: Never Smokeless Tobacco: Never Tobacco Cessation:Counseling Given: Not Answered Alcohol Use Standard Drinks/Week Comments Yes 0 (1 standard drink = 0.6 oz pure alcohol) 1-2 drinks less than monthly in the past year, Caffeine intake: 1-2 cups per day AUDIT-C Answer Date Recorded Q1: How often do you have a drink containing alc ohol? Monthly or less 12/30/2023 Q2: How many drinks containi ng alcohol do you have on a typical day when you are drinking? 1 or 2 12/30/2023 Q3: How often do you have si x or more drinks on one occasion? Less than monthly 12/30/2023 PHQ-2 Answer Date Recorded Patient Health Questionnaire-2 Score 0 02/11/2024 Comments No Sex and Gender Information Value Date Recorded Sex Assigned at Not on file Legal Sex Female 7:28 PM EDT Gender Identity Not on file Sexual Orientation Not on file documented as of this encounter Last Filed Vital Signs Vital Sign Reading Time Taken Comments Blood Pressure - - Pulse - - Temperature - - Respiratory Rate - - Oxygen Saturation - - Inhaled Oxygen Concentration - - Weight 64.9 kg (143 lb) 01/30/2025 12:51 PM EDT Height 165.1 cm (5' 5 ) 01/30/2025 12:51 PM EDT Body Mass Index 23.8 01/30/2025 12:51 PM EDT documented in this encounter Patient Instructions * Patient Instructions* Germán Weir DPM - 01/30/2025 1:00 PM EDT As noted documented in this encounter Progress Notes * Germán Weir DPM - 01/30/2025 1:00 PM EDT Images from the original note were not included. Subjective Patient ID: Atiya Jah is a 84 y.o. female who presents for Toenail Care (Established patient presents today with her for routine nail care. ). HPI HPI Onychomycosis/Toenail Fungus: presents today requesting nail care. Symptomatic toenail deformity Location: patient indicates that multiple digits are problematic/symptomatic; great toes typically remain worse; toenail deformity and discoloration. Duration: Insidious, fairly chronic stable condition. Severity of symptoms: mild, impacting her ability to walk comfortably. Onset: gradual, without injury or trauma. Status: Problematic/symptomatic over the past several weeks, impacting her ability to walk comfortably. Context: hard to trim , hard to reach; self-care is difficult and not practical; increasing risk exposure. Family members unable to provide effective care. Characteristics: elongated, discolored, thickened, pain , pressure, ingrowing; without bleeding or drainage. Relieved by: Palliative care measures provide effective transient symptom relief. Previous Treatment: palliative care measures as noted Status post marginal matricectomy bilateral great toes. Risk factors: medical comorbidities. ASA therapy. Mobility, flexibility and dexterity restraints. toenail deformity. Shoe trauma and related complications. Aggravated by: shoe gear , pressure, walking; catching and snagging on clothing, bed sheets etc.. Medications Current Outpatient Medications: ??? aspirin 81 MG EC tablet, Take 81 mg by mouth Daily, Disp: , Rfl: ??? atorvastatin (Lipitor) 80 MG tablet, Take 80 mg by mouth Daily, Disp: , Rfl: ??? Calcium Carbonate-Vitamin D (Oyster Shell Calcium/D) 500-5 MG-MCG tablet, Take 1 tablet by mouth in the morning., Disp: , Rfl: ??? carvedilol (Coreg) 6.25 MG tablet, Take by mouth in the morning and in the evening. Take with meals., Disp: , Rfl: ??? clopidogrel (Plavix) 75 MG tablet, Take 75 mg by mouth in the morning., Disp: , Rfl: ??? docusate sodium (Colace) 50 MG capsule, Take 50 mg by mouth in the morning and 50 mg before bedtime., Disp: , Rfl: ??? estradiol (Estrace) 0.1 MG/GM vaginal cream, 1 gram at bedtime for 2 weeks then twice weekly, Disp: 42 g, Rfl: 3 ??? hydroCHLOROthiazide (HYDRODiuril) 25 MG tablet, Take 25 mg by mouth every other day, Disp: , Rfl: ??? losartan (Cozaar) 25 MG tablet, Take 25 mg by mouth Daily, Disp: , Rfl: ??? mirabegron ER (Myrbetriq) 25 MG 24 hr tablet, Take 1 tablet (25 mg) by mouth at bedtime Do not crush, chew, or split., Disp: 90 tablet, Rfl: 3 ??? nitroglycerin (Nitrostat) 0.4 MG SL tablet, Place 0.4 mg under the tongue every 5 (five) minutes if needed for chest pain, Disp: , Rfl: ??? pantoprazole (ProtoNix) 40 MG EC tablet, Take 40 mg by mouth in the morning. Take before meals., Disp: , Rfl: ??? ranolazine (Ranexa) 500 MG 12 hr tablet, TAKE 1 TABLET BY MOUTH TWICE DAILY DO NOT CRUSH, CHEW,OR SPLIT, Disp: , Rfl: ??? alendronate (Fosamax) 70 MG tablet, Take 1 tablet (70 mg) by mouth every 7 (seven) days Take inthe morning with a full glass of water, on an empty stomach, and do not take anything else by mouthor lie down for the next 30 min., Disp: 4 tablet, Rfl: 11 Allergies Patient has no known allergies. Past Surgical History Past Surgical History: Procedure Laterality Date ??? AMB EPIDURAL STEROID INJECTION 12/2017 L4-L5 ??? BELT ABDOMINOPLASTY 2001 ??? CARDIAC CATHETERIZATION 2003 ??? COLONOSCOPY 2009 nl /Grillis ??? COLONOSCOPY 02/2020 few diverticula /Grillis ??? CORONARY ANGIOPLASTY WITH STENT PLACEMENT ??? CORONARY ANGIOPLASTY WITH STENT PLACEMENT 11/2023 ??? HIP ARTHROPLASTY Left ??? HIP ARTHROPLASTY Right ??? IR STENT PLACEMENT 1999 Stent Placement- Circ ??? LUMBAR EPIDURAL INJECTION 07/2019 Pain Management ??? MOHS SURGERY 1998 ??? OTHER SURGICAL HISTORY TSAR- Edwards ??? OTHER SURGICAL HISTORY 11/2017 Right SI joint injectiin/Felter ??? OTHER SURGICAL HISTORY 06/2018 Aortigram no hemodynamically significant stenosis ??? OTHER SURGICAL HISTORY 07/2019 Bilateral ischeal bursa injection ??? OTHER SURGICAL HISTORY 01/02/2020 Bursitis Injection ??? OTHER SURGICAL HISTORY 05/2020 bilateral ischeal bursa injection/Aragon ??? OTHER SURGICAL HISTORY 07/2020 right intrarticular hip injection/Aragon ??? OTHER SURGICAL HISTORY 11/2020 right intrarticular hip injection ??? KS BREAST REDUCTION 1999 ??? TRIGGER FINGER RELEASE 03/02/2019 RT IF, MF, RF trigger release Dr Suazo ??? TRIGGER FINGER RELEASE Left 06/10/2023 MF, Dr Suazo Family History Family History Problem Relation Name Age of Onset ??? Heart disease Mother ??? Stroke Mother ??? Hypertension Mother ??? Heart disease Father ??? Heart disease Sister ??? Kidney disease Brother Objective General Examination: GENERAL EXAMINATION: Alert and oriented. Pleasant disposition. Her spouse, Joey is present. Vascular: DORSALIS PEDIS PULSE: bilaterally, 2/4. POSTERIOR TIBIAL PULSE: bilaterally, 2/4. TEMPERATURE GRADIENT: warm to warm. EDEMA: Unremarkable for ankle edema. CAPILLARY FILLING TIME(sec): capillary fill intact bilateral digits less than 3 secs. Neurologic: MUSCLE POWER: No focal deficits. SHARP SENSATION: Tactile and soft touch sensation intact. Dermatologic: SKIN FINDINGS: Intact, skin turgor is good. HYPERTROPHIC LESION: No forefoot or digital keratotic pressure lesions are noted. NAIL PATHOLOGY: Bilateral great toes: Toenail dystrophy, elongation, thickening, discoloration, crumbly texture and periungual hyperkeratosis, without drainage. All remaining digits: Varying degrees of toenail dystrophy, thickening, elongation, discoloration, brittleness, crumbly texture, subtotal detachment, periungual hyperkeratotic debris, without drainage. INTERDIGITAL MACERATION: Clean, non-inflamed and dry. ULCER: no sign of ulceration or open wound . SKIN PATHOLOGY: texture, turgor, hair growth, within normal limits. Ankle / Foot: RANGE OF MOTION: Functional passive range of motion without pain . Radiology: Assessment/Plan 1. Symptomatic onychodystrophy/mycosis multiple digits. 2. Right hip endoprosthesis (June 2021). Plan: Notes: conservative and palliative care measures are preferred, understood and again indicated; expressing no interest in oral therapy. May continue use of vinegar and/or Listerine as recommended; advised as to limited efficacy. Hygiene and skin care measures discussed. Procedure: Toenail Debridement: Aseptic technique: power/manual instrumentation: onychodebridement length and thickness, curretage of offending crypotic margins, rosa-ungual debris, providing effective pressure and symptom relief, reducing shoe and digital trauma. This note was created with the assistance of a speech recognition program. While intending to generate a timely document that accurately reflects the content of the visit, no guarantee can be provided that every grammatical or spelling mistake has been or will be identified or corrected. Thank you for your understanding. Germán Weir DPM documented in this encounter Plan of Treatment Upcoming Encounters Date Type Department Care Team (Late st Contact Info) Description 05/08/2025 1:00 PM EDT Procedure Visit [facility] [address] [place] [address] Germán Weir DPM [address] [place], [place] [id number] 05/09/2025 11:00 AM EDT Office Visit [facility] [address] [place] [address] Nikolai Muñoz PA [address] [place] [address] 05/29/2025 1:30 PM EDT Office Visit [facility] [address] [place] [phone] Dennis Miguel, [address] [place] [address] 05/31/2025 9:30 AM EDT Office Visit [facility] [address] [place] [address] Nikolai Muñoz PA [address] [place] [address] 06/07/2025 11:00 AM EST Clinical Support [facility] [address] [place] [address] Lisa Zamorano, [facility] [address] [place] [address] documented as of this encounter Visit Diagnoses Diagnosis Dermatophytosis of nail- Primary Dystrophic nail Other specified disease of nail Pain around toenail, right foot Pain around toenail, left foot documented in this encounter Care Teams Doughnut Icer Relationship Specialty Start Date End Date Danis Huang DO [address] [place] [phone] PCP - General Internal Medicine 12/15/22 documented as of this encounter
--- OUTSIDE RECORDS SUMMARY | 2025-02-13 12:07 | XMS_ITS | Encounter Summary ---
Author Organization [facility] Address [address] [place] [address] Phone Care Team Providers Care It Assistant Name Role Phone Danis Huang DO Primary Care Provider [phone] Danis Huang DO Primary Care Provider [phone] Xochitl Knox RN Unavailable Unavailable Encounter Details Date Type Department Care Team (Late st Contact Info) Description 11/16/2023 Scanned Document [facility] [address] [place] [address] Scanning, Generic Provider Social History Tobacco Use Types Packs/Day Years Used Date Smoking Tobacco: Never Smokeless Tobacco: Never Alcohol Use Standard Drinks/Week Comments Never 0 (1 standard drink = 0.6 oz pur e alcohol) Comments Unknown Sex and Gender Information Value Date Recorded Sex Assigned at Not on file Legal Sex Female 1:24 PM EST Gender Identity Not on file Sexual Orientation Not on file COVID-19 Exposure Response Date Recorded In the last 10 days, have yo u been in contact with someone who was confirmed or suspected to have Coronavirus/COVID-19? No / Unsure 11/10/2023 7:46 AM EDT documented as of this encounter Plan of Treatment Upcoming Encounters Date Type Department Care Team (Late st Contact Info) Description 04/07/2025 10:30 AM EDT Office Visit [facility] [address] [address] Xiomara Au MD [address] [facility] [address] [place] [address] documented as of this encounter Visit Diagnoses Not on filedocumented in this encounter Additional Health Concerns Assessment Noted Time A fall risk assessment has been complete d for the patient 06/15/2023 9:11 AM EST documented as of this encounter Care Teams It Assistant Relationship Specialty Start Date End Date Danis Huang DO PCP - General Internal Medicine 11/10/23 11/28/24 Danis Huang DO [address] [place] [address] PCP - General Internal Medicine 11/29/24 Xochitl Knox RN Care Wood Milling Machine Hand 12/05/24 01/11/25 documented as of this encounter
--- OUTSIDE RECORDS SUMMARY | 2025-02-13 12:07 | XMS_ITS | Encounter Summary ---
Author Organization [facility] Address [id number] [address] [place] [address] Care Team Providers Care Tamale Machine Feeder Name Role Phone Danis Huang DO Primary Care Provider [phone] Encounter Details Date Type Department Care Team (Late st Contact Info) Description 05/23/2024 Orders Only [facility] [address] [place] [address] Ref Prov, [place] [address] Social History Tobacco Use Types Packs/Day Years Used Date Smoking Tobacco: Never Smokeless Tobacco: Never Alcohol Use Standard Drinks/Week Comments Yes 0 (1 standard drink = 0.6 oz pur e alcohol) social Childcare Answer Date Recorded Childcare Unknown 01/04/2019 Employment Answer Date Recorded Employment Unknown 01/04/2019 Hunger Screening Answer Date Recorded Within the past 12 months we worried whether our food would run out before we got money to buy more. Never True 05/03/2024 Within the past 12 months th e food we bought just didn't last and we didn't have money to get more. Never True 05/03/2024 Purpose - Life Answer Date Recorded Purpose and direction in life Unknown Comments No Sex and Gender Information Value Date Recorded Sex Assigned at Not on file Legal Sex Female 11:40 AM EDT Gender Identity Not on file Sexual Orientation Not on file documented as of this encounter Plan of Treatment Not on file documented as of this encounter Goals Goal Patient Goal Type Associated Problems Recent Progress Patient-Stated? Author Home General Yes Nivia Bertrand, BE Note: Evaluation of progress towards goal: Home with [facility]. documented as of this encounter Procedures Procedure Name Priority Date/Time Associated Diagnosis Comments MR CERVICAL SPINE WO CONT Routine 05/23/2024 4:13 PM EDT documented in this encounter Results * MR cervical spine without contrast (05/23/2024 4:13 PM EDT) Anatomical Region Laterality Modality MSK, Neuro, Spine, C-spine, Spine Covera N/A Magnetic Resonance us Not In System Ref Prov IMG MRI ORDERABLES Final Result documented in this encounter Visit Diagnoses Not on filedocumented in this encounter Care Teams Tamale Machine Feeder Relationship Specialty Start Date End Date Danis Huang DO [address] [place] [id number] PCP - General Internal Medicine 05/10/21 documented as of this encounter
--- OUTSIDE RECORDS SUMMARY | 2025-02-13 12:07 | XMS_ITS | Encounter Summary ---
Author Organization [facility] Address [address] [facility] [place] [address] Care Team Providers Care Aircraft Shipping Checker Name Role Phone Danis Huang Primary Care Provider [phone] Encounter Details Date Type Department Care Team (Late st Contact Info) Description 05/13/2023 Abstract [facility] [address] [address] Germán Weir DPM [address] [place], [place] [phone] Social History Tobacco Use Types Packs/Day Years Used Date Smoking Tobacco: Never Smokeless Tobacco: Never Tobacco Cessation:Counseling Given: Not Answered Alcohol Use Standard Drinks/Week Comments Yes 0 (1 standard drink = 0.6 oz pure alcohol) 1-2 drinks less than monthly in the past year, Caffeine intake: 1-2 cups per day Comments No Sex and Gender Information Value Date Recorded Sex Assigned at Not on file Legal Sex Female 7:28 PM EDT Gender Identity Not on file Sexual Orientation Not on file documented as of this encounter Plan of Treatment Upcoming Encounters Date Type Department Care Team (Late st Contact Info) Description 05/08/2025 1:00 PM EDT Procedure Visit [facility] [address] [place] [address] Germán Weir DPM [address] [place], [place] [address] 05/09/2025 11:00 AM EDT Office Visit [facility] [address] [place] [address] Nikolai Muñoz PA [address] [place] [address] 05/29/2025 1:30 PM EDT Office Visit [facility] [address] [place] [address] Dennis Miguel DO [address] [place] [address] 05/31/2025 9:30 AM EDT Office Visit [facility] [address] [place] [address] Nikolai Muñoz PA [address] [facility] [place] [address] 06/07/2025 11:00 AM EST Clinical Support [facility] [address] [place] [address] Lisa Zamorano, [facility] [address] [place] [place] [address] documented as of this encounter Visit Diagnoses Not on filedocumented in this encounter Care Teams Aircraft Shipping Checker Relationship Specialty Start Date End Date Danis Huang DO [address] [place] [phone] PCP - General Internal Medicine 12/15/22 documented as of this encounter
--- OUTSIDE RECORDS SUMMARY | 2025-02-13 12:07 | XMS_ITS | Encounter Summary ---
Author Organization [facility] Address [id number] [address] [place] [address] Care Team Providers Care Newspaper Columnist Name Role Phone Danis Huang DO Primary Care Provider [phone] Encounter Details Date Type Department Care Team (Late st Contact Info) Description 05/18/2024 Orders Only [facility] [address] [place] [phone] Transcribe, Orders Support User Pain (Primary Dx) Social History Tobacco Use Types Packs/Day Years [...] Recent Progress Patient-Stated? Author Home General Yes Nviia Bertrand LSW Note: Evaluation of progress towards goal: Home with [facility]. documented as of this encounter Results * MR lumbar spine without contrast (05/17/2024 10:40 AM EDT) us Scanning Provider External IMG MRI ORDERABLES Fi nal Result documented in this encounter Visit Diagnoses Diagnosis Pain- Primary Generalized pain documented in this encounter Care Teams Newspaper Columnist Relationship Specialty Start Date End Date Danis Huang DO [address] [place] [address] PCP - General Internal Medicine 05/10/21 documented as of this encounter
--- OUTSIDE RECORDS SUMMARY | 2025-02-13 12:07 | XMS_ITS | Clinical Summary ---
Author Organization [employer] tem Address [id number] [address] [place] [address] Care Team Providers Care Solar Sales Assessor Name Role Phone Danis Huang Primary Care Provider [phone] Allergies No known active allergies Medications telmisartan-hyd roCHLOROthiazid (MICARDIS HCT) 40-12.5 mg per tablet Take 1 tablet by mouth nightly. Active omeprazole (PriLOSEC) 20 mg capsule Take 1 capsule (20 mg total) by mouth in the morning. Active cholecalciferol , vitamin D3, (VITAMIN D3) 5,000 units capsule Take 1,000 Units by mouth daily. Active aspirin 81 mg Take 1 tablet (81 mg total) by mouth in the morning. Active ticagrelor (BRILINTA) 90 mg tablet Take 1 tablet (90 mg total) by mouth in the morning and 1 tablet (90 mg total) before bedtime. Active atorvastatin (LIPITOR) 80 mg tablet Take 1 tablet (80 mg total) by mouth in the morning. Active docusate sodium (COLACE) 50 mg capsule Take 1 capsule (50 mg total) by mouth in the morning and 1 capsule (50 mg total) before bedtime. Active carvediloL (COREG) 6.25 mg tablet Take 1 tablet (6.25 mg total) by mouth in the morning and 1 tablet (6.25 mg total) in the evening. Take with meals. 05/19/2023 Active nitroglycerin (NITROSTAT) 0.[address] 1 tablet (0.4 mg total) under the tongue. Active cholecalciferol , vitamin D3, 25 mcg (1,000 unit) capsule Take 1 capsule (1,000 Units total) by mouth in the morning. Active tamsulosin HCl (FLOMAX ORAL) Take 70 mg by mouth once a week. Active Active Problems Problem Noted Date Diagnosed Date Disorder of sacrum 02/07/2021 Overview (02/07/2021): Added automatically from request for surgery [id number] Primary osteoarthritis of right hip 07/19/2020 Overview (07/19/2020): Added automatically from request for surgery [id number] Ischial bursitis 07/07/2019 Overview (07/07/2019): Added automatically from request for surgery [id number] Hip pain 12/18/2009 DDD (degenerative disc disease), lumbosacral Thoracic or lumbosacral neur itis or radiculitis, unspecified 01/16/2009 Family History Medical History Relation Name Comments Heart attack Father Heart disease Father Anxiety disorder Mother Relation Name Status Comments Father Mother Social History Tobacco Use Types Packs/Day Years [...] on file Sexual Orientation Not on file Last Filed Vital Signs Vital Sign Reading Time Taken Comments Blood Pressure 152/93 05/06/2024 11:50 AM EDT Pulse 66 05/06/2024 11:50 AM EDT Temperature 36.2 C (97.1 F) 05/06/2024 11:32 AM EDT Respiratory Rate 18 05/06/2024 11:50 AM EDT Oxygen Saturation 99% 05/06/2024 11:50 AM EDT Inhaled Oxygen Concentration - - Weight 66.7 kg (147 lb) 06/24/2024 9:46 AM EST Height 162.6 cm (5' 4 ) 06/24/2024 9:46 AM EST Body Mass Index 25.23 06/24/2024 9:46 AM EST Plan of Treatment Health Maintenance Due Date Last Done Comments Depression Screening 1952 DTaP,Tdap and Td Vaccines (1 - Tdap) 1958 Fall Risk Screening 2004 COVID-19 Vaccine (2023-2 5 season) 2024 05/06/2022, 11/22/2021, 05/06/2021, Additional history exists Influenza Vaccine 04/03/2025 07/01/2024, , 05/06/2022, Additional history exists Tobacco Screening 06/24/2025 06/24/2024 Zoster (Shingles) Vaccine Completed 2018, 03/28/2019, 04/15/2011 Goals Goal Patient Goal Type Associated Problems Recent Progress Patient-Stated? Author Home General Yes Nivia Bertrand LSW Note: Evaluation of progress towards goal: Home with [facility]. Medical Devices Implanted Type Area Operations Recruiter Device Identifier Shelf Expiration Date Model / Serial / Lot Shell Actb 56mm Hip 4 Hl Clr Cd [place] G7 F Hmsphr - [id number] - [id number] Implanted:Qt y: 1 on 06/05/2021 by González Suazo, DO at [facility] Orthopedic Implant Right: Hip Gian [employer]omet 02/19/2031 [id number] / [id number] / [id number] Liner Actb 36mm F Ntrl Arcomxl G7 Hip - [id number] - [id number] Implanted:Qt y: 1 on 06/05/2021 by González Suazo, DO at [facility] Orthopedic Implant Right: Hip [employer] [id number] 02/08/2025 [id number] / [id number] / [id number] Stem Fem 5 Std Avenir Cmplt Hip Colr Strl Lf - [id number] - [id number] Implanted:Qt y: 1 on 06/05/2021 by González Suazo DO at [facility] Orthopedic Implant Right: Hip [employer] [id number] 08/02/2025 [id number] / [id number] / [id number] Head Fem 36mm +3.5mm Vrsy Cocr Hip Rpl [id number] - [id number] - [id number] Implanted:Qt y: 1 on 06/05/2021 by González Suazo DO at [facility] Orthopedic Implant Right: Hip Gian [employer]omet [id number] 06/02/2028 [id number] / [id number] / [id number] Screw Bn 30mm 6.5mm St Actb Rory Trlg Strl Rpl [id number] + [id number] + [id number] - [id number] - [id number] Implanted:Qt y: 1 on 06/05/2021 by González Suazo DO at [facility] Screw Right: Hip [employer] [id number] 08/02/2029 [id number] / [id number] / [id number] Screw Bn 30mm 6.5mm St Actb Rory Trlg Strl Rpl [id number] + [id number] + [id number] - [id number] - [id number] Implanted:Qt y: 1 on 06/05/2021 by González Suazo DO at [facility] Screw Right: Hip [employer] [id number] 07/02/2029 [id number] / [id number] / [id number] Screw Bn 30mm 6.5mm St Actb Rory Trlg Strl Rpl [id number] + [id number] + [id number] - [id number] - [id number] Implanted:Qt y: 1 on 06/05/2021 by González Suazo DO at [facility] Screw Right: Hip Gian [employer]omet [id number] 12/16/2030 [id number] / [id number] / [id number] Insurance [employer] Member Subscriber Plan / Payer (Ef fective 2024-Present) Name:Atiya Jha Relation to Subscriber:Self Name:Atiya Jha Payer ID:Not on file Type:Not on file Address: [place] [id number] Advance Directives Documents on File Type Date Recorded Patient Turntable Operator Expl anation Living Will 06/05/2021 7:19 AM * Full Code (Latest Code Status on File) Date Activated Date Inactivated Comments 06/05/2021 12:15 PM 06/08/2021 6:27 PM Care Teams Solar Sales Assessor Relationship Specialty Start Date End Date Danis Huang DO [address] [place] [address] PCP - General Internal Medicine 05/10/21
--- OUTSIDE RECORDS SUMMARY | 2025-02-13 12:08 | XMS_ITS | Encounter Summary ---
Author Organization [facility] Address [address] [place] [address] Phone Care Team Providers Care Caponizer Name Role Phone Danis Huang DO Primary Care Provider [phone] Danis Huang DO Primary Care Provider [phone] Xochitl Knox RN Unavailable Unavailable Encounter Details Date Type Department Care Team (Late st Contact Info) Description 11/26/2024 Scanned Document [facility] [address] [place] [place] [address] Scanning, Generic Provider Social History Tobacco Use Types Packs/Day Years Used Date Smoking Tobacco: Never Smokeless Tobacco: Never Alcohol Use Standard Drinks/Week Comments Yes 0 (1 standard drink = 0.6 oz pur e alcohol) social [facility] Utilities Answer Date Recorded In the past 12 months has [facility] [employer], [employer], oil, or water [employer] threatened to shut off services in your home? No 11/29/2024 Humiliation, Afraid, Rape, and Kick questionnair e Answer Date Recorded Within the last year, have y ou been afraid of your partner or ex-partner? No 11/29/2024 Within the last year, have y ou been humiliated or emotionally abused in other ways by your partner or ex-partner? No Within the last year, have y ou been kicked, hit, slapped, or otherwise physically hurt by your partner or ex-partner? No 11/29/2024 Within the last year, have y ou been raped or forced to have any kind of sexual activity by your partner or ex-partner? No 11/29/2024 AUDIT-C Answer Date Recorded Q1: How often do you have a drink containing alcohol? Never 11/29/2024 Q2: How many drinks containi ng alcohol do you have on a typical day when you are drinking? Patient does not drink Q3: How often do you have si x or more drinks on one occasion? Never 11/29/2024 Overall Financial Resource Strain (CARDIA) Answe r Date Recorded How hard is it for you to pa y for the very basics like food, housing, medical care, and heating? Not hard at all 11/29/2024 PHQ-2 Answer Date Recorded Patient Health Questionnaire-2 Score 0 11/29/2024 Hunger Vital Sign Answer Date Recorded Within the past 12 months, y ou worried that your food would run out before you got the money to buy more. Never true 11/30/19 25 Within the past 12 months, t he food you bought just didn't last and you didn't have money to get more. Never true 11/29/2024 PRAPARE - Transportation Answer Date Re corded In the past 12 months, has l ack of transportation kept you from medical appointments or from getting medications? No 11/02 In the past 12 months, has l ack of transportation kept you from meetings, work, or from getting things needed for daily living? No 11/29/2024 Housing Stability Vital Sign Answer Hayden e Recorded In the last 12 months, was t here a time when you were not able to pay the mortgage or rent on time? No 11/29/2024 In the past 12 months, how m any times have you moved where you were living? 0 11/29/2024 At any time in the past 12 m [facility], were you homeless or living in a alf (including now)? No 11/29/2024 Comments Unknown Sex and Gender Information Value Date Recorded Sex Assigned at Not on file Legal Sex Female 1:24 PM EST Gender Identity Not on file Sexual Orientation Not on file COVID-19 Exposure Response Date Recorded In the last 10 days, have yo u been in contact with someone who was confirmed or suspected to have Coronavirus/COVID-19? No / Unsure 11/29/2024 11:05 PM EDT documented as of this encounter Functional Status * Audit-C Score Answer Date of Assessment Author 0 11/29/2024 11:01 PM ANILT Sho Hess RN * Question Answer Date of Assessment Author Q1: How often do you have a drink containing alcohol? Never 11/29/2024 11:01 PM ANILT Jen Humphrey RN Q2: How many drinks containing alcohol do you have on a typical day when you are drinking? Patient does not drink 11/29/2024 11:01 PM ANILT Sho Hupmhrey RN Q3: How often do you have six or more drinks on one occasion? Never 11/29/2024 11:01 PM ANILT Jen Humphrey RN * Over the past 2 weeks, how often have you been bothered by any of the following problems? Question Answer Date of Assessment Author Patient Health Questionnaire -2 Score 0 11/29/2024 11:01 PM Jen Kim RN * Calculated C-SSRS Risk Score (Lifetime/Recent) Answer Date of Assessment Author No Risk Indicated 11/29/2024 11:01 PM ANILT Sho Renteria RN * Centre Suicide Severity Rating Scale (Screener/Recent Self-Report) Question Answer Date of Assessment Author 1. Wish to be (Past 1 Month) No 11/29/2024 11:01 PM Jen Kim RN 2. Non-Specific Active Suici ilana Thoughts (Past 1 Month) No 11/29/2024 11:01 PM Sho Kim RN 6. Suicidal Behavior (Lifetime) No 11:01 PM Sho Kim RN * Question Answer Date of Assessment Author Little interest or pleasure in doing things Not at all 11/29/2024 11:01 PM Jen Kim RN Feeling down, depressed, or hopeless Not at all 11/29/2024 11:01 PM Jen Kim RN documented as of this encounter Plan of Treatment Upcoming Encounters Date Type Department Care Team (Late st Contact Info) Description 04/07/2025 10:30 AM EDT Office Visit [facility] [address] [facility] [address] [place] [phone] Xiomara Au MD [address] [facility] [address] [place] [address] documented as of this encounter Visit Diagnoses Not on filedocumented in this encounter Additional Health Concerns Assessment Noted Time A fall risk assessment has been complete d for the patient 10/26/2024 3:12 PM EDT documented as of this encounter Care Teams Caponizer Relationship Specialty Start Date End Date Danis Huang DO PCP - General Internal Medicine 11/10/23 11/28/24 Danis Huang DO [address] [place] [address] PCP - General Internal Medicine 11/29/24 Xochitl Knox, utility inspectorElectric Fork Operator 12/05/24 01/11/25 documented as of this encounter
--- OUTSIDE RECORDS SUMMARY | 2025-02-13 12:08 | XMS_ITS | Encounter Summary ---
Author Organization [facility] Address [address] [facility] [place] [place] [address] Care Team Providers Care Air Valve Repairer Name Role Phone SalDanis She BRUSH Primary Care Provider [phone] Encounter Details Date Type Department Care Team (Late Contact Info) Description 01/30/2025 Bamboo flowsheet [facility] [address] [place] [address] Germán Weir, DPHannah [address] [place], [place] [id number] Social History Tobacco Use Types Packs/Day Years [...] 05/08/2025 1:00 PM EDT Procedure Visit [facility] [address] [place] [phone] Germán Weir DPM [address] [place] [address] 05/09/2025 11:00 AM EDT Office Visit [facility] [address] [facility] [place] [phone] Nikolai Muñoz, PA [address] [facility] [place] [address] 05/29/2025 1:30 PM EDT Office Visit [facility] [address] [facility] [address] [place] [address] Dennis Miguel DO [address] [facility] [address] [place] [address] 05/31/2025 9:30 AM EDT Office Visit [facility] [address] [place] [address] Nikolai Muñoz, PA [address] [facility] [place] [address] 06/07/2025 11:00 AM EST Clinical Support [facility] [address] [place] [address] Lisa Zamorano, [facility] [address] [place] [address] documented as of this encounter Visit Diagnoses Not on filedocumented in this encounter Care Teams Air Valve Repairer Relationship Specialty Start Date End Date Danis Huang DO [address] [place] [phone] PCP - General Internal Medicine 12/15/22 documented as of this encounter
--- OUTSIDE RECORDS SUMMARY | 2025-02-13 12:08 | XMS_ITS | Encounter Summary ---
Author Organization [facility] Address [address] [place] [address] Phone Care Team Providers Care Leather Stretcher Name Role Phone Danis Huang DO Primary Care Provider [phone] Danis Huang DO Primary Care Provider [phone] Xochitl Knox RN Unavailable Unavailable Encounter Details Date Type Department Care Team (Late st Contact Info) Description 01/07/2024 Scanned Document [facility] [address] [place] [address] Scanning, Generic Provider Social History Tobacco Use Types Packs/Day Years Used Date Smoking Tobacco: Never Smokeless Tobacco: Never Alcohol Use Standard Drinks/Week Comments Yes 0 (1 standard drink = 0.6 oz pur e alcohol) social Comments Unknown Sex and Gender Information Value Date Recorded Sex Assigned at Not on file Legal Sex Female 1:24 PM EST Gender Identity Not on file Sexual Orientation Not on file documented as of this encounter Plan of Treatment Upcoming Encounters Date Type Department Care Team (Late st Contact Info) Description 04/07/2025 10:30 AM EDT Office Visit [facility] [address] [address] Xiomara Au MD [address] [facility] [address] [place] [address] documented as of this encounter Procedures Procedure Name Priority Date/Time Associated Diagnosis Comments ECHOCARDIOGRAM 01/07/2024 documented in this encounter Results * Echocardiogram (01/07/2024) Narrative 01/07/2024 Ordered by an unspecified provider. us Generic Provider Scanning CV ECHO PROCEDURES Fin al Result documented in this encounter Visit Diagnoses Not on filedocumented in this encounter Additional Health Concerns Assessment Noted Time A fall risk assessment has been complete d for the patient 06/15/2023 9:11 AM EST documented as of this encounter Care Teams Leather Stretcher Relationship Specialty Start Date End Date Danis Huang DO PCP - General Internal Medicine 11/10/23 11/28/24 Danis Huang DO [address] [place] [address] PCP - General Internal Medicine 11/29/24 Xochitl Knox, pickle pumperChemical Plant Operator Supervisor 12/05/24 01/11/25 documented as of this encounter
--- OUTSIDE RECORDS SUMMARY | 2025-02-13 12:08 | XMS_ITS | Clinical Summary ---
Author Organization [facility] Address [address] [place] [address] Care Team Providers Care Pusher Operator Name Role Phone Geronimo Vu Primary Care Provider [phone] Allergies No known active allergies Medications darifenacin hydrobromide(EN ABLEX 7.5 MG 24 HR TAB) ONE IN AM AND 1 IN THE PM 0 07/08/2007 Active rosuvastatin calcium(CRESTOR 10 MG TAB) 0 07/08/2007 Active aspirin(ECOTRIN LOW STRENGTH 81 MG TAB) Take one (1) tablet daily. 0 07/08/2007 Active omeprazole(PRIL OSEC 20 MG CAP) Take one(1) capsule daily. 0 01/16/2009 Active irbesartan/hydr ochlorothiazide (AVALIDE 150 MG-12.5 MG TAB) Take 1 tablet daily 0 12/13/2009 Active ATENOLOL 25 MG TAB Take one(1) tablet daily. 0 12/13/2009 Active Active Problems Problem Noted Date Diagnosed Date Sacroiliac joint pain 01/17/2010 Hip pain 12/18/2009 Thoracic or lumbosacral neur itis or radiculitis, unspecified 01/16/2009 Degeneration of lumbar or lumbosacral interverte bral disc 01/16/2009 Family History Medical History Relation Comments Coronary Artery Disease Father Heart Father Hypertension Father Relation Status Comments Father Social History Tobacco Use Types Packs/Day Years Used Date Smoking Tobacco: Never Alcohol Use Standard Drinks/Week Comments Yes 0 (1 standard drink = 0.6 oz pur e alcohol) occasional Comments No Sex and Gender Information Value Date Recorded Sex Assigned at Not on file Legal Sex Female 8:11 AM EST Gender Identity Not on file Sexual Orientation Not on file Last Filed Vital Signs Vital Sign Reading Time Taken Comments Blood Pressure 140/69 03/28/2011 7:00 AM EDT Pulse 89 03/28/2011 7:00 AM EDT Temperature 36.8 C (98.3 F) 03/28/2011 7:00 AM EDT Respiratory Rate 16 03/28/2011 7:00 AM EDT Oxygen Saturation 94% 03/28/2011 7:00 AM EDT Inhaled Oxygen Concentration - - Weight 77.6 kg (171 lb) 03/18/2011 3:21 PM EDT Height 165.1 cm (5' 5 ) 03/18/2011 3:21 PM EDT Body Mass Index 28.46 03/18/2011 3:21 PM EDT Plan of Treatment Health Maintenance Due Date Last Done Comments Anxiety Screening 1958 Depression Screening 1958 DTaP,Tdap,Td Vaccine (1 - Tdap) 1958 Pneumococcal Vaccine: 50+ (1 of 1 - PCV) 1989 Shingrix Vaccine (1 of 2) 1989 Bone Density Screening 2004 Diabetes Screening 03/26/2014 03/26/2011, 03/18/2011 RSV Vaccine (1 - 1-dose 75+ series) 2014 Covid-19 Vaccine (1 - season) 2024 Advance Directive Discussion 08/03/2024 Influenza Vaccine (Season Ended) 2025 Medical Devices Implanted Type Area Oil Dispatcher Device Identifier Shelf Expiration Date Model / Serial / Lot Ins Actb 36mm 0d E X3 Trdnt - [id number] Implanted:Qty : 1 on 03/25/2011 at [facility] Joint - Hip Left: Bone - Hip [employer] 08/03/2015 [id number] / / [id number] Head Fem -5mm 36mm Hip Cocr - [id number] Implanted:Qty : 1 on 03/25/2011 at [facility] Joint - Hip Left: Bone - Hip [employer] 10/02/2015 [id number] / / [id number] Shell Actb 52mm T/H Pros - [id number] Implanted:Qty : 1 on 03/25/2011 at [facility] Joint Left: Bone - Hip [employer] 05/03/2015 [id number] / / [id number] Stem Fem Acld Tmzf 4.5 Hip - [id number] Implanted:Qty : 1 on 03/25/2011 at [facility] Joint Left: Bone - Hip [employer] 01/02/2016 [id number] / / [id number] Procedures Procedure Name Priority Date/Time Associated Diagnosis Comments BASIC METABOLIC PANEL Routine 03/26/2011 6:20 AM EDT from Last 3 Months or Most Recently Relevant to Health Maintenance Results * (ABNORMAL) BASIC METABOLIC PNL (03/26/2011 6:20 AM EDT) Glucose 122(H) 65 - 100 mg/dL [facility] BUN 18 8 - 25 mg/dL [facility] Creatinine 0.80 0.70 - 1.40 mg/dL [facility] Sodium 138 132 - 148 mmol/L [facility] Potassium 4.2 3.5 - 5.0 mmol/L [facility] Chloride 103 98 - 110 mmol/L [facility] CO2 28 23 - 32 mmol/L [facility] Calcium 8.4(L) 8.5 - 10.5 mg/dL [facility] Glom Filtration Rate (AA) >60 >60 [facility] Glom Filtration Rate (NOBLE) >60 >60 . [facility] Blood specimen (specimen) BLOOD SPECIMEN / Unknown 03/26/2011 6:20 AM EDT 03/26/2011 7:16 AM EDT [facility] Final Result [facility] [address] [address] from Last 3 Months or Most Recently Relevant to Health Maintenance Insurance MEDICARE Care Teams Pusher Operator Relationship Specialty Start Date End Date Geronimo Vu PCP - General 02/11/10
--- OUTSIDE RECORDS SUMMARY | 2025-02-13 12:08 | XMS_ITS | Encounter Summary ---
Author Organization [facility] tem Address [id number] [address] [place] [address] Care Team Providers Care Practical Nurse Clinical Coordinator Name Role Phone Danis Huang DO Primary Care Provider [phone] Reason for Visit * Reason Onset Date Comments Cancelled procedure, surgical clearance needed 0 02/15/2021 Encounter Details Date Type Department Care Team (Late st Contact Info) Description 02/15/2021 Documentation [facility] [address] [place] [id number] Chandni Scott RN Cancelled procedure, surgical clearance needed Social History Tobacco Use Types Packs/Day Years Used Date Smoking Tobacco: Never Smokeless Tobacco: Never Alcohol Use Standard Drinks/Week Comments Yes 0 (1 standard drink = 0.6 oz pur e alcohol) social Childcare Answer Date Recorded Childcare Unknown 01/04/2019 Employment Answer Date Recorded Employment Unknown 01/04/2019 Purpose - Life Answer Date Recorded Purpose and direction in life Unknown Comments No Sex and Gender Information Value Date Recorded Sex Assigned at Not on file Legal Sex Female 11:40 AM EDT Gender Identity Not on file Sexual Orientation Not on file COVID-19 Exposure Response Date Recorded In the last month, have you been in contact with someone who was confirmed or suspected to have Coronavirus / COVID-19? No / Unsure 02/15/2021 8:02 AM EDT documented as of this encounter Plan of Treatment Not on file documented as of this encounter Visit Diagnoses Not on filedocumented in this encounter Care Teams Practical Nurse Clinical Coordinator Relationship Specialty Start Date End Date Danis Huang DO [address] [place] [address] PCP - General Internal Medicine 05/10/21 documented as of this encounter
--- OUTSIDE RECORDS SUMMARY | 2025-02-13 12:08 | XMS_ITS | Encounter Summary ---
Author Organization [facility] Address [address] [facility] [place] [address] Care Team Providers Care Electric Track Switch Maintainer Name Role Phone SalDanis Malgorzata BRUSH Primary Care Provider [phone] Reason for Visit * Reason Comments Med Refill Encounter Details Date Type Department Care Team ( Contact Info) Description 12/06/2024 Refill [facility] OB [address] [place] [address] Shaq Calzada DO [address] Zoey Ernandez, [facility]11 Osteoporosis, post-menopausal Social History Tobacco Use Types Packs/Day Years [...] Procedure Visit [facility] [address] [facility] [place] [phone] Germán Weir, DPM [address] [place] [address] 05/09/2025 11:00 AM EDT Office Visit [facility] [address] [place] [address] Nikolai Muñoz, PA [address] [place] [address] 05/29/2025 1:30 PM EDT Office Visit [facility] [address] [facility] [address] [place] [phone] Dennis Miguel DO [address] [facility] [address] [place] [address] 05/31/2025 9:30 AM EDT Office Visit [facility] [address] [place] [address] Nikolai Muñoz, PA [address] [place] [address] 06/07/2025 11:00 AM EST Clinical Support [facility] [address] [place] [phone] Lisa Zamorano, [facility] [address] [place] [address] documented as of this encounter Visit Diagnoses Diagnosis Osteoporosis, post-menopausal Senile osteoporosis documented in this encounter Care Teams Electric Track Switch Maintainer Relationship Specialty Start Date End Date Danis Huang DO [address] [place] [address] PCP - General Internal Medicine 12/15/22 documented as of this encounter
--- OUTSIDE RECORDS SUMMARY | 2025-02-13 12:08 | XMS_ITS | Encounter Summary ---
Author Organization [facility] Address [address] [facility] [place] [address] Care Team Providers Care Inspector Machine Parts Name Role Phone Danis Huang Primary Care Provider [phone] Encounter Details Date Type Department Care Team (Latest Contact Info) Description 01/30/2025 Travel Social History Tobacco Use Types Packs/Day Years [...] EDT Procedure Visit [facility] [address] [place] [phone] Germán Weir, RODOLFO [address] [place], [place] [id number] 05/09/2025 11:00 AM EDT Office Visit [facility] [address] [place] [address] Nikolai Muñoz PA [address] [place] [address] 05/29/2025 1:30 PM EDT Office Visit [facility] [address] [place] [address] Dennis Miguel DO [address] [place] [address] 05/31/2025 9:30 AM EDT Office Visit [facility] [address] [place] [address] Nikolai Muñoz PA [address] [place] [address] 06/07/2025 11:00 AM EST Clinical Support [facility] [address] [place] [address] Lisa Zamorano, [facility] [address] [facility] [place] [address] documented as of this encounter Visit Diagnoses Not on filedocumented in this encounter Care Teams Inspector Machine Parts Relationship Specialty Start Date End Date Danis Huang DO [address] [place] [address] PCP - General Internal Medicine 12/15/22 documented as of this encounter
--- OUTSIDE RECORDS SUMMARY | 2025-02-13 12:08 | XMS_ITS | Encounter Summary ---
Author Organization [facility] Address [address] [facility] [place] [address] Care Team Providers Care Nuclear Medicine Tech Name Role Phone Danis Huang DO Primary Care Provider [phone] Encounter Details Date Type Department Care Team (Late st Contact Info) Description 07/07/2023 Abstract [facility] [address] [place] [address] Paula Jarrett NP Social History Tobacco Use Types Packs/Day Years [...] EDT Procedure Visit [facility] [address] [place] [address] Germán Weir DPM [address] [place], [place] [address] 05/09/2025 11:00 AM EDT Office Visit [facility] [address] [place] [address] Nikolai Muñoz, PA [address] [place] [address] 05/29/2025 1:30 PM EDT Office Visit [facility] [address] [facility] [address] [place] [address] Dennis Miguel DO [address] [facility] [address] [place] [address] 05/31/2025 9:30 AM EDT Office Visit [facility] [address] [facility] [address] Nikolai Muñoz, SHANNAN [address] [place] [address] 06/07/2025 11:00 AM EST Clinical Support [facility] [address] [place] [address] Lisa Zamorano, [facility] [address] [facility] [place] [address] documented as of this encounter Visit Diagnoses Not on filedocumented in this encounter Care Teams Nuclear Medicine Tech Relationship Specialty Start Date End Date Danis Huang DO [address] [place] [address] PCP - General Internal Medicine 12/15/22 documented as of this encounter
--- OUTSIDE RECORDS SUMMARY | 2025-02-13 12:08 | XMS_ITS | Encounter Summary ---
Author Organization [facility] Address [address] [place] [address] Phone Care Team Providers Care Mangle Tender Name Role Phone SalDanis She BRUSH Primary Care Provider [phone] Xochitl Knox RN Unavailable Unavailable Encounter Details Date Type Department Care Team (Late st Contact Info) Description 11/29/2024 Scanned Document [facility] [address] [place] [phone] Scanning, Generic Provider Social History Tobacco Use Types Packs/Day Years Used Date Smoking Tobacco: Never Smokeless Tobacco: Never Alcohol Use Standard Drinks/Week Comments Yes 0 (1 standard drink = 0.6 oz pur e alcohol) social [facility] Utilities Answer Date Recorded In the past 12 months has [facility] [employer], gas, oil, or water [employer] threatened to shut off services in your [...] any time in the past 12 m [facility], were you homeless or living in a detention (including now)? No 11/29/2024 Comments Unknown Sex [...] drink containing alcohol? Never 11/29/2024 11:01 PM Jen Kim RN Q2: How many drinks containing alcohol do you have on a typical day when you are drinking? Patient does not drink 11/29/2024 11:01 PM Sho Kim RN Q3: How often do you have six or more drinks on one occasion? Never 11/29/2024 11:01 PM Jen Kim RN * Over the past 2 weeks, how often have you been bothered by any of the following problems? Question Answer Date of Assessment Author Patient Health Questionnaire -2 Score 0 11/29/2024 11:01 PM Jen Kim RN * Calculated C-SSRS Risk Score (Lifetime/Recent) Answer Date of Assessment Author No Risk Indicated 11/29/2024 11:01 PM Sho Wayne RN * [place] Suicide Severity Rating Scale (Screener/Recent Self-Report) Question [...] Description 04/07/2025 10:30 AM EDT Office Visit [facility] [address] [phone] Xiomara Au MD [address] [facility] [address] [place] [address] documented as of this encounter Visit Diagnoses Not on filedocumented in this encounter Additional Health Concerns Assessment Noted Time A fall risk assessment has been complete d for the patient 10/26/2024 3:12 PM EDT documented as of this encounter Care Teams Mangle Tender Relationship Specialty Start Date End Date Danis Huang DO [address] [place] [address] PCP - General Internal Medicine 11/29/24 Xochitl Knox, jewel oliving machine operatorLongitudinal Float Operator 12/05/24 01/11/25 documented as of this encounter
--- OUTSIDE RECORDS SUMMARY | 2025-02-13 12:08 | XMS_ITS | Encounter Summary ---
Author Organization [facility] Address [address] [place] [address] Phone Care Team Providers Care Call Centre Supervisor Name Role Phone Danis Huang DO Primary Care Provider [phone] Danis Huang DO Primary Care Provider [phone] Xochitl Knox RN Unavailable Unavailable Encounter Details Date Type Department Care Team (Late st Contact Info) Description 11/18/2023 Scanned Document [facility] [address] [place] [address] Scanning, Generic Provider Social History [...] Description 04/07/2025 10:30 AM EDT Office Visit [facility] [address] [address] [facility]omara Au MD [facility] [facility] [place] [address] documented as of this encounter Procedures Procedure Name Priority Date/Time Associated Diagnosis Comments CARDIAC CATHETERIZATION PROCEDURE - ONBASE SCAN 11/18/2023 CARDIAC CATHETERIZATION PROCEDURE - ONBASE SCAN 11/18/2023 documented in this encounter Results * Cardiac Catheterization - Onbase Scan (11/18/2023) Narrative 11/18/2023 Ordered by an unspecified provider. us Generic Provider Scanning CV CARDIAC CATH PROCED URES Final Result * Cardiac Catheterization - Onbase Scan (11/18/2023) Narrative 11/18/2023 Ordered by an unspecified provider. us Generic Provider Scanning CV CARDIAC CATH PROCED URES Final Result documented in this encounter Visit Diagnoses Not on filedocumented in this encounter Additional Health Concerns Assessment Noted Time A fall risk assessment has been complete d for the patient 06/15/2023 9:11 AM EST documented as of this encounter Care Teams Call Centre Supervisor Relationship Specialty Start Date End Date Danis Huang DO PCP - General Internal Medicine 11/10/23 11/28/24 [facility] [place] [address] PCP - General Internal Medicine 11/29/24 Xochitl Knox, manufacturing sales representativeChief Engineer Waterworks 12/05/24 01/11/25 documented as of this encounter
--- OUTSIDE RECORDS SUMMARY | 2025-02-13 12:08 | XMS_ITS | Clinical Summary ---
Author Organization [facility] Address [address] 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 Active atorvastatin (Lipitor) 80 mg tablet Take 1 tablet (80 mg) by mouth once daily. Active nitroglycerin (Nitrostat) 0.[address] 1 tablet (0.4 mg) under the tongue every 5 minutes if needed for chest pain. Up to 3 doses Active calcium carbonate-vitamin D3 500 mg-5 mcg (200 unit) tablet Take 1 tablet by mouth once daily. Active docusate sodium (Colace) 50 mg capsule Take 2 capsules (100 mg) by mouth 2 times a day. 01/15/20 23 Active mirabegron (Myrbetriq) 25 mg tablet extended release 24 hr 24 hr tablet Take 1 tablet (25 mg) by mouth once daily at bedtime. Active alendronate (Fosamax) 70 mg tablet Take 1 tablet (70 mg) by mouth every 7 days. Take in the morning with a full glass of water, on an empty stomach, and do not take anything else by mouth or lie down for the next 30 min. Active clopidogrel (Plavix) 75 mg tabletIndications :ASCVD (arteriosclerotic cardiovascular disease) Take 1 tablet (75 mg) by mouth once daily. 90 tablet 3 10/27/19 25 026 Active estradiol (Estrace) 0.01 % (0.1 mg/gram) vaginal cream Insert 0.5 Applicatorfuls (2 g) into the vagina once daily as needed. 09/28/19 25 Active hydroCHLOROthiazi de (HYDRODiuril) 25 mg tablet Take 0.5 tablets (12.5 mg) by mouth once daily. 11/01/19 25 Active pantoprazole (ProtoNix) 40 mg EC tablet Take 1 tablet (40 mg) by mouth once daily in the morning. Take before meals. 10/29/19 25 Active ranolazine (Ranexa) 500 mg 12 hr tabletIndications :Angina pectoris, unspecified Take 1 tablet (500 mg) by mouth 2 times a day. Do not crush, chew, or split. 60 tablet 2 12/04/19 25 Active losartan (Cozaar) 25 mg tabletIndications :Essential hypertension Take 1 tablet (25 mg) by mouth once daily. 30 tablet 3 12/05/19 25 Active carvedilol (Coreg) 3.125 mg tabletIndications :Essential hypertension Take 1 tablet (3.125 mg) by mouth 2 times daily (morning and late afternoon). 180 tablet 3 01/27/20 25 026 Active carvedilol (Coreg) 6.25 mg tabletIndications :Essential hypertension,Two- vessel coronary artery disease Take 1 tablet (6.25 mg) by mouth 2 times daily (morning and late afternoon). 180 tablet 3 06/06/20 24 025 Disconti nued(Dos e adjustme nt) Active Problems Problem Noted Date Diagnosed Date Orthostatic hypotension 01/26/2025 NSTEMI (non-ST elevated myocardial infarction) ( Multi) 11/29/2024 Mild aortic stenosis 05/30/2024 BMI 24.0-24.9, adult 05/30/2024 Preop cardiovascular exam 05/30/2024 Never smoked cigarettes 01/12/2024 Dysuria 11/30/2023 Assessment & Plan (11/30/2023 12:19 PM EDT): Dysuria and frequency Weakness 11/30/2023 Assessment & Plan (11/30/2023 12:19 PM EDT): Patient has noted progressive worsening weakness. Initially [...] orthopnea or PND. No dyspnea on exertion. History of PTCA 06/15/2023 Two-vessel coronary artery disease 05/19/2023 Assessment & Plan (11/30/2023 12:16 PM EDT): November 18, 2023 cardiac cath following abnormal outpatient perfusion study Ostial/proximal LAD PCI/Outlook 2.5 x 15 mm Proximal circumflex with patent stent RCA 25% She then had diffuse disease of small vessels including OM and PDA. LVEF 40% She was initiated on Nitropatch 0.2 mg/h Congestive heart failure, NYHA class 2 and ACC/A GLASER stage C 05/19/2023 Assessment & Plan (11/30/2023 12:17 PM EDT): IC HF borderline EF 40% November 2023 cath (January 2023 TTE EF 40-45%) FC III weakness and fatigue GDMT Coreg Micardis Essential hypertension 05/19/2023 Mixed hyperlipidemia 05/19/2023 Resolved Problems Problem Noted Date Diagnosed Date Resolved Date Normal cardiovascular exam 05/30/2024 1 Systolic murmur 05/19/2023 05/30/2024 Encounters Date Type Department Care Team Description 01/26/2025 10:20 AM EDT Office Visit [address] [place] [address] Xiomara Au MD Orthostatic hypotension (Primary Dx); Essential hypertension; Palpitations; Never smoked cigarettes; BMI 24.0-24.9, adult; Weakness 01/26/2025 Travel 01/24/[address] [place] [address] Payton Salgado LPN Error (VOID this visit) 01/24/2025 Telephone [facility] [address] [place] [phone] Payton Salgado LPN Medical Advice/Question 01/11/2025 Patient Outreach [address] [phone] Xochitl Knox RN 12/16/2024 Patient Outreach [address] [address] Xochitl Knox RN 12/09/2024 11:30 AM EDT Office Visit [address] [phone] Xiomara Au MD Two-vessel coronary artery disease (Primary Dx); Mixed hyperlipidemia; Mild aortic stenosis; History of PTCA; Essential hypertension; NSTEMI (non-ST elevated myocardial infarction) (Multi); Congestive heart failure, NYHA class 2 and ACC/AHA stage C; BMI 25.0-25.9,adult; Never smoked cigarettes 12/09/2024 Travel 12/05/2024 Patient Outreach [facility] [address] [place] [address] Frances Terrazas, NICOLE 12/05/2024 Patient Outreach [address] [address] Xochitl Knox RN 12/05/2024 Orders Only [facility] [address] [place] [address] Frances Terrazas, NICOLE 12/05/2024 Orders Only [facility] [address] [place] [address] Frances Terrazas, NICOLE Essential hypertension; Weakness 12/02/2024 12:30 PM EDT - 12/02/2024 1:15 PM EDT Surgery [address] [place] [address] Ann Howard MD PCI OLE Stent- Coronary [20515 (CPT )] 11/29/2024 10:53 AM EDT - 12/03/2024 12:16 PM EDT Hospital Encounter [facility] 8 Cardiac Intensive Care [address] [place] [address] Gurinder Oliveira MD Platzbecker, Ryan, MD Shah, Rohit M, MD NSTEMI (non-ST elevated myocardial infarction) (Multi) (Primary Dx); Preop cardiovascular exam; Encounter for follow-up examination after completed treatment for conditions other than malignant neoplasm; Encounter for other preprocedural examination; Acute coronary microvascular dysfunction (Multi); Angina pectoris, unspecified; Essential hypertension Discharge Disposition: Home 11/29/2024 Scanned Document [facility] [address] [place] [address] Scanning, Generic Provider 11/29/2024 Travel 11/28/2024 Orders Only [facility] [address] [place] [address] Scanning, Generic Provider 11/26/2024 Scanned Document [facility] [address] [place] [address] Scanning, Generic Provider 11/25/2024 Scanned Document [facility] [address] [place] [address] Scanning, Generic Provider from Last 3 Months Immunizations Immunization Administration Dates Next Due Flu vaccine (IIV4), preserva tive free *Check age/dose* 04/28/2018,05/04/2017 Flu vaccine, quadrivalent, h igh-dose, preservative free, age 65y+ (FLUZONE) 05/06/2023,05/06/2022,04/24/2021 Flu vaccine, trivalent, pres ervative free, HIGH-DOSE, age 65y+ (Fluzone) 07/01/2024,05/04/2020,04/03/2020,04/29 Influenza, Unspecified 05/06/2023,2021,04/24/2021,05/04,04/03/2020,04/29/2019,04/28/2018 ,05/04/2017 Pneumococcal conjugate vacci ne, 13-valent (PREVNAR 13) 05/06/2016 Pneumococcal polysaccharide vaccine, 23-valent, age 2 years and older (PNEUMOVAX 23) 08/03/2010,08/03/2004 Zoster vaccine, recombinant, adult (SHINGRIX) 07/01/2019,03/28/2019 Zoster, live 04/15/2011 Social History Tobacco Use Types Packs/Day Years Used Date Smoking Tobacco: Never Smokeless Tobacco: Never Tobacco Cessation:Counseling Given: Not Answered Alcohol Use Standard Drinks/Week Comments Yes 0 (1 standard drink = 0.6 oz pur e alcohol) social [facility] Utilities Answer Date Recorded In the past 12 months has e [employer], gas, oil, or water [employer] threatened to shut off services in your [...] any time in the past 12 m [facility], were you homeless or living in a halfway (including now)? No 11/29/2024 Comments Unknown Sex and Gender Information Value Date Recorded Sex Assigned at Not on file Legal Sex Female 1:24 PM EST Gender Identity Not on file Sexual Orientation Not on file Last Filed Vital Signs Vital Sign Reading Time Taken Comments Blood Pressure 132/64 01/26/2025 10:22 AM EDT Pulse 72 01/26/2025 10:21 AM EDT Temperature 36.6 C (97.9 F) 12/03/2024 7:39 AM EDT Respiratory Rate 16 12/02/2024 11:14 PM EDT Oxygen Saturation 93% 12/03/2024 7:39 AM EDT Inhaled Oxygen Concentration - - Weight 64.4 kg (142 lb) 01/26/2025 10:21 AM EDT Height 162.6 cm (5' 4 ) 01/26/2025 10:21 AM EDT Body Mass Index 24.37 01/26/2025 10:21 AM EDT Plan of Treatment Upcoming Encounters Date Type Department Care Team (Late st Contact Info) Description 04/07/2025 10:30 AM EDT Office Visit [facility] [address] [facility] [address] [place] [phone] Xiomara Au MD [address] [facility], [address] [place] [address] Health Maintenance Due Date Last Done Comments Lipid Panel 1940 Medicare Annual Wellness Visit (AWV) 1940 DTaP/Tdap/Td Vaccines (1 - Tdap) 1961 RSV High Risk: (Elderly (60+) or Population) (1 - 1-dose 75+ series) 2014 COVID-19 Vaccine (3 - season) 2024 05/06/2022, 11/22/2021 Bone Density Scan 05/21/2024 05/21/2022 Influenza Vaccine (#1) 2025 , 05/06/2023, 05/06/2023, Additional history exists Echocardiogram 11/25/2025 11/25/2024, 06/0 01/2024, 01/15/2023 Creatinine Level 12/03/2025 12/03/2024, 09/2024, 12/01/2024, Additional history exists Diabetes Screening 12/03/2025 12/03/2024, 0 12/02/2024, 12/01/2024, Additional history exists Potassium Level 12/03/2025 12/03/2024, 05/0 09/2024, 12/01/2024, Additional history exists Pneumococcal Vaccine Completed 05/06/2016, 08/03/2010, 08/03/2004 Zoster Vaccines Completed 07/01/2019, 03/04, 04/15/2011 HIB Vaccines Aged Out No longer eligi ble based on patient's age to complete this topic HPV Vaccines (No Doses Required) Completed Hepatitis A Vaccines Aged Out No long er eligible based on patient's age to complete this topic Hepatitis B Vaccines Aged Out No long er eligible based on patient's age to complete this topic IPV Vaccines Aged Out No longer eligi ble based on patient's age to complete this topic Meningococcal Vaccine Aged Out No gabriel yasir eligible based on patient's age to complete this topic Rotavirus Vaccines Aged Out No longer eligible based on patient's age to complete this topic Medical Devices Implanted Type Area Front End Application Developer Device Identifier Shelf Expiration Date Model / Serial / Lot Stent, Ananda [place] Ole, 2.50 X 15rx - [id number] Implanted:Qty: 1 on 12/02/2024 by Ann Howard MD at [facility] Stent N/A: Coronary [employer] 03/31/2027 [id number] / / [id number] Procedures Procedure Name Priority Date/Time Associated Diagnosis Comments ECG 12-LEAD Routine 01/26/2025 10:20 AM EDT Palpitations ECG 12-LEAD Routine 12/03/2024 7:25 AM EDT MAGNESIUM Pending Discharge 12/03/2024 6:04 AM EDT BASIC METABOLIC PANEL Pending Discharge 12/03/2024 6:04 AM EDT HEPARIN ASSAY Pending Discharge 12/03/2024 6:04 AM EDT CBC Pending Discharge 12/03/2024 6:04 AM EDT ECG 12-LEAD STAT 12/02/2024 1:57 PM EDT PCI OLE STENT- CORONARY Routine 12/02/2024 1:00 PM EDT NSTEMI (non-ST elevated myocardial infarction) (Multi) Angina pectoris, unspecified ACTIVATED CLOTTING TIME LOW Routine 12/02/2024 12:50 PM EDT ECG 12-LEAD Routine 12/02/2024 6:18 AM EDT MAGNESIUM Pending Discharge 12/02/2024 5:59 AM EDT BASIC METABOLIC PANEL Pending Discharge 12/02/2024 5:59 AM EDT HEPARIN ASSAY Pending Discharge 12/02/2024 5:59 AM EDT CBC Pending Discharge 12/02/2024 5:59 AM EDT ECG 12-LEAD Routine 12/01/2024 6:53 AM EDT HEPARIN ASSAY Routine 12/01/2024 5:37 AM EDT MAGNESIUM Routine 12/01/2024 5:37 AM EDT BASIC METABOLIC PANEL Routine 12/01/2024 5:37 AM EDT CBC Routine 12/01/2024 5:37 AM EDT HEPARIN ASSAY Timed 12/01/2024 12:08 AM EDT CBC Routine 12/01/2024 12:08 AM EDT ECG 12-LEAD Routine 11/30/2024 6:43 PM EDT TROPONIN I, HIGH SENSITIVITY STAT 11/30/2024 6:38 PM EDT HEPARIN ASSAY Routine 11/30/2024 5:23 PM EDT HEPARIN ASSAY Routine 11/30/2024 1:51 PM EDT HEPARIN ASSAY Routine 11/30/2024 9:28 AM EDT SST TOP Routine 11/30/2024 9:27 AM EDT EXTRA TUBES Routine 11/30/2024 9:27 AM EDT ECG 12-LEAD Routine 11/30/2024 9:01 AM EDT MAGNESIUM Add-On 11/30/2024 3:56 AM EDT SST TOP Routine 11/30/2024 3:56 AM EDT EXTRA TUBES Routine 11/30/2024 3:56 AM EDT HEPARIN ASSAY Routine 11/30/2024 3:56 AM EDT TSH WITH REFLEX TO FREE T4 IF ABNORMAL Routine 11/30/2024 3:56 AM EDT CBC WITH AUTO DIFFERENTIAL Routine 11/30/2024 3:56 AM EDT COAGULATION SCREEN Routine 11/30/2024 3: 56 AM EDT COMPREHENSIVE METABOLIC PANEL Routine 11/30/2024 3:56 AM EDT URINALYSIS MICROSCOPIC ONLY Routine 11/29/2024 10:08 PM EDT URINE SLATER TUBE Routine 11/29/2024 10:08 PM EDT EXTRA TUBES Routine 11/29/2024 10:08 PM EDT URINALYSIS WITH REFLEX MICROSCOPIC Routine 11/29/2024 10:08 PM EDT HEPARIN ASSAY Timed 11/29/2024 8:[address] CHEST WO IV CONTRAST Routine 11/29/2024 5:38 PM EDT VAS US LOWER EXTREMITY VEIN MAPPING BILATERAL Routine 11/29/2024 5:34 PM EDT Preop cardiovascular exam Encounter for other preprocedural examination Acute coronary microvascular dysfunction (Multi) VAS US CAROTID ARTERY DUPLEX BILATERAL Routine 11/29/2024 5:34 PM EDT Preop cardiovascular exam Encounter for follow-up examination after completed treatment for conditions other than malignant neoplasm HEPARIN ASSAY STAT 11/29/2024 4:24 PM EDT CARDIAC CATHETERIZATION PROCEDURE - ONBASE SCAN 11/28/2024 ECHOCARDIOGRAM 11/25/2024 OUTSIDE IMAGING SCAN 11/25/2024 from Last 3 Months Results * ECG 12 Lead (01/26/2025 10:20 AM EDT) Only the most recent of7 resultswithin the time period is included. Narrative [facility] - 01/26/2025 10:34 AM EDT Normal sinus rhythm. Normal EKG us Xiomara Au MD ECG ORDERABLES Final Resu lt Performing Organization Address City/[facility]/ZIP Co de Phone Number [facility] * Heparin Assay (12/03/2024 6:04 AM EDT) Only the most recent of10 resultswithin the time period is included. [facility] Heparin Unfractionated 0.1 See Comment Below for Therapeutic Ranges IU/mL LAB COAGULATION METHOD 12/03/2024 6:27 AM EDT [facility] Blood Venous blood specimen / Unknown Venipuncture / Unknown 12/03/2024 6:04 AM EDT 12/03/2024 6:14 AM EDT [facility] - 12/03/2024 6:27 AM EDT The therapeutic reference range for UFH may be either 0.3-0.6 IU/mL or 0.3-0.7 IU/mL based on the clinical setting for anticoagulant therapy and the associated nomogram used. For Heparin dosing guidelines based on clinical scenario and Heparin Assay results, please refer to local Pharmacy and the [facility] Guidelines for Anticoagulation Therapy available on the [facility] intranet at: [email or web address] us Karl Mccormick MD LAB BLOOD ORDERABLES Final Resul t Performing Organization Address City/[facility]/ZIP Co de Phone Number [facility] [address] [place] [address] * (ABNORMAL) CBC (12/03/2024 6:04 AM EDT) Only the most recent of4 resultswithin the time period is included. [facility] WBC 6.9 4.4 - 11.3 x10*3/uL LAB HEMATOLOGY METHOD 12/03/2024 6:17 AM EDT [facility] nRBC 0.0 0.0 - 0.0 /100 WBCs LAB HEMATOLOGY METHOD 12/03/2024 6:17 AM EDT [facility] RBC 3.74(L) 4.00 - 5.20 x10*6/uL LAB HEMATOLOGY METHOD 12/03/2024 6:17 AM EDT [facility] Hemoglobin 11.9(L) 12.0 - 16.0 g/dL LAB HEMATOLOGY METHOD 12/03/2024 6:17 AM EDT [facility] Hematocrit 35.6(L) 36.0 - 46.0 % LAB HEMATOLOGY METHOD 12/03/2024 6:17 AM EDT [facility] MCV 95 80 - 100 fL LAB HEMATOLOGY METHOD 12/03/2024 6:17 AM EDT [facility] MCH 31.8 26.0 - 34.0 pg LAB HEMATOLOGY METHOD 12/03/2024 6:17 AM EDT [facility] MCHC 33.4 32.0 - 36.0 g/dL LAB HEMATOLOGY METHOD 12/03/2024 6:17 AM EDT [facility] RDW 13.0 11.5 - 14.5 % LAB HEMATOLOGY METHOD 12/03/2024 6:17 AM EDT [facility] Platelets 178 150 - 450 x10*3/uL LAB HEMATOLOGY METHOD 12/03/2024 6:17 AM T [facility] Blood Venous blood specimen / Unknown Venipuncture / Unknown 12/03/2024 6:04 AM EDT 12/03/2024 6:13 AM EDT us Valorie Henriquez SOCIAL SERVICE WORKER-GARAGE WORKER LAB BLOOD ORDERABLES Final Result [facility] [address] [place] [address] * Magnesium (12/03/2024 6:04 AM EDT) Only the most recent of4 resultswithin the time period is included. Magnesium 2.01 1.60 - 2.40 mg/dL LAB CHEMISTRY METHOD 12/03/2024 6:36 AM [facility] Blood Venous blood specimen / Unknown Venipuncture / Unknown 12/03/2024 6:04 AM EDT 12/03/2024 6:12 AM EDT us Karl Mccormick MD LAB BLOOD ORDERABLES Final Resul t [facility] [address] [place] [address] * Basic Metabolic Panel (12/03/2024 6:04 AM EDT) Only the most recent of3 resultswithin the time period is included. Glucose 98 74 - 99 mg/dL LAB CHEMISTRY METHOD 12/03/2024 6:36 AM [facility] Sodium 136 136 - 145 mmol/L LAB CHEMISTRY METHOD 12/03/2024 6:36 AM [facility] Potassium 4.1 3.5 - 5.3 mmol/L LAB CHEMISTRY METHOD 12/03/2024 6:36 AM [facility] Chloride 101 98 - 107 mmol/L LAB CHEMISTRY METHOD 12/03/2024 6:36 AM [facility] Bicarbonate 29 21 - 32 mmol/L LAB CHEMISTRY METHOD 12/03/2024 6:36 AM [facility] Anion Gap 10 10 - 20 mmol/L LAB CHEMISTRY METHOD 12/03/2024 6:36 AM [facility] Urea Nitrogen 13 6 - 23 mg/dL LAB CHEMISTRY METHOD 12/03/2024 6:36 AM [facility] Creatinine 0.92 0.50 - 1.05 mg/dL LAB CHEMISTRY METHOD 12/03/2024 6:36 AM [facility] eGFR 61 >60 mL/min/1.7 3m*2 LAB CHEMISTRY METHOD 12/03/2024 6:36 AM [facility] Comment: Calculations of estimated GFR are performed using the 2020 CKD-EPI Study Refit equation without the race variable for the IDMS-Traceable creatinine methods. https://jasn.asnjournals.org/content//ASN.0518383250 Calcium 9.2 8.6 - 10.3 mg/dL LAB CHEMISTRY METHOD 12/03/2024 6:36 AM EDT [facility] Blood Venous blood specimen / Unknown Venipuncture / Unknown 12/03/2024 6:04 AM EDT 12/03/2024 6:12 AM EDT us Karl Mccormick MD LAB BLOOD ORDERABLES Final Resul t [facility] [address] [place] [address] * PCI OLE STENT- CORONARY (12/02/2024 1:00 PM EDT) 12/02/2024 12:2 4 PM EDT Narrative [facility] - 12/02/2024 2:32 PM EDT [facility], Loss Prevention Consultant [address] [address] Cardiovascular Catheterization Report Patient Name: ATIYA JHA Performing Physician: Zaira Howard MD Study Date: 12/02/2024 Verifying Physician: Zaira Howard MD MRN/PID: [id number] Crown Ironer/Co-Scrub: Ordering Provider: [id number] DANIELA PORTILLO Date of /Age: 1005/07/1940 / 84 years Crown Ironer: [id number] Xiomara Au MD Gender: F Fellow: Surgeon: Study: PCI - Percutaneous Coronary Intervention Additional Study: Coronary Arteriogram Indications: ATIYA JHA is a 85 year old female who presents with hypertension, dyslipidemia, prior percutaneous coronary intervention and a chest pain assessment of typical angina. Worsening angina. Stress test performed: No. CTA performed: No. Alden accessed: No. LVEF Assessed: No. Cardiac arrest: No. Cardiac surgical consult: Completed - cardiac surgery not recommended. Cardiovascular Instability: No Frailty status of patient entering lab: 5 = Mildly frail. Procedure Description: After infiltration with 2% Lidocaine, the right femoral artery was cannulated with a modified Seldinger technique. Subsequently a 6 Czech sheath was placed in the right femoral artery. Selective coronary catheterization was performed using a 6 Fr catheter(s) exchanged over a guide wire to cannulate the coronary arteries. Additional catheter(s) used to visualize the coronary arteries were: XB3.0. Multiple injections of contrast were made into the left coronary arteries with angiograms recorded in multiple projections. After completion of the procedure, femoral artery angiography was performed. This demonstrated a common femoral artery puncture appropriate for closure. A Vascade 6/7Fr vascular closure Device was placed per protocol. Coronary Angiography: The coronary circulation is right dominant. Left Anterior Descending Coronary Artery Distribution: The Left Anterior Descending artery is a medium-sized vessel. There is 99% stenosis in the ostial left anterior descending artery. Hemodynamically significant obstruction is noted in this vessel. There is evidence of instent restenosis in this segment. The devices advanced to the ostial LAD lesion were: a balloon was inflated for pre-dilation, Resolute Outlook 2.5x15 stent was deployed in the lesion a balloon was inflated for post-dilation. Residual stenosis is 0 %. Coronary Interventions: Angiography reveals a 99% stenosis of the ostial left anterior descending coronary artery. Pre-intervention DERICK flow was 3. Percutaneous coronary intervention was performed within the ostial left anterior descending. The vessel was pre-dilated using a compliant balloon 2.0 mm x 12 mm at 12 KELI. [place] Outlook drug-eluting stent 2.5 mm x 15 mm was advanced to the lesion and implanted at 12 KELI. The stent was post dilated using a non-compliant balloon 3.0 mm x 8 mm at 20 KELI. The stenosis was successfully reduced from 99% to 0%. Post-intervention DERICK flow was 3. Hemo Personnel: + +---------+ Name Duty + +---------+ Ann Howard MD, MD 1 + +---------+ Hemodynamic Pressures: +----+ + + + +---------+ Site Date Time Phase Name Systolic mmHg Diastolic mmHg Mean mmHg +----+ + + + +---------+ AO 12/02/2024 12:47:54 PM AIR REST 120 53 77 +----+ + + + +---------+ AO 12/02/2024 12:49:43 PM AIR REST 107 39 64 +----+ + + + +---------+ AO 12/02/2024 12:55:31 PM AIR REST 75 50 61 +----+ + + + +---------+ AO 12/02/2024 12:55:54 PM AIR REST 98 49 75 +----+ + + + +---------+ AO 12/02/2024 12:56:40 PM AIR REST 121 62 86 +----+ + + + +---------+ Cardiac Cath Post Procedure Notes: Post Procedure Diagnosis: OLE of LAD. Blood Loss: Estimated blood loss during the procedure was 3 mls. Specimens Removed: Number of specimen(s) removed: none. ____ CONCLUSIONS: 1. Left Anterior Descending Artery: is significantly obstructed. 2. Ostial LAD Lesion: The percent stenosis is 99%. 3. Ostial LAD Lesion: Instent Restenosis. 4. Ostial LAD Lesion: pre-dilation, Resolute Ananda 2.5x15 post-dilation : 0% residual stenosis. LAD: pre-procedure DERICK flow was 3(complete perfusion) and post- procedure DERICK flow was 3(complete perfusion). ICD 10 Codes: Angina pectoris, unspecified-I20.9 CPT Codes: Stent w angioplasty Left Anterior Descending single major Artery branch (PCI)-33006.LD; Coronary Angiography (LHC)-79408; Moderate Sedation Services 1st additional 15 minutes patient >5 years-[id number]; Moderate Sedation Services 2nd additional 15 minutes patient >5 years-[id number] Ann Howard MD Performing Physician Final Procedure Note Ann Howard MD - 12/02/[address] [facility], Loss Prevention Consultant [address] [place] [address] Cardiovascular Catheterization Report Patient Name: ATIYA JHA Performing Physician: Zaira Giordano MD Study Date: 12/02/2024 Verifying Physician: Zaira Giordano MD MRN/PID: [id number] Crown Ironer/Co-Scrub: Ordering Provider: [id number] PORTILLO Date of /Age: 1005/07/1940 / 84 years Crown Ironer: [id number] Kaiser Gender: F Fellow: Surgeon: Study: PCI - Percutaneous Coronary Intervention Additional Study: Coronary Arteriogram Indications: ATIYA JHA is a 85 year old female who presents with hypertension,dyslipidemia, prior percutaneous coronary intervention and a chest painassessment of typical angina. Worsening angina. Stress test performed: No. CTA performed: No. Alden accessed: No.LVEF Assessed: No. Cardiac arrest: No. Cardiac surgical consult: Completed - cardiac surgery not recommended. Cardiovascular Instability: No Frailty status of patient entering lab: 5 = Mildly frail. Procedure Description: After infiltration with 2% Lidocaine, the right femoral artery wascannulated with a modified Seldinger technique. Subsequently a 6 Frenchsheath was placed in the right femoral artery. Selective coronarycatheterization was performed using a 6 Fr catheter(s) exchanged over aguide wire to cannulate the coronary arteries. Additional catheter(s) used to visualize the coronary arteries were:XB3.0. Multiple injections of contrast were made into the left coronaryarteries with angiograms recorded in multiple projections. Aftercompletion of the procedure, femoral artery angiography was performed.This demonstrated a common femoral artery puncture appropriate forclosure. A Vascade 6/7Fr vascular closure Device was placed perprotocol. Coronary Angiography: The coronary circulation is right dominant. Left Anterior Descending Coronary Artery Distribution: The Left Anterior Descending artery is a medium-sized vessel. There is 99%stenosis in the ostial left anterior descending artery. Hemodynamicallysignificant obstruction is noted in this vessel. There is evidence ofinstent restenosis in this segment. The devices advanced to the ostial LADlesion were: a balloon was inflated for pre-dilation, Resolute Outlook [id number] was deployed in the lesion a balloon was inflated for post-dilation.Residual stenosis is 0 %. Coronary Interventions: Angiography reveals a 99% stenosis of the ostial left anterior descendingcoronary artery. Pre-intervention DERICK flow was 3. Percutaneous coronaryintervention was performed within the ostial left anterior descending. Thevessel was pre-dilated using a compliant balloon 2.0 mm x 12 mm at 12 KELI.[place] Outlook drug-eluting stent 2.5 mm x 15 mm was advanced to the lesionand implanted at 12 KELI. The stent was post dilated using a non-compliantballoon 3.0 mm x 8 mm at 20 KELI. The stenosis was successfully reducedfrom 99% to 0%. Post-intervention DERICK flow was 3. Hemo Personnel: + +---------+ Name Duty + +---------+ Ann Howard MD, MD 1 + +---------+ Hemodynamic Pressures: +----+ + + + +---------+ Site Date Time Phase Name Systolic mmHg Diastolic mmHg MeanmmHg +----+ + + + +---------+ ELLA 12/02/2024 12:47:54 PM AIR REST 120 53 77 +----+ + + + +---------+ AO 12/02/2024 12:49:43 PM AIR REST 107 39 64 +----+ + + + +---------+ AO 12/02/2024 12:55:31 PM AIR REST 75 50 61 +----+ + + + +---------+ AO 12/02/2024 12:55:54 PM AIR REST 98 49 75 +----+ + + + +---------+ AO 12/02/2024 12:56:40 PM AIR REST 121 62 86 +----+ + + + +---------+ Cardiac Cath Post Procedure Notes: Post Procedure Diagnosis: OLE of LAD. Blood Loss: Estimated blood loss during the procedure was 3mls. Specimens Removed: Number of specimen(s) removed: none. ____ CONCLUSIONS: 1. Left Anterior Descending Artery: is significantly obstructed. 2. Ostial LAD Lesion: The percent stenosis is 99%. 3. Ostial LAD Lesion: Instent Restenosis. 4. Ostial LAD Lesion: pre-dilation, Resolute Outlook 2.5x15 post-dilation :0% residual stenosis. LAD: pre-procedure DERICK flow was 3(completeperfusion) and post- procedure DERICK flow was 3(complete perfusion). ICD 10 Codes: Angina pectoris, unspecified-I20.9 CPT Codes: Stent w angioplasty Left Anterior Descending single major Artery branch(PCI)-99887.LD; Coronary Angiography (LHC)-63491; Moderate SedationServices 1st additional 15 minutes patient >5 years-[id number]; ModerateSedation Services 2nd additional 15 minutes patient >5 years-[id number] Ann Howard MD Performing Physician Final us Daniela Portillo SOCIAL SERVICE WORKER-GARAGE WORKER CV CARDIAC CATH PROCE DURES Final Result Performing Organization Address City/[facility]/ZIP Co de Phone Number [place] * (ABNORMAL) ACTIVATED CLOTTING TIME LOW (12/02/2024 12:50 PM EDT) [facility] POCT Activated Clotting Time Low Range >397(H) 83 - 199 sec 12/02/2024 12:58 PM EDT [facility] Comment: ABOVE LIMIT FOR DEVICE Target ACT range will vary based on the patient population, clinical status, and surgical intervention occurring. Blood Venous blood specimen / Unknown 12/02/2024 12:50 PM EDT 12/02/2024 12:58 PM EDT us Karl Mccormick MD LAB POINT OF CARE TE ST DOCKED DEVICE UNSOLICITED RESULTS Final Result Performing Organization Address [facility]/ZIP Co de Phone Number [facility] [address] [phone] * (ABNORMAL) Troponin I, High Sensitivity (11/30/2024 6:38 PM EDT) Troponin I, High Sensitivity 65(HH) 0 - 13 ng/L LAB IMMUNOASSAY METHOD 11/30/2024 7:21 PM EDT [facility] Blood Venous blood specimen / Unknown Venipuncture / Unknown 11/30/2024 6:38 PM EDT 11/30/2024 6:51 PM EDT Narrative [facility] - 11/30/2024 7:21 PM EDT Less than 99th percentile of normal range cutoff- Female and children under 18 years old <14 ng/L; Male <21 ng/L: Negative Repeat testing should be performed if clinically indicated. Female and children under 18 years old 14-50 ng/L; Male 21-50 ng/L: Consistent with possible cardiac damage and possible increased clinical risk. Serial measurements may help to assess extent of myocardial damage. >50 ng/L: Consistent with cardiac damage, increased clinical risk and myocardial infarction. Serial measurements may help assess extent of myocardial damage. NOTE: Children less than 1 year old may have higher baseline troponin levels and results should be interpreted in conjunction with the overall clinical context. NOTE: Troponin I testing is performed using a different testing methodology at [facility] than at other [facility]. Direct result comparisons should only be made within the same method. us Karl Mccormick MD LAB BLOOD ORDERABLES Final Resul t [facility] [address] [place] [address] * SST TOP (11/30/2024 9:27 AM EDT) Only the most recent of2 resultswithin the time period is included. Pathologist [facility] Extra Tube Hold for add-ons. 11/30/2024 11:01 AM EDT [facility] Comment:Auto resulted. Blood Venous blood specimen / Unknown 11/30/2024 9:27 AM EDT 11/30/2024 9:37 AM EDT us Karl Mccormick MD LAB BLOOD ORDERABLES Final Resul t [facility] [address] [place] [address] * (ABNORMAL) CBC and Auto Differential (11/30/2024 3:56 AM EDT) WBC 5.5 4.4 - 11.3 x10*3/uL LAB HEMATOLOGY METHOD 11/30/2024 4:03 AM EDT [facility] nRBC 0.0 0.0 - 0.0 /100 WBCs LAB HEMATOLOGY METHOD 11/30/2024 4:03 AM EDT [facility] RBC 3.59(L) 4.00 - 5.20 x10*6/uL LAB HEMATOLOGY METHOD 11/30/2024 4:03 AM EDT [facility] Hemoglobin 11.3(L) 12.0 - 16.0 g/dL LAB HEMATOLOGY METHOD 11/30/2024 4:03 AM EDT [facility] Hematocrit 34.1(L) 36.0 - 46.0 % LAB HEMATOLOGY METHOD 11/30/2024 4:03 AM [facility] MCV 95 80 - 100 fL LAB HEMATOLOGY METHOD 11/30/2024 4:03 AM EDT [facility] MCH 31.5 26.0 - 34.0 pg LAB HEMATOLOGY METHOD 11/30/2024 4:03 AM [facility] MCHC 33.1 32.0 - 36.0 g/dL LAB HEMATOLOGY METHOD 11/30/2024 4:03 AM EDT [facility] RDW 13.2 11.5 - 14.5 % LAB HEMATOLOGY METHOD 11/30/2024 4:03 AM [facility] Platelets 147(L) 150 - 450 x10*3/uL LAB HEMATOLOGY METHOD 11/30/2024 4:03 AM EDT [facility] Neutrophils % 49.6 40.0 - 80.0 % LAB HEMATOLOGY METHOD 11/30[facility]2024 4:[facility] Immature Granulocytes %, Automated 0.2 0.0 - 0.9 % LAB HEMATOLOGY METHOD 11/30/2024 4:03 AM EDT [facility] Comment:Immature Granulocyte Count (IG) includes promyelocytes, myelocytes and metamyelocytes but does not include bands. Percent differential counts (%) should be interpreted in the context of the absolute cell counts (cells/UL). Lymphocytes % 33.6 13.0 - 44.0 % LAB HEMATOLOGY METHOD 11/30/2024 4:03 AM [facility] Monocytes % 12.4 2.0 - 10.0 % LAB HEMATOLOGY METHOD 11/30/2024 4:03 AM [facility] Eosinophils % 3.5 0.0 - 6.0 % LAB HEMATOLOGY METHOD 11/30/2024 4:03 AM [facility] Basophils % 0.7 0.0 - 2.0 % LAB HEMATOLOGY METHOD 11/30/2024 4:03 AM [facility] Neutrophils Absolute 2.72 1.60 - 5.50 x10*3/uL LAB HEMATOLOGY METHOD 11/30/2024 4:03 AM [facility] Comment:Percent differential counts (%) should be interpreted in the context of the absolute cell counts (cells/uL). Immature Granulocytes Absolute, Automated 0.01 0.00 - 0.50 x10*3/uL LAB HEMATOLOGY METHOD 11/30/2024 4:03 AM [facility] Lymphocytes Absolute 1.84 0.80 - 3.00 x10*3/uL LAB HEMATOLOGY METHOD 11/30/2024 4:03 AM [facility] Monocytes Absolute 0.68 0.05 - 0.80 x10*3/uL LAB HEMATOLOGY METHOD 11/30/2024 4:03 AM [facility] Eosinophils Absolute 0.19 0.00 - 0.40 x10*3/uL LAB HEMATOLOGY METHOD 11/30/2024 4:03 AM [facility] Basophils Absolute 0.04 0.00 - 0.10 x10*3/uL LAB HEMATOLOGY METHOD 11/30/2024 4:03 AM [facility] Blood Venous blood specimen / Unknown Venipuncture / Unknown 11/30/2024 3:56 AM EDT 11/30/2024 3:59 AM EDT Irineo Laughlin SOCIAL SERVICE WORKER-GARAGE WORKER LAB BLOOD ORDERABLES Fin al Result [facility] [address] [place] [address] * TSH with reflex to Free T4 if abnormal (11/30/2024 3:56 AM EDT) [facility] Thyroid Stimulating Hormone 1.43 0.44 - 3.98 mIU/L LAB IMMUNOASSAY METHOD 11/30/2024 4:34 AM EDT [facility] Blood Venous blood specimen / Unknown Venipuncture / Unknown 11/30/2024 3:56 AM EDT 11/30/2024 3:59 AM EDT [facility] - 11/30/2024 4:34 AM EDT TSH testing is performed using different testing methodology at [facility] than at other [facility]. Direct result comparisons should only be made within the same method. Irineo Laughlin SOCIAL SERVICE WORKER-[facility] LAB BLOOD ORDERABLES Fin al Result [facility] [address] [place] [address] * (ABNORMAL) Coagulation Screen (11/30/2024 3:56 AM EDT) [facility] Protime 11.3 9.8 - 12.4 seconds LAB COAGULATION METHOD 11/30/2024 5:15 AM EDT [facility] INR 1.0 0.9 - 1.1 LAB COAGULATION METHOD 11/30/2024 5:15 AM EDT [facility] aPTT 129(HH) 26 - 36 seconds LAB COAGULATION METHOD 11/30/2024 5:15 AM EDT [facility] Blood Venous blood specimen / Unknown Venipuncture / Unknown 11/30/2024 3:56 AM EDT 11/30/2024 3:59 AM EDT [facility] - 11/30/2024 5:15 AM EDT The APTT is no longer used for monitoring Unfractionated Heparin Therapy. For monitoring Heparin Therapy, use the Heparin Assay. Irineo Laughlin SOCIAL SERVICE WORKER-GARAGE WORKER LAB BLOOD ORDERABLES Fin al Result [facility] [address] [place] [address] * (ABNORMAL) Comprehensive Metabolic Panel (11/30/2024 3:56 AM EDT) Glucose 107(H) 74 - 99 mg/dL LAB CHEMISTRY METHOD 11/30/2024 4:22 AM EDT [facility] Sodium 138 136 - 145 mmol/L LAB CHEMISTRY METHOD 11/30/2024 4:22 AM T [facility] Potassium 3.8 3.5 - 5.3 mmol/L LAB CHEMISTRY METHOD 11/30/2024 4:22 AM T [facility] Chloride 104 98 - 107 mmol/L LAB CHEMISTRY METHOD 11/30/2024 4:22 AM T [facility] Bicarbonate 27 21 - 32 mmol/L LAB CHEMISTRY METHOD 11/30/2024 4:22 AM [facility] Anion Gap 11 10 - 20 mmol/L LAB CHEMISTRY METHOD 11/30/2024 4:22 AM [facility] Urea Nitrogen 16 6 - 23 mg/dL LAB CHEMISTRY METHOD 11/30/2024 4:22 AM [facility] Creatinine 0.71 0.50 - 1.05 mg/dL LAB CHEMISTRY METHOD 11/30/2024 4:22 AM [facility] eGFR 83 >60 mL/min/1. 73m*2 LAB CHEMISTRY METHOD 11/30/2024 4:22 AM [facility] Comment: Calculations of estimated GFR are performed using the 2020 CKD-EPI Study Refit equation without the race variable for the IDMS-Traceable creatinine methods. https://jasn.asnjournals.org/content/early/ASN.8820088672 Calcium 9.3 8.6 - 10.3 mg/dL LAB CHEMISTRY METHOD 11/30/2024 4:22 AM EDT [facility] Albumin 3.8 3.4 - 5.0 g/dL LAB CHEMISTRY METHOD 11/30/2024 4:22 AM EDT [facility] Alkaline Phosphatase 42 33 - 136 U/L LAB CHEMISTRY METHOD 11/30/2024 4:22 AM EDT [facility] Total Protein 6.0(L) 6.4 - 8.2 g/dL LAB CHEMISTRY METHOD 11/30/2024 4:22 AM EDT [facility] AST 15 9 - 39 U/L LAB CHEMISTRY METHOD 11/30/2024 4:22 AM EDT [facility] Bilirubin, Total 0.8 0.0 - 1.2 mg/dL LAB CHEMISTRY METHOD 11/30/2024 4:22 AM EDT [facility] ALT 10 7 - 45 U/L LAB CHEMISTRY METHOD 11/30/2024 4:22 AM EDT [facility] Comment:Patients treated wit h Sulfasalazine may generate falsely decreased results for ALT. Blood Venous blood specimen / Unknown Venipuncture / Unknown 11/30/2024 3:56 AM EDT 11/30/2024 3:59 AM EDT us Irineo Laughlin APRN-GARAGE WORKER LAB BLOOD ORDERABLES Fin al Result Performing Organization Address City/[facility]/ZIP Co de Phone Number [facility] [address] [place] [address] * Urine Slater Tube (11/29/2024 10:08 PM EDT) Extra Tube Hold for add-ons. 11/30/2024 9:01 AM EDT [facility] Comment:Auto resulted. Urine Urine specimen / Unknown 11/29/2024 10:08 PM EDT 11/29/2024 10:32 PM EDT us Jeovanny Goodman MD LAB BLOOD ORDERABLES Final R esult Performing Organization Address City/[facility]/ZIP Co de Phone Number [facility] [address] [place] [address] * (ABNORMAL) Microscopic Only, Urine (11/29/2024 10:08 PM EDT) WBC, Urine >50(A) 1-5, NONE /HPF 11/29/2024 10:37 PM EDT [facility] RBC, Urine 6-10(A) NONE, 1-2, 3-5 /HPF 11/29/2024 10:37 PM EDT [facility] Squamous Epithelial Cells, Urine 1-9 (SPARSE) Reference range not established. /HPF 11/29/2024 10:37 PM EDT [facility] Bacteria, Urine 1+(A) NONE SEEN /HPF 11/29/2024 10:37 PM EDT [facility] Mucus, Urine FEW Reference range not established. /LPF 11/29/2024 10:37 PM EDT [facility] Urine Urine specimen / Unknown Non-blood Collection / Unknown 11/29/2024 10:08 PM EDT 11/29/2024 10:30 PM EDT us Irineo Laughlin SOCIAL SERVICE WORKER-GARAGE WORKER LAB URINE ORDERABLES Fin al Result [facility] [address], [place] [id number] * (ABNORMAL) Urinalysis with Reflex Microscopic (11/29/2024 10:08 PM EDT) Color, Urine Yellow Light-Yellow , Yellow, Dark-Yellow 11/29/2024 10:37 PM EDT [facility] Appearance, Urine Clear Clear 11/29/2024 10:37 PM T [facility] Specific [place], Urine 1.021 1.005 - 1.035 11/29/2024 10:37 PM T [facility] pH, Urine 5.5 5.0, 5.5, 6.0, 6.5, 7.0, 7.5, 8.0 11/29/2024 10:37 PM EDT [facility] Protein, Urine NEGATIVE NEGATIVE, 10 (TRACE), 20 (TRACE) mg/dL 11/29/2024 10:37 PM EDT [facility] Glucose, Urine Normal Normal mg/dL 11/29/2024 10:37 PM EDT [facility] Blood, Urine 0.1 (1+)(A) NEGATIVE mg/dL 11/29/2024 10:37 PM EDT [facility] Ketones, Urine NEGATIVE NEGATIVE mg/dL 11/29/2024 10:37 PM EDT [facility] Bilirubin, Urine NEGATIVE NEGATIVE mg/dL 11/29/2024 10:37 PM EDT [facility] Urobilinogen, Urine Normal Normal mg/dL 11/29/2024 10:37 PM EDT [facility] Nitrite, Urine NEGATIVE NEGATIVE 11/29/2024 10:37 PM EDT [facility] Leukocyte Esterase, Urine 500 Michelle/uL(A) NEGATIVE 11/29/2024 10:37 PM EDT [facility] Urine Urine specimen / Unknown Non-blood Collection / Unknown 11/29/2024 10:08 PM EDT 11/29/2024 10:30 PM EDT us Irineo Laughlin SOCIAL SERVICE WORKER-GARAGE WORKER LAB URINE ORDERABLES Fin al Result [facility] [address] [place] [address] * CT chest wo IV contrast (11/29/2024 5:38 PM EDT) Anatomical Region Laterality Modality Thoracic, Chest Computed Tomogra phy 11/30/2024 8:57 AM EDT 11/30/2024 8:57 AM EDT Impressions 11/30/2024 8:56 AM EDT 1. Normal caliber ascending aorta with the only ascending aortic calcifications noted at the sino-tubular junction. 2. There is a noncalcified parenchymal right lower lobe pulmonary nodule measuring 6 mm which will warrant follow-up per Fleischner guidelines. There is also pleural-based opacity the which has a more flattened appearance though does have convex margins. It will also warrants attention at follow-up. 3. Cholelithiasis. No convincing CT evidence of acute cholecystitis within limits of this exam. MACRO: Incidental Finding: A solid non-calcified pulmonary nodule measuring 6-8 mm . (-YCF-) Instructions: Consider follow up non contrast chest CT at 6-12 months, then consider CT chest at 18-24 months. (Alvarado Cordero al., Guidelines for management of incidental pulmonary nodules detected on CT images: From the Fleischner Society 2017, Radiology. 2017 Efren;284 (1):228-243.) [email or web address] Signed by: Jonas Baxter 11/30/2024 8:56 AM Dictation workstation: [id number] Narrative 11/30/2024 8:56 AM EDT Interpreted By: Jonas Baxter, STUDY: CT CHEST WO IV CONTRAST; 11/29/2024 5:38 pm INDICATION: Signs/Symptoms:pre-op cardiac surgery; assess ascending for size and atherosclerosis. COMPARISON: None. ACCESSION NUMBER(S): [id number] ORDERING CLINICIAN: IRINEO LAUGHLIN TECHNIQUE: Helical data acquisition of the chest was obtained without IV contrast material. Images were reformatted in axial, coronal, and sagittal planes. FINDINGS: LUNGS AND AIRWAYS: The trachea and central airways are patent. No endobronchial lesion. In the posterolateral right lower lobe there is a 6 mm noncalcified round pulmonary nodule. In the posteromedial right lower lobe there is a pleural-based opacity with smooth convex margins with broad-based pleural surface measuring 10 mm and orthogonal measurement measuring 5 mm. There are bandlike opacities in both lung bases likely areas of postinflammatory scarring. There is no pleural effusion or pneumothorax or airspace opacity. It is MEDIASTINUM AND JOSE CRUZ, LOWER NECK AND AXILLA: The visualized thyroid gland is within normal limits. There is no pathologic enlargement of thoracic lymph nodes. There is a small hiatus hernia. The esophagus is otherwise unremarkable. HEART AND VESSELS: The thoracic aorta is normal in course and caliber. There are moderate atherosclerotic calcifications of the aortic arch and descending aorta. The only ascending aortic calcifications noted are those at the sino-tubular junction. There are calcifications on the aortic valve. The caliber of the ascending aorta is 3.2 cm. Main pulmonary artery and its branches are normal in caliber. There are severe coronary atherosclerotic calcifications. The study is not optimized for evaluation of coronary arteries. The cardiac chambers are not enlarged. No evidence of pericardial effusion. UPPER ABDOMEN: Dependent layering calcified gallstones. Atherosclerotic calcifications in the aorta and splenic artery. Otherwise unremarkable. CHEST WALL AND OSSEOUS STRUCTURES: Calcified nodules in both breasts are likely fibroadenomas. Chest wall soft tissues otherwise unremarkable. There are degenerative changes in the thoracic spine. There is no convincing evidence for thoracic aggressive osteolytic or osteoblastic lesion. Procedure Note Jonas Baxter MD - 11/30/2024 Interpreted By: Jonas Baxter, STUDY: CT CHEST WO IV CONTRAST; 11/29/2024 5:38 pm INDICATION: Signs/Symptoms:pre-op cardiac surgery; assess ascending for size and atherosclerosis. COMPARISON: None. ACCESSION NUMBER(S): [id number] ORDERING CLINICIAN: IRINEO LAUGHLIN TECHNIQUE: Helical data acquisition of the chest was obtained without IV contrast material. Images were reformatted in axial, coronal, and sagittal planes. FINDINGS: LUNGS AND AIRWAYS: The trachea and central airways are patent. No endobronchial lesion. In the posterolateral right lower lobe there is a 6 mm noncalcified round pulmonary nodule. In the posteromedial right lower lobe there is a pleural-based opacity with smooth convex margins with broad-based pleural surface measuring 10 mm and orthogonal measurement measuring 5 mm. There are bandlike opacities in both lung bases likely areas of postinflammatory scarring. There is no pleural effusion or pneumothorax or airspace opacity. It is MEDIASTINUM AND JOSE CRUZ, LOWER NECK AND AXILLA: The visualized thyroid gland is within normal limits. There is no pathologic enlargement of thoracic lymph nodes. There is a small hiatus hernia. The esophagus is otherwise unremarkable. HEART AND VESSELS: The thoracic aorta is normal in course and caliber. There are moderate atherosclerotic calcifications of the aortic arch and descending aorta. The only ascending aortic calcifications noted are those at the sino-tubular junction. There are calcifications on the aortic valve. The caliber of the ascending aorta is 3.2 cm. Main pulmonary artery and its branches are normal in caliber. There are severe coronary atherosclerotic calcifications. The study is not optimized for evaluation of coronary arteries. The cardiac chambers are not enlarged. No evidence of pericardial effusion. UPPER ABDOMEN: Dependent layering calcified gallstones. Atherosclerotic calcifications in the aorta and splenic artery. Otherwise unremarkable. CHEST WALL AND OSSEOUS STRUCTURES: Calcified nodules in both breasts are likely fibroadenomas. Chest wall soft tissues otherwise unremarkable. There are degenerative changes in the thoracic spine. There is no convincing evidence for thoracic aggressive osteolytic or osteoblastic lesion. IMPRESSION: 1. Normal caliber ascending aorta with the only ascending aortic calcifications noted at the sino-tubular junction. 2. There is a noncalcified parenchymal right lower lobe pulmonary nodule measuring 6 mm which will warrant follow-up per Fleischner guidelines. There is also pleural-based opacity the which has a more flattened appearance though does have convex margins. It will also warrants attention at follow-up. 3. Cholelithiasis. No convincing CT evidence of acute cholecystitis within limits of this exam. MACRO: Incidental Finding: A solid non-calcified pulmonary nodule measuring 6-8 mm . (-YCF-) Instructions: Consider follow up non contrast chest CT at 6-12 months, then consider CT chest at 18-24 months. (Alvarado Tanner et al., Guidelines for management of incidental pulmonary nodules detected on CT images: From the Fleischner Society 2017, Radiology. 2017 Efren;284 (1):228-243.) [email or web address] Signed by: Jonas Baxter 11/30/2024 8:56 AM Dictation workstation: [id number] Irineo Laughlin SOCIAL SERVICE WORKER-GARAGE WORKER IMG CT PROCEDURES Final Result * Lower extremity vein mapping bilateral (11/29/2024 5:34 PM EDT) Anatomical Region Laterality Modality Lower Extremities Ultrasound 11/30/2024 8:40 AM EDT 11/30/2024 8:40 AM EDT Impressions 11/30/2024 8:39 AM EDT Sonographic vein mapping procedure as detailed above MACRO: None Signed by: Jonas Baxter 11/30/2024 8:39 AM Dictation workstation: [id number] Narrative 11/30/2024 8:39 AM EDT Interpreted By: Jonas Baxter, STUDY: [facility] [place]OWER EXTREMITY VEIN MAPPING BILATERAL; ; 11/29/2024 5:34 pm INDICATION: Signs/Symptoms:pre-op CABG. 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 ACCESSION NUMBER(S): [id number] ORDERING CLINICIAN: IRINEO LAUGHLIN TECHNIQUE: Sonographic lower extremity saphenous vein mapping procedure prior to coronary bypass graft FINDINGS: Intermittent diameter measurements are given below measures in cm.: Right great saphenous vein above knee: Proximal 0.38 x 0.59; mid 0.28 x 0.41; distal 0.24 x 0.31 Right great saphenous vein below knee: Proximal 0.35 x 0.40; mid 0.30 x 0.34; distal 0.23 x 0.33 Right lesser saphenous Vein: Proximal 0.08 x 0.10; mid 0.14 x 0.09; distal 0.10 x 0.19 Left great saphenous vein above knee: Proximal 0.81 x 1.00; mid 0.31 x 0.35; distal 0.30 x 0.29 Left great saphenous vein below knee: Proximal 0.25 x 0.46; mid 0.27 x 0.37; distal 0.13 x 0.16 Left lesser saphenous Vein: Proximal 0.23 x 0.30; mid 0.10 x 0.11; distal 0.17 x 0.26 Procedure Note Jonas Baxter MD - 11/30/2024 Interpreted By: Jonas Baxter, STUDY: [facility] LOWER EXTREMITY VEIN MAPPING BILATERAL; ; 11/29/2024 5:34 pm INDICATION: Signs/Symptoms:pre-op CABG. 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 ACCESSION NUMBER(S): [id number] ORDERING CLINICIAN: IRINEO LAUGHLIN TECHNIQUE: Sonographic lower extremity saphenous vein mapping procedure prior to coronary bypass graft FINDINGS: Intermittent diameter measurements are given below measures in cm.: Right great saphenous vein above knee: Proximal 0.38 x 0.59; mid 0.28 x 0.41; distal 0.24 x 0.31 Right great saphenous vein below knee: Proximal 0.35 x 0.40; mid 0.30 x 0.34; distal 0.23 x 0.33 Right lesser saphenous Vein: Proximal 0.08 x 0.10; mid 0.14 x 0.09; distal 0.10 x 0.19 Left great saphenous vein above knee: Proximal 0.81 x 1.00; mid 0.31 x 0.35; distal 0.30 x 0.29 Left great saphenous vein below knee: Proximal 0.25 x 0.46; mid 0.27 x 0.37; distal 0.13 x 0.16 Left lesser saphenous Vein: Proximal 0.23 x 0.30; mid 0.10 x 0.11; distal 0.17 x 0.26 IMPRESSION: Sonographic vein mapping procedure as detailed above MACRO: None Signed by: Jonas Baxter 11/30/2024 8:39 AM Dictation workstation: [id number] Irineo Laughlin SOCIAL SERVICE WORKER-GARAGE WORKER CV VASCULAR PROCEDURES F inal Result * Carotid duplex bilateral (11/29/2024 5:34 PM EDT) Anatomical Region Laterality Modality Neck Ultrasound 11/30/2024 8:24 AM EDT 11/30/2024 8:24 AM EDT Impressions 11/30/2024 8:23 AM EDT Positive for calcific plaque bilaterally of both proximal internal carotid arteries. However no peak systolic velocity elevation to suggest significant stenosis. Less than 50% luminal narrowing. The velocity criteria are extrapolated from diameter data as defined by the Society of Radiologists in Ultrasound Consensus Conference Radiology 2003; 229;340-346. MACRO: None Signed by: Jonas Baxter 11/30/2024 8:23 AM Dictation workstation: [id number] Narrative 11/30/2024 8:23 AM EDT Interpreted By: Jonas Baxter, STUDY: [facility] [place] CAROTID ARTERY DUPLEX BILATERAL; 11/29/2024 5:34 pm INDICATION: Signs/Symptoms:pre-op cardiac surgery. ,Z01.810 Encounter for preprocedural cardiovascular examination,Z09 Encounter for follow-up examination after completed treatment for conditions other than malignant neoplasm COMPARISON: None. ACCESSION NUMBER(S): [id number] ORDERING CLINICIAN: IRINEO LAUGHLIN TECHNIQUE: Vascular ultrasound of the extracranial carotid system was performed bilaterally. Slater scale, color Doppler and spectral Doppler waveform analysis was performed. FINDINGS: RIGHT: On the right there is calcific plaque at the proximal right internal carotid artery. There is no peak systolic velocity elevation associated with this finding.. The peak systolic velocities are as follows: RIGHT SIDE PEAK SYSTOLIC VELOCITY TABLE: CCA 81.7 cm/s. ICA 91.0 cm. ECA 143.2 cm/s. The ratio of the peak systolic velocity of the right ICA/CCA is 1.1. RIGHT VERTEBRAL ARTERY: Antegrade flow LEFT: On the left there is calcific plaque at the proximal internal carotid artery without substantial luminal narrowing or peak systolic velocity elevation.. The peak systolic velocities are as follows: LEFT SIDE PEAK SYSTOLIC VELOCITY TABLE: CCA 80.3 cm/s,17.7 cm/s. ICA 153.3. ECA 73.6 cm/s. The ratio of the peak systolic velocity of the left ICA/CCA is 1.9. LEFT VERTEBRAL ARTERY: Antegrade flow Procedure Note Jonas Baxter MD - 11/30/2024 Interpreted By: Jonas Baxter, STUDY: [facility] [place] CAROTID ARTERY DUPLEX BILATERAL; 11/29/2024 5:34 pm INDICATION: Signs/Symptoms:pre-op cardiac surgery. ,Z01.810 Encounter for preprocedural cardiovascular examination,Z09 Encounter for follow-up examination after completed treatment for conditions other than malignant neoplasm COMPARISON: None. ACCESSION NUMBER(S): [id number] ORDERING CLINICIAN: IRINEO LAUGHLIN TECHNIQUE: Vascular ultrasound of the extracranial carotid system was performed bilaterally. Slater scale, color Doppler and spectral Doppler waveform analysis was performed. FINDINGS: RIGHT: On the right there is calcific plaque at the proximal right internal carotid artery. There is no peak systolic velocity elevation associated with this finding.. The peak systolic velocities are as follows: RIGHT SIDE PEAK SYSTOLIC VELOCITY TABLE: CCA 81.7 cm/s. ICA 91.0 cm. ECA 143.2 cm/s. The ratio of the peak systolic velocity of the right ICA/CCA is 1.1. RIGHT VERTEBRAL ARTERY: Antegrade flow LEFT: On the left there is calcific plaque at the proximal internal carotid artery without substantial luminal narrowing or peak systolic velocity elevation.. The peak systolic velocities are as follows: LEFT SIDE PEAK SYSTOLIC VELOCITY TABLE: CCA 80.3 cm/s,17.7 cm/s. ICA 153.3. ECA 73.6 cm/s. The ratio of the peak systolic velocity of the left ICA/CCA is 1.9. LEFT VERTEBRAL ARTERY: Antegrade flow IMPRESSION: Positive for calcific plaque bilaterally of both proximal internal carotid arteries. However no peak systolic velocity elevation to suggest significant stenosis. Less than 50% luminal narrowing. The velocity criteria are extrapolated from diameter data as defined by the Society of Radiologists in Ultrasound Consensus Conference Radiology 2003; 229;340-346. MACRO: None Signed by: Jonas Baxter 11/30/2024 8:23 AM Dictation workstation: [id number] us Irineo Laughlin SOCIAL SERVICE WORKER-GARAGE WORKER CV VASCULAR PROCEDURES F inal Result * Cardiac Catheterization - Onbase Scan (11/28/2024) Narrative 11/28/2024 Ordered by an unspecified provider. us Generic Provider Scanning CV CARDIAC CATH PROCED URES Final Result * OUTSIDE IMAGING SCAN (11/25/2024) Anatomical Region Laterality Modality Other Narrative 11/25/2024 Ordered by an unspecified provider. us Generic Provider Scanning OUTSIDE SCAN Final Result * Echocardiogram (11/25/2024) Narrative 11/25/2024 Ordered by an unspecified provider. us Generic Provider Scanning CV ECHO PROCEDURES Fin al Result from Last 3 Months Insurance [facility] MEDICARE [employer] [place] MEDICARE Advance Directives For more information, please contact: [phone] (Available ) Documents on File Type Date Recorded Patient Top Dyeing Machine Tender Expl anation Healthcare Power of Atty 12/05/2024 12:00 AM * Full Code (Latest Code Status on File) Date Activated Date Inactivated Comments 11/29/2024 2:58 PM Question Answer Comments Plan of Care: Code Status Discussion Completed Decision Maker: Patient Healthcare Agents on File Name Relationship Healthcare Agent [facility] Communication Cheyenne Garcia Daughter Health Care Agent [id number] (Mobile) Chay Jha Son [facility] C are Agent Care Teams Engraving Press Operator Relationship Specialty Start Date End Date Danis [place] [address] PCP - General Internal Medicine 11/29/24
--- OUTSIDE RECORDS SUMMARY | 2025-02-13 12:08 | XMS_ITS | Encounter Summary ---
Author Organization [facility] Address [address] [place] [address] Phone Care Team Providers Care Ring Rolling Machine Operator Name Role Phone Danis Huang DO Primary Care Provider [phone] Danis Huang DO Primary Care Provider [phone] Xochitl Knox RN Unavailable Unavailable Encounter Details Date Type Department Care Team (Late st Contact Info) Description 11/25/2024 Scanned Document [facility] [address] [place] [address] Scanning, Generic Provider Social History Tobacco Use Types Packs/Day Years Used Date Smoking Tobacco: Never Smokeless Tobacco: Never Alcohol Use Standard Drinks/Week Comments Yes 0 (1 standard drink = 0.6 oz pur e alcohol) social [facility] Utilities Answer Date Recorded In the past 12 months has [facility] [employer], [employer], oil, or water [employer] threatened to shut off services in your [...] any time in the past 12 m [facility], were you homeless or living [...] suspected to have Coronavirus/COVID-19? No / Unsure 10/26/2024 2:48 PM EDT documented as of this encounter Plan of Treatment Upcoming Encounters Date Type Department Care Team (Late st Contact Info) Description 04/07/2025 10:30 AM EDT Office Visit [facility] [address] [place] [address] Xiomara Au MD [address] [place] [address] documented as of this encounter Procedures Procedure Name Priority Date/Time Associated Diagnosis Comments OUTSIDE IMAGING SCAN 11/25/2024 ECHOCARDIOGRAM 11/25/2024 documented in this encounter Results * Echocardiogram (11/25/2024) Narrative 11/25/2024 Ordered by an unspecified provider. us Generic Provider Scanning CV ECHO PROCEDURES Fin al Result * OUTSIDE IMAGING SCAN (11/25/2024) Anatomical Region Laterality Modality Other Narrative 11/25/2024 Ordered by an unspecified provider. us Generic Provider Scanning OUTSIDE SCAN Final Result documented in this encounter Visit Diagnoses Not on filedocumented in this encounter Additional Health Concerns Assessment Noted Time A fall risk assessment has been complete d for the patient 10/26/2024 3:12 PM EDT documented as of this encounter Care Teams Ring Rolling Machine Operator Relationship Specialty Start Date End Date Danis Huang DO PCP - General Internal Medicine 11/10/23 11/28/24 Danis [place] [address] PCP - General Internal Medicine 11/29/24 Xochitl Knox RN Care Section Forest Fire Warden 12/05/24 01/11/25 documented as of this encounter
--- OUTSIDE RECORDS SUMMARY | 2025-02-13 12:08 | XMS_ITS | Encounter Summary ---
Author Organization [facility] Address [address] [place] [address] Phone Care Team Providers Care Wrapper Layer And Examiner Soft Work Name Role Phone Danis Huang DO Primary Care Provider [phone] Danis Huang DO Primary Care Provider [phone] Danis Huang DO Primary Care Provider [phone] Xochitl Knox RN Unavailable Unavailable Encounter Details Date Type Department Care Team (Late st Contact Info) Description 12/03/2022 Orders Only [facility] LEGACY [address] [place] [address] Conversion, Onbase Social History Tobacco Use Types Packs/Day Years Used Date Smoking Tobacco: Never Assessed Comments Unknown Sex and Gender Information Value Date Recorded Sex Assigned at Not on file Legal Sex Female 1:24 PM EST Gender Identity Not on file Sexual Orientation Not on file documented as of this encounter Plan of Treatment Upcoming Encounters Date Type Department Care Team (Late st Contact Info) Description 04/07/2025 10:30 AM EDT Office Visit [facility] [address] [facility] [address] [place] [address] Xiomara Au MD [address] [facility] [address] [place] [address] Scheduled Orders Name Type Priority Associated Diagnoses Orde r Schedule OUTSIDE LAB SCAN Lab Ordered: 12/03/2022 documented as of this encounter Visit Diagnoses Not on filedocumented in this encounter Care Teams Wrapper Layer And Examiner Soft Work Relationship Specialty Start Date End Date Danis Huang DO PCP - General 04/16/21 11/09/23 Danis Huang DO PCP - General Internal Medicine 11/10/23 11/28/24 [place] [address] [place], [place] [address] [address] PCP - General Internal Medicine 11/29/24 Xochitl Knox, endodontic assistantAssociate Software Engineer 12/05/24 01/11/25 documented as of this encounter
--- OUTSIDE RECORDS SUMMARY | 2025-02-13 12:08 | XMS_ITS | Encounter Summary ---
Author Organization [facility] Address [address] [place] [address] Phone Care Team Providers Care Shotblast Operator Name Role Phone Danis Huang DO Primary Care Provider [phone] Danis Huang DO Primary Care Provider [phone] Danis Huang DO Primary Care Provider [phone] Xochitl Knox RN Unavailable Unavailable Encounter Details Date Type Department Care Team (Late st Contact Info) Description 03/11/2023 Scanned Document [facility] LEGACY [address] [place] [address] Conversion, Onbase Social History Tobacco Use Types [...] Description 04/07/2025 10:30 AM EDT Office Visit [facility] [address] [facility] [address] [place] [address] Xiomara Au MD [address] [facility] [address] [place] [address] documented as of this encounter Procedures Procedure Name Priority Date/Time Associated Diagnosis Comments OUTSIDE IMAGING SCAN 03/11/2023 documented in this encounter Results * OUTSIDE IMAGING SCAN (03/11/2023) Anatomical Region Laterality Modality Other Narrative 03/11/2023 Ordered by an unspecified provider. us Onbase Conversion OUTSIDE SCAN Final Result documented in this encounter Visit Diagnoses Not on filedocumented in this encounter Care Teams Shotblast Operator Relationship Specialty Start Date End Date Danis Huang DO PCP - General 04/16/21 11/09/23 Danis Huang DO PCP - General Internal Medicine 11/10/23 11/28/24 Danis Huang DO [address] [place] [address] PCP - General Internal Medicine 11/29/24 Xochitl Knox, industrial engineeringFire Extinguisher Technician 12/05/24 01/11/25 documented as of this encounter
--- OUTSIDE RECORDS SUMMARY | 2025-02-13 12:08 | XMS_ITS | Encounter Summary ---
Author Organization [place] [facility] Address [address] [place] [address] Phone Care Team Providers Care Marine Gear Keeper Name Role Phone Danis Huang DO Primary Care Provider [phone] Danis Huang DO Primary Care Provider [phone] Danis Huang DO Primary Care Provider [phone] Xochitl Knox RN Unavailable Unavailable Encounter Details Date Type Department Care Team (Late st Contact Info) Description 10/17/2021 Orders Only [facility] LEGACY [address] [place] [address] Conversion, Onbase Social History Tobacco Use Types [...] Description 04/07/2025 10:30 AM EDT Office Visit [facility] [address] [facility] [address] [place] [address] Xiomara Au MD [address] [facility] [address], [address] [place] [address] Scheduled Orders Name Type Priority Associated Diagnoses Orde r Schedule OUTSIDE LAB SCAN Lab Ordered: 10/17/2021 documented as of this encounter Visit Diagnoses Not on filedocumented in this encounter Care Teams Marine Gear Keeper Relationship Specialty Start Date End Date Danis Huang DO PCP - General 04/16/21 11/09/23 Danis Huang DO PCP - General Internal Medicine 11/10/23 11/28/24 [place] [address] [place], [place] [address] [place] [address] PCP - General Internal Medicine 11/29/24 Xochitl Knox, emergency service restorerTechnical Fellow 12/05/24 01/11/25 documented as of this encounter
--- OUTSIDE RECORDS SUMMARY | 2025-02-13 12:08 | XMS_ITS | Encounter Summary ---
Author Organization [facility] Address [address] [place] [address] Phone Care Team Providers Care Vibrator Operator Name Role Phone Danis Huang DO Primary Care Provider [phone] Danis Huang DO Primary Care Provider [phone] Danis Huang DO Primary Care Provider [phone] Xochitl Knox RN Unavailable Unavailable Encounter Details Date Type Department Care Team (Late st Contact Info) Description 01/16/2023 Orders Only [email or web address] LEGACY [address] [place] [address] Conversion, Onbase Social History Tobacco Use Types [...] Description 04/07/2025 10:30 AM EDT Office Visit [facility] [address] [facility] [address] [place] [address] iXomara Au MD [address] [facility] [address], [address] [place] [address] Scheduled Orders Name Type Priority Associated Diagnoses Orde r Schedule OUTSIDE LAB SCAN Lab Ordered: 01/16/2023 documented as of this encounter Visit Diagnoses Not on filedocumented in this encounter Care Teams Vibrator Operator Relationship Specialty Start Date End Date Danis Huang DO PCP - General 04/16/21 11/09/23 Danis Huang DO PCP - General Internal Medicine 11/10/23 11/28/24 [place] [address] [place], [place] [address] [place] [address] PCP - General Internal Medicine 11/29/24 Xochitl Knox, distribution operations supervisorAir Launch Weapons Technician 12/05/24 01/11/25 documented as of this encounter
--- OUTSIDE RECORDS SUMMARY | 2025-02-13 12:08 | XMS_ITS | Encounter Summary ---
Author Organization [facility] Address [address] [place] [address] Phone Care Team Providers Care Environmental Web Crawler Name Role Phone Danis Huang DO Primary Care Provider Danis Huang DO Primary Care Provider [phone] Danis Huang DO Primary Care Provider [phone] Xochitl Knox RN Unavailable Unavailable Encounter Details Date Type Department Care Team (Late st Contact Info) Description 03/13/2021 Orders Only [facility] LEGACY [address] [place] [address] Conversion, Onbase Social History Tobacco Use Types [...] Description 04/07/2025 10:30 AM EDT Office Visit [facility] [address] [facility] [address] [place] [address] Xiomara Au MD [address] [facility] [address], [address] [place] [address] Scheduled Orders Name Type Priority Associated Diagnoses Orde r Schedule OUTSIDE LAB SCAN Lab Ordered: 03/13/2021 documented as of this encounter Visit Diagnoses Not on filedocumented in this encounter Care Teams Environmental Web Crawler Relationship Specialty Start Date End Date Danis Huang DO PCP - General 04/16/21 11/09/23 Danis Huang DO PCP - General Internal Medicine 11/10/23 11/28/24 [place] [address] [place], [place] [address] [address] PCP - General Internal Medicine 11/29/24 Xochitl Knox, surgeon's assistantStory Writer 12/05/24 01/11/25 documented as of this encounter
--- OUTSIDE RECORDS SUMMARY | 2025-02-13 12:08 | XMS_ITS | Encounter Summary ---
Author Organization [facility] Address [address] [place] [address] Phone Care Team Providers Care Drophammer Operator Name Role Phone Danis Huang DO Primary Care Provider [phone] Danis Huang DO Primary Care Provider [phone] Danis Huang DO Primary Care Provider [phone] Xochitl Knox RN Unavailable Unavailable Encounter Details Date Type Department Care Team (Late st Contact Info) Description 03/25/2023 Scanned Document [facility] LEGACY [address] [place] [address] Conversion, Onbase Social History Tobacco Use Types [...] Description 04/07/2025 10:30 AM EDT [facility] [address] [facility] [address] [place] [address] Xiomara Au MD [address] [facility] 2, [address] [place] [address] documented as of this encounter Visit Diagnoses Not on filedocumented in this encounter Care Teams Drophammer Operator Relationship Specialty Start Date End Date Danis Huang DO PCP - General 04/16/21 11/09/23 Danis Huang DO PCP - General Internal Medicine 11/10/23 11/28/24 Danis Huang, [address] [place] [address] PCP - General Internal Medicine 11/29/24 Xochitl Knox, rougher merchant millSupervisor Vendor Quality 12/05/24 01/11/25 documented as of this encounter
--- OUTSIDE RECORDS SUMMARY | 2025-02-13 12:08 | XMS_ITS | Clinical Summary ---
Author Organization [facility] Healthcare Address [address] [facility] [place] [address] Care Team Providers Care Information Technology Technician Name Role Phone Sal Danis Nowak DO Primary Care Provider [phone] Allergies No known active allergies Medications carvedilol (Coreg) 6.25 MG tablet Take by mouth in the morning and in the evening. Take with meals. Active atorvastatin (Lipitor) 80 MG tablet Take 80 mg by mouth Daily Active nitroglycerin (Nitrostat) 0.[address] 0.4 mg under the tongue every 5 (five) minutes if needed for chest pain Active aspirin 81 MG EC tablet Take 81 mg by mouth Daily Active docusate sodium (Colace) 50 MG capsule Take 50 mg by mouth in the morning and 50 mg before bedtime. Active Calcium Carbonate-Vitam in D (Oyster Shell Calcium/D) 500-5 MG-MCG tablet Take 1 tablet by mouth in the morning. Active alendronate (Fosamax) 70 MG tabletIndicatio ns:Osteoporosis , post-menopausal Take 1 tablet (70 mg) by mouth every 7 (seven) days Take in the morning with a full glass of water, on an empty stomach, and do not take anything else by mouth or lie down for the next 30 min. 4 tablet 11 11/17/19 24 Active estradiol (Estrace) 0.1 MG/GM vaginal creamIndication s:Vaginal atrophy 1 gram at bedtime for 2 weeks then twice weekly 42 g 3 01/29/20 24 Active mirabegron ER (Myrbetriq) 25 MG 24 hr tabletIndicatio ns:Urge incontinence,Ur inary frequency Take 1 tablet (25 mg) by mouth at bedtime Do not crush, chew, or split. 90 tablet 3 02/24/20 24 Active hydroCHLOROthia zide (HYDRODiuril) 25 MG tablet Take 25 mg by mouth every other day 03/09/20 24 Active clopidogrel (Plavix) 75 MG tablet Take 75 mg by mouth in the morning. 10/27/19 25 026 Active losartan (Cozaar) 25 MG tablet Take 25 mg by mouth Daily Active pantoprazole (ProtoNix) 40 MG EC tablet Take 40 mg by mouth in the morning. Take before meals. 10/29/19 25 Active ranolazine (Ranexa) 500 MG 12 hr tablet TAKE 1 TABLET BY MOUTH TWICE DAILY DO NOT CRUSH, CHEW, OR SPLIT Active ticagrelor (Brilinta) 90 MG tablet Take 90 mg by mouth in the morning and 90 mg before bedtime. Discontin ued(Thera py completed ) cholecalciferol (Vitamin D-3) 25 MCG (1000 UT) capsule Take 1,000 Units by mouth in the morning. Discontin ued(Thera py completed ) telmisartan-hyd roCHLOROthiazid e (MIcarDIS HCT) 40-12.5 MG tablet Take 1 tablet by mouth in the morning. Discontin ued(Thera py completed ) hydrOXYzine HCl (Atarax) 25 MG tablet Take 25 mg by mouth at bedtime 09/02/19 24 025 Discontin ued(Thera py completed ) nitroglycerin (Nitrodur) 0.1 MG/HR patch Place 1 patch on the skin Daily Discontin ued(Dose adjustmen t) nystatin (Mycostatin) ointmentIndicat ions:Cutaneous Candidiasis Apply thin film BID prn irritation 30 g 1 01/11/20 24 025 Discontin ued(Thera py completed ) Omeprazole Magnesium (PRILOSEC PO) Take by mouth 02/08/20 24 Discontin ued(Thera py completed ) telmisartan (MIcarDIS) 20 MG tablet Take 20 mg by mouth Daily 02/23/20 24 025 Discontin ued(Thera py completed ) LORazepam (Ativan) 0.5 MG tabletIndicatio ns:Chronic low back pain, unspecified back pain laterality, unspecified whether sciatica present Take 1 tablet (0.5 mg) by mouth See administration instructions for 1 dose 1 by mouth 1 hour prior to MRI 1 tablet 05/17/20 025 Discontin ued(Thera py completed ) nystatin-triamc inolone (Mycolog II) ointmentIndicat ions:Vulvar irritation Apply topically 2 (two) times a day 15 g 2 09/28/19 025 Discontin ued(Thera py completed ) Active Problems Problem Noted Date Diagnosed Date History of heart artery stent 10/07/2023 High cholesterol 10/07/2023 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 10/07/2023 Right wrist pain 08/28/2023 History of bilateral carpal tunnel release 08/28 History of PTCA 06/15/2023 ASCVD (arteriosclerotic cardiovascular disease) 05/19/2023 Congestive heart failure, NYHA class 2 and ACC/A GLASER stage C 05/19/2023 Essential hypertension 05/19/2023 Mixed hyperlipidemia 05/19/2023 Systolic murmur 05/19/2023 Status post right hip replacement 06/19/2021 Osteoarthritis of knee 03/04/2021 Disorder of sacrum 02/07/2021 Overview (10/07/2023): Added automatically from request for surgery [id number] Primary osteoarthritis of right hip 07/19/2020 Overview (05/21/2023): Added automatically from request for surgery [id number] Ischial bursitis 07/07/2019 Overview (10/07/2023): Added automatically from request for surgery [id number] Osteopenia 06/06/2016 Vitamin D deficiency 05/05/2016 Sciatica 05/05/2016 Sacroiliac joint pain 01/17/2010 Hip pain 12/18/2009 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 01/16/2009 Encounters Date Type Department Care Team Description 01/30/2025 1:00 PM EDT Procedure Visit [facility] [address] [place] [id number] Germán Weir, DPHannah Dermatophytosis of nail (Primary Dx); Dystrophic nail; Pain around toenail, right foot; Pain around toenail, left foot 01/30/2025 Bamboo flowsheet [facility] [address] [place] [address] Germán Weir DPM 01/30/2025 Travel 01/27/2025 Travel 01/25/2025 11:00 AM EDT Office Visit [facility] [address] [place] [address] Dennis Miguel DO Pessary maintenance; Cystocele with rectocele; Urethral caruncle; Vaginal atrophy 01/25/2025 Travel 01/10/2025 11:40 AM EDT Ancillary Procedure [facility] [place] [address] 01/10/2025 11:30 AM EDT Office Visit [facility] [place] [address] Nikolai Muñoz PA Arthritis of right knee (Primary Dx); Acute pain of right knee 01/10/2025 Bamboo flowsheet [facility] [address] [place] [address] [phone] Nikolai Muñoz PA 01/10/2025 Travel 12/06/2024 Refill [facility] [address] [place] [address] Shaq Calzada DO Osteoporosis, post-menopausal from Last 3 Months Immunizations Immunization Administration Dates Next Due Influenza, High Dose Seasona l, Preservative Free 05/04/2020,04/03/2020,04/29/2019 Influenza, High-dose Seasona l, Quadrivalent, Preservative Free 05/06/2023,05/06/2022,04/24/2021 Influenza, Unspecified 05/06/2023 Influenza, injectable, quadr ivalent, preservative free 04/28/2018,05/04/2017 Pneumococcal Conjugate PCV 13 05/06/2016 Pneumococcal Polysaccharide PPSV23 08/03/2010, Zoster, Recombinant 07/01/2019,03/28/2019 Zoster, live 04/15/2011 Family History Medical History Relation Name Comments Kidney disease Brother Heart disease Father Heart disease Mother Hypertension Mother Stroke Mother Heart disease Sister Relation Name Status Comments Brother 2 Daughter 1, healthy Father Mother Sister 1 Son 1 Social History Tobacco Use Types Packs/Day Years [...] Sign Reading Time Taken Comments Blood Pressure 108/66 01/25/2025 11:10 AM EDT Pulse - - Temperature - - Respiratory Rate - - Oxygen Saturation - - Inhaled Oxygen Concentration - - Weight 64.9 kg (143 lb) 01/30/2025 12:51 PM EDT Height 165.1 cm (5' 5 ) 01/30/2025 12:51 PM EDT Body Mass Index 23.8 01/30/2025 12:51 PM EDT Plan of Treatment Upcoming Encounters Date Type Department Care Team (Late st Contact Info) Description 05/08/2025 1:00 PM EDT Procedure Visit [facility] [address] [place] [phone] Germán Weir, DPHannah [address] [place], [place] [phone] 05/09/2025 11:00 AM EDT Office Visit [facility] [address] [place] [address] Nikolai Muñoz, PA [address] [place] [address] 05/29/2025 1:30 PM EDT Office Visit [facility] [address] [facility] [address] [place] [address] Dennis Miguel, DO [address] [facility] [address] [place] [address] 05/31/2025 9:30 AM EDT Office Visit [facility] [address] [facility] [place] [address] Nikolai Muñoz, PA [address] [place] [address] 06/07/2025 11:00 AM EST Clinical Support [facility] [address] [facility] [address] [place] [address] Lisa Zamorano, [facility] [address] [facility] [place] [address] Health Maintenance Due Date Last Done Comments Influenza Vaccine (#1) 2025 4, 05/06/2023, 05/06/2023, Additional history exists Pneumococcal Vaccine: 65+ Years Completed 05/06/2016, 08/03/2010, 08/03/2004 Procedures Procedure Name Priority Date/Time Associated Diagnosis Comments ID ARTHROCENTESIS ASPIR&/INJ MAJOR JT/BURSA W/O US Routine 01/10/2025 12:05 PM EDT Arthritis of right knee XR KNEE 1-2 VIEWS RIGHT Routine 01/11/20 11:38 AM EDT Acute pain of right knee from Last 3 Months Results * ID ARTHROCENTESIS ASPIR&/INJ MAJOR JT/BURSA W/O US (01/10/2025 12:05 PM EDT) Narrative Nikolai Muñoz PA - 01/10/2025 12:05 PM EDT SHANNAN Mitchell 01/10/2025 12:23 PM L Inj/Asp: R knee on 01/10/2025 12:05 PM Indications: pain Details: 22 G needle, anterolateral approach Medications: 40 mg methylPREDNISolone acetate 40 MG/ML; 2 mL bupivacaine PF 0.5 % Outcome: tolerated well, no immediate complications E UTILIZING ASEPTIC TECHNIQUE PT GIVEN INJECTION IN RIGHT KNEE, NEUROVASC INTACT S/P INJ, TOLERATED WELL Procedure, treatment alternatives, risks and benefits explained, specific risks discussed. Consent was given by the patient. Patient was prepped and draped in the usual sterile fashion. Nikolai CAMPBELL IN CLINIC/BEDSIDE ORDERABLES Final Result * XR knee 1 or 2 views right (01/10/2025 11:38 AM EDT) Anatomical Region Laterality Modality Lower Extremities, Knee Right Radiogra [facility] Narrative 01/10/2025 12:22 PM EDT Imaging Result: AP and lateral right knee Valgus alignment No acute fracture or dislocation Vascular calcification distal aspect of femur. Possible calcified loose body posterior recess. Near bone on bone articulation lateral joint line, mild flattening of articular surface Impression: moderate tricompartmental arthritic changes. Nikolai CAMPBELL IMG XR PROCEDURES Final Resul t from Last [address] [place] [address] [employer] MED[employer] Care Teams Information Technology Technician Relationship Specialty Start Date End Date Danis Huang DO [address] [facility] [place] [address] PCP - General Internal Medicine 12/15/22
--- OUTSIDE RECORDS SUMMARY | 2025-02-13 12:08 | XMS_ITS | Encounter Summary ---
Author Organization [facility] Address [address] [place] [address] Phone Care Team Providers Care Driller Portable Name Role Phone Danis Huang DO Primary Care Provider [phone] Danis Huang DO Primary Care Provider [phone] Xochitl Knox RN Unavailable Unavailable Encounter Details Date Type Department Care Team (Late st Contact Info) Description 11/19/2023 Scanned Document [facility] [address] [place] [address] Scanning, Generic Provider Social History [...] Description 04/07/2025 10:30 AM EDT Office Visit [facility] [address] [address] Xiomara Au MD [address] [facility] [address] [place] [address] documented as of this encounter Visit Diagnoses Not on filedocumented in this encounter Additional Health Concerns Assessment Noted Time A fall risk assessment has been complete d for the patient 06/15/2023 9:11 AM EST documented as of this encounter Care Teams Driller Portable Relationship Specialty Start Date End Date Danis Huang DO PCP - General Internal Medicine 11/10/23 11/28/24 Danis Huang DO [address] [place] [address] PCP - General Internal Medicine 11/29/24 Xochitl Knox RN Care Natural Gas Trader 12/05/24 01/11/25 documented as of this encounter
--- OUTSIDE RECORDS SUMMARY | 2025-02-13 12:08 | XMS_ITS | Encounter Summary ---
Author Organization [facility] Address [address] [place] [address] Phone Care Team Providers Care Director Drug Name Role Phone Danis Huang DO Primary Care Provider [phone] Danis Huang DO Primary Care Provider [phone] Xochitl Knox RN Unavailable Unavailable Encounter Details Date Type Department Care Team (Late st Contact Info) Description 12/23/2023 Scanned Document [facility] [address] [place] [address] Scanning, Generic Provider Social History [...] suspected to have Coronavirus/COVID-19? No / Unsure 11/30/2023 9:56 AM EDT documented as of this encounter Plan of Treatment Upcoming Encounters Date Type Department Care Team (Late st Contact Info) Description 04/07/2025 10:30 AM EDT Office Visit [facility] [address] [address] Xiomara Au MD [address] [facility] [address] [place] [address] documented as of this encounter Procedures Procedure Name Priority Date/Time Associated Diagnosis Comments OUTSIDE IMAGING SCAN 12/23/2023 documented in this encounter Results * OUTSIDE IMAGING SCAN (12/23/2023) Anatomical Region Laterality Modality Other Narrative 12/23/2023 Ordered by an unspecified provider. us Generic Provider Scanning OUTSIDE SCAN Final Result documented in this encounter Visit Diagnoses Not on filedocumented in this encounter Additional Health Concerns Assessment Noted Time A fall risk assessment has been complete d for the patient 06/15/2023 9:11 AM EST documented as of this encounter Care Teams Director Drug Relationship Specialty Start Date End Date Danis Huang DO PCP - General Internal Medicine 11/10/23 11/28/24 Danis Huang DO [address] [place] [address] PCP - General Internal Medicine 11/29/24 Xochitl Knox, research coordinatorCake Knocker 12/05/24 01/11/25 documented as of this encounter
--- OUTSIDE RECORDS SUMMARY | 2025-02-13 12:08 | XMS_ITS | Encounter Summary ---
Author Organization [facility] tem Address [id number] [address] [place] [address] Care Team Providers Care Equalizing Saw Operator Name Role Phone Danis Huang DO Primary Care Provider [phone] Encounter Details Date Type Department Care Team (Late st Contact Info) Description 03/07/2021 Orders Only [facility] [address] [place] [address] Nikolai Muñoz, SHANNAN [address] [place] [address] Social History Tobacco Use Types Packs/Day Years [...] have Coronavirus / COVID-19? No / Unsure 03/07/2021 10:52 AM EDT documented as of this encounter Plan of Treatment Not on file documented as of this encounter Procedures Procedure Name Priority Date/Time Associated Diagnosis Comments XR HIP LT 1 VIEW W OR WO PELVIS Routine 02/10/2021 documented in this encounter Results * X-ray hip left 1 view with or without pelvis (02/10/2021) Anatomical Region Laterality Modality Lower Extremities, MSK, Hip Left Comp uted Radiography us Nikolai CAMPBELL IMG DIAGNOSTIC IMAGING ORDERA BLES Final Result documented in this encounter Visit Diagnoses Not on filedocumented in this encounter Care Teams Equalizing Saw Operator Relationship Specialty Start Date End Date Danis Huang DO [address] [place] [address] PCP - General Internal Medicine 05/10/21 documented as of this encounter
[2025-02-13 13:04] LABS: Anion Gap 14.3; Blood Urea Nitrogen 17.0 mg/dL (7.0-18.0); Calcium 9.0 mg/dL (8.5-10.1); Carbon Dioxide 28.1 mmol/L (21.0-32.0); Chloride 103 mmol/L (98-107); Estimated GFR (African America >60 (>=60 mL/min/1.73m^2); Estimated GFR (Non-African Ame >60 (>=60 mL/min/1.73m^2); Glucose 99 mg/dL (74-106); Potassium 4.4 mmol/L (3.5-5.1); Sodium 141 mmol/L (136-145)
== END 2025-02-13 11:59 | disposition home or self-care (01) ==
PROVIDERS: PCP Internal Medicine; Visit Provider Internal Medicine
DX: E87.1 Hypo-osmolality and hyponatremia (principal)
CPT/HCPCS: 36415; 80048

== ENCOUNTER 2025-04-05 10:47 | Outpatient (OUT) | payer MEDICARE, SELFPAY ==
--- OUTSIDE RECORDS SUMMARY | 2025-04-05 10:51 | XMS_ITS | Encounter Summary ---
Author Organization [facility] Address [address] [place] [address] Phone Care Team Providers Care Fermenting Cellars Receiver Name Role Phone Danis Huang DO Primary Care Provider [phone] Danis Huang DO Primary Care Provider [phone] Danis Huang DO Primary Care Provider [phone] Xochitl Knox RN Unavailable Unavailable Encounter Details Date Type Department Care Team (Late st Contact Info) Description 01/16/2023 Orders Only [facility] [address] [place] [address] Conversion, Onbase Social History Tobacco Use Types [...] Care Team (Late st Contact Info) Description 04/11/2025 11:30 AM EDT Office Visit [facility] [address] [facility] [address] [place] [address] Dora Busby, SPOOL TENDER-ADVOCACY DIRECTOR [address] [facility] [address] [place] [address] Scheduled Orders Name Type Priority Associated Diagnoses Orde r Schedule OUTSIDE LAB SCAN Lab Ordered: 01/16/2023 documented as of this encounter Visit Diagnoses Not on filedocumented in this encounter Care Teams Fermenting Cellars Receiver Relationship Specialty Start Date End Date Danis Huang DO PCP - General 04/16/21 11/09/23 Danis Huang DO PCP - General Internal Medicine 11/10/23 11/28/24 Danis Huang DO [address] [place] [address] PCP - General Internal Medicine 11/29/24 Xochitl Knox, route supervisorGrounds Foreman 12/05/24 01/11/25 documented as of this encounter
--- OUTSIDE RECORDS SUMMARY | 2025-04-05 10:51 | XMS_ITS | Encounter Summary ---
Author Organization [facility] Address [address] [place] [address] Phone Care Team Providers Care Certified Medical Coding Specialist Name Role Phone Danis Huang DO Primary Care Provider [phone] Danis Huang DO Primary Care Provider [phone] Xochitl Knox RN Unavailable Unavailable Encounter Details Date Type Department Care Team (Late st Contact Info) Description 01/07/2024 Scanned Document [facility] [address] [place] [address] Scanning, Generic Provider Social History [...] Description 04/11/2025 11:30 AM EDT Office Visit [facility] [address] [facility] [address] [place] [address] Dora Busby, PAINTER SET-GROUP EXERCISE MANAGER 7[address] [facility] [address] [place], [place] [address] documented as of this encounter Procedures Procedure [...] documented as of this encounter Care Teams Certified Medical Coding Specialist Relationship Specialty Start Date End Date Danis Huang DO PCP - General Internal Medicine 11/10/23 11/28/24 Danis Huang DO [address] [place] [address] PCP - General Internal Medicine 11/29/24 Xochitl Knox, supervisor tree fruit and nut farmingRoute Returner 12/05/24 01/11/25 documented as of this encounter
--- OUTSIDE RECORDS SUMMARY | 2025-04-05 10:51 | XMS_ITS | Encounter Summary ---
Author Organization [facility] Address [address] [place] [address] Phone Care Team Providers Care Manager Produce Name Role Phone Danis Huang DO Primary Care Provider [phone] Danis Huang DO Primary Care Provider [phone] Xochitl Knox RN Unavailable Unavailable Encounter Details Date Type Department Care Team (Late st Contact Info) Description 11/16/2023 Scanned Document [facility] [address] [place] [address] Scanning, Generic Provider Social History [...] Description 04/11/2025 11:30 AM EDT Office Visit [place] [address] [facility] [address] [place] [address] Dora Busby, STEM ROLLER OPERATOR-PIT SHOVELER [address] [facility] [address] [place] [address] documented as of this encounter Visit Diagnoses Not on filedocumented in this encounter Additional Health Concerns Assessment Noted Time A fall risk assessment has been complete d for the patient 06/15/2023 9:11 AM EST documented as of this encounter Care Teams Manager Produce Relationship Specialty Start Date End Date Danis Huang DO PCP - General Internal Medicine 11/10/23 11/28/24 Danis Huang DO [address] [place] [place] [address] PCP - General Internal Medicine 11/29/24 Xochitl Knox, family medicine residentChemical Production Technician 12/05/24 01/11/25 documented as of this encounter
--- OUTSIDE RECORDS SUMMARY | 2025-04-05 10:51 | XMS_ITS | Encounter Summary ---
Author Organization [facility] Address [address] [place] [address] Phone Care Team Providers Care Mandarin Teacher Name Role Phone Danis Huang DO Primary Care Provider [phone] Danis Huang DO Primary Care Provider [phone] Danis Huang DO Primary Care Provider [phone] Xochitl Knox RN Unavailable Unavailable Encounter Details Date Type Department Care Team (Late st Contact Info) Description 12/03/2022 Orders Only [facility] [address] [place] [address] Conversion, Onbase Social History Tobacco Use Types [...] Description 04/11/2025 11:30 AM EDT Office Visit [facility] [address] [facility] [address] [place] [address] Dora Busby, NEWSPAPER PEDDLER-SENIOR AUTOMATION ENGINEER 703 [facility] [address] [place] [address] Scheduled Orders Name Type Priority Associated Diagnoses Orde r Schedule OUTSIDE LAB SCAN Lab Ordered: 12/03/2022 documented as of this encounter Visit Diagnoses Not on filedocumented in this encounter Care Teams Mandarin Teacher Relationship Specialty Start Date End Date Danis Huang DO PCP - General 04/16/21 11/09/23 Danis Huang DO PCP - General Internal Medicine 11/10/23 11/28/24 Danis Huang DO [address] [place] [address] PCP - General Internal Medicine 11/29/24 Xochitl Knox, stoker erector and servicerNonfarm Animal Caretaker 12/05/24 01/11/25 documented as of this encounter
--- OUTSIDE RECORDS SUMMARY | 2025-04-05 10:51 | XMS_ITS | Encounter Summary ---
Author Organization [facility] Address [address] [place] [address] Phone Care Team Providers Care Professor Of Communication And Writing Name Role Phone Danis Huang DO Primary Care Provider [phone] Danis Huang DO Primary Care Provider [phone] Danis Huang DO Primary Care Provider [phone] Xochitl Knox RN Unavailable Unavailable Encounter Details Date Type Department Care Team (Late st Contact Info) Description 03/11/2023 Scanned Document [facility] [address] [place] [address] Conversion, Onbase Social History Tobacco Use Types [...] Description 04/11/2025 11:30 AM EDT Office Visit [facility] 703 [facility] [address] [place] [address] Dora Busby, SCREENER PERFUMER-GAMB CUTTER 703 [facility] [address] [place] [address] documented as of this encounter Procedures Procedure Name Priority Date/Time Associated Diagnosis Comments OUTSIDE IMAGING SCAN 03/11/2023 documented in this encounter Results * OUTSIDE IMAGING SCAN (03/11/2023) Anatomical Region Laterality Modality Other Narrative 03/11/2023 Ordered by an unspecified provider. us Onbase Conversion OUTSIDE SCAN Final Result documented in this encounter Visit Diagnoses Not on filedocumented in this encounter Care Teams Professor Of Communication And Writing Relationship Specialty Start Date End Date Danis Huang DO PCP - General 04/16/21 11/09/23 Danis Huang DO PCP - General Internal Medicine 11/10/23 11/28/24 Danis Huang DO [address] [place] [address] PCP - General Internal Medicine 11/29/24 Xochitl Knox, jewelry polisherVice President Risk Management 12/05/24 01/11/25 documented as of this encounter
--- OUTSIDE RECORDS SUMMARY | 2025-04-05 10:51 | XMS_ITS | Encounter Summary ---
Author Organization [facility] Address [address] [place] [address] Phone Care Team Providers Care Machine Maintenance Repairer Name Role Phone Danis Huang DO Primary Care Provider [phone] Danis Huang DO Primary Care Provider [phone] Danis Huang DO Primary Care Provider [phone] Xochitl Knox RN Unavailable Unavailable Encounter Details Date Type Department Care Team (Late st Contact Info) Description 03/25/2023 Scanned Document [facility] LEGACY [address] [place] [address] Conversion, Onbase Social History Tobacco Use Types [...] Description 04/11/2025 11:30 AM EDT Office Visit [facility] [address] [facility] [address] [place] [address] Dora Busby, PSYCHOLOGIST COUNSELING-VICE PRESIDENT FIXED INCOME [address] [facility] [address], [address] [place] [address] documented as of this encounter Visit Diagnoses Not on filedocumented in this encounter Care Teams Machine Maintenance Repairer Relationship Specialty Start Date End Date Danis Huang DO PCP - General 04/16/21 11/09/23 Danis Huang DO PCP - General Internal Medicine 11/10/23 11/28/24 Danis Huang, [address] [place] [address] PCP - General Internal Medicine 11/29/24 Xochitl Knox, channeler outsoleRetail Agent 12/05/24 01/11/25 documented as of this encounter
--- OUTSIDE RECORDS SUMMARY | 2025-04-05 10:51 | XMS_ITS | Encounter Summary ---
Author Organization [facility] Address [address] [place] [address] Phone Care Team Providers Care Diet Assistant Name Role Phone Danis Huang DO Primary Care Provider [phone] Danis Huang DO Primary Care Provider [phone] Danis Huang DO Primary Care Provider [phone] Xochitl Knox RN Unavailable Unavailable Encounter Details Date Type Department Care Team (Late st Contact Info) Description 03/13/2021 Orders Only [facility] LEGACY [address] [place] [address] Conversion, Onbase Social History Tobacco Use Types [...] Description 04/11/2025 11:30 AM EDT Office Visit [facility] [address] [facility] [address] [place] [address] Dora Busby, CLOTH HAND-RETURNED MATERIALS INSPECTOR 703 [facility] 2, [address] [place] [address] Scheduled Orders Name Type Priority Associated Diagnoses Orde r Schedule OUTSIDE LAB SCAN Lab Ordered: 03/13/2021 documented as of this encounter Visit Diagnoses Not on filedocumented in this encounter Care Teams Diet Assistant Relationship Specialty Start Date End Date Danis Huang DO PCP - General 04/16/21 11/09/23 Danis Huang DO PCP - General Internal Medicine 11/10/23 11/28/24 Danis Huang DO [address] [place] [address] PCP - General Internal Medicine 11/29/24 Xochitl Knox, heel stainerBoat Puller 12/05/24 01/11/25 documented as of this encounter
--- OUTSIDE RECORDS SUMMARY | 2025-04-05 10:51 | XMS_ITS | Encounter Summary ---
Author Organization [facility] Address [address] [place] [address] Phone Care Team Providers Care Cryogenic Transport Driver Name Role Phone Danis Huang DO Primary Care Provider [phone] Danis Huang DO Primary Care Provider [phone] Xochitl Knox RN Unavailable Unavailable Encounter Details Date Type Department Care Team (Late st Contact Info) Description 12/23/2023 Scanned Document [facility] [address] [place] [address] Scanning, Generic Provider Social History [...] Description 04/11/2025 11:30 AM EDT Office Visit [facility] 703 [facility] [address] [place] [address] Dora Busby, TOOL INSPECTOR-RN FIELD 703 [facility] 2, [address] [place] [address] documented as of this encounter Procedures Procedure [...] documented as of this encounter Care Teams Cryogenic Transport Driver Relationship Specialty Start Date End Date Danis Huang DO PCP - General Internal Medicine 11/10/23 11/28/24 Danis Huang DO [address] [place] [address] PCP - General Internal Medicine 11/29/24 Xochitl Knox, manager actuarialIndustrial Cafeteria Manager 12/05/24 01/11/25 documented as of this encounter
--- OUTSIDE RECORDS SUMMARY | 2025-04-05 10:51 | XMS_ITS | Encounter Summary ---
Author Organization [facility] Address [id number] [address] [place] [address] Care Team Providers Care Wood Patternmaker Name Role Phone Danis uHang DO Primary Care Provider [phone] Encounter Details Date Type Department Care Team (Late st Contact Info) Description 05/18/2024 Orders Only [facility] [address] [place] [address] Transcribe, Orders Support User Pain (Primary [...] pain documented in this encounter Care Teams Wood Patternmaker Relationship Specialty Start Date End Date Danis Huang DO [address] [place] [address] PCP - General Internal Medicine 05/10/21 documented as of this encounter
--- OUTSIDE RECORDS SUMMARY | 2025-04-05 10:51 | XMS_ITS | Encounter Summary ---
Author Organization [facility] Address [address] [place] [address] Phone Care Team Providers Care Flute Grinder Name Role Phone Danis Huang DO Primary Care Provider Danis Huang DO Primary Care Provider [phone] Xochitl Knox RN Unavailable Unavailable Encounter Details Date Type Department Care Team (Late st Contact Info) Description 11/18/2023 Scanned Document [facility] [address] [place] [address] Scanning, Generic Provider Social History [...] Description 04/11/2025 11:30 AM EDT Office Visit [place] [address] [facility] [address] [place] [address] Dora Busby, CLAM SHUCKER-CRIB CLERK 703 [facility] 2, [address] [place] [address] documented as of this encounter Procedures Procedure [...] documented as of this encounter Care Teams Flute Grinder Relationship Specialty Start Date End Date Danis Huang DO PCP - General Internal Medicine 11/10/23 11/28/24 Danis Huang DO [facility] [place] [address] PCP - General Internal Medicine 11/29/24 Xochitl Knox, pillowcase cleanerAnalytics Specialist 12/05/24 01/11/25 documented as of this encounter
--- OUTSIDE RECORDS SUMMARY | 2025-04-05 10:51 | XMS_ITS | Encounter Summary ---
Author Organization [facility] Address [address] [place] [address] Care Team Providers Care Property Management Bookkeeper Name Role Phone SalDanis She BRUSH Primary Care Provider [phone] Nikolai Muñoz Unavailable [phone] Encounter Details Date Type Department Care Team (Late st Contact Info) Description 05/13/2023 Abstract [facility] [address] [place] [address] Germán Weir DPM [address] [place], [place] [id number] Social History Tobacco Use Types Packs/Day Years [...] Description 05/08/2025 1:00 PM EDT Procedure Visit [facility] [address] [place] [address] Germán Weri DPM [address] [place], [place] [address] 05/09/2025 11:00 AM EDT Office Visit [facility] [address] [place] [address] Nikolai Muñoz PA [address] [place] [address] 05/29/2025 1:30 PM EDT Office Visit [facility] [address] [place] [address] Dennis Miguel DO [address] [place] [address] 05/31/2025 9:30 AM EDT [facility] [address] [place] [address] Nikolai Muñoz PA [address] [facility] [facility] [place] [address] 06/07/2025 11:00 AM EST Clinical Support [facility] [address] [place] [address] Lisa Zamorano, [facility] [address] [facility] [place] [address] documented as of this encounter Visit Diagnoses Not on filedocumented in this encounter Care Teams Property Management Bookkeeper Relationship Specialty Start Date End Date Danis Huang DO [address] [place] [address] PCP - General Internal Medicine 12/15/22 Nikolai Muñoz PA [address] [place] [address] PCP - Medical [place] 08/03/2408/02 documented as of this encounter
--- OUTSIDE RECORDS SUMMARY | 2025-04-05 10:51 | XMS_ITS | Encounter Summary ---
Author Organization [facility] Address [address] [place] [address] Phone Care Team Providers Care Route Deliverer Name Role Phone Danis Huang DO Primary Care Provider [phone] Danis Huang DO Primary Care Provider [phone] Danis Huang DO Primary Care Provider [phone] Xochitl Knox RN Unavailable Unavailable Encounter Details Date Type Department Care Team (Late st Contact Info) Description 10/17/2021 Orders Only [facility] LEGACY [address] [place] [address] Conversion, Onbase Social History Tobacco Use Types [...] Description 04/11/2025 11:30 AM EDT Office Visit [facility] [address] [facility] [address] [place] [address] Dora Busby, AMERICAN INDIAN POLICY SPECIALIST-POULTRY HATCHERY SUPERVISOR 7[address] [facility] 2, [address] [place] [address] Scheduled Orders Name Type Priority Associated Diagnoses Orde r Schedule OUTSIDE LAB SCAN Lab Ordered: 10/17/2021 documented as of this encounter Visit Diagnoses Not on filedocumented in this encounter Care Teams Route Deliverer Relationship Specialty Start Date End Date Danis Huang DO PCP - General 04/16/21 11/09/23 Danis Huang DO PCP - General Internal Medicine 11/10/23 11/28/24 Danis Huang DO [address] [place] [address] PCP - General Internal Medicine 11/29/24 Xochitl Knox, silk screen painterCloth Handler 12/05/24 01/11/25 documented as of this encounter
--- OUTSIDE RECORDS SUMMARY | 2025-04-05 10:51 | XMS_ITS | Encounter Summary ---
Author Organization [facility] Address [id number] [address] [place] [address] Care Team Providers Care Surgical Specialist Name Role Phone Danis Huang DO Primary Care Provider [phone] Encounter Details Date Type Department Care Team (Late st Contact Info) Description 05/23/2024 Orders Only [facility] [address] [place] [address] Ref Prov, [place] [address] Social History Tobacco Use Types Packs/Day Years [...] on filedocumented in this encounter Care Teams Surgical Specialist Relationship Specialty Start Date End Date Danis Huang DO [address] [place] [address] PCP - General Internal Medicine 05/10/21 documented as of this encounter
--- OUTSIDE RECORDS SUMMARY | 2025-04-05 10:51 | XMS_ITS | Clinical Summary ---
Author Organization [employer] Address [id number] [address] [place] [address] Care Team Providers Care Dishtank Operator Name Role Phone Danis Huang Primary Care Provider Allergies No known active allergies Medications telmisartan-hyd [...] (02/07/2021): Added automatically from request for surgery [id number] Primary osteoarthritis of right hip 07/19/2020 Overview (07/19/2020): Added automatically from request for surgery [id number] Ischial bursitis 07/07/2019 Overview (07/07/2019): Added automatically from request for surgery [id number] Hip pain 12/18/2009 DDD (degenerative disc disease), [...] PT 360. Medical Devices Implanted Type Area Recreational Counselor Device Identifier Shelf Expiration Date Model / Serial / Lot Shell Actb 56mm Hip 4 Hl Clr Cd [place] G7 F Hmsphr - [id number] - [id number] Implanted:Qt y: 1 on 06/05/2021 by González Suazo, DO at [facility] Orthopedic Implant Right: Hip [employer] 02/19/2031 [id number] / [id number] / [id number] Liner Actb 36mm F Ntrl Arcomxl G7 Hip - [id number] - [id number] Implanted:Qt y: 1 on 06/05/2021 by González Suazo, DO at [facility] Orthopedic Implant Right: Hip [employer] [id number] 02/08/2025 [id number] / [id number] / [id number] Stem Fem 5 Std Avenir Cmplt Hip Colr Strl Lf - [id number] - [id number] Implanted:Qt y: 1 on 06/05/2021 by González Suazo DO at [facility] Orthopedic Implant Right: Hip [employer] [id number] 08/02/2025 [id number] / [id number] / [id number] Head Fem 36mm +3.5mm Vrsy Cocr Hip Rpl [id number] - [id number] - [id number] Implanted:Qt y: 1 on 06/05/2021 by González Suazo DO at [facility] Orthopedic Implant Right: Hip [employer] [id number] 06/02/2028 [id number] / [id number] / [id number] Screw Bn 30mm 6.5mm St Actb Rory Trlg Strl Rpl [id number] + [id number] + [id number] - [id number] - [id number] Implanted:Qt y: 1 on 06/05/2021 by González Suazo DO at [facility] Screw Right: Hip [employer] [id number] 08/02/2029 [id number] / [id number] / [id number] Screw Bn 30mm 6.5mm St Actb Rory Trlg Strl Rpl [id number] + [id number] + [id number] - [id number] - [id number] Implanted:Qt y: 1 on 06/05/2021 by González Suazo DO at [facility] Screw Right: Hip [employer] [id number] 07/02/2029 [id number] / [id number] / [id number] Screw Bn 30mm 6.5mm St Actb Rory Trlg Strl Rpl [id number] + [id number] + [id number] - [id number] - [id number] Implanted:Qt y: 1 on 06/05/2021 by González Suazo DO at [facility] Screw Right: Hip [employer] [id number] 12/16/2030 [id number] / [id number] / [id number] Insurance [employer] Member Subscriber Plan / Payer (Ef fective 2024-Present) Name:Atiya Jha Relation to Subscriber:Self Name:Atiya Jha Payer ID:Not on file Type:Not on file Address: [place] [id number] Advance Directives Documents on File Type Date Recorded Patient Machinery Cleaner Expl anation Living Will 06/05/2021 7:19 AM * Full Code (Latest Code Status on File) Date Activated Date Inactivated Comments 06/05/2021 12:15 PM 06/08/2021 6:27 PM Care Teams Dishtank Operator Relationship Specialty Start Date End Date Danis Huang DO [address] [place] [address] PCP - General Internal Medicine 05/10/21
--- OUTSIDE RECORDS SUMMARY | 2025-04-05 10:51 | XMS_ITS | Encounter Summary ---
Author Organization [facility] Address [address] [place] [address] Phone Care Team Providers Care Video Technician Name Role Phone Danis Huang DO Primary Care Provider [phone] Danis Huang DO Primary Care Provider [phone] Xochitl Knox RN Unavailable Unavailable Encounter Details Date Type Department Care Team (Late st Contact Info) Description 11/19/2023 Scanned Document [facility] [address] [place] [address] Scanning, Generic Provider Social History [...] Description 04/11/2025 11:30 AM EDT Office Visit [place] [address] [facility] [address] [place] [address] Dora Busby, NOVELTY DIPPER-FINAL TESTER 703 [facility] 2, [address] [place] [address] documented as of this encounter Visit Diagnoses Not on filedocumented in this encounter Additional Health Concerns Assessment Noted Time A fall risk assessment has been complete d for the patient 06/15/2023 9:11 AM EST documented as of this encounter Care Teams Video Technician Relationship Specialty Start Date End Date Danis Huang DO PCP - General Internal Medicine 11/10/23 11/28/24 Danis Huang DO [address] [place] [address] PCP - General Internal Medicine 11/29/24 Xochitl Knox, order to delivery supervisorMargin Clerk 12/05/24 01/11/25 documented as of this encounter
--- OUTSIDE RECORDS SUMMARY | 2025-04-05 10:52 | XMS_ITS | Clinical Summary ---
Author Organization [facility] Address [address] [place] [address] Phone Care Team Providers Care Wet Roller Name Role Phone Danis Huang Primary Care Provider [phone] Allergies No known active allergies Medications aspirin [...] 30 min. Active clopidogrel (Plavix) 75 mg tabletIndications: ASCVD (arteriosclerotic cardiovascular disease) Take 1 tablet (75 mg) by mouth once daily. 90 tablet 3 5 2:45 PM EDT 10/27/19 25 026 Active estradiol (Estrace) 0.01 % (0.1 mg/gram) vaginal cream Insert 0.5 Applicatorfuls (2 g) into the vagina once daily as needed. 09/28/19 25 Active hydroCHLOROthiazid e (HYDRODiuril) 25 mg tablet Take 0.5 tablets (12.5 mg) by mouth once daily. 11/01/19 25 Active pantoprazole (ProtoNix) 40 mg EC tablet Take 1 tablet (40 mg) by mouth once daily in the morning. Take before meals. 10/29/19 25 Active ranolazine (Ranexa) 500 mg 12 hr tabletIndications: Angina pectoris, unspecified Take 1 tablet (500 mg) by mouth 2 times a day. Do not crush, chew, or split. 60 tablet 2 12/04/19 25 Active losartan (Cozaar) 25 mg tabletIndications: Essential hypertension Take 1 tablet (25 mg) by mouth once daily. 30 tablet 3 12/05/19 25 Active carvedilol (Coreg) 3.125 mg tabletIndications: Essential hypertension Take 1 tablet (3.125 mg) by mouth 2 times daily (morning and late afternoon). 180 tablet 3 01/27/20 25 026 Active Active Problems Problem Noted Date Diagnosed [...] following abnormal outpatient perfusion study Ostial/proximal LAD PCI/[place] 2.5 x 15 mm Proximal circumflex with [...] Description 01/26/2025 10:20 AM EDT Office Visit [address] [place] [address] Xiomara Au MD Orthostatic hypotension (Primary Dx); Essential hypertension; Palpitations; Never smoked cigarettes; BMI 24.0-24.9, adult; Weakness 01/26/2025 Travel 01/24/[address] [address] Payton Salgado LPN Error (VOID this visit) 01/24/[address] [address] Payton Salgado LPN Medical Advice/Question 01/11/2025 Patient Outreach [address] [place] [address] Xochitl Knox, NICOLE from Last 3 Months Immunizations Immunization Administration [...] = 0.6 oz pur e alcohol) social [facility] Utilities Answer Date Recorded In the past [address] [facility] [employer], [employer], or water [employer] threatened to shut off services in your [...] money to buy more. Never true 11/30/19 Within the past 12 months, t he [...] any time in the past 12 m [facility], were you homeless or living in a custodial (including now)? No 11/29/2024 Comments Unknown Sex [...] Description 04/11/2025 11:30 AM EDT Office Visit [facility] [address] [facility] [address] [place] [address] Dora Busby, MANAGING CONSULTANT-GRAIN COMBINE DRIVER [address] [facility] [address] [place] [address] Health Maintenance Due Date Last Done Comments Lipid Panel 1940 Medicare Annual Wellness Visit (AWV) 1940 DTaP/Tdap/Td Vaccines (1 - Tdap) 1961 RSV High Risk: (Elderly (60+) or Population) (1 - 1-dose 75+ series) 2014 Bone Density Scan 05/21/2024 05/21/2022 COVID-19 Vaccine ( season) 2025 05/06/2022, 11/22/2021 Influenza Vaccine (#1) 2025 , 05/06/2023, 05/06/2023, [...] age to complete this topic HPV Vaccines Aged Out No longer eligi ble based on patient's age to complete this topic Hepatitis A Vaccines Aged Out No long [...] this topic Medical Devices Implanted Type Area Telephone Ad Taker Device Identifier Shelf Expiration Date Model / Serial / Lot Stent, [place] [employer], 2.50 X 15rx - [id number] Implanted:Qty: 1 on 12/02/2024 by Ann Howard MD at [facility] Stent N/A: Coronary [employer] 03/31/2027 [id number] / / [id number] Procedures Procedure Name Priority Date/Time Associated Diagnosis Comments ECG 12-LEAD Routine 01/26/2025 10:20 AM EDT Palpitations BASIC METABOLIC PANEL Pending Discharge 12/03/2024 6:04 AM EDT ECHOCARDIOGRAM 11/25/2024 from Last 3 Months or Most Recently Relevant to Health Maintenance Results * ECG 12 Lead (01/26/2025 10:20 AM EDT) Narrative [facility] - 01/26/2025 10:34 AM EDT Normal sinus rhythm. Normal EKG us Xiomara Au MD ECG ORDERABLES Final Resu lt [facility] * Basic Metabolic Panel (12/03/2024 6:04 AM EDT) Glucose 98 74 - 99 mg/dL LAB CHEMISTRY METHOD 12/03/2024 6:36 AM EDT [facility] Sodium 136 136 - 145 mmol/L LAB CHEMISTRY METHOD 12/03/2024 6:36 AM EDT [facility] Potassium 4.1 3.5 - 5.3 mmol/L LAB CHEMISTRY METHOD 12/03/2024 6:36 AM EDT [facility] Chloride 101 98 - 107 mmol/L LAB CHEMISTRY METHOD 12/03/2024 6:36 AM EDT [facility] Bicarbonate 29 21 - 32 mmol/L LAB CHEMISTRY METHOD 12/03/2024 6:36 AM EDT [facility] Anion Gap 10 10 - 20 mmol/L LAB CHEMISTRY METHOD 12/03/2024 6:36 AM EDT [facility] Urea Nitrogen 13 6 - 23 mg/dL LAB CHEMISTRY METHOD 12/03/2024 6:36 AM EDT [facility] Creatinine 0.92 0.50 - 1.05 mg/dL LAB CHEMISTRY METHOD 12/03/2024 6:36 AM EDT [facility] eGFR 61 >60 mL/min/1.7 3m*2 LAB CHEMISTRY METHOD 12/03/2024 6:36 AM T [facility] Comment: Calculations of estimated GFR are performed using the 2020 CKD-EPI Study Refit equation without the race variable for the IDMS-Traceable creatinine methods. https://jasn.asnjournals.org/content//ASN.1146609209 Calcium 9.2 8.6 - 10.3 mg/dL LAB CHEMISTRY METHOD 12/03/2024 6:36 AM T [facility] Blood Venous blood specimen / Unknown Venipuncture / Unknown 12/03/2024 6:04 AM EDT 12/03/2024 6:12 AM EDT us Karl Mccormick MD LAB BLOOD ORDERABLES Final Resul t [facility] [address] [place] [address] * Echocardiogram (11/25/2024) Narrative 11/25/2024 Ordered by an unspecified provider. 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 Former Expl anation Healthcare Power of Atty 12/05/2024 12:00 AM * Full Code (Latest Code Status on File) Date Activated Date Inactivated Comments 11/29/2024 2:58 PM Question Answer Comments Plan of Care: Code Status Discussion Completed Decision Maker: Patient Healthcare Agents on File Name Relationship Healthcare Agent Relationshi p Communication Cheyenne Garcia Daughter Health Care Agent Chay Mcdermott [facility] are Agent Care Teams Wet Roller Relationship Specialty Start Date End Date Danis Huang DO [address] [place] [address] PCP - General Internal Medicine 11/29/24
--- OUTSIDE RECORDS SUMMARY | 2025-04-05 10:52 | XMS_ITS | Encounter Summary ---
Author Organization [facility] Address [address] [place] [address] Phone Care Team Providers Care Bonded Strand Operator Name Role Phone SalDanis She BRUSH Primary Care Provider [phone] Xochitl Knox RN Unavailable Unavailable Encounter Details Date Type Department Care Team (Late st Contact Info) Description 11/29/2024 Scanned Document [facility] [address] [place] [phone] Scanning, Generic Provider Social History Tobacco Use Types Packs/Day Years Used Date Smoking Tobacco: Never Smokeless Tobacco: Never Alcohol Use Standard Drinks/Week Comments Yes 0 (1 standard drink = 0.6 oz pur e alcohol) social [facility] Utilities Answer Date Recorded In the past 12 months has [facility] [place], gas, oil, or water [facility] threatened to shut off services in your [...] any time in the past 12 m [facility], were you homeless or living in a prison (including now)? No 11/29/2024 Comments Unknown Sex [...] as of this encounter Functional Status * AUDIT-C Score Answer Date of Assessment Author 0 [...] 11/29/2024 11:01 PM Sho Wayne RN * [place] Suicide Severity Rating Scale (Screener/Recent Self-Report) Question [...] Description 04/11/2025 11:30 AM EDT Office Visit [place] [address] [phone] Dora Busby, STATION BAGGAGE AGENT-STAVE INSPECTOR [address] [facility] [place] [address] documented as of this encounter Visit Diagnoses Not on filedocumented in this encounter Additional Health Concerns Assessment Noted Time A fall risk assessment has been complete d for the patient 10/26/2024 3:12 PM EDT documented as of this encounter Care Teams Bonded Strand Operator Relationship Specialty Start Date End Date Danis Huang DO [address] [place] [address] PCP - General Internal Medicine 11/29/24 Xochitl Knox, database consultantChicken Cleaner 12/05/24 01/11/25 documented as of this encounter
--- OUTSIDE RECORDS SUMMARY | 2025-04-05 10:52 | XMS_ITS | Encounter Summary ---
Author Organization [facility] Address [address] [facility] [place] [address] Care Team Providers Care Decorator Street And Building Name Role Phone SalDanis She BRUSH Primary Care Provider [phone] Nikolai Muñoz Unavailable [phone] Encounter Details Date Type Department Care Team (Late st Contact Info) Description 07/07/2023 Abstract [facility] [address] [place] [phone] aPula Jarrett NP Social History Tobacco Use Types [...] Description 05/08/2025 1:00 PM EDT Procedure Visit [facility] [address] [place] [address] Germán Weir DPM [address] [place], [place] [address] 05/09/2025 11:00 AM EDT Office Visit [facility] [address] [place] [address] Nikolai Muñoz PA [address] [place] [address] 05/29/2025 1:30 PM EDT Office Visit [facility] [address] [facility] [address] [place] [address] Dennis Miguel DO [address] [facility] [address] [place] [address] 05/31/2025 9:30 AM EDT Office Visit [facility] [address] [facility] [place] [place] [address] Nikolai Muñoz PA [address] [facility] [place] [address] 06/07/2025 11:00 AM EST Clinical Support [facility] [address] [place] [address] Lisa Zamorano, [facility] [address] [facility] [address] documented as of this encounter Visit Diagnoses Not on filedocumented in this encounter Care Teams Decorator Street And Building Relationship Specialty Start Date End Date Danis Huang DO [address] [place] [address] PCP - General Internal Medicine 12/15/22 Nikolai Muñoz PA [address] [place] [address] PCP - Medical Hermann MA 08/03/2408/02 documented as of this encounter
--- OUTSIDE RECORDS SUMMARY | 2025-04-05 10:52 | XMS_ITS | Encounter Summary ---
Author Organization [facility] Address [address] [place] [address] Care Team Providers Care Ditching Machine Engineer Name Role Phone Sal Danis Nowak DO Primary Care Provider [phone] Nikolai Muñoz Unavailable [phone] Reason for Visit * Reason Comments Med Refill Encounter Details Date Type Department Care Team (Late st Contact Info) Description 12/06/2024 Refill [facility] [address] [phone] Shaq Calzada DO [address] [facility] [place] [address] Osteoporosis, post-menopausal Social History Tobacco Use Types [...] 05/08/2025 1:00 PM EDT Procedure Visit [facility] [address] [facility] [place] [address] Germán Weir, DPM [address] [place], [place] [address] 05/09/2025 11:00 AM EDT Office Visit [facility] [address] [facility] [place] [address] Nikolai Muñoz PA [address] [place] [address] 05/29/2025 1:30 PM EDT Office Visit [facility] [address] [place] [address] Dennis Miguel DO [address] [place] [address] 05/31/2025 9:30 AM EDT Office Visit [facility] [address] [facility] [place] [address] Nikolai Muñoz PA [address] [place] [address] 06/07/2025 11:00 AM EST Clinical Support [facility] [address] [place] [address] Lisa Zamorano, [facility] [address] [place] [address] documented as of this encounter Visit Diagnoses Diagnosis Osteoporosis, post-menopausal Senile osteoporosis documented in this encounter Care Teams Ditching Machine Engineer Relationship Specialty Start Date End Date Danis Huang DO [address] [place] [address] PCP - General Internal Medicine 12/15/22 Nikolai Muñoz PA [address] [place] [address] PCP - Medical [place] MA 08/03/2408/02 documented as of this encounter
--- OUTSIDE RECORDS SUMMARY | 2025-04-05 10:52 | XMS_ITS | Clinical Summary ---
Author Organization [facility] Address [address] [facility] [place] [address] Care Team Providers Care Electrical Mechanic Name Role Phone Sal Danis Nowak DO Primary Care Provider Nikolai Muñoz Unavailable [phone] Allergies No known active allergies Medications carvedilol [...] next 30 min. 4 tablet 11 11/17/2023 Active estradiol (Estrace) 0.1 MG/GM vaginal creamIndication s:Vaginal atrophy 1 gram at bedtime for 2 weeks then twice weekly 42 g 3 01/29/2024 Active hydroCHLOROthia zide (HYDRODiuril) 25 MG tablet Take 25 mg by mouth every other day 03/09/2024 Active clopidogrel (Plavix) 75 MG tablet Take 75 mg by mouth in the morning. 10/26/2024 10/27/19 Active losartan (Cozaar) 25 MG tablet Take 25 mg by mouth Daily Active pantoprazole (ProtoNix) 40 MG EC tablet Take 40 mg by mouth in the morning. Take before meals. 10/28/2024 Active ranolazine (Ranexa) 500 MG 12 hr tablet TAKE 1 TABLET BY MOUTH TWICE DAILY DO NOT CRUSH, CHEW, OR SPLIT Active mirabegron ER (Myrbetriq) 25 MG 24 hr tabletIndicatio ns:Urge incontinence,Ur inary frequency Take 1 tablet (25 mg) by mouth at bedtime Do not crush, chew, or split. 90 tablet 3 02/28/2025 02/29/20 Active Active Problems Problem Noted Date Diagnosed [...] (10/07/2023): Added automatically from request for surgery [id number] Primary osteoarthritis of right hip 07/19/2020 Overview (05/21/2023): Added automatically from request for surgery [id number] Ischial bursitis 07/07/2019 Overview (10/07/2023): Added automatically from request for surgery [id number] Osteopenia 06/06/2016 Vitamin D deficiency 05/05/2016 Sciatica 05/05/2016 Sacroiliac joint pain 01/17/2010 Hip pain 12/18/2009 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 01/16/2009 Encounters Date Type Department Care Team Description 02/28/2025 Telephone [facility] [address] [place] [address] Antoinette Link LPN 01/30/2025 1:00 PM EDT Procedure Visit [facility] [address] [place] [address] Germán Weir DPM Dermatophytosis of nail (Primary Dx); Dystrophic nail; Pain around toenail, right foot; Pain around toenail, left foot 01/30/2025 Bamboo flowsheet [facility] [address] [place] [address] Germán Weir DPM 01/30/2025 Travel 01/27/2025 Travel 01/25/2025 11:00 AM EDT Office Visit [facility] [address] [place] [address] Dennis Miguel, DO Pessary maintenance; Cystocele with rectocele; Urethral caruncle; Vaginal atrophy 01/25/2025 Travel 01/10/2025 11:40 AM EDT Ancillary Procedure [facility] [address] [place] [address] 01/10/2025 11:30 AM EDT Office Visit [facility] [address] Nikolai Muñoz PA Arthritis of right knee (Primary Dx); Acute pain of right knee 01/10/2025 Bamboo flowsheet [facility] [address] [place] [address] Nikolai Muñoz PA 01/10/2025 Travel from Last 3 Months Immunizations Immunization Administration [...] 05/08/2025 1:00 PM EDT Procedure Visit [facility] [address] [facility] [place] [address] Germán Weir, DPHannah [address] [place], [place] [address] 05/09/2025 11:00 AM EDT [facility] [address] [place] [address] Nikolai Muñoz PA [address] [place] [address] 05/29/2025 1:30 PM EDT Office Visit [facility] BURKETT [address] [facility] [address] [place] [address] Dennis Miguel DO [address] [place] [address] 05/31/2025 9:30 AM EDT [facility] [address] [place] [address] Nikolai Muñoz PA [address] [place] [address] 06/07/2025 11:00 AM EST Clinical Support [facility] [address] [place] [address] Lisa Zamorano, [facility] [address] [place] [address] Health Maintenance Due Date Last Done Comments Medicare Annual Wellness (AWV) 1940 Influenza Vaccine (#1) 2025 , 05/06/2023, 05/06/2023, Additional history exists Pneumococcal Vaccine: 65+ Years Completed 05/06/2016, 08/03/2010, 08/03/2004 Procedures Procedure Name Priority Date/Time Associated Diagnosis Comments GA ARTHROCENTESIS ASPIR&/INJ MAJOR JT/BURSA W/O US Routine 01/10/2025 12:05 PM EDT Arthritis of right knee XR KNEE 1-2 VIEWS RIGHT Routine 01/11/20 11:38 AM EDT Acute pain of right knee from Last 3 Months Results * GA ARTHROCENTESIS ASPIR&/INJ MAJOR JT/BURSA W/O US (01/10/2025 [...] Laterality Modality Lower Extremities, Knee Right [facility] Imaging Narrative 01/10/2025 12:22 PM EDT Imaging Result: AP and lateral right knee Valgus alignment No acute fracture or dislocation Vascular calcification distal aspect of femur. Possible calcified loose body posterior recess. Near bone on bone articulation lateral joint line, mild flattening of articular surface Impression: moderate tricompartmental arthritic changes. Nikolai CAMPBELL IMG XR PROCEDURES Final Resul t from Last 3 Months Insurance [employer] MEDICARE Care Teams Electrical Mechanic Relationship Specialty Start Date End Date Danis Huang DO [address] [place] [address] PCP - General Internal Medicine 12/15/22 Nikolai Muñoz PA [address] [place] [address] PCP - Medical [facility] 08/03/2408/02
--- OUTSIDE RECORDS SUMMARY | 2025-04-05 10:52 | XMS_ITS | Encounter Summary ---
Author Organization [facility] Address [address] [place] [address] Phone Care Team Providers Care Director Translation Name Role Phone Danis Huang DO Primary Care Provider [phone] Danis Huang DO Primary Care Provider [phone] Xochitl Knox RN Unavailable Unavailable Encounter Details Date Type Department Care Team (Late st Contact Info) Description 11/25/2024 Scanned Document [facility] [address] [place] [address] Scanning, Generic Provider Social History Tobacco Use Types Packs/Day Years Used Date Smoking Tobacco: Never Smokeless Tobacco: Never Alcohol Use Standard Drinks/Week Comments Yes 0 (1 standard drink = 0.6 oz pur e alcohol) social [facility] Utilities Answer Date Recorded In the past 12 months has [facility] [employer], [employer], oil, or water [employer] threatened to shut off services in your [...] any time in the past 12 m [facility], were you homeless or living in a intermediate (including now)? No 11/29/2024 Comments Unknown Sex [...] Description 04/11/2025 11:30 AM EDT Office Visit [facility] [address] [place] [address] Dora Busby, BUDGET DIRECTOR-RN CARDIAC REHAB [address] [place] [address] documented as of this encounter [...] as of this encounter Care Teams Director Translation Relationship Specialty Start Date End Date Danis Huang DO PCP - General Internal Medicine 11/10/23 11/28/24 Danis [place] [address] PCP - General Internal Medicine 11/29/24 Xochitl Knox, auto garage mechanicToll Service Observer 12/05/24 01/11/25 documented as of this encounter
--- OUTSIDE RECORDS SUMMARY | 2025-04-05 10:52 | XMS_ITS | Encounter Summary ---
Author Organization [facility] Address [address] [place] [address] Phone Care Team Providers Care Tectonophysicist Name Role Phone Danis Huang DO Primary Care Provider [phone] Danis Huang DO Primary Care Provider [phone] Xochitl Knox RN Unavailable Unavailable Encounter Details Date Type Department Care Team (Late st Contact Info) Description 11/26/2024 Scanned Document [facility] [address] [place] [place] [address] Scanning, Generic Provider Social History Tobacco Use Types Packs/Day Years Used Date Smoking Tobacco: Never Smokeless Tobacco: Never Alcohol Use Standard Drinks/Week Comments Yes 0 (1 standard drink = 0.6 oz pur e alcohol) social [facility] Utilities Answer Date Recorded In the past 12 months has [facility] [employer], oil, or water [employer] threatened to shut off services in your [...] any time in the past [address] [facility], were you homeless or living in a snf (including now)? No 11/29/2024 Comments Unknown Sex [...] not drink 11/29/2024 11:01 PM ANILT Sho Humphrey RN Q3: How often do you have [...] 11:01 PM ANILT Sho Renteria RN * [place] Suicide Severity Rating Scale (Screener/Recent Self-Report) Question [...] Description 04/11/2025 11:30 AM EDT Office Visit [facility] [address] [facility] [address] [place] [address] Dora Busby, TWO NEEDLE MACHINE OPERATOR-DENTAL MECHANIC [address] [facility] [address] [place] [address] documented as of this encounter Visit Diagnoses Not on filedocumented in this encounter Additional Health Concerns Assessment Noted Time A fall risk assessment has been complete d for the patient 10/26/2024 3:12 PM EDT documented as of this encounter Care Teams Tectonophysicist Relationship Specialty Start Date End Date Danis Huang DO PCP - General Internal Medicine 11/10/23 11/28/24 Danis Huang DO [address] [address] PCP - General Internal Medicine 11/29/24 Xochitl Knox, ring stamperOperating Room Nurse 12/05/24 01/11/25 documented as of this encounter
--- OUTSIDE RECORDS SUMMARY | 2025-04-05 10:52 | XMS_ITS | Encounter Summary ---
Author Organization [facility] Address [id number] [address] [place] [address] Care Team Providers Care Credit Adjuster Name Role Phone Danis Huang DO Primary Care Provider [phone] Reason for Visit * Reason Onset Date Comments Cancelled procedure, surgical clearance needed 0 02/15/2021 Encounter Details Date Type Department Care Team (Late st Contact Info) Description 02/15/2021 Documentation [facility] [address] [place] [address] Chandni Scott RN Cancelled procedure, surgical clearance [...] on filedocumented in this encounter Care Teams Credit Adjuster Relationship Specialty Start Date End Date Danis Huang DO [address] [place] [address] PCP - General Internal Medicine 05/10/21 documented as of this encounter
--- OUTSIDE RECORDS SUMMARY | 2025-04-05 10:52 | XMS_ITS | Clinical Summary ---
Author Organization [facility] Address [address] [place] [address] Care Team Providers Care Broom Maker Name Role Phone Geronimo Vu Primary Care Provider [phone] Allergies No known active allergies Medications darifenacin [...] Vaccine (1 - 1-dose 75+ series) 2014 Advance Directive Discussion 08/03/2024 Influenza Vaccine (#1) 2025 Medical Devices Implanted Type Area Thermometer Production Worker Device Identifier Shelf Expiration Date Model / Serial / Lot Ins Actb 36mm 0d E X3 Trdnt - [id number] Implanted:Qty : 1 on 03/25/2011 at [facility] Joint - Hip Left: Bone - Hip [employer] 08/03/2015 [id number] / / [id number] Head Fem -5mm 36mm Hip Cocr - [id number] Implanted:Qty : 1 on 03/25/2011 at [facility] Joint - Hip Left: Bone - Hip [employer] 10/02/2015 [id number] / / [id number] Shell Actb 52mm T/H Pros - [id number] Implanted:Qty : 1 on 03/25/2011 at [facility] Joint Left: Bone - Hip [employer] 05/03/2015 [id number] / / [id number] Stem Fem Acld Tmzf 4.5 Hip - [id number] Implanted:Qty : 1 on 03/25/2011 at [facility] Joint Left: Bone - Hip [employer] 01/02/2016 [id number] / / [id number] Procedures Procedure Name Priority Date/Time Associated Diagnosis Comments BASIC METABOLIC PANEL Routine 03/26/2011 6:20 AM EDT from Last 3 Months or Most Recently Relevant to Health Maintenance Results * (ABNORMAL) BASIC METABOLIC PNL (03/26/2011 6:20 AM EDT) Glucose 122(H) 65 - 100 mg/dL [facility] BUN 18 8 - 25 mg/dL [facility] Creatinine 0.80 0.70 - 1.40 mg/dL [facility] Sodium 138 132 - 148 mmol/L [facility] Potassium 4.2 3.5 - 5.0 mmol/L [facility] Chloride 103 98 - 110 mmol/L [facility] CO2 28 23 - 32 mmol/L [facility] Calcium 8.4(L) 8.5 - 10.5 mg/dL [facility] Glom Filtration Rate (AA) >60 >60 [facility] Glom Filtration Rate (NOBLE) >60 >60 . [facility] Blood specimen (specimen) BLOOD SPECIMEN / Unknown 03/26/2011 6:20 AM EDT 03/26/2011 7:16 AM EDT [facility] Final Result [facility] [address] [address] from Last 3 Months or Most Recently Relevant to Health Maintenance Insurance MEDICARE Care Teams Broom Maker Relationship Specialty Start Date End Date Geronimo Vu PCP - General 02/11/10
--- OUTSIDE RECORDS SUMMARY | 2025-04-05 10:52 | XMS_ITS | Encounter Summary ---
Author Organization [facility] tem Address [id number] [address] [place] [address] Care Team Providers Care Multi Disciplined Language Analyst Name Role Phone Danis Huang DO Primary Care Provider [phone] Encounter Details Date Type Department Care Team (Late st Contact Info) Description 03/07/2021 Orders Only [facility] [address] [place] [address] Nikolai Muñoz, SHANNAN [address] [place] [address] Social History Tobacco Use Types Packs/Day Years [...] on filedocumented in this encounter Care Teams Multi Disciplined Language Analyst Relationship Specialty Start Date End Date Danis Huang DO [address] [place] [address] PCP - General Internal Medicine 05/10/21 documented as of this encounter
[2025-04-05 13:25] LABS: Alanine Aminotransferase 18 U/L (14-59); Anion Gap 11.2; Aspartate Amino Transferase 16 U/L (15-37); Blood Urea Nitrogen 19.0 mg/dL (7.0-18.0); Calcium 9.6 mg/dL (8.5-10.1); Carbon Dioxide 28.1 mmol/L (21.0-32.0); Chloride 106 mmol/L (98-107); Cholesterol 203 mg/dL (<=200); Estimated GFR (African America >60 (>=60 mL/min/1.73m^2); Estimated GFR (Non-African Ame >60 (>=60 mL/min/1.73m^2); Glucose 104 mg/dL (74-106); HDL Cholesterol 50 mg/dL (40-60); Potassium 4.3 mmol/L (3.5-5.1); Sodium 141 mmol/L (136-145); Triglycerides 151 mg/dL (<=150); VLDL CHOLESTEROL 30.2 mg/dL
== END 2025-04-05 10:48 | disposition home or self-care (01) ==
LOC: LAB 10:49
PROVIDERS: PCP Internal Medicine; Visit Provider Internal Medicine Cardiovascular Disease
DX: E78.2 Mixed hyperlipidemia (principal); I25.10 Atherosclerotic heart disease of native coronary artery without angina pectoris; I50.9 Heart failure, unspecified
CPT/HCPCS: 36415; 80048; 80061; 84450; 84460

== ENCOUNTER 2025-05-15 12:49 | Outpatient (OUT) | payer MEDICARE, SELFPAY ==
--- OUTSIDE RECORDS SUMMARY | 2025-05-08 13:00 | XMS_ITS | Encounter Summary ---
Author Organization [facility] Healthcare Address [address] [facility] [place] [address] Care Team Providers Care Food And Beverage Coordinator Name Role Phone Danis Huang DO Primary Care Provider [phone] Nikolai Muñoz Unavailable [phone] Reason for Visit * Reason Comments Toenail Care Established patient presents today with her for nail care. Encounter Details Date Type Department Care Team (Latest Contact Info) Description 05/08/2025 1:00 PM EDT Procedure Visit [facility] [address] [place] [id number] Germán Weir, RODOLFO [address] [place], [place] [id number] Dermatophytosis of nail (Primary Dx); Dystrophic nail; [...] - - Weight 64.9 kg (143 lb) 05/08/2025 1:04 PM EDT Height 165.1 cm (5' 5 ) 05/08/2025 1:04 PM EDT Body Mass Index 23.8 05/08/2025 1:04 PM EDT documented in this encounter Progress Notes * Germán Weir DPM - 05/08/2025 1:00 PM EDT Images from the original note were not included. Subjective Patient ID: Atiya Jha is a 85 y.o. female who presents for No chief complaint on file.. HPI HPI Onychomycosis/Toenail Fungus: Presents requesting nail care. Symptomatic toenail deformity Location: patient identifies multiple digits as problematic/symptomatic; great toes typically remain worse; toenail [...] marginal matricectomy bilateral great toes. Risk factors: Medical comorbidities. ASA therapy. Mobility, flexibility and dexterity restraints. toenail deformity. Shoe trauma and related complications. Aggravated by: shoe gear , pressure, walking; catching and snagging on clothing, bed sheets etc.. Medications Current Outpatient Medications: alendronate (Fosamax) 70 MG tablet, Take 1 tablet (70 mg) by mouth every 7 (seven) days Take in themorning with a full glass of water, on an empty stomach, and do not take anything else by mouth or lie down for the next 30 min., Disp: 4 tablet, Rfl: 11 aspirin 81 MG EC tablet, Take 81 mg by mouth Daily, Disp: , Rfl: atorvastatin (Lipitor) 80 MG tablet, Take 80 mg by mouth Daily, Disp: , Rfl: Calcium Carbonate-Vitamin D (Oyster Shell Calcium/D) 500-5 MG-MCG tablet, Take 1 tablet by mouth inthe morning., Disp: , Rfl: carvedilol (Coreg) 6.25 MG tablet, Take by mouth in the morning and in the evening. Take with meals., Disp: , Rfl: clopidogrel (Plavix) 75 MG tablet, Take 75 mg by mouth in the morning., Disp: , Rfl: docusate sodium (Colace) 50 MG capsule, Take 50 mg by mouth in the morning and 50 mg before bedtime., Disp: , Rfl: estradiol (Estrace) 0.1 MG/GM vaginal cream, 1 gram at bedtime for 2 weeks then twice weekly, Disp:42 g, Rfl: 3 hydroCHLOROthiazide (HYDRODiuril) 25 MG tablet, Take 25 mg by mouth every other day, Disp: , Rfl: losartan (Cozaar) 25 MG tablet, Take 25 mg by mouth Daily, Disp: , Rfl: mirabegron ER (Myrbetriq) 25 MG 24 hr tablet, Take 1 tablet (25 mg) by mouth at bedtime Do not crush, chew, or split., Disp: 90 tablet, Rfl: 3 nitroglycerin (Nitrostat) 0.4 MG SL tablet, Place 0.4 mg under the tongue every 5 (five) minutes ifneeded for chest pain, Disp: , Rfl: pantoprazole (ProtoNix) 40 MG EC tablet, Take 40 mg by mouth in the morning. Take before meals., Disp: , Rfl: ranolazine (Ranexa) 500 MG 12 hr tablet, TAKE 1 TABLET BY MOUTH TWICE DAILY DO NOT CRUSH, CHEW, OR SPLIT, Disp: , Rfl: Allergies Patient has no known allergies. Past Surgical History Past Surgical History: Procedure Laterality Date AMB [...] SURGICAL HISTORY 11/2020 right intrarticular hip injection [facility] BREAST REDUCTION 1999 TRIGGER FINGER RELEASE 03/02/2019 RT IF, MF, RF trigger release Dr Suazo TRIGGER FINGER RELEASE Left 06/10/2023 MF, Dr Suazo Family History Family History Problem Relation Name Age of Onset Heart disease Mother Stroke Mother Hypertension Mother Heart disease Father Heart disease Sister Kidney disease Brother Objective General Examination: GENERAL EXAMINATION: Alert and oriented. Pleasant disposition. Ambulatory with cane assist. Her spouse, Joey is present. Vascular: DORSALIS [...] efficacy. Hygiene and skin care measures discussed. Follow up: 3-4 months recommended. Procedure: Toenail Debridement: Aseptic technique: power/manual instrumentation: [...] Care Team (Late st Contact Info) Description 05/29/2025 1:30 PM EDT Office Visit [facility]ASMIN BURKETT [address] [facility] [address] [place] [phone] Dennis Miguel DO [address] [facility] [address] [place] [address] 05/31/2025 9:30 AM EDT Office Visit [facility] [address] [place] [address] Nikolai Muñoz PA [address] [place] [address] 06/07/2025 11:00 AM EST Clinical Support [facility] [address] [place] [address] Lisa Zamorano, [facility] [address] [place] [address] 08/21/2025 2:15 PM EST Procedure Visit [facility] [address] [facility] [place] [place] [phone] Germán Weir DPM [address] [place], [place] [id number] documented as of this encounter Visit Diagnoses Diagnosis Dermatophytosis of nail- Primary Dystrophic nail Other specified disease of nail Pain around toenail, right foot Pain around toenail, left foot documented in this encounter Care Teams Food And Beverage Coordinator Relationship Specialty Start Date End Date Danis Huang DO [address] [place] [address] PCP - General Internal Medicine 12/15/22 Nikolai Muñoz PA [address] [place] [phone] PCP - Medical Critz MA 08/03/2408/02 documented as of this encounter
--- OUTSIDE RECORDS SUMMARY | 2025-05-15 08:33 | XMS_ITS | Continuity of Care Document ---
Author Organization [facility] Address [address] [place] [address] Phone Care Team Providers Care Technical Manager [employer] Name Role Phone Danis Huang DO Primary Care Provider Danis Huang DO Attending Provider [phone] Xiomara Au MD Attending Provider Care Teams Patient Care Team Team Status: Active Member Role Status Dates Danis Huang DO Primary Care Provider Active Visit Care Team Team Status: Inactive Member Role Status Dates Danis Huang DO Primary Care Provider Active Start: February 24, 2025 End: February 24, 2025 Danis Huang DO Attending Provider Active Sta rt: February 24, 2025 End: February 24, 2025 Patient Care Team Team Status: Active Member Role Status Dates Danis Huang DO Primary Care Provider Active Start: April 05, 2025 Xiomara Au MD Attending Provider Active Start: April 05, 2025 Patient Care Team Team Status: Inactive Member Role Status Dates Danis Huang DO Primary Care Provider Active Start: May 15, 2025 End: May 15, 2025 Danis Huang DO Attending Provider Active Sta rt: May 15, 2025 End: May 15, 2025 Chief Complaint and Reason for Visit Chief Complaint Admit Date left side pain following fall May 152024 11:13am Reason for Visit Admit Date Abnormal serum protein electrophoresis J trinh 2024 10:16am Heart failure with improved ejection fra ction (HFimpEF) February 24, 2025 10:16am Hyponatremia February 24, 2025 10:1 6am Ischemic cardiomyopathy February 24, 2025 10:16am Primary hypertension February 24, 2025 10: 16am Rib fracture February 24, 2025 10:1 6am Allergies, Adverse Reactions, Alerts Allergen Type Severity Reaction Last Updated Verified Status No Known Allergies Allergy Unknown Octobe r 2024 11:36am Yes Active Social History Smoking Status Status Start Date End Date Date of Observa tion Never smoked tobacco (finding) February 10, 2025 11:13am Observation Status Observation Response Date of Response Legal Sex Female (finding) Sex Assigned At Female May Family History Relationship Condition Age at Onset Recorded Date/T seble sister Myocardial infarction Unknown father Heart disease Unknown Myocardial infarction Unknown Unknown Congestive heart failure Unknown Hypertension Unknown mother Unknown Problems Active Problems Medical Problem Onset Date Status Comments Abnormal serum protein electrophoresis Unknown Ac tive Chronic venous insufficiency of lower extremity Unknown Active Medicare annual wellness vis it, subsequent Unknown Active Heart failure with improved ejection fraction (HFimpEF) Unknown Active Echo: LVEF 60%, RVSP 30-40, , MR, TR - 01/2024, Age-related osteoporosis wit hout current pathological fracture Unknown Active Primary osteoarthritis of right hip Unknown Activ e Screening mammogram for breast cancer Unknown Act philippe Low back pain Unknown Active Rib fracture Unknown Active Aortic stenosis Unknown Active Unsteady gait Unknown Active Hypercholesterolemia Unknown Active Hyponatremia Unknown Active Ischemic cardiomyopathy Unknown Active PCI/ stent - 11/1999,PCI/stent LCX, PTCA distal LAD - 01/2023,PCI/stent LAD - 11/2023,PCI/stent ostial and distal LAD - 12/2024 Primary hypertension Unknown Active Lumbar spondylosis Unknown Active uses pain clinic for pain control ASHD (arteriosclerotic heart disease) Unknown Act philippe Echo: LVEF 60%, RVSP 30-40, , MR, TR - 01/2024,PCI/stent - 11/1999,PCI/stent LCX, PTCA distal LAD - 01/2023,PCI/stent LAD - 11/2023,PCI/stent ostial and distal LAD - 12/2024 Inactive/Resolved Problems Medical Problem Onset Date Status Comments Hypertensive urgency Unknown Resolved Unsteadiness Unknown Resolved Unsteadiness Unknown Resolved Hypertensive emergency Unknown Resolved Heart failure Unknown Resolved Contusion of left chest wall Unknown Resolved Hyponatremia Unknown Resolved Hyponatremia Unknown Resolved Chronic HFrEF (heart failure with reduced ejection fraction) Unknown Resolved Non-ST elevation (NSTEMI) myocardial infarction Unknow n Resolved ST elevation (STEMI) myocardial infarction Unknown Resolved Contusion of rib Unknown Resolved H/O total hip arthroplasty 2020 Resolved r ight Nausea & vomiting Unknown Resolved Accidental fall Unknown Resolved Debility Unknown Resolved Volume overload Unknown Resolved Medications Medication Status Dose Units Route Directions Qty Days St art Date Stop Date End Date Instructions Adherence Amoxicillin 500 mg capsule Discont inued 2000 MG PO As Directed February 26, 2024 12:00a m February 29, 2024 1:12p m Amoxicillin 500 mg capsule Discont inued 2000 MG PO As Directed February 29, 2024 1:12pm March 02, 2024 10:05 am Telmisartan 20 mg tablet Discont inued 0 .ROUTE .COMPLEX March 14, 2024 8:49am December 05, 2024 9:44a m TAKE 1 TABLET BY MOUTH DAILY Hydrochloro thiazide 25 mg tablet Discont inued 0 .ROUTE .COMPLEX March 29, 2024 9:38am October 31, 2024 9:19a m TAKE 1 TABLET BY MOUTH EVERY 48 HOURS Atorvastati n 80 mg tablet Discont inued 0 .ROUTE .COMPLEX 100 [facility] er 2023 2:15pm February 02, 2025 12:59 pm TAKE 1 TABLET BY MOUTH EVERY DAY Clopidogrel 75 mg tablet Active 75 MG PO Daily 90 October 26, 2024 12:00a m Complies with drug therapy Pantoprazol e 40 mg tablet,tasha yed release (DR/EC) Discont inued 40 MG PO Daily 90 October 26, 2024 12:00a m October 28, 2024 12:55 pm take on empty stomach, 30 minutes prior to bkfst Pantoprazol e 40 mg tablet,tasha yed release (DR/EC) Discont inued 40 MG PO Daily October 28, 2024 12:55p m February 24, 2025 10:25 am take on empty stomach, 30 minutes prior to bkfst Hydrochloro thiazide 25 mg tablet Discont inued 0 .ROUTE .COMPLEX October 31, 2024 9:19am February 09, 2025 11:02 pm TAKE 1 TABLET BY MOUTH EVERY 48 HOURS Carvedilol 3.125 mg tablet Active 3.125 MG PO Twice daily with meals 60 January 26, 2025 2:04pm Complies with drug therapy Atorvastati n 80 mg tablet Active 80 MG PO Every evening 100 100 February 02, 2025 12:59p m Complies with drug therapy Ranolazine 500 mg tablet extended release 12 hr Active 500 MG PO Twice daily 60 30 March 01, 2025 6:05pm Complies with drug therapy Irbesartan- Hydrochloro thiazide 150-12.5 mg tablet Discont inued 1 TAB PO Daily November 02, 2017 12:00a m January 14, 2023 11:55 am Pravastatin 40 mg tablet Discont inued 1 TAB PO Bedtime November 02, 2017 12:00a m January 16, 2023 1:36p m Atenolol 25 mg Tablet Discont inued 25 MG PO Bedtime November 02, 2017 12:00a m January 16, 2023 1:36p m Aspirin (Aspir-81) 81 mg Tablet,Tasha yed Release (Dr/Ec) Active 81 MG PO Daily November 02, 2017 12:00a m Complies with drug therapy Diclofenac Sodium 75 mg Tablet,Tasha yed Release (Dr/Ec) Discont inued 75 MG PO Twice daily November 02, 2017 12:00a m Novem ana m 2017 2:38p m Omeprazole Magnesium (Prilosec Otc) 20 mg Tablet,Tasha yed Release (Dr/Ec) Discont inued 20 MG PO Daily November 02, 2017 12:00a m October 26, 2024 10:11 pm Alendronate 70 mg tablet Active 70 MG PO every week January 14, 2023 12:00a m EVERY THURSDAY Complies with drug therapy Telmisartan -Hydrochlor othiazid 40-12.5 mg tablet Discont inued 1 TAB PO Daily January 14, 2023 12:00a m November 17, 2023 12:54 pm Docusate Sodium 50 mg Capsule Discont inued 50 MG PO Twice daily January 14, 2023 12:00a m November 29, 2024 8:18a m Cholecalcif bettie (Vitamin D3) (Vitamin D3) 25 mcg (1,000 unit) Capsule Discont inued 25 MCG PO Daily January 14, 2023 12:00a m November 17, 2023 12:55 pm Atorvastati n 80 mg Tablet Discont inued 80 MG PO Every evening 30 January 16, 2023 12:00a m Decem ana m 2023 2:15p m Carvedilol 6.25 mg Tablet Discont inued 6.25 MG PO Twice daily with meals 60 January 16, 2023 12:00a m January 26, 2025 2:05p m Nitroglycer in 0.4 mg Tablet, Sublingual Active 0.4 MG SUBLIN GUAL Q5M as needed for Chest Pain 30 January 16, 2023 12:00a m Complies with drug therapy Ticagrelor (Brilinta) 90 mg Tablet Discont inued 90 MG PO Twice daily 180 January 16, 2023 12:00a m October 26, 2024 10:06 pm Furosemide (Lasix) 40 mg tablet Discont inued 40 MG PO Daily December 23, 2023 12:00a m December 24, 2023 9:54a m Hydrocodone -Acetaminop hen 5-325 mg tablet Discont inued 1 TAB PO Q6H as needed for Pain 10 February 03, 2025 February 06, 2025 2:31p m Hydrochloro thiazide 25 mg tablet Active 12.5 MG PO Daily February 09, 2025 12:00a m On Hold: Hold until Thursday TAKE 1 TABLET BY MOUTH EVERY 48 HOURS Complies with drug therapy Lidocaine 4 % adhesive patch,medic ated Active 1 PATCH TOPICA L Daily as needed for pain (scale score 4-6) February 10, 2025 12:00a m Complies with drug therapy Cefuroxime Axetil 500 mg tablet Discont inued 500 MG PO Twice daily February 12, 2025 12:00a m February 24, 2025 10:24 am Telmisartan -Hydrochlor othiazid (Micardis Hct) 80-12.5 mg tablet Discont inued 1 TAB PO Daily November 17, 2023 12:00a m December 24, 2023 9:54a m On Hold: hypotension Calcium Carbonate-V itamin D3 500 mg-5 mcg (200 unit) tablet Active 1 TAB PO Daily November 17, 2023 12:00a m Complies with drug therapy Nitroglycer in (Nitro-Dur) 0.2 mg/hr patch 24 hour Discont inued 1 PATCH TRANSD ERML Daily November 19, 2023 12:00a m Lili francois 2023 10:50 am allow nitrate-free interval of approx. 10-12 hrs per 24-hour period Acetaminoph en (Tylenol Extra Strength) 500 mg tablet Active 1000 MG PO Every 6 hours as needed for pain November 16, 2023 12:00a m Complies with drug therapy Estradiol 0.01 % (0.1 mg/gram) cream Active 1 APPLIC ATOR VAGINA L Daily November 25, 2024 12:00a m Complies with drug therapy Docusate Sodium 100 mg Capsule Active 200 MG PO Twice daily as needed for Constipatio n 0 November 29, 2024 12:00a m Complies with drug therapy Heparin(Por cine) In 0.45% Nacl 25,000 unit/250 mL Parenteral Solution Discont inued [id number] UNIT IV .Q24H 0 November 29, 2024 12:00a m December 05, 2024 9:44a m Diclofenac Sodium 1 % Gel Discont inued 4 GM TOPICA L Four times daily 0 November 29, 2024 12:00a m December 05, 2024 9:44a m Mirabegron (Myrbetriq) 25 mg tablet extended release 24 hr Active 25 MG PO Bedtime March 02, 2024 12:00a m Complies with drug therapy Telmisartan 20 mg tablet Discont inued 20 MG PO Daily December 24, 2023 12:00a m Augus t 2023 8:49a m Hydrochloro thiazide 25 mg tablet Discont inued 25 MG PO Every 48 hours December 24, 2023 12:00a m Augus t 2023 9:38a m Molnupiravi r 200 mg capsule Discont inued 800 MG PO Every 12 hours 40 5 Sept2023 12:00a m November 25, 2024 4:03p m Hydroxyzine Hcl 25 mg tablet Discont inued 25 MG PO Daily at bedtime October 20, 2023 12:00a m November 16, 2023 2:04p m Nitrofurant oin Monohyd/M-C ryst (Macrobid) 100 mg capsule Discont inued 100 MG PO Twice daily 10 5 January 29, 2024 12:00a m March 02, 2024 10:05 am must administer with a meal/food Nitrofurant oin Monohyd/M-C ryst 100 mg capsule Discont inued 100 MG PO Every 12 hours 10 5 Novemb er 2023 1:00am Febru alin 2024 3:56p m must administer with a meal/food Nitrofurant oin Monohyd/M-C ryst 100 mg capsule Discont inued 100 MG PO Every 12 hours 10 5 Februa ry 2024 3:56pm November 25, 2024 4:03p m must administer with a meal/food Ranolazine 500 mg tablet extended release 12 hr Discont inued 500 MG PO Twice daily December 05, 2024 12:00a m March 01, 2025 6:06p m Losartan 25 mg tablet Active 25 MG PO Daily December 05, 2024 12:00a m On Hold: Hold until BMP on Thursday Complies with drug therapy Immunizations Immunization Event Date Not Given Reason Dose Number Public Health Advisor Lot Number Vaccine Information Statement (VIS) Detail Administration Location COVID-19 mRNA, Comirnaty ([employer]) August 24, 2020 COVID-19 mRNA, Comirnaty ([employer]) September 23, 2020 COVID-19 mRNA, Comirnaty ([employer]) May 06, 2021 COVID-19 Comirnaty ([employer]) Tri-Sucrose November 22, 2021 COVID-19 mRNA Bivalent Booster ([employer]) May 06, 2022 Fluzone TIV High-Dose 65YR+ July 01, 2024 [id number] [facility] Fluzone TIV High-Dose 65YR+ April 29, 2019 Fluzone TIV High-Dose 65YR+ April 03, 2020 Fluzone TIV High-Dose 65YR+ May 04, 2020 [id number] Fluzone TIV High-Dose 65YR+ April 20, 2025 [id number] Fluzone QIV High-Dose 65YR+ April 24, 2021 [id number] Fluzone QIV High-Dose 65YR+ May 06, 2022 [id number] Fluzone QIV High-Dose 65YR+ May 06, 2023 [id number] A influenza, unspecified formulation May 06, 2023 Pneumococcal Polysacc. Vaccine, 23 valent August 03, 2004 Pneumococcal Polysacc. Vaccine, 23 valent August 03, 2010 Quadrivalent Influenza May 04, 2017 Quadrivalent Influenza April 28, 2018 Zoster Vaccine Recombinant, Adjuvanted March 28, 2019 Shingles (Zoster) April 15, 2011 Medical Equipment Device Date Implanted Device Details CL STENT GRZEGORZ FRONTIER 2.25 X 22 January 14, 2023 Femoral artery closure plug/patch, synthetic polymer January 14, 2023 MARCELINO: [id number] Issuing Agency: [employer] Device Id: [id number] Lot Number: [id number] CL STENT GRZEGORZ FRONTIER 2.5 X 15 November 18, 2023 Femoral artery closure plug/patch, synthetic polymer November 18, 2023 MARCELINO: [id number] Issuing Agency: [employer] Device Id: [id number] Lot Number: [id number] Relevant Diagnostic Tests and/or Laboratory Data Laboratory Results Test Collection Date/Time Result Date/Time Result Interpretation Reference Range Result Comment Performing Site Cholester ol/HDL Ratio April 05, 2025 11:08am April 05, 2025 11:08am 4.1 3.3 - 4.4 LOW RISK4.4 - 7.1 AVERAGE RISK7.1 - 11.0 MODERATE RISK>11.0 HIGH RISK Alanine Aminotran sferase (ALT/SGPT ) April 05, 2025 11:08am April 05, 2025 11:08am 18 U/L 14-59 Aspartate Amino Transf (AST/SGOT ) April 05, 2025 11:08am April 05, 2025 11:08am 16 U/L 15-37 Anion Gap April 05, 2025 11:08am April 05, 2025 11:08am 11.2 Cholester ol Level April 05, 2025 11:08am April 05, 2025 11:08am 203 mg/dL Above high normal <=200 BUN/Creat inine Ratio April 05, 2025 11:08am April 05, 2025 11:08am 21.6 HDL Cholester ol April 05, 2025 11:08am April 05, 2025 11:08am 50 mg/dL 40-60 > or =60 mg/dl - LOW CARDIOVASCUL AR RISK<40 mg/dl - HIGH CARDIOVASCUL AR RISK Blood Urea Nitrogen April 05, 2025 11:08am April 05, 2025 11:08am 19.0 mg/dL Above high normal 7.0-18.0 LDL Cholester ol, Calculate d April 05, 2025 11:08am April 05, 2025 11:08am 123.0 mg/dL <100 mg/dl [id number] 29 mg/dl NEAR OR ABOVE [id number] 59 mg/dl BORDERLINE [id number] mg/dl HIGH>190 mg/dl VERY HIGH Calcium Level April 05, 2025 11:08am April 05, 2025 11:08am 9.6 mg/dL 8.5-10.1 Triglycer ides Level April 05, 2025 11:08am April 05, 2025 11:08am 151 mg/dL Above high normal <=150 Chloride Level April 05, 2025 11:08am April 05, 2025 11:08am 106 mmol/L 98-107 VLDL Cholester ol April 05, 2025 11:08am April 05, 2025 11:08am 30.2 mg/dL Carbon Dioxide Level April 05, 2025 11:08am April 05, 2025 11:08am 28.1 mmol/L 21.0-32.0 Creatinin e April 05, 2025 11:08am April 05, 2025 11:08am 0.88 mg/dL 0.55-1.02 Estimated GFR () April 05, 2025 11:08am April 05, 2025 11:08am >60 >=60 mL/min/1.7 3m 2 Estimated GFR (Non-Afri can Estonian April 05, 2025 11:08am April 05, 2025 11:08am >60 >=60 mL/min/1.7 3m 2 Glucose Level April 05, 2025 11:08am April 05, 2025 11:08am 104 mg/dL 74-106 Potassium Level April 05, 2025 11:08am April 05, 2025 11:08am 4.3 mmol/L 3.5-5.1 Sodium Level April 05, 2025 11:08am April 05, 2025 11:08am 141 mmol/L 136-145 Vital Signs Vital Reading Result Reference Range Collection Date/Time Height 65 [in_i] February 24, 2025 10:17am Weight 64.41 kg February 24, 2025 10:17am Heart Rate 70 /min 60-100 February 24, 2025 10:17am Respiratory rate 12 /min 12-24 February 24, 2025 10:17am Oxygen saturation by Pulse oximetry 97 % 95-100 February 24, 2025 10:1 7am BP Systolic 143 mm[Hg] 100-140 February 24, 2025 10:17am BP Diastolic 81 mm[Hg] 60-100 February 24, 2025 10:17am BMI (Body Mass Index) 23.6 kg/m2 February 012024 10:17am Height 65 [in_i] May 15, 11:48am Weight 64.86 kg May 15 11:48am Heart Rate 71 /min 60-100 May 15, 025 11:48am Respiratory rate 12 /min 12-May 11:48am BP Systolic 204 mm[Hg] 100-140 May 15, 025 11:48am BP Diastolic 107 mm[Hg] 60-100 May 15, 025 11:48am BMI (Body Mass Index) 23.8 kg/m2 Octobe r 2024 11:48am Advance Directives Advance Directive Response Recorded Date/ Time Advance Directives Yes December 02, 2024 11:31am Insurance Providers Guarantor Atiya Jha Address [address] [place] [address] [place] [address] Contact Info. Home Phone: Payer Policy Id Subscriber's Name Subscriber Id Effectiv e Date Expiration Date Medicare [id number] Atiya Jha [id number] Encounters Encounter Location(s) Arrival/Admit Date Discharge/Depart Date Provider(s) Departed Physician/Prov ider Office Visit -[facility] February 24, 2025 10:16am February 24, 2025 10:55am Danis Huang DO Non-patient / Non-visit -[facility] April 05, 2025 11:08am Xiomara Au MD Departed Physician/Prov ider Office Visit -[facility] May 15, 2025 11:13am May 15, 2025 12:32pm Danis Huang DO Recent Diagnosis Onset Date Admit Date Abnormal serum protein electrophoresis Unknown February 24, 2025 10:16am Heart failure with improved ejection fraction (HFimpEF) Unknown February 24, 2025 10:16am Hyponatremia Unknown February 24, 2025 10:16am Ischemic cardiomyopathy Unknown January 10:16am Primary hypertension Unknown February 24, 2025 10:16am Rib fracture Unknown February 24, 2025 10:16am Assessments Diagnosis Onset Date Resolution Status Admit Date Abnormal serum protein electrophoresis acute February 24, 2025 10:16am Heart failure with improved ejection fraction (HFimpEF) acute February 24, 2025 10:16am Hyponatremia acute February 24 10:16am Ischemic cardiomyopathy acute J trinh 2024 10:16am Primary hypertension acute February 24, 2025 10:16am Rib fracture acute February 24 10:16am Plan of Treatment Author Danis Huang [facility] Authored February 24, 2025 11:0 6am Asymmetrical gamma detected on SPEP IF w/o monoclonality Repeat labs in 4-6 months Left 12th rib fracture after in home fall Instructed on ice/heat and Tylenol Topical Lidocaine as needed No obvious distress, will heal in 4-6wks Presented to hospital w/ N/V/D. serum Osmo - low urine Osmo - elevated urine Na - elevated Consistent w/ volume depletion from N/V and/ordiuretic use verses SIADH Holding diuretic and Losartan Recheck labs at wellness examination I have instructed this patient to consume a healthy, low-fat, low-salt diet. I have also encouraged them to continue exercise with weight loss to achieve/maintain a BMI < 30. I have instructed this patient on the correct procedure for obtaining home BP measurements: - rest for 5 minutes w/o talking. - positioned w/ feet on floor and arms supported. - average best 2/3 readings w/ goal < 135/85. Reviewed home BP logs - averaging 120s/80s This patient is stable without activity related chest pain, dyspnea or lightheadedness. I instructed them to continue exercise at least 3x weekly and consume a low salt, low fat, high fiber diet. I instructed them to continue secondary prevention measures in reducing risks for recurrent events. PCI/stent - 11/1999, PCI/stent LCX, PTCA distal LAD - 01/2023, PCI/stent LAD - 11/2023, PCI/stent ostial and distal LAD - 12/2024 I have instructed this patient on a low salt diet, exercise and daily weights. I have instructed them to notify the office for any on any unexpected weight gain > 3lbs and /or increased dyspnea on exertion, difficulty breathing during sleep, worsening lower extremity swelling, chest pain or lightheadedness. I have reviewed the GDMT with beta blockers, ERUM/ARB or ARNI, MRA and a SGLT-2i. Echo: LVEF 60%, RVSP 30-40, , MR, TR - 01/2024, Future Tests Future scheduled test information is unavailable Pending Tests Pending diagnostic test information is unavailable Future Visits Future appointment information is unavailable Referrals to Other Providers Referral information is unavailable Future Procedures Future procedure information is unavailable Future Medications Future medication information is unavailable Patient Instructions Patient instructions are unavailable
--- OUTSIDE RECORDS SUMMARY | 2025-05-15 12:53 | XMS_ITS | Encounter Summary ---
Author Organization [facility] Address [address] [place] [address] Care Team Providers Care Tentmaker Name Role Phone SalDanis She BRUSH Primary Care Provider [phone] Nikolai Muñoz Unavailable [phone] Encounter Details Date Type Department Care Team (Late st Contact Info) Description 05/13/2023 Abstract [facility] [address] [place] [phone] Germán Weir, DPM [address] [place], [place] [id number] Social History Tobacco Use Types Packs/Day Years [...] EDT Office Visit [facility] [address] [facility] [address] [place] [address] Dennis Miguel DO [address] [facility] [address] [place] [address] 05/31/2025 9:30 AM EDT Office Visit [facility] [address] [place] [address] Nikolai Muñoz PA [address] [place] [address] 06/07/2025 11:00 AM EST Clinical Support [facility] [address] [place] [phone] Lisa Zamorano, [facility] [address] [place] [address] 08/21/2025 2:15 PM EST Procedure Visit [facility] [address] [place] [phone] Germán Weir, DPM [address] [place], [place] [id number] documented as of this encounter Visit Diagnoses Not on filedocumented in this encounter Care Teams Tentmaker Relationship Specialty Start Date End Date Danis Huang DO [address] [place] [address] PCP - General Internal Medicine 12/15/22 Nikolai Muñoz PA [address] [place] [address] PCP - [facility] [place] 08/03/2408/02 documented as of this encounter
--- OUTSIDE RECORDS SUMMARY | 2025-05-15 12:53 | XMS_ITS | Encounter Summary ---
Author Organization [facility] Sys tem Address [id number] [address] [place] [address] Care Team Providers Care Picker Tender Name Role Phone Danis Haung DO Primary Care Provider [phone] Encounter Details Date Type Department Care Team (Late st Contact Info) Description 05/23/2024 Orders Only [facility] [address] [place] [address] Ref Prov, [place] [address] Social History Tobacco Use Types Packs/Day Years [...] on filedocumented in this encounter Care Teams Picker Tender Relationship Specialty Start Date End Date Danis Huang DO [address] [place] [address] PCP - General Internal Medicine 05/10/21 documented as of this encounter
--- OUTSIDE RECORDS SUMMARY | 2025-05-15 12:53 | XMS_ITS | Encounter Summary ---
Author Organization [facility] Address [address] [facility] [place] [address] Care Team Providers Care Service Restorer Emergency Name Role Phone Danis Huang DO Primary Care Provider [phone] Nikolai Muñoz Unavailable [phone] Encounter Details Date Type Department Care Team (Late st Contact Info) Description 05/08/2025 Bamboo flowsheet [facility] [address] [place] [address] Germán Weir DPM [address] [place], [place] [phone] Social History Tobacco Use Types Packs/Day Years [...] Description 05/29/2025 1:30 PM EDT Office Visit KIERANKristi Sargent MADELAINE [address] [place] [address] Dennis Miguel DO [address] [place] [address] 05/31/2025 9:30 AM EDT Office Visit [facility] [address] [place] [address] Nikolai Muñoz PA [address] [facility] [place] [address] 06/07/2025 11:00 AM EST Clinical Support [facility] [address] [place] [address] Lisa Zamorano, [facility] [address] [place] [address] 08/21/2025 2:15 PM EST Procedure Visit [facility] [address] [place] [address] Germán Weir, DPM [address] [place], [place] [address] documented as of this encounter Visit Diagnoses Not on filedocumented in this encounter Care Teams Service Restorer Emergency Relationship Specialty Start Date End Date Danis Huang DO [address] [place] [address] PCP - General Internal Medicine 12/15/22 Nikolai Muñoz PA [address] [place] [address] PCP - Medical [place] 08/03/2408/02 documented as of this encounter
--- OUTSIDE RECORDS SUMMARY | 2025-05-15 12:53 | XMS_ITS | Encounter Summary ---
Author Organization [facility] Address [address] [place] [address] Care Team Providers Care Register Clerk Name Role Phone Danis Huang DO Primary Care Provider [phone] Nikolai Muñoz Unavailable [phone] Encounter Details Date Type Department Care Team (Latest Contact Info) Description 05/08/2025 Travel Social History Tobacco Use Types Packs/Day [...] EDT Office Visit [facility]MIN [facility]KETT [address] [facility] [address] [place] [address] Dennis Miguel DO [address] [place] [address] 05/31/2025 9:30 AM EDT Office Visit [facility] [address] [place] [address] Nikolai Muñoz PA [address] [place] [address] 06/07/2025 11:00 AM EST Clinical Support [facility] [address] [facility] [address] [place] [address] Lisa Zamorano, [facility] [address] [place] [address] 08/21/2025 2:15 PM EST Procedure Visit [facility] [address] [place] [address] Germán Weir, DPM [address] [place], [place] [address] documented as of this encounter Visit Diagnoses Not on filedocumented in this encounter Care Teams Register Clerk Relationship Specialty Start Date End Date Danis Huang DO [address] [place] [address] PCP - General Internal Medicine 12/15/22 Nikolai Muñoz PA [address] [place] [address] PCP - Medical [place] 08/03/2408/02 documented as of this encounter
--- OUTSIDE RECORDS SUMMARY | 2025-05-15 12:53 | XMS_ITS | Clinical Summary ---
Author Organization [facility] [facility] Address [id number] [address] [place] [address] Care Team Providers Care Custom Tailor Apprentice Name Role Phone Danis Huang Primary Care Provider [phone] Allergies No known active allergies Medications telmisartan-hyd [...] (02/07/2021): Added automatically from request for surgery [id number] Primary osteoarthritis of right hip 07/19/2020 Overview (07/19/2020): Added automatically from request for surgery [id number] Ischial bursitis 07/07/2019 Overview (07/07/2019): Added automatically from request for surgery [id number] Hip pain 12/18/2009 DDD (degenerative disc disease), [...] 1958 Fall Risk Screening 2004 COVID-19 Vaccine (2024-2 6 season) 2025 05/06/2022, 11/22/2021, 05/06/2021, Additional history exists Influenza Vaccine 04/03/2025 07/01/2024, , 05/06/2022, Additional history exists Tobacco Screening 06/24/2025 06/24/2024 Zoster (Shingles) Vaccine Completed 2018, 03/28/2019, 04/15/2011 Goals Goal Patient Goal Type Associated Problems Recent Progress Patient-Stated? Author Home General Yes Nivia Bertrand LSW Note: Evaluation of progress towards goal: Home with [facility]. Medical Devices Implanted Type Area Experience Planning Strategist Device Identifier Shelf Expiration Date Model / Serial / Lot Shell Actb 56mm Hip 4 Hl Clr Cd [place] G7 F Hmsphr - [id number] - [id number] Implanted:Qt y: 1 on 06/05/2021 by González Suazo, DO at [facility] Orthopedic Implant Right: Hip Gian [employer] 02/19/2031 [id number] / [id number] / [id number] Liner Actb 36mm F Ntrl Arcomxl G7 Hip - [id number] - [id number] Implanted:Qt y: 1 on 06/05/2021 by González Suazo, DO at [facility] Orthopedic Implant Right: Hip [employer] [id number] 02/08/2025 [id number] / [id number] / [id number] Stem Fem 5 Std Avenir Cmplt Hip Colr Strl Lf - [id number] - [id number] Implanted:Qt y: 1 on 06/05/2021 by González Suazo DO at [facility] Orthopedic Implant Right: Hip [employer] [id number] 08/02/2025 [id number] / [id number] / [id number] Head Fem 36mm +3.5mm Vrsy Cocr Hip Rpl [id number] - [id number] - [id number] Implanted:Qt y: 1 on 06/05/2021 by González Suazo DO at [facility] Orthopedic Implant Right: Hip [employer] [id number] 06/02/2028 [id number] / [id number] / [id number] Screw Bn 30mm 6.5mm St Actb Rory Trlg Strl Rpl [id number] + [id number] + [id number] - [id number] - [id number] Implanted:Qt y: 1 on 06/05/2021 by González Suazo DO at [facility] Screw Right: Hip [employer] [id number] 08/02/2029 [id number] / [id number] / [id number] Screw Bn 30mm 6.5mm St Actb Rory Trlg Strl Rpl [id number] + [id number] + [id number] - [id number] - [id number] Implanted:Qt y: 1 on 06/05/2021 by González Suazo DO at [facility] Screw Right: Hip [employer] [id number] 07/02/2029 [id number] / [id number] / [id number] Screw Bn 30mm 6.5mm St Actb Rory Trlg Strl Rpl [id number] + [id number] + [id number] - [id number] - [id number] Implanted:Qt y: 1 on 06/05/2021 by González Suazo DO at [facility] Screw Right: Hip [employer] [id number] 12/16/2030 [id number] / [id number] / [id number] Insurance [employer] Member Subscriber Plan / Payer (Ef fective 2024-Present) Name:Atiya Jha Relation to Subscriber:Self Name:Atiya Jha Payer ID:Not on file Type:Not on file Address: [place] [phone] Advance Directives Documents on File Type Date Recorded 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
--- OUTSIDE RECORDS SUMMARY | 2025-05-15 12:53 | XMS_ITS | Encounter Summary ---
Author Organization [facility] Address [id number] [address] [place] [address] Care Team Providers Care Lock Fitter Name Role Phone Danis Huang DO Primary Care Provider [phone] Encounter Details Date Type Department Care Team (Late st Contact Info) Description 05/18/2024 Orders Only [facility] [address] [place] [address] Transcribe, Orders Support User Pain (Primary [...] pain documented in this encounter Care Teams Lock Fitter Relationship Specialty Start Date End Date Danis Huang DO [address] [place] [address] PCP - General Internal Medicine 05/10/21 documented as of this encounter
--- OUTSIDE RECORDS SUMMARY | 2025-05-15 12:53 | XMS_ITS | Encounter Summary ---
Author Organization [facility] Address [address] [place] [address] Care Team Providers Care Hr Representative Name Role Phone Danis Huang DO Primary Care Provider [phone] Nikolai Muñoz Unavailable [phone] Encounter Details Date Type Department Care Team (Latest Contact Info) Description 05/04/2025 Travel Social History Tobacco Use Types Packs/Day [...] EDT Office Visit YASMIN BURKETT [address] [email or web address] [place] [address] Dennis Miguel DO [address] [place] [address] 05/31/2025 9:30 AM EDT Office Visit [facility] [address] [place] [address] Nikolai Muñoz PA [address] [place] [address] 06/07/2025 11:00 AM EST Clinical Support [facility] [address] [facility] [address] [place] [address] Lisa Zamorano, [facility] [address] [place] [place] [address] 08/21/2025 2:15 PM EST Procedure Visit [facility] [address] [place] [address] Germán Weir, DPM [address] [place], [place] [address] documented as of this encounter Visit Diagnoses Not on filedocumented in this encounter Care Teams Hr Representative Relationship Specialty Start Date End Date Danis Huang DO [address] [place] [address] PCP - General Internal Medicine 12/15/22 Nikolai Muñoz PA [address] [place] [address] PCP - Medical [place] 08/03/2408/02 documented as of this encounter
--- OUTSIDE RECORDS SUMMARY | 2025-05-15 12:53 | XMS_ITS | Encounter Summary ---
Author Organization [facility] Address [address] [place] [address] Phone Care Team Providers Care Rod Finisher Name Role Phone Danis Huang DO Primary Care Provider [phone] Danis Huang DO Primary Care Provider [phone] Xochitl Knox RN Unavailable Unavailable Encounter Details Date Type Department Care Team (Late st Contact Info) Description 11/16/2023 Scanned Document [facility] [address] [place] [address] Scanning, Generic Provider Social History [...] Care Team (Late st Contact Info) Description 11/22/2025 3:20 PM EDT Office Visit [facility] [address] [address] Xiomara Au MD [address] [facility] 2, [address] [place] [address] documented as of this encounter Visit Diagnoses Not on filedocumented in this encounter Additional Health Concerns Assessment Noted Time A fall risk assessment has been complete d for the patient 06/15/2023 9:11 AM EST documented as of this encounter Care Teams Rod Finisher Relationship Specialty Start Date End Date Danis Huang DO PCP - General Internal Medicine 11/10/23 11/28/24 Danis Huang DO [address] [place] [address] PCP - General Internal Medicine 11/29/24 Xochitl Knox RN Care Interlocking Installer 12/05/24 01/11/25 documented as of this encounter
--- OUTSIDE RECORDS SUMMARY | 2025-05-15 12:54 | XMS_ITS | Encounter Summary ---
Author Organization [facility] Address [address] [place] [address] Phone Care Team Providers Care Voip Engineer Name Role Phone Danis Huang DO Primary Care Provider [phone] Danis Huang DO Primary Care Provider [phone] Danis Huang DO Primary Care Provider [phone] Xochitl Knox RN Unavailable Unavailable Encounter Details Date Type Department Care Team (Late st Contact Info) Description 10/17/2021 Orders Only [facility] [address] [place] [address] Conversion, Onbase Social History Tobacco Use Types [...] Description 11/22/2025 3:20 PM EDT Office Visit [facility] [address] [facility] [address] [place] [address] Xiomara Au MD 703 [facility] [address] [place] [address] Scheduled Orders Name Type Priority Associated Diagnoses Orde r Schedule OUTSIDE LAB SCAN Lab Ordered: 10/17/2021 documented as of this encounter Visit Diagnoses Not on filedocumented in this encounter Care Teams Voip Engineer Relationship Specialty Start Date End Date Danis Huang DO PCP - General 04/16/21 11/09/23 Danis Huang DO PCP - General Internal Medicine 11/10/23 11/28/24 [place] [address] [place], [place] [address] [address] PCP - General Internal Medicine 11/29/24 Xochitl Knox, home office claim specialistSr Account Executive 12/05/24 01/11/25 documented as of this encounter
--- OUTSIDE RECORDS SUMMARY | 2025-05-15 12:54 | XMS_ITS | Encounter Summary ---
Author Organization [facility] Address [address] [place] [address] Phone Care Team Providers Care Salesperson Wigs Name Role Phone Danis Huang DO Primary Care Provider [phone] Danis Huang DO Primary Care Provider Xochitl Knox RN Unavailable Unavailable Encounter Details Date Type Department Care Team (Late st Contact Info) Description 11/19/2023 Scanned Document [facility] [address] [place] [address] Scanning, Generic Provider Social History [...] Description 11/22/2025 3:20 PM EDT Office Visit [facility] [address] [address] Xiomara Au MD 703 [facility] 2, [address] [place] [address] documented as of this encounter Visit Diagnoses Not on filedocumented in this encounter Additional Health Concerns Assessment Noted Time A fall risk assessment has been complete d for the patient 06/15/2023 9:11 AM EST documented as of this encounter Care Teams Salesperson Wigs Relationship Specialty Start Date End Date Danis Huang DO PCP - General Internal Medicine 11/10/23 11/28/24 Danis Huang DO [address] [place] [address] PCP - General Internal Medicine 11/29/24 Xochitl Knox RN Care Primary Mill Roller 12/05/24 01/11/25 documented as of this encounter
--- OUTSIDE RECORDS SUMMARY | 2025-05-15 12:54 | XMS_ITS | Encounter Summary ---
Author Organization [facility] Address [address] [place] [address] Phone Care Team Providers Care Tobacco Packing Machine Operator Name Role Phone SalDanis Primary Care Provider Encounter Details Date Type Department Care Team (Late st Contact Info) Description 02/09/2025 Scanned Document [facility] [address] [place] [address] Scanning, Generic Provider Social History Tobacco Use Types Packs/Day Years Used Date Smoking Tobacco: Never Smokeless Tobacco: Never Alcohol Use Standard Drinks/Week Comments Yes 0 (1 standard drink = 0.6 oz pur e alcohol) social [facility] Utilities Answer Date Recorded In the past 12 months has e [employer], gas, oil, or water [employer] threatened to shut off services in your [...] any time in the past 12 m [facility], were you homeless or living in a assisted (including now)? No 11/29/2024 Comments Unknown Sex and Gender Information Value Date Recorded Sex Assigned at Not on file Legal Sex Female 1:24 PM EST Gender Identity Not on file Sexual Orientation Not on file documented as of this encounter Plan of Treatment Upcoming Encounters Date Type Department Care Team (Verenice moraes Contact Info) Description 11/22/2025 3:20 PM EDT Office Visit [address] [address] Xiomara Au MD 703 [facility] 2, [address] [place] [address] documented as of this encounter Procedures Procedure Name Priority Date/Time Associated Diagnosis Comments OUTSIDE IMAGING SCAN 02/09/2025 documented in this encounter Results * OUTSIDE IMAGING SCAN (02/09/2025) Anatomical Region Laterality Modality Other Narrative 02/09/2025 Ordered by an unspecified provider. us Generic Provider Scanning OUTSIDE SCAN Final Result documented in this encounter Visit Diagnoses Not on filedocumented in this encounter Additional Health Concerns Assessment Noted Time A fall risk assessment has been complete d for the patient 01/26/2025 10:19 AM EDT documented as of this encounter Care Teams Tobacco Packing Machine Operator Relationship Specialty Start Date End Date Danis Huang DO [address] [place] [address] PCP - General Internal Medicine 11/29/24 documented as of this encounter
--- OUTSIDE RECORDS SUMMARY | 2025-05-15 12:54 | XMS_ITS | Encounter Summary ---
Author Organization [facility] Address [address] [place] [address] Phone Care Team Providers Care Mica Plate Layer Name Role Phone Danis Huang DO Primary Care Provider Danis Huang DO Primary Care Provider [phone] Xochitl Knox RN Unavailable Unavailable Encounter Details Date Type Department Care Team (Late st Contact Info) Description 11/18/2023 Scanned Document [facility] [address] [place] [address] Scanning, Generic Provider Social History [...] Description 11/22/2025 3:20 PM EDT Office Visit [facility] [address] [address] [facility]ara Au MD [facility], [address] [place] [address] documented as of this encounter Procedures Procedure [...] documented as of this encounter Care Teams Mica Plate Layer Relationship Specialty Start Date End Date Danis Huang DO PCP - General Internal Medicine 11/10/23 11/28/24 [facility]is [facility] [place] [address] PCP - General Internal Medicine 11/29/24 Xochitl Knox, fruit workerClassifying Machine Operator 12/05/24 01/11/25 documented as of this encounter
--- OUTSIDE RECORDS SUMMARY | 2025-05-15 12:54 | XMS_ITS | Encounter Summary ---
Author Organization [facility] Address [address] [facility] [place] [address] Care Team Providers Care Rn Clinical Appeals Name Role Phone SalDanis She BRUSH Primary Care Provider Nikolai Muñoz Unavailable [phone] Encounter Details Date Type Department Care Team (Late st Contact Info) Description 07/07/2023 Abstract [facility] [address] [place] [address] Paula Jarrett NP Social History Tobacco Use [...] BURKETT [address] [place] [address] Dennis Miguel DO [address] [place] [address] 05/31/2025 9:30 AM EDT Office Visit [facility] [address] [place] [address] Nikolai Muñoz PA [address] [place] [address] 06/07/2025 11:00 AM EST Clinical Support [facility] [address] [place] [address] Lisa Zamorano, [facility] [address] [place] [address] 08/21/2025 2:15 PM EST Procedure Visit [facility] [address] [place] [address] Germán Weir, DPM [address] [place], [place] [address] documented as of this encounter Visit Diagnoses Not on filedocumented in this encounter Care Teams Rn Clinical Appeals Relationship Specialty Start Date End Date Danis Huang DO [address] [place] [address] PCP - General Internal Medicine 12/15/22 Nikolai Muñoz PA [address] [place] [address] PCP - Medical [facility] 08/03/2408/02 documented as of this encounter
--- OUTSIDE RECORDS SUMMARY | 2025-05-15 12:54 | XMS_ITS | Clinical Summary ---
Author Organization [facility] Address [address] [facility] [place] [address] Care Team Providers Care [id number] Tank Crewman Name Role Phone Sal Danis Nowak DO Primary Care Provider [phone] Nikolai Muñoz Unavailable [phone] Allergies No known active allergies Medications [...] (10/07/2023): Added automatically from request for surgery [id number] Primary osteoarthritis of right hip 07/19/2020 Overview (05/21/2023): Added automatically from request for surgery [id number] Ischial bursitis 07/07/2019 Overview (10/07/2023): Added automatically from request for surgery [id number] Osteopenia 06/06/2016 Vitamin D deficiency 05/05/2016 Sciatica 05/05/2016 Sacroiliac joint pain 01/17/2010 Hip pain 12/18/2009 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 01/16/2009 Encounters Date Type Department Care Team Description 05/08/2025 1:00 PM EDT Procedure Visit [facility] [address] [place] [address] Germán Weir DPM Dermatophytosis of nail (Primary Dx); Dystrophic nail; Pain around toenail, right foot; Pain around toenail, left foot 05/08/2025 Bamboo flowsheet [facility] [address] [place] [address] Germán Weir DPM 05/08/2025 Travel 05/04/2025 Travel 02/28/2025 Telephone NOMKristi BURKETT [address] [place] [address] Antoinette Link LPN from Last 3 Months Immunizations Immunization Administration [...] Mass Index 23.8 05/08/2025 1:04 PM EDT Plan of Treatment Upcoming Encounters Date Type Department Care Team (Late st Contact Info) Description 05/29/2025 1:30 PM EDT Office Visit YASMIN BURKETT [address] [facility] [address] [place] [address] Dennis Miguel DO [address] [facility] [address] [place] [address] 05/31/2025 9:30 AM EDT Office Visit [facility] [address] [place] [address] Nikolai Muñoz PA [address] [place] [address] 06/07/2025 11:00 AM EST Clinical Support [facility] [address] [facility] [address] [place] [address] Lisa Zamorano, [facility] [address] [place], [place] [address] 08/21/2025 2:15 PM EST Procedure Visit [facility] [address] [place] [address] Germán Weir, DPM [address] [place], [place] [address] Health Maintenance Due Date Last Done Comments Medicare Annual Wellness (AWV) 1940 Pneumococcal Vaccine: 65+ Years Completed 05/06/2016, 08/03/2010, 08/03/2004 Influenza Vaccine Completed 04/20/2025, , 05/06/2023, Additional history exists Insurance [employer] Care Teams M1A1 Tank Crewman Relationship Specialty Start Date End Date Danis Huang DO [address] [place] [address] PCP - General Internal Medicine 12/15/22 Nikolai Muñoz PA [address] [place] [address] PCP - Medical [facility] 08/03/2408/02
--- OUTSIDE RECORDS SUMMARY | 2025-05-15 12:54 | XMS_ITS | Encounter Summary ---
Author Organization [facility] Address [address] [place] [address] Phone Care Team Providers Care Janitorial Tech Name Role Phone Danis Huang DO Primary Care Provider [phone] Danis Huang DO Primary Care Provider [phone] Danis Huang DO Primary Care Provider [phone] Xochitl Knox RN Unavailable Unavailable Encounter Details Date Type Department Care Team (Late st Contact Info) Description 12/03/2022 Orders Only [facility] [address] [place] [address] Conversion, Onbase Social History Tobacco Use Types [...] Description 11/22/2025 3:20 PM EDT Office Visit [facility] [address] [facility] [address] [place] [address] Xiomara Au MD [address] [facility] [address], [address] [place] [address] Scheduled Orders Name Type Priority Associated Diagnoses Orde r Schedule OUTSIDE LAB SCAN Lab Ordered: 12/03/2022 documented as of this encounter Visit Diagnoses Not on filedocumented in this encounter Care Teams Janitorial Tech Relationship Specialty Start Date End Date Danis Huang DO PCP - General 04/16/21 11/09/23 Danis Huang DO PCP - General Internal Medicine 11/10/23 11/28/24 [place] [address] [place], [place] [address] [address] PCP - General Internal Medicine 11/29/24 Xochitl Knox, lumber straightenedDirector [employer] 12/05/24 01/11/25 documented as of this encounter
--- OUTSIDE RECORDS SUMMARY | 2025-05-15 12:54 | XMS_ITS | Encounter Summary ---
Author Organization [facility] Address [address] [place] [address] Phone Care Team Providers Care Machine Milker Name Role Phone Danis Huang DO Primary Care Provider [phone] Danis Huang DO Primary Care Provider [phone] Danis Huang DO Primary Care Provider [phone] Xochitl Knox RN Unavailable Unavailable Encounter Details Date Type Department Care Team (Late st Contact Info) Description 03/25/2023 Scanned Document [facility] LE[facility] [address] [place] [address] Conversion, Onbase Social History Tobacco Use Types [...] Description 11/22/2025 3:20 PM EDT Office Visit [facility] [address] [facility] [address] [place] [address] Xiomara Au MD [address] [employer] [address] [place] [address] documented as of this encounter Visit Diagnoses Not on filedocumented in this encounter Care Teams Machine Milker Relationship Specialty Start Date End Date Danis Huagn DO PCP - General 04/16/21 11/09/23 Danis Huang DO PCP - General Internal Medicine 11/10/23 11/28/24 Danis Huang, [address] [place] [address] PCP - General Internal Medicine 11/29/24 Xochitl Knox, cloth spongerSenior C Developer 12/05/24 01/11/25 documented as of this encounter
--- OUTSIDE RECORDS SUMMARY | 2025-05-15 12:54 | XMS_ITS | Encounter Summary ---
Author Organization [facility] tem Address [id number] [address] [place] [address] Care Team Providers Care Aerophysicist Name Role Phone Danis Huang DO Primary Care Provider [phone] Encounter Details Date Type Department Care Team (Late st Contact Info) Description 03/07/2021 Orders Only [facility] [address] [place] [address] Nikolai Muñoz, SHANNAN [address] [place] [address] Social History Tobacco Use Types Packs/Day Years [...] on filedocumented in this encounter Care Teams Aerophysicist Relationship Specialty Start Date End Date Danis Huang DO [address] [place] [address] PCP - General Internal Medicine 05/10/21 documented as of this encounter
--- OUTSIDE RECORDS SUMMARY | 2025-05-15 12:54 | XMS_ITS | Encounter Summary ---
Author Organization [facility] Address [address] [place] [address] Phone Care Team Providers Care Christmas Tree Farmer Name Role Phone Danis Huang DO Primary Care Provider [phone] Danis Huang DO Primary Care Provider [phone] Xochitl Knox RN Unavailable Unavailable Encounter Details Date Type Department Care Team (Late st Contact Info) Description 11/26/2024 Scanned Document [facility] [address] [place] [address] Scanning, Generic Provider Social History Tobacco Use Types Packs/Day Years Used Date Smoking Tobacco: Never Smokeless Tobacco: Never Alcohol Use Standard Drinks/Week Comments Yes 0 (1 standard drink = 0.6 oz pur e alcohol) social [facility] Utilities Answer Date Recorded In the past 12 months has [facility] [employer], [employer], oil, or water [employer] threatened to shut off services in your [...] any time in the past 12 m [facility], were you homeless or living in a fdc (including now)? No 11/29/2024 Comments Unknown Sex [...] as of this encounter Functional Status * BP Answer Date of Assessment Author 142/75 11/29/2024 11:08 PM EDT [facility], [employer] In * Pulse Answer Date of Assessment Author 73 11/29/2024 11:08 PM EDT [employer] [facility], [employer] In * Stephens Fall Risk Question Answer Date of Assessment Author History of Falling, Immediat e or Within 3 Months 0 11/29/2024 11:02 PM EDT Jen Humphrey RN Secondary Diagnosis 15 11/29/2024 11:02 PM E Sho Alonzo RN Ambulatory Aid 15 11/29/2024 11:02 PM EDT Sho Marc RN Intravenous Therapy/Heparin Lock 20 11/30/19 11:02 PM EDT Sho Humphrey RN Gait/Transferring 0 11/29/2024 11:02 PM EDT Sho Humphrey RN Mental Status 0 11/29/2024 11:02 PM EDT Sho Rubin RN Stephens Fall Risk Score 50 11/29/2024 11:02 PM EDT Sho Humphrey RN * Ezequiel Scale Question Answer Date of Assessment Author Sensory Perceptions 4 11/29/2024 11:00 AM E Deedee Figueroa RN Moisture 4 11/29/2024 11:00 AM EDT Deedee Cavanaugh RN Activity 3 11/29/2024 11:00 AM EDT Deedee Cavanaugh RN Mobility 3 11/29/2024 11:00 AM EDT Deedee Cavanaugh RN Nutrition 3 11/29/2024 11:00 AM EDT Deedee Cavanaugh RN Friction and Shear 3 11/29/2024 11:00 AM ED Deedee Bowen RN Ezequiel Scale Score 20 11/29/2024 11:00 AM ED Deedee Bowen RN * Nutrition Screen Question Answer Date of Assessment Author Stage 3 or 4 Pressure Injury or Multiple Non-Healing Wounds No 11/29/2024 11:05 PM Sho Agee RN Home Tube Feeding or Total Parenteral Nutrition (TPN) No 11/29/2024 11:05 PM Sho Alberts RN Dietitian Consult Needed No 11/29/2024 11:05 PM Sho Kim RN * Trauma/Abuse Assessment Question Answer Date of Assessment Author Physical Abuse Denies 11/29/2024 11:01 PM EDSho Cristina RN Verbal Abuse Denies 11/29/2024 11:01 PM EDT Sho Thompson RN * Values/Beliefs Question Answer Date of Assessment Author Cultural Requests During Hospitalization n/a 11/29/2024 11:01 PM Jen Kim RN Spiritual Requests During Hospitalization n/a 11/29/2024 11:01 PM Jen Kim RN * Communicable Disease Screening Question Answer Date of Assessment Author Do you have any of the following new or worsening symptoms? None of these 11/29/2024 11:05 PM Jen Kim RN * BMI Answer Date of Assessment Author 1 11/29/2024 2:56 PM EDT Lamar Henriquez, TELESALES PROFESSIONAL-[employer]OBBY [employer]OMS PEGGER * DVT Score (IF A SCORE IS NOT CALCULATING, MUST SELECT A BMI TO COMPLETE) Answer Date of Assessment Author 4 11/29/2024 2:56 PM EDT Lamar Henriquez, TELESALES PROFESSIONAL-[employer]OBBY [employer]OMS PEGGER * Room Service Question Answer Date of Assessment Author Room Service Participation May Participate in Room Service 11/29/2024 11:05 PM Sho Kim RN * AUDIT-C Score Answer Date of Assessment Author 0 11/29/2024 11:01 PM Sho Agee RN * Skip to questions 9-10? Answer Date of Assessment Author 1 11/29/2024 11:01 PM Sho Agee RN * General Info Subtotal (IF THIS SECTION IS BLANK, MUST CHOOSE A BMI TO COMPLETE) Answer Date of Assessment Author 4 11/29/2024 2:56 PM EDT Lamar Henriquez APRN-DOBBY LOOMS PEGGER * Audit Alcohol Screening Question Answer Date of Assessment Author Q1: [...] Never 11/29/2024 11:01 PM Jen Kim RN Audit-C Score 0 11/29/2024 11:01 PM EDT Sho Rubin RN * Malnutrition Screening Tool (MST) Question Answer Date of Assessment Author Have you recently lost weigh t without trying? 0 11/29/2024 11:05 PM Jen Kim RN Weight Loss Score 0 11/29/2024 11:05 PM Sho Kim RN Have you been eating poorly because of a decreased appetite? 0 11/29/2024 11:05 PM ANILT Sho Rubin RN Malnutrition Score 0 11/29/2024 11:05 PM ED T Sho Humphrey RN * Over the past 2 weeks, how often have you been bothered by any of the following problems? Question Answer Date of Assessment Author Little interest or pleasure in doing things Not at all 11/29/2024 11:01 PM Jen Kim RN Feeling down, depressed, or hopeless Not at all 11/29/2024 11:01 PM Jen Kim RN Have you had thoughts of harming anyone else? No 11/29/2024 11:01 PM Efren Kim RN * Abuse Screen Question Answer Date of Assessment Author Have you had any thoughts of harming anyone else? No 11/29/2024 11:01 PM Efren Kim RN Are there any apparent signs of injuries/behaviors that could be related to abuse/neglect? No 11/29/2024 11:01 PM Sho Kim RN Are you or have you been threatened or abused physically, emotionally, or sexually by anyone? No 11/29/2024 11:01 PM EDT Jen Humphrey RN Has anyone ever threatened t o hurt your family or your pets? No 11/29/2024 11:01 PM EDT Sho Dow RN Does anyone try to keep you from having/contacting other friends or doing things outside your home? No 11/29/2024 11:01 PM ANILT Jen Humphrey RN Do you feel UNSAFE going nikko k to the place where you are living? No 11/29/2024 11:01 PM EDT Sho Thompson RN Do you feel anyone has explo ited or taken advantage of you financially or of your personal property? No 11/29/2024 11:01 PM ANILT Jen Humphrey RN Abuse Screen Adult 11/29/2024 11:01 PM EDT Sho Thompson RN * DVT Assessments Question Answer Date of Assessment Author BMI (BMI MUST BE CHOSEN) 30 or less 11/29/2024 2:56 PM EDT Valorie Henriquez, TELESALES PROFESSIONAL-DOBBY [employer] PEGGER * ADL Screening Question Answer Date of Assessment Author Patient's Vision Adequate to Safely Complete Daily Activities Yes 11/29/2024 11:00 PM ANILT Jen Humphrey RN Patient's Judgment Adequate to Safely Complete Daily Activities Yes 11/29/2024 11:00 PM ANILT Jen Humphrey RN Patient's Memory Adequate to Safely Complete Daily Activities Yes 11/29/2024 11:00 PM Jen Kim RN Patient Able to Express Needs/Desires Yes 11/29/2024 11:00 PM Jen Kim RN Dressing Independent 11/29/2024 11:00 PM EDT Sho Thompson RN Grooming Independent 11/29/2024 11:00 PM ANILT Sho Thompson RN Feeding Independent 11/29/2024 11:00 PM ANILT Sho Thompson RN Bathing Independent 11/29/2024 11:00 PM ANILT Sho Thompson RN Toileting Independent 11/29/2024 11:00 PM ANILT Bobby gretto, Sho, RN In/Out Bed Independent 11/29/2024 11:00 PM Sho Peng RN Walks in Home Independent 11/29/2024 11:00 PM EDT Sho Rubin RN Weakness of Legs Both 11/29/2024 11:00 PM Sho Kim RN Weakness of Arms/Hands None 11/29/2024 11:00 P M Sho Kim RN Hearing - Right Ear Functional 11/29/2024 11:00 PM E DT Sho Humphrey RN Hearing - Left Ear Functional 11/29/2024 11:00 PM ED T Sho Humphrey RN Which is your dominant hand? Right 11/29/2024 11:00 PM Jen Kim RN * Therapy Consults Question Answer Date of Assessment Author PT Evaluation Needed 2 11/29/2024 11:00 PM Sho Kim RN OT Evaluation Needed 2 11/29/2024 11:00 PM Sho Kim RN ELIGIBILITY CLERK Evaluation Needed 2 11/29/2024 11:00 PM Sho Kim RN * Assistive Devices Question Answer Date of Assessment Author Assistive Devices Cane 11/29/2024 11:00 PM Sho Kim RN * Over the past 2 weeks, how often have you been bothered by any of the following problems? Question Answer Date of Assessment Author Patient Health Questionnaire -2 Score 0 11/29/2024 11:01 PM Jen Kim RN * Calculated C-SSRS Risk Score (Lifetime/Recent) Answer Date of Assessment Author No Risk Indicated 11/29/2024 11:01 PM Sho Wayne RN * Crawford Suicide Severity Rating Scale (Screener/Recent Self-Report) Question Answer Date of Assessment Author 1. Wish to be (Past 1 Month) No 11/29/2024 11:01 PM Jen Kim RN 2. Non-Specific Active Suici ilana Thoughts (Past 1 Month) No 11/29/2024 11:01 PM Sho Kim RN 6. Suicidal Behavior (Lifetime) No 11:01 PM Sho Kim RN * AM-PAC Basic Mobility Question Answer Date of Assessment Author Turning from your back to yo ur side while in a flat bed without using bedrails 4 11/29/2024 11:01 PM Jen Kim RN Moving from lying on your ba ck to sitting on the side of a flat bed without using bedrails 4 11/29/2024 11:01 PM Sho Alberts RN Moving to and from bed to ch air (including a wheelchair) 4 11/29/2024 11:01 PM Sho Kim RN Standing up from a chair usi ng your arms (e.g. wheelchair or bedside chair) 4 11/29/2024 11:01 PM Jen Kim RN To walk in hospital room 4 11/29/2024 11:01 PM Sho Kim RN Climbing 3-5 steps with railing 4 11:01 PM Sho Kim RN Basic Mobility - Total Score 24 11/29/2024 1 1:01 PM Sho Kim RN * AM-[facility] Daily Activity Question Answer Date of Assessment Author Putting on and taking off regular lower body clothing 4 11/29/2024 11:01 PM Sho Agee RN Bathing (including washing, rinsing, drying) 4 11/29/2024 11:01 PM Jen Kim RN Putting on and taking off regular upper body clothing 4 11/29/2024 11:01 PM Sho Agee RN Toileting, which includes [facility] toilet, bedpan or urinal 4 11/29/2024 11:01 PM Sho Kim RN Taking care of personal [place] such as brushing teeth 4 11/29/2024 11:01 PM Melecio Kim RN Eating Meals 4 11/29/2024 11:01 PM Sho Peng RN Daily Activity - Total Score 24 11/29/2024 1 1:01 PM EDT Sho Humphrey RN * Baseline Question Answer Date of Assessment Author Patient Baseline Bedbound No 11/29/2024 11:0 1 PM EDT Sho Humphrey RN * Question Answer Date of Assessment Author Little interest or pleasure in doing things Not at all 11/29/2024 11:01 PM EDT Jen Humphrey RN Feeling down, depressed, or hopeless Not at all 11/29/2024 11:01 PM EDT Jen Humphrey RN documented as of this encounter Plan of Treatment Upcoming Encounters Date Type Department Care Team (Late st Contact Info) Description 11/22/2025 3:20 PM EDT Office Visit [facility] [address] [facility] [address] [place] [id number] Xiomara Au MD [address] [facility] [address] [place] [address] documented as of this encounter Visit Diagnoses Not on filedocumented in this encounter Additional Health Concerns Assessment Noted Time A fall risk assessment has been complete d for the patient 10/26/2024 3:12 PM EDT documented as of this encounter Care Teams Christmas Tree Farmer Relationship Specialty Start Date End Date Danis Huang DO PCP - General Internal Medicine 11/10/23 11/28/24 Danis [facility] DO [facility] [place] [address] PCP - General Internal Medicine 11/29/24 Xochitl Knox, routing equipment tenderCashier Payments Received 12/05/24 01/11/25 documented as of this encounter
--- OUTSIDE RECORDS SUMMARY | 2025-05-15 12:54 | XMS_ITS | Encounter Summary ---
Author Organization [facility] Address [address] [place] [address] Phone Care Team Providers Care Director Hr Communications Name Role Phone SalDanis She BRUSH Primary Care Provider [phone] Xochitl Knox RN Unavailable Unavailable Encounter Details Date Type Department Care Team (Late st Contact Info) Description 11/29/2024 Scanned Document [facility] [address] [place] [id number] Scanning, Generic Provider Social History Tobacco Use Types Packs/Day Years Used Date Smoking Tobacco: Never Smokeless Tobacco: Never Alcohol Use Standard Drinks/Week Comments Yes 0 (1 standard drink = 0.6 oz pur e alcohol) social [facility] Utilities Answer Date Recorded In the past [address] [facility] [employer], gas, oil, or water [employer] threatened to shut off services in your [...] any time in the past 12 m [facility], were you homeless or living [...] as of this encounter Functional Status * Question Answer Date of Assessment Author BP 107/53 12/02/2024 11:14 PM EDT Kelley Coppola Pulse 60 12/02/2024 11:14 PM EDT Kelley Coppola * Stephens Fall Risk Question Answer Date of Assessment Author History of Falling, Immediat e or Within 3 Months 0 12/02/2024 8:00 PM EDT Dean Limon RN Secondary Diagnosis 15 12/02/2024 8:00 PM ED T Magdalene Limon, employment office clerk Aid 15 12/02/2024 8:00 PM EDT Magdalene Holland, NICOLE Intravenous Therapy/Heparin Lock 20 12/01/2024 7:59 PM EDT Dean Limon RN Gait/Transferring 0 12/01/2024 7:59 PM EDT Magdalene Limon, NICOLE Mental Status 0 12/01/2024 7:59 PM EDT Magdalene Wilkins RN Morse Fall Risk Score 35 12/01/2024 7:59 PM EDT Magdalene Limon RN * Ezequiel Scale Question Answer Date of Assessment Author Sensory Perceptions 4 12/02/2024 9:00 AM ED T Deedee Chand RN Moisture 4 12/02/2024 9:00 AM EDT Deedee Sullivan RN Activity 3 12/02/2024 9:00 AM EDT Deedee Sullivan RN Mobility 4 12/02/2024 9:00 AM EDT Deedee Sullivan RN Nutrition 3 12/02/2024 9:00 AM EDT Deedee Sullivan RN Friction and Shear 3 12/02/2024 9:00 AM EDT Deedee Chand RN Ezequiel Scale Score 21 12/02/2024 9:00 AM EDT Deedee Chand RN * Nutrition Screen Question Answer Date of Assessment Author Stage 3 or 4 Pressure Injury or Multiple Non-Healing Wounds No 11/29/2024 11:05 PM EDT Sho Hess RN Home Tube Feeding or Total Parenteral Nutrition (TPN) No 11/29/2024 11:05 PM Sho Alberts RN Dietitian Consult Needed No 11/29/2024 11:05 PM Sho Kim RN * Trauma/Abuse Assessment Question Answer Date of Assessment Author Physical Abuse Denies 11/29/2024 11:01 PM Sho Gonzalez RN Verbal Abuse Denies 11/29/2024 11:01 PM Sho Peng RN * Values/Beliefs Question Answer Date of Assessment Author Cultural Requests During Hospitalization n/a 11/29/2024 11:01 PM Jen Kim RN Spiritual Requests During Hospitalization n/a 11/29/2024 11:01 PM Jen Kim RN * Question Answer Date of Assessment Author Heels/Feet Foot of bed elevated 12/02/2024 4:15 AM Jenna Javier * Communicable Disease Screening Question Answer Date of Assessment Author Do you have any of the following new or worsening symptoms? None of these 11/29/2024 11:05 PM Jen Kim RN * BMI Answer Date of Assessment Author 1 12/02/2024 1:28 PM Leeann Ramirez, ZAID-ALICJA * DVT Score (IF A SCORE IS NOT CALCULATING, MUST SELECT A BMI TO COMPLETE) Answer Date of Assessment Author 4 12/02/2024 1:28 PM Leeann Ramirez, ABDULLAHI * Room Service Question Answer Date of [...] COMPLETE) Answer Date of Assessment Author 4 12/02/2024 1:28 PM Leeann Ramirez APRN-CNP * Audit Alcohol Screening Question Answer Date of Assessment Author Q1: How often do you have a drink containing alcohol? Never 11/29/2024 11:01 PM EDT Jen Humphrey RN Q2: How many drinks containing alcohol do you have on a typical day when you are drinking? Patient does not drink 11/29/2024 11:01 PM ANILT Sho Humphrey RN Q3: How often do you have six or more drinks on one occasion? Never 11/29/2024 11:01 PM EDT Jen Humphrey RN Audit-C Score 0 11/29/2024 11:01 PM EDT Sho Rubin RN * Medical Gas Delivery Method Answer Date of Assessment Author Nasal cannula 12/02/2024 12:39 PM EDT Dennis Hamilton * Malnutrition Screening Tool (MST) Question Answer Date of Assessment Author Have you recently lost weigh t without trying? 0 11/29/2024 11:05 PM EDT Jen Humphrey RN Weight Loss Score 0 11/29/2024 11:05 PM EDT Sho Humphrey RN Have you been eating poorly because of a decreased appetite? 0 11/29/2024 11:05 PM EDT Sho Rubin RN Malnutrition Score 0 11/29/2024 [...] hopeless Not at all 11/29/2024 11:01 PM ANILT Jen Humphrey RN Have you had thoughts of harming anyone else? No 11/29/2024 11:01 PM EDT Efren Humphrey RN * Abuse Screen Question Answer Date of Assessment Author Have you had any thoughts of harming anyone else? No 11/29/2024 11:01 PM ANILT Efren Humphrey RN Are there any apparent signs of injuries/behaviors that could be related to abuse/neglect? No 11/29/2024 11:01 PM EDT Sho Humphrey RN Are you or have you been threatened or abused physically, emotionally, or sexually by anyone? No 11/29/2024 11:01 PM Jen Kim RN Has anyone ever threatened t o hurt your family or your pets? No 11/29/2024 11:01 PM ANILT Sho Dow RN Does anyone try to keep you from having/contacting other friends or doing things outside your home? No 11/29/2024 11:01 PM ANILT Jen Humphrey RN Do you feel UNSAFE going nikko k to the place where you are living? No 11/29/2024 11:01 PM ANILT Sho Thompson RN Do you feel anyone has explo ited or taken advantage of you financially or of your personal property? No 11/29/2024 11:01 PM Jen Kim RN Abuse Screen Adult 11/29/2024 11:01 PM EDT Sho Thompson RN * DVT Assessments Question Answer Date of Assessment Author BMI (BMI MUST BE CHOSEN) 30 or less 12/02/2024 1:28 PM EDT Leeann Tejada, AEROSPACE MEDICINE PHYSICIAN-FEED RESEARCH TECHNICIAN * ADL Screening Question Answer Date of Assessment Author Patient's Vision Adequate to Safely Complete Daily Activities Yes 11/29/2024 11:00 PM Jen Kim RN Patient's Judgment Adequate to Safely Complete Daily Activities Yes 11/29/2024 11:00 PM Jen Kim RN Patient's Memory Adequate to Safely Complete Daily Activities Yes 11/29/2024 11:00 PM Jen Kim RN Patient Able to Express Needs/Desires Yes 11/29/2024 11:00 PM Jen Kim RN Dressing Independent 11/29/2024 11:00 PM Sho Peng RN Grooming Independent 11/29/2024 11:00 PM Sho Peng RN Feeding Independent 11/29/2024 11:00 PM ANILT Sho Thompson RN Bathing Independent 11/29/2024 11:00 PM ANILT Sho Thompson RN Toileting Independent 11/29/2024 11:00 PM ANILT Sho Thompson RN In/Out Bed Independent 11/29/2024 11:00 PM ANILT Sho Thompson RN Walks in Home Independent 11/29/2024 11:00 PM EDT Sho Rubin RN Weakness of Legs Both 11/29/2024 11:00 PM ANILT Sho Humphrey RN Weakness of Arms/Hands None 11/29/2024 11:00 P M Sho Kim RN Hearing - Right Ear Functional 11/29/2024 11:00 PM E Sho Alonzo RN Hearing - Left Ear Functional 11/29/2024 11:00 PM ED T Sho Humphrey RN Which is your dominant hand? Right 11/29/2024 11:00 PM Jen Kim RN * Therapy Consults Question Answer Date of Assessment Author PT Evaluation Needed 2 11/29/2024 11:00 PM Sho Kim RN OT Evaluation Needed 2 11/29/2024 11:00 PM Sho Kim RN DRUG PURCHASER Evaluation Needed 2 11/29/2024 11:00 PM Sho [...] 11/29/2024 11:01 PM Sho Wayne RN * [place] Suicide Severity Rating Scale (Screener/Recent Self-Report) Question [...] Assessment Author Turning from your back to your side while in a flat bed without using bedrails 4 11/30/2024 8:00 PM Sara Escudero RN Moving from lying on your back to sitting on the side of a flat bed without using bedrails 4 11/30/2024 8:00 PM Dean Escudero RN Moving to and from bed to chair (including a wheelchair) 4 11/30/2024 8:00 PM Dena Escudero RN Standing up from a chair using your arms (e.g. wheelchair or bedside chair) 4 11/30/2024 8:00 PM Magdalene Escudero RN To walk in hospital room 4 11/30/2024 8:00 PM Magdalene Escudero RN Climbing 3-5 steps with railing 4 11/30/2024 8:00 PM Dean Escudero RN Basic Mobility - Total Score 24 11/30/2024 8 :00 PM Magdalene Escudero RN * AM-PAC Daily Activity Question Answer Date of Assessment Author Putting on and taking off regular lower body clothing 4 11/30/2024 8:00 PM Magdalene Escudero RN Bathing (including washing, rinsing, drying) 4 11/30/2024 8:00 PM Dean Escudero RN Putting on and taking off regular upper body clothing 4 11/30/2024 8:00 PM Magdalene Escudero RN Toileting, which includes using toilet, bedpan or urinal 4 11/30/2024 8:00 PM Dean Escudero RN Taking care of personal grooming such as brushing teeth 4 11/30/2024 8:00 PM EDT Dean Limon RN Eating Meals 4 11/30/2024 8:00 PM EDT Magdalene Martinez ams, RN Daily Activity - Total Score 24 11/30/2024 8 :00 PM EDT Magdalene Limon RN * Baseline Question Answer Date of [...] Humphrey RN documented as of this encounter Mental Status * Confusion Assessment Method-ICU (CAM-ICU) Question Answer Entry Date Author Feature 1: Acute Onset or Fluctuating Course Negative 11/30/2024 8:00 PM EDT Dean Limon RN Feature 3: Altered Level of Consciousness Negative 12/02/2024 8:00 PM EDT Dean Limon RN * Overall CAM-ICU Answer Entry Date Author Negative 11/30/2024 8:00 PM EDT Magdalene Limon RN documented in this encounter Plan of Treatment Upcoming Encounters Date Type Department Care Team (Late st Contact Info) Description 11/22/2025 3:20 PM EDT Office Visit [place] [id number] [address] Xiomara Au MD [address] [place] [address] [address] [place] [address] documented as of this encounter Visit Diagnoses Not on filedocumented in this encounter Additional Health Concerns Assessment Noted Time A fall risk assessment has been complete d for the patient 10/26/2024 3:12 PM EDT documented as of this encounter Care Teams Director Hr Communications Relationship Specialty Start Date End Date Danis Huang [place] [address] PCP - General Internal Medicine 11/29/24 Xochitl Knox, vacation guideAngle Shear Set Up Operator 12/05/24 01/11/25 documented as of this encounter
--- OUTSIDE RECORDS SUMMARY | 2025-05-15 12:54 | XMS_ITS | Encounter Summary ---
Author Organization [facility] Address [address] [place] [address] Phone Care Team Providers Care Stamping Die Maker Bench Name Role Phone Danis Huang DO Primary Care Provider [phone] Danis Huang DO Primary Care Provider [phone] Danis Huang DO Primary Care Provider [phone] Xochitl Knox RN Unavailable Unavailable Encounter Details Date Type Department Care Team (Late st Contact Info) Description 01/16/2023 Orders Only [facility] [address] [place] [address] Conversion, Onbase Social History Tobacco Use Types [...] Description 11/22/2025 3:20 PM EDT Office Visit [facility] [address] [facility] [address] [place] [address] Xiomara Au MD 7[address] [facility] 2, [address] [place] [address] Scheduled Orders Name Type Priority Associated Diagnoses Orde r Schedule OUTSIDE LAB SCAN Lab Ordered: 01/16/2023 documented as of this encounter Visit Diagnoses Not on filedocumented in this encounter Care Teams Stamping Die Maker Bench Relationship Specialty Start Date End Date Danis Huang DO PCP - General 04/16/21 11/09/23 Danis Huang DO PCP - General Internal Medicine 11/10/23 11/28/24 [place] [address] [place], [place] [address] [place] [address] PCP - General Internal Medicine 11/29/24 Xochitl Knox, sales service supervisorCabin Supervisor 12/05/24 01/11/25 documented as of this encounter
--- OUTSIDE RECORDS SUMMARY | 2025-05-15 12:54 | XMS_ITS | Clinical Summary ---
Author Organization [facility] Address [address] [place] [address] Phone Care Team Providers Care Partition Assembler Name Role Phone Danis Huang Primary Care Provider [phone] Allergies No known active allergies Medications aspirin [...] the vagina once daily as needed. 09/28/19 Active pantoprazole (ProtoNix) 40 mg EC tablet Take 1 tablet (40 mg) by mouth once daily in the morning. Take before meals. 10/29/19 Active ranolazine (Ranexa) 500 mg 12 hr tabletIndications: Angina pectoris, unspecified Take 1 tablet (500 mg) by mouth 2 times a day. Do not crush, chew, or split. 60 tablet 2 12/04/19 Active carvedilol (Coreg) 3.125 mg tabletIndications: Essential hypertension Take 1 tablet (3.125 mg) by mouth 2 times daily (morning and late afternoon). 180 tablet 3 01/27/20 25 026 Active Active Problems Problem Noted Date Diagnosed Date Orthostatic hypotension 01/26/2025 NSTEMI (non-ST elevated myocardial infarction) ( Multi) 11/29/2024 Mild aortic stenosis 05/30/2024 Assessment & Plan (04/12/2025 1:53 PM EDT): November 2024 TTE Mild aortic stenosis BMI 24.0-24.9, adult 05/30/2024 Preop cardiovascular exam [...] coronary artery disease 05/19/2023 Assessment & Plan (04/12/2025 1:59 PM EDT): [place] [facility] 2024 [place] [facility] with Dr. Lee Mcknight/Eloina PCI/Ananda 2.5 x 15mm pMarg patent stent RCA mild November 18, 2023 cardiac cath following abnormal outpatient perfusion study Ostial/proximal LAD PCI/Ananda 2.5 x 15 mm due to ISR Proximal circumflex with patent stent RCA 25% She then had diffuse disease of small vessels including OM and PDA. LVEF 40% Assessment & Plan (11/30/2023 12:16 PM EDT): November 18, 2023 cardiac cath following abnormal outpatient perfusion study Ostial/proximal LAD PCI/Clark 2.5 x 15 mm Proximal circumflex with patent stent RCA 25% She then had diffuse disease of small vessels including OM and PDA. LVEF 40% She was initiated on Nitropatch 0.2 mg/h Congestive heart failure, [place] GLASER class 2 and ACC/AHA stage C (Multi) 05/19/2023 Assessment & Plan (04/12/2025 1:59 PM EDT): IC HF borderline EF 50-55% November 2024 (January 2023 TTE EF 40-45% & December 2023 cath EF 40%) FC II GDMT Coreg Of cozaar due to hyponatremia Assessment & Plan (11/30/2023 12:17 PM EDT): IC HF borderline EF 40% November 2023 cath (January 2023 TTE EF 40-45%) FC III weakness and fatigue GDMT Coreg Micardis Essential hypertension 05/19/2023 Assessment & Plan (04/12/2025 1:52 PM EDT): optimal in office Prior dose of hydrochlorothiazide and losartan were discontinued due to hyponatremia Mixed hyperlipidemia 05/19/2023 Assessment & Plan (04/12/2025 1:53 PM EDT): High intensity statin Reports recent labs at [facility], will obtain Resolved Problems Problem Noted Date Diagnosed Date Resolved Date Normal cardiovascular exam 05/30/2024 1 Systolic murmur 05/19/2023 05/30/2024 Encounters Date Type Department Care Team Description 04/11/2025 11:30 AM EDT Office Visit [facility] [address] [facility] [address] [place] [phone] Dora Busby, DIRECTOR PRINT-CATTLE DIPPER Two-vessel coronary artery disease (Primary Dx); ASCVD (arteriosclerotic cardiovascular disease); Essential hypertension; Mixed hyperlipidemia; Mild aortic stenosis; BMI 24.0-24.9, adult; Congestive heart failure, NYHA class 2 and ACC/AHA stage C (Multi) 04/11/2025 Travel 02/13/2025 Scanned Document [facility] [address] [place] [place] [address] Scanning, Generic Provider from Last 3 Months [...] 0.6 oz pur e alcohol) social [facility] Utilities Answer Date Recorded In the past 12 months has e electric, gas, oil, or water company threatened to shut off services in your [...] any time in the past 12 m [facility], were you homeless or living in a intermediate (including now)? No 11/29/2024 Comments Unknown Sex and Gender Information Value Date Recorded Sex Assigned at Not on file Legal Sex Female 1:24 PM EST Gender Identity Not on file Sexual Orientation Not on file Last Filed Vital Signs Vital Sign Reading Time Taken Comments Blood Pressure 132/68 04/11/2025 11:53 AM EDT Pulse 72 04/11/2025 11:37 AM EDT Temperature 36.6 C (97.9 F) 12/03/2024 7:39 AM EDT Respiratory Rate 16 12/02/2024 11:14 PM EDT Oxygen Saturation 93% 12/03/2024 7:39 AM EDT Inhaled Oxygen Concentration - - Weight 64.4 kg (142 lb) 04/11/2025 11:37 AM EDT Height 162.6 cm (5' 4 ) 04/11/2025 11:37 AM EDT Body Mass Index 24.37 04/11/2025 11:37 AM EDT Plan of Treatment Upcoming Encounters Date Type Department Care Team (Late st Contact Info) Description 11/22/2025 3:20 PM EDT Office Visit [facility] [address] [address] Xiomara Au MD 703 [facility] 2, [address] [place] [address] Health Maintenance Due Date Last [...] this topic Medical Devices Implanted Type Area Bank Messenger Device Identifier Shelf Expiration Date Model / Serial / Lot Stent, Ananda [place] Ole, 2.50 X 15rx - [id number] Implanted:Qty: 1 on 12/02/2024 by Ann Howard MD at [facility] Stent N/A: Coronary [employer] 03/31/2027 [id number] / / [id number] Procedures Procedure Name Priority Date/Time Associated Diagnosis Comments BASIC METABOLIC PANEL Pending Discharge 12/03/2024 6:04 AM EDT ECHOCARDIOGRAM 11/25/2024 from Last 3 Months or Most Recently Relevant to Health Maintenance Results * Basic Metabolic Panel (12/03/2024 6:04 AM EDT) [facility] Glucose 98 74 - 99 mg/dL LAB CHEMISTRY METHOD 12/03/2024 6:36 AM EDT [facility] Sodium 136 136 - 145 mmol/L LAB CHEMISTRY METHOD 12/03/2024 6:36 AM EDT [facility] Potassium 4.1 3.5 - 5.3 mmol/L LAB CHEMISTRY METHOD 12/03/2024 6:36 AM EDT [facility] Chloride 101 98 - 107 mmol/L LAB CHEMISTRY METHOD 12/03/2024 6:36 AM T [facility] Bicarbonate 29 21 - 32 mmol/L LAB CHEMISTRY METHOD 12/03/2024 6:36 AM T [facility] Anion Gap 10 10 - 20 mmol/L LAB CHEMISTRY METHOD 12/03/2024 6:36 AM [facility] Urea Nitrogen 13 6 - 23 mg/dL LAB CHEMISTRY METHOD 12/03/2024 6:36 AM T [facility] Creatinine 0.92 0.50 - 1.05 mg/dL LAB CHEMISTRY METHOD 12/03/2024 6:36 AM [facility] eGFR 61 >60 mL/min/1.7 3m*2 LAB CHEMISTRY METHOD 12/03/2024 6:36 AM [facility] Comment: Calculations of estimated GFR are performed using the 2020 CKD-EPI Study Refit equation without the race variable for the IDMS-Traceable creatinine methods. https://jasn.asnjournals.org/content//ASN.1633931665 Calcium 9.2 8.6 - 10.3 mg/dL LAB CHEMISTRY METHOD 12/03/2024 6:36 AM [facility] Blood Venous blood specimen / Unknown Venipuncture / Unknown 12/03/2024 6:04 AM EDT 12/03/2024 6:12 AM EDT us Karl Mccormick MD LAB BLOOD ORDERABLES Final Resul t [facility] [address] [place] [address] * Echocardiogram (11/25/2024) Narrative 11/25/2024 Ordered by an unspecified provider. us Generic Provider Scanning CV ECHO PROCEDURES Fin al Result from Last 3 Months or Most Recently Relevant to Health Maintenance Insurance [employer] [place] [employer] [place] [employer] Advance Directives For more information, please contact: [phone] (Available ) Documents on File Type Date Recorded Patient Green Jobs Trainer Expl anation Healthcare Power of Atty 12/05/2024 12:00 AM * Full Code (Latest Code Status on File) Date Activated Date Inactivated Comments 11/29/2024 2:58 PM Question Answer Comments Plan of Care: Code Status Discussion Completed Decision Maker: Patient Healthcare Agents on File Name Relationship Healthcare Agent [facility] Cheyenne Garcia Daughter Health Care Agent Chay Jha Son [facility] Health C are Agent Care Teams Partition Assembler Relationship Specialty Start Date End Date Danis Huang DO [address] [place] [address] PCP - General Internal Medicine 11/29/24
--- OUTSIDE RECORDS SUMMARY | 2025-05-15 12:54 | XMS_ITS | Encounter Summary ---
Author Organization [facility] Address [address] [place] [address] Phone Care Team Providers Care Machine Feed Operator Name Role Phone Danis Huang DO Primary Care Provider [phone] Danis Huang DO Primary Care Provider [phone] Xochitl Knox RN Unavailable Unavailable Encounter Details Date Type Department Care Team (Late st Contact Info) Description 01/07/[address] [facility] [address] [place] [address] Scanning, Generic Provider Social History [...] Description 11/22/2025 3:20 PM EDT Office Visit [place] [id number] [address] Xiomara Au MD [address]03 [facility] [address], [address] [place] [address] documented as of this encounter [...] documented as of this encounter Care Teams Machine Feed Operator Relationship Specialty Start Date End Date Danis Huang DO PCP - General Internal Medicine 11/10/23 11/28/24 Danis Huang DO [address] [place] [address] PCP - General Internal Medicine 11/29/24 Xochitl Knox, material handling equipment stevedoreRecording Studio Intern 12/05/24 01/11/25 documented as of this encounter
--- OUTSIDE RECORDS SUMMARY | 2025-05-15 12:54 | XMS_ITS | Encounter Summary ---
Author Organization [facility] Address [address] [place] [address] Phone Care Team Providers Care Lamination Inspector Name Role Phone SalDanis Primary Care Provider [phone] Encounter Details Date Type Department Care Team (Late st Contact Info) Description 02/10/2025 Scanned Document [facility] [address] [place] [id number] Scanning, Generic Provider Social History Tobacco Use Types Packs/Day Years Used Date Smoking Tobacco: Never Smokeless Tobacco: Never Alcohol Use Standard Drinks/Week Comments Yes 0 (1 standard drink = 0.6 oz pur e alcohol) social [facility] Utilities Answer Date Recorded In the past 12 months has e [place], gas, oil, or water [employer] threatened to shut off services in your [...] any time in the past 12 m [facility], were you homeless or living in a longterm (including now)? No 11/29/2024 Comments Unknown Sex and Gender Information Value Date Recorded Sex Assigned at Not on file Legal Sex Female 1:24 PM EST Gender Identity Not on file Sexual Orientation Not on file documented as of this encounter Plan of Treatment Upcoming Encounters Date Type Department Care Team (Verenice moraes Contact Info) Description 11/22/2025 3:20 PM EDT Office Visit [address] [address] Xiomara Au MD 703 [facility] [address], [address] [place] [address] documented as of this encounter Visit Diagnoses Not on filedocumented in this encounter Additional Health Concerns Assessment Noted Time A fall risk assessment has been complete d for the patient 01/26/2025 10:19 AM EDT documented as of this encounter Care Teams Lamination Inspector Relationship Specialty Start Date End Date Danis Huang DO [address] [place] [address] PCP - General Internal Medicine 11/29/24 documented as of this encounter
--- OUTSIDE RECORDS SUMMARY | 2025-05-15 12:54 | XMS_ITS | Encounter Summary ---
Author Organization [facility] Address [address] [place] [address] Phone Care Team Providers Care Compensation/Benefits Specialist Name Role Phone Danis Huang DO Primary Care Provider [phone] Danis Huang DO Primary Care Provider [phone] Xochitl Knox RN Unavailable Unavailable Encounter Details Date Type Department Care Team (Late st Contact Info) Description 11/25/2024 Scanned Document [facility] [address] [place] [address] Scanning, Generic Provider Social History Tobacco Use Types Packs/Day Years Used Date Smoking Tobacco: Never Smokeless Tobacco: Never Alcohol Use Standard Drinks/Week Comments Yes 0 (1 standard drink = 0.6 oz pur e alcohol) social [facility] Utilities Answer Date Recorded In the past 12 months has [facility] [employer], [employer], oil, or water [employer] threatened to shut off services in your [...] any time in the past 12 m [facility], were you homeless or living in a mcc (including now)? No 11/29/2024 Comments Unknown Sex [...] documented as of this encounter Functional Status documented as of this encounter Plan of Treatment Upcoming Encounters Date Type Department Care Team (Late st Contact Info) Description 11/22/2025 3:20 PM EDT Office Visit [facility] [address] [facility] [address] [place] [address] Xiomara Au MD [address] [facility] [address] [place] [address] documented as of this encounter [...] documented as of this encounter Care Teams Compensation/Benefits Specialist Relationship Specialty Start Date End Date Danis Huang DO PCP - General Internal Medicine 11/10/23 11/28/24 Danis [place] [address] PCP - General Internal Medicine 11/29/24 Xochitl Knox RN Care Stacker And Sorter Operator 12/05/24 01/11/25 documented as of this encounter
--- OUTSIDE RECORDS SUMMARY | 2025-05-15 12:54 | XMS_ITS | Encounter Summary ---
Author Organization [facility] tem Address [id number] [address] [place] [address] Care Team Providers Care Dehydrogenation Operator Name Role Phone Danis Huang DO Primary Care Provider [phone] Reason for Visit * Reason Onset Date Comments Cancelled procedure, surgical clearance needed 0 02/15/2021 Encounter Details Date Type Department Care Team (Late st Contact Info) Description 02/15/2021 Documentation [facility] [address] [place] [phone] Chandni Scott RN Cancelled procedure, surgical clearance [...] on filedocumented in this encounter Care Teams Dehydrogenation Operator Relationship Specialty Start Date End Date Danis Huang DO [address] [place] [address] PCP - General Internal Medicine 05/10/21 documented as of this encounter
--- OUTSIDE RECORDS SUMMARY | 2025-05-15 12:54 | XMS_ITS | Clinical Summary ---
Author Organization [facility] Address [address] [place] [address] Care Team Providers Care Groundskeeping Maintenance Name Role Phone Geronimo Vu Primary Care Provider [phone] Allergies No known active allergies Medications darifenacin [...] 75+ series) 2014 Advance Directive Discussion 08/03/2024 Covid-19 Vaccine ( - 2024- season) 2025 Influenza Vaccine (#1) 2025 Medical Devices Implanted Type Area Manager Play Device Identifier Shelf Expiration Date Model / Serial / Lot Ins Actb 36mm 0d E X3 Trdnt - [id number] Implanted:Qty : 1 on 03/25/2011 at [facility] Joint - Hip Left: Bone - Hip [employer] 08/03/2015 [id number] / / [id number] Head Fem -5mm 36mm Hip Cocr - [id number] Implanted:Qty : 1 on 03/25/2011 at [facility] Joint - Hip Left: Bone - Hip [employer] 10/02/2015 [id number] / / [id number] Shell Actb 52mm T/H Pros - [id number] Implanted:Qty : 1 on 03/25/2011 at [facility] Joint Left: Bone - Hip [employer] 05/03/2015 [id number] / / [id number] Stem Fem Acld Tmzf 4.5 Hip - [id number] Implanted:Qty : 1 on 03/25/2011 at [facility] Joint Left: Bone - Hip [employer] 01/02/2016 [id number] / / [id number] Procedures Procedure Name Priority Date/Time Associated Diagnosis Comments BASIC METABOLIC PANEL Routine 03/26/2011 6:20 AM EDT from Last 3 Months or Most Recently Relevant to Health Maintenance Results * (ABNORMAL) BASIC METABOLIC PNL (03/26/2011 6:20 AM EDT) Glucose 122(H) 65 - 100 mg/dL [facility] BUN 18 8 - 25 mg/dL [facility] Creatinine 0.80 0.70 - 1.40 mg/dL [facility] Sodium 138 132 - 148 mmol/L [facility] Potassium 4.2 3.5 - 5.0 mmol/L [facility] Chloride 103 98 - 110 mmol/L [facility] CO2 28 23 - 32 mmol/L [facility] Calcium 8.4(L) 8.5 - 10.5 mg/dL [facility] Glom Filtration Rate (AA) >60 >60 [facility] Glom Filtration Rate (NOBLE) >60 >60 . [facility] Blood specimen (specimen) BLOOD SPECIMEN / Unknown 03/26/2011 6:20 AM EDT 03/26/2011 7:16 AM EDT [facility] Final Result [facility] [address] [address] from Last 3 Months or Most Recently Relevant to Health Maintenance Insurance MEDICARE Care Teams Groundskeeping Maintenance Relationship Specialty Start Date End Date Geronimo Vu PCP - General 02/11/10
--- OUTSIDE RECORDS SUMMARY | 2025-05-15 12:54 | XMS_ITS | Encounter Summary ---
Author Organization [facility] Address [address] [place] [address] Phone Care Team Providers Care Ocular Pathologist Name Role Phone Danis Huang DO Primary Care Provider [phone] Danis Huang DO Primary Care Provider [phone] Xochitl Knox RN Unavailable Unavailable Encounter Details Date Type Department Care Team (Late st Contact Info) Description 12/23/2023 Scanned Document [facility] [address] [place] [address] Scanning, Generic Provider Social History [...] Description 11/22/2025 3:20 PM EDT Office Visit [facility] [address] [address] [place] [address] Xiomara Au MD [address] [facility] [address], [address] [place] [address] documented as of this encounter Procedures Procedure [...] documented as of this encounter Care Teams Ocular Pathologist Relationship Specialty Start Date End Date Danis Huang DO PCP - General Internal Medicine 11/10/23 11/28/24 Danis Huang DO [address] [place] [address] PCP - General Internal Medicine 11/29/24 Xochitl Knox, partition notcherBell Attendant 12/05/24 01/11/25 documented as of this encounter
--- OUTSIDE RECORDS SUMMARY | 2025-05-15 12:54 | XMS_ITS | Encounter Summary ---
Author Organization [facility] Address [address] [place] [place] [address] Phone Care Team Providers Care Pattern Shop Supervisor Name Role Phone Danis Huang DO Primary Care Provider [phone] Danis Huang DO Primary Care Provider [phone] Danis Huang DO Primary Care Provider [phone] Xochitl Knox RN Unavailable Unavailable Encounter Details Date Type Department Care Team (Late st Contact Info) Description 03/11/2023 Scanned Document [facility] LE[facility] [address] [place] [address] Conversion, Onbase Social History Tobacco Use Types [...] Description 11/22/2025 3:20 PM EDT Office Visit [facility] [address] [facility] [address] [place] [address] Xiomara Au MD [address] [facility] [address], [address] [place] [address] documented as of this encounter Procedures Procedure Name Priority Date/Time Associated Diagnosis Comments OUTSIDE IMAGING SCAN 03/11/2023 documented in this encounter Results * OUTSIDE IMAGING SCAN (03/11/2023) Anatomical Region Laterality Modality Other Narrative 03/11/2023 Ordered by an unspecified provider. us Onbase Conversion OUTSIDE SCAN Final Result documented in this encounter Visit Diagnoses Not on filedocumented in this encounter Care Teams Pattern Shop Supervisor Relationship Specialty Start Date End Date Danis Huang DO PCP - General 04/16/21 11/09/23 Danis Huang DO PCP - General Internal Medicine 11/10/23 11/28/24 Danis Huang DO [address] [place] [address] PCP - General Internal Medicine 11/29/24 Xochitl Knox, migrant leaderCarpet Installer Helper 12/05/24 01/11/25 documented as of this encounter
--- OUTSIDE RECORDS SUMMARY | 2025-05-15 12:54 | XMS_ITS | Encounter Summary ---
Author Organization [facility] Address [address] [place] [address] Phone Care Team Providers Care Audio/Visual Operator Name Role Phone Danis Huang DO Primary Care Provider [phone] Danis Huang DO Primary Care Provider [phone] Danis Huang DO Primary Care Provider [phone] Xochitl Knox RN Unavailable Unavailable Encounter Details Date Type Department Care Team (Late st Contact Info) Description 03/13/2021 Orders Only [facility] [address] [place] [address] Conversion, Onbase Social History Tobacco Use Types [...] Description 11/22/2025 3:20 PM EDT Office Visit [facility] [address] [facility] [address] [place] [address] Xiomara Au MD 7[address] [facility] [address], [address] [place] [address] Scheduled Orders Name Type Priority Associated Diagnoses Orde r Schedule OUTSIDE LAB SCAN Lab Ordered: 03/13/2021 documented as of this encounter Visit Diagnoses Not on filedocumented in this encounter Care Teams Audio/Visual Operator Relationship Specialty Start Date End Date Danis Huang DO PCP - General 04/16/21 11/09/23 Danis Huang DO PCP - General Internal Medicine 11/10/23 11/28/24 [place] [address] [place], [place] [address] [place] [address] PCP - General Internal Medicine 11/29/24 Xochitl Knox, metal window frame makerOffice Administrative Assistant 12/05/24 01/11/25 documented as of this encounter
--- OUTSIDE RECORDS SUMMARY | 2025-05-15 12:54 | XMS_ITS | Encounter Summary ---
Author Organization [facility] Address [address] [place] [address] Phone Care Team Providers Care Forestry Biology Specialist Name Role Phone SalDanis Primary Care Provider [phone] Encounter Details Date Type Department Care Team (Late st Contact Info) Description 02/13/2025 Scanned Document [facility] [address] [place] [address] Scanning, Generic Provider Social History Tobacco Use Types Packs/Day Years Used Date Smoking Tobacco: Never Smokeless Tobacco: Never Alcohol Use Standard Drinks/Week Comments Yes 0 (1 standard drink = 0.6 oz pur e alcohol) social [facility] Utilities Answer Date Recorded In the past 12 months has e [employer], gas, oil, or water [employer] threatened to shut off services in your [...] any time in the past 12 m [facility], were you homeless or living in a senior living (including now)? No 11/29/2024 Comments Unknown Sex and Gender Information Value Date Recorded Sex Assigned at Not on file Legal Sex Female 1:24 PM EST Gender Identity Not on file Sexual Orientation Not on file documented as of this encounter Plan of Treatment Upcoming Encounters Date Type Department Care Team (Verenice moraes Contact Info) Description 11/22/2025 3:20 PM EDT Office Visit [address] [address] Xiomara Au MD [address] [facility] [address], [address] [place] [address] documented as of this encounter Visit Diagnoses Not on filedocumented in this encounter Additional Health Concerns Assessment Noted Time A fall risk assessment has been complete d for the patient 01/26/2025 10:19 AM EDT documented as of this encounter Care Teams Forestry Biology Specialist Relationship Specialty Start Date End Date Danis Huang DO [address] [place] [place] [address] PCP - General Internal Medicine 11/29/24 documented as of this encounter
--- OUTSIDE RECORDS SUMMARY | 2025-05-15 12:54 | XMS_ITS | Encounter Summary ---
Author Organization [facility] Address [address] [facility] [place] [address] Care Team Providers Care Credit Collector Name Role Phone Sal Danis Nowak DO Primary Care Provider [phone] Nikolai Muñoz Unavailable [phone] Reason for Visit * Reason Comments Med Refill Encounter Details Date Type Department Care Team (Late st Contact Info) Description 12/06/2024 Refill YASMIN Ernandez OBGYAdrián [address] [facility] [phone] Shaq Calzada DO [address] Zoey Ernandez, [facility] Osteoporosis, post-menopausal Social History Tobacco Use [...] Description 05/29/2025 1:30 PM EDT Office Visit [facility] [place] [facility] [address] [place] [address] Dennis Miguel DO [address] [place] [address] 05/31/2025 9:30 AM EDT Office Visit [facility] [address] [place] [address] Nikolai Muñoz PA [address] [place] [address] 06/07/2025 11:00 AM EST Clinical Support [facility] [address] [place] [address] Lisa Zamorano, [facility] [address] [place] [address] 08/21/2025 2:15 PM EST Procedure Visit [facility] [address] [place] [address] Germán Weir, DPHannah [address] [place], [place] [address] documented as of this encounter Visit Diagnoses Diagnosis Osteoporosis, post-menopausal Senile osteoporosis documented in this encounter Care Teams Credit Collector Relationship Specialty Start Date End Date Danis Huang DO [address] [place] [address] PCP - General Internal Medicine 12/15/22 Nikolai Muñoz PA [address] [facility] [place] [address] PCP - Medical Latty MA 08/03/2408/02 documented as of this encounter
--- NOTE | 2025-05-15 12:59 | XR_ITS ---
[facility] [place] [id number] Patient Name: MARY TEE MRN: [id number] date: 1940 Sex: F Assigned Patient Location: [facility] Current Patient Location: [facility] Accession/Order Number: [id number] Exam Date: 05/15/2025 13:15 Report Date: 05/15/2025 17:22 At the request of: IVAN BARRETO DO Procedure: XR ribs LT min 3V w CXR1V XR ribs LT min 3V w CXR1V 05/15/2025 1:46 PM SIGNS AND SYMPTOMS: ^Chest Pain , left lateral and posterior rib pain PROTOCOL: Frontal radiograph of the chest with oblique radiographs of the left ribs COMPARISON: 04/07/2024 FINDINGS: The trachea is midline. Atherosclerotic changes are present in the thoracic ureter. The heart and mediastinal structures are within normal limits. The lung parenchyma is clear. The bony thorax is intact. Degenerative changes are noted in the shoulders and thoracic spine. No acute displaced fracture. XR/XR ribs LT min 3V w CXR1V IMPRESSION: No acute cardiopulmonary pathology. No acute displaced rib fracture. Impression dictated by: Catracho Rodas M.D. 05/15/2025 5:22 PM Dictation Location: [place] [address] Electronically authenticated by: [id number] Y Date: 05/15/2025 17:22
--- OUTSIDE RECORDS SUMMARY | 2025-05-15 13:01 | XMS_ITS | CCD ---
Author Organization [facility] Care Team Providers Care Meat Inspector Name Role Phone BUSBYBONIFACIOARNULFO Dodson Unavailable Unavailable PORFIRIO VU Unavailable Unavailable Porfirio Vu Primary Care Provider [phone] Ivan Barreto Unavailable Unavailable Unavailable Ivan Barreto Unavailable DR PINEDA SANTILLAN Admitting Unavailable MARY LOU, DR MOSCOSO Primary Care Unavailable BRYCE, DR SUNG Attending Unavailable BRYCE, DR SUNG Consulting Unavailable KARASIK ., DR GAINES Consulting Unavailangel BARRETO, DR MOSCOSO Primary Care Unavailable KARASIK ., DR GAINES Admitting Unavailabl e KARASIK ., DR GAINES Attending Unavailabl e KARASIK ., DR GAINES Attending Unavailabl e KARASIK ., DR GAINES Consulting Unavailangel e MARY LOU, DR MOSCOSO Primary Care Unavailable KARASIK ., DR GAINES Admitting Unavailabl e YOSELIN KING Consulting Unavailable DO Chaitanya Lu Emergency Provider [phone] MD Porfirio Vu Primary Care Provider DO Allan Townsend Admit Provider DO Allan Townsend Attending Provider [phone] MD Odalis Hager Other Provider DO Ivan Barreto Primary Care Provider Dr. Pineda Santillan II Attending Unavailable Dr. Ivan Barreto Primary Care Unavai Ivan Blackburn DO Primary Care Provider Ivan Barreto DO Primary Care Provider DO Ivan Barreto Primary Care Provider DO Allan Townsend Attending Provider [phone] Mary Lou RBUSH, Ivan E Primary Care Provider DO Alexei Stone Emergency Provider DO Ivan Barreto Attending Provider IVAN BARRETO Primary Care Physician [phone] Mary Lou, DO Moscoso Primary Care Provider [phone] ViscDO Jordan ba Attending Provider Mary Lou SAMS, Ivan Nowak Primary Care Provider Ball DO, Ivan E Primary Care Provider MARY LOU, IVAN E Referring Unavailable BALL, IVAN E Primary Care Unavailable BIYANI, RAMONE Attending Unavailable BALL, IVAN E Referring Unavailable BALL, IVAN E Primary Care Unavailable BIYANI, RAMONE Referring Unavailable BALL, IVAN E Primary Care Unavailable BALL, IVAN E Referring Unavailable BALL, IVAN E Primary Care Unavailable BALL, IVAN E Referring Unavailable BALL, IVAN E Primary Care Unavailable BIYANI, RAMONE Attending Unavailable BALL, IVAN E Referring Unavailable BALL, IVAN E Primary Care Unavailable BIYANI, RAMONE Referring Unavailable BALL, IVAN E Primary Care Unavailable NIENBERGCELINA Attending Unavailable BALL, IVAN E Referring Unavailable BALL, IVAN E Primary Care Unavailable NIENBERG, LEON Young Attending Unavailable BALL, IVAN E Referring Unavailable BALL, IVAN E Primary Care Unavailable ARAGON, PINEDA Nowak Attending Unavailable ARAGON, PINEDA Noawk Referring Unavailable BALL, IVAN E Primary Care Unavailable ARAGON, PINEDA Nowak Admitting Unavailable ARAGON, PINEDA Nowak Attending Unavailable BALL, IVAN E Referring Unavailable BALL, IVAN E Primary Care Unavailable BIYANI, RAMONE Referring Unavailable BALL, IVAN E Primary Care Unavailable BIYANI, RAMONE Referring Unavailable BALL, IVAN E Primary Care Unavailable BIYANI, RAMONE Referring Unavailable BALL, IVAN E Primary Care Unavailable Ball DO, Ivan E Primary Care Provider Ivan Barreto DO Primary Care Provider Jerson Aranda DO Emergency Provider Katya Borges MD Admit Provider Katya Borges MD Attending Provider Shelby Goldstein RN Other Provider Unavailable Allan Townsend DO Other Provider Pao SAMS, Chelsie Other Provider [phone] Bryce SAMS, Pineda Arthur Other Provider Roe SAMS, Jamia Other Provider Esteban SAMS, Cali Other Provider Sulma Busby APRN Other Provider Myra Gold MD Other Provider Naga SAMS, Yoav Diaz Other Provider Jitendra SAMS, Lul Other Provider [place] [facility], Mildred Bermudez Other Provider Nolan Ballesteros DO Attending Provider SHANICE DE LA CRUZ Admitting Unavailable SHANICE DE LA CRUZ Attending Unavailable IVAN BARRETO Primary Care Unavailable Ivan Barreto DO Primary Care Provider JAMIA NDIAYE Referring Unavailable IVAN BARRETO Primary Care Unavailable BRITTON NAQVI Admitting Unavailable NIR MIN Attending Unavailable Xochitl Knox RN Unavailable Unavailable Antonina Cooper Attending Unavailable Jerson STREETER Attending Unavailable Jerson STREETER Attending Unavailable Antonina Cooper Attending Unavailable Jerson STREETER Attending Unavailable Jerson STREETER Attending Unavailable Jerson STREETER Attending Unavailable Ivan Barreto DO Primary Care Provider Ivan Barreto DO Primary Care Provider Jerson Streeter MD Attending Provider Xochitl Du CMA Attending Provider Unavaila ble Ivan Barreto DO Attending Provider Angie Davidson MD Emergency Provider [phone] Louis Oliveira MD Admit Provider Louis Oliveira MD Attending Provider Angie Davidson MD Emergency Provider Lousi Oliveira MD Admit Provider Rashawn Mahmood DO Attending Provider Rashawn Mahmood DO Other Provider Sandra Heart MD Other Provider [phone] Rashawn Mahmood DO Other Provider Sandra Heart MD Attending Provider [phone] Ball, Ivan Primary Care Unavailable Jerson Aranda Attending Unavailable Jerson Aranda Admitting Unavailable TeeLouis bermudez Admitting Unavailable Ball, Vian Primary Care Unavailable Rashawn Mahmood Consulting Unavailable Sandra Heart Attending Unavailable Nolan Ballesteros Attending UnavailShelby Pisano Consulting Unavailable Ball, Ivan Primary Care Unavailable Katya Borges Admitting Unavailable Allan Townsend Consulting Unavailable CedenoChelsie Consulting Unavailable Pineda Santillan Consulting Unavail able Traboulssi, Moshirley Consulting Unavailable Cali Orellana Consulting Unavailab Sulma Crenshaw Consulting Unavailable Gold, Myra Consulting Unavailable Naga, Yoav Najeeb Consulting Unavailab Lul Farrell Consulting Unavailable DenverMildred granda Consulting Unavailable SULMA BUSBY Attending Unavailable TRABOULSSI, MOURHAF Referring Unavailable BALL, IVAN E Primary Care Unavailable TRABOULSSI, MOURALFREDITOF Attending Unavailable BALL, IVAN E Primary Care Unavailable TRABOULSSI, MOURHAF Referring Unavailable TRABOULJOSEI, KADEEMF Attending Unavailable PINEDA SANTILLAN Referring Unavailable BALL, IVAN E Primary Care Unavailable TRABOULSSI, MOURHAF Attending Unavailable BALL, IVAN E Primary Care Unavailable TRABOULSSI, MOURHAF Attending Unavailable BALL, IVAN E Primary Care Unavailable TRABOULSSI, MOURHAF Referring Unavailable Celina Baker Unavailable LISA DAVENPORT Attending Unavailable VISCI, JORDAN Starks Attending Unavailable RUS, YOSELIN Starks Attending Unavailable CELINA MUÑOZ Attending Unavailable CELINA MUÑOZ Referring Unavailable ALYX, JORDAN Starks Attending Unavailable BARRERA, YOSELIN Starks Attending Unavailable BARRERA, YOSELIN Starks Attending Unavailable AIDAN SUAZO Referring Unavailable VISCElizabeth, JORDAN Starks Attending Unavailable GOLDIEAIDAN ROJAS Attending Unavailable GOLDIEAIDAN ROJAS Referring Unavailable RUS, YOSELIN A Attending Unavailable Allergies Allergy Classification Reported Allergen(s) Allergy Type Date of Onset Reaction(s) Facility (1 source) No Known Medication Allergies; 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: [No Known Medication Allergies] Propensity to adverse reactions (disorder) [facility] Repository Medications Current Medications Medication Drug Class(es) Dates Sig (Normalized) Sig (Original) Acetaminophen (20 sources) Start: 11-29-2024 take 1 tablet by mouth every four hours as needed acetaminophen (Tylenol) tablet 650 mg Start: 11-16-2023 take 2 tablets by mo [facility] every six hours as needed for pain Acetaminophen (Tylenol Extra Strength) 500 mg tablet Active 1000 MG PO Every 6 hours as needed for pain November 16, 2023 12:00am Complies with drug therapy alendronic acid 70 mg oral tablet (20 sources) Bisphosphonate Start: 11-17-2023 End: 11-16-2024 take 1 tablet by mouth in the morning alendronate (Fosamax) 70 MG tablet Indications: Osteoporosis, post-menopausal Take 1 tablet (70 mg) by mouth every 7 (seven) days Take in the morning with a full glass of water, on an empty stomach, and do not take anything else by mouth or lie down for the next 30 min. 4 tablet 11 11/17/2023 Active Start: 05-28-2022 take 1 tablet by tamara every week Alendronate 70 mg tablet Active 70 MG PO every week January 14, 2023 12:00am EVERY THURSDAY Complies with drug therapy take 1 tablet by tamara once daily Alendronate Sodium 70 MG 1 [...] MG PO Daily November 02, 2017 12:00am Complies with drug therapy take 1 tablet by tamara th once daily Aspirin 81 81 MG 1 tablet Orally Once a day Active Baby Aspirin Act philippe Comment on above: Take one (1) tablet daily. atorvastatin 80 mg oral tablet (20 sources) HMG-CoA Reductase Inhibitor Start: take 1 tablet by mouth once daily in the evening Atorvastatin 80 mg tablet Active 80 MG PO Every evening 100 100 February 02, 2025 12:59pm Complies with drug therapy Start: 11-29-2024 take 80 mg by mouth once daily 80 mg, oral, Daily, First dose on Thu11/29/24 at 2100 Start: 07-12-2024 End: 02-02-2025 take 1 tablet by mouth once daily Atorvastatin 80 mg tablet Discontinued 0 .ROUTE .COMPLEX 100 July 12, 2024 2:15pm February 02, 2025 12:59pm TAKE 1 TABLET BY MOUTH EVERY DAY Start: 03-19-2023 take 2 tablets by mo [facility] once daily Atorvastatin Calcium 40 MG Oral Tablet TAKE 2 TABLET Daily Quantity: 180 Refills: 0 Ordered: 19-Mar-2023 Pineda Santillan MD Start : 19-Mar-2023 Active Patient states she cannot swallow an 80 mg tablet Start: 01-16-2023 End: 07-12-2024 take 1 tablet by mouth once daily in the evening Atorvastatin 80 mg Tablet Discontinued 80 MG PO Every evening January 16, 2023 12:00am July 12, 2024 2:15pm azithromycin 250 mg oral tablet (2 sources) [...] unt oral tablet (20 sources) Vitamin D Start: 11-17-2023 take 1 tablet by mouth once daily Calcium Carbonate-Vitamin D3 500 mg-5 mcg (200 unit) tablet Active 1 TAB PO Daily November 17, 2023 12:00am Complies with drug therapy take 1 tablet by tamara once in the morning Calcium Carbonate-Vitamin D (Oyster Linda l Calcium/D) 500-5 MG-MCG tablet Take 1 tablet by mouth in the morning. Active Calcium Carbonate / vitamin D3 (10 sources) Start: 11-17-2023 take 1 tablet by mouth once daily Calcium Carbonate-Vitamin D3 Active 1 TAB PO Daily November 17, 2023 12:00am Calcium Carbonate-Vitamin D3 500 mg-5 mcg (200 unit) tablet (5 sources) Start: 11-17-2023 take 1 tablet by mouth once daily Calcium Carbonate-Vitamin D3 500 mg-5 mcg (200 unit) tablet Active 1 TAB PO Daily November 17, 2023 12:00am Start: 11-17-2023 take 1 tablet by tamara th once daily Calcium Carbonate-Vitamin D3 500 mg-5 mcg (200 unit) tablet Active 1 TAB PO Daily November 16, 2023 11:00pm carvedilol 3.125 mg oral tablet (20 sources) alpha-Adrenergic Elpidio, beta-Adrenergic Elpidio Start: 01-26-2025 End: 01-26-2026 take 1 tablet by mouth twice daily carvedilol (Coreg) 3.125 mg tablet Indications: Essential hypertension Take 1 tablet (3.125 mg) by mouth 2 times daily (morning and late afternoon). 180 tablet 3 01/26/2025 01/26/2026 Active Start: 01-16-2023 End: 01-26-2025 take 1 tablet by mouth twice daily at mealtime Carvedilol 6.25 mg Tablet Discontinued 6.25 MG PO Twice daily with meals 60 January 16, 2023 12:00am January 26, 2025 2:05pm cetirizine hydrochloride 10 mg oral tablet (2 sources) Histamine-1 Receptor Antagonist Start: 03-16-2023 take 1 tablet by mouth every twenty-four hours Cetirizine HCl 10 MG 1 tablet Orally Once a day for 30 days Mar, Active cholecalciferol 0.125 mg oral capsule (20 sources) Vitamin D Start: 01-14-2023 End: 12-09-2024 take 1 capsule by mouth once daily cholecalciferol (Vitamin D-3) 125 mcg (5000 UT) capsule Take 1,000 Units by mouth once daily. 01/14/2023 12/09/2024 Discontinued (Discontinued by another clinician) Start: 01-14-2023 End: 11-17-2023 take 1 capsule by mouth once daily Cholecalciferol (Vitamin D3) (Vitamin D3) 25 mcg (1,000 unit) Capsule Discontinued 25 MCG PO Daily January 14, 2023 12:00am November 17, 2023 12:55pm End: 01-25-2025 take 1 capsule by mouth in the morning cholecalciferol (Vitamin D-3) 25 MCG (1000 UT) capsule Take 1,000 Units by mouth in the morning. 01/25/2025 Discontinued (Therapy completed) cholecalciferol, vitamin D3, (VITAMIN D3) 5,000 units capsule Take 1,000 Units by mouth daily. Active take 1 capsule by mo [facility] every twenty-four hours Vitamin D3 50 MCG (2000 UT) 1 capsule Orally Once a day Active clopidogrel 75 mg oral tablet (20 sources) P2Y12 Platelet Inhibitor Start: 10-26-2024 End: 10-26-2025 take 1 tablet by mouth in the morning clopidogrel (Plavix) 75 MG tablet Take 75 mg by mouth in the morning. 10/26/2024 10/26/2025 Active docusate sodium 100 mg oral capsule (20 sources) Start: 11-29-2024 take 2 capsules by mouth twice daily as needed for constipation Docusate Sodium 100 mg Capsule Active 200 MG PO Twice daily as needed for Constipation 0 November 29, 2024 12:00am Complies with drug therapy Start: 01-14-2023 take 2 capsules by [facility] twice daily docusate sodium (Colace) 50 mg capsule Take 2 capsules (100 mg) by mouth 2 times a day. 01/14/2023 Active Start: 01-14-2023 End: 11-29-2024 take 1 capsule by mouth twice daily Docusate Sodium 50 mg Capsule Discontinued 50 MG PO Twice daily January 14, 2023 12:00am November 29, 2024 8:18am take 1 capsule by [facility] once daily as needed Docusate Sodium 50 MG 1 capsule as needed Orally Once a day Active Docusate Sodium TABS TAKE 1 TABLET DAILY DIRECTED. Quantity: 0 Refills: 0 Ordered: 05-Feb-2023 DO Active estradiol 0.1 mg/ml vaginal cream (20 sources) Estrogen Start: 11-25-2024 Estradiol 0.01 % (0.1 mg/gram) cream Active 1 APPLICATOR VAGINAL Daily November 25, 2024 12:00am Complies with drug therapy Start: 09-28-2024 apply 2 g vaginal ro alexandra every twenty-four hours as needed estradiol (Estrace) 0.01 % (0.1 mg/gram) vaginal cream Insert 0.5 Applicatorfuls (2 g) into the vagina once daily as needed. 09/28/2024 Active Start: 01-29-2024 estradiol (Est race) 0.1 MG/GM vaginal cream Indications: Vaginal atrophy 1 gram at bedtime for 2 weeks then twice weekly 42 g 3 01/29/2024 Active irbesartan 75 mg oral tablet (1 source) Angiotensin 2 Receptor Elpidio End: 12-03-2024 take 1 tablet by mouth once daily at bedtime irbesartan (Avapro) 75 mg tablet Take 1 tablet (75 mg) by mouth once daily at bedtime. This was started 11/26/24, at [facility]. She was Not taking at home. 12/03/2024 Discontinued (Stop Taking at Discharge) lidocaine 0.04 mg/mg medicated patch (3 sources) Antiarrhythmic, Amide Local Anesthetic Start: 02-10-2025 apply 1 dose topically once daily as needed for pain Lidocaine 4 % adhesive patch,medicated Active 1 PATCH TOPICAL Daily as needed for pain (scale score 4-6) 5 February 10, 2025 12:00am Complies with drug therapy melatonin 5 mg oral tablet (1 source) Start: 12-01-2024 take 10 mg by mouth once daily as needed for sleep 10 mg, oral, Nightly PRN, sleep, Starting on Barbara 12/01/24 at 2042 24 hr mirabegron 25 mg extended release oral tablet (20 sources) beta3-Adrenergic Agonist Start: 02-28-2025 End: 02-28-2026 take 1 tablet by mouth every twenty-four hours at bedtime mirabegron ER (Myrbetriq) 25 MG 24 hr tablet Indications: Urge incontinence , Urinary frequency Take 1 tablet (25 mg) by mouth at bedtime Do not crush, chew, or split. 90 tablet 3 02/28/2025 02/28/2026 Active Start: 03-02-2024 take 1 tablet by tamara th once daily Mirabegron (Myrbetriq) 25 mg tablet extended release 24 hr Active 25 MG PO Daily March 02, 2024 12:00am Start: 02-24-2024 End: 02-23-2025 take 1 tablet by mouth every twenty-four hours at bedtime Mirabegron (Myrbetriq) 25 mg tablet extended release 24 hr Active 25 MG PO Bedtime March 02, 2024 12:00am Complies with drug therapy 1 ml morphine sulfate 2 mg/ml prefilled syringe (1 source) Opioid Agonist Start: 12-02-2024 2 mg, intraven ous, Every 1 hour PRN, Chest Pain, Starting on Thu12/02/24 at 1331, Phase II/On Unit, If ordered PRN for pain, nurse is permitted to administer this medication for higher pain scores based on patient preference? Yes nitroglycerin 0.4 mg sublingual tablet (20 sources) Nitrate Vasodilator Start: 11-30-2024 Starting o n Thu11/30/24 at 1828, For 1 dose, Created by cabinet override Start: 11-19-2023 End: 04-25-2024 apply 0.2 mg transdermal route every hour, then apply 1 dose transdermal route every twenty-four hours Nitroglycerin (Nitro-Dur) 0.2 mg/hr patch 24 hour Discontinued 1 PATCH TRANSDERML Daily November 19, 2023 12:00am April 25, 2024 10:50am allow nitrate-free interval of approx. 10-12 hrs per 24-hour period Start: 01-16-2023 Nitroglycerin 0.4 mg Tablet, Sublingual Active 0.4 MG SUBLINGUAL Q5M as needed for Chest Pain January 16, 2023 12:00am Complies with drug therapy End: 01-25-2025 apply 0.1 mg transdermal route every hour nitroglycerin (Nitrodur) 0.1 MG/HR patch Place 1 patch on the skin Daily 01/25/2025 Discontinued (Dose adjustment) Nitroglycerin 0. 4 MG as directed Sublingual Active Ondansetron (1 source) Serotonin-3 Receptor Antagonist Start: 11-29-2024 take 1 tablet by mouth every eight hours as needed ondansetron (Zofran) tablet 4 mg oxybutynin chloride 5 mg oral tablet (1 source) Cholinergic Muscarinic Antagonist Start: 11-29-2024 take 5 mg by mouth twice daily 5 mg, oral, 2 times daily, First dose on Thu11/29/24 at 2100 pantoprazole 40 mg delayed release oral tablet (20 sources) Proton Pump Inhibitor Start: 10-28-2024 take 1 tablet by mouth before mealtime pantoprazole (ProtoNix) 40 MG EC tablet Take 40 mg by mouth in the morning. Take before meals. 10/28/2024 Active Start: 10-26-2024 End: 02-24-2025 Pantoprazole 40 mg tablet,de layed release (DR/EC) Discontinued 40 MG PO Daily 90 90 October 28, 2024 12:55pm February 24, 2025 10:25am take on empty stomach, 30 minutes prior to bkfst polyethylene glycol 3350 10208 mg powder for oral solution (1 source) Osmotic Laxative Start: 11-29-2024 pravastatin sodium 80 mg oral tablet (20 sources) HMG-CoA Reductase Inhibitor Start: 09-17-2022 take 1 tablet by mouth every twenty-four hours Pravastatin Sodium 80 MG 1 tablet Orally Once a day for 100 days Sep, Active Start: 11-02-2017 End: 01-16-2023 take 1 tablet by mouth at bedtime Pravastatin 40 mg tablet Discontinued 1 TAB PO Bedtime November 02, 2017 12:00am January 16, 2023 1:36pm Pravastatin Sodi um 40 MG 2 Orally daily for 90 days Active take 1 tablet by tamara th every twelve hours Pravastatin Sodium 40 MG 1 tablet Orally twice a day for 100 days Active 12 hr ranolazine 500 mg extended release oral tablet (20 sources) Anti-anginal Start: 12-02-2024 take 1 tablet by mouth twice daily ranolazine (Ranexa) 500 mg 12 hr tablet Indications: Angina pectoris, unspecified Take 1 tablet (500 mg) by mouth 2 times a day. Do not crush, chew, or split. 60 tablet 2 12/03/2024 Active Vitamin D3 (3 sources) Start: 02-08-2024 Vitamin D3 Refills(s) 0 Start Date: 02/08/24 Status: Ordered {20 [...] Class(es) Dates Sig (Normalized) Sig (Original) acetaminophen 325 mg / HYDROcodone bitartrate 5 mg oral tablet (6 sources) Opioid Agonist Start: 02-03-2025 End: 02-06-2025 take 1 tablet by mouth every six hours as needed for pain Hydrocodone-Acetam inophen 5-325 mg tablet Discontinued 1 TAB PO Q6H as needed for Pain 05 07February 03, 2025 February 06, 2025 2:31pm amoxicillin 500 mg oral capsule (20 sources) Penicillin-class Antibacterial Start: 02-26-2024 End: 03-02-2024 Amoxicillin 500 mg capsule Discontinued 2000 MG PO As Directed February 29, 2024 1:12pm March 02, 2024 10:05am Start: 02-26-2024 End: 03-02-2024 Amoxicillin Discontinued 200 0 MG PO As Directed February 29, 2024 [...] 02-Apr-2022 Complete Start: 12-13-2009 End: 01-16-2023 take 1 tablet by mouth at bedtime Atenolol 25 mg Tablet Discontinued 25 MG PO Bedtime November 02, 2017 12:00am January 16, 2023 1:36pm Comment on above: Take one(1) tablet d aily. 5 ml bupivacaine hydrochloride 5 mg/ml injection (4 sources) Amide Local Anesthetic Start: 01-10-2025 End: 01-10-2025 bupivacaine PF (Marcaine) 0.5 % injection 2 mL Start: 01-10-2025 End: 01-10-2025 2 mL, Injection, Once PRN Pr ocedure, Starting on Thu01/10/25 at 1205, For 1 dose cefuroxime 500 mg oral tablet (2 sources) Cephalosporin Antibacterial Start: 02-12-2025 End: 02-24-2025 take 1 tablet by mouth twice daily Cefuroxime Axetil 500 mg tablet Discontinued 500 MG PO Twice daily February 12, 2025 12:00am February 24, 2025 10:24am ciprofloxacin 500 mg oral tablet (2 sources) Quinolone Antimicrobial Start: 02-18-2024 take 1 tablet by mouth once daily Cipro 500 mg Tab 500 mg = 1 tab(s), Oral, Daily, Take 1 tablet the day before the procedure and 1 tablet after the procedure, # 2 tab(s), Refills(s) 0, Pharmacy: [id number], 165, cm, 02/08/24 11:04:00 EDT, Height/Length [...] 1 IN T HE PM diclofenac sodium 0.01 mg/mg topical gel (20 sources) Nonsteroidal Anti-inflammatory Drug Start: 11-29-2024 End: 12-05-2024 apply 4 g topically four times daily Diclofenac Sodium 1 % Gel Discontinued 4 GM TOPICAL Four times daily 0 November 29, 2024 12:00am December 05, 2024 9:44am Start: 11-29-2024 End: 12-05-2024 apply 4 g topically four times daily Diclofenac Sodium 1 % Gel Discontinued 4 GM TOPICAL Four times daily 0 November 29, 2024 12:00am December 05, 2024 9:44am Start: 11-29-2024 apply 4 g topically four times daily Diclofenac Sodium 1 % Gel Active 4 GM TOPICAL Four times daily 0 November 29, 2024 12:00am Start: 11-02-2017 End: 06-16-2018 take 1 tablet by mouth twice daily Diclofenac Sodium 75 mg Tablet,Delayed Release (Dr/Ec) Discontinued 75 MG PO Twice daily November 02, 2017 12:00am June 16, 2018 2:38pm furosemide 40 mg oral tablet (20 sources) Loop Diuretic Start: 12-23-2023 End: 12-24-2023 take 1 tablet by mouth once daily Furosemide (Lasix) 40 mg tablet Discontinued 40 MG PO Daily December 23, 2023 12:00am December 24, 2023 9:54am 250 ml heparin sodium, porcine 100 unt/ml injection (9 sources) Unfractionated Heparin, Anti-coagulant Start: 11-29-2024 End: 12-02-2024 0-4,000 Units/hr (0-40 mL/hr), intravenous, Continuous, Starting on Thu11/29/24 at 1615, Until Thu12/02/24 at 1330, Low Intensity Heparin Protocol ( Use heparin calculator for units/hr rate Maximum Initial Dose: 1000 units/hr Recheck Heparin Assay, UFH level 4 hours after any rate change, or per protocol. Titration Table: Heparin Assay, UFH 1.2: No Bolus. HOLD heparin infusion for 1 hour, then recheck heparin assay: *If repeat is > 0.6, continue to HOLD INFUSION. -Confirm last draw was performed correctly (pump was paused for a minimum of 2 minutes, sample NOT drawn off line/lumen where medication was infusing) -Contact provider for further orders. *If repeat is Start: 11-29-2024 End: 12-05-2024 Heparin(Porcine) In 0.45% Na cl 25,000 unit/250 mL Parenteral Solution Discontinued 05506 UNIT IV .Q24H 0 November 29, 2024 12:00am December 05, 2024 9:44am hydroCHLOROthiazide 25 mg oral tablet (20 sources) Thiazide Diuretic Start: 02-09-2025 Hydrochlorothiazide 25 mg tablet Active 12.5 MG PO Daily February 09, 2025 12:00am On Hold: Hold until Thursday TAKE 1 TABLET BY MOUTH EVERY 48 HOURS Complies with drug therapy Start: 11-29-2024 take 12.5 mg by mout h once daily 12.5 mg, oral, Daily, First dose on Thu11/29/24 at 1615, On hold since Thu12/02/2024 at 0800 until manually unheld Start: 10-31-2024 End: 04-11-2025 take 0.5 tablet by mouth once daily hydroCHLOROthiazide (HYDRODiuril) 25 mg tablet Take 0.5 tablets (12.5 mg) by mouth once daily. 10/31/2024 04/11/2025 Discontinued (Side effects) Start: 03-29-2024 End: 02-09-2025 Hydrochlorothiazide 25 mg ta blet Discontinued 0 .ROUTE .COMPLEX October 31, 2024 9:19am February 09, 2025 11:02pm TAKE 1 TABLET BY MOUTH EVERY 48 HOURS Start: 03-09-2024 take 1 tablet by tamara th every other day hydroCHLOROthiazide (HYDRODiuril) 25 MG tablet Take 25 mg by mouth every other day 03/09/2024 Active Start: 12-24-2023 End: 03-29-2024 Hydrochlorothiazide 25 mg ta blet Discontinued 25 MG PO Every 48 hours December 24, 2023 12:00am March 29, 2024 9:38am hydroCHLOROthiazide 12.5 mg / irbesartan 150 mg oral tablet (7 sources) Thiazide Diuretic, Angiotensin 2 Receptor Elpidio Start: 12-13-2009 End: 01-14-2023 take 1 tablet by mouth once daily Irbesartan-Hydrochlorothiazide 150-12.5 mg tablet Discontinued 1 TAB PO Daily November 02, 2017 12:00am January 14, 2023 11:55am Comment on above: Take 1 tablet daily hydroCHLOROthiazide 12.5 mg / telmisartan 80 mg oral tablet (20 sources) Thiazide Diuretic, Angiotensin 2 Receptor Elpidio Start: 11-17-2023 End: 12-24-2023 take 1 tablet by mouth once daily Telmisartan-Hydrochlorothiazid (Micardis Hct) 80-12.5 mg tablet Discontinued 1 TAB PO Daily November 17, 2023 12:00am December 24, 2023 9:54am On Hold: hypotension Start: 01-14-2023 End: 11-17-2023 take 1 tablet by mouth once daily Telmisartan-Hydrochlorothiazid 40-12.5 m g tablet Discontinued 1 TAB PO Daily January 14, 2023 12:00am November 17, 2023 12:54pm Start: 05-29-2022 End: 01-25-2025 take 1 tablet by mouth in the morning telmisartan-hydrochlorothiazid (MIcarDIS HCT) 40-12.5 mg tablet Take 1 tablet by mouth early in the morning.. Patient states, she hasn't been taking this med. She is unsure if she was suppose to still take it. 10/11/2023 11/29/2024 Discontinued (Entered in Error) hydrOXYzine hydrochloride 25 mg oral tablet (20 sources) Antihistamine Start: 09-02-2023 End: 01-25-2025 take 1 tablet by mouth once daily at bedtime Hydroxyzine Hcl 25 mg tablet Discontinued 25 MG PO Daily at bedtime October 20, 2023 12:00am November 16, 2023 2:04pm take 1 tablet by mouth once at b edtime hydrOXYzine HCl 25 MG 1 tablet Orally q HS for 30 days Active Irbesartan-Hydrochlorothiazi de (14 sources) Start: 11-02-2017 End: 01-14-2023 take 1 tablet by mouth once daily Irbesartan-Hydrochlorothiazide Discontinued 1 TAB PO Daily November 02, 2017 12:00am January 14, 2023 11:55am Irbesartan-Hydrochlorothiazi de 150-12.5 mg tablet (5 sources) Start: 11-02-2017 End: 01-14-2023 take 1 tablet by mouth once daily Irbesartan-Hydrochlorothiazide 150-12.5 mg tablet Discontinued 1 TAB PO Daily November 02, 2017 12:00am January 14, 2023 11:55am Start: 11-02-2017 End: 01-14-2023 take 1 tablet by mouth once daily Irbesartan-Hydrochlorothiazide 150-12.5 mg tablet Discontinued 1 TAB PO Daily November 01, 2017 11:00pm January 14, 2023 10:55am LORazepam 0.5 mg oral tablet (19 sources) Benzodiazepine Start: 05-17-2024 End: 01-25-2025 LORazepam (Ativan) 0.5 MG tablet Indications: Chronic low back pain, unspecified back pain laterality, unspecified whether sciatica present Take 1 tablet (0.5 mg) by mouth See administration instructions for 1 dose 1 by mouth 1 hour prior to MRI 1 tablet 05/17/2024 01/25/2025 Discontinued (Therapy completed) losartan potassium 25 mg oral tablet (20 sources) Angiotensin 2 Receptor Elpidio Start: 12-04-2024 End: 04-11-2025 take 1 tablet by mouth once daily losartan (Cozaar) 25 mg tablet Indications: Essential hypertension Take 1 tablet (25 mg) by mouth once daily. 30 tablet 3 12/04/2024 04/11/2025 Discontinued (Side effects) Start: 12-04-2024 take 1 tablet by tamara once daily losartan (Cozaar) 25 mg tablet Indications: Essential hypertension Take 1 tablet (25 mg) by mouth once daily. 30 tablet 3 12/04/2024 Active Start: 12-02-2024 take 25 mg by mouth once daily 25 mg, oral, Daily, First dose on Thu12/02/24 at 0900 1 ml methylPREDNISolone acetate 40 mg/ml injection (12 sources) Corticosteroid Start: 01-10-2025 End: 01-10-2025 methylPREDNISolone acetate (DEPO-Medrol) injection 40 mg Start: 01-10-2025 End: 01-10-2025 40 mg, Intra-articular, Once PRN Procedure, Starting on Thu01/10/25 at 1205, For 1 dose Start: 05-10-2024 End: 05-10-2024 methylPREDNISolone acetate ( DEPO-Medrol) injection 40 mg Start: 05-10-2024 End: 05-10-2024 40 mg, Injection, Once PRN P rocedure, Starting on Thu05/10/24 at 1350, For 1 dose Start: 04-29-2024 End: 04-29-2024 methylPREDNISolone acetate ( DEPO-Medrol) injection 40 mg Start: 04-29-2024 End: 04-29-2024 40 mg, Injection, Once PRN P rocedure, Starting on Thu04/29/24 at 1611, For 1 dose Molnupiravir (14 sources) Start: 04-12-2024 End: 11-25-2024 take 1 capsule by mouth every twelve hours Molnupiravir 200 mg capsule Discontinued 800 MG PO Every 12 hours 40 April 12, 2024 12:00am November 25, 2024 4:03pm Start: 04-12-2024 take 1 capsule by mo [facility] every twelve hours Molnupiravir 200 mg capsule Active 800 MG PO Every 12 hours 40 April 12, 2024 12:00am Start: 04-12-2024 take 1 capsule by mo [facility] every twelve hours Molnupiravir 200 mg capsule Active 800 MG PO Every 12 hours 40 April 11, 2024 11:00pm Start: 04-12-2024 take 800 mg by mouth every twelve hours Molnupiravir Active 800 MG PO Every 12 hours 40 April 12, 2024 12:00am multivitamins(DAILY VITAMIN TAB) (1 source) Start: 12-13-2009 End: 01-22-2011 multivitamins(DAILY VITAMIN TAB) nitrofurantoin, macrocrystals 25 mg / nitrofurantoin, monohydrate 75 mg oral capsule (20 sources) Nitrofuran Antibacterial Start: 07-01-2024 End: 11-25-2024 take 1 capsule by mouth every twelve hours at mealtime Nitrofurantoin Monohyd/M-Cryst 100 mg capsule Discontinued 100 MG PO Every 12 hours 10 September 09, 2024 3:56pm November 25, 2024 4:03pm must administer with a meal/food Start: 01-29-2024 End: 03-02-2024 take 1 capsule by mouth twice daily at mealtime Nitrofurantoin Monohyd/M-Cryst (Macrobid) 100 mg capsule Discontinued 100 MG PO Twice daily 10 January 29, 2024 12:00am March 02, 2024 10:05am must administer with a meal/food nystatin 100 unt/mg topical ointment (20 sources) Polyene Antifungal Start: 01-11-2024 End: 01-25-2025 nystatin (Mycostatin) ointment Indications: Cutaneous Candidiasis Apply thin film BID prn irritation 30 g 1 01/11/2024 01/25/2025 Discontinued (Therapy completed) nystatin 100 unt/mg / triamcinolone acetonide 0.001 mg/mg topical ointment (8 sources) Polyene Antifungal, Corticosteroid Start: 09-28-2024 End: 01-25-2025 nystatin-triamcinolo ne (Mycolog II) ointment Indications: Vulvar irritation Apply topically 2 (two) times a day 15 g 2 09/28/2024 01/25/2025 Discontinued (Therapy completed) Omeprazole (20 sources) Proton Pump Inhibitor Start: 02-08-2024 End: 01-25-2025 Omeprazole Magnesium (PRILOSEC PO) Take by mouth 02/08/2024 01/25/2025 Discontinued (Therapy completed) Start: 02-08-2024 Omeprazole Mag nesium (PRILOSEC PO) Take by mouth 02/08/2024 Active Start: 02-08-2024 Prilosec Oral, Daily, Refills(s) 0 Start Date: 02/08/24 Status: Ordered Start: 11-02-2017 End: 10-26-2024 take 1 tablet by mouth once daily Omeprazole Magnesium (Prilosec Otc) 20 mg Tablet,Delayed Release (Dr/Ec) Discontinued 20 MG PO Daily November 02, 2017 12:00am October 26, 2024 10:11pm Start: 01-16-2009 End: 01-12-2024 omeprazole(PRILOSEC 20 MG CA P) Take one(1) capsule daily. 0 01/16/2009 Active End: 11-29-2024 take 10 mg by mouth once daily omeprazole (PriLOSEC) [address] capsule Take 10 mg by mouth once daily. 11/29/2024 Discontinued (Entered in Error) take 1 tablet by tamara th once daily PriLOSEC OTC 20 MG 1 tablet Orally Once a day Active PriLOSEC 20 MG C PDR 1/2 capsule daily Quantity: 0 Refills: 0 Ordered: 04-Jun-2022 DO Active Comment on above: Take one(1) capsule daily. Omeprazole Magnesium (Prilosec Otc) 20 mg Tablet,Delayed Release (Dr/Ec) (19 sources) Start: 11-02-2017 End: 10-26-2024 take 1 tablet by mouth once daily Omeprazole Magnesium (Prilosec Otc) 20 mg Tablet,Delayed Release (Dr/Ec) Discontinued 20 MG PO Daily November 02, 2017 12:00am October 26, 2024 10:11pm Start: 11-02-2017 take 1 tablet by tamara th once daily Omeprazole Magnesium (Prilosec Otc) 20 mg Tablet,Delayed Release (Dr/Ec) Active 20 MG PO Daily November 01, 2017 11:00pm Start: 11-02-2017 take 1 tablet by tamara th once daily Omeprazole Magnesium (Prilosec Otc) 20 mg Tablet,Delayed Release (Dr/Ec) Active 20 MG PO Daily November 02, 2017 12:00am regadenoson (Lexiscan) injection 0.4 mg (2 sources) Start: 11-10-2023 End: 11-10-2023 0.4 mg, intravenous, Once, On Thu11/10/23 at 0930, For 1 dose rosuvastatin calcium 10 mg oral tablet (1 source) HMG-CoA Reductase Inhibitor Start: 07-08-2007 rosuvastatin calcium(CRESTOR 10 MG TAB) 1000 ml sodium chloride 9 mg/ml injection (1 source) Start: 12-02-2024 End: 12-02-2024 take 100 mL intravenously every hour 100 mL/hr, intravenous, Continuous, Starting on Thu12/02/24 at 0130, For 1 day, Preprocedure sulfamethoxazole 800 mg / trimethoprim 160 mg oral tablet (1 source) Dihydrofolate Reductase Inhibitor Antibacterial, Sulfonamide Antimicrobial Start: 04-22-2022 Sulfamethoxazole -Trimethoprim 800-160 MG Oral Tablet Quantity: 10 Refills: 0 Ordered: 22-Apr-2022 DO Start : 22-Apr-2022 Complete tamsulosin (3 sources) alpha-Adrenergic Elpidio End: 10-26-2024 tamsulosin HCl (TAMSULOSIN ORAL) Take 70 mg by mouth every 7 days. 10/26/2024 Discontinued (Entered in Error) tamsulosin HCl ( TAMSULOSIN ORAL) Take 70 mg by mouth every 7 days. Active take 70 mg by mouth every week t amsulosin HCl (FLOMAX ORAL) Take 70 mg by mouth once a week. Active Tc-99m tetrofosmin (Myoview) injection 10 millicurie (2 [...] minutes prior to imaging unless otherwise indicated. telmisartan 20 mg oral tablet (20 sources) Angiotensin 2 Receptor Elpidio Start: 03-14-2024 End: 12-05-2024 take 1 tablet by mouth once daily Telmisartan 20 mg tablet Discontinued 0 .ROUTE .COMPLEX March 14, 2024 8:49am December 05, 2024 9:44am TAKE 1 TABLET BY MOUTH DAILY Start: 12-24-2023 End: 01-25-2025 take 1 tablet by mouth once daily Telmisartan 20 mg tablet Discontinued 20 MG PO Daily December 24, 2023 12:00am March 14, 2024 8:49am terconazole 4 mg/ml vaginal cream (1 source) Azole Antifungal Start: 12-26-2021 Terconazole 0 .4 % Vaginal Cream Quantity: 45 Refills: 0 Ordered: 26-Dec-2021 DO Start : 26-Dec-2021 Complete ticagrelor 90 mg oral tablet (20 sources) Start: 01-16-2023 End: 02-07-2025 take 1 tablet by mouth twice daily Ticagrelor (Brilinta) 90 mg Tablet Discontinued 90 MG PO Twice daily January 16, 2023 12:00am October 26, 2024 10:06pm Triamcinolone (20 sources) Corticosteroid Start: 09-22-2017 Kenalog -40 mg Sep, Start: 04-27-2017 Kenalog -40 mg Apr, Vitamin D3 CAPS (3 sources) Vitamin D3 CAPS TAKE 1 CAPSULE Daily Quantity: 0 Refills: 0 Ordered: 05-Feb-2023 DO Active Problems Active Problems Problem Classification Problem Date Documented Da te Episodic/Chronic Abdominal pain (16 sources) Right lower quadrant pain; 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: [Right lower quadrant pain] 04-25-2024 Episodic Acute bronchitis (3 sources) Acute bronchitis; 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: [Acute bronchitis due to other specified organisms] Episodic Acute myocardial infarction (20 sources) Myocardial infarction; 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: [ST elevation (STEMI) myocardial infarction of unspecified site] Onset: 01-14-2023 Chronic Acute posthemorrhagic anemia (2 sources) Acute posthemorrhagic anemia Episodic Allergic reactions (1 source) Urticaria, unspecified Episodic Cardiac dysrhythmias (4 sources) Palpitations; 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: [Palpitations] Onset: 5 01-26-2025 Episodic Chronic kidney disease (20 sources) Chronic kidney disease stage 3A ; 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: [Stage 3a chronic kidney disease] Chronic Conditions associated with dizziness or vertigo (4 sources) Dizziness and giddiness; 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: [Dizziness and giddiness] Episodic Congestive heart failure; nonhypertensive (20 sources) Congestive heart failure stage C; 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: [Congestive heart failure, unspecified] Onset: 3 06-15-2023 Chronic Comment on above: Echo: LVEF 60%, RVSP 30-40, , MR, TR - 01/2024, Coronary atherosclerosis and other heart disease (20 sources) Arteriosclerotic vascular disease; 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: [Cardiovascular disease, unspecified] Onset: 3 Chronic Comment on above: Echo: LVEF 60%, RVSP 30-40, , MR, TR - 01/2024 PCI/stent - 11/1999,P CI/stent LCX, PTCA distal LAD - 01/2023,PCI/stent LAD - 11/2023,PCI/stent ostial and distal LAD - 12/2024 Echo: LVEF 60%, RVSP 30-40, , MR, TR - 01/2024,PCI/stent - 11/1999,PCI/stent LCX, PTCA distal LAD - 01/2023,PCI/stent LAD - 11/2023,PCI/stent ostial and distal LAD - 12/2024 Deficiency and other anemia (20 sources) Anemia; 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: [Anemia, unspecified] 10-20-2023 Episodic Deficiency and other anemia (6 sources) Anemia, unspecified; 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: [Anemia, unspecified] 10-20-2023 Episodic Disorders of lipid metabolism (20 sources) Hyperlipidemia; 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: [Other and unspecified hyperlipidemia] Onset: 3 Chronic E Codes: Fall (14 sources) Accidental fall ; 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: [Unspecified fall, initial encounter] Onset: 5 02-06-2025 Episodic Esophageal disorders (20 sources) Gastro-esophageal reflux disease with esophagitis; 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: [Gastroesophageal reflux disease with esophagitis without hemorrhage] 02-08-2024 Chronic Essential hypertension (20 sources) Benign essential hypertension; 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: [Benign essential hypertension] Onset: 3 Chronic Essential hypertension (1 source) Essential hypertension Onset: 7 Fluid and electrolyte disorders (20 sources) Hypervolemia; 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: [Fluid overload, unspecified] Onset: 5 12-23-2023 Episodic Genitourinary symptoms and ill-defined conditions (4 sources) Unspecified urinary incontinence; 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: [Urge incontinence] Onset: 4 Chronic Heart valve disorders (20 sources) Aortic valve stenosis; 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: [Nonrheumatic aortic (valve) stenosis] Onset: 4 01-07-2024 Chronic Comment on above: Echo: JEANA 1.5cm, gra dient , velocity 248 - 01/2024 Hypertension with complications and secondary hypertension (16 sources) Hypertensive urgency ; 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: [Hypertensive urgency] Onset: 5 02-09-2025 Chronic Immunizations and screening for infectious disease (4 sources) Encounter for screening for human papillomavirus (HPV); 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: [Contact with and (suspected) exposure to other viral communicable diseases] Onset: 2 Episodic Menopausal disorders (6 sources) Atrophy of vagina; 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: [Postmenopausal atrophic vaginitis] 05-18-2024 Chronic Mycoses (5 sources) Onychomycosis due to dermatophyte ; 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: [Tinea unguium] 06-27-2024 Episodic Nausea and vomiting (13 sources) Nausea; 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: [Nausea] 10-20-2023 Episodic Nonmalignant breast conditions (1 source) Mastodynia Episodic Nonspecific chest pain (20 sources) Chest pain, unspecified; 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: [Chest pain] Onset: 7 Resolved: 2 11-10-2023 Episodic Nutritional deficiencies (20 sources) Vitamin D deficiency; 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: [Vitamin D deficiency, unspecified] Onset: 6 05-21-2023 Chronic Osteoarthritis (20 sources) Osteoarthritis of hip; 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: [Unilateral primary osteoarthritis, right hip] Onset: 0 05-21-2023 Chronic Osteoporosis (20 sources) Senile osteoporosis; 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: [Age-related osteoporosis without current pathological fracture] Onset: 2 Chronic Other acquired deformities (20 sources) Lumbar spondylolisthesis; 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: [Spondylolisthesis, lumbar region] 05-26-2024 Episodic Other acquired deformities (4 sources) Spondylolisthesis, lumbar region; 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: [Spondylolisthesis, lumbar region] Onset: 4 Episodic Other aftercare (3 sources) Long-term current use of drug therapy; 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: [Other [employer] (current) drug therapy] Episodic Other aftercare (2 sources) Long-term current use of anticoagulant; 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: [[facility] (current) use of anticoagulants] Onset: 4 Episodic Other aftercare (2 sources) Patient encounter status; 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: [Encounter for follow-up examination after completed treatment for conditions other than malignant neoplasm] Onset: 5 11-29-2024 Episodic Other aftercare (1 source) Encounter for follow-up examination after completed treatment for conditions other than malignant neoplasm; 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: [Encounter for follow-up examination after completed treatment for conditions other than malignant neoplasm] Onset: 5 Episodic Other circulatory disease (3 sources) Orthostatic hypotension; 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: [Orthostatic hypotension] Onset: 5 01-26-2025 Episodic Other connective tissue disease (20 sources) History of repair of hip joint; 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: [Presence of left artificial hip joint] Onset: 1 05-21-2023 Chronic Other connective tissue disease (3 sources) Presence of right artificial hip joint; 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: [Total hip replacement Prosthesis] Chronic Other connective tissue disease (12 sources) History of total hip arthroplasty; 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: [Presence of unspecified artificial hip joint] Onset: 1 04-25-2024 Chronic Comment on above: right Other connective tissue disease (1 source) Presence of unspecified artificial hip joint; 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: [Hip joint replacement] 04-25-2024 Chronic Other connective tissue disease (20 sources) Trochanteric bursitis of right hip; 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: [Trochanteric bursitis, right hip] Episodic Other connective tissue disease (20 sources) Trochanteric bursitis of left hip; 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: [Trochanteric bursitis, left hip] Episodic Other connective tissue disease (4 sources) Myalgia, unspecified site; 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: [Myalgia and myositis, unspecified] 05-10-2024 Episodic Other connective tissue disease (1 source) Pain in right arm; 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: [Pain in right arm] 05-27-2024 Episodic Other connective tissue disease (10 sources) Pain in toe; 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: [Pain in right toe(s)] 06-27-2024 Episodic Other diseases of bladder and urethra (10 sources) Urethral caruncle; 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: [Urethral caruncle] Onset: Episodic Other diseases of bladder and urethra (2 sources) Polyp of urethra 03-01-2024 Episodic Other diseases of veins and lymphatics (20 sources) Venous insufficiency of leg; 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: [Venous insufficiency (chronic) (peripheral)] 12-23-2023 Episodic Other diseases of veins and lymphatics (11 sources) Venous insufficiency (chronic) (peripheral); 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: [Venous (peripheral) insufficiency, unspecified] 12-24-2023 Episodic Other ear and sense organ disorders (1 source) Impacted cerumen of bilateral ears; 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: [Impacted cerumen, bilateral] 09-07-2024 Episodic Other female genital disorders (3 sources) Noninflammatory disorder of the vagina; 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: [Other specified noninflammatory disorders of vagina] Episodic Other female genital disorders (2 sources) Vulval irritation; 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: [Other specified noninflammatory disorders of vulva and perineum] 09-28-2024 Episodic Other fractures (2 sources) Fracture of rib; 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: [Fracture of one rib, unspecified side, initial encounter for closed fracture] 02-23-2025 Episodic Other gastrointestinal disorders (1 source) Diarrhea, unspecified Episodic Other hematologic conditions (2 sources) Protein electrophoresis abnormal; 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: [Other specified abnormalities of plasma proteins] 02-23-2025 Episodic Other inflammatory condition of skin (6 sources) Lichen simplex chronicus; 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: [Lichen simplex chronicus] 02-08-2024 Episodic Other injuries and conditions due to external causes (3 sources) History of fall; 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: [History of falling] Episodic Other injuries and conditions due to external causes (6 sources) Contusion of rib; 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: [Other specified injuries of thorax, initial encounter] 02-03-2025 Episodic Other injuries and conditions due to external causes (1 source) Other specified injuries of thorax, initial encounter; 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: [Other specified injuries of thorax, initial encounter] Onset: Episodic Other lower respiratory disease (9 sources) Dyspnea; 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: [Other respiratory abnormalities] 11-10-2023 Episodic Other lower respiratory disease (1 source) Shortness of breath; 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: [Shortness of breath] Onset: 3 Episodic Other lower respiratory disease (1 source) Dyspnea, unspecified; 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: [Dyspnea, unspecified] Onset: 3 Episodic Other nervous system disorders (20 sources) Chronic pain; 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: [Other chronic pain] Chronic Other nervous system disorders (1 source) Other chronic pain; 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: [Other chronic pain] Onset: 5 Chronic Other nervous system disorders (14 sources) Abnormal gait; Translations: [Unsteadiness on feet] 07-19-2024 Episodic Other nervous system disorders (2 sources) Unsteadiness on feet; Translations: [Abnormality of gait] Onset: 5 07-19-2024 Episodic Other nervous system disorders (11 sources) Unsteady when standing; Translations: [Unsteadiness on feet] 02-09-2025 Episodic Other non-traumatic joint disorders (2 sources) Arthritis of right knee 01-10-2025 Chronic Other non-traumatic joint disorders (3 sources) Shoulder joint pain; Translations: [Pain in right shoulder] Episodic Other non-traumatic joint disorders (2 sources) Pain in right knee; Translations: [Pain in joint, lower leg] 01-10-2025 Episodic Other nutritional; endocrine; and metabolic disorders (6 sources) Overweight in adulthood with body mass index of 25 or more but less than 30; Translations: [Overweight] Onset: 4 12-09-2024 Episodic Other nutritional; endocrine; and metabolic disorders (3 sources) Loss of appetite; Translations: [Anorexia] Episodic Other nutritional; endocrine; and metabolic disorders (3 sources) Overweight; Translations: [Overweight] Episodic Other screening for suspected conditions (not mental disorders or infectious disease) (20 sources) Encounter for screening mammogram for malignant neoplasm of breast; Translations: [Encounter for screening for malignant neoplasm of cervix] Onset: 2 Episodic Other skin disorders (5 sources) Dystrophia unguium; Translations: [Nail dystrophy] 06-27-2024 Episodic Peripheral and visceral atherosclerosis (20 sources) Peripheral vascular disease; Translations: [Peripheral vascular disease, unspecified] Chronic Prolapse of female genital organs (15 sources) Cystocele; Translations: [Cystocele, unspecified] Onset: 4 Chronic Rehabilitation care; fitting of prostheses; and adjustment of devices (6 sources) Patient encounter status; Translations: [Encounter for fitting and adjustment of other specified devices] 05-18-2024 Chronic Residual codes; unclassified (3 sources) Preventive procedure; Translations: [Encounter for other specified prophylactic measures] Episodic Residual codes; unclassified (3 sources) Localized edema; Translations: [Localized edema] Episodic Residual codes; unclassified (9 sources) Body mass index 20-24 - normal; Translations: [Body mass index (BMI) 24.0-24.9, adult] Onset: 4 05-30-2024 Episodic Residual codes; unclassified (1 source) Pain Onset: 4 Episodic Residual codes; unclassified (1 source) Pain, unspecified; Translations: [Pain, unspecified] Onset: 4 Episodic Residual codes; unclassified (2 sources) Body mass index (BMI) 24.0-24.9, adult; Translations: [Body mass index (BMI) 24.0-24.9, adult] Onset: 5 Episodic Spondylosis; intervertebral disc disorders; other back problems (20 sources) Degeneration of lumbosacral intervertebral disc; Translations: [Other intervertebral disc degeneration, lumbosacral region] Onset: 9 01-16-2009 Chronic Comment on above: uses pain clinic for pain control Superficial injury; contusion (20 sources) Contusion of left chest wall; Translations: [Contusion of left front wall of thorax, initial encounter] 02-06-2025 Episodic Unclassified (2 sources) Chest pain, unspecified / R07.9(ICD-9) Onset: 7 Unclassified (1 source) Athscl heart disease of [place] coronary artery w/o ang pctrs / I25.10(ICD-9) [...] Unclassified (2 sources) Drug therapy finding 03-01-2024 Unclassified (1 source) Patient encounter status 05-30-2024 Unclassified (2 sources) Low back pain, unspecified; Translations: [Low back pain, unspecified] Onset: 4 Unclassified (10 sources) A [facility] screening has identified you as FRAIL or AT RISK FOR FRAILTY. This puts you at a higher risk for infection, illness, falls, and other injuries. Here are four ways to help you reduce your risk of frailty: 1. IDENTIFY EARLY SIGNS OF FRAILTY Discuss contributing factors and concerns with your doctor 2. BE ACTIVE Walking and light strengthening exercises will help reduce weakness 3. EAT WELL Aim for three healthy meals a day that are high in protein 4. THINK POSITIVE Keep your mind active by being sociable and continuing to learn References: Stay Strong: Four Ways to Beat the Frailty Risk [email or web address]-ways-[email or web address]- luvj-egn-jll ilty-risk 11-28-2024 Unclassified (1 source) Acute coronary microvascular dysfunction (Multi); Translations: [Acute coronary microvascular dysfunction (Multi)] Onset: 5 Unclassified (3 sources) The office is currently closed. Please call the office for a follow-up appointment. Unclassified (3 sources) You have been scheduled for a follow up appointment for the following date and time, please call to reschedule if needed. Viral infection (8 sources) Disease caused by 2019-nCoV; Translations: [COVID-19] 04-12-2024 Episodic Past or Other Problems Problem Classification Problem Date Documented Da te Episodic/Chronic Chronic kidney disease (5 sources) Chronic kidney disease Coronary atherosclerosis and other heart disease (4 sources) Presence of coronary angioplasty implant and graft; Translations: [Percutaneous transluminal coronary angioplasty status] Onset: 06-15-2023 01-14-2023 Episodic Esophageal disorders (2 sources) Esophageal disorders Genitourinary symptoms and ill-defined conditions (20 sources) Dysuria; Translations: [Dysuria] Onset: 11-30-2023 11-30-2023 Episodic Heart valve disorders (20 sources) Systolic murmur; Translations: [Undiagnosed cardiac murmurs] Onset: 05-19-2023 Resolved: 05-30-2024 05-19-2023 Episodic Malaise and fatigue (20 sources) Fatigue; Translations: [Other malaise and fatigue] Onset: 11-30-2023 10-20-2023 Episodic Occlusion or stenosis of precerebral arteries (6 sources) Occlusion and stenosis of multiple and bilateral cerebral arteries; Translations: [Occlusion and stenosis of bilateral carotid arteries] Resolved: 05-16-2021 Chronic Other bone disease and musculoskeletal deformities (20 sources) Osteopenia; Translations: [Other specified disorders of bone density and structure, unspecified site] Onset: 06-06-2016 05-21-2023 Episodic Other connective tissue disease (20 sources) Ischial bursitis ; Translations: [Other bursitis of hip, unspecified hip] Onset: 07-07-2019 10-07-2023 Episodic Other non-traumatic joint disorders (20 sources) Hip pain; Translations: [Pain in unspecified hip] Onset: 12-18-2009 12-18-2009 Episodic Other non-traumatic joint disorders (20 sources) Pain of right wrist; Translations: [Pain in right wrist] Onset: 08-28-2023 08-28-2023 Episodic Other nutritional; endocrine; and metabolic disorders (12 sources) Abnormal weight loss; Translations: [Abnormal weight loss] Resolved: 05-05-2022 Episodic Other nutritional; endocrine; and metabolic disorders (2 sources) Body mass index (BMI) 25.0-25.9, adult; Translations: [Body mass index (BMI) 25.0-25.9, adult] Onset: 12-09-2024 Episodic Residual codes; unclassified (1 source) Asymptomatic menopausal state; Translations: [ASYMPTOMATIC MENOPAUSAL STATE] Onset: 05-25-2022 Episodic Residual codes; unclassified (3 sources) Postmenopausal state; Translations: [Asymptomatic menopausal state] Onset: 2022 Episodic Residual codes; unclassified (12 sources) Never smoked tobacco; Translations: [Other specified health status] Onset: 01-12-2024 01-12-2024 Episodic Residual codes; unclassified (2 sources) Other specified health status; Translations: [Other specified health status] Onset: 01-12-2024 Episodic Spondylosis; intervertebral disc disorders; other back problems (20 sources) Thoracic and lumbosacral neuritis; Translations: [Thoracic or lumbosacral neuritis or radiculitis, unspecified] Onset: 01-16-2009 01-16-2009 Episodic Unclassified (4 sources) Never smoked tobacco; Translations: [Never a smoker] Unclassified (1 source) Polyuria R35.89 Unclassified (19 sources) Onset: 06-15-2023 Resolved: 01-26-2025 06-15-2023 Unclassified (1 source) Acute right-sided low back pain without sciatica M54.50 Unclassified (1 source) CAD, needs angioplasty Onset: 11-28-2024 Unclassified (1 source) Acute coronary microvascular dysfunction (Multi); Translations: [Acute coronary microvascular dysfunction (Multi)] Onset: 11-29-2024 Results Test Name Value Interpretation Reference Range Facility Estimated glomerular filtrat ion rate (GFR) non- AmericanOrdered By: Ivan Barreto on 02-13-2025 GFR/1.73 sq M.predicted among non-blacks MDRD (S/P/Bld) [Vol rate/Area] mL/min/{1.73_m2} >=60 mL/min/1.73m 2 [facility] - Chemistry and C hemistry - challengeOrdered By: Ivan Barreto on 02-13-2025 Calcium [Mass/Vol] 9.0 mg/dL 8.5-10.1 [facility] Chloride [Moles/Vol] 103 mmol/L 98-107 [facility] CO2 [Moles/Vol] 28.1 mmol/L 21.0-32.0 [facility] Creatinine [Mass/Vol] 0.85 mg/dL 0.55-1.02 [facility] GFR/1.73 sq M.predicted MDRD (S/P/Bld) [Vol rate/Area] mL/min/{1.73_m2} >=60 mL/min/1.73m 2 [facility] Glucose [Mass/Vol] 99 mg/dL 74-106 [facility] Potassium [Moles/Vol] 4.4 mmol/L 3.5-5.1 [facility] Sodium [Moles/Vol] 141 mmol/L 136-145 [facility] Urea nitrogen [Mass/Vol] 17.0 mg/dL 7.0-18.0 [facility] Urea nitrogen/Creatinine [Mass ratio] 20.0 mg/mg [facility] Serum or plasma anion gap de terminationOrdered By: Ivan Barreto on 02-13-2025 Anion gap [Moles/Vol] 14.3 mmol/L [facility] A1C with Estimated Average G kylah 02-10-2025 Glucose [Mass/Vol] 117 mg/dL Normal [facility] Comment on above: Result Comment: PERF ORMED BY: [place] [address] PATHOLOGIST YARN TWISTER NEHA AMES M.D. Performed By: #### C MP MG, CBC #### [facility] [address] [place] [address] [place] Alanine aminotransferase [En zymatic activity/volume] in Serum or PlasmaOrdered By: Louis Oliveira on 02-10-2025 ALT [Catalytic activity/Vol] 14 U/L Normal 7-52 [facility] Comment on above: Performed By: #### C MP MG, CBC #### [facility] [address] [place] [address] [place] Albumin [Mass/volume] in Ser um or Plasma by Bromocresol green (BCG) dye binding methoOrdered By: Louis Oliveira on 02-10-2025 Albumin BCG dye [Mass/Vol] 3.9 g/dL 3.5-5.7 [facility] Alkaline phosphatase [Enzyma tic activity/volume] in Serum or PlasmaOrdered By: Louis Oliveira on 02-10-2025 ALP [Catalytic activity/Vol] 33 U/L Low 34-104 [facility] Comment on above: Performed By: #### C MP, MG, CBC #### [facility] [address] [place] [address] [place] Appearance of UrineOrdered B y: Louis Oliveira on 07-11-2025 Appearance (U) Clear Normal Clear [facility] Comment on above: Order Comment: Name Collection Type:: Clean-Voided Midstream Performed By: #### C K, HS TROP #### [facility] [address] [place] [address] Aspartate aminotransferase [ Enzymatic activity/volume] in Serum or PlasmaOrdered By: Louis Oliveira on 02-10-2025 AST [Catalytic activity/Vol] 20 U/L Normal 13-39 [facility] Comment on above: Performed By: #### C MP, MG, CBC #### [facility] [address] [place] [address] Bacteria [Presence] in Urine by AutomatedOrdered By: Louis Oliveira on 02-10-2025 Bacteria Auto Ql (U) Rare [HPF] None Seen [facility] Basic Metabolic Panelon 01-31 Anion gap [Moles/Vol] 12.2 mmol/L Normal 6.0-15.0 [facility] Comment on above: Performed By: #### C MP, MG, CBC #### [facility] [address] [place] [address] [place] Calcium [Mass/Vol] 9.4 mg/dL Normal 8.6-10.3 [facility] Comment on above: Performed By: #### C MP, MG, CBC #### [place] [address] [place] CO2 [Moles/Vol] 27.4 mmol/L Normal 21.0-31.0 [facility] Comment on above: Performed By: #### C MP, MG, CBC #### [facility] [address] [place] [address] [place] Creatinine [Mass/Vol] 0.74 mg/dL Normal 0.60-1.20 [facility] Comment on above: Performed By: #### C MP, MG, CBC #### [facility] [address] [place] [address] [place] Creatinine Clr Calc Pharmacy 46.26 Normal [facility] Comment on above: Result Comment: PERF ORMED BY: [place] [address] PATHOLOGIST YARN TWISTER NEHA AMES M.D. Performed By: #### C MP, MG, CBC #### [address] Performed By: #### C BC, LIPASE, CMP #### [address] GFR/1.73 sq M.predicted MDRD (S/P/Bld) [Vol rate/Area] mL/min/{1.73_m2} Normal [facility] Comment on above: Performed By: #### C MP, MG, CBC #### [address] Performed By: #### C BC, LIPASE, CMP #### [address] Glucose [Mass/Vol] 119 mg/dL High 70-100 [facility] Comment on above: Result Comment: [place] Glucose Reference Range is dependent on time and content of last meal. Glucose of more than 200 mg/dL in a nonstressed, ambulatory subject supports the diagnosis of Diabetes Mellitus. ADA recommended reference range Performed By: #### C MP, MG, CBC #### [address] Potassium [Moles/Vol] 3.6 mmol/L Normal 3.5-5.1 [facility] Comment on above: Performed By: #### C MP, MG, CBC #### [address] Sodium [Moles/Vol] 127 mmol/L Low 136-145 [facility] Comment on above: Performed By: #### C MP, MG, CBC #### [address] Basophils [#/volume] in Bloo d by Automated countOrdered By: Louis Oliveira on 02-10-2025 Basophils (Bld) [#/Vol] 0.0 10*3/uL Normal 0.0-0.2 [facility] Comment on above: Result Comment: PERF ORMED BY: [place] [address] PATHOLOGIST YARN TWISTER NEHA AMES M.D. Performed By: #### C MP, MG, CBC #### [address] Basophils/100 leukocytes in Blood by Automated countOrdered By: Louis Oliveira on 02-10-2025 Basophils/100 WBC (Bld) 0.2 % Normal . [facility] Comment on above: Performed By: #### C MP, MG, CBC #### [address] Bilirubin Test strip Ql (U)O rdered By: Louis Oliveira on 02-10-2025 Bilirubin Ql (U) Negative Negative [facility] Bilirubin.total [Mass/volume ] in Serum or PlasmaOrdered By: Louis Oliveira on 02-10-2025 Bilirubin [Mass/Vol] 0.8 mg/dL Normal 0.3-1.0 [facility] Comment on above: Performed By: #### C MP, MG, CBC #### [address] Blood estimated average gluc ose determination by estimation from glycated hemoglobinOrdered By: Rashawn Mahmood on 02-10-2025 Average glucose Estimated from glycated hemoglobin (Bld) [Mass/Vol] 117 mg/dL [facility] Calcium [Mass/volume] in Ser um or PlasmaOrdered By: Louis Oliveira on 02-10-2025 Calcium [Mass/Vol] 8.9 mg/dL Normal 8.6-10.3 [facility] Comment on above: Performed By: #### C MP, MG, CBC #### [facility] [address] [place] [address] Carbon dioxide, total [Moles /volume] in Serum or PlasmaOrdered By: Louis Oliveira on 02-10-2025 CO2 [Moles/Vol] 25.4 mmol/L Normal 21.0-31.0 [facility] Comment on above: Performed By: #### C MP, MG, CBC #### [address] Chloride [Moles/volume] in S katiana or PlasmaOrdered By: Louis Oliveira on 02-10-2025 Chloride [Moles/Vol] 94 mmol/L Low 98-107 [facility] Comment on above: Performed By: #### C MP, MG, CBC #### [address] Chloride [Moles/volume] in S katiana or PlasmaOrdered By: Angie Davidson on 02-10-2025 Chloride [Moles/Vol] 91 mmol/L Low 98-107 [facility] Comment on above: Performed By: #### C MP, MG, CBC #### [address] Performed By: #### C BC, LIPASE, CMP #### [address] Color of Urine by AutoOrdere d By: Louis Oliveira on 02-10-2025 Color (U) Yellow Normal Yellow [facility] Comment on above: Order Comment: Name Collection Type:: Clean-Voided Midstream Performed By: #### C K, HS TROP #### [address] Complete Blood Count Auto Di ffon 02-10-2025 Mean Corpuscular HGB Conc 35.3 g/dL High 32.0-35.0 [facility] Comment on above: Performed By: #### C MP, MG, CBC #### [address] NRBC% 0.2 /100{WBC} Normal 0-0.5 [facility] Comment on above: Performed By: #### C MP, MG, CBC #### [address] White Blood Count 8.7 [CFU]/mL Normal 3.8-11.6 [facility] Comment on above: Performed By: #### C MP, MG, CBC #### [address] [place] [address] [place] Comprehensive Metabolic Pane gabriel 02-10-2025 Albumin [Mass/Vol] 3.9 g/dL Normal 3.5-5.7 [facility] Comment on above: Performed By: #### C MP, MG, CBC #### [address] Creatinine Clr Calc Pharmacy 46.26 Normal [facility] Comment on above: Performed By: #### C MP, MG, CBC #### [place] [address] [place] GFR/1.73 sq M.predicted MDRD (S/P/Bld) [Vol rate/Area] mL/min/{1.73_m2} Normal [facility] Comment on above: Performed By: #### C MP, MG, CBC #### [address] Sodium [Moles/Vol] 129 mmol/L Low 136-145 [facility] Comment on above: Performed By: #### C MP, MG, CBC #### [address] Creatinine [Mass/volume] in Serum or PlasmaOrdered By: Louis Oliveira on 02-10-2025 Creatinine [Mass/Vol] 0.68 mg/dL Normal 0.60-1.20 [facility] Comment on above: Performed By: #### C MP, MG, CBC #### [place] [address] [place] Dipstick and Microscopicon 0 02-10-2025 Bacteria,Urine Rare Normal None Seen [facility] Comment on above: Order Comment: Name Collection Type:: Clean-Voided Midstream Performed By: #### C K, HS TROP #### [place] [address] [place] Bilirubin,Urine Negative Normal Negative The [facility] Comment on above: Order Comment: Name Collection Type:: Clean-Voided Midstream Performed By: #### C K, HS TROP #### [address] [address] [place] Glucose Ql (U) Normal Normal Normal [facility] Comment on above: Order Comment: Name Collection Type:: Clean-Voided Midstream Performed By: #### C K, HS TROP #### [place] [address] [place] Hyaline Casts,Urine None Normal 0-8 [facility] Comment on above: Order Comment: Name Collection Type:: Clean-Voided Midstream Performed By: #### C K, HS TROP #### [place] [address] [place] Mucus,Urine Rare Normal [facility] Comment on above: Order Comment: Name Collection Type:: Clean-Voided Midstream Result Comment: PERF ORMED BY: [place] [address] PATHOLOGIST YARN TWISTER NEHA AMES M.D. Performed By: #### C K, HS TROP #### [address] Nitrite,Urine Negative Normal Negative [facility] Comment on above: Order Comment: Name Collection Type:: Clean-Voided Midstream Performed By: #### C K, HS TROP #### [place] [address] [place] Occult Blood,Urine 2+ Normal Negative [facility] Comment on above: Order Comment: Name Collection Type:: Clean-Voided Midstream Result Comment: PERF ORMED BY: [place] [address] PATHOLOGIST YARN TWISTER NEHA AMES M.D. Performed By: #### C K, HS TROP #### [place] [address] [place] RBC,Urine 5-9 Normal 0-4 [facility] Comment on above: Order Comment: Name Collection Type:: Clean-Voided Midstream Performed By: #### C K, HS TROP #### [place] [address] [place] Specificy [place],Urine >1.050 High 1.001-1.030 [facility] Comment on above: Order Comment: Name Collection Type:: Clean-Voided Midstream Performed By: #### C K, HS TROP #### [address] Squamous Epithelial Cell,Urine 1-2 Normal 0-2 [facility] Comment on above: Order Comment: Name Collection Type:: Clean-Voided Midstream Performed By: #### C K, HS TROP #### [address] Urobilinogen,Urine Normal Normal Normal [facility] Comment on above: Order Comment: Name Collection Type:: Clean-Voided Midstream Performed By: #### C K, HS TROP #### [address] WBC,Urine 20-49 Normal 0-4 [facility] Comment on above: Order Comment: Name Collection Type:: Clean-Voided Midstream Performed By: #### C K, HS TROP #### [place] [address] [place] Eosinophils [#/volume] in Bl ood by Automated countOrdered By: Louis Oliveira on 02-10-2025 Eosinophils (Bld) [#/Vol] 0.0 10*3/uL Normal 0.0-0.45 [facility] Comment on above: Performed By: #### C MP, MG, CBC #### [place] [address] [place] Eosinophils/100 leukocytes i n Blood by Automated countOrdered By: Louis Oliveira on 02-10-2025 Eosinophils/100 WBC (Bld) 0.4 % Normal . [facility] Comment on above: Performed By: #### C MP, MG, CBC #### [place] [address] [place] Epithelial cells.squamous [# /area] in Urine sediment by Automated countOrdered By: Louis Oliveira on 02-10-2025 Epithelial cells.squamous Auto (Urine sed) [#/Area] 1-2 [HPF] 0-2 [facility] Erythrocyte distribution wid th [Ratio] by Automated countOrdered By: Louis Oliveira on 02-10-2025 Erythrocyte distribution width (RBC) [Ratio] 13.3 % Normal 11.9-15.3 [facility] Comment on above: Performed By: #### C MP, MG, CBC #### [facility] [address] Erythrocytes [#/area] in Uri ne sediment by Automated countOrdered By: Louis Oliveira on 02-10-2025 RBC Auto (Urine sed) [#/Area] 5-9 [HPF] High 0-4 [facility] Erythrocytes [#/volume] in B lood by Automated countOrdered By: Louis Oliveira on 02-10-2025 RBC (Bld) [#/Vol] 3.95 10*6/uL Normal 3.60-5.00 [facility] Comment on above: Performed By: #### C MP, MG, CBC #### [facility] [address] [place] [address] [place] Glucose [Mass/volume] in Ser um or PlasmaOrdered By: Louis Oliveira on 02-10-2025 Glucose [Mass/Vol] 95 mg/dL Normal 70-100 [facility] Comment on above: ADA recommended refe rence rangeRandom Glucose Reference Range is dependent on time and content of last meal. Glucose of more than 200 mg/dL in a nonstressed, ambulatory subject supports the diagnosis of Diabetes Mellitus. Result Comment: [place] om Glucose Reference Range is dependent on time and content of last meal. Glucose of more than 200 mg/dL in a nonstressed, ambulatory subject supports the diagnosis of Diabetes Mellitus. ADA recommended reference range Performed By: #### C MP, MG, CBC #### [facility] [address] [place] [address] [place] Glucose [Mass/volume] in Uri ne by Test stripOrdered By: Louis Oliveira on 02-10-2025 Glucose Test strip (U) [Mass/Vol] Normal mg/dL Normal [facility] Hematocrit [Volume Fraction] of Blood by Automated countOrdered By: Louis Oliveira on 02-10-2025 Hematocrit (Bld) [Volume fraction] 36.5 % Normal 34.0-46.4 [facility] Comment on above: Performed By: #### C MP, MG, CBC #### [facility] [address] Hemoglobin A1c/Hemoglobin.to deacon in BloodOrdered By: Rashawn Mahmood on 02-10-2025 HbA1c (Bld) [Mass fraction] 5.7 % High 4.3-5.6 [facility] Comment on above: Increased risk for d iabetes: 5.7 - 6.4diabetes: >6.4glycemic control for adults with diabetes: <7.0 Result Comment: Incr eased risk for diabetes: 5.7 - 6.4 diabetes: >6.4 glycemic control for adults with diabetes: <7.0 Performed By: #### C MP, MG, CBC #### [address] Hemoglobin Test strip Ql (U) Ordered By: Louis Oliveira on 02-10-2025 Hemoglobin Ql (U) 2+ High Negative [facility] Hemoglobin [Mass/volume] in BloodOrdered By: Louis Oliveira on 02-10-2025 Hemoglobin (Bld) [Mass/Vol] 12.9 g/dL Normal 11.8-15.4 [facility] Comment on above: Performed By: #### C MP, MG, CBC #### [address] Hyaline casts [#/area] in Ur ine sediment by Automated countOrdered By: Louis Oliveira on 02-10-2025 Hyaline casts Auto (Urine sed) [#/Area] None [LPF] 0-8 [facility] Immunofixation,Serumon 02-10 Immunofixation, Serum Comment Normal . [facility] Comment on above: Result Comment: No m onoclonality detected. Performed By: #### C MP, MG, CBC #### [facility] [address] Immunoglobulin A, Serum 150 mg/dL Normal 64-422 [facility] Comment on above: Performed By: #### C MP, MG, CBC #### [facility] [address] Immunoglobulin G 536 mg/dL Normal 586-1602 [facility] Comment on above: Performed By: #### C MP, MG, CBC #### [facility] [address] Immunoglobulin M, Serum 68 mg/dL Normal 26-217 [facility] Comment on above: Result Comment: Perf ormed at: CB - [facility] [address] [id number] [employer] Worker: Selwyn Daniel PhD, Phone: [phone] Performed By: #### C MP, MG, CBC #### [address] Ketones [Presence] in Urine by Test stripOrdered By: Louis Oliveira on 02-10-2025 Ketones Ql (U) 2+ Normal Negative [facility] Comment on above: Order Comment: Name Collection Type:: Clean-Voided Midstream Performed By: #### C K, HS TROP #### [place] [address] [place] Leukocyte esterase [Presence ] in Urine by Test stripOrdered By: Louis Oliveira on 02-10-2025 Leukocyte esterase Test strip Ql (U) 2+ Normal Negative [facility] Comment on above: Order Comment: Name Collection Type:: Clean-Voided Midstream Performed By: #### C K, HS TROP #### [facility] [address] [place] [address] [place] Leukocytes [#/area] in Urine sediment by Automated countOrdered By: Louis Oliveira on 02-10-2025 WBC Auto (Urine sed) [#/Area] 20-49 [HPF] High 0-4 [facility] Leukocytes [#/volume] correc law for nucleated erythrocytes in Blood by Automated counOrdered By: Louis Oliveira on 02-10-2025 WBC corrected for nucl RBC Auto (Bld) [#/Vol] 8.7 10*3/uL 3.8-11.6 [facility] Leukocytes [#/volume] in Blo od by Automated countOrdered By: Louis Oliveira on 02-10-2025 WBC (Bld) [#/Vol] 8.7 10*3/uL Normal 3.8-11.6 [facility] Comment on above: Performed By: #### C MP, MG, CBC #### [facility] [address] Lymphocytes [#/volume] in Bl ood by Automated countOrdered By: Louis Oliveira on 02-10-2025 Lymphocytes (Bld) [#/Vol] 1.9 10*3/uL Normal 1.00-4.8 [facility] Comment on above: Performed By: #### C MP, MG, CBC #### [facility] [address] Lymphocytes/100 leukocytes i n Blood by Automated countOrdered By: Louis Oliveira on 02-10-2025 Lymphocytes/100 WBC (Bld) 21.8 % Normal . [facility] Comment on above: Performed By: #### C MP, MG, CBC #### [facility] [address] MCH [Entitic mass] by Automa law countOrdered By: Louis Oliveira on 02-10-2025 MCH (RBC) [Entitic mass] 32.6 pg Normal 24.7-34.3 [facility] Comment on above: Performed By: #### C MP, MG, CBC #### [facility] [address] MCHC Auto (RBC) [Mass/Vol]Or dered By: Louis Oliveira on 02-10-2025 MCHC (RBC) [Mass/Vol] 35.3 g/dL High 32.0-35.0 [facility] MCV [Entitic volume] by Auto mated countOrdered By: Louis Oliveira on 02-10-2025 MCV (RBC) [Entitic vol] 92.2 fL Normal 80-100 [facility] Comment on above: Performed By: #### C MP, MG, CBC #### [facility] [address] [place] [address] Magnesium [Mass/volume] in S katiana or PlasmaOrdered By: Louis Oliveira on 02-10-2025 Magnesium [Mass/Vol] 1.9 mg/dL Normal 1.9-2.7 [facility] Comment on above: Result Comment: PERF ORMED BY: [address] [place] [address] PATHOLOGIST YARN TWISTER NEHA AMES M.D. Performed By: #### C MP, MG, CBC #### [facility] [address] [place] [address] [place] Monocytes [#/volume] in Bloo d by Automated countOrdered By: Louis Oliveira on 02-10-2025 Monocytes (Bld) [#/Vol] 0.9 10*3/uL High 0.0-0.8 [facility] Comment on above: Performed By: #### C MP, MG, CBC #### [facility] [address] [place] [address] [place] Monocytes/100 leukocytes in Blood by Automated countOrdered By: Louis Oliveira on 02-10-2025 Monocytes/100 WBC (Bld) 10.3 % Normal . [facility] Comment on above: Performed By: #### C MP, MG, CBC #### [facility] [address] [place] [address] Mucus [Presence] in Urine by AutomatedOrdered By: Louis Oliveira on 02-10-2025 Mucus Auto Ql (U) Rare [LPF] [facility] Neutrophils [#/volume] in Bl ood by Automated countOrdered By: Louis Oliveira on 02-10-2025 Neutrophils (Bld) [#/Vol] 5.8 10*3/uL Normal 1.8-7.7 [facility] Comment on above: Performed By: #### C MP, MG, CBC #### [facility] [address] [place] [address] [place] Neutrophils/100 leukocytes i n Blood by Automated countOrdered By: Louis Oliveira on 07-11-2025 Neutrophils/100 WBC (Bld) 67.3 % Normal . [facility] Comment on above: Performed By: #### C MP, MG, CBC #### [facility] [address] Nitrite Test strip Ql (U)Ord ered By: Louis Oliveira on 02-10-2025 Nitrite Ql (U) Negative Negative [facility] No Panel InformationOrdered By: Rashawn Mahmood on 02-10-2025 Protein Electrophoresis M-Jean Comment: g/dL Not Observed [facility] Comment on above: SPE shows asymmetric al gamma. Suggest serum REE and free lightchain analysis for further evaluation. Protein Electrophoresis Note Comment . [facility] Comment on above: Protein electrophore sis scan will follow via computer,mail, or scrap worker delivery.Performed at: [facility] [id number] Director: Selwyn Daniel PhD, Phone: [phone] No Panel InformationOrdered By: Louis Oliveira on 02-10-2025 Estimated GFR (CKD-EPI) > 60.0 mL/Min [facility] Creatinine Clearance (Chem 46.26 [facility] Urine Osmolality 697 mosm 250-900 [facility] Nucleated erythrocytes [Pres ence] in Blood by Automated countOrdered By: Louis Oliveira on 02-10-2025 Nucleated RBC Auto Ql (Bld) 0.2 /100{WBC} 0-0.5 [facility] Osmolality, Urineon 02-11-20 25 Osmolality, Urine 697 mosm Normal 250-900 [facility] Comment on above: Result Comment: PERF ORMED BY: [address] [place] [address] PATHOLOGIST YARN TWISTER NEHA AMES M.D. Performed By: #### C K, HS TROP #### [facility] [address] [place] [address] Platelet mean volume [Entiti c volume] in Blood by Automated countOrdered By: Louis Oliveira on 02-10-2025 Platelet mean volume (Bld) [Entitic vol] 7.8 fL Normal 6.3-10.7 [facility] Comment on above: Performed By: #### C MP, MG, CBC #### [address] Platelets [#/volume] in Bloo d by Automated countOrdered By: Louis Oliveira on 02-10-2025 Platelets (Bld) [#/Vol] 220 10*3/uL Normal 150-450 [facility] Comment on above: Performed By: #### C MP, MG, CBC #### [address] Potassium [Moles/volume] in Serum or PlasmaOrdered By: Louis Oliveira on 02-10-2025 Potassium [Moles/Vol] 3.4 mmol/L Low 3.5-5.1 [facility] Comment on above: Performed By: #### C MP, MG, CBC #### [place] [address] [place] Protein Electrophoresis, Ser umon 02-10-2025 Ytwhj-5-Gscuskhn 0.2 g/dL Normal 0.0-0.4 [facility] Comment on above: Performed By: #### C MP, MG, CBC #### [address] Eygps-2-Xovkarmk 0.7 g/dL Normal 0.4-1.0 [facility] Comment on above: Performed By: #### C MP, MG, CBC #### [address] Beta Globulin 0.9 g/dL Normal 0.7-1.3 [facility] Comment on above: Performed By: #### C MP, MG, CBC #### [address] Gamma Globulin 0.6 g/dL Normal 0.4-1.8 [facility] Comment on above: Performed By: #### C MP, MG, CBC #### [facility] [address] [place] [address] [place] M-Jean Comment: Normal Not Observed [facility] Comment on above: Result Comment: SPE shows asymmetrical gamma. Suggest serum REE and free light chain analysis for further evaluation. Performed By: #### C MP, MG, CBC #### [address] SPE-Note Comment Normal . [facility] Comment on above: Result Comment: Prot ein electrophoresis scan will follow via computer, mail, or scrap worker delivery. Performed at: [facility] [address] [id number] [employer] Worker: Selwyn Daniel PhD, Phone: [phone] PERFORMED BY: [place] [address] PATHOLOGIST YARN TWISTER NEHA AMES M.D. Performed By: #### C MP, MG, CBC #### [address] Protein [Mass/volume] in Ser um or PlasmaOrdered By: Louis Oliveira on 02-10-2025 Protein [Mass/Vol] 6.2 g/dL Low 6.4-8.9 [facility] Comment on above: Performed By: #### C MP, MG, CBC #### [address] Protein [Mass/volume] in Uri ne by Test stripOrdered By: Louis Oliveira on 02-10-2025 Protein (U) [Mass/Vol] 30 mg/dL Normal Negative [facility] Comment on above: Order Comment: Name Collection Type:: Clean-Voided Midstream Performed By: #### C K, HS TROP #### [address] Serum globulin measurement ( mass/volume)Ordered By: Rashawn Mahmood on 02-10-2025 Globulin (S) [Mass/Vol] 2.4 g/dL Normal 2.2-3.9 [facility] Comment on above: Performed By: #### C MP, MG, CBC #### [address] Serum globulin measurement b y calculation (mass/volume)Ordered By: Louis Oliveira on 02-10-2025 Globulin (S) [Mass/Vol] 2.3 g/dL Normal [facility] Comment on above: Performed By: #### C MP, MG, CBC #### [facility] [address] [place] [address] Serum or plasma IgA measurem ent (mass/volume)Ordered By: Rashawn Mahmood on 02-10-2025 IgA [Mass/Vol] 150 mg/dL 64-422 [facility] Serum or plasma IgG measurem ent (mass/volume)Ordered By: Rashawn Mahmood on 02-10-2025 IgG [Mass/Vol] 536 mg/dL Low 586-1602 [facility] Serum or plasma IgM measurem ent (mass/volume)Ordered By: Rashawn Mahmood on 02-10-2025 IgM [Mass/Vol] 68 mg/dL 26-217 [facility] Comment on above: Performed at: [address] [id number] Director: Selwyn Daniel PhD, Phone: [phone] Serum or plasma albumin shalonda urement (mass/volume)Ordered By: Rashawn Mahmood on 02-10-2025 Albumin [Mass/Vol] 3.2 g/dL Normal 2.9-4.4 [facility] Comment on above: Performed By: #### C MP, MG, CBC #### [facility] [address] [place] [address] Serum or plasma albumin/glob ulin mass ratioOrdered By: Rashawn Mahmood on 02-10-2025 Albumin/Globulin [Mass ratio] 1.3 {ratio} Normal 0.7-1.7 [facility] Comment on above: Performed By: #### C MP, MG, CBC #### [facility] [address] [place] [address] Serum or plasma albumin/glob ulin mass ratioOrdered By: Louis Oliveira on 02-10-2025 Albumin/Globulin [Mass ratio] 1.7 {ratio} Normal [facility] Comment on above: Performed By: #### C MP, MG, CBC #### [facility] [address] Serum or plasma alpha 1 glob ulin measurement by electrophoresis (mass/volume)Ordered By: Rashawn Mahmood on 02-10-2025 Alpha 1 globulin Elph [Mass/Vol] 0.2 g/dL 0.0-0.4 [facility] Serum or plasma alpha 2 glob ulin measurement by electrophoresis (mass/volume)Ordered By: Rashawn Mahmood on 02-10-2025 Alpha 2 globulin Elph [Mass/Vol] 0.7 g/dL 0.4-1.0 [facility] Serum or plasma anion gap de terminationOrdered By: Louis Oliveira on 02-10-2025 Anion gap [Moles/Vol] 13.0 mmol/L Normal 6.0-15.0 [facility] Comment on above: Performed By: #### C MP, MG, CBC #### [facility] [address] [place] [address] Serum or plasma beta globuli n measurement by electrophoresis (mass/volume)Ordered By: Rashawn Mahmood on 02-10-2025 Beta globulin Elph [Mass/Vol] 0.9 g/dL 0.7-1.3 [facility] Serum or plasma gamma globul in measurement by electrophoresis (mass/volume)Ordered By: Rashawn Mahmood on 02-10-2025 Gamma globulin Elph [Mass/Vol] 0.6 g/dL 0.4-1.8 [facility] Serum total protein measurem entOrdered By: Rashawn Mahmood on 02-10-2025 Protein [Mass/Vol] 5.6 g/dL Normal 6.0-8.5 [facility] Comment on above: Performed By: #### C MP, MG, CBC #### [facility] [address] Sodium [Moles/volume] in Ser um or PlasmaOrdered By: Louis Oliveira on 02-10-2025 Sodium [Moles/Vol] 131 mmol/L Low 136-145 [facility] Comment on above: Result Comment: PERF ORMED BY: [address] [place] [address] PATHOLOGIST YARN TWISTER NEHA AMES M.D. Performed By: #### C MP, MG, CBC #### [facility] [address] [place] [address] Sodium [Moles/volume] in Uri neOrdered By: Louis Oliveira on 02-10-2025 Sodium (U) [Moles/Vol] 50 mmol/L Normal [facility] Comment on above: No reference range e stablished Result Comment: No r eference range established PERFORMED BY: [place] [address] PATHOLOGIST YARN TWISTER NEHA AMES M.D. Performed By: #### C K, HS TROP #### [address] Specific gravity Test strip (U) [Rel density]Ordered By: Louis Oliveira on 02-10-2025 Specific gravity (U) [Rel density] >1.050 High 1.001-1.030 [facility] Troponin I High Sensitivityo n 02-10-2025 Troponin I High Sensitivity 17 High 0-15 [facility] Comment on above: Result Comment: The Troponin units of report have been changed to meet the Chest Pain Accreditation requirement, element EC5.M1l2. Troponin units are changed from pg/ml to ng/L. Also, the decimal is removed and results are in whole numbers. PERFORMED BY: [place] [address] PATHOLOGIST YARN TWISTER NEHA AMES M.D. Performed By: #### C K, HS TROP #### [address] Troponin I.cardiac [Mass/vol ume] in Serum or Plasma by Detection limit <= 0.01 ng/mLOrdered By: Angie Davidson on 02-10-2025 Troponin I.cardiac DL <= 0.01 ng/mL [Mass/Vol] 17 ng/L High 0-15 [facility] Comment on above: The Troponin units o f report have been changed to meet the Chest Pain Accreditation requirement, element EC5.M1l2. Troponin units are changed from pg/ml to ng/L. Also, the decimal is removed and results are in whole numbers. Urea nitrogen [Mass/volume] in Serum or PlasmaOrdered By: Louis Oliveira on 02-10-2025 Urea nitrogen [Mass/Vol] 14 mg/dL Normal 02-24 [facility] Comment on above: Performed By: #### C MP, MG, CBC #### [facility] [address] Urea nitrogen [Mass/volume] in Serum or PlasmaOrdered By: Angie Davidson on 02-10-2025 Urea nitrogen [Mass/Vol] 15 mg/dL Normal 02-24 [facility] Comment on above: Performed By: #### C MP, MG, CBC #### [facility] [address] Performed By: #### C BC, LIPASE, CMP #### [facility] [address] Urine Cultureon 02-10-2025 Bacteria identified Cx Nom (U) ORGANISM: Escherichia coli (O:ESCCOL) [place] Count >100,000 Aerobic LYNN Charge (NMIC56) -- SUSCEPTIBILITY - ORGANISM: O:ESCCOL ANTIBIOTIC INTERPRETATION LYNN Amikacin S <16 Amoxacillin/K Clavulanate S <8 Ampicillin S <8 Ampicillin/Sulbactam S <4 Aztreonam S <4 Cefazolin S <2 Cefepime S <2 Ceftazidime S <1 Ceftazidime/Avibactam S <4 Ceftolozane/Tazobactam S <2 Ceftriaxone S <1 Cefuroxime S <4 Ciprofloxacin S <0.25 Ertapenem S <0.5 Gentamicin S <2 Levofloxacin S <0.5 Meropenem S <1 Meropenem/Vaborbactam S <2 Nitrofurantoin S <32 Piperacillin/Tazobactam S <8 Tetracycline S <4 Tigecycline S <2 Tobramycin S <2 Trimethoprim/Sulfametho xazole S <0.5 S = SUSCEPTIBLE I = INTERMEDIATE R = RESISTANT BLANK = DATA NOT AVAILABLE, OR DRUG NOT ADVISABLE OR TESTED R* = RESISTANCE DUE TO EXTENDED SPECTRUM BETA-LACTAMASES ESBL = EXTENDED SPECTRUM BETA-LACTAMASE TFG = THYMIDINE-DEPENDENT STRAIN GREGORIO = BETA-LACTAMASE POSITIVE IB = INDUCIBLE BETA-LACTAMASE. APPEARS IN PLACE OF 'S' WITH SPECIES KNOWN TO POSSESS INDUCIBLE BETA-LACTAMASES. POTENTIALLY THEY MAY BECOME RESISTANT TO ALL B-LACTAM DRUGS. PERFORMED BY: [place] [address] PATHOLOGIST YARN TWISTER NEHA AMES M.D. Normal [facility] Comment on above: Performed By: #### C K, HS TROP #### [address] Urine cultureOrdered By: Gerard Oliveira on 02-10-2025 Bacteria identified Cx Nom (U) Escherichia coli Abnormal [facility] Urobilinogen Test strip (U) [Mass/Vol]Ordered By: Louis Oliveira on 02-10-2025 Urobilinogen (U) [Mass/Vol] Normal mg/dL Normal [facility] Vitamin B12 ser/plasOrdered By: Rashawn Mahmood on 02-10-2025 Cobalamin (Vitamin B12) [Mass/Vol] 2048 pg/mL High 180-914 [facility] Comment on above: Result Comment: PERF ORMED BY: [place] [address] PATHOLOGIST YARN TWISTER NEHA AMES M.D. Performed By: #### C MP, MG, CBC #### [place] [id number] [facility] pH of Urine by Test stripOrd ered By: Louis Oliveira on 02-10-2025 pH (U) 6.0 [pH] Normal 5.0-9.0 [facility] Comment on above: Order Comment: Name Collection Type:: Clean-Voided Midstream Performed By: #### C K, HS TROP #### [facility] [address] [place], [place] [id number] [place] Alanine aminotransferase [En zymatic activity/volume] in Serum or PlasmaOrdered By: Angie Davidson on 02-09-2025 ALT [Catalytic activity/Vol] 17 U/L Normal 7-52 [facility] Comment on above: Performed By: #### C BC, LIPASE, CMP #### [place] [address] [place] Albumin [Mass/volume] in Ser um or Plasma by Bromocresol green (BCG) dye binding methoOrdered By: Angie Davidson on 02-09-2025 Albumin BCG dye [Mass/Vol] 4.7 g/dL 3.5-5.7 [facility] Alkaline phosphatase [Enzyma tic activity/volume] in Serum or PlasmaOrdered By: Angie Davidson on 02-09-2025 ALP [Catalytic activity/Vol] 44 U/L Normal 34-104 [facility] Comment on above: Performed By: #### C BC, LIPASE, CMP #### [address] Aspartate aminotransferase [ Enzymatic activity/volume] in Serum or PlasmaOrdered By: Angie Davidson on 02-09-2025 AST [Catalytic activity/Vol] 23 U/L Normal 13-39 [facility] Comment on above: Performed By: #### C BC, LIPASE, CMP #### [place] [address] [place] Basophils [#/volume] in Bloo d by Automated countOrdered By: Angie Davidson on 02-09-2025 Basophils (Bld) [#/Vol] 0.0 10*3/uL Normal 0.0-0.2 [facility] Comment on above: Result Comment: PERF ORMED BY: [place] [address] PATHOLOGIST YARN TWISTER NEHA AMES M.D. Performed By: #### C BC, LIPASE, CMP #### [place] [address] [place] Basophils/100 leukocytes in Blood by Automated countOrdered By: Angie Davidson on 02-09-2025 Basophils/100 WBC (Bld) 0.6 % Normal . [facility] Comment on above: Performed By: #### C BC, LIPASE, CMP #### [facility] [address] Bilirubin.total [Mass/volume ] in Serum or PlasmaOrdered By: Angie Davidson on 02-09-2025 Bilirubin [Mass/Vol] 1.0 mg/dL Normal 0.3-1.0 [facility] Comment on above: Performed By: #### C BC, LIPASE, CMP #### [facility] [address] abdomen pelvis w conon CT abdomen pelvis w con [facility] [place] [address] [place] [address] CT Scan Report Signed Patient: Atiya Jha MR#: [id number] : 1940 Acct:[id number] Age/Sex: 84 / F ADM Date: 02/09/25 Loc: ER Room: Type: [facility] ER Attending Dr: Copies to: Angie Davidson MD Ordering Provider: Angie Davidson MD Date of Service: 02/09/25 CT/CT abdomen pelvis w con: llq tenderness s/p fall [address] ABDOMEN AND PELVIS WITH INTRAVENOUS CONTRAST: CLINICAL HISTORY: Left lower quadrant tenderness, fall 2 weeks ago COMPARISON: None TECHNIQUE: Spiral images were obtained through the abdomen and pelvis following the administration of intravenous contrast. This CT exam was performed using one or more following dose reduction techniques: Automated exposure control, adjustment of the mA and/or kV according to patient size, or use of iterative reconstruction technique. FINDINGS: Lung Bases: [Cardiomegaly. Hypoventilatory changes within the lung bases. Organs: [Cholelithiasis versus sludge.] Otherwise the liver, spleen, adrenals, kidneys, and pancreas are unremarkable. No hydronephrosis. GI: Mild to moderate retained stool. No bowel obstruction. Colonic diverticulosis.[ Pelvis:[Partially obscured by bilateral hip arthroplasty hardware. History. Bladder unremarkable. Uterus absent versus atrophic. No adnexal mass.] Peritoneum/Retroperiton eum:No free air or free fluid. Moderate plaque involving the nonaneurysmal aorta.[ Abd wall/Bones:Degenerative changes lower lumbar spine. Anterolisthesis L4-5 and L5-S1 identified measuring 7 mm and 7 mm respectively. Nondisplaced left 12th rib fracture posteriorly.[ CT/CT abdomen pelvis w con IMPRESSION: Nondisplaced left 12th rib fracture. Moderate stool burden. No bowel obstruction. Impression dictated by: Stephen Perez M.D. 02/09/2025 9:43 PM Dictation Location: RADIO-PC-29 Transcribed By: JAI 02/09/252142 Dictated By: Stephen Perez MD 02/09/252138 Signed By: 02/09/252142 Normal [facility] CT head/brain wo conon 02-09 CT head/brain wo [place] [address] CT Scan Report Signed Patient: Atiya hJa MR#: [id number] : 1940 Acct:[id number] Age/Sex: 84 / F ADM Date: 02/09/25 Loc: Room: [address] [place] [address] Type: ADM INOo Attending Dr: Louis Oliveira MD Copies to: Louis Oliveira MD Ordering Provider: Louis Oliveira MD Date of Service: 02/09/25 CT/CT head/brain wo con: nausea and vomiting CT BRAIN WITHOUT CONTRAST: CLINICAL HISTORY: Fall COMPARISON: None TECHNIQUE: Contiguous axial unenhanced images were obtained through the brain. This CT exam was performed using one or more following dose reduction techniques: Automated exposure control, adjustment of the mA and/or kV according to patient size, or use of iterative reconstruction technique. FINDINGS: There is no evidence of midline shift, intra or extra-axial fluid collection, hemorrhage or CT evidence of acute large vascular distribution stroke. Central involutional changes. Moderate chronic small vessel ischemic disease. Residual contrast does degrade evaluation Evaluation for detection of blood products. Visualized intraorbital contents appear unremarkable. Visualized paranasal sinuses are clear. The surrounding soft tissues are normal. CT/CT head/brain wo con IMPRESSION: NO ACUTE INTRACRANIAL ABNORMALITY. Impression dictated by: Stephen Perez M.D. 02/09/2025 11:03 PM Dictation Location: RADIO-PC-29 Transcribed By: JAI 02/09/252302 Dictated By: Stephen Perez MD 02/09/252301 Signed By: 02/09/252302 Normal [facility] Calcium [Mass/volume] in Ser um or PlasmaOrdered By: Angie Davidson on 02-09-2025 Calcium [Mass/Vol] 9.7 mg/dL Normal 8.6-10.3 [facility] Comment on above: Performed By: #### C BC, LIPASE, CMP #### [address] Carbon dioxide, total [Moles /volume] in Serum or PlasmaOrdered By: Angie Davidson on 02-09-2025 CO2 [Moles/Vol] 26.3 mmol/L Normal 21.0-31.0 [facility] Comment on above: Performed By: #### C BC, LIPASE, CMP #### [address] Complete Blood Count Auto Di ffon 02-09-2025 Mean Corpuscular HGB Conc 34.7 g/dL Normal 32.0-35.0 [facility] Comment on above: Performed By: #### C BC, LIPASE, CMP #### [address] Monocytes/100 WBC (Bld) 15.66 % Normal 0.00-20.00 [facility] Comment on above: Performed By: #### C BC, LIPASE, CMP #### [address] NRBC% 0.1 /100{WBC} Normal 0-0.5 [facility] Comment on above: Performed By: #### C BC, LIPASE, CMP #### [address] White Blood Count 6.9 [CFU]/mL Normal 3.8-11.6 [facility] Comment on above: Performed By: #### C BC, LIPASE, CMP #### [address] Comprehensive Metabolic Pane gabriel 02-09-2025 Albumin [Mass/Vol] 4.7 g/dL Normal 3.5-5.7 [facility] Comment on above: Performed By: #### C BC, LIPASE, CMP #### [facility] [address] [place] [id number] [place] Creatine kinase [Enzymatic a ctivity/volume] in Serum or PlasmaOrdered By: Louis Oliveira on 02-09-2025 CK [Catalytic activity/Vol] 61 U/L Normal 30-223 [facility] Comment on above: Performed By: #### C K, HS TROP #### [facility] [address] [place] [id number] [place] Creatinine [Mass/volume] in Serum or PlasmaOrdered By: Angie Davidson on 02-09-2025 Creatinine [Mass/Vol] 0.77 mg/dL Normal 0.60-1.20 [facility] Comment on above: Performed By: #### C BC, LIPASE, CMP #### [facility] [address] [place] [id number] [facility] ECG 12 lead ECGon 02-09-2025 ECG 12 lead ECG [facility] [place] [address] [place] [address] Electrocardiograph Report Signed Patient: Atiya Jha MR#: [id number] : 1940 Acct:[id number] Age/Sex: 84 / F ADM Date: 02/09/25 Loc: Room: [address] [place] [address] Type: ADM INOo Attending Dr: Louis Oliveira MD Ordering Provider: Angie Davidson MD Date of Service: 02/09/2505/27/1825 ECG/ECG 12 lead ECG: Nausea/Vomiting/Diarrhe a Copies to: Test Reason : Blood Pressure : 113/67 mmHG Vent. Rate : 76 BPM Atrial Rate : 76 BPM P-R Int : 174 ms QRS Dur : 86 ms QT Int : 430 ms P-R-T Axes : 72 77 81 degrees QTcB Int : 483 ms Sinus rhythm with occasional premature ventricular complexes Confirmed by Chaitanya LU DO ([id number]) on 02/09/2025 11:45:36 PM Referred By: Electronically Signed By: Chaitanya LU DO Transcribed By: MUS Signed By Chaitanya Lu DO 0 02/09/25 2345 Normal [facility] Eosinophils [#/volume] in Bl ood by Automated countOrdered By: Angie Davidson on 02-09-2025 Eosinophils (Bld) [#/Vol] 0.0 10*3/uL Normal 0.0-0.45 [facility] Comment on above: Performed By: #### C BC, LIPASE, CMP #### [facility] [address] Eosinophils/100 leukocytes i n Blood by Automated countOrdered By: Angie Davidson on 02-09-2025 Eosinophils/100 WBC (Bld) 0.5 % Normal . [facility] Comment on above: Performed By: #### C BC, LIPASE, CMP #### [facility] [address] Erythrocyte distribution wid th [Ratio] by Automated countOrdered By: Angie Davidson on 02-09-2025 Erythrocyte distribution width (RBC) [Ratio] 13.2 % Normal 11.9-15.3 [facility] Comment on above: Performed By: #### C BC, LIPASE, CMP #### [facility] [address] Erythrocytes [#/volume] in B lood by Automated countOrdered By: Angie Davidson on 02-09-2025 RBC (Bld) [#/Vol] 4.46 10*6/uL Normal 3.60-5.00 [facility] Comment on above: Performed By: #### C BC, LIPASE, CMP #### [facility] [address] Glucose [Mass/volume] in Ser um or PlasmaOrdered By: Angie Davidson on 02-09-2025 Glucose [Mass/Vol] 125 mg/dL High 70-100 [facility] Comment on above: ADA recommended refe rence rangeRandom Glucose Reference Range is dependent on time and content of last meal. Glucose of more than 200 mg/dL in a nonstressed, ambulatory subject supports the diagnosis of Diabetes Mellitus. Result Comment: [place] om Glucose Reference Range is dependent on time and content of last meal. Glucose of more than 200 mg/dL in a nonstressed, ambulatory subject supports the diagnosis of Diabetes Mellitus. ADA recommended reference range Performed By: #### C BC, LIPASE, CMP #### [address] Hematocrit [Volume Fraction] of Blood by Automated countOrdered By: Angie Davidson on 02-09-2025 Hematocrit (Bld) [Volume fraction] 41.1 % Normal 34.0-46.4 [facility] Comment on above: Performed By: #### C BC, LIPASE, CMP #### [address] Hemoglobin [Mass/volume] in BloodOrdered By: Angie Davidson on 02-09-2025 Hemoglobin (Bld) [Mass/Vol] 14.3 g/dL Normal 11.8-15.4 [facility] Comment on above: Performed By: #### C BC, LIPASE, CMP #### [address] Leukocytes [#/volume] correc law for nucleated erythrocytes in Blood by Automated counOrdered By: Angie Davidson on 02-09-2025 WBC corrected for nucl RBC Auto (Bld) [#/Vol] 6.9 10*3/uL 3.8-11.6 [facility] Leukocytes [#/volume] in Blo od by Automated countOrdered By: Angie Davidson on 02-09-2025 WBC (Bld) [#/Vol] 6.9 10*3/uL Normal 3.8-11.6 [facility] Comment on above: Performed By: #### C BC, LIPASE, CMP #### [address] Lipase [Enzymatic activity/v olume] in Serum or PlasmaOrdered By: Angie Davidson on 02-09-2025 Lipase [Catalytic activity/Vol] 24.0 U/L Normal 11.0-82.0 [facility] Comment on above: Result Comment: PERF ORMED BY: [place] [address] PATHOLOGIST YARN TWISTER NEHA AMES M.D. Performed By: #### C BC, LIPASE, CMP #### [address] Lymphocytes [#/volume] in Bl ood by Automated countOrdered By: Angie Davidson on 02-09-2025 Lymphocytes (Bld) [#/Vol] 1.5 10*3/uL Normal 1.00-4.8 [facility] Comment on above: Performed By: #### C BC, LIPASE, CMP #### [address] Lymphocytes/100 leukocytes i n Blood by Automated countOrdered By: Angie Davidson on 02-09-2025 Lymphocytes/100 WBC (Bld) 21.6 % Normal . [facility] Comment on above: Performed By: #### C BC, LIPASE, CMP #### [address] MCH [Entitic mass] by Automa law countOrdered By: Angie Davidson on 02-09-2025 MCH (RBC) [Entitic mass] 32.0 pg Normal 24.7-34.3 [facility] Comment on above: Performed By: #### C BC, LIPASE, CMP #### [address] MCHC Auto (RBC) [Mass/Vol]Or dered By: Angie Davidson on 02-09-2025 MCHC (RBC) [Mass/Vol] 34.7 g/dL 32.0-35.0 [facility] MCV [Entitic volume] by Auto mated countOrdered By: Angie Davidson on 02-09-2025 MCV (RBC) [Entitic vol] 92.2 fL Normal 80-100 [facility] Comment on above: Performed By: #### C BC, LIPASE, CMP #### [address] Monocyte distribution width [Entitic volume] in Blood by AutomatedOrdered By: Angie Davidson on 02-09-2025 Monocyte distribution width Auto (Bld) [Entitic vol] 15.66 % 0.00-20.00 [facility] Monocytes [#/volume] in Bloo d by Automated countOrdered By: Angie Davidson on 02-09-2025 Monocytes (Bld) [#/Vol] 0.6 10*3/uL Normal 0.0-0.8 [facility] Comment on above: Performed By: #### C BC, LIPASE, CMP #### [facility] [address] [place] [address] [place] Monocytes/100 leukocytes in Blood by Automated countOrdered By: Angie Davidson on 02-09-2025 Monocytes/100 WBC (Bld) 8.6 % Normal . [facility] Comment on above: Performed By: #### C BC, LIPASE, CMP #### [facility] [address] [place] [address] [place] Neutrophils [#/volume] in Bl ood by Automated countOrdered By: Angie Davidson on 02-09-2025 Neutrophils (Bld) [#/Vol] 4.8 10*3/uL Normal 1.8-7.7 [facility] Comment on above: Performed By: #### C BC, LIPASE, CMP #### [facility] [address] [place] [address] [place] Neutrophils/100 leukocytes i n Blood by Automated countOrdered By: Angie Davidson on 02-09-2025 Neutrophils/100 WBC (Bld) 68.7 % Normal . [facility] Comment on above: Performed By: #### C BC, LIPASE, CMP #### [facility] [address] [place] [address] No Panel InformationOrdered By: Angie Davidson on 02-09-2025 Estimated GFR (CKD-EPI) > 60.0 mL/Min [facility] Creatinine Clearance (Chem 46.26 [facility] Nucleated erythrocytes [Pres ence] in Blood by Automated countOrdered By: Angie Davidson on 02-09-2025 Nucleated RBC Auto Ql (Bld) 0.1 /100{WBC} 0-0.5 [facility] Osmolalityon 02-09-2025 Osmolality 267 mosm Low 278-305 [facility] Comment on above: Result Comment: PERF ORMED BY: [place] [address] PATHOLOGIST YARN TWISTER NEHA AMES M.D. Performed By: #### C MP, MG, CBC #### [facility] [address] Osmolality measurementOrdere d By: Louis Oliveira on 02-09-2025 Osmolality (Unsp spec) [Osmolality] 267 mosm Low 278-305 [facility] Platelet mean volume [Entiti c volume] in Blood by Automated countOrdered By: Angie Davidson on 02-09-2025 Platelet mean volume (Bld) [Entitic vol] 7.1 fL Normal 6.3-10.7 [facility] Comment on above: Performed By: #### C BC, LIPASE, CMP #### [address] Platelets [#/volume] in Bloo d by Automated countOrdered By: Angie Davidson on 02-09-2025 Platelets (Bld) [#/Vol] 222 10*3/uL Normal 150-450 [facility] Comment on above: Performed By: #### C BC, LIPASE, CMP #### [address] Potassium [Moles/volume] in Serum or PlasmaOrdered By: Angie Davidson on 02-09-2025 Potassium [Moles/Vol] 3.9 mmol/L Normal 3.5-5.1 [facility] Comment on above: Performed By: #### C BC, LIPASE, CMP #### [address] Protein [Mass/volume] in Ser um or PlasmaOrdered By: Angie Davidson on 02-09-2025 Protein [Mass/Vol] 7.3 g/dL Normal 6.4-8.9 [facility] Comment on above: Performed By: #### C BC, LIPASE, CMP #### [address] Serum globulin measurement b y calculation (mass/volume)Ordered By: Angie Davidson on 02-09-2025 Globulin (S) [Mass/Vol] 2.6 g/dL Normal [facility] Comment on above: Performed By: #### C BC, LIPASE, CMP #### [address] Serum or plasma albumin/glob ulin mass ratioOrdered By: Angie Davidson on 02-09-2025 Albumin/Globulin [Mass ratio] 1.8 {ratio} Normal [facility] Comment on above: Performed By: #### C BC, LIPASE, CMP #### [address] Serum or plasma anion gap de terminationOrdered By: Angie Davidson on 02-09-2025 Anion gap [Moles/Vol] 12.6 mmol/L Normal 6.0-15.0 [facility] Comment on above: Performed By: #### C BC, LIPASE, CMP #### [address] Sodium [Moles/volume] in Ser um or PlasmaOrdered By: Angie Davidson on 02-09-2025 Sodium [Moles/Vol] 126 mmol/L Low 136-145 [facility] Comment on above: Performed By: #### C BC, LIPASE, CMP #### [address] Troponin I High Sensitivityo n 02-09-2025 Troponin I High Sensitivity 15 Normal 0-15 [facility] Comment on above: Result Comment: The Troponin units of report have been changed to meet the Chest Pain Accreditation requirement, element EC5.M1l2. Troponin units are changed from pg/ml to ng/L. Also, the decimal is removed and results are in whole numbers. PERFORMED BY: [place] [address] PATHOLOGIST YARN TWISTER NEHA AMES M.D. Performed By: #### C K, HS TROP #### [address] Troponin I.cardiac [Mass/vol ume] in Serum or Plasma by Detection limit <= 0.01 ng/mLOrdered By: Louis Oliveira on 02-09-2025 Troponin I.cardiac DL <= 0.01 ng/mL [Mass/Vol] 15 ng/L 0-15 [facility] Comment on above: The Troponin units o f report have been changed to meet the Chest Pain Accreditation requirement, element EC5.M1l2. Troponin units are changed from pg/ml to ng/L. Also, the decimal is removed and results are in whole numbers. Urate [Mass/volume] in Serum or PlasmaOrdered By: Louis Oliveira on 02-09-2025 Urate [Mass/Vol] 3.5 mg/dL Normal 2.3-6.6 [facility] Comment on above: Result Comment: PERF ORMED BY: [place] [address] PATHOLOGIST YARN TWISTER NEHA AMES M.D. Performed By: #### C MP, MG, CBC #### [address] X-ray reportOrdered By: Donte Perez on 02-09-2025 Study report [facility] [place] [address] [place] [address] XRay Report Signed Patient: Atiya Jha MR#: [id number] : 1940 Acct:[id number] Age/Sex: 84 / F ADM Date: 5 Loc: ER Room: Type: [facility] ER Attending Dr: Copies to: Angie Davidson MD~ Ordering Provider: Angie Davidson MD Date of Service: 02/09/25 XR/XR chest 2V*: Nausea/Vomiting/Diarrhe a PA AND LATERAL CHEST: CLINICAL HISTORY: Persistent left-sided pain, generalized weakness COMPARISON: CT abdomen pelvis 02/09/2025 FINDINGS: Unremarkable cardiac mediastinal. No focal opacity, effusion or pneumothorax. XR/XR chest 2V* IMPRESSION: NO ACUTE CARDIOPULMONARY ABNORMALITY. Impression dictated by: Stephen Perez M.D. 02/09/2025 9:22 PM Dictation Location: [place] [address] Transcribed By: [facility] 02/09/252121 Dictated By: Stephen Perez MD 02/09/252120 Signed By: 02/09/252121 [facility] Work Phone: XR chest 2V*on 02-09-2025 XR chest 2V* [facility] Main [address] [address] XRay Report Signed Patient: Atiya Jha MR#: [id number] : 1940 Acct:[id number] Age/Sex: 84 / F ADM Date: 02/09/25 Loc: ER Room: Type: [facility] ER Attending Dr: Copies to: Angie Davidson MD Ordering Provider: Angie Davidson MD Date of Service: 02/09/25 XR/XR chest 2V*: Nausea/Vomiting/Diarrhe a PA AND LATERAL CHEST: CLINICAL HISTORY: Persistent left-sided pain, generalized weakness COMPARISON: CT abdomen pelvis 02/09/2025 FINDINGS: Unremarkable cardiac mediastinal. No focal opacity, effusion or pneumothorax. XR/XR chest 2V* IMPRESSION: NO ACUTE CARDIOPULMONARY ABNORMALITY. Impression dictated by: Stephen Perez M.D. 02/09/2025 9:22 PM Dictation Location: [facility] Transcribed By: [facility] 02/09/252121 Dictated By: Stephen Perez MD 02/09/252120 Signed By: 02/09/252121 Normal [facility] X-ray reportOrdered By: Donte Perez on 02-03-2025 Study report [address] [address] XRay Report Signed Patient: Atiya Jha MR#: [id number] : 1940 Acct:[id number] Age/Sex: 84 / F ADM Date: 5 Loc: ER Room: Type: [facility] ER Attending Dr: Copies to: Jerson Aranda DO~ Ordering Provider: Jerson Aranda DO Date of Service: 02/03/25 XR/XR ribs LT min 3V w CXR1V*: Fall PA CHEST WITH LEFT-SIDED RIBS: CLINICAL HISTORY: Fell, left rib pain, posterior lower COMPARISON: 11/25/2024 FINDINGS: Unremarkable cardiomediastinal. Lungs are clear. No effusion or pneumothorax. No displaced rib fracture. Degenerative changes left shoulder. XR/XR ribs LT min 3V w CXR1V* IMPRESSION: NO DISPLACED RIB FRACTURE. NO ACUTE PLEURAL-PARENCHYMAL DISEASE. Impression dictated by: Stephen Perez M.D. 02/03/2025 10:08 AM Dictation Location: [facility]29 Transcribed By: JAI 02/03/25 1008 Dictated By: Stephen Perez MD 02/03/25 100 Signed By: 02/03/25 1008 [facility] Work Phone: XR ribs LT min 3V w CXR1V*on 02-03-2025 XR ribs LT min 3V w CXR1V* [facility] [place] [address] [place] [address] XRay Report Signed Patient: Atiya Jha MR#: [id number] : 1940 Acct:[id number] Age/Sex: 84 / F ADM Date: 02/03/25 Loc: ER Room: Type: [facility] ER Attending Dr: Copies to: Jerson Aranda DO Ordering Provider: Jerson Aranda DO Date of Service: 02/03/25 XR/XR ribs LT min 3V w CXR1V*: Fall PA CHEST WITH LEFT-SIDED RIBS: CLINICAL HISTORY: Fell, left rib pain, posterior lower COMPARISON: 11/25/2024 FINDINGS: Unremarkable cardiomediastinal. Lungs are clear. No effusion or pneumothorax. No displaced rib fracture. Degenerative changes left shoulder. XR/XR ribs LT min 3V w CXR1V* IMPRESSION: NO DISPLACED RIB FRACTURE. NO ACUTE PLEURAL-PARENCHYMAL DISEASE. Impression dictated by: Stephen Perez M.D. 02/03/2025 10:08 AM Dictation Location: [facility]29 Transcribed By: JAI 02/03/25 1008 Dictated By: Stephen Perez MD 02/03/25 100 Signed By: 02/03/25 1008 Normal [facility] ECG 12 Leadon 01-26-2025 Normal sinus rhythm. Normal EKG [facility] Work Phone: No Panel Informationon 01-10 SHANNAN Mitchell 01/10/2025 12:23 PM L Inj/Asp: [...] and draped in the usual sterile fashion. [facility] XR Knee - right 1 or 2 Views on 01-10-2025 Imaging Result: AP and lateral right knee Valgus alignment No acute fracture or dislocation Vascular calcification distal aspect of femur. Possible calcified loose body posterior recess. Near bone on bone articulation lateral joint line, mild flattening of articular surface Impression: moderate tricompartmental arthritic changes. [facility] Radiology Study observation (narrative) [facility] Basic metabolic 1999 panelon 12-03-2024 Anion gap [Moles/Vol] 10 mmol/L 10 - 2 0 mmol/L [facility] Calcium [Mass/Vol] 9.2 mg/dL 8.6 - 10. 3 mg/dL [facility] Chloride [Moles/Vol] 101 mmol/L 98 - 10 7 mmol/L [facility] CO2 [Moles/Vol] 29 mmol/L 21 - 32 mmol/L [facility] Creatinine [Mass/Vol] 0.92 mg/dL 0.50 - 1.05 mg/dL [facility] GFR/1.73 sq M.predicted among non-blacks MDRD (S/P/Bld) [Vol rate/Area] 61 mL/min/{1.73_m2} - PINF [facility] Comment on above: Calculations of ryan mated GFR are performed using the 2020 CKD-EPI Study Refit equation without the race variable for the IDMS-Traceable creatinine methods. https://jasn.asnjournals.org/content/early//ASN.07941 53174 Glucose [Mass/Vol] 98 mg/dL 74 - 99 mg/dL [facility] Potassium [Moles/Vol] 4.1 mmol/L 3.5 - 5.3 mmol/L [facility] Sodium [Moles/Vol] 136 mmol/L 136 - 145 mmol/L [facility] Urea nitrogen [Mass/Vol] 13 mg/dL 6 - 23 mg/dL [facility] Anion gap [Moles/Vol] 10 mmol/L Normal 10-20 [facility] Comment on above: Performed By: #### 2 4356-8 #### SISSY HOGAN ([id number]) [facility] [address] [place] [address] Calcium [Mass/Vol] 9.2 mg/dL Normal 8.6-10.3 [facility] Comment on above: Performed By: #### 2 4356-8 #### SISSY HOGAN ([id number]) [facility] [address] [place] [address] Chloride [Moles/Vol] 101 mmol/L Normal 98-107 [facility] Comment on above: Performed By: #### 2 4356-8 #### SISSY HOGAN ([id number]) [facility] [address] [place] [address] CO2 [Moles/Vol] 29 mmol/L Normal 21-32 [facility] Comment on above: Performed By: #### 2 4356-8 #### SISSY HOGAN ([id number]) [facility] [address] [place] [address] Creatinine [Mass/Vol] 0.92 mg/dL Normal 0.50-1.05 [facility] Comment on above: Performed By: #### 2 4356-8 #### SISSY HOGAN ([id number]) [facility] [address] [place] [address] Glomerular filtration rate/1.73 sq M.predicted 61 mL/min/1.73m*2 Normal >60 [facility] Comment on above: Result Comment: Calc ulations of estimated GFR are performed using the 2020 CKD-EPI Study Refit equation without the race variable for the IDMS-Traceable creatinine methods. https://jasn.asnjournals.org/content//ASN.21631 88979 Performed By: #### 2 4356-8 #### SISSY HOGAN ([id number]) [facility] [address] [place] [address] Glucose [Mass/Vol] 98 mg/dL Normal 74-99 [facility] Comment on above: Performed By: #### 2 4356-8 #### SISSY HOGAN ([id number]) [facility] [address] [place] [address] Potassium [Moles/Vol] 4.1 mmol/L Normal 3.5-5.3 [facility] Comment on above: Performed By: #### 2 4356-8 #### SISSY HOGAN ([id number]) [facility] [address] [place] [address] Sodium [Moles/Vol] 136 mmol/L Normal 136-145 [facility] Comment on above: Performed By: #### 2 4356-8 #### SISSY HOGAN ([id number]) [facility] [address] [place] [address] Urea nitrogen [Mass/Vol] 13 mg/dL Normal 6-23 [facility] Comment on above: Performed By: #### 2 4356-8 #### SISSY HOGAN ([id number]) [facility] [address] [place] [address] CBC panel Auto (Bld)on 12-03 Erythrocyte distribution width (RBC) [Ratio] 13 % 11.5 - 14.5 % [facility] Hematocrit (Bld) [Volume fraction] 35.6 % Low 36.0 - 46.0 % [facility] Hemoglobin (Bld) [Mass/Vol] 11.9 g/dL Low 12.0 - 16.0 g/dL [facility] Interpretation and review of laboratory results Abnormal [facility] MCH (RBC) [Entitic mass] 31.8 pg 26.0 - 34.0 pg [facility] MCHC (RBC) [Mass/Vol] 33.4 g/dL 32.0 - 36.0 g/dL [facility] MCV (RBC) [Entitic vol] 95 fL 80 - 100 fL [facility] Nucleated RBC/100 WBC (Bld) [Ratio] 0 % [facility] Platelets (Bld) [#/Vol] 178 10*3/uL [facility] RBC (Bld) [#/Vol] 3.74 10*6/uL Low [facility] WBC (Bld) [#/Vol] 6.9 10*3/uL [facility] Erythrocyte distribution width (RBC) [Ratio] 13.0 % Normal 11.5-14.5 [facility] Comment on above: Performed By: #### 5 3315-8 #### SISSY HOGAN ([id number]) [facility] [address] [place] [address] Hematocrit (Bld) [Volume fraction] 35.6 % Low 36.0-46.0 [facility] Comment on above: Performed By: #### 5 3315-8 #### SISSY HOGAN ([id number]) [facility] [address] [place] [address] Hemoglobin (Bld) [Mass/Vol] 11.9 g/dL Low 12.0-16.0 [facility] Comment on above: Performed By: #### 5 3315-8 #### SISSY HOGAN ([id number]) [facility] [address] [place] [address] MCH (RBC) [Entitic mass] 31.8 pg Normal 26.0-34.0 [facility] Comment on above: Performed By: #### 5 3315-8 #### SISSY HOGAN ([id number]) [facility] [address] [place] [address] MCHC (RBC) [Mass/Vol] 33.4 g/dL Normal 32.0-36.0 [facility] Comment on above: Performed By: #### 5 3315-8 #### SISSY HOGAN ([id number]) [facility] [address] [place] [address] MCV (RBC) [Entitic vol] 95 fL Normal 80-100 [facility] Comment on above: Performed By: #### 5 3315-8 #### SISSY HOGAN ([id number]) [facility] [address] [place] [address] Nucleated RBC/100 WBC (Bld) [Ratio] 0.0 /100 WBCs Normal 0.0-0.0 [facility] Comment on above: Performed By: #### 5 6595-8 #### SISSY HOGAN ([id number]) [facility] [address] [place] [address] Platelets (Bld) [#/Vol] 178 x10*3/uL Normal 150-450 [facility] Comment on above: Performed By: #### 5 0895-8 #### SISSY HOGAN ([id number]) [facility] [address] [place] [address] RBC (Bld) [#/Vol] 3.74 x10*6/uL Low 4.00-5.20 [facility] Comment on above: Performed By: #### 5 3315-8 #### SISSY HOGAN ([id number]) [facility] [address] [place] [address] WBC (Bld) [#/Vol] 6.9 x10*3/uL Normal 4.4-11.[address] [facility] Comment on above: Performed By: #### 5 3315-8 #### SISSY HOGAN ([id number]) [facility] [address] [place] [address] ECG 12-LEADon 12-03-2024 ECG 12-LEAD Ventricular Rate 59 Atrial Rate 59 P-R Interval 206 QRS Duration 90 Q-T Interval 468 QTC Calculation(Bazett) 463 P Warba 79 R Warba 29 T Warba 83 QRS Count 10 Q Onset 216 P Onset 113 P Offset 180 T Offset 450 QTC Fredericia 465 Diagnosis Sinus bradycardia Otherwise normal ECG When compared with ECG of 02-DEC-2024 13:38, (unconfirmed) No significant change was found Confirmed by Chay Manuel ([id number]) on 12/03/2024 4:02:30 PM Normal [facility] Heparin Assayon 12-03-2024 Heparin unfractionated Chromogenic method Qn (PPP) 0.1 [facility] Heparin unfractionated Chrom ogenic method Qn (PPP)on 12-03-2024 Interpretation and review of laboratory results Normal [facility] The therapeutic reference range for UFH may be either 0.3-0.6 IU/mL or 0.3-0.7 IU/mL based on the clinical setting for anticoagulant therapy and the associated nomogram used. For Heparin dosing guidelines based on clinical scenario and Heparin Assay results, please refer to local Pharmacy and the [facility] Guidelines for Anticoagulation Therapy available on the [facility] intranet at: [email or web address] [email or web address] [email or web address]_Guidelines_for_Antic oagu.aspx [facility] Heparin.unfractionatedon Heparin unfractionated Chromogenic method Qn (PPP) 0.1 IU/mL Normal See Comment Below for Therapeutic Ranges [facility] Comment on above: Order Comment: The t herapeutic reference range for UFH may be either 0.3-0.6 IU/mL or 0.3-0.7 IU/mL based on the clinical setting for anticoagulant therapy and the associated nomogram used. For Heparin dosing guidelines based on clinical scenario and Heparin Assay results, please refer to local Pharmacy and the [facility] Guidelines for Anticoagulation Therapy available on the [facility] intranet at: [email or web address]/[email or web address]_ ospitals_Guidelines_for_Anticoagu.aspx Performed By: #### 2 4356-8 #### SISSY HOGAN ([id number]) [facility]) [address] [place] [address] Magnesiumon 12-03-2024 Magnesium [Mass/Vol] 2.01 mg/dL 1.60 - 2.40 mg/dL [facility] Magnesium [Mass/Vol] 2.01 mg/dL Normal 1.60-2.40 [facility] Comment on above: Performed By: #### 2 4356-8 #### SISSY HOGAN ([id number]) [facility]) [address] [place] [address] No Panel Informationon 12-03 Interpretation and review of laboratory results Normal [facility] ACT Coag (Bld)on 12-02-2024 Interpretation and review of laboratory results Abnormal [facility] ACTIVATED CLOTTING TIME LOWo n 12-02-2024 ACT Coag (Bld) High [facility] Comment on above: ABOVE LIMIT FOR SORAIDA CE Target ACT range will vary based on the patient population, clinical status, and surgical intervention occurring. Activated clotting timeon ACT Coag (Bld) s High 83-199 [facility] Comment on above: Result Comment: ABOV E LIMIT FOR DEVICE Target ACT range will vary based on the patient population, clinical status, and surgical intervention occurring. Performed By: #### 5 3315-8 #### SISSY HOGAN ([id number]) [facility] [address] [place], [place] [address] Basic metabolic 2000 panelon 12-02-2024 Anion gap [Moles/Vol] 10 mmol/L 10 - 2 0 mmol/L [facility] Calcium [Mass/Vol] 9.4 mg/dL 8.6 - 10. 3 mg/dL [facility] Chloride [Moles/Vol] 102 mmol/L 98 - 10 7 mmol/L [facility] CO2 [Moles/Vol] 29 mmol/L 21 - 32 mmol/L [facility] Creatinine [Mass/Vol] 0.89 mg/dL 0.50 - 1.05 mg/dL [facility] GFR/1.73 sq M.predicted among non-blacks MDRD (S/P/Bld) [Vol rate/Area] 64 mL/min/{1.73_m2} - PINF [facility] Comment on above: Calculations of ryan mated GFR are performed using the 2020 CKD-EPI Study Refit equation without the race variable for the IDMS-Traceable creatinine methods. https://jasn.asnjournals.org/content/early/ASN.13931 80630 Glucose [Mass/Vol] 101 mg/dL High 74 - 99 mg/dL [facility] Interpretation and review of laboratory results Abnormal [facility] Potassium [Moles/Vol] 3.9 mmol/L 3.5 - 5.3 mmol/L [facility] Sodium [Moles/Vol] 137 mmol/L 136 - 145 mmol/L [facility] Urea nitrogen [Mass/Vol] 16 mg/dL 6 - 23 mg/dL [facility] Anion gap [Moles/Vol] 10 mmol/L Normal 10-20 [facility] Comment on above: Performed By: #### 5 3315-8 #### SISSY HOGAN ([id number]) [facility] ([facility]) [address] [place] [address] Calcium [Mass/Vol] 9.4 mg/dL Normal 8.6-10.3 [facility] Comment on above: Performed By: #### 5 3315-8 #### SISSY HOGAN ([id number]) [facility]) [address] [place] [address] Chloride [Moles/Vol] 102 mmol/L Normal 98-107 [facility] Comment on above: Performed By: #### 5 3315-8 #### KAYIBGABRIEL HOGAN ([id number]) [facility]) [address] [place] [address] CO2 [Moles/Vol] 29 mmol/L Normal 21-32 [facility] Comment on above: Performed By: #### 5 3315-8 #### KAYIBGABRIEL HOGAN ([id number]) [facility] ([facility]) [address] [place] [address] Creatinine [Mass/Vol] 0.89 mg/dL Normal 0.50-1.05 [facility] Comment on above: Performed By: #### 5 3315-8 #### SISSY MITCHELL RIO EDIN ([id number]) [facility] ([facility]) [address] [place] [address] 72597 Glomerular filtration rate/1.73 sq M.predicted 64 mL/min/1.73m*2 Normal >60 [facility] Comment on above: Result Comment: Calc ulations of estimated GFR are performed using the 2020 CKD-EPI Study Refit equation without the race variable for the IDMS-Traceable creatinine methods. https://jasn.asnjournals.org/content//ASN.48083 31755 Performed By: #### 5 3315-8 #### SISSY MITCHELL RIO EDIN ([id number]) [facility] ([facility]) [address] [place] [address] 86862 Glucose [Mass/Vol] 101 mg/dL High 74-99 [facility] Comment on above: Performed By: #### 5 3315-8 #### KAYIBGABRIEL MITCHELL RIO EDIN ([id number]) [facility]) [address] [place] [address] Potassium [Moles/Vol] 3.9 mmol/L Normal 3.5-5.3 [facility] Comment on above: Performed By: #### 5 3315-8 #### KAYIBELILIZZY MITCHELLASA EDIN ([id number]) [facility]) [address] [place] [address] Sodium [Moles/Vol] 137 mmol/L Normal 136-145 [facility] Comment on above: Performed By: #### 5 3315-8 #### SISYS MITCHELL RIO EDIN ([id number]) [facility]) [address] [place] [address] Urea nitrogen [Mass/Vol] 16 mg/dL Normal 6-23 [facility] Comment on above: Performed By: #### 5 3315-8 #### SISSY MITCHELL RIO EDIN ([id number]) [facility]) [address] [place] [address] CARDIAC CATHETERIZATION PROC EDUOswaldo 12-02-2024 CARDIAC CATHETERIZATION PROCEDURE [facility], Flag Signal[employer] [address] [place] [address] Cardiovascular Catheterization Report Patient Name: ATIYA JHA Performing Physician: Zaira Howard MD Study Date: 12/02/2024 Verifying Physician: Zaira Howard MD MRN/PID: [id number] Wellness Trainer/Co-Scrub: Ordering Provider: [id number] DANIELA PORTILLO Date of /Age: 1005/07/1940 / 84 years Wellness Trainer: [id number] Jamia Ndiaye MD Gender: F Fellow: Surgeon: Study: PCI - Percutaneous Coronary Intervention Additional Study: Coronary Arteriogram Indications: ATIYA JHA is a 85 year old female who presents with hypertension, dyslipidemia, prior percutaneous coronary intervention and a chest pain assessment of typical angina. Worsening angina. Stress test performed: No. CTA performed: No. Agadejaton accessed: No. LVEF Assessed: No. Cardiac arrest: No. Cardiac surgical consult: Completed - cardiac surgery not recommended. Cardiovascular Instability: No Frailty status of patient entering lab: 5 = Mildly frail. Procedure Description: After infiltration with 2% Lidocaine, the right femoral artery was cannulated with a modified Seldinger technique. Subsequently a 6 [place]an sheath was placed in the right femoral [...] a balloon was inflated for pre-dilation, Resolute Ananda 2.5x15 stent was deployed in the lesion [...] mm x 12 mm at 12 KELI. Payne [place] drug-eluting stent 2.5 mm x 15 mm was advanced to the lesion and implanted at 12 KELI. The stent was post dilated using a non-compliant balloon 3.0 mm x 8 mm at 20 KELI. The stenosis was successfully reduced from 99% to 0%. Post-intervention DERICK flow was 3. Hemo Personnel: + +------ ---+ Name Duty + +------ ---+ Ann Howard MD, MD 1 + +------ ---+ Hemodynamic Pressures: +----+ ---+ +-------- -----+ +-- -------+ Site Date Time Phase Name Systolic mmHg Diastolic mmHg Mean mmHg +----+ ---+ +-------- -----+ +-- -------+ AO 12/02/2024 12:47:54 PM AIR REST 120 53 77 +----+ ---+ +-------- -----+ +-- -------+ AO 12/02/2024 12:49:43 PM AIR REST 107 39 64 +----+ ---+ +-------- -----+ +-- -------+ AO 12/02/2024 12:55:31 PM AIR REST 75 50 61 +----+ ---+ +-------- -----+ +-- -------+ AO 12/02/2024 12:55:54 PM AIR REST 98 49 75 +----+ ---+ +-------- -----+ +-- -------+ AO 12/02/2024 12:56:40 PM AIR REST 121 62 86 +----+ ---+ +-------- -----+ +-- -------+ Cardiac Cath Post Procedure Notes: Post Procedure Diagnosis: OLE of LAD. Blood Loss: Estimated blood loss during the procedure was 3 mls. Specimens Removed: Number of specimen(s) removed: none. CONCLUSIONS: 1. Left Anterior Descending Artery: is significantly obstructed. 2. Ostial LAD Lesion: The percent stenosis is 99%. 3. Ostial LAD Lesion: Instent Restenosis. 4. Ostial LAD Lesion: pre-dilation, Resolute [place] 2.5x15 post-dilation : 0% residual stenosis. LAD: pre-procedure DERICK flow was 3(complete perfusion) and post-procedure DERICK flow was 3(complete perfusion). ICD 10 Codes: Angina pectoris, unspecified-I20.9 CPT Codes: Stent w angioplasty Left Anterior Descending single major Artery branch (PCI)-04455.LD; Coronary Angiography (LH (more content not included)... Normal [facility] CBC panel Auto (Bld)on 12-02 Erythrocyte distribution width (RBC) [Ratio] 13 % 11.5 - 14.5 % [facility] Hematocrit (Bld) [Volume fraction] 33.3 % Low 36.0 - 46.0 % [facility] Hemoglobin (Bld) [Mass/Vol] 11.4 g/dL Low 12.0 - 16.0 g/dL [facility] Interpretation and review of laboratory results Abnormal [facility] MCH (RBC) [Entitic mass] 31.9 pg 26.0 - 34.0 pg [facility] MCHC (RBC) [Mass/Vol] 34.2 g/dL 32.0 - 36.0 g/dL [facility] MCV (RBC) [Entitic vol] 93 fL 80 - 100 fL [facility] Nucleated RBC/100 WBC (Bld) [Ratio] 0 % [facility] Platelets (Bld) [#/Vol] 171 10*3/uL [facility] RBC (Bld) [#/Vol] 3.57 10*6/uL Low [facility] WBC (Bld) [#/Vol] 6.4 10*3/uL [facility] Erythrocyte distribution width (RBC) [Ratio] 13.0 % Normal 11.5-14.5 [facility] Comment on above: Performed By: #### 5 7885-8 #### SISSY HOGAN ([id number]) [facility]) [address] [place] [address] Hematocrit (Bld) [Volume fraction] 33.3 % Low 36.0-46.0 [facility] Comment on above: Performed By: #### 5 3215-8 #### SISSY HOGAN ([id number]) [facility]) [address] [place] [address] 66539 Hemoglobin (Bld) [Mass/Vol] 11.4 g/dL Low 12.0-16.0 [facility] Comment on above: Performed By: #### 5 4155-8 #### SISSY HOGAN ([id number]) [facility]) [address] [place] [address] 99988 MCH (RBC) [Entitic mass] 31.9 pg Normal 26.0-34.0 [facility] Comment on above: Performed By: #### 5 5115-8 #### SISSY HOGAN ([id number]) [facility]) [address] [place] [address] 95288 MCHC (RBC) [Mass/Vol] 34.2 g/dL Normal 32.0-36.0 [facility] Comment on above: Performed By: #### 5 0725-8 #### SISSY HOGAN ([id number]) [facility]) [address] [place] [address] 47063 MCV (RBC) [Entitic vol] 93 fL Normal 80-100 [facility] Comment on above: Performed By: #### 5 3315-8 #### SISSY MITCHELL ALICIA JESUS ([id number]) [facility]) [address] [place] [address] 10348 Nucleated RBC/100 WBC (Bld) [Ratio] 0.0 /100 WBCs Normal 0.0-0.0 [facility] Comment on above: Performed By: #### 5 3315-8 #### KAYIBGABRIEL MITCHELL RIO EDIN ([id number]) [facility]) [address] [place] [address] 24088 Platelets (Bld) [#/Vol] 171 x10*3/uL Normal 150-450 [facility] Comment on above: Performed By: #### 5 3315-8 #### SISSY MITCHELL RIO EDIN ([id number]) [facility]) [address] [place] [address] 04523 RBC (Bld) [#/Vol] 3.57 x10*6/uL Low 4.00-5.20 [facility] Comment on above: Performed By: #### 5 3315-8 #### KAYIBGABRIEL MITCHELL RIO EDIN ([id number]) [facility]) [address] [place] [address] 59191 WBC (Bld) [#/Vol] 6.4 x10*3/uL Normal 4.4-11.[address] [facility] Comment on above: Performed By: #### 5 3315-8 #### KAYIBGABRIEL MITCHELL RIO EDIN ([id number]) [facility]) [address] [place] [address] 84537 Cardiac catheterization stud yon 12-02-2024 [facility], [employer] [address] [place] [address] Cardiovascular Catheterization Report Patient Name: ATIYA JHA Performing Physician: Zaira Howard MD Study Date: 12/02/2024 Verifying Physician: Zaira Ann Howard MD MRN/PID: [id number] Wellness Trainer/Co-Scrub: Ordering Provider: [id number] DANIELA PORTILLO Date of /Age: 1005/07/1940 / 84 years Wellness Trainer: [id number] Jamia Ndiaye MD Gender: F Fellow: Surgeon: Study: PCI [...] a modified Seldinger technique. Subsequently a 6 [place]an sheath was placed in the right femoral [...] a balloon was inflated for pre-dilation, Resolute [place] 2.5x15 stent was deployed in the lesion [...] mm x 12 mm at 12 KELI. Payne [place] drug-eluting stent 2.5 mm x 15 mm was advanced to the lesion and implanted at 12 KELI. The stent was post dilated using a non-compliant balloon 3.0 mm x 8 mm at 20 KELI. The stenosis was successfully reduced from 99% to 0%. Post-intervention DERICK flow was 3. Hemo Personnel: + +------ ---+ Name Duty + +------ ---+ Ann Howard MD, MD 1 + +------ ---+ Hemodynamic Pressures: +----+ ---+ +-------- -----+ +-- -------+ Site Date Time Phase Name Systolic mmHg Diastolic mmHg Mean mmHg +----+ ---+ +-------- -----+ +-- -------+ AO 12/02/2024 12:47:54 PM AIR REST 120 53 77 +----+ ---+ +-------- -----+ +-- -------+ AO 12/02/2024 12:49:43 PM AIR REST 107 39 64 +----+ ---+ +-------- -----+ +-- -------+ AO 12/02/2024 12:55:31 PM AIR REST 75 50 61 +----+ ---+ +-------- -----+ +-- -------+ AO 12/02/2024 12:55:54 PM AIR REST 98 49 75 +----+ ---+ +-------- -----+ +-- -------+ AO 12/02/2024 12:56:40 PM AIR REST 121 62 86 +----+ ---+ +-------- -----+ +-- -------+ Cardiac Cath Post Procedure Notes: Post Procedure Diagnosis: OLE of LAD. Blood Loss: Estimated blood loss during the procedure was 3 mls. Specimens Removed: Number of specimen(s) removed: none. ____ (more content not included)... Ann Nur MD - 12/02/2024 [facility], Flag Signal[employer] [address] [place] [address] Cardiovascular Catheterization Report Patient Name: ATIYA JHA Performing Physician: Zaira Howard MD Study Date: 12/02/2024 Verifying Physician: Zaira Ann Howard MD MRN/PID: [id number] Wellness Trainer/Co-Scrub: Ordering Provider: [id number] DANIELA PORTILLO Date of /Age: 1005/07/1940 / 84 years Wellness Trainer: [id number] Jamia Ndiaye MD Gender: F Fellow: Surgeon: Study: PCI [...] a modified Seldinger technique. Subsequently a 6 [place] sheath was placed in the right femoral [...] a balloon was inflated for pre-dilation, Resolute Ananda 2.5x15 stent was deployed in the lesion [...] mm x 12 mm at 12 KELI. Payne Ananda drug-eluting stent 2.5 mm x 15 mm was advanced to the lesion and implanted at 12 KELI. The stent was post dilated using a non-compliant balloon 3.0 mm x 8 mm at 20 KELI. The stenosis was successfully reduced from 99% to 0%. Post-intervention DERICK flow was 3. Hemo Personnel: + +------ ---+ Name Duty + +------ ---+ Ann Howard MD, MD 1 + +------ ---+ Hemodynamic Pressures: +----+ ---+ +-------- -----+ +-- ------ -+ Site Date Time Phase Name Systolic mmHg Diastolic mmHg Mean mmHg +----+ ---+ +-------- -----+ +-- ------ -+ AO 12/02/2024 12:47:54 PM AIR REST 120 53 77 +----+ ---+ +-------- -----+ +-- ------ -+ AO 12/02/2024 12:49:43 PM AIR REST 107 39 64 +----+ ---+ +-------- -----+ +-- ------ -+ AO 12/02/2024 12:55:31 PM AIR REST 75 50 61 +----+ ---+ +-------- -----+ +-- ------ -+ AO 12/02/2024 12:55:54 PM AIR REST 98 49 75 +----+ ---+ +-------- -----+ +-- ------ -+ AO 12/02/2024 12:56:40 PM AIR REST 121 62 86 +----+ ---+ +-------- -----+ +-- ------ -+ Cardiac Cath Post Procedure Notes: Post Procedure Diagnosis: OLE of LAD. Blood Loss: Estimated blood loss during the procedure was 3 mls. Specimens Removed: Number of specimen(s) removed: none. CONCLUSIONS: 1. Left Anterior Descending Artery: is significantly obstructed. 2. Ostial LAD Lesion: The percent stenosis is 99%. 3. Ostial LAD Lesion: Instent Restenosis. 4. Ostial LAD Lesion: pre-dilation, Resolute [place] 2.5x15 post-dilation : 0% residual stenosis. LAD: pre-procedure DERICK flow was 3(complete perfusion) and post-procedure DERICK flow was 3(complete perfusion). ICD 10 Codes: Angina pectoris, unspecified-I20.9 CPT Codes: (more content not included)... [facility] Work Phone: [facility] Work Phone: ECG 12-LEADon 12-02-2024 ECG 12-LEAD Ventricular Rate 61 Atrial Rate 61 P-R Interval 184 QRS Duration 94 Q-T Interval 460 QTC Calculation(Bazett) 463 P Warba 24 R Warba 50 T Warba 80 QRS Count 10 Q Onset 222 P Onset 130 P Offset 179 T Offset 452 QTC Fredericia 462 Diagnosis Normal sinus rhythm Normal ECG When compared with ECG of 02-DEC-2024 06:15, (unconfirmed) No significant change was found Confirmed by Chay Manuel ([id number]) on 12/03/2024 3:56:28 PM Normal [facility] ECG 12-LEAD Ventricular Rate 60 Atrial Rate 60 P-R Interval 174 QRS Duration 94 Q-T Interval 444 QTC Calculation(Bazett) 444 P Warba 7 R Warba 49 T Warba 85 QRS Count 10 Q Onset 218 P Onset 131 P Offset 181 T Offset 440 QTC Fredericia 444 Diagnosis Normal sinus rhythm Normal ECG When compared with ECG of 01-DEC-2024 06:51, (unconfirmed) No significant change was found Confirmed by Chay Manuel ([id number]) on 12/03/2024 3:40:27 PM Normal [facility] Heparin Assayon 12-02-2024 Heparin unfractionated Chromogenic method Qn (PPP) 0.5 [facility] Heparin unfractionated Chrom ogenic method Qn (PPP)on 12-02-2024 Interpretation and review of laboratory results Normal [facility] The therapeutic reference range for UFH may be either 0.3-0.6 IU/mL or 0.3-0.7 IU/mL based on the clinical setting for anticoagulant therapy and the associated nomogram used. For Heparin dosing guidelines based on clinical scenario and Heparin Assay results, please refer to local Pharmacy and the [facility] Guidelines for Anticoagulation Therapy available on the [facility] intranet at: [email or web address] ls_Guidelines_for_Antic oagu.aspx [facility] Heparin.unfractionatedon Heparin unfractionated Chromogenic method Qn (PPP) 0.5 IU/mL Normal See Comment Below for Therapeutic Ranges [facility] Comment on above: Order Comment: The t herapeutic reference range for UFH may be either 0.3-0.6 IU/mL or 0.3-0.7 IU/mL based on the clinical setting for anticoagulant therapy and the associated nomogram used. For Heparin dosing guidelines based on clinical scenario and Heparin Assay results, please refer to local Pharmacy and the [facility] Guidelines for Anticoagulation Therapy available on the [facility] intranet at: [email or web address]_Guidelines_for_Anticoagu.aspx Performed By: #### 5 3315-8 #### SISSY HOGAN ([id number]) [facility]) [address] [place] [address] 39175 Magnesiumon 12-02-2024 Magnesium [Mass/Vol] 2.01 mg/dL 1.60 - 2.40 mg/dL [facility] Magnesium [Mass/Vol] 2.01 mg/dL Normal 1.60-2.40 [facility] Comment on above: Performed By: #### 5 3315-8 #### SISSY HOGAN ([id number]) [facility]) [address] [place] [address] 52067 Magnesium [Mass/Vol]on 12-02 Interpretation and review of laboratory results Normal [facility] No Panel Informationon 12-02 [facility] Basic metabolic 2000 panelon 12-01-2024 Anion gap [Moles/Vol] 13 mmol/L 10 - 2 0 mmol/L [facility] Calcium [Mass/Vol] 9.2 mg/dL 8.6 - 10. 3 mg/dL [facility] Chloride [Moles/Vol] 102 mmol/L 98 - 10 7 mmol/L [facility] CO2 [Moles/Vol] 27 mmol/L 21 - 32 mmol/L [facility] Creatinine [Mass/Vol] 0.91 mg/dL 0.50 - 1.05 mg/dL [facility] GFR/1.73 sq M.predicted among non-blacks MDRD (S/P/Bld) [Vol rate/Area] 62 mL/min/{1.73_m2} - PINF [facility] Comment on above: Calculations of ryan mated GFR are performed using the 2020 CKD-EPI Study Refit equation without the race variable for the IDMS-Traceable creatinine methods. https://jasn.asnjournals.org/content/early/ASN.48004 36739 Glucose [Mass/Vol] 100 mg/dL High 74 - 99 mg/dL [facility] Interpretation and review of laboratory results Abnormal [facility] Potassium [Moles/Vol] 3.8 mmol/L 3.5 - 5.3 mmol/L [facility] Sodium [Moles/Vol] 138 mmol/L 136 - 145 mmol/L [facility] Urea nitrogen [Mass/Vol] 19 mg/dL 6 - 23 mg/dL [facility] Anion gap [Moles/Vol] 13 mmol/L Normal 10-20 [facility] Comment on above: Performed By: #### 5 3315-8 #### SISSY HOGAN ([id number]) [facility]) [address] [place] [address] 33357 Calcium [Mass/Vol] 9.2 mg/dL Normal 8.6-10.3 [facility] Comment on above: Performed By: #### 5 3315-8 #### SISSY HOGAN ([id number]) [facility]) [address] [place] [address] 20036 Chloride [Moles/Vol] 102 mmol/L Normal 98-107 [facility] Comment on above: Performed By: #### 5 3315-8 #### SISSY HOGAN ([id number]) [facility]) [address] [place] [address] CO2 [Moles/Vol] 27 mmol/L Normal 21-32 [facility] Comment on above: Performed By: #### 5 3315-8 #### SISSY HOGAN ([id number]) [facility]) [address] [place] [address] Creatinine [Mass/Vol] 0.91 mg/dL Normal 0.50-1.05 [facility] Comment on above: Performed By: #### 5 3315-8 #### SISSY HOGAN ([id number]) [facility]) [address] [place] [address] Glomerular filtration rate/1.73 sq M.predicted 62 mL/min/1.73m*2 Normal >60 [facility] Comment on above: Result Comment: Calc ulations of estimated GFR are performed using the 2020 CKD-EPI Study Refit equation without the race variable for the IDMS-Traceable creatinine methods. https://jasn.asnjournals.org/content/early//ASN.59853 99547 Performed By: #### 5 3315-8 #### SISSY HOGAN ([id number]) [facility]) [address] [place] [address] 73277 Glucose [Mass/Vol] 100 mg/dL High 74-99 [facility] Comment on above: Performed By: #### 5 3315-8 #### SISSY HOGAN ([id number]) [facility]) [address] [place] [address] Potassium [Moles/Vol] 3.8 mmol/L Normal 3.5-5.3 [facility] Comment on above: Performed By: #### 5 3315-8 #### SISSY HOGAN ([id number]) [facility] ([facility]) [address] [place] [address] 23360 Sodium [Moles/Vol] 138 mmol/L Normal 136-145 [facility] Comment on above: Performed By: #### 5 3315-8 #### SISSY HOGAN ([id number]) [facility] ([facility]) [address] [place] [address] Urea nitrogen [Mass/Vol] 19 mg/dL Normal 6-23 [facility] Comment on above: Performed By: #### 5 3315-8 #### SISSY HOGAN ([id number]) [facility] ([facility]) [address] [place] [address] CBC panel Auto (Bld)on 12-01 Erythrocyte distribution width (RBC) [Ratio] 12.9 % 11.5 - 14.5 % [facility] Hematocrit (Bld) [Volume fraction] 33.7 % Low 36.0 - 46.0 % [facility] Hemoglobin (Bld) [Mass/Vol] 11.2 g/dL Low 12.0 - 16.0 g/dL [facility] Interpretation and review of laboratory results Abnormal [facility] MCH (RBC) [Entitic mass] 31.5 pg 26.0 - 34.0 pg [facility] MCHC (RBC) [Mass/Vol] 33.2 g/dL 32.0 - 36.0 g/dL [facility] MCV (RBC) [Entitic vol] 95 fL 80 - 100 fL [facility] Nucleated RBC/100 WBC (Bld) [Ratio] 0 % [facility] Platelets (Bld) [#/Vol] 163 10*3/uL [facility] RBC (Bld) [#/Vol] 3.55 10*6/uL Low [facility] WBC (Bld) [#/Vol] 6 10*3/uL [facility] Erythrocyte distribution width (RBC) [Ratio] 12.9 % Normal 11.5-14.5 [facility] Comment on above: Performed By: #### 3 274-8 #### SISSY HOGAN ([id number]) [facility]) [address] [place] [address] 48265 Hematocrit (Bld) [Volume fraction] 33.7 % Low 36.0-46.0 [facility] Comment on above: Performed By: #### 3 274-8 #### SISSY HOGAN ([id number]) [facility]) [address] [place] [address] 39849 Hemoglobin (Bld) [Mass/Vol] 11.2 g/dL Low 12.0-16.0 [facility] Comment on above: Performed By: #### 3 274-8 #### SISSY HOGAN ([id number]) [facility]) [address] [place] [address] 22200 MCH (RBC) [Entitic mass] 31.5 pg Normal 26.0-34.0 [facility] Comment on above: Performed By: #### 3 274-8 #### SISSY HOGAN ([id number]) [facility] ([facility]) [address] [place] [address] 31025 MCHC (RBC) [Mass/Vol] 33.2 g/dL Normal 32.0-36.0 [facility] Comment on above: Performed By: #### 3 274-8 #### SISSY HOGAN ([id number]) [facility] ([facility]) [address] [place] [address] 45193 MCV (RBC) [Entitic vol] 95 fL Normal 80-100 [facility] Comment on above: Performed By: #### 3 274-8 #### SISSY HOGAN ([id number]) [facility] ([facility]) [address] [place] [address] 57558 Nucleated RBC/100 WBC (Bld) [Ratio] 0.0 /100 WBCs Normal 0.0-0.0 [facility] Comment on above: Performed By: #### 3 274-8 #### SISSY HOGAN ([id number]) [facility] ([facility]) [address] [place] [address] 09079 Platelets (Bld) [#/Vol] 163 x10*3/uL Normal 150-450 [facility] Comment on above: Performed By: #### 3 274-8 #### SISSY HOGAN ([id number]) [facility] ([facility]) [address] [place] [address] 07926 RBC (Bld) [#/Vol] 3.55 x10*6/uL Low 4.00-5.20 [facility] Comment on above: Performed By: #### 3 274-8 #### SISSY HOGAN ([id number]) [facility] ([facility]) [address] [place] [address] 26701 WBC (Bld) [#/Vol] 6.0 x10*3/uL Normal 4.4-11.[address] [facility] Comment on above: Performed By: #### 3 274-8 #### SISSY HOGAN ([id number]) [facility] ([facility]) [address] [place] [address] 62941 Erythrocyte distribution width (RBC) [Ratio] 13.1 % 11.5 - 14.5 % [facility] Hematocrit (Bld) [Volume fraction] 32.8 % Low 36.0 - 46.0 % [facility] Hemoglobin (Bld) [Mass/Vol] 11.2 g/dL Low 12.0 - 16.0 g/dL [facility] Interpretation and review of laboratory results Abnormal [facility] MCH (RBC) [Entitic mass] 32.2 pg 26.0 - 34.0 pg [facility] MCHC (RBC) [Mass/Vol] 34.1 g/dL 32.0 - 36.0 g/dL [facility] MCV (RBC) [Entitic vol] 94 fL 80 - 100 fL [facility] Nucleated RBC/100 WBC (Bld) [Ratio] 0 % [facility] Platelets (Bld) [#/Vol] 152 10*3/uL [facility] RBC (Bld) [#/Vol] 3.48 10*6/uL Low [facility] WBC (Bld) [#/Vol] 6.6 10*3/uL [facility] Erythrocyte distribution width (RBC) [Ratio] 13.1 % Normal 11.5-14.5 [facility] Comment on above: Performed By: #### 3 274-8 #### SISSY HOGAN ([id number]) [facility] ([facility]) [address] [place] [address] 76493 Hematocrit (Bld) [Volume fraction] 32.8 % Low 36.0-46.0 [facility] Comment on above: Performed By: #### 3 274-8 #### SISSY HOGAN ([id number]) [facility] ([facility]) [address] [place] [address] 01964 Hemoglobin (Bld) [Mass/Vol] 11.2 g/dL Low 12.0-16.0 [facility] Comment on above: Performed By: #### 3 274-8 #### SISSY HOGAN ([id number]) [facility] ([facility]) [address] [place] [address] 14510 MCH (RBC) [Entitic mass] 32.2 pg Normal 26.0-34.0 [facility] Comment on above: Performed By: #### 3 274-8 #### SISSY HOGAN ([id number]) [facility] ([facility]) [address] [place] [address] 01413 MCHC (RBC) [Mass/Vol] 34.1 g/dL Normal 32.0-36.0 [facility] Comment on above: Performed By: #### 3 274-8 #### SISSY HOGAN ([id number]) [facility] ([facility]) [address] [place] [address] 10184 MCV (RBC) [Entitic vol] 94 fL Normal 80-100 [facility] Comment on above: Performed By: #### 3 274-8 #### SISSY HOGAN ([id number]) [facility] ([facility]) [address] [place] [address] 24995 Nucleated RBC/100 WBC (Bld) [Ratio] 0.0 /100 WBCs Normal 0.0-0.0 [facility] Comment on above: Performed By: #### 3 274-8 #### SISSY HOGAN ([id number]) [facility] ([facility]) [address] [place] [address] 03231 Platelets (Bld) [#/Vol] 152 x10*3/uL Normal 150-450 [facility] Comment on above: Performed By: #### 3 274-8 #### SISSY HOGAN ([id number]) [facility] ([facility]) [address] [place] [address] 63397 RBC (Bld) [#/Vol] 3.48 x10*6/uL Low 4.00-5.20 [facility] Comment on above: Performed By: #### 3 274-8 #### SISSY HOGAN ([id number]) [facility] ([facility]) [address] [place] [address] 80965 WBC (Bld) [#/Vol] 6.6 x10*3/uL Normal 4.4-11.[address] [facility] Comment on above: Performed By: #### 3 274-8 #### SISSY HOGAN ([id number]) [facility] ([facility]) [address] [place] [address] 05320 ECG 12-LEADon 12-01-2024 ECG 12-LEAD Ventricular Rate 61 Atrial Rate 61 P-R Interval 168 QRS Duration 88 Q-T Interval 438 QTC Calculation(Bazett) 440 P Warba 27 R Warba 50 T Warba 85 QRS Count 10 Q Onset 217 P Onset 133 P Offset 176 T Offset 436 QTC Fredericia 440 Diagnosis Normal sinus rhythm Normal ECG When compared with ECG of 30-NOV-2024 18:38, (unconfirmed) Aberrant conduction is no longer Present Confirmed by Chay Manuel ([id number]) on 12/03/2024 3:25:26 PM Normal [facility] Heparin Assayon 12-01-2024 Heparin unfractionated Chromogenic method Qn (PPP) 0.4 [facility] Heparin Assay, UFHon 025 Heparin unfractionated Chromogenic method Qn (PPP) 0.5 [facility] Heparin unfractionated Chrom ogenic method Qn (PPP)on 12-01-2024 Interpretation and review of laboratory results Normal [facility] The therapeutic reference range for UFH may be either 0.3-0.6 IU/mL or 0.3-0.7 IU/mL based on the clinical setting for anticoagulant therapy and the associated nomogram used. For Heparin dosing guidelines based on clinical scenario and Heparin Assay results, please refer to local Pharmacy and the [facility] Guidelines for Anticoagulation Therapy available on the [facility] intranet at: [email or web address] [email or web address]/Pharmacy/P ages/[place] ls_Guidelines_for_Antic oagu.aspx [facility] Interpretation and review of laboratory results Normal [facility] The therapeutic reference range for UFH may be either 0.3-0.6 IU/mL or 0.3-0.7 IU/mL based on the clinical setting for anticoagulant therapy and the associated nomogram used. For Heparin dosing guidelines based on clinical scenario and Heparin Assay results, please refer to local Pharmacy and the [facility] Guidelines for Anticoagulation Therapy available on the [facility] intranet at: [email or web address]://[email or web address].[email or web address] [employer].[email or web address]/Pharmacy/P ages/[place] ls_Guidelines_for_Antic oagu.aspx [facility] Heparin.unfractionatedon Heparin unfractionated Chromogenic method Qn (PPP) 0.4 IU/mL Normal See Comment Below for Therapeutic Ranges [facility] Comment on above: Order Comment: The t herapeutic reference range for UFH may be either 0.3-0.6 IU/mL or 0.3-0.7 IU/mL based on the clinical setting for anticoagulant therapy and the associated nomogram used. For Heparin dosing guidelines based on clinical scenario and Heparin Assay results, please refer to local Pharmacy and the [facility] Guidelines for Anticoagulation Therapy available on the [facility] intranet at: [email or web address]/Pharmacy/Pages/[place]_ ospitals_Guidelines_for_Anticoagu.aspx Performed By: #### 5 3315-8 #### SISSY HOGAN ([id number]) [facility] ([facility] [address] [place] [address] Heparin unfractionated Chromogenic method Qn (PPP) 0.5 IU/mL Normal See Comment Below for Therapeutic Ranges [facility] Comment on above: Order Comment: The t herapeutic reference range for UFH may be either 0.3-0.6 IU/mL or 0.3-0.7 IU/mL based on the clinical setting for anticoagulant therapy and the associated nomogram used. For Heparin dosing guidelines based on clinical scenario and Heparin Assay results, please refer to local Pharmacy and the [facility] Guidelines for Anticoagulation Therapy available on the [facility] intranet at: [email or web address]/Pharmacy/Pages/[place]_ ospitals_Guidelines_for_Anticoagu.aspx Performed By: #### 3 274-8 #### SISSY HOGAN ([id number]) [facility] [place] [address] [place] [address] Magnesiumon 12-01-2024 Magnesium [Mass/Vol] 1.93 mg/dL 1.60 - 2.40 mg/dL [facility] Magnesium [Mass/Vol] 1.93 mg/dL Normal 1.60-2.40 [facility] Comment on above: Performed By: #### 5 3315-8 #### SISSY HOGAN ([id number]) [facility] [place] [address] [place] [address] Magnesium [Mass/Vol]on 12-01 Interpretation and review of laboratory results Normal [facility] No Panel Informationon 12-01 [facility] CBC W Auto Differential pane l (Bld)on 11-30-2024 Basophils (Bld) [#/Vol] 0.04 10*3/uL [facility] Basophils/100 WBC (Bld) 0.7 % 0.0 - 2.0 % [facility] Eosinophils (Bld) [#/Vol] 0.19 10*3/uL [facility] Eosinophils/100 WBC (Bld) 3.5 % 0.0 - 6.0 % [facility] Erythrocyte distribution width (RBC) [Ratio] 13.2 % 11.5 - 14.5 % [facility] Hematocrit (Bld) [Volume fraction] 34.1 % Low 36.0 - 46.0 % [facility] Hemoglobin (Bld) [Mass/Vol] 11.3 g/dL Low 12.0 - 16.0 g/dL [facility] Immature granulocytes (Bld) [#/Vol] 0.01 10*3/uL [facility] Immature granulocytes/100 WBC (Bld) 0.2 % 0.0 - 0.9 % [facility] Comment on above: Immature Granulocyte Count (IG) includes promyelocytes, myelocytes and metamyelocytes but does not include bands. Percent differential counts (%) should be interpreted in the context of the absolute cell counts (cells/UL). Interpretation and review of laboratory results Abnormal [facility] Lymphocytes (Bld) [#/Vol] 1.84 10*3/uL [facility] Lymphocytes/100 WBC (Bld) 33.6 % 13.0 - 44.0 % [facility] MCH (RBC) [Entitic mass] 31.5 pg 26.0 - 34.0 pg [facility] MCHC (RBC) [Mass/Vol] 33.1 g/dL 32.0 - 36.0 g/dL [facility] MCV (RBC) [Entitic vol] 95 fL 80 - 100 fL [facility] Monocytes (Bld) [#/Vol] 0.68 10*3/uL [facility] Monocytes/100 WBC (Bld) 12.4 % 2.0 - 10.0 % [facility] Neutrophils (Bld) [#/Vol] 2.72 10*3/uL [facility] Comment on above: Percent differential counts (%) should be interpreted in the context of the absolute cell counts (cells/uL). Neutrophils/100 WBC (Bld) 49.6 % 40.0 - 80.0 % [facility] Nucleated RBC/100 WBC (Bld) [Ratio] 0 % [facility] Platelets (Bld) [#/Vol] 147 10*3/uL Low [facility] RBC (Bld) [#/Vol] 3.59 10*6/uL [facility] WBC (Bld) [#/Vol] 5.5 10*3/uL [facility] Basophils (Bld) [#/Vol] 0.04 x10*3/uL Normal 0.00-0.10 [facility] Comment on above: Performed By: #### 5 7021-8 #### SISSY HOGAN ([id number]) [facility] ([facility]) [address] [place] [address] 94830 Basophils/100 WBC (Bld) 0.7 % Normal 0.0-2.0 [facility] Comment on above: Performed By: #### 5 7021-8 #### SISSY HOGAN ([id number]) [facility] ([facility]) [address] [place] [address] 51208 Eosinophils (Bld) [#/Vol] 0.19 x10*3/uL Normal 0.00-0.40 [facility] Comment on above: Performed By: #### 5 7021-8 #### SISSY HOGAN ([id number]) [facility] ([facility]) [address] [place] [address] 13457 Eosinophils/100 WBC (Bld) 3.5 % Normal 0.0-6.0 [facility] Comment on above: Performed By: #### 5 7021-8 #### SISSY HOGAN ([id number]) [facility] ([facility]) [address] [place] [address] 30631 Erythrocyte distribution width (RBC) [Ratio] 13.2 % Normal 11.5-14.5 [facility] Comment on above: Performed By: #### 5 7021-8 #### SISSY HOGAN ([id number]) [facility] ([facility]) [address] [place] [address] 46106 Hematocrit (Bld) [Volume fraction] 34.1 % Low 36.0-46.0 [facility] Comment on above: Performed By: #### 5 7021-8 #### SISSY HOGAN ([id number]) [facility] ([facility]) [address] [place] [address] 15740 Hemoglobin (Bld) [Mass/Vol] 11.3 g/dL Low 12.0-16.0 [facility] Comment on above: Performed By: #### 5 7021-8 #### SISSY HOGAN ([id number]) [facility] ([facility]) [address] [place] [address] 22883 Immature granulocytes (Bld) [#/Vol] 0.01 x10*3/uL Normal 0.00-0.50 [facility] Comment on above: Performed By: #### 5 7021-8 #### SISSY HOGAN ([id number]) [facility] ([facility]) [address] [place] [address] 29724 Immature granulocytes/100 WBC (Bld) 0.2 % Normal 0.0-0.9 [facility] Comment on above: Result Comment: Stacy ture Granulocyte Count (IG) includes promyelocytes, myelocytes and metamyelocytes but does not include bands. Percent differential counts (%) should be interpreted in the context of the absolute cell counts (cells/UL). Performed By: #### 5 7021-8 #### SISSY HOGAN ([id number]) [facility] ([facility]) [address] [place] [address] 66405 Lymphocytes (Bld) [#/Vol] 1.84 x10*3/uL Normal 0.80-3.00 [facility] Comment on above: Performed By: #### 5 7021-8 #### SISSY HOGAN ([id number]) [facility] ([facility]) [address] [place] [address] 24288 Lymphocytes/100 WBC (Bld) 33.6 % Normal 13.0-44.0 [facility] Comment on above: Performed By: #### 5 7021-8 #### SISSY HOGAN ([id number]) [facility] ([facility]) [address] [place] [address] 19286 MCH (RBC) [Entitic mass] 31.5 pg Normal 26.0-34.0 [facility] Comment on above: Performed By: #### 5 7021-8 #### SISSY HOGAN ([id number]) [facility] ([facility]) [address] [place] [address] 29560 MCHC (RBC) [Mass/Vol] 33.1 g/dL Normal 32.0-36.0 [facility] Comment on above: Performed By: #### 5 7021-8 #### SISSY HOGAN ([id number]) [facility] ([facility]) [address] [place] [address] 17331 MCV (RBC) [Entitic vol] 95 fL Normal 80-100 [facility] Comment on above: Performed By: #### 5 7021-8 #### SISSY HOGAN ([id number]) [facility] ([facility]) [address] [place] [address] 66731 Monocytes (Bld) [#/Vol] 0.68 x10*3/uL Normal 0.05-0.80 [facility] Comment on above: Performed By: #### 5 7021-8 #### SISSY HOGAN ([id number]) [facility] ([facility]) [address] [place] [address] 40937 Monocytes/100 WBC (Bld) 12.4 % Normal 2.0-10.0 [facility] Comment on above: Performed By: #### 5 7021-8 #### SISSY HOGAN ([id number]) [facility] ([facility]) [address] [place] [address] 66198 Neutrophils (Bld) [#/Vol] 2.72 x10*3/uL Normal 1.60-5.50 [facility] Comment on above: Result Comment: Perc ent differential counts (%) should be interpreted in the context of the absolute cell counts (cells/uL). Performed By: #### 5 7021-8 #### SISSY HOGAN ([id number]) [facility] ([facility]) [address] [place] [address] 11996 Neutrophils/100 WBC (Bld) 49.6 % Normal 40.0-80.0 [facility] Comment on above: Performed By: #### 5 7021-8 #### SISSY HOGAN ([id number]) [facility] ([facility]) [address] [place] [address] 83178 Nucleated RBC/100 WBC (Bld) [Ratio] 0.0 /100 WBCs Normal 0.0-0.0 [facility] Comment on above: Performed By: #### 5 7021-8 #### SISSY HOGAN ([id number]) [facility] ([facility]) [address] [place] [address] 27535 Platelets (Bld) [#/Vol] 147 x10*3/uL Low 150-450 [facility] Comment on above: Performed By: #### 5 7021-8 #### SISSY HOGAN ([id number]) [facility] ([facility]) [address] [place] [address] 19306 RBC (Bld) [#/Vol] 3.59 x10*6/uL Low 4.00-5.20 [facility] Comment on above: Performed By: #### 5 7021-8 #### SISSY HOGAN ([id number]) [facility] ([facility]) [address] [place] [address] 12057 WBC (Bld) [#/Vol] 5.5 x10*3/uL Normal 4.4-11.[address] [facility] Comment on above: Performed By: #### 5 7021-8 #### SISSY HOGAN ([id number]) [facility] ([facility]) [address] [place] [address] Chest WO contraston 11-30 1. Normal caliber ascending aorta with the [...] Fleischner Society 2017, Radiology. 2017 Efren;284 (1):228-243.) [email or web address] Signed by: Jonas Baxter 11/30/2024 8:56 AM Dictation workstation: [id number] [facility] Interpreted By: Jonas Baxter, STUDY: CT CHEST WO IV CONTRAST; 11/29/2024 5:38 pm INDICATION: Signs/Symptoms:pre-op cardiac surgery; assess ascending for size and atherosclerosis. COMPARISON: None. ACCESSION NUMBER(S): [id number] ORDERING CLINICIAN: IRINEO LAUGHLIN TECHNIQUE: Helical data [...] for thoracic aggressive osteolytic or osteoblastic lesion. [facility] Jonas Baxter MD - 11/30/2024 Interpreted By: Jonas Baxter, STUDY: CT CHEST WO IV CONTRAST; 11/29/2024 5:38 pm INDICATION: Signs/Symptoms:pre-op cardiac surgery; assess ascending for size and atherosclerosis. COMPARISON: None. ACCESSION NUMBER(S): [id number] ORDERING CLINICIAN: IRINEO LAUGHLIN TECHNIQUE: Helical data [...] Jonas Baxter 11/30/2024 8:56 AM Dictation workstation: [id number] [facility] Work Phone: [facility] Work Phone: Comprehensive metabolic 2000 panelon 11-30-2024 Albumin BCP dye [Mass/Vol] 3.8 g/dL 3.4 - 5.0 g/dL [facility] ALP [Catalytic activity/Vol] 42 U/L 33 - 136 U/L [facility] ALT With P-5'-P [Catalytic activity/Vol] 10 U/L 7 - 45 U/L [facility] Comment on above: Patients treated wit h Sulfasalazine may generate falsely decreased results for ALT. Anion gap [Moles/Vol] 11 mmol/L 10 - 2 0 mmol/L [facility] AST With P-5'-P [Catalytic activity/Vol] 15 U/L 9 - 39 U/L [facility] Bilirubin [Mass/Vol] 0.8 mg/dL 0.0 - 1 .2 mg/dL [facility] Calcium [Mass/Vol] 9.3 mg/dL 8.6 - 10. 3 mg/dL [facility] Chloride [Moles/Vol] 104 mmol/L 98 - 10 7 mmol/L [facility] CO2 [Moles/Vol] 27 mmol/L 21 - 32 mmol/L [facility] Creatinine [Mass/Vol] 0.71 mg/dL 0.50 - 1.05 mg/dL [facility] GFR/1.73 sq M.predicted among non-blacks MDRD (S/P/Bld) [Vol rate/Area] 83 mL/min/{1.73_m2} - PINF [facility] Comment on above: Calculations of ryan mated GFR are performed using the 2020 CKD-EPI Study Refit equation without the race variable for the IDMS-Traceable creatinine methods. https://jasn.asnjournals.org/content//ASN.32040 20729 Glucose [Mass/Vol] 107 mg/dL High 74 - 99 mg/dL [facility] Interpretation and review of laboratory results Abnormal [facility] Potassium [Moles/Vol] 3.8 mmol/L 3.5 - 5.3 mmol/L [facility] Protein [Mass/Vol] 6 g/dL Low 6.4 - 8.2 g/dL [facility] Sodium [Moles/Vol] 138 mmol/L 136 - 145 mmol/L [facility] Urea nitrogen [Mass/Vol] 16 mg/dL 6 - 23 mg/dL [facility] Albumin BCP dye [Mass/Vol] 3.8 g/dL Normal 3.4-5.0 [facility] Comment on above: Performed By: #### 2 4323-8 #### SISSY HOGAN ([id number]) [facility] ([facility]) [address] [place] [address] 48545 ALP [Catalytic activity/Vol] 42 U/L Normal 33-136 [facility] Comment on above: Performed By: #### 2 4323-8 #### SISSY HOGAN ([id number]) [facility] ([facility]) [address] [place] [address] 04818 ALT With P-5'-P [Catalytic activity/Vol] 10 U/L Normal 7-45 [facility] Comment on above: Result Comment: Keely ents treated with Sulfasalazine may generate falsely decreased results for ALT. Performed By: #### 2 4323-8 #### SISSY HOGAN ([id number]) [facility] ([facility]) [address] [place] [address] 76981 Anion gap [Moles/Vol] 11 mmol/L Normal 10-20 [facility] Comment on above: Performed By: #### 2 4323-8 #### SISSY HOGAN ([id number]) [facility] ([facility]) [address] [place] [address] 41423 AST With P-5'-P [Catalytic activity/Vol] 15 U/L Normal 9-39 [facility] Comment on above: Performed By: #### 2 4323-8 #### SISSY HOGAN ([id number]) [facility] ([facility]) [address] [place] [address] 16753 Bilirubin [Mass/Vol] 0.8 mg/dL Normal 0.0-1.2 [facility] Comment on above: Performed By: #### 2 4323-8 #### KAYIBGABRIEL HOGAN ([id number]) [facility] ([facility]) [address] [place] [address] 73398 Calcium [Mass/Vol] 9.3 mg/dL Normal 8.6-10.3 [facility] Comment on above: Performed By: #### 2 4323-8 #### SISSY HOGAN ([id number]) [facility] ([facility]) [address] [place] [address] Chloride [Moles/Vol] 104 mmol/L Normal 98-107 [facility] Comment on above: Performed By: #### 2 4323-8 #### SISSY HOGAN ([id number]) [facility] ([facility]) [address] [place] [address] CO2 [Moles/Vol] 27 mmol/L Normal 21-32 [facility] Comment on above: Performed By: #### 2 4323-8 #### SISSY HOGAN ([id number]) [facility] ([facility]) [address] [place] [address] 76800 Creatinine [Mass/Vol] 0.71 mg/dL Normal 0.50-1.05 [facility] Comment on above: Performed By: #### 2 4323-8 #### SISSY HOGAN ([id number]) [facility] ([facility]) [address] [place] [address] 14533 Glomerular filtration rate/1.73 sq M.predicted 83 mL/min/1.73m*2 Normal >60 [facility] Comment on above: Result Comment: Calc ulations of estimated GFR are performed using the 2020 CKD-EPI Study Refit equation without the race variable for the IDMS-Traceable creatinine methods. https://jasn.asnjournals.org/content//ASN.78259 37653 Performed By: #### 2 4323-8 #### SISSY HOGAN ([id number]) [facility] ([facility]) [address] [place] [address] Glucose [Mass/Vol] 107 mg/dL High 74-99 [facility] Comment on above: Performed By: #### 2 4323-8 #### SISSY HOGAN ([id number]) [facility] ([facility]) [address] [place] [address] Potassium [Moles/Vol] 3.8 mmol/L Normal 3.5-5.3 [facility] Comment on above: Performed By: #### 2 4323-8 #### SISSY HOGAN ([id number]) [facility] ([facility]) [address] [place] [address] Protein [Mass/Vol] 6.0 g/dL Low 6.4-8.2 [facility] Comment on above: Performed By: #### 2 4323-8 #### KAYIBGABRIEL HOGAN ([id number]) [facility] ([facility]) [address] [place] [address] Sodium [Moles/Vol] 138 mmol/L Normal 136-145 [facility] Comment on above: Performed By: #### 2 4323-8 #### SISSY HOGAN ([id number]) [facility] ([facility]) [address] [place] [address] Urea nitrogen [Mass/Vol] 16 mg/dL Normal 6-23 [facility] Comment on above: Performed By: #### 2 4323-8 #### SISSY HOGAN ([id number]) [facility] ([facility]) [address] [place] [address] ECG 12-LEADon 11-30-2024 ECG 12-LEAD Ventricular Rate 67 Atrial Rate 67 P-R Interval 196 QRS Duration 86 Q-T Interval 440 QTC Calculation(Bazett) 464 P Warba 49 R Warba 15 T Warba 82 QRS Count 11 Q Onset 217 P Onset 119 P Offset 180 T Offset 437 QTC Fredericia 456 Diagnosis Sinus rhythm with Premature ventricular complexes Otherwise normal ECG When compared with ECG of 30-NOV-2024 08:54, (unconfirmed) No significant change was found Confirmed by Chay Manuel ([id number]) on 12/03/2024 3:19:53 PM Normal [facility] ECG 12-LEAD Ventricular Rate 78 Atrial Rate 78 P-R Interval 192 QRS Duration 88 Q-T Interval 414 QTC Calculation(Bazett) 471 P Warba 81 R Warba 63 T Warba 88 QRS Count 13 Q Onset 220 P Onset 124 P Offset 181 T Offset 427 QTC Fredericia 451 Diagnosis Sinus rhythm with occasional Premature ventricular complexes Otherwise normal ECG No previous ECGs available Confirmed by Chay Manuel ([id number]) on 12/03/2024 3:09:36 PM Normal [facility] Heparin Assayon 11-30-2024 Heparin unfractionated Chromogenic method Qn (PPP) 0.5 [facility] Heparin unfractionated Chromogenic method Qn (PPP) 0.8 [facility] Heparin unfractionated Chromogenic method Qn (PPP) 0.8 [facility] Heparin AssayOrdered By: Willis Pena on 11-30-2024 Heparin unfractionated Chromogenic method Qn (PPP) 0.5 [facility] Heparin unfractionated Chrom ogenic method Qn (PPP)on 11-30-2024 Interpretation and review of laboratory results Normal [facility] The therapeutic reference range for UFH may be either 0.3-0.6 IU/mL or 0.3-0.7 IU/mL based on the clinical setting for anticoagulant therapy and the associated nomogram used. For Heparin dosing guidelines based on clinical scenario and Heparin Assay results, please refer to local Pharmacy and [facility] Guidelines for Anticoagulation Therapy available on the [facility] intranet at: https://MOVE [facility] Nektar Therapeuticss.org/Pharmacy/P ages/[place] ls_Guidelines_for_Antic oagu.aspx [facility] Interpretation and review of laboratory results Normal [facility] The therapeutic reference range for UFH may be either 0.3-0.6 IU/mL or 0.3-0.7 IU/mL based on the clinical setting for anticoagulant therapy and the associated nomogram used. For Heparin dosing guidelines based on clinical scenario and Heparin Assay results, please refer to local Pharmacy and [facility] Guidelines for Anticoagulation Therapy available on the [facility] intranet at: https://MOVE [facility] Nektar Therapeuticss.org/Pharmacy/P ages/[place] ls_Guidelines_for_Antic oagu.aspx [facility] Interpretation and review of laboratory results Normal [facility] The therapeutic reference range for UFH may be either 0.3-0.6 IU/mL or 0.3-0.7 IU/mL based on the clinical setting for anticoagulant therapy and the associated nomogram used. For Heparin dosing guidelines based on clinical scenario and Heparin Assay results, please refer to local Pharmacy and the [facility] Guidelines for Anticoagulation Therapy available on the [facility] intranet at: https://comAlly Home [facility] ind[facility] hospitalAlnara Pharmaceuticalss.org/Pharmacy/P ages/[place] ls_Guidelines_for_Antic oagu.aspx [facility] Heparin unfractionated Chrom ogenic method Qn (PPP)Ordered By: Aidan Pena on 11-30-2024 Interpretation and review of laboratory results Normal [facility] The therapeutic reference range for UFH may be either 0.3-0.6 IU/mL or 0.3-0.7 IU/mL based on the clinical setting for anticoagulant therapy and the associated nomogram used. For Heparin dosing guidelines based on clinical scenario and Heparin Assay results, please refer to local Pharmacy and the [facility] Guidelines for Anticoagulation Therapy available on the [facility] intranet at: https://MOVE [facility]owellBuzzients.org/Pharmacy/P ages/[place] ls_Guidelines_for_Antic oagu.aspx [facility] Heparin.unfractionatedon Heparin unfractionated Chromogenic method Qn (PPP) 0.5 IU/mL Normal See Comment Below for Therapeutic Ranges [facility] Comment on above: Order Comment: The t herapeutic reference range for UFH may be either 0.3-0.6 IU/mL or 0.3-0.7 IU/mL based on the clinical setting for anticoagulant therapy and the associated nomogram used. For Heparin dosing guidelines based on clinical scenario and Heparin Assay results, please refer to local Pharmacy and the [facility] Guidelines for Anticoagulation Therapy available on the [facility] intranet at: https://[facility].org/Pharmacy/Pages/[place]_[facility]_Guidelines_for_Anticoagu.aspx Performed By: #### 3 274-8 #### SISSY HOGAN ([id number]) [facility] ([facility]) [address] [place] [address] Heparin unfractionated Chromogenic method Qn (PPP) 0.5 IU/mL Normal See Comment Below for Therapeutic Ranges [facility] Comment on above: Order Comment: The t herapeutic reference range for UFH may be either 0.3-0.6 IU/mL or 0.3-0.7 IU/mL based on the clinical setting for anticoagulant therapy and the associated nomogram used. For Heparin dosing guidelines based on clinical scenario and Heparin Assay results, please refer to local Pharmacy and the [facility] Guidelines for Anticoagulation Therapy available on the [facility] intranet at: https://[facility]/Pharmacy/Pages/[place]_ ospitals_Guidelines_for_Anticoagu.aspx Performed By: #### 3 274-8 #### SISSY HOGAN ([id number]) [facility] ([facility] [address] [place] [address] Heparin unfractionated Chromogenic method Qn (PPP) 0.8 IU/mL Normal See Comment Below for Therapeutic Ranges [facility] Comment on above: Order Comment: The t herapeutic reference range for UFH may be either 0.3-0.6 IU/mL or 0.3-0.7 IU/mL based on the clinical setting for anticoagulant therapy and the associated nomogram used. For Heparin dosing guidelines based on clinical scenario and Heparin Assay results, please refer to local Pharmacy and the [facility] Guidelines for Anticoagulation Therapy available on the [facility] intranet at: https://[facility]/Pharmacy/Pages/[place]_ ospitals_Guidelines_for_Anticoagu.aspx Performed By: #### 3 274-8 #### SISSY HOGAN ([id number]) [facility] ([facility] [address] [place] [address] Heparin unfractionated Chromogenic method Qn (PPP) 0.8 IU/mL Normal See Comment Below for Therapeutic Ranges [facility] Comment on above: Order Comment: The t herapeutic reference range for UFH may be either 0.3-0.6 IU/mL or 0.3-0.7 IU/mL based on the clinical setting for anticoagulant therapy and the associated nomogram used. For Heparin dosing guidelines based on clinical scenario and Heparin Assay results, please refer to local Pharmacy and the [facility] Guidelines for Anticoagulation Therapy available on the [facility] intranet at: https://[facility].org/Pharmacy/Pages/[place]_[facility]_Guidelines_for_Anticoagu.aspx Performed By: #### 3 274-8 #### SISSY MITCHELL RIO EDIN ([id number]) [facility] ([facility]) [address] [place] [address] Lower extremity vein mapping bilateralon 11-30-2024 Interpreted By: Jonas Baxter, STUDY: [facility] US LOWER EXTREMITY VEIN MAPPING BILATERAL; ; 11/29/2024 5:34 pm INDICATION: Signs/Symptoms:pre-op CABG. 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 ACCESSION NUMBER(S): [id number] ORDERING CLINICIAN: IRINEO LAUGHLIN TECHNIQUE: Sonographic lower [...] 0.10 x 0.11; distal 0.17 x 0.26 [facility] Jonas Baxter MD - 11/30/2024 Interpreted By: Jonas Baxter, STUDY: [facility] US LOWER EXTREMITY VEIN MAPPING BILATERAL; ; 11/29/2024 5:34 pm INDICATION: Signs/Symptoms:pre-op CABG. 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 ACCESSION NUMBER(S): [id number] ORDERING CLINICIAN: IRINEO LAUGHLIN TECHNIQUE: Sonographic lower [...] Jonas Baxter 11/30/2024 8:39 AM Dictation workstation: [id number] [facility] Work Phone: [facility] Work Phone: Magnesiumon 11-30-2024 Magnesium [Mass/Vol] 1.98 mg/dL 1.60 - 2.40 mg/dL [facility] Magnesium [Mass/Vol] 1.98 mg/dL Normal 1.60-2.40 [facility] Comment on above: Performed By: #### 1 9123-9 #### SISSY HOGAN ([id number]) [facility] ([facility]) [address] [place] [address] Magnesium [Mass/Vol]on 11-30 Interpretation and review of laboratory results Normal [facility] No Panel InformationOrdered By: Doron Louis on 11-30-2024 [facility] PT and aPTT panel Coag (PPP) Ordered By: Doron Louis on 11-30-2024 aPTT Coag (PPP) [Time] 129 s Critically high [facility] INR Coag (PPP) [Relative time] 1 {INR} 0.9 - 1.1 [facility] Interpretation and review of laboratory results Abnormal [facility] PT Coag (PPP) [Time] 11.3 s [facility] The APTT is no longe r used for monitoring Unfractionated Heparin Therapy. For monitoring Heparin Therapy, use the Heparin Assay. [facility] PT and aPTT panel Coag (PPP) on 11-30-2024 aPTT Coag (PPP) [Time] 129 s Critically high 26-36 [facility] Comment on above: Order Comment: The A PTT is no longer used for monitoring Unfractionated Heparin Therapy. For monitoring Heparin Therapy, use the Heparin Assay. Performed By: #### 3 4529-8 #### SISSY HOGAN ([id number]) [facility] ([facility]) [address] [place] [address] INR Coag (PPP) [Relative time] 1.0 Normal 0.9-1.1 [facility] Comment on above: Order Comment: The A PTT is no longer used for monitoring Unfractionated Heparin Therapy. For monitoring Heparin Therapy, use the Heparin Assay. Performed By: #### 3 4529-8 #### SISSY HOGAN ([id number]) [facility] ([facility]) [address] [place] [address] PT Coag (PPP) [Time] 11.3 s Normal 9.8-12.4 [facility] Comment on above: Order Comment: The A PTT is no longer used for monitoring Unfractionated Heparin Therapy. For monitoring Heparin Therapy, use the Heparin Assay. Performed By: #### 3 4529-8 #### SISSY HOGAN ([id number]) [facility] ([facility]) [address] [place] [address] SST TOPon 11-30-2024 Extra Tube Hold for add-ons. [facility] Comment on above: Auto resulted. [facility] Extra Tube Hold for add-ons. [facility] Comment on above: Auto resulted. [facility] TSH WITH REFLEX TO FREE T4 I F ABNORMALon 11-30-2024 TSH Qn 1.43 m[IU]/L Normal 0.44-3.98 [facility] Comment on above: Order Comment: TSH t esting is performed using different testing methodology at [facility] than at other [facility]. Direct result comparisons should only be made within the same method. Performed By: #### T HYDS #### SISSY HOGAN ([id number]) [facility] ([facility] [address] [place] [address] TSH with reflex to Free T4 i f abnormalon 11-30-2024 Interpretation and review of laboratory results Normal [facility] TSH Qn 1.43 m[IU]/L [facility] TSH testing is performed using different testing methodology at [facility] than at other [facility]. Direct result comparisons should only be made within the same method. [facility] Tropinin I.cardiac panel Hig h sensitivity methodon 11-30-2024 Interpretation and review of laboratory results Abnormal [facility] Less than 99th percentile of normal range [...] performed using a different testing methodology at [facility] than at other [facility]. Direct result comparisons should only be made within the same method. [facility] Troponin I, High Sensitivity on 11-30-2024 Tropinin I.cardiac panel High sensitivity method 65 ng/L Critically high 0 - 13 ng/L [facility] Troponin I.cardiac panelon 0 11-30-2024 Tropinin I.cardiac panel High sensitivity method 65 ng/L Critically high 0-13 [facility] Comment on above: Order Comment: The t herapeutic reference range for UFH may be either 0.3-0.6 IU/mL or 0.3-0.7 IU/mL based on the clinical setting for anticoagulant therapy and the associated nomogram used. For Heparin dosing guidelines based on clinical scenario and Heparin Assay results, please refer to local Pharmacy and the [facility] Guidelines for Anticoagulation Therapy available on the [facility] intranet at: https://[facility]id[facility].org/Pharmacy/Pages/[place]_ ospitals_Guidelines_for_Anticoagu.aspx Performed By: #### 3 274-8 #### SISSY HOGAN ([id number]) [facility] ([facility]) [address] [place] [address] [place].doppler Carotid arteries - bilateralon 11-30-2024 Positive for calcifi c plaque bilaterally of both proximal internal carotid arteries. However no peak systolic velocity elevation to suggest significant stenosis. Less than 50% luminal narrowing. The velocity criteria are extrapolated from diameter data as defined by the Society of Radiologists in Ultrasound Consensus Conference Radiology 2003; 229;340-346. MACRO: None Signed by: Jonas Baxter 11/30/2024 8:23 AM Dictation workstation: [id number] MMODAL Interpreted By: Jonas Baxter, STUDY: [facility] US CAROTID ARTERY DUPLEX BILATERAL; 11/29/2024 5:34 pm INDICATION: Signs/Symptoms:pre-op cardiac surgery. ,Z01.810 Encounter for preprocedural cardiovascular examination,Z09 Encounter for follow-up examination after completed treatment for conditions other than malignant neoplasm COMPARISON: None. ACCESSION NUMBER(S): [id number] ORDERING CLINICIAN: IRINEO LAUGHLIN TECHNIQUE: Vascular ultrasound [...] is 1.9. LEFT VERTEBRAL ARTERY: Antegrade flow [facility] Jonas Baxter MD - 11/30/2024 Interpreted By: Jonas Baxter, STUDY: [facility] US CAROTID ARTERY DUPLEX BILATERAL; 11/29/2024 5:34 pm INDICATION: Signs/Symptoms:pre-op cardiac surgery. ,Z01.810 Encounter for preprocedural cardiovascular examination,Z09 Encounter for follow-up examination after completed treatment for conditions other than malignant neoplasm COMPARISON: None. ACCESSION NUMBER(S): [id number] ORDERING CLINICIAN: IRINEO LAUGHLIN TECHNIQUE: Vascular ultrasound [...] Jonas Baxter 11/30/2024 8:23 AM Dictation workstation: [id number] [facility] Work Phone: US.doppler Carotid arteries - bilateralOrdered By: Jonas Baxter on 11-30-2024 [facility] Work Phone: Urine Slater Tubeon 11-30-2024 Extra Tube Hold for add-ons. [facility] Comment on above: Auto resulted. [facility] Anti-Xa UF Heparinon 025 Anti-Xa UF Heparin 0.38 [IU]/mL Normal 0.30-0.70 [facility] Comment on above: Order Comment: 0530 DRAW Result Comment: Use the aPTT protocol when triglycerides are > 800 mg/dL, total bilirubin is > 20 mg/dL and/or patient has received a DOAC, Fondaparinux or LMWH within 72 hours AND baseline anti-Xa level is > 0.7 units/mL PERFORMED BY: [place] [address] PATHOLOGIST YARN TWISTER JAIDEN MONAHAN M.D. Performed By: #### C MP, MG, CBC #### [address] Basic Metabolic Panelon 11-02 Creatinine Clr Calc Pharmacy 42.54 Normal [facility] Comment on above: Order Comment: 8235 DRAW Result Comment: PERF ORMED BY: [place] [address] PATHOLOGIST YARN TWISTER JAIDEN MONAHAN M.D. Performed By: #### C K, HS TROP #### [facility] [address] [place] [address] [place] GFR/1.73 sq M.predicted MDRD (S/P/Bld) [Vol rate/Area] mL/min/{1.73_m2} Normal [facility] Comment on above: Order Comment: 0530 DRAW Performed By: #### C K, HS TROP #### [facility] [address] [place] [address] [place] Basophils Auto (Bld) [#/Vol] Ordered By: Nolan Ballesteros on 11-29-2024 Basophils (Bld) [#/Vol] Automated basophil count 0.0-0.2 [facility] Basophils [#/volume] in Bloo d by Automated countOrdered By: Nolan Ballesteros on 11-29-2024 Basophils (Bld) [#/Vol] 0.0 10*3/uL Normal 0.0-0.2 [facility] Comment on above: Order Comment: 0530 DRAW Result Comment: PERF ORMED BY: [place] [address] PATHOLOGIST YARN TWISTER JAIDEN MONAHAN M.D. Performed By: #### C K, HS TROP #### [place] [address] [place] Basophils/100 WBC Auto (Bld) Ordered By: Nolan Ballesteros on 11-29-2024 Basophils/100 WBC (Bld) Automated basophil % . [facility] Basophils/100 leukocytes in Blood by Automated countOrdered By: Nolan Ballesteros on 11-29-2024 Basophils/100 WBC (Bld) 0.6 % Normal . [facility] Comment on above: Order Comment: 529 DRAW Performed By: #### C K, HS TROP #### [address] CHEST WO IV CONTRASTon CT CHEST WO IV CONTRAST Interpreted By: Jonas Baxter, STUDY: CT CHEST WO IV CONTRAST; 11/29/2024 5:38 pm INDICATION: Signs/Symptoms:pre-op cardiac surgery; assess ascending for size and atherosclerosis. COMPARISON: None. ACCESSION NUMBER(S): [id number] ORDERING CLINICIAN: IRINOE LAUGHLIN TECHNIQUE: Helical data acquisition of the [...] Fleischner Society 2017, Radiology. 2017 Efren;284 (1):228-243.) [id number].[id number] Signed by: Jonas Baxter 11/30/2024 8:56 AM Dictation workstation: [id number] [facility] CT Chest WO contraston 11-29 Radiology Study observation (narrative) [facility] Work Phone: Calcium [Mass/volume] in Ser um or PlasmaOrdered By: Nolan Ballesteros on 11-29-2024 Calcium [Mass/Vol] Calcium [Mass/volume ] in Serum or Plasma 8.6-10.3 [facility] Calcium [Mass/Vol] 9.1 mg/dL Normal 8.6-10.3 [facility] Comment on above: Order Comment: 529 DRAW Performed By: #### C K, HS TROP #### [facility] [address] Carbon dioxide, total [Moles /volume] in Serum or PlasmaOrdered By: Nolan Ballesteros on 11-29-2024 CO2 [Moles/Vol] Carbon dioxide, tota l [Moles/volume] in Serum or Plasma 21.0-31.0 [facility] CO2 [Moles/Vol] 27.2 mmol/L Normal 21.0-31.0 [facility] Comment on above: Order Comment: 529 DRAW Performed By: #### C K, HS TROP #### [facility] [address] [place] [id number] [place] Chloride [Moles/volume] in S katiana or PlasmaOrdered By: Nolan Ballesteros on 11-29-2024 Chloride [Moles/Vol] Chloride [Moles/vol ume] in Serum or Plasma 98-107 [facility] Chloride [Moles/Vol] 105 mmol/L Normal 98-107 [facility] Comment on above: Order Comment: 0530 DRAW Performed By: #### C K, HS TROP #### [facility] [address] Complete Blood Count Auto Di ffon 11-29-2024 Mean Corpuscular HGB Conc 34.2 g/dL Normal 32.0-35.0 [facility] Comment on above: Order Comment: 0530 DRAW Performed By: #### C K, HS TROP #### [facility] [address] NRBC% 0.2 /100{WBC} Normal 0-0.5 [facility] Comment on above: Order Comment: 0530 DRAW Performed By: #### C K, HS TROP #### [facility] [address] [place] [address] Creatinine [Mass/volume] in Serum or PlasmaOrdered By: Nolan Ballesteros on 11-29-2024 Creatinine [Mass/Vol] Creatinine [Mass/volume] in Serum or Plasma 0.60-1.20 [facility] Creatinine [Mass/Vol] 0.87 mg/dL Normal 0.60-1.20 [facility] Comment on above: Order Comment: 0530 DRAW Performed By: #### C K, HS TROP #### [facility] [address] [place] [address] ECG 12 lead ECGon 11-29-2024 ECG 12 lead [place] [address] Electrocardiograph Report Signed Patient: Atiya Jha MR#: [id number] : 1940 Acct:[id number] Age/Sex: 84 / F ADM Date: 11/25/24 Loc: 4 Room: [address] [place] [address] Type: DIS IN Attending Dr: Nolan Ballesteros DO Ordering Provider: Nolan Ballesteros DO Date of Service: 11/29/24 ECG/ECG 12 lead ECG: chest pain Copies to: Test Reason : Blood Pressure : */* mmHG Vent. Rate : 82 BPM Atrial Rate : 82 BPM P-R Int : 178 ms QRS Dur : 82 ms QT Int : 406 ms P-R-T Axes : 54 67 83 degrees QTcB Int : 474 ms Normal sinus rhythm Normal ECG When compared with ECG of 28-Nov-2024 07:44, No significant change was found Confirmed by Noah Foster ([id number]) on 11/29/2024 12:12:25 PM Referred By: Electronically Signed By: Noah Foster Transcribed By: MUS Signed By Noah Foster MD 11/29/24 1212 Normal [facility] Eosinophils Auto (Bld) [#/Vo l]Ordered By: Nolan Ballesteros on 11-29-2024 Eosinophils (Bld) [#/Vol] Automated eosinophil count 0.0-0.45 [facility] Eosinophils [#/volume] in Bl ood by Automated countOrdered By: Nolan Ballesteros on 11-29-2024 Eosinophils (Bld) [#/Vol] 0.1 10*3/uL Normal 0.0-0.45 [facility] Comment on above: Order Comment: 529 DRAW Performed By: #### C K, HS TROP #### [facility] [address] Eosinophils/100 WBC Auto (Bl d)Ordered By: Nolan Ballesteros on 11-29-2024 Eosinophils/100 WBC (Bld) Automated eosinophil % . [facility] Eosinophils/100 leukocytes i n Blood by Automated countOrdered By: Nolan Ballesteros on 11-29-2024 Eosinophils/100 WBC (Bld) 2.3 % Normal . [facility] Comment on above: Order Comment: 529 DRAW Performed By: #### C K, HS TROP #### [facility] [address] Erythrocyte distribution wid th Auto (RBC) [Ratio]Ordered By: Nolan Ballesteros on 11-29-2024 Erythrocyte distribution width (RBC) [Ratio] Erythrocyte distribution width [Ratio] by Automated count 11.9-15.3 [facility] Erythrocyte distribution wid th [Ratio] by Automated countOrdered By: Nolan Ballesteros on 11-29-2024 Erythrocyte distribution width (RBC) [Ratio] 14.0 % Normal 11.9-15.3 [facility] Comment on above: Order Comment: 0530 DRAW Performed By: #### C K, HS TROP #### [facility] [address] Erythrocytes [#/volume] in B lood by Automated countOrdered By: Nolan Ballesteros on 11-29-2024 RBC (Bld) [#/Vol] 3.92 10*6/uL Normal 3.60-5.00 [facility] Comment on above: Order Comment: 0530 DRAW Performed By: #### C K, HS TROP #### [facility] [address] Glucose [Mass/volume] in Ser um or PlasmaOrdered By: Nolan Ballesteros on 11-29-2024 Glucose [Mass/Vol] Glucose [Mass/volume ] in Serum or Plasma 70-100 [facility] Comment on above: ADA recommended refe rence rangeRandom Glucose Reference Range is dependent on time and content of last meal. Glucose of more than 200 mg/dL in a nonstressed, ambulatory subject supports the diagnosis of Diabetes Mellitus. Glucose [Mass/Vol] 98 mg/dL Normal 70-100 [facility] Comment on above: ADA recommended refe rence rangeRandom Glucose Reference Range is dependent on time and content of last meal. Glucose of more than 200 mg/dL in a nonstressed, ambulatory subject supports the diagnosis of Diabetes Mellitus. Order Comment: 0530 DRAW Result Comment: [place] om Glucose Reference Range is dependent on time and content of last meal. Glucose of more than 200 mg/dL in a nonstressed, ambulatory subject supports the diagnosis of Diabetes Mellitus. ADA recommended reference range Performed By: #### C K, HS TROP #### [facility] [address] [place] [address] [place] Hematocrit Auto (Bld) [Volum e fraction]Ordered By: Nolan Ballesteros on 11-29-2024 Hematocrit (Bld) [Volume fraction] Hematocrit [Volume Fraction] of Blood by Automated count 34.0-46.4 [facility] Hematocrit [Volume Fraction] of Blood by Automated countOrdered By: Nolan Ballesteros on 11-29-2024 Hematocrit (Bld) [Volume fraction] 36.8 % Normal 34.0-46.4 [facility] Comment on above: Order Comment: 0530 DRAW Performed By: #### C K, HS TROP #### [facility] [address] Hemoglobin [Mass/volume] in BloodOrdered By: Nolan Ballesteros on 11-29-2024 Hemoglobin (Bld) [Mass/Vol] Hemoglobin [Mass/volume] in Blood 11.8-15.4 [facility] Hemoglobin (Bld) [Mass/Vol] 12.6 g/dL Normal 11.8-15.4 [facility] Comment on above: Order Comment: 0530 DRAW Performed By: #### C K, HS TROP #### [facility] [address] [place] [address] Heparin Assayon 11-29-2024 Heparin unfractionated Chromogenic method Qn (PPP) 0.7 [facility] Heparin unfractionated Chromogenic method Qn (PPP) 0.5 [facility] Heparin anti-Xa unfractionat edOrdered By: Nolan Ballesteros on 11-29-2024 Heparin unfractionated Chromogenic method Qn (PPP) Heparin anti-Xa unfractionated 0.30-0.70 [facility] Comment on above: Use the aPTT protoco l when triglycerides are > 800 mg/dL,total bilirubin is > 20 mg/dL and/or patient has received aDOAC, Fondaparinux or LMWH within 72 hours AND baselineanti-Xa level is > 0.7 units/mL Heparin unfractionated Chromogenic method Qn (PPP) 0.38 [IU]/mL 0.30-0.70 [facility] Comment on above: Use the aPTT protoco l when triglycerides are > 800 mg/dL,total bilirubin is > 20 mg/dL and/or patient has received aDOAC, Fondaparinux or LMWH within 72 hours AND baselineanti-Xa level is > 0.7 units/mL Heparin unfractionated Chrom ogenic method Qn (PPP)on 11-29-2024 Interpretation and review of laboratory results Normal [facility] The therapeutic reference range for UFH may be either 0.3-0.6 IU/mL or 0.3-0.7 IU/mL based on the clinical setting for anticoagulant therapy and the associated nomogram used. For Heparin dosing guidelines based on clinical scenario and Heparin Assay results, please refer to local Pharmacy and the [facility] Guidelines for Anticoagulation Therapy available on the [facility] intranet at: [email or web address] [email or web address]_Guidelines_for_Antic oagu.aspx [facility] Interpretation and review of laboratory results Normal [facility] The therapeutic reference range for UFH may be either 0.3-0.6 IU/mL or 0.3-0.7 IU/mL based on the clinical setting for anticoagulant therapy and the associated nomogram used. For Heparin dosing guidelines based on clinical scenario and Heparin Assay results, please refer to local Pharmacy and the [facility] Guidelines for Anticoagulation Therapy available on the [facility] intranet at: [email or web address] [email or web address]_Guidelines_for_Antic oagu.aspx [facility] Heparin.unfractionatedon Heparin unfractionated Chromogenic method Qn (PPP) 0.7 IU/mL Normal See Comment Below for Therapeutic Ranges [facility] Comment on above: Order Comment: The t herapeutic reference range for UFH may be either 0.3-0.6 IU/mL or 0.3-0.7 IU/mL based on the clinical setting for anticoagulant therapy and the associated nomogram used. For Heparin dosing guidelines based on clinical scenario and Heparin Assay results, please refer to local Pharmacy and the [facility] Guidelines for Anticoagulation Therapy available on the [facility] intranet at: [email or web address]/[email or web address]_Guidelines_for_Anticoagu.aspx Performed By: #### 3 274-8 #### SISSY HOGAN ([id number]) [facility] ([facility]) [address] [place] [address] Heparin unfractionated Chromogenic method Qn (PPP) 0.5 IU/mL Normal See Comment Below for Therapeutic Ranges [facility] Comment on above: Order Comment: The t herapeutic reference range for UFH may be either 0.3-0.6 IU/mL or 0.3-0.7 IU/mL based on the clinical setting for anticoagulant therapy and the associated nomogram used. For Heparin dosing guidelines based on clinical scenario and Heparin Assay results, please refer to local Pharmacy and the [facility] Guidelines for Anticoagulation Therapy available on the [facility] intranet at: [email or web address]/[email or web address]_ [facility]_Guidelines_for_Anticoagu.aspx Performed By: #### 3 274-8 #### SISSY HOGAN ([id number]) [facility] ([facility]) [address] [place] [address] Leukocytes [#/volume] correc law for nucleated erythrocytes in Blood by Automated counOrdered By: Nolan Ballesteros on 11-29-2024 WBC corrected for nucl RBC Auto (Bld) [#/Vol] Leukocytes [#/volume] corrected for nucleated erythrocytes in Blood by Automated coun 3.8-11.6 [facility] WBC corrected for nucl RBC Auto (Bld) [#/Vol] 6.2 10*3/uL 3.8-11.6 [facility] Leukocytes [#/volume] in Blo od by Automated countOrdered By: Nolan Ballesteros on 11-29-2024 WBC (Bld) [#/Vol] 6.2 10*3/uL Normal 3.8-11.6 [facility] Comment on above: Order Comment: 0530 DRAW Performed By: #### C K, HS TROP #### [address] Lower extremity vein mapping bilateralon 11-29-2024 Radiology Study observation (narrative) [facility] Work Phone: Lymphocytes Auto (Bld) [#/Vo l]Ordered By: Nolan Ballesteros on 11-29-2024 Lymphocytes (Bld) [#/Vol] Lymphocytes [#/volume] in Blood by Automated count 1.00-4.8 [facility] Lymphocytes [#/volume] in Bl ood by Automated countOrdered By: Nolan Ballesteros on 11-29-2024 Lymphocytes (Bld) [#/Vol] 1.9 10*3/uL Normal 1.00-4.8 [facility] Comment on above: Order Comment: 0530 DRAW Performed By: #### C K, HS TROP #### [address] Lymphocytes/100 WBC Auto (Bl d)Ordered By: Nolan Ballesteros on 11-29-2024 Lymphocytes/100 WBC (Bld) Lymphocytes/100 leukocytes in Blood by Automated count . [facility] Lymphocytes/100 leukocytes i n Blood by Automated countOrdered By: Nolan Ballesteros on 11-29-2024 Lymphocytes/100 WBC (Bld) 30.9 % Normal . [facility] Comment on above: Order Comment: 0530 DRAW Performed By: #### C K, HS TROP #### [facility] [address] [place] [address] MCH Auto (RBC) [Entitic mass ]Ordered By: Nolan Ballesteros on 11-29-2024 MCH (RBC) [Entitic mass] MCH [Entitic mass] by Automated count 24.7-34.3 [facility] MCH [Entitic mass] by Automa law countOrdered By: Nolan Ballesteros on 11-29-2024 MCH (RBC) [Entitic mass] 32.1 pg Normal 24.7-34.3 [facility] Comment on above: Order Comment: 0530 DRAW Performed By: #### C K, HS TROP #### [facility] [address] [place] [address] MCHC Auto (RBC) [Mass/Vol]Or dered By: Nolan Ballesteros on 11-29-2024 MCHC (RBC) [Mass/Vol] MCHC [Mass/volume] by Automated count 32.0-35.0 [facility] MCHC (RBC) [Mass/Vol] 34.2 g/dL 32.0-35.0 [facility] MCV Auto (RBC) [Entitic vol] Ordered By: Nolan Ballesteros on 11-29-2024 MCV (RBC) [Entitic vol] MCV [Entitic volume] by Automated count 80-100 [facility] MCV [Entitic volume] by Auto mated countOrdered By: Nolan Ballesteros on 11-29-2024 MCV (RBC) [Entitic vol] 93.9 fL Normal 80-100 [facility] Comment on above: Order Comment: 0530 DRAW Performed By: #### C K, HS TROP #### [facility] [address] [place] [address] [place] Monocytes Auto (Bld) [#/Vol] Ordered By: Nolan Ballesteros on 11-29-2024 Monocytes (Bld) [#/Vol] Automated blood monocyte count 0.0-0.8 [facility] Monocytes [#/volume] in Bloo d by Automated countOrdered By: Nolan Ballesteros on 11-29-2024 Monocytes (Bld) [#/Vol] 0.6 10*3/uL Normal 0.0-0.8 [facility] Comment on above: Order Comment: 0530 DRAW Performed By: #### C K, HS TROP #### [facility] [address] [place] [id number] [place] Monocytes/100 WBC Auto (Bld) Ordered By: Nolan Ballesteros on 11-29-2024 Monocytes/100 WBC (Bld) Automated monocyte % . [facility] Monocytes/100 leukocytes in Blood by Automated countOrdered By: Nolan Ballesteros on 11-29-2024 Monocytes/100 WBC (Bld) 10.3 % Normal . [facility] Comment on above: Order Comment: 0530 DRAW Performed By: #### C K, HS TROP #### [facility] [address] [place] [address] Neutrophils Auto (Bld) [#/Vo l]Ordered By: Nolan Ballesteros on 11-29-2024 Neutrophils (Bld) [#/Vol] Neutrophils [#/volume] in Blood by Automated count 1.8-7.7 [facility] Neutrophils [#/volume] in Bl ood by Automated countOrdered By: Nolan Ballesteros on 11-29-2024 Neutrophils (Bld) [#/Vol] 3.5 10*3/uL Normal 1.8-7.7 [facility] Comment on above: Order Comment: 529 DRAW Performed By: #### C K, HS TROP #### [facility] [address] [place] [address] Neutrophils/100 WBC Auto (Bl d)Ordered By: Nolan Ballesteros on 11-29-2024 Neutrophils/100 WBC (Bld) Automated neutrophil % . [facility] Neutrophils/100 leukocytes i n Blood by Automated countOrdered By: Nolan Ballesteros on 11-29-2024 Neutrophils/100 WBC (Bld) 55.9 % Normal . [facility] Comment on above: Order Comment: 529 DRAW Performed By: #### C K, HS TROP #### [address] No Panel Informationon 11-29 Interpretation and review of laboratory results [facility] No Panel InformationOrdered By: Nolan Ballesteros on 11-29-2024 Estimated GFR (CKD-EPI) > 60.0 mL/Min [facility] Creatinine Clearance (Chem 42.54 [facility] Nucleated erythrocytes [Pres ence] in Blood by Automated countOrdered By: Nolan Ballesteros on 11-29-2024 Nucleated RBC Auto Ql (Bld) Nucleated erythrocytes [Presence] in Blood by Automated count 0-0.5 [facility] Nucleated RBC Auto Ql (Bld) 0.2 /100{WBC} 0-0.5 [facility] Platelet mean volume Auto (B ld) [Entitic vol]Ordered By: Nolan Ballesteros on 11-29-2024 Platelet mean volume (Bld) [Entitic vol] Platelet mean volume [Entitic volume] in Blood by Automated count 6.3-10.7 [facility] Platelet mean volume [Entiti c volume] in Blood by Automated countOrdered By: Nolan Ballesteros on 11-29-2024 Platelet mean volume (Bld) [Entitic vol] 7.6 fL Normal 6.3-10.7 [facility] Comment on above: Order Comment: 529 DRAW Performed By: #### C K, HS TROP #### [facility] [address] [place] [address] Platelets Auto (Bld) [#/Vol] Ordered By: Nolan Ballesteros on 11-29-2024 Platelets (Bld) [#/Vol] Platelets [#/volume] in Blood by Automated count 150-450 [facility] Platelets [#/volume] in Bloo d by Automated countOrdered By: Nolan Ballesteros on 11-29-2024 Platelets (Bld) [#/Vol] 174 10*3/uL Normal 150-450 [facility] Comment on above: Order Comment: 529 DRAW Performed By: #### C K, HS TROP #### [facility] [address] [place] [address] Potassium [Moles/volume] in Serum or PlasmaOrdered By: Nolan Ballesteros on 11-29-2024 Potassium [Moles/Vol] Potassium [Moles/volume] in Serum or Plasma 3.5-5.1 [facility] Potassium [Moles/Vol] 4.2 mmol/L Normal 3.5-5.1 [facility] Comment on above: Order Comment: 529 DRAW Performed By: #### C K, HS TROP #### [facility] [address] [place] [address] RBC Auto (Bld) [#/Vol]Ordere d By: Nolan Ballesteros on 11-29-2024 RBC (Bld) [#/Vol] Erythrocytes [#/volu me] in Blood by Automated count 3.60-5.00 [facility] Serum or plasma anion gap de terminationOrdered By: Nolan Ballesteros on 11-29-2024 Anion gap [Moles/Vol] Serum or plasma an ion gap determination 6.0-15.0 [facility] Anion gap [Moles/Vol] 11.0 mmol/L Normal 6.0-15.0 [facility] Comment on above: Order Comment: 529 DRAW Performed By: #### C K, HS TROP #### [facility] [address] [place] [address] [place] Sodium [Moles/volume] in Ser um or PlasmaOrdered By: Nolan Ballesteros on 11-29-2024 Sodium [Moles/Vol] Sodium [Moles/volume ] in Serum or Plasma 136-145 [facility] Sodium [Moles/Vol] 139 mmol/L Normal 136-145 [facility] Comment on above: Order Comment: 529 DRAW Performed By: #### C K, HS TROP #### [facility] [address] [place] [id number] [place] US.doppler Carotid arteries - bilateralon 11-29-2024 Radiology Study observation (narrative) [facility] Work Phone: Urea nitrogen [Mass/volume] in Serum or PlasmaOrdered By: Nolan Ballesteros on 11-29-2024 Urea nitrogen [Mass/Vol] Urea nitrogen [Mass/volume] in Serum or Plasma 7-25 [facility] Urea nitrogen [Mass/Vol] 14 mg/dL Normal 02-24 [facility] Comment on above: Order Comment: 529 DRAW Performed By: #### C K, HS TROP #### [facility] [address] [place] [id number] [place] Urinalysis complete panel (U )on 11-29-2024 Appearance (U) Clear Clear [facility] Bilirubin (U) [Mass/Vol] Negative NEGATIVE mg/dL [facility] Color (U) Yellow Light-Yellow , Yellow, Dark-Yellow [facility] Glucose Auto test strip (U) [Mass/Vol] Normal Normal mg/dL [facility] Ketones (U) [Mass/Vol] Negative NEGAT PHILIPPE mg/dL [facility] Leukocyte esterase Auto test strip Ql (U) 500 Michelle/uL Abnormal NEGATIVE [facility] Nitrite Auto test strip Ql (U) Negative NEGATIVE [facility] pH (U) 5.5 [pH] 5.0, 5.5, 6.0, 6.5, 7.0, 7.5, 8.0 [facility] Protein (U) [Mass/Vol] Negative NEGAT PHILIPPE, 10 (TRACE), 20 (TRACE) mg/dL [facility] RBC (U) [#/Vol] 0.1 (1+) Abnormal NEGATIVE mg/dL [facility] Specific gravity (U) [Rel density] 1.021 1.005 - 1.035 [facility] Urobilinogen (U) [Mass/Vol] Normal Normal mg/dL [facility] Appearance (U) Clear Normal Clear [facility] Comment on above: Performed By: #### 2 4356-8 #### KAYIBGABRIEL HOGAN ([id number]) [facility]) [address] [place] [address] Bilirubin (U) [Mass/Vol] Negative Normal NEGATIVE [facility] Comment on above: Performed By: #### 2 4356-8 #### KAYIBGABRIEL HOGAN ([id number]) [facility] ([facility]) [address] [place] [address] Color (U) Yellow Normal Light-Yellow , Yellow, Dark-Yellow [facility] Comment on above: Performed By: #### 2 4356-8 #### ANAIBELILIZZY ASA EDIN ([id number]) [facility] ([facility]) [address] [place] [address] Glucose Auto test strip (U) [Mass/Vol] Normal Normal Normal [facility] Comment on above: Performed By: #### 2 4356-8 #### ANAIBELILIZZY ASA EDIN ([id number]) [facility] ([facility]) [address] [place] [address] Ketones (U) [Mass/Vol] Negative Normal NEGATIVE [facility] on above: Performed By: #### 2 4356-8 #### SISSY HOGAN ([id number]) [facility] ([facility]) [address] [place] [address] Leukocyte esterase Auto test strip Ql (U) 500 Michelle/uL Abnormal NEGATIVE [facility] Comment on above: Performed By: #### 2 4356-8 #### SISSY HOGAN ([id number]) [facility] ([facility]) [address] [place] [address] Nitrite Auto test strip Ql (U) Negative Normal NEGATIVE [facility] Comment on above: Performed By: #### 2 4356-8 #### SISSY HOGAN ([id number]) [facility] ([facility]) [address] [place] [address] pH (U) 5.5 [pH] Normal 5.0, 5.5, 6.0, 6.5, 7.0, 7.5, 8.0 [facility] Comment on above: Performed By: #### 2 4356-8 #### SISSY HOGAN ([id number]) [facility] ([facility]) [address] [place] [address] Protein (U) [Mass/Vol] Negative Normal NEGAT PHILIPPE, 10 (TRACE), 20 (TRACE) [facility] Comment on above: Performed By: #### 2 4356-8 #### SISSY HOGAN ([id number]) [facility] ([facility]) [address] [place] [address] RBC (U) [#/Vol] 0.1 (1+) Abnormal NEGATIVE [facility] Comment on above: Performed By: #### 2 4356-8 #### SISSY HOGAN ([id number]) [facility] ([facility]) [address] [place] [address] Specific gravity (U) [Rel density] 1.021 Normal 1.005-1.035 [facility] Comment on above: Performed By: #### 2 4356-8 #### SISSY HOGAN ([id number]) [facility] ([facility]) [address] [place] [address] Urobilinogen (U) [Mass/Vol] Normal Normal Normal [facility] Comment on above: Performed By: #### 2 6426-8 #### SISSY HOGAN ([id number]) [facility] ([facility]) [address] [place] [address] Urinalysis microscopic panel Auto Ql (U)on 11-29-2024 Bacteria Auto (Urine sed) [#/Area] 1+ Abnormal NONE SEEN /HPF [facility] Epithelial cells.squamous Auto (Urine sed) [#/Area] 1-9 (SPARSE) Reference range not established. /HPF [facility] Mucus Auto (Urine sed) [#/Area] FEW Reference range not established. /LPF [facility] RBC Auto (Urine sed) [#/Area] 6-10 Abnormal NONE, 1-2, 3-5 /HPF [facility] WBC Auto (Urine sed) [#/Area] >50 Abnormal 1-5, NONE /HPF [facility] Bacteria Auto (Urine sed) [#/Area] 1+ /HPF Abnormal NONE SEEN [facility] Comment on above: Performed By: #### 5 7725-8 #### SISSY HOGAN ([id number]) [facility] ([facility]) [address] [place] [address] Epithelial cells.squamous Auto (Urine sed) [#/Area] 1-9 (SPARSE) Normal Reference range not established. [facility] Comment on above: Performed By: #### 5 3315-8 #### SISSY HOGAN ([id number]) [facility] ([facility]) [address] [place] [address] Mucus Auto (Urine sed) [#/Area] FEW Normal Reference range not established. [facility] Comment on above: Performed By: #### 5 9205-8 #### SISSY HOGAN ([id number]) [facility] ([facility]) [address] [place] [address] RBC Auto (Urine sed) [#/Area] 6-10 Abnormal NONE, 1-2, 3-5 [facility] Comment on above: Performed By: #### 5 3315-8 #### SISSY PAULA JESUS ([id number]) [facility]) [address] [place] [address] WBC Auto (Urine sed) [#/Area] >50 Abnormal 1-5, NONE [facility] Comment on above: Performed By: #### 5 3315-8 #### SISSY PAULA JESUS ([id number]) [facility]) [address] [place] [address] [facility] US CAROTID ARTERY DUPLE X BILATERALon 11-29-2024 VAS US CAROTID ARTERY DUPLEX BILATERAL Interpreted By: Jonas Baxter, STUDY: VAS US CAROTID ARTERY DUPLEX BILATERAL; 11/29/2024 5:34 pm INDICATION: Signs/Symptoms:pre-op cardiac surgery. ,Z01.810 Encounter for preprocedural cardiovascular examination,Z09 Encounter for follow-up examination after completed treatment for conditions other than malignant neoplasm COMPARISON: None. ACCESSION NUMBER(S): [id number] ORDERING CLINICIAN: IRINEO LAUGHLIN TECHNIQUE: Vascular ultrasound [...] Jonas Baxter 11/30/2024 8:23 AM Dictation workstation: [id number] [facility] US LOWER EXTREMITY VEIN MAPPING BILATERALon 11-29-2024 [facility] US LOWER EXTREMITY VEIN MAPPING BILATERAL Interpreted By: Jonas Baxter, STUDY: [facility] US LOWER EXTREMITY VEIN MAPPING BILATERAL; ; 11/29/2024 5:34 pm INDICATION: Signs/Symptoms:pre-op CABG. 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 ACCESSION NUMBER(S): [id number] ORDERING CLINICIAN: IRINEO LAUGHLIN TECHNIQUE: Sonographic lower [...] Jonas Baxter 11/30/2024 8:39 AM Dictation workstation: [id number] [facility] WBC Auto (Bld) [#/Vol]Ordere d By: Nolan Ballesteros on 11-29-2024 WBC (Bld) [#/Vol] Leukocytes [#/volume ] in Blood by Automated count 3.8-11.6 [facility] Anti-Xa UF Heparinon 025 Anti-Xa UF Heparin 0.29 [IU]/mL Low 0.30-0.70 [facility] Comment on above: Result Comment: Use the aPTT protocol when triglycerides are > 800 mg/dL, total bilirubin is > 20 mg/dL and/or patient has received a DOAC, Fondaparinux or LMWH within 72 hours AND baseline anti-Xa level is > 0.7 units/mL PERFORMED BY: [place] [address] PATHOLOGIST YARN TWISTER JAIDEN MONAHAN M.D. Performed By: #### C MP, MG, CBC #### [facility] [address] [place] [address] Anti-Xa UF Heparin 0.31 [IU]/mL Normal 0.30-0.70 [facility] Comment on above: Result Comment: Use the aPTT protocol when triglycerides are > 800 mg/dL, total bilirubin is > 20 mg/dL and/or patient has received a DOAC, Fondaparinux or LMWH within 72 hours AND baseline anti-Xa level is > 0.7 units/mL PERFORMED BY: [place] [address] PATHOLOGIST YARN TWISTER JAIDEN MONAHAN M.D. Performed By: #### C K, HS TROP #### [facility] [address] [place] [address] Basic Metabolic Panelon 11-02 Anion gap [Moles/Vol] 10.9 mmol/L Normal 6.0-15.0 [facility] Comment on above: Performed By: #### C MP, MG, CBC #### [facility] [address] Calcium [Mass/Vol] 9.1 mg/dL Normal 8.6-10.3 [facility] Comment on above: Performed By: #### C MP, MG, CBC #### [facility] [address] Chloride [Moles/Vol] 106 mmol/L Normal 98-107 [facility] Comment on above: Performed By: #### C MP, MG, CBC #### [address] CO2 [Moles/Vol] 25.7 mmol/L Normal 21.0-31.0 [facility] Comment on above: Performed By: #### C MP, MG, CBC #### [address] Creatinine [Mass/Vol] 0.69 mg/dL Normal 0.60-1.20 [facility] Comment on above: Performed By: #### C MP, MG, CBC #### [place] [address] [place] Creatinine Clr Calc Pharmacy 46.26 Normal [facility] Comment on above: Result Comment: PERF ORMED BY: [place] [address] PATHOLOGIST YARN TWISTER JAIDEN MONAHAN M.D. Performed By: #### C MP, MG, CBC #### [place] [address] [place] GFR/1.73 sq M.predicted MDRD (S/P/Bld) [Vol rate/Area] mL/min/{1.73_m2} Normal [facility] Comment on above: Performed By: #### C MP, MG, CBC #### [address] Glucose [Mass/Vol] 99 mg/dL Normal 70-100 [facility] Comment on above: Result Comment: [place] Glucose Reference Range is dependent on time and content of last meal. Glucose of more than 200 mg/dL in a nonstressed, ambulatory subject supports the diagnosis of Diabetes Mellitus. ADA recommended reference range Performed By: #### C MP, MG, CBC #### [address] Potassium [Moles/Vol] 3.6 mmol/L Normal 3.5-5.1 [facility] Comment on above: Performed By: #### C MP, MG, CBC #### [address] Sodium [Moles/Vol] 139 mmol/L Normal 136-145 [facility] Comment on above: Performed By: #### C MP, MG, CBC #### [address] Urea nitrogen [Mass/Vol] 17 mg/dL Normal 7-25 [facility] Comment on above: Performed By: #### C MP, MG, CBC #### [address] Complete Blood Count Auto Di ffon 11-28-2024 Basophils (Bld) [#/Vol] 0.0 10*3/uL Normal 0.0-0.2 [facility] Comment on above: Result Comment: PERF ORMED BY: [place] [address] PATHOLOGIST YARN TWISTER JAIDEN MONAHAN M.D. Performed By: #### C MP, MG, CBC #### [address] Basophils/100 WBC (Bld) 0.6 % Normal . [facility] Comment on above: Performed By: #### C MP, MG, CBC #### [place] [address] [place] Eosinophils (Bld) [#/Vol] 0.2 10*3/uL Normal 0.0-0.45 [facility] Comment on above: Performed By: #### C MP, MG, CBC #### [place] [address] [place] Eosinophils/100 WBC (Bld) 2.4 % Normal . [facility] Comment on above: Performed By: #### C MP, MG, CBC #### [address] Erythrocyte distribution width (RBC) [Ratio] 14.0 % Normal 11.9-15.3 [facility] Comment on above: Performed By: #### C MP, MG, CBC #### [address] Hematocrit (Bld) [Volume fraction] 33.5 % Low 34.0-46.4 [facility] Comment on above: Performed By: #### C MP, MG, CBC #### [address] Hemoglobin (Bld) [Mass/Vol] 11.6 g/dL Low 11.8-15.4 [facility] Comment on above: Performed By: #### C MP, MG, CBC #### [address] Lymphocytes (Bld) [#/Vol] 1.6 10*3/uL Normal 1.00-4.8 [facility] Comment on above: Performed By: #### C MP, MG, CBC #### [address] Lymphocytes/100 WBC (Bld) 26.0 % Normal . [facility] Comment on above: Performed By: #### C MP, MG, CBC #### [address] MCH (RBC) [Entitic mass] 32.5 pg Normal 24.7-34.3 [facility] Comment on above: Performed By: #### C MP, MG, CBC #### [address] MCV (RBC) [Entitic vol] 93.6 fL Normal 80-100 [facility] Comment on above: Performed By: #### C MP, MG, CBC #### [address] Mean Corpuscular HGB Conc 34.8 g/dL Normal 32.0-35.0 [facility] Comment on above: Performed By: #### C MP, MG, CBC #### [facility] [address] Monocytes (Bld) [#/Vol] 0.8 10*3/uL Normal 0.0-0.8 [facility] Comment on above: Performed By: #### C MP, MG, CBC #### [address] Monocytes/100 WBC (Bld) 12.4 % Normal . [facility] Comment on above: Performed By: #### C MP, MG, CBC #### [address] Neutrophils (Bld) [#/Vol] 3.6 10*3/uL Normal 1.8-7.7 [facility] Comment on above: Performed By: #### C MP, MG, CBC #### [address] Neutrophils/100 WBC (Bld) 58.6 % Normal . [facility] Comment on above: Performed By: #### C MP, MG, CBC #### [address] NRBC% 0.1 /100{WBC} Normal 0-0.5 [facility] Comment on above: Performed By: #### C MP, MG, CBC #### [address] Platelet mean volume (Bld) [Entitic vol] 7.6 fL Normal 6.3-10.[address] [facility] Comment on above: Performed By: #### C MP, MG, CBC #### [facility] [address] Platelets (Bld) [#/Vol] 155 10*3/uL Normal 150-450 [facility] Comment on above: Performed By: #### C MP, MG, CBC #### [address] RBC (Bld) [#/Vol] 3.58 10*6/uL Low 3.60-5.00 [facility] Comment on above: Performed By: #### C MP, MG, CBC #### [facility] [address] WBC (Bld) [#/Vol] 6.2 10*3/uL Normal 3.8-11.6 [facility] Comment on above: Performed By: #### C MP, MG, CBC #### [facility] [address] ECG 12 lead ECGon 11-28-2024 ECG 12 lead ECG [facility] [place] [address] [place] [address] Electrocardiograph Report Signed Patient: Atiya Jha MR#: [id number] : 1940 Acct:[id number] Age/Sex: 84 / F ADM Date: 11/25/24 Loc: Room: [address] [place] [address] Type: ADM IN Attending Dr: Nolan Ballesteros DO Ordering Provider: Nolan Ballesteros DO Date of Service: 11/28/24 ECG/ECG 12 lead ECG: chest pain Copies to: Test Reason : Blood Pressure : */* mmHG Vent. Rate : 67 BPM Atrial Rate : 67 BPM P-R Int : 196 ms QRS Dur : 84 ms QT Int : 430 ms P-R-T Axes : 84 42 75 degrees QTcB Int : 454 ms Normal sinus rhythm Normal ECG When compared with ECG of 26-Nov-2024 07:35, No significant change was found Confirmed by Noah Foster ([id number]) on 11/28/2024 9:01:48 AM Referred By: Electronically Signed By: Noah Foster Transcribed By: MUS Signed By Noah Foster MD 11/28/24 0901 Normal [facility] Troponin I High Sensitivityo n 11-28-2024 Troponin I High Sensitivity 193 Off scale high 0-15 [facility] Comment on above: Result Comment: Crit ical Result : Called to and read back by: AUGUSTA VIEYRA at: 11/28/2024 05:50:28 by:[id number] The Troponin units of report have been changed to meet the Chest Pain Accreditation requirement, element EC5.M1l2. Troponin units are changed from pg/ml to ng/L. Also, the decimal is removed and results are in whole numbers. PERFORMED BY: [place] [address] PATHOLOGIST YARN TWISTER JAIDEN MONAHAN M.D. Performed By: #### C MP, MG, CBC #### [address] Troponin I.cardiac [Mass/vol ume] in Serum or Plasma by Detection limit <= 0.01 ng/Ordered By: Nolan Ballesteros on 11-28-2024 Troponin I.cardiac DL <= 0.01 ng/mL [Mass/Vol] Troponin I.cardiac [Mass/volume] in Serum or Plasma by Detection limit <= 0.01 ng/ Critically high 015 [facility] Comment on above: Critical Result : Ca lled to and read back by: AUGUSTA VIEYRA at: 11/28/2024 05:50:28 by:[id number] Troponin units of report have been changed to meet the Chest Pain Accreditation requirement, element EC5.M1l2. Troponin units are changed from pg/ml to ng/L. Also, the decimal is removed and results are in whole numbers. Troponin I.cardiac [Mass/vol ume] in Serum or Plasma by Detection limit <= 0.01 ng/mLOrdered By: Nolan Ballesteros on 11-28-2024 Troponin I.cardiac DL <= 0.01 ng/mL [Mass/Vol] 193 ng/L Critically high [address] Comment on above: Critical Result : Ca lled to and read back by: AUGUSTA VIEYRA at: 11/28/2024 05:50:28 by:[id number] Troponin units of report have been changed to meet the Chest Pain Accreditation requirement, element EC5.M1l2. Troponin units are changed from pg/ml to ng/L. Also, the decimal is removed and results are in whole numbers. Anti-Xa UF Heparinon 025 Anti-Xa UF Heparin 0.33 [IU]/mL Normal 0.30-0.70 [facility] Comment on above: Result Comment: Use the aPTT protocol when triglycerides are > 800 mg/dL, total bilirubin is > 20 mg/dL and/or patient has received a DOAC, Fondaparinux or LMWH within 72 hours AND baseline anti-Xa level is > 0.7 units/mL PERFORMED BY: [place] [address] PATHOLOGIST YARN TWISTER JAIDEN MONAHAN M.D. Performed By: #### C MP, MG, CBC #### [address] Basic Metabolic Panelon 11-02 Anion gap [Moles/Vol] 11.5 mmol/L Normal 6.0-15.0 [facility] Comment on above: Performed By: #### C MP, MG, CBC #### [address] Calcium [Mass/Vol] 9.0 mg/dL Normal 8.6-10.3 [facility] Comment on above: Performed By: #### C MP, MG, CBC #### [address] Chloride [Moles/Vol] 104 mmol/L Normal 98-107 [facility] Comment on above: Performed By: #### C MP, MG, CBC #### [address] CO2 [Moles/Vol] 26.1 mmol/L Normal 21.0-31.0 [facility] Comment on above: Performed By: #### C MP, MG, CBC #### [address] Creatinine [Mass/Vol] 0.66 mg/dL Normal 0.60-1.20 [facility] Comment on above: Performed By: #### C MP, MG, CBC #### [address] Creatinine Clr Calc Pharmacy 50.19 Normal [facility] Comment on above: Result Comment: PERF ORMED BY: [place] [address] PATHOLOGIST YARN TWISTER JAIDEN MONAHAN M.D. Performed By: #### C MP, MG, CBC #### [address] GFR/1.73 sq M.predicted MDRD (S/P/Bld) [Vol rate/Area] mL/min/{1.73_m2} Normal [facility] Comment on above: Performed By: #### C MP, MG, CBC #### [address] Glucose [Mass/Vol] 97 mg/dL Normal 70-100 [facility] Comment on above: Result Comment: [place] Glucose Reference Range is dependent on time and content of last meal. Glucose of more than 200 mg/dL in a nonstressed, ambulatory subject supports the diagnosis of Diabetes Mellitus. ADA recommended reference range Performed By: #### C MP, MG, CBC #### [address] Potassium [Moles/Vol] 3.6 mmol/L Normal 3.5-5.1 [facility] Comment on above: Performed By: #### C MP, MG, CBC #### [place] [address] [place] Sodium [Moles/Vol] 138 mmol/L Normal 136-145 [facility] Comment on above: Performed By: #### C MP, MG, CBC #### [place] [address] [place] Urea nitrogen [Mass/Vol] 16 mg/dL Normal 7-25 [facility] Comment on above: Performed By: #### C MP, MG, CBC #### [address] Complete Blood Count Auto Di ffon 11-27-2024 Basophils (Bld) [#/Vol] 0.0 10*3/uL Normal 0.0-0.2 [facility] Comment on above: Result Comment: PERF ORMED BY: [place] [address] PATHOLOGIST YARN TWISTER JAIDEN MONAHAN M.D. Performed By: #### C MP, MG, CBC #### [address] Basophils/100 WBC (Bld) 0.6 % Normal . [facility] Comment on above: Performed By: #### C MP, MG, CBC #### [place] [address] [place] Eosinophils (Bld) [#/Vol] 0.2 10*3/uL Normal 0.0-0.45 [facility] Comment on above: Performed By: #### C MP, MG, CBC #### [place] [address] [place] Eosinophils/100 WBC (Bld) 3.3 % Normal . [facility] Comment on above: Performed By: #### C MP, MG, CBC #### [place] [address] [place] Erythrocyte distribution width (RBC) [Ratio] 13.7 % Normal 11.9-15.3 [facility] Comment on above: Performed By: #### C MP, MG, CBC #### [address] Hematocrit (Bld) [Volume fraction] 34.2 % Normal 34.0-46.4 [facility] Comment on above: Performed By: #### C MP, MG, CBC #### [facility] [address] [place] [address] [place] Hemoglobin (Bld) [Mass/Vol] 11.9 g/dL Normal 11.8-15.4 [facility] Comment on above: Performed By: #### C MP, MG, CBC #### [facility] [address] [place] [address] [place] Lymphocytes (Bld) [#/Vol] 2.0 10*3/uL Normal 1.00-4.8 [facility] Comment on above: Performed By: #### C MP, MG, CBC #### [facility] [address] Lymphocytes/100 WBC (Bld) 33.4 % Normal . [facility] Comment on above: Performed By: #### C MP, MG, CBC #### [facility] [address] MCH (RBC) [Entitic mass] 32.3 pg Normal 24.7-34.3 [facility] Comment on above: Performed By: #### C MP, MG, CBC #### [address] MCV (RBC) [Entitic vol] 93.0 fL Normal 80-100 [facility] Comment on above: Performed By: #### C MP, MG, CBC #### [address] Mean Corpuscular HGB Conc 34.7 g/dL Normal 32.0-35.0 [facility] Comment on above: Performed By: #### C MP, MG, CBC #### [place] [address] [place] Monocytes (Bld) [#/Vol] 0.7 10*3/uL Normal 0.0-0.8 [facility] Comment on above: Performed By: #### C MP, MG, CBC #### [place] [address] [place] Monocytes/100 WBC (Bld) 11.4 % Normal . [facility] Comment on above: Performed By: #### C MP, MG, CBC #### [facility] [address] Neutrophils (Bld) [#/Vol] 3.0 10*3/uL Normal 1.8-7.7 [facility] Comment on above: Performed By: #### C MP, MG, CBC #### [address] Neutrophils/100 WBC (Bld) 51.3 % Normal . [facility] Comment on above: Performed By: #### C MP, MG, CBC #### [facility] [address] NRBC% 0.1 /100{WBC} Normal 0-0.5 [facility] Comment on above: Performed By: #### C MP, MG, CBC #### [address] Platelet mean volume (Bld) [Entitic vol] 7.8 fL Normal 6.3-10.[address] [facility] Comment on above: Performed By: #### C MP, MG, CBC #### [address] Platelets (Bld) [#/Vol] 168 10*3/uL Normal 150-450 [facility] Comment on above: Performed By: #### C MP, MG, CBC #### [address] RBC (Bld) [#/Vol] 3.68 10*6/uL Normal 3.60-5.00 [facility] Comment on above: Performed By: #### C MP, MG, CBC #### [address] WBC (Bld) [#/Vol] 5.9 10*3/uL Normal 3.8-11.6 [facility] Comment on above: Performed By: #### C MP, MG, CBC #### [address] Troponin I High Sensitivityo n 11-27-2024 Troponin I High Sensitivity 445 Off scale high 0-15 [facility] Comment on above: Result Comment: Crit ical Result : Called to and read back by: EDUARD JASSO at: 11/27/2024 06:20:21 by:[email or web address] The Troponin units of report have been changed to meet the Chest Pain Accreditation requirement, element EC5.M1l2. Troponin units are changed from pg/ml to ng/L. Also, the decimal is removed and results are in whole numbers. PERFORMED BY: [place] [address] PATHOLOGIST YARN TWISTER JAIDEN MONAHAN M.D. Performed By: #### C MP, MG, CBC #### [address] Anti-Xa UF Heparinon 025 Anti-Xa UF Heparin 0.30 [IU]/mL Normal 0.30-0.70 [facility] Comment on above: Result Comment: Use the aPTT protocol when triglycerides are > 800 mg/dL, total bilirubin is > 20 mg/dL and/or patient has received a DOAC, Fondaparinux or LMWH within 72 hours AND baseline anti-Xa level is > 0.7 units/mL PERFORMED BY: [place] [address] PATHOLOGIST YARN TWISTER JIADEN MONAHAN M.D. Performed By: #### C [place]IL[place], MG, CBC #### [address] Anti-Xa UF Heparin 0.33 [IU]/mL Normal 0.30-0.70 [facility] Comment on above: Result Comment: Use the aPTT protocol when triglycerides are > 800 mg/dL, total bilirubin is > 20 mg/dL and/or patient has received a DOAC, Fondaparinux or LMWH within 72 hours AND baseline anti-Xa level is > 0.7 units/mL PERFORMED BY: [place] [address] PATHOLOGIST YARN TWISTER JAIDEN MONAHAN M.D. Performed By: #### C MP, MG, CBC #### [address] Basic Metabolic Panelon 11-02 Anion gap [Moles/Vol] 12.9 mmol/L Normal 6.0-15.0 [facility] Comment on above: Performed By: #### C K, HS TROP #### [place] [address] [place] Calcium [Mass/Vol] 9.2 mg/dL Normal 8.6-10.3 [facility] Comment on above: Performed By: #### C K, HS TROP #### [facility] [address] [place] [address] [place] Chloride [Moles/Vol] 104 mmol/L Normal 98-107 [facility] Comment on above: Performed By: #### C K, HS TROP #### [facility] [address] [place] [address] [place] CO2 [Moles/Vol] 25.7 mmol/L Normal 21.0-31.0 [facility] Comment on above: Performed By: #### C K, HS TROP #### [facility] [address] [place] [address] [place] Creatinine [Mass/Vol] 0.89 mg/dL Normal 0.60-1.20 [facility] Comment on above: Performed By: #### C K, HS TROP #### [facility] [address] [place] [address] [place] Creatinine Clr Calc Pharmacy 44.94 Normal [facility] Comment on above: Result Comment: PERF ORMED BY: [place] [address] PATHOLOGIST YARN TWISTER JAIDEN MONAHAN M.D. Performed By: #### C K, HS TROP #### [place] [address] [place] GFR/1.73 sq M.predicted MDRD (S/P/Bld) [Vol rate/Area] mL/min/{1.73_m2} Normal [facility] Comment on above: Performed By: #### C K, HS TROP #### [facility] [address] [place] [address] [place] Glucose [Mass/Vol] 99 mg/dL Normal 70-100 [facility] Comment on above: Result Comment: [place] Glucose Reference Range is dependent on time and content of last meal. Glucose of more than 200 mg/dL in a nonstressed, ambulatory subject supports the diagnosis of Diabetes Mellitus. ADA recommended reference range Performed By: #### C K, HS TROP #### [address] Potassium [Moles/Vol] 3.6 mmol/L Normal 3.5-5.1 [facility] Comment on above: Performed By: #### C K, HS TROP #### [address] Sodium [Moles/Vol] 139 mmol/L Normal 136-145 [facility] Comment on above: Performed By: #### C K, HS TROP #### [address] Urea nitrogen [Mass/Vol] 18 mg/dL Normal 7-25 [facility] Comment on above: Performed By: #### C K, HS TROP #### [address] Complete Blood Count Auto Di ffon 11-26-2024 Basophils (Bld) [#/Vol] 0.1 10*3/uL Normal 0.0-0.2 [facility] Comment on above: Result Comment: PERF ORMED BY: [place] [address] PATHOLOGIST YARN TWISTER JAIDEN MONAHAN M.D. Performed By: #### C K, HS TROP #### [place] [address] [place] Basophils/100 WBC (Bld) 1.0 % Normal . [facility] Comment on above: Performed By: #### C K, HS TROP #### [place] [address] [place] Eosinophils (Bld) [#/Vol] 0.3 10*3/uL Normal 0.0-0.45 [facility] Comment on above: Performed By: #### C K, HS TROP #### [place] [address] [place] Eosinophils/100 WBC (Bld) 3.8 % Normal . [facility] Comment on above: Performed By: #### C K, HS TROP #### [address] [address] [place] Erythrocyte distribution width (RBC) [Ratio] 14.0 % Normal 11.9-15.3 [facility] Comment on above: Performed By: #### C K, HS TROP #### [address] Hematocrit (Bld) [Volume fraction] 35.3 % Normal 34.0-46.4 [facility] Comment on above: Performed By: #### C K, HS TROP #### [address] Hemoglobin (Bld) [Mass/Vol] 12.1 g/dL Normal 11.8-15.4 [facility] Comment on above: Performed By: #### C K, HS TROP #### [address] Lymphocytes (Bld) [#/Vol] 2.0 10*3/uL Normal 1.00-4.8 [facility] Comment on above: Performed By: #### C K, HS TROP #### [address] Lymphocytes/100 WBC (Bld) 30.0 % Normal . [facility] Comment on above: Performed By: #### C K, HS TROP #### [address] MCH (RBC) [Entitic mass] 31.8 pg Normal 24.7-34.3 [facility] Comment on above: Performed By: #### C K, HS TROP #### [address] MCV (RBC) [Entitic vol] 92.5 fL Normal 80-100 [facility] Comment on above: Performed By: #### C K, HS TROP #### [address] Mean Corpuscular HGB Conc 34.4 g/dL Normal 32.0-35.0 [facility] Comment on above: Performed By: #### C K, HS TROP #### [address] [place] [address] [place] Monocytes (Bld) [#/Vol] 0.7 10*3/uL Normal 0.0-0.8 [facility] Comment on above: Performed By: #### C K, HS TROP #### [facility] [address] [place] [address] [place] Monocytes/100 WBC (Bld) 10.5 % Normal . [facility] Comment on above: Performed By: #### C K, HS TROP #### [facility] [address] [place] [address] [place] Neutrophils (Bld) [#/Vol] 3.6 10*3/uL Normal 1.8-7.7 [facility] Comment on above: Performed By: #### Lela K, HS TROP #### [place] [address] [place] Neutrophils/100 WBC (Bld) 54.7 % Normal . [facility] Comment on above: Performed By: #### Lela K, HS TROP #### [facility] [address] [place] [address] [place] NRBC% 0.0 /100{WBC} Normal 0-0.5 [facility] Comment on above: Performed By: #### Lela K, HS TROP #### [facility] [address] [place] [address] [place] Platelet mean volume (Bld) [Entitic vol] 7.8 fL Normal 6.3-10.[address] [facility] Comment on above: Performed By: #### C K, HS TROP #### [facility] [address] [place] [address] [place] Platelets (Bld) [#/Vol] 158 10*3/uL Normal 150-450 [facility] Comment on above: Performed By: #### C K, HS TROP #### [facility] [address] [place] [address] [place] RBC (Bld) [#/Vol] 3.81 10*6/uL Normal 3.60-5.00 [facility] Comment on above: Performed By: #### C K, HS TROP #### [facility] [address] [place], [place] [id number] [facility] WBC (Bld) [#/Vol] 6.6 10*3/uL Normal 3.8-11.6 [facility] Comment on above: Performed By: #### C K, HS TROP #### [facility] [address] [place], [place] [id number] [facility] ECG 12 lead ECGon 11-26-2024 ECG 12 lead [place] [address] Electrocardiograph Report Signed Patient: Atiya Jha MR#: [id number] : 1940 Acct:[id number] Age/Sex: 84 / F ADM Date: 11/25/24 Loc: Room: [address] [place] [address] Type: ADM IN Attending Dr: Nolan Ballesteros DO Ordering Provider: Katya Borges MD Date of Service: 11/26/24 ECG/ECG 12 lead ECG: Chest Pain Copies to: Test Reason : Blood Pressure : */* mmHG Vent. Rate : 72 BPM Atrial Rate : 72 BPM P-R Int : 176 ms QRS Dur : 84 ms QT Int : 442 ms P-R-T Axes : -13 28 78 degrees QTcB Int : 483 ms Normal sinus rhythm T wave inversion in V1 and V2 Normal ECG When compared with ECG of 23-Dec-2023 07:59, No significant change was found Confirmed by PAO SAMS [facility], CHELSIE ([id number]) on 11/26/2024 11:53:56 AM Referred By: Electronically Signed By: CHELSIE CEDENO MD FAC Transcribed By: MUS Signed By Chelsie Cedeno MD, FACC 11/26/24 1153 Normal [facility] ECH echo transthoracicon ECH echo transthoracic [facility] Main [place] [id number] Echocardiogram Signed Patient: Atiya Jha MR#: [id number] : 1940 Acct:[id number] Age/Sex: 84 / F ADM Date: 11/25/24 Loc: Room: [address] [place] [address] Type: ADM IN Attending Dr: Nolan Ballesteros DO Ordering Provider: Katya Borges MD Date of Service: 11/25/24 ECH/ON LICENSE OF [facility] echo transthoracic: Chest Pain Copies to: Chelsie Cedeno MD, FACC Katya Borges MD Weight: 152 lb Performed By: ANGELA Del Rio BSA: 1.8 m2 BP: 135/75 mmHg HR: 72 Reason For Study: Chest Pain History: CAD, PCI, Anemia, HLD, CHF, CKD Interpretation Summary The left ventricular size and thickness are normal. There are regional wall motion abnormalities as specified. Mild to moderate distal septal and apical hypokinesis Ejection Fraction = 50-55%. A variety of Doppler measurements indicate impaired left ventricular relaxation, which is associated with grade I/IV or mild diastolic dysfunction. Mild valvular aortic stenosis. The aortic valve peak velocity is 224 cm/s. The aortic valve maximum pressure gradient is 20 mmHg. There is mild mitral regurgitation. Procedure/Quality: A two-dimensional transthoracic echocardiogram with color flow, Doppler and injection of contrast agent Definity was performed. The study was technically good in quality. Left Ventricle: The left ventricular size and thickness are normal. Ejection Fraction = 50-55%. A variety of Doppler measurements indicate impaired left ventricular relaxation, which is associated with grade I/IV or mild diastolic dysfunction. There are regional wall motion abnormalities as specified. Mild to moderate distal septal and apical hypokinesis. Left Atrium: The left atrium appears normal in size. The atrial septum appears normal. Right Atrium: The right atrium appears normal in size. Right Ventricle: The right ventricle is normal in size and function. Aortic Valve: The aortic valve is mildly calcified. The aortic valve is trileaflet. Mild valvular aortic stenosis. The aortic valve peak velocity is 224 cm/s. The aortic valve maximum pressure gradient is 20 mmHg. Mitral Valve: The mitral valve is moderately sclerotic. There is mild mitral annular calcification. There is mild mitral regurgitation. Measurements with Normals IVSd: 0.92 cm (0.7-1.1 cm)LVIDd: 4.5 cm (3.7-5.4 cm) LVPWd: 0.88 cm (0.7-1.1 cm)LVIDs: 2.6 cm (2.3-3.6 cm) LA dimension: 3.0 cm (2.3-4.0 cm)Ao root diam: 2.5 cm(2.0-3.6 cm) asc Aorta Diam: 2.8 cm(2.1-3.4cm) Doppler with Normals RVSP(TR): 27.4 mmHg (18-35mmHg) LV V1 max: 89.4 cm/sec (0.7-1.7m/s)MV E max edmar: 83.9 cm/sec(0.8-1.3m/s) MV A max edmar: 132.2 cm/sec(0.0-0.0m/s) MV E/A: 0.63 (<1.5) MMode/2D Measurements Calculations RVDd: 2.4 cm FS: 42.5 % Ao root area: LVOT diam: 2.1 cm TAPSE: 2.0 cm EDV(Teich): 4.8 cm2 LVOT area: 3.6 cm2 RV S Edmar: 90.9 ml 17.3 cm/sec ESV(Teich): 23.8 ml EF(Teich): 73.8 % __ LVLd ap4: 7.9 cm SV(MOD-sp4): LAV(MOD-sp4): LA A2 area: 10.6 cm2 EDV(MOD-sp4): 64.0 ml 18.5 ml 137.0 ml LAV(MOD-sp2): LA A4 area: 9.9 cm2 LVLs ap4: 7.3 cm 27.0 ml LA length (vol): ESV(MOD-sp4): 4.2 cm 73.0 ml LA vol: 21.2 ml EF(MOD-sp4): 46.7 % LA vol index: 12.0 ml/m2 Doppler Measurements Calculations MV dec time: MV V2 max: E/E' lat: 14.8 MV P1/2t max edmar: 0.23 sec 154.2 cm/sec E/E' med: 14.3 97.7 cm/sec MV max PG: MV P1/2t: 56.8 msec 54.0 mmHg MV V2 mean: MVA(P1/2t): 3.9 cm2 86.3 cm/sec MV dec slope: MV mean P.5 cm/sec2 3.6 mmHg MV V2 VTI: 38.5 cm MVA(VTI): 2.0 cm2 __ Ao V2 max: LV V1 max PG: MR max edmar: TV max P.0 mmHg 223.7 cm/sec 3.2 mmHg 367.6 cm/sec Ao max PG: LV V1 mean PG: MR max P.0 mmHg 1.4 mmHg 54.1 mmHg Ao mean PG: LV V1 mean: 12.9 mmHg 52.7 cm/sec Ao V2 mean: LV V1 VTI: 21.4 cm 169.0 cm/sec Ao V2 VTI: 51.8 cm JEANA(I,D): 1.5 cm2 JEANA(V,D): 1.4 cm2 __ TR max edmar: 236.5 cm/sec TR max P.4 mmHg RAP systole: 5.0 mmHg Transcribed By: GAY Performed At: 11/26/24 0919 Signed By: Chelsie Cedeno MD, [facility] 11/26/24 1528 Normal [facility] Troponin I High Sensitivityo n 11-26-2024 Troponin I High Sensitivity 909 Off scale high 0-15 [facility] Comment on above: Result Comment: Crit ical Result : Called to and read back by: EDUARD JASSO at: 11/26/2024 00:54:14 by:BROOKS The Troponin units of report have been changed to meet the Chest Pain Accreditation requirement, element EC5.M1l2. Troponin units are changed from pg/ml to ng/L. Also, the decimal is removed and results are in whole numbers. PERFORMED BY: [address] [place] [address] PATHOLOGIST YARN TWISTER JAIDEN MONAHAN M.D. Performed By: #### H S TROP #### [address] Anti-Xa UF Heparinon 025 Anti-Xa UF Heparin 1.04 [IU]/mL Off scale high 0.30-0.70 [facility] Comment on above: Result Comment: Resu lts called at 1831 on 11/25/24. Use the aPTT protocol when triglycerides are > 800 mg/dL, total bilirubin is > 20 mg/dL and/or patient has received a DOAC, Fondaparinux or LMWH within 72 hours AND baseline anti-Xa level is > 0.7 units/mL PERFORMED BY: [place] [address] PATHOLOGIST YARN TWISTER JAIDEN MONAHAN M.D. Performed By: #### C MP, MG, CBC #### [address] BNP ser/plasOrdered By: Jimbo Aranda on 11-25-2024 Natriuretic peptide B (Bld) [Mass/Vol] 981.0 pg/mL High 5-100 [facility] Comment on above: Result Comment: PERF ORMED BY: [place] [address] PATHOLOGIST YARN TWISTER JAIDEN MONAHAN M.D. Performed By: #### C K, HS TROP #### [address] Basic Metabolic Panelon 11-02 Anion gap [Moles/Vol] 10.4 mmol/L Normal 6.0-15.0 [facility] Comment on above: Performed By: #### C K, HS TROP #### [place] [address] [place] Calcium [Mass/Vol] 9.5 mg/dL Normal 8.6-10.3 [facility] Comment on above: Performed By: #### C K, HS TROP #### [place] [address] [place] Chloride [Moles/Vol] 109 mmol/L High 98-107 [facility] Comment on above: Performed By: #### C K, HS TROP #### [facility] [address] [place] [address] [place] CO2 [Moles/Vol] 26.6 mmol/L Normal 21.0-31.0 [facility] Comment on above: Performed By: #### C K, HS TROP #### [facility] [address] [place] [address] [place] Creatinine [Mass/Vol] 0.79 mg/dL Normal 0.60-1.20 [facility] Comment on above: Performed By: #### C K, HS TROP #### [facility] [address] [place] [address] [place] Creatinine Clr Calc Pharmacy 46.26 Normal [facility] Comment on above: Result Comment: PERF ORMED BY: [place] [address] PATHOLOGIST YARN TWISTER JAIDEN MONAHAN M.D. Performed By: #### C K, HS TROP #### [facility] [address] [place] [address] [place] GFR/1.73 sq M.predicted MDRD (S/P/Bld) [Vol rate/Area] mL/min/{1.73_m2} Normal [facility] Comment on above: Performed By: #### C K, HS TROP #### [facility] [address] [place] [address] [place] Glucose [Mass/Vol] 108 mg/dL High 70-100 [facility] Comment on above: Result Comment: [place] Glucose Reference Range is dependent on time and content of last meal. Glucose of more than 200 mg/dL in a nonstressed, ambulatory subject supports the diagnosis of Diabetes Mellitus. ADA recommended reference range Performed By: #### C K, HS TROP #### [facility] [address] [place] [address] [place] Potassium [Moles/Vol] 4.0 mmol/L Normal 3.5-5.1 [facility] Comment on above: Performed By: #### C K, HS TROP #### [facility] [address] Sodium [Moles/Vol] 142 mmol/L Normal 136-145 [facility] Comment on above: Performed By: #### C K, HS TROP #### [facility] [address] Urea nitrogen [Mass/Vol] 13 mg/dL Normal 7-25 [facility] Comment on above: Performed By: #### C K, HS TROP #### [facility] [address] Basophils Auto (Bld) [#/Vol] Ordered By: Jerson Aranda on 11-25-2024 Basophils (Bld) [#/Vol] Automated basophil count 0.0-0.2 [facility] Basophils/100 WBC Auto (Bld) Ordered By: Jerson Aranda on 11-25-2024 Basophils/100 WBC (Bld) Automated basophil % . [facility] Calcium [Mass/volume] in Ser um or PlasmaOrdered By: Jerson Aranda on 11-25-2024 Calcium [Mass/Vol] Calcium [Mass/volume ] in Serum or Plasma 8.6-10.3 [facility] Carbon dioxide, total [Moles /volume] in Serum or PlasmaOrdered By: Jerson Aranda on 11-25-2024 CO2 [Moles/Vol] Carbon dioxide, tota l [Moles/volume] in Serum or Plasma 21.0-31.0 [facility] Chloride [Moles/volume] in S katiana or PlasmaOrdered By: Jerson Aranda on 11-25-2024 Chloride [Moles/Vol] Chloride [Moles/vol ume] in Serum or Plasma High 98-107 [facility] Complete Blood Count Auto Di ffon 11-25-2024 Basophils (Bld) [#/Vol] 0.1 10*3/uL Normal 0.0-0.2 [facility] Comment on above: Result Comment: PERF ORMED BY: [place] [address] PATHOLOGIST YARN TWISTER JAIDEN MONAHAN M.D. Performed By: #### C K, HS TROP #### [facility] [address] [place] [address] [place] Basophils/100 WBC (Bld) 1.3 % Normal . [facility] Comment on above: Performed By: #### C K, HS TROP #### [facility] [address] [place] [address] [place] Eosinophils (Bld) [#/Vol] 0.2 10*3/uL Normal 0.0-0.45 [facility] Comment on above: Performed By: #### C K, HS TROP #### [facility] [address] [place] [address] [place] Eosinophils/100 WBC (Bld) 3.4 % Normal . [facility] Comment on above: Performed By: #### C K, HS TROP #### [address] Erythrocyte distribution width (RBC) [Ratio] 13.8 % Normal 11.9-15.3 [facility] Comment on above: Performed By: #### C K, HS TROP #### [address] Hematocrit (Bld) [Volume fraction] 35.2 % Normal 34.0-46.4 [facility] Comment on above: Performed By: #### C K, HS TROP #### [place] [address] [place] Hemoglobin (Bld) [Mass/Vol] 12.1 g/dL Normal 11.8-15.4 [facility] Comment on above: Performed By: #### C K, HS TROP #### [facility] [address] [place] [address] [place] Lymphocytes (Bld) [#/Vol] 2.0 10*3/uL Normal 1.00-4.8 [facility] Comment on above: Performed By: #### C K, HS TROP #### [facility] [address] [place] [address] [place] Lymphocytes/100 WBC (Bld) 32.0 % Normal . [facility] Comment on above: Performed By: #### C K, HS TROP #### [address] MCH (RBC) [Entitic mass] 32.4 pg Normal 24.7-34.3 [facility] Comment on above: Performed By: #### C K, HS TROP #### [address] MCV (RBC) [Entitic vol] 94.0 fL Normal 80-100 [facility] Comment on above: Performed By: #### C K, HS TROP #### [address] Mean Corpuscular HGB Conc 34.5 g/dL Normal 32.0-35.0 [facility] Comment on above: Performed By: #### C K, HS TROP #### [address] Monocytes (Bld) [#/Vol] 0.5 10*3/uL Normal 0.0-0.8 [facility] Comment on above: Performed By: #### C K, HS TROP #### [address] Monocytes/100 WBC (Bld) 17.01 % Normal 0.00-20.00 [facility] Comment on above: Performed By: #### C K, HS TROP #### [address] Monocytes/100 WBC (Bld) 8.6 % Normal . [facility] Comment on above: Performed By: #### C K, HS TROP #### [address] Neutrophils (Bld) [#/Vol] 3.4 10*3/uL Normal 1.8-7.7 [facility] Comment on above: Performed By: #### C K, HS TROP #### [address] Neutrophils/100 WBC (Bld) 54.7 % Normal . [facility] Comment on above: Performed By: #### C K, HS TROP #### [facility] [address] [place] [address] [place] NRBC% 0.1 /100{WBC} Normal 0-0.5 [facility] Comment on above: Performed By: #### C K, HS TROP #### [facility] [address] Platelet mean volume (Bld) [Entitic vol] 7.5 fL Normal 6.3-10.[address] [facility] Comment on above: Performed By: #### C K, HS TROP #### [facility] [address] [place] [address] [place] Platelets (Bld) [#/Vol] 178 10*3/uL Normal 150-450 [facility] Comment on above: Performed By: #### C K, HS TROP #### [facility] [address] RBC (Bld) [#/Vol] 3.75 10*6/uL Normal 3.60-5.00 [facility] Comment on above: Performed By: #### C K, HS TROP #### [facility] [address] [place] [address] [place] WBC (Bld) [#/Vol] 6.2 10*3/uL Normal 3.8-11.6 [facility] Comment on above: Performed By: #### C K, HS TROP #### [facility] [address] [place] [address] [place] Creatine kinase [Enzymatic a ctivity/volume] in Serum or PlasmaOrdered By: Jerson Aranda on 11-25-2024 CK [Catalytic activity/Vol] Creatine kinase [Enzymatic activity/volume] in Serum or Plasma [facility] CK [Catalytic activity/Vol] 129 U/L Normal [facility] Comment on above: Performed By: #### C K, HS TROP #### [facility] [address] [place] [id number] [place] Creatinine [Mass/volume] in Serum or PlasmaOrdered By: Jerson rAanda on 11-25-2024 Creatinine [Mass/Vol] Creatinine [Mass/volume] in Serum or Plasma 0.60-1.20 [facility] Eosinophils Auto (Bld) [#/Vo l]Ordered By: Jerson Aranda on 11-25-2024 Eosinophils (Bld) [#/Vol] Automated eosinophil count 0.0-0.45 [facility] Eosinophils/100 WBC Auto (Bl d)Ordered By: Jerson Aranda on 11-25-2024 Eosinophils/100 WBC (Bld) Automated eosinophil % . [facility] Erythrocyte distribution wid th Auto (RBC) [Ratio]Ordered By: Jerson Aranda on 11-25-2024 Erythrocyte distribution width (RBC) [Ratio] Erythrocyte distribution width [Ratio] by Automated count 11.9-15.3 [facility] Glucose [Mass/volume] in Ser um or PlasmaOrdered By: Jerson Aranda on 11-25-2024 Glucose [Mass/Vol] Glucose [Mass/volume ] in Serum or Plasma High 70-100 [facility] Comment on above: ADA recommended refe rence rangeRandom Glucose Reference Range is dependent on time and content of last meal. Glucose of more than 200 mg/dL in a nonstressed, ambulatory subject supports the diagnosis of Diabetes Mellitus. Hematocrit Auto (Bld) [Volum e fraction]Ordered By: Jerson Aranda on 11-25-2024 Hematocrit (Bld) [Volume fraction] Hematocrit [Volume Fraction] of Blood by Automated count 34.0-46.4 [facility] Hemoglobin [Mass/volume] in BloodOrdered By: Jerson Aranda 11-25-2024 Hemoglobin (Bld) [Mass/Vol] Hemoglobin [Mass/volume] in Blood 11.8-15.4 [facility] INR in Platelet poor plasma by Coagulation assayOrdered By: Jerson Aranda on 11-25-2024 INR Coag (PPP) [Relative time] INR in Platelet poor plasma by Coagulation assay [facility] Comment on above: INR Therapeutic Rang e A) Pre- and Peroperative OAT started two weeks before surgery. NOT HIP SURGERY: 1.5 - 2.5 HIP SURGERY: 2 - 3B) Primary and secondary prevention of venous THROMBOSIS: 2 - 3C) Active venous thrombosis, pulmonary embolismand prevention of recurrent venous thrombosis: 2 - 3D) Prevention of arterial thromboembolismincluding patients with mechanical heart valves: 3 - 4.5 INR Coag (PPP) [Relative time] 0.9 {INR} Normal [facility] Comment on above: INR Therapeutic Rang e [...] with mechanical heart valves: 3 - 4.5 PERFORMED BY: [place] [address] PATHOLOGIST YARN TWISTER JAIDEN MONAHAN M.D. Performed By: #### C K, TROP #### [address] Leukocytes [#/volume] correc law for nucleated erythrocytes in Blood by Automated counOrdered By: Jerson Aranda on 11-25-2024 WBC corrected for nucl RBC Auto (Bld) [#/Vol] Leukocytes [#/volume] corrected for nucleated erythrocytes in Blood by Automated coun 3.8-11.6 [facility] Lymphocytes Auto (Bld) [#/Vo l]Ordered By: Jerson Aranda on 11-25-2024 Lymphocytes (Bld) [#/Vol] Lymphocytes [#/volume] in Blood by Automated count 1.00-4.8 [facility] Lymphocytes/100 WBC Auto (Bl d)Ordered By: Jerson Aranda on 11-25-2024 Lymphocytes/100 WBC (Bld) Lymphocytes/100 leukocytes in Blood by Automated count . [facility] MCH Auto (RBC) [Entitic mass ]Ordered By: Jerson Aranda on 11-25-2024 MCH (RBC) [Entitic mass] MCH [Entitic mass] by Automated count 24.7-34.3 [facility] MCHC Auto (RBC) [Mass/Vol]Or dered By: Jerson Aranda on 11-25-2024 MCHC (RBC) [Mass/Vol] MCHC [Mass/volume] by Automated count 32.0-35.0 [facility] MCV Auto (RBC) [Entitic vol] Ordered By: Jerson Aranda on 11-25-2024 MCV (RBC) [Entitic vol] MCV [Entitic volume] by Automated count 80-100 [facility] Magnesium [Mass/volume] in S katiana or PlasmaOrdered By: Jerson Aranda on 11-25-2024 Magnesium [Mass/Vol] Magnesium [Mass/vol ume] in Serum or Plasma 1.9-2.7 [facility] Magnesium [Mass/Vol] 1.9 mg/dL Normal 1.9-2.7 [facility] Comment on above: Result Comment: PERF ORMED BY: [place] [address] PATHOLOGIST YARN TWISTER JAIDEN MONAHAN M.D. Performed By: #### C K, HS TROP #### [address] Monocyte distribution width [Entitic volume] in Blood by AutomatedOrdered By: Jerson Aranda on 11-25-2024 Monocyte distribution width Auto (Bld) [Entitic vol] Monocyte distribution width [Entitic volume] in Blood by Automated 0.00-20.00 [facility] Monocyte distribution width Auto (Bld) [Entitic vol] 17.01 % 0.00-20.00 [facility] Monocytes Auto (Bld) [#/Vol] Ordered By: Jerson Aranda on 11-25-2024 Monocytes (Bld) [#/Vol] Automated blood monocyte count 0.0-0.8 [facility] Monocytes/100 WBC Auto (Bld) Ordered By: Jerson Aranda on 11-25-2024 Monocytes/100 WBC (Bld) Automated monocyte % . [facility] Natriuretic peptide B [Mass/ Vol]Ordered By: Jerson Aranda on 11-25-2024 Natriuretic peptide B (Bld) [Mass/Vol] BNP ser/plas High 5-100 [facility] Neutrophils Auto (Bld) [#/Vo l]Ordered By: Jerson Aranda on 11-25-2024 Neutrophils (Bld) [#/Vol] Neutrophils [#/volume] in Blood by Automated count 1.8-7.7 [facility] Neutrophils/100 WBC Auto (Bl d)Ordered By: Jerson Aranda on 11-25-2024 Neutrophils/100 WBC (Bld) Automated neutrophil % . [facility] No Panel InformationOrdered By: Jerson Aranda on 11-25-2024 Estimated GFR (CKD-EPI) > 60.0 mL/Min [facility] Creatinine Clearance (Chem 46.26 [facility] Nucleated erythrocytes [Pres ence] in Blood by Automated countOrdered By: Jerson Aranda on 11-25-2024 Nucleated RBC Auto Ql (Bld) Nucleated erythrocytes [Presence] in Blood by Automated count 0-0.5 [facility] Platelet mean volume Auto (B ld) [Entitic vol]Ordered By: Jerson Aranda on 11-25-2024 Platelet mean volume (Bld) [Entitic vol] Platelet mean volume [Entitic volume] in Blood by Automated count 6.3-10.7 [facility] Platelets Auto (Bld) [#/Vol] Ordered By: Jerson Aranda on 11-25-2024 Platelets (Bld) [#/Vol] Platelets [#/volume] in Blood by Automated count 150-450 [facility] Potassium [Moles/volume] in Serum or PlasmaOrdered By: Jerson Aranda 11-25-2024 Potassium [Moles/Vol] Potassium [Moles/volume] in Serum or Plasma 3.5-5.1 [facility] Prothrombin time (PT)Ordered By: Jerson Aranda on 11-25-2024 PT Coag (PPP) [Time] Prothrombin time (PT) 9.0- 12.9 [facility] Comment on above: A hematocrit value g reater than 55% may lead to inaccurate results in coagulation testing. Patients having hematocrit values >55% require a special collection tube for coagulation studies. Please contact the laboratory at [phone] for redraw instructions. PT Coag (PPP) [Time] 10.8 s Normal 9.0-12.9 [facility] Comment on above: A hematocrit value g reater than 55% may lead to inaccurate results in coagulation testing. Patients having hematocrit values >55% require a special collection tube for coagulation studies. Please contact the laboratory at [phone] for redraw instructions. Result Comment: A he matocrit value greater than 55% may lead to inaccurate results in coagulation testing. Patients having hematocrit values >55% require a special collection tube for coagulation studies. Please contact the laboratory at [phone] for redraw instructions. Performed By: #### C K, HS TROP #### [address] [address] [facility] RBC Auto (Bld) [#/Vol]Ordere d By: Jerson Aranda on 11-25-2024 RBC (Bld) [#/Vol] Erythrocytes [#/volu me] in Blood by Automated count 3.60-5.00 [facility] Serum or plasma anion gap de terminationOrdered By: Jerson Aranda on 11-25-2024 Anion gap [Moles/Vol] Serum or plasma an ion gap determination 6.0-15.0 [facility] Sodium [Moles/volume] in Ser um or PlasmaOrdered By: Jerson Aranda on 11-25-2024 Sodium [Moles/Vol] Sodium [Moles/volume ] in Serum or Plasma 136-145 [facility] Troponin I High Sensitivityo n 11-25-2024 Troponin I High Sensitivity 779 Off scale high 0-15 [facility] Comment on above: Result Comment: Crit ical Result : Called to and read back by: BABITA JASSO at: 11/25/2024 21:24:04 by:JUAN CARLOS The Troponin units of report have been changed to meet the Chest Pain Accreditation requirement, element EC5.M1l2. Troponin units are changed from pg/ml to ng/L. Also, the decimal is removed and results are in whole numbers. PERFORMED BY: [facility] [address] [place] [address] PATHOLOGIST YARN TWISTER JAIDEN MONAHAN M.D. Performed By: #### C K, HS TROP #### [address] Troponin I High Sensitivity 864 Off scale high 0-15 [facility] Comment on above: Result Comment: Crit ical Result : Called to and read back by: ASHLIE GEE at: 11/25/2024 18:11:05 by:JUAN CARLOS The Troponin units of report have been changed to meet the Chest Pain Accreditation requirement, element EC5.M1l2. Troponin units are changed from pg/ml to ng/L. Also, the decimal is removed and results are in whole numbers. PERFORMED BY: [place] [address] PATHOLOGIST YARN TWISTER JAIDEN MONAHAN M.D. Performed By: #### H S TROP #### [address] Troponin I High Sensitivity 736 Off scale high 0-15 [facility] Comment on above: Result Comment: Crit ical Result : Called to and read back by: LISA JOHNSON at: 11/25/2024 15:47:56 by:KAM The Troponin units of report have been changed to meet the Chest Pain Accreditation requirement, element EC5.M1l2. Troponin units are changed from pg/ml to ng/L. Also, the decimal is removed and results are in whole numbers. PERFORMED BY: [place] [address] PATHOLOGIST YARN TWISTER JAIDEN MONAHAN M.D. Performed By: #### C K, HS TROP #### [place] [id number] [facility] Troponin I.cardiac [Mass/vol ume] in Serum or Plasma by Detection limit <= 0.01 ng/Ordered By: Jerson Aranda on 11-25-2024 Troponin I.cardiac DL <= 0.01 ng/mL [Mass/Vol] Troponin I.cardiac [Mass/volume] in Serum or Plasma by Detection limit <= 0.01 ng/ Critically high 0-15 [facility] Comment on above: Critical Result : Ca lled to and read back by: LISA JOHNSON at: 11/25/2024 15:47:56 by:KAMThe Troponin units of report have been changed to meet the Chest Pain Accreditation requirement, element EC5.M1l2. Troponin units are changed from pg/ml to ng/L. Also, the decimal is removed and results are in whole numbers. Urea nitrogen [Mass/volume] in Serum or PlasmaOrdered By: Jerson Aranda on 11-25-2024 Urea nitrogen [Mass/Vol] Urea nitrogen [Mass/volume] in Serum or Plasma 02-24 [facility] WBC Auto (Bld) [#/Vol]Ordere d By: Jerson Aranda on 11-25-2024 WBC (Bld) [#/Vol] Leukocytes [#/volume ] in Blood by Automated count 3.8-11.6 [facility] X-ray reportOrdered By: Ruth Love on 11-25-2024 Study report [place] [address] XRay Report Signed Patient: Atiya Jha MR#: [id number] : 1940 Acct:[id number] Age/Sex: 84 / F ADM Date: 5 Loc: ER Room: Type: PRE ER Attending Dr: Copies to: JATIN ZHU~ Ordering Provider: JATIN ZHU Date of Service: 11/25/24 XR/XR chest 2V*: Chest Pain PA AND LATERAL CHEST: CLINICAL HISTORY: Chest pain, shortness of breath and weakness COMPARISON: 12/23/2023 There is no focal parenchymal consolidation, effusion or pneumothorax. The cardiac, hilar and mediastinal silhouettes are similar. There is no vascular congestion. The visualized bony thorax is intact. Mild endplate spurring is noted. XR/XR chest 2V* IMPRESSION: NO ACUTE CARDIOPULMONARY ABNORMALITY. Impression dictated by: Whitley Love M.D. 11/25/2024 2:06 PM Dictation Location: [place] [address] Transcribed By: [facility] 11/25/24 140 Dictated By: Whitley Love MD 11/25/241404 Signed By: 11/25/24 1406 [facility] Work Phone: XR chest 2V*on 11-25-2024 XR chest 2V* [facility] Main [place] [address] [place] [address] XRay Report Signed Patient: Atiya Jha MR#: [id number] : 1940 Acct:[id number] Age/Sex: 84 / F ADM Date: 11/25/24 Loc: ER Room: Type: PRE ER Attending Dr: Copies to: MARKO PROVIDER Ordering Provider: JATNI ZHU Date of Service: 11/25/24 XR/XR chest 2V*: Chest Pain PA AND LATERAL CHEST: CLINICAL HISTORY: Chest pain, shortness of breath and weakness COMPARISON: 12/23/2023 There is no focal parenchymal consolidation, effusion or pneumothorax. The cardiac, hilar and mediastinal silhouettes are similar. There is no vascular congestion. The visualized bony thorax is intact. Mild endplate spurring is noted. XR/XR chest 2V* IMPRESSION: NO ACUTE CARDIOPULMONARY ABNORMALITY. Impression dictated by: Whitley Love M.D. 11/25/2024 2:06 PM Dictation Location: [place] [address] Transcribed By: [facility] 11/25/24 140 Dictated By: Whitley Love MD 11/25/241404 Signed By: 11/25/24 140 Normal [facility] Activated partial thrombopla stin time (aPTT) in platelet poor plasma by coagulation aon 11-15-2024 aPTT Coag (PPP) [Time] Activated partial thromboplastin time (aPTT) in platelet poor plasma by coagulation a 22.3-36.2 [facility] aPTT Coag (PPP) [Time] 26.7 s 22.3-36.2 [facility] Basophils Auto (Bld) [#/Vol] on 11-15-2024 Basophils (Bld) [#/Vol] Automated basophil count 0.0-0.1 [facility] Basophils (Bld) [#/Vol] 0.0 10 3/uL 0.0-0.1 [facility] Basophils/100 WBC Auto (Bld) on 11-15-2024 Basophils/100 WBC (Bld) Automated basophil % 0.2-2.0 [facility] Basophils/100 WBC (Bld) 0.3 % 0.2-2.0 [facility] Cholesterol in LDL Calc [Mas s/Vol]on 11-15-2024 Cholesterol in LDL [Mass/Vol] Cholesterol in LDL [Mass/volume] in Serum or Plasma by calculation [facility] Comment on above: <100 mg/dl [id number] 0-129 mg/dl NEAR OR ABOVE [id number] mg/dl BORDERLINE [id number] mg/dl HIGH>190 mg/dl VERY HIGH Cholesterol in LDL [Mass/Vol] 93.8 mg/dL [facility] Comment on above: <100 mg/dl [id number] 0-129 mg/dl NEAR OR ABOVE [id number] mg/dl BORDERLINE [id number] mg/dl HIGH>190 mg/dl VERY HIGH Cholesterol in VLDL Calc [Ma ss/Vol]on 11-15-2024 Cholesterol in VLDL [Mass/Vol] Cholesterol in VLDL [Mass/volume] in Serum or Plasma by calculation [facility] Cholesterol in VLDL [Mass/Vol] 29.2 mg/dL [facility] Eosinophils/100 WBC Auto (Bl d)on 11-15-2024 Eosinophils/100 WBC (Bld) Automated eosinophil % 0.9-7.0 [facility] Eosinophils/100 WBC (Bld) 3.2 % 0.9-7.0 [facility] Erythrocyte distribution wid th Auto (RBC) [Ratio]on 11-15-2024 Erythrocyte distribution width (RBC) [Ratio] Erythrocyte distribution width [Ratio] by Automated count 11.0-15.0 [facility] Erythrocyte distribution width (RBC) [Ratio] 12.9 % 11.0-15.0 [facility] Estimated glomerular filtrat ion rate (GFR) non- Americanon 11-15-2024 GFR/1.73 sq M.predicted among non-blacks MDRD (S/P/Bld) [Vol rate/Area] Estimated glomerular filtration rate (GFR) non- Low >=60 mL/min/1.73m 2 [facility] GFR/1.73 sq M.predicted among non-blacks MDRD (S/P/Bld) [Vol rate/Area] 45 mL/min/{1.73_m2} Low >=60 mL/min/1.73m 2 [facility] Hematocrit Auto (Bld) [Volum e fraction]on 11-15-2024 Hematocrit (Bld) [Volume fraction] Hematocrit [Volume Fraction] of Blood by Automated count 36.0-48.0 [facility] Hematocrit (Bld) [Volume fraction] 40.2 % 36.0-48.0 [facility] Hemoglobin [Mass/volume] in Bloodon 11-15-2024 Hemoglobin (Bld) [Mass/Vol] Hemoglobin [Mass/volume] in Blood 12.0-16.0 [facility] Hemoglobin (Bld) [Mass/Vol] 13.3 g/dL 12.0-16.0 [facility] INR in Platelet poor plasma by Coagulation assayon 11-15-2024 INR Coag (PPP) [Relative time] INR in Platelet poor plasma by Coagulation assay [facility] Comment on above: DESIRED INR:2.0-3.0 CONDITIONS NOT LISTED BELOW2.5-3.5 FOR PROSTHETIC HEART VALVE REPLACEMENT2.5-3.5 RECURRENT THROMBOSIS INR Coag (PPP) [Relative time] 1.00 {INR} [facility] Comment on above: DESIRED INR:2.0-3.0 CONDITIONS NOT LISTED BELOW2.5-3.5 FOR PROSTHETIC HEART VALVE REPLACEMENT2.5-3.5 RECURRENT THROMBOSIS Laboratory - Chemistry and C hemistry - challengeon 11-15-2024 ALT [Catalytic activity/Vol] 23 U/L 14-59 [facility] AST [Catalytic activity/Vol] 22 U/L 15-37 [facility] Calcium [Mass/Vol] 10.3 mg/dL High 8.5-10.1 [facility] Chloride [Moles/Vol] 100 mmol/L 98-107 [facility] Cholesterol [Mass/Vol] 169 mg/dL <=200 [facility] Cholesterol in HDL [Mass/Vol] 46 mg/dL 40-60 [facility] Comment on above: > or =60 mg/dl - LOW CARDIOVASCULAR RISK<40 mg/dl - HIGH CARDIOVASCULAR RISK CO2 [Moles/Vol] 29.3 mmol/L 21.0-32.0 [facility] Creatinine [Mass/Vol] 1.15 mg/dL High 0.55-1.02 [facility] GFR/1.73 sq M.predicted MDRD (S/P/Bld) [Vol rate/Area] 54 mL/min/{1.73_m2} Low >=60 mL/min/1.73m 2 [facility] Glucose [Mass/Vol] 105 mg/dL 74-106 [facility] Potassium [Moles/Vol] 4.1 mmol/L 3.5-5.1 [facility] Sodium [Moles/Vol] 139 mmol/L 136-145 [facility] Triglyceride [Mass/Vol] 146 mg/dL <=150 [facility] Urea nitrogen [Mass/Vol] 20.0 mg/dL High 7.0-18.0 [facility] Urea nitrogen/Creatinine [Mass ratio] 17.4 mg/mg [facility] Laboratory - Hematology and Cell countson 11-15-2024 Immature granulocytes/100 WBC (Bld) 0.0 % 0.0-0.5 [facility] Leukocytes [#/volume] correc law for nucleated erythrocytes in Blood by Automated counon 11-15-2024 WBC corrected for nucl RBC Auto (Bld) [#/Vol] Leukocytes [#/volume] corrected for nucleated erythrocytes in Blood by Automated coun .0-11.0 [facility] WBC corrected for nucl RBC Auto (Bld) [#/Vol] 5.9 10 3/uL 4.0-11.0 [facility] Lymphocytes Auto (Bld) [#/Vo l]on 11-15-2024 Lymphocytes (Bld) [#/Vol] Lymphocytes [#/volume] in Blood by Automated count 1.2-3.8 [facility] Lymphocytes (Bld) [#/Vol] 1.9 10 3/uL 1.2-3.8 [facility] Lymphocytes/100 WBC Auto (Bl d)on 11-15-2024 Lymphocytes/100 WBC (Bld) Lymphocytes/100 leukocytes in Blood by Automated count 20.5-60.0 [facility] Lymphocytes/100 WBC (Bld) 32.5 % 20.5-60.0 [facility] MCH Auto (RBC) [Entitic mass ]on 11-15-2024 MCH (RBC) [Entitic mass] MCH [Entitic mass] by Automated count 26.7-34.0 [facility] MCH (RBC) [Entitic mass] 31.7 pg 26.7-34.0 [facility] MCHC Auto (RBC) [Mass/Vol]on 11-15-2024 MCHC (RBC) [Mass/Vol] MCHC [Mass/volume] by Automated count 29.9-35.2 [facility] MCHC (RBC) [Mass/Vol] 33.1 g/dL 29.9-35.2 [facility] MCV Auto (RBC) [Entitic vol] on 11-15-2024 MCV (RBC) [Entitic vol] MCV [Entitic volume] by Automated count 81.0-99.0 [facility] MCV (RBC) [Entitic vol] 95.7 fL 81.0-99.0 [facility] Monocytes Auto (Bld) [#/Vol] on 11-15-2024 Monocytes (Bld) [#/Vol] Automated blood monocyte count 0.3-0.8 [facility] Monocytes (Bld) [#/Vol] 0.6 10 3/uL 0.3-0.8 [facility] Monocytes/100 WBC Auto (Bld) on 11-15-2024 Monocytes/100 WBC (Bld) Automated monocyte % 1.7-12.0 [facility] Monocytes/100 WBC (Bld) 9.7 % 1.7-12.0 [facility] Neutrophils Auto (Bld) [#/Vo l]on 11-15-2024 Neutrophils (Bld) [#/Vol] Neutrophils [#/volume] in Blood by Automated count 1.4-6.5 [facility] Neutrophils (Bld) [#/Vol] 3.2 10 3/uL 1.4-6.5 [facility] Neutrophils/100 WBC Auto (Bl d)on 11-15-2024 Neutrophils/100 WBC (Bld) Automated neutrophil % 43.0-75.0 [facility] Neutrophils/100 WBC (Bld) 54.3 % 43.0-75.0 [facility] No Panel Informationon 11-15 Eosinophils # (Auto) 0.2 10 3/uL 0.0-0.7 [facility] Immature Granulocyte # (Auto) 0.00 10 3/uL 0.00-0.03 [facility] Platelet mean volume Auto (B ld) [Entitic vol]on 11-15-2024 Platelet mean volume (Bld) [Entitic vol] Platelet mean volume [Entitic volume] in Blood by Automated count 9.5-13.5 [facility] Platelet mean volume (Bld) [Entitic vol] 9.7 fL 9.5-13.5 [facility] Platelets Auto (Bld) [#/Vol] on 11-15-2024 Platelets (Bld) [#/Vol] Platelets [#/volume] in Blood by Automated count 150-450 [facility] Platelets (Bld) [#/Vol] 183 10 3/uL 150-450 [facility] Prothrombin time (PT)on 11-01 PT Coag (PPP) [Time] Prothrombin time (PT) 9.0- 11.6 [facility] PT Coag (PPP) [Time] 10.6 s 9.0-11.6 [facility] RBC Auto (Bld) [#/Vol]on RBC (Bld) [#/Vol] Erythrocytes [#/volu me] in Blood by Automated count 4.20-5.40 [facility] RBC (Bld) [#/Vol] 4.20 10 6/uL 4.20-5.40 [facility] Serum or plasma anion gap de terminationon 11-15-2024 Anion gap [Moles/Vol] Serum or plasma an ion gap determination [facility] Anion gap [Moles/Vol] 13.8 mmol/L [facility] Serum or plasma total choles terol/high density lipoprotein (HDL) cholesterol mass josué 11-15-2024 Cholesterol.total/Chol esterol in HDL [Mass ratio] Serum or plasma total cholesterol/high density lipoprotein (HDL) cholesterol mass rat [facility] Comment on above: 3.3 - 4.4 LOW RISK4. 4 - 7.1 AVERAGE RISK7.1 - 11.0 MODERATE RISK>11.0 HIGH RISK Cholesterol.total/Chol esterol in HDL [Mass ratio] 3.7 {ratio} [facility] Comment on above: 3.3 - 4.4 LOW RISK4. 4 - 7.1 AVERAGE RISK7.1 - 11.0 MODERATE RISK>11.0 HIGH RISK ECG 12 Leadon 10-26-2024 [facility] Work Phone: Sinus rhythm with fe w PACs and nonspecific ST[facility]: Laboratory - Chemistry and C hemistry - challengeon 09-09-2024 Bilirubin Ql (U) Negative [facility] Glucose (U) [Mass/Vol] Negative [facility] Ketones Ql (U) Negative [facility] pH (U) 6.0 [pH] [facility] Specific gravity (U) [Rel density] 1.010 [facility] Urobilinogen (U) [Mass/Vol] 0.2 mg/dL [facility] Laboratory - Specimen inform ationon 09-09-2024 Appearance (U) cloudy [facility] Color (U) yellow [facility] Laboratory - Urinalysison Leukocyte esterase Test strip Ql (U) +++ [facility] Nitrite Ql (U) Negative [facility] Protein Ql (U) ++ [facility] No Panel Informationon 09-09 Urine Occult Blood ++ [facility] Basophils Auto (Bld) [#/Vol] on 07-11-2024 Basophils (Bld) [#/Vol] Automated basophil count 0.0-0.1 [facility] Basophils/100 WBC Auto (Bld) on 07-11-2024 Basophils/100 WBC (Bld) Automated basophil % 0.2-2.0 [facility] Cholesterol in LDL Calc [Mas s/Vol]on 07-11-2024 Cholesterol in LDL [Mass/Vol] Cholesterol in LDL [Mass/volume] in Serum or Plasma by calculation [facility] Comment on above: <100 mg/dl [id number] 0-129 mg/dl NEAR OR ABOVE [id number] mg/dl BORDERLINE HEJH200-689 mg/dl HIGH>190 mg/dl VERY HIGH Cholesterol in VLDL Calc [Ma ss/Vol]on 07-11-2024 Cholesterol in VLDL [Mass/Vol] Cholesterol in VLDL [Mass/volume] in Serum or Plasma by calculation [facility] Eosinophils/100 WBC Auto (Bl d)on 07-11-2024 Eosinophils/100 WBC (Bld) Automated eosinophil % 0.9-7.0 [facility] Erythrocyte distribution wid th Auto (RBC) [Ratio]on 07-11-2024 Erythrocyte distribution width (RBC) [Ratio] Erythrocyte distribution width [Ratio] by Automated count 11.0-15.0 [facility] Estimated glomerular filtrat ion rate (GFR) non- Americanon 07-11-2024 GFR/1.73 sq M.predicted among non-blacks MDRD (S/P/Bld) [Vol rate/Area] Estimated glomerular filtration rate (GFR) non- Low >=60 mL/min/1.73m 2 [facility] Globulin Calc (S) [Mass/Vol] on 07-11-2024 Globulin (S) [Mass/Vol] Serum globulin measurement by calculation (mass/volume) [facility] Hematocrit Auto (Bld) [Volum e fraction]on 07-11-2024 Hematocrit (Bld) [Volume fraction] Hematocrit [Volume Fraction] of Blood by Automated count 36.0-48.0 [facility] Hemoglobin [Mass/volume] in Bloodon 07-11-2024 Hemoglobin (Bld) [Mass/Vol] Hemoglobin [Mass/volume] in Blood 12.0-16.0 [facility] Iron binding capacity [Mass/ volume] in Serum or Plasmaon 07-11-2024 Iron binding capacity [Mass/Vol] Iron binding capacity [Mass/volume] in Serum or Plasma 250.0-450.0 [facility] Iron saturation [Mass Fracti on] in Serum or Plasmaon 07-11-2024 Iron saturation [Mass fraction] Iron saturation [Mass Fraction] in Serum or Plasma [facility] Laboratory - Chemistry and C hemistry - challengeon 07-11-2024 Albumin [Mass/Vol] 3.6 g/dL 3.4-5.0 [facility] ALP [Catalytic activity/Vol] 54 U/L 46-116 [facility] ALT [Catalytic activity/Vol] 19 U/L 14-59 [facility] AST [Catalytic activity/Vol] 19 U/L 15-37 [facility] Bilirubin [Mass/Vol] 0.9 mg/dL 0.2-1.0 [facility] Calcium [Mass/Vol] 8.8 mg/dL 8.5-10.1 [facility] Chloride [Moles/Vol] 107 mmol/L 98-107 [facility] Cholesterol [Mass/Vol] 167 mg/dL <=200 [facility] Cholesterol in HDL [Mass/Vol] 45 mg/dL 40-60 [facility] Comment on above: > or =60 mg/dl - LOW CARDIOVASCULAR RISK<40 mg/dl - HIGH CARDIOVASCULAR RISK CO2 [Moles/Vol] 27.9 mmol/L 21.0-32.0 [facility] Creatinine [Mass/Vol] 1.02 mg/dL 0.55-1.02 [facility] Ferritin [Mass/Vol] 73.0 ng/mL 8.0-252.0 [facility] GFR/1.73 sq M.predicted MDRD (S/P/Bld) [Vol rate/Area] mL/min/{1.73_m2} >=60 mL/min/1.73m 2 [facility] Glucose [Mass/Vol] 89 mg/dL 74-106 [facility] Iron [Mass/Vol] 88.0 ug/dL 50.0-170.0 [facility] Potassium [Moles/Vol] 3.7 mmol/L 3.5-5.1 [facility] Protein [Mass/Vol] 6.5 g/dL 6.4-8.2 [facility] Sodium [Moles/Vol] 141 mmol/L 136-145 [facility] Triglyceride [Mass/Vol] 112 mg/dL <=150 [facility] Urea nitrogen [Mass/Vol] 13.0 mg/dL 7.0-18.0 [facility] Urea nitrogen/Creatinine [Mass ratio] 12.7 mg/mg [facility] Laboratory - Hematology and Cell countson 07-11-2024 Immature granulocytes/100 WBC (Bld) 0.2 % 0.0-0.5 [facility] Leukocytes [#/volume] correc law for nucleated erythrocytes in Blood by Automated counon 07-11-2024 WBC corrected for nucl RBC Auto (Bld) [#/Vol] Leukocytes [#/volume] corrected for nucleated erythrocytes in Blood by Automated coun 4.0-11.0 [facility] Lymphocytes Auto (Bld) [#/Vo l]on 07-11-2024 Lymphocytes (Bld) [#/Vol] Lymphocytes [#/volume] in Blood by Automated count 1.2-3.8 [facility] Lymphocytes/100 WBC Auto (Bl d)on 07-11-2024 Lymphocytes/100 WBC (Bld) Lymphocytes/100 leukocytes in Blood by Automated count 20.5-60.0 [facility] MCH Auto (RBC) [Entitic mass ]on 07-11-2024 MCH (RBC) [Entitic mass] MCH [Entitic mass] by Automated count 26.7-34.0 [facility] MCHC Auto (RBC) [Mass/Vol]on 07-11-2024 MCHC (RBC) [Mass/Vol] MCHC [Mass/volume] by Automated count 29.9-35.2 [facility] MCV Auto (RBC) [Entitic vol] on 07-11-2024 MCV (RBC) [Entitic vol] MCV [Entitic volume] by Automated count 81.0-99.0 [facility] Monocytes Auto (Bld) [#/Vol] on 07-11-2024 Monocytes (Bld) [#/Vol] Automated blood monocyte count 0.3-0.8 [facility] Monocytes/100 WBC Auto (Bld) on 07-11-2024 Monocytes/100 WBC (Bld) Automated monocyte % 1.7-12.0 [facility] Neutrophils Auto (Bld) [#/Vo l]on 07-11-2024 Neutrophils (Bld) [#/Vol] Neutrophils [#/volume] in Blood by Automated count 1.4-6.5 [facility] Neutrophils/100 WBC Auto (Bl d)on 07-11-2024 Neutrophils/100 WBC (Bld) Automated neutrophil % 43.0-75.0 [facility] No Panel Informationon 07-11 Eosinophils # (Auto) 0.2 10 3/uL 0.0-0.7 [facility] Folate 15.10 ng/mL 8.60-58.90 [facility] Immature Granulocyte # (Auto) 0.01 10 3/uL 0.00-0.03 [facility] Vitamin B12 Level >2000 pg/mL Abnormal [id number] [facility] Comment on above: Performed at: [facility] [employer] [place] [id number] Director: Selwyn Daniel PhD, Phone: [phone] Platelet mean volume Auto (B ld) [Entitic vol]on 07-11-2024 Platelet mean volume (Bld) [Entitic vol] Platelet mean volume [Entitic volume] in Blood by Automated count Low 9.5-13.5 [facility] Platelets Auto (Bld) [#/Vol] on 07-11-2024 Platelets (Bld) [#/Vol] Platelets [#/volume] in Blood by Automated count 150-450 [facility] RBC Auto (Bld) [#/Vol]on RBC (Bld) [#/Vol] Erythrocytes [#/volu me] in Blood by Automated count Low 4.20-5.40 [facility] Serum or plasma albumin/glob ulin mass ratioon 07-11-2024 Albumin/Globulin [Mass ratio] Serum or plasma albumin/globulin mass ratio [facility] Serum or plasma anion gap de terminationon 07-11-2024 Anion gap [Moles/Vol] Serum or plasma an ion gap determination [facility] Serum or plasma total choles terol/high density lipoprotein (HDL) cholesterol mass josué 07-11-2024 Cholesterol.total/Chol esterol in HDL [Mass ratio] Serum or plasma total cholesterol/high density lipoprotein (HDL) cholesterol mass rat [facility] Comment on above: 3.3 - 4.4 LOW RISK4. 4 - 7.1 AVERAGE RISK7.1 - 11.0 MODERATE RISK>11.0 HIGH RISK Laboratory - Chemistry and C hemistry - challengeon 07-01-2024 Bilirubin Ql (U) Negative [facility] Glucose (U) [Mass/Vol] Negative [facility] Ketones Ql (U) Negative [facility] pH (U) 6.5 [pH] [facility] Specific gravity (U) [Rel density] 1.015 [facility] Urobilinogen (U) [Mass/Vol] 0.2 mg/dL [facility] Laboratory - Specimen inform ationon 07-01-2024 Appearance (U) cloudy [facility] Color (U) yellow [facility] Laboratory - Urinalysison Leukocyte esterase Test strip Ql (U) Moderate [facility] [facility] Nitrite Ql (U) Negative [facility] Protein Ql (U) 30 [facility] No Panel Informationon 07-01 Urine Occult Blood large [facility] XR Hip - right 3 [facility] Result: May 31, 2024 x-rays AP and lateral of the right hip demonstrate a Press-Fit hip replacement in good position alignment without signs of loosening or failure. Impression: Stable appearance of right total hip replacement Reinaldo Suazo D.O. [facility] Radiology Study observation (narrative) [facility] ECG 12 Leadon 05-30-2024 [facility] Work Phone: MR LUMBAR SPINE WO CONTRASTo n 05-17-2024 [...] Order Comment: MRI l umbar spine w/o. YASMIN Trinidad Panel Informationon 05-10 Aidan Suazo DO 05/10/2024 5:02 PM Trigger Point Injection (CPT [address]01 [place] [address]): right gluteus willian on 05/10/2024 1:50 PM Indications: pain Details: 21 G needle Medications: 40 mg methylPREDNISolone acetate 40 MG/ML Outcome: tolerated well, no immediate complications Procedure, treatment alternatives, risks and benefits explained, specific risks discussed. [facility] No Panel Informationon 04-29 Devin Birmingham NP 04/29/2024 4:13 PM Trigger Point Injection (CP[place] 78281 [place] 78577): right gluteus willian on 04/29/2024 4:11 PM Indications: pain Details: 22 G needle Medications: 40 mg methylPREDNISolone acetate 40 MG/ML Site cleaned with isopropyl alcohol. Procedure, treatment alternatives, risks and benefits explained, specific risks discussed. Consent was given by the patient. [facility] Laboratory - Chemistry and C hemistry - challengeon 04-25-2024 Bilirubin Ql (U) Negative [facility] Glucose (U) [Mass/Vol] Negative [facility] Ketones Ql (U) 1.005 [facility] pH (U) 5.0 [pH] [facility] Specific gravity (U) [Rel density] 1.010 [facility] Urobilinogen (U) [Mass/Vol] 0.2 mg/dL [facility] Laboratory - Specimen inform ationon 04-25-2024 Appearance (U) cloudy [facility] Color (U) yellow [facility] Laboratory - Urinalysison Leukocyte esterase Test strip Ql (U) moderate [facility] Nitrite Ql (U) Negative [facility] Protein Ql (U) trace [facility] No Panel Informationon 04-25 Urine Occult Blood 9.0 [facility] Activated partial thrombopla stin time (aPTT) in platelet poor plasma by coagulation aon 04-07-2024 aPTT Coag (PPP) [Time] 26.5 s 22.3-36.2 [facility] Basophils Auto (Bld) [#/Vol] on 04-07-2024 Basophils (Bld) [#/Vol] 0.0 10 3/uL 0.0-0.1 [facility] Basophils/100 WBC Auto (Bld) on 04-07-2024 Basophils/100 WBC (Bld) 0.6 % 0.2-2.0 [facility] Eosinophils/100 WBC Auto (Bl d)on 04-07-2024 Eosinophils/100 WBC (Bld) 5.6 % 0.9-7.0 [facility] Erythrocyte distribution wid th Auto (RBC) [Ratio]on 04-07-2024 Erythrocyte distribution width (RBC) [Ratio] 13.7 % 11.0-15.0 [facility] Estimated glomerular filtrat ion rate (GFR) non- Americanon 04-07-2024 GFR/1.73 sq M.predicted among non-blacks MDRD (S/P/Bld) [Vol rate/Area] mL/min/{1.73_m2} >=60 [facility] Hematocrit Auto (Bld) [Volum e fraction]on 04-07-2024 Hematocrit (Bld) [Volume fraction] 35.3 % Low 36.0-48.0 [facility] Hemoglobin [Mass/volume] in Bloodon 04-07-2024 Hemoglobin (Bld) [Mass/Vol] 11.8 g/dL Low 12.0-16.0 [facility] INR in Platelet poor plasma by Coagulation assayon 04-07-2024 INR Coag (PPP) [Relative time] 0.96 {INR} [facility] Comment on above: DESIRED INR:2.0-3.0 CONDITIONS NOT LISTED BELOW2.5-3.5 FOR PROSTHETIC HEART VALVE REPLACEMENT2.5-3.5 RECURRENT THROMBOSIS Laboratory - Chemistry and C hemistry - challengeon 04-07-2024 Calcium [Mass/Vol] 8.9 mg/dL 8.5-10.1 [facility] Chloride [Moles/Vol] 106 mmol/L 98-107 [facility] CO2 [Moles/Vol] 26.6 mmol/L 21.0-32.0 [facility] Creatinine [Mass/Vol] 0.81 mg/dL 0.55-1.02 [facility] GFR/1.73 sq M.predicted MDRD (S/P/Bld) [Vol rate/Area] mL/min/{1.73_m2} >=60 [facility] Glucose [Mass/Vol] 107 mg/dL High 74-106 [facility] Potassium [Moles/Vol] 4.1 mmol/L 3.5-5.1 [facility] Sodium [Moles/Vol] 141 mmol/L 136-[facility] Urea nitrogen [Mass/Vol] 16.0 mg/dL 7.0-18.0 [facility] Urea nitrogen/Creatinine [Mass ratio] 19.8 mg/mg [facility] Laboratory - Hematology and Cell countson 04-07-2024 Immature granulocytes/100 WBC (Bld) 0.4 % 0.0-0.5 [facility] Leukocytes [#/volume] correc law for nucleated erythrocytes in Blood by Automated counon 04-07-2024 WBC corrected for nucl RBC Auto (Bld) [#/Vol] 5.0 10 3/uL 4.0-11.0 [facility] Lymphocytes Auto (Bld) [#/Vo l]on 04-07-2024 Lymphocytes (Bld) [#/Vol] 1.5 10 3/uL 1.2-3.8 [facility] Lymphocytes/100 WBC Auto (Bl d)on 04-07-2024 Lymphocytes/100 WBC (Bld) 29.5 % 20.5-60.0 [facility] MCH Auto (RBC) [Entitic mass ]on 04-07-2024 MCH (RBC) [Entitic mass] 31.7 pg 26.7-34.0 [facility] MCHC Auto (RBC) [Mass/Vol]on 04-07-2024 MCHC (RBC) [Mass/Vol] 33.4 g/dL 29.9-35.2 [facility] MCV Auto (RBC) [Entitic vol] on 04-07-2024 MCV (RBC) [Entitic vol] 94.9 fL 81.0-99.0 [facility] Monocytes Auto (Bld) [#/Vol] on 04-07-2024 Monocytes (Bld) [#/Vol] 0.5 10 3/uL 0.3-0.8 [facility] Monocytes/100 WBC Auto (Bld) on 04-07-2024 Monocytes/100 WBC (Bld) 10.2 % 1.7-12.0 [facility] Neutrophils Auto (Bld) [#/Vo l]on 04-07-2024 Neutrophils (Bld) [#/Vol] 2.7 10 3/uL 1.4-6.5 [facility] Neutrophils/100 WBC Auto (Bl d)on 04-07-2024 Neutrophils/100 WBC (Bld) 53.7 % 43.0-75.0 [facility] No Panel Informationon 04-07 Eosinophils # (Auto) 0.3 10 3/uL 0.0-0.7 [facility] Immature Granulocyte # (Auto) 0.02 10 3/uL 0.00-0.03 [facility] Platelet mean volume Auto (B ld) [Entitic vol]on 04-07-2024 Platelet mean volume (Bld) [Entitic vol] 9.7 fL 9.5-13.5 [facility] Platelets Auto (Bld) [#/Vol] on 04-07-2024 Platelets (Bld) [#/Vol] 158 10 3/uL 150-450 [facility] Prothrombin time (PT)on PT Coag (PPP) [Time] 10.2 s 9.0-11.6 [facility] RBC Auto (Bld) [#/Vol]on RBC (Bld) [#/Vol] 3.72 10 6/uL Low 4.20-5.40 [facility] Serum or plasma anion gap de terminationon 04-07-2024 Anion gap [Moles/Vol] 12.5 mmol/L [facility] Ambulatory Visit Summaryon 0 03-01-2024 Ambulatory Visit Summary Ambulatory Visit Summary ATIYA JHA :1940 Visit Date:03/01/2024 Ambulatory Visit Instructions Your Diagnosis Urethral polyp Cystocele with rectocele Uterine prolapse Urge incontinence History of UTI Anticoagulated Your Care Team Attending Physician - SYL SAMS, Jerson Santiago Primary Care Physician - IVAN BARRETO DO This Is Your Medications List [...] Up with SYL SAMS, ELIZABETH Lara When: Where: [facility] [address], [place] [address]- Medications What How Much When Instructions Unchanged [...] your vag (more content not included)... Normal [facility] Urology Office/Clinic Noteon 03-01-2024 Urology Office/Clinic Note [...] Urethral caruncle) 01/29/[address] Wisdom - urethral meatus caruncle present [1]. Pt [...] Cystocele, unspecified) 01/29/[address] Wisdom - Grade 4 cystocele, Grade 2 rectocele [1]. Had pessary fitted by Dr Wisdom on 02/11/24. See procedure section. 3. Uterine prolapse (N81.4: Uterovaginal prolapse, unspecified) 01/29/[address] Wisdom - Grade 1 [2]. 4. Urge incontinence (N39.41: Urge incontinence) Not taking any bladder meds. 5. History of UTI (Z87.440: Personal history of urinary (tract) infections) 01/28/28 >100k E. Coli [3] 02/08/24 UA small blood [4] 6. Anticoagulated (Z79.01: equipment [employer] (current) use of anticoagulants) Pt recently had CA with heart stents. She finished taking Brillinta at the end of January. She is taking daily baby ASA. [5] Follow-up With When Contact Information SYL SMAS, Jerson Santiago, URL [facility] [address], [place] [address]- Additional Instructions: schedule excision of urethral polyp [...] Tab Mi (more content not included)... Normal [facility] Comment on above: Result Comment: Elec tronically Signed By: Jerson STREETER MD\.br\Date and Time Signed: 03/01/24 14:50 EDT\.br\Electronically Co-Signed By: Romelia Candelario\.br\Date and Time Co-Signed: 03/01/24 14:46 EDT Urine culture routineOrdered By: Jordan Wisdom on 02-24-2024 Bacteria identified Cx Nom (U) No Growth 2 Days [facility] Ambulatory Visit Summaryon 0 02-08-2024 Ambulatory Visit Summary Ambulatory Visit Summary ATIYA JHA :1940 Visit Date:02/08/2024 Ambulatory Visit Instructions Your Diagnosis Cystocele with rectocele Uterine prolapse Urinary incontinence Urethral caruncle History of UTI Anticoagulated Rectocele Your Care Team Attending Physician - Antonina Shelton Primary Care Physician - IVAN BARRETO DO This Is Your Medications List [...] Schedule the Following Appointments Follow Up with Jerson STREETER MD, URL When: Comments: our scheduler maintenance will be calling you to schedule cysto Where: [address] [place] [address]- Medications What How Much When Instructions Unchanged [...] pr (more content not included)... Normal [facility] Office/Clinic Noteon 02-08-2024 Urology Office/Clinic Note [...] caused the bleeding, she then saw Dr. Wisdom on 01/28 where he did confirmed her grade 1 uterine prolapse as well as grade 4 cystocele, grade 2 rectocele. Patient is trying Estrace cream for 2 weeks 1x a night right now with a few days left and has not noticed a difference. Per Dr. Wisdom's last note patient is to follow up [...] Skin: No rashes or suspicious lesions Assessment/Plan [employer] referred by Dr. Wisdom. Pt is here today with her daughter, Cheyenne. 1. Cystocele with rectocele (N81.10: Cystocele, unspecified) 01/29/[address] Wisdom - Grade 4 cystocele, Grade 2 rectocele Pt seen by Dr. Hermilo Laughlin on 01/28/24 for pessary maintenance. Pt has had [address] Laughlin which helped her symptoms but caused bleeding. Dr. Laughlin referred patient to Dr. Wisdom who started patient on estrogen cream x2 weeks to help prepare the vaginal lining for pessary placement. Pt has an appointment with Dr. Wisdom this in hopes to place pessary without complications. Per Dr. Wisdom's note, if pessary does not help symptoms or pt experiences bleeding, pt to consider surgical intervention. Pt does wish to use pessary if able and would like to avoid surgery. -F/U with Dr. Wisdom this -Call our office with update regarding treatment plan Ordered: E&M of New Patient Moderate 45-59 Min 54467 Urology Procedure Order 2. Uterine prolapse (N81.4: Uterovaginal prolapse, unspecified) 01/29/[address] Wisdom - Grade 1 -See #1 Ordered: E&M of New Patient Moderate 45-59 Min 37704 Urology Procedure Order 3. Urinary incontinence (R32: Unspecified urinary incontinence) BBSQ 28 Pt reports urge incontinence which has worsened over the last year. She is using about 2-3 pads per day. -See #1 Ordered: E&M of New Patient Moderate 45-59 Min 11396 Urnls Dip Stick Auto w/o Microscopy POC [id number] Urology Procedure Order 4. 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 Wisdom - urethral meatus caruncle present Discussed with patient findings per Dr. Wisdom. Pt and daughter aware that this will need looked into further with cystoscopy and possible biopsy. Pt agreeable to move forward with Dr. Streeter as her is already a patient of his. -Schedule cysto with Dr. Streeter Ordered: E&M of New Patient Moderate 45-59 Min [id number] Urology Procedure Order 5. History of UTI [...] for an (more content not included)... Normal [facility] Comment on above: Result Comment: Elec tronically Signed By: Allison MALONE, Antonina Majano\.br\Date and Time Signed: 02/08/24 11:51 EDT Laboratory - Chemistry and C hemistry - challengeon 01-29-2024 Bilirubin Ql (U) Negative [facility] Glucose (U) [Mass/Vol] [facility] Ketones Ql (U) Negative [facility] pH (U) 5 [pH] [facility] Specific gravity (U) [Rel density] 1.005 [facility] Urobilinogen (U) [Mass/Vol] 0.2 mg/dL [facility] Laboratory - Specimen inform ationon 01-29-2024 Appearance (U) cloudy [facility] Color (U) lightyellow [facility] Laboratory - Urinalysison Leukocyte esterase Test strip Ql (U) +++ [facility] Nitrite Ql (U) Positive [facility] Protein Ql (U) Negative [facility] No Panel Informationon 01-28 Urine Occult Blood +++ [facility] Activated partial thrombopla stin time (aPTT) in platelet poor plasma by coagulation aOrdered By: Alexei Stone on 12-23-2023 aPTT Coag (PPP) [Time] 35.0 s 25.1-36.5 [facility] Comment on above: A hematocrit value g reater than 55% may lead to inaccurate results in coagulation testing. Patients having hematocrit values >55% require a special collection tube for coagulation studies. Please contact the laboratory at [phone] for redraw instructions. Alanine aminotransferase [En zymatic activity/volume] in Serum or PlasmaOrdered By: Alexei Stone on 12-23-2023 ALT [Catalytic activity/Vol] 22 U/L 7-52 [facility] Albumin [Mass/volume] in Ser um or Plasma by Bromocresol green (BCG) dye binding methoOrdered By: Alexei Stone on 12-23-2023 Albumin BCG dye [Mass/Vol] 4.1 g/dL 3.5-5.7 [facility] Alkaline phosphatase [Enzyma tic activity/volume] in Serum or PlasmaOrdered By: Alexei Stone on 12-23-2023 ALP [Catalytic activity/Vol] 50 U/L 34-104 [facility] Aspartate aminotransferase [ Enzymatic activity/volume] in Serum or PlasmaOrdered By: Alexei Stone on 12-23-2023 AST [Catalytic activity/Vol] 18 U/L 13-39 [facility] Basophils Auto (Bld) [#/Vol] Ordered By: Alexei Stone on 12-23-2023 Basophils (Bld) [#/Vol] 0.0 10*3/uL 0.0-0.2 [facility] Basophils/100 WBC Auto (Bld) Ordered By: Alexei Stone on 12-23-2023 Basophils/100 WBC (Bld) 0.5 % . [facility] Bilirubin Test strip Ql (U)O rdered By: Alexei Stone on 12-23-2023 Bilirubin Ql (U) Negative Negative [facility] Bilirubin.direct [Mass/volum e] in Serum or PlasmaOrdered By: Alexei Stone on 12-23-2023 Bilirubin.direct [Mass/Vol] 0.20 mg/dL High 0.03-0.18 [facility] Bilirubin.total [Mass/volume ] in Serum or PlasmaOrdered By: Alexei Stone on 12-23-2023 Bilirubin [Mass/Vol] 1.1 mg/dL High 0.3-1.0 [facility] Calcium [Mass/volume] in Ser um or PlasmaOrdered By: Alexei Stone on 12-23-2023 Calcium [Mass/Vol] 9.6 mg/dL 8.6-10.3 [facility] Carbon dioxide, total [Moles /volume] in Serum or PlasmaOrdered By: Alexei Stone on 12-23-2023 CO2 [Moles/Vol] 24.8 mmol/L 21.0-31.0 [facility] Chloride [Moles/volume] in S katiana or PlasmaOrdered By: Alexei Stone on 12-23-2023 Chloride [Moles/Vol] 108 mmol/L High 98-107 [facility] Color Auto (U)Ordered By: Ian red Bertha on 12-23-2023 Color (U) Yellow Yellow [facility] Creatine kinase [Enzymatic a ctivity/volume] in Serum or PlasmaOrdered By: Alexei Stone on 12-23-2023 CK [Catalytic activity/Vol] 99 U/L 30-223 [facility] Creatinine [Mass/volume] in Serum or PlasmaOrdered By: Alexei Stone on 12-23-2023 Creatinine [Mass/Vol] 0.83 mg/dL 0.60-1.20 [facility] Eosinophils Auto (Bld) [#/Vo l]Ordered By: Alexei Stone on 12-23-2023 Eosinophils (Bld) [#/Vol] 0.3 10*3/uL 0.0-0.45 [facility] Eosinophils/100 WBC Auto (Bl d)Ordered By: Alexei Stone on 12-23-2023 Eosinophils/100 WBC (Bld) 4.1 % . [facility] Erythrocyte distribution wid th Auto (RBC) [Ratio]Ordered By: Alexei Stone on 12-23-2023 Erythrocyte distribution width (RBC) [Ratio] 14.8 % 11.9-15.3 [facility] Globulin Calc (S) [Mass/Vol] Ordered By: Alexei Stone on 12-23-2023 Globulin (S) [Mass/Vol] 2.5 g/dL [facility] Glucose [Mass/volume] in Ser um or PlasmaOrdered By: Alexei Stone on 12-23-2023 Glucose [Mass/Vol] 104 mg/dL High 70-100 [facility] Comment on above: ADA recommended refe rence rangeRandom Glucose Reference Range is dependent on time and content of last meal. Glucose of more than 200 mg/dL in a nonstressed, ambulatory subject supports the diagnosis of Diabetes Mellitus. Hematocrit Auto (Bld) [Volum e fraction]Ordered By: Alexei Stone on 12-23-2023 Hematocrit (Bld) [Volume fraction] 31.8 % Low 34.0-46.4 [facility] Hemoglobin [Mass/volume] in BloodOrdered By: Alexei Stone on 12-23-2023 Hemoglobin (Bld) [Mass/Vol] 10.9 g/dL Low 11.8-15.4 [facility] INR in Platelet poor plasma by Coagulation assayOrdered By: Alexei Stone on 12-23-2023 INR Coag (PPP) [Relative time] 1.0 {INR} [facility] Comment on above: INR Therapeutic Rang e A) Pre- and Peroperative OAT started two weeks before surgery. NOT HIP SURGERY: 1.5 - 2.5 HIP SURGERY: 2 - 3B) Primary and secondary prevention of venous THROMBOSIS: 2 - 3C) Active venous thrombosis, pulmonary embolismand prevention of recurrent venous thrombosis: 2 - 3D) Prevention of arterial thromboembolismincluding patients with mechanical heart valves: 3 - 4.5 Ketones Auto test strip (U) [Mass/Vol]Ordered By: Alexei Stone on 12-23-2023 Ketones (U) [Mass/Vol] Negative Negative [facility] Leukocytes [#/volume] correc law for nucleated erythrocytes in Blood by Automated counOrdered By: Alexei Stone on 12-23-2023 WBC corrected for nucl RBC Auto (Bld) [#/Vol] 6.2 10*3/uL 3.8-11.6 [facility] Lymphocytes Auto (Bld) [#/Vo l]Ordered By: Alexei Stone on 12-23-2023 Lymphocytes (Bld) [#/Vol] 1.0 10*3/uL 1.00-4.8 [facility] Lymphocytes/100 WBC Auto (Bl d)Ordered By: Alexei Stone on 12-23-2023 Lymphocytes/100 WBC (Bld) 16.2 % . [facility] MCH Auto (RBC) [Entitic mass ]Ordered By: Alexei Stone on 12-23-2023 MCH (RBC) [Entitic mass] 32.2 pg 24.7-34.3 [facility] MCHC Auto (RBC) [Mass/Vol]Or dered By: Alexei Stone on 12-23-2023 MCHC (RBC) [Mass/Vol] 34.2 g/dL 32.0-35.0 [facility] MCV Auto (RBC) [Entitic vol] Ordered By: Alexei Stone on 12-23-2023 MCV (RBC) [Entitic vol] 94.2 fL 80-100 [facility] Monocyte distribution width [Entitic volume] in Blood by AutomatedOrdered By: Alexei Stone on 12-23-2023 Monocyte distribution width Auto (Bld) [Entitic vol] 18.01 % 0.00-20.00 [facility] Monocytes Auto (Bld) [#/Vol] Ordered By: Alexei Stone on 12-23-2023 Monocytes (Bld) [#/Vol] 0.6 10*3/uL 0.0-0.8 [facility] Monocytes/100 WBC Auto (Bld) Ordered By: Alexei Stone on 12-23-2023 Monocytes/100 WBC (Bld) 10.3 % . [facility] Natriuretic peptide B [Mass/ Vol]Ordered By: Alexei Stone on 12-23-2023 Natriuretic peptide B (Bld) [Mass/Vol] 495.0 pg/mL High 5-100 [facility] Neutrophils Auto (Bld) [#/Vo l]Ordered By: Alexei Stone on 12-23-2023 Neutrophils (Bld) [#/Vol] 4.2 10*3/uL 1.8-7.7 [facility] Neutrophils/100 WBC Auto (Bl d)Ordered By: Alexei Stone on 12-23-2023 Neutrophils/100 WBC (Bld) 68.9 % . [facility] Nitrite Test strip Ql (U)Ord ered By: Alexei Stone on 12-23-2023 Nitrite Ql (U) Negative Negative [facility] No Panel InformationOrdered By: Alexei Stone on 12-23-2023 Estimated GFR (CKD-EPI) > 60.0 mL/Min [facility] Creatinine Clearance (Chem 50.37 [facility] Nucleated erythrocytes [Pres ence] in Blood by Automated countOrdered By: Alexei Stone on 12-23-2023 Nucleated RBC Auto Ql (Bld) 0.1 /100{WBC} 0-0.5 [facility] Platelet mean volume Auto (B ld) [Entitic vol]Ordered By: Alexei Stone on 12-23-2023 Platelet mean volume (Bld) [Entitic vol] 7.2 fL 6.3-10.7 [facility] Platelets Auto (Bld) [#/Vol] Ordered By: Alexei Stone on 12-23-2023 Platelets (Bld) [#/Vol] 199 10*3/uL 150-450 [facility] Potassium [Moles/volume] in Serum or PlasmaOrdered By: Alexei Stone on 12-23-2023 Potassium [Moles/Vol] 4.0 mmol/L 3.5-5.1 [facility] Protein Auto test strip (U) [Mass/Vol]Ordered By: Alexei Stone on 12-23-2023 Protein (U) [Mass/Vol] Negative Negative [facility] Protein [Mass/volume] in Ser um or PlasmaOrdered By: Alexei Stone on 12-23-2023 Protein [Mass/Vol] 6.6 g/dL 6.4-8.9 [facility] Prothrombin time (PT)Ordered By: Alexei Stone on 12-23-2023 PT Coag (PPP) [Time] 11.7 s 9.0-12.9 [facility] Comment on above: A hematocrit value g reater than 55% may lead to inaccurate results in coagulation testing. Patients having hematocrit values >55% require a special collection tube for coagulation studies. Please contact the laboratory at [phone] for redraw instructions. RBC Auto (Bld) [#/Vol]Ordere d By: Alexei Stone on 12-23-2023 RBC (Bld) [#/Vol] 3.38 10*6/uL Low 3.60-5.00 [facility] Serum or plasma albumin/glob ulin mass ratioOrdered By: Alexei Stone on 12-23-2023 Albumin/Globulin [Mass ratio] 1.6 {ratio} [facility] Serum or plasma anion gap de terminationOrdered By: Alexei Stone on 12-23-2023 Anion gap [Moles/Vol] 13.2 mmol/L 6.0-15.0 [facility] Serum or plasma non-glucuron idated bilirubin measurement (mass/volume)Ordered By: Alexei Stone on 12-23-2023 Bilirubin.indirect [Mass/Vol] 0.9 mg/dL [facility] Sodium [Moles/volume] in Ser um or PlasmaOrdered By: Alexei Stone on 12-23-2023 Sodium [Moles/Vol] 142 mmol/L 136-145 [facility] Specific gravity Auto test s trip (U) [Rel density]Ordered By: Alexei Stone on 12-23-2023 Specific gravity (U) [Rel density] 1.010 1.001-1.030 [facility] Troponin I.cardiac [Mass/vol ume] in Serum or Plasma by Detection limit <= 0.01 ng/Ordered By: Alexei Stone on 12-23-2023 Troponin I.cardiac DL <= 0.01 ng/mL [Mass/Vol] 10.0 pg/mL 0.0-15.0 [facility] Urea nitrogen [Mass/volume] in Serum or PlasmaOrdered By: Alexei Stone on 12-23-2023 Urea nitrogen [Mass/Vol] 15 mg/dL 7-25 [facility] Urine clarity by refractomet ry automatedOrdered By: lAexei Stone on 12-23-2023 Clarity Refractometry automated (U) Clear Clear [facility] Urine glucose measurement by automated test strip (mass/volume)Ordered By: Alexei Stone on 12-23-2023 Glucose Auto test strip (U) [Mass/Vol] Normal mg/dL Normal [facility] Urine hemoglobin detection b y automated test stripOrdered By: Alexei Stone on 12-23-2023 Hemoglobin Auto test strip Ql (U) Negative Negative [facility] Urine leukocyte esterase det ection by automated test stripOrdered By: Alexei Stone on 12-23-2023 Leukocyte esterase Auto test strip Ql (U) Negative Negative [facility] Urobilinogen Auto test strip (U) [Mass/Vol]Ordered By: Alexei Stone on 12-23-2023 Urobilinogen (U) [Mass/Vol] Normal mg/dL Normal [facility] WBC Auto (Bld) [#/Vol]Ordere d By: Alexei Stone on 12-23-2023 WBC (Bld) [#/Vol] 6.2 10*3/uL 3.8-11.6 [facility] pH Auto test strip (U)Ordere d By: Alexei Stone on 12-23-2023 pH (U) 6.0 [pH] 5.0-9.0 [facility] Automated urine specific gra vity by refractometryon 11-30-2023 Specific gravity Refractometry automated (U) [Rel density] 1.010 1.005-1.025 [facility] Bilirubin Auto test strip (U ) [Mass/Vol]on 11-30-2023 Bilirubin (U) [Mass/Vol] Negative NEGATIVE [facility] Color Auto (U)on 11-30-2023 Color (U) YELLOW YELLOW [facility] Glucose [Mass/volume] in Uri ne by Test stripon 11-30-2023 Glucose Test strip (U) [Mass/Vol] Negative NEGATIVE [facility] Ketones Auto test strip (U) [Mass/Vol]on 11-30-2023 Ketones (U) [Mass/Vol] Negative NEGATIVE [facility] No Panel Informationon 11-29 Urine Microscopic Review NO [facility] Protein Auto test strip (U) [Mass/Vol]on 11-30-2023 Protein (U) [Mass/Vol] Negative NEG/[facility] Specific gravity Auto test s trip (U) [Rel density]on 11-30-2023 Specific gravity (U) [Rel density] CLEAR CLEAR [facility] Urine hemoglobin detection b y automated test stripon 11-30-2023 Hemoglobin Auto test strip Ql (U) Negative NEGATIVE [facility] Urine nitrite detection by a utomated test stripon 11-30-2023 Nitrite Auto test strip Ql (U) Negative NEGATIVE [facility] Urobilinogen Auto test strip (U) [Mass/Vol]on 11-30-2023 Urobilinogen Qn (U) 1.0 {Heavenly'U}/dL 0.2-1.0 [facility] pH Auto test strip (U)on pH (U) 6.0 [pH] 5.0-9.0 [facility] Basophils Auto (Bld) [#/Vol] on 11-25-2023 Basophils (Bld) [#/Vol] 0.0 10 3/uL 0.0-0.1 [facility] Basophils/100 WBC Auto (Bld) on 11-25-2023 Basophils/100 WBC (Bld) 0.3 % 0.2-2.0 [facility] Eosinophils/100 WBC Auto (Bl d)on 11-25-2023 Eosinophils/100 WBC (Bld) 4.1 % 0.9-7.0 [facility] Erythrocyte distribution wid th Auto (RBC) [Ratio]on 11-25-2023 Erythrocyte distribution width (RBC) [Ratio] 13.6 % 11.0-15.0 [facility] Estimated glomerular filtrat ion rate (GFR) non- Americanon 11-25-2023 GFR/1.73 sq M.predicted among non-blacks MDRD (S/P/Bld) [Vol rate/Area] 40 mL/min/{1.73_m2} Low >=60 [facility] Hematocrit Auto (Bld) [Volum e fraction]on 11-25-2023 Hematocrit (Bld) [Volume fraction] 34.3 % Low 36.0-48.0 [facility] Hemoglobin [Mass/volume] in Bloodon 11-25-2023 Hemoglobin (Bld) [Mass/Vol] 11.3 g/dL Low 12.0-16.0 [facility] Laboratory - Chemistry and C hemistry - challengeon 11-25-2023 Calcium [Mass/Vol] 9.3 mg/dL 8.5-10.1 [facility] Chloride [Moles/Vol] 102 mmol/L 98-107 [facility] CO2 [Moles/Vol] 27.9 mmol/L 21.0-32.0 [facility] Creatinine [Mass/Vol] 1.26 mg/dL High 0.55-1.02 [facility] GFR/1.73 sq M.predicted MDRD (S/P/Bld) [Vol rate/Area] 49 mL/min/{1.73_m2} Low >=60 [facility] Glucose [Mass/Vol] 101 mg/dL 74-106 [facility] Potassium [Moles/Vol] 4.2 mmol/L 3.5-5.1 [facility] Sodium [Moles/Vol] 140 mmol/L 136-145 [facility] Urea nitrogen [Mass/Vol] 21.0 mg/dL High 7.0-18.0 [facility] Urea nitrogen/Creatinine [Mass ratio] 16.7 mg/mg [facility] Laboratory - Hematology and Cell countson 11-25-2023 Immature granulocytes/100 WBC (Bld) 0.2 % 0.0-0.5 [facility] Leukocytes [#/volume] correc law for nucleated erythrocytes in Blood by Automated counon 11-25-2023 WBC corrected for nucl RBC Auto (Bld) [#/Vol] 6.1 10 3/uL 4.0-11.0 [facility] Lymphocytes Auto (Bld) [#/Vo l]on 11-25-2023 Lymphocytes (Bld) [#/Vol] 1.8 10 3/uL 1.2-3.8 [facility] Lymphocytes/100 WBC Auto (Bl d)on 11-25-2023 Lymphocytes/100 WBC (Bld) 29.7 % 20.5-60.0 [facility] MCH Auto (RBC) [Entitic mass ]on 11-25-2023 MCH (RBC) [Entitic mass] 31.1 pg 26.7-34.0 [facility] MCHC Auto (RBC) [Mass/Vol]on 11-25-2023 MCHC (RBC) [Mass/Vol] 32.9 g/dL 29.9-35.2 [facility] MCV Auto (RBC) [Entitic vol] on 11-25-2023 MCV (RBC) [Entitic vol] 94.5 fL 81.0-99.0 [facility] Monocytes Auto (Bld) [#/Vol] on 11-25-2023 Monocytes (Bld) [#/Vol] 0.6 10 3/uL 0.3-0.8 [facility] Monocytes/100 WBC Auto (Bld) on 11-25-2023 Monocytes/100 WBC (Bld) 9.2 % 1.7-12.0 [facility] Neutrophils Auto (Bld) [#/Vo l]on 11-25-2023 Neutrophils (Bld) [#/Vol] 3.4 10 3/uL 1.4-6.5 [facility] Neutrophils/100 WBC Auto (Bl d)on 11-25-2023 Neutrophils/100 WBC (Bld) 56.5 % 43.0-75.0 [facility] No Panel Informationon 11-24 Eosinophils # (Auto) 0.3 10 3/uL 0.0-0.7 [facility] Immature Granulocyte # (Auto) 0.01 10 3/uL 0.00-0.03 [facility] Platelet mean volume Auto (B ld) [Entitic vol]on 11-25-2023 Platelet mean volume (Bld) [Entitic vol] 9.7 fL 9.5-13.5 [facility] Platelets Auto (Bld) [#/Vol] on 11-25-2023 Platelets (Bld) [#/Vol] 217 10 3/uL 150-450 [facility] RBC Auto (Bld) [#/Vol]on RBC (Bld) [#/Vol] 3.63 10 6/uL Low 4.20-5.40 [facility] Serum or plasma anion gap de terminationon 11-25-2023 Anion gap [Moles/Vol] 14.3 mmol/L [facility] Troponin I.cardiac [Mass/vol ume] in Serum or Plasma by Detection limit <= 0.01 ng/Ordered By: Allan Townsend on 11-19-2023 Troponin I.cardiac DL <= 0.01 ng/mL [Mass/Vol] 88.9 pg/mL High 0.0-15.0 [facility] Comment on above: Critical Result : Ca lled to and read back by: NGUYEN BERMUDEZ at: 11/19/2023 07:10:35 by:MLG Activated partial thrombopla stin time (aPTT) in platelet poor plasma by coagulation aOrdered By: Allan Townsend on 11-16-2023 aPTT Coag (PPP) [Time] 31.6 s 25.1-36.5 [facility] Comment on above: A hematocrit value g reater than 55% may lead to inaccurate results in coagulation testing. Patients having hematocrit values >55% require a special collection tube for coagulation studies. Please contact the laboratory at [phone] for redraw instructions. Basophils Auto (Bld) [#/Vol] Ordered By: Allan Townsend on 11-16-2023 Basophils (Bld) [#/Vol] 0.0 10*3/uL 0.0-0.2 [facility] Basophils/100 WBC Auto (Bld) Ordered By: Allan Townsend on 11-16-2023 Basophils/100 WBC (Bld) 0.6 % . [facility] Carbon dioxide, total [Moles /volume] in Serum or PlasmaOrdered By: Allan Townsend on 11-16-2023 CO2 [Moles/Vol] 27.8 mmol/L 21.0-31.0 [facility] Chloride [Moles/volume] in S katiana or PlasmaOrdered By: Allan Townsend on 11-16-2023 Chloride [Moles/Vol] 103 mmol/L 98-107 [facility] Cholesterol [Mass/volume] in Serum or PlasmaOrdered By: Allan Townsend on 11-16-2023 Cholesterol [Mass/Vol] 143 mg/dL 140-200 [facility] Comment on above: Chol less than 200 m g/dl low riskChol 201-239 mg/dl borderline riskChol 240 mg/dl and greater high risk Cholesterol in LDL Calc [Mas s/Vol]Ordered By: Allan Townsend on 11-16-2023 Cholesterol in LDL [Mass/Vol] 74 mg/dL 0-100 [facility] Comment on above: LDL ATP III CLASSIFI CATIONLDL less than 100 mg/dL OptimalLDL 100-129 mg/dL Near or above optimalLDL 130-159 mg/dL Borderline highLDL 160-189 mg/dL HighLDL greater than 189 mg/dL Very high Cholesterol in VLDL Calc [Ma ss/Vol]Ordered By: Allan Townsend on 11-16-2023 Cholesterol in VLDL [Mass/Vol] 32 mg/dL [facility] Creatinine [Mass/volume] in Serum or PlasmaOrdered By: Allan Townsend on 11-16-2023 Creatinine [Mass/Vol] 0.88 mg/dL 0.60-1.20 [facility] Eosinophils Auto (Bld) [#/Vo l]Ordered By: Allan Townsend on 11-16-2023 Eosinophils (Bld) [#/Vol] 0.2 10*3/uL 0.0-0.45 [facility] Eosinophils/100 WBC Auto (Bl d)Ordered By: Allan Townsend on 11-16-2023 Eosinophils/100 WBC (Bld) 3.4 % . [facility] Erythrocyte distribution wid th Auto (RBC) [Ratio]Ordered By: Allan Townsend on 11-16-2023 Erythrocyte distribution width (RBC) [Ratio] 14.5 % 11.9-15.3 [facility] Hematocrit Auto (Bld) [Volum e fraction]Ordered By: Allan Townsend on 11-16-2023 Hematocrit (Bld) [Volume fraction] 35.0 % 34.0-46.4 [facility] Hemoglobin [Mass/volume] in BloodOrdered By: Allan Townsend on 11-16-2023 Hemoglobin (Bld) [Mass/Vol] 12.0 g/dL 11.8-15.4 [facility] INR in Platelet poor plasma by Coagulation assayOrdered By: Allan Townsend on 11-16-2023 INR Coag (PPP) [Relative time] 1.0 {INR} [facility] Comment on above: INR Therapeutic Rang e [...] RBC Auto (Bld) [#/Vol] 5.4 10*3/uL 3.8-11.6 [facility] Lymphocytes Auto (Bld) [#/Vo l]Ordered By: Allan Townsend on 11-16-2023 Lymphocytes (Bld) [#/Vol] 1.5 10*3/uL 1.00-4.8 [facility] Lymphocytes/100 WBC Auto (Bl d)Ordered By: Allan Townsend on 11-16-2023 Lymphocytes/100 WBC (Bld) 28.5 % . [facility] MCH Auto (RBC) [Entitic mass ]Ordered By: Allan Townsend on 11-16-2023 MCH (RBC) [Entitic mass] 31.6 pg 24.7-34.3 [facility] MCHC Auto (RBC) [Mass/Vol]Or dered By: Allan Townsend on 11-16-2023 MCHC (RBC) [Mass/Vol] 34.2 g/dL 32.0-35.0 [facility] MCV Auto (RBC) [Entitic vol] Ordered By: Allan Townsend on 11-16-2023 MCV (RBC) [Entitic vol] 92.4 fL 80-100 [facility] Monocytes Auto (Bld) [#/Vol] Ordered By: Allan Townsend on 11-16-2023 Monocytes (Bld) [#/Vol] 0.5 10*3/uL 0.0-0.8 [facility] Monocytes/100 WBC Auto (Bld) Ordered By: Allan Townsend on 11-16-2023 Monocytes/100 WBC (Bld) 9.6 % . [facility] Neutrophils Auto (Bld) [#/Vo l]Ordered By: Allan Townsend on 11-16-2023 Neutrophils (Bld) [#/Vol] 3.1 10*3/uL 1.8-7.7 [facility] Neutrophils/100 WBC Auto (Bl d)Ordered By: Allan Townsend on 11-16-2023 Neutrophils/100 WBC (Bld) 57.9 % . [facility] No Panel InformationOrdered By: Allan Townsend on 11-16-2023 Estimated GFR (CKD-EPI) > 60.0 mL/Min [facility] Creatinine Clearance (Chem N/A [facility] Nucleated erythrocytes [Pres ence] in Blood by Automated countOrdered By: Allan Townsend on 11-16-2023 Nucleated RBC Auto Ql (Bld) 0.0 /100{WBC} 0-0.5 [facility] Platelet mean volume Auto (B ld) [Entitic vol]Ordered By: Allan Townsend on 11-16-2023 Platelet mean volume (Bld) [Entitic vol] 7.7 fL 6.3-10.7 [facility] Platelets Auto (Bld) [#/Vol] Ordered By: Allan Townsend on 11-16-2023 Platelets (Bld) [#/Vol] 194 10*3/uL 150-450 [facility] Potassium [Moles/volume] in Serum or PlasmaOrdered By: Allan Townsend on 11-16-2023 Potassium [Moles/Vol] 3.8 mmol/L 3.5-5.1 [facility] Prothrombin time (PT)Ordered By: Allan Townsend on 11-16-2023 PT Coag (PPP) [Time] 11.1 s 9.0-12.9 [facility] Comment on above: A hematocrit value g reater than 55% may lead to inaccurate results in coagulation testing. Patients having hematocrit values >55% require a special collection tube for coagulation studies. Please contact the laboratory at [phone] for redraw instructions. RBC Auto (Bld) [#/Vol]Ordere d By: Allan Townsend on 11-16-2023 RBC (Bld) [#/Vol] 3.78 10*6/uL 3.60-5.00 [facility] Serum or plasma anion gap de terminationOrdered By: Allan Townsend on 11-16-2023 Anion gap [Moles/Vol] 10.0 mmol/L 6.0-15.0 [facility] Serum or plasma high density lipoprotein (HDL) cholesterol measurementOrdered By: Allan Townsend on 11-16-2023 Cholesterol in HDL [Mass/Vol] 36 mg/dL 23-92 [facility] Comment on above: HDL CHOL ATP-III CLA SSIFICATION Cardiovascular RiskHDL > or equal to 60 mg/dL LOWHDL < 40 mg/dL HIGH Serum or plasma total choles terol/high density lipoprotein (HDL) cholesterol mass ratOrdered By: Allan Townsend on 11-16-2023 Cholesterol.total/Chol esterol in HDL [Mass ratio] 4.0 {ratio} <5.0 [facility] Sodium [Moles/volume] in Ser um or PlasmaOrdered By: Allan Townsend on 11-16-2023 Sodium [Moles/Vol] 137 mmol/L 136-145 [facility] Triglyceride [Mass/volume] i n Serum or PlasmaOrdered By: Allan Townsend on 11-16-2023 Triglyceride [Mass/Vol] 163 mg/dL High 0-149 [facility] Comment on above: TRIG ATP III CLASSIF ICATIONTRIG less than 150 mg/dL NormalTRIG 150-199 mg/dL Borderline highTRIG 200-500 mg/dL High TRIG greater than 500 mg/dL Very highStandard traceable to the Center for Disease Conrtrol and Prevention (CDC) test method. Urea nitrogen [Mass/volume] in Serum or PlasmaOrdered By: Allan Townsend on 11-16-2023 Urea nitrogen [Mass/Vol] 19 mg/dL 7-25 [facility] WBC Auto (Bld) [#/Vol]Ordere d By: Allan Townsend on 11-16-2023 WBC (Bld) [#/Vol] 5.4 10*3/uL 3.8-11.6 [facility] Heart Perfusion W stress and W radionuclide Bahman 11-10-2023 Abnormal Lexiscan Myoview cardiac perfusion stress test. Moderate anteroseptal myocardial ischemia by perfusion imaging. Small to moderate distal anteroseptal and apical myocardial infarction by perfusion imaging. Abnormal left ventricular systolic function. Left ventricular ejection fraction 62 %. With severe hypokinesis of distal anteroseptal wall and apex When compared to previous study the finding in the LAD territory is new. Signed by: Jamia Ndiaye 11/10/2023 12:04 PM Dictation workstation: [id number] MMODAL Interpreted By: Jamia Ndiaye and Livier Cartwright STUDY: MYOCARDIAL PERFUSION STRESS TEST WITH LEXISCAN Performing facility: [facility], [address] [place] [address], [address], [address] Provider: Geoffrey Santillan MD, [facility] PCP: Dr. Nathalie Barreto Supervising provider: Chelsie Cedeon MD, FACC INDICATION: CAD; SOB; Chest tightness HISTORY: Gender: F; Age: 83 y/o ; Height: HT 165.1 cm cm; Weight: WT 70.761 kg kg. CAD; High Cholesterol; Previous CA; HTN; Chest Pain; SOB; Denies smoking. Cardiac catheterization on 2022. PTCA on 2022. COMPARISON: Previous nuclear testing completed [id number] at [facility]. ACCESSION NUMBER(S): [id number] ORDERING CLINICIAN: PINEDA SANTILLAN TECHNIQUE: ONE DAY protocol. Stress injection: [...] were no evidence of attenuation artifact. MMODAL Jamia Ndiaye MD - 11/10/2023 Interpreted By: Jamia Ndiaye and Giannuzzi Michael STUDY: MYOCARDIAL PERFUSION STRESS TEST WITH LEXISCAN Performing facility: [facility], [address] [place] [address], [address], [address] Provider: Geoffrey Santillan MD, FACC PCP: Dr. Nathalie Barreto Supervising provider: Chelsie Cedeno MD, FACC INDICATION: CAD; SOB; Chest tightness HISTORY: Gender: F; Age: 83 y/o ; Height: HT 165.1 cm cm; Weight: WT 70.761 kg kg. CAD; High Cholesterol; Previous CA; HTN; Chest Pain; SOB; Denies smoking. Cardiac catheterization on 2022. PTCA on 2022. COMPARISON: Previous nuclear testing completed [id number] at [facility]. ACCESSION NUMBER(S): [id number] ORDERING CLINICIAN: PINEDA SANTILLAN TECHNIQUE: ONE DAY protocol. Stress injection: [...] the LAD territory is new. Signed by: Jamia Ndiaye 11/10/2023 12:04 PM Dictation workstation: [id number] [facility] Work Phone: Radiology Study observation (narrative) [facility] Work Phone: NM Heart Perfusion W stress and W radionuclide IVOrdered By: Jamia Ndiaye on 11-10-2023 [facility] Work Phone: Basophils Auto (Bld) [#/Vol] on 10-20-2023 Basophils (Bld) [#/Vol] 0.0 10 3/uL 0.0-0.1 [facility] Basophils/100 WBC Auto (Bld) on 10-20-2023 Basophils/100 WBC (Bld) 0.4 % 0.2-2.0 [facility] Eosinophils/100 WBC Auto (Bl d)on 10-20-2023 Eosinophils/100 WBC (Bld) 3.2 % 0.9-7.0 [facility] Erythrocyte distribution wid th Auto (RBC) [Ratio]on 10-20-2023 Erythrocyte distribution width (RBC) [Ratio] 13.2 % 11.0-15.0 [facility] Estimated glomerular filtrat ion rate (GFR) non- Americanon 10-20-2023 GFR/1.73 sq M.predicted among non-blacks MDRD (S/P/Bld) [Vol rate/Area] 47 mL/min/{1.73_m2} >=60 [facility] Globulin Calc (S) [Mass/Vol] on 10-20-2023 Globulin (S) [Mass/Vol] 3.2 g/dL [facility] Hematocrit Auto (Bld) [Volum e fraction]on 10-20-2023 Hematocrit (Bld) [Volume fraction] 37.9 % 36.0-48.0 [facility] Hemoglobin [Mass/volume] in Bloodon 10-20-2023 Hemoglobin (Bld) [Mass/Vol] 12.4 g/dL 12.0-16.0 [facility] Iron binding capacity [Mass/ volume] in Serum or Plasmaon 10-20-2023 Iron binding capacity [Mass/Vol] 318.0 ug/dL 250.0-450.0 [facility] Iron saturation [Mass Fracti on] in Serum or Plasmaon 10-20-2023 Iron saturation [Mass fraction] 36.2 % [facility] Laboratory - Chemistry and C hemistry - challengeon 10-20-2023 Albumin [Mass/Vol] 4.1 g/dL 3.4-5.0 [facility] ALP [Catalytic activity/Vol] 71 U/L 46-116 [facility] ALT [Catalytic activity/Vol] 23 U/L 14-59 [facility] AST [Catalytic activity/Vol] 15 U/L 15-37 [facility] Bilirubin [Mass/Vol] 0.8 mg/dL 0.2-1.0 [facility] Calcium [Mass/Vol] 9.5 mg/dL 8.5-10.1 [facility] Chloride [Moles/Vol] 98 mmol/L 98-107 [facility] CO2 [Moles/Vol] 28.1 mmol/L 21.0-32.0 [facility] Cobalamin (Vitamin B12) [Mass/Vol] 1997.0 pg/mL 193.0-986.0 [facility] Creatinine [Mass/Vol] 1.10 mg/dL 0.55-1.02 [facility] Ferritin [Mass/Vol] 136.0 ng/mL 8.0-252.0 [facility] GFR/1.73 sq M.predicted MDRD (S/P/Bld) [Vol rate/Area] 57 mL/min/{1.73_m2} >=60 [facility] Glucose [Mass/Vol] 95 mg/dL 74-106 [facility] Iron [Mass/Vol] 115.0 ug/dL 50.0-170.0 [facility] Potassium [Moles/Vol] 3.7 mmol/L 3.5-5.1 [facility] Protein [Mass/Vol] 7.3 g/dL 6.4-8.2 [facility] Sodium [Moles/Vol] 135 mmol/L 136-145 [facility] TSH Qn 0.894 m[IU]/L 0.358-3.740 [facility] Urea nitrogen [Mass/Vol] 28.0 mg/dL 7.0-18.0 [facility] Urea nitrogen/Creatinine [Mass ratio] 25.5 mg/mg [facility] Laboratory - Hematology and Cell countson 10-20-2023 Immature granulocytes/100 WBC (Bld) 0.1 % 0.0-0.5 [facility] Leukocytes [#/volume] correc law for nucleated erythrocytes in Blood by Automated counon 10-20-2023 WBC corrected for nucl RBC Auto (Bld) [#/Vol] 6.8 10 3/uL 4.0-11.0 [facility] Lymphocytes Auto (Bld) [#/Vo l]on 10-20-2023 Lymphocytes (Bld) [#/Vol] 2.0 10 3/uL 1.2-3.8 [facility] Lymphocytes/100 WBC Auto (Bl d)on 03-19-2024 Lymphocytes/100 WBC (Bld) 29.4 % 20.5-60.0 [facility] MCH Auto (RBC) [Entitic mass ]on 10-20-2023 MCH (RBC) [Entitic mass] 30.7 pg 26.7-34.0 [facility] MCHC Auto (RBC) [Mass/Vol]on 10-20-2023 MCHC (RBC) [Mass/Vol] 32.7 g/dL 29.9-35.2 [facility] MCV Auto (RBC) [Entitic vol] on 10-20-2023 MCV (RBC) [Entitic vol] 93.8 fL 81.0-99.0 [facility] Monocytes Auto (Bld) [#/Vol] on 10-20-2023 Monocytes (Bld) [#/Vol] 0.7 10 3/uL 0.3-0.8 [facility] Monocytes/100 WBC Auto (Bld) on 10-20-2023 Monocytes/100 WBC (Bld) 9.7 % 1.7-12.0 [facility] Neutrophils Auto (Bld) [#/Vo l]on 10-20-2023 Neutrophils (Bld) [#/Vol] 3.9 10 3/uL 1.4-6.5 [facility] Neutrophils/100 WBC Auto (Bl d)on 10-20-2023 Neutrophils/100 WBC (Bld) 57.2 % 43.0-75.0 [facility] No Panel Informationon 10-19 Eosinophils # (Auto) 0.2 10 3/uL 0.0-0.7 [facility] Folate 16.00 ng/mL 8.60-58.90 [facility] Immature Granulocyte # (Auto) 0.01 10 3/uL 0.00-0.03 [facility] Platelet mean volume Auto (B ld) [Entitic vol]on 10-20-2023 Platelet mean volume (Bld) [Entitic vol] 9.5 fL 9.5-13.5 [facility] Platelets Auto (Bld) [#/Vol] on 10-20-2023 Platelets (Bld) [#/Vol] 212 10 3/uL 150-450 [facility] RBC Auto (Bld) [#/Vol]on RBC (Bld) [#/Vol] 4.04 10 6/uL 4.20-5.40 [facility] Serum or plasma albumin/glob ulin mass ratioon 10-20-2023 Albumin/Globulin [Mass ratio] 1.3 {ratio} [facility] Serum or plasma anion gap de terminationon 10-20-2023 Anion gap [Moles/Vol] 12.6 mmol/L [facility] MUGA SCAN INJECTIONon [facility] MUGA SCAN INJECTION Patient Name: ATIYA JHA STUDY: MUGA Performing facility: [facility], [address] [place] [address], [address], [address] Provider: Geoffrey Townsend DO, FACC PCP: Dr. Nathalie Barreto Supervising provider: Sulma Busby RN, [employer] INDICATION: ASCVD Chest Pain; CHF Dyspnea Fatigue Hx PTCA HISTORY: Gender: F; Age: 82 y/o ; Height: 165.1 cm; Weight: 69.4104741 kg. CAD; Chest Pain; SOB; CHF Fatigue; Denies smoking. Cardiac catheterization on 2022. PTCA on 2022. COMPARISON: Previous nuclear testing completed [id number] EF= 76% at [facility]. Previous echo testing completed [id number] EF=40-45% at [facility]. ACCESSION NUMBER(S): [id number]; [id number] ORDERING CLINICIAN: PINEDA TOWNSEND TECHNIQUE: The patient received an IV injection of 3 ml of stannous pyrophosphate (PYP) using the in-vivo method of labeling red blood cells. After 15 minutes the patient received another IV injection of 26.7 mCi of Technetium 99m pertechnetate. Planar images of the left ventricle were obtained in the CONGOLESE 45, Lt Lateral and anterior projections. FINDINGS: The right ventricle was normal. The left ventricle was normal in size. Regional wall motion was normal. Global resting LVEF was normal- at 58%. IMPRESSION: Normal resting right ventricular function. Normalresting left ventricular function. Left ventricular ejection fraction is 58%. Electronically signed by: CHELSIE CEDENO MD Normal [facility] No Panel Informationon 03-11 Normal -[facility] y 250 DO Work Phone: Tobacco Screening.on 023 Adult depression screening assessment [facility] Work Phone: Adult depression screening assessment No [facility] DO Work Phone: Fall risk assessment a) No falls within the last year [facility] DO Work Phone: Tobacco use status [facility] Work Phone: Basophils Auto (Bld) [#/Vol] Ordered By: Allan Townsend on 01-16-2023 Basophils (Bld) [#/Vol] 0.0 10*3/uL 0.0-0.2 [facility] Basophils/100 WBC Auto (Bld) Ordered By: Allan Townsend on 01-16-2023 Basophils/100 WBC (Bld) 0.6 % . [facility] Calcium [Mass/volume] in Ser um or PlasmaOrdered By: Allan Townsend on 01-16-2023 Calcium [Mass/Vol] 8.8 mg/dL 8.6-10.3 [facility] Carbon dioxide, total [Moles /volume] in Serum or PlasmaOrdered By: Allan Townsend on 01-16-2023 CO2 [Moles/Vol] 25.2 mmol/L 21.0-31.0 [facility] Chloride [Moles/volume] in S katiana or PlasmaOrdered By: Allan Townsend on 01-16-2023 Chloride [Moles/Vol] 107 mmol/L 98-107 [facility] Creatinine [Mass/volume] in Serum or PlasmaOrdered By: Allan Townsend on 01-16-2023 Creatinine [Mass/Vol] 0.88 mg/dL 0.60-1.20 [facility] Eosinophils Auto (Bld) [#/Vo l]Ordered By: Allan Townsend on 01-16-2023 Eosinophils (Bld) [#/Vol] 0.3 10*3/uL 0.0-0.45 [facility] Eosinophils/100 WBC Auto (Bl d)Ordered By: Allan Townsend on 01-16-2023 Eosinophils/100 WBC (Bld) 5.1 % . [facility] Erythrocyte distribution wid th Auto (RBC) [Ratio]Ordered By: Allan Townsend on 01-16-2023 Erythrocyte distribution width (RBC) [Ratio] 13.8 % 11.9-15.3 [facility] Glucose [Mass/volume] in Ser um or PlasmaOrdered By: Allan Townsend on 01-16-2023 Glucose [Mass/Vol] 100 mg/dL 70-100 [facility] Comment on above: ADA recommended refe rence rangeRandom Glucose Reference Range is dependent on time and content of last meal. Glucose of more than 200 mg/dL in a nonstressed, ambulatory subject supports the diagnosis of Diabetes Mellitus. Hematocrit Auto (Bld) [Volum e fraction]Ordered By: Allan Townsend on 01-16-2023 Hematocrit (Bld) [Volume fraction] 32.9 % 34.0-46.4 [facility] Hemoglobin [Mass/volume] in BloodOrdered By: Allan Townsend on 01-16-2023 Hemoglobin (Bld) [Mass/Vol] 11.5 g/dL 11.8-15.4 [facility] Leukocytes [#/volume] correc law for nucleated erythrocytes in Blood by Automated counOrdered By: Allan Townsend on 01-16-2023 WBC corrected for nucl RBC Auto (Bld) [#/Vol] 5.2 10*3/uL 3.8-11.6 [facility] Lymphocytes Auto (Bld) [#/Vo l]Ordered By: Allan Townsend on 01-16-2023 Lymphocytes (Bld) [#/Vol] 1.4 10*3/uL 1.00-4.8 [facility] Lymphocytes/100 WBC Auto (Bl d)Ordered By: Allan Townsend on 01-16-2023 Lymphocytes/100 WBC (Bld) 28.0 % . [facility] MCH Auto (RBC) [Entitic mass ]Ordered By: Allan Townsend on 01-16-2023 MCH (RBC) [Entitic mass] 32.1 pg 24.7-34.3 [facility] MCHC Auto (RBC) [Mass/Vol]Or dered By: Allan Townsend on 01-16-2023 MCHC (RBC) [Mass/Vol] 34.8 g/dL 32.0-35.0 [facility] MCV Auto (RBC) [Entitic vol] Ordered By: Allan Townsend on 01-16-2023 MCV (RBC) [Entitic vol] 92.2 fL 80-100 [facility] Monocytes Auto (Bld) [#/Vol] Ordered By: Allan Townsend on 01-16-2023 Monocytes (Bld) [#/Vol] 0.6 10*3/uL 0.0-0.8 [facility] Monocytes/100 WBC Auto (Bld) Ordered By: Allan Townsend on 01-16-2023 Monocytes/100 WBC (Bld) 12.0 % . [facility] Neutrophils Auto (Bld) [#/Vo l]Ordered By: Allan Townsend on 01-16-2023 Neutrophils (Bld) [#/Vol] 2.8 10*3/uL 1.8-7.7 [facility] Neutrophils/100 WBC Auto (Bl d)Ordered By: Allan Townsend on 01-16-2023 Neutrophils/100 WBC (Bld) 54.3 % . [facility] No Panel InformationOrdered By: Allan Townsend on 01-16-2023 Estimated GFR (CKD-EPI) > 60.0 mL/Min [facility] Creatinine Clearance (Chem 48.86 [facility] Nucleated erythrocytes [Pres ence] in Blood by Automated countOrdered By: Allan Townsend on 01-16-2023 Nucleated RBC Auto Ql (Bld) 0.2 /100{WBC} 0-0.5 [facility] Platelet mean volume Auto (B ld) [Entitic vol]Ordered By: Allan Townsend on 01-16-2023 Platelet mean volume (Bld) [Entitic vol] 8.0 fL 6.3-10.7 [facility] Platelets Auto (Bld) [#/Vol] Ordered By: Allan Townsend on 01-16-2023 Platelets (Bld) [#/Vol] 161 10*3/uL 150-450 [facility] Potassium [Moles/volume] in Serum or PlasmaOrdered By: Allan Townsend on 01-16-2023 Potassium [Moles/Vol] 4.0 mmol/L 3.5-5.1 [facility] RBC Auto (Bld) [#/Vol]Ordere d By: Allan Townsend on 01-16-2023 RBC (Bld) [#/Vol] 3.57 10*6/uL 3.60-5.00 [facility] Serum or plasma anion gap de terminationOrdered By: Allan Townsend on 01-16-2023 Anion gap [Moles/Vol] 11.8 mmol/L 6.0-15.0 [facility] Sodium [Moles/volume] in Ser um or PlasmaOrdered By: Allan Townsend on 01-16-2023 Sodium [Moles/Vol] 140 mmol/L 136-145 [facility] Urea nitrogen [Mass/volume] in Serum or PlasmaOrdered By: Allan Townsend on 01-16-2023 Urea nitrogen [Mass/Vol] 15 mg/dL 7-25 [facility] WBC Auto (Bld) [#/Vol]Ordere d By: Allan Townsend on 01-16-2023 WBC (Bld) [#/Vol] 5.2 10*3/uL 3.8-11.6 [facility] Glucose Glucometer (dC) [M ass/Vol]Ordered By: Allan Townsend on 01-15-2023 Glucose [Mass/Vol] 108 mg/dL [facility] Comment on above: Random Glucose Refer ence Range is dependent on time and content of last meal. Glucose of more than 200 mg/dL in a nonstressed, ambulatory subject supports the diagnosis of Diabetes Mellitus. Troponin I.cardiac [Mass/vol ume] in Serum or Plasma by Detection limit <= 0.01 ng/Ordered By: Allan Townsend on 01-15-2023 Troponin I.cardiac DL <= 0.01 ng/mL [Mass/Vol] 94159.5 pg/mL 0.0-15.0 [facility] Comment on above: Critical Result : Ca lled to and read back by: SEAN WHITTAKER at: 01/15/2023 05:46:06 by:[id number] Activated partial thrombopla stin time (aPTT) in platelet poor plasma by coagulation aOrdered By: Chaitanya Lu on 01-14-2023 aPTT Coag (PPP) [Time] 274.4 s 25.1-36.5 [facility] Comment on above: result calledat 1017 on 01/14/23 Alanine aminotransferase [En zymatic activity/volume] in Serum or PlasmaOrdered By: Chaitanya Lu on 01-14-2023 ALT [Catalytic activity/Vol] 13 U/L 7-52 [facility] Albumin [Mass/volume] in Ser um or Plasma by Bromocresol green (BCG) dye binding methoOrdered By: Chaitanya Lu on 01-14-2023 Albumin BCG dye [Mass/Vol] 4.3 g/dL 3.5-5.7 [facility] Alkaline phosphatase [Enzyma tic activity/volume] in Serum or PlasmaOrdered By: Chaitanya Lu on 01-14-2023 ALP [Catalytic activity/Vol] 49 U/L 34-104 [facility] Aspartate aminotransferase [ Enzymatic activity/volume] in Serum or PlasmaOrdered By: Chaitanya Lu on 01-14-2023 AST [Catalytic activity/Vol] 16 U/L 13-39 [facility] Basophils Auto (Bld) [#/Vol] Ordered By: Chaitanya Lu on 01-14-2023 Basophils (Bld) [#/Vol] 0.0 10*3/uL 0.0-0.2 [facility] Basophils/100 WBC Auto (Bld) Ordered By: Chaitanya Lu on 01-14-2023 Basophils/100 WBC (Bld) 0.7 % . [facility] Bilirubin.total [Mass/volume ] in Serum or PlasmaOrdered By: Chaitanya Lu on 01-14-2023 Bilirubin [Mass/Vol] 0.7 mg/dL 0.3-1.0 [facility] Calcium [Mass/volume] in Ser um or PlasmaOrdered By: Chaitanya Lu on 01-14-2023 Calcium [Mass/Vol] 8.7 mg/dL 8.6-10.3 [facility] Carbon dioxide, total [Moles /volume] in Serum or PlasmaOrdered By: Chaitanya Lu on 01-14-2023 CO2 [Moles/Vol] 21.9 mmol/L 21.0-31.0 [facility] Chloride [Moles/volume] in S katiana or PlasmaOrdered By: Chaitanya Lu on 01-14-2023 Chloride [Moles/Vol] 107 mmol/L 98-107 [facility] Creatine kinase [Enzymatic a ctivity/volume] in Serum or PlasmaOrdered By: Chaitanya Lu on 01-14-2023 CK [Catalytic activity/Vol] 119 U/L 30-223 [facility] Creatinine [Mass/volume] in Serum or PlasmaOrdered By: Chaitanya Lu on 01-14-2023 Creatinine [Mass/Vol] 0.86 mg/dL 0.60-1.20 [facility] Eosinophils Auto (Bld) [#/Vo l]Ordered By: Chaitanya Lu on 01-14-2023 Eosinophils (Bld) [#/Vol] 0.2 10*3/uL 0.0-0.45 [facility] Eosinophils/100 WBC Auto (Bl d)Ordered By: Chaitanya Lu on 01-14-2023 Eosinophils/100 WBC (Bld) 3.6 % . [facility] Erythrocyte distribution wid th Auto (RBC) [Ratio]Ordered By: Chaitanya Lu on 01-14-2023 Erythrocyte distribution width (RBC) [Ratio] 13.4 % 11.9-15.3 [facility] Globulin Calc (S) [Mass/Vol] Ordered By: Chaitanya Lu 01-14-2023 Globulin (S) [Mass/Vol] 2.1 g/dL [facility] Glucose [Mass/volume] in Ser um or PlasmaOrdered By: Chaitanya Lu on 01-14-2023 Glucose [Mass/Vol] 132 mg/dL 70-100 [facility] Comment on above: ADA recommended refe rence rangeRandom Glucose Reference Range is dependent on time and content of last meal. Glucose of more than 200 mg/dL in a nonstressed, ambulatory subject supports the diagnosis of Diabetes Mellitus. Hematocrit Auto (Bld) [Volum e fraction]Ordered By: Chaitanya Lu on 01-14-2023 Hematocrit (Bld) [Volume fraction] 33.5 % 34.0-46.4 [facility] Hemoglobin [Mass/volume] in BloodOrdered By: Chaitanya Lu on 01-14-2023 Hemoglobin (Bld) [Mass/Vol] 11.4 g/dL 11.8-15.4 [facility] Laboratory - CoagulationOrde red By: Chaitanya Lu on 01-14-2023 PT Coag (PPP) [Time] 11.9 s 9.0-12.9 [facility] Leukocytes [#/volume] correc law for nucleated erythrocytes in Blood by Automated counOrdered By: Chaitanya Lu on 01-14-2023 WBC corrected for nucl RBC Auto (Bld) [#/Vol] 5.9 10*3/uL 3.8-11.6 [facility] Lymphocytes Auto (Bld) [#/Vo l]Ordered By: Chaitanya Lu on 01-14-2023 Lymphocytes (Bld) [#/Vol] 2.1 10*3/uL 1.00-4.8 [facility] Lymphocytes/100 WBC Auto (Bl d)Ordered By: Chaitanya Lu on 01-14-2023 Lymphocytes/100 WBC (Bld) 35.4 % . [facility] MCH Auto (RBC) [Entitic mass ]Ordered By: Chaitanya Lu on 01-14-2023 MCH (RBC) [Entitic mass] 31.4 pg 24.7-34.3 [facility] MCHC Auto (RBC) [Mass/Vol]Or dered By: Chaitanya Lu on 01-14-2023 MCHC (RBC) [Mass/Vol] 34.1 g/dL 32.0-35.0 [facility] MCV Auto (RBC) [Entitic vol] Ordered By: Chaitanya Lu on 01-14-2023 MCV (RBC) [Entitic vol] 92.1 fL 80-100 [facility] Monocyte distribution width [Entitic volume] in Blood by AutomatedOrdered By: Chaitanya uL on 01-14-2023 Monocyte distribution width Auto (Bld) [Entitic vol] 17.24 % 0.00-20.00 [facility] Monocytes Auto (Bld) [#/Vol] Ordered By: Chaitanya Lu on 01-14-2023 Monocytes (Bld) [#/Vol] 0.5 10*3/uL 0.0-0.8 [facility] Monocytes/100 WBC Auto (Bld) Ordered By: Chaitanya Lu on 01-14-2023 Monocytes/100 WBC (Bld) 8.9 % . [facility] Natriuretic peptide B [Mass/ Vol]Ordered By: Chaitanya Lu on 01-14-2023 Natriuretic peptide B (Bld) [Mass/Vol] 191.0 pg/mL 5-100 [facility] Neutrophils Auto (Bld) [#/Vo l]Ordered By: Chaitanya Lu on 01-14-2023 Neutrophils (Bld) [#/Vol] 3.1 10*3/uL 1.8-7.7 [facility] Neutrophils/100 WBC Auto (Bl d)Ordered By: Chaitanya Lu on 01-14-2023 Neutrophils/100 WBC (Bld) 51.4 % . [facility] No Panel InformationOrdered By: Chaitanya Lu on 01-14-2023 Estimated GFR (CKD-EPI) > 60.0 mL/Min [facility] Creatinine Clearance (Chem 49.92 [facility] Nucleated erythrocytes [Pres ence] in Blood by Automated countOrdered By: Chaitanya Lu on 01-14-2023 Nucleated RBC Auto Ql (Bld) 0.1 /100{WBC} 0-0.5 [facility] Platelet mean volume Auto (B ld) [Entitic vol]Ordered By: Chaitanya Lu on 01-14-2023 Platelet mean volume (Bld) [Entitic vol] 8.3 fL 6.3-10.7 [facility] Platelet poor plasma interna tional normalized ratio (INR) by coagulation assay (relatOrdered By: Chaitanya Lu on 01-14-2023 INR Coag (PPP) [Relative time] 1.0 {INR} [facility] Comment on above: INR Therapeutic Rang e [...] 01-14-2023 Platelets (Bld) [#/Vol] 183 10*3/uL 150-450 [facility] Potassium [Moles/volume] in Serum or PlasmaOrdered By: Chaitanya Lu on 01-14-2023 Potassium [Moles/Vol] 3.1 mmol/L 3.5-5.1 [facility] Protein [Mass/volume] in Ser um or PlasmaOrdered By: Chaitanya Lu on 01-14-2023 Protein [Mass/Vol] 6.4 g/dL 6.4-8.9 [facility] RBC Auto (Bld) [#/Vol]Ordere d By: Chaitanya Lu on 01-14-2023 RBC (Bld) [#/Vol] 3.64 10*6/uL 3.60-5.00 [facility] Serum or plasma albumin/glob ulin mass ratioOrdered By: Chaitanya Lu on 01-14-2023 Albumin/Globulin [Mass ratio] 2.0 {ratio} [facility] Serum or plasma anion gap de terminationOrdered By: Chaitanya Lu on 01-14-2023 Anion gap [Moles/Vol] 15.2 mmol/L 6.0-15.0 [facility] Sodium [Moles/volume] in Ser um or PlasmaOrdered By: Chaitanya Lu on 01-14-2023 Sodium [Moles/Vol] 141 mmol/L 136-145 [facility] Troponin I.cardiac [Mass/vol ume] in Serum or Plasma by Detection limit <= 0.01 ng/Ordered By: Chaitanya Lu on 01-14-2023 Troponin I.cardiac DL <= 0.01 ng/mL [Mass/Vol] 43.4 pg/mL 0.0-15.0 [facility] Urea nitrogen [Mass/volume] in Serum or PlasmaOrdered By: Chaitanya Lu on 01-14-2023 Urea nitrogen [Mass/Vol] 20 mg/dL 7-25 [facility] WBC Auto (Bld) [#/Vol]Ordere d By: Chaitanya Lu on 01-14-2023 WBC (Bld) [#/Vol] 5.9 10*3/uL 3.8-11.6 [facility] LIPID PROFILEon 12-03-2022 CHOL-HDL RATIO NORM SEE BELOW Normal [facility] Comment on above: Result Comment: 3.3 - 4.4 LOW RISK 4.4 - 7.1 AVERAGE RISK 7.1 - 11.0 MODERATE RISK >11.0 HIGH RISK Performed By: #### B MP, LIPID, AST #### [facility] [address] [address] [address] Cynthia Arroyo Cholesterol [Mass/Vol] 167 mg/dL Normal <=200 [facility] Comment on above: Performed By: #### B MP, LIPID, AST #### [facility] [address] [address] [address] Cynthia Arroyo Cholesterol in HDL [Mass/Vol] 40 mg/dL Normal 40-60 [facility] Comment on above: Performed By: #### B MP, LIPID, AST #### [facility] [address] [place] [address] Dr. Cynthia Arroyo Cholesterol in LDL [Mass/Vol] 101.8 mg/dL Normal [facility] Comment on above: Performed By: #### B MP, LIPID, AST #### [facility] [address] [address] [address] Cynthia Arroyo Cholesterol.total/Chol esterol in HDL [Mass ratio] 4.2 {ratio} Normal [facility] Comment on above: Performed By: #### B MP, LIPID, AST #### [facility] [address] [address] [address] Cynthia Arroyo HDL NORMAL > or = 60 mg/dl - LO W CARDIOVASCULAR RISK <40 mg/dl - HIGH CARDIOVASCULAR RISK Normal [facility] Comment on above: Performed By: #### B MP, LIPID, AST #### [facility] [address] [place] [address] Dr. Cynthia Arroyo LDL CALC NORMAL SEE BELOW Normal [facility] Comment on above: Result Comment: <100 mg/dl OPTIMAL 100 - 129 mg/dl NEAR OR ABOVE OPTIMAL 130 - 159 mg/dl BORDERLINE HIGH 160 - 189 mg/dl HIGH >190 mg/dl VERY HIGH Performed By: #### B MP, LIPID, AST #### [facility] [address] [address] [address] Cynthia Arroyo Triglyceride [Mass/Vol] 126 mg/dL Normal <=150 [facility] Comment on above: Performed By: #### B MP, LIPID, AST #### [facility] [address] [address] [address] Cynthia Arroyo VLDL CALC 25.2 mg/dL Normal [facility] Comment on above: Performed By: #### B MP, LIPID, AST #### [facility] [address] [address] [address] Cynthia Arroyo PROF CHEM 8 (BAS METB)on Anion gap [Moles/Vol] 13.1 mmol/L Normal [facility] Comment on above: Performed By: #### B MP, LIPID, AST #### [facility] [address] [address] [address] Cynthia Arroyo Calcium [Mass/Vol] 9.1 mg/dL Normal 8.5-10.1 [facility] Comment on above: Performed By: #### B MP, LIPID, AST #### [facility] [address] [address] [address] Cynthia Arroyo Chloride [Moles/Vol] 102 mmol/L Normal 98-107 [facility] Comment on above: Performed By: #### B MP, LIPID, AST #### [facility] [address] [address] [address] Cynthia Arroyo CO2 [Moles/Vol] 28.3 mmol/L Normal 21.0-32.0 [facility] Comment on above: Performed By: #### B MP, LIPID, AST #### [facility] [address] [address] [address] Cynthia Arroyo Creatinine [Mass/Vol] 1.04 mg/dL Critically high 0.55-1.02 [facility] Comment on above: Performed By: #### B MP, LIPID, AST #### [facility] [address] [address] [address] Cynthia Arroyo EGFR-AF BANGLADESHI >60 Normal >=60 [facility] Comment on above: Performed By: #### B MP, LIPID, AST #### [facility] [address] [address] [address] Cynthia Arroyo EGFR-NON AF BANGLADESHI 51 mL/min/1.73m2 Critically low >=60 [facility] Comment on above: Performed By: #### B MP, LIPID, AST #### [facility] [address] [address] [address] Cynthia Arroyo Glucose [Mass/Vol] 94 mg/dL Normal 74-106 [facility] Comment on above: Performed By: #### B MP, LIPID, AST #### [facility] [address] [place] [address] Dr. Cynthia Arroyo Potassium [Moles/Vol] 4.4 mmol/L Normal 3.5-5.1 [facility] Comment on above: Performed By: #### B MP, LIPID, AST #### [facility] [address] [place] [address] Dr. Cynthia Arroyo Sodium [Moles/Vol] 139 mmol/L Normal 136-145 [facility] Comment on above: Performed By: #### B MP, LIPID, AST #### [facility] [address] [place] [address] Dr. Cynthia Arroyo Urea nitrogen [Mass/Vol] 18.0 mg/dL Normal 7.0-18.0 [facility] Comment on above: Performed By: #### B MP, LIPID, AST #### [facility] [address] [place] [address] Dr. Cynthia Arroyo Urea nitrogen/Creatinine [Mass ratio] 17.3 mg/mg Normal [facility] Comment on above: Performed By: #### B MP, LIPID, AST #### [facility] [address] [place] [address] Dr. Cynthia Arroyo SGSe 12-03-2022 AST [Catalytic activity/Vol] 13 U/L Critically low 15-37 [facility] Comment on above: Performed By: #### B MP, LIPID, AST #### [facility] [address] [place] [address] Dr. Cynthia Arroyo Urinalysis - DIPSTICKon 09-03 Appearance (U) clear [employer] Other Bilirubin Ql (U) small [employer] Other Color (U) opal [employer] Other Glucose Ql (U) Negative [employer] Other Hemoglobin Ql (U) Negative [employer] Other Ketones Ql (U) Negative [employer] Other Leukocyte esterase Test strip Ql (U) trace [employer] Other Nitrite Ql (U) Negative [employer] Other pH (U) 5 [pH] [employer] Other Protein Ql (U) Negative [employer] Other Specific gravity (U) [Rel density] 1.010 [employer] Other Urobilinogen (U) [Mass/Vol] 0.2 mg/dL [employer] Other Urinalysis - DIPSTICK [employer] Other Office Visit (Cardiology)on 06-04-2022 Follow-up visit [...] Status:Active; Requested for:08Dec2022; Lipid Panel; Status:Active; Requested for:[id number]; ASCVD (arteriosclerotic cardiovascular disease), History of PTCA [...] 04Jun2022 05:32PMRecorded: 04Jun2022 03:21PM Heart Rate72, R Ioxgms30, L Radial Kpazwfrk719, RUE, Qefscso835, Sitting Lwlrkgrnb79, RUE, Ocltfki06, Sitting Height5 ft 5 in5 ft 5 in Lfqxby408 lb 157 lb BMI Afjdmrmwil22.13 kg/m226.13 kg/m2 BSA Calculated1.781.78 Tobacco Useb) No [...] time . Signatures Electronically signed by : Pineda Santillan MD; Jun 04 2022 5:33PM EST (Author) Normal virocyt Tobacco Screening.on 022 Adult depression screening assessment No [facility] [address] DO Work Phone: Fall risk assessment a) No falls within the last year [facility] [address] DO Work Phone: Tobacco use status CP b) No [facility] [address] DO Work Phone: MG MAMM SCREEN 3D GLADIS CADon 05-21-2022 MG MAMM SCREEN 3D GLADIS CAD Patient: ATIYA JHA Exam Date: 05/21/2022 : 1940 Gender:F Ordering : DR EEDR LAURENT . Admission #: [id number] Family : Order #: [id number] CLICK HERE TO VIEW EXAM RADIOLOGY REPORT [...] Treatments None Family Cancers None LOCATION: [facility] BREAST COMPOSITION: Heterogeneously dense,which may obscure [...] M.D. on 05/21/2022 at 15:56 Normal [facility] XR DEXA BONE DENSITYon 05-21 XR [...] by: YOSELIN KING Date: 2022-05-21 19:19 Normal [facility] PAP ACOG PANEL 2: 30 to 65on 05-15-2022 . . Normal [facility] Comment on above: Result Comment: Perf ormed at: BA Performed By: #### [id number] #### [facility] [address] [place] [address] Dr. Cynthia Arroyo Age Gdln ACOG Testing Comment Normal [facility] Comment on above: Result Comment: <21 or >65 or no age provided Performed By: #### [id number] #### [facility] [address] [place] [address] Dr. Cynthia Arroyo DIAGNOSIS: Comment [facility] Comment on above: Result Comment: NEGA TIVE FOR INTRAEPITHELIAL LESION OR MALIGNANCY. CELLULAR CHANGES ASSOCIATED WITH ATROPHY ARE PRESENT. THIS SPECIMEN WAS RESCREENED PART OF OUR LINE APPLIANCE ASSEMBLER PROGRAM. Performed at: BA Performed By: #### [id number] #### [facility] [address] [place] [address] Dr. Cynthia Arroyo Methodology: Comment [facility] Comment on above: Result Comment: This liquid based ThinPrep(R) pap test was screened with the use of an image guided system. Performed at: WB Performed By: #### [id number] #### [facility] [address] [place] [address] Dr. Cynthia Arroyo Note: Comment Normal [facility] Comment on above: Result Comment: The Pap smear is a screening test designed to aid in the detection of premalignant and malignant conditions of the uterine cervix. It is not a diagnostic procedure and should not be used as the sole means of detecting cervical cancer. Both false-positive and false-negative reports do occur. . Performed at: WB Performed By: #### [id number] #### [facility] [address] [place] [address] Dr. Cynthia Arroyo Performed by: Comment Normal [facility] Comment on above: Result Comment: Jimbo Olivares, Scrap Worker (ASCP) Performed at: BA Performed By: #### [id number] #### [facility] [address] [address] [address] Cynthia Arroyo QC reviewed by: Comment Normal [facility] Comment on above: Result Comment: Lenny Hanks, Scrap Worker (ASCP) Performed at: BA Performed By: #### [id number] #### [facility] [address] [address] [address] Cynthia Arroyo Specimen adequacy: Comment Normal [facility] Comment on above: Result Comment: Sati sfactory for evaluation. Endocervical component may not be distinguished in cases of atrophy. Performed at: [facility] Performed By: #### [id number] #### [facility] [address] [place] [address] Dr. Cynthia Arroyo Vital Signs Date Time Vital Sign Value Performing Clinician Facility 05-08-2025 13:04-0400 Body height 165.1 cm Yoselin Weir DPM Work Phone: [facility] 05-08-2025 13:04-0400 Body mass index (BMI) [Ratio] 23.8 kg/m2 Yoselin Weir DPM Work Phone: [facility] 05-08-2025 13:04-0400 Body weight 64.86 kg Yoselin Weir DPM Work Phone: [facility] 04-11-2025 11:53-0400 Diastolic blood pressure 68 mm[Hg] Sulma Busby MILLER SUPERVISOR[employer] Work Phone: [facility] 04-11-2025 11:53-0400 Systolic blood pressure 132 mm[Hg] Sulma Busby [employer]ILLER SUPERVISOR[employer] IN[employer] Work Phone: [facility] 04-11-2025 11:37-0400 Body height 162.6 cm Sulma Busby MILLER SUPERVISOR[employer] IN[employer]ER Work Phone: [facility] 04-11-2025 11:37-0400 Body mass index (BMI) [Ratio] 24.37 kg/m2 Sulma Busby MILLER SUPERVISOR[employer] IN[employer] Work Phone: [facility] 04-11-2025 11:37-0400 Body weight 64.41 kg Sulma Busby MILLER SUPERVISOR[employer] IN[employer]ER Work Phone: [facility] 04-11-2025 11:37-0400 Heart rate 72 /min Sulma Busby MILLER SUPERVISOR[employer] INST[employer]ER Work Phone: [facility] 02-24-2025 10:17-0400 Body height 165.1 cm Ivan Ball DO Work Phone: [facility] 02-24-2025 10:17-0400 Body mass index (BMI) [Ratio] 23.6 kg/m2 Ivan Ball DO Work Phone: [facility] 02-24-2025 10:17-0400 Body weight 64.41 kg Ivan Ball DO Work Phone: [facility] 02-24-2025 10:17-0400 Diastolic blood pressure 81 mm[Hg] Ivan Ball DO Work Phone: [facility] 02-24-2025 10:17-0400 Heart rate 70 /min Ivan Ball DO Work Phone: [facility] 02-24-2025 10:17-0400 Respiratory rate 12 /min Ivan Ball DO Work Phone: [facility] 02-24-2025 10:17-0400 SaO2% (BldA) [Mass fraction] 97 % Ivan Ball DO Work Phone: [facility] 02-24-2025 10:17-0400 Systolic blood pressure 143 mm[Hg] Ivan Ball DO Work Phone: [facility] 02-10-2025 15:37-0400 Body temperature 98 [degF] Ivan Ball DO Work Phone: [facility] 02-10-2025 15:37-0400 Diastolic blood pressure 74 mm[Hg] Ivan Ball DO Work Phone: [facility] 02-10-2025 15:37-0400 Heart rate 84 /min Ivan Ball DO Work Phone: [facility] 02-10-2025 15:37-0400 Respiratory rate 16 /min Ivan Ball DO Work Phone: [facility] 02-10-2025 15:37-0400 SaO2% (BldA) [Mass fraction] 97 % Ivan Ball DO Work Phone: [facility] 02-10-2025 15:37-0400 Systolic blood pressure 130 mm[Hg] Ivan Ball DO Work Phone: [facility] 02-10-2025 14:27-0400 Body height 165.1 cm Ivan Ball DO Work Phone: [facility] 02-10-2025 05:01-0400 Body weight 65 kg Ivan Ball DO Work Phone: [facility] 02-09-2025 23:08-0400 Diastolic blood pressure 63 mm[Hg] Vian Ball DO Work Phone: [facility] 02-09-2025 23:08-0400 Heart rate 79 /min Ivan Ball DO Work Phone: [facility] 02-09-2025 23:08-0400 Respiratory rate 14 /min Ivan Ball DO Work Phone: [facility] 02-09-2025 23:08-0400 SaO2% (BldA) [Mass fraction] 94 % Ivan Ball DO Work Phone: [facility] 02-09-2025 23:08-0400 Systolic blood pressure 141 mm[Hg] Ivan Ball DO Work Phone: [facility] 02-09-2025 18:26-0400 Body height 165.1 cm Ivan Ball DO Work Phone: [facility] 02-09-2025 18:26-0400 Body temperature 97.9 [degF] Ivan Ball DO Work Phone: [facility] 02-09-2025 18:26-0400 Body weight 64.86 kg Ivan Ball DO Work Phone: [facility] 02-06-2025 14:23-0400 Body height 165.1 cm Ivan Ball DO Work Phone: [facility] 02-06-2025 14:23-0400 Body mass index (BMI) [Ratio] 24.3 kg/m2 Ivan Ball DO Work Phone: [facility] 02-06-2025 14:23-0400 Body weight 66.22 kg Ivan Ball DO Work Phone: [facility] 02-06-2025 14:23-0400 Diastolic blood pressure 89 mm[Hg] Ivan Ball DO Work Phone: [facility] 02-06-2025 14:23-0400 Heart rate 76 /min Ivan Ball DO Work Phone: [facility] 02-06-2025 14:23-0400 Respiratory rate 12 /min Ivan Ball DO Work Phone: [facility] 02-06-2025 14:23-0400 SaO2% (BldA) [Mass fraction] 96 % Ivan Ball DO Work Phone: [facility] 02-06-2025 14:23-0400 Systolic blood pressure 139 mm[Hg] Ivan Ball DO Work Phone: [facility] 02-03-2025 08:43-0400 Body height 165.1 cm Ivan Ball DO Work Phone: [facility] 02-03-2025 08:43-0400 Body temperature 98.2 [degF] Ivan Ball DO Work Phone: [facility] 02-03-2025 08:43-0400 Body weight 65.77 kg Ivan Ball DO Work Phone: [facility] 02-03-2025 08:43-0400 Diastolic blood pressure 87 mm[Hg] Ivan Ball DO Work Phone: [facility] 02-03-2025 08:43-0400 Heart rate 71 /min Ivan Ball DO Work Phone: [facility] 02-03-2025 08:43-0400 Respiratory rate 16 /min Ivan Ball DO Work Phone: [facility] 02-03-2025 08:43-0400 SaO2% (BldA) [Mass fraction] 99 % Ivan Ball DO Work Phone: [facility] 02-03-2025 08:43-0400 Systolic blood pressure 193 mm[Hg] Ivan Ball DO Work Phone: [facility] 01-30-2025 12:51-0400 Body height 165.1 cm Yoselin Weir DPM Work Phone: [facility] 01-30-2025 12:51-0400 Body mass index (BMI) [Ratio] 23.8 kg/m2 Yoselin Weir DPM Work Phone: [facility] 01-30-2025 12:51-0400 Body weight 64.86 kg Yoselin Weir DPM Work Phone: [facility] 01-26-2025 10:22-0400 Diastolic blood pressure 64 mm[Hg] Jamia Ndiaye MD Work Phone: [facility] 01-26-2025 10:22-0400 Systolic blood pressure 132 mm[Hg] Jamia Ndiaye MD Work Phone: [facility] 01-26-2025 10:21-0400 Body height 162.6 cm Jamia Ndiaye MD Work Phone: [facility] 01-26-2025 10:21-0400 Body mass index (BMI) [Ratio] 24.37 kg/m2 Jamia Ndiaye MD Work Phone: [facility] 01-26-2025 10:21-0400 Body weight 64.41 kg Jamia Ndiaye MD Work Phone: [facility] 01-26-2025 10:21-0400 Heart rate 72 /min Jamia Ndiaye MD Work Phone: [facility] 01-25-2025 11:10-0400 Body height 165.1 cm Jordan Visci DO Work Phone: [facility] 01-25-2025 11:10-0400 Body mass index (BMI) [Ratio] 23.8 kg/m2 Jordan Visci DO Work Phone: [facility] 01-25-2025 11:10-0400 Body weight 64.86 kg Jordan Visci DO Work Phone: [facility] 01-25-2025 11:10-0400 Diastolic blood pressure 66 mm[Hg] Jordan Visci DO Work Phone: [facility] 01-25-2025 11:10-0400 Systolic blood pressure 108 mm[Hg] Jordan Visci DO Work Phone: [facility] 12-12-2024 11:50-0400 Body height 165.1 cm Ivan Ball DO Work Phone: [facility] 12-12-2024 11:50-0400 Body mass index (BMI) [Ratio] 23.9 kg/m2 Ivan Ball DO Work Phone: [facility] 12-12-2024 11:50-0400 Body weight 65.31 kg Ivan Ball DO Work Phone: [facility] 12-12-2024 11:50-0400 Diastolic blood pressure 82 mm[Hg] Ivna Ball DO Work Phone: [facility] 12-12-2024 11:50-0400 Heart rate 67 /min Ivan Ball DO Work Phone: [facility] 12-12-2024 11:50-0400 Respiratory rate 12 /min Ivan Ball DO Work Phone: [facility] 12-12-2024 11:50-0400 SaO2% (BldA) [Mass fraction] 97 % Ivan Ball DO Work Phone: [facility] 12-12-2024 11:50-0400 Systolic blood pressure 147 mm[Hg] Ivan Ball DO Work Phone: [facility] 12-09-2024 11:48-0400 Body height 160 cm Jamia Ndiaye MD Work Phone: [facility] 12-09-2024 11:48-0400 Body mass index (BMI) [Ratio] 25.51 kg/m2 Jamia Ndiaye MD Work Phone: [facility] 12-09-2024 11:48-0400 Body weight 65.32 kg Jamia Ndiaye MD Work Phone: [facility] 12-09-2024 11:48-0400 Diastolic blood pressure 60 mm[Hg] Jamia Ndiaye MD Work Phone: [facility] 12-09-2024 11:48-0400 Heart rate 76 /min Jamia Ndiaye MD Work Phone: [facility] 12-09-2024 11:48-0400 Systolic blood pressure 110 mm[Hg] Jamia Ndiaye MD Work Phone: [facility] 12-03-2024 09:43-0400 Body height 165.1 cm Shanice De La Cruz MD Work Phone: [facility] 12-03-2024 07:39-0400 Body temperature 97.9 [degF] Shanice De La Cruz MD Work Phone: [facility] 12-03-2024 07:39-0400 Diastolic blood pressure 68 mm[Hg] Shanice De La Cruz MD Work Phone: [facility] 12-03-2024 07:39-0400 Heart rate 67 /min Shanice De La Cruz MD Work Phone: [facility] 12-03-2024 07:39-0400 SaO2% (BldA) [Mass fraction] 93 % Shanice De La Cruz MD Work Phone: [facility] 12-03-2024 07:39-0400 Systolic blood pressure 118 mm[Hg] Shanice De La Cruz MD Work Phone: [facility] 12-02-2024 23:14-0400 Respiratory rate 16 /min Shanice De La Cruz MD Work Phone: [facility] 12-02-2024 07:01-0400 Body mass index (BMI) [Ratio] 23.48 kg/m2 Shanice De La Cruz MD Work Phone: [facility] 12-02-2024 07:01-0400 Body weight 64 kg Shanice De La Cruz MD Work Phone: [facility] 11-29-2024 08:46-0400 Body temperature 97.9 [degF] Ivan Ball DO Work Phone: [facility] 11-29-2024 08:46-0400 Diastolic blood pressure 70 mm[Hg] Ivan Ball DO Work Phone: [facility] 11-29-2024 08:46-0400 Heart rate 80 /min Ivan Ball DO Work Phone: [facility] 11-29-2024 08:46-0400 Respiratory rate 18 /min Ivan Ball DO Work Phone: [facility] 11-29-2024 08:46-0400 SaO2% (BldA) [Mass fraction] 96 % Ivan Ball DO Work Phone: [facility] 11-29-2024 08:46-0400 Systolic blood pressure 155 mm[Hg] Ivan Ball DO Work Phone: [facility] 11-29-2024 06:00-0400 Body weight 64.5 kg Ivan Ball DO Work Phone: [facility] 11-25-2024 18:19-0400 Body height 165.1 cm Ivan Ball DO Work Phone: [facility] 11-25-2024 16:09-0400 Diastolic blood pressure 78 mm[Hg] Ivan Ball DO Work Phone: [facility] 11-25-2024 16:09-0400 Heart rate 70 /min Ivan Ball DO Work Phone: [facility] 11-25-2024 16:09-0400 Respiratory rate 18 /min Ivan Ball DO Work Phone: [facility] 11-25-2024 16:09-0400 SaO2% (BldA) [Mass fraction] 98 % Ivan Ball DO Work Phone: [facility] 11-25-2024 16:09-0400 Systolic blood pressure 170 mm[Hg] Ivan Ball DO Work Phone: [facility] 11-25-2024 13:25-0400 Body height 165.1 cm Ivan Ball DO Work Phone: [facility] 11-25-2024 13:25-0400 Body temperature 97.7 [degF] Ivan Ball DO Work Phone: [facility] 11-25-2024 13:25-0400 Body weight 67.4 kg Ivan Ball DO Work Phone: [facility] 10-26-2024 15:19-0400 Body height 165.1 cm Jamia Ndiaye MD Work Phone: [facility] 10-26-2024 15:19-0400 Body mass index (BMI) [Ratio] 24.79 kg/m2 Jamia Ndiaye MD Work Phone: [facility] 10-26-2024 15:19-0400 Body weight 67.59 kg Jamia Ndiaye MD Work Phone: [facility] 10-26-2024 15:19-0400 Diastolic blood pressure 84 mm[Hg] Jamia Ndiaye MD Work Phone: [facility] 10-26-2024 15:19-0400 Heart rate 68 /min Jamia Ndiaye MD Work Phone: [facility] 10-26-2024 15:19-0400 Systolic blood pressure 122 mm[Hg] Jamia Ndiaye MD Work Phone: [facility] 10-18-2024 11:06-0400 Body height 165.1 cm [facility] 10-18-2024 11:06-0400 Body mass index (BMI) [Ratio] 24.8 kg/m2 [facility] 10-18-2024 11:06-0400 Body weight 67.81 kg [facility] 10-18-2024 11:06-0400 Diastolic blood pressure 93 mm[Hg] [facility] 10-18-2024 11:06-0400 Heart rate 66 /min [facility] 10-18-2024 11:06-0400 Respiratory rate 12 /min [facility] 10-18-2024 11:06-0400 Systolic blood pressure 179 mm[Hg] [facility] 09-28-2024 10:01-0500 Body mass index (BMI) [Ratio] 24.79 kg/m2 Jordan Visci DO Work Phone: [facility] 09-28-2024 10:01-0500 Body weight 67.59 kg Jordan Visci DO Work Phone: [facility] 09-28-2024 10:01-0500 Diastolic blood pressure 80 mm[Hg] Jordan Visci DO Work Phone: [facility] 09-28-2024 10:01-0500 Systolic blood pressure 102 mm[Hg] Jordan Visci DO Work Phone: [facility] 07-19-2024 13:29-0500 Body height 165.1 cm [facility] 07-19-2024 13:29-0500 Body mass index (BMI) [Ratio] 24.3 kg/m2 [facility] 07-19-2024 13:29-0500 Body weight 66.45 kg [facility] 07-19-2024 13:29-0500 Diastolic blood pressure 88 mm[Hg] [facility] 07-19-2024 13:29-0500 Heart rate 76 /min [facility] 07-19-2024 13:29-0500 Respiratory rate 12 /min [facility] 07-19-2024 13:29-0500 Systolic blood pressure 185 mm[Hg] [facility] 07-01-2024 09:54-0500 Body height 165.1 cm [facility] 07-01-2024 09:54-0500 Body mass index (BMI) [Ratio] 24.5 kg/m2 [facility] 07-01-2024 09:54-0500 Body weight 66.81 kg [facility] 07-01-2024 09:54-0500 Diastolic blood pressure 70 mm[Hg] [facility] 07-01-2024 09:54-0500 Heart rate 68 /min [facility] 07-01-2024 09:54-0500 Systolic blood pressure 112 mm[Hg] [facility] 06-27-2024 10:50-0500 Body height 165.1 cm Yoselin PERSAUDM Work Phone: [facility] 06-27-2024 10:50-0500 Body mass index (BMI) [Ratio] 24.13 kg/m2 Yoselin Weir DPM Work Phone: [facility] 06-27-2024 10:50-0500 Body weight 65.77 kg Yoselin PERSAUDM Work Phone: [facility] 05-30-2024 11:00-0400 Body height 165.1 cm Jamia Ndiaye MD Work Phone: [facility] 05-30-2024 11:00-0400 Body mass index (BMI) [Ratio] 24.03 kg/m2 aJmia Ndiaye MD Work Phone: [facility] 05-30-2024 11:00-0400 Body weight 65.5 kg Jamia Ndiaye MD Work Phone: [facility] 05-30-2024 11:00-0400 Diastolic blood pressure 90 mm[Hg] Jamia Ndiaye MD Work Phone: [facility] 05-30-2024 11:00-0400 Heart rate 71 /min Jamia Ndiaye MD Work Phone: [facility] 05-30-2024 11:00-0400 Systolic blood pressure 170 mm[Hg] Jamia Ndiaye MD Work Phone: [facility] 05-27-2024 14:13-0400 Body height 165.1 cm [facility] 05-27-2024 14:13-0400 Body mass index (BMI) [Ratio] 24 kg/m2 [facility] 05-27-2024 14:13-0400 Body weight 65.54 kg [facility] 05-27-2024 14:13-0400 Diastolic blood pressure 90 mm[Hg] [facility] 05-27-2024 14:13-0400 Heart rate 78 /min [facility] 05-27-2024 14:13-0400 Respiratory rate 12 /min [facility] 05-27-2024 14:13-0400 Systolic blood pressure 175 mm[Hg] [facility] 05-26-2024 08:38-0400 Body height 162.6 cm Ramone Perkins MD Work Phone: [facility] 05-26-2024 08:38-0400 Body mass index (BMI) [Ratio] 25.23 kg/m2 Ramone Perkins MD Work Phone: [facility] 05-26-2024 08:38-0400 Body weight 66.68 kg Ramone Perkins MD Work Phone: [facility] 05-25-2024 10:16-0400 Body mass index (BMI) [Ratio] 24.13 kg/m2 Jordan Wisdom DO Work Phone: [facility] 05-25-2024 10:16-0400 Body weight 65.77 kg Jordan Visci DO Work Phone: [facility] 05-25-2024 10:16-0400 Diastolic blood pressure 76 mm[Hg] Jordan Visci DO Work Phone: [facility] 05-25-2024 10:16-0400 Systolic blood pressure 132 mm[Hg] Jordan Visci DO Work Phone: [facility] 04-25-2024 10:48-0400 Body height 165.1 cm DO Jordan Visci Work Phone: [facility] 04-25-2024 10:48-0400 Body mass index (BMI) [Ratio] 24.6 kg/m2 DO Jordan Visci Work Phone: [facility] 04-25-2024 10:48-0400 Body weight 67.13 kg DO Jordan Visci Work Phone: [facility] 04-25-2024 10:48-0400 Diastolic blood pressure 78 mm[Hg] DO Jordan Visci Work Phone: [facility] 04-25-2024 10:48-0400 Heart rate 82 /min DO Jordan Visci Work Phone: [facility] 04-25-2024 10:48-0400 SaO2% (BldA) [Mass fraction] 98 % DO Jordan Visci Work Phone: [facility] 04-25-2024 10:48-0400 Systolic blood pressure 146 mm[Hg] DO Jordan Visci Work Phone: [facility] 03-28-2024 10:55-0400 Body height 165.1 cm Yoselin Weir DPM Work Phone: [facility] 03-28-2024 10:55-0400 Body mass index (BMI) [Ratio] 25.13 kg/m2 Yoselin Weir DPM Work Phone: [facility] 03-28-2024 10:55-0400 Body weight 68.49 kg Yoselin Rusher DPM Work Phone: [facility] 03-02-2024 10:03-0400 Body height 165.1 cm DO Ivan Ball Work Phone: [facility] 03-02-2024 10:03-0400 Body mass index (BMI) [Ratio] 25.5 kg/m2 DO Ivan Ball Work Phone: [facility] 03-02-2024 10:03-0400 Body weight 69.56 kg DO Ivan Ball Work Phone: [facility] 03-02-2024 10:03-0400 Diastolic blood pressure 89 mm[Hg] DO Ivan Ball Work Phone: [facility] 03-02-2024 10:03-0400 Heart rate 65 /min DO Ivan Ball Work Phone: [facility] 03-02-2024 10:03-0400 Respiratory rate 12 /min DO Ivan Ball Work Phone: [facility] 03-02-2024 10:03-0400 Systolic blood pressure 139 mm[Hg] DO Ivan Ball Work Phone: [facility] 03-01-2024 14:17-0400 Blood Pressure Location [address] [facility] [facility] 03-01-2024 14:17-0400 Body temperature 96.8 [degF] [address] [facility] [facility] 03-01-2024 14:17-0400 Diastolic blood pressure 66 mm[Hg] [address] [facility] 03-01-2024 14:17-0400 Heart rate 62 /min [facility] [facility] 03-01-2024 14:17-0400 Respiratory rate 18 /min [address] [facility] 03-01-2024 14:17-0400 Systolic blood pressure 126 mm[Hg] [address] [facility] 02-08-2024 11:02-0400 Blood Pressure Location Antonina Galea [facility] 02-08-2024 11:02-0400 Diastolic blood pressure 84 mm[Hg] Antonina Galea [facility] 02-08-2024 11:02-0400 Heart rate 60 /min Antonina Galea [facility] 02-08-2024 11:02-0400 Systolic blood pressure 143 mm[Hg] Antonina Galea [facility] 01-12-2024 09:44-0400 Body height 165.1 cm Pineda Santillan MD Work Phone: [facility] 01-12-2024 09:44-0400 Body mass index (BMI) [Ratio] 24.63 kg/m2 Pineda Santillan MD Work Phone: [facility] 01-12-2024 09:44-0400 Body weight 67.13 kg Pineda Santillan MD Work Phone: [facility] 01-12-2024 09:44-0400 Diastolic blood pressure 73 mm[Hg] Pineda Santillan MD Work Phone: [facility] 01-12-2024 09:44-0400 Heart rate 65 /min Pineda Santillan MD Work Phone: [facility] 01-12-2024 09:44-0400 Systolic blood pressure 152 mm[Hg] Pineda Santillan MD Work Phone: [facility] 12-24-2023 09:21-0400 Body height 165.1 cm DO Ivan Ball Work Phone: [facility] 12-24-2023 09:21-0400 Body mass index (BMI) [Ratio] 25.4 kg/m2 DO Ivan Ball Work Phone: [facility] 12-24-2023 09:21-0400 Body weight 69.45 kg DO Ivan Ball Work Phone: [facility] 12-24-2023 09:21-0400 Diastolic blood pressure 74 mm[Hg] DO Ivan Ball Work Phone: [facility] 12-24-2023 09:21-0400 Heart rate 71 /min DO Ivan Ball Work Phone: [facility] 12-24-2023 09:21-0400 Respiratory rate 16 /min DO Ivan Ball Work Phone: [facility] 12-24-2023 09:21-0400 Systolic blood pressure 149 mm[Hg] DO Ivan Ball Work Phone: [facility] 12-23-2023 09:08-0400 Diastolic blood pressure 70 mm[Hg] DO Ivan Ball Work Phone: [facility] 12-23-2023 09:08-0400 Heart rate 63 /min DO Ivan Ball Work Phone: [facility] 12-23-2023 09:08-0400 Respiratory rate 20 /min DO Ivan Ball Work Phone: [facility] 12-23-2023 09:08-0400 SaO2% (BldA) [Mass fraction] 95 % DO Ivan Ball Work Phone: [facility] 12-23-2023 09:08-0400 Systolic blood pressure 180 mm[Hg] DO Ivan Ball Work Phone: [facility] 12-23-2023 07:55-0400 Body height 165.1 cm DO Ivan Ball Work Phone: [facility] 12-23-2023 07:55-0400 Body temperature 98.2 [degF] DO Ivan Ball Work Phone: [facility] 12-23-2023 07:55-0400 Body weight 72.6 kg DO Ivan Ball Work Phone: [facility] 11-30-2023 10:23-0400 Diastolic blood pressure 56 mm[Hg] Sulma Busby [employer] Work Phone: [facility] 11-30-2023 10:23-0400 Systolic blood pressure 102 mm[Hg] Sulma Busby [employer] Work Phone: [facility] 11-30-2023 10:18-0400 Body height 165.1 cm Sulma Busby [employer] Work Phone: [facility] 11-30-2023 10:18-0400 Body mass index (BMI) [Ratio] 24.63 kg/m2 Sulma Busby [employer] Work Phone: [facility] 11-30-2023 10:18-0400 Body weight 67.13 kg Sulma Busby [employer] Work Phone: [facility] [facility] 11-30-2023 10:18-0400 Heart rate 68 /min Sulma Busby MILLER SUPERVISOR-CEMETERY VAULT INSTALLER Work Phone: [facility] 11-19-2023 07:39-0400 Body temperature 97.5 [degF] DO Ivan Ball Work Phone: [facility] 11-19-2023 07:39-0400 Diastolic blood pressure 65 mm[Hg] DO Ivan Ball Work Phone: [facility] 11-19-2023 07:39-0400 Heart rate 71 /min DO Ivan Ball Work Phone: [facility] 11-19-2023 07:39-0400 Respiratory rate 20 /min DO Ivan Ball Work Phone: [facility] 11-19-2023 07:39-0400 SaO2% (BldA) [Mass fraction] 98 % DO Ivan Ball Work Phone: [facility] 11-19-2023 07:39-0400 Systolic blood pressure 132 mm[Hg] DO Ivan Ball Work Phone: [facility] 11-19-2023 04:32-0400 Body weight 68 kg DO Ivan Ball Work Phone: [facility] 11-18-2023 12:31-0400 Body height 165.1 cm DO Ivan Ball Work Phone: [facility] 11-10-2023 08:59-0400 Diastolic blood pressure 78 mm[Hg] [address] 11-10-2023 08:59-0400 Heart rate 61 /min [address] 11-10-2023 08:59-0400 Systolic blood pressure 128 mm[Hg] [address] 10-20-2023 13:51-0400 Body height 165.1 cm [facility] 10-20-2023 13:51-0400 Body mass index (BMI) [Ratio] 25.2 kg/m2 [facility] 10-20-2023 13:51-0400 Body weight 68.94 kg [facility] 10-20-2023 13:51-0400 Diastolic blood pressure 80 mm[Hg] [facility] 10-20-2023 13:51-0400 Heart rate 60 /min [facility] 10-20-2023 13:51-0400 Respiratory rate 12 /min [facility] 10-20-2023 13:51-0400 Systolic blood pressure 145 mm[Hg] [facility] 08-14-2023 09:15-0500 Body height 165.1 cm Ivan Ball Other [facility] 08-14-2023 09:15-0500 Body mass index (BMI) [Ratio] 26.56 kg/m2 Ivan Ball Other [employer] Other 08-14-2023 09:15-0500 Body weight 72.39 kg Ivan Ball Other [facility] 08-14-2023 09:15-0500 Diastolic blood pressure 80 mm[Hg] Ivan Ball Other [facility] 08-14-2023 09:15-0500 Respiratory rate 12 /min Ivan Ball Other [facility] [employer] Other 08-14-2023 09:15-0500 Systolic blood pressure 138 mm[Hg] Ivan Ball Other [facility] 07-02-2023 11:00-0500 Body height 165.1 cm Ivan Ball Other [facility] Other 07-02-2023 11:00-0500 Body mass index (BMI) [Ratio] 25.96 kg/m2 Ivan Ball Other [facility] Other 07-02-2023 11:00-0500 Body weight 70.76 kg Ivan Ball Other [facility] Other 07-02-2023 11:00-0500 Diastolic blood pressure 77 mm[Hg] Ivan Ball Other [employer] Other 07-02-2023 11:00-0500 Respiratory rate 12 /min Ivan Ball Other [employer] Other 07-02-2023 11:00-0500 Systolic blood pressure 128 mm[Hg] Ivan Ball Other [employer] Other 06-15-2023 09:14-0500 Body height 165.1 cm Pineda Santillan MD Work Phone: [facility] 06-15-2023 09:14-0500 Body mass index (BMI) [Ratio] 25.96 kg/m2 Pineda Santillan MD Work Phone: [facility] 06-15-2023 09:14-0500 Body weight 70.76 kg Pineda Santillan MD Work Phone: [facility] 06-15-2023 09:14-0500 Diastolic blood pressure 78 mm[Hg] Pineda Santillan MD Work Phone: [facility] 06-15-2023 09:14-0500 Heart rate 62 /min Pineda Santillan MD Work Phone: [facility] 06-15-2023 09:14-0500 Systolic blood pressure 114 mm[Hg] Pineda Santillan MD Work Phone: [facility] 03-16-2023 15:15-0400 Body height 165.1 cm Ivan Ball Other [employer] Other 03-16-2023 15:15-0400 Body mass index (BMI) [Ratio] 25.16 kg/m2 Ivan Ball Other [employer] Other 03-16-2023 15:15-0400 Body weight 68.58 kg Ivan Ball Other [employer] Other 03-16-2023 15:15-0400 Diastolic blood pressure 80 mm[Hg] Ivan Ball Other [employer] Other 03-16-2023 15:15-0400 Respiratory rate 12 /min Ivan Ball Other [employer] Other 03-16-2023 15:15-0400 Systolic blood pressure 127 mm[Hg] Ivan Ball Other [employer] Other 02-27-2023 14:00-0400 Body height 165.1 cm Ivan Ball Other [employer] Other 02-27-2023 14:00-0400 Body mass index (BMI) [Ratio] 25.39 kg/m2 Ivan Ball Other [facility] Other 02-27-2023 14:00-0400 Body weight 69.22 kg Ivan Ball Other [employer] Other 02-27-2023 14:00-0400 Diastolic blood pressure 85 mm[Hg] Ivan Ball Other [employer] [facility] Other 02-27-2023 14:00-0400 Respiratory rate 12 /min Ivan Ball Other [facility] Other 02-27-2023 14:00-0400 Systolic blood pressure 161 mm[Hg] Ivan Ball Other [facility] Other 02-05-2023 12:11-0400 Body height 165.1 cm Ivan E Ball Work Phone: [facility] [employer] DO Work Phone: 02-05-2023 12:11-0400 Body mass index (BMI) [Ratio] 25.46 kg/m2 Ivan E Ball Work Phone: [facility] [employer] DO Work Phone: 02-05-2023 12:11-0400 Body surface area Derived from formula 1.77 m2 Ivan E Ball Work Phone: [facility] [employer] 250 DO Work Phone: 02-05-2023 12:11-0400 Body weight 69.4 kg Ivan E Ball Work Phone: [facility] [employer] 250 DO Work Phone: 02-05-2023 12:11-0400 Diastolic blood pressure 84 mm[Hg] Ivan E Ball Work Phone: [facility] [employer] 250 DO Work Phone: 02-05-2023 12:11-0400 Heart rate 60 /min Ivan E Ball Work Phone: [facility] [employer] 250 DO Work Phone: 02-05-2023 12:11-0400 Systolic blood pressure 138 mm[Hg] Ivan E Ball Work Phone: [facility] 250 DO Work Phone: 01-27-2023 10:45-0400 Body height 165.1 cm Ivan Ball Other [facility] Other 01-27-2023 10:45-0400 Body mass index (BMI) [Ratio] 25.49 kg/m2 Ivan Ball Other [facility] [employer] Other 01-27-2023 10:45-0400 Body weight 69.49 kg Ivan Ball Other [facility] [employer] Other 01-27-2023 10:45-0400 Diastolic blood pressure 70 mm[Hg] Ivan Ball Other [facility] [employer] Other 01-27-2023 10:45-0400 Respiratory rate 12 /min Ivan Ball Other [facility] [employer] Other 01-27-2023 10:45-0400 Systolic blood pressure 103 mm[Hg] Ivan Ball Other [facility] [employer] Other 01-16-2023 12:00-0400 Body temperature 97.5 [degF] DO Chaitanya Keister Work Phone: [facility] 01-16-2023 12:00-0400 Diastolic blood pressure 81 mm[Hg] DO Chaitanya Keister Work Phone: [facility] 01-16-2023 12:00-0400 Heart rate 67 /min DO Chaitanya Keister Work Phone: [facility] 01-16-2023 12:00-0400 Respiratory rate 20 /min DO Chaitanya Keister Work Phone: [facility] 01-16-2023 12:00-0400 SaO2% (BldA) [Mass fraction] 97 % DO Chaitanya Keister Work Phone: [facility] 01-16-2023 12:00-0400 Systolic blood pressure 122 mm[Hg] DO Chaitanya Keister Work Phone: [facility] 01-16-2023 04:31-0400 Body weight 73.1 kg DO Chaitanya Keister Work Phone: [facility] 01-15-2023 15:08-0400 45 1 Ivan She Barreto Work Phone: [facility] 250 DO Work Phone: Comment on above: [id number] 01-15-2023 10:45-0400 Body height 172.72 cm DO Chaitanya Keister Work Phone: [facility] 01-14-2023 15:37-0400 Inhaled oxygen flow rate 2 L/min DO Chaitanya Keister Work Phone: [facility] 01-14-2023 11:00-0400 Inhaled oxygen flow rate 4 L/min DO Chaitanya Keister Work Phone: [facility] 01-14-2023 09:19-0400 Diastolic blood pressure 93 mm[Hg] DO Chaitanya Keister Work Phone: [facility] 01-14-2023 09:19-0400 Heart rate 74 /min DO Chaitanya Keister Work Phone: [facility] 01-14-2023 09:19-0400 SaO2% (BldA) [Mass fraction] 97 % DO Chaitanya Keister Work Phone: [facility] 01-14-2023 09:19-0400 Systolic blood pressure 167 mm[Hg] DO Chaitanya Keister Work Phone: [facility] 01-14-2023 09:15-0400 Body temperature 96.7 [degF] DO Chaitanya Lu Work Phone: [facility] 01-14-2023 09:14-0400 Respiratory rate 20 /min DO Chaitanya Lu Work Phone: [facility] 01-14-2023 09:07-0400 Body height 165.1 cm DO Chaitanya Perkinsister Work Phone: [facility] 01-14-2023 09:07-0400 Body weight 74 kg DO Chaitanya Lu Work Phone: [facility] 09-17-2022 12:00-0500 Body height 165.1 cm Ivan Ball Other [facility] [employer] Other 09-17-2022 12:00-0500 Body mass index (BMI) [Ratio] 26.12 kg/m2 Ivan Ball Other [facility] Other 09-17-2022 12:00-0500 Body weight 71.22 kg Ivan Ball Other [facility] Other 09-17-2022 12:00-0500 Diastolic blood pressure 82 mm[Hg] Ivan Ball Other [facility] Other 09-17-2022 12:00-0500 Respiratory rate 12 /min Ivan Ball Other [facility] Other 09-17-2022 12:00-0500 Systolic blood pressure 136 mm[Hg] Ivan Ball Other [facility] Other 06-04-2022 17:32-0400 Body height 165.1 cm Ivan She Ball Work Phone: [facility] 250 DO Work Phone: 06-04-2022 17:32-0400 Body mass index (BMI) [Ratio] 26.13 kg/m2 Ivan Nowak Ball Work Phone: [facility] 250 DO Work Phone: 06-04-2022 17:32-0400 Body surface area Derived from formula 1.78 m2 Ivan E Ball Work Phone: [facility] 250 DO Work Phone: 06-04-2022 17:32-0400 Body weight 71.22 kg Ivan E Ball Work Phone: [facility] 250 DO Work Phone: 06-04-2022 17:32-0400 Diastolic blood pressure 74 mm[Hg] Ivan E Ball Work Phone: [facility] 250 DO Work Phone: 06-04-2022 17:32-0400 Heart rate 72 /min Ivan E Ball Work Phone: [facility] 250 DO Work Phone: 06-04-2022 17:32-0400 Systolic blood pressure 137 mm[Hg] Ivan E Ball Work Phone: [facility] 250 DO Work Phone: 06-04-2022 15:21-0400 Body height 165.1 cm Ivan E Ball Work Phone: [facility] 250 DO Work Phone: 06-04-2022 15:21-0400 Body mass index (BMI) [Ratio] 26.13 kg/m2 Ivan E Ball Work Phone: [facility] 250 DO Work Phone: 06-04-2022 15:21-0400 Body surface area Derived from formula 1.78 m2 Ivan E Ball Work Phone: [facility] 250 DO Work Phone: 06-04-2022 15:21-0400 Body weight 71.22 kg Ivan Nowak Ball Work Phone: [facility] 250 DO Work Phone: 06-04-2022 15:21-0400 Diastolic blood pressure 68 mm[Hg] Ivan Nowak Ball Work Phone: [facility] [facility] DO Work Phone: 06-04-2022 15:21-0400 Heart rate 72 /min Ivan Nowak Ball Work Phone: [facility] 250 DO Work Phone: 06-04-2022 15:21-0400 Systolic blood pressure 144 mm[Hg] Ivan Barreto Work Phone: [facility] 250 DO Work Phone: Encounters Encounter Date Encounter Type Care Provider Facility Start: 05-08-2025 End: 05-08-2025 [employer] flowsheet Yoselin Weir DPM Work Phone: [facility] Start: 05-08-2025 End: 05-08-2025 Bamboo flowsheet Yoselin Weir DPM Work Phone: [facility] Start: 05-08-2025 End: 05-08-2025 Patient encounter procedure Yoselin Weir DPM Work Phone: [facility] Comment on above: Dermatophytosis of n ail (Primary Dx); Dystrophic nail; Pain around toenail, right foot; Pain around toenail, left foot Start: 05-08-2025 End: 05-08-2025 ambulatory YOSELIN WEIR Not Available Start: 04-11-2025 End: 04-11-2025 ambulatory SULMA BUSBY [facility] Ambulatory Start: 04-11-2025 End: 04-11-2025 Office outpatient visit 25 minutes Sulma Antonio Paterson MILLER SUPERVISOR-CEMETERY VAULT INSTALLER Work Phone: [facility] Comment on above: Two-vessel coronary artery disease (Primary Dx); ASCVD (arteriosclerotic cardiovascular disease); Essential hypertension; Mixed hyperlipidemia; Mild aortic stenosis; BMI 24.0-24.9, adult; Congestive heart failure, NYHA class 2 and ACC/AHA stage C Start: 02-24-2025 End: 02-24-2025 ambulatory Ivan Barreto DO Work Phone: [facility] Work Phone: Start: 02-24-2025 End: 02-24-2025 Patient encounter procedure Ivan Barreto DO [facility] Work Phone: Start: 02-13-2025 Non-patient / Non-visit Xochitl Hutson COFFEE SHOP ATTENDANT -[facility] Work Phone: Start: 02-09-2025 Non-patient / Non-visit Rashawn Mahmood [facility] Work Phone: Start: 02-09-2025 End: 02-10-2025 ambulatory Louis Oliveira Facility:[facility] Start: 02-09-2025 End: 02-10-2025 Evaluation and management of inpatient Louis Oliveira MD -[facility] Work Phone: Start: 02-09-2025 End: 02-10-2025 observation encounter Ivan Barreto DO Work Phone: [facility] Work Phone: Start: 02-06-2025 End: 02-06-2025 ambulatory Ivan Ball DO Work Phone: [facility] Work Phone: Start: 02-06-2025 End: 02-06-2025 Patient encounter procedure Ivan Barreto DO -[facility] Work Phone: Start: 02-06-2025 Non-patient / Non-visit Xochitl Hutson COFFEE SHOP ATTENDANT -[facility] Work Phone: Start: 02-03-2025 End: 02-03-2025 Emergency department patient visit Ivan Ball DO Work Phone: -Emergency Room Work Phone: Start: 01-30-2025 End: 01-30-2025 Bamboo flowsheet Yoselin Weir DPM Work Phone: [facility] Start: 01-30-2025 End: 01-30-2025 Bamboo flowsheet Yoselin Weir DPM Work Phone: [facility] Start: 01-30-2025 End: 01-30-2025 Patient encounter procedure Yoselin Weir DPM Work Phone: [facility] Comment on above: Dermatophytosis of n ail (Primary Dx); Dystrophic nail; Pain around toenail, right foot; Pain around toenail, left foot Start: 01-30-2025 End: 01-30-2025 ambulatory YOSELIN WEIR Not Available Start: 01-26-2025 End: 01-26-2025 Office outpatient visit 15 minutes Jamia Ndiaye MD Work Phone: [facility] Comment on above: Orthostatic hypotens ion (Primary Dx); Essential hypertension; Palpitations; Never smoked cigarettes; BMI 24.0-24.9, adult; Weakness Start: 01-26-2025 End: 01-26-2025 ambulatory [facility] Ambulatory Start: 01-25-2025 End: 01-25-2025 ambulatory JORDAN A VISCI Not Available Start: 01-25-2025 End: 01-25-2025 Office outpatient visit 15 minutes Jordan Wisdom DO Work Phone: [facility] Comment on above: Pessary maintenance; Cystocele with rectocele; Urethral caruncle; Vaginal atrophy Start: 01-10-2025 End: 01-10-2025 Bamboo flowsheet Celina CAMPBELL Work Phone: [facility] Start: 01-10-2025 End: 01-10-2025 Bamboo flowsheet Celina CAMPBELL Work Phone: [facility] Start: 01-10-2025 End: 01-10-2025 Office outpatient visit 15 minutes Celina CAMPBELL Work Phone: [facility] Comment on above: Arthritis of right k nee (Primary Dx); Acute pain of right knee Start: 01-10-2025 End: 01-10-2025 ambulatory CELINA MUÑOZ Not Available Start: 12-12-2024 End: 12-12-2024 ambulatory Ivan Barreto [employer] Work Phone: [facility] Work Phone: Start: 12-12-2024 End: 12-12-2024 Patient encounter procedure Ivan [facility] Work Phone: [facility] Work Phone: Start: 12-09-2024 End: 12-09-2024 Transitional care manage srvc 7 day discharge Jamia Ndiaye MD Work Phone: [facility] Comment on above: Two-vessel coronary artery disease (Primary Dx); Mixed hyperlipidemia; Mild aortic stenosis; History of PTCA; Essential hypertension; NSTEMI (non-ST elevated myocardial infarction) (Multi); Congestive heart failure, NYHA class 2 and ACC/AHA stage C; BMI 25.0-25.9,adult; Never smoked cigarettes Start: 12-09-2024 End: 12-09-2024 ambulatory [facility] Ambulatory Start: 12-09-2024 ambulatory Jerson Lawrence ty:ETHEL Ernandez Start: 12-05-2024 Non-patient / Non-visit Benjam in [facility] Work Phone: [facility] Work Phone: Start: 11-29-2024 End: 12-03-2024 Encounter for other preprocedural examination NIR MIN [facility] Start: 11-29-2024 End: 12-03-2024 Encounter for preprocedural cardiovascular examination [facility] Start: 11-29-2024 End: 12-03-2024 Evaluation and management of inpatient Shanice De La Cruz MD Work Phone: [facility] 8 Cardiac Intensive Care Comment on above: NSTEMI (non-ST eleva law myocardial infarction) (Multi) (Primary Dx); Preop cardiovascular exam; Encounter for follow-up examination after completed treatment for conditions other than malignant neoplasm; Encounter for other preprocedural examination; Acute coronary microvascular dysfunction (Multi); Angina pectoris, unspecified; Essential hypertension Start: 11-29-2024 End: 12-03-2024 Patient encounter status Shanice De La Cruz MD Work Phone: [facility] Work Phone: Start: 11-29-2024 End: 11-29-2024 ambulatory Jerson STREETER Facility:CD:[id number] Start: 11-28-2024 Evaluation and manag ement of inpatient SHANICE [facility] Start: 11-25-2024 End: 11-29-2024 Evaluation and management of inpatient Ivan Barreto DO Work Phone: [facility] [place] Work Phone: Start: 11-15-2024 Non-patient / Non-visit Benjam in Ball DO Work Phone: [facility] Work Phone: Start: 10-26-2024 End: 10-26-2024 Office outpatient visit 25 minutes Jamia Ndiaye MD Work Phone: [facility] Comment on above: Two-vessel coronary artery disease (Primary Dx); ASCVD (arteriosclerotic cardiovascular disease); Mixed hyperlipidemia; Mild aortic stenosis; History of PTCA; Essential hypertension; Congestive heart failure, NYHA class 2 and ACC/AHA stage C; BMI 24.0-24.9, adult; Never smoked cigarettes Start: 10-26-2024 End: 10-26-2024 ambulatory [facility] Ambulatory Start: 10-18-2024 End: 10-18-2024 ambulatory [facility] Work Phone: Start: 10-18-2024 End: 10-18-2024 Patient encounter procedure [facility] Work Phone: Start: 10-10-2024 End: 10-10-2024 Patient encounter procedure Yoselin Weir [facility] Work Phone: [facility] Comment on above: Dermatophytosis of n ail (Primary Dx); Dystrophic nail; Pain around toenail, right foot; Pain around toenail, left foot Start: 10-10-2024 End: 10-10-2024 ambulatory YOSELIN Raudel BARRERA Not Available Start: 09-28-2024 End: 09-28-2024 Office outpatient visit 15 minutes Jordan Raudel Wisdom DO Work Phone: [facility] Comment on above: Pessary maintenance; Cystocele with rectocele; Urethral caruncle; Vaginal atrophy; Vulvar irritation Start: 09-28-2024 End: 09-28-2024 ambulatory JORDAN WISDOM Not Available Start: 09-09-2024 End: 09-09-2024 ambulatory [facility] Work Phone: Start: 09-09-2024 End: 09-09-2024 Patient encounter procedure [facility] Work Phone: Start: 09-07-2024 End: 09-07-2024 Bamboo flowsheet Lisa Davenport CCC-A Work Phone: [facility] Start: 09-07-2024 End: 09-07-2024 Bamboo flowsheet Lisa Davenport CCC-A Work Phone: [facility] Start: 09-07-2024 End: 09-07-2024 Clinical Support Lisa Davenport CCC-A Work Phone: [facility] Comment on above: Bilateral impacted c erumen (Primary Dx) Start: 07-19-2024 End: 07-19-2024 Patient encounter procedure [facility] Work Phone: Start: 07-11-2024 Non-patient / Non-visit [facility] Work Phone: Start: 07-04-2024 ambulatory [facility] Start: 07-01-2024 End: 07-01-2024 Patient encounter procedure [facility]ician [facility] Work Phone: Start: 06-29-2024 Patient encounter procedure [facility] Start: 06-27-2024 End: 06-27-2024 Bamboo flowsheet Yoselin Weir DPM Work Phone: [facility] Start: 06-27-2024 End: 06-27-2024 Bamboo flowsheet Yoselin Weir DPM Work Phone: [facility] Start: 06-27-2024 End: 06-27-2024 ambulatory YOSELIN WEIR Not Available Start: 06-27-2024 End: 06-27-2024 Patient encounter procedure Yoselin Weir DPM Work Phone: [facility] Comment on above: Dermatophytosis of n ail (Primary Dx); Dystrophic nail; Pain around toenail, right foot; Pain around toenail, left foot Start: 06-24-2024 End: 06-24-2024 [facility] Start: 06-22-2024 Non-patient / Non-visit [facility] Work Phone: Start: 06-06-2024 ambulatory [facility] Start: 05-31-2024 End: 05-31-2024 Bamboo flowsheet Aidan Suazo DO Work Phone: [facility] Start: 05-31-2024 End: 05-31-2024 Bamboo flowsheet Aidan Suazo DO Work Phone: [facility] Start: 05-31-2024 End: 05-31-2024 Office outpatient visit 10 minutes Aidan Suazo DO Work Phone: [facility] Comment on above: Status post right hi p replacement; Primary osteoarthritis of right hip Start: 05-31-2024 End: 05-31-2024 ambulatory AIDAN Raudel SUAZO Not Available Start: 05-30-2024 End: 05-30-2024 Cardiovascular system normal Jamia Ndiaye MD Work Phone: [facility] Work Phone: Start: 05-30-2024 Encounter for prepro cedural cardiovascular examination NIR [facility] Start: 05-30-2024 End: 05-30-2024 Office outpatient visit 25 minutes Jamia Ndiaye MD Work Phone: [facility] Comment on above: Pre-operative cardio vascular examination (Primary Dx); ASCVD (arteriosclerotic cardiovascular disease); Two-vessel coronary artery disease; Mixed hyperlipidemia; Mild aortic stenosis; History of PTCA; Essential hypertension; Never smoked cigarettes; BMI 24.0-24.9, adult Start: 05-30-2024 End: 05-30-2024 Patient encounter status Jamia Ndiaye MD Work Phone: [facility] Start: 05-30-2024 End: 05-30-2024 ambulatory [facility] Start: 05-30-2024 End: 05-30-2024 Encounter for preprocedural cardiovascular examination [facility] Start: 05-27-2024 End: 05-27-2024 ambulatory [facility] Work Phone: Start: 05-27-2024 End: 05-27-2024 Patient encounter procedure [facility]ician [facility] Work Phone: Start: 05-27-2024 ambulatory IVAN BARRETO [facility] Start: 05-26-2024 ambulatory RAMONE MARIANO [facility] Start: 05-26-2024 End: 05-26-2024 Office outpatient new 45 minutes Ramone Perkins MD Work Phone: [facility] Comment on above: Spondylolisthesis of lumbar region (Primary Dx); Lumbar spine pain Start: 05-26-2024 End: 05-26-2024 ambulatory [facility] [facility] Start: 05-25-2024 End: 05-25-2024 Bamboo flowsheet Jordan Starks Visci DO Work Phone: [facility] Start: 05-25-2024 End: 05-25-2024 Bamboo flowsheet Jordan A Visci DO Work Phone: [facility] Start: 05-25-2024 End: 05-25-2024 Office outpatient visit 15 minutes Jordan Raudel Visci DO Work Phone: [facility] Comment on above: Pessary maintenance; Cystocele with rectocele; Urethral caruncle; Vaginal atrophy Start: 05-25-2024 End: 05-25-2024 ambulatory [facility] Start: 05-20-2024 ambulatory Jerson Lawrence ty:EU Awais Start: 05-18-2024 ambulatory IVAN She BARRETO [facility] Start: 05-17-2024 End: 05-17-2024 Telephone encounter Jamaica Zamora RN [facility] Comment on above: mri Start: 05-17-2024 End: 05-17-2024 ambulatory AIDAN SUAZO Not Available Start: 05-10-2024 End: 05-10-2024 Bamboo flowsheet Aidan Suazo DO Work Phone: [facility] Start: 05-10-2024 End: 05-10-2024 Bamboo flowsheet Aidan Suazo DO Work Phone: [facility] Start: 05-10-2024 End: 05-10-2024 Office outpatient visit 25 minutes Aidan Suazo DO Work Phone: [facility] Comment on above: 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, unspecified back pain laterality (Primary Dx); Lumbar spine pain; Trigger point Start: 05-06-2024 End: 05-06-2024 ambulatory PINEDA ARAGON [facility] Start: 05-03-2024 End: 05-03-2024 ambulatory LEON LIAO [facility] Start: 05-02-2024 End: 05-10-2024 Telephone encounter Devin Birmingham NP Work Phone: [facility] Comment on above: injection Start: 04-29-2024 End: 04-29-2024 Bamboo flowsheet Devin Birmingham NP Work Phone: [facility] Start: 04-29-2024 End: 04-29-2024 Bamboo flowsheet Devin Birmingham NP Work Phone: [facility] Start: 04-29-2024 End: 04-29-2024 Office outpatient visit 25 minutes Devin Birmingham NP Work Phone: [facility] Comment on above: DDD (degenerative di sc disease), lumbar (Primary Dx); Chronic low back pain with right-sided sciatica, unspecified back pain laterality; Trigger point Start: 04-27-2024 ambulatory Jerson Lawrence ty:ETHEL Sargent Start: 04-25-2024 End: 04-25-2024 ambulatory DO Jordan Visci Work Phone: [facility] Work Phone: Start: 04-25-2024 End: 04-25-2024 Patient encounter procedure DO Jordan Visci Work Phone: [facility] Work Phone: Start: 04-12-2024 End: 04-12-2024 ambulatory DO Jordan Visci Work Phone: [facility] Work Phone: Start: 04-12-2024 End: 04-12-2024 Patient encounter procedure DO Jordan Visci Work Phone: [facility] Work Phone: Start: 04-07-2024 Non-patient / Non-visit DO Austen hard Visci Work Phone: [facility] Work Phone: Start: 03-28-2024 End: 03-28-2024 Bamboo flowsheet Yoselin Weir DPM Work Phone: [facility] Start: 03-28-2024 End: 03-28-2024 Bamboo flowsheet Yoselin Weir DPM Work Phone: [facility] Start: 03-28-2024 End: 03-28-2024 Patient encounter procedure Yoselin Weir DPM Work Phone: [facility] Comment on above: Dermatophytosis of n ail (Primary Dx); Dystrophic nail; Pain around toenail, right foot; Pain around toenail, left foot Start: 03-02-2024 End: 03-02-2024 ambulatory DO Ivan Mary Lou Work Phone: [facility] Work Phone: Start: 03-02-2024 End: 03-02-2024 Patient encounter procedure DO Ivan Mary Lou Work Phone: [facility] Work Phone: Start: 03-01-2024 End: 03-01-[address]erson [address]RE[address]ER Facility:[facility] Start: 03-01-2024 End: 03-01-2024 Patient encounter procedure Jerson STREETER [facility] Start: 02-24-2024 End: 02-24-2024 ambulatory DO Ivan Barreto Work Phone: [facility] Work Phone: Start: 02-24-2024 End: 02-24-2024 Departed Referred DO Ivan Mary Lou Work Phone: [facility] [place] Work Phone: Start: 02-18-2024 End: 04-06-2024 Pre-admission assessment Jerson STREETER [facility] Start: 02-18-2024 ambulatory Antoninagerri Cooper Facility :ETHEL Sargent Start: 02-08-2024 End: 02-08-2024 ambulatory Antonina Cooper Facility:EU Jeanette Start: 02-08-2024 End: 02-08-2024 Patient encounter procedure Antonina Cooper [facility] Jeanette Start: 01-29-2024 End: 01-29-2024 ambulatory DO Ivan Barreto Work Phone: [facility] Work Phone: Start: 01-29-2024 End: 01-29-2024 Patient encounter procedure DO Ivan Barreto Work Phone: [facility] Work Phone: Start: 01-12-2024 End: 01-12-2024 Office outpatient visit 25 minutes Pineda Santillan MD Work Phone: [facility] Comment on above: Essential hypertensi on (Primary Dx); ASCVD (arteriosclerotic cardiovascular disease); Mixed hyperlipidemia; History of PTCA; Never smoked cigarettes Start: 01-07-2024 End: 01-07-2024 ambulatory DO Ivan Ball Work Phone: [facility] Work Phone: Start: 01-07-2024 End: 01-07-2024 Patient encounter procedure DO Ivan Ball Work Phone: [facility]Electrodiagnostic s Work Phone: Start: 12-24-2023 End: 12-24-2023 ambulatory DO Ivan Barreto Work Phone: [facility] Work Phone: Start: 12-24-2023 End: 12-24-2023 Patient encounter procedure DO Ivan Barreto Work Phone: [facility] Work Phone: Start: 12-23-2023 End: 12-23-2023 Emergency department patient visit DO Ivan Barreto Work Phone: [facility]Emer[facility] Work Phone: Start: 11-30-2023 Non-patient / Non-visit DO Adan Barreto Work Phone: [facility] Work Phone: Start: 11-30-2023 End: 11-30-2023 Office outpatient visit 15 minutes Sulma Busby APRN-CEMETERY VAULT INSTALLER Work Phone: [facility] Comment on above: Dysuria (Primary Dx) ; Congestive heart failure, NYHA class 2 and ACC/AHA stage C (Multi); Weakness; ASCVD (arteriosclerotic cardiovascular disease) Start: 11-25-2023 Non-patient / Non-visit DO Adan Barreto Work Phone: [facility] Work Phone: Start: 11-18-2023 End: 11-19-2023 Admission to same day surgery center DO Ivan Barreto Work Phone: [facility] Work Phone: Start: 11-18-2023 End: 11-18-2023 ambulatory DO Ivan Barreto Work Phone: [facility] Work Phone: Start: 11-16-2023 End: 11-16-2023 ambulatory DO Ivan Barreto Work Phone: [facility] Work Phone: Start: 11-16-2023 End: 11-16-2023 Patient encounter procedure DO Ivan Barreto Work Phone: [facility]-Pre-Surgical Testing Work Phone: Start: 11-10-2023 End: 11-10-2023 Subsequent hospital visit by physician Leyla Strauss Admin Room [facility] Comment on above: ASCVD (arteriosclero tic cardiovascular disease); Chest tightness; Shortness of breath Start: 10-27-2023 End: 10-27-2023 ambulatory CELINA LIAO [facility] Start: 10-20-2023 End: 10-20-2023 ambulatory [facility] Work Phone: Start: 10-20-2023 End: 10-20-2023 Patient encounter procedure [facility] Work Phone: Start: 08-14-2023 End: 08-14-2023 ambulatory Ivan Barreto Other [employer] Other Start: 08-14-2023 Office outpatient vi sit 15 minutes Ivan Mary Lou [facility] Start: 08-14-2023 End: 08-14-2023 Patient encounter procedure [facility] Work Phone: Start: 07-02-2023 End: 07-02-2023 ambulatory Ivan Barreto Other [employer] Other Start: 07-02-2023 Patient encounter procedure Ivan Barreto [facility] Start: 07-01-2023 End: 07-01-2023 ambulatory Ivan Barreto Other [employer] Other Start: 07-01-2023 Telephone encounter Ivan Barreto [facility] Start: 06-15-2023 End: 06-15-2023 Office outpatient visit 25 minutes Pineda Santillan MD Work Phone: [facility] Comment on above: ASCVD (arteriosclero tic cardiovascular disease) (Primary Dx); Essential hypertension; Mixed hyperlipidemia; Congestive heart failure, NYHA class 2 and ACC/AHA stage C (CMS/HCC); History of PTCA Start: 06-10-2023 End: 06-10-2023 ambulatory Ivan Barreto Other [employer] Other Start: 06-10-2023 Telephone encounter Ivan Barreto [facility] Start: 05-17-2023 End: 05-17-2023 ambulatory Ivan Barreto Other [employer] Other Start: 05-17-2023 Telephone encounter Ivan Barreto [facility] Start: 05-15-2023 End: 05-15-2023 ambulatory Ivan Barreto Other [employer] Other Start: 05-15-2023 Telephone encounter Ivan Barreto [facility] Start: 05-14-2023 End: 05-14-2023 ambulatory Ivan Barreto Other [employer] Other Start: 05-14-2023 Telephone encounter Ivan Barreto [facility] Start: 05-12-2023 End: 05-12-2023 ambulatory Ivan Barreto Other [employer] Other Start: 05-12-2023 Telephone encounter Ivan Barreto [facility] Start: 03-23-2023 End: 03-23-2023 ambulatory Ivan Barreto Other [employer] Other Start: 03-23-2023 Telephone encounter Ivan Barreto [facility] Start: 03-19-2023 Rx Renewal [facility] l [facility] Work Phone: Start: 03-16-2023 End: 03-16-2023 ambulatory Ivan Barreto Other [employer] Other Start: 03-16-2023 Office outpatient vi sit 15 minutes Ivan Barreto [facility] Start: 03-12-2023 Chart Update Ivan Nowak Bal l [facility] Work Phone: Start: 03-11-[address] Pineda crawford [facility] Facility:[id number] Start: 02-27-2023 End: 02-27-2023 ambulatory Ivan Barreto Other [employer] Other Start: 02-27-2023 Office outpatient vi sit 15 minutes Ivan Barreto [facility] Start: 02-05-2023 End: 02-05-2023 ambulatory Ivan Barreto Other [employer] Other Start: 02-05-2023 Telephone encounter Ivan SILVERMAN [facility] Start: 02-05-2023 Office outpatient vi sit 25 minutes Ivan She Barreto Work Phone: [facility] 250 DO Work Phone: Start: 01-27-2023 End: 01-27-2023 ambulatory Ivan Barreto Other [employer] Other Start: 01-27-2023 Transitional care evangelina jon srvc 14 day discharge Ivan Barreto [facility] Start: 01-19-2023 End: 01-19-2023 ambulatory Ivan Barreto Other [employer] Other Start: 01-19-2023 Telephone encounter Ivan SILVERMAN [facility] Start: 01-14-2023 End: 01-16-2023 Evaluation and management of inpatient DO Chaitanya Lu Work Phone: [facility] Work Phone: Start: 01-01-2023 End: 01-01-2023 ambulatory Ivan Barreto Other [employer] Other Start: 01-01-2023 Telephone encounter Ivan SILVERMAN [facility] Start: 12-03-2022 Telephone encounter Ivan SILVERMAN [facility] Start: 12-03-2022 End: 12-04-[address] PINEDA SANTILLAN [employer] Other Start: 09-17-2022 End: 09-17-2022 ambulatory Ivan Barreto Other [employer] Other Start: 09-17-2022 Office outpatient vi sit 25 minutes Ivan Barreto [facility] Start: 09-16-2022 End: 09-16-2022 ambulatory Ivan Barreto Other [employer] Other Start: 09-16-2022 Telephone encounter Ivan Barreto [facility] Start: 08-25-2022 End: 08-25-2022 ambulatory Ivan Barreto Other [employer] Other Start: 08-25-2022 Telephone encounter Ivan SILVERMAN [facility] Start: 06-30-2022 Adult health examination Ronnell Barreto Other [employer] Other Start: 06-30-2022 Gynecological examin ation normal Ivan Barreto Other [employer] Other Start: 06-04-2022 Office outpatient vi sit 15 minutes Ivan Barreto Work Phone: [facility] 250 DO Work Phone: Start: 05-21-2022 End: 05-22-[address] EDER LAURENT . Facility:[facility] Start: 2022 End: [address] EDER LAURENT . Facility:[facility] Start: 05-05-2022 End: 05-05-2022 Pre-procedure evaluation check Ivan Barreto Other [employer] [facility] Other Start: 03-11-2017 Ambulatory SULMA BUSBY Facility: [id number] Start: 09-27-2010 End: 09-27-2010 ambulatory Arun Magana Work Phone: Pain Management Comment on above: Patient Education Procedures Date Procedure Procedure Detail Performing Clinician Start: 02-10-2025 Serum immunofixation Be shola Mary Lou DO Work Phone: Comment on above: No monoclonality det ected. Start: 07-11-2025 Urine culture Ivan Ball DO Work Phone: Start: 02-09-2025 CT of head without contrast Ivan Ball DO Work Phone: Start: 02-09-2025 Computed tomography of abdomen and pelvis with contrast Ivan Ball DO Work Phone: Start: 02-09-2025 Plain chest X-ray Ronnell min Ball DO Work Phone: Start: 02-03-2025 Plain chest X-ray Ronnell min Ball DO Work Phone: Start: 01-26-2025 Ecg routine ecg w/le ast 12 lds w/i&r Jamia Ndiaye MD Work Phone: Start: 01-10-2025 Arthrocentesis aspir &/inj major jt/bursa w/o us Celina CAMPBELL Work Phone: Start: 01-10-2025 Radiologic examinati on knee 1/2 views Celina CAMPBELL Work Phone: Start: 12-03-2024 Ecg routine ecg w/le ast 12 lds trcg only w/o i&r Daniela Portillo MILLER SUPERVISOR-CEMETERY VAULT INSTALLER Work Phone: Start: 12-03-2024 Basic metabolic pane l calcium total Nir Min MD Work Phone: Start: 12-02-2024 Ecg routine ecg w/le ast 12 lds trcg only w/o i&r Leeann Tejada MILLER SUPERVISOR-CEMETERY VAULT INSTALLER Work Phone: Start: 12-02-2024 Cardiac catheterizat ion study Daniela Portillo MILLER SUPERVISOR-CEMETERY VAULT INSTALLER Work Phone: Start: 12-02-2024 Coagulation time activated Nir Min MD Work Phone: Start: 12-02-2024 Ecg routine ecg w/le ast 12 lds trcg only w/o i&r Daniela Portillo MILLER SUPERVISOR-CEMETERY VAULT INSTALLER Work Phone: Start: 12-02-2024 Basic metabolic pane l calcium total Nir Min MD Work Phone: Start: 12-01-2024 Ecg routine ecg w/le ast 12 lds trcg only w/o i&r Daniela Portillo MILLER SUPERVISOR-CEMETERY VAULT INSTALLER Work Phone: Start: 12-01-2024 Basic metabolic pane l calcium total Nir Min MD Work Phone: Start: 12-01-2024 Blood count complete automated Valorie Henriquez MILLER SUPERVISOR-CEMETERY VAULT INSTALLER Work Phone: Start: 11-30-2024 Ecg routine ecg w/le ast 12 lds trcg only w/o i&r Nir Min MD Work Phone: Start: 11-30-2024 Assay of troponin quantitative Nir Min MD Work Phone: Start: 11-30-2024 Heparin assay Nir smith MD Work Phone: Start: 11-30-2024 Heparin assay Nir smith MD Work Phone: Start: 11-30-2024 Heparin assay Britton andrew MD Work Phone: Start: 11-30-2024 EXTRA TUBES Nir carrero MD Work Phone: Start: 11-30-2024 SST TOP Nir carrero MD Work Phone: Start: 11-30-2024 Ecg routine ecg w/le ast 12 lds trcg only w/o i&r Daniela Portillo MILLER SUPERVISOR-CEMETERY VAULT INSTALLER Work Phone: Start: 11-30-2024 Comprehensive metabo lic panel Irineo Laughlin MILLER SUPERVISOR-CEMETERY VAULT INSTALLER Work Phone: Start: 11-30-2024 EXTRA TUBES Britton monsalve MD Work Phone: Start: 11-30-2024 SST TOP Britton monsalve MD Work Phone: Start: 11-29-2024 EXTRA TUBES Britton monsalve MD Work Phone: Start: 11-29-2024 Urinalysis microscop ic panel - Urine Qualitative by Automated Irineo Laughlin MILLER SUPERVISOR-CEMETERY VAULT INSTALLER Work Phone: Start: 11-29-2024 URINE SLATER TUBE Britton chow MD Work Phone: Start: 11-29-2024 Urnls dip stick/tabl et reagent auto microscopy Irineo Laughlin MILLER SUPERVISOR-CEMETERY VAULT INSTALLER Work Phone: Start: 11-29-2024 Heparin assay Britton andrew MD Work Phone: Start: 11-29-2024 Ct thorax w/o contra st material Irineo Laughlin MILLER SUPERVISOR-CEMETERY VAULT INSTALLER Work Phone: Start: 11-29-2024 Dup-scan xtr veins complete bilateral study Irineo Laughlin MILLER SUPERVISOR-CEMETERY VAULT INSTALLER Work Phone: Start: 11-29-2024 Duplex scan extracra nial art compl bi study Irineo Laughlin MILLER SUPERVISOR-CEMETERY VAULT INSTALLER Work Phone: Start: 11-29-2024 Heparin assay Britton andrew MD Work Phone: Start: 11-28-2024 CL [facility] Angio Benj raya Ball DO Work Phone: Start: 11-28-2024 Ivan B all DO Work Phone: Start: 11-25-2024 Plain chest X-ray Ronnell min Ball DO Work Phone: Start: 10-26-2024 Ecg routine ecg w/le ast 12 lds w/i&r Jamia Ndiaye MD Work Phone: Start: 05-31-2024 Radex hip unilateral with pelvis 2-3 views Aidan Suazo DO Work Phone: Start: 05-30-2024 Ecg routine ecg w/le ast 12 lds w/i&r Jamia Ndiaye MD Work Phone: Start: 05-10-2024 Injection single/site worker trigger point 1/2 muscles Aidan Suazo DO Work Phone: Start: 04-29-2024 Injection single/site worker trigger point 1/2 muscles Devin Birmignham [employer] Work Phone: Start: 03-01-2024 Cystoscopy Jerson BYRNES Start: 02-24-2024 Urine culture DO Benjam in Graematter Work Phone: Start: 02-11-2024 Fitting of pessary Patr ick STREETER Start: 12-23-2023 Plain chest X-ray DO Be njamin Mary Lou Work Phone: Start: 11-18-2023 DO Benjami n Graematter Work Phone: Start: 11-18-2023 CL Closure Device Placement 0 DO Ivan Graematter Work Phone: Start: 11-18-2023 CL LHC & COR Angio DO B enjamin Mary Lou Work Phone: Start: 11-18-2023 CL Stent 1st Vessel LAD OLE DO Ivan Graematter Work Phone: Start: 11-10-2023 Cv strs tst xers&/or rx cont ecg trcg only Pineda Santillan MD Work Phone: Start: 10-07-2023 History of placement of stent for coronary artery disease History of heart artery stent Yoselin Weir DPM Work Phone: Start: 08-28-2023 History of decompres sabiha of median nerve History of bilateral carpal tunnel release Yoselin Weir DPM Work Phone: Start: 06-15-2023 History of percutane ous transluminal coronary angioplasty History of PTCA Pineda Santillan MD Work Phone: Start: 01-14-2023 CL Closure Device Placement 0 DO Chaitanya Lu Work Phone: Start: 01-14-2023 CL LHC & COR Angio DO A alex Lu Work Phone: Start: 01-14-2023 CL PCI AMI 1st Vesse l CX OLE DO Chaitanya Lu Work Phone: Start: 01-14-2023 CL PTCA 1st Vessel LAD DO Chaitanya Lu Work Phone: Start: 01-14-2023 DO Alexand harish Lu Work Phone: Start: 2022 Screening for malign ant neoplasm of breast Ivan Barreto Other Start: 08-03-2011 Total colonoscopy Ronnell min E Ball Work Phone: Abdominoplasty Ivan E Ba ll Work Phone: Abdominoplasty Antonina Galea Blepharoplasty Ivan E Ba ll Work Phone: Blepharoplasty Antonina Galea Cardiac catheterization Benj raya E Ball Work Phone: Cardiac catheterization Keyla handley Galea Cataract surgery Ivan E Ball Work Phone: Cataract surgery Antonina Gale a Depression screening Benjami n Mary Lou Other History of percutane ous transluminal coronary angioplasty History of PTCA Ivan She Barreto Work Phone: History of percutane ous transluminal coronary angioplasty History of PTCA Pineda Santillan MD Work Phone: History of percutane ous transluminal coronary angioplasty History of PTCA Jamia Ndiaye MD Work Phone: History of percutane ous transluminal coronary angioplasty History of PTCA Jamia Ndiaye MD Work Phone: History of percutane ous transluminal coronary angioplasty History of PTCA Jamia Ndiaye MD Work Phone: History of placement of stent for coronary artery disease History of heart artery stent DO Chaitanya Lu Work Phone: Percutaneous translu charisse coronary angioplasty Ivan Barreto Work Phone: Total replacement of hip Adan Barreto Work Phone: Total replacement of hip Evgeny Cooper Plan of Treatment Date Care Activity Detail Author Start: 12-03-2025 Creatinine measurement Creatinine Level [facility] Start: 12-03-2025 Diabetes mellitus screening Diabetes Screening [facility] Start: 12-03-2025 Potassium measurement Potassium Level [facility] Start: 11-25-2025 Echocardiography Echocardiogram [facility] Start: 11-22-2025 End: 11-22-2025 Patient encounter procedure 11/22/2025 3:20 PM EDT Office Visit [facility] [address] [place] [address] Jamia Ndiaye MD [address] [place] [address] [facility] Start: 09-01-2025 End: 09-01-2025 Patient encounter procedure 09/01/2025 10:50 AM EST Office Visit [facility] [address] [place] [address] Jamia Ndiaye MD [address] [place] [address] [facility] Start: 06-07-2025 End: 06-07-2025 Clinical Support [facility] Start: 05-31-2025 End: 05-31-2025 Patient encounter procedure [facility] Start: 05-29-2025 End: 05-29-2025 Patient encounter procedure [facility] Start: 05-26-2025 Adult BMI Screening Adult BMI Screening [facility] Start: 05-26-2025 Tobacco Screening Tobacco Screening [facility] Start: 05-09-2025 End: 05-09-2025 Patient encounter procedure 05/09/2025 11:00 AM EDT Office Visit [facility] [address] [place] [address] Celina Muñoz PA [address] [facility] [address] [place] [address] [facility] Start: 05-08-2025 End: 05-08-2025 Patient encounter procedure [facility] Comment on above: Arrived Start: 04-07-2025 End: 04-07-2025 Patient encounter procedure 04/07/2025 10:30 AM EDT Office Visit [facility] [address] [facility] [address] [place] [id number] Jamia Ndiaye MD [address] [facility] [place] [address] [facility] Start: 04-03-2025 COVID-19 Vaccine ( season) COVID-19 Vaccine () [facility] Start: 04-03-2025 Influenza vaccination Influenza Vaccine (#1) [facility] Start: 02-10-2025 End: 02-10-2025 [facility] Start: 02-10-2025 Urine culture [facility] Start: 02-09-2025 Physical therapy procedure [facility] Start: 02-09-2025 Referral to neurologist [facility] Start: 02-09-2025 Referral to occupational therapist [facility] Start: 02-09-2025 Hospital admission [facility] Start: 02-09-2025 End: 02-09-2025 [facility] Start: 01-30-2025 End: 01-30-2025 Patient encounter procedure [facility] Comment on above: Arrived Start: 01-25-2025 End: 01-25-2025 Patient encounter procedure 01/25/2025 11:00 AM EDT Office Visit [facility] [address] [place] [id number] Joradn Wisdom DO [address] [place] [address] [facility] Start: 01-10-2025 End: 01-10-2025 Patient encounter procedure 01/10/2025 11:30 AM EDT Office Visit [facility] [address] [facility] [place] [phone] Celina Muñoz, PA [address] [place] [address] Acute pain of right knee (Primary Dx) [facility] Comment on above: Acute pain of right knee (Primary Dx) Start: 01-06-2025 Echocardiography Echocardiogram [facility] Start: 12-09-2024 End: 12-09-2024 Patient encounter procedure 12/09/2024 11:30 AM EDT Office Visit [facility] [address] [place] [address] Jamia Ndiaye MD [address] [address] [place] [address] [facility] Start: 11-29-2024 [facility] Start: 11-28-2024 [facility] Start: 11-26-2024 [facility] Start: 11-26-2024 [facility] Start: 11-25-2024 [facility] Start: 11-25-2024 End: 11-25-2024 [facility] Start: 11-25-2024 Hospital admission [facility] Start: 11-25-2024 Referral to assorter [facility] Start: 11-25-2024 Fluoroscopy of Left Heart using Low Osmolar Contrast Fluoroscopy of Left Heart using Low Osmolar Contrast [facility] Start: 11-25-2024 Fluoroscopy of Multiple Coronary Arteries using Low Osmolar Contrast Fluoroscopy of Multiple Coronary Arteries using Low Osmolar Contrast [facility] Start: 11-25-2024 Measurement of Cardiac Sampling and Pressure, Left Heart, Percutaneous Approach Measurement of Cardiac Sampling and Pressure, Left Heart, Percutaneous Approach [facility] Start: 10-26-2024 End: 10-26-2025 Alanine aminotransferase [Enzymatic activity/volume] in Serum or Plasma by With P-5'-P Alanine Aminotransferase Lab Routine ASCVD (arteriosclerotic cardiovascular disease) Mixed hyperlipidemia Expected: 10/26/2024 (Approximate), Expires: 10/26/2025 [facility] Work Phone: Comment on above: Expected: 10/26/2024 (Approximate), Expi res: 10/26/2025 Start: 10-26-2024 End: 10-26-2025 Aspartate aminotransferase [Enzymatic activity/volume] in Serum or Plasma by With P-5'-P Aspartate Aminotransferase Lab Routine ASCVD (arteriosclerotic cardiovascular disease) Mixed hyperlipidemia Expected: 10/26/2024 (Approximate), Expires: 10/26/2025 [facility] Work Phone: Comment on above: Expected: 10/26/2024 (Approximate), Expi res: 10/26/2025 Start: 10-26-2024 End: 10-26-2025 Basic metabolic 2000 panel - Serum or Plasma Basic Metabolic Panel Lab Routine ASCVD (arteriosclerotic cardiovascular disease) Congestive heart failure, NYHA class 2 and ACC/AHA stage C Expected: 10/26/2024 (Approximate), Expires: 10/26/2025 [facility] Work Phone: Comment on above: Expected: 10/26/2024 (Approximate), Expi res: 10/26/2025 Start: 10-26-2024 End: 10-26-2025 Lipid 1996 panel - Serum or Plasma Lipid Panel Lab Routine ASCVD (arteriosclerotic cardiovascular disease) Mixed hyperlipidemia Expected: 10/26/2024 (Approximate), Expires: 10/26/2025 [facility] Work Phone: Comment on above: Expected: 10/26/2024 (Approximate), Expi res: 10/26/2025 Start: 10-10-2024 End: 10-10-2024 Patient encounter procedure [facility] Start: 09-28-2024 End: 09-28-2024 Patient encounter procedure 09/28/2024 10:15 AM EST Office Visit [facility] [address] [place] [id number] Jordan Wisdom, DO [address] [place] [address] [facility] Start: 09-07-2024 End: 09-07-2024 Clinical Support [facility] Comment on above: Arrived Start: 06-27-2024 End: 06-27-2024 Patient encounter procedure 06/27/2024 10:45 AM EST Procedure Visit [facility] [address] [place] [phone] Yoselin Weir, DPM [address] [place], [place] [id number] [facility] Start: 06-24-2024 End: 06-24-2024 Patient encounter procedure 06/24/2024 9:20 AM EST Office Visit [facility] [facility] [place] [address] Ramone Perkins MD [address] [facility] [place] [address] [facility] Start: 05-31-2024 End: 05-31-2024 Patient encounter procedure [facility] Comment on above: Spondylolisthesis of lumbar region Status post right hi p replacement; Primary osteoarthritis of right hip Start: 05-25-2024 End: 05-25-2024 Patient encounter procedure [facility] Comment on above: Pessary maintenance; Cystocele with rectocele; Urethral caruncle; Vaginal atrophy Start: 05-24-2024 End: 05-24-2024 Professional / ancillary services management [facility] Start: 05-21-2024 Screening for osteoporosis Bone Density Scan [facility] Start: 05-19-2024 End: 05-19-2024 Patient encounter procedure 05/19/2024 1:45 PM EDT Office Visit [facility] [address] [place] [address] Aidan Suazo, DO [address] [facility] [address] [place] [address] [facility] Start: 05-17-2024 End: 05-17-2024 Professional / ancillary services management 05/17/2024 10:30 AM EDT Ancillary Procedure [facility] [address] [facility] [address] [place] [address] [facility] Start: 05-10-2024 End: 05-10-2025 MR Lumbar spine WO contrast MR lumbar spine wo contrast Imaging Routine Lumbar spine pain Expected: 05/10/2024 (Approximate), Expires: 05/10/2025 [facility] Work Phone: Comment on above: Expected: 05/10/2024 (Approximate), Expi res: 05/10/2025 Start: 05-10-2024 End: 05-10-2024 Patient encounter procedure [facility] Comment on above: Arrived Start: 04-29-2024 End: 04-29-2024 Patient encounter procedure 04/29/2024 8:15 AM EDT Office Visit [facility] [address] [place] [address] Devin Birmingham, [employer] [address] [place] [address] Arrived [facility] Comment on above: Arrived Start: 04-27-2024 End: 04-27-2024 Clinical Support 04/27/2024 9:30 AM EDT Clinical Support [facility] [address] [facility] [address] [place] [phone] Lisa Davenport, [facility] [address] [place] [address] [facility] Start: 04-03-2024 COVID-19 Vaccine () COVID-19 Vaccine () [facility] Start: 04-03-2024 COVID-19 Vaccine ( season) COVID-19 Vaccine () [facility] Start: 04-03-2024 COVID-19 Vaccine ( season) COVID-19 Vaccine () [facility] Start: 04-03-2024 Influenza vaccination [facility] Start: 01-16-2024 Echocardiography Echocardiogram [facility] Start: 01-12-2024 End: 01-12-2024 Patient encounter procedure 01/12/2024 9:40 AM EDT Office Visit [address] [address] Pineda Santillan MD [address] [facility] [address], [address] [address] [facility] Start: 12-23-2023 [facility] Start: 11-30-2023 End: 11-29-2024 Urinalysis complete panel - Urine Urinalysis with Reflex Microscopic Lab Routine Dysuria Weakness Expected: 11/30/2023 (Approximate), Expires: 11/29/2024 [facility] Service Area Work Phone: Comment on above: Expected: 11/30/2023 (Approximate), Expi res: 11/29/2024 Start: 11-19-2023 Hospital admission [facility] Start: 11-18-2023 [facility] Start: 11-16-2023 End: 11-16-2023 Patient encounter procedure 11/16/2023 10:20 AM EDT Office Visit [place] [id number] [facility] [address] [place] [phone] Pineda Santillan MD [address] [facility], [facility] [address] [place] [address] [facility] Start: 06-10-2023 FUV, Provider: Pineda Santillan, Status: Garfield, Time: 1:40 PM FUV, Provider: Pineda Santillan, Status: Pen, Time: 1:40 PM -[facility] [address] DO Work Phone: Start: 05-21-2023 Screening for osteoporosis Bone Density Scan [facility] Start: 04-03-2023 COVID-19 Vaccine ( season) COVID-19 Vaccine ( season) [facility] Start: 03-09-2023 STRESS LIZZIE, Provider: [facility] NUCLEAR 01,[id number], Status: Pen, Time: 2:30 PM STRESS LIZZIE, Provider: [facility] NUCLEAR 01,[id number], Status: Pen, Time: 2:30 PM -[facility] [address] DO Work Phone: Start: 01-19-2023 Blood chemistry [facility] Start: 01-19-2023 [facility] Start: 01-18-2023 Blood chemistry [facility] Start: 01-18-2023 [facility] Start: 01-17-2023 Blood chemistry [facility] Start: 01-17-2023 [facility] Start: 01-16-2023 Blood chemistry [facility] Start: 01-16-2023 End: 01-16-2023 [facility] Start: 01-15-2023 Blood chemistry [facility] Start: 01-15-2023 [facility] Start: 01-14-2023 [facility] Start: 01-14-2023 Consultation [facility] Start: 01-14-2023 Hospital admission [facility] Start: 01-14-2023 Referral to cardiac rehabilitation program [facility] Start: 01-14-2023 End: 01-14-2023 [facility] Start: 07-01-2022 COVID-19 Vaccine (4 - Pfizer series) COVID-19 Vaccine (4 - Pfizer series) [facility] Start: 04-03-2021 Influenza vaccination INFLUENZA (Season Ended) [facility] Start: 2014 RSV High Risk: (Elderly (60+) or Population) (1 - 1-dose 75+ series) RSV High Risk: (Elderly (60+) or Population) (1 - 1-dose 75+ series) [facility] Start: 03-26-2014 DIABETES SCREEN DIABETES SCREEN [facility] Start: 2004 ADVANCE DIRECTIVE DISCUSSION ADVANCE DIRECTIVE DISCUSSION [facility] Start: 2004 BONE DENSITY BONE DENSITY [facility] Start: 2004 Fall Risk Screening Fall Risk Screening [facility] Start: 2004 PNEUMOVAX AGE 65 AND OVER WITH 5YR LOOKBACK (#1) PNEUMOVAX AGE 65 AND OVER WITH 5YR LOOKBACK (#1) [facility] Start: 1999 RSV patients and/or patients aged 60+ years (1 - 1-dose 60+ series) RSV patients and/or patients aged 60+ years (1 - 1-dose 60+ series) [facility] Start: 1989 SHINGRIX VACCINE (1 of 2) SHINGRIX VACCINE (1 of 2) [facility] Start: 1961 DTaP/Tdap/Td Vaccines (1 - Tdap) DTaP/Tdap/Td Vaccines (1 - Tdap) [facility] Start: 1958 DTaP,Tdap and Td Vaccines (1 - Tdap) DTaP,Tdap and Td Vaccines (1 - Tdap) [facility] Start: 1958 Urine microalbumin profile DTAP,TDAP,TD (1 - Tdap) [facility] Start: 1957 Diabetes mellitus screening Diabetes Screening [facility] Start: 1951 COVID-19 VACCINE (1) COVID-19 VACCINE (1) [facility] Start: 1951 Depression Screening Depression Screening [facility] Start: 1939 Creatinine measurement Creatinine Level [facility] Start: 1939 Lipid panel Lipid Panel [facility] Start: 1939 Medicare Annual Wellness (AWV) Medicare Annual Wellness (AWV) [facility] Start: 1939 Medicare Annual Wellness Visit [facility] Start: 1939 Potassium measurement Potassium Level [facility] Start: 1939 Skin Cancer Screening Skin Cancer Screening [facility] Albumin [Mass/volume ] in Serum or Plasma [facility] Albumin/Globulin ratio [facility] Anion gap measurement [facility] Anion gap measurement [facility] Basophils [#/volume] in Blood by Automated count [facility] Basophils [#/volume] in Blood by Automated count [facility] Basophils/100 leukoc ytes in Blood by Automated count [facility] Basophils/100 leukoc ytes in Blood by Automated count [facility] CBC panel - Blood by Automated count CBC Lab Routine Morning draw (Lab) until discontinued starting 11/30/2024, 3 completed [facility] Work Phone: Comment on above: Morning draw (Lab) until discontinued st arting 11/30/2024, 3 completed Comprehensive metabo lic 2000 panel - Serum or Plasma [facility] Comprehensive metabo lic 2000 panel - Serum or Plasma [facility] End: 12-02-2024 Determination of physical activity tolerance Cardiac rehab evaluation Card Rehab Routine Once for 1 Occurrences starting 12/02/2024 until 12/02/2024 [facility] Work Phone: Comment on above: Once for 1 Occurrences starting 12/03/19 until 12/02/2024 DXA Skeletal system. axial Views for bone density [facility] ECG 12 Lead ECG 12 Lead ECG Routine 11/30/2024 9:01 AM T [facility] Work Phone: ECG 12 lead ECG 12 lead ECG Routine 11/30/2024 6:43 PM EDT [facility] Work Phone: ECG 12 Lead ECG 12 Lead ECG Routine 12/01/2024 6:53 AM T [facility] Work Phone: ECG 12 Lead ECG 12 Lead ECG Routine 12/02/2024 6:18 AM T [facility] Work Phone: ECG 12 Lead ECG 12 Lead ECG Routine 12/03/2024 7:25 AM [facility] Work Phone: Electrocardiogram 12 Lead Electr ocardiogram 12 Lead ECG STAT 12/02/2024 1:57 PM EDT [facility] Work Phone: Electrocardiogram, 12-lead PRN ACS symptoms Electrocardiogram, 12-lead PRN ACS symptoms ECG Routine As needed until discontinued starting 11/29/2024 [facility] Service Area Work Phone: Comment on above: As needed until discontinued starting Electrophoresis: [id number] [facility] Electrophoresis: [id number] [facility] Electrophoresis: beta-globulin [facility] Electrophoresis: luis alfredo ma globulin [facility] Eosinophils/100 leukocytes in Blood by Automated count [facility] Eosinophils/100 leukocytes in Blood by Automated count [facility] Erythrocyte distribu tion width [Ratio] by Automated count [facility] Erythrocyte distribu tion width [Ratio] by Automated count [facility] Erythrocytes [#/volu me] in Blood [facility] Erythrocytes [#/volu me] in Blood [facility] Globulin [Mass/volum e] in Serum [facility] End: 12-02-2024 Glucose [Mass/volume] in Serum or Plasma POCT Glucose Point of Care Testing - Docked Device Routine Once (Lab) for 1 Occurrences starting 12/02/2024 until 12/02/2024 [facility] Work Phone: Comment on above: Once (Lab) for 1 Occurrences starting until 12/02/2024 Glucose measurement estimated from glycated hemoglobin [facility] Hematocrit [Volume Fraction] of Blood [facility] Hematocrit [Volume Fraction] of [facility] Hemoglobin [Mass/vol ume] in Blood [facility] Hemoglobin [Mass/vol ume] in Blood [facility] Hemoglobin A1c/Hemoglobin.total in Blood [facility] IgA [Mass/volume] in Serum or Plasma [facility] IgG [Mass/volume] in Serum or Plasma [facility] IgM [Mass/volume] in Serum or Plasma [facility] Leukocytes [#/volume ] corrected for nucleated erythrocytes in Blood by Automated coun [facility] Leukocytes [#/volume ] corrected for nucleated erythrocytes in Blood by Automated coun [facility] Leukocytes [#/volume ] in Blood [facility] Leukocytes [#/volume ] in Blood [facility] Lymphocytes [#/volum e] in Blood by Automated count [facility] Lymphocytes [#/volum e] in Blood by Automated count [facility] Lymphocytes/100 leukocytes in Blood by Automated count [facility] Lymphocytes/100 leukocytes in Blood by Automated count [facility] MCH [Entitic mass] b y Automated count [facility] MCH [Entitic mass] b y Automated count [facility] MCHC [Mass/volume] b y Automated count [facility] MCHC [Mass/volume] b y Automated count [facility] MCV [Entitic volume] by Automated count [facility] MCV [Entitic volume] by Automated count [facility] MG Breast - bilatera l Screening [facility] Monocytes [#/volume] in Blood by Automated count [facility] Monocytes [#/volume] in Blood by Automated count [facility] Monocytes/100 leukoc ytes in Blood by Automated count [facility] Monocytes/100 leukoc ytes in Blood by Automated count [facility] Neutrophils [#/volum e] in Blood by Automated count [facility] Neutrophils [#/volum e] in Blood by Automated count [facility] Neutrophils/100 leukocytes in Blood by Automated count [facility] Neutrophils/100 leukocytes in Blood by Automated count [facility] Nucleated erythrocyt es [Presence] in Blood by Automated count [facility] Nucleated erythrocyt es [Presence] in Blood by Automated count [facility] Patient Education [facility] Work Phone: Patient referral [facility] Work Phone: Platelet mean volume [Entitic volume] in Blood by Automated count [facility] Platelet mean volume [Entitic volume] in Blood by Automated count [facility] Platelets [#/volume] in Blood [facility] Platelets [#/volume] in Blood [facility] Protein [Mass/volume ] in Serum or Plasma [facility] Serum immunofixation [facility] XR Radius and Ulna - right 2 Views [facility] XR Wrist - right GE [facility] Immunizations Immunization Date Immunization Notes Care Provider Marisel woosd 04-20-2025 influenza virus vaccine, unspecified formulation Yoselin Weir DPM Work Phone: [facility] 07-01-2024 influenza, high dose seasonal, preservative-free [facility] 07-01-2024 influenza virus vaccine, unspecified formulation Lisa Lopezill [facility] Work Phone: [facility] 05-06-2023 influenza virus vaccine, unspecified formulation [facility] 05-06-2023 Influenza, High-dose Seasonal, Quadrivalent, Preservative Free Yoselin Weir DPM Work Phone: [facility] 05-06-2023 influenza, high dose seasonal, preservative-free Ivan Barreto Other [facility] Other 05-06-2022 Fluzone High-Dose Quadrivalent 0.7 ML Intramuscular Suspension Prefilled Syringe Ivan Barreto Work Phone: [facility] 250 DO Work Phone: 05-06-2022 influenza virus vaccine, unspecified formulation Jerson STREETER [facility] 05-06-2022 Pfizer COVID-19 Vac Bivalent 30 MCG/0.3ML Intramuscular Suspension Ivan Barreto Work Phone: [facility] 11-22-2021 Comirnaty 30 MCG/0.3 ML Intramuscular Suspension Ivan Barreto Work Phone: [facility] 11-22-2021 SARS-CoV-2 mRNA (miuurdltdod-sqal-tyxyc se) vaccine Jerson [employer]RE[facility] 05-06-2021 Pfizer-BioNTech COVID-19 Vacc 30 MCG/0.3ML Intramuscular Suspension Ivan Barreto Work Phone: [facility] 04-24-2021 Fluzone High-Dose Quadrivalent 0.7 ML Intramuscular Suspension Prefilled Syringe Ivan Barreto Work Phone: [place] [address] DO Work Phone: 04-24-2021 influenza virus vaccine, unspecified formulation Jersonelisabeth STREETER [facility] 09-23-2020 Pfizer-BioNTech COVID-19 Vacc 30 MCG/0.3ML Intramuscular Suspension Ivan Barreto Work Phone: [facility] Comment on above: Result Comment: 2023: [id number] 08-24-2020 Pfizer-BioNTech COVID-19 Vacc 30 MCG/0.3ML Intramuscular Suspension Ivan Barreto Work Phone: [facility] Comment on above: Result Comment: 2023: [id number] 05-04-2020 influenza virus vaccine, unspecified formulation Jerson [employer]RE[address] [facility] 05-04-2020 influenza, high dose seasonal, preservative-free Ivan Barreto Work Phone: [place] [address] DO Work Phone: 04-03-2020 influenza virus vaccine, unspecified formulation Jerson [employer] [facility] 04-03-2020 influenza, high dose seasonal, preservative-free Ivan Barreto Work Phone: [place] [address] DO Work Phone: 07-01-2019 zoster vaccine recombinant Yoselin Weir DPM Work Phone: [facility] 04-29-2019 influenza virus vaccine, unspecified formulation Jerson [employer] [facility] 04-29-2019 influenza, high dose seasonal, preservative-free Ivan E Ball Work Phone: [place] [address] DO Work Phone: 03-28-2019 zoster vaccine recombinant Ivan E Ball Work Phone: [facility] 04-28-2018 influenza virus vaccine, unspecified formulation Jerson [employer] [facility] 04-28-2018 influenza, injectabl e, quadrivalent, preservative free Ivan E Ball Work Phone: [place] [address] DO Work Phone: 05-04-2017 influenza virus vaccine, unspecified formulation Jerson STRE[facility] 05-04-2017 influenza, injectabl e, quadrivalent, preservative free Ivan E Ball Work Phone: [place] [address] DO Work Phone: 05-06-2016 pneumococcal conjuga te vaccine, 13 valent Yoselin Weir DPM Work Phone: [facility] 04-15-2011 zoster vaccine, live Benjami n E Ball Work Phone: [facility] 08-03-2010 pneumococcal polysaccharide vaccine, 23 valent Ivan E Ball Work Phone: [facility] 08-03-2004 pneumococcal polysaccharide vaccine, 23 valent Ivan E Ball Work Phone: [facility] Payers Date Payer Category Payer Self-pay [id number] 2024 Unknown [id number] 2022 Medicare HMO [facility] [id number] 2021 Medicare (Managed Care) [id number]. [id number] 2021 Unknown 2020 Unknown [id number] 2020 Medicare [id number] 2018 Private Health Insurance [facility] RMN [id number] 2016 Unknown [id number] 2010 Unknown [employer] [id number] 2010-2013 Indemnity [id number] 2006 Medicare MEDICARE [id number] 2006 Medicare [id number] 2004 Medicare MEDICARE MEDICAR E B [id number] 2004-Present [place] Medicare [id number] 2004 Medicare [id number] 1959 Medicare [id number] 1939 Unknown [id number] 1939 Unknown [id number] 593 1939 Unknown [id number] 593 1939 Unknown [id number] 1939 Unknown [id number] 1939 Unknown [id number] 1939 Unknown [id number] 2.16.840.1.208651.3.579.2. 1286 1939 Unknown [id number] 2.16.840.1.346565.3.579.2. 1286 1939 Unknown [id number] 2.16.840.1.073354.3.579.2. 1286 1939 Unknown [id number] 2.16.840.1.951901.3.579.2. 1286 1939 Unknown [id number] 2.16.840.1.406916.3.579.2. 1286 1939 Unknown [id number] 2.16.840.1.992612.3.579.2. 1286 1939 Unknown [id number] 2.16.840.1.720904.3.579.2. 1286 1939 Unknown [id number] 2.16.840.1.067604.3.579.2. 1286 1939 Unknown [id number] 2.16.840.1.808079.3.579.2. 1286 1939 Unknown [id number] 2.16.840.1.986606.3.579.2. 1286 1939 Unknown [id number] 2.16.840.1.308168.3.579.2. 1286 1939 Unknown [id number] 2.16.840.1.790347.3.579.2. 1286 1939 Unknown [id number] 2.16.840.1.718759.3.579.2. 1245 1939 Unknown [id number] 2.16.840.1.440076.3.579.2. 1246 1939 Unknown [id number] 2.16.840.1.871100.3.579.2. 727 1939 Unknown [id number] 2.16.840.1.816576.3.579.2. 727 1939 Unknown [id number] 2.16.840.1.925621.3.579.2. 727 1939 Unknown [id number] 2.16.840.1.693225.3.579.2. 727 1939 Unknown [id number] 2.16.840.1.393199.3.579.2. 727 1939 Unknown [id number] 2.16.840.1.966751.3.579.2. 727 1939 Unknown [id number] 2.16.840.1.771816.3.579.2. 1244 1939 Unknown [id number] 2.16.840.1.912582.3.579.2. 1244 1939 Unknown [id number] 2.16.840.1.562148.3.579.2. 1244 1939 Unknown [id number] 2.16.840.1.225085.3.579.2. 1244 1939 Unknown [id number] 2.16.840.1.808542.3.579.2. 1244 1939 Unknown [id number] 2.16.840.1.034186.3.579.2. 1259 1939 Unknown [id number] 2.16.840.1.735667.3.579.2. 1259 1939 Unknown [id number] 2.16.840.1.158064.3.579.2. 125 1939 Unknown [id number] 2.16.840.1.038873.3.579.2. 1259 1939 Unknown [id number] 2.16.840.1.062115.3.579.2. 1259 1939 Unknown [id number] 2.16.840.1.017131.3.579.2. 1259 1939 Unknown [id number] 2.16.840.1.033906.3.579.2. 1259 1939 Unknown [id number] 2.16.840.1.890522.3.579.2. 1259 1939 Unknown [id number] 2.16.840.1.419412.3.579.2. 1259 1939 Unknown [id number] 2.16.840.1.447894.3.579.2. 125 1939 Unknown [id number] 2.16.840.1.912340.3.579.2. 125 1939 Unknown [id number] 2.16.840.1.606000.3.579.2. 1259 1939 Unknown [id number] 2.16.840.1.474146.3.579.2. 1259 Medicare Medicare [id number] Private Health Insurance [facility] [id number] Unknown [id number] 2.16.840.1.441126.3.579.2. 531 Unknown [id number] 2.16.840.1.469157.3.579.2. 531 Unknown [id number] 2.16.840.1.622453.3.579.2. 531 Social History Date Type Detail Facility Start: 09-27-2010 End: 02-10-2023 Tobacco smoking status DCIS Never smoker [facility] Start: 09-27-2010 End: 05-08-2025 Alcohol intake Current drinker of alcohol (finding) [facility] Start: 1940 Sex Assigned At Not on file [facility] Start: 06-15-2023 End: 02-11-2024 Consumes alcohol occasionally Consumes alcohol occasionally [facility] Comment on above: coffee 1-2 cups; Start: 06-15-2023 End: 02-11-2024 Sex Assigned At [facility] Start: 1940 Sex Assigned At Female F [facility] Start: 02-10-2023 End: 06-15-2023 Tobacco use and exposure Smokeless tobacco non-user [facility] Work Phone: Start: 06-15-2023 Alcohol intake Lifetime non-d jeramie (finding) [facility] Work Phone: Start: 06-05-2023 End: 06-15-2023 Exposure to SARS-CoV-2 (event) Unable to assess [facility] Start: 10-31-2023 End: 12-09-2024 Exposure to SARS-CoV-2 (event) Not sure [facility] Start: 02-17-2019 End: 11-30-2023 Alcohol Comment social [facility] Work Phone: Start: 06-27-2022 Tobacco smoking status Never [facility] [place] How often to you hav e a [...] cups per day [facility] Start: 03-08-2015 End: 12-12-2024 [facility]finding[facility] Start: 11-28-2024 End: 02-10-2025 SDOH Follow up SDOH Follow up [facility] Work Phone: Has the [employer], or water [employer] threatened to shut off services in your home in past 12Mo No [facility] How often to you hav e a drink containing alcohol? Never [facility] Work Phone: (I/We) worried harsha moreira (my/our) food would run out before (I/we) got money to buy more. Never true [facility] Work Phone: Medical Equipment Procedure Code Equipment Code Equipment Origin al Text Equipment Identifier Dates Ins Actb 36mm 0d E X3 Trdnt - [id number] Start: 03-25-2011 Head Fem -5mm 36 mm Hip Cocr - [id number] Start: 03-25-2011 Shell Actb 52mm T/H Pros - [id number] Start: 03-25-2011 Stem Fem Acld Tm zf 4.5 Hip - [id number] Start: 03-25-2011 CL STENT ANANDA FRONTIER 2.25 X 22 FDA Start: 01-14-2023 Femoral artery closure plug/patch, synthetic polymer ()[id number] FDA Start: 01-14-2023 CL STENT ANANDA FRONTIER 2.25 X 22 FDA Start: 01-14-2023 CL STENT ANANDA FRONTIER 2.25 X 22 FDA Start: 01-14-2023 CL STENT ANANDA FRONTIER 2.25 X 22 FDA Start: 01-14-2023 CL STENT ANANDA FRONTIER 2.5 X 15 FDA Start: 11-18-2023 Femoral artery closure plug/patch, synthetic polymer ()[id number] FDA Start: 11-18-2023 CL STENT ANANDA FRONTIER 2.25 X 22 FDA Start: 01-14-2023 CL STENT ANANDA FRONTIER 2.5 X 15 FDA Start: 11-18-2023 CL STENT ANANDA FRONTIER 2.25 X 22 FDA Start: 01-14-2023 CL STENT ANANDA FRONTIER 2.5 X 15 FDA Start: 11-18-2023 CL STENT ANANDA FRONTIER 2.25 X 22 FDA Start: 01-14-2023 CL STENT ANANDA FRONTIER 2.5 X 15 FDA Start: 11-18-2023 CL STENT ANANDA FRONTIER 2.25 X 22 FDA Start: 01-14-2023 CL STENT ANANDA FRONTIER 2.5 X 15 FDA Start: 11-18-2023 CL STENT ANANDA FRONTIER 2.25 X 22 FDA Start: 01-14-2023 CL STENT ANANDA FRONTIER 2.5 X 15 FDA Start: 11-18-2023 CL STENT ANANDA FRONTIER 2.25 X 22 FDA Start: 01-14-2023 CL STENT ANANDA FRONTIER 2.5 X 15 FDA Start: 11-18-2023 CL STENT ANANDA FRONTIER 2.25 X 22 FDA Start: 01-14-2023 CL STENT ANANDA FRONTIER 2.5 X 15 FDA Start: 11-18-2023 CL STENT ANANDA FRONTIER 2.25 X 22 FDA Start: 01-14-2023 CL STENT ANANDA FRONTIER 2.5 X 15 FDA Start: 11-18-2023 Shell Actb 56mm Hip 4 Hl Clr Cd [place] G7 F Hmsphr - [id number] - [id number] Start: 06-05-2021 Liner Actb 36mm F Ntrl Arcomxl G7 Hip - [id number] - [id number] [id number] FDA Start: 06-05-2021 Stem Fem 5 Std Avenir Cmplt Hip Colr Strl Lf - [id number] - [id number] FDA Start: 06-05-2021 Head Fem 36mm +3 .5mm Vrsy Cocr Hip Rpl 121114 - [id number] - [id number] +[id number] FDA Start: 06-05-2021 Screw Bn 30mm 6. [address] Actb Rory Trlg Strl Rpl [id number] + [id number] + [id number] - [id number] - [id number] +[id number], [id number] FDA Start: 06-05-2021 Screw Bn 30mm 6. [address] Actb Rory Trlg Strl Rpl [id number] + [id number] + [id number] - [id number] - [id number] +[id number] FDA Start: 06-05-2021 Screw Bn 30mm 6. [address] Actb Rory Trlg Strl Rpl [id number] + [id number] + [id number] - [id number] - [id number] +[id number], [id number] FDA Start: 06-05-2021 CL STENT ANANDA FRONTIER 2.25 X 22 FDA Start: 01-14-2023 CL STENT ANANDA FRONTIER 2.5 X 15 FDA Start: 11-18-2023 CL STENT ANANDA FRONTIER 2.25 X 22 FDA Start: 01-14-2023 CL STENT ANANDA FRONTIER 2.5 X 15 FDA Start: 11-18-2023 CL STENT ANANDA FRONTIER 2.25 X 22 FDA Start: 01-14-2023 CL STENT ANANDA FRONTIER 2.5 X 15 FDA Start: 11-18-2023 CL STENT ANANDA FRONTIER 2.25 X 22 FDA Start: 01-14-2023 CL STENT ANANDA FRONTIER 2.5 X 15 FDA Start: 11-18-2023 CL STENT ANANDA FRONTIER 2.25 X 22 FDA Start: 01-14-2023 CL STENT ANANDA FRONTIER 2.5 X 15 FDA Start: 11-18-2023 Stent, Ananda Fron tier Ole, 2.50 X 15rx - [id number] Start: 12-02-2024 CL STENT ANANDA FRONTIER 2.25 X 22 FDA Start: 01-14-2023 CL STENT ANANDA FRONTIER 2.5 X 15 FDA Start: 11-18-2023 CL STENT ANANDA FRONTIER 2.25 X 22 FDA Start: 01-14-2023 CL STENT ANANDA FRONTIER 2.5 X 15 FDA Start: 11-18-2023 CL STENT ANANDA FRONTIER 2.25 X 22 FDA Start: 01-14-2023 CL STENT ANANDA FRONTIER 2.5 X 15 FDA Start: 11-18-2023 CL STENT ANANDA FRONTIER 2.25 X 22 FDA Start: 01-14-2023 CL STENT ANANDA FRONTIER 2.5 X 15 FDA Start: 11-18-2023 CL STENT ANANDA FRONTIER 2.25 X 22 FDA Start: 01-14-2023 CL STENT ANANDA FRONTIER 2.5 X 15 FDA Start: 11-18-2023 CL STENT ANANDA FRONTIER 2.25 X 22 FDA Start: 01-14-2023 CL STENT ANANDA FRONTIER 2.5 X 15 FDA Start: 11-18-2023 CL STENT ANANDA FRONTIER 2.25 X 22 FDA Start: 01-14-2023 CL STENT ANANDA FRONTIER 2.5 X 15 FDA Start: 11-18-2023 Goals Date Patient Goal Desired Activity /State Personal health goal Comment on above: Formatting of this n ote might be different from the original. Evaluation of progress towards goal: Home with [facility]. 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 - recent [C-SSRS] [facility] Work Phone: 11-29-2024 Functional status Patient at [facility] Work Phone: 11-25-2024 Functional status Patient at [facility] Work Phone: 03-01-2024 Functional Status N/A [facility] 02-08-2024 Functional Status N/A [facility] 11-19-2023 Functional status Patient at [facility] Work Phone: 01-16-2023 Functional status Patient at [facility] Work Phone: 01-14-2023 Functional status Patient at [facility] Work Phone: [facility] Work Phone: Mental Status Date Assessment Result Facility 02-10-2025 Cognitive function Cognitive Sta tus Patient at Baseline [facility] Work Phone: 11-29-2024 Cognitive function Cognitive Sta tus Patient at [facility] Work Phone: 11-25-2024 Cognitive function Cognitive Sta tus Patient at [facility] Work Phone: 11-19-2023 Cognitive function Cognitive Sta tus Patient at [facility] Work Phone: 01-16-2023 Cognitive function Cognitive Sta tus Patient at [facility] Work Phone: 01-14-2023 Cognitive function Cognitive Sta tus Patient at [facility] Work Phone: Clinical Notes 11-02-1999 to 05-08-2025 Yoselin Weir, RODOLFO - 05/08/2025 1:00 PM EDTAssessment & Plan Note - Sulma Busby, [facility] - 04/12/2025 1:55 PM EDTAssessment & Plan Note - Sulma Busby, [facility] - 04/12/2025 1:55 PM EDT Note Date & Type Note Facility 05-08-2025 History of Present illness Narrative Images from [...] needed for chest pain, Disp: , Rfl: pantoprazole [...] Management MOHS SURGERY 1998 OTHER SURGICAL HISTORY JAKER- Edwards OTHER SURGICAL HISTORY 11/2017 Right SI joint injectiin/Felter OTHER SURGICAL HISTORY 06/2018 Aortigram no hemodynamically significant stenosis OTHER SURGICAL HISTORY 07/2019 Bilateral ischeal bursa injection OTHER SURGICAL HISTORY 01/02/2020 Bursitis Injection OTHER SURGICAL HISTORY 05/2020 bilateral ischeal bursa injection/Aragon OTHER SURGICAL HISTORY 07/2020 right intrarticular hip injection/Aragon OTHER SURGICAL HISTORY 11/2020 right intrarticular hip injection OK BREAST REDUCTION 2000 TRIGGER FINGER RELEASE 03/02/2019 RT IF, MF, [...] or corrected. Thank you for your understanding. Yoselin Weir DPM documented in this encounter [facility] 04-12-2025 Evaluation + Plan note Associated Problem(s): Congestive heart failure, NYHA class 2 and ACC/AHA stage C IC HF borderline EF 50-55% November 2024 (January 2023 TTE EF 40-45% & December 2023 cath EF 40%) FC II GDMT Coreg Of cozaar due to hyponatremia [facility] Work Phone: 04-12-2025 Miscellaneous Notes Associated Problem(s): Congestive heart failure, NYHA class 2 and ACC/AHA stage C IC HF borderline EF 50-55% November 2024 (January 2023 TTE EF 40-45% & December 2023 cath EF 40%) FC II GDMT Coreg Of cozaar due to hyponatremia Associated Problem(s): Mild aortic stenosis November 2024 TTE Mild aortic stenosis Associated Problem(s): Mixed hyperlipidemia High intensity statin Reports recent labs at [facility], will obtain Associated Problem(s): Essential hypertension optimal in office Prior dose of hydrochlorothiazide and losartan were discontinued due to hyponatremia Associated Problem(s): Two-vessel coronary artery disease November 2024 NSTEMI at [facility] December [address] [facility] with Dr. Lee Mcknight/Eloina PCI/Ananda 2.5 x 15mm pMarg patent stent RCA mild November 18, 2023 cardiac cath following abnormal outpatient perfusion study Ostial/proximal LAD PCI/[place] 2.5 x 15 mm due to ISR Proximal circumflex with patent stent RCA 25% She then had diffuse disease of small vessels including OM and PDA. LVEF 40% documented in this encounter [facility] Work Phone: 04-12-2025 Evaluation + Plan note Associated Problem(s): Mild aortic stenosis November 2024 TTE Mild aortic stenosis [facility] Work Phone: 04-12-2025 Evaluation + Plan note Associated Problem(s): Mixed hyperlipidemia High intensity statin Reports recent labs at [facility], will obtain [facility] Work Phone: 04-12-2025 Evaluation + Plan note Associated Problem(s): Essential hypertension optimal in office Prior dose of hydrochlorothiazide and losartan were discontinued due to hyponatremia [facility] Work Phone: 04-12-2025 Evaluation + Plan note Associated Problem(s): Two-vessel coronary artery disease November 2024 NSTEMI at [facility] December [address] [facility] with Dr. Lee Mcknight/Eloina PCI/Ananda 2.5 x 15mm pMarg patent stent RCA mild November 18, 2023 cardiac cath following abnormal outpatient perfusion study Ostial/proximal LAD PCI/Ananda 2.5 x 15 mm due to ISR Proximal circumflex with patent stent RCA 25% She then had diffuse disease of small vessels including OM and PDA. LVEF 40% [facility] Work Phone: 04-11-2025 History of Present illness Narrative Chief Complaint I think I am doing better Reason for Visit Patient presents to the office today for outpatient follow-up for hospital follow-up. Last evaluated in clinic by Dr. Ndiaye January 2025. At that time he reduced carvedilol dosage due to dizziness. Presents today ambulatory with cane and steady gait. Accompanied by daughter January 2025: Presented to [facility] due to weakness and unsteady gait. Was noted to have a sodium of 126, E. coli UTI. Hydrochlorothiazide and losartan were discontinued. Discharge sodium 141. I do not believe she was seen by Dr. Ndiaye during that admit. History of Present Illness Patient presents to the office today where overall she reports doing fine . Off of hydrochlorothiazide and losartan her blood pressure is optimal in the office today, it was optimal PCP follow-up earlier this week. She denies any recurrent weakness, unsteady gait or falls. She did have labs done recently at [facility] and I will obtain. She otherwise is active caring for her , doing housework and able to go to the grocery store. Her prior PCI symptom was dyspnea on exertion and she denies any reoccurrence. Remains compliant with DAPT. Patient reports that overall has no complaint(s) of chest pain, chest pressure/discomfort, claudication, dyspnea, exertional chest pressure/discomfort, fatigue, irregular heart beat, lower extremity edema, and near-syncope Daily activity: 4 METs Denies any change in exercise capacity or functional tolerance since last office visit. The importance of secondary prevention reviewed: HTN: Optimal HLD: Treated with recent labs DM: Denies Smoker: Denies BMI: Reviewed the merits of healthy lifestyle choices on overall cardiovascular health. Discussed the dynamic nature of coronary artery disease and the importance of seeking medical attention if new symptoms arise. Review of Systems Cardiovascular: Negative for chest pain, dyspnea on exertion, irregular heartbeat, leg swelling, near-syncope, orthopnea, palpitations, paroxysmal nocturnal dyspnea and syncope. Visit Vitals BP 132/68 (BP Location: Left arm, Patient Position: Sitting) Pulse 72 Ht 1.626 m (5' 4 ) Wt 64.4 kg (142 lb) BMI 24.37 kg/m Smoking Status Never BSA 1.71 m Physical Exam Vitals and nursing note [...] and Affect: Mood normal. Behavior: Behavior normal. ALLERGIES: Patient has no known allergies. Current Outpatient Medications Medication Instructions alendronate (FOSAMAX) 70 mg, Every 7 days aspirin 81 mg, Nightly atorvastatin (LIPITOR) 80 mg, Daily calcium carbonate-vitamin D3 500 mg-5 mcg (200 unit) tablet 1 tablet, Daily carvedilol (COREG) 3.125 mg, oral, 2 times daily (morning and late afternoon) clopidogrel (PLAVIX) 75 mg, oral, Daily docusate sodium (COLACE) 100 mg, 2 times daily estradiol (ESTRACE) 2 g, Daily PRN mirabegron (MYRBETRIQ) 25 mg, Nightly nitroglycerin (NITROSTAT) 0.4 mg, Every 5 min PRN pantoprazole (ProtoNix) 40 mg EC tablet 1 tablet, Daily before breakfast ranolazine (RANEXA) 500 mg, oral, 2 times daily, Do not crush, chew, or split. Assessment: Two-vessel coronary artery disease November 2024 NSTEMI at [facility] December [address] [facility] with Dr. Lee Mcknight/Eloina PCI/Ananda 2.5 x 15mm pMarg patent stent RCA mild November 18, 2023 cardiac cath following abnormal outpatient perfusion study Ostial/proximal LAD PCI/Ananda 2.5 x 15 mm due to ISR Proximal circumflex with patent stent RCA 25% She then had diffuse disease of small vessels including OM and PDA. LVEF 40% Essential hypertension optimal in office Prior dose of hydrochlorothiazide and losartan were discontinued due to hyponatremia Mixed hyperlipidemia High intensity statin Reports recent labs at [facility], will obtain Mild aortic stenosis November 2024 TTE Mild aortic stenosis Congestive heart failure, NYHA class 2 and ACC/AHA stage C (Multi) IC HF borderline EF 50-55% November 2024 (January 2023 TTE EF 40-45% & December 2023 cath EF 40%) FC II GDMT Coreg Of cozaar due to hyponatremia Plan: Through informed decision making process incorporating patients unique circumstances, the following treatment plan will be initiated: 1. Prescription drug management of cardiovascular medication for efficacy, adherence to treatment, side effect assessment and polypharmacy. Current treatment clinically warranted and to continue without modifications. 2. Return for follow-up; in the interim, contact the office if new symptoms arise. Dr. Ndiaye 6 months Sulma Busby MSN, [employer]PER[employer] INST[employer]ER, PMHNP-[facility] [place], [place] Please excuse any errors in grammar or translation related to this dictation. Voice recognition software was utilized to prepare this document. documented in this encounter [facility] Work Phone: 04-11-2025 Instructions ABDULLAHI Kaur - 04/11/2025 11:30 AM EDT PLAN: Through informed decision making process incorporating patients unique circumstances, the following treatment plan will be initiated: 1. Prescription drug management of cardiovascular medication for efficacy, adherence to treatment, side effect assessment and polypharmacy. Current treatment clinically warranted and to continue without modifications. 2. Return for follow-up; in the interim, contact the office if new symptoms arise. Dr. Ndiaye 6 months documented in this encounter [facility] Work Phone: 02-10-2025 Discharge summary Note Date/Time February 10, 2025 4:30pm [place] [address] Discharge Summary Signed Patient: Atiya Jha MR#: [id number] : 1940 Acct:[id number] Age/Sex: 84 / F Adm Date: 5 Loc: Room: [address] [place] [address]: Sandra Heart MD Copies to: DO Iza Dean APRN Obaydah M Daromar, MD~ Providers Date of Discharge: 02/10/25 Discharging Provider: Iza Rae Primary Care Provider: Ivan Barreto Consults: 02/09/25 23:05 Consult to Neurology Routine Comment: Consulting Provider: Kapler,Rashawn M Reason For Exam: Unsteadiness Has Provider Been Notified: Yes Date of Notification: 02/10/25 Time of Notification: 07:37 Consult to Occupational Therapy Routine Comment: Physician Instructions: Consult to OT for:: Evaluation and Treat Consult to Physical Therapy Routine Comment: Physician Instructions: Consult to PT for:: Evaluation and Treat Discharge Diagnosis (1) Unsteadiness: (2) Hyponatremia: (3) Accidental fall: Final Diagnosis Final Discharge Diagnosis: As noted above Summary Hospital Course Hospital course: Patient is a 84-year-old woman who came to the emergency department February 09, 2025 complaining of weakness and unsteady gait. She reported tripping and falling on February 02, 2025 and then she came in yesterday with some left-sided abdominal discomfort and right sided chest wall pain. In the ED she was noted to have hyponatremia with sodium of 126 and was admitted for workup. Head CT did not show any acute intracranial pathology. CT abdomen and pelvis showed bilateral hip replacements. She has a nondisplaced left 12th rib fracture from the fall. Acute moderate hyponatremia?due to medications Sodium on admission was noted to be 126 he was started on IV fluids with improvement to sodium level. Today sodium is at 133. Her HCTZ and losartan were held at discharge and she will follow-up with a BMP on Thursday. She was instructed to follow-up with her PCP within the week. Generalized weakness/Unsteady gait?leading to falls. Likely due to low sodium She was seen and evaluated by neurology, and she was recommended outpatient follow-up for consideration for EMG and nerve conduction studies. B12 2048, A1c5.7, SPEP and, immunofixation with pending at time of discharge. He was seen and evaluated by physical therapy and Occupational Therapy and recommended acuteinpatient rehabilitation. Nondisplaced left 12th rib fracture from the fall?. She was discharged with lidocaine patch and will follow-up with her primary care physician. E. coli UTI?she will be discharged on 5 days of cefuroxime Time Spent with Patient Time spent providing/coordinating discharge services (# min): 40 Discharge Plan Discharge Plan Patient Disposition: Home Activity: No Activity Restriction Diet: Regular Additional Instructions: Obtain BMP on Thursday as ordered Instructions: Know your Meds Prescriptions: New lidocaine 4 % adhesive patch,medicated 1 patch topical DAILY PRN (Reason: pain (scale score 4-6)) Qty: 5 0RF cefuroxime axetil 500 mg tablet 500 mg PO BID Qty: 10 0RF Continued clopidogrel 75 mg tablet 75 mg PO DAILY 90 Days Qty: 90 3RF pantoprazole 40 mg tablet,delayed release (DR/EC) 40 mg PO DAILY 90 Days Qty: 90 3RF Rx Instructions: take on empty stomach, 30 minutes prior to bkfst carvedilol 3.125 mg tablet 3.125 mg PO BID.WITH.MEALS Qty: 60 3RF atorvastatin 80 mg tablet 80 mg PO QPM 100 Days Qty: 100 3RF aspirin [Aspir-81] 81 mg Tablet,Delayed Release (Dr/Ec) 81 mg PO DAILY alendronate 70 mg tablet 70 mg PO QWEEK Patient Comments: TAKE 1 TABLET BY MOUTH ONCE A WEEK ON THURSDAY (30 MINUTES before FIRST food,beverage or medicine OF the day with plain water) Rx Instructions: EVERY THURSDAY nitroglycerin 0.4 mg Tablet, Sublingual 0.4 mg sublingual Q5M PRN (Reason: Chest Pain) Qty: 30 2RF calcium carbonate-vitamin D3 500 mg-5 mcg (200 unit) tablet 1 tab PO DAILY acetaminophen [Tylenol Extra Strength] 500 mg tablet 1,000 mg PO Q6HR PRN (Reason: pain) estradiol 0.01 % (0.1 mg/gram) cream 1 appful VAGINAL DAILY docusate sodium 100 mg Capsule 200 mg PO BID PRN (Reason: Constipation) Qty: 0 0RF mirabegron [Myrbetriq] 25 mg tablet extended release 24 hr 25 mg PO HS ranolazine 500 mg tablet extended release 12 hr 500 mg PO BID Held hydrochlorothiazide 25 mg tablet 12.5 mg PO DAILY Hold Instructions: Hold until BMP Thursday Rx Instructions: TAKE 1 TABLET BY MOUTH EVERY 48 HOURS losartan 25 mg tablet 25 mg PO DAILY Hold Instructions: Hold until BMP on Thursday Other Ambulatory Orders: DME Home Medical Equipment (Routine) Timeframe: 20250210 Location: Determined by Patient Ordered By: Iza Rae Basic Metabolic Panel (Routine) Timeframe: 20250213 Location: Determined by Patient Ordered By: Iza Rae Follow Up: [facility] [place] [Outside] Referral Note: The office is currently closed. Please call the office for a follow-up appointment. Ivan Barreto DO [Primary Care Provider, Internal Medicine] - 02/24/25 10:30 am Referral Note: You have been scheduled for a follow up appointment for the following date and time, please call to reschedule if needed. Continuity of Care Document Health Concerns: A [facility] screening has identified you as FRAIL or AT RISK FOR FRAILTY. This puts you at a higher risk for infection, illness, falls,and other injuries. Here are four ways to help you reduce your risk of frailty: 1. IDENTIFY EARLY SIGNS OF FRAILTY ? Discuss contributing factors and concerns with your doctor 2. BE ACTIVE ? Walking and light strengthening exercises will help reduce weakness 3. EAT WELL ? Aim for three healthy meals a day that are high in protein 4. THINK POSITIVE ? Keep your mind active by being sociable and continuing to learn References: Stay Strong: Four Ways to Beat the Frailty Riskhttps://www.[facility].org/health/wellness-a nd-prevention/zbof-hsqmga-ghmx-royr-so-fanj-the-frail ty-risk Exam Physical Exam Vital Signs: Temp Pulse Resp BP Pulse Ox O2 Del Method 98.0 F 81 16 134/79 97 Room Air 02/10/25 12:00 02/10/25 12:00 02/10/25 12:00 02/10/25 12:00 02/10/25 12:00 02/10/25 12:00 Diagnostic Studies Completed and Pending Studies Pending studies at discharge: 02/10/25 02:25 Urine Culture Stat 02/10/25 14:49 A1C with Estimated Average Glu [CHEM] Routine B12 [Vitamin B12] [CHEM] Routine Immunofixation,Serum Routine Protein Electrophoresis, Serum Routine Preliminary micro results at discharge 02/10/25 02:25 Urine Culture - Pending Urine - Clean-Voided Midstream Labs on day of discharge: 02/10/25 10:09: Sodium 131 L 02/10/25 05:57: Corrected WBC 8.7, Uncorrected WBC Count 8.7, RBC 3.95, Hgb 12.9, Hct 36.5, MCV 92.2, MCH 32.6, MCHC 35.3 H, RDW 13.3, Plt Count 220, MPV 7.8, Neut % (Auto) 67.3, Lymph % (Auto) 21.8, [place] % (Auto) 10.3, Eos % (Auto) 0.4, Baso % (Auto) 0.2, Nucleat RBC Rel Count 0.2, Neut # (Auto) 5.8, Lymph # (Auto) 1.9, [place] # (Auto) 0.9 H, Eos # (Auto) 0.0, Baso # (Auto) 0.0, PHA Creatinine Clear 46.26, Sodium 129 L, Potassium 3.4 L, Chloride 94 L, Carbon Dioxide 25.4, Anion Gap 13.0, BUN 14, Creatinine 0.68, Est GFR (CKD-EPI) > 60.0, Glucose 95, Calcium 8.9, Magnesium 1.9, Total Bilirubin 0.8, AST 20, ALT 14, Alkaline Phosphatase 33 L, Total Protein 6.2 L, Albumin 3.9, Globulin 2.3, Albumin/Globulin Ratio 1.7 02/10/25 02:25: Urine Color Yellow, Urine Appearance Clear, Urine pH 6.0, Ur Specific [place] >1.050 H, Urine Protein 30 H, Urine Glucose (UA) Normal, Urine Ketones 2+ H, Urine Occult Blood 2+ H, Urine Nitrite Negative, Urine Bilirubin Negative, Urine Urobilinogen Normal, Ur Leukocyte Esterase 2+ H, Urine RBC 5-9 H, Urine WBC 20-49 H, Ur Squamous Epith Cells 1-2, Urine Bacteria Rare, Hyaline Casts None, Urine Mucus Rare, Urine Osmolality 697, Ur Random Sodium 50 02/10/25 00:21: PHA Creatinine Clear 46.26, Sodium 127 L, Potassium 3.6, Chloride 91 L, Carbon Dioxide 27.4, Anion Gap 12.2, BUN 15, Creatinine 0.74, Est GFR (CKD-EPI) > 60.0, Glucose 119 H, Calcium 9.4, Troponin I High Sens 17 H 02/09/25 22:53: Osmolality 267 L, Uric Acid 3.5, Total Creatine Kinase 61, Troponin I High Sens 15 02/09/25 20:00: Corrected WBC 6.9, Uncorrected WBC Count 6.9, RBC 4.46, Hgb 14.3, Hct 41.1, MCV 92.2, MCH 32.0, MCHC 34.7, RDW 13.2, Plt Count 222, MPV 7.1, Neut % (Auto) 68.7, Lymph % (Auto) 21.6, [place] % (Auto) 8.6, Eos % (Auto) 0.5, Baso % (Auto) 0.6, Nucleat RBC Rel Count 0.1, Neut # (Auto) 4.8, Lymph # (Auto) 1.5, [place] # (Auto) 0.6, Eos # (Auto) 0.0, Baso # (Auto) 0.0, Monocyte Dist Width 15.66, PHA Creatinine Clear 46.26, Sodium 126 L, Potassium 3.9, Chloride 91 L, Carbon Dioxide 26.3, Anion Gap 12.6, BUN 15, Creatinine 0.77, Est GFR (CKD-EPI) > 60.0, Glucose 125 H, Calcium 9.7, Total Bilirubin 1.0, AST 23, ALT 17, Alkaline Phosphatase 44, Troponin I High Sens 15, Total Protein 7.3, Albumin 4.7, Globulin 2.6, Albumin/Globulin Ratio 1.8, Lipase 24.0 Documented By: Iza Rae APRN 02/10/25 1507 Signed By: <Electronically signed by ZAID Rae> 02/12/25 175 <Electronically signed by Sandra Heart MD> 02/12/251756 [facility] Work Phone: [phone]) 247-255307-11-2025 Consult note Author Rashawn Mahmood [facility] Note Date/Time February 10, 2025 2:32 pm [facility] [address] [place] [address] Neurology Consult Note Signed Patient: Atiya Jha MR#: [id number] : 1940 Acct:[id number] Age/Sex: 84 / F Adm Date: 5 Loc: Room: [address] [place] [address] Type: ADM IN Attending Dr: Sandra Heart MD Copies to: DO Ivan Paz DO Obaydah M Daromar, MD~ HPI Consult Date: 02/10/25 Records Analysis Manager: Rashawn Mahmood DO [facility] Medical History (Updated 02/10/25 @ 08:41 by Angie Davidson MD) Contusion of left shoulder Chest pain Contusion of left chest wall Chest wall contusion Accidental fall Aortic stenosis Chronic HFrEF (heart failure with reduced ejection fraction) Ischemic cardiomyopathy PCI/stent - 11/1999, PCI/stent LCX, PTCA distal LAD - 01/2023, PCI/stent LAD - 11/2023, PCI/stent ostial and distal LAD - 12/2024 Low back pain Osteoporosis Unsteady gait Abdominal pain Anemia Screening mammogram for breast cancer Medicare annual wellness visit, subsequent Hypercholesterolemia Primary osteoarthritis of right hip Chronic venous insufficiency of lower extremity Heart failure with improved ejection fraction (HFimpEF) GERD (gastroesophageal reflux disease) Thyroid disease pt and daughter do not recall dx on 02/03/2025 Lumbar spondylosis uses pain clinic for pain control Stage 3a chronic kidney disease (CKD) pt and daughter due not recall dx 02/03/2025 ASHD (arteriosclerotic heart disease) Echo: LVEF 60%, RVSP 30-40, , MR, TR - 01/2024, PCI/stent - 11/1999, PCI/stent LCX, PTCA distal LAD - 01/2023, PCI/stent LAD - 11/2023, PCI/stent ostial and distal LAD - 12/2024 Abnormal weight loss Surgical History H/O total hip arthroplasty (~03/2011) left H/O total hip arthroplasty (~06/2021) right History of phacoemulsification of cataract of both eyes with intraocular lens implantation H/O bilateral cataract extraction History of surgery Trigger finger, left 2004 Trigger finger, right 06/2023 Eyelids lifted 2020 CTR right 06/2023 H/O abdominoplasty H/O bilateral breast reduction surgery History of cardiac catheterization (~11/2023) PCI/stent - 11/1999, PCI/stent LCX, PTCA distal LAD - 01/2023, PCI/stent LAD - 11/2023, PCI/stent ostial and distal LAD - 12/2024 Family History Sister Myocardial infarction Father Heart disease Myocardial infarction CHF (congestive heart failure) Hypertension Mother Social History Smoking Status: Never smoker Substance Use Type: None Substance Abuse Comment: socially Meds Medications and Allergies Allergies No Known Allergies Allergy (Verified 02/09/25 18:24) Home Medications aspirin 81 mg tablet,delayed release (Aspir-) 81 mg PO DAILY 11/02/17 [History Confirmed 02/09/25] alendronate 70 mg tablet 70 mg PO QWEEK 01/14/23 [History Confirmed 02/09/25] nitroglycerin 0.4 mg sublingual tablet 0.4 mg sublingual Q5M PRN Chest Pain #30 tabs 01/16/23 [Rx Confirmed 02/09/25] acetaminophen 500 mg tablet (Tylenol Extra Strength) 1,000 mg PO Q6HR PRN pain 11/16/23 [History Confirmed 02/09/25] calcium 500 mg (as carbonate)-vitamin D3 5 mcg (200 unit) tablet 1 tab PO DAILY 11/17/23 [History Confirmed 02/09/25] mirabegron 25 mg tablet,extended release 24 hr (Myrbetriq) 25 mg PO HS 03/02/24 [History Confirmed 02/09/25] clopidogrel 75 mg tablet 75 mg PO DAILY 90 days #90 tabs 10/26/24 [Rx Confirmed 02/09/25] pantoprazole 40 mg tablet,delayed release 40 mg PO DAILY 90 days #90 tabs 10/28/24 [Rx Confirmed 02/09/25] estradiol 0.01% (0.1 mg/gram) vaginal cream 1 appful vaginal DAILY 11/25/24 [History Confirmed 02/06/25] docusate sodium 100 mg capsule 200 mg (2 x 100 mg) PO BID PRN Constipation #0 caps 11/29/24 [Rx Confirmed 02/09/25] losartan 25 mg tablet 25 mg PO DAILY 12/05/24 [History Confirmed 02/09/25] ranolazine 500 mg tablet,extended release,12 hr 500 mg PO BID 12/05/24 [History Confirmed 02/09/25] carvedilol 3.125 mg tablet 3.125 mg PO BID.WITH.MEALS #60 tabs 01/26/25 [Rx Confirmed 02/09/25] atorvastatin 80 mg tablet 80 mg PO QPM 100 days #100 tabs 02/02/25 [Rx Confirmed 02/09/25] hydrochlorothiazide 25 mg tablet 12.5 mg PO DAILY 02/09/25 [History Confirmed 02/09/25] Exam Physical Exam Vital Signs: Temp Pulse Resp BP Pulse Ox O2 Del Method 98.1 F 78 16 133/77 97 Room Air 02/10/25 08:30 02/10/25 08:30 02/10/25 08:30 02/10/25 08:30 02/10/25 08:30 02/10/25 08:30 Results - Neuro Laboratory Findings 02/10/25 05:57 02/10/25 10:09 Diagnostic Findings Imaging/Impressions: ITS Impressions Abdomen/Pelvis CT 02/09/25 20:10 IMPRESSION: Nondisplaced left 12th rib fracture. Moderate stool burden. No bowel obstruction. Impression dictated by: Stephen Perez M.D. 02/09/2025 9:43 PM Dictation Location: [facility] Chest X-Ray 02/09/25 20:10 IMPRESSION: NO ACUTE CARDIOPULMONARY ABNORMALITY. Impression dictated by: Stephen Perez M.D. 02/09/2025 9:22 PM Dictation Location: [facility] 02/09/25 22:23 IMPRESSION: NO ACUTE INTRACRANIAL ABNORMALITY. Impression dictated by: Stephen Perez M.D. 02/09/2025 11:03 PM Dictation Location: [facility] Therapy Recommendations Therapy Recommendations: OT Recommendations OT Mobility DME Recommended Walker, Wheeled OT Recommended Discharge Home with Home Health Location OT Recommended Services at Occupational Therapy Discharge Assessment/Plan (1) Unsteadiness: (2) Hyponatremia: (3) Accidental fall: Qualifiers: Encounter type: subsequent encounter Qualified Code(s): W19.XXXD - Unspecified fall, subsequent encounter Plan CONSULT REASON: Unsteadiness HPI: 84-year-old woman who came to the emergency department February 09, 2025 in the evening complaining of having a fall that happened on February 02, 2025 and then she came in yesterday with some left-sided abdominal discomfort and right sided chest wall pain. Regarding the fall, she was turning out the lights in the darkand she pivoted and tripped and fell onto her left side. Her daughter said she had been weak and unsteady. She was admitted for workup of hyponatremia, it guc776. She has not been feeling herself lately. Feels generally unwell with weakness and fatigue and then yesterday some nausea and vomiting. Blood pressure occasionally as high as 200 systolic. Sodium today is up to 133. Chloride low at 94. Potassium 3.4. She has a nondisplaced left 12th rib fracture from the fall. Her daughter was not there at the time of my encounter. Atiya tells me she hasnot had any falls since the one that happened on February 02. It is unlike her to fall. She feels like she has decent sensation in her feet. Sometimes she can get a noxious or tingly sensation that goes down her right leg but that is pretty rare. No pains in the feet. She has had both hips replaced, and one of them never really fix the underlying problem according to her, and so she has walked with a sort of waddling gait and she says that because of that she has a tendency to use a walker or cane. Looks like she has history of B12 deficiency and gets supplemented, B12 level was last checked in July 2024 and was greater than 2000. EXAMINATION: In no distress. No deformities or trauma. Limbs seem well-perfused. No significant edema. Normal work of breathing. Visualized skin is generally intact and without lesions aside from age-related findings. Affect normal. Patient is alert and generally oriented. Attention normal. Speech is fluent and nondysarthric. Pupils are equal and reactive. Ocular motility is full. Nonystagmus. Facial sensation is normal. Hearing is normal. Facial strength is normal. Tongue is midline. Muscle bulk, tone, and strength are normal. No tremors. Reflexes normal throughout. Light touch is intact everywhere. Vibratory sensation is absent in the feet bilaterally and diminished as high as the knees bilaterally. No limb dysmetria or ataxia. DATA REVIEW: -Head CT February 09, 2025 no acute findings - CT abdomen and pelvis February 09, 2025 shows bilateral hip replacements, 8 mm anterolisthesis of L5 on S1, 7 mm anterolisthesis of L4 on L5 ASSESSMENT: 84-year-old woman who had a fall back on February 02, 2025. And recently she has been feeling weak and unsteady. Admitted for hyponatremia workup. Examination is fairly unremarkable but does suggest some sensory loss in the lower extremities distally, with total loss of vibratory sensation in the feet. It seems like she potentially has a polyneuropathy. She does have a history of B12 deficiency and we can check on her current serum level. She also has known lumbar spondylosis, and in reviewing her CT abdomen and pelvis from this hospital stay I can see moderate degenerative changes to the back, including about 8 mm of anterolisthesis of L5 on S1 and 7 mm of anterolisthesis of L4 on L5, but there does not seem to be significant compromise of the central canal. PLAN: 1. Check B12, A1c, SPEP, immunofixation 2. I do not think additional lumbar imaging will traveler changer 3. Strong consideration for outpatient EMG and nerve conduction studies 4. Outpatient follow-up with neurology Documented By: Rashawn Mahmood DO 02/10/25 1106 Signed By: <Electronically signed by Rashawn Mahmood DO> 02/10/25 1432 [facility] Work Phone: [phone]) 104-638507-11-2025 [place] [id number] Discharge Summary Signed Patient: Atiya Jha MR#: [id number] : 1940 Acct:[id number] Age/Sex: 84 / F Adm Date: 5 Loc: Room: [address] [place] [address]: Sandra Heart MD Copies to: DO Iza Dean APRN Obaydah M Daromar, MD~ Providers Date of Discharge: 02/10/25 Discharging Provider: Iza Rae Primary Care Provider: Ivan Barreto Consults: 02/09/25 23:05 Consult to Neurology Routine Comment: Consulting Provider: Rashawn Mahmood Reason For Exam: Unsteadiness Has Provider Been Notified: Yes Date of Notification: 02/10/25 Time of Notification: 07:37 Consult to Occupational Therapy Routine Comment: Physician Instructions: Consult to OT for:: Evaluation and Treat Consult to Physical Therapy Routine Comment: Physician Instructions: Consult to PT for:: Evaluation and Treat Discharge Diagnosis (1) Unsteadiness: (2) Hyponatremia: (3) Accidental fall: Final Diagnosis Final Discharge Diagnosis: As noted above Summary Hospital Course Hospital course: Patient is a 84-year-old woman who came to the emergency department February 09, 2025 complaining of weakness and unsteady gait. She reported tripping and falling on February 02, 2025 and then she came in yesterday with some left-sided abdominal discomfort and right sided chest wall pain. In the ED she was noted to have hyponatremia with sodium of 126 and was admitted for workup. Head CT did not show any acute intracranial pathology. CT abdomen and pelvis showed bilateral hip replacements. She has a nondisplaced left 12th rib fracture from the fall. Acute moderate hyponatremia?due to medications Sodium on admission was noted to be 126 he was started on IV fluids with improvement to sodium level. Today sodium is at 133. Her HCTZ and losartan were held at discharge and she will follow-up with a BMP on Thursday. She was instructed to follow-up with her PCP within the week. Generalized weakness/Unsteady gait?leading to falls. Likely due to low sodium She was seen and evaluated by neurology, and she was recommended outpatient follow-up for consideration for EMG and nerve conduction studies. B12 2047, A1c5.7, SPEP and, immunofixation with pending at time of discharge. He was seen and evaluated by physical therapy and Occupational Therapy and recommended acuteinpatient rehabilitation. Nondisplaced left 12th rib fracture from the fall?. She was discharged with lidocaine patch and will follow-up with her primary care physician. E. coli UTI?she will be discharged on 5 days of cefuroxime Time Spent with Patient Time spent providing/coordinating discharge services (# min): 40 Discharge Plan Discharge Plan Patient Disposition: Home Activity: No Activity Restriction Diet: Regular Additional Instructions: Obtain BMP on Thursday as ordered Instructions: Know your Meds Prescriptions: New lidocaine 4 % adhesive patch,medicated 1 patch topical DAILY PRN (Reason: pain (scale score 4-6)) Qty: 5 0RF cefuroxime axetil 500 mg tablet 500 mg PO BID Qty: 10 0RF Continued clopidogrel 75 mg tablet 75 mg PO DAILY 90 Days Qty: 90 3RF pantoprazole 40 mg tablet,delayed release (DR/EC) 40 mg PO DAILY 90 Days Qty: 90 3RF Rx Instructions: take on empty stomach, 30 minutes prior to bkfst carvedilol 3.125 mg tablet 3.125 mg PO BID.WITH.MEALS Qty: 60 3RF atorvastatin 80 mg tablet 80 mg PO QPM 100 Days Qty: 100 3RF aspirin [Aspir-81] 81 mg Tablet,Delayed Release (Dr/Ec) 81 mg PO DAILY alendronate 70 mg tablet 70 mg PO QWEEK Patient Comments: TAKE 1 TABLET BY MOUTH ONCE A WEEK ON THURSDAY (30 MINUTES before FIRST food,beverage or medicine OF the day with plain water) Rx Instructions: EVERY THURSDAY nitroglycerin 0.4 mg Tablet, Sublingual 0.4 mg sublingual Q5M PRN (Reason: Chest Pain) Qty: 30 2RF calcium carbonate-vitamin D3 500 mg-5 mcg (200 unit) tablet 1 tab PO DAILY acetaminophen [Tylenol Extra Strength] 500 mg tablet 1,000 mg PO Q6HR PRN (Reason: pain) estradiol 0.01 % (0.1 mg/gram) cream 1 appful VAGINAL DAILY docusate sodium 100 mg Capsule 200 mg PO BID PRN (Reason: Constipation) Qty: 0 0RF mirabegron [Myrbetriq] 25 mg tablet extended release 24 hr 25 mg PO HS ranolazine 500 mg tablet extended release 12 hr 500 mg PO BID Held hydrochlorothiazide 25 mg tablet 12.5 mg PO DAILY Hold Instructions: Hold until BMP Thursday Rx Instructions: TAKE 1 TABLET BY MOUTH EVERY 48 HOURS losartan 25 mg tablet 25 mg PO DAILY Hold Instructions: Hold until BMP on Thursday Other Ambulatory Orders: DME Home Medical Equipment (Routine) Timeframe: 20250210 Location: Determined by Patient Ordered By: Iza Rae Basic Metabolic Panel (Routine) Timeframe: 20250213 Location: Determined by Patient Ordered By: Iza Rae Follow Up: [facility] [place] [Outside] Referral Note: The office is currently closed. Please call the office for a follow-up appointment. Ivan Barreto DO [Primary Care Provider, Internal Medicine] - 02/24/25 10:30 am Referral Note: You have been scheduled for a follow up appointment for the following date and time,please call to reschedule if needed. Continuity of Care Document Health Concerns: A [facility] screening has identified you as FRAIL or AT RISK FOR FRAILTY. This puts you at a higher risk for infection, illness, falls,and other injuries. Here are four ways to help you reduce your risk of frailty: 1. IDENTIFY EARLY SIGNS OF FRAILTY ? Discuss contributing factors and concerns with your doctor 2. BE ACTIVE ? Walking and light strengthening exercises will help reduce weakness 3. EAT WELL ? Aim for three healthy meals a day that are high in protein 4. THINKPOSITIVE ? Keep your mind active by being sociable and continuing to learn References: Stay Strong:Four Ways to Beat the Frailty Riskhttps://www.[facility].org/health/qgbbzjey-qjz-kfmaiifvbo/sta i-cbnszl-vnul-gdph-ij-hcjw-xvi-pkkxmdq-uayz Exam Physical Exam Vital Signs: Temp Pulse Resp BP Pulse Ox O2 Del Method 98.0 F 81 16 134/79 97 Room Air 02/10/25 12:00 02/10/25 12:00 02/10/25 12:00 02/10/25 12:00 02/10/25 12:00 02/10/25 12:00 Diagnostic Studies Completed and Pending Studies Pending studies at discharge: 02/10/25 02:25 Urine Culture Stat 02/10/25 14:49 A1C with Estimated Average Glu [CHEM] Routine B12 [Vitamin B12] [CHEM] Routine Immunofixation,Serum Routine Protein Electrophoresis, Serum Routine Preliminary micro results at discharge 02/10/25 02:25 Urine Culture - Pending Urine - Clean-Voided Midstream Labs on day of discharge: 02/10/25 10:09: Sodium 131 L 02/10/25 05:57: Corrected WBC 8.7, Uncorrected WBC Count 8.7, RBC 3.95, Hgb 12.9, Hct 36.5, MCV 92.2, MCH 32.6, MCHC 35.3 H, RDW 13.3, Plt Count 220, MPV 7.8, Neut % (Auto) 67.3, Lymph % (Auto) 21.8,[place] % (Auto) 10.3, Eos % (Auto) 0.4, Baso % (Auto) 0.2, Nucleat RBC Rel Count 0.2, Neut # (Auto) 5.8, Lymph # (Auto) 1.9, [place] # (Auto) 0.9 H, Eos # (Auto) 0.0, Baso # (Auto) 0.0, PHA Creatinine Clear 46.26, Sodium 129 L, Potassium 3.4 L, Chloride 94 L, Carbon Dioxide 25.4, Anion Gap 13.0, BUN 14,Creatinine 0.68, Est GFR (CKD-EPI) > 60.0, Glucose 95, Calcium 8.9, Magnesium 1.9, Total Bilirubin 0.8, AST 20, ALT 14, Alkaline Phosphatase 33 L, Total Protein 6.2 L, Albumin 3.9, Globulin 2.3, Al bumin/Globulin Ratio 1.7 02/10/25 02:25: Urine Color Yellow, Urine Appearance Clear, Urine pH 6.0, Ur Specific [place] >1.050 H, Urine Protein 30 H, Urine Glucose (UA) Normal, Urine Ketones 2+ H, Urine Occult Blood 2+ H, Urine Nitrite Negative, Urine Bilirubin Negative, Urine Urobilinogen Normal, Ur Leukocyte Esterase 2+ H, Urine RBC 5-9 H, Urine WBC 20-49 H, Ur Squamous Epith Cells 1-2, Urine Bacteria Rare, Hyaline Casts None, Urine Mucus Rare, Urine Osmolality 697, Ur Random Sodium 50 02/10/25 00:21: PHA Creatinine Clear 46.26, Sodium 127 L, Potassium 3.6, Chloride 91 L, Carbon Dioxide 27.4, Anion Gap 12.2, BUN 15, Creatinine 0.74, Est GFR (CKD-EPI) > 60.0, Glucose 119 H, Calcium 9.4, Troponin I High Sens 17 H 02/09/25 22:53: Osmolality 267 L, Uric Acid 3.5, Total Creatine Kinase 61, Troponin I High Sens 15 02/09/25 20:00: Corrected WBC 6.9, Uncorrected WBC Count 6.9, RBC 4.46, Hgb 14.3, Hct 41.1, MCV 92.2, MCH 32.0, MCHC 34.7, RDW 13.2, Plt Count 222, MPV 7.1, Neut % (Auto) 68.7, Lymph % (Auto) 21.6, [place] % (Auto) 8.6, Eos % (Auto) 0.5, Baso % (Auto) 0.6, Nucleat RBC Rel Count 0.1, Neut # (Auto) 4.8,Lymph # (Auto) 1.5, [place] # (Auto) 0.6, Eos # (Auto) 0.0, Baso # (Auto) 0.0, Monocyte Dist Width 15.66, PHA Creatinine Clear 46.26, Sodium 126 L, Potassium 3.9, Chloride 91 L, Carbon Dioxide 26.3, Anion Gap 12.6, BUN 15, Creatinine 0.77, Est GFR (CKD-EPI) > 60.0, Glucose 125 H, Calcium 9.7, TotalBilirubin 1.0, AST 23, ALT 17, Alkaline Phosphatase 44, Troponin I High Sens 15, Total Protein 7.3,Albumin 4.7, Globulin 2.6, Albumin/Globulin Ratio 1.8, Lipase 24.0 Documented By: Iza Rae APRN 02/10/25 1507 Signed By: 02/12/25 1754 02/12/25 1757 [facility]07-11-2025 [place] [address] Neurology Consult Note Signed Patient: Atiya Jha MR#: [id number] : 1940 Acct:[id number] Age/Sex: 84 / F Adm Date: 5 Loc: 3T Room: [address] [place] [address] Type: ADM IN Attending Dr: Sandra Heart MD Copies to: DO Ivan Paz DO Obaydah M Daromar, MD~ HPI Consult Date: 02/10/25 Records Analysis Manager: Rashawn Mahmood DO [facility] Medical History (Updated 02/10/25 @ 08:41 by Angie Davidson MD) Contusion of left shoulder Chest pain Contusion of left chest wall Chest wall contusion Accidental fall Aortic stenosis Chronic HFrEF (heart failure with reduced ejection fraction) Ischemic cardiomyopathy PCI/stent - 11/1999, PCI/stent LCX, PTCA distal LAD - 01/2023, PCI/stent LAD - 11/2023, PCI/stent ostial and distal LAD - 12/2024 Low back pain Osteoporosis Unsteady gait Abdominal pain Anemia Screening mammogram for breast cancer Medicare annual wellness visit, subsequent Hypercholesterolemia Primary osteoarthritis of right hip Chronic venous insufficiency of lower extremity Heart failure with improved ejection fraction (HFimpEF) GERD (gastroesophageal reflux disease) Thyroid disease pt and daughter do not recall dx on 02/03/2025 Lumbar spondylosis uses pain clinic for pain control Stage 3a chronic kidney disease (CKD) pt and daughter due not recall dx 02/03/2025 ASHD (arteriosclerotic heart disease) Echo: LVEF 60%, RVSP 30-40, , MR, TR - 01/2024, PCI/stent - 11/1999, PCI/stent LCX, PTCA distal LAD - 01/2023, PCI/stent LAD - 11/2023, PCI/stent ostial and distal LAD - 12/2024 Abnormal weight loss Surgical History H/O total hip arthroplasty (~03/2011) left H/O total hip arthroplasty (~06/2021) right History of phacoemulsification of cataract of both eyes with intraocular lens implantation H/O bilateral cataract extraction History of surgery Trigger finger, left 2004 Trigger finger, right 06/2023 Eyelids lifted 2020 CTR right 06/2023 H/O abdominoplasty H/O bilateral breast reduction surgery History of cardiac catheterization (~11/2023) PCI/stent - 11/1999, PCI/stent LCX, PTCA distal LAD - 01/2023, PCI/stent LAD - 11/2023, PCI/stent ostial and distal LAD - 12/2024 Family History Sister Myocardial infarction Father Heart disease Myocardial infarction CHF (congestive heart failure) Hypertension Mother Social History Smoking Status: Never smoker Substance Use Type: None Substance Abuse Comment: socially Meds Medications and Allergies Allergies No Known Allergies Allergy (Verified 02/09/25 18:24) Home Medications aspirin 81 mg tablet,delayed release (Aspir-) 81 mg PO DAILY 11/02/17 [History Confirmed 02/09/25] alendronate 70 mg tablet 70 mg PO QWEEK 01/14/23 [History Confirmed 02/09/25] nitroglycerin 0.4 mg sublingual tablet 0.4 mg sublingual Q5M PRN Chest Pain #30 tabs 01/16/23 [Rx Confirmed 02/09/25] acetaminophen 500 mg tablet (Tylenol Extra Strength) 1,000 mg PO Q6HR PRN pain 11/16/23 [History Confirmed 02/09/25] calcium 500 mg (as carbonate)-vitamin D3 5 mcg (200 unit) tablet 1 tab PO DAILY 11/17/23 [History Confirmed 02/09/25] mirabegron 25 mg tablet,extended release 24 hr (Myrbetriq) 25 mg PO HS 03/02/24 [History Confirmed 02/09/25] clopidogrel 75 mg tablet 75 mg PO DAILY 90 days #90 tabs 10/26/24 [Rx Confirmed 02/09/25] pantoprazole 40 mg tablet,delayed release 40 mg PO DAILY 90 days #90 tabs 10/28/24 [Rx Confirmed 02/09/25] estradiol 0.01% (0.1 mg/gram) vaginal cream 1 appful vaginal DAILY 11/25/24 [History Confirmed 02/06/25] docusate sodium 100 mg capsule 200 mg (2 x 100 mg) PO BID PRN Constipation #0 caps 11/29/24 [Rx Confirmed 02/09/25] losartan 25 mg tablet 25 mg PO DAILY 12/05/24 [History Confirmed 02/09/25] ranolazine 500 mg tablet,extended release,12 hr 500 mg PO BID 12/05/24 [History Confirmed 02/09/25] carvedilol 3.125 mg tablet 3.125 mg PO BID.WITH.MEALS #60 tabs 01/26/25 [Rx Confirmed 02/09/25] atorvastatin 80 mg tablet 80 mg PO QPM 100 days #100 tabs 02/02/25 [Rx Confirmed 02/09/25] hydrochlorothiazide 25 mg tablet 12.5 mg PO DAILY 02/09/25 [History Confirmed 02/09/25] Exam Physical Exam Vital Signs: Temp Pulse Resp BP Pulse Ox O2 Del Method 98.1 F 78 16 133/77 97 Room Air 02/10/25 08:30 02/10/25 08:30 02/10/25 08:30 02/10/25 08:30 02/10/25 08:30 02/10/25 08:30 Results - Neuro Laboratory Findings 02/10/25 05:57 02/10/25 10:09 Diagnostic Findings Imaging/Impressions: ITS Impressions Abdomen/Pelvis CT 02/09/25 20:10 IMPRESSION: Nondisplaced left 12th rib fracture. Moderate stool burden. No bowel obstruction. Impression dictated by: Stephen Perez M.D. 02/09/2025 9:43 PM Dictation Location: [facility] Chest X-Ray 02/09/25 20:10 IMPRESSION: NO ACUTE CARDIOPULMONARY ABNORMALITY. Impression dictated by: Stephen Perez M.D. 02/09/2025 9:22 PM Dictation Location: [facility] 02/09/25 22:23 IMPRESSION: NO ACUTE INTRACRANIAL ABNORMALITY. Impression dictated by: Stephen Perez M.D. 02/09/2025 11:03 PM Dictation Location: [facility] Therapy Recommendations Therapy Recommendations: OT Recommendations OT Mobility DME Recommended Walker, Wheeled OT Recommended Discharge Home with Home Health Location OT Recommended Services at Occupational Therapy Discharge Assessment/Plan (1) Unsteadiness: (2) Hyponatremia: (3) Accidental fall: Qualifiers: Encounter type: subsequent encounter Qualified Code(s): W19.XXXD - Unspecified fall, subsequent encounter Plan CONSULT REASON: Unsteadiness HPI: 84-year-old woman who came to the emergency department February 09, 2025 in the evening complaining of having a fall that happened on February 02, 2025 and then she came in yesterday with some left-sided abdominal discomfort and right sided chest wall pain. Regarding the fall, she was turning out the lightsin the darkand she pivoted and tripped and fell onto her left side. Her daughter said she had been weak and unsteady. She was admitted for workup of hyponatremia, it [id number]. She has not been feeling herself lately. Feels generally unwell with weakness and fatigue and then yesterday some nausea and vomiting. Blood pressure occasionally as high as 200 systolic. Sodium today is up to 133. Chloride low at 94. Potassium 3.4. She has a nondisplaced left 12th rib fracture from the fall. Her daughter was not there at the time of my encounter. Atiya tells me she hasnot had any falls since the one that happened on February 02. It is unlike her to fall. She feels like she has decent sensation in her feet. Sometimes she can get a noxious or tingly sensation that goes down her right leg butthat is pretty rare. No pains in the feet. She has had both hips replaced, and one of them never really fix the underlying problem according to her, and so she has walked with a sort of waddling gaitand she says that because of that she has a tendency to use a walker or cane. Looks like she has history of B12 deficiency and gets supplemented, B12 level was last checked in July 2024 and was greater than 2000. EXAMINATION: In no distress. No deformities or trauma. Limbs seem well-perfused. No significant edema. Normal work of breathing. Visualized skin is generally intact and without lesions aside from age-related findings. Affect normal. Patient is alert and generally oriented. Attention normal. Speech is fluent and nondysarthric. Pupils are equal and reactive. Ocular motility is full. Nonystagmus. Facial sensation is normal. Hearing is normal. Facial strength is normal. Tongue is midline. Muscle bulk, tone, andstrength are normal. No tremors. Reflexes normal throughout. Light touch is intact everywhere. Vibratory sensation is absent in the feet bilaterally and diminished as high as the knees bilaterally. No limb dysmetria or ataxia. DATA REVIEW: -Head CT February 09, 2025 no acute findings - CT abdomen and pelvis February 09, 2025 shows bilateral hip replacements, 8 mm anterolisthesis of L5 on S1, 7 mm anterolisthesis of L4 on L5 ASSESSMENT: 84-year-old woman who had a fall back on February 02, 2025. And recently she has been feeling weak and unsteady. Admitted for hyponatremia workup. Examination is fairly unremarkable but does suggest some sensory loss in the lower extremities distally, with total loss of vibratory sensation in the feet. It seems like she potentially has a polyneuropathy. She does have a history of B12 deficiency and we can check on her current serum level. Manda has known lumbar spondylosis, and in reviewing her CT abdomen and pelvis from this hospital stay I can see moderate degenerative changes to the back, including about 8 mm of anterolisthesis of L5 on S1 and 7 mm of anterolisthesis of L4 on L5, but there does not seem to be significant compromise of the central canal. PLAN: 1. Check B12, A1c, SPEP, immunofixation 2. I do not think additional lumbar imaging will traveler changer 3. Strong consideration for outpatient EMG and nerve conduction studies 4. Outpatient follow-up with neurology Documented By: Rashawn Mahmood DO 02/10/25 1106 Signed By: 02/10/[address] [place], [place] [id number] History and physical note Author Louis Oliveira [facility] Note Date/Time February 09, 2025 11:0 8pm [facility] [address] [place] [address] Hospitalist H&P Signed Patient: Atiya Jha MR#: [id number] : 1940 Acct:[id number] Age/Sex: 84 / F Adm Date: 5 Loc: Room: [address] [place] [address] Type: ADM INOo Attending Dr: Louis Oliveira MD Copies to: DO Louis Dean MD~ HPI DATE OF EXAMINATION: 02/09/25 CHIEF COMPLAINT: Unsteadiness, weakness, nausea, vomiting HISTORY OF PRESENT ILLNESS: This is a 84 y.o female with past medical Hx of CAD with multiple PCI, HTN, bilateral hip osteoarthritis with hx of ZOË, dyslipidemia, and CKD, here for weakness and fatigue for few days duration. Hx obtained form the pt and her daughter at bedside. She is ambulatory and active at baseline, however around 4 days ago, she had a fall, she does not recall how she fell, and it was unwitnessed, but her daughter states that she might have lost her footing and left on her left side when she turned off the lights and moved from the hallway to the bed. She denies any dizziness or syncope or chest pain or diaphoresis or nausea or vomiting at the time. She came to our ED, and was found to have 12th rib fracture, and was sent on norco which she never picked up as it made her feel sick. Since then she was not feeling herself, reports weakness and fatigue until yesterday when she ddeveoped nausea and vomiting with left sided upper abdominal pain, no fever or chills. her daughter states that she looks completeley different than her baseline. When I saw her she was lying in bed tired and ill appearing. Also reports unsteadiness of her gait. In the ED, she was hypertensive with SBP in 200s, not in acute distress but ill appearing. Received 1 dose of diphenhydramine 25 mg IV once, 1 dose of morphine IV 4 mg, total of 8 mg of IV Zofran. Labs show Hyponatremia of 126, chloride of 91. BUN/Cr were normal, Trop of 15. CBC was not remarkable. CXR was negative for acute pathology. CT abdomen pelvis without contrast showed non-displaced left 12th rib fracture. Pt to be admitted for further workup and management. EKG showed NSR with no ischemic changes. HR of 76 bpm, QTc of 483 msec Review of Systems Review of Systems All other systems reviewed & are negative unless noted below or in HPI [facility] Medical History (Updated 02/09/25 @ 23:00 by Louis Oliveira MD) Contusion of left shoulder Chest pain Contusion of left chest wall Chest wall contusion Accidental fall Aortic stenosis Chronic HFrEF (heart failure with reduced ejection fraction) Ischemic cardiomyopathy PCI/stent - 11/1999, PCI/stent LCX, PTCA distal LAD - 01/2023, PCI/stent LAD - 11/2023, PCI/stent ostial and distal LAD - 12/2024 Low back pain Osteoporosis Unsteady gait Abdominal pain Anemia Screening mammogram for breast cancer Medicare annual wellness visit, subsequent Hypercholesterolemia Primary osteoarthritis of right hip Chronic venous insufficiency of lower extremity Heart failure with improved ejection fraction (HFimpEF) GERD (gastroesophageal reflux disease) Thyroid disease pt and daughter do not recall dx on 02/03/2025 Lumbar spondylosis uses pain clinic for pain control Stage 3a chronic kidney disease (CKD) pt and daughter due not recall dx 02/03/2025 ASHD (arteriosclerotic heart disease) Echo: LVEF 60%, RVSP 30-40, , MR, TR - 01/2024, PCI/stent - 11/1999, PCI/stent LCX, PTCA distal LAD - 01/2023, PCI/stent LAD - 11/2023, PCI/stent ostial and distal LAD - 12/2024 Abnormal weight loss Surgical History H/O total hip arthroplasty (~03/2011) left H/O total hip arthroplasty (~06/2021) right History of phacoemulsification of cataract of both eyes with intraocular lens implantation H/O bilateral cataract extraction History of surgery Trigger finger, left 2004 Trigger finger, right 06/2023 Eyelids lifted 2020 CTR right 06/2023 H/O abdominoplasty H/O bilateral breast reduction surgery History of cardiac catheterization (~11/2023) PCI/stent - 11/1999, PCI/stent LCX, PTCA distal LAD - 01/2023, PCI/stent LAD - 11/2023, PCI/stent ostial and distal LAD - 12/2024 Family History Sister Myocardial infarction Father Heart disease Myocardial infarction CHF (congestive heart failure) Hypertension Mother Social History Smoking Status: Never smoker Substance Use Type: None Substance Abuse Comment: socially Meds Medications and Allergies Allergies No Known Allergies Allergy (Verified 02/09/25 18:24) Home Medications aspirin 81 mg tablet,delayed release (Aspir-) 81 mg PO DAILY 11/02/17 [History Confirmed 02/09/25] alendronate 70 mg tablet 70 mg PO QWEEK 01/14/23 [History Confirmed 02/09/25] nitroglycerin 0.4 mg sublingual tablet 0.4 mg sublingual Q5M PRN Chest Pain #30 tabs 01/16/23 [Rx Confirmed 02/09/25] acetaminophen 500 mg tablet (Tylenol Extra Strength) 1,000 mg PO Q6HR PRN pain 11/16/23 [History Confirmed 02/09/25] calcium 500 mg (as carbonate)-vitamin D3 5 mcg (200 unit) tablet 1 tab PO DAILY 11/17/23 [History Confirmed 02/09/25] mirabegron 25 mg tablet,extended release 24 hr (Myrbetriq) 25 mg PO HS 03/02/24 [History Confirmed 02/09/25] clopidogrel 75 mg tablet 75 mg PO DAILY 90 days #90 tabs 10/26/24 [Rx Confirmed 02/09/25] pantoprazole 40 mg tablet,delayed release 40 mg PO DAILY 90 days #90 tabs 10/28/24 [Rx Confirmed 02/09/25] estradiol 0.01% (0.1 mg/gram) vaginal cream 1 appful vaginal DAILY 11/25/24 [History Confirmed 02/06/25] docusate sodium 100 mg capsule 200 mg (2 x 100 mg) PO BID PRN Constipation #0 caps 11/29/24 [Rx Confirmed 02/09/25] losartan 25 mg tablet 25 mg PO DAILY 12/05/24 [History Confirmed 02/09/25] ranolazine 500 mg tablet,extended release,12 hr 500 mg PO BID 12/05/24 [History Confirmed 02/09/25] carvedilol 3.125 mg tablet 3.125 mg PO BID.WITH.MEALS #60 tabs 01/26/25 [Rx Confirmed 02/09/25] atorvastatin 80 mg tablet 80 mg PO QPM 100 days #100 tabs 02/02/25 [Rx Confirmed 02/09/25] hydrochlorothiazide 25 mg tablet 12.5 mg PO DAILY 02/09/25 [History Confirmed 02/09/25] Exam Physical Exam Vital Signs: Temp Pulse Resp BP Pulse Ox O2 Del Method 97.9 F 84 18 181/84 H 95 Room Air 02/09/25 18:26 02/09/25 21:58 02/09/25 21:58 02/09/25 21:58 02/09/25 21:58 02/09/25 21:58 Narrative: Constitutional Ill appearing, not in acute distress, frail and lying in bed Eyes PERRL, conjunctivae normal and no scleral icterus Neck/C-Spine full ROM, thyroid normal and no carotid bruits, no thyromegaly, no lymphadenopathy Chest palpation of chest abnormal (bruised and tender along the left lateral lower ribs) Respiratory breath sounds equal bilaterally, normal respiratory effort and clear to auscultation bilaterally Cardiovascular regular rate, regular rhythm, no murmur, no JVD, peripheral pulses 2+ throughoutand no bruits noted Gastrointestinal abdomen normal to inspection, soft, nontender to palpation, nontender to percussion, normoactive bowel sounds, no hepatosplenomegaly and no masses Extremities no tenderness, full ROM and no joint enlargement ROM C-spine and left shoulder near normal. Neurology no focal motor deficits, no sensory deficits noted, oriented x3 Results - Hospitalist H&P Lab Results Labs: Laboratory Last Values Corrected WBC 6.9 X10E3/uL (3.8-11.6) 02/09/25 20: Uncorrected WBC Count 6.9 x10E3/uL (3.8-11.6) 02/09/25 20:00 RBC 4.46 x10E6/uL (3.60-5.00) 02/09/25 20:00 Hgb 14.3 g/dL (11.8-15.4) 02/09/25 20:00 Hct 41.1 % (34.0-46.4) 02/09/25 20: MCV 92.2 fl (80-100) 02/09/25 20:00 MCH 32.0 pg (24.7-34.3) 02/09/25 20: MCHC 34.7 g/dL (32.0-35.0) 02/09/25 20: RDW 13.2 % (11.9-15.3) 02/09/25 20: Plt Count 222 x10E3/uL (150-450) 02/09/25 20: MPV 7.1 fl (6.3-10.7) 02/09/25 20: Neut % (Auto) 68.7 % (.) 02/09/25 20: Lymph % (Auto) 21.6 % (.) 02/09/25 20:00 [place] % (Auto) 8.6 % (.) 02/09/25 20:00 Eos % (Auto) 0.5 % (.) 02/09/25 20:00 Baso % (Auto) 0.6 % (.) 02/09/25 20:00 Nucleat RBC Rel Count 0.1 /100 WBC (0-0.5) 02/09/25 20:00 Neut # (Auto) 4.8 x10E3/uL (1.8-7.7) 02/09/25 20:00 Lymph # (Auto) 1.5 x10E3/uL (1.00-4.8) 02/09/25 20:00 [place] # (Auto) 0.6 x10E3/uL (0.0-0.8) 02/09/25 20:00 Eos # (Auto) 0.0 x10E3/uL (0.0-0.45) 02/09/25 20:00 Baso # (Auto) 0.0 x10E3/uL (0.0-0.2) 02/09/25 20:00 Monocyte Dist Width 15.66 % (0.00-20.00) 02/09/25 20:00 PHA Creatinine Clear 46.26 02/09/25 20:00 Sodium 126 mmol/L (136-145) L 02/09/25 20:00 Potassium 3.9 mmol/L (3.5-5.1) 02/09/25 20:00 Chloride 91 mmol/L (98-107) L 02/09/25 20:00 Carbon Dioxide 26.3 mmol/L (21.0-31.0) 02/09/25 20:00 Anion Gap 12.6 mEq/L (6.0-15.0) 02/09/25 20:00 BUN 15 mg/dL (7-25) 02/09/25 20:00 Creatinine 0.77 mg/dL (0.60-1.20) 02/09/25 20:00 Est GFR (CKD-EPI) > 60.0 mL/Min 02/09/25 20:00 Glucose 125 mg/dL (70-100) H 02/09/25 20:00 Calcium 9.7 mg/dL (8.6-10.3) 02/09/25 20:00 Total Bilirubin 1.0 mg/dl (0.3-1.0) 02/09/25 20:00 AST 23 U/L (13-39) 02/09/25 20:00 ALT 17 U/L (7-52) 02/09/25 20:00 Alkaline Phosphatase 44 U/L (34-104) 02/09/25 20:00 Troponin I High Sens 15 ng/L (0-15) 02/09/25 20:00 Total Protein 7.3 gm/dL (6.4-8.9) 02/09/25 20:00 Albumin 4.7 gm/dL (3.5-5.7) 02/09/25 20:00 Globulin 2.6 gm/dL 02/09/25 20:00 Albumin/Globulin Ratio 1.8 02/09/25 20:00 Lipase 24.0 U/L (11.0-82.0) 02/09/25 20:00 Assessment & Plan Assessment/Plan (1) Unsteadiness: (2) Debility: (3) Hyponatremia: (4) Hypertensive urgency: Plan Nausea and Vomiting secondary to Hypertensive Urgency Unsteadiness and generalized weakness Acute Hyponatremia, likely from GI losses -Admit pt to medical floor with telemetry -For now will start her on IV NS 100 ml/hr for a total of 500 ml, if Na not improved by am, can consult nephrology -Consult neurology for the unsteadiness -PT/OT eval -Will restart pt's oral medications for HTN, and obtain CT head without contrast -Obtain repeat Troponin and CPK -IV compazine 5 mg q6 hours PRN for nausea/vomiting -IV labetalol 5 mg q6 hours PRN for SBP>180 -PT/OT eval -Discussed the plan with pt and daughter, in agreement with the plan -Code status is full, HSQ for DVT PPx, IV pantoprazole 40 mg for GI PPx -Will reconcile medications once list is updated by nursing team -Check BMP at 2 am tomorrow -Obtain uric acid, plasma and urine osmolarity, and urine sodium and UA IP vs OBS Justification Based on differential dx, clinical care plan, and risk of adverse events, if untreated, in my clinical judgement this patient requires an acute care setting as: INPATIENT because of an expectation of an over 2 midnight stay. Estimated length of stay (# of days): 3 Time Spent With Patient (min): 75 Documented By: Louis Oliveira MD 02/09/25 2240 Signed By: <Electronically signed by Louis Oliveira MD> 02/09/25 2303 [facility] Work Phone: [phone]) 244-409107-10-2025 [place] [address] Hospitalist H&P Signed Patient: Atiya Jha MR#: [id number] : 1940 Acct:[id number] Age/Sex: 84 / F Adm Date: 5 Loc: Room: [address] [place] [address] Type: ADM INOo Attending Dr: Louis Oliveira MD Copies to: DO Louis Dean MD~ HPI DATE OF EXAMINATION: 02/09/25 CHIEF COMPLAINT: Unsteadiness, weakness, nausea, vomiting HISTORY OF PRESENT ILLNESS: This is a 84 y.o female with past medical Hx of CAD with multiple PCI, HTN, bilateral hip osteoarthritis with hx of ZOË, dyslipidemia, and CKD, here for weakness and fatigue for few days duration. Hxobtained form the pt and her daughter at bedside. She is ambulatory and active at baseline, howeveraround 4 days ago, she had a fall, she does not recall how she fell, and it was unwitnessed, but her daughter states that she might have lost her footing and left on her left side when she turned offthe lights and moved from the hallway to the bed. She denies any dizziness or syncope or chest painor diaphoresis or nausea or vomiting at the time. She came to our ED, and was found to have 12th rib fracture, and was sent on norco which she never picked up as it made her feel sick. Since then shewas not feeling herself, reports weakness and fatigue until yesterday when she ddeveoped nausea andvomiting with left sided upper abdominal pain, no fever or chills. her daughter states that she looks completeley different than her baseline. When I saw her she was lying in bed tired and ill appearing. Also reports unsteadiness of her gait. In the ED, she was hypertensive with SBP in 200s, not inacute distress but ill appearing. Received 1 dose of diphenhydramine 25 mg IV once, 1 dose of morphine IV 4 mg, total of 8 mg of IV Zofran. Labs show Hyponatremia of 126, chloride of 91. BUN/Cr were normal, Trop of 15. CBC was not remarkable. CXR was negative for acute pathology. CT abdomen pelvis without contrast showed non-displaced left 12th rib fracture. Pt to be admitted for further workup and management. EKG showed NSR with no ischemic changes. HR of 76 bpm, QTc of 483 msec Review of Systems Review of Systems All other systems reviewed & are negative unless noted below or in HPI [facility] Medical History (Updated 02/09/25 @ 23:00 by Louis Oliveira MD) Contusion of left shoulder Chest pain Contusion of left chest wall Chest wall contusion Accidental fall Aortic stenosis Chronic HFrEF (heart failure with reduced ejection fraction) Ischemic cardiomyopathy PCI/stent - 11/1999, PCI/stent LCX, PTCA distal LAD - 01/2023, PCI/stent LAD - 11/2023, PCI/stent ostial and distal LAD - 12/2024 Low back pain Osteoporosis Unsteady gait Abdominal pain Anemia Screening mammogram for breast cancer Medicare annual wellness visit, subsequent Hypercholesterolemia Primary osteoarthritis of right hip Chronic venous insufficiency of lower extremity Heart failure with improved ejection fraction (HFimpEF) GERD (gastroesophageal reflux disease) Thyroid disease pt and daughter do not recall dx on 02/03/2025 Lumbar spondylosis uses pain clinic for pain control Stage 3a chronic kidney disease (CKD) pt and daughter due not recall dx 02/03/2025 ASHD (arteriosclerotic heart disease) Echo: LVEF 60%, RVSP 30-40, , MR, TR - 01/2024, PCI/stent - 11/1999, PCI/stent LCX, PTCA distal LAD - 01/2023, PCI/stent LAD - 11/2023, PCI/stent ostial and distal LAD - 12/2024 Abnormal weight loss Surgical History H/O total hip arthroplasty (~03/2011) left H/O total hip arthroplasty (~06/2021) right History of phacoemulsification of cataract of both eyes with intraocular lens implantation H/O bilateral cataract extraction History of surgery Trigger finger, left 2004 Trigger finger, right 06/2023 Eyelids lifted 2020 CTR right 06/2023 H/O abdominoplasty H/O bilateral breast reduction surgery History of cardiac catheterization (~11/2023) PCI/stent - 11/1999, PCI/stent LCX, PTCA distal LAD - 01/2023, PCI/stent LAD - 11/2023, PCI/stent ostial and distal LAD - 12/2024 Family History Sister Myocardial infarction Father Heart disease Myocardial infarction CHF (congestive heart failure) Hypertension Mother Social History Smoking Status: Never smoker Substance Use Type: None Substance Abuse Comment: socially Meds Medications and Allergies Allergies No Known Allergies Allergy (Verified 02/09/25 18:24) Home Medications aspirin 81 mg tablet,delayed release (Aspir-) 81 mg PO DAILY 11/02/17 [History Confirmed 02/09/25] alendronate 70 mg tablet 70 mg PO QWEEK 01/14/23 [History Confirmed 02/09/25] nitroglycerin 0.4 mg sublingual tablet 0.4 mg sublingual Q5M PRN Chest Pain #30 tabs 01/16/23 [Rx Confirmed 02/09/25] acetaminophen 500 mg tablet (Tylenol Extra Strength) 1,000 mg PO Q6HR PRN pain 11/16/23 [History Confirmed 02/09/25] calcium 500 mg (as carbonate)-vitamin D3 5 mcg (200 unit) tablet 1 tab PO DAILY 11/17/23 [History Confirmed 02/09/25] mirabegron 25 mg tablet,extended release 24 hr (Myrbetriq) 25 mg PO HS 03/02/24 [History Confirmed 02/09/25] clopidogrel 75 mg tablet 75 mg PO DAILY 90 days #90 tabs 10/26/24 [Rx Confirmed 02/09/25] pantoprazole 40 mg tablet,delayed release 40 mg PO DAILY 90 days #90 tabs 10/28/24 [Rx Confirmed 02/09/25] estradiol 0.01% (0.1 mg/gram) vaginal cream 1 appful vaginal DAILY 11/25/24 [History Confirmed 02/06/25] docusate sodium 100 mg capsule 200 mg (2 x 100 mg) PO BID PRN Constipation #0 caps 11/29/24 [Rx Confirmed 02/09/25] losartan 25 mg tablet 25 mg PO DAILY 12/05/24 [History Confirmed 02/09/25] ranolazine 500 mg tablet,extended release,12 hr 500 mg PO BID 12/05/24 [History Confirmed 02/09/25] carvedilol 3.125 mg tablet 3.125 mg PO BID.WITH.MEALS #60 tabs 01/26/25 [Rx Confirmed 02/09/25] atorvastatin 80 mg tablet 80 mg PO QPM 100 days #100 tabs 02/02/25 [Rx Confirmed 02/09/25] hydrochlorothiazide 25 mg tablet 12.5 mg PO DAILY 02/09/25 [History Confirmed 02/09/25] Exam Physical Exam Vital Signs: Temp Pulse Resp BP Pulse Ox O2 Del Method 97.9 F 84 18 181/84 H 95 Room Air 02/09/25 18:26 02/09/25 21:58 02/09/25 21:58 02/09/25 21:58 02/09/25 21:58 02/09/25 21:58 Narrative: Constitutional Ill appearing, not in acute distress, frail and lying in bed Eyes PERRL, conjunctivae normal and no scleral icterus Neck/C-Spine full ROM, thyroid normal and no carotid bruits, no thyromegaly, no lymphadenopathy Chest palpation of chest abnormal (bruised and tender along the left lateral lower ribs) Respiratory breath sounds equal bilaterally, normal respiratory effort and clear to auscultation bilaterally Cardiovascular regular rate, regular rhythm, no murmur, no JVD, peripheral pulses 2+ throughoutand no bruits noted Gastrointestinal abdomen normal to inspection, soft, nontender to palpation, nontender to percussion, normoactive bowel sounds, no hepatosplenomegaly and no masses Extremities no tenderness, full ROM and no joint enlargement ROM C-spine and left shoulder near normal. Neurology no focal motor deficits, no sensory deficits noted, oriented x3 Results - Hospitalist H&P Lab Results Labs: Laboratory Last Values Corrected WBC 6.9 X10E3/uL (3.8-11.6) 02/09/25 20:00 Uncorrected WBC Count 6.9 x10E3/uL (3.8-11.6) 02/09/25 20:00 RBC 4.46 x10E6/uL (3.60-5.00) 02/09/25 20:00 Hgb 14.3 g/dL (11.8-15.4) 02/09/25 20:00 Hct 41.1 % (34.0-46.4) 02/09/25 20: MCV 92.2 fl (80-100) 02/09/25 20:00 MCH 32.0 pg (24.7-34.3) 02/09/25 20: MCHC 34.7 g/dL (32.0-35.0) 02/09/25 20: RDW 13.2 % (11.9-15.3) 02/09/25:00 Plt Count 222 x10E3/uL (150-450) 02/09/25: MPV 7.1 fl (6.3-10.7) 02/09/25 20: Neut % (Auto) 68.7 % (.) 02/09/25 20:00 Lymph % (Auto) 21.6 % (.) 02/09/25: [place] % (Auto) 8.6 % (.) 02/09/25 20: Eos % (Auto) 0.5 % (.) 02/09/25 20:00 Baso % (Auto) 0.6 % (.) 02/09/25 20: Nucleat RBC Rel Count 0.1 /100 WBC (0-0.5) 02/09/25 20:00 Neut # (Auto) 4.8 x10E3/uL (1.8-7.7) 02/09/25 20:00 Lymph # (Auto) 1.5 x10E3/uL (1.00-4.8) 02/09/25 20:00 [place] # (Auto) 0.6 x10E3/uL (0.0-0.8) 02/09/25 20:00 Eos # (Auto) 0.0 x10E3/uL (0.0-0.45) 02/09/25 20: Baso # (Auto) 0.0 x10E3/uL (0.0-0.2) 02/09/25 20:00 Monocyte Dist Width 15.66 % (0.00-20.00) 02/09/25 20: PHA Creatinine Clear 46.26 02/09/25 20:00 Sodium 126 mmol/L (136-145) L 02/09/25 20:00 Potassium 3.9 mmol/L (3.5-5.1) 02/09/25 20:00 Chloride 91 mmol/L (98-107) L 02/09/25 20:00 Carbon Dioxide 26.3 mmol/L (21.0-31.0) 02/09/25 20:00 Anion Gap 12.6 mEq/L (6.0-15.0) 02/09/25 20:00 BUN 15 mg/dL (7-25) 02/09/25 20:00 Creatinine 0.77 mg/dL (0.60-1.20) 02/09/25 20:00 Est GFR (CKD-EPI) > 60.0 mL/Min 02/09/25: Glucose 125 mg/dL (70-100) H 02/09/25 20:00 Calcium 9.7 mg/dL (8.6-10.3) 02/09/25: Total Bilirubin 1.0 mg/dl (0.3-1.0) 02/09/25 20:00 AST 23 U/L (13-39) 02/09/25 20:00 ALT 17 U/L (7-52) 02/09/25 20:00 Alkaline Phosphatase 44 U/L (34-104) 02/09/25 20:00 Troponin I High Sens 15 ng/L (0-15) 02/09/25 20:00 Total Protein 7.3 gm/dL (6.4-8.9) 02/09/25 20: Albumin 4.7 gm/dL (3.5-5.7) 02/09/25 20:00 Globulin 2.6 gm/dL 02/09/25 20:00 Albumin/Globulin Ratio 1.8 02/09/25 20: Lipase 24.0 U/L (11.0-82.0) 02/09/25 20:00 Assessment & Plan Assessment/Plan (1) Unsteadiness: (2) Debility: (3) Hyponatremia: (4) Hypertensive urgency: Plan Nausea and Vomiting secondary to Hypertensive Urgency Unsteadiness and generalized weakness Acute Hyponatremia, likely from GI losses -Admit pt to medical floor with telemetry -For now will start her on IV NS 100 ml/hr for a total of 500 ml, if Na not improved by am, can consult nephrology -Consult neurology for the unsteadiness -PT/OT eval -Will restart pt's oral medications for HTN, and obtain CT head without contrast -Obtain repeat Troponin and CPK -IV compazine 5 mg q6 hours PRN for nausea/vomiting -IV labetalol 5 mg q6 hours PRN for SBP>180 -PT/OT eval -Discussed the plan with pt and daughter, in agreement with the plan -Code status is full, HSQ for DVT PPx, IV pantoprazole 40 mg for GI PPx -Will reconcile medications once list is updated by nursing team -Check BMP at 2 am tomorrow -Obtain uric acid, plasma and urine osmolarity, and urine sodium and UA IP vs OBS Justification Based on differential dx, clinical care plan, and risk of adverse events, if untreated, in my clinical judgement this patient requires an acute care setting as: INPATIENT because of an expectation ofan over 2 midnight stay. Estimated length of stay (# of days): 3 Time Spent With Patient (min): 75 Documented By: Louis Oliveira MD 02/09/25 2240 Signed By: 02/09/25 1759 [facility]07-10-2025 Radiology Diagnostic study [place] [address] CT Scan Report Signed Patient: Atiya Jha MR#: [id number] : 1940 Acct:[id number] Age/Sex: 84 / F ADM Date: 5 Loc: 3T Room: [address] [place] [address] Type: ADM INOo Attending Dr: Louis Oliveira MD Copies to: Louis Oliveira MD~ Ordering Provider: Louis Oliveira MD Date of Service: 02/09/25 CT/CT head/brain wo con: nausea and vomiting CT BRAIN WITHOUT CONTRAST: CLINICAL HISTORY: Fall COMPARISON: None TECHNIQUE: Contiguous axial unenhanced images were obtained through the brain. This CT exam was performed using one or more following dose reduction techniques: Automated exposure control, adjustmentof the mA and/or kV accordingto patient size, or use of iterative reconstruction technique. FINDINGS: There is no evidence of midline shift, intra or extra-axial fluid collection, hemorrhage or CT evidence of acute large vascular distribution stroke. Central involutional changes. Moderate chronic small vessel ischemic disease. Residual contrast does degrade evaluation Evaluation for detection of blood products. Visualized intraorbital contents appear unremarkable. Visualized paranasal sinuses are clear. The surrounding soft tissues are normal. CT/CT head/brain wo con IMPRESSION: NO ACUTE INTRACRANIAL ABNORMALITY. Impression dictated by: Stephen Perez M.D. 02/09/2025 11:03 PM Dictation Location: RADIO-PC-29 Transcribed By: JAI 02/09/252302 Dictated By: Stephen Perez MD 02/09/252301 Signed By: 02/09/252302 [facility] Work Phone: 1(112) 940-985807-10-2025 [facility] [place] [address] [place] [address] CT Scan Report Signed Patient: Atiya Jha MR#: [id number] : 1940 Acct:[id number] Age/Sex: 84 / F ADM Date: 5 Loc: ER Room: Type: [facility] ER Attending Dr: Copies to: Angie Davidson MD~ Ordering Provider: Angie Davidson MD Date of Service: 02/09/25 CT/CT abdomen pelvis w con: llq tenderness s/p fall 2wks ago CT ABDOMEN AND PELVIS WITH INTRAVENOUS CONTRAST: CLINICAL HISTORY: Left lower quadrant tenderness, fall 2 weeks ago COMPARISON: None TECHNIQUE: Spiral images were obtained through the abdomen and pelvis followingthe administration of intravenous contrast. This CT exam was performed using one or more following dose reduction techniques: Automated exposure control, adjustment of the mA and/or kV according to patient size, or use of iterative reconstruction technique. FINDINGS: Lung Bases: [Cardiomegaly. Hypoventilatory changes within the lung bases. Organs: [Cholelithiasis versus sludge.] Otherwise the liver, spleen, adrenals, kidneys, and pancreas are unremarkable. No hydronephrosis. GI: Mild to moderate retained stool. No bowel obstruction. Colonic diverticulosis.[ Pelvis:[Partially obscured by bilateral hip arthroplasty hardware. History. Bladder unremarkable. Uterus absent versus atrophic. No adnexal mass.] Peritoneum/Retroperitoneum:No free air or free fluid. Moderate plaque involvingthe nonaneurysmal aorta.[ Abd wall/Bones:Degenerative changes lower lumbar spine. Anterolisthesis L4-5 and L5-S1 identified measuring 7 mm and 7 mm respectively. Nondisplaced left 12th rib fracture posteriorly.[ CT/CT abdomen pelvis w con IMPRESSION: Nondisplaced left 12th rib fracture. Moderate stool burden. No bowel obstruction. Impression dictated by: Stephen Perez M.D. 02/09/2025 9:43 PM Dictation Location: RADIO-PC-29 Transcribed By: JAI 02/09/252142 Dictated By: Stephen Perez MD 02/09/252138 Signed By: 02/09/252142 [facility] Work Phone: [phone]) 859-151706-30-2025 History of Present illness Narrative* Yoselin Weir, RODOLFO - 01/30/2025 1:00 PM EDT Images from the original note were not included. Subjective Patient ID: Atiya Jha is a 84 y.o. female who presents [...] bed sheets etc.. Medications Current Outpatient Medications: aspirin 81 MG EC tablet, Take 81 [...] CRUSH, CHEW, OR SPLIT, Disp: , Rfl: alendronate (Fosamax) 70 MG tablet, Take 1 [...] 12/2017 L4-L5 BELT ABDOMINOPLASTY 2002 CARDIAC CATHETERIZATION 2004 COLONOSCOPY 2010 nl /Grillis COLONOSCOPY 02/2020 few diverticula /Grillis [...] SURGICAL HISTORY 11/2020 right intrarticular hip injection OK BREAST REDUCTION 1999 TRIGGER FINGER RELEASE 03/02/2019 [...] or corrected. Thank you for your understanding. Yoselin Weir DPM documented in this [facility]06-30-2025 Instructions* Patient Instructions* Yoselin Weir DPM - 01/30/2025 1:00 PM EDT As noted documented in this [facility]06-26-2025 History of Present illness Narrative* Jamia Ndiaye MD - 01/26/2025 10:20 AM EDT Chief Complaint Patient presents with Hypertension 6 week follow up for hypertension Subjective Atiya Jha is a 84 y.o. female Patient here for earlier follow-up. She called recently complaining of intermittent episodes of generalized weakness, lightheadedness and palpitation. This occurred primarily in the upright position and seem to get better when she is sitting down. This seem to be consistent with orthostatic hypotension. Patient admitted to suboptimal oral fluid intake. Her symptoms seem to have worsened since therecent heat wave Assessment 1. Symptoms generalized weakness, lightheadedness and palpitations seem to be consistent with orthostatic hypotension 2. History of hypertension 3. Mild aortic stenosis 4. Recent lab noted and reviewed with her 5. Coronary artery disease with PCI of the LAD Plan 1. I advised her to cut down her Coreg by half 2. Advised her to increase her fluid and salt intake 3. Advised to monitor his symptoms and notify me if there is no improvement Hypertension Associated symptoms include palpitations and shortness of breath. Review of Systems Cardiovascular: Positive for palpitations. Respiratory: Positive for shortness of breath. Neurological: Positive for loss of balance. All other systems reviewed and are negative. Vitals: 01/26/25 1021 01/26/25 1022 BP: 126/66 132/64 BP Location: Left arm Right arm Patient Position: Sitting Sitting Pulse: 72 Weight: 64.4 kg (142 lb) Height: 1.626 m (5' 4 ) EKG done in office today Objective Physical Exam Constitutional: Appearance: Normal appearance. [...] no known allergies. Current Medications Current Outpatient Medications Medication Instructions alendronate (FOSAMAX) 70 mg, Every 7 days aspirin 81 mg, Nightly atorvastatin (LIPITOR) 80 mg, Daily calcium carbonate-vitamin D3 500 mg-5 mcg (200 unit) tablet 1 tablet, Daily carvedilol (COREG) 3.125 mg, oral, 2 times daily (morning and late afternoon) clopidogrel (PLAVIX) 75 mg, oral, Daily docusate sodium (COLACE) 100 mg, 2 times daily estradiol (ESTRACE) 2 g, Daily PRN hydroCHLOROthiazide (HYDRODiuril) 25 mg tablet 0.5 tablets, Daily losartan (COZAAR) 25 mg, oral, Daily mirabegron (MYRBETRIQ) 25 mg, Nightly nitroglycerin (NITROSTAT) 0.4 mg, Every 5 min PRN pantoprazole (ProtoNix) 40 mg EC tablet 1 tablet, Daily before breakfast ranolazine (RANEXA) 500 mg, oral, 2 times daily, Do not crush, chew, or split. Assessment/Plan 1. Orthostatic hypotension 2. Essential hypertension Follow Up In Cardiology carvedilol (Coreg) 3.125 mg tablet 3. Palpitations Follow Up In Cardiology ECG 12 Lead 4. Never smoked cigarettes 5. BMI 24.0-24.9, adult 6. Weakness Scribe Attestation By signing my name below, I, Josefina Dodson LPN, Scribe attest that this documentation has been prepared under the direction and in the presence of MD Casi. Provider Attestation - Scribe documentation All medical record entries made by the Scribe were at my direction and personally dictated by me. Ihave reviewed the chart and agree that the record accurately reflects my personal performance of the history, physical exam, discussion and plan. documented in this [facility] Work Phone: [phone]) 411-263306-26-2025 Instructions* Patient Instructions* Josefina Victoria LPN - 01/26/2025 10:20 AM EDT Please bring all medicines, vitamins, and herbal supplements with you when you come to the office. Prescriptions will not be filled unless you are compliant with your follow up appointments or have a follow up appointment scheduled as per instruction of your physician. Refills should be requested at the time of your visit. Reduce Coreg Follow up Sept follow up documented in this [facility] Work Phone: 1(830) 350-362006-25-2025 History of Present illness Narrative* Nelsy DonaldsonTIFFANY hickman - 01/25/2025 11:00 AM EDT Images from the original note were not included. Subjective Atiya Jha is a 84 y.o. female Chief Complaint Patient presents with Gynecologic Exam Pt presents for 4 mth follow up with pessary. No problems or complaints. 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 Cervical pain Cervicalgia Chest wall pain Cystitis, unspecified with hematuria Female stress incontinence Foot pain GERD (gastroesophageal reflux disease) Globus sensation Heart attack (HCC) 01/2023 Heart attack (HCC) 2024 Hypercholesteremia Hypertension Hypotension due to drugs Inflamed seborrheic keratosis Lichenification and lichen simplex chronicus Lumbago with sciatica, right side Lumbar pain Menopause Mixed hyperlipidemia Osteoarthrosis involving multiple sites Osteopenia Osteoporosis Other bursitis of hip, right hip Other cystitis with hematuria Plantar fasciitis Postmenopausal state Presence of left artificial hip joint Primary osteoarthritis of right hip Pure hypercholesterolemia Radicular pain Recurrent cystitis Rhus dermatitis Shingles Skin tag Solitary pulmonary nodule Status post total hip replacement, right Unspecified osteoarthritis, unspecified site Urgency of urination Urinary tract infection Vertigo Vitamin D deficiency Past Surgical History: Procedure Laterality Date AMB EPIDURAL STEROID INJECTION 12/2017 L4-L5 BELT ABDOMINOPLASTY 2002 CARDIAC CATHETERIZATION 2003 COLONOSCOPY 2009 nl /[place] COLONOSCOPY 02/2020 few diverticula /[facility]illis CORONARY ANGIOPLASTY [...] SURGICAL HISTORY 11/2020 right intrarticular hip injection OK BREAST REDUCTION 1999 TRIGGER FINGER RELEASE 03/02/2019 [...] 1 Obstetric Comments Pap 05/07/22- Neg Mammogram 07/11/24- Neg ([place]) Dexa 07/15/24- spine normal, L forearm osteoporosis ([place]) Colonoscopy 2019 ([place]) Review of Systems All negative unless documented in treatment Objective Visit Vitals BP 108/66 Ht 5' 5 Wt 143 lb LMP (LMP Unknown) BMI 23.80 kg/m OB Status Postmenopausal Smoking Status Never BSA 1.73 m No Known Allergies Physical Exam Constitutional: Appearance: Normal appearance. Genitourinary: Bladder and rectum normal. Right Labia: rash and skin changes (skin changes consistent with lichen sclerosus). Right Labia: No tenderness, lesions or Bartholin's cyst. Left Labia: skin changes (skin changes consistent with lichen sclerosus) and rash. Left Labia: No tenderness, lesions or Bartholin's cyst. Vulva exam comments: Irritation c/w lichen sclerosus. Vaginal granulation tissue (Mild posterior vaginal erythema [...] N95.2 Patient presents for pessary maintenance. Currently has size 4 ring with support. Uses Estradiol vaginal cream when she remembers. Small area of granulation tissue noted, treated with silver nitrate.Large urethral caruncle noted on exam. She will return in 4 months for pessary maintenance. Entered by Nelsy Merino LPN acting as scribe for Dr. Jordan Wisdom. Signature: Nelsy Merino LPN The documentation recorded by the scribe accurately reflects the service(s) I personally performed and the decisions I made. Signature: Jordan Wisdom, DO Assessment & Plan documented in this encounterWright Memorial [id number] History of Present illness Narrative* SHANNAN Mitchell - 01/10/2025 11:30 AM EDTAssociated Order(s): L Inj/Asp: R knee Post-Procedure Diagnose(s): Arthritis of right knee Images from the original note were not included. Orthopedic Office note: NAME: Atiya Jha : 1940 (JULIO W/HALIE, DR SUAZO) RT KNEE PAIN - PAIN SINCE 2018, [facility]I. INCREASED PAIN ~ 1 MTH. XRAY TODAY EPIC 01/10/25 XRAY EPIC 06/01/23 XRAY EXA 06/13/20 ASPHALT MIXER BRACE WALKING SLOWLY WITH A CANE. PAIN ANTERIOR AND POSTERIOR. +TYL. USES A RUB ON CREAM. +SWELLING. BURNING THROUGHOUT THE NIGHT. DENIES POPPING, GRINDING. HAS HAD ONE TIME WHERE HER KNEE GAVE OUT. WAKES AT HS. TRIED KNEE BRACE, CAUSED INCREASED PAIN POSTERIOR. HAD A HEART ATTACK A COUPLE MONTHS AGO, DOING PHYSICAL THERAPY AT [facility]. Knee Musculoskeletal Exam Gait Antalgic: right Inspection Leg length disparity: no discrepancy Right Erythema: none Effusion: mild Edema: none Ecchymosis: none Deformity: none Alignment: valgus Palpation Right Right knee palpation is unremarkable. Increased warmth: none Masses: none Crepitus: patellofemoral and lateral Tenderness: present Lateral joint line: moderate Patella: mild Range of Motion Right Right knee range of motion is normal and full. Active extension: 0 Passive extension: 0 Active flexion: 120 Passive flexion: 120 Strength Right Right knee strength is normal. Extension: 4/5. Extension is affected by pain. Flexion: 4/5. Flexion is affected by pain. Instability Right Instability signs: none - stable Anterior drawer: normal Neurovascular Right Right knee neurovascular exam is normal. Pulses - PT: normal Posterior tibial: 2+ Capillary refill: warm and well-perfused Special Signs Right Right knee special signs are normal. Patellar apprehension: none General Constitutional: appears stated age Labored breathing: no Psychiatric: normal mood and affect Neurological: alert Skin: intact Lymphadenopathy: none Orders Placed This Encounter Procedures L Inj/Asp This order was created via procedure documentation XR knee 1 or 2 views right Reason for exam:: pain L Inj/Asp: R knee on 01/10/2025 12:05 PM Indications: pain Details: 22 G needle, anterolateral approach Medications: 40 mg methylPREDNISolone acetate 40 MG/ML; 2 mL bupivacaine PF 0.5 % Outcome: tolerated well, no immediate complications E UTILIZING ASEPTIC TECHNIQUE PT GIVEN INJECTION IN RIGHT KNEE, NEUROVASC INTACT S/P INJ, TOLERATEDWELL Procedure, treatment alternatives, risks and benefits explained, specific risks discussed. Consent was given by the patient. Patient was prepped and draped in the usual sterile fashion. Results - Imaging: - X-rays of the right knee show grossly stable condition with only mild progression from previous x-rays done in 2019 ICD-10-CM 1. Arthritis of right knee M17.11 2. Acute pain of right knee M25.561 XR knee 1 or 2 views right Assessment & Plan Right knee pain She reports pain in the lateral joint line since starting cardiac rehab, with no injury noted. X-rays discussed and appear grossly stable with only mild progression from previous x-rays done in 2019.She uses a cane for ambulation due to a previous right hip replacement and associated weakness. Sherecently had a cardiac event and is on blood thinners. Treatment plan: A cortisone injection was administered today after discussing the risks and benefits. Low-impact exercises, such as biking, were recommended to be guided through cardiac rehab. Follow-up: She will follow up in 4 months to reassess progress. PROCEDURE Procedure Performed Cortisone injection administered after discussing the risks and benefits. Questions answered in laymen terms at the bedside. The diagnosis, home exercise plan and any ongoing restrictions/ recommendations reviewed. If unable to be reached in office, I recommend evaluation at nearest Emergency Room if any symptoms worsened or new symptoms develop for requiring urgent evaluation. Visit was preformed using [employer] speech recognition. documented in this encounterWright Memorial [id number] History of Present illness Narrative* Jamia Ndiaye MD - 12/09/2024 11:30 AM EDT Chief Complaint Patient presents with Follow-up TCM Subjective Atiya Jha is a 84 y.o. female HPI Patient is here for follow-up from recent hospitalization. She presented last week with symptoms ofchest pain and acute coronary syndrome. Cardiac catheterization showed severe ostial LAD disease. Recommendation was to evaluate the patient for high risk PCI versus bypass surgery. She was transferred to [facility] . I reviewed the case with Dr. Howard. She was seen by dimensional cardiology and cardiac surgery and and eventually underwent successful high risk PCI to the ostial LAD with excellent result. Since her discharge patient denies chest pain or shortness of breath but admits to symptoms offatigue and tiredness. She denies lightheadedness, dizziness or syncope. Assessment 1. Coronary artery disease with prior PCI to the proximal LAD and circumflex with recent presentation with acute coronary syndrome and progression of proximal/ostial LAD disease. She underwent high risk PCI by Dr. Howard with excellent result with improvement of her symptoms. 2. Mixed hyperlipidemia 3. Mild aortic stenosis 4. Previous documentation of mild LV systolic dysfunction on heart cath showed LVEF around 45% echoshowed EF around 50 to 50 to 55% 5. Hypertension 6. BMI 25 7. Symptoms of fatigue Plan 1. I advised the patient to continue present medical regimen 2. Continue with aggressive approach risk factor modification 3. I referred her for cardiac rehab 4. I reviewed her recent hospitalization record 5. Advised to monitor her blood pressure closely 6. I will see her back in 3 to 4-month follow-up Review of Systems Neurological: Positive for light-headedness. All other systems reviewed and are negative. Vitals: 12/09/24 1148 BP: 110/60 BP Location: Left arm Patient Position: Sitting Pulse: 76 Weight: 65.3 kg (144 lb) Height: 1.6 m (5' 3 ) Objective Physical Exam Constitutional: Appearance: Normal appearance. HENT: Nose: Nose normal. Neck: Vascular: No carotid bruit. Cardiovascular: Rate and Rhythm: Normal rate. Pulses: Normal pulses. Heart sounds: Murmur heard. Systolic murmur is present with a grade of 2/6. Pulmonary: Effort: Pulmonary effort is normal. Abdominal: [...] no known allergies. Current Medications Current Outpatient Medications Medication Instructions alendronate (FOSAMAX) 70 mg, Every 7 days aspirin 81 mg, Nightly atorvastatin (LIPITOR) 80 mg, Daily calcium carbonate-vitamin D3 500 mg-5 mcg (200 unit) tablet 1 tablet, Daily carvedilol (COREG) 6.25 mg, oral, 2 times daily (morning and late afternoon) clopidogrel (PLAVIX) 75 mg, oral, Daily docusate sodium (COLACE) 100 mg, 2 times daily estradiol (ESTRACE) 2 g, Daily PRN hydroCHLOROthiazide (HYDRODiuril) 25 mg tablet 0.5 tablets, Daily losartan (COZAAR) 25 mg, oral, Daily mirabegron (MYRBETRIQ) 25 mg, Nightly nitroglycerin (NITROSTAT) 0.4 mg, Every 5 min PRN pantoprazole (ProtoNix) 40 mg EC tablet 1 tablet, Daily before breakfast ranolazine (RANEXA) 500 mg, oral, 2 times daily, Do not crush, chew, or split. Assessment/Plan 1. Two-vessel coronary artery disease Referral to Cardiac Rehab 2. Mixed hyperlipidemia 3. Mild aortic stenosis 4. History of PTCA 5. Essential hypertension 6. NSTEMI (non-ST elevated myocardial infarction) (Multi) Referral to Cardiac Rehab 7. Congestive heart failure, NYHA class 2 and ACC/AHA stage C 8. BMI 25.0-25.9,adult 9. Never smoked cigarettes Scribe Attestation By signing my name below, I, Mandy Montoya LPN, Scribe attest that this documentation has been prepared under the direction and in the presence of MD Casi. Provider Attestation - Scribe documentation All medical record entries made by the Scribe were at my direction and personally dictated by me. Ihave reviewed the chart and agree that the record accurately reflects my personal performance of the history, physical exam, discussion and plan. documented in this [facility] Work Phone: [phone]) 453-647605-09-2025 Instructions* Patient Instructions* Mandy Holland LPN - 12/09/2024 11:30 AM EDT Please bring all medicines, vitamins, and herbal supplements with you when you come to the office. Prescriptions will not be filled unless you are compliant with your follow up appointments or have a follow up appointment scheduled as per instruction of your physician. Refills should be requested at the time of your visit. BMI was above normal measurement. Current weight: 65.3 kg (144 lb) Weight change since last visit (-) denotes wt loss 2.91 lbs Weight loss needed to achieve BMI 25: 3.2 Lbs Weight loss needed to achieve BMI 30: -25 Lbs Provided instructions on dietary changes. Cardiac rehab encouraged. Check home blood pressure 1-2 times a week. * Attachments The following attachments cannot be sent through Care Everywhere. * Heart Healthy Diet (Mauritanian) [facility] Phone: 1(772) 918-748605-03-2025 Plan of care note* Care Plan - Jennifer Calderón RN - 12/03/2024 10:30 AM EDT The clinical goals for the shift include Patient will rejmain free from injury throughout entire shift, [facility]05-03-2025 Miscellaneous Notes* Care Plan - Jennifer Calderón RN - 12/03/2024 10:30 AM EDT The clinical goals for the shift include Patient will rejmain free from injury throughout entire shift, * Significant Event - Mariajose Rendon RN - 12/02/2024 3:30 PM EDT Pt transported to [address] [place] [address] via bed. Charting/care continued on unit. * Significant Event - Mariajose Rendon RN - 12/02/2024 2:56 PM EDT Yellow folder given to Pt containing: Post PCI discharge instructions/restrictions, Plavix education, cardiac rehab referral, and stent/vascade card. This information was reviewed with Pt and family,they answer follow up questions correctly. Right groin site remains soft and stable with no hematoma or oozing. * Significant Event - Mariajose Rendon RN - 12/02/2024 2:22 PM EDT HOB increased to 30 degrees, right groin site remains soft and stable with no hematoma or oozing. Pt sitting up drinking ice water, she declines food at this time. * Significant Event - Mariajose Rendon RN - 12/02/2024 2:05 PM EDT Leeann Tejada CNP in room speaking with Pt and family. * Significant Event - Mariajose Rendon RN - 12/02/2024 1:27 PM EDT Upon arrival to unit focused assessment performed and WDL. Right femoral site soft and stable with no hematoma or oozing. Pt denies dizziness/lightheadedness/pain. Educated on current restrictions r/t right femoral arterial puncture. EKG paged to bedside. Called [facility] to notify them to send family down. * Post-Procedure Note - Ann Howard MD - 12/02/2024 12:30 PM EDT Physician Transition of Care Summary Invasive Cardiovascular Lab Procedure Date: 12/02/2024 Attending: * Ann Howard - Primary Resident/Fellow/Other Tool Repairer Bench: Surgeons and Role: * No surgeons found with a matching role * Indications: Pre-op Diagnosis * NSTEMI (non-ST elevated myocardial infarction) (Multi) [I21.4] Post-procedure diagnosis: Post-op Diagnosis * NSTEMI (non-ST elevated myocardial infarction) (Multi) [I21.4] Procedure(s): PCI OLE Stent- Coronary 38512 - OK PRQ TRLUML CORONARY STENT W/ANGIO ONE ART/BRNCH Procedure Findings: 99% stenosis of ostial LAD including distal left main, successful PTCA drug- eluting stent of ostialLAD and distal left main Description of the Procedure: PTCA drug-eluting stent of ostial LAD and distal left main Complications: None Stents/Implants: Implants Stent Stent, Ananda Payne Ole, 2.50 X 15rx - [id number] - Implanted Inventory item: STENT, ANANDA FRONTIER OLE, 2.50 X 15RX Model/Cat number: [id number] Superintendent Land[employer] Operations: [employer] Lot number: [id number] As of 12/02/2024 Status: Implanted Anticoagulation/Antiplatelet Plan: Dual antiplatelet therapy and intravenous heparin, Plavix load Estimated Blood Loss: 1 mL Anesthesia: Moderate Sedation Anesthesia Staff: No anesthesia staff entered. Any Specimen(s) Removed: No specimens collected during this procedure. Disposition: Dual antiplatelet therapy, follow-up with primary assorter in [place] Electronically signed by: Ann Howard MD, 12/02/2024 1:02 PM * Pre-Sedation Documentation - Ann Howard MD - 12/02/2024 12:14 PM EDT Sedation Plan ASA 3 Mallampati class: III. Risks, benefits, and alternatives discussed with patient. * Documentation Clarification Note - Nir Min MD - 12/01/2024 8:15 AM EDT PATIENT: ATIYA JHA : 1940 ADMIT DATE: 11/29/2024 10:53 AM DISCH DATE: RESPONDING PROVIDER #: [id number] PROVIDER RESPONSE TEXT: Chronic Diastolic Congestive Heart Failure CDI QUERY TEXT: Clarification Instruction: Based on your assessment of the patient and the clinical information, please provide the requested documentation by clicking on the appropriate radio button and enter any additional information if prompted. Question: Please further clarify the type and acuity of congestive heart failure When answering this query, please exercise your independent professional judgment. The fact that a question is being asked, does not imply that any particular answer is desired or expected. The patient's clinical indicators include: Clinical Information: Pt transferred from osh for nstemi Clinical Indicators: Per the cards consult note dated 11/30/24 - Echo 11/25/2024 EF 55% Congestive heart failure, NYHA class 2 and ACC/AHA stage C Treatment: resume home med of HCTZ half tab po daily Risk Factors: htn, cad Options provided: -- Chronic Diastolic Congestive Heart Failure -- Other - I will add my own diagnosis -- Refer to Clinical Documentation Reviewer Query created by: Thiago Grimaldo on 12/01/2024 8:10 AM Electronically signed by: NIR MIN MD 12/01/2024 8:15 AM * Care Plan - Magdalene Limon RN - 12/01/2024 3:15 AM EDT The patient's goals for the shift include remaining free from injury and maintaining hemodynamic stability. The clinical goals for the shift include pt will be free from chest pain / pressure throughout shift. Over the shift, the patient did make progress toward the following goals. Barriers to progression include fatigue. Recommendations to address these barriers include rest. * Care Plan - Cecilia Garcia RN - 11/30/2024 10:42 AM EDT The patient's goals for the shift include The clinical goals for the shift include pt will be free from chest pain / pressure throughout shift Over the shift, the patient did not make progress toward the following goals. Barriers to progression include testing and procedure/ surgery. Recommendations to address these barriers include testingmedications and montioring. documented in this [facility] Work Phone: [phone]) 940-321805-03-2025 History of Present illness Narrative* Chay Manuel DO - 12/03/2024 10:07 AM EDT [facility] Heart Progress Note Rounding ALEXANDRE/Wellness Trainer: Chay Manuel DO, Primary Wellness Trainer: Dr Ndiaye Date: 12/03/2024 Patient: Atiya Jha Date of : 1940 Admit Date: 11/29/2024 SUBJECTIVE: 12/03/24 Patient is feeling much better. Her weakness has markedly improved. Denies chest pain, dyspnea, palpitations, nausea, vomiting, dizziness, fever, chill, bleeding. 12/02/24 Patient is awake alert and oriented x 3. I did discuss with her at length we did discuss with the cardiothoracic surgery team they deemed that they would recommend high risk PCI. Discussed this was patient she is okay would like to proceed with procedure EKG is normal sinus rhythm no acute changes 12/01/24 Patient is awake and alert and oriented x 3. She states she has been feeling really good she deniesany chest pain or shortness of breath. She is currently still on the heparin drip I answered all ofher questions EKG is normal sinus rhythm no acute changes Right groin soft intact 0 hematoma 0 bruit Telemetry is normal sinus rhythm no ectopy Echo ejection fraction 50 to 55% Mild aortic stenosis Mild mitral regurg VITALS: Vitals: 12/02/24 2314 12/03/24 0333 12/03/24 0739 12/03/24 0943 BP: 107/53 119/58 118/68 BP Location: Right arm Patient Position: Lying Pulse: 60 58 67 Resp: 16 Temp: 36.1 C (97 F) 36.9 C (98.4 F) 36.6 C (97.9 F) TempSrc: Temporal SpO2: 98% 93% 93% Weight: Height: 1.651 m (5' 5 ) Intake/Output Summary (Last 24 hours) at 12/03/2024 1007 Last data filed at 12/02/2024 1302 Gross per 24 hour Intake -- Output 1 ml Net -1 ml Wt Readings from Last 4 Encounters: 12/02/24 64 kg (141 lb 1.5 oz) 11/28/24 64 kg (141 lb 1.5 oz) 10/26/24 67.6 kg (149 lb) 05/30/24 65.5 kg (144 lb 6.4 oz) CURRENT HOSPITAL MEDICATIONS: Scheduled Medications[1] Continuous Medications[2] Current Outpatient Medications Medication Instructions alendronate (FOSAMAX) 70 mg, oral, Every 7 days, Take in the morning with a full glass of water, andrew empty stomach, and do not take anything else by mouth or lie down for the next 30 min. aspirin 81 mg, Nightly atorvastatin (LIPITOR) 80 mg, oral, Daily calcium carbonate-vitamin D3 500 mg-5 mcg (200 unit) tablet 1 tablet, oral, Daily carvedilol (COREG) 6.25 mg, oral, 2 times daily (morning and late afternoon) cholecalciferol (VITAMIN D-3) 1,000 Units, oral, Daily RT clopidogrel (PLAVIX) 75 mg, oral, Daily docusate sodium (COLACE) 100 mg, oral, 2 times daily estradiol (ESTRACE) 2 g, vaginal, Daily PRN hydroCHLOROthiazide (HYDRODiuril) 25 mg tablet 0.5 tablets, oral, Daily irbesartan (AVAPRO) 75 mg, Nightly [START ON 12/04/2024] losartan (COZAAR) 25 mg, oral, Daily mirabegron (MYRBETRIQ) 25 mg, oral, Nightly nitroglycerin (NITROSTAT) 0.4 mg, sublingual, Every 5 min PRN, Up to 3 doses pantoprazole (ProtoNix) 40 mg EC tablet 1 tablet, oral, Daily before breakfast ranolazine (RANEXA) 500 mg, oral, 2 times daily, Do not crush, chew, or split. telmisartan (MICARDIS) 20 mg, oral, Daily, Patient has Not been taking this at home. States she is unsure if she was suppose to continue. PHYSICAL EXAMINATION: GENERAL APPEARANCE: Well developed, well nourished, in no acute distress. CHEST: Symmetric and non-tender. INTEGUMENT: Skin warm and dry, without gross excoriationis or lesions. HEENT: No gross abnormalities of conjunctiva, teeth, gums, oral mucosa NECK: Supple, no JVD, no bruit. Thyroid not palpable. Carotid upstrokes normal. NEURO/PSHCY: Alert and oriented x3; appropriate behavior and responses and responses, grossly normal cerebellar function with normal balance and coordination LUNGS: Clear to auscultation bilaterally; normal respiratory effort. HEART: S1, S2 regular with 2 out of 6 systolic murmur ABDOMEN: Soft, nontender, no palpable hepatosplenomegaly, no mases, no bruits. Abdominal aorta not noted to be enlarged. EXTREMITIES: Warm with good color, no clubbing or cyanois. There is no edema noted. PERIPHERAL VASCULAR: Pulses present and equally palpable; 2+ throughout. No femoral bruits LAB DATA: CBC: Results from last 7 days Lab Units 12/03/24 0612/02/24 0559 12/01/24 0537 WBC AUTO x10*3/uL 6.9 6.4 6.0 RBC AUTO x10*6/uL 3.74* 3.57* 3.55* HEMOGLOBIN g/dL 11.9* 11.4* 11.2* HEMATOCRIT % 35.6* 33.3* 33.7* MCV fL 95 93 95 MCH pg 31.8 31.9 31.5 MCHC g/dL 33.4 34.2 33.2 RDW % 13.0 13.0 12.9 PLATELETS AUTO x10*3/uL 178 171 163 CMP: Results from last 7 days Lab Units 12/03/24 0604 12/02/24 0559 12/01/24 0537 11/30/24 0356 SODIUM mmol/L 136 137 138 138 POTASSIUM mmol/L 4.1 3.9 3.8 3.8 CHLORIDE mmol/L 101 102 102 104 CO2 mmol/L 29 29 27 27 BUN mg/dL 13 16 19 16 CREATININE mg/dL 0.92 0.89 0.91 0.71 GLUCOSE mg/dL 98 101* 100* 107* PROTEIN TOTAL g/dL -- -- -- 6.0* CALCIUM mg/dL 9.2 9.4 9.2 9.3 BILIRUBIN TOTAL mg/dL -- -- -- 0.8 ALK PHOS U/L -- -- -- 42 AST U/L -- -- -- 15 ALT U/L -- -- -- 10 BMP: Results from last 7 days Lab Units 12/03/24 0612/02/2459 12/01/24 0537 SODIUM mmol/L 136 137 138 POTASSIUM mmol/L 4.1 3.9 3.8 CHLORIDE mmol/L 101 102 102 CO2 mmol/L 29 29 27 BUN mg/dL 13 16 19 CREATININE mg/dL 0.92 0.89 0.91 CALCIUM mg/dL 9.2 9.4 9.2 GLUCOSE mg/dL 98 101* 100* Magnesium: Results from last 7 days Lab Units 12/03/24 0604 12/02/24 0559 12/01/24 0537 MAGNESIUM mg/dL 2.01 2.01 1.93 Troponin: Results from last 7 days Lab Units 11/30/24 1838 TROPHS ng/L 65* BNP: Lipid Panel: DIAGNOSTIC TESTING: Cardiac Catheterization Procedure Final Result CT chest wo IV contrast Final Result 1. Normal caliber ascending aorta with the [...] Jonas Baxter 11/30/2024 8:56 AM Dictation workstation: [id number] Lower extremity vein mapping bilateral Final Result Sonographic vein mapping procedure as detailed above MACRO: None Signed by: Jonas Baxter 11/30/2024 8:39 AM Dictation workstation: [id number] Carotid duplex bilateral Final Result Positive for calcific plaque bilaterally of both proximal internal carotid arteries. However no peak systolic velocity elevation to suggest significant stenosis. Less than 50% luminal narrowing. The velocity criteria are extrapolated from diameter data as defined by the Society of Radiologists in Ultrasound Consensus Conference Radiology 2003; 229;340-346. MACRO: None Signed by: Jonas Baxter 11/30/2024 8:23 AM Dictation workstation: [id number] No echocardiogram results found for the past 14 days RADIOLOGY: Cardiac Catheterization Procedure Final Result CT chest wo IV contrast Final Result 1. Normal caliber ascending aorta with the [...] From the Fleischner Society 2017, Radiology. 2017 Jan;284 (1):228-243.) [email or web address] Signed by: Jonas Baxter 11/30/2024 8:56 AM Dictation workstation: [id number] Lower extremity vein mapping bilateral Final Result Sonographic vein mapping procedure as detailed above MACRO: None Signed by: Jonas Baxter 11/30/2024 8:39 AM Dictation workstation: [id number] Carotid duplex bilateral Final Result Positive for calcific plaque bilaterally of both proximal internal carotid arteries. However no peak systolic velocity elevation to suggest significant stenosis. Less than 50% luminal narrowing. The velocity criteria are extrapolated from diameter data as defined by the Society of Radiologists in Ultrasound Consensus Conference Radiology 2003; 229;340-346. MACRO: None Signed by: Jonas Baxter 11/30/2024 8:23 AM Dictation workstation: [id number] PROBLEM LIST Problem List[3] ASSESSMENT: CAD multivessel PCI, s/p stent LAD December 02, 2024 Hypertension Dyslipidemia EF 55% Mild aortic stenosis PLAN: Patient tolerated PCI with without complication. No symptoms of angina. No evidence of heart failure. No symptomatic arrhythmia. Patient stable for discharge and current cardiac medical therapy. Follow-up in office Dr. Ndiaye in 1-2 weeks Of note, this documentation is completed using the [employer] system (voice recognition software). There may be spelling and/or grammatical errors that were not corrected prior to final submission. Please do not hesitate to call with questions. [1] aspirin, 81 mg, oral, Daily atorvastatin, 80 mg, oral, Daily carvedilol, 6.25 mg, oral, BID clopidogrel, 75 mg, oral, Daily [Held by provider] hydroCHLOROthiazide, 12.5 mg, oral, Daily losartan, 25 mg, oral, Daily oxybutynin, 5 mg, oral, BID pantoprazole, 40 mg, oral, Daily before breakfast polyethylene glycol, 17 g, oral, Daily ranolazine, 500 mg, oral, BID [2] [3] Patient Active Problem List Diagnosis Two-vessel coronary artery disease Congestive heart failure, NYHA class 2 and ACC/AHA stage C Essential hypertension Mixed hyperlipidemia History of PTCA Dysuria Weakness Never smoked cigarettes Mild aortic stenosis BMI 24.0-24.9, adult Preop cardiovascular exam NSTEMI (non-ST elevated myocardial infarction) (Multi) * ABDULLAHI Kuo - 12/02/2024 2:28 PM EDT Patient is stable status post PCI under the care of Dr. Howard. Discussed results of procedure withpatient and multiple family members. Pictures provided. Patient underwent successful PCI and drug-eluting stent placed to the distal left main/ostial LAD reducing that 99% lesion down to 0% stenosis.The patient tolerated the procedure well. Please see procedural report for complete details. Patient will continue DAPT with aspirin 81 mg daily and Plavix 75 mg daily. Continue to monitor on telemetry. Possible discharge on 12/03/2024 barring no complications overnight. Outpatient follow-up with has been arranged. Postprocedural activity, restrictions, potential complications, medica tions and future follow-up discussed at length. Multiple questions answered. All verbalized an understanding. * Nir Min MD - 12/02/2024 1:26 PM EDT Atiya Jha is a 84 y.o. female on day 3 of admission presenting with nstemi Subjective Resting in bed Objective Last Recorded Vitals BP 142/73 Pulse 68 Temp 36.4 C (97.5 F) (Temporal) Resp 12 Wt 64 kg (141 lb 1.5 oz) SpO2 100% BMI 23.48 kg/m Intake/Output last 3 Shifts: Intake/Output Summary (Last 24 hours) at 12/02/2024 1326 Last data filed at 12/02/2024 1302 Gross per 24 hour Intake 290 ml Output 1 ml Net 289 ml Scheduled medications Scheduled Medications[1] Continuous medications Continuous Medications[2] PRN medications PRN Medications[3] Physical Exam Gen: NAD HEENT: EOM, MMM CV: RRR, no murmurs rubs or gallops Resp: coarse rhonchi b/l Abdomen: soft, NT,+BS LE: No edema Relevant Results Lab Results Component Value Date WBC 6.4 12/02/2024 HGB 11.4 (L) 12/02/2024 HCT 33.3 (L) 12/02/2024 MCV 93 12/02/2024 PLT 171 12/02/2024 Lab Results Component Value Date GLUCOSE 101 (H) 12/02/2024 CALCIUM 9.4 12/02/2024 NA 137 12/02/2024 K 3.9 12/02/2024 CO2 29 12/02/2024 CL 102 12/02/2024 BUN 16 12/02/2024 CREATININE 0.89 12/02/2024 Assessment/Plan 84 year old female admitted with nstemi -had cath at OSH and unsuccessful PCI, transferred here for further eval, -nitroglycerine as needed for chest pain -discussed with CT surgery and cardiology here and will attempt PCI again today. -continue heparin gtt, needs monitoring ot PTT levels for high risk medication Hx of aortic stenosis Hx of HTN/HLD: statin and coreg and HTZ DVT ppx: heparin gtt Nir Min MD [1] aspirin, 81 mg, oral, Daily atorvastatin, 80 mg, oral, Daily carvedilol, 6.25 mg, oral, BID clopidogrel, 75 mg, oral, Daily heparin, 60 Units/kg, intravenous, Once [Held by provider] hydroCHLOROthiazide, 12.5 mg, oral, Daily losartan, 25 mg, oral, Daily oxybutynin, 5 mg, oral, BID pantoprazole, 40 mg, oral, Daily before breakfast polyethylene glycol, 17 g, oral, Daily ranolazine, 500 mg, oral, BID [2] heparin, 0-4,000 Units/hr, Last Rate: 5 Units/hr (12/01/24 0958) sodium chloride 0.9%, 100 mL/hr, Last Rate: 100 mL/hr (12/02/24 0843) [3] PRN medications: acetaminophen OR acetaminophen OR acetaminophen, heparin, melatonin, nitroglycerin, ondansetron OR ondansetron * ABDULLAHI Rome - 12/02/2024 8:00 AM EDT [facility] Heart Progress Note Rounding ALEXANDRE/Wellness Trainer: ABDULLAHI Rome, Primary Wellness Trainer: Dr Ndiaye Date: 12/02/2024 Patient: Atiya Jha Date of : 1940 Admit Date: 11/29/2024 SUBJECTIVE: 12/02/24 Patient is awake alert and oriented x 3. I did discuss with her at length we did discuss with the cardiothoracic surgery team they deemed that they would recommend high risk PCI. Discussed this was patient she is okay would like to proceed with procedure EKG is normal sinus rhythm no acute changes 12/01/24 Patient is awake and alert and oriented x 3. She states she has been feeling really good she deniesany chest pain or shortness of breath. She is currently still on the heparin drip I answered all ofher questions EKG is normal sinus rhythm no acute changes Right groin soft intact 0 hematoma 0 bruit Telemetry is normal sinus rhythm no ectopy Echo ejection fraction 50 to 55% Mild aortic stenosis Mild mitral regurg VITALS: Vitals: 12/01/24 1943 12/02/24 0415 12/02/24 0701 12/02/24 0727 BP: 131/74 128/60 131/63 BP Location: Left arm Left arm Left arm Patient Position: Lying Lying Lying Pulse: 74 62 56 Resp: 18 18 18 Temp: 37 C (98.6 F) 36.5 C (97.7 F) 35.9 C (96.6 F) TempSrc: Temporal Temporal Temporal SpO2: 93% 97% 94% Weight: 64 kg (141 lb 1.5 oz) Intake/Output Summary (Last 24 hours) at 12/02/2024 0800 Last data filed at 12/02/2024 0415 Gross per 24 hour Intake 50 ml Output 450 ml Net -400 ml Wt Readings from Last 4 Encounters: 12/02/24 64 kg (141 lb 1.5 oz) 11/28/24 64 kg (141 lb 1.5 oz) 10/26/24 67.6 kg (149 lb) 05/30/24 65.5 kg (144 lb 6.4 oz) CURRENT HOSPITAL MEDICATIONS: Scheduled Medications[1] Continuous Medications[2] Current Outpatient Medications Medication Instructions alendronate (FOSAMAX) 70 mg, oral, Every 7 days, Take in the morning with a full glass of water, andrew empty stomach, and do not take anything else by mouth or lie down for the next 30 min. aspirin 81 mg, Nightly atorvastatin (LIPITOR) 80 mg, oral, Daily calcium carbonate-vitamin D3 500 mg-5 mcg (200 unit) tablet 1 tablet, oral, Daily carvedilol (COREG) 6.25 mg, oral, 2 times daily (morning and late afternoon) cholecalciferol (VITAMIN D-3) 1,000 Units, oral, Daily RT clopidogrel (PLAVIX) 75 mg, oral, Daily docusate sodium (COLACE) 100 mg, oral, 2 times daily estradiol (ESTRACE) 2 g, vaginal, Daily PRN hydroCHLOROthiazide (HYDRODiuril) 25 mg tablet 0.5 tablets, oral, Daily irbesartan (AVAPRO) 75 mg, Nightly mirabegron (MYRBETRIQ) 25 mg, oral, Nightly nitroglycerin (NITROSTAT) 0.4 mg, sublingual, Every 5 min PRN, Up to 3 doses pantoprazole (ProtoNix) 40 mg EC tablet 1 tablet, oral, Daily before breakfast telmisartan (MICARDIS) 20 mg, oral, Daily, Patient has Not been taking this at home. States she is unsure if she was suppose to continue. PHYSICAL EXAMINATION: GENERAL APPEARANCE: Well developed, well nourished, in no acute distress. CHEST: Symmetric and non-tender. INTEGUMENT: Skin warm and dry, without gross excoriationis or lesions. HEENT: No gross abnormalities of conjunctiva, teeth, gums, oral mucosa NECK: Supple, no JVD, no bruit. Thyroid not palpable. Carotid upstrokes normal. NEURO/PSHCY: Alert and oriented x3; appropriate behavior and responses and responses, grossly normal cerebellar function with normal balance and coordination LUNGS: Clear to auscultation bilaterally; normal respiratory effort. HEART: S1, S2 regular with 2 out of 6 systolic murmur ABDOMEN: Soft, nontender, no palpable hepatosplenomegaly, no mases, no bruits. Abdominal aorta not noted to be enlarged. MUSCULOSKELETAL: Ambulatory with normal tandem gait. EXTREMITIES: Warm with good color, no clubbing or cyanois. There is no edema noted. PERIPHERAL VASCULAR: Pulses present and equally palpable; 2+ throughout. No femoral bruits LAB DATA: CBC: Results from last 7 days Lab Units 12/02/2455812/01/2453612/01/24 0008 WBC AUTO x10*3/uL 6.4 6.0 6.6 RBC AUTO x10*6/uL 3.57* 3.55* 3.48* HEMOGLOBIN g/dL 11.4* 11.2* 11.2* HEMATOCRIT % 33.3* 33.7* 32.8* MCV fL 93 95 94 MCH pg 31.9 31.5 32.2 MCHC g/dL 34.2 33.2 34.1 RDW % 13.0 12.9 13.1 PLATELETS AUTO x10*3/uL 171 163 152 CMP: Results from last 7 days Lab Units 12/02/2455812/01/2453611/30/24 0356 SODIUM mmol/L 137 138 138 POTASSIUM mmol/L 3.9 3.8 3.8 CHLORIDE mmol/L 102 102 104 CO2 mmol/L 29 27 27 BUN mg/dL 16 19 16 CREATININE mg/dL 0.89 0.91 0.71 GLUCOSE mg/dL 101* 100* 107* PROTEIN TOTAL g/dL -- -- 6.0* CALCIUM mg/dL 9.4 9.2 9.3 BILIRUBIN TOTAL mg/dL -- -- 0.8 ALK PHOS U/L -- -- 42 AST U/L -- -- 15 ALT U/L -- -- 10 BMP: Results from last 7 days Lab Units 12/02/2455812/01/2437 11/30/24 0356 SODIUM mmol/L 137 138 138 POTASSIUM mmol/L 3.9 3.8 3.8 CHLORIDE mmol/L 102 102 104 CO2 mmol/L 29 27 27 BUN mg/dL 16 19 16 CREATININE mg/dL 0.89 0.91 0.71 CALCIUM mg/dL 9.4 9.2 9.3 GLUCOSE mg/dL 101* 100* 107* Magnesium: Results from last 7 days Lab Units 12/02/24 0559 12/01/24 0537 11/30/24 0356 MAGNESIUM mg/dL 2.01 1.93 1.98 Troponin: Results from last 7 days Lab Units 11/30/24 1838 TROPHS ng/L 65* BNP: Lipid Panel: DIAGNOSTIC TESTING: CT chest wo IV contrast Final Result 1. Normal caliber ascending aorta with the [...] Jonas Baxter 11/30/2024 8:56 AM Dictation workstation: [id number] Lower extremity vein mapping bilateral Final Result Sonographic vein mapping procedure as detailed above MACRO: None Signed by: Jonas Baxter 11/30/2024 8:39 AM Dictation workstation: [id number] Carotid duplex bilateral Final Result Positive for calcific plaque bilaterally of both proximal internal carotid arteries. However no peak systolic velocity elevation to suggest significant stenosis. Less than 50% luminal narrowing. The velocity criteria are extrapolated from diameter data as defined by the Society of Radiologists in Ultrasound Consensus Conference Radiology 2003; 229;340-346. MACRO: None Signed by: Jonas Baxter 11/30/2024 8:23 AM Dictation workstation: [id number] Cardiac Catheterization Procedure (Results Pending) No echocardiogram results found for the past 14 days RADIOLOGY: CT chest wo IV contrast Final Result 1. Normal caliber ascending aorta with the [...] Jonas Baxter 11/30/2024 8:56 AM Dictation workstation: [id number] Lower extremity vein mapping bilateral Final Result Sonographic vein mapping procedure as detailed above MACRO: None Signed by: Jonas Baxter 11/30/2024 8:39 AM Dictation workstation: [id number] Carotid duplex bilateral Final Result Positive for calcific plaque bilaterally of both proximal internal carotid arteries. However no peak systolic velocity elevation to suggest significant stenosis. Less than 50% luminal narrowing. The velocity criteria are extrapolated from diameter data as defined by the Society of Radiologists in Ultrasound Consensus Conference Radiology 2003; 229;340-346. MACRO: None Signed by: Jonas Baxter 11/30/2024 8:23 AM Dictation workstation: [id number] Cardiac Catheterization Procedure (Results Pending) PROBLEM LIST Problem List[3] ASSESSMENT: CAD Hypertension Dyslipidemia EF 55% Mild aortic stenosis PLAN: I have personally interviewed and examined the patient. I have personally and independently reviewed labs and diagnostic testing. I have personally verified the elements of the history and physical listed above and changes, if any, are noted. I have personally reviewed the assessment and plan as documented by Daniela Portillo, LA NENA, ALICJA and baljeet. In summary, Mrs. Atiya Jha has a history of atherosclerotic heart disease with previous angioplasty and stenting of the circumflex and LAD. Most recent intervention was on the LAD in November 2023. She has a history of hypertension, mixed hyperlipidemia, and mild aortic stenosis. No history of diabetes mellitus or tobacco use. She was previously noted to have mild LV dysfunction with subsequent studies showing a normal ejection fraction. She was most recently seen by Dr. Jamia Ndiaye for preoperative assessment prior to planned urologic surgery. She was doing well at the time. She has had hematuria and was found to have a growth on her urethra. She held her aspirin and Plavix for a few days in preparation for surgery and subsequently developed recurrent chest discomfort. She was admitted to [facility] and was noted tohave an acute non-STEMI with a troponin level of 700. EKG did not show any acute ST changes. She underwent repeat cardiac catheterization and was found to have ostial stenosis of the left anterior descending artery. It was opted to have her transferred to [facility] for evaluation of possible coronary artery bypass grafting surgery versus high risk PCI. The patient currently is sitting up in a chair and is resting comfortably. No ongoing chest pain. She denies any shortness of breath. Her vital signs are stable. Oxygen saturation 97%. Cardiac rhythm is regular. Lungs are clear. No significant peripheral edema. Lab studies show a normal CBC with exception of hemoglobin 11.3. Comprehensive metabolic profile is normal. EKG shows normal sinus rhythm without acute ST changes. Occasional PVCs. CT scan of the chest shows a right lower lobe pulmonary nodule measuring 6 mm. Cardiothoracic surgery has been consulted. Further recommendations to follow. 12/01/24 Tele monitoring Lipitor 80 mg daily Coreg 6.25 mg p.o. twice daily Hydrochlorothiazide 12.5 mg daily Continue the heparin drip for now Will discuss with cardiothoracic team today 12/02/24 Tele monitoring Aspirin 81 mg daily Plavix 75 mg daily Coreg 6.25 mg p.o. twice daily Ranexa 500 mg p.o. twice daily Lipitor 80 mg daily Cozaar 25 mg daily Hold Hydrochlorothiazide today Plan for left heart catheterization with high risk PCI today discussed at length risk versus benefits verbalized understanding would like to proceed Matt Portillo CNP [facility] Of note, this documentation is completed using the [employer] system (voice recognition software). There may be spelling and/or grammatical errors that were not corrected prior to final submission. Please do not hesitate to call with questions. [1] aspirin, 81 mg, oral, Daily atorvastatin, 80 mg, oral, Daily carvedilol, 6.25 mg, oral, BID clopidogrel, 75 mg, oral, Daily heparin, 60 Units/kg, intravenous, Once hydroCHLOROthiazide, 12.5 mg, oral, Daily oxybutynin, 5 mg, oral, BID pantoprazole, 40 mg, oral, Daily before breakfast polyethylene glycol, 17 g, oral, Daily [2] heparin, 0-4,000 Units/hr, Last Rate: 5 Units/hr (12/01/24 0958) sodium chloride 0.9%, 100 mL/hr [3] Patient Active Problem List Diagnosis Two-vessel coronary artery disease Congestive heart failure, NYHA class 2 and ACC/AHA stage C Essential hypertension Mixed hyperlipidemia History of PTCA Dysuria Weakness Never smoked cigarettes Mild aortic stenosis BMI 24.0-24.9, adult Preop cardiovascular exam NSTEMI (non-ST elevated myocardial infarction) (Multi) * ABDULLAHI Diaz - 12/01/2024 12:20 PM EDT Atiya Jha is a 84 y.o. female on day 2 of admission presenting with NSTEMI (non-ST elevated myocardial infarction) (Multi). Subjective No acute over night events, remains afebrile, normotensive, maintaining adequate oxygen saturation on RA. Heparin infusing with therapeutic assays. Denies current chest pain and shortness of breath. Has been ambulating in [place] without complication. Imaging reviewed in detail with interventional cardiology and Dr. Todd. Plan is for high risk PCI with Dr. Howard tomorrow. Patient updated and all questions answered. Objective Physical Exam Vitals and nursing note reviewed. Constitutional: Appearance: Normal appearance. HENT: Head: Normocephalic and atraumatic. Eyes: Pupils: Pupils are equal, round, and reactive to light. Pupils are equal. Cardiovascular: Rate and Rhythm: Normal rate and regular rhythm. Pulmonary: Effort: Pulmonary effort is normal. Breath sounds: Normal breath sounds. Chest: Chest wall: No tenderness. Abdominal: General: Abdomen is flat. Palpations: Abdomen is soft. Genitourinary: Comments: Voiding freely Skin: General: Skin is warm and dry. Neurological: General: No focal deficit present. Mental Status: She is alert and oriented to person, place, and time. Psychiatric: Attention and Perception: Attention normal. Mood and Affect: Mood normal. Speech: Speech normal. Behavior: Behavior is cooperative. Last Recorded Vitals Blood pressure 124/60, pulse 65, temperature 36 C (96.8 F), temperature source Temporal, resp. rate18, SpO2 95%. Intake/Output last 3 Shifts: I/O last 3 completed shifts: In: 711.4 [P.O.:580; I.V.:131.4] Out: - Relevant Results This patient currently has cardiac telemetry ordered; if you would like to modify or discontinue the telemetry order, click here to go to the orders activity to modify/discontinue the order. Scheduled medications Scheduled Medications[1] Continuous medications Continuous Medications[2] PRN medications PRN Medications[3] Results for orders placed or performed during the hospital encounter of 11/29/24 (from the past 24 hours) Heparin Assay Result Value Ref Range Heparin Unfractionated 0.5 See Comment Below for Therapeutic Ranges IU/mL Heparin Assay Result Value Ref Range Heparin Unfractionated 0.5 See Comment Below for Therapeutic Ranges IU/mL Troponin I, High Sensitivity Result Value Ref Range Troponin I, High Sensitivity 65 (HH) 0 - 13 ng/L ECG 12 lead Result Value Ref Range Ventricular Rate 67 BPM Atrial Rate 67 BPM OK Interval 196 ms QRS Duration 86 ms QT Interval 440 ms QTC Calculation(Bazett) 464 ms P [place] 49 degrees R [place]ba 15 degrees T [place]ba 82 degrees QRS Count 11 beats Q Onset 217 ms P Onset 119 ms P Offset 180 ms T Offset 437 ms QTC Fredericia 456 ms CBC Result Value Ref Range WBC 6.6 4.4 - 11.3 x10*3/uL nRBC 0.0 0.0 - 0.0 /100 WBCs RBC 3.48 (L) 4.00 - 5.20 x10*6/uL Hemoglobin 11.2 (L) 12.0 - 16.0 g/dL Hematocrit 32.8 (L) 36.0 - 46.0 % MCV 94 80 - 100 fL MCH 32.2 26.0 - 34.0 pg MCHC 34.1 32.0 - 36.0 g/dL RDW 13.1 11.5 - 14.5 % Platelets 152 150 - 450 x10*3/uL Heparin Assay, UFH Result Value Ref Range Heparin Unfractionated 0.5 See Comment Below for Therapeutic Ranges IU/mL CBC Result Value Ref Range WBC 6.0 4.4 - 11.3 x10*3/uL nRBC 0.0 0.0 - 0.0 /100 WBCs RBC 3.55 (L) 4.00 - 5.20 x10*6/uL Hemoglobin 11.2 (L) 12.0 - 16.0 g/dL Hematocrit 33.7 (L) 36.0 - 46.0 % MCV 95 80 - 100 fL MCH 31.5 26.0 - 34.0 pg MCHC 33.2 32.0 - 36.0 g/dL RDW 12.9 11.5 - 14.5 % Platelets 163 150 - 450 x10*3/uL Basic Metabolic Panel Result Value Ref Range Glucose 100 (H) 74 - 99 mg/dL Sodium 138 136 - 145 mmol/L Potassium 3.8 3.5 - 5.3 mmol/L Chloride 102 98 - 107 mmol/L Bicarbonate 27 21 - 32 mmol/L Anion Gap 13 10 - 20 mmol/L Urea Nitrogen 19 6 - 23 mg/dL Creatinine 0.91 0.50 - 1.05 mg/dL eGFR 62 >60 mL/min/1.73m*2 Calcium 9.2 8.6 - 10.3 mg/dL Magnesium Result Value Ref Range Magnesium 1.93 1.60 - 2.40 mg/dL Heparin Assay Result Value Ref Range Heparin Unfractionated 0.4 See Comment Below for Therapeutic Ranges IU/mL ECG 12 Lead Result Value Ref Range Ventricular Rate 61 BPM Atrial Rate 61 BPM OK Interval 168 ms QRS Duration 88 ms QT Interval 438 ms QTC Calculation(Bazett) 440 ms P [place]ba 27 degrees R Warba 50 degrees T Warba 85 degrees QRS Count 10 beats Q Onset 217 ms P Onset 133 ms P Offset 176 ms T Offset 436 ms QTC Fredericia 440 ms ECG 12 Lead Result Date: 12/01/2024 Normal sinus rhythm Normal ECG When compared with ECG of 30-NOV-2024 18:38, (unconfirmed) Aberrant conduction is no longer Present ECG 12 lead Result Date: 11/30/2024 Sinus rhythm with Premature atrial complexes with Aberrant conduction Otherwise normal ECG When compared with ECG of 30-NOV-2024 08:54, (unconfirmed) Premature ventricular complexes are no longer Present Aberrant conduction is now Present ECG 12 Lead Result Date: 11/30/2024 Sinus rhythm with occasional Premature ventricular complexes Otherwise normal ECG No previous ECGs available CT chest wo IV contrast Result Date: 11/30/2024 Interpreted By: Jonas Baxter, STUDY: CT CHEST WO IV CONTRAST; 11/29/2024 5:38 pm INDICATION:Signs/Symptoms:pre-op cardiac surgery; assess ascending for size and atherosclerosis. COMPARISON: None. ACCESSION NUMBER(S): [id number] ORDERING CLINICIAN: IRINEO LAUGHLIN TECHNIQUE: Helical data acquisition of the chest was obtained without IV contrast material. Images were reformatted in axial, coronal, and sagittal planes. FINDINGS: LUNGS AND AIRWAYS: The trachea and central airways are patent.No endobronchial lesion. In the posterolateral right lower [...] unremarkable. 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 Chest wall soft tissues otherwise unremarkable. There aredegenerative changes in the thoracic spine. There is no convincing evidence for thoracic aggressiveosteolytic or osteoblastic lesion. 1. Normal caliber ascending aorta with the only ascending aortic calcifications noted at the sino-tubular junction. 2. There is a noncalcified parenchymal right lower lobe pulmonary nodule measuring 6 mm which will warrant follow-up per Fleischner guidelines. There is also pleural-based opacity thewhich has a more flattened appearance though does [...] Jonas Baxter 11/30/2024 8:56 AM Dictation workstation: [id number] Lower extremity vein mapping bilateral Result Date: 11/30/2024 Interpreted By: Jonas Baxter, STUDY: [facility] LOWER EXTREMITY VEIN MAPPING BILATERAL; ; 11/29/2024 5:34 pm INDICATION: Signs/Symptoms:pre-op CABG. ,Z01.810 Encounter for preprocedural cardiovascular examination,Z01.818 Encounter for other preprocedural examination,I24.81 Acute coronary microva scular dysfunction (Multi) COMPARISON: None. ACCESSION NUMBER(S): [id number] ORDERING CLINICIAN: IRINEO LAUGHLIN TECHNIQUE: Sonographic lower [...] x 0.34; distal 0.23 x 0.33 Right lessersaphenous Vein: Proximal 0.08 x 0.10; mid 0.14 x 0.09; distal 0.10 x 0.19 Left great saphenous veinabove knee: Proximal 0.81 x 1.00; mid 0.31 x 0.35; distal 0.30 x 0.29 Left great saphenous vein below knee: Proximal 0.25 x 0.46; mid 0.27 x 0.37; distal 0.13 x 0.16 Left lesser saphenous Vein: Proximal 0.23 x 0.30; mid 0.10 x 0.11; distal 0.17 x 0.26 Sonographic vein mapping procedure as detailed above MACRO: None Signed by: Jonas Baxter 11/30/2024 8:39 AM Dictation workstation: [id number] Carotid duplex bilateral Result Date: 11/30/2024 Interpreted By: Jonas Baxter, STUDY: [facility] US CAROTID ARTERY DUPLEX BILATERAL; 11/29/2024 5:34 pm INDICATION: Signs/Symptoms:pre-op cardiac surgery. ,Z01.810 Encounter for preprocedural cardiovascular examination,Z09 Encounter for follow-up examination after completed treatment for conditionsother than malignant neoplasm COMPARISON: None. ACCESSION NUMBER(S): [id number] ORDERING CLINICIAN: IRINEO LAUGHLIN TECHNIQUE: Vascular ultrasound [...] cm/s. ICA 91.0 cm. ECA 143.2 cm/s. Theratio of the peak systolic velocity of the right ICA/CCA is 1.1. RIGHT VERTEBRAL ARTERY: Antegrade flow LEFT: On the left there is calcific plaque at the proximal internal carotid artery without subst antial luminal narrowing or peak systolic velocity elevation.. The peak systolic velocities are as follows: LEFT SIDE PEAK SYSTOLIC VELOCITY TABLE: CCA 80.3 cm/s,17.7 cm/s. ICA 153.3. ECA 73.6 cm/s. The ratio of the peak systolic velocity of the left ICA/CCA is 1.9. LEFT VERTEBRAL ARTERY: Antegradeflow Positive for calcific plaque bilaterally of both proximal internal carotid arteries. However no peak systolic velocity elevation to suggest significant stenosis. Less than 50% luminal narrowing. The velocity criteria are extrapolated from diameter data as defined by the Society of Radiologists in Ul trasound Consensus Conference Radiology 2003; 229;340-346. MACRO: None Signed by: Jonas Baxter 11/30/2024 8:23 AM Dictation workstation: [id number] Assessment & Plan NSTEMI (non-ST elevated myocardial infarction) (Multi) #NSTEMI #CAD (Hx of prior PCI of the proximal LAD and left Circumflex in 2023) #HLD #HTN On 11/28/24 patient underwent left cardiac catheterization with Dr. Ndiaye. Finding the procedure revealing severe coronary artery disease as evident by 40 to 50% distal left main, subtotal occlusion of the ostial LAD with mild to moderate disease of the mid LAD and left circumflex with good post PCI result of the proximal circumflex. Mild LV systolic dysfunction with LVEF around 50% with anterior wall hypokinesis. Recommendations for aggressive coronaries factor modification and referral [facility] for evaluation for either high risk PCI of the distal left main and proximal LAD versus two-vessel bypass surgery. -Imaging reviewed in detail with interventional cardiology and Dr. Todd. Plan is for high risk PCIwith Dr. Howard tomorrow. Patient updated and all questions answered. -Cardiology following; appreciate recommendations -Continue Heparin IV -Continue stain -EKG daily #Lung nodule CT scan of the chest shows a right lower lobe pulmonary nodule measuring 6 mm. -Will warrant follow-up per Fleischner guidelines. I spent 45 minutes in the professional and overall care of this patient. Noemi Cisneros APRN-[employer] [1] aspirin, 81 mg, oral, Daily atorvastatin, 80 mg, oral, Daily carvedilol, 6.25 mg, oral, BID clopidogrel, 75 mg, oral, Daily heparin, 60 Units/kg, intravenous, Once hydroCHLOROthiazide, 12.5 mg, oral, Daily oxybutynin, 5 mg, oral, BID pantoprazole, 40 mg, oral, Daily before breakfast polyethylene glycol, 17 g, oral, Daily [2] heparin, 0-4,000 Units/hr, Last Rate: 5 Units/hr (12/01/24 0958) [3] PRN medications: acetaminophen OR acetaminophen OR acetaminophen, heparin, nitroglycerin, ondansetron OR ondansetron * Nir Min MD - 12/01/2024 11:09 AM EDT Atiya Jha is a 84 y.o. female on day 2 of admission presenting with nstemi Subjective Sitting chair no chest pain, had chest pain last night improved with nitroglycerin Objective Last Recorded Vitals BP 124/60 Pulse 65 Temp 36 C (96.8 F) Resp 18 SpO2 95% Intake/Output last 3 Shifts: Intake/Output Summary (Last 24 hours) at 12/01/2024 1109 Last data filed at 12/01/2024 0708 Gross per 24 hour Intake 580 ml Output -- Net 580 ml Scheduled medications Scheduled Medications[1] Continuous medications Continuous Medications[2] PRN medications PRN Medications[3] Physical Exam Gen: NAD HEENT: EOM, MMM CV: RRR, no murmurs rubs or gallops Resp: coarse rhonchi b/l Abdomen: soft, NT,+BS LE: No edema Relevant Results Lab Results Component Value Date WBC 6.0 12/01/2024 HGB 11.2 (L) 12/01/2024 HCT 33.7 (L) 12/01/2024 MCV 95 12/01/2024 PLT 163 12/01/2024 Lab Results Component Value Date GLUCOSE 100 (H) 12/01/2024 CALCIUM 9.2 12/01/2024 NA 138 12/01/2024 K 3.8 12/01/2024 CO2 27 12/01/2024 CL 102 12/01/2024 BUN 19 12/01/2024 CREATININE 0.91 12/01/2024 Assessment/Plan 84 year old female admitted with nstemi -had cath at OSH and unsuccessful PCI, transferred here for further eval, -nitroglycerine as needed for chest pain -seen by cardiology here and CT surgery and will decide best coarse of action, -continue heparin gtt, needs monitoring ot PTT levels for high risk medication Hx of aortic stenosis Hx of HTN/HLD: statin and coreg and HTZ DVT ppx: heparin gtt Nir Min MD [1] atorvastatin, 80 mg, oral, Daily carvedilol, 6.25 mg, oral, BID heparin, 60 Units/kg, intravenous, Once hydroCHLOROthiazide, 12.5 mg, oral, Daily oxybutynin, 5 mg, oral, BID pantoprazole, 40 mg, oral, Daily before breakfast polyethylene glycol, 17 g, oral, Daily [2] heparin, 0-4,000 Units/hr, Last Rate: 5 Units/hr (12/01/24 0958) [3] PRN medications: acetaminophen OR acetaminophen OR acetaminophen, heparin, nitroglycerin, ondansetron OR ondansetron * ABDULLAHI Rome - 12/01/2024 8:48 AM EDT [facility] Heart Progress Note Rounding ALEXANDRE/Wellness Trainer: ABDULLAHI Rome, Primary Wellness Trainer: Dr Ndiaye Date: 12/01/2024 Patient: Atiya Jha Date of : 1940 Admit Date: 11/29/2024 SUBJECTIVE: 12/01/24 Patient is awake and alert and oriented x 3. She states she has been feeling really good she deniesany chest pain or shortness of breath. She is currently still on the heparin drip I answered all ofher questions EKG is normal sinus rhythm no acute changes Right groin soft intact 0 hematoma 0 bruit Telemetry is normal sinus rhythm no ectopy Echo ejection fraction 50 to 55% Mild aortic stenosis Mild mitral regurg VITALS: Vitals: 11/30/24 1920 11/30/24 2329 12/01/24 0323 12/01/24 0708 BP: 120/62 133/62 112/53 129/68 BP Location: Left arm Left arm Left arm Left arm Patient Position: Lying Lying Lying Lying Pulse: 68 62 75 65 Resp: 18 18 18 18 Temp: 35.3 C (95.5 F) 36.5 C (97.7 F) 36 C (96.8 F) 35.2 C (95.4 F) TempSrc: Temporal Temporal Temporal Temporal SpO2: 93% 97% 94% 95% Intake/Output Summary (Last 24 hours) at 12/01/2024 0848 Last data filed at 12/01/2024 0323 Gross per 24 hour Intake 471.38 ml Output -- Net 471.38 ml Wt Readings from Last 4 Encounters: 11/28/24 64 kg (141 lb 1.5 oz) 10/26/24 67.6 kg (149 lb) 05/30/24 65.5 kg (144 lb 6.4 oz) 01/12/24 67.1 kg (148 lb) CURRENT HOSPITAL MEDICATIONS: Scheduled Medications[1] Continuous Medications[2] Current Outpatient Medications Medication Instructions alendronate (FOSAMAX) 70 mg, oral, Every 7 days, Take in the morning with a full glass of water, andrew empty stomach, and do not take anything else by mouth or lie down for the next 30 min. aspirin 81 mg, Nightly atorvastatin (LIPITOR) 80 mg, oral, Daily calcium carbonate-vitamin D3 500 mg-5 mcg (200 unit) tablet 1 tablet, oral, Daily carvedilol (COREG) 6.25 mg, oral, 2 times daily (morning and late afternoon) cholecalciferol (VITAMIN D-3) 1,000 Units, oral, Daily RT clopidogrel (PLAVIX) 75 mg, oral, Daily docusate sodium (COLACE) 100 mg, oral, 2 times daily estradiol (ESTRACE) 2 g, vaginal, Daily PRN hydroCHLOROthiazide (HYDRODiuril) 25 mg tablet 0.5 tablets, oral, Daily irbesartan (AVAPRO) 75 mg, Nightly mirabegron (MYRBETRIQ) 25 mg, oral, Nightly nitroglycerin (NITROSTAT) 0.4 mg, sublingual, Every 5 min PRN, Up to 3 doses pantoprazole (ProtoNix) 40 mg EC tablet 1 tablet, oral, Daily before breakfast telmisartan (MICARDIS) 20 mg, oral, Daily, Patient has Not been taking this at home. States she is unsure if she was suppose to continue. PHYSICAL EXAMINATION: GENERAL APPEARANCE: Well developed, well nourished, in no acute distress. CHEST: Symmetric and non-tender. INTEGUMENT: Skin warm and dry, without gross excoriationis or lesions. HEENT: No gross abnormalities of conjunctiva, teeth, gums, oral mucosa NECK: Supple, no JVD, no bruit. Thyroid not palpable. Carotid upstrokes normal. NEURO/PSHCY: Alert and oriented x3; appropriate behavior and responses and responses, grossly normal cerebellar function with normal balance and coordination LUNGS: Clear to auscultation bilaterally; normal respiratory effort. HEART: S1, S2 regular with 2 out of 6 systolic murmur ABDOMEN: Soft, nontender, no palpable hepatosplenomegaly, no mases, no bruits. Abdominal aorta not noted to be enlarged. MUSCULOSKELETAL: Ambulatory with normal tandem gait. EXTREMITIES: Warm with good color, no clubbing or cyanois. There is no edema noted. PERIPHERAL VASCULAR: Pulses present and equally palpable; 2+ throughout. No femoral bruits LAB DATA: CBC: Results from last 7 days Lab Units 12/01/24 0537 12/01/24 0008 11/30/24 0356 WBC AUTO x10*3/uL 6.0 6.6 5.5 RBC AUTO x10*6/uL 3.55* 3.48* 3.59* HEMOGLOBIN g/dL 11.2* 11.2* 11.3* HEMATOCRIT % 33.7* 32.8* 34.1* MCV fL 95 94 95 MCH pg 31.5 32.2 31.5 MCHC g/dL 33.2 34.1 33.1 RDW % 12.9 13.1 13.2 PLATELETS AUTO x10*3/uL 163 152 147* CMP: Results from last 7 days Lab Units 12/01/24 0537 11/30/24 0356 SODIUM mmol/L 138 138 POTASSIUM mmol/L 3.8 3.8 CHLORIDE mmol/L 102 104 CO2 mmol/L 27 27 BUN mg/dL 19 16 CREATININE mg/dL 0.91 0.71 GLUCOSE mg/dL 100* 107* PROTEIN TOTAL g/dL -- 6.0* CALCIUM mg/dL 9.2 9.3 BILIRUBIN TOTAL mg/dL -- 0.8 ALK PHOS U/L -- 42 AST U/L -- 15 ALT U/L -- 10 BMP: Results from last 7 days Lab Units 12/01/24 0537 11/30/24 0356 SODIUM mmol/L 138 138 POTASSIUM mmol/L 3.8 3.8 CHLORIDE mmol/L 102 104 CO2 mmol/L 27 27 BUN mg/dL 19 16 CREATININE mg/dL 0.91 0.71 CALCIUM mg/dL 9.2 9.3 GLUCOSE mg/dL 100* 107* Magnesium: Results from last 7 days Lab Units 12/01/24 0537 11/30/24 0356 MAGNESIUM mg/dL 1.93 1.98 Troponin: Results from last 7 days Lab Units 11/30/24 1838 TROPHS ng/L 65* BNP: Lipid Panel: DIAGNOSTIC TESTING: CT chest wo IV contrast Final Result 1. Normal caliber ascending aorta with the [...] From the Fleischner Society 2017, Radiology. 2017 Jan;284 (1):228-243.) [id number] Signed by: Jonas Baxter 11/30/2024 8:56 AM Dictation workstation: [id number] Lower extremity vein mapping bilateral Final Result Sonographic vein mapping procedure as detailed above MACRO: None Signed by: Jonas Baxter 11/30/2024 8:39 AM Dictation workstation: [id number] Carotid duplex bilateral Final Result Positive for calcific plaque bilaterally of both proximal internal carotid arteries. However no peak systolic velocity elevation to suggest significant stenosis. Less than 50% luminal narrowing. The velocity criteria are extrapolated from diameter data as defined by the Society of Radiologists in Ultrasound Consensus Conference Radiology 2003; 229;340-346. MACRO: None Signed by: Jonas Baxter 11/30/2024 8:23 AM Dictation workstation: [id number] No echocardiogram results found for the past 14 days RADIOLOGY: CT chest wo IV contrast Final Result 1. Normal caliber ascending aorta with the [...] Jonas Baxter 11/30/2024 8:56 AM Dictation workstation: [id number] Lower extremity vein mapping bilateral Final Result Sonographic vein mapping procedure as detailed above MACRO: None Signed by: Jonas Baxter 11/30/2024 8:39 AM Dictation workstation: [id number] Carotid duplex bilateral Final Result Positive for calcific plaque bilaterally of both proximal internal carotid arteries. However no peak systolic velocity elevation to suggest significant stenosis. Less than 50% luminal narrowing. The velocity criteria are extrapolated from diameter data as defined by the Society of Radiologists in Ultrasound Consensus Conference Radiology 2003; 229;340-346. MACRO: None Signed by: Jonas Rowebrock 11/30/2024 8:23 AM Dictation workstation: [id number] PROBLEM LIST Problem List[3] ASSESSMENT: CAD Hypertension Dyslipidemia EF 55% Mild aortic stenosis PLAN: I have personally interviewed and examined the patient. I have personally and independently reviewed labs and diagnostic testing. I have personally verified the elements of the history and physical listed above and changes, if any, are noted. I have personally reviewed the assessment and plan as documented by Daniela Portillo, LA NENA, ALICJA and baljeet. In summary, Mrs. Atiya Jha has a history of atherosclerotic heart disease with previous angioplasty and stenting of the circumflex and LAD. Most recent intervention was on the LAD in November 2023. She has a history of hypertension, mixed hyperlipidemia, and mild aortic stenosis. No history of diabetes mellitus or tobacco use. She was previously noted to have mild LV dysfunction with subsequent studies showing a normal ejection fraction. She was most recently seen by Dr. Jamia Ndiaye for preoperative assessment prior to planned urologic surgery. She was doing well at the time. She has had hematuria and was found to have a growth on her urethra. She held her aspirin and Plavix for a few days in preparation for surgery and subsequently developed recurrent chest discomfort. She was admitted to [facility] and was noted tohave an acute non-STEMI with a troponin level of 700. EKG did not show any acute ST changes. She underwent repeat cardiac catheterization and was found to have ostial stenosis of the left anterior descending artery. It was opted to have her transferred to [facility] for evaluation of possible coronary artery bypass grafting surgery versus high risk PCI. The patient currently is sitting up in a chair and is resting comfortably. No ongoing chest pain. She denies any shortness of breath. Her vital signs are stable. Oxygen saturation 97%. Cardiac rhythm is regular. Lungs are clear. No significant peripheral edema. Lab studies show a normal CBC with exception of hemoglobin 11.3. Comprehensive metabolic profile is normal. EKG shows normal sinus rhythm without acute ST changes. Occasional PVCs. CT scan of the chest shows a right lower lobe pulmonary nodule measuring 6 mm. Cardiothoracic surgery has been consulted. Further recommendations to follow. 12/01/24 Tele monitoring Lipitor 80 mg daily Coreg 6.25 mg p.o. twice daily Hydrochlorothiazide 12.5 mg daily Continue the heparin drip for now Will discuss with cardiothoracic team today Matt Portillo CNP [facility] Of note, this documentation is completed using the [employer] system (voice recognition software). There may be spelling and/or grammatical errors that were not corrected prior to final submission. Please do not hesitate to call with questions. [1] atorvastatin, 80 mg, oral, Daily carvedilol, 6.25 mg, oral, BID heparin, 60 Units/kg, intravenous, Once hydroCHLOROthiazide, 12.5 mg, oral, Daily oxybutynin, 5 mg, oral, BID pantoprazole, 40 mg, oral, Daily before breakfast polyethylene glycol, 17 g, oral, Daily [2] heparin, 0-4,000 Units/hr, Last Rate: 500 Units/hr (11/30/24 1400) [3] Patient Active Problem List Diagnosis Two-vessel coronary artery disease Congestive heart failure, NYHA class 2 and ACC/AHA stage C Essential hypertension Mixed hyperlipidemia History of PTCA Dysuria Weakness Never smoked cigarettes Mild aortic stenosis BMI 24.0-24.9, adult Preop cardiovascular exam NSTEMI (non-ST elevated myocardial infarction) (Multi) * Nir Min MD - 11/30/2024 3:22 PM EDT Atiya Jha is a 84 y.o. female on day 1 of admission presenting with nstemi Subjective Sitting chair no chest pain Objective Last Recorded Vitals BP 129/76 Pulse 67 Temp 37.3 C (99.1 F) Resp 18 SpO2 94% Intake/Output last 3 Shifts: Intake/Output Summary (Last 24 hours) at 11/30/2024 1522 Last data filed at 11/30/2024 1229 Gross per 24 hour Intake 611.38 ml Output -- Net 611.38 ml Scheduled medications Scheduled Medications[1] Continuous medications Continuous Medications[2] PRN medications PRN Medications[3] Physical Exam Gen: NAD HEENT: EOM, MMM CV: RRR, no murmurs rubs or gallops Resp: coarse rhonchi b/l Abdomen: soft, NT,+BS LE: No edema Relevant Results Lab Results Component Value Date WBC 5.5 11/30/2024 HGB 11.3 (L) 11/30/2024 HCT 34.1 (L) 11/30/2024 MCV 95 11/30/2024 PLT 147 (L) 11/30/2024 Lab Results Component Value Date GLUCOSE 107 (H) 11/30/2024 CALCIUM 9.3 11/30/2024 NA 138 11/30/2024 K 3.8 11/30/2024 CO2 27 11/30/2024 CL 104 11/30/2024 BUN 16 11/30/2024 CREATININE 0.71 11/30/2024 Assessment/Plan 84 year old female admitted with nstemi -had cath at OSH and unsuccessful PCI, transferred here for further eval, -seen by cardiology here and CT surgery and will decide best coarse of action, I discussed with both teams -continue heparin gtt, needs monitoring ot PTT levels for high risk medication Hx of aortic stenosis Hx of HTN/HLD: statin and coreg and HTZ DVT ppx: heparin gtt Nir Min MD [1] atorvastatin, 80 mg, oral, Daily carvedilol, 6.25 mg, oral, BID heparin, 60 Units/kg, intravenous, Once hydroCHLOROthiazide, 12.5 mg, oral, Daily oxybutynin, 5 mg, oral, BID pantoprazole, 40 mg, oral, Daily before breakfast polyethylene glycol, 17 g, oral, Daily [2] heparin, 0-4,000 Units/hr, Last Rate: 500 Units/hr (11/30/24 1052) [3] PRN medications: acetaminophen OR acetaminophen OR acetaminophen, heparin, ondansetron OR ondansetron * Melia Belle RN - 11/29/2024 1:19 PM EDT 11/29/24 1318 Discharge Planning Living Arrangements Spouse/significant other Support Systems Spouse/significant other Assistance Needed independent , uses cane for assistance if ambulating long distance as needed Type of Residence Private residence Who is requesting discharge planning? Provider Home or Post Acute Services None Expected Discharge Disposition Home Housing Stability In the last 12 months, was there a time when you were not able to pay the mortgage or rent on time?N At any time in the past 12 months, were you homeless or living in a care home (including now)? N Transportation Needs In the past 12 months, has lack of transportation kept you from medical appointments or from getting medications? no In the past 12 months, has lack of transportation kept you from meetings, work, or from getting things needed for daily living? No Patient Choice Patient / Family choosing to utilize agency / facility established prior to hospitalization No Stroke Family Assessment Stroke Family Assessment Needed No Intensity of Service Intensity of Service 0-30 min Pt transferred from [facility] . Met with patient at bedside. Pt resides at home with spouse. [facility]ides in [facility]. Follows with PCP Ivan Barreto in [place]. Preferred pharmacy is [facility] in [place]. Pt plan is home once medically able. Awaiting medical plan at this time. Will continue to follow if needs should arise. [facility] Work Phone: 1(602) 117-482105-03-2025 Hospital course Narrative* Nir Min MD - 12/03/2024 9:54 AM EDT Discharge Diagnosis NSTEMI (non-ST elevated myocardial infarction) (Multi) Discharge Meds Your medication list START taking these medications Instructions Last Dose Given Next Dose Due losartan 25 mg tablet Commonly known as: Cozaar Start taking on: December 04, 2024 Take 1 tablet (25 mg) by mouth once daily. ranolazine 500 mg 12 hr tablet Commonly known as: Ranexa Take 1 tablet (500 mg) by mouth 2 times a day. Do not crush, chew, or split. CONTINUE taking these medications Instructions Last Dose Given Next Dose Due alendronate 70 mg tablet Commonly known as: Fosamax aspirin 81 mg EC tablet atorvastatin 80 mg tablet Commonly known as: Lipitor calcium carbonate-vitamin D3 500 mg-5 mcg (200 unit) tablet carvedilol 6.25 mg tablet Commonly known as: Coreg Take 1 tablet (6.25 mg) by mouth 2 times daily (morning and late afternoon). cholecalciferol 125 mcg (5,000 units) capsule Commonly known as: Vitamin D-3 clopidogrel 75 mg tablet Commonly known as: Plavix Take 1 tablet (75 mg) by mouth once daily. docusate sodium 50 mg capsule Commonly known as: Colace estradiol 0.01 % (0.1 mg/gram) vaginal cream Commonly known as: Estrace hydroCHLOROthiazide 25 mg tablet Commonly known as: HYDRODiuril Myrbetriq 25 mg tablet extended release 24 hr Generic drug: mirabegron nitroglycerin 0.4 mg SL tablet Commonly known as: Nitrostat pantoprazole 40 mg EC tablet Commonly known as: ProtoNix STOP taking these medications irbesartan 75 mg tablet Commonly known as: Avapro telmisartan 20 mg tablet Commonly known as: MIcarDIS Where to Get Your Medications These medications were sent to [id number] - [place], [place] - [address] [place] [address] losartan 25 mg tablet ranolazine 500 mg 12 hr tablet Test Results Pending At Discharge Pending Labs No current pending labs. Hospital Course 84 year old female admitted with nstemi -had cath at OSH and unsuccessful PCI, transferred here for further eval, -nitroglycerine as needed for chest pain -discussed with CT surgery and cardiology here -had PCI here with drug-eluting stent placed to the distal left main/ostial LAD -advised to continue aspirin, plavix and statin Hx of aortic stenosis Hx of HTN/HLD: statin, coreg, HTZ and losartan Discharged home in stable condition. Greater than 30 minutes of clinical time spent caring for thispatient. Pertinent Physical Exam At Time of Discharge Gen: NAD HEENT: EOM, MMM CV: RRR, no murmurs rubs or gallops Resp: Clear to auscultation bilaterally Abdomen: soft, NT,+BS LE: No edema Outpatient Follow-Up Future Appointments Date Time Provider Department Center 12/09/2024 11:30 AM Jamia Ndiaye MD [id number] [place] 09/01/2025 10:50 AM Jamia Ndiaye MD [id number] [place] Nir Min MD documented in this [facility] Work Phone: [phone]) 967-884805-02-2025 wild life manager Note* Significant Event - Mariajose Rendon RN - 12/02/2024 3:30 PM EDT Pt transported to [address] [place] [address] via bed. Charting/care continued on unit. [facility]05-02-2025 wild life manager Note* Significant Event - Mariajose Rendon RN - 12/02/2024 2:56 PM EDT Yellow folder given to Pt containing: Post PCI discharge instructions/restrictions, Plavix education, cardiac rehab referral, and stent/vascade card. This information was reviewed with Pt and family,they answer follow up questions correctly. Right groin site remains soft and stable with no hematoma or oozing. [facility] Work Phone: [phone]) 295-509505-02-2025 wild life manager Note* Significant Event - Mariajose Rendon RN - 12/02/2024 2:22 PM EDT HOB increased to 30 degrees, right groin site remains soft and stable with no hematoma or oozing. Pt sitting up drinking ice water, she declines food at this time. [facility] Work Phone: [phone] wild life manager Note* Significant Event - Mariajose Rendon RN - 12/02/2024 2:05 PM EDT Leeann Tejada CNP in room speaking with Pt and family. [facility] Work Phone: [phone] 701-618605-02-2025 Hospital Discharge instructions* Discharge Instructions* ABDULLAHI Kuo - 12/02/2024 1:32 PM EDT Images from the original note were not included. CARDIAC CATHETERIZATION DISCHARGE INSTRUCTIONS FOR SUDDEN AND SEVERE CHEST PAIN, SHORTNESS OF BREATH, EXCESSIVE BLEEDING, SIGNS OF STROKE, OR CHANGES IN MENTAL STATUS YOU SHOULD CALL 911 IMMEDIATELY. If your provider has prescribed aspirin and/or clopidogrel (Plavix), or prasugrel (Effient), or ticagrelor (Brilinta), DO NOT STOP THESE MEDICATIONS for any reason without talking to your assorter first. If any of these were prescribed, you must take them every day without missing a single dose. If you are getting low on these medications, contact your provider immediately for a refill. FOR NEXT 24 HOURS - Upon discharge, you should return home and rest for the remainder of the day and evening. You do not have to stay on bed rest but should not be very active. It is recommended a responsible adult bewith you for the first 24 hours after the procedure. - No driving for 24 hours after procedure. Please arrange for someone to drive you home from the hospital today. - Do not drive, operate machinery, or use power tools for 24 hours after your procedure. - Do not make any legal decisions for 24 hours after your procedure. - Do not drink alcoholic beverages for 24 hours after your procedure. WOUND CARE *FOR FEMORAL (LEG) ACCESS* Avoid heavy lifting (over 10 pounds) for 7 days, squatting or excessive bending for 2 days, and strenuous exercise for 7 days. No submerged bathing, swimming, or hot tubs for the next 7 days, or until fully healed. Avoid sexual activity for 3-4 days until any groin discomfort has ceased. *FOR RADIAL (WRIST) ACCESS* No lifting more than 5 pounds or excessive use of the wrist for 24 hours - for example, treat your wrist as if it is sprained. Do not engage in vigorous activities (tennis, golf, bowling, weights) for at least 48 hours after the procedure. Do not submerge the wrist for 7 days after the procedure. You should expect mild tingling in your hand and tenderness at the puncture site for up to 3 days. - The transparent dressing should be removed from the site 24 hours after the procedure. Wash the site gently with soap and water. Rinse well and pat dry. Keep the area clean and dry. You may apply aBand-Aid to the site. Avoid lotions, ointments, or powders until fully healed. - You may shower the day after your procedure. - It is normal to notice a small bruise around the puncture site and/or a small grape sized or smaller lump. Any large bruising or large lump warrants a call to the office. - If bleeding should occur, lay down and apply pressure to the affected area for 10 minutes. If thebleeding stops notify your physician. If there is a large amount of bleeding or spurting of blood CALL [address] yourself to the hospital. - You may experience some tenderness, bruising or minimal inflammation. If you have any concerns, you may contact the Flag Signalman or if any of these symptoms become excessive, contact your assorter or go to the emergency room. OTHER INSTRUCTIONS - You may take acetaminophen (Tylenol) as directed for discomfort. If pain is not relieved with acetaminophen (Tylenol), contact your doctor. - If you notice or experience any of the following, you should notify your doctor or seek medical attention Chest pain or discomfort Change in mental status or weakness in extremities. Dizziness, light headedness, or feeling faint. Change in the site where the procedure was performed, such as bleeding or an increased area of bruising or swelling. Tingling, numbness, pain, or coolness in the leg/arm beyond the site where the procedure was performed. Signs of infection (i.e. shaking chills, temperature > 100 degrees Fahrenheit, warmth, redness) in the leg/arm area where the procedure was performed. Changes in urination Bloody or black stools Vomiting blood Severe nose bleeds Any excessive bleeding - If you DO NOT have an appointment with your assorter within 2-4 weeks following your procedure, please contact their office. documented in this [facility]Un[facility] Work Phone: [phone] 475-382905-02-2025 wild life manager Note* Significant Event - Mariajose Rendon RN - 12/02/2024 1:27 PM EDT Upon arrival to unit focused assessment performed and WDL. Right femoral site soft and stable with no hematoma or oozing. Pt denies dizziness/lightheadedness/pain. Educated on current restrictions r/t right femoral arterial puncture. EKG paged to bedside. Called [place] to notify them to send family down. [facility] Work Phone: [phone]) [phone] Surgery Postoperative evaluation and management note* Post-Procedure Note - Ann Howard MD - 12/02/2024 12:30 PM EDT Physician Transition of Care Summary Invasive Cardiovascular Lab Procedure Date: 12/02/2024 Attending: * Ann Howard - Primary Resident/Fellow/Other Tool Repairer Bench: Surgeons and Role: * No surgeons found with a matching role * Indications: Pre-op Diagnosis * NSTEMI (non-ST elevated myocardial infarction) (Multi) [I21.4] Post-procedure diagnosis: Post-op Diagnosis * NSTEMI (non-ST elevated myocardial infarction) (Multi) [I21.4] Procedure(s): PCI OLE Stent- Coronary 68809 - OK PRQ TRLUML CORONARY STENT W/ANGIO ONE ART/BRNC Procedure Findings: 99% stenosis of ostial LAD including distal left main, successful PTCA drug- eluting stent of ostialLAD and distal left main Description of the Procedure: PTCA drug-eluting stent of ostial LAD and distal left main Complications: None Stents/Implants: Implants Stent Stent, Ananda Payne Ole, 2.50 X 15rx - [id number] - Implanted Inventory item: STENT, ANANDA FRONTIER OLE, 2.50 X 15RX Model/Cat number: [id number] Superintendent Landfill Operations: [employer] Lot number: [id number] As of 12/02/2024 Status: Implanted Anticoagulation/Antiplatelet Plan: Dual antiplatelet therapy and intravenous heparin, Plavix load Estimated Blood Loss: 1 mL Anesthesia: Moderate Sedation Anesthesia Staff: No anesthesia staff entered. Any Specimen(s) Removed: No specimens collected during this procedure. Disposition: Dual antiplatelet therapy, follow-up with primary assorter in [place] Electronically signed by: Ann Howard MD, 12/02/2024 1:02 PM [facility] Work Phone: [phone]) [phone] Nurse procedure note* Pre-Sedation Documentation - Ann Howard MD - 12/02/2024 12:14 PM EDT Sedation Plan ASA 3 Mallampati class: III. Risks, benefits, and alternatives discussed with patient. [facility] Work Phone: [phone]) [phone] Attending History and physical note* Ann Howard MD - 12/02/2024 12:14 PM EDT H&P reviewed. The patient was examined and there are no changes to the H&P. Source Note - Giovani Prado MD - 11/30/2024 8:07 AM EDT Cardiology Consult Note Date: 11/30/2024 Patient name: Atiya Jha Date of admission: 11/29/2024 10:53 AM Date of : 1940 Time of Consult: 8:07 AM Consulting Wellness Trainer: Dr. Giovani Portillo, MILLER SUPERVISOR, CEMETERY VAULT INSTALLER Primary Wellness Trainer: Dr Ndiaye Referring Provider: Dr Min Admission Diagnosis: NSTEMI (non-ST elevated myocardial infarction) (Multi) History of Present Illness: Atiya Jha is a 84 y.o. female patient who is being at the request of Dr. Min for inpatient consultation of angina. She was admitted on 11/29/2024. Previous [facility] and [facility] records have been reviewed in detail. Patient with a history of CAD, hypertension, dyslipidemia, aortic stenosis Patient states that she was seeing Dr. Aury Sargent for urological issue she stopped taking heraspirin and Plavix she went in for a heart catheterization finding revealed an ostial LAD lesion going into her left main they called Dr. Howard decided to transfer the patient here for possible CABGversus high risk PCI. Patient states that she has been feeling pretty good lately she has not been feeling any chest pain but she was supposed to have this growth removed from her ureter urethra so she stopped taking her aspirin and Plavix and she was getting cardiac clearance for this procedure. Denies chest pain, shortness of breath, nausea, vomiting, PND, orthopnea, claudications EKG ordered Sodium 138 Potassium 3.8 BUN 16 Creatinine 0.71 INR 1.0 Hemoglobin 11.3 Hematocrit 34.1 Platelets 147 Cardiac history 11/28/24 heart cath Ostial LAD lesion going into left main Echo 11/25/2024 EF 55% Mild aortic stenosis Allergies: Allergies[1] Past Medical History: Medical History[2] Past Surgical History: Surgical History[3] Family History: Family History[4] Social History: Social History[5] CURRENT INPATIENT MEDICATIONS Scheduled Medications[6] Continuous Medications[7] Current Outpatient Medications Medication Instructions alendronate (FOSAMAX) 70 mg, oral, Every 7 days, Take in the morning with a full glass of water, andrew empty stomach, and do not take anything else by mouth or lie down for the next 30 min. aspirin 81 mg, Nightly atorvastatin (LIPITOR) 80 mg, oral, Daily calcium carbonate-vitamin D3 500 mg-5 mcg (200 unit) tablet 1 tablet, oral, Daily carvedilol (COREG) 6.25 mg, oral, 2 times daily (morning and late afternoon) cholecalciferol (VITAMIN D-3) 1,000 Units, oral, Daily RT clopidogrel (PLAVIX) 75 mg, oral, Daily docusate sodium (COLACE) 100 mg, oral, 2 times daily estradiol (ESTRACE) 2 g, vaginal, Daily PRN hydroCHLOROthiazide (HYDRODiuril) 25 mg tablet 0.5 tablets, oral, Daily irbesartan (AVAPRO) 75 mg, Nightly mirabegron (MYRBETRIQ) 25 mg, oral, Nightly nitroglycerin (NITROSTAT) 0.4 mg, sublingual, Every 5 min PRN, Up to 3 doses pantoprazole (ProtoNix) 40 mg EC tablet 1 tablet, oral, Daily before breakfast telmisartan (MICARDIS) 20 mg, oral, Daily, Patient has Not been taking this at home. States she is unsure if she was suppose to continue. Review of Systems: 12 point review of systems was obtained in detail and is negative other than that detailed above. Vital Signs: Vitals: 11/29/24 1504 11/29/24 1919 11/29/24 2308 11/30/24 0720 BP: 131/62 132/73 142/75 132/67 BP Location: Right arm Right arm Patient Position: Sitting Lying Pulse: 66 77 73 66 Resp: 18 18 Temp: 36.9 C (98.4 F) 36.9 C (98.4 F) 36 C (96.8 F) 36.4 C (97.5 F) TempSrc: Temporal Temporal SpO2: 93% 94% 97% 93% No intake or output data in the 24 hours ending 11/30/24 0807 Wt Readings from Last 4 Encounters: 11/28/24 64 kg (141 lb 1.5 oz) 10/26/24 67.6 kg (149 lb) 05/30/24 65.5 kg (144 lb 6.4 oz) 01/12/24 67.1 kg (148 lb) Physical Examination: GENERAL APPEARANCE: Well developed, well nourished, in no acute distress. CHEST: Symmetric and non-tender. INTEGUMENT: Skin warm and dry, without gross excoriationis or lesions. HEENT: No gross abnormalities of conjunctiva, teeth, gums, oral mucosa NECK: Supple, no JVD, no bruit. Thyroid not palpable. Carotid upstrokes normal. NEURO/PSHCY: Alert and oriented x3; appropriate behavior and responses and responses, grossly normal cerebellar function with normal balance and coordination LUNGS: Clear to auscultation bilaterally; normal respiratory effort. HEART: S1, S2 regular with 2 out of 6 systolic murmur ABDOMEN: Soft, nontender, no palpable hepatosplenomegaly, no mases, no bruits. Abdominal aorta not noted to be enlarged. MUSCULOSKELETAL: Ambulatory with normal tandem gait. EXTREMITIES: Warm with good color, no clubbing or cyanois. There is no edema noted. PERIPHERAL VASCULAR: Pulses present and equally palpable; 2+ throughout. No femoral bruits. Lab: CBC: Results from last 7 days Lab Units 11/30/24 0356 WBC AUTO x10*3/uL 5.5 RBC AUTO x10*6/uL 3.59* HEMOGLOBIN g/dL 11.3* HEMATOCRIT % 34.1* MCV fL 95 MCH pg 31.5 MCHC g/dL 33.1 RDW % 13.2 PLATELETS AUTO x10*3/uL 147* CMP: Results from last 7 days Lab Units 11/30/24 0356 SODIUM mmol/L 138 POTASSIUM mmol/L 3.8 CHLORIDE mmol/L 104 CO2 mmol/L 27 BUN mg/dL 16 CREATININE mg/dL 0.71 GLUCOSE mg/dL 107* PROTEIN TOTAL g/dL 6.0* CALCIUM mg/dL 9.3 BILIRUBIN TOTAL mg/dL 0.8 ALK PHOS U/L 42 AST U/L 15 ALT U/L 10 BMP: Results from last 7 days Lab Units 11/30/24 0356 SODIUM mmol/L 138 POTASSIUM mmol/L 3.8 CHLORIDE mmol/L 104 CO2 mmol/L 27 BUN mg/dL 16 CREATININE mg/dL 0.71 CALCIUM mg/dL 9.3 GLUCOSE mg/dL 107* Radiology: CT chest wo IV contrast (Results Pending) Carotid duplex bilateral (Results Pending) Lower extremity vein mapping bilateral (Results Pending) Problem List: Problem List[8] Assessment: CAD Hypertension Dyslipidemia EF 55% Mild aortic stenosis Plan: Tele monitoring 2d echo done rosetta Daily EKG's Aspirin and Plavix for now on hold Continue the heparin drip for now CT surgery consult for possible CABG Coreg 6.25 mg p.o. twice daily Lipitor 80 mg daily Hydrochlorothiazide 12.5 mg daily Check magnesium level keep greater than 2.0 Matt Portillo CNP [facility] Of note, this documentation is completed using the [employer] system (voice recognition software). There may be spelling and/or grammatical errors that were not corrected prior to final submission. I have personally interviewed and examined the patient. I have personally and independently reviewed labs and diagnostic testing. I have personally verified the elements of the history and physical listed above and changes, if any, are noted. I have personally reviewed the assessment and plan as documented by Daniela Portillo, LA NENA, ALICJA and baljeet. In summary, Mrs. Atiya Jha has a history of atherosclerotic heart disease with previous angioplasty and stenting of the circumflex and LAD. Most recent intervention was on the LAD in November 2023. She has a history of hypertension, mixed hyperlipidemia, and mild aortic stenosis. No history of diabetes mellitus or tobacco use. She was previously noted to have mild LV dysfunction with subsequent studies showing a normal ejection fraction. She was most recently seen by Dr. Jamia Ndiaye for preoperative assessment prior to planned urologic surgery. She was doing well at the time. She has had hematuria and was found to have a growth on her urethra. She held her aspirin and Plavix for a few days in preparation for surgery and subsequently developed recurrent chest discomfort. She was admitted to [facility] and was noted tohave an acute non-STEMI with a troponin level of 700. EKG did not show any acute ST changes. She underwent repeat cardiac catheterization and was found to have ostial stenosis of the left anterior descending artery. It was opted to have her transferred to [facility] for evaluation of possible coronary artery bypass grafting surgery versus high risk PCI. The patient currently is sitting up in a chair and is resting comfortably. No ongoing chest pain. She denies any shortness of breath. Her vital signs are stable. Oxygen saturation 97%. Cardiac rhythm is regular. Lungs are clear. No significant peripheral edema. Lab studies show a normal CBC with exception of hemoglobin 11.3. Comprehensive metabolic profile is normal. EKG shows normal sinus rhythm without acute ST changes. Occasional PVCs. CT scan of the chest shows a right lower lobe pulmonary nodule measuring 6 mm. Cardiothoracic surgery has been consulted. Further recommendations to follow. [1] No Known Allergies [2] No past medical history on file. [3] Past Surgical History: Procedure Laterality Date CORONARY ANGIOPLASTY WITH STENT PLACEMENT 01/2023 OTHER SURGICAL HISTORY 06/04/2022 Cataract surgery OTHER SURGICAL HISTORY 06/04/2022 Blepharoplasty OTHER SURGICAL HISTORY 06/04/2022 Abdominoplasty OTHER SURGICAL HISTORY 06/04/2022 Hip replacement OTHER SURGICAL HISTORY 06/04/2022 Complete colonoscopy OTHER SURGICAL HISTORY 06/04/2022 Percutaneous transluminal coronary angioplasty TRIGGER FINGER RELEASE [4] No family history on file. [5] Social History Tobacco Use Smoking status: Never Smokeless tobacco: Never Substance Use Topics Alcohol use: Yes Comment: social Drug use: Never [6] atorvastatin, 80 mg, oral, Daily carvedilol, 6.25 mg, oral, BID heparin, 60 Units/kg, intravenous, Once hydroCHLOROthiazide, 12.5 mg, oral, Daily oxybutynin, 5 mg, oral, BID pantoprazole, 40 mg, oral, Daily before breakfast polyethylene glycol, 17 g, oral, Daily [7] heparin, 0-4,000 Units/hr, Last Rate: 600 Units/hr (11/30/24517) [8] Patient Active Problem List Diagnosis Two-vessel coronary artery disease Congestive heart failure, NYHA class 2 and ACC/AHA stage C Essential hypertension Mixed hyperlipidemia History of PTCA Dysuria Weakness Never smoked cigarettes Mild aortic stenosis BMI 24.0-24.9, adult Preop cardiovascular exam NSTEMI (non-ST elevated myocardial infarction) (Multi) [facility] Work Phone: 1(112) 229-116005-02-2025 History and physical note* Ann Howard MD - 12/02/2024 12:14 PM EDT H&P reviewed. The patient was examined and there are no changes to the H&P. Source Note - Giovani Prado MD - 11/30/2024 8:07 AM EDT Cardiology Consult Note Date: 11/30/2024 Patient name: Atiya Jha Date of admission: 11/29/2024 10:53 AM Date of : 1940 Time of Consult: 8:07 AM Consulting Wellness Trainer: Dr. Giovani Portillo, [employer], [employer] IN[employer]ER Primary Wellness Trainer: Dr Ndiaye Referring Provider: Dr Min Admission Diagnosis: NSTEMI (non-ST elevated myocardial infarction) (Multi) History of Present Illness: Atiya Jha is a 84 y.o. female patient who is being at the request of Dr. Min for inpatient consultation of angina. She was admitted on 11/29/2024. Previous [facility] and [facility] records have been reviewed in detail. Patient with a history of CAD, hypertension, dyslipidemia, aortic stenosis Patient states that she was seeing Dr. Aury Sargent for urological issue she stopped taking heraspirin and Plavix she went in for a heart catheterization finding revealed an ostial LAD lesion going into her left main they called Dr. Howard decided to transfer the patient here for possible CABGversus high risk PCI. Patient states that she has been feeling pretty good lately she has not been feeling any chest pain but she was supposed to have this growth removed from her ureter urethra so she stopped taking her aspirin and Plavix and she was getting cardiac clearance for this procedure. Denies chest pain, shortness of breath, nausea, vomiting, PND, orthopnea, claudications EKG ordered Sodium 138 Potassium 3.8 BUN 16 Creatinine 0.71 INR 1.0 Hemoglobin 11.3 Hematocrit 34.1 Platelets 147 Cardiac history 11/28/24 heart cath Ostial LAD lesion going into left main Echo 11/25/2024 EF 55% Mild aortic stenosis Allergies: Allergies[1] Past Medical History: Medical History[2] Past Surgical History: Surgical History[3] Family History: Family History[4] Social History: Social History[5] CURRENT INPATIENT MEDICATIONS Scheduled Medications[6] Continuous Medications[7] Current Outpatient Medications Medication Instructions alendronate (FOSAMAX) 70 mg, oral, Every 7 days, Take in the morning with a full glass of water, andrew empty stomach, and do not take anything else by mouth or lie down for the next 30 min. aspirin 81 mg, Nightly atorvastatin (LIPITOR) 80 mg, oral, Daily calcium carbonate-vitamin D3 500 mg-5 mcg (200 unit) tablet 1 tablet, oral, Daily carvedilol (COREG) 6.25 mg, oral, 2 times daily (morning and late afternoon) cholecalciferol (VITAMIN D-3) 1,000 Units, oral, Daily RT clopidogrel (PLAVIX) 75 mg, oral, Daily docusate sodium (COLACE) 100 mg, oral, 2 times daily estradiol (ESTRACE) 2 g, vaginal, Daily PRN hydroCHLOROthiazide (HYDRODiuril) 25 mg tablet 0.5 tablets, oral, Daily irbesartan (AVAPRO) 75 mg, Nightly mirabegron (MYRBETRIQ) 25 mg, oral, Nightly nitroglycerin (NITROSTAT) 0.4 mg, sublingual, Every 5 min PRN, Up to 3 doses pantoprazole (ProtoNix) 40 mg EC tablet 1 tablet, oral, Daily before breakfast telmisartan (MICARDIS) 20 mg, oral, Daily, Patient has Not been taking this at home. States she is unsure if she was suppose to continue. Review of Systems: 12 point review of systems was obtained in detail and is negative other than that detailed above. Vital Signs: Vitals: 11/29/24 1504 11/29/24 1919 11/29/24 2308 11/30/24 0720 BP: 131/62 132/73 142/75 132/67 BP Location: Right arm Right arm Patient Position: Sitting Lying Pulse: 66 77 73 66 Resp: 18 18 Temp: 36.9 C (98.4 F) 36.9 C (98.4 F) 36 C (96.8 F) 36.4 C (97.5 F) TempSrc: Temporal Temporal SpO2: 93% 94% 97% 93% No intake or output data in the 24 hours ending 11/30/24 0807 Wt Readings from Last 4 Encounters: 11/28/24 64 kg (141 lb 1.5 oz) 10/26/24 67.6 kg (149 lb) 05/30/24 65.5 kg (144 lb 6.4 oz) 01/12/24 67.1 kg (148 lb) Physical Examination: GENERAL APPEARANCE: Well developed, well nourished, in no acute distress. CHEST: Symmetric and non-tender. INTEGUMENT: Skin warm and dry, without gross excoriationis or lesions. HEENT: No gross abnormalities of conjunctiva, teeth, gums, oral mucosa NECK: Supple, no JVD, no bruit. Thyroid not palpable. Carotid upstrokes normal. NEURO/PSHCY: Alert and oriented x3; appropriate behavior and responses and responses, grossly normal cerebellar function with normal balance and coordination LUNGS: Clear to auscultation bilaterally; normal respiratory effort. HEART: S1, S2 regular with 2 out of 6 systolic murmur ABDOMEN: Soft, nontender, no palpable hepatosplenomegaly, no mases, no bruits. Abdominal aorta not noted to be enlarged. MUSCULOSKELETAL: Ambulatory with normal tandem gait. EXTREMITIES: Warm with good color, no clubbing or cyanois. There is no edema noted. PERIPHERAL VASCULAR: Pulses present and equally palpable; 2+ throughout. No femoral bruits. Lab: CBC: Results from last 7 days Lab Units 11/30/24 0356 WBC AUTO x10*3/uL 5.5 RBC AUTO x10*6/uL 3.59* HEMOGLOBIN g/dL 11.3* HEMATOCRIT % 34.1* MCV fL 95 MCH pg 31.5 MCHC g/dL 33.1 RDW % 13.2 PLATELETS AUTO x10*3/uL 147* CMP: Results from last 7 days Lab Units 11/30/24 0356 SODIUM mmol/L 138 POTASSIUM mmol/L 3.8 CHLORIDE mmol/L 104 CO2 mmol/L 27 BUN mg/dL 16 CREATININE mg/dL 0.71 GLUCOSE mg/dL 107* PROTEIN TOTAL g/dL 6.0* CALCIUM mg/dL 9.3 BILIRUBIN TOTAL mg/dL 0.8 ALK PHOS U/L 42 AST U/L 15 ALT U/L 10 BMP: Results from last 7 days Lab Units 11/30/24 0356 SODIUM mmol/L 138 POTASSIUM mmol/L 3.8 CHLORIDE mmol/L 104 CO2 mmol/L 27 BUN mg/dL 16 CREATININE mg/dL 0.71 CALCIUM mg/dL 9.3 GLUCOSE mg/dL 107* Radiology: CT chest wo IV contrast (Results Pending) Carotid duplex bilateral (Results Pending) Lower extremity vein mapping bilateral (Results Pending) Problem List: Problem List[8] Assessment: CAD Hypertension Dyslipidemia EF 55% Mild aortic stenosis Plan: Tele monitoring 2d echo done rosetta Daily EKG's Aspirin and Plavix for now on hold Continue the heparin drip for now CT surgery consult for possible CABG Coreg 6.25 mg p.o. twice daily Lipitor 80 mg daily Hydrochlorothiazide 12.5 mg daily Check magnesium level keep greater than 2.0 Matt Portillo CNP [facility] Of note, this documentation is completed using the [employer] system (voice recognition software). There may be spelling and/or grammatical errors that were not corrected prior to final submission. I have personally interviewed and examined the patient. I have personally and independently reviewed labs and diagnostic testing. I have personally verified the elements of the history and physical listed above and changes, if any, are noted. I have personally reviewed the assessment and plan as documented by LA NENA Hamilton CNP and concur. In summary, Mrs. Atiya Jha has a history of atherosclerotic heart disease with previous angioplasty and stenting of the circumflex and LAD. Most recent intervention was on the LAD in November 2023. She has a history of hypertension, mixed hyperlipidemia, and mild aortic stenosis. No history of diabetes mellitus or tobacco use. She was previously noted to have mild LV dysfunction with subsequent studies showing a normal ejection fraction. She was most recently seen by Dr. Jamia Ndiaye for preoperative assessment prior to planned urologic surgery. She was doing well at the time. She has had hematuria and was found to have a growth on her urethra. She held her aspirin and Plavix for a few days in preparation for surgery and subsequently developed recurrent chest discomfort. She was admitted to [facility] and was noted tohave an acute non-STEMI with a troponin level of 700. EKG did not show any acute ST changes. She underwent repeat cardiac catheterization and was found to have ostial stenosis of the left anterior descending artery. It was opted to have her transferred to [facility] for evaluation of possible coronary artery bypass grafting surgery versus high risk PCI. The patient currently is sitting up in a chair and is resting comfortably. No ongoing chest pain. She denies any shortness of breath. Her vital signs are stable. Oxygen saturation 97%. Cardiac rhythm is regular. Lungs are clear. No significant peripheral edema. Lab studies show a normal CBC with exception of hemoglobin 11.3. Comprehensive metabolic profile is normal. EKG shows normal sinus rhythm without acute ST changes. Occasional PVCs. CT scan of the chest shows a right lower lobe pulmonary nodule measuring 6 mm. Cardiothoracic surgery has been consulted. Further recommendations to follow. [1] No Known Allergies [2] No past medical history on file. [3] Past Surgical History: Procedure Laterality Date CORONARY ANGIOPLASTY WITH STENT PLACEMENT 01/2023 OTHER SURGICAL HISTORY 06/04/2022 Cataract surgery OTHER SURGICAL HISTORY 06/04/2022 Blepharoplasty OTHER SURGICAL HISTORY 06/04/2022 Abdominoplasty OTHER SURGICAL HISTORY 06/04/2022 Hip replacement OTHER SURGICAL HISTORY 06/04/2022 Complete colonoscopy OTHER SURGICAL HISTORY 06/04/2022 Percutaneous transluminal coronary angioplasty TRIGGER FINGER RELEASE [4] No family history on file. [5] Social History Tobacco Use Smoking status: Never Smokeless tobacco: Never Substance Use Topics Alcohol use: Yes Comment: social Drug use: Never [6] atorvastatin, 80 mg, oral, Daily carvedilol, 6.25 mg, oral, BID heparin, 60 Units/kg, intravenous, Once hydroCHLOROthiazide, 12.5 mg, oral, Daily oxybutynin, 5 mg, oral, BID pantoprazole, 40 mg, oral, Daily before breakfast polyethylene glycol, 17 g, oral, Daily [7] heparin, 0-4,000 Units/hr, Last Rate: 600 Units/hr (11/30/24517) [8] Patient Active Problem List Diagnosis Two-vessel coronary artery disease Congestive heart failure, NYHA class 2 and ACC/AHA stage C Essential hypertension Mixed hyperlipidemia History of PTCA Dysuria Weakness Never smoked cigarettes Mild aortic stenosis BMI 24.0-24.9, adult Preop cardiovascular exam NSTEMI (non-ST elevated myocardial infarction) (Multi) * ABDULLAHI Cisneros - 11/29/2024 4:33 PM EDT History Of Present Illness Atiya Jha is a 84 y.o. female with PMH hypertension, hyperlipidemia, aortic stenosis, and CADwith multiple PCI who is presenting with NSTEMI. Patient had chest pain and went to [facility] in which she went for a cardiac catheterization which was on successful. Troponins exceeding 700.Patient stopped taking aspirin and Plavix a few days ago in preparation for urological surgery to be done by Dr. 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 Patient had been compliant with her medication regimen. Patient was then transferred to [facility] per Dr. Howard request. Plan for cardiac cath in a.m. Patient denies chest pain or shortness of breath. Denies abdominal pain, nausea, vomiting diarrhea. Denies fever or chills. Patient is on room air. Patient states she does get short of breath with ambulation. Patient admitted for further evaluation and treatment. Family at bedside Past Medical History She has no past medical history on file. Surgical History She has a past surgical history that includes Other surgical history (06/04/2022); Other surgical history (06/04/2022); Other surgical history (06/04/2022); Other surgical history (06/04/2022); Othersurgical history (06/04/2022); Other surgical history (06/04/2022); Coronary angioplasty with stent(01/2023); and Trigger finger release. Social History She reports that she has never smoked. She has never used smokeless tobacco. She reports current alcohol use. She reports that she does not use drugs. Family History Family History[1] Allergies Patient has no known allergies. Review of Systems Review of systems: 10 system were reviewed and were negative except what was mentioned in history of present illness Physical Exam Constitutional: Appearance: Normal appearance. HENT: Head: Normocephalic. Mouth/Throat: Mouth: Mucous membranes are moist. Eyes: Pupils: Pupils are equal, round, and reactive to light. Cardiovascular: Rate and Rhythm: Normal rate and regular rhythm. Heart sounds: Normal heart sounds, S1 normal and S2 normal. Pulmonary: Effort: Pulmonary effort is normal. Breath sounds: Normal breath sounds. Abdominal: General: Bowel sounds are normal. Palpations: Abdomen is soft. Musculoskeletal: General: Normal range of motion. Cervical back: Neck supple. Skin: General: Skin is warm. Neurological: Mental Status: She is alert and oriented to person, place, and time. Psychiatric: Mood and Affect: Mood normal. Behavior: Behavior normal. Last Recorded Vitals BP 131/62 (BP Location: Right arm, Patient Position: Sitting) Pulse 66 Temp 36.9 C (98.4 F) (Temporal) Resp 18 SpO2 93% Relevant Results CBC: CMP: No lab exists for component: GFRAA , LABGLOM , LABALBU BMP: No lab exists for component: LABALBU , GFRAA , LABGLOM Magnesium: Troponin: BNP: Lipid Panel: Imagining Cardiac Catheterization - Onbase Scan Ordered by an unspecified provider. Echocardiogram Ordered by an unspecified provider. Assessment/Plan NSTEMI Chest pain -Transferred from [facility] -Patient had cath yesterday with unsuccessful PCI was transferred per Dr. Howard request -Will continue heparin drip -Plan for cath in a.m. -Consult cardiology -Consult vascular surgery per cardiology -Vital signs every 8 hours -Recent echo showed normal LVEF -PT/OT evaluation HLD/HTN Mild aortic stenosis PCI to the LAD 11/24 -Resume home meds DVTp: Heparin drip PLAN: Home with family ABDULLAHI Cisneros Plan of care was discussed extensively with patient. Patient verbalized understanding through teachback method. All question and concerns addressed upon examination. Of note, this documentation is completed using the [employer] system (voice recognition software). There may be spelling and/or grammatical errors that were not corrected prior to final submission. [1] No family history on file. documented in this [facility] Work Phone: 1(133) 965-775905-01-2025 Note* Documentation Clarification Note - Nir Min MD - 12/01/2024 8:15 AM EDT PATIENT: ATIYA JHA : 1940 ADMIT DATE: 11/29/2024 10:53 AM DISCH DATE: RESPONDING PROVIDER #: [id number] PROVIDER RESPONSE TEXT: Chronic Diastolic Congestive Heart Failure CDI QUERY TEXT: Clarification Instruction: Based on your assessment of the patient and the clinical information, please provide the requested documentation by clicking on the appropriate radio button and enter any additional information if prompted. Question: Please further clarify the type and acuity of congestive heart failure When answering this query, please exercise your independent professional judgment. The fact that a question is being asked, does not imply that any particular answer is desired or expected. The patient's clinical indicators include: Clinical Information: Pt transferred from [facility] for nstemi Clinical Indicators: Per the cards consult note dated 11/30/24 - Echo 11/25/2024 EF 55% Congestive heart failure, NYHA class 2 and ACC/AHA stage C Treatment: resume home med of HCTZ half tab po daily Risk Factors: htn, cad Options provided: -- Chronic Diastolic Congestive Heart Failure -- Other - I will add my own diagnosis -- Refer to Clinical Documentation Reviewer Query created by: Thiago Grimaldo on 12/01/2024 8:10 AM Electronically signed by: NIR MIN MD 12/01/2024 8:15 AM [facility] Work Phone: 1(322) 621-765905-01-2025 Plan of care note* Care Plan - Magdalene Limon RN - 12/01/2024 3:15 AM EDT The patient's goals for the shift include remaining free from injury and maintaining hemodynamic stability. The clinical goals for the shift include pt will be free from chest pain / pressure throughout shift. Over the shift, the patient did make progress toward the following goals. Barriers to progression include fatigue. Recommendations to address these barriers include rest. [facility]04-30-2025 Nurse Note* Cecilia Garcia RN - 11/30/2024 7:39 PM EDT Late entry 1830 pt complain chest pain radiating left chest to back under breast, bp 142/60 hr 66 Md notified, EKG stat ordered, troponin ordered nitroglycerin and morphine pulled from [employer] cell saw pt at bedside trop drawn @ 1837 EKG completed @1838 Bp 139/65 map 93 hr 65 o2 95% pain 6/10 @1839 nitroglycerin #1 given 104/57 map 78 hr 69 o2 92% pain 3/10 @ 1845 nitroglycerin #2 given 95/50 map 70 hr 89 o2 92% pain free @ 1850 115/62 map 82 hr 70 o2 95% pain free@ 1855 [facility]04-30-2025 Nurse Note* Cecilia Garcia RN - 11/30/2024 7:39 PM EDT Late entry 1830 pt complain chest pain radiating left chest to back under breast, bp 142/60 hr 66 Md notified, EKG stat ordered, troponin ordered nitroglycerin and morphine pulled from omni cell Md saw pt at bedside trop drawn @ 1837 EKG completed @1838 Bp 139/65 map 93 hr 65 o2 95% pain 6/10 @1839 nitroglycerin #1 given 104/57 map 78 hr 69 o2 92% pain 3/10 @ 1845 nitroglycerin #2 given 95/50 map 70 hr 89 o2 92% pain free @ 1850 115/62 map 82 hr 70 o2 95% pain free@ 1855 [facility] Work Phone: 1(785) 423-577904-30-2025 Plan of care note* Care Plan - Cecilia Garcia RN - 11/30/2024 10:42 AM EDT The patient's goals for the shift include The clinical goals for the shift include pt will be free from chest pain / pressure throughout shift Over the shift, the patient did not make progress toward the following goals. Barriers to progression include testing and procedure/ surgery. Recommendations to address these barriers include testingmedications and montioring. [facility] Work Phone: 1(934) 516-641104-30-2025 Consult note* Noemi Cisneros APRN- ALICJA - 11/30/2024 9:26 AM EDTAssociated Order(s): Inpatient consult to Cardiothoracic Surgery Inpatient consult to Cardiothoracic Surgery Consult performed by: ABDULLAHI Diaz Consult ordered by: ABDULLAHI Rome Reason For Consult CABG evaluation vs high risk PCI History Of Present Illness Atiya Jha is a 84 y.o. female presenting with past medical history of CAD s/p heart stent x 3most previous stent done in November 2023 to LAD and circumflex in the past, HTN, HLD and mild aortic stenosis. Presented to [facility] ED on 11/26 with complaints of shortness of breath and worsening fatigue. She did have elevated troponin >700 at that time and was admitted to OSH for further evaluation. Of note, patient stopped asa and Plavix for ~5 days for upcoming urological procedurethat was scheduled this coming week. Otherwise has been compliant with medication regimen. On 11/28/24 patient underwent left cardiac catheterization with Dr. Ndiaye. Finding the procedure revealing severe coronary artery disease as evident by 40 to 50% distal left main, subtotal occlusion of the ostial LAD with mild to moderate disease of the mid LAD and left circumflex with good post PCI result of the proximal circumflex. Mild LV systolic dysfunction with LVEF around 50% with anterior wall hypokinesis. Recommendations for aggressive coronaries factor modification and referral [facility] for evaluation for either high risk PCI of the distal left main and proximal LAD versus two-vessel bypass surgery. Patient was then transferred to [facility] for further recommendations. At the time of consultation patient is in no acute distress, remain afebrile, hemodynamically stable, and maintaining adequate oxygen saturation on room air. Denies current chest pain and states overthe last few days she has only noticed increased fatigue and shortness of breath with activity. Also noticed pain x 1 month under left axillary refion radiating down side. She is currently on IV heparin, aspirin and Plavix are currently on hold. Dr. Todd updated, will obtain standard pre-operativeimaging with further recommendations to follow once imaging is reviewed. Thank you for the consult. Past Medical History She has no past medical history on file. Surgical History She has a past surgical history that includes Other surgical history (06/04/2022); Other surgical history (06/04/2022); Other surgical history (06/04/2022); Other surgical history (06/04/2022); Othersurgical history (06/04/2022); Other surgical history (06/04/2022); Coronary angioplasty with stent(01/2023); and Trigger finger release. Social History She reports that she has never smoked. She has never used smokeless tobacco. She reports current alcohol use. She reports that she does not use drugs. Family History Family History[1] Allergies Patient has no known allergies. Review of Systems Constitutional: Positive for fatigue. Respiratory: Positive for chest tightness and shortness of breath. Physical Exam Vitals and nursing note reviewed. Constitutional: General: She is not in acute distress. Appearance: Normal appearance. She is not ill-appearing. HENT: Head: Normocephalic and atraumatic. Eyes: Pupils: Pupils are equal, round, and reactive to light. Pupils are equal. Cardiovascular: Rate and Rhythm: Normal rate and regular rhythm. Pulmonary: Effort: Pulmonary effort is normal. No respiratory distress. Chest: Chest wall: No tenderness. Abdominal: General: Abdomen is flat. Bowel sounds are normal. Palpations: Abdomen is soft. Genitourinary: Comments: Voiding freely Skin: General: Skin is warm and dry. Neurological: General: No focal deficit present. Mental Status: She is alert and oriented to person, place, and time. Psychiatric: Attention and Perception: Attention normal. Mood and Affect: Mood normal. Behavior: Behavior is cooperative. Last Recorded Vitals Blood pressure 132/67, pulse 66, temperature 36.4 C (97.5 F), temperature source Temporal, resp. rate 18, SpO2 93%. Relevant Results Scheduled medications Scheduled Medications[2] Continuous medications Continuous Medications[3] PRN medications PRN Medications[4] Results for orders placed or performed during the hospital encounter of 11/29/24 (from the past 24 hours) Heparin Assay Result Value Ref Range Heparin Unfractionated 0.5 See Comment Below for Therapeutic Ranges IU/mL Heparin Assay Result Value Ref Range Heparin Unfractionated 0.7 See Comment Below for Therapeutic Ranges IU/mL Urinalysis with Reflex Microscopic Result Value Ref Range Color, Urine Yellow Light-Yellow, Yellow, Dark-Yellow Appearance, Urine Clear Clear Specific [place], Urine 1.021 1.005 - 1.035 pH, Urine 5.5 5.0, 5.5, 6.0, 6.5, 7.0, 7.5, 8.0 Protein, Urine NEGATIVE NEGATIVE, 10 (TRACE), 20 (TRACE) mg/dL Glucose, Urine Normal Normal mg/dL Blood, Urine 0.1 (1+) (A) NEGATIVE mg/dL Ketones, Urine NEGATIVE NEGATIVE mg/dL Bilirubin, Urine NEGATIVE NEGATIVE mg/dL Urobilinogen, Urine Normal Normal mg/dL Nitrite, Urine NEGATIVE NEGATIVE Leukocyte Esterase, Urine 500 Michelle/uL (A) NEGATIVE Urine Slater Tube Result Value Ref Range Extra Tube Hold for add-ons. Microscopic Only, Urine Result Value Ref Range WBC, Urine >50 (A) 1-5, NONE /HPF RBC, Urine 6-10 (A) NONE, 1-2, 3-5 /HPF Squamous Epithelial Cells, Urine 1-9 (SPARSE) Reference range not established. /HPF Bacteria, Urine 1+ (A) NONE SEEN /HPF Mucus, Urine FEW Reference range not established. /LPF Comprehensive Metabolic Panel Result Value Ref Range Glucose 107 (H) 74 - 99 mg/dL Sodium 138 136 - 145 mmol/L Potassium 3.8 3.5 - 5.3 mmol/L Chloride 104 98 - 107 mmol/L Bicarbonate 27 21 - 32 mmol/L Anion Gap 11 10 - 20 mmol/L Urea Nitrogen 16 6 - 23 mg/dL Creatinine 0.71 0.50 - 1.05 mg/dL eGFR 83 >60 mL/min/1.73m*2 Calcium 9.3 8.6 - 10.3 mg/dL Albumin 3.8 3.4 - 5.0 g/dL Alkaline Phosphatase 42 33 - 136 U/L Total Protein 6.0 (L) 6.4 - 8.2 g/dL AST 15 9 - 39 U/L Bilirubin, Total 0.8 0.0 - 1.2 mg/dL ALT 10 7 - 45 U/L Coagulation Screen Result Value Ref Range Protime 11.3 9.8 - 12.4 seconds INR 1.0 0.9 - 1.1 aPTT 129 (HH) 26 - 36 seconds CBC and Auto Differential Result Value Ref Range WBC 5.5 4.4 - 11.3 x10*3/uL nRBC 0.0 0.0 - 0.0 /100 WBCs RBC 3.59 (L) 4.00 - 5.20 x10*6/uL Hemoglobin 11.3 (L) 12.0 - 16.0 g/dL Hematocrit 34.1 (L) 36.0 - 46.0 % MCV 95 80 - 100 fL MCH 31.5 26.0 - 34.0 pg MCHC 33.1 32.0 - 36.0 g/dL RDW 13.2 11.5 - 14.5 % Platelets 147 (L) 150 - 450 x10*3/uL Neutrophils % 49.6 40.0 - 80.0 % Immature Granulocytes %, Automated 0.2 0.0 - 0.9 % Lymphocytes % 33.6 13.0 - 44.0 % Monocytes % 12.4 2.0 - 10.0 % Eosinophils % 3.5 0.0 - 6.0 % Basophils % 0.7 0.0 - 2.0 % Neutrophils Absolute 2.72 1.60 - 5.50 x10*3/uL Immature Granulocytes Absolute, Automated 0.01 0.00 - 0.50 x10*3/uL Lymphocytes Absolute 1.84 0.80 - 3.00 x10*3/uL Monocytes Absolute 0.68 0.05 - 0.80 x10*3/uL Eosinophils Absolute 0.19 0.00 - 0.40 x10*3/uL Basophils Absolute 0.04 0.00 - 0.10 x10*3/uL TSH with reflex to Free T4 if abnormal Result Value Ref Range Thyroid Stimulating Hormone 1.43 0.44 - 3.98 mIU/L Heparin Assay Result Value Ref Range Heparin Unfractionated 0.8 See Comment Below for Therapeutic Ranges IU/mL SST TOP Result Value Ref Range Extra Tube Hold for add-ons. Magnesium Result Value Ref Range Magnesium 1.98 1.60 - 2.40 mg/dL ECG 12 Lead Result Value Ref Range Ventricular Rate 78 BPM Atrial Rate 78 BPM OK Interval 192 ms QRS Duration 88 ms QT Interval 414 ms QTC Calculation(Bazett) 471 ms P [place] 81 degrees R [place] 63 degrees T [place] 88 degrees QRS Count 13 beats Q Onset 220 ms P Onset 124 ms P Offset 181 ms T Offset 427 ms QTC Fredericia 451 ms Heparin Assay Result Value Ref Range Heparin Unfractionated 0.8 See Comment Below for Therapeutic Ranges IU/mL ECG 12 Lead Result Date: 11/30/2024 Sinus rhythm with occasional Premature ventricular complexes Otherwise normal ECG No previous ECGs available CT chest wo IV contrast Result Date: 11/30/2024 Interpreted By: Jonas Baxter, STUDY: CT CHEST WO IV CONTRAST; 11/29/2024 5:38 pm INDICATION:Signs/Symptoms:pre-op cardiac surgery; assess ascending for size and atherosclerosis. COMPARISON: None. ACCESSION NUMBER(S): [id number] ORDERING CLINICIAN: IRINEO LAUGHLIN TECHNIQUE: Helical data acquisition of the chest was obtained without IV contrast material. Images were reformatted in axial, coronal, and sagittal planes. FINDINGS: LUNGS AND AIRWAYS: The trachea and central airways are patent.No endobronchial lesion. In the posterolateral right lower [...] unremarkable. 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 Chest wall soft tissues otherwise unremarkable. There aredegenerative changes in the thoracic spine. There is no convincing evidence for thoracic aggressiveosteolytic or osteoblastic lesion. 1. Normal caliber ascending aorta with the only ascending aortic calcifications noted at the sino-tubular junction. 2. There is a noncalcified parenchymal right lower lobe pulmonary nodule measuring 6 mm which will warrant follow-up per Fleischner guidelines. There is also pleural-based opacity thewhich has a more flattened appearance though does [...] Fleischner Society 2017, Radiology. 2017 Efren;284 (1):228-243.) [email or web address] Signed by: Jonas Baxter 11/30/2024 8:56 AM Dictation workstation: [id number] Lower extremity vein mapping bilateral Result Date: 11/30/2024 Interpreted By: Jonas Baxter, STUDY: [facility] LOWER EXTREMITY VEIN MAPPING BILATERAL; ; 11/29/2024 5:34 pm INDICATION: Signs/Symptoms:pre-op CABG. ,Z01.810 Encounter for preprocedural cardiovascular examination,Z01.818 Encounter for other preprocedural examination,I24.81 Acute coronary microva scular dysfunction (Multi) COMPARISON: None. ACCESSION NUMBER(S): [id number] ORDERING CLINICIAN: IRINEO LAUGHLIN TECHNIQUE: Sonographic lower [...] x 0.34; distal 0.23 x 0.33 Right lessersaphenous Vein: Proximal 0.08 x 0.10; mid 0.14 x 0.09; distal 0.10 x 0.19 Left great saphenous veinabove knee: Proximal 0.81 x 1.00; mid 0.31 x 0.35; distal 0.30 x 0.29 Left great saphenous vein below knee: Proximal 0.25 x 0.46; mid 0.27 x 0.37; distal 0.13 x 0.16 Left lesser saphenous Vein: Proximal 0.23 x 0.30; mid 0.10 x 0.11; distal 0.17 x 0.26 Sonographic vein mapping procedure as detailed above MACRO: None Signed by: Jonas Baxter 11/30/2024 8:39 AM Dictation workstation: [id number] Carotid duplex bilateral Result Date: 11/30/2024 Interpreted By: Jonas Baxter, STUDY: [facility] US CAROTID ARTERY DUPLEX BILATERAL; 11/29/2024 5:34 pm INDICATION: Signs/Symptoms:pre-op cardiac surgery. ,Z01.810 Encounter for preprocedural cardiovascular examination,Z09 Encounter for follow-up examination after completed treatment for conditionsother than malignant neoplasm COMPARISON: None. ACCESSION NUMBER(S): [id number] ORDERING CLINICIAN: IRINEO LAUGHLIN TECHNIQUE: Vascular ultrasound [...] cm/s. ICA 91.0 cm. ECA 143.2 cm/s. Theratio of the peak systolic velocity of the right ICA/CCA is 1.1. RIGHT VERTEBRAL ARTERY: Antegrade flow LEFT: On the left there is calcific plaque at the proximal internal carotid artery without subst antial luminal narrowing or peak systolic velocity elevation.. The peak systolic velocities are as follows: LEFT SIDE PEAK SYSTOLIC VELOCITY TABLE: CCA 80.3 cm/s,17.7 cm/s. ICA 153.3. ECA 73.6 cm/s. The ratio of the peak systolic velocity of the left ICA/CCA is 1.9. LEFT VERTEBRAL ARTERY: Antegradeflow Positive for calcific plaque bilaterally of both proximal internal carotid arteries. However no peak systolic velocity elevation to suggest significant stenosis. Less than 50% luminal narrowing. The velocity criteria are extrapolated from diameter data as defined by the Society of Radiologists in Ul trasound Consensus Conference Radiology 2003; 229;340-346. MACRO: None Signed by: Jonas Baxter 11/30/2024 8:23 AM Dictation workstation: [id number] Assessment/Plan #NSTEMI #CAD (Hx of prior PCI of the proximal LAD and left Circumflex) #HLD #HTN On 11/28/24 patient underwent left cardiac catheterization with Dr. Ndiaye. Finding the procedure revealing severe coronary artery disease as evident by 40 to 50% distal left main, subtotal occlusion of the ostial LAD with mild to moderate disease of the mid LAD and left circumflex with good post PCI result of the proximal circumflex. Mild LV systolic dysfunction with LVEF around 50% with anterior wall hypokinesis. Recommendations for aggressive coronaries factor modification and referral [facility] for evaluation for either high risk PCI of the distal left main and proximal LAD versus two-vessel bypass surgery. -Dr. Todd updated -Cardiology following; appreciate recommendations -Continue Heparin IV -Continue stain -EKG daily -Will obtain standard pre-operative imaging with further recommendations to follow once imaging is reviewed. Thank you for the consult. -Spoke to patient and patients daughter Cheyenne regarding POC in detail, all questions answered. #Lung nodule CT scan of the chest shows a right lower lobe pulmonary nodule measuring 6 mm. I spent 60 minutes in the professional and overall care of this patient. [1] No family history on file. [2] atorvastatin, 80 mg, oral, Daily carvedilol, 6.25 mg, oral, BID heparin, 60 Units/kg, intravenous, Once hydroCHLOROthiazide, 12.5 mg, oral, Daily oxybutynin, 5 mg, oral, BID pantoprazole, 40 mg, oral, Daily before breakfast polyethylene glycol, 17 g, oral, Daily [3] heparin, 0-4,000 Units/hr, Last Rate: 600 Units/hr (11/30/24 0518) [4] PRN medications: acetaminophen OR acetaminophen OR acetaminophen, heparin, ondansetron OR ondansetron [facility] Work Phone: [phone] Consult note* SRIDHAR Diaz CNP - 11/30/2024 9:26 AM EDTAssociated Order(s): Inpatient consult to Cardiothoracic Surgery Inpatient consult to Cardiothoracic Surgery Consult performed by: ABDULLAHI Diaz Consult ordered by: ABDULLAHI Rome Reason For Consult CABG evaluation vs high risk PCI History Of Present Illness Atiya Jha is a 84 y.o. female presenting with past medical history of CAD s/p heart stent x 3most previous stent done in November 2023 to LAD and circumflex in the past, HTN, HLD and mild aortic stenosis. Presented to [facility] ED on 11/26 with complaints of shortness of breath and worsening fatigue. She did have elevated troponin >700 at that time and was admitted to OSH for further evaluation. Of note, patient stopped asa and Plavix for ~5 days for upcoming urological procedurethat was scheduled this coming week. Otherwise has been compliant with medication regimen. On 11/28/24 patient underwent left cardiac catheterization with Dr. Ndiaye. Finding the procedure revealing severe coronary artery disease as evident by 40 to 50% distal left main, subtotal occlusion of the ostial LAD with mild to moderate disease of the mid LAD and left circumflex with good post PCI result of the proximal circumflex. Mild LV systolic dysfunction with LVEF around 50% with anterior wall hypokinesis. Recommendations for aggressive coronaries factor modification [facility] for either high risk PCI of the distal left main and proximal LAD versus two-vessel bypass surgery. Patient was then transferred to [facility] for further recommendations. At the time of consultation patient is in no acute distress, remain afebrile, hemodynamically stable, and maintaining adequate oxygen saturation on room air. Denies current chest pain and states overthe last few days she has only noticed increased fatigue and shortness of breath with activity. Also noticed pain x 1 month under left axillary refion radiating down side. She is currently on IV heparin, aspirin and Plavix are currently on hold. Dr. Todd updated, will obtain standard pre-operativeimaging with further recommendations to follow once imaging is reviewed. Thank you for the consult. Past Medical History She has no past medical history on file. Surgical History She has a past surgical history that includes Other surgical history (06/04/2022); Other surgical history (06/04/2022); Other surgical history (06/04/2022); Other surgical history (06/04/2022); Othersurgical history (06/04/2022); Other surgical history (06/04/2022); Coronary angioplasty with stent(01/2023); and Trigger finger release. Social History She reports that she has never smoked. She has never used smokeless tobacco. She reports current alcohol use. She reports that she does not use drugs. Family History Family History[1] Allergies Patient has no known allergies. Review of Systems Constitutional: Positive for fatigue. Respiratory: Positive for chest tightness and shortness of breath. Physical Exam Vitals and nursing note reviewed. Constitutional: General: She is not in acute distress. Appearance: Normal appearance. She is not ill-appearing. HENT: Head: Normocephalic and atraumatic. Eyes: Pupils: Pupils are equal, round, and reactive to light. Pupils are equal. Cardiovascular: Rate and Rhythm: Normal rate and regular rhythm. Pulmonary: Effort: Pulmonary effort is normal. No respiratory distress. Chest: Chest wall: No tenderness. Abdominal: General: Abdomen is flat. Bowel sounds are normal. Palpations: Abdomen is soft. Genitourinary: Comments: Voiding freely Skin: General: Skin is warm and dry. Neurological: General: No focal deficit present. Mental Status: She is alert and oriented to person, place, and time. Psychiatric: Attention and Perception: Attention normal. Mood and Affect: Mood normal. Behavior: Behavior is cooperative. Last Recorded Vitals Blood pressure 132/67, pulse 66, temperature 36.4 C (97.5 F), temperature source Temporal, resp. rate 18, SpO2 93%. Relevant Results Scheduled medications Scheduled Medications[2] Continuous medications Continuous Medications[3] PRN medications PRN Medications[4] Results for orders placed or performed during the hospital encounter of 11/29/24 (from the past 24 hours) Heparin Assay Result Value Ref Range Heparin Unfractionated 0.5 See Comment Below for Therapeutic Ranges IU/mL Heparin Assay Result Value Ref Range Heparin Unfractionated 0.7 See Comment Below for Therapeutic Ranges IU/mL Urinalysis with Reflex Microscopic Result Value Ref Range Color, Urine Yellow Light-Yellow, Yellow, Dark-Yellow Appearance, Urine Clear Clear Specific [place], Urine 1.021 1.005 - 1.035 pH, Urine 5.5 5.0, 5.5, 6.0, 6.5, 7.0, 7.5, 8.0 Protein, Urine NEGATIVE NEGATIVE, 10 (TRACE), 20 (TRACE) mg/dL Glucose, Urine Normal Normal mg/dL Blood, Urine 0.1 (1+) (A) NEGATIVE mg/dL Ketones, Urine NEGATIVE NEGATIVE mg/dL Bilirubin, Urine NEGATIVE NEGATIVE mg/dL Urobilinogen, Urine Normal Normal mg/dL Nitrite, Urine NEGATIVE NEGATIVE Leukocyte Esterase, Urine 500 Michelle/uL (A) NEGATIVE Urine Slater Tube Result Value Ref Range Extra Tube Hold for add-ons. Microscopic Only, Urine Result Value Ref Range WBC, Urine >50 (A) 1-5, NONE /HPF RBC, Urine 6-10 (A) NONE, 1-2, 3-5 /HPF Squamous Epithelial Cells, Urine 1-9 (SPARSE) Reference range not established. /HPF Bacteria, Urine 1+ (A) NONE SEEN /HPF Mucus, Urine FEW Reference range not established. /LPF Comprehensive Metabolic Panel Result Value Ref Range Glucose 107 (H) 74 - 99 mg/dL Sodium 138 136 - 145 mmol/L Potassium 3.8 3.5 - 5.3 mmol/L Chloride 104 98 - 107 mmol/L Bicarbonate 27 21 - 32 mmol/L Anion Gap 11 10 - 20 mmol/L Urea Nitrogen 16 6 - 23 mg/dL Creatinine 0.71 0.50 - 1.05 mg/dL eGFR 83 >60 mL/min/1.73m*2 Calcium 9.3 8.6 - 10.3 mg/dL Albumin 3.8 3.4 - 5.0 g/dL Alkaline Phosphatase 42 33 - 136 U/L Total Protein 6.0 (L) 6.4 - 8.2 g/dL AST 15 9 - 39 U/L Bilirubin, Total 0.8 0.0 - 1.2 mg/dL ALT 10 7 - 45 U/L Coagulation Screen Result Value Ref Range Protime 11.3 9.8 - 12.4 seconds INR 1.0 0.9 - 1.1 aPTT 129 (HH) 26 - 36 seconds CBC and Auto Differential Result Value Ref Range WBC 5.5 4.4 - 11.3 x10*3/uL nRBC 0.0 0.0 - 0.0 /100 WBCs RBC 3.59 (L) 4.00 - 5.20 x10*6/uL Hemoglobin 11.3 (L) 12.0 - 16.0 g/dL Hematocrit 34.1 (L) 36.0 - 46.0 % MCV 95 80 - 100 fL MCH 31.5 26.0 - 34.0 pg MCHC 33.1 32.0 - 36.0 g/dL RDW 13.2 11.5 - 14.5 % Platelets 147 (L) 150 - 450 x10*3/uL Neutrophils % 49.6 40.0 - 80.0 % Immature Granulocytes %, Automated 0.2 0.0 - 0.9 % Lymphocytes % 33.6 13.0 - 44.0 % Monocytes % 12.4 2.0 - 10.0 % Eosinophils % 3.5 0.0 - 6.0 % Basophils % 0.7 0.0 - 2.0 % Neutrophils Absolute 2.72 1.60 - 5.50 x10*3/uL Immature Granulocytes Absolute, Automated 0.01 0.00 - 0.50 x10*3/uL Lymphocytes Absolute 1.84 0.80 - 3.00 x10*3/uL Monocytes Absolute 0.68 0.05 - 0.80 x10*3/uL Eosinophils Absolute 0.19 0.00 - 0.40 x10*3/uL Basophils Absolute 0.04 0.00 - 0.10 x10*3/uL TSH with reflex to Free T4 if abnormal Result Value Ref Range Thyroid Stimulating Hormone 1.43 0.44 - 3.98 mIU/L Heparin Assay Result Value Ref Range Heparin Unfractionated 0.8 See Comment Below for Therapeutic Ranges IU/mL SST TOP Result Value Ref Range Extra Tube Hold for add-ons. Magnesium Result Value Ref Range Magnesium 1.98 1.60 - 2.40 mg/dL ECG 12 Lead Result Value Ref Range Ventricular Rate 78 BPM Atrial Rate 78 BPM OK Interval 192 ms QRS Duration 88 ms QT Interval 414 ms QTC Calculation(Bazett) 471 ms P [place] 81 degrees R [place] 63 degrees T [place] 88 degrees QRS Count 13 beats Q Onset 220 ms P Onset 124 ms P Offset 181 ms T Offset 427 ms QTC Fredericia 451 ms Heparin Assay Result Value Ref Range Heparin Unfractionated 0.8 See Comment Below for Therapeutic Ranges IU/mL ECG 12 Lead Result Date: 11/30/2024 Sinus rhythm with occasional Premature ventricular complexes Otherwise normal ECG No previous ECGs available CT chest wo IV contrast Result Date: 11/30/2024 Interpreted By: Jonas Baxter, STUDY: CT CHEST WO IV CONTRAST; 11/29/2024 5:38 pm INDICATION:Signs/Symptoms:pre-op cardiac surgery; assess ascending for size and atherosclerosis. COMPARISON: None. ACCESSION NUMBER(S): [id number] ORDERING CLINICIAN: IRINEO LAUGHLIN TECHNIQUE: Helical data acquisition of the chest was obtained without IV contrast material. Images were reformatted in axial, coronal, and sagittal planes. FINDINGS: LUNGS AND AIRWAYS: The trachea and central airways are patent.No endobronchial lesion. In the posterolateral right lower [...] unremarkable. 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 Chest wall soft tissues otherwise unremarkable. There aredegenerative changes in the thoracic spine. There is no convincing evidence for thoracic aggressiveosteolytic or osteoblastic lesion. 1. Normal caliber ascending aorta with the only ascending aortic calcifications noted at the sino-tubular junction. 2. There is a noncalcified parenchymal right lower lobe pulmonary nodule measuring 6 mm which will warrant follow-up per Fleischner guidelines. There is also pleural-based opacity thewhich has a more flattened appearance though does [...] Jonas Baxter 11/30/2024 8:56 AM Dictation workstation: [id number] Lower extremity vein mapping bilateral Result Date: 11/30/2024 Interpreted By: Jonas Baxter, STUDY: [facility] LOWER EXTREMITY VEIN MAPPING BILATERAL; ; 11/29/2024 5:34 pm INDICATION: Signs/Symptoms:pre-op CABG. ,Z01.810 Encounter for preprocedural cardiovascular examination,Z01.818 Encounter for other preprocedural examination,I24.81 Acute coronary microva scular dysfunction (Multi) COMPARISON: None. ACCESSION NUMBER(S): [id number] ORDERING CLINICIAN: IRINEO LAUGHLIN TECHNIQUE: Sonographic lower [...] x 0.34; distal 0.23 x 0.33 Right lessersaphenous Vein: Proximal 0.08 x 0.10; mid 0.14 x 0.09; distal 0.10 x 0.19 Left great saphenous veinabove knee: Proximal 0.81 x 1.00; mid 0.31 x 0.35; distal 0.30 x 0.29 Left great saphenous vein below knee: Proximal 0.25 x 0.46; mid 0.27 x 0.37; distal 0.13 x 0.16 Left lesser saphenous Vein: Proximal 0.23 x 0.30; mid 0.10 x 0.11; distal 0.17 x 0.26 Sonographic vein mapping procedure as detailed above MACRO: None Signed by: Jonas Baxter 11/30/2024 8:39 AM Dictation workstation: [id number] Carotid duplex bilateral Result Date: 11/30/2024 Interpreted By: Jonas Baxter, STUDY: [facility] US CAROTID ARTERY DUPLEX BILATERAL; 11/29/2024 5:34 pm INDICATION: Signs/Symptoms:pre-op cardiac surgery. ,Z01.810 Encounter for preprocedural cardiovascular examination,Z09 Encounter for follow-up examination after completed treatment for conditionsother than malignant neoplasm COMPARISON: None. ACCESSION NUMBER(S): [id number] ORDERING CLINICIAN: IRINEO LAUGHLIN TECHNIQUE: Vascular ultrasound [...] cm/s. ICA 91.0 cm. ECA 143.2 cm/s. Theratio of the peak systolic velocity of the right ICA/CCA is 1.1. RIGHT VERTEBRAL ARTERY: Antegrade flow LEFT: On the left there is calcific plaque at the proximal internal carotid artery without subst antial luminal narrowing or peak systolic velocity elevation.. The peak systolic velocities are as follows: LEFT SIDE PEAK SYSTOLIC VELOCITY TABLE: CCA 80.3 cm/s,17.7 cm/s. ICA 153.3. ECA 73.6 cm/s. The ratio of the peak systolic velocity of the left ICA/CCA is 1.9. LEFT VERTEBRAL ARTERY: Antegradeflow Positive for calcific plaque bilaterally of both proximal internal carotid arteries. However no peak systolic velocity elevation to suggest significant stenosis. Less than 50% luminal narrowing. The velocity criteria are extrapolated from diameter data as defined by the Society of Radiologists in Ul trasound Consensus Conference Radiology 2003; 229;340-346. MACRO: None Signed by: Jonas Baxter 11/30/2024 8:23 AM Dictation workstation: [id number] Assessment/Plan #NSTEMI #CAD (Hx of prior PCI of the proximal LAD and left Circumflex) #HLD #HTN On 11/28/24 patient underwent left cardiac catheterization with Dr. Ndiaye. Finding the procedure revealing severe coronary artery disease as evident by 40 to 50% distal left main, subtotal occlusion of the ostial LAD with mild to moderate disease of the mid LAD and left circumflex with good post PCI result of the proximal circumflex. Mild LV systolic dysfunction with LVEF around 50% with anterior wall hypokinesis. Recommendations for aggressive coronaries factor modification and referral [facility] for evaluation for either high risk PCI of the distal left main and proximal LAD versus two-vessel bypass surgery. -Dr. Todd updated -Cardiology following; appreciate recommendations -Continue Heparin IV -Continue stain -EKG daily -Will obtain standard pre-operative imaging with further recommendations to follow once imaging is reviewed. Thank you for the consult. -Spoke to patient and patients daughter Cheyenne regarding POC in detail, all questions answered. #Lung nodule CT scan of the chest shows a right lower lobe pulmonary nodule measuring 6 mm. I spent 60 minutes in the professional and overall care of this patient. [1] No family history on file. [2] atorvastatin, 80 mg, oral, Daily carvedilol, 6.25 mg, oral, BID heparin, 60 Units/kg, intravenous, Once hydroCHLOROthiazide, 12.5 mg, oral, Daily oxybutynin, 5 mg, oral, BID pantoprazole, 40 mg, oral, Daily before breakfast polyethylene glycol, 17 g, oral, Daily [3] heparin, 0-4,000 Units/hr, Last Rate: 600 Units/hr (11/30/24 0518) [4] PRN medications: acetaminophen OR acetaminophen OR acetaminophen, heparin, ondansetron OR ondansetron * Giovani Prado MD - 11/30/2024 8:07 AM EDTAssociated Order(s): IP CONSULT TO CARDIOLOGY Cardiology Consult Note Date: 11/30/2024 Patient name: Atiya Jha Date of admission: 11/29/2024 10:53 AM Date of : 1940 Time of Consult: 8:07 AM Consulting Wellness Trainer: Dr. Giovani Portillo APRN, ALICJA Primary Wellness Trainer: Dr Ndiaye Referring Provider: Dr Min Admission Diagnosis: NSTEMI (non-ST elevated myocardial infarction) (Multi) History of Present Illness: Atiya Jha is a 84 y.o. female patient who is being at the request of Dr. Min for inpatient consultation of angina. She was admitted on 11/29/2024. Previous [facility] and [facility] records have been reviewed in detail. Patient with a history of CAD, hypertension, dyslipidemia, aortic stenosis Patient states that she was seeing Dr. Aury Sargent for urological issue she stopped taking heraspirin and Plavix she went in for a heart catheterization finding revealed an ostial LAD lesion going into her left main they called Dr. Howard decided to transfer the patient here for possible CABGversus high risk PCI. Patient states that she has been feeling pretty good lately she has not been feeling any chest pain but she was supposed to have this growth removed from her ureter urethra so she stopped taking her aspirin and Plavix and she was getting cardiac clearance for this procedure. Denies chest pain, shortness of breath, nausea, vomiting, PND, orthopnea, claudications EKG ordered Sodium 138 Potassium 3.8 BUN 16 Creatinine 0.71 INR 1.0 Hemoglobin 11.3 Hematocrit 34.1 Platelets 147 Cardiac history 11/28/24 heart cath Ostial LAD lesion going into left main Echo 11/25/2024 EF 55% Mild aortic stenosis Allergies: Allergies[1] Past Medical History: Medical History[2] Past Surgical History: Surgical History[3] Family History: Family History[4] Social History: Social History[5] CURRENT INPATIENT MEDICATIONS Scheduled Medications[6] Continuous Medications[7] Current Outpatient Medications Medication Instructions alendronate (FOSAMAX) 70 mg, oral, Every 7 days, Take in the morning with a full glass of water, andrew empty stomach, and do not take anything else by mouth or lie down for the next 30 min. aspirin 81 mg, Nightly atorvastatin (LIPITOR) 80 mg, oral, Daily calcium carbonate-vitamin D3 500 mg-5 mcg (200 unit) tablet 1 tablet, oral, Daily carvedilol (COREG) 6.25 mg, oral, 2 times daily (morning and late afternoon) cholecalciferol (VITAMIN D-3) 1,000 Units, oral, Daily RT clopidogrel (PLAVIX) 75 mg, oral, Daily docusate sodium (COLACE) 100 mg, oral, 2 times daily estradiol (ESTRACE) 2 g, vaginal, Daily PRN hydroCHLOROthiazide (HYDRODiuril) 25 mg tablet 0.5 tablets, oral, Daily irbesartan (AVAPRO) 75 mg, Nightly mirabegron (MYRBETRIQ) 25 mg, oral, Nightly nitroglycerin (NITROSTAT) 0.4 mg, sublingual, Every 5 min PRN, Up to 3 doses pantoprazole (ProtoNix) 40 mg EC tablet 1 tablet, oral, Daily before breakfast telmisartan (MICARDIS) 20 mg, oral, Daily, Patient has Not been taking this at home. States she is unsure if she was suppose to continue. Review of Systems: 12 point review of systems was obtained in detail and is negative other than that detailed above. Vital Signs: Vitals: 11/29/24 1504 11/29/24 1919 11/29/24 2308 11/30/24 0720 BP: 131/62 132/73 142/75 132/67 BP Location: Right arm Right arm Patient Position: Sitting Lying Pulse: 66 77 73 66 Resp: 18 18 Temp: 36.9 C (98.4 F) 36.9 C (98.4 F) 36 C (96.8 F) 36.4 C (97.5 F) TempSrc: Temporal Temporal SpO2: 93% 94% 97% 93% No intake or output data in the 24 hours ending 11/30/24 0807 Wt Readings from Last 4 Encounters: 11/28/24 64 kg (141 lb 1.5 oz) 10/26/24 67.6 kg (149 lb) 05/30/24 65.5 kg (144 lb 6.4 oz) 01/12/24 67.1 kg (148 lb) Physical Examination: GENERAL APPEARANCE: Well developed, well nourished, in no acute distress. CHEST: Symmetric and non-tender. INTEGUMENT: Skin warm and dry, without gross excoriationis or lesions. HEENT: No gross abnormalities of conjunctiva, teeth, gums, oral mucosa NECK: Supple, no JVD, no bruit. Thyroid not palpable. Carotid upstrokes normal. NEURO/PSHCY: Alert and oriented x3; appropriate behavior and responses and responses, grossly normal cerebellar function with normal balance and coordination LUNGS: Clear to auscultation bilaterally; normal respiratory effort. HEART: S1, S2 regular with 2 out of 6 systolic murmur ABDOMEN: Soft, nontender, no palpable hepatosplenomegaly, no mases, no bruits. Abdominal aorta not noted to be enlarged. MUSCULOSKELETAL: Ambulatory with normal tandem gait. EXTREMITIES: Warm with good color, no clubbing or cyanois. There is no edema noted. PERIPHERAL VASCULAR: Pulses present and equally palpable; 2+ throughout. No femoral bruits. Lab: CBC: Results from last 7 days Lab Units 11/30/24 0356 WBC AUTO x10*3/uL 5.5 RBC AUTO x10*6/uL 3.59* HEMOGLOBIN g/dL 11.3* HEMATOCRIT % 34.1* MCV fL 95 MCH pg 31.5 MCHC g/dL 33.1 RDW % 13.2 PLATELETS AUTO x10*3/uL 147* CMP: Results from last 7 days Lab Units 11/30/24 0356 SODIUM mmol/L 138 POTASSIUM mmol/L 3.8 CHLORIDE mmol/L 104 CO2 mmol/L 27 BUN mg/dL 16 CREATININE mg/dL 0.71 GLUCOSE mg/dL 107* PROTEIN TOTAL g/dL 6.0* CALCIUM mg/dL 9.3 BILIRUBIN TOTAL mg/dL 0.8 ALK PHOS U/L 42 AST U/L 15 ALT U/L 10 BMP: Results from last 7 days Lab Units 11/30/24 0356 SODIUM mmol/L 138 POTASSIUM mmol/L 3.8 CHLORIDE mmol/L 104 CO2 mmol/L 27 BUN mg/dL 16 CREATININE mg/dL 0.71 CALCIUM mg/dL 9.3 GLUCOSE mg/dL 107* Radiology: CT chest wo IV contrast (Results Pending) Carotid duplex bilateral (Results Pending) Lower extremity vein mapping bilateral (Results Pending) Problem List: Problem List[8] Assessment: CAD Hypertension Dyslipidemia EF 55% Mild aortic stenosis Plan: Tele monitoring 2d echo done rosetta Daily EKG's Aspirin and Plavix for now on hold Continue the heparin drip for now CT surgery consult for possible CABG Coreg 6.25 mg p.o. twice daily Lipitor 80 mg daily Hydrochlorothiazide 12.5 mg daily Check magnesium level keep greater than 2.0 Matt Portillo CNP [facility] Of note, this documentation is completed using the [employer] system (voice recognition software). There may be spelling and/or grammatical errors that were not corrected prior to final submission. I have personally interviewed and examined the patient. I have personally and independently reviewed labs and diagnostic testing. I have personally verified the elements of the history and physical listed above and changes, if any, are noted. I have personally reviewed the assessment and plan as documented by LA NENA Hamilton, ALICJA and baljeet. In summary, Mrs. Atiya Jha has a history of atherosclerotic heart disease with previous angioplasty and stenting of the circumflex and LAD. Most recent intervention was on the LAD in November 2023. She has a history of hypertension, mixed hyperlipidemia, and mild aortic stenosis. No history of diabetes mellitus or tobacco use. She was previously noted to have mild LV dysfunction with subsequent studies showing a normal ejection fraction. She was most recently seen by Dr. Jamia Ndiaye for preoperative assessment prior to planned urologic surgery. She was doing well at the time. She has had hematuria and was found to have a growth on her urethra. She held her aspirin and Plavix for a few days in preparation for surgery and subsequently developed recurrent chest discomfort. She was admitted to [facility] and was noted tohave an acute non-STEMI with a troponin level of 700. EKG did not show any acute ST changes. She underwent repeat cardiac catheterization and was found to have ostial stenosis of the left anterior descending artery. It was opted to have her transferred to [facility] for evaluation of possible coronary artery bypass grafting surgery versus high risk PCI. The patient currently is sitting up in a chair and is resting comfortably. No ongoing chest pain. She denies any shortness of breath. Her vital signs are stable. Oxygen saturation 97%. Cardiac rhythm is regular. Lungs are clear. No significant peripheral edema. Lab studies show a normal CBC with exception of hemoglobin 11.3. Comprehensive metabolic profile is normal. EKG shows normal sinus rhythm without acute ST changes. Occasional PVCs. CT scan of the chest shows a right lower lobe pulmonary nodule measuring 6 mm. Cardiothoracic surgery has been consulted. Further recommendations to follow. [1] No Known Allergies [2] No past medical history on file. [3] Past Surgical History: Procedure Laterality Date CORONARY ANGIOPLASTY WITH STENT PLACEMENT 01/2023 OTHER SURGICAL HISTORY 06/04/2022 Cataract surgery OTHER SURGICAL HISTORY 06/04/2022 Blepharoplasty OTHER SURGICAL HISTORY 06/04/2022 Abdominoplasty OTHER SURGICAL HISTORY 06/04/2022 Hip replacement OTHER SURGICAL HISTORY 06/04/2022 Complete colonoscopy OTHER SURGICAL HISTORY 06/04/2022 Percutaneous transluminal coronary angioplasty TRIGGER FINGER RELEASE [4] No family history on file. [5] Social History Tobacco Use Smoking status: Never Smokeless tobacco: Never Substance Use Topics Alcohol use: Yes Comment: social Drug use: Never [6] atorvastatin, 80 mg, oral, Daily carvedilol, 6.25 mg, oral, BID heparin, 60 Units/kg, intravenous, Once hydroCHLOROthiazide, 12.5 mg, oral, Daily oxybutynin, 5 mg, oral, BID pantoprazole, 40 mg, oral, Daily before breakfast polyethylene glycol, 17 g, oral, Daily [7] heparin, 0-4,000 Units/hr, Last Rate: 600 Units/hr (11/30/24517) [8] Patient Active Problem List Diagnosis Two-vessel coronary artery disease Congestive heart failure, NYHA class 2 and ACC/AHA stage C Essential hypertension Mixed hyperlipidemia History of PTCA Dysuria Weakness Never smoked cigarettes Mild aortic stenosis BMI 24.0-24.9, adult Preop cardiovascular exam NSTEMI (non-ST elevated myocardial infarction) (Multi) documented in this [facility] Work Phone: 1(805) 505-656604-30-2025 NoteSonographic vein mapping procedure as detailed above MACRO: None Signed by: Jonas Baxter 11/30/2024 8:39 AM Dictation workstation: [id number] Consult note* Giovani Prado MD - 11/30/2024 8:07 AM EDTAssociated Order(s): IP CONSULT TO CARDIOLOGY Cardiology Consult Note Date: 11/30/2024 Patient name: Atiya Jha Date of admission: 11/29/2024 10:53 AM Date of : 1940 Time of Consult: 8:07 AM Consulting Wellness Trainer: Dr. Giovani Portillo APRN, [employer] Primary Wellness Trainer: Dr Ndiaye Referring Provider: Dr Min Admission Diagnosis: NSTEMI (non-ST elevated myocardial infarction) (Multi) History of Present Illness: Atiya Jha is a 84 y.o. female patient who is being at the request of Dr. Min for inpatient consultation of angina. She was admitted on 11/29/2024. Previous [facility] and [facility] records have been reviewed in detail. Patient with a history of CAD, hypertension, dyslipidemia, aortic stenosis Patient states that she was seeing Dr. Aury Sargent for urological issue she stopped taking heraspirin and Plavix she went in for a heart catheterization finding revealed an ostial LAD lesion going into her left main they called Dr. Howard decided to transfer the patient here for possible CABGversus high risk PCI. Patient states that she has been feeling pretty good lately she has not been feeling any chest pain but she was supposed to have this growth removed from her ureter urethra so she stopped taking her aspirin and Plavix and she was getting cardiac clearance for this procedure. Denies chest pain, shortness of breath, nausea, vomiting, PND, orthopnea, claudications EKG ordered Sodium 138 Potassium 3.8 BUN 16 Creatinine 0.71 INR 1.0 Hemoglobin 11.3 Hematocrit 34.1 Platelets 147 Cardiac history 11/28/24 heart cath Ostial LAD lesion going into left main Echo 11/25/2024 EF 55% Mild aortic stenosis Allergies: Allergies[1] Past Medical History: Medical History[2] Past Surgical History: Surgical History[3] Family History: Family History[4] Social History: Social History[5] CURRENT INPATIENT MEDICATIONS Scheduled Medications[6] Continuous Medications[7] Current Outpatient Medications Medication Instructions alendronate (FOSAMAX) 70 mg, oral, Every 7 days, Take in the morning with a full glass of water, andrew empty stomach, and do not take anything else by mouth or lie down for the next 30 min. aspirin 81 mg, Nightly atorvastatin (LIPITOR) 80 mg, oral, Daily calcium carbonate-vitamin D3 500 mg-5 mcg (200 unit) tablet 1 tablet, oral, Daily carvedilol (COREG) 6.25 mg, oral, 2 times daily (morning and late afternoon) cholecalciferol (VITAMIN D-3) 1,000 Units, oral, Daily RT clopidogrel (PLAVIX) 75 mg, oral, Daily docusate sodium (COLACE) 100 mg, oral, 2 times daily estradiol (ESTRACE) 2 g, vaginal, Daily PRN hydroCHLOROthiazide (HYDRODiuril) 25 mg tablet 0.5 tablets, oral, Daily irbesartan (AVAPRO) 75 mg, Nightly mirabegron (MYRBETRIQ) 25 mg, oral, Nightly nitroglycerin (NITROSTAT) 0.4 mg, sublingual, Every 5 min PRN, Up to 3 doses pantoprazole (ProtoNix) 40 mg EC tablet 1 tablet, oral, Daily before breakfast telmisartan (MICARDIS) 20 mg, oral, Daily, Patient has Not been taking this at home. States she is unsure if she was suppose to continue. Review of Systems: 12 point review of systems was obtained in detail and is negative other than that detailed above. Vital Signs: Vitals: 11/29/24 1504 11/29/24 1919 11/29/24 2308 11/30/24 0720 BP: 131/62 132/73 142/75 132/67 BP Location: Right arm Right arm Patient Position: Sitting Lying Pulse: 66 77 73 66 Resp: 18 18 Temp: 36.9 C (98.4 F) 36.9 C (98.4 F) 36 C (96.8 F) 36.4 C (97.5 F) TempSrc: Temporal Temporal SpO2: 93% 94% 97% 93% No intake or output data in the 24 hours ending 11/30/24 0807 Wt Readings from Last 4 Encounters: 11/28/24 64 kg (141 lb 1.5 oz) 10/26/24 67.6 kg (149 lb) 05/30/24 65.5 kg (144 lb 6.4 oz) 01/12/24 67.1 kg (148 lb) Physical Examination: GENERAL APPEARANCE: Well developed, well nourished, in no acute distress. CHEST: Symmetric and non-tender. INTEGUMENT: Skin warm and dry, without gross excoriationis or lesions. HEENT: No gross abnormalities of conjunctiva, teeth, gums, oral mucosa NECK: Supple, no JVD, no bruit. Thyroid not palpable. Carotid upstrokes normal. NEURO/PSHCY: Alert and oriented x3; appropriate behavior and responses and responses, grossly normal cerebellar function with normal balance and coordination LUNGS: Clear to auscultation bilaterally; normal respiratory effort. HEART: S1, S2 regular with 2 out of 6 systolic murmur ABDOMEN: Soft, nontender, no palpable hepatosplenomegaly, no mases, no bruits. Abdominal aorta not noted to be enlarged. MUSCULOSKELETAL: Ambulatory with normal tandem gait. EXTREMITIES: Warm with good color, no clubbing or cyanois. There is no edema noted. PERIPHERAL VASCULAR: Pulses present and equally palpable; 2+ throughout. No femoral bruits. Lab: CBC: Results from last 7 days Lab Units 11/30/24 0356 WBC AUTO x10*3/uL 5.5 RBC AUTO x10*6/uL 3.59* HEMOGLOBIN g/dL 11.3* HEMATOCRIT % 34.1* MCV fL 95 MCH pg 31.5 MCHC g/dL 33.1 RDW % 13.2 PLATELETS AUTO x10*3/uL 147* CMP: Results from last 7 days Lab Units 11/30/24 0356 SODIUM mmol/L 138 POTASSIUM mmol/L 3.8 CHLORIDE mmol/L 104 CO2 mmol/L 27 BUN mg/dL 16 CREATININE mg/dL 0.71 GLUCOSE mg/dL 107* PROTEIN TOTAL g/dL 6.0* CALCIUM mg/dL 9.3 BILIRUBIN TOTAL mg/dL 0.8 ALK PHOS U/L 42 AST U/L 15 ALT U/L 10 BMP: Results from last 7 days Lab Units 11/30/24 0356 SODIUM mmol/L 138 POTASSIUM mmol/L 3.8 CHLORIDE mmol/L 104 CO2 mmol/L 27 BUN mg/dL 16 CREATININE mg/dL 0.71 CALCIUM mg/dL 9.3 GLUCOSE mg/dL 107* Radiology: CT chest wo IV contrast (Results Pending) Carotid duplex bilateral (Results Pending) Lower extremity vein mapping bilateral (Results Pending) Problem List: Problem List[8] Assessment: CAD Hypertension Dyslipidemia EF 55% Mild aortic stenosis Plan: Tele monitoring 2d echo done rosetta Daily EKG's Aspirin and Plavix for now on hold Continue the heparin drip for now CT surgery consult for possible CABG Coreg 6.25 mg p.o. twice daily Lipitor 80 mg daily Hydrochlorothiazide 12.5 mg daily Check magnesium level keep greater than 2.0 Matt Portillo CNP [facility] Of note, this documentation is completed using the [employer] system (voice recognition software). There may be spelling and/or grammatical errors that were not corrected prior to final submission. I have personally interviewed and examined the patient. I have personally and independently reviewed labs and diagnostic testing. I have personally verified the elements of the history and physical listed above and changes, if any, are noted. I have personally reviewed the assessment and plan as documented by LA NENA Hamilton, ALICJA and concur. In summary, Mrs. Atiya Jha has a history of atherosclerotic heart disease with previous angioplasty and stenting of the circumflex and LAD. Most recent intervention was on the LAD in November 2023. She has a history of hypertension, mixed hyperlipidemia, and mild aortic stenosis. No history of diabetes mellitus or tobacco use. She was previously noted to have mild LV dysfunction with subsequent studies showing a normal ejection fraction. She was most recently seen by Dr. Jamia Ndiaye for preoperative assessment prior to planned urologic surgery. She was doing well at the time. She has had hematuria and was found to have a growth on her urethra. She held her aspirin and Plavix for a few days in preparation for surgery and subsequently developed recurrent chest discomfort. She was admitted to [facility] and was noted tohave an acute non-STEMI with a troponin level of 700. EKG did not show any acute ST changes. She underwent repeat cardiac catheterization and was found to have ostial stenosis of the left anterior descending artery. It was opted to have her transferred to [facility] for evaluation of possible coronary artery bypass grafting surgery versus high risk PCI. The patient currently is sitting up in a chair and is resting comfortably. No ongoing chest pain. She denies any shortness of breath. Her vital signs are stable. Oxygen saturation 97%. Cardiac rhythm is regular. Lungs are clear. No significant peripheral edema. Lab studies show a normal CBC with exception of hemoglobin 11.3. Comprehensive metabolic profile is normal. EKG shows normal sinus rhythm without acute ST changes. Occasional PVCs. CT scan of the chest shows a right lower lobe pulmonary nodule measuring 6 mm. Cardiothoracic surgery has been consulted. Further recommendations to follow. [1] No Known Allergies [2] No past medical history on file. [3] Past Surgical History: Procedure Laterality Date CORONARY ANGIOPLASTY WITH STENT PLACEMENT 01/2023 OTHER SURGICAL HISTORY 06/04/2022 Cataract surgery OTHER SURGICAL HISTORY 06/04/2022 Blepharoplasty OTHER SURGICAL HISTORY 06/04/2022 Abdominoplasty OTHER SURGICAL HISTORY 06/04/2022 Hip replacement OTHER SURGICAL HISTORY 06/04/2022 Complete colonoscopy OTHER SURGICAL HISTORY 06/04/2022 Percutaneous transluminal coronary angioplasty TRIGGER FINGER RELEASE [4] No family history on file. [5] Social History Tobacco Use Smoking status: Never Smokeless tobacco: Never Substance Use Topics Alcohol use: Yes Comment: social Drug use: Never [6] atorvastatin, 80 mg, oral, Daily carvedilol, 6.25 mg, oral, BID heparin, 60 Units/kg, intravenous, Once hydroCHLOROthiazide, 12.5 mg, oral, Daily oxybutynin, 5 mg, oral, BID pantoprazole, 40 mg, oral, Daily before breakfast polyethylene glycol, 17 g, oral, Daily [7] heparin, 0-4,000 Units/hr, Last Rate: 600 Units/hr (11/30/24 0518) [8] Patient Active Problem List Diagnosis Two-vessel coronary artery disease Congestive heart failure, NYHA class 2 and ACC/AHA stage C Essential hypertension Mixed hyperlipidemia History of PTCA Dysuria Weakness Never smoked cigarettes Mild aortic stenosis BMI 24.0-24.9, adult Preop cardiovascular exam NSTEMI (non-ST elevated myocardial infarction) (Multi) [facility] Work Phone: [phone]) 340-849904-29-2025 History and physical note* ABDULLAHI Cisneros - 11/29/2024 4:33 PM EDT History Of Present Illness Atiya Jha is a 84 y.o. female with PMH hypertension, hyperlipidemia, aortic stenosis, and CADwith multiple PCI who is presenting with NSTEMI. Patient had chest pain and went to [facility] in which she went for a cardiac catheterization which was on successful. Troponins exceeding 700.Patient stopped taking aspirin and Plavix a few days ago in preparation for urological surgery to be done by Dr. 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 Patient had been compliant with her medication regimen. Patient was then transferred to [facility] per Dr. Howard request. Plan for cardiac cath in a.m. Patient denies chest pain or shortness of breath. Denies abdominal pain, nausea, vomiting diarrhea. Denies fever or chills. Patient is on room air. Patient states she does get short of breath with ambulation. Patient admitted for further evaluation and treatment. Family at bedside Past Medical History She has no past medical history on file. Surgical History She has a past surgical history that includes Other surgical history (06/04/2022); Other surgical history (06/04/2022); Other surgical history (06/04/2022); Other surgical history (06/04/2022); Othersurgical history (06/04/2022); Other surgical history (06/04/2022); Coronary angioplasty with stent(01/2023); and Trigger finger release. Social History She reports that she has never smoked. She has never used smokeless tobacco. She reports current alcohol use. She reports that she does not use drugs. Family History Family History[1] Allergies Patient has no known allergies. Review of Systems Review of systems: 10 system were reviewed and were negative except what was mentioned in history of present illness Physical Exam Constitutional: Appearance: Normal appearance. HENT: Head: Normocephalic. Mouth/Throat: Mouth: Mucous membranes are moist. Eyes: Pupils: Pupils are equal, round, and reactive to light. Cardiovascular: Rate and Rhythm: Normal rate and regular rhythm. Heart sounds: Normal heart sounds, S1 normal and S2 normal. Pulmonary: Effort: Pulmonary effort is normal. Breath sounds: Normal breath sounds. Abdominal: General: Bowel sounds are normal. Palpations: Abdomen is soft. Musculoskeletal: General: Normal range of motion. Cervical back: Neck supple. Skin: General: Skin is warm. Neurological: Mental Status: She is alert and oriented to person, place, and time. Psychiatric: Mood and Affect: Mood normal. Behavior: Behavior normal. Last Recorded Vitals BP 131/62 (BP Location: Right arm, Patient Position: Sitting) Pulse 66 Temp 36.9 C (98.4 F) (Temporal) Resp 18 SpO2 93% Relevant Results CBC: CMP: No lab exists for component: GFRAA , LABGLOM , LABALBU BMP: No lab exists for component: LABALBU , GFRAA , LABGLOM Magnesium: Troponin: BNP: Lipid Panel: Imagining Cardiac Catheterization - Onbase Scan Ordered by an unspecified provider. Echocardiogram Ordered by an unspecified provider. Assessment/Plan NSTEMI Chest pain -Transferred from [facility] -Patient had cath yesterday with unsuccessful PCI was transferred per Dr. Howard request -Will continue heparin drip -Plan for cath in a.m. -Consult cardiology -Consult vascular surgery per cardiology -Vital signs every 8 hours -Recent echo showed normal LVEF -PT/OT evaluation HLD/HTN Mild aortic stenosis PCI to the LAD 11/24 -Resume home meds DVTp: Heparin drip PLAN: Home with family Valorie Henriquez APRN-[employer] Plan of care was discussed extensively with patient. Patient verbalized understanding through teachback method. All question and concerns addressed upon examination. Of note, this documentation is completed using the [employer] Dictation system (voice recognition software). There may be spelling and/or grammatical errors that were not corrected prior to final submission. [1] No family history on file. [facility] Work Phone: 1(218) 926-737404-28-2025 Progress note Author Jamia Ndiaye [facility] Note Date/Time November 28, 2024 1:2 6pm [facility] [address] [place] [address] Cardiology Progress Note Signed Patient: Atiya Jha MR#: [id number] : 1940 Acct:[id number] Age/Sex: 84 / F Adm Date: 5 Loc: Room: [address] [place] [address] Type: ADM IN Attending Dr: Nolan Ballesteros DO Copies to: ~ Date of Service: 11/28/2024 Subjective Principal diagnosis: Non-ST elevation myocardial infarction Interval history: Patient without chest pain Exam Physical Exam Vital Signs: Temp Pulse Resp BP Pulse Ox O2 Del Method 97.5 F L 76 18 139/69 97 Room Air 11/28/24 11:59 11/28/24 04:00 11/28/24 04:00 11/28/24 11:59 11/28/24 11:59 11/28/24 11:59 Const General: cooperative Neck Neck: supple Lymphatic: no lymphadenopathy noted Resp Effort & Inspection: normal respiratory effort Auscultation: clear to auscultation bilaterally Cardio Palpation: normal PMI Rate: regular rate Rhythm: regular rhythm Heart Sounds: S1 normal and S2 normal Skin General: dry skin Extrem General: full ROM and no clubbing, cyanosis or edema Objective Labs 11/28/24 04:51 11/28/24 04:51 Labs: Laboratory Results - last 24 hr 11/28/24 04:51 Corrected WBC 6.2 Uncorrected WBC Count 6.2 RBC 3.58 L Hgb 11.6 L Hct 33.5 L MCV 93.6 MCH 32.5 MCHC 34.8 RDW 14.0 Plt Count 155 MPV 7.6 Neut % (Auto) 58.6 Lymph % (Auto) 26.0 [place] % (Auto) 12.4 Eos % (Auto) 2.4 Baso % (Auto) 0.6 Nucleat RBC Rel Count 0.1 Neut # (Auto) 3.6 Lymph # (Auto) 1.6 [place] # (Auto) 0.8 Eos # (Auto) 0.2 Baso # (Auto) 0.0 Heparin Anti-Xa, Unfract 0.31 PHA Creatinine Clear 46.26 Sodium 139 Potassium 3.6 Chloride 106 Carbon Dioxide 25.7 Anion Gap 10.9 BUN 17 Creatinine 0.69 Est GFR (CKD-EPI) > 60.0 Glucose 99 Calcium 9.1 Troponin I High Sens 193 H* A&P - Cardiology (1) Non-ST elevation (NSTEMI) myocardial infarction: Assessment/Problem Details: Patient is status post PCI of the LAD and the left circumflex, currently with nochest pain. Plan: Resume dual antiplatelet therapy, schedule cardiac catheterization on Thursday. Code(s): I21.4 - Non-ST elevation (NSTEMI) myocardial infarction (2) Hypercholesterolemia: Plan: Continue high intensity statin Code(s): E78.00 - Pure hypercholesterolemia, unspecified (3) Aortic stenosis: Assessment/Problem Details: Mild based on the echocardiogram year ago. Asymptomatic Qualifiers: Cardiac valve disease etiology: nonrheumatic Qualified Code(s): I35.0 - Nonrheumatic aortic (valve) stenosis Plan: Continue to follow noninvasively Code(s): I35.0 - Nonrheumatic aortic (valve) stenosis (4) Primary hypertension: Assessment/Problem Details: Currently under control Plan: continue home medications Code(s): I10 - Essential (primary) hypertension Plan Will proceed with heart cath. Risk, benefit and alternative reviewed with patient. She understood and agreed Documented By: Jamia Ndiaye MD 11/28/24 7394 Signed By: <Electronically signed by MD Jamia Ndiaye> 11/28/24 6853 [facility] Work Phone: [phone]) 451-546604-28-2025 Procedure noteFIRKayla [place] [id number] Cardiac Catheterization Note Signed Patient: Atiya Jha MR#: [id number] : 1940 Acct:[id number] Age/Sex: 84 / F Adm Date: Loc: 4 Room: [address] [place] [address] Type: ADM IN Attending Dr: Nolan Ballesteros DO Copies to: DO Nolan Dean, DO Jamia Ndiaye MD~ Cardiac Catheterization (Left) DATE/PROVIDER 11/28/2024 Jamia Ndiaye MD INDICATION Presentation with acute current syndrome in patient with known history of coronary artery disease with prior PCI of the proximal LAD and left circumflex PRE PROCEDURE Cardiology Pre-Op Diagnosis: NSTEMI Frailty Scale: Managing Well ASA Classification: 2 Mallampati Score: Class II POST PROCEDURE Cardiology Post-Op Diagnosis: NSTEMI PROCEDURE PROCEDURE MEDICATIONS: 1 mg of Versed 50 mg of fentanyl 25 mg of Benadryl Approach: Femoral - Rt Left cardiac catheterization Coronary angiography Left ventriculogram Conscious sedation Cardiac fluoroscopy Hemodynamic measurement PROCEDURE DETAILS The right femoral approach was chosen because of failure of the right radial approach during last heart cath. After informed consent was obtained by explaining the risks, benefits and alternatives tothe patient, she signed informed consent. The patient was brought to the labor relations representative where the right groin was draped and prepared in the usual sterile fashion. A total of 10 mL of 2% lidocaine were used to anesthetize the right groin. By using the modified Seldinger technique, a 4-Venezuelan femoral arterial sheath was placed without difficulty. Initially, 4-[place]enezuelan JL4 was advanced to the left main andthe left main angiogram was performed and the catheter exchanged and 3D catheter was introduced andthe right coronary angiogram was performed then the catheter exchanged and an angled pigtail catheter across the aortic valve and then used to do the left ventriculogram. After the procedure was done, all catheters removed. HEMOSTASIS Obtained by manual Gracious access without any complication SUMMARY OF FINDINGS CCS Classification: CCS [id number] at rest or w/ any activity Dominance: Right Left Main: Left main arose from the left main cusp bifurcates LAD and left circumflex the left main has 40 to 50% distal stenosis LAD-Prox: The LAD was moderate size vessel stent was seen in the proximal portion there issubtotal occlusion in the proximal/ostial LAD with stenosis in the range of 99%. The mid LAD has mild to moderate disease in the range of 30 to 40% CIRC- Prox: Left circumflex moderate-sized vessel compromise 2 marginal branches a stent wasseen in the proximal portion with good angiographic result RCA: The right coronary artery was very large dominant system gives atypical branchesmild disease was seen throughout LEFT VENTRICLE EF %: 50 Left M ventriculogram was done in the standard 30 degree GEE projection. LVEF was around 50% with mild anterior wall hypokinesis HEMODYNAMICS Aortic pressure was 150/55 LV pressure was 145/10 with LVEDP of 10. Minor gradient was seen across the aortic valve on pullback FLUOROSCOPY Stent was seen in the proximal LAD and circumflex with calcification of the proximal coronary artery IMPRESSION 1. Severe coronary artery disease as evident by 40-50% distal left main, subtotal occlusion of the ostial LAD with mild to moderate disease of the mid LAD and left circumflex with good post PCI result of the proximal circumflex 2. Mild LV systolic dysfunction with LVEF around 50% with anterior wall hypokinesis 3. No mitral regurgitation 4. Minimal aortic stenosis RECOMMENDATIONS 1. Aggressive coronaries factor modification 2. I would recommend to refer to tertiary care center for evaluation for eitherhigh risk PCI of thedistal left main and proximal LAD versus two-vessel bypass surgery Documented By: Jamia Ndiaye MD 11/28/24 1340 Signed By: 11/28/24 1354 [facility]04-28-[place] [address] Cardiology Progress Note Signed Patient: Atiya Jha MR#: [id number] : 1940 Acct:[id number] Age/Sex: 84 / F Adm Date: 5 Loc: Room: [address] [place] [address] Type: ADM IN Attending Dr: Nolan Ballesteros DO Copies to: ~ Date of Service: 11/28/2024 Subjective Principal diagnosis: Non-ST elevation myocardial infarction Interval history: Patient without chest pain Exam Physical Exam Vital Signs: Temp Pulse Resp BP Pulse Ox O2 Del Method 97.5 F L 76 18 139/69 97 Room Air 11/28/24 11:59 11/28/24 04:00 11/28/24 04:00 11/28/24 11:59 11/28/24 11:59 11/28/24 11:59 Const General: cooperative Neck Neck: supple Lymphatic: no lymphadenopathy noted Resp Effort & Inspection: normal respiratory effort Auscultation: clear to auscultation bilaterally Cardio Palpation: normal PMI Rate: regular rate Rhythm: regular rhythm Heart Sounds: S1 normal and S2 normal Skin General: dry skin Extrem General: full ROM and no clubbing, cyanosis or edema Objective Labs 11/28/24 04:51 11/28/24 04:51 Labs: Laboratory Results - last 24 hr 11/28/24 04:51 Corrected WBC 6.2 Uncorrected WBC Count 6.2 RBC 3.58 L Hgb 11.6 L Hct 33.5 L MCV 93.6 MCH 32.5 MCHC 34.8 RDW 14.0 Plt Count 155 MPV 7.6 Neut % (Auto) 58.6 Lymph % (Auto) 26.0 [place] % (Auto) 12.4 Eos % (Auto) 2.4 Baso % (Auto) 0.6 Nucleat RBC Rel Count 0.1 Neut # (Auto) 3.6 Lymph # (Auto) 1.6 [place] # (Auto) 0.8 Eos # (Auto) 0.2 Baso # (Auto) 0.0 Heparin Anti-Xa, Unfract 0.31 PHA Creatinine Clear 46.26 Sodium 139 Potassium 3.6 Chloride 106 Carbon Dioxide 25.7 Anion Gap 10.9 BUN 17 Creatinine 0.69 Est GFR (CKD-EPI) > 60.0 Glucose 99 Calcium 9.1 Troponin I High Sens 193 H* A&P - Cardiology (1) Non-ST elevation (NSTEMI) myocardial infarction: Assessment/Problem Details: Patient is status post PCI of the LAD and the left circumflex, currently with nochest pain. Plan: Resume dual antiplatelet therapy, schedule cardiac catheterization on Thursday. Code(s): I21.4 - Non-ST elevation (NSTEMI) myocardial infarction (2) Hypercholesterolemia: Plan: Continue high intensity statin Code(s): E78.00 - Pure hypercholesterolemia, unspecified (3) Aortic stenosis: Assessment/Problem Details: Mild based on the echocardiogram year ago. Asymptomatic Qualifiers: Cardiac valve disease etiology: nonrheumatic Qualified Code(s): I35.0 - Nonrheumatic aortic (valve) stenosis Plan: Continue to follow noninvasively Code(s): I35.0 - Nonrheumatic aortic (valve) stenosis (4) Primary hypertension: Assessment/Problem Details: Currently under control Plan: continue home medications Code(s): I10 - Essential (primary) hypertension Plan Will proceed with heart cath. Risk, benefit and alternative reviewed with patient. She understood and agreed Documented By: Jamia Ndiaye MD 11/28/241324 Signed By: 11/28/24 1326 [facility]04-28-2025 Progress note Author Nolan Ballesteros [facility] Note Date/Time November 28, 2024 10: 35am [facility] [address] [place] [address] Hospitalist Progress Note Signed Patient: Atiya Jha MR#: [id number] : 1940 Acct:[id number] Age/Sex: 84 / F Adm Date: 5 Loc: Room: [address] [place] [address] Type: ADM IN Attending Dr: Nolan Ballesteros DO Copies to: ~ Date of Service: 11/28/2024 Subjective Subjective Narrative: Patient says that she did not get any sleep last night. There is not a specificreason that she did not get sleep she tells me. She denies any shortness of breath. She denies any chest pain or pressure. She is lying in bed trying to get some rest before the cardiac catheterization at 2 PM this afternoon. The patient indicates that she has been working with a surgeon out of [place] to do surgery on her lumbar spine. No definite date for surgery has been set. Shewonders if getting the heart cath today will get me cardiac clearance for that surgery? She is getting low back pain this morning from laying in the hospitalbed the last few nights. I did discuss with her that we can put on a dose or 2 of Voltaren gel to the lower back before she goes down for the cardiac catheterization. General -patient is awake alert oriented ?3, reclining in bed on her left side heparin drip is running. Monitor on 4P shows a nice normal sinus rhythm. No PVCs. No PACs. Cardiovascular -S1 plus S2, with regular rate, does have a 2+ aortic murmur but I hear no gallops or rubs. Pulmonary -clear to auscultation bilaterally; no wheezes. No rhonchi. No crackles. Gastrointestinal -abdomen is soft, nondistended, nontender, bowel sounds positive, no rigidity, no rebound. Lower extremities: I do not detect any edema in her legs. Exam Physical Exam Vital Signs: Temp Pulse Resp BP Pulse Ox O2 Del Method 97.6 F 76 18 151/70 H 97 Room Air 11/28/24 08:00 11/28/24 04:00 11/28/24 04:00 11/28/24 08:00 11/28/24 08:00 11/28/24 08:20 Objective Lab Results 11/28/24 04:51 11/28/24 04:51 Meds Allergies and Active Meds Allergies No Known Allergies Allergy (Verified 11/25/24 13:12) Active Meds: Active Medications Generic Name Dose Route Start Last Admin Trade Name Jesusq PRN Reason Stop Dose Admin Acetaminophen 650 mg 11/25/24 16:32 Acetaminophen 325 Mg Tablet PO 11/25/25 16:31 Q4H PRN Pain Scale 1 - 5 Albuterol 2.5 mg 11/25/24 16:32 Albuterol Neb 2.5 Mg/3 Ml Vial.Neb INHALATION 11/25/25 16:31 Q2H PRN Shortness Of Breath Aspirin 81 mg 11/26/24 09:00 11/28/24 08:58 Aspirin 81 Mg Tablet. PO 11/26/25 08:59 81 mg DAILY EMMA Administration Atorvastatin Calcium 80 mg 11/26/24 09:00 11/28/24 08:57 Atorvastatin 80 Mg Tablet PO 11/26/25 08:59 80 mg DAILY EMMA Administration Carvedilol 6.25 mg 11/25/24 17:00 11/28/24 08:58 Carvedilol 6.25 Mg Tablet PO 11/25/25 16:59 6.25 mg BID.WITH.MEALS EMMA Administration Clopidogrel Bisulfate 75 mg 11/25/24 16:35 11/28/24 08:57 Clopidogrel Bisulfate 75 Mg Tablet PO 11/25/25 16:34 75 mg DAILY EMMA Administration Diclofenac Sodium 4 gm 11/28/24 10:00 Diclofenac Sodium 1% Gel 100 Gm Tube TOPICAL 11/28/25 09:59 QID EMMA Docusate Sodium 200 mg 11/25/24 16:32 Docusate 100 Mg Capsule PO 11/25/25 16:31 BID PRN Constipation Heparin Sodium (Porcine) 1,700 unit 11/25/24 15:49 Heparin *Protocol Bolus* 5,000 Unit/Ml Vial 25 unit/kg (1700 unit) 11/25/25 15:48 IV-PUSH PROTOCOL PRN Anti-Xa < 0.1 or aPTT < 40 Hydralazine HCl 10 mg 11/25/24 16:32 Hydralazine 20 Mg/Ml Vial IV-PUSH 11/25/25 16:31 Q4H PRN if SBP > 185 Heparin Sodium/Sodium Chloride 25,000 unit in 250 mls @ 8.088 mls/hr 11/25/24 16:00 11/27/24 15:47 Heparin IV 11/25/25 15:59 8 unit/kg/hr .Q24H EMMA 5.39 mls/hr Administration Protocol 12 UNIT/KG/HR Dextrose/Sodium Chloride 1,000 mls @ 100 mls/hr 11/28/24 15:00 5 % Dextrose-0.45 % Nacl IV 11/28/24 21:59 .Q10H EMMA Irbesartan 75 mg 11/26/24 09:00 11/28/24 08:57 Irbesartan 150 Mg Tablet PO 11/26/25 08:59 75 mg DAILY EMMA Administration Melatonin 5 mg 11/28/24 01:03 11/28/24 01:21 Melatonin 5 Mg Tablet PO 11/28/25 21:59 5 mg QHS PRN Administration insomnia Mirabegron 25 mg 11/25/24 22:00 11/27/24 21:22 Mirabegron 25 Mg Tab.Er.24h PO 11/25/25 21:59 25 mg QHS EMMA Administration Miscellaneous Information 1 each 11/25/24 15:49 [facility] 11/25/25 15:48 .PHACONSULT PRN ZZ.Pharmacy Consult Protocol Miscellaneous Information 1 each 11/26/24 14:52 Consult To Pharmacy [facility] 11/26/25 14:51 .PHACONSULT PRN ZZ.Pharmacy Consult Protocol Nitroglycerin 0.4 mg 11/25/24 16:32 Nitroglycerin 0.4 Mg Tab.Subl SUBLINGUAL 11/25/25 16:31 Q5M PRN Chest Pain Pantoprazole Sodium 40 mg 11/26/24 09:00 11/28/24 08:58 Pantoprazole 40 Mg Table[address]Dr CORTEZ 11/26/25 08:59 40 mg DAILY EMMA Administration Sodium Chloride 0 ml 11/25/24 13:12 Sodium Chloride 0.9 % 10 Ml Syringe IV-PUSH 11/25/25 13:11 PRN PRN Flush Sodium Chloride 0 ml 11/26/24 14:52 Sodium Chloride 0.9 % 10 Ml Syringe IV-PUSH 11/26/25 14:51 PRN PRN Flush A&P - Hospitalist Assessment/Plan (1) Unstable angina: (2) Non-ST elevation (NSTEMI) myocardial infarction: (3) Aortic stenosis: (4) Coronary artery disease: (5) Primary hypertension: (6) Low back pain: Plan Unstable angina, non-ST elevation CA Cardiac catheterization due to plaque rupture with PCI in LAD in 11/2023, howevercouple days before this current hospital presentation she stopped taking antiplatelets due to a scheduled procedure Resume antiplatelet therapy, continue heparin infusion. Plan: Cardiac catheterization today Continue telemetry monitoring continuously. Continue heparin infusion on the ACS protocol. Voltaren gel applied to the low back so that she will have less pain when lying on her back for the cardiac catheterization. Documented By: Nolan Ballesteros DO 1033 Signed By: <Electronically signed by Nolan Ballesteros DO> 11/28/24 1035 [facility] Work Phone: [phone]) [phone] [address] Hospitalist Progress Note Signed Patient: Atiya Jha MR#: [id number] : 1940 Acct:[id number] Age/Sex: 84 / F Adm Date: 5 Loc: Room: [address] [place] [address] Type: ADM IN Attending Dr: Nolan Ballesteros DO Copies to: ~ Date of Service: 11/28/2024 Subjective Subjective Narrative: Patient says that she did not get any sleep last night. There is not a specificreason that she did not get sleep she tells me. She denies any shortness of breath. She denies any chest pain or pressure. She is lying in bed trying to get some rest before the cardiac catheterization at 2 PM this afternoon. The patient indicates that she has been working with a surgeon out of [place] to do surgery on her lumbar spine. No definite date for surgery has been set. Shewonders if getting the heart cath today will get me cardiac clearance for that surgery? She is getting low back pain this morning from laying in the hospitalbed the last few nights. I did discuss with her that we can put on a dose or 2 of Voltaren gel to the lower back before she goes down for the cardiac catheterization. General -patient is awake alert oriented ?3, reclining in bed on her left side heparin drip is running. Monitor on 4P shows a nice normal sinus rhythm. No PVCs. No PACs. Cardiovascular -S1 plus S2, with regular rate, does have a 2+ aortic murmur but I hear no gallops or rubs. Pulmonary -clear to auscultation bilaterally; no wheezes. No rhonchi. No crackles. Gastrointestinal -abdomen is soft, nondistended, nontender, bowel sounds positive, no rigidity, no rebound. Lower extremities: I do not detect any edema in her legs. Exam Physical Exam Vital Signs: Temp Pulse Resp BP Pulse Ox O2 Del Method 97.6 F 76 18 151/70 H 97 Room Air 11/28/24 08:00 11/28/24 04:00 11/28/24 04:00 11/28/24 08:00 11/28/24 08:00 11/28/24 08:20 Objective Lab Results 11/28/24 04:51 11/28/24 04:51 Meds Allergies and Active Meds Allergies No Known Allergies Allergy (Verified 11/25/24 13:12) Active Meds: Active Medications Generic Name Dose Route Start Last Admin Trade Name Freq PRN Reason Stop Dose Admin Acetaminophen 650 mg 11/25/24 16:32 Acetaminophen 325 Mg Tablet PO 11/25/25 16:31 Q4H PRN Pain Scale 1 - 5 Albuterol 2.5 mg 11/25/24 16:32 Albuterol Neb 2.5 Mg/3 Ml Vial.Neb INHALATION 11/25/25 16:31 Q2H PRN Shortness Of Breath Aspirin 81 mg 11/26/24 09:00 11/28/24 08:58 Aspirin 81 Mg Tablet. PO 11/26/25 08:59 81 mg DAILY EMMA Administration Atorvastatin Calcium 80 mg 11/26/24 09:00 11/28/24 08:57 Atorvastatin 80 Mg Tablet PO 11/26/25 08:59 80 mg DAILY EMMA Administration Carvedilol 6.25 mg 11/25/24 17:00 11/28/24 08:58 Carvedilol 6.25 Mg Tablet PO 11/25/25 16:59 6.25 mg BID.WITH.MEALS EMMA Administration Clopidogrel Bisulfate 75 mg 11/25/24 16:35 11/28/24 08:57 Clopidogrel Bisulfate 75 Mg Tablet PO 11/25/25 16:34 75 mg DAILY EMMA Administration Diclofenac Sodium 4 gm 11/28/24 10:00 Diclofenac Sodium 1% Gel 100 Gm Tube TOPICAL 11/28/25 09:59 QID EMMA Docusate Sodium 200 mg 11/25/24 16:32 Docusate 100 Mg Capsule PO 11/25/25 16:31 BID PRN Constipation Heparin Sodium (Porcine) 1,700 unit 11/25/24 15:49 Heparin *Protocol Bolus* 5,000 Unit/Ml Vial 25 unit/kg (1700 unit) 11/25/25 15:48 IV-PUSH PROTOCOL PRN Anti-Xa < 0.1 or aPTT < 40 Hydralazine HCl 10 mg 11/25/24 16:32 Hydralazine 20 Mg/Ml Vial IV-PUSH 11/25/25 16:31 Q4H PRN if SBP > 185 Heparin Sodium/Sodium Chloride 25,000 unit in 250 mls @ 8.088 mls/hr 11/25/24 16:00 11/27/24 15:47 Heparin IV 11/25/25 15:59 8 unit/kg/hr .Q24H EMMA 5.39 mls/hr Administration Protocol 12 UNIT/KG/HR Dextrose/Sodium Chloride 1,000 mls @ 100 mls/hr 11/28/24 15:00 5 % Dextrose-0.45 % Nacl IV 11/28/24 21:59 .Q10H EMMA Irbesartan 75 mg 11/26/24 09:00 11/28/24 08:57 Irbesartan 150 Mg Tablet PO 11/26/25 08:59 75 mg DAILY EMMA Administration Melatonin 5 mg 11/28/24 01:03 11/28/24 01:21 Melatonin 5 Mg Tablet PO 11/28/25 21:59 5 mg QHS PRN Administration insomnia Mirabegron 25 mg 11/25/24 22:00 11/27/24 21:22 Mirabegron 25 Mg Tab.Er.24h PO 11/25/25 21:59 25 mg QHS EMMA Administration Miscellaneous Information 1 each 11/25/24 15:49 Consult To Pharmacy [facility] 11/25/25 15:48 .PHACONSULT PRN ZZ.Pharmacy Consult Protocol Miscellaneous Information 1 each 11/26/24 14:52 Consult To Pharmacy [facility] 11/26/25 14:51 .PHACONSULT PRN ZZ.Pharmacy Consult Protocol Nitroglycerin 0.4 mg 11/25/24 16:32 Nitroglycerin 0.4 Mg Tab.Subl SUBLINGUAL 11/25/25 16:31 Q5M PRN Chest Pain Pantoprazole Sodium 40 mg 11/26/24 09:00 11/28/24 08:58 Pantoprazole 40 Mg Tablet.Dr PO 11/26/25 08:59 40 mg DAILY EMMA Administration Sodium Chloride 0 ml 11/25/24 13:12 Sodium Chloride 0.9 % 10 Ml Syringe IV-PUSH 11/25/25 13:11 PRN PRN Flush Sodium Chloride 0 ml 11/26/24 14:52 Sodium Chloride 0.9 % 10 Ml Syringe IV-PUSH 11/26/25 14:51 PRN PRN Flush A&P - Hospitalist Assessment/Plan (1) Unstable angina: (2) Non-ST elevation (NSTEMI) myocardial infarction: (3) Aortic stenosis: (4) Coronary artery disease: (5) Primary hypertension: (6) Low back pain: Plan Unstable angina, non-ST elevation CA Cardiac catheterization due to plaque rupture with PCI in LAD in 11/2023, howevercouple days before this current hospital presentation she stopped taking antiplatelets due to a scheduled procedure Resume antiplatelet therapy, continue heparin infusion. Plan: Cardiac catheterization today Continue telemetry monitoring continuously. Continue heparin infusion on the ACS protocol. Voltaren gel applied to the low back so that she will have less pain when lying on her back for thecardiac catheterization. Documented By: Nolan Ballesteros DO 1033 Signed By: 11/28/24 1035 [facility]04-27-2025 Progress note Author Chelsie Cedeno [facility] Note Date/Time November 27, 2024 1:1 8pm [facility] [address] [place] [address] Cardiology Progress Note Signed Patient: Atiya Jha MR#: [id number] : 1940 Acct:[id number] Age/Sex: 84 / F Adm Date: 5 Loc: Room: [address] [place] [address] Type: ADM IN Attending Dr: Nolan Ballesteros DO Copies to: ~ Date of Service: 11/27/2024 Subjective Principal diagnosis: Non-ST elevation myocardial infarction Interval history: Ms. Jha is a 84 year old female who is being seen at request of the hospitalist for chest pain and elevated troponin. In November 2023 the patient hadprevious stenting of the LAD by Dr. Townsend. And before that had stenting of the left circumflex in the past. She has been compliant with medical therapy and has had no events since last intervention until the last few days when she started having progressive dyspnea on exertion. She stopped taking the aspirin and the Plavix few days ago in preparation for urological surgery to be done by Dr. 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 The surgery was scheduled this coming week. The patient was noted to have elevated troponin exceeding 700 pg/mL. She was admitted and has had no symptoms since arrival. EKG showed no acute changes. Patient has a known history of mild aortic stenosis and at one time she had left ventricular systolic dysfunction ejection fraction 40- 45% which has normalized based on the last echocardiogram last year. She has history of hypertension hyperlipidemia she is nondiabetic non-smoker with no cerebrovascular disease or PAD. She had no recent febrile illnesses and has notutilized nitroglycerin lately. There is no hematuria and no dysuria. Cardiology follow-up 11/27/2024: Patient remains symptoms free and with stable hemodynamics, she has no side effect of medications. No hematuria. She is scheduled for cardiac catheterization tomorrow afternoon. Exam Physical Exam Vital Signs: Temp Pulse Resp BP Pulse Ox O2 Del Method 98.4 F 77 18 130/62 98 Room Air 11/27/24 11:22 11/27/24 11:22 11/27/24 11:22 11/27/24 11:22 11/27/24 11:22 11/27/24 11:23 Const General: cooperative, healthy appearing, comfortable and no acute distress Nutritional Appearance: average body habitus Orientation: alert, awake and oriented x3 HEENT Head: normal to inspection, normocephalic and atraumatic Ears: hearing grossly normal bilaterally Nose: external nose normal Face and sinus: normal facial exam Eyes Conjunctivae: conjunctivae normal Pupils: PERRL Neck Neck: trachea midline and supple Neck mass: No Thyroid: thyroid normal Carotids: normal carotid upstroke Resp Effort & Inspection: normal respiratory effort Auscultation: clear to auscultation bilaterally Cardio Jugular venous pressure: no JVD Palpation: normal PMI Rate: regular rate Rhythm: regular rhythm Heart Sounds: S1 normal and murmur (2/6 systolic ejection murmur at the base of the heart) GI Inspection: normal to inspection Palpation: soft and no hepatosplenomegaly Auscultation: normal bowel sounds Extrem General: no clubbing, cyanosis or edema Objective Labs 11/27/24 05:04 11/27/24 05:04 Labs: Laboratory Results - last 24 hr 11/27/24 05:04 Corrected WBC 5.9 Uncorrected WBC Count 5.9 RBC 3.68 Hgb 11.9 Hct 34.2 MCV 93.0 MCH 32.3 MCHC 34.7 RDW 13.7 Plt Count 168 MPV 7.8 Neut % (Auto) 51.3 Lymph % (Auto) 33.4 [place] % (Auto) 11.4 Eos % (Auto) 3.3 Baso % (Auto) 0.6 Nucleat RBC Rel Count 0.1 Neut # (Auto) 3.0 Lymph # (Auto) 2.0 [place] # (Auto) 0.7 Eos # (Auto) 0.2 Baso # (Auto) 0.0 Heparin Anti-Xa, Unfract 0.33 PHA Creatinine Clear 50.19 Sodium 138 Potassium 3.6 Chloride 104 Carbon Dioxide 26.1 Anion Gap 11.5 BUN 16 Creatinine 0.66 Est GFR (CKD-EPI) > 60.0 Glucose 97 Calcium 9.0 Troponin I High Sens 445 H* A&P - Cardiology (1) Non-ST elevation (NSTEMI) myocardial infarction: Assessment/Problem Details: Patient is status post PCI of the LAD and the left circumflex, currently with nochest pain. Plan: Resume dual antiplatelet therapy, schedule cardiac catheterization on Thursday. Code(s): I21.4 - Non-ST elevation (NSTEMI) myocardial infarction (2) Hypercholesterolemia: Plan: Continue high intensity statin Code(s): E78.00 - Pure hypercholesterolemia, unspecified (3) Aortic stenosis: Assessment/Problem Details: Mild based on the echocardiogram year ago. Asymptomatic Qualifiers: Cardiac valve disease etiology: nonrheumatic Qualified Code(s): I35.0 - Nonrheumatic aortic (valve) stenosis Plan: Continue to follow noninvasively Code(s): I35.0 - Nonrheumatic aortic (valve) stenosis (4) Primary hypertension: Assessment/Problem Details: Currently under control Plan: continue home medications Code(s): I10 - Essential (primary) hypertension Plan Cardiac catheterization tomorrow, continue present medications Documented By: Chelsie Cedeno MD, [facility] [id number] Signed By: <Electronically signed by [facility] Chelsie Cedeno> 11/27/24 4248 [facility] Work Phone: [phone]) 653-791104-27-2025 Progress note Author Nolna Ballesteros [facility] Note Date/Time November 27, 2024 12: 42pm [facility] [address] [place] [address] Hospitalist Progress Note Signed Patient: Atiya Jha MR#: [id number] : 1940 Acct:[id number] Age/Sex: 84 / F Adm Date: 5 Loc: Room: [address] [place] [address] Type: ADM IN Attending Dr: Nolan Ballesteros DO Copies to: ~ Date of Service: 11/27/2024 Subjective Subjective Narrative: And says that she has not had any shortness of breath or dyspnea on exertion or chest pain since going to the hospital (and being started on heparin infusion She understands plans for cardiac catheterization tomorrow. General -patient is awake alert oriented ?3, sitting up in bed. Heparin drip isrunning. Monitor on 4P shows a nice normal sinus rhythm. No PVCs. No PACs. Cardiovascular -S1 plus S2, with regular rate, does have a 2+ aortic murmur but I hear no gallops or rubs. Pulmonary -clear to auscultation bilaterally; no wheezes. No rhonchi. No crackles. Gastrointestinal -abdomen is soft, nondistended, nontender, bowel sounds positive, no rigidity, no rebound. Lower extremities: I do not detect any edema in her legs. Exam Physical Exam Vital Signs: Temp Pulse Resp BP Pulse Ox O2 Del Method 98.4 F 77 18 130/62 98 Room Air 11/27/24 11:22 11/27/24 11:22 11/27/24 11:22 11/27/24 11:22 11/27/24 11:22 11/27/24 11:23 Objective Lab Results 11/27/24 05:04 11/27/24 05:04 Meds Allergies and Active Meds Allergies No Known Allergies Allergy (Verified 11/25/24 13:12) Active Meds: Active Medications Generic Name Dose Route Start Last Admin Trade Name Freq PRN Reason Stop Dose Admin Acetaminophen 650 mg 11/25/24 16:32 Acetaminophen 325 Mg Tablet PO 11/25/25 16:31 Q4H PRN Pain Scale 1 - 5 Albuterol 2.5 mg 11/25/24 16:32 Albuterol Neb 2.5 Mg/3 Ml Vial.Neb INHALATION 11/25/25 16:31 Q2H PRN Shortness Of Breath Aspirin 81 mg 11/26/24 09:00 11/27/24 08:35 Aspirin 81 Mg Tablet. PO 11/26/25 08:59 81 mg DAILY EMMA Administration Atorvastatin Calcium 80 mg 11/26/24 09:00 11/27/24 08:35 Atorvastatin 80 Mg Tablet PO 11/26/25 08:59 80 mg DAILY EMMA Administration Carvedilol 6.25 mg 11/25/24 17:00 11/27/24 08:35 Carvedilol 6.25 Mg Tablet PO 11/25/25 16:59 6.25 mg BID.WITH.MEALS EMMA Administration Clopidogrel Bisulfate 75 mg 11/25/24 16:35 11/27/24 08:35 Clopidogrel Bisulfate 75 Mg Tablet PO 11/25/25 16:34 75 mg DAILY EMMA Administration Docusate Sodium 200 mg 11/25/24 16:32 Docusate 100 Mg Capsule PO 11/25/25 16:31 BID PRN Constipation Heparin Sodium (Porcine) 1,700 unit 11/25/24 15:49 Heparin *Protocol Bolus* 5,000 Unit/Ml Vial 25 unit/kg (1700 unit) 11/25/25 15:48 IV-PUSH PROTOCOL PRN Anti-Xa < 0.1 or aPTT < 40 Hydralazine HCl 10 mg 11/25/24 16:32 Hydralazine 20 Mg/Ml Vial IV-PUSH 11/25/25 16:31 Q4H PRN if SBP > 185 Heparin Sodium/Sodium Chloride 25,000 unit in 250 mls @ 8.088 mls/hr 11/25/24 16:00 11/26/24 20:29 Heparin IV 11/25/25 15:59 Not Given .Q24H EMMA Protocol 12 UNIT/KG/HR Dextrose/Sodium Chloride 1,000 mls @ 100 mls/hr 11/28/24 15:00 5 % Dextrose-0.45 % Nacl IV 11/28/24 21:59 .Q10H EMMA Irbesartan 75 mg 11/26/24 09:00 11/27/24 08:35 Irbesartan 150 Mg Tablet PO 11/26/25 08:59 75 mg DAILY EMMA Administration Mirabegron 25 mg 11/25/24 22:00 11/26/24 21:19 Mirabegron 25 Mg Tab.Er.24h PO 11/25/25 21:59 25 mg QHS EMMA Administration Miscellaneous Information 1 each 11/25/24 15:49 Consult To Pharmacy [facility] 11/25/25 15:48 .PHACONSULT PRN ZZ.Pharmacy Consult Protocol Miscellaneous Information 1 each 11/26/24 14:52 Consult To Pharmacy [facility] 11/26/25 14:51 .PHACONSULT PRN ZZ.Pharmacy Consult Protocol Nitroglycerin 0.4 mg 11/25/24 16:32 Nitroglycerin 0.4 Mg Tab.Subl SUBLINGUAL 11/25/25 16:31 Q5M PRN Chest Pain Pantoprazole Sodium 40 mg 11/26/24 09:00 11/27/24 08:35 Pantoprazole 40 Mg Tablet. PO 11/26/25 08:59 40 mg DAILY EMMA Administration Potassium Chloride 40 meq 11/26/24 14:52 Potassium Chloride Er 20 Meq Tab.Er.Prt PO STAT PRN Hypokalemia Sodium Chloride 0 ml 11/25/24 13:12 Sodium Chloride 0.9 % 10 Ml Syringe IV-PUSH 11/25/25 13:11 PRN PRN Flush Sodium Chloride 0 ml 11/26/24 14:52 Sodium Chloride 0.9 % 10 Ml Syringe IV-PUSH 11/26/25 14:51 PRN PRN Flush A&P - Hospitalist Assessment/Plan (1) Unstable angina: (2) Non-ST elevation (NSTEMI) myocardial infarction: (3) Aortic stenosis: (4) Coronary artery disease: (5) Primary hypertension: Plan Unstable angina, non-ST elevation CA Cardiac catheterization due to plaque rupture with PCI in LAD in 11/2023, howevercouple days before this current hospital presentation she stopped taking antiplatelets due to a scheduled procedure Resume antiplatelet therapy, continue heparin infusion. Plan: Cardiac catheterization tomorrow. Continue telemetry monitoring continuously. Continue heparin infusion on the ACS protocol. Check BMP, CBC, troponin, and twelve-lead EKG every morning. Documented By: Nolan Ballesteros DO 1240 Signed By: <Electronically signed by Nolan Ballesteros DO> 11/27/24 1242 [facility] Work Phone: 1(725) 224-843104-27-20[place] [address] Cardiology Progress Note Signed Patient: Atiya Jha MR#: [id number] : 1940 Acct:[id number] Age/Sex: 84 / F Adm Date: 5 Loc: 4 Room: [address] [place] [address] Type: ADM IN Attending Dr: Nolan Ballesteros DO Copies to: ~ Date of Service: 11/27/2024 Subjective Principal diagnosis: Non-ST elevation myocardial infarction Interval history: Ms. Jha is a 84 year old female who is being seen at request of the hospitalist for chest painand elevated troponin. In November 2023 the patient hadprevious stenting of the LAD by Dr. Townsend. And before that had stenting of the left circumflex in the past. She has been compliant with medical therapy and has had no events since last intervention until the last few days when she started havingprogressive dyspnea on exertion. She stopped taking the aspirin and the Plavix few days ago in preparation for urological surgery to be done by Dr. 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 The surgery was scheduled this coming week. The patient was noted to have elevated troponin exceeding 700 pg/m L. She was admitted and has had no symptoms since arrival. EKG showed no acute changes. Patient hasa known history of mild aortic stenosis and at one time she had left ventricular systolic dysfunction ejection fraction 40-45% which has normalized based on the last echocardiogram last year. She hashistory of hypertension hyperlipidemia she is nondiabetic non-smoker with no cerebrovascular disease or PAD. She had no recent febrile illnesses and has notutilized nitroglycerin lately. There is no hematuria and no dysuria. Cardiology follow-up 11/27/2024: Patient remains symptoms free and with stable hemodynamics, she hasno side effect of medications. No hematuria. She is scheduled for cardiac catheterization tomorrow afternoon. Exam Physical Exam Vital Signs: Temp Pulse Resp BP Pulse Ox O2 Del Method 98.4 F 77 18 130/62 98 Room Air 11/27/24 11:22 11/27/24 11:22 11/27/24 11:22 11/27/24 11:22 11/27/24 11:22 11/27/24 11:23 Const General: cooperative, healthy appearing, comfortable and no acute distress Nutritional Appearance: average body habitus Orientation: alert, awake and oriented x3 HEENT Head: normal to inspection, normocephalic and atraumatic Ears: hearing grossly normal bilaterally Nose: external nose normal Face and sinus: normal facial exam Eyes Conjunctivae: conjunctivae normal Pupils: PERRL Neck Neck: trachea midline and supple Neck mass: No Thyroid: thyroid normal Carotids: normal carotid upstroke Resp Effort & Inspection: normal respiratory effort Auscultation: clear to auscultation bilaterally Cardio Jugular venous pressure: no JVD Palpation: normal PMI Rate: regular rate Rhythm: regular rhythm Heart Sounds: S1 normal and murmur (2/6 systolic ejection murmur at the base of the heart) GI Inspection: normal to inspection Palpation: soft and no hepatosplenomegaly Auscultation: normal bowel sounds Extrem General: no clubbing, cyanosis or edema Objective Labs 11/27/24 05:04 11/27/24 05:04 Labs: Laboratory Results - last 24 hr 11/27/24 05:04 Corrected WBC 5.9 Uncorrected WBC Count 5.9 RBC 3.68 Hgb 11.9 Hct 34.2 MCV 93.0 MCH 32.3 MCHC 34.7 RDW 13.7 Plt Count 168 MPV 7.8 Neut % (Auto) 51.3 Lymph % (Auto) 33.4 [place] % (Auto) 11.4 Eos % (Auto) 3.3 Baso % (Auto) 0.6 Nucleat RBC Rel Count 0.1 Neut # (Auto) 3.0 Lymph # (Auto) 2.0 [place] # (Auto) 0.7 Eos # (Auto) 0.2 Baso # (Auto) 0.0 Heparin Anti-Xa, Unfract 0.33 PHA Creatinine Clear 50.19 Sodium 138 Potassium 3.6 Chloride 104 Carbon Dioxide 26.1 Anion Gap 11.5 BUN 16 Creatinine 0.66 Est GFR (CKD-EPI) > 60.0 Glucose 97 Calcium 9.0 Troponin I High Sens 445 H* A&P - Cardiology (1) Non-ST elevation (NSTEMI) myocardial infarction: Assessment/Problem Details: Patient is status post PCI of the LAD and the left circumflex, currently with nochest pain. Plan: Resume dual antiplatelet therapy, schedule cardiac catheterization on Thursday. Code(s): I21.4 - Non-ST elevation (NSTEMI) myocardial infarction (2) Hypercholesterolemia: Plan: Continue high intensity statin Code(s): E78.00 - Pure hypercholesterolemia, unspecified (3) Aortic stenosis: Assessment/Problem Details: Mild based on the echocardiogram year ago. Asymptomatic Qualifiers: Cardiac valve disease etiology: nonrheumatic Qualified Code(s): I35.0 - Nonrheumatic aortic (valve) stenosis Plan: Continue to follow noninvasively Code(s): I35.0 - Nonrheumatic aortic (valve) stenosis (4) Primary hypertension: Assessment/Problem Details: Currently under control Plan: continue home medications Code(s): I10 - Essential (primary) hypertension Plan Cardiac catheterization tomorrow, continue present medications Documented By: Chelsie Cedeno MD, [facility] 5 [id number] Signed By: 11/27/24 1318 [facility]04-27-[address] [address] Hospitalist Progress Note Signed Patient: Atiya Jha MR#: [id number] : 1940 Acct:[id number] Age/Sex: 84 / F Adm Date: Loc: Room: [address] [place] [address] Type: ADM IN Attending Dr: Nolan Ballesteros DO Copies to: ~ Date of Service: 11/27/2024 Subjective Subjective Narrative: And says that she has not had any shortness of breath or dyspnea on exertion or chest pain since going to the hospital (and being started on heparin infusion She understands plans for cardiac catheterization tomorrow. General -patient is awake alert oriented ?3, sitting up in bed. Heparin drip isrunning. Monitor on 4P shows a nice normal sinus rhythm. No PVCs. No PACs. Cardiovascular -S1 plus S2, with regular rate, does have a 2+ aortic murmur but I hear no gallops or rubs. Pulmonary -clear to auscultation bilaterally; no wheezes. No rhonchi. No crackles. Gastrointestinal -abdomen is soft, nondistended, nontender, bowel sounds positive, no rigidity, no rebound. Lower extremities: I do not detect any edema in her legs. Exam Physical Exam Vital Signs: Temp Pulse Resp BP Pulse Ox O2 Del Method 98.4 F 77 18 130/62 98 Room Air 11/27/24 11:22 11/27/24 11:22 11/27/24 11:22 11/27/24 11:22 11/27/24 11:22 11/27/24 11:23 Objective Lab Results 11/27/24 05:04 11/27/24 05:04 Meds Allergies and Active Meds Allergies No Known Allergies Allergy (Verified 11/25/24 13:12) Active Meds: Active Medications Generic Name Dose Route Start Last Admin Trade Name Freq PRN Reason Stop Dose Admin Acetaminophen 650 mg 11/25/24 16:32 Acetaminophen 325 Mg Tablet PO 11/25/25 16:31 Q4H PRN Pain Scale 1 - 5 Albuterol 2.5 mg 11/25/24 16:32 Albuterol Neb 2.5 Mg/3 Ml Vial.Neb INHALATION 11/25/25 16:31 Q2H PRN Shortness Of Breath Aspirin 81 mg 11/26/24 09:00 11/27/24 08:35 Aspirin 81 Mg Tablet. PO 11/26/25 08:59 81 mg DAILY EMMA Administration Atorvastatin Calcium 80 mg 11/26/24 09:00 11/27/24 08:35 Atorvastatin 80 Mg Tablet PO 11/26/25 08:59 80 mg DAILY EMMA Administration Carvedilol 6.25 mg 11/25/24 17:00 11/27/24 08:35 Carvedilol 6.25 Mg Tablet PO 11/25/25 16:59 6.25 mg BID.WITH.MEALS EMMA Administration Clopidogrel Bisulfate 75 mg 11/25/24 16:35 11/27/24 08:35 Clopidogrel Bisulfate 75 Mg Tablet PO 11/25/25 16:34 75 mg DAILY EMMA Administration Docusate Sodium 200 mg 11/25/24 16:32 Docusate 100 Mg Capsule PO 11/25/25 16:31 BID PRN Constipation Heparin Sodium (Porcine) 1,700 unit 11/25/24 15:49 Heparin *Protocol Bolus* 5,000 Unit/Ml Vial 25 unit/kg (1700 unit) 11/25/25 15:48 IV-PUSH PROTOCOL PRN Anti-Xa < 0.1 or aPTT < 40 Hydralazine HCl 10 mg 11/25/24 16:32 Hydralazine 20 Mg/Ml Vial IV-PUSH 11/25/25 16:31 Q4H PRN if SBP > 185 Heparin Sodium/Sodium Chloride 25,000 unit in 250 mls @ 8.088 mls/hr 11/25/24 16:00 11/26/24 20:29 Heparin IV 11/25/25 15:59 Not Given .Q24H EMMA Protocol 12 UNIT/KG/HR Dextrose/Sodium Chloride 1,000 mls @ 100 mls/hr 11/28/24 15:00 5 % Dextrose-0.45 % Nacl IV 11/28/24 21:59 .Q10H EMMA Irbesartan 75 mg 11/26/24 09:00 11/27/24 08:35 Irbesartan 150 Mg Tablet PO 11/26/25 08:59 75 mg DAILY EMMA Administration Mirabegron 25 mg 11/25/24 22:00 11/26/24 21:19 Mirabegron 25 Mg Tab.Er.24h PO 11/25/25 21:59 25 mg QHS EMMA Administration Miscellaneous Information 1 each 11/25/24 15:49 Consult To Pharmacy [facility] 11/25/25 15:48 .PHACONSULT PRN ZZ.Pharmacy Consult Protocol Miscellaneous Information 1 each 11/26/24 14:52 Consult To Pharmacy [facility] 11/26/25 14:51 .PHACONSULT PRN ZZ.Pharmacy Consult Protocol Nitroglycerin 0.4 mg 11/25/24 16:32 Nitroglycerin 0.4 Mg Tab.Subl SUBLINGUAL 11/25/25 16:31 Q5M PRN Chest Pain Pantoprazole Sodium 40 mg 11/26/24 09:00 11/27/24 08:35 Pantoprazole 40 Mg Tablet.Dr PO 11/26/25 08:59 40 mg DAILY EMMA Administration Potassium Chloride 40 meq 11/26/24 14:52 Potassium Chloride Er 20 Meq Tab.Er.Prt PO STAT PRN Hypokalemia Sodium Chloride 0 ml 11/25/24 13:12 Sodium Chloride 0.9 % 10 Ml Syringe IV-PUSH 11/25/25 13:11 PRN PRN Flush Sodium Chloride 0 ml 11/26/24 14:52 Sodium Chloride 0.9 % 10 Ml Syringe IV-PUSH 11/26/25 14:51 PRN PRN Flush A&P - Hospitalist Assessment/Plan (1) Unstable angina: (2) Non-ST elevation (NSTEMI) myocardial infarction: (3) Aortic stenosis: (4) Coronary artery disease: (5) Primary hypertension: Plan Unstable angina, non-ST elevation CA Cardiac catheterization due to plaque rupture with PCI in LAD in 11/2023, howevercouple days before this current hospital presentation she stopped taking antiplatelets due to a scheduled procedure Resume antiplatelet therapy, continue heparin infusion. Plan: Cardiac catheterization tomorrow. Continue telemetry monitoring continuously. Continue heparin infusion on the ACS protocol. Check BMP, CBC, troponin, and twelve-lead EKG every morning. Documented By: Nolan Ballesteros DO 1240 Signed By: 11/27/24 1242 [facility]04-26-2025 Consult note Author Chelsie Cedeno [facility] Note Date/Time November 26, 2024 2:5 1pm [facility] [address] [place] [address] Cardiology Consult Note Signed Patient: Atiya Jha MR#: [id number] : 1940 Acct:[id number] Age/Sex: 84 / F Adm Date: 5 Loc: Room: [address] [place] [address] Type: ADM IN Attending Dr: Nolan Ballesteros DO Copies to: DO Chelsie Dean MD, FACC Nolan Ballesteros DO~ Cardiology HPI History of Present Illness Consult Date: 11/26/24 Reason for Consult: Chest pain/elevated troponin HPI: Ms. Jha is a 84 year old female who is being seen at request of the hospitalist for chest pain and elevated troponin. In November 2023 the patient hadprevious stenting of the LAD by Dr. Townsend. And before that had stenting of the left circumflex in the past. She has been compliant with medical therapy and has had no events since last intervention until the last few days when she started having progressive dyspnea on exertion. She stopped taking the aspirin and the Plavix few days ago in preparation for urological surgery to be done by Dr. 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 The surgery was scheduled this coming week. The patient was noted to have elevated troponin exceeding 700 pg/mL. She was admitted and has had no symptoms since arrival. EKG showed no acute changes. Patient has a known history of mild aortic stenosis and at one time she had left ventricular systolic dysfunction ejection fraction 40- 45% which has normalized based on the last echocardiogram last year. She has history of hypertension hyperlipidemia she is nondiabetic non-smoker with no cerebrovascular disease or PAD. She had no recent febrile illnesses and has notutilized nitroglycerin lately. There is no hematuria and no dysuria. Review of Systems Review of Systems Review of systems: 10 point review of system essentially normal [facility] Medical History (Updated 11/26/24 @ 12:25 by Nolan Ballesteros DO) Low back pain Osteoporosis Unsteady gait Abdominal pain Anemia Screening mammogram for breast cancer Medicare annual wellness visit, subsequent Hypercholesterolemia Primary osteoarthritis of right hip Aortic stenosis Echo: JEANA 1.5cm, gradient , velocity 248 - 01/2024 Chronic venous insufficiency of lower extremity Heart failure with improved ejection fraction (HFimpEF) GERD (gastroesophageal reflux disease) Thyroid disease Lumbar spondylosis uses pain clinic for pain control Stage 3a chronic kidney disease (CKD) ASHD (arteriosclerotic heart disease) Echo: LVEF 60%, RVSP 30-40, , MR, TR - 01/2024 Abnormal weight loss Surgical History H/O total hip arthroplasty (~03/2011) left H/O total hip arthroplasty (~06/2021) right History of phacoemulsification of cataract of both eyes with intraocular lens implantation H/O bilateral cataract extraction History of surgery Trigger finger, left 2004 Trigger finger, right 06/2023 Eyelids lifted 2020 CTR right 06/2023 H/O abdominoplasty H/O bilateral breast reduction surgery History of cardiac catheterization (~11/2023) PCI/stent - 11/1999, PCI/stent LCX, PTCA distal LAD - 01/2023, PCI/stent LAD - 11/2023 Family History Sister Myocardial infarction Father Heart disease Myocardial infarction CHF (congestive heart failure) Hypertension Mother Social History Smoking Status: Never smoker Substance Use Type: None and Alcohol Substance Abuse Comment: socially Meds Medications and Allergies Allergies No Known Allergies Allergy (Verified 11/25/24 13:12) Home Medications aspirin 81 mg tablet,delayed release (Aspir-) 81 mg PO DAILY 11/02/17 [History Confirmed 11/25/24] alendronate 70 mg tablet 70 mg PO QWEEK 01/14/23 [History Confirmed 11/25/24] docusate sodium 50 mg capsule 50 mg PO BID 01/14/23 [History Confirmed 11/25/24] carvedilol 6.25 mg tablet 6.25 mg PO BID.WITH.MEALS #60 tabs 01/16/23 [Rx Confirmed 11/25/24] nitroglycerin 0.4 mg sublingual tablet 0.4 mg sublingual Q5M PRN Chest Pain #30 tabs 01/16/23 [Rx Confirmed 11/25/24] acetaminophen 500 mg tablet (Tylenol Extra Strength) 1,000 mg PO Q6HR PRN pain 11/16/23 [History Confirmed 11/25/24] calcium 500 mg (as carbonate)-vitamin D3 5 mcg (200 unit) tablet 1 tab PO DAILY 11/17/23 [History Confirmed 11/25/24] mirabegron 25 mg tablet,extended release 24 hr (Myrbetriq) 25 mg PO HS 03/02/24 [History Confirmed 11/25/24] telmisartan 20 mg tablet See Rx Instructions .Route .COMPLEX #30 tabs 03/14/24 [Rx Confirmed 11/25/24] atorvastatin 80 mg tablet See Rx Instructions .Route .COMPLEX #100 tabs 07/12/24[Rx Confirmed 11/25/24] clopidogrel 75 mg tablet 75 mg PO DAILY 90 days #90 tabs 10/26/24 [Rx Confirmed 11/25/24] pantoprazole 40 mg tablet,delayed release 40 mg PO DAILY 90 days #90 tabs 10/28/24 [Rx Confirmed 11/25/24] hydrochlorothiazide 25 mg tablet See Rx Instructions .Route .COMPLEX #15 tabs 10/31/24 [Rx Confirmed 11/25/24] estradiol 0.01% (0.1 mg/gram) vaginal cream 1 appful vaginal DAILY 11/25/24 [History Confirmed 11/25/24] Exam Physical Exam Vital Signs: Temp Pulse Resp BP Pulse Ox O2 Del Method 98.7 F 74 18 145/75 H 95 Room Air 11/26/24 12:30 11/26/24 12:30 11/26/24 12:30 11/26/24 12:30 11/26/24 12:30 11/26/24 12:30 Const General: cooperative, healthy appearing, comfortable and no acute distress Nutritional Appearance: average body habitus Orientation: alert, awake and oriented x3 HEENT Head: normal to inspection, normocephalic and atraumatic Ears: hearing grossly normal bilaterally Nose: external nose normal Face and sinus: normal facial exam Eyes Conjunctivae: conjunctivae normal Pupils: PERRL Neck Neck: trachea midline and supple Neck mass: No Thyroid: thyroid normal Carotids: normal carotid upstroke Resp Effort & Inspection: normal respiratory effort Auscultation: clear to auscultation bilaterally Cardio Jugular venous pressure: no JVD Palpation: normal PMI Rate: regular rate Rhythm: regular rhythm Heart Sounds: S1 normal and murmur (2/6 systolic ejection murmur at the base of the heart) GI Inspection: normal to inspection Palpation: soft and no hepatosplenomegaly Auscultation: normal bowel sounds Extrem General: no clubbing, cyanosis or edema Results - Cardiology Labs 11/26/24 05:03 11/26/24 05:03 Lab results: Cardiac Enzymes 11/25/24 Range/Units 14:18 Total Creatine Kinase 129 (30-223) U/L B-Natriuretic Peptide 981.0 H (5-100) pg/mL CBC 11/26/24 Range/Units 05:03 RBC 3.81 (3.60-5.00) x10E6/uL Hgb 12.1 (11.8-15.4) g/dL Hct 35.3 (34.0-46.4) % Plt Count 158 (150-450) x10E3/uL Neut # (Auto) 3.6 (1.8-7.7) x10E3/uL Lymph # (Auto) 2.0 (1.00-4.8) x10E3/uL [place] # (Auto) 0.7 (0.0-0.8) x10E3/uL Eos # (Auto) 0.3 (0.0-0.45) x10E3/uL Baso # (Auto) 0.1 (0.0-0.2) x10E3/uL Comprehensive Metabolic Panel 11/25/24 11/26/24 Range/Units 14:18 05:03 Sodium 142 139 (136-145) mmol/L Potassium 4.0 3.6 (3.5-5.1) mmol/L Chloride 109 H 104 (98-107) mmol/L Carbon Dioxide 26.6 25.7 (21.0-31.0) mmol/L BUN 13 18 (7-25) mg/dL Creatinine 0.79 0.89 (0.60-1.20) mg/dL Glucose 108 H 99 (70-100) mg/dL Calcium 9.5 9.2 (8.6-10.3) mg/dL Intake and Output 0411/26/24 11/26/24 23:59 07:59 15:59 Intake Total 600 / 600 Balance 600 / 600 Intake: Oral 600 / 600 Other: # Unmeasured Voids 10 # Bowel Movements 1 Weight 68.5 kg 69.1 kg Date of Last Bowel Movement 11/25/24 Patient Weight 11/26/24 23:59 Weight 69.1 kg Lab 11/25/24 14:18 PT 10.8 INR 0.9 EKG Interpretations EKG Attestation EKG: I reviewed this ECG and interpreted as documented below: (ECG revealed normal sinus rhythm with T wave inversion V1 and V2 unchanged from previously) A&P - Cardiology (1) Non-ST elevation (NSTEMI) myocardial infarction: Assessment/Problem Details: Patient is status post PCI of the LAD and the left circumflex, currently with nochest pain. Plan: Resume dual antiplatelet therapy, schedule cardiac catheterization on Thursday. Code(s): I21.4 - Non-ST elevation (NSTEMI) myocardial infarction (2) Hypercholesterolemia: Plan: Continue high intensity statin Code(s): E78.00 - Pure hypercholesterolemia, unspecified (3) Aortic stenosis: Assessment/Problem Details: Mild based on the echocardiogram year ago. Asymptomatic Plan: Continue to follow noninvasively Qualifiers: Cardiac valve disease etiology: nonrheumatic Qualified Code(s): I35.0 - Nonrheumatic aortic (valve) stenosis Code(s): I35.0 - Nonrheumatic aortic (valve) stenosis (4) Primary hypertension: Assessment/Problem Details: Currently under control Plan: continue home medications Code(s): I10 - Essential (primary) hypertension Documented By: Chelsie Cedeno MD, [facility] 5 [id number] Signed By: <Electronically signed by MD MARC Cedeno> 11/26/24 4457 [facility] Work Phone: [phone] [place] [id number] Cardiology Consult Note Signed Patient: Atiya Jha MR#: [id number] : 1940 Acct:[id number] Age/Sex: 84 / F Adm Date: 5 Loc: Room: [id number] Type: ADM IN Attending Dr: Nolan Ballesteros DO Copies to: DO Chelsie Dean MD, [facility] Nolan Ballesteros DO~ Cardiology HPI History of Present Illness Consult Date: 11/26/24 Reason for Consult: Chest pain/elevated troponin HPI: Ms. Jha is a 84 year old female who is being seen at request of the hospitalist for chest painand elevated troponin. In November 2023 the patient hadprevious stenting of the LAD by Dr. Townsend. And before that had stenting of the left circumflex in the past. She has been compliant with medical therapy and has had no events since last intervention until the last few days when she started havingprogressive dyspnea on exertion. She stopped taking the aspirin and the Plavix few days ago in preparation for urological surgery to be done by Dr. 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 The surgery was scheduled this coming week. The patient was noted to have elevated troponin exceeding 700 pg/m L. She was admitted and has had no symptoms since arrival. EKG showed no acute changes. Patient hasa known history of mild aortic stenosis and at one time she had left ventricular systolic dysfunction ejection fraction 40-45% which has normalized based on the last echocardiogram last year. She hashistory of hypertension hyperlipidemia she is nondiabetic non-smoker with no cerebrovascular disease or PAD. She had no recent febrile illnesses and has notutilized nitroglycerin lately. There is no hematuria and no dysuria. Review of Systems Review of Systems Review of systems: 10 point review of system essentially normal [facility] Medical History (Updated 11/26/24 @ 12:25 by Nolan Ballesteros DO) Low back pain Osteoporosis Unsteady gait Abdominal pain Anemia Screening mammogram for breast cancer Medicare annual wellness visit, subsequent Hypercholesterolemia Primary osteoarthritis of right hip Aortic stenosis Echo: JEANA 1.5cm, gradient , velocity 248 - 01/2024 Chronic venous insufficiency of lower extremity Heart failure with improved ejection fraction (HFimpEF) GERD (gastroesophageal reflux disease) Thyroid disease Lumbar spondylosis uses pain clinic for pain control Stage 3a chronic kidney disease (CKD) ASHD (arteriosclerotic heart disease) Echo: LVEF 60%, RVSP 30-40, , MR, TR - 01/2024 Abnormal weight loss Surgical History H/O total hip arthroplasty (~03/2011) left H/O total hip arthroplasty (~06/2021) right History of phacoemulsification of cataract of both eyes with intraocular lens implantation H/O bilateral cataract extraction History of surgery Trigger finger, left 2004 Trigger finger, right 06/2023 Eyelids lifted 2020 CTR right 06/2023 H/O abdominoplasty H/O bilateral breast reduction surgery History of cardiac catheterization (~11/2023) PCI/stent - 11/1999, PCI/stent LCX, PTCA distal LAD - 01/2023, PCI/stent LAD - 11/2023 Family History Sister Myocardial infarction Father Heart disease Myocardial infarction CHF (congestive heart failure) Hypertension Mother Social History Smoking Status: Never smoker Substance Use Type: None and Alcohol Substance Abuse Comment: socially Meds Medications and Allergies Allergies No Known Allergies Allergy (Verified 11/25/24 13:12) Home Medications aspirin 81 mg tablet,delayed release (Aspir-) 81 mg PO DAILY 11/02/17 [History Confirmed 11/25/24] alendronate 70 mg tablet 70 mg PO QWEEK 01/14/23 [History Confirmed 11/25/24] docusate sodium 50 mg capsule 50 mg PO BID 01/14/23 [History Confirmed 11/25/24] carvedilol 6.25 mg tablet 6.25 mg PO BID.WITH.MEALS #60 tabs 01/16/23 [Rx Confirmed 11/25/24] nitroglycerin 0.4 mg sublingual tablet 0.4 mg sublingual Q5M PRN Chest Pain #30 tabs 01/16/23 [Rx Confirmed 11/25/24] acetaminophen 500 mg tablet (Tylenol Extra Strength) 1,000 mg PO Q6HR PRN pain 11/16/23 [History Confirmed 11/25/24] calcium 500 mg (as carbonate)-vitamin D3 5 mcg (200 unit) tablet 1 tab PO DAILY 11/17/23 [History Confirmed 11/25/24] mirabegron 25 mg tablet,extended release 24 hr (Myrbetriq) 25 mg PO HS 03/02/24 [History Confirmed 11/25/24] telmisartan 20 mg tablet See Rx Instructions .Route .COMPLEX #30 tabs 03/14/24 [Rx Confirmed 11/25/24] atorvastatin 80 mg tablet See Rx Instructions .Route .COMPLEX #100 tabs 07/12/24[Rx Confirmed 11/25/24] clopidogrel 75 mg tablet 75 mg PO DAILY 90 days #90 tabs 10/26/24 [Rx Confirmed 11/25/24] pantoprazole 40 mg tablet,delayed release 40 mg PO DAILY 90 days #90 tabs 10/28/24 [Rx Confirmed 11/25/24] hydrochlorothiazide 25 mg tablet See Rx Instructions .Route .COMPLEX #15 tabs 10/31/24 [Rx Confirmed 11/25/24] estradiol 0.01% (0.1 mg/gram) vaginal cream 1 appful vaginal DAILY 11/25/24 [History Confirmed 11/25/24] Exam Physical Exam Vital Signs: Temp Pulse Resp BP Pulse Ox O2 Del Method 98.7 F 74 18 145/75 H 95 Room Air 11/26/24 12:30 11/26/24 12:30 11/26/24 12:30 11/26/24 12:30 11/26/24 12:30 11/26/24 12:30 Const General: cooperative, healthy appearing, comfortable and no acute distress Nutritional Appearance: average body habitus Orientation: alert, awake and oriented x3 HEENT Head: normal to inspection, normocephalic and atraumatic Ears: hearing grossly normal bilaterally Nose: external nose normal Face and sinus: normal facial exam Eyes Conjunctivae: conjunctivae normal Pupils: PERRL Neck Neck: trachea midline and supple Neck mass: No Thyroid: thyroid normal Carotids: normal carotid upstroke Resp Effort & Inspection: normal respiratory effort Auscultation: clear to auscultation bilaterally Cardio Jugular venous pressure: no JVD Palpation: normal PMI Rate: regular rate Rhythm: regular rhythm Heart Sounds: S1 normal and murmur (2/6 systolic ejection murmur at the base of the heart) GI Inspection: normal to inspection Palpation: soft and no hepatosplenomegaly Auscultation: normal bowel sounds Extrem General: no clubbing, cyanosis or edema Results - Cardiology Labs 11/26/24 05:03 11/26/24 05:03 Lab results: Cardiac Enzymes 11/25/24 Range/Units 14:18 Total Creatine Kinase 129 (30-223) U/L B-Natriuretic Peptide 981.0 H (5-100) pg/mL CBC 11/26/24 Range/Units 05:03 RBC 3.81 (3.60-5.00) x10E6/uL Hgb 12.1 (11.8-15.4) g/dL Hct 35.3 (34.0-46.4) % Plt Count 158 (150-450) x10E3/uL Neut # (Auto) 3.6 (1.8-7.7) x10E3/uL Lymph # (Auto) 2.0 (1.00-4.8) x10E3/uL [place] # (Auto) 0.7 (0.0-0.8) x10E3/uL Eos # (Auto) 0.3 (0.0-0.45) x10E3/uL Baso # (Auto) 0.1 (0.0-0.2) x10E3/uL Comprehensive Metabolic Panel 11/25/24 11/26/24 Range/Units 14:18 05:03 Sodium 142 139 (136-145) mmol/L Potassium 4.0 3.6 (3.5-5.1) mmol/L Chloride 109 H 104 (98-107) mmol/L Carbon Dioxide 26.6 25.7 (21.0-31.0) mmol/L BUN 13 18 (7-25) mg/dL Creatinine 0.79 0.89 (0.60-1.20) mg/dL Glucose 108 H 99 (70-100) mg/dL Calcium 9.5 9.2 (8.6-10.3) mg/dL Intake and Output 11/25/24 11/26/24 11/26/24 23:59 07:59 15:59 Intake Total 600 / 600 Balance 600 / 600 Intake: Oral 600 / 600 Other: # Unmeasured Voids 10 # Bowel Movements 1 Weight 68.5 kg 69.1 kg Date of Last Bowel Movement 11/25/24 Patient Weight 11/26/24 23:59 Weight 69.1 kg Lab 11/25/24 14:18 PT 10.8 INR 0.9 EKG Interpretations EKG Attestation EKG: I reviewed this ECG and interpreted as documented below: (ECG revealed normal sinus rhythm with T wave inversion V1 and V2 unchanged from previously) A&P - Cardiology (1) Non-ST elevation (NSTEMI) myocardial infarction: Assessment/Problem Details: Patient is status post PCI of the LAD and the left circumflex, currently with nochest pain. Plan: Resume dual antiplatelet therapy, schedule cardiac catheterization on Thursday. Code(s): I21.4 - Non-ST elevation (NSTEMI) myocardial infarction (2) Hypercholesterolemia: Plan: Continue high intensity statin Code(s): E78.00 - Pure hypercholesterolemia, unspecified (3) Aortic stenosis: Assessment/Problem Details: Mild based on the echocardiogram year ago. Asymptomatic Plan: Continue to follow noninvasively Qualifiers: Cardiac valve disease etiology: nonrheumatic Qualified Code(s): I35.0 - Nonrheumatic aortic (valve) stenosis Code(s): I35.0 - Nonrheumatic aortic (valve) stenosis (4) Primary hypertension: Assessment/Problem Details: Currently under control Plan: continue home medications Code(s): I10 - Essential (primary) hypertension Documented By: Chelsie Cedeno MD, [facility] 5 [id number] Signed By: 11/26/[address] [place], [place] [id number] Progress note Author Nolan Ballesteros [facility] Note Date/Time November 26, 2024 12: 26pm [facility] [address] [place] [address] Hospitalist Progress Note Signed Patient: Atiya Jha MR#: [id number] : 1940 Acct:[id number] Age/Sex: 84 / F Adm Date: 5 Loc: Room: [address] [place] [address] Type: ADM IN Attending Dr: Nolan Ballesteros DO Copies to: ~ Date of Service: 11/26/2024 Subjective Subjective Narrative: 84 years old female with underlying history of coronary artery disease, status post cardiac catheterization showing severe diffuse small vessel disease with ruptured plaque in the proximal LAD, with PCI in November 2023 presented with progressive shortness of breath and chest tightness. According to the patient she has been having the symptoms for about 3 weeks, especially with exertion, but she denies any paroxysmal nocturnal dyspnea, denies any orthopnea, denies any lower extremity swelling, last night she has been having chest tightness andshe was not able to sleep. Currently she is asymptomatic, while at rest she denies any shortness of breath any chest pain. Denies any nausea any sweating, any vomiting, any dizziness anylightheadedness. Denies any abdominal pain. No diarrhea. No dysuria. She also complains of being very tired weak especially with exertion She denies any signs of bleeding. No hematemesis, no melena, no hematochezia 3 days ago aspirin and Plavix was stopped as the patient was scheduled to undergo surgery for benign urethral nodule Seen on rounds this Thursday morning the patient says that she feels much betternow. She says that she had dyspnea on exertion and profound fatigue that were getting worse for several weeks and then the night before she came in she had a whole lot of chest pain on the left side. She admits that she has not been physically active here in the hospital. No fevers chills. No nausea. No upset stomach. No heartburn. No GERD. She says that the diuresis that she got from the Lasix was really quite strong. General -patient is awake alert oriented ?3, sitting up in a chair. Heparin drip is running. Monitor on for PE shows a nice normal sinus rhythm. No PVCs. No PACs. Cardiovascular -S1 plus S2, with regular rate, without any murmurs, gallops, rubs Pulmonary -clear to auscultation bilaterally; no wheezes. No rhonchi. No crackles. Gastrointestinal -abdomen is soft, nondistended, nontender, bowel sounds positive, no rigidity, no rebound Lower extremities: I do not detect any edema in her legs. Exam Physical Exam Vital Signs: Temp Pulse Resp BP Pulse Ox O2 Del Method 97.6 F 70 18 151/76 H 97 Room Air 11/26/24 08:13 11/26/24 08:13 11/26/24 08:13 11/26/24 08:13 11/26/24 08:13 11/26/24 08:13 Objective Lab Results 11/26/24 05:03 11/26/24 05:03 Meds Allergies and Active Meds Allergies No Known Allergies Allergy (Verified 11/25/24 13:12) Active Meds: Active Medications Generic Name Dose Route Start Last Admin Trade Name Freq PRN Reason Stop Dose Admin Acetaminophen 650 mg 04/25/25 16:32 Acetaminophen 325 Mg Tablet PO 11/25/25 16:31 Q4H PRN Pain Scale 1 - 5 Albuterol 2.5 mg 11/25/24 16:32 Albuterol Neb 2.5 Mg/3 Ml Vial.Neb INHALATION 11/25/25 16:31 Q2H PRN Shortness Of Breath Aspirin 81 mg 11/26/24 09:00 11/26/24 10:02 Aspirin 81 Mg Tablet.Dr PO 11/26/25 08:59 81 mg DAILY EMMA Administration Atorvastatin Calcium 80 mg 11/26/24 09:00 11/26/24 10:03 Atorvastatin 80 Mg Tablet PO 11/26/25 08:59 80 mg DAILY EMMA Administration Carvedilol 6.25 mg 11/25/24 17:00 11/26/24 10:02 Carvedilol 6.25 Mg Tablet PO 11/25/25 16:59 6.25 mg BID.WITH.MEALS EMMA Administration Clopidogrel Bisulfate 75 mg 11/25/24 16:35 11/26/24 10:03 Clopidogrel Bisulfate 75 Mg Tablet PO 11/25/25 16:34 75 mg DAILY EMMA Administration Docusate Sodium 200 mg 11/25/24 16:32 Docusate 100 Mg Capsule PO 11/25/25 16:31 BID PRN Constipation Heparin Sodium (Porcine) 1,700 unit 11/25/24 15:49 Heparin *Protocol Bolus* 5,000 Unit/Ml Vial 25 unit/kg (1700 unit) 11/25/25 15:48 IV-PUSH PROTOCOL PRN Anti-Xa < 0.1 or aPTT < 40 Hydralazine HCl 10 mg 11/25/24 16:32 Hydralazine 20 Mg/Ml Vial IV-PUSH 11/25/25 16:31 Q4H PRN if SBP > 185 Heparin Sodium/Sodium Chloride 25,000 unit in 250 mls @ 8.088 mls/hr 11/25/24 16:00 11/25/24 21:47 Heparin IV 11/25/25 15:59 8 unit/kg/hr .Q24H EMMA 5.39 mls/hr Titration Protocol 12 UNIT/KG/HR Irbesartan 75 mg 11/26/24 09:00 11/26/24 10:03 Irbesartan 150 Mg Tablet PO 11/26/25 08:59 75 mg DAILY EMMA Administration Mirabegron 25 mg 11/25/24 22:00 11/25/24 21:47 Mirabegron 25 Mg Tab.Er.24h PO 11/25/25 21:59 25 mg QHS EMMA Administration Miscellaneous Information 1 each 11/25/24 15:49 Consult To Pharmacy MISCELLANE 11/25/25 15:48 .PHACONSULT PRN ZZ.Pharmacy Consult Protocol Nitroglycerin 0.4 mg 11/25/24 16:32 Nitroglycerin 0.4 Mg Tab.Subl SUBLINGUAL 11/25/25 16:31 Q5M PRN Chest Pain Pantoprazole Sodium 40 mg 11/26/24 09:00 11/26/24 10:03 Pantoprazole 40 Mg Tablet.Dr PO 11/26/25 08:59 40 mg DAILY EMMA Administration Sodium Chloride 0 ml 11/25/24 13:12 Sodium Chloride 0.9 % 10 Ml Syringe IV-PUSH 11/25/25 13:11 PRN PRN Flush A&P - Hospitalist Assessment/Plan (1) Unstable angina: (2) Non-ST elevation (NSTEMI) myocardial infarction: (3) Aortic stenosis: (4) Coronary artery disease: (5) Primary hypertension: Plan Unstable angina, non-ST elevation CA Cardiac catheterization due to plaque rupture with PCI in LAD in 11/2023, howevercouple days ago she stopped taking antiplatelets due to scheduled procedure Resume antiplatelet therapy, start heparin therapy, consult cardiology, check echocardiogram Plan: Awaiting cardiology input. Continue telemetry monitoring continuously. Continue heparin infusion on the ACS protocol. Check BMP, CBC, troponin, and twelve-lead EKG every morning. Documented By: Nolan Ballesteros DO 1221 Signed By: <Electronically signed by Nolan Ballesteros DO> 11/26/24 1226 [facility] Work Phone: [phone]) [phone] [place] [id number] Hospitalist Progress Note Signed Patient: Atiya Jha MR#: [id number] : 1940 Acct:[id number] Age/Sex: 84 / F Adm Date: 5 Loc: 4P Room: [id number] Type: ADM IN Attending Dr: Nolan Ballesteros DO Copies to: ~ Date of Service: 11/26/2024 Subjective Subjective Narrative: 84 years old female with underlying history of coronary artery disease, status post cardiac catheterization showing severe diffuse small vessel disease with ruptured plaque in the proximal LAD, with PCI in November 2023 presented with progressive shortness of breath and chest tightness. According to the patient she has been having the symptoms for about 3 weeks, especially with exertion, but she denies any paroxysmal nocturnal dyspnea, denies any orthopnea, denies any lower extremity swelling, last night she has been having chest tightness andshe was not able to sleep. Currently she is asymptomatic, while at rest she denies any shortness of breath any chest pain. Denies any nausea any sweating, any vomiting, any dizziness anylightheadedness. Denies any abdominal pain. No diarrhea. No dysuria. She also complains of being very tired weak especially with exertion She denies any signs of bleeding. No hematemesis, no melena, no hematochezia 3 days ago aspirin and Plavix was stopped as the patient was scheduled to undergo surgery for benign urethral nodule Seen on rounds this Thursday morning the patient says that she feels much betternow. She says that she had dyspnea on exertion and profound fatigue that were getting worse for several weeks and then the night before she came in she had a whole lot of chest pain on the left side. She admits that shehas not been physically active here in the hospital. No fevers chills. No nausea. No upset stomach. No heartburn. No GERD. She says that the diuresis that she got from the Lasix was really quite strong. General -patient is awake alert oriented ?3, sitting up in a chair. Heparin drip is running. Monitor on for PE shows a nice normal sinus rhythm. No PVCs. No PACs. Cardiovascular -S1 plus S2, with regular rate, without any murmurs, gallops, rubs Pulmonary -clear to auscultation bilaterally; no wheezes. No rhonchi. No crackles. Gastrointestinal -abdomen is soft, nondistended, nontender, bowel sounds positive, no rigidity, no rebound Lower extremities: I do not detect any edema in her legs. Exam Physical Exam Vital Signs: Temp Pulse Resp BP Pulse Ox O2 Del Method 97.6 F 70 18 151/76 H 97 Room Air 11/26/24 08:13 11/26/24 08:13 11/26/24 08:13 11/26/24 08:13 11/26/24 08:13 11/26/24 08:13 Objective Lab Results 11/26/24 05:03 11/26/24 05:03 Meds Allergies and Active Meds Allergies No Known Allergies Allergy (Verified 11/25/24 13:12) Active Meds: Active Medications Generic Name Dose Route Start Last Admin Trade Name Freq PRN Reason Stop Dose Admin Acetaminophen 650 mg 11/25/24 16:32 Acetaminophen 325 Mg Tablet PO 11/25/25 16:31 Q4H PRN Pain Scale 1 - 5 Albuterol 2.5 mg 11/25/24 16:32 Albuterol Neb 2.5 Mg/3 Ml Vial.Neb INHALATION 11/25/25 16:31 Q2H PRN Shortness Of Breath Aspirin 81 mg 11/26/24 09:00 11/26/24 10:02 Aspirin 81 Mg Tablet. PO 11/26/25 08:59 81 mg DAILY EMMA Administration Atorvastatin Calcium 80 mg 11/26/24 09:00 11/26/24 10:03 Atorvastatin 80 Mg Tablet PO 11/26/25 08:59 80 mg DAILY EMMA Administration Carvedilol 6.25 mg 11/25/24 17:00 11/26/24 10:02 Carvedilol 6.25 Mg Tablet PO 11/25/25 16:59 6.25 mg BID.WITH.MEALS EMMA Administration Clopidogrel Bisulfate 75 mg 11/25/24 16:35 11/26/24 10:03 Clopidogrel Bisulfate 75 Mg Tablet PO 11/25/25 16:34 75 mg DAILY EMMA Administration Docusate Sodium 200 mg 11/25/24 16:32 Docusate 100 Mg Capsule PO 11/25/25 16:31 BID PRN Constipation Heparin Sodium (Porcine) 1,700 unit 11/25/24 15:49 Heparin *Protocol Bolus* 5,000 Unit/Ml Vial 25 unit/kg (1700 unit) 11/25/25 15:48 IV-PUSH PROTOCOL PRN Anti-Xa < 0.1 or aPTT < 40 Hydralazine HCl 10 mg 11/25/24 16:32 Hydralazine 20 Mg/Ml Vial IV-PUSH 11/25/25 16:31 Q4H PRN if SBP > 185 Heparin Sodium/Sodium Chloride 25,000 unit in 250 mls @ 8.088 mls/hr 11/25/24 16:00 11/25/24 21:47 Heparin IV 11/25/25 15:59 8 unit/kg/hr .Q24H EMMA 5.39 mls/hr Titration Protocol 12 UNIT/KG/HR Irbesartan 75 mg 11/26/24 09:00 11/26/24 10:03 Irbesartan 150 Mg Tablet PO 11/26/25 08:59 75 mg DAILY EMMA Administration Mirabegron 25 mg 11/25/24 22:00 11/25/24 21:47 Mirabegron 25 Mg Tab.Er.24h PO 11/25/25 21:59 25 mg QHS EMMA Administration Miscellaneous Information 1 each 11/25/24 15:49 Consult To Pharmacy MISCELLANE 11/25/25 15:48 .PHACONSULT PRN ZZ.Pharmacy Consult Protocol Nitroglycerin 0.4 mg 11/25/24 16:32 Nitroglycerin 0.4 Mg Tab.Subl SUBLINGUAL 11/25/25 16:31 Q5M PRN Chest Pain Pantoprazole Sodium 40 mg 11/26/24 09:00 11/26/24 10:03 Pantoprazole 40 Mg Tablet.Dr PO 11/26/25 08:59 40 mg DAILY EMMA Administration Sodium Chloride 0 ml 11/25/24 13:12 Sodium Chloride 0.9 % 10 Ml Syringe IV-PUSH 11/25/25 13:11 PRN PRN Flush A&P - Hospitalist Assessment/Plan (1) Unstable angina: (2) Non-ST elevation (NSTEMI) myocardial infarction: (3) Aortic stenosis: (4) Coronary artery disease: (5) Primary hypertension: Plan Unstable angina, non-ST elevation CA Cardiac catheterization due to plaque rupture with PCI in LAD in 11/2023, howevercouple days ago shestopped taking antiplatelets due to scheduled procedure Resume antiplatelet therapy, start heparin therapy, consult cardiology, check echocardiogram Plan: Awaiting cardiology input. Continue telemetry monitoring continuously. Continue heparin infusion on the ACS protocol. Check BMP, CBC, troponin, and twelve-lead EKG every morning. Documented By: Nolan Ballesteros DO 1221 Signed By: 11/26/24 1226 [facility]04-25-2025 History and physical note Author Katya Borges [facility] Note Date/Time November 25, 2024 4:3 6pm [facility] 27 [place] [address] Hospitalist H&P Signed Patient: Atiya Jha MR#: [id number] : 1940 Acct:[id number] Age/Sex: 84 / F Adm Date: 5 Loc: ER Room: Type: [facility] ER Attending Dr: Copies to: Ivan Barreto,DO Jerson Aranda, DO Katya Borges MD~ HPI DATE OF EXAMINATION: 11/25/24 CHIEF COMPLAINT: Shortness of breath HISTORY OF PRESENT ILLNESS: 84 years old female with underlying history of coronary artery disease, status post cardiac catheterization showing severe diffuse small vessel disease with ruptured plaque in the proximal LAD, with PCI in November 2023 presented with progressive shortness of breath and chest tightness. According to the patient she has been having the symptoms for about 3 weeks, especially with exertion, but she denies any paroxysmal nocturnal dyspnea, denies any orthopnea, denies any lower extremity swelling, last night she has been having chest tightness andshe was not able to sleep. Currently she is asymptomatic, while at rest she denies any shortness of breath any chest pain. Denies any nausea any sweating, any vomiting, any dizziness anylightheadedness. Denies any abdominal pain. No diarrhea. No dysuria. She also complains of being very tired weak especially with exertion She denies any signs of bleeding. No hematemesis, no melena, no hematochezia 3 days ago aspirin and Plavix was stopped as the patient was scheduled to undergo surgery for benign urethral nodule 10 systems are reviewed and are negative apart as mentioned H&P General -patient is awake alert oriented ?3, does not appear to be in distress, sitting in the edge of the bed HEENT -normal oropharyngeal mucosa without any ulcers or exudates Cardiovascular -S1 plus S2, with regular rate, without any murmurs, gallops, rubs Pulmonary -clear to auscultation bilaterally Gastrointestinal -abdomen is soft, nondistended, nontender, bowel sounds positive, no rigidity, no rebound Musculoskeletal -no joint swelling Neurological -no focal Skin -no significant ulcers, no rash noted Extremities - no edema in bilateral lower extremities noted Psychiatry - appropriate affect Laboratory work up, imaging studies reviewed EKG personally reviewed by me Previous records in the computer system reviewed Last echocardiogram ejection fraction 60 to 65%, with PA pressure 30 to 40% [facility] Medical History Low back pain Osteoporosis Unsteady gait Abdominal pain Anemia Screening mammogram for breast cancer Medicare annual wellness visit, subsequent Hypercholesterolemia Primary osteoarthritis of right hip Aortic stenosis Echo: JEANA 1.5cm, gradient , velocity 248 - 01/2024 Chronic venous insufficiency of lower extremity Heart failure with improved ejection fraction (HFimpEF) GERD (gastroesophageal reflux disease) Thyroid disease Lumbar spondylosis uses pain clinic for pain control Stage 3a chronic kidney disease (CKD) ASHD (arteriosclerotic heart disease) Echo: LVEF 60%, RVSP 30-40, , MR, TR - 01/2024 Abnormal weight loss Surgical History H/O total hip arthroplasty (~03/2011) left H/O total hip arthroplasty (~06/2021) right History of phacoemulsification of cataract of both eyes with intraocular lens implantation H/O bilateral cataract extraction History of surgery Trigger finger, left 2004 Trigger finger, right 06/2023 Eyelids lifted 2020 CTR right 06/2023 H/O abdominoplasty H/O bilateral breast reduction surgery History of cardiac catheterization (~11/2023) PCI/stent - 11/1999, PCI/stent LCX, PTCA distal LAD - 01/2023, PCI/stent LAD - 11/2023 Family History Sister Myocardial infarction Father Heart disease Myocardial infarction CHF (congestive heart failure) Hypertension Mother Social History Smoking Status: Never smoker Substance Use Type: None and Alcohol Substance Abuse Comment: socially Meds Medications and Allergies Allergies No Known Allergies Allergy (Verified 11/25/24 13:12) Home Medications aspirin 81 mg tablet,delayed release (Aspir-) 81 mg PO DAILY 11/02/17 [History Confirmed 11/25/24] alendronate 70 mg tablet 70 mg PO QWEEK 01/14/23 [History Confirmed 11/25/24] docusate sodium 50 mg capsule 50 mg PO BID 01/14/23 [History Confirmed 11/25/24] carvedilol 6.25 mg tablet 6.25 mg PO BID.WITH.MEALS #60 tabs 01/16/23 [Rx Confirmed 11/25/24] nitroglycerin 0.4 mg sublingual tablet 0.4 mg sublingual Q5M PRN Chest Pain #30 tabs 01/16/23 [Rx Confirmed 11/25/24] acetaminophen 500 mg tablet (Tylenol Extra Strength) 1,000 mg PO Q6HR PRN pain 11/16/23 [History Confirmed 11/25/24] calcium 500 mg (as carbonate)-vitamin D3 5 mcg (200 unit) tablet 1 tab PO DAILY 11/17/23 [History Confirmed 11/25/24] mirabegron 25 mg tablet,extended release 24 hr (Myrbetriq) 25 mg PO DAILY 03/02/24 [History Confirmed 11/25/24] telmisartan 20 mg tablet See Rx Instructions .Route .COMPLEX #30 tabs 03/14/24 [Rx Confirmed 11/25/24] atorvastatin 80 mg tablet See Rx Instructions .Route .COMPLEX #100 tabs 07/12/24[Rx Confirmed 11/25/24] clopidogrel 75 mg tablet 75 mg PO DAILY 90 days #90 tabs 10/26/24 [Rx Confirmed 11/25/24] pantoprazole 40 mg tablet,delayed release 40 mg PO DAILY 90 days #90 tabs 10/28/24 [Rx Confirmed 11/25/24] hydrochlorothiazide 25 mg tablet See Rx Instructions .Route .COMPLEX #15 tabs 10/31/24 [Rx Confirmed 11/25/24] estradiol 0.01% (0.1 mg/gram) vaginal cream 1 appful vaginal DAILY 11/25/24 [History Confirmed 11/25/24] Exam Physical Exam Vital Signs: Temp Pulse Resp BP Pulse Ox O2 Del Method 36.5 C 70 18 170/78 H 98 Room Air 11/25/24 13:25 11/25/24 16:09 11/25/24 16:09 11/25/24 16:09 11/25/24 16:09 11/25/24 16:09 Results - Hospitalist H&P Lab Results Labs: Laboratory Last Values Corrected WBC 6.2 X10E3/uL (3.8-11.6) 11/25/24 14:18 Uncorrected WBC Count 6.2 x10E3/uL (3.8-11.6) 11/25/24 14:18 RBC 3.75 x10E6/uL (3.60-5.00) 11/25/24 14:18 Hgb 12.1 g/dL (11.8-15.4) 11/25/24 14:18 Hct 35.2 % (34.0-46.4) 11/25/24 14:18 MCV 94.0 fl (80-100) 11/25/24 14:18 MCH 32.4 pg (24.7-34.3) 11/25/24 14:18 MCHC 34.5 g/dL (32.0-35.0) 11/25/24 14:18 RDW 13.8 % (11.9-15.3) 11/25/24 14:18 Plt Count 178 x10E3/uL (150-450) 11/25/24 14:18 MPV 7.5 fl (6.3-10.7) 11/25/24 14:18 Neut % (Auto) 54.7 % (.) 11/25/24 14:18 Lymph % (Auto) 32.0 % (.) 11/25/24 14:18 [place] % (Auto) 8.6 % (.) 11/25/24 14:18 Eos % (Auto) 3.4 % (.) 11/25/24 14:18 Baso % (Auto) 1.3 % (.) 11/25/24 14:18 Nucleat RBC Rel Count 0.1 /100 WBC (0-0.5) 11/25/24 14:18 Neut # (Auto) 3.4 x10E3/uL (1.8-7.7) 11/25/24 14:18 Lymph # (Auto) 2.0 x10E3/uL (1.00-4.8) 11/25/24 14:18 [place] # (Auto) 0.5 x10E3/uL (0.0-0.8) 11/25/24 14:18 Eos # (Auto) 0.2 x10E3/uL (0.0-0.45) 11/25/24 14:18 Baso # (Auto) 0.1 x10E3/uL (0.0-0.2) 11/25/24 14:18 Monocyte Dist Width 17.01 % (0.00-20.00) 11/25/24 14:18 PT 10.8 Seconds (9.0-12.9) 11/25/24 14:18 INR 0.9 11/25/24 14:18 PHA Creatinine Clear 46.26 11/25/24 14:18 Sodium 142 mmol/L (136-145) 11/25/24 14:18 Potassium 4.0 mmol/L (3.5-5.1) 11/25/24 14:18 Chloride 109 mmol/L (98-107) H 11/25/24 14:18 Carbon Dioxide 26.6 mmol/L (21.0-31.0) 11/25/24 14:18 Anion Gap 10.4 mEq/L (6.0-15.0) 11/25/24 14:18 BUN 13 mg/dL (7-25) 11/25/24 14:18 Creatinine 0.79 mg/dL (0.60-1.20) 11/25/24 14:18 Est GFR (CKD-EPI) > 60.0 mL/Min 11/25/24 14:18 Glucose 108 mg/dL (70-100) H 11/25/24 14:18 Calcium 9.5 mg/dL (8.6-10.3) 11/25/24 14:18 Total Creatine Kinase 129 U/L (30-223) 11/25/24 14:18 Troponin I High Sens 736 ng/L (0-15) H* 11/25/24 14:18 B-Natriuretic Peptide 981.0 pg/mL (5-100) H 11/25/24 14:18 Assessment & Plan Assessment/Plan (1) Hypercholesterolemia: Plan 1. Suspect non-ST elevation CA Cardiac catheterization due to plaque rupture with PCI in LAD in 11/2023, howevercouple days ago she stopped taking antiplatelets due to scheduled procedure Resume antiplatelet therapy, start heparin therapy, consult cardiology, check echocardiogram Continue telemetry, continue serial cardiac enzyme Currently asymptomatic IP vs OBS Justification Based on differential dx, clinical care plan, and risk of adverse events, if untreated, in my clinical judgement this patient requires an acute care setting as: INPATIENT because of an expectation of an over 2 midnight stay. Estimated length of stay (# of days): 3 Documented By: Katya Borges MD 11/25/24 1628 Signed By: <Electronically signed by Katya Borges MD> 11/25/24 1636 [facility] Work Phone: 1(721) 337-108304-25-2025 Evaluation note* Diagnosis Onset Date Resolution Status Admit Date Coronary artery disease acute A pril 2024 4:32pm Hypercholesterolemia acute Apri l 2024 4:32pm Low back pain acute November 25, 2024 4:32pm Non-ST elevation (NSTEMI) myocardial infarction acute November 4:32pm Primary hypertension acute 2024 4:32pm Unstable angina acute November 4:32pm Aortic stenosis deleted November 4:32pm Aortic stenosis acute December 12, 2024 11:19am ASHD (arteriosclerotic heart disease) acute December 12, 2024 11:19am Chronic venous insufficiency of lower extremity acute December 12, 2024 11:19am Heart failure with improved ejection fraction (HFimpEF) acute December 12, 2024 11:19am Hypercholesterolemia acute December 12, 2024 11:19am Lumbar spondylosis acute December 122024 11:19am Primary hypertension acute December 12, 2024 11:19am [facility] Work Phone: 1(576) 542-874204-25-2025 Evaluation note* Diagnosis Onset Date Resolution Status Admit Date Coronary artery disease acute A pril 2024 4:32pm Hypercholesterolemia acute Apri l 2024 4:32pm Low back pain acute November 25, 2024 4:32pm Non-ST elevation (NSTEMI) myocardial infarction acute November 4:32pm Primary hypertension acute Apri l 2024 4:32pm Unstable angina acute November 4:32pm Aortic stenosis deleted November 4:32pm Aortic stenosis acute December 12, 2024 11:19am ASHD (arteriosclerotic heart disease) acute December 12, 2024 11:19am Chronic venous insufficiency of lower extremity acute December 12, 2024 11:19am Heart failure with improved ejection fraction (HFimpEF) acute December 12, 2024 11:19am Hypercholesterolemia acute December 12, 2024 11:19am Lumbar spondylosis acute December 122024 11:19am Primary hypertension acute December 12, 2024 11:19am Accidental fall acute February 06, 2025 2:16pm Chest pain acute February 06, 2025 2:16pm Chest wall contusion acute February 06, 2025 2:16pm Contusion of left chest wall acute February 06, 2025 2:16pm [facility] Work Phone: 1([phone]) 687-246004-25-2025 Evaluation note* Diagnosis Onset Date Resolution Status Admit Date Coronary artery disease acute A pril 2024 4:32pm Hypercholesterolemia acute Apri l 2024 4:32pm Low back pain acute November 25, 2024 4:32pm Non-ST elevation (NSTEMI) myocardial infarction acute November 4:32pm Primary hypertension acute Apri l 2024 4:32pm Unstable angina acute November 4:32pm Aortic stenosis deleted November 4:32pm Aortic stenosis acute December 12, 2024 11:19am ASHD (arteriosclerotic heart disease) acute December 12, 2024 11:19am Chronic venous insufficiency of lower extremity acute December 12, 2024 11:19am Heart failure with improved ejection fraction (HFimpEF) acute December 12, 2024 11:19am Hypercholesterolemia acute December 12, 2024 11:19am Lumbar spondylosis acute December 122024 11:19am Primary hypertension acute December 12, 2024 11:19am Accidental fall acute February 06, 2025 2:16pm Chest pain acute February 06, 2025 2:16pm Contusion of left chest wall acute February 06, 2025 2:16pm Contusion of left shoulder acute February 06, 2025 2:16pm Debility acute February 09 10:10pm Hypertensive urgency acute February 09, 2025 10:10pm Hyponatremia acute February 09, 025 10:10pm Unsteadiness acute February 09, 025 10:10pm [facility] Work Phone: 1([phone]) 929-753404-25-2025 Evaluation note* Diagnosis Onset Date Resolution Status Admit Date Coronary artery disease acute A pril 2024 4:32pm Hypercholesterolemia acute 2024 4:32pm Low back pain acute November 25, 2024 4:32pm Non-ST elevation (NSTEMI) myocardial infarction acute November 4:32pm Primary hypertension acute Apri l 2024 4:32pm Unstable angina acute November 4:32pm Aortic stenosis deleted November 4:32pm Aortic stenosis acute December 12, 2024 11:19am ASHD (arteriosclerotic heart disease) acute December 12, 2024 11:19am Chronic venous insufficiency of lower extremity acute December 12, 2024 11:19am Heart failure with improved ejection fraction (HFimpEF) acute December 12, 2024 11:19am Hypercholesterolemia acute December 12, 2024 11:19am Lumbar spondylosis acute December 122024 11:19am Primary hypertension acute December 12, 2024 11:19am Accidental fall acute February 06, 2025 2:16pm Chest pain acute February 06, 2025 2:16pm Contusion of left chest wall acute February 06, 2025 2:16pm Contusion of left shoulder acute February 06, 2025 2:16pm Accidental fall acute January 11:01pm Debility acute February 09 11:01pm Hypertensive emergency acute 2024 11:01pm Hypertensive urgency acute February 09, 2025 11:01pm Hyponatremia acute February 09, 025 11:01pm Nausea & vomiting acute February 092024 11:01pm Unsteadiness acute February 09, 2 025 11:01pm [facility] Work Phone: 1([phone]) 284-817704-25-2025 Evaluation note* Diagnosis Onset Date Resolution Status Admit Date Coronary artery disease acute A pri2024 4:32pm Hypercholesterolemia acute l 2024 4:32pm Low back pain acute November 25, 2024 4:32pm Non-ST elevation (NSTEMI) myocardial infarction acute November 4:32pm Primary hypertension acute Novi 2024 4:32pm Unstable angina acute November 4:32pm Aortic stenosis deleted November 4:32pm Aortic stenosis acute December 12, 2024 11:19am ASHD (arteriosclerotic heart disease) acute December 12, 2024 11:19am Chronic venous insufficiency of lower extremity acute December 12, 2024 11:19am Heart failure with improved ejection fraction (HFimpEF) acute December 12, 2024 11:19am Hypercholesterolemia acute December 12, 2024 11:19am Lumbar spondylosis acute December 122024 11:19am Primary hypertension acute December 12, 2024 11:19am Chest pain acute February 06, 2025 2:16pm Contusion of left chest wall acute February 06, 2025 2:16pm Contusion of left shoulder acute February 06, 2025 2:16pm Accidental fall inactive February 06, 2025 2:16pm Debility resolved February 09 10:10pm Hypertensive emergency resolved 2024 10:10pm Hypertensive urgency resolved February 09, 2025 10:10pm Hyponatremia resolved February 09, 2 025 10:10pm Nausea & vomiting resolved February 092024 10:10pm Unsteadiness resolved February 09, 2 025 10:10pm Accidental fall inactive January 10:10pm [facility] Work Phone: 1([phone]) 191-173104-25-2025 Evaluation note* Diagnosis Onset Date Resolution Status Admit Date Hypercholesterolemia acute 2024 4:32pm Low back pain acute November 25, 2024 4:32pm Primary hypertension acute 2024 4:32pm Non-ST elevation (NSTEMI) myocardial infarction resolved November 4:32pm Aortic stenosis deleted November 4:32pm Coronary artery disease deleted A pril 2024 4:32pm Unstable angina deleted November 4:32pm Aortic stenosis acute December 12, 2024 11:19am ASHD (arteriosclerotic heart disease) acute December 12, 2024 11:19am Chronic venous insufficiency of lower extremity acute December 12, 2024 11:19am Heart failure with improved ejection fraction (HFimpEF) acute December 12, 2024 11:19am Hypercholesterolemia acute December 12, 2024 11:19am Lumbar spondylosis acute December 122024 11:19am Primary hypertension acute December 12, 2024 11:19am Contusion of left chest wall resolve d February 06, 2025 2:16pm Accidental fall inactive February 06, 2025 2:16pm Chest pain deleted February 06, 2025 2:16pm Contusion of left shoulder deleted February 06, 2025 2:16pm Debility resolved February 09 10:10pm Hypertensive emergency resolved 2024 10:10pm Hypertensive urgency resolved February 09, 2025 10:10pm Hyponatremia resolved February 09 10:10pm Nausea & vomiting resolved February 092024 10:10pm Unsteadiness resolved February 09 10:10pm Accidental fall inactive January 10:10pm Abnormal serum protein electrophoresis acute February 24, 2025 10:16am Heart failure with improved ejection fraction (HFimpEF) acute February 24, 2025 10:16am Hyponatremia acute February 24 10:16am Ischemic cardiomyopathy acute 2024 10:16am Primary hypertension acute February 24, 2025 10:16am Rib fracture acute February 24 10:16am [facility] Work Phone: 1([phone]) 255-271104-25-2025 [place] [address] Hospitalist H&P Signed Patient: Atiya Jha MR#: [id number] : 1940 Acct:[id number] Age/Sex: 84 / F Adm Date: Loc: ER Room: Type: [facility] ER Attending Dr: Copies to: Ivan Barreto,DO Jerson Aranda, DO Katya Borges MD~ HPI DATE OF EXAMINATION: 11/25/24 CHIEF COMPLAINT: Shortness of breath HISTORY OF PRESENT ILLNESS: 84 years old female with underlying history of coronary artery disease, status post cardiac catheterization showing severe diffuse small vessel disease with ruptured plaque in the proximal LAD, with PCI in November 2023 presented with progressive shortness of breath and chest tightness. According to the patient she has been having the symptoms for about 3 weeks, especially with exertion, but she denies any paroxysmal nocturnal dyspnea, denies any orthopnea, denies any lower extremity swelling, last night she has been having chest tightness andshe was not able to sleep. Currently she is asymptomatic, while at rest she denies any shortness of breath any chest pain. Denies any nausea any sweating, any vomiting, any dizziness anylightheadedness. Denies any abdominal pain. No diarrhea. No dysuria. She also complains of being very tired weak especially with exertion She denies any signs of bleeding. No hematemesis, no melena, no hematochezia 3 days ago aspirin and Plavix was stopped as the patient was scheduled to undergo surgery for benign urethral nodule 10 systems are reviewed and are negative apart as mentioned H&P General -patient is awake alert oriented ?3, does not appear to be in distress, sitting in the edgeof the bed HEENT -normal oropharyngeal mucosa without any ulcers or exudates Cardiovascular -S1 plus S2, with regular rate, without any murmurs, gallops, rubs Pulmonary -clear to auscultation bilaterally Gastrointestinal -abdomen is soft, nondistended, nontender, bowel sounds positive, no rigidity, no rebound Musculoskeletal -no joint swelling Neurological -no focal Skin -no significant ulcers, no rash noted Extremities - no edema in bilateral lower extremities noted Psychiatry - appropriate affect Laboratory work up, imaging studies reviewed EKG personally reviewed by me Previous records in the computer system reviewed Last echocardiogram ejection fraction 60 to 65%, with PA pressure 30 to 40% [facility] Medical History Low back pain Osteoporosis Unsteady gait Abdominal pain Anemia Screening mammogram for breast cancer Medicare annual wellness visit, subsequent Hypercholesterolemia Primary osteoarthritis of right hip Aortic stenosis Echo: JEANA 1.5cm, gradient 24/14, velocity 248 - 01/2024 Chronic venous insufficiency of lower extremity Heart failure with improved ejection fraction (HFimpEF) GERD (gastroesophageal reflux disease) Thyroid disease Lumbar spondylosis uses pain clinic for pain control Stage 3a chronic kidney disease (CKD) ASHD (arteriosclerotic heart disease) Echo: LVEF 60%, RVSP 30-40, , MR, TR - 01/2024 Abnormal weight loss Surgical History H/O total hip arthroplasty (~03/2011) left H/O total hip arthroplasty (~06/2021) right History of phacoemulsification of cataract of both eyes with intraocular lens implantation H/O bilateral cataract extraction History of surgery Trigger finger, left 2004 Trigger finger, right 06/2023 Eyelids lifted 2020 CTR right 06/2023 H/O abdominoplasty H/O bilateral breast reduction surgery History of cardiac catheterization (~11/2023) PCI/stent - 11/1999, PCI/stent LCX, PTCA distal LAD - 01/2023, PCI/stent LAD - 11/2023 Family History Sister Myocardial infarction Father Heart disease Myocardial infarction CHF (congestive heart failure) Hypertension Mother Social History Smoking Status: Never smoker Substance Use Type: None and Alcohol Substance Abuse Comment: socially Meds Medications and Allergies Allergies No Known Allergies Allergy (Verified 11/25/24 13:12) Home Medications aspirin 81 mg tablet,delayed release (Aspir-) 81 mg PO DAILY 11/02/17 [History Confirmed 11/25/24] alendronate 70 mg tablet 70 mg PO QWEEK 01/14/23 [History Confirmed 11/25/24] docusate sodium 50 mg capsule 50 mg PO BID 01/14/23 [History Confirmed 11/25/24] carvedilol 6.25 mg tablet 6.25 mg PO BID.WITH.MEALS #60 tabs 01/16/23 [Rx Confirmed 11/25/24] nitroglycerin 0.4 mg sublingual tablet 0.4 mg sublingual Q5M PRN Chest Pain #30 tabs 01/16/23 [Rx Confirmed 11/25/24] acetaminophen 500 mg tablet (Tylenol Extra Strength) 1,000 mg PO Q6HR PRN pain 11/16/23 [History Confirmed 11/25/24] calcium 500 mg (as carbonate)-vitamin D3 5 mcg (200 unit) tablet 1 tab PO DAILY 11/17/23 [History Confirmed 11/25/24] mirabegron 25 mg tablet,extended release 24 hr (Myrbetriq) 25 mg PO DAILY 03/02/24 [History Confirmed 11/25/24] telmisartan 20 mg tablet See Rx Instructions .Route .COMPLEX #30 tabs 03/14/24 [Rx Confirmed 11/25/24] atorvastatin 80 mg tablet See Rx Instructions .Route .COMPLEX #100 tabs 07/12/24[Rx Confirmed 11/25/24] clopidogrel 75 mg tablet 75 mg PO DAILY 90 days #90 tabs 10/26/24 [Rx Confirmed 11/25/24] pantoprazole 40 mg tablet,delayed release 40 mg PO DAILY 90 days #90 tabs 10/28/24 [Rx Confirmed 11/25/24] hydrochlorothiazide 25 mg tablet See Rx Instructions .Route .COMPLEX #15 tabs 10/31/24 [Rx Confirmed 11/25/24] estradiol 0.01% (0.1 mg/gram) vaginal cream 1 appful vaginal DAILY 11/25/24 [History Confirmed 11/25/24] Exam Physical Exam Vital Signs: Temp Pulse Resp BP Pulse Ox O2 Del Method 36.5 C 70 18 170/78 H 98 Room Air 11/25/24 13:25 11/25/24 16:09 11/25/24 16:09 11/25/24 16:09 11/25/24 16:09 11/25/24 16:09 Results - Hospitalist H&P Lab Results Labs: Laboratory Last Values Corrected WBC 6.2 X10E3/uL (3.8-11.6) 11/25/24 14:18 Uncorrected WBC Count 6.2 x10E3/uL (3.8-11.6) 11/25/24 14:18 RBC 3.75 x10E6/uL (3.60-5.00) 11/25/24 14:18 Hgb 12.1 g/dL (11.8-15.4) 11/25/24 14:18 Hct 35.2 % (34.0-46.4) 11/25/24 14:18 MCV 94.0 fl (80-100) 11/25/24 14:18 MCH 32.4 pg (24.7-34.3) 11/25/24 14:18 MCHC 34.5 g/dL (32.0-35.0) 11/25/24 14:18 RDW 13.8 % (11.9-15.3) 11/25/24 14:18 Plt Count 178 x10E3/uL (150-450) 11/25/24 14:18 MPV 7.5 fl (6.3-10.7) 11/25/24 14:18 Neut % (Auto) 54.7 % (.) 11/25/24 14:18 Lymph % (Auto) 32.0 % (.) 11/25/24 14:18 [place] % (Auto) 8.6 % (.) 11/25/24 14:18 Eos % (Auto) 3.4 % (.) 11/25/24 14:18 Baso % (Auto) 1.3 % (.) 11/25/24 14:18 Nucleat RBC Rel Count 0.1 /100 WBC (0-0.5) 11/25/24 14:18 Neut # (Auto) 3.4 x10E3/uL (1.8-7.7) 11/25/24 14:18 Lymph # (Auto) 2.0 x10E3/uL (1.00-4.8) 11/25/24 14:18 [place] # (Auto) 0.5 x10E3/uL (0.0-0.8) 11/25/24 14:18 Eos # (Auto) 0.2 x10E3/uL (0.0-0.45) 11/25/24 14:18 Baso # (Auto) 0.1 x10E3/uL (0.0-0.2) 11/25/24 14:18 Monocyte Dist Width 17.01 % (0.00-20.00) 11/25/24 14:18 PT 10.8 Seconds (9.0-12.9) 11/25/24 14:18 INR 0.9 11/25/24 14:18 PHA Creatinine Clear 46.26 11/25/24 14:18 Sodium 142 mmol/L (136-145) 11/25/24 14:18 Potassium 4.0 mmol/L (3.5-5.1) 11/25/24 14:18 Chloride 109 mmol/L (98-107) H 11/25/24 14:18 Carbon Dioxide 26.6 mmol/L (21.0-31.0) 11/25/24 14:18 Anion Gap 10.4 mEq/L (6.0-15.0) 11/25/24 14:18 BUN 13 mg/dL (7-25) 11/25/24 14:18 Creatinine 0.79 mg/dL (0.60-1.20) 11/25/24 14:18 Est GFR (CKD-EPI) > 60.0 mL/Min 11/25/24 14:18 Glucose 108 mg/dL (70-100) H 11/25/24 14:18 Calcium 9.5 mg/dL (8.6-10.3) 11/25/24 14:18 Total Creatine Kinase 129 U/L (30-223) 11/25/24 14:18 Troponin I High Sens 736 ng/L (0-15) H* 11/25/24 14:18 B-Natriuretic Peptide 981.0 pg/mL (5-100) H 11/25/24 14:18 Assessment & Plan Assessment/Plan (1) Hypercholesterolemia: Plan 1. Suspect non-ST elevation CA Cardiac catheterization due to plaque rupture with PCI in LAD in 11/2023, howevercouple days ago shestopped taking antiplatelets due to scheduled procedure Resume antiplatelet therapy, start heparin therapy, consult cardiology, check echocardiogram Continue telemetry, continue serial cardiac enzyme Currently asymptomatic IP vs OBS Justification Based on differential dx, clinical care plan, and risk of adverse events, if untreated, in my clinical judgement this patient requires an acute care setting as: INPATIENT because of an expectation ofan over 2 midnight stay. Estimated length of stay (# of days): 3 Documented By: Katya Borges MD 11/25/24 1628 Signed By: 11/25/24 1636 [facility]04-02-2025 History and physical note Author Katya Borges [facility] Note Date/Time November 25, 2024 4:3 6pm [facility] EN[facility] [address] [place] [address] Hospitalist H&P Signed Patient: Atiya Jha MR#: [id number] : 1940 Acct:[id number] Age/Sex: 84 / F Adm Date: 5 Loc: ER Room: Type: [facility] ER Attending Dr: Copies to: Ivan Barreto,DO Jerson Aranda, DO Katya Borges MD~ HPI DATE OF EXAMINATION: 11/25/24 CHIEF COMPLAINT: Shortness of breath HISTORY OF PRESENT ILLNESS: 84 years old female with underlying history of coronary artery disease, status post cardiac catheterization showing severe diffuse small vessel disease with ruptured plaque in the proximal LAD, with PCI in November 2023 presented with progressive shortness of breath and chest tightness. According to the patient she has been having the symptoms for about 3 weeks, especially with exertion, but she denies any paroxysmal nocturnal dyspnea, denies any orthopnea, denies any lower extremity swelling, last night she has been having chest tightness andshe was not able to sleep. Currently she is asymptomatic, while at rest she denies any shortness of breath any chest pain. Denies any nausea any sweating, any vomiting, any dizziness anylightheadedness. Denies any abdominal pain. No diarrhea. No dysuria. She also complains of being very tired weak especially with exertion She denies any signs of bleeding. No hematemesis, no melena, no hematochezia 3 days ago aspirin and Plavix was stopped as the patient was scheduled to undergo surgery for benign urethral nodule 10 systems are reviewed and are negative apart as mentioned H&P General -patient is awake alert oriented ?3, does not appear to be in distress, sitting in the edge of the bed HEENT -normal oropharyngeal mucosa without any ulcers or exudates Cardiovascular -S1 plus S2, with regular rate, without any murmurs, gallops, rubs Pulmonary -clear to auscultation bilaterally Gastrointestinal -abdomen is soft, nondistended, nontender, bowel sounds positive, no rigidity, no rebound Musculoskeletal -no joint swelling Neurological -no focal Skin -no significant ulcers, no rash noted Extremities - no edema in bilateral lower extremities noted Psychiatry - appropriate affect Laboratory work up, imaging studies reviewed EKG personally reviewed by me Previous records in the computer system reviewed Last echocardiogram ejection fraction 60 to 65%, with PA pressure 30 to 40% PMFSH Medical History Low back pain Osteoporosis Unsteady gait Abdominal pain Anemia Screening mammogram for breast cancer Medicare annual wellness visit, subsequent Hypercholesterolemia Primary osteoarthritis of right hip Aortic stenosis Echo: JEANA 1.5cm, gradient 24/, velocity 248 - 01/2024 Chronic venous insufficiency of lower extremity Heart failure with improved ejection fraction (HFimpEF) GERD (gastroesophageal reflux disease) Thyroid disease Lumbar spondylosis uses pain clinic for pain control Stage 3a chronic kidney disease (CKD) ASHD (arteriosclerotic heart disease) Echo: LVEF 60%, RVSP 30-40, , MR, TR - 01/2024 Abnormal weight loss Surgical History H/O total hip arthroplasty (~03/2011) left H/O total hip arthroplasty (~06/2021) right History of phacoemulsification of cataract of both eyes with intraocular lens implantation H/O bilateral cataract extraction History of surgery Trigger finger, left 2004 Trigger finger, right 06/2023 Eyelids lifted 2020 CTR right 06/2023 H/O abdominoplasty H/O bilateral breast reduction surgery History of cardiac catheterization (~11/2023) PCI/stent - 11/1999, PCI/stent LCX, PTCA distal LAD - 01/2023, PCI/stent LAD - 11/2023 Family History Sister Myocardial infarction Father Heart disease Myocardial infarction CHF (congestive heart failure) Hypertension Mother Social History Smoking Status: Never smoker Substance Use Type: None and Alcohol Substance Abuse Comment: socially Meds Medications and Allergies Allergies No Known Allergies Allergy (Verified 11/25/24 13:12) Home Medications aspirin 81 mg tablet,delayed release (Aspir-) 81 mg PO DAILY 11/02/17 [History Confirmed 11/25/24] alendronate 70 mg tablet 70 mg PO QWEEK 01/14/23 [History Confirmed 11/25/24] docusate sodium 50 mg capsule 50 mg PO BID 01/14/23 [History Confirmed 11/25/24] carvedilol 6.25 mg tablet 6.25 mg PO BID.WITH.MEALS #60 tabs 01/16/23 [Rx Confirmed 11/25/24] nitroglycerin 0.4 mg sublingual tablet 0.4 mg sublingual Q5M PRN Chest Pain #30 tabs 01/16/23 [Rx Confirmed 11/25/24] acetaminophen 500 mg tablet (Tylenol Extra Strength) 1,000 mg PO Q6HR PRN pain 11/16/23 [History Confirmed 11/25/24] calcium 500 mg (as carbonate)-vitamin D3 5 mcg (200 unit) tablet 1 tab PO DAILY 11/17/23 [History Confirmed 11/25/24] mirabegron 25 mg tablet,extended release 24 hr (Myrbetriq) 25 mg PO DAILY 03/02/24 [History Confirmed 11/25/24] telmisartan 20 mg tablet See Rx Instructions .Route .COMPLEX #30 tabs 03/14/24 [Rx Confirmed 11/25/24] atorvastatin 80 mg tablet See Rx Instructions .Route .COMPLEX #100 tabs 07/12/24[Rx Confirmed 11/25/24] clopidogrel 75 mg tablet 75 mg PO DAILY 90 days #90 tabs 10/26/24 [Rx Confirmed 11/25/24] pantoprazole 40 mg tablet,delayed release 40 mg PO DAILY 90 days #90 tabs 10/28/24 [Rx Confirmed 11/25/24] hydrochlorothiazide 25 mg tablet See Rx Instructions .Route .COMPLEX #15 tabs 10/31/24 [Rx Confirmed 11/25/24] estradiol 0.01% (0.1 mg/gram) vaginal cream 1 appful vaginal DAILY 11/25/24 [History Confirmed 11/25/24] Exam Physical Exam Vital Signs: Temp Pulse Resp BP Pulse Ox O2 Del Method 36.5 C 70 18 170/78 H 98 Room Air 11/25/24 13:25 11/25/24 16:09 11/25/24 16:09 11/25/24 16:09 11/25/24 16:09 11/25/24 16:09 Results - Hospitalist H&P Lab Results Labs: Laboratory Last Values Corrected WBC 6.2 X10E3/uL (3.8-11.6) 11/25/24 14:18 Uncorrected WBC Count 6.2 x10E3/uL (3.8-11.6) 11/25/24 14:18 RBC 3.75 x10E6/uL (3.60-5.00) 11/25/24 14:18 Hgb 12.1 g/dL (11.8-15.4) 11/25/24 14:18 Hct 35.2 % (34.0-46.4) 11/25/24 14:18 MCV 94.0 fl (80-100) 11/25/24 14:18 MCH 32.4 pg (24.7-34.3) 11/25/24 14:18 MCHC 34.5 g/dL (32.0-35.0) 11/25/24 14:18 RDW 13.8 % (11.9-15.3) 11/25/24 14:18 Plt Count 178 x10E3/uL (150-450) 11/25/24 14:18 MPV 7.5 fl (6.3-10.7) 11/25/24 14:18 Neut % (Auto) 54.7 % (.) 11/25/24 14:18 Lymph % (Auto) 32.0 % (.) 11/25/24 14:18 [place] % (Auto) 8.6 % (.) 11/25/24 14:18 Eos % (Auto) 3.4 % (.) 11/25/24 14:18 Baso % (Auto) 1.3 % (.) 11/25/24 14:18 Nucleat RBC Rel Count 0.1 /100 WBC (0-0.5) 11/25/24 14:18 Neut # (Auto) 3.4 x10E3/uL (1.8-7.7) 11/25/24 14:18 Lymph # (Auto) 2.0 x10E3/uL (1.00-4.8) 11/25/24 14:18 [place] # (Auto) 0.5 x10E3/uL (0.0-0.8) 11/25/24 14:18 Eos # (Auto) 0.2 x10E3/uL (0.0-0.45) 11/25/24 14:18 Baso # (Auto) 0.1 x10E3/uL (0.0-0.2) 11/25/24 14:18 Monocyte Dist Width 17.01 % (0.00-20.00) 11/25/24 14:18 PT 10.8 Seconds (9.0-12.9) 11/25/24 14:18 INR 0.9 11/25/24 14:18 PHA Creatinine Clear 46.26 11/25/24 14:18 Sodium 142 mmol/L (136-145) 11/25/24 14:18 Potassium 4.0 mmol/L (3.5-5.1) 11/25/24 14:18 Chloride 109 mmol/L (98-107) H 11/25/24 14:18 Carbon Dioxide 26.6 mmol/L (21.0-31.0) 11/25/24 14:18 Anion Gap 10.4 mEq/L (6.0-15.0) 11/25/24 14:18 BUN 13 mg/dL (7-25) 11/25/24 14:18 Creatinine 0.79 mg/dL (0.60-1.20) 11/25/24 14:18 Est GFR (CKD-EPI) > 60.0 mL/Min 11/25/24 14:18 Glucose 108 mg/dL (70-100) H 11/25/24 14:18 Calcium 9.5 mg/dL (8.6-10.3) 11/25/24 14:18 Total Creatine Kinase 129 U/L (30-223) 11/25/24 14:18 Troponin I High Sens 736 ng/L (0-15) H* 11/25/24 14:18 B-Natriuretic Peptide 981.0 pg/mL (5-100) H 11/25/24 14:18 Assessment & Plan Assessment/Plan (1) Hypercholesterolemia: Plan 1. Suspect non-ST elevation CA Cardiac catheterization due to plaque rupture with PCI in LAD in 11/2023, howevercouple days ago she stopped taking antiplatelets due to scheduled procedure Resume antiplatelet therapy, start heparin therapy, consult cardiology, check echocardiogram Continue telemetry, continue serial cardiac enzyme Currently asymptomatic IP vs OBS Justification Based on differential dx, clinical care plan, and risk of adverse events, if untreated, in my clinical judgement this patient requires an acute care setting as: INPATIENT because of an expectation of an over 2 midnight stay. Estimated length of stay (# of days): 3 Documented By: Katya Borges MD 11/25/24 1628 Signed By: <Electronically signed by Katya Borges MD> 11/25/24 1636 [facility] Work Phone: 1(937) 496-305203-26-2025 History of Present illness Narrative* Jamia Ndiaye MD - 10/26/2024 3:10 PM EDT Chief Complaint Patient presents with Follow-up Patient here for 9 month follow up for congestive heart failure, denies cardiac c/o at this time. Subjective Atiya Jha is a 84 y.o. female HPI Patient is here for follow-up continue management for history of two-vessel coronary artery diseasewith her last intervention PCI to the LAD in November 2023, mixed hyperlipidemia, mild aortic stenosisand hypertension. Since last time I saw her she reports she is feeling well. She denies any cardiaccomplaint of chest pain, palpitation, lightheadedness, dizziness or syncope. She reports that she was diagnosed with bladder growth and she is planning to proceed with removal of that I request preoperative risk assessment. Assessment 1. Two-vessel coronary artery disease with previous PCI to the circumflex with repeat intervention to the LAD back in November 2023. Stable no chest pain 2. Mixed hyperlipidemia 3. Mild aortic stenosis 4. Previous documentation of mild LV systolic dysfunction on heart cath but recent echo showed normal LVEF 5. Hypertension 6. Patient indicated to me that she change her mind and is not pursuing back surgery anymore however she developed some hematuria and my understanding she is undergoing evaluation for possible resection of bladder tumor she and requesting evaluation for that. 5. BMI 24 Plan 1. I discussed with the patient that she can proceed with surgery if needed and she can hold aspirin and Plavix for 5 to 7 days if needed 2. Continue with aggressive approach risk factor modification 3. I advised her to switch her Brilinta to Plavix 75 mg daily 4. I will see her back in 8-month with plan to repeat lab work as ordered Review of Systems All other systems reviewed and are negative. EKG done in office today Vitals: 10/26/24 1519 BP: 122/84 BP Location: Left arm Patient Position: Sitting Pulse: 68 Weight: 67.6 kg (149 lb) Height: 1.651 m (5' 5 ) [...] by mouth 2 times daily (morning and lateafternoon)., Disp: 180 tablet, Rfl: 3 cholecalciferol (Vitamin D-3) 125 mcg (5000 UT) capsule, Take 1,000 Units by mouth once daily., Disp: , Rfl: docusate sodium (Colace) 50 mg capsule, Take 2 capsules (100 mg) by mouth 2 times a day as needed.,Disp: , Rfl: mirabegron (Myrbetriq) 25 mg tablet extended release 24 hr 24 hr tablet, Take 1 tablet (25 mg) by mouth once daily., Disp: , Rfl: nitroglycerin (Nitrostat) 0.4 mg SL tablet, Place 1 tablet (0.4 mg) under the tongue every 5 minutes if needed for chest pain., Disp: , Rfl: omeprazole (PriLOSEC) [address] capsule, Take 10 mg by mouth once daily., Disp: , Rfl: telmisartan-hydrochlorothiazid (MIcarDIS HCT) 40-12.5 mg tablet, Take 1 tablet by mouth early in the morning.., Disp: , Rfl: clopidogrel (Plavix) 75 mg tablet, Take 1 tablet (75 mg) by mouth once daily., Disp: 90 tablet, Rfl: 3 Assessment/Plan 1. Two-vessel coronary artery disease 2. ASCVD (arteriosclerotic cardiovascular disease) Follow Up In Cardiology clopidogrel (Plavix) 75 mg tablet ECG 12 Lead Follow Up In Cardiology Alanine Aminotransferase Aspartate Aminotransferase Basic Metabolic Panel Lipid Panel Alanine Aminotransferase Aspartate Aminotransferase Basic Metabolic Panel Lipid Panel 3. Mixed hyperlipidemia Alanine Aminotransferase Aspartate Aminotransferase Lipid Panel Alanine Aminotransferase Aspartate Aminotransferase Lipid Panel 4. Mild aortic stenosis 5. History of PTCA 6. Essential hypertension 7. Congestive heart failure, NYHA class 2 and ACC/AHA stage C Basic Metabolic Panel Basic Metabolic Panel 8. BMI 24.0-24.9, adult 9. Never smoked cigarettes Scribe Attestation By signing my name below, I, Josefina Dodson LPN , Gi attest that this documentation has been prepared under the direction and in the presence of MD Casi. Provider Attestation - Scribe documentation All medical record entries made by the Scribe were at my direction and personally dictated by me. Ihave reviewed the chart and agree that the record accurately reflects my personal performance of the history, physical exam, discussion and plan. documented in this [facility] Work Phone: 1(671) 340-297403-26-2025 Instructions* Patient Instructions* Josefina Victoria LPN - 10/26/2024 3:10 PM EDT Please bring all medicines, vitamins, and herbal supplements with you when you come to the office. Prescriptions will not be filled unless you are compliant with your follow up appointments or have a follow up appointment scheduled as per instruction of your physician. Refills should be requested at the time of your visit. Stop Brilinta Start plavix Lab work documented in this encounterUniversity [facility] Work Phone: 1(729) 955-208203-18-2025 Evaluation note* Diagnosis Onset Date Resolution Status Admit Date Low back pain acute October 18, 2024 10:53am Lumbar spondylosis acute October 18, 2024 10:53am Osteoporosis acute October 18, 2024 10:53am Primary hypertension acute Stas h 2024 10:53am Hypercholesterolemia acute Apri l 2024 4:32pm [facility] Work Phone: 1(222) 568-618803-18-2025 Evaluation note* Diagnosis Onset Date Resolution Status Admit Date Low back pain acute October 18, 2024 10:53am Lumbar spondylosis acute October 18, 2024 10:53am Osteoporosis acute October 18, 2024 10:53am Primary hypertension acute Stas h 2024 10:53am Aortic stenosis acute November 4:32pm Coronary artery disease acute A pri2024 4:32pm Hypercholesterolemia acute 2024 4:32pm Low back pain acute November 25, 2024 4:32pm Non-ST elevation (NSTEMI) my ocardial infarction acute November 25, 2024 4:32pm Primary hypertension acute Apri l 2024 4:32pm Unstable angina acute November 4:32pm [facility] Work Phone: 1([phone]) 124-107303-18-2025 Evaluation note* Diagnosis Onset Date Resolution Status Admit Date Low back pain acute October 18, 2024 10:53am Lumbar spondylosis acute October 18, 2024 10:53am Osteoporosis acute October 18, 2024 10:53am Primary hypertension acute Stas h 2024 10:53am Coronary artery disease acute A pril 2024 4:32pm Hypercholesterolemia acute l 2024 4:32pm Low back pain acute November 25, 2024 4:32pm Non-ST elevation (NSTEMI) myocardial infarction acute November 4:32pm Primary hypertension acute Novi l 2024 4:32pm Unstable angina acute November 4:32pm Aortic stenosis deleted November 4:32pm ASHD (arteriosclerotic heart disease) acute December 12, 2024 11:19am Chronic venous insufficiency of lower extremity acute December 12, 2024 11:19am Heart failure with improved ejection fraction (HFimpEF) acute December 12, 2024 11:19am Hypercholesterolemia acute December 12, 2024 11:19am Lumbar spondylosis acute December 122024 11:19am Primary hypertension acute December 12, 2024 11:19am [facility] Work Phone: 1(954) 304-916903-10-2025 History of Present illness Narrative* Yoselin Weir DPM - 10/10/2024 1:00 PM EDT Images from the original note were not included. Subjective Patient ID: Atiya Jha is a 84 y.o. female who presents for Toenail Care (Established pt presents today with her for nail care. ). HPI HPI Onychomycosis/Toenail Fungus: [...] every 5 (five) minutes ifneeded for chest pain., Disp: , Rfl: nystatin (Mycostatin) ointment, Apply thin film BID prn irritation, Disp: 30 g, Rfl: 1 nystatin-triamcinolone (Mycolog II) ointment, Apply topically 2 (two) times a day, Disp: 15 g, Rfl:2 Omeprazole Magnesium (PRILOSEC PO), Take by mouth, Disp: , Rfl: telmisartan (MIcarDIS) 20 MG tablet, Take 20 mg by mouth Daily, Disp: , Rfl: telmisartan-hydroCHLOROthiazide (MIcarDIS HCT) 40-12.5 MG tablet, Take 1 tablet by mouth in the morning., Disp: , Rfl: ticagrelor (Brilinta) 90 MG tablet, Take 90 mg by mouth in the morning and 90 mg before bedtime., Disp: , Rfl: Allergies Patient has no known allergies. Past Surgical History Past Surgical History: Procedure Laterality Date AMB EPIDURAL STEROID INJECTION 12/2017 L4-L5 BELT ABDOMINOPLASTY 2002 CARDIAC CATHETERIZATION 2004 COLONOSCOPY 2010 nl /Grillis COLONOSCOPY 02/2020 few diverticula /Grillis [...] SURGICAL HISTORY 11/2020 right intrarticular hip injection OK BREAST REDUCTION 1999 TRIGGER FINGER RELEASE 03/02/2019 [...] or corrected. Thank you for your understanding. Yoselin Weir DPM documented in this encounterWright Memorial [id number] History of Present illness Narrative* Jordan Wisdom, - 09/28/2024 10:15 AM EST Images from the original note were not included. Subjective Atiya Jha is a 84 y.o. female Chief Complaint Patient presents with Gynecologic Exam Pt presents for 4 month follow up with pessary. No problems with pessary or abnormal bleeding. History of Present Illness Current Outpatient Medications: [...] every 5 (five) minutes ifneeded for chest pain., Disp: , Rfl: nystatin (Mycostatin) ointment, Apply thin film BID prn irritation, Disp: 30 g, Rfl: 1 nystatin-triamcinolone (Mycolog II) ointment, Apply topically 2 (two) times a day, Disp: 15 g, Rfl:2 Omeprazole Magnesium (PRILOSEC PO), Take by mouth, [...] SURGICAL HISTORY 11/2020 right intrarticular hip injection OK BREAST REDUCTION 1999 TRIGGER FINGER RELEASE 03/02/2019 [...] 1 Obstetric Comments Pap 05/07/22- Neg Mammogram 07/11/24- Neg ([place]) Dexa 07/15/24- spine normal, L forearm osteoporosis ([place]) Colonoscopy 2019 (Dsg.nrs) Review of Systems All negative unless documented in treatment Objective Visit Vitals BP 102/80 Wt 149 lb LMP (LMP Unknown) BMI 24.79 kg/m OB Status Postmenopausal Smoking Status Never BSA 1.76 m No Known Allergies Physical Exam Constitutional: Appearance: Normal appearance. Genitourinary: Bladder and rectum normal. Right Labia: rash and skin changes (skin changes consistent with lichen sclerosus). Right Labia: No tenderness, lesions or Bartholin's cyst. Left Labia: skin changes (skin changes consistent with lichen sclerosus) and rash. Left Labia: No tenderness, lesions or Bartholin's cyst. Vulva exam comments: Irritation c/w lichen sclerosus. Vaginal granulation tissue (Mild posterior vaginal erythema [...] Urethral caruncle N36.2 4. Vaginal atrophy N95.2 5. Vulvar irritation N90.89 nystatin-triamcinolone (Mycolog II) ointment Patient presents for pessary maintenance. Currently has size 4 ring with support. Denies any discharge or bleeding. Admits to some odor. Continues using Estradiol vaginal cream as directed, does not need refill at this time. Denies any bowel or bladder issues. Small area of granulation tissue noted, treated with silver nitrate. Pessary removed, cleaned and reinserted. She admits to some vulvar irritation- on exam very erythematous and c/w lichen sclerosus. Will rx Mycolog 2 ointment to use twice daily externally as needed. She will return in 4 months. Entered by Nelsy Merino LPN acting as scribe for Dr. Jordan Wisdom. Signature: Nelsy Merino LPN The documentation recorded by the scribe accurately reflects the service(s) I personally performed and the decisions I made. Signature: Jordan Wisdom DO Assessment & Plan documented in this [facility]02-05-2025 History of Present illness Narrative* CECI Mcgarry - 09/07/2024 10:00 AM EST History: Pt here for ear cleaning. History is positive for excessive cerumen. Pt believes her right ear is more plugged than her left ear Otoscopic Exam: Right Ear: Cerumen impaction Left Ear: Partially occlusive cerumen Procedure: Cerumen removed from each ear canal under direct otoscopy using a curette without incident. TM intact post cleaning. Pt to return in 9 months. documented in this [facility]11-29-2024 Evaluation note* Diagnosis Onset Date Resolution Status Admit Date Aortic stenosis acute July 01, 2024 9:29am ASHD (arteriosclerotic heart disease) acute July 01 9:29am Chronic venous insufficiency of lower extremity acute July 01 9:29am Heart failure with improved ejection fraction (HFimpEF) acute [facility] 2023 9:29am [facility] 9:29am Lumbar spondylosis acute N[place]mb er 2023 9:29am Medicare annual wellness vis it, subsequent acute July 01 9:29am Primary hypertension acute [facility] 2023 9:29am Screening mammogram for [facility] cancer acute July 01 9:29am Abdominal pain acute July 032023 1:24pm Osteoporosis acute July 1:24pm Unsteady gait acute July 192023 1:24pm [facility] Work Phone: 1(170) 560-945411-25-2024 History of Present illness Narrative* Yoselin Weir, HUNG - 06/27/2024 10:45 AM EST Images from the original note were not included. Subjective Patient ID: Atiya Jha is a 84 y.o. female who presents for Nail care (Atiya Jha is a 84 y.o. female who presents for Nail care.). HPI HPI Onychomycosis/Toenail Fungus: presents today requesting [...] Context: hard to trim , hard to reach ; self-care is difficult and not practical; increasing risk exposure. Family members unable to provide effective care. Characteristics: elongated, discolored, thickened, pain , pressure, ingrowing; without bleeding or drainage. Relieved by: Palliative care measures provide effective transient symptom relief. Previous Treatment: palliative care measures as noted Status post marginal matricectomy bilateral great toes. Risk factors: medical comorbidities. Aspirin therapy. mobility, flexibility and dexterity restraints. toenail deformity. Shoe [...] every 5 (five) minutes ifneeded for chest pain., Disp: , Rfl: nystatin [...] 90 mg before bedtime., Disp: , Rfl: Allergies Patient has no known allergies. Past Surgical History Past Surgical History: Procedure Laterality Date AMB EPIDURAL STEROID INJECTION 12/2017 L4-L5 BELT ABDOMINOPLASTY 2001 CARDIAC CATHETERIZATION 2003 COLONOSCOPY 2009 nl /Grillis COLONOSCOPY 02/2020 few diverticula /Grillis CORONARY ANGIOPLASTY WITH STENT PLACEMENT CORONARY ANGIOPLASTY WITH STENT PLACEMENT 11/2023 HIP ARTHROPLASTY Left HIP ARTHROPLASTY Right IR STENT PLACEMENT 1999 Stent Placement- Circ LUMBAR EPIDURAL INJECTION 07/2019 Pain Management MOHS SURGERY 1998 OTHER SURGICAL HISTORY - Jerry OTHER SURGICAL HISTORY 11/2017 Right SI joint injectiin/Felter OTHER SURGICAL HISTORY 06/2018 Aortigram no hemodynamically significant stenosis OTHER SURGICAL HISTORY 07/2019 Bilateral ischeal bursa injection OTHER SURGICAL HISTORY 01/02/2020 Bursitis Injection OTHER SURGICAL HISTORY 05/2020 bilateral ischeal bursa injection/Aragon OTHER SURGICAL HISTORY 07/2020 right intrarticular hip injection/Aragon OTHER SURGICAL HISTORY 11/2020 right intrarticular hip injection OK BREAST REDUCTION 1999 TRIGGER FINGER RELEASE 03/02/2019 RT IF, MF, RF trigger release Dr Suazo TRIGGER FINGER RELEASE Left 06/10/2023 MFDr Suazo Family History Family History Problem Relation [...] degrees of toenail dystrophy, thickening, elongation, discoloration, subtotal detachment, periungual hyperkeratotic debris, without drainage. INTERDIGITAL MACERATION: Clean and dry. ULCER: no sign of ulceration [...] or corrected. Thank you for your understanding. Yoselin Weir DPM documented in this encounterWright Memorial [id number] Instructions* Patient Instructions* Yoselin Weir DPM - 06/27/2024 10:45 AM EST As noted documented in this encounterWright Memorial [id number] History of Present illness Narrative* Aidan Suazo, - 05/31/2024 9:00 AM EDT Images from the original note were not included. HISTORY OF PRESENT ILLNESS: Atiya Jha is an 84 y.o. @ female. Follow up RT ZOË Right hip: 3 years (06/05/21) s/p RT ZOË with abductor repair. She is having pain posterior hip and low back, She does not feel this is coming from her hip and is coming from her back. She notes a lump on sideof hip and is sore when laying on it. Pt is FWB with a cane, she uses this for long distances. She is taking TYL. Pt is very pleased with outcome Pt is having lumbar issues and is seeing Dr Perkins, she will be starting PT. MEDICATION: Current Outpatient Medications on File Prior [...] Take 25 mg by mouth at bedtime LORazepam (Ativan) 0.5 MG tablet Take 1 tablet (0.5 mg) by mouth See administration instructions for 1 dose 1 by mouth 1 hour prior to MRI 1 tablet 0 mirabegron ER (Myrbetriq) 25 MG 24 [...] Never PHYSICAL EXAM: Ortho Exam RIGHT HIP Ambulating with cane ROM 30 IR and 30 ER 4/5 abduction IMAGING: XR hip right 2 or 3 views Imaging Result: May 31, 2024 x-rays AP and lateral of the right hip demonstrate a Press-Fit hip replacement in good position alignment without signs of loosening or failure. Impression: Stable appearance of right total hip replacement Reinaldo Suazo D.O. ASSESSMENT: ICD-10-CM 1. Status post right hip replacement Z96.641 2. 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 Dr. Suazo obtained history and examined the patient, I am acting as scribe for Dr. Suazo/connor I did advise the patient that I am leaving my current practice to practice in another state but my colleagues are willing to see her if she has any problems or concerns or if she desires a referral to another orthopedic assistant we would be happy to make referral, she states she would like to continue her care here. Marcie Suazo D.O. documented in this encounterWright Memorial [id number] NoteNormal sinus rhythm with poor R wave progression anterior [id number] History of Present illness Narrative* Jamia Ndiaye MD - 05/30/2024 10:50 AM EDT Subjective Atiya Jha is a 84 y.o. female Chief Complaint Pre-op Clearance HPI Patient here for evaluation for preoperative risk assessment for spinal surgery. She is a former patient of Dr. Santillan. Reviewing the record indicate she had two-vessel coronary artery disease to the circumflex and LAD. She underwent PCI back in 2022 in January and then she presented with another event in November 2023 requiring reintervention on the LAD. Since then the patient seem to be doing well cardiac mcmullen she denies complaint of chest pain, palpitation, lightheadedness, dizziness or syncope however she admit to sedentary lifestyle due to her back. She is being evaluated for possible laminectomy. The patient had been stable cardiac mcmullen. Her last intervention was about 6 months ago. Assessment 1. Two-vessel coronary artery disease with previous PCI to the circumflex with repeat intervention to the LAD within a year from prior intervention last intervention was in November of this year 2. Mixed hyperlipidemia 3. Mild aortic stenosis 4. Previous documentation of mild LV systolic dysfunction on heart cath but recent echo showed normal LVEF 5. Hypertension 6. Patient request a preoperative risk assessment for back surgery/laminectomy 5. BMI 24 Plan 1. I discussed with the patient and her daughter operative risk cardiac mcmullen. Patient has an usual presentation with a repeat ischemic event less than 9 months out from her initial intervention of the LAD. With that in mind we discussed the optimal duration when it safe to hold antiplatelet therapyand I told the family it is typically between 6 months to a year however the longer she waits the less chances of ischemic event taking to consideration her repeat ischemic presentation in the past Ifelt more comfortable with delaying procedure for at least 9 to 10-month to minimize the risk of cardiac event. The above reviewed with the patient and her daughter at great length 2. Continue with aggressive approach risk factor modification 3. The patient is scheduled to see me back in October and will keep that appointment 4. No decision is made in regard to when the patient want to proceed with surgery she will think about it and will notify me Review of Systems All other systems reviewed and are negative. Vitals: 05/30/24 1100 BP: 170/90 BP Location: Left arm Patient Position: Sitting Pulse: 71 Weight: 65.5 kg (144 lb 6.4 oz) Height: 1.651 m (5' 5 ) Objective [...] with meals., Disp: 180 tablet, Rfl: 3 cholecalciferol (Vitamin D-3) 125 mcg (5000 UT) capsule, Take 1,000 Units by mouth once daily., Disp: , Rfl: docusate sodium (Colace) 50 mg capsule, Take 2 capsules (100 mg) by mouth 2 times a day as needed.,Disp: , Rfl: mirabegron (Myrbetriq) 25 mg tablet extended release 24 hr 24 hr tablet, Take 1 tablet (25 mg) by mouth once daily., Disp: , Rfl: nitroglycerin (Nitrostat) 0.4 mg SL tablet, Place 1 tablet (0.4 mg) under the tongue every 5 minutes if needed for chest pain., Disp: , Rfl: omeprazole (PriLOSEC) [address] capsule, Take 10 mg by mouth once daily., Disp: , Rfl: tamsulosin HCl (TAMSULOSIN ORAL), Take 70 mg by mouth every 7 days., Disp: , Rfl: telmisartan-hydrochlorothiazid (MIcarDIS HCT) 40-12.5 mg tablet, Take 1 tablet by mouth early in the morning.., Disp: , Rfl: ticagrelor (Brilinta) 90 mg tablet, Take 1 tablet (90 mg) by mouth 2 times a day., Disp: 180 tablet, Rfl: 3 Assessment/Plan 1. Pre-operative cardiovascular examination Follow Up In Cardiology ECG 12 Lead 2. ASCVD (arteriosclerotic cardiovascular disease) Follow Up In Cardiology 3. Two-vessel coronary artery disease 4. Mixed hyperlipidemia 5. Mild aortic stenosis 6. History of PTCA 7. Essential hypertension 8. Never smoked cigarettes 9. BMI 24.0-24.9, adult Scribe Attestation By signing my name below, Karen BaKamaljit ALLEN , Scribe attest that this documentation has been prepared under the direction and in the presence of MD Casi. Provider Attestation - Scribe documentation All medical record entries made by the Scribe were at my direction and personally dictated by me. Ihave reviewed the chart and agree that the record accurately reflects my personal performance of the history, physical exam, discussion and plan. documented in this encounterUniversity [facility]als [facility] Work Phone: [phone]) 571-441210-28-2024 Instructions* Patient Instructions* Karen Baker LPN - 05/30/2024 10:50 AM EDT Please bring all medicines, vitamins, and herbal supplements with you when you come to the office. Prescriptions will not be filled unless you are compliant with your follow up appointments or have a follow up appointment scheduled as per instruction of your physician. Refills should be requested at the time of your visit. Surgery not yet scheduled. Patient wants to think about the risks discussed today. Monitor blood pressure at home documented in this encounterUniversity Hospitals [facility] Center Work Phone: [phone]) 664-770410-24-2024 History of Present illness Narrative* Ramone Perkins MD - 05/26/2024 8:20 AM EDT [facility] [address] [facility] [address] CHART NOTE ? 05/26/2024 Patient: Atiya Jha 1940 [id number] Physician: Ramone Perkins MD Last encounter with Group Visit date not found REFERRING PHYSICIAN Ivan Barreto DO PCP IVAN BARRETO DO CHIEF COMPLAINT: Lumbar spine SUBJECTIVE: [...] ankle and foot. Her symptoms are worse atnighttime and present through out the day. She is able to walk less than a block with significant discomfort. The pain is relieved with sitting. It gets worse with laying down, standing, and walking.She denies any recent onset problems with bowel [...] motion within normal limits. Sacroiliac joints tender topalpation. IMAGING: I reviewed the x-ray report from [...] broad-based disc bulge asymmetric on the right L5- S1. This appearance is similar to the prior [...] the office today. We will see her backin 4-6 weeks to evaluate her progress at [...] of treatment with the patient and SHAY Rojas.My medical decision making and treatment plan are [...] that her right hip is satisfactory. It wasdeemed to be her lumbar spine. Therefore she has been referred to us for further treatment. She is currently using a cane for ambulation. She is not able to walk long distances. Denies any bowel or bl adder dysfunction. Sitting improves her pain. Pain usually [...] and spondylolisthesis. Atiya is significantly symptomatic and isrequesting surgical consideration. After going over her current symptoms as well as clinical findings and a review of available studies, we would recommend surgery in the form of L4-5 laminectomy andfusion when she is ready. Risks, benefits and alternatives of surgery were discussed the patient. Pe rioperative course was also described in detail. Complications of posterior spinal fusion surgery were also discussed with Atiya including infection, bleeding, paralysis, nerve damage, spinal fluid leak, visceral injury, need for additional surgery, anesthetic and medical complications. Other complications were also discussed including hardware p roblems, nonunion and adjacent segment disease requiring additional [...] from my family physician as well as assorter for possible surgery. She is 84 years old and she needs to be cleared before we schedule her for surgery. If Atiya has any further concerns or questions, we encouraged her to give us a call. This note was created with the assistance of a speech recognition program with the goal of generating a timely record of the patient encounter. Inadvertent computerized nutrition program instructor errors related to syntax, spelling, homophones, and/or inaudibility may be present. documented in this encounterJoint Township District [facility] Hospital [facility] [employer] [id number] Instructions* Patient Instructions* Ramone Perkins MD - 05/26/2024 8:20 AM [...] bones. This is called degenerative disc disease orDDD. Herniated disc - The disc that cushions the spine moves out of place and pushes on spinal nerves orspinal cord causing pain and loss of movement. [...] taking. Be sure to include all prescription, mnmc-fhs-rrpumnf, vitamins, and herbal supplements. Bring a list [...] help you breathe. You will have a tubein your bladder to drain urine. Your doctor may use a special cifuentes to keep your head in place during the surgery. You may have some hernandez near your judaism area from this cifuentes after the surgery. [...] This will get rid of any extra fluidor blood from around the cut site. The [...] coughing and deep breathing exercises will help keepyour lungs clear. Your doctor will give you drugs to help with pain. Take the pain pills or shots to help you to movebetter. Your physical therapy will start the same [...] bladder function Where can I learn more? [employer] https://orthoinfo.aaos.org/en/treatment/spinal-fusion KidsHealth http://kidshealth.org/en/parents/spinal-fusion.html Last Reviewed Date 2020-06-04 Consumer Information Use [...] that may apply to a specific patient. Itis not intended to be medical advice or [...] or approved for treating a specific patient. [employer]. and its affiliatesdisclaim any warranty or liability relating to this information or the use thereof. The use of thisinformation is governed by the Terms of Use, available at https://www.Koolanoo Grouper.com/en/know/hvdecyfy-gzwiobitzgmlx-myson Copyright Copyright 2022 Language[employer] and its affiliates and/or licensors. All rights [...] the curves of the spine to curve morethan normal. The lower back curve, or lordosis, [...] may have you raise one leg straight upto check if the muscles in the back [...] and flexible. Keep your back and belly musclesstrong and your hamstring muscles flexible. Warm up [...] a diet rich in calcium and vitamin Dto keep your bones strong. Keep a healthy weight so there is not extra stress on your joints. Helpful tips If you have back pain, do not ignore it. Go to the doctor. The earlier this problem is treated, thebetter the results. Try swimming and biking to stay in shape. These activities put less stress on your back. Where can I learn more? KidsHSureVisit https://ClicData.org/en/parents/spondylolisthesis.html?ref=search National Health Services https://www.nhs.uk/conditions/spondylolisthesis/ Last Reviewed Date 2019-10-17 Consumer Information Use [...] that may apply to a specific patient. Itis not intended to be medical advice or [...] or approved for treating a specific patient. [employer]. and its affiliatesdisclaim any warranty or liability relating to this information or the use thereof. The use of thisinformation is governed by the Terms of Use, available at https://www.Koolanoo Grouper.com/en/know/rlpotqlc-daldmjmitgrgc-nbxhw Copyright Copyright 2022 [employer]. and its affiliates and/or licensors. All rights [...] doctor may have you work with a link trainer maintenance worker, chiropractor or physical therapist to make a [...] stretch in your lower back and buttock area.Repeat with the other knee. If you have [...] 3 to 5 seconds. Try to do theexercises 2 to 3 times each day. Do [...] help stop muscle injuries. This often happen whenmuscles are tight or weak. Helpful tips Stay [...] your doctor. Where can I learn more? [employer] https://orthoinfo.org/en/recovery/wmfwi-mpwieyuujvhz-enuqvvt/spine-conditioning- program-pdf Last Reviewed Date 2020-10-18 Consumer Information Use [...] that may apply to a specific patient. Itis not intended to be medical advice or [...] or approved for treating a specific patient. Language123 and its affiliatesdisclaim any warranty or liability relating to this information or the use thereof. The use of thisinformation is governed by the Terms of Use, available at https://www.Affinnova.Elumen Solutions/en/know/pyfmoopa-tquokuxjkmrwa-vwvby Copyright Copyright 2022 [employer] and its affiliates and/or licensors. All rights [...] room and that's where you will see yourfamily again. We will have a drainage tube [...] bed and walking and taking care of activitiesof daily living (ADLs). They will also have [...] and after surgery. This is an example foreducational purposes only. Malalignment of L5 and S1 Vertebrae Postoperative X-rays documented in this encounterCorey HospitalThe Training Room (TTR) [facility] HospitalFbnyrh23-07-2249 History of Present illness Narrative* Jordan Wisdom, - 05/25/2024 10:15 AM EDT Images from the original note [...] every 5 (five) minutes ifneeded for chest pain., Disp: , Rfl: nystatin [...] SURGICAL HISTORY 11/2020 right intrarticular hip injection OK BREAST REDUCTION 1999 TRIGGER FINGER RELEASE 03/02/2019 [...] 05/21/22- Neg Dexa 05/21/22- osteoporosis Colonoscopy 2019 (illis) Review of Systems All negative unless documented [...] LPN acting as scribe for Dr. Jordan Wisdom. Signature: eNlsy Merino LPN The documentation recorded by the scribe accurately reflects the service(s) I personally performed and the decisions I made. Signature: Jordan Wisdom DO Assessment & Plan documented in this encounterWright Memorial HospitalKpxjvtuwvo54-89-5505 Telephone encounter Note* Telephone Encounter - Devin Birmingham NP - 05/17/2024 8:42 AM EDT PDMP reviewed. Rx sent to pharmacy. [facility] [id number] Miscellaneous Notes* Telephone Encounter - Devin Birmingham NP - 05/17/2024 8:42 AM EDT PDMP reviewed. Rx sent to pharmacy. * Telephone Encounter - Jamaica Zamora RN - 05/17/2024 8:18 AM EDT Pt having MRI today and is concerned about staying still in the machine due to pain. Can she have some meds to relax her please. [facility]. MRI is at 10:30 documented in this [facility]10-15-2024 Telephone encounter Note* Telephone Encounter - Jamaica Zamora RN - 05/17/2024 8:18 AM EDT Pt having MRI today and is concerned about staying still in the machine due to pain. Can she have some meds to relax her please. [facility]. MRI is at 10:30 [facility] HospitalHiqjcuwyry27-36-4510 History of Present illness Narrative* Aidan Suazo, DO - 05/10/2024 1:15 PM EDTAssociated Order(s): Trigger Point Injection (CPT 76870 or 87063): right gluteus willian Post-Procedure Diagnose(s): Trigger point Images from the original note were not included. HISTORY OF PRESENT ILLNESS: Atiya Jha is an 84 y.o. @ female. Chief complaint lumbar pain Lumbar: 12 days s/p RT SI trigger injx 04/29 (Devin) and RT SI injection 05/06/[address] [...] injection 10/07/23, XR [facility] lumbar 10/07/23, [facility] pain clinic, RT hip bursa inj 03/01/24, RT SI trigger injx 04/29/24 RT hip: Pt had RT ZOË 06/05/21 I reviewed notes from the [facility] Anson Jama MD dated June 06 2021. At that timethe patient was seen status post Rt shoulder irrigation debridement with lysis of adhesions removalheterotopic ossification and revision of reverse shoulder arthroplasty [...] IMAGING: October 07, 2023 x-rays from the [facility] office AP and lateral and lateral flexion- extension views of the lumbar spine demonstrate scoliosis apex to the right at L2. There is a grade 2 slip of L4 on L5 ofapproximately 8.3 mm without instability when comparing flexion and extension images. There are no fractures. There is sclerosis and narrowing of the facet joints and disc space narrowing throughout. Impression: Lumbar facet arthritis with scoliosis and a grade 2 spondylolisthesis of L4 on L5 stable Reinaldo Montoya.Roc. ASSESSMENT: ICD-10-CM 1. Chronic low back pain with right-sided sciatica, unspecified back pain laterality M54.41 G89.29 2. Lumbar spine pain M54.50 MR lumbar spine wo contrast 3. Trigger point M79.10 Trigger Point Injection (CPT 43945 or 64277): right gluteus willian RT SI Trigger Point Injection (CPT 89869 or 83922): right gluteus willian on 05/10/2024 1:50 PM [...] answered all of the patient's questions. I recommenda MRI of the lumbar spine, follow up after MRI. Dr. Suazo obtained history and examined the patient, I am acting as scribe for Dr. Suazo/connor Suazo D.O. documented in this encounterWright Memorial HospitalCgrsxpqpnq91-60-5035 Miscellaneous Notes* Telephone Encounter - Devin Birmingham NP - 05/02/2024 10:43 AM EDT Usually have to wait every 3-4 months to repeat injection * Telephone Encounter - Devin Birmingham NP - 05/02/2024 10:42 AM EDT We gave her 40mg of depo medrol for a right SI trigger point injection. The injection can take up to 2 weeks to start working but if she wants to get started on seeing pain management that is fine. * Telephone Encounter - Jody Lowry - 05/02/2024 10:36 AM EDT Atiya called and left vm , she stated she saw you on Thursday in [facility] office and was given an injection, which did absolutely nothing and she needs to know what you gave her, and how long until she can get another one? She is going to make arrangements to get into the pain clinic. Her call back [phone] documented in this encounterWright Memorial HospitalMmkujsramy00-77-1892 Telephone encounter Note* Telephone Encounter - Devin Birmingham NP - 05/02/2024 10:43 AM EDT Usually have to wait every 3-4 months to repeat injection [facility] HospitalGpdqybkxxk93-54-8087 Telephone encounter Note* Telephone Encounter - Devin Birmingham NP - 05/02/2024 10:42 AM EDT We gave her 40mg of depo medrol for a right SI trigger point injection. The injection can take up to 2 weeks to start working but if she wants to get started on seeing pain management that is fine. [facility] HospitalEyhzxbvibr77-88-6181 Telephone encounter Note* Telephone Encounter - Jody Lowry - 05/02/2024 10:36 AM EDT Atiya called and left vm , she stated she saw you on Thursday in [facility] office and was given an injection, which did absolutely nothing and she needs to know what you gave her, and how long until she can get another one? She is going to make arrangements to get into the pain clinic. Her call back [phone] [facility] HospitalNrpffstvil31-32-9018 History of Present illness Narrative* Devin Birmingham NP - 04/29/2024 8:15 AM EDTAssociated Order(s): Trigger Point Injection (CPT 90956 or 85960): right gluteus willian Post-Procedure Diagnose(s): DDD (degenerative disc disease), lumbar; Trigger point Images from the original note were not included. Chief Complaint Patient presents with Lower Back - Pain HISTORY OF PRESENT ILLNESS: Atiya Jha is an 83 y.o. @ female. Lumbar/RT leg pain: Last tx by Dr Suazo 03/01/24 with RT hip bursa inj, states she had 100% improvement with inj until 3 days ago no new injury. *wants inj RT hip: Pt had RT ZOË 06/05/21, last XR 05/26/23 Constant pain in RT buttock x past 3 days. Notes she has been taking care of her and lifting a lot lately. Admits constant N/T down her RT leg since the past 3 days. Admits waking at HS. Walking with cane when she is out of the house. Tenderness in RT buttock. Painful to lay on LT side, states it feels better to put pressure on RT side. When she leans over to put socks on it feels like hip is going out of place. She notes a firm lump lateral since ZOË 2020. Trouble standing long periods. Taking TYL, no NSAIDS while on Brilinta blood thinner. Using salon pas patch, w/o relief. TX: Topicals, TYL, salon pas patches, CBD cream, XR RT hip 05/26/23, depo medrol RT SI trigger point injection 10/07/23, XR [facility] lumbar 10/07/23, [facility] pain clinic, RT hip bursa inj 03/01/24 ALLERGIES: No Known Allergies HOME MEDICATIONS: Current Outpatient Medications Medication Instructions alendronate (FOSAMAX) 70 mg, Oral, Every 7 days, Take in the morning with a full glass of water, nadrew empty stomach, and do not take anything else by mouth or lie down for the next 30 min. aspirin 81 mg, Oral, Daily atorvastatin (LIPITOR) 80 mg, Oral, Daily Calcium Carbonate-Vitamin D (Oyster Shell Calcium/D) 500-5 MG-MCG tablet 1 tablet, Oral, Daily RT carvedilol (Coreg) 6.25 MG tablet Oral, 2 times daily with meals cholecalciferol (VITAMIN D-3) 1,000 Units, Oral, Daily docusate sodium (COLACE) 50 mg, Oral, 2 times daily estradiol (Estrace) 0.1 MG/GM vaginal cream 1 gram at bedtime for 2 weeks then twice weekly hydroCHLOROthiazide (HYDRODIURIL) 25 mg, Oral, Every 48 hours hydrOXYzine HCl (ATARAX) 25 mg, Oral, Nightly mirabegron ER (MYRBETRIQ) 25 mg, Oral, Nightly, Do not crush, chew, or split. nitroglycerin (Nitrodur) 0.1 MG/HR patch 1 patch, Transdermal, Daily nitroglycerin (NITROSTAT) 0.4 mg, Sublingual, Every 5 min PRN nystatin (Mycostatin) ointment Apply thin film BID prn irritation Omeprazole Magnesium (PRILOSEC PO) Oral telmisartan (MICARDIS) 20 mg, Oral, Daily telmisartan-hydroCHLOROthiazide (MIcarDIS HCT) 40-12.5 MG tablet 1 tablet, Oral, Daily ticagrelor (BRILINTA) 90 mg, Oral, 2 times daily PHYSICAL EXAM: Back Exam Tenderness The patient is experiencing tenderness in the sacroiliac and lumbar. Tests Straight leg raise right: positive Other Back sensation: radicular pain. Gait: antalgic Vitals: There is no height or weight on file to calculate BMI. IMAGING: ASSESSMENT: No diagnosis found. Trigger Point Injection (CPT 28119 or 93274): right gluteus willian on 04/29/2024 4:11 PM Indications: pain Details: 22 G needle Medications: 40 mg methylPREDNISolone acetate 40 MG/ML Site cleaned with isopropyl alcohol. Procedure, treatment alternatives, risks and benefits explained, specific risks discussed. Consent was given by the patient. PLAN: I reviewed xray findings with the patient and discussed treatment options, answered questions. I discussed with the patient the option of an SI trigger point injection. I advised the patient of risksassociated with an injection including a reaction to medication, infection, failure to improve and possible worsening. The patient demonstrated understanding. Patient requesting injection. Skin Cleansed with alcohol swab. Utilizing aseptic technique patient given 40mg Depomedrol was injected in to right SI trigger point. Patient tolerated this well. Neurovasc intact s/p injection. Post injection care instructions discussed. Follow up as needed. Questions answered in laymen terms at the bedside. The diagnosis, home exercise plan and any ongoing restrictions/ recommendations reviewed. If unable to be reached in office, I recommend evaluation at nearest Emergency Room if any symptoms worsened or new symptoms develop for requiring urgent evaluation. Devin Birmingham MILLER SUPERVISOR-CEMETERY VAULT INSTALLER documented in this encounterWright Memorial HospitalFiywcwffsv10-08-1228 History of Present illness Narrative* Yoselin Weir, RODOLFO - 03/28/2024 10:45 AM EDT Images from the original note were not included. Subjective Patient ID: Atiya Jha is a 83 y.o. female who presents for Nail care ( Atiya Jha clari 83 y.o. female who presents for nail care.). HPI HPI Onychomycosis/Toenail Fungus: presents today requesting [...] Context: hard to trim , hard to reach ; self-care is difficult and not practical; increasing risk exposure. Family members unable to provide effective care. Characteristics: elongated, discolored, thickened, pain , pressure, ingrowing; without bleeding or drainage. Relieved by: Palliative care measures provide effective transient symptom relief. Previous Treatment: palliative care measures as noted Status post marginal matricectomy bilateral great toes. Risk factors: medical comorbidities. Aspirin therapy. mobility, flexibility and dexterity restraints. toenail deformity. Shoe [...] then twice weekly, Disp:42 g, Rfl: 3 hydrOXYzine HCl (Atarax) 25 MG tablet, Take 25 mg by mouth at bedtime, Disp: , Rfl: mirabegron ER (Myrbetriq) 25 [...] every 5 (five) minutes ifneeded for chest pain., Disp: , Rfl: nystatin [...] 90 mg before bedtime., Disp: , Rfl: Allergies Patient has no known allergies. Past Surgical History Past Surgical History: Procedure Laterality Date AMB EPIDURAL STEROID INJECTION 12/2017 L4-L5 BELT ABDOMINOPLASTY 2002 CARDIAC CATHETERIZATION 2004 COLONOSCOPY 2010 nl /Grillis COLONOSCOPY 02/2020 few diverticula /Grillis [...] SURGICAL HISTORY 11/2020 right intrarticular hip injection OK BREAST REDUCTION 1999 TRIGGER FINGER RELEASE 03/02/2019 [...] degrees of toenail dystrophy, thickening, elongation, discoloration, subtotal detachment, periungual hyperkeratotic debris, without drainage. INTERDIGITAL MACERATION: Clean and dry. ULCER: no sign of ulceration [...] or corrected. Thank you for your understanding. Yoselin Weir DPM documented in this [facility]08-26-2024 Instructions* Patient Instructions* Yoselin Weir DPM - 03/28/2024 10:45 AM EDT As noted documented in this [facility]07-30-2024 Hospital Discharge instructions Patient Education 03/01/2024 14:40:48 Pelvic Organ Prolapse Pelvic Organ Prolapse Pelvic organ prolapse is a condition in women that involves the stretching, bulging, or dropping ofpelvic organs into an abnormal position, past the [...] sitting, and standing up. Your health care providerwill determine if other tests are required, such [...] your health care provider. General instructions Take aivg-fqn-agwbeax and prescription medicines only as told by [...] provider. Document Revised: 01/14/2021 Document Reviewed: 01/14/2021 [employer] Patient Education 2022 [employer]. Follow Up Care 02/29/2024 10:23:19 With:SYL SAMS, Jerson Santiago, URL Address: [facility] [address], [place] [address]- When: Unknown [facility] [place] 07-30-2024 NotePatient Education Obstetrics and Gynecology Pelvic Organ Prolapse Pelvic organ prolapse is a condition in women that involves the stretching, bulging, or dropping ofpelvic organs into an abnormal position, past the [...] sitting, and standing up. Your health care providerwill determine if other tests are required, such [...] Limit your activities as directed by your healthcare provider. ? Do Kegel exercises as directed [...] told by your health care provider. Continue todo this exercise for at least 4?6 weeks, or for as long as told by your health care provider. General instructions ? Take hinz-lps-ayzbpgp and prescription medicines only as told by [...] stretching, bulging, or dropp (more content not included)...[facility]07-08-2024 Hospital Discharge instructions Patient Education 02/08/2024 11:50:06 Pelvic Organ Prolapse Pelvic Organ Prolapse Pelvic organ prolapse is a condition in women that involves the stretching, bulging, or dropping ofpelvic organs into an abnormal position, past the [...] sitting, and standing up. Your health care providerwill determine if other tests are required, such [...] your health care provider. General instructions Take csid-uep-kdmmqzf and prescription medicines only as told by [...] provider. Document Revised: 01/14/2021 Document Reviewed: 01/14/2021 [employer] Patient Education 2022 [employer]. Follow Up Care 01/29/2024 09:47:30 With:SYL SAMS, Jerson Santiago, URL Address: [address] [place], [place] [id number]- When: Unknown Comments:our scheduler maintenance will be calling you to schedule cysto [facility] 07-08-2024 NotePatient Education Obstetrics and Gynecology Pelvic Organ Prolapse Pelvic organ prolapse is a condition in women that involves the stretching, bulging, or dropping ofpelvic organs into an abnormal position, past the [...] sitting, and standing up. Your health care providerwill determine if other tests are required, such [...] Limit your activities as directed by your healthcare provider. ? Do Kegel exercises as directed [...] told by your health care provider. Continue todo this exercise for at least 4?6 weeks, or for as long as told by your health care provider. General instructions ? Take elsc-fhy-lvthics and prescription medicines only as told by [...] stretching, bulging, or dropp (more content not included)...[facility]06-11-2024 History of Present illness Narrative* Pineda Santillan MD - 01/12/2024 9:40 AM EDT Subjective Atiya Jha is a 83 y.o. female Chief Complaint Follow-up HPI Patient returns in follow-up of problems as noted. In the interim she is done well. Prior to her the diagnosis of coronary disease and subsequent PCI she states she did not feel right . After intervention she states that that feeling went away. Interestingly she denied chest discomfort of any sortand also denied dyspnea. Simply put, she could only call it not feeling right is her primary symptom. She was educated that recurrence of such symptomatology could represent progression of coronaryatherosclerosis Other matters were reviewed. Treatment of blood [...] Scribe Attestation By signing my name below, Payton BaKamaljit ALLEN, Nathanielibe attest that this documentation has been prepared under the direction and in the presence of Nilam Santillan MD. Provider Attestation - Scribe documentation All medical record entries made by the Scribe were at my direction and personally dictated by me. Ihave reviewed the chart and agree that the record accurately reflects my personal performance of the history, physical exam, discussion and plan. documented in this encounterUniversity [facility]als [facility] Work Phone: 1(125) 484-562606-11-2024 Instructions* Patient Instructions* Radha Benavidez LPN - 01/12/2024 9:40 AM [...] time of your visit. documented in this encounterUniversity Hospitals [facility] Center Work Phone: 1(937) 292-561804-29-2024 Evaluation + Plan note* Assessment & Plan Note - Sulma Busby APRN-CEMETERY VAULT INSTALLER - 11/30/2023 12:19 PM EDTAssociated Problem(s): Dysuria Dysuria and frequency [facility] Work Phone: 1(765) 775-705704-29-2024 Evaluation + Plan note* Assessment & Plan Note - ABDULLAHI Kaur - 11/30/2023 12:19 PM EDTAssociated Problem(s): Weakness Patient has noted progressive worsening [...] orthopnea or PND. No dyspnea on exertion. [facility] Work Phone: 1(672) 296-520804-29-2024 Miscellaneous Notes* Assessment & Plan Note - ABDULLAHI Kaur - 11/30/2023 12:19 PM EDTAssociated Problem(s): Dysuria Dysuria and frequency * Assessment & Plan Note - ABDULLAHI Kaur - 11/30/2023 12:19 PM EDT Associated Problem(s): Weakness Patient has noted progressive [...] orthopnea or PND. No dyspnea on exertion. * Assessment & Plan Note - ABDULLAHI Kaur - 11/30/2023 12:17 PM EDT Associated Problem(s): Congestive heart failure, NYHA class 2 and ACC/AHA stage C (Multi) IC HF borderline EF 40% November 2023 cath (January 2023 TTE EF 40-45%) FC III weakness and fatigue GDMT Coreg Micardis * Assessment & Plan Note - ABDULLAHI Kaur - 11/30/2023 12:16 PM EDT Associated Problem(s): ASCVD (arteriosclerotic cardiovascular disease) November 18, 2023 cardiac cath following abnormal outpatient perfusion study Ostial/proximal LAD PCI/Ananda 2.5 x 15 mm Proximal circumflex with patent stent RCA 25% She then had diffuse disease of small vessels including OM and PDA. LVEF 40% She was initiated on Nitropatch 0.2 mg/h documented in this encounterUniversity Hospitals [facility] Center Work Phone: 1(242) 703-188204-29-2024 Evaluation + Plan note* Assessment & Plan Note - ABDULLAHI Kaur - 11/30/2023 12:17 PM EDTAssociated Problem(s): Congestive heart failure, NYHA class 2 and ACC/AHA stage C (Multi) IC HF borderline EF 40% November 2023 cath (January 2023 TTE EF 40-45%) FC III weakness and fatigue GDMT Coreg Micardis [facility] Work Phone: 1(365) 453-750604-29-2024 Evaluation + Plan note* Assessment & Plan Note - ABDULALHI Kaur - 11/30/2023 12:16 PM EDTAssociated Problem(s): ASCVD (arteriosclerotic cardiovascular disease) November 18, 2023 cardiac cath following abnormal outpatient perfusion study Ostial/proximal LAD PCI/Ananda 2.5 x 15 mm Proximal circumflex with patent stent RCA 25% She then had diffuse disease of small vessels including OM and PDA. LVEF 40% She was initiated on Nitropatch 0.2 mg/h [facility] Work Phone: 1(270) 991-496104-29-2024 History of Present illness Narrative* ABDULLAHI Kaur - 11/30/2023 10:00 AM EDT Chief Complaint I am just getting so tired Reason for Visit Add-on Patient presents to the office today for outpatient follow-up for progressive worsening weakness, fatigability. Last evaluated in clinic by Dr. Mariano June 2023. In October 2023 had called into the office with concerns of weakness and anginal symptoms. Subsequentperfusion study was abnormal and on November 18, 2023 had cardiac catheterization and subsequent coronary intervention. She had a mild right hematoma postprocedure. She then called into the office last week with concerns about significant fatigability. I had ordered Chem-6 and CBC, she reports having done at [place] and will need to request records. Presents [...] blood pressure 82/50 and 102/56. She denies anypostural complaints. Question if she is having symptomatic [...] morning with a full glass of water, andrew empty stomach, and do not take anything [...] Ostial/proximal LAD PCI/Ananda 2.5 x 15 mm Proximal circumflex with [...] making process incorporating patients unique circumstances, the followingtreatment plan will be initiated: 1. Prescription drug management of cardiovascular medication for efficacy, adherence to treatment, side effect assessment and polypharmacy. Current treatment clinically warranted and to continue withfollowing modifications: - Hold micardis 2. UA (dysuria, weakness) 3. Call me next week to update on how feeling. Hopefully will start cardiac rehab at that time (TB) and start something else for weak heart muscle. 4. Return for follow-up; in the interim, contact the office if new symptoms arise. Dr. Santillan as scheduled Sulma Busby MSN, MILLER SUPERVISOR-CEMETERY VAULT INSTALLER, PMHNP-[facility] Please excuse any errors in grammar or translation related to this dictation. Voice recognition software was utilized to prepare this document. documented in this [facility] Work Phone: 1(628) 854-430404-29-2024 Instructions* Patient Instructions* ABDULLAHI Kaur - 11/30/2023 10:00 AM EDT [...] making process incorporating patients unique circumstances, the followingtreatment plan will be initiated: 1. Prescription drug management of cardiovascular medication for efficacy, adherence to treatment, side effect assessment and polypharmacy. Current treatment clinically warranted and to continue withfollowing modifications: - Hold micardis 2. UA (dysuria, weakness) 3. Call me next week to update on how feeling. Hopefully will start cardiac rehab at that time (TB) and start something else for weak heart muscle. 4. Return for follow-up; in the interim, contact the office if new symptoms arise. Dr. Santillan as scheduled documented in this [facility] Work Phone: [phone]) 992-817304-18-2024 Progress note Author Allan Townsend [facility] November 19, 2023 5:00pm Note Date/Time November 19, 2023 11: 14am [facility] [address] [place] [address] Cardiology Progress Note Signed Patient: Atiya Jha MR#: [id number] : 1940 Acct:[id number] Age/Sex: 83 / F Adm Date: 4 Loc: Room: 7M2463-1 Type: REG [facility] Attending Dr: Allan Townsend DO Copies to: [...] potential need for ongoing long-acting nitrates and long-term antiplatelet therapy No acute events overnight. Patient [...] Code(s): I25.10 - Atherosclerotic heart disease of [place] coronary artery without angina pectoris (2) Hypertension: Code(s): I10 - Essential (primary) hypertension (3) Coronary artery disease: Code(s): I25.10 - Atherosclerotic heart disease of [place] coronary artery without angina pectoris (4) Unstable [...] <Electronically signed by Allan Townsend DO> 11/19/23 4177 [facility] Work Phone: [phone] 870-693904-17-2024 [facility] Discharge summary Author Allan Townsend [facility] November 18, 2023 3:36pm Note Date/Time November 18, 2023 3:3 5pm [facility] [address] [place] [address] Discharge Summary Signed Patient: Atiya Jha MR#: [id number] : 1940 Acct:[id number] Age/Sex: 83 / F Adm Date: 4 Loc: Room: Attending Dr: Allan Townsend DO Copies to: DO Allan Dean DO~ Providers Date of Discharge: 11/18/23 Discharging Provider: Allan Townsend Primary Care Provider: Ivan Barreto Discharge Diagnosis (1) ASHD (arteriosclerotic heart disease): (2) Hypertension: (3) Coronary artery disease: (4) Unstable angina: (5) Abnormal cardiovascular stress test: Final Diagnosis Final Discharge Diagnosis: 1. Widely patent circumflex stent 2. Ruptured plaque/subtotal lesion proximal LAD (culprit vessel) 3. Moderate left ventricular dysfunction 4. Urgent ad hoc PCI proximal LAD with 2.5 x 15 mm Ananda Summary Hospital Course Hospital course: 83-year-old female referred for elective left heart catheterization due to progressive angina, subsequent abnormal stress imaging with anterolateral and apical ischemia; with a history of prior CA with proximal circumflex subacute stent thrombosis within [...] proximal LAD with 2.5 x 15 mm [place] She will continue with current therapies including [...] Closure Device Placement 0 - W Ziyad Townsend, DO p CL LHC & COR Angio - W Ziyad Townsend DO p CL Stent 1st Vessel LAD OLE - W Ziyad Townsend, Complications Complications: None Discharge Plan Discharge Plan [...] Metal Stent (BMS) duration ] [Drug-Eluting Stent (OLE) duration] DO NOT discontinue Brilinta/Aspirin during the first few months regardless of what you are advised by your family doctor or pharmacist, without first calling the assorter who implanted the stent. If you require [...] weight lifting, stair steppers, etc. until the assorter approves these activities. Check with the assorter on your first follow-up visit. CALL YOUR ELECTROPLATER AUTOMATIC: -If bleeding should occur from the catheter insertion site- apply pressure to the site then immediately call us. -Report any fever, redness, drainage, increased swelling, or firmness at the catheter insertion site. Some bruising or slight swelling may be present at thetime of discharge. -Should arm or leg become cold, numb, white, or blue, contact the assorter immediately. -IF you should experience episodes of [...] if you have recurrent angina. The attending assorter or a nurse clinician should provide you with specificinstructions regarding activity, diet, medications, and further follow up for you. Follow the medication instructions provided on your discharge. If the dosages and instructions on this sheet differ from the dosage and instructions on the bottle, follow the instructions on the bottle. [facility] is not responsible for incorrect prescription information [...] PO Q6HR PRN (Reason: pain) Follow Up: Pineda Santillan MD [Active Staff] - Ivan Barreto DO [Primary Care Provider] - Exam [...] signed by Allan Townsend DO> 11/18/23 1536 [facility] Work Phone: 1(625) 297-777704-17-2024 [facility] noteOur [facility] Evaluation note* Encounter Date Diagnosis Assessment Notes [...] exercises Aug, Primary hypertension (ICD-10 - I10) [employer] Other 01-12-2024 History general Narrative - Reported* [...] 06/2021 Hospitalization History See past surgical hx [employer] Other 01-05-2024 History general Narrative - Reported* [...] 06/2023 Hospitalization History See past surgical hx [employer] Other 12-01-2023 History general Narrative - Reported* [...] 06/2023 Hospitalization History See past surgical hx [employer] Other 11-30-2023 Evaluation note* Encounter Date Diagnosis [...] or drinking prior to bedtime. Weight loss. [employer] Other [id number] History of Present illness Narrative* Pineda Santillan MD - 06/15/2023 9:10 AM EST Subjective Atiya Jha is a 83 y.o. female Chief Complaint Annual Exam HPI Had STEMI in January Patient returns for follow-up of problems as noted. She is done well. In January she had an ST segmentelevation CA and had immediate transport from home to the [facility] where she underwent emergent intervention and had [...] prompted by classic symptomatology. documented in this encounterUniversity [facility]als [facility] Work Phone: 1(555) 382-975611-13-2023 Instructions* Patient Instructions* Kaiden Bonilla MA - [...] time of your visit. documented in this encounterUniversity Hospitals [facility] Work Phone: [phone]) 286-132411-08-2023 History general Narrative - Reported* Type Description [...] 023 Hospitalization History See past surgical hx [employer] Other 10-15-2023 Evaluation note* Encounter Date Diagnosis Assessment Notes Treatment Notes Treatment Clinical Notes May, Elevated cholesterol (ICD-10 - E78.00) [employer] Other 10-15-2023 History general Narrative - Reported* [...] 01/2023 Hospitalization History See past surgical hx [employer] Other 10-13-2023 History general Narrative - Reported* [...] 01/2023 Hospitalization History See past surgical hx [employer] Other 10-12-2023 Evaluation note* Encounter Date Diagnosis Assessment Notes Treatment Notes Treatment Clinical Notes May, Elevated cholesterol (ICD-10 - E78.00) [employer] Other 10-12-2023 History general Narrative - Reported* [...] 01/2023 Hospitalization History See past surgical hx [employer] Other 10-10-2023 History general Narrative - Reported* [...] 01/2023 Hospitalization History See past surgical hx [employer] Other 08-21-2023 Evaluation note* Encounter Date Diagnosis Assessment Notes Treatment Notes Treatment Clinical Notes Mar, Primary hypertension (ICD-10 - I10) [employer] Other 08-14-2023 Evaluation note* Encounter Date Diagnosis [...] possible culprits but instructed not to stop. [employer] Other 07-28-2023 Evaluation note* Encounter Date Diagnosis [...] bleeding If dizziness recurs, would check H/H [employer] Other 07-06-2023 Evaluation note* Encounter Date Diagnosis Assessment Notes Treatment Notes Treatment Clinical Notes Jan, ASHD (arteriosclerotic heart disease) (ICD-10 - I25.10) Echo: LVEF 40-45%, RVSP 45, - 01/2022 LHC: LVEF 35% - 01/2022 [employer] Other 06-27-2023 Evaluation note* Encounter Date Diagnosis [...] now. No obvious bleeding at this time. [employer] Other 06-27-2023 History general Narrative - Reported* [...] 01/2023 Hospitalization History See past surgical hx [employer] Other 06-20-2023 History general Narrative - Reported* [...] 01/2023 Hospitalization History See past surgical hx [employer] Other 06-16-2023 Discharge summary Author Allan Townsend [facility] January 16, 2023 12:09pm Note Date/Time January 16, 2023 12:0 6pm [facility] [address] [place] [address] Discharge Summary Signed Patient: Atiya Jha MR#: [id number] : 1940 Acct:[id number] Age/Sex: 82 / F Adm Date: 3 Loc: Room: [address] [place] [address]: Allan Townsend DO Copies to: DO Allan Dean DO~ Providers Date of Discharge: 01/16/23 Discharging Provider: Allan Townsend Primary Care Provider: Ivan Barreto Consults: 01/14/23 10:36 Consult to Pulmonology [...] p CL PCI AMI 1st Vessel CX OLE - Allan Townsend DO p CL PTCA [...] % (Auto) 54.3, Lymph % (Auto) 28.0, [place] % (Auto) 12.0, Eos % (Auto) 5.1, Baso % (Auto) 0.6, Nucleat RBC Rel Count 0.2, Neut # (Auto) 2.8, Lymph # (Auto) 1.4, [place] # (Auto) 0.6, Eos # (Auto) 0.3, [...] NAME: atorvastatin (Lipitor) 80 mg [Drug-Eluting Stent (OLE) duration] DO NOT discontinue Brilinta/Aspirin during the first few months regardless of what you are advised by your family doctor or pharmacist, without first calling the assorter who implanted the stent. If you require [...] weight lifting, stair steppers, etc. until the assorter approves these activities. Check with the assorter on your first follow-up visit. CALL YOUR PHYSICIAN at [phone]: -If bleeding should occur from the catheter insertion site- apply pressure to the site then immediately call us. -Report any fever, redness, drainage, increased swelling, or firmness at the catheter insertion site. Some bruising or slight swelling may be present at thetime of discharge. -Should arm or leg become cold, numb, white, or blue, contact the assorter immediately. -IF you should experience episodes of [...] is recommended. Please call Central Scheduling at [phone] to schedule your appointment.] The attending assorter or [facility] nurse clinician should provide you with specific instructions regarding activity, diet, medications, and further follow up for you. Follow the medication instructions provided on your discharge. If the dosages and instructions on this sheet differ from the dosage and instructions on the bottle, follow the instructions on the bottle. [facility] is not responsible for incorrect prescription information [...] signed by Allan Townsend DO> 01/16/23 1209 [facility] Work Phone: 1([phone]) 700-651206-15-2023 Progress note Author Allan Townsend [facility] January 15, 2023 3:40pm Note Date/Time January 15, 2023 3:40 pm [facility] [address] [place] [address] Cardiology Progress Note Signed Patient: Atiya Jha MR#: [id number] : 1940 Acct:[id number] Age/Sex: 82 / F Adm Date: 3 Loc: Room: [address] [place] [address] Type: ADM IN Attending Dr: Allan Townsend [...] stable she remains on appropriate GDMT post CA at this time. Plan: We will continue current therapies, increased ambulation, consider discharge in 24 to 48 hours Exam Physical Exam Vital Signs: Temp Pulse Resp BP Pulse Ox O2 Del Method O2 Flow Rate 98.4 F 78 22 121/59 L 95 Room Air 2 01/15/23 08:00 01/15/23 10:01/15/23 10:00 01/15/23 10:00 01/15/23 08:00 01/15/23 10:01/14/23 15:37 Const General: cooperative, healthy appearing, comfortable [...] MPV Neut % (Auto) Lymph % (Auto) [place] % (Auto) Eos % (Auto) Baso % (Auto) Nucleat RBC Rel Count Neut # (Auto) Lymph # (Auto) [place] # (Auto) Eos # (Auto) Baso # (Auto) PHA Creatinine Clear Sodium Potassium Chloride Carbon Dioxide Anion Gap BUN Creatinine Est GFR (CKD-EPI) Glucose POC Glucose 112 Calcium Troponin I High Sens 26684.8 H* 13947.6 H* 01/14/23 01/15/23 01/15/23 22:13 03:54 03:54 Corrected WBC 6.9 Uncorrected WBC Count 6.9 RBC 3.65 Hgb 11.6 L Hct 33.2 L MCV 91.0 MCH 31.8 MCHC 34.9 RDW 13.7 Plt Count 160 MPV 7.8 Neut % (Auto) 68.3 Lymph % (Auto) 19.7 [place] % (Auto) 8.9 Eos % (Auto) 2.7 Baso % (Auto) 0.4 Nucleat RBC Rel Count 0.1 Neut # (Auto) 4.7 Lymph # (Auto) 1.4 [place] # (Auto) 0.6 Eos # (Auto) 0.2 Baso # (Auto) 0.0 PHA Creatinine Clear 53.75 Sodium 137 Potassium 3.8 Chloride 105 Carbon Dioxide 24.1 Anion Gap 11.7 BUN 14 Creatinine 0.80 Est GFR (CKD-EPI) > 60.0 Glucose 97 POC Glucose Calcium 8.6 Troponin I High Sens 65719.5 H* 01/15/23 01/15/23 03:54 08:42 Corrected WBC Uncorrected WBC Count RBC Hgb Hct MCV MCH MCHC RDW Plt Count MPV Neut % (Auto) Lymph % (Auto) [place] % (Auto) Eos % (Auto) Baso % (Auto) Nucleat RBC Rel Count Neut # (Auto) Lymph # (Auto) [place] # (Auto) Eos # (Auto) Baso # (Auto) PHA Creatinine Clear Sodium Potassium Chloride Carbon Dioxide Anion Gap BUN Creatinine Est GFR (CKD-EPI) Glucose POC Glucose 108 Calcium Troponin I High Sens 14290.5 H* A&P - Cardiology (1) ST elevation [...] signed by Allan Townsend DO> 01/15/23 1540 [facility] Work Phone: 1(213) 693-839106-14-2023 [facility] History and physical note Author Allan Townsend [facility] January 14, 2023 10:41am Note Date/Time January 14, 2023 10:4 1am [facility] [address] [place] [address] Cardiology H&P Signed Patient: Atiya Jha MR#: [id number] : 1940 Acct:[id number] Age/Sex: 82 / F Adm Date: 3 Loc: CL Room: Type: [facility] Attending Dr: Allan Townsend DO Copies to: MD Allan Dorado DO~ Date of Service: 01/14/2023 Cardiology HPI History of Present Illness Chief complaint: Anterolateral STEMI HPI: Ms. Jha is a 82 year old female admitted through the emergency room in transfer from [facility] at 0905 with anterolateral STEMI. Symptoms began earlier this morning, patient was transported by squad, prearrival ECGs were reviewed by myself via telephonic communication and communication with ER attending. Patient arrived at [facility] at 0923, having received up stream antiplatelet and antithrombotic and nitrate therapy; underwent PCI of infarct vessel at 0937. The door to device time was 32 minutes. Past medical history is noted for ASHD with very [place] of the [place], hypertension, hyperlipidemia. Current primary care physician is Dr. Ivan Barreto. She has not received any cardiology follow-up for a number of years per her family's report. Patient arrives to the [facility] hypertensive, in sinus rhythm without arrhythmias, ongoing chest discomfort, no evidence of cardiogenic shock Cath and intervention ensued without complications Total 60 minutes of nonprocedural critical care time were devoted to the ER staff, [facility] staff, nursing staff, patient and family both [...] x10E3/uL Lymph # (Auto) 2.1 (1.00-4.8) x10E3/uL [place] # (Auto) 0.5 (0.0-0.8) x10E3/uL Eos # [...] Interpretations EKG EKG results cardiology: sinus rhythm CA, pacemaker, normal Myocardial infarction: anterior CA (acute or recent) and lateral CA (acute or recent) A&P - Cardiology (1) [...] signed by Allan Townsend DO> 01/14/23 1041 [facility] Work Phone: 1(900) 461-718406-14-2023 History and physical note Author Allan Townsend [facility] January 14, 2023 10:41am Note Date/Time January 14, 2023 10:4 1am [facility] [address] [place] [address] Cardiology H&P Signed Patient: Atiya Jha MR#: [id number] : 1940 Acct:[id number] Age/Sex: 82 / F Adm Date: 3 Loc: Room: Type: [facility] Attending Dr: Allan Townsend DO Copies to: MD Allan Dorado DO~ Date of Service: 01/14/2023 Cardiology HPI History of Present Illness Chief complaint: Anterolateral STEMI HPI: Ms. Jha is a 82 year old female admitted through the emergency room in transfer from [facility] at 0905 with anterolateral STEMI. Symptoms began earlier this morning, patient was transported by squad, prearrival ECGs were reviewed by myself via telephonic communication and communication with ER attending. Patient arrived at [facility] at 0923, having received up stream antiplatelet and antithrombotic and nitrate therapy; underwent PCI of infarct vessel at 0937. The door to device time was 32 minutes. Past medical history is noted for ASHD with very remote PCI of the [place], hypertension, hyperlipidemia. Current primary care physician is Dr. Ivan Barreto. She has not received any cardiology follow-up for a number of years per her family's report. Patient arrives to the [facility] hypertensive, in sinus rhythm without arrhythmias, ongoing chest discomfort, no evidence of cardiogenic shock Cath and intervention ensued without complications Total 60 minutes of nonprocedural critical care time were devoted to the ER staff, [facility] staff, nursing staff, patient and family both [...] x10E3/uL Lymph # (Auto) 2.1 (1.00-4.8) x10E3/uL [place] # (Auto) 0.5 (0.0-0.8) x10E3/uL Eos # [...] Interpretations EKG EKG results cardiology: sinus rhythm CA, pacemaker, normal Myocardial infarction: anterior CA (acute or recent) and lateral CA (acute or recent) A&P - Cardiology (1) [...] signed by Allan Townsend DO> 01/14/23 1041 [facility] Work Phone: [phone]) 599-101206-01-2023 Evaluation note* Encounter Date Diagnosis Assessment Notes Treatment Notes Treatment Clinical Notes Jan, Elevated cholesterol (ICD-10 - E78.00) [facility] Other 05-03-2023 Evaluation note* Encounter Date Diagnosis Assessment Notes Treatment Notes Treatment Clinical Notes December, Stage 3a chronic kidney disease (ICD-10 - N18.31) [employer] [facility] Other 02-15-2023 Evaluation note* Encounter Date Diagnosis [...] appetite, weight, abdominal pain/cramping or rectal bleeding. [employer] Other 02-14-2023 Evaluation note* Encounter Date Diagnosis Assessment Notes Treatment Notes Treatment Clinical Notes Sep, Elevated cholesterol (ICD-10 - E78.00) [employer] [facility] Other 02-25-2011 Nurse Note* 09/27/2010 12:00 PM [...] In Department: [facility] general Narrative - Reported* Type Description Date Medical History HTN Medical History Hypercholesterolemia Surgical History Heart Catheterization/Stents pl aced 11/1999 Surgical History Breast Reduction 1999 Surgical History Abdominoplasty 2001 Surgical History Trigger finger, left 2004 Surgical History Cataracts, bilateral 2010 Surgical History Left hip replacement 03/2011 Surgical History Eyelids lifted Hospitalization History See past surgical hx [facility] Other 04-01-2000 History general Narrative - Reported* [...] lifted Hospitalization History See past surgical hx [employer] [facility] Other 04-01-2000 History general Narrative - Reported* [...] 01/2023 Hospitalization History See past surgical hx [employer] Other 04-01-2000 History general Narrative - Reported* [...] 06/2023 Hospitalization History See past surgical hx [employer] Other Evaluation + Plan note No data available for this section [facility] Evaluation + Plan note Future Appointments Appointment Date:04/27/2024 10:30:00 AM Scheduled Provider:Jerson STREETER MD Location:[facility] [place] Appointment Type:URO Office Visit [facility] Evaluation noteNo InformationNort [employer] [facility] Other Evaluation note* Diagnosis Onset Date Resolution Status High cholesterol acute History of heart artery stent acute Hypertension acute ST elevation (STEMI) myocardial infarction acute [facility] Work Phone: Evaluation note* Diagnosis ASCVD (arteriosclerotic cardiovascular disease)- Primary Unspecified cardiovascular disease Essential hypertension Unspecified essential hypertension Mixed hyperlipidemia Congestive heart failure, NYHA class 2 and ACC/AHA stage C (CMS/HCC) History of PTCA Postsurgical percutaneous transluminal coronary angioplasty status documented in this encounter [facility] Work Phone: Evaluation note* Diagnosis Onset Date Resolution Status Anemia acute Fatigue acute Lumbar spondylosis acute Nausea acute Primary hypertension acute [facility] Work Phone: Evaluation note* Diagnosis ASCVD (arteriosclerotic cardiovascular disease) Unspecified cardiovascular disease Chest tightness Other chest pain Shortness of breath documented in this encounter [facility] Work Phone: Evaluation note* Diagnosis ASCVD (arteriosclerotic cardiovascular disease) Unspecified cardiovascular disease Chest tightness Other chest pain Shortness of breath documented in this encounter [facility] Work Phone: Evaluation note* Diagnosis Onset Date Resolution Status Anemia acute ASHD (arteriosclerotic heart disease) acute Fatigue acute Lumbar spondylosis acute Nausea acute Primary hypertension acute [facility] Work Phone: Evaluation note* Diagnosis Onset Date Resolution Status Anemia acute ASHD (arteriosclerotic heart disease) acute Lumbar spondylosis acute Primary hypertension acute ASHD (arteriosclerotic heart disease) acute Coronary artery disease acut e Hypertension acute Unstable angina acute [facility] Work Phone: Evaluation note* Diagnosis Dysuria- Primary Congestive heart failure, NYHA class 2 and ACC/AHA stage C (Multi) Weakness Other malaise and fatigue ASCVD (arteriosclerotic cardiovascular disease) Unspecified cardiovascular disease documented in this encounter [facility] Work Phone: Evaluation note* Diagnosis Onset Date Resolution Status Anemia acute ASHD (arteriosclerotic heart disease) acute Lumbar spondylosis acute Primary hypertension acute Abnormal cardiovascular stress test acute ASHD (arteriosclerotic heart disease) acute Coronary artery disease acut e Hypertension acute Unstable angina acute [facility] Work Phone: Evaluation note* Diagnosis Onset Date [...] acute Lumbar spondylosis acute Primary hypertension acute [facility] Work Phone: Evaluation note* Diagnosis Essential hypertension- Primary Unspecified essential hypertension ASCVD (arteriosclerotic cardiovascular disease) Unspecified cardiovascular disease Mixed hyperlipidemia History of PTCA Postsurgical percutaneous transluminal coronary angioplasty status Never smoked cigarettes documented in this encounter [facility] Work Phone: Evaluation note* Diagnosis Onset Date Resolution Status Abnormal cardiovascular stress test acute ASHD (arteriosclerotic heart disease) acute Coronary artery disease acut e Hypertension acute Unstable angina acute ASHD (arteriosclerotic heart disease) acute Chronic venous insufficiency of lower extremity acute Lumbar spondylosis acute Primary hypertension acute [facility] Work Phone: Evaluation note* Diagnosis Onset Date Resolution Status ASHD (arteriosclerotic heart disease) acute Chronic venous insufficiency of lower extremity acute Lumbar spondylosis acute Primary hypertension acute [facility] Work Phone: Evaluation note* Diagnosis Onset Date Resolution Status ASHD (arteriosclerotic heart disease) acute Chronic venous insufficiency of lower extremity acute Lumbar spondylosis acute Primary hypertension acute ASHD (arteriosclerotic heart disease) acute Chronic venous insufficiency of lower extremity acute Heart failure with improved ejection fraction (HFimpEF ) acute Lumbar spondylosis acute Primary hypertension acute [facility] Work Phone: Evaluation note* Diagnosis Onset Date Resolution Status ASHD (arteriosclerotic heart disease) acute Chronic venous insufficiency of lower extremity acute Heart failure with improved ejection fraction (HFimpEF ) acute Lumbar spondylosis acute Primary hypertension acute ASHD (arteriosclerotic heart disease) acute COVID acute [facility] Work Phone: Evaluation note* Diagnosis Chronic low back pain with right-sided sciatica, unspecified back pain laterality- Primary Lumbar spine pain Trigger point [facility] Diagnosis Chronic low back pain, unspecified back pain laterality, unspecified whether sciatica present [facility]* Diagnosis Pessary maintenance Fitting and adjustment of other device Cystocele with rectocele Urethral caruncle Vaginal atrophy Postmenopausal atrophic vaginitis 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 documented in this encounter [facility]* Diagnosis Spondylolisthesis of lumbar region- Primary Lumbar spine pain Spondylolisthesis of lumbar region [facility] Diagnosis Onset Date Resolution Status [...] of right hip acute Sterile pyuria acute [facility] Work Phone: Evaluation note* Diagnosis Dysuria- Primary Congestive heart failure, NYHA class 2 and ACC/AHA stage C Weakness Other malaise and fatigue ASCVD (arteriosclerotic cardiovascular disease) Unspecified cardiovascular disease Pre-operative cardiovascular examination- Primary ASCVD (arteriosclerotic cardiovascular disease) Unspecified cardiovascular disease Two-vessel coronary artery disease Mixed hyperlipidemia Mild aortic stenosis Aortic valve disorders History of PTCA Postsurgical percutaneous transluminal coronary angioplasty status Essential hypertension Unspecified essential hypertension Never smoked cigarettes BMI 24.0-24.9, adult documented in this encounter [facility] Work Phone: Evaluation note* Diagnosis 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 documented in this encounter [facility]* Diagnosis Dermatophytosis of nail- Primary Dystrophic nail Other specified disease of nail Pain around toenail, right foot Pain around toenail, left foot documented in this encounter [facility]* Diagnosis Dermatophytosis of nail- Primary Dystrophic nail Other specified disease of nail Pain around toenail, right foot Pain around toenail, left foot documented in this encounter [facility]* Diagnosis DDD (degenerative disc disease), lumbar- Primary Degeneration of lumbar or lumbosacral intervertebral disc Chronic low back pain with right-sided sciatica, unspecified back pain laterality Trigger point documented in this encounter [facility] note* Diagnosis Bilateral impacted cerumen- Primary Impacted cerumen documented in this encounter [facility] note* Diagnosis Pessary maintenance Fitting and adjustment of other device Cystocele with rectocele Urethral caruncle Vaginal atrophy Postmenopausal atrophic vaginitis Vulvar irritation documented in this encounter [facility] note* Diagnosis Dermatophytosis of nail- Primary Dystrophic nail Other specified disease of nail Pain around toenail, right foot Pain around toenail, left foot documented in this encounter [facility]Evaluation note* Diagnosis Onset Date Resolution Status Admit Date Aortic stenosis acute October 10:53am ASHD (arteriosclerotic heart disease) acute October 18, 2024 10:53am Heart failure with improved ejection fraction (HFimpEF) acute [facility] 2024 10:53am Lumbar spondylosis acute October 18, 2024 10:53am Osteoporosis acute October 18, 2024 10:53am Primary hypertension acute [facility] 2024 10:53am Screening mammogram for singh st cancer acute October 18, 2024 10:53am [facility] Work Phone: Evaluation note* Diagnosis Dysuria- Primary Congestive heart failure, NYHA class 2 and ACC/AHA stage C Weakness Other malaise and fatigue ASCVD (arteriosclerotic cardiovascular disease) Unspecified cardiovascular disease Two-vessel coronary artery disease- Primary ASCVD (arteriosclerotic cardiovascular disease) Unspecified cardiovascular disease Mixed hyperlipidemia Mild aortic stenosis Aortic valve disorders History of PTCA Postsurgical percutaneous transluminal coronary angioplasty status Essential hypertension Unspecified essential hypertension Congestive heart failure, NYHA class 2 and ACC/AHA stage C BMI 24.0-24.9, adult Never smoked cigarettes documented in this encounter [facility] Work Phone: Evaluation note* Diagnosis Dysuria- Primary Congestive heart failure, NYHA class 2 and ACC/AHA stage C Weakness Other malaise and fatigue ASCVD (arteriosclerotic cardiovascular disease) Unspecified cardiovascular disease NSTEMI (non-ST elevated myocardial infarction) (Multi)- Primary Acute myocardial infarction, subendocardial infarction, episode of care unspecified NSTEMI (non-ST elevated myocardial infarction) (Multi) Acute myocardial infarction, subendocardial infarction, episode of care unspecified Preop cardiovascular exam Pre-operative cardiovascular examination Encounter for follow-up examination after completed treatment for conditions other than malignant neoplasm Encounter for other preprocedural examination Acute coronary microvascular dysfunction (Multi) Angina pectoris, unspecified Essential hypertension Unspecified essential hypertension NSTEMI (non-ST elevated myocardial infarction) (Multi) Acute myocardial infarction, subendocardial infarction, episode of care unspecified documented in this encounter [facility] Work Phone: Evaluation note* Diagnosis Dysuria- Primary Congestive heart failure, NYHA class 2 and ACC/AHA stage C Weakness Other malaise and fatigue ASCVD (arteriosclerotic cardiovascular disease) Unspecified cardiovascular disease Two-vessel coronary artery disease- Primary Mixed hyperlipidemia Mild aortic stenosis Aortic valve disorders History of PTCA Postsurgical percutaneous transluminal coronary angioplasty status Essential hypertension Unspecified essential hypertension NSTEMI (non-ST elevated myocardial infarction) (Multi) Acute myocardial infarction, subendocardial infarction, episode of care unspecified Congestive heart failure, NYHA class 2 and ACC/AHA stage C BMI 25.0-25.9,adult Never smoked cigarettes documented in this encounter [facility] Work Phone: Evaluation note* Diagnosis Arthritis of right knee- Primary Acute pain of right knee [facility] Diagnosis Pessary maintenance Fitting and adjustment of other device Cystocele with rectocele Urethral caruncle Vaginal atrophy Postmenopausal atrophic vaginitis documented [facility]* Diagnosis Dysuria- Primary Congestive heart failure, NYHA class 2 and ACC/AHA stage C Weakness Other malaise and fatigue ASCVD (arteriosclerotic cardiovascular disease) Unspecified cardiovascular disease Orthostatic hypotension- Primary Essential hypertension Unspecified essential hypertension Palpitations Never smoked cigarettes BMI 24.0-24.9, adult Weakness Other malaise and fatigue documented in this encounter [facility] Work Phone: Evaluation note* Diagnosis Dermatophytosis of nail- Primary Dystrophic nail Other specified disease of nail Pain around toenail, right foot Pain around toenail, left foot [facility]* Diagnosis Dysuria- Primary Congestive heart failure, NYHA class 2 and ACC/AHA stage C Weakness Other malaise and fatigue ASCVD (arteriosclerotic cardiovascular disease) Unspecified cardiovascular disease Two-vessel coronary artery disease- Primary ASCVD (arteriosclerotic cardiovascular disease) Unspecified cardiovascular disease Essential hypertension Unspecified essential hypertension Mixed hyperlipidemia Mild aortic stenosis Aortic valve disorders BMI 24.0-24.9, adult Congestive heart failure, NYHA class 2 and ACC/AHA stage C documented in this encounter [facility] Work Phone: Evaluation note* Diagnosis Dermatophytosis of nail- Primary Dystrophic nail Other specified disease of nail Pain around toenail, right foot Pain around toenail, left foot documented [facility] Author Louis Oliveira [facility] Note Date/Time February 09, 2025 11:0 8pm [facility] [address] [place] [address] Hospitalist H&P Signed Patient: Atiya Jha MR#: [id number] : 1940 Acct:[id number] Age/Sex: 84 / F Adm Date: 5 Loc: Room: [address] [place] [address] Type: ADM IN[facility] Attending Dr: Louis Oliveira MD Copies to: DO Louis Dean MD~ HPI DATE OF EXAMINATION: 02/09/25 CHIEF COMPLAINT: Unsteadiness, weakness, nausea, vomiting HISTORY OF PRESENT ILLNESS: This is a 84 y.o female with past medical Hx of CAD with multiple PCI, HTN, bilateral hip osteoarthritis with hx of ZOË, dyslipidemia, and CKD, here for weakness and fatigue for few days duration. Hx obtained form the pt and her daughter at bedside. She is ambulatory and active at baseline, however around 4 days ago, she had a fall, she does not recall how she fell, and it was unwitnessed, but her daughter states that she might have lost her footing and left on her left side when she turned off the lights and moved from the hallway to the bed. She denies any dizziness or syncope or chest pain or diaphoresis or nausea or vomiting at the time. She came to our ED, and was found to have 12th rib fracture, and was sent on norco which she never picked up as it made her feel sick. Since then she was not feeling herself, reports weakness and fatigue until yesterday when she ddeveoped nausea and vomiting with left sided upper abdominal pain, no fever or chills. her daughter states that she looks completeley different than her baseline. When I saw her she was lying in bed tired and ill appearing. Also reports unsteadiness of her gait. In the ED, she was hypertensive with SBP in 200s, not in acute distress but ill appearing. Received 1 dose of diphenhydramine 25 mg IV once, 1 dose of morphine IV 4 mg, total of 8 mg of IV Zofran. Labs show Hyponatremia of 126, chloride of 91. BUN/Cr were normal, Trop of 15. CBC was not remarkable. CXR was negative for acute pathology. CT abdomen pelvis without contrast showed non-displaced left 12th rib fracture. Pt to be admitted for further workup and management. EKG showed NSR with no ischemic changes. HR of 76 bpm, QTc of 483 msec Review of Systems Review of Systems All other systems reviewed & are negative unless noted below or in HPI [facility] Medical History (Updated 02/09/25 @ 23:00 by Louis Oliveira MD) Contusion of left shoulder Chest pain Contusion of left chest wall Chest wall contusion Accidental fall Aortic stenosis Chronic HFrEF (heart failure with reduced ejection fraction) Ischemic cardiomyopathy PCI/stent - 11/1999, PCI/stent LCX, PTCA distal LAD - 01/2023, PCI/stent LAD - 11/2023, PCI/stent ostial and distal LAD - 12/2024 Low back pain Osteoporosis Unsteady gait Abdominal pain Anemia Screening mammogram for breast cancer Medicare annual wellness visit, subsequent Hypercholesterolemia Primary osteoarthritis of right hip Chronic venous insufficiency of lower extremity Heart failure with improved ejection fraction (HFimpEF) GERD (gastroesophageal reflux disease) Thyroid disease pt and daughter do not recall dx on 02/03/2025 Lumbar spondylosis uses pain clinic for pain control Stage 3a chronic kidney disease (CKD) pt and daughter due not recall dx 02/03/2025 ASHD (arteriosclerotic heart disease) Echo: LVEF 60%, RVSP 30-40, , MR, TR - 01/2024, PCI/stent - 11/1999, PCI/stent LCX, PTCA distal LAD - 01/2023, PCI/stent LAD - 11/2023, PCI/stent ostial and distal LAD - 12/2024 Abnormal weight loss Surgical History H/O total hip arthroplasty (~03/2011) left H/O total hip arthroplasty (~06/2021) right History of phacoemulsification of cataract of both eyes with intraocular lens implantation H/O bilateral cataract extraction History of surgery Trigger finger, left 2004 Trigger finger, right 06/2023 Eyelids lifted 2020 CTR right 06/2023 H/O abdominoplasty H/O bilateral breast reduction surgery History of cardiac catheterization (~11/2023) PCI/stent - 11/1999, PCI/stent LCX, PTCA distal LAD - 01/2023, PCI/stent LAD - 11/2023, PCI/stent ostial and distal LAD - 12/2024 Family History Sister Myocardial infarction Father Heart disease Myocardial infarction CHF (congestive heart failure) Hypertension Mother Social History Smoking Status: Never smoker Substance Use Type: None Substance Abuse Comment: socially Meds Medications and Allergies Allergies No Known Allergies Allergy (Verified 02/09/25 18:24) Home Medications aspirin 81 mg tablet,delayed release (Aspir-) 81 mg PO DAILY 11/02/17 [History Confirmed 02/09/25] alendronate 70 mg tablet 70 mg PO QWEEK 01/14/23 [History Confirmed 02/09/25] nitroglycerin 0.4 mg sublingual tablet 0.4 mg sublingual Q5M PRN Chest Pain #30 tabs 01/16/23 [Rx Confirmed 02/09/25] acetaminophen 500 mg tablet (Tylenol Extra Strength) 1,000 mg PO Q6HR PRN pain 11/16/23 [History Confirmed 02/09/25] calcium 500 mg (as carbonate)-vitamin D3 5 mcg (200 unit) tablet 1 tab PO DAILY 11/17/23 [History Confirmed 02/09/25] mirabegron 25 mg tablet,extended release 24 hr (Myrbetriq) 25 mg PO HS 03/02/24 [History Confirmed 02/09/25] clopidogrel 75 mg tablet 75 mg PO DAILY 90 days #90 tabs 10/26/24 [Rx Confirmed 02/09/25] pantoprazole 40 mg tablet,delayed release 40 mg PO DAILY 90 days #90 tabs 10/28/24 [Rx Confirmed 02/09/25] estradiol 0.01% (0.1 mg/gram) vaginal cream 1 appful vaginal DAILY 11/25/24 [History Confirmed 02/06/25] docusate sodium 100 mg capsule 200 mg (2 x 100 mg) PO BID PRN Constipation #0 caps 11/29/24 [Rx Confirmed 02/09/25] losartan 25 mg tablet 25 mg PO DAILY 12/05/24 [History Confirmed 02/09/25] ranolazine 500 mg tablet,extended release,12 hr 500 mg PO BID 12/05/24 [History Confirmed 02/09/25] carvedilol 3.125 mg tablet 3.125 mg PO BID.WITH.MEALS #60 tabs 01/26/25 [Rx Confirmed 02/09/25] atorvastatin 80 mg tablet 80 mg PO QPM 100 days #100 tabs 02/02/25 [Rx Confirmed 02/09/25] hydrochlorothiazide 25 mg tablet 12.5 mg PO DAILY 02/09/25 [History Confirmed 02/09/25] Exam Physical Exam Vital Signs: Temp Pulse Resp BP Pulse Ox O2 Del Method 97.9 F 84 18 181/84 H 95 Room Air 02/09/25 18:26 02/09/25 21:58 02/09/25 21:58 02/09/25 21:58 02/09/25 21:58 02/09/25 21:58 Narrative: Constitutional Ill appearing, not in acute distress, frail and lying in bed Eyes PERRL, conjunctivae normal and no scleral icterus Neck/C-Spine full ROM, thyroid normal and no carotid bruits, no thyromegaly, no lymphadenopathy Chest palpation of chest abnormal (bruised and tender along the left lateral lower ribs) Respiratory breath sounds equal bilaterally, normal respiratory effort and clear to auscultation bilaterally Cardiovascular regular rate, regular rhythm, no murmur, no JVD, peripheral pulses 2+ throughoutand no bruits noted Gastrointestinal abdomen normal to inspection, soft, nontender to palpation, nontender to percussion, normoactive bowel sounds, no hepatosplenomegaly and no masses Extremities no tenderness, full ROM and no joint enlargement ROM C-spine and left shoulder near normal. Neurology no focal motor deficits, no sensory deficits noted, oriented x3 Results - Hospitalist H&P Lab Results Labs: Laboratory Last Values Corrected WBC 6.9 X10E3/uL (3.8-11.6) 02/09/25 20:00 Uncorrected WBC Count 6.9 x10E3/uL (3.8-11.6) 02/09/25 20:00 RBC 4.46 x10E6/uL (3.60-5.00) 02/09/25 20:00 Hgb 14.3 g/dL (11.8-15.4) 02/09/25 20:00 Hct 41.1 % (34.0-46.4) 02/09/25 20: MCV 92.2 fl (80-100) 02/09/25 20: MCH 32.0 pg (24.7-34.3) 02/09/25 20: MCHC 34.7 g/dL (32.0-35.0) 02/09/25 20: RDW 13.2 % (11.9-15.3) 02/09/25 20: Plt Count 222 x10E3/uL (150-450) 02/09/25 20: MPV 7.1 fl (6.3-10.7) 02/09/25 20:00 Neut % (Auto) 68.7 % (.) 02/09/25 20: Lymph % (Auto) 21.6 % (.) 02/09/25 20:00 [place] % (Auto) 8.6 % (.) 02/09/25 20:00 Eos % (Auto) 0.5 % (.) 02/09/25 20:00 Baso % (Auto) 0.6 % (.) 02/09/25 20:00 Nucleat RBC Rel Count 0.1 /100 WBC (0-0.5) 02/09/25 20:00 Neut # (Auto) 4.8 x10E3/uL (1.8-7.7) 02/09/25 20:00 Lymph # (Auto) 1.5 x10E3/uL (1.00-4.8) 02/09/25 20:00 [place] # (Auto) 0.6 x10E3/uL (0.0-0.8) 02/09/25 20:00 Eos # (Auto) 0.0 x10E3/uL (0.0-0.45) 02/09/25 20:00 Baso # (Auto) 0.0 x10E3/uL (0.0-0.2) 02/09/25 20:00 Monocyte Dist Width 15.66 % (0.00-20.00) 02/09/25 20:00 PHA Creatinine Clear 46.26 02/09/25 20:00 Sodium 126 mmol/L (136-145) L 02/09/25 20:00 Potassium 3.9 mmol/L (3.5-5.1) 02/09/25 20:00 Chloride 91 mmol/L (98-107) L 02/09/25 20:00 Carbon Dioxide 26.3 mmol/L (21.0-31.0) 02/09/25 20:00 Anion Gap 12.6 mEq/L (6.0-15.0) 02/09/25 20:00 BUN 15 mg/dL (7-25) 02/09/25 20:00 Creatinine 0.77 mg/dL (0.60-1.20) 02/09/25 20:00 Est GFR (CKD-EPI) > 60.0 mL/Min 02/09/25 20: Glucose 125 mg/dL (70-100) H 02/09/25 20:00 Calcium 9.7 mg/dL (8.6-10.3) 02/09/25 20:00 Total Bilirubin 1.0 mg/dl (0.3-1.0) 02/09/25 20:00 AST 23 U/L (13-39) 02/09/25 20:00 ALT 17 U/L (7-52) 02/09/25 20:00 Alkaline Phosphatase 44 U/L (34-104) 02/09/25 20:00 Troponin I High Sens 15 ng/L (0-15) 02/09/25 20:00 Total Protein 7.3 gm/dL (6.4-8.9) 02/09/25 20:00 Albumin 4.7 gm/dL (3.5-5.7) 02/09/25 20:00 Globulin 2.6 gm/dL 02/09/25 20: Albumin/Globulin Ratio 1.8 02/09/25 20: Lipase 24.0 U/L (11.0-82.0) 02/09/25 20:00 Assessment & Plan Assessment/Plan (1) Unsteadiness: (2) Debility: (3) Hyponatremia: (4) Hypertensive urgency: Plan Nausea and Vomiting secondary to Hypertensive Urgency Unsteadiness and generalized weakness Acute Hyponatremia, likely from GI losses -Admit pt to medical floor with telemetry -For now will start her on IV NS 100 ml/hr for a total of 500 ml, if Na not improved by am, can consult nephrology -Consult neurology for the unsteadiness -PT/OT eval -Will restart pt's oral medications for HTN, and obtain CT head without contrast -Obtain repeat Troponin and CPK -IV compazine 5 mg q6 hours PRN for nausea/vomiting -IV labetalol 5 mg q6 hours PRN for SBP>180 -PT/OT eval -Discussed the plan with pt and daughter, in agreement with the plan -Code status is full, HSQ for DVT PPx, IV pantoprazole 40 mg for GI PPx -Will reconcile medications once list is updated by nursing team -Check BMP at 2 am tomorrow -Obtain uric acid, plasma and urine osmolarity, and urine sodium and UA IP vs OBS Justification Based on differential dx, clinical care plan, and risk of adverse events, if untreated, in my clinical judgement this patient requires an acute care setting as: INPATIENT because of an expectation of an over 2 midnight stay. Estimated length of stay (# of days): 3 Time Spent With Patient (min): 75 Documented By: Louis Oliveira MD 02/09/25 2240 Signed By: <Electronically signed by Louis Oliveira MD> 02/09/25 2308 [facility] Work Phone: History of Present illness NarrativePatient [...] a modest diet and weight loss were advocated.-[facility] 250 DO Work Phone: Hospital Discharge instructions [...] NAME: atorvastatin (Lipitor) 80 mg [Drug-Eluting Stent (OLE) duration] DO NOT discontinue Brilinta/Aspirin during the first few months regardless of what you are advised by your family doctor or pharmacist, without first calling the assorter who implanted the stent. If you require [...] weight lifting, stair steppers, etc. until the assorter approves these activities. Check with the assorter on your first follow-up visit. CALL YOUR PHYSICIAN at [phone]: -If bleeding should occur from the catheter insertion site- apply pressure to the site then immediately call us. -Report any fever, redness, drainage, increased swelling, or firmness at the catheter insertion site. Some bruising or slight swelling may be present at the time of discharge. -Should arm or leg become cold, numb, white, or blue, contact the assorter immediately. -IF you should experience episodes of [...] is recommended. Please call Central Scheduling at [phone] to schedule your appointment.] The attending assorter or [facility] nurse clinician should provide you with specific instructions regarding activity, diet, medications, and further follow up for you. Follow the medication instructions provided on your discharge. If the dosages and instructions on this sheet differ from the dosage and instructions on the bottle, follow the instructions on the bottle. [facility] is not responsible for incorrect prescription information provided by the patient during their visit. Do not stop your medications without consulting your health care provider. Please take the list with you to your next doctor's appointment.[facility] Work Phone: Hospital Discharge instructions Additional Instructions [...] MEDICATION Atorvastatin (Lipitor) 80 mg Drug-Eluting Stent (OLE) DO NOT discontinue Brilinta/Aspirin during the first few months regardless of what you are advised by your family doctor or pharmacist, without first calling the assorter who implanted the stent. If you require [...] weight lifting, stair steppers, etc. until the assorter approves these activities. Check with the assorter on your first follow-up visit. CALL YOUR ELECTROPLATER [employer]IC: -If bleeding should occur from the catheter insertion site- apply pressure to the site then immediately call us. -Report any fever, redness, drainage, increased swelling, or firmness at the catheter insertion site. Some bruising or slight swelling may be present at the time of discharge. -Should arm or leg become cold, numb, white, or blue, contact the assorter immediately. -IF you should experience episodes of [...] if you have recurrent angina. The attending assorter or a nurse clinician should provide you with specific instructions regarding activity, diet, medications, and further follow up for you. Follow the medication instructions provided on your discharge. If the dosages and instructions on this sheet differ from the dosage and instructions on the bottle, follow the instructions on the bottle. [facility] is not responsible for incorrect prescription information provided by the patient during their visit. Do not stop your medications without consulting your health care provider. Please take the list with you to your next doctor's appointment.[facility] Work Phone: Hospital Discharge instructions Additional Instructions Follow up with your primary care doctor and Dr Townsend Return to the ED if you develop worsening symptoms or concernsMercy Health [facility] Work Phone: Hospital Discharge instructions No data available for this section [facility] Hospital Discharge instructions Additional Instructions -FULL [facility] Work Phone: Hospital Discharge instructions Additional Instructions Obtain BMP on Thursday as orderedMer[facility] Work Phone: Progress note No data available for this section [facility] Reason for referral (narrative)* Consultation (Routine) - Authorized Specialty Diagnoses / Procedures Referred By Contac t Referred To Contact Cardiology Diagnoses ASCVD (arteriosclerotic cardiovascular disease) Procedures Follow Up In Cardiology Pineda Santillan MD [address] [place] [address] [address], [address] [address] Pineda Santillan MD [address] [place] [address] [address], [address] [address] Referral ID Status Reason Start Date Expiration Date V isits Requested Visits Authorized [id number] Authorized 06/15/2023 06/14/2024 1 1 [facility] Work Phone: Remelv for referral (narrative)* Consultation (Routine) - Authorized Specialty Diagnoses / Procedures Referred By Contac t Referred To Contact Cardiology Diagnoses ASCVD (arteriosclerotic cardiovascular disease) Procedures Follow Up In Cardiology Pineda Santillan MD [address] [place] [address] [address], [address] [address] Pineda Santillan MD [address] [place] [address] [address], [address] [address] Referral ID Status Reason Start Date Expiration Date V isits Requested Visits Authorized [id number] Authorized 01/12/2024 01/11/2025 1 1 [facility] Work Phone: Redsnc for referral (narrative)No reason for referral information availableMercy Health [facility] Work Phone: Reason for visit Narrative* Auth/Cert Specialty Diagnoses / Procedures Referred By Contac t Referred To Contact Diagnoses CAD, needs angioplasty Procedures INPATIENT - ADMIT Shanice De La Cruz MD [address] [place] [address] Phone: tel: fax: [facility] [address] [place] [place] [address] Referral ID Status Reason Start Date Expiration Date Visits Re quested Visits Authorized [id number] 1 1 [facility] Work Phone: Summary Purpose Family History No [...] Unknown Hypertension Unknown mother Unknown Advance Directives No Advanced Directives Records FoundDocuments on File Type Date Recorded Patient Patient Account Liaison Expl anation Healthcare Power of Atty 12/05/2024 12:00 AM Date Activated Date Inactivated Comments 11/29/2024 2:58 PM Question Answer Comments Plan of Care: Code Status Discussion Completed Decision Maker: Patient Healthcare Agents on File Name Relationship Healthcare Agent [facility] Quinn Radha Daughter Health Care Agent Chay Sheikh [facility] C are Agent Documents on File Type Date Recorded Patient Patient Account Liaison Expl anatstef Advance Directive(s) Advance Directive Response Recorded Date/ Time Advance Directives No 2017 6:23pm Documents on File Type Date Recorded Patient Patient Account Liaison Expl anation Living Will 06/05/2021 7:19 AM Date Activated Date Inactivated Comments 06/05/2021 12:15 PM 06/08/2021 6:27 PM Advance Directive Response Recorded Date/ Time Advance Directives No 2017 5:23pm Healthcare Agents on File Name Relationship Healthcare Agent Relationshi p Communication Cheyenne Garcia Daughter Health Care Agent Chay Sheikh [facility] C are Agent Advance Directive Response Recorded Date/ Time Advance Directives Yes December 02, 2024 11:31am Healthcare Agents on File Name Relationship Healthcare Agent Relationshi p Communication Cheyenne [place]oa Daughter Health Care Agent Chay Sheikh [facility] C are Agent Healthcare Agents on File Name Relationship Healthcare Agent Relationshi p Communication Cheyenne Garcia Daughter Health Care Agent Chay Sheikh [facility] C are Agent Chief Complaint ATIYA JHA is being seen [...] N39.41 6 month follow up COVID + [phone] Reason for Visit ASHD (arteriosclerot ic heart disease) Chronic venous insufficiency of lower extremity Heart failure with improved ejection fraction (HFimpEF) Lumbar spondylosis Primary hypertension ASHD (arteriosclerotic heart disease) COVID Chief Complaint UA N39.43 N39.41 6 month follow up COVID + [phone] right sided groin pain Reason for Visit ASHD (arteriosclerot ic heart disease) Chronic venous insufficiency of lower extremity Heart failure with improved ejection fraction (HFimpEF) Lumbar spondylosis Primary hypertension ASHD (arteriosclerotic heart disease) COVID Chief Complaint 6 month follow up COVID + [phone] right sided groin pain right arm pain following a fall Reason for Visit ASHD (arteriosclerot ic heart disease) Chronic venous insufficiency of lower extremity Heart failure with improved ejection fraction (HFimpEF) Lumbar spondylosis Primary hypertension ASHD (arteriosclerotic heart disease) COVID Groin pain, chronic, right H/O total hip arthroplasty Lumbar spondylosis Primary osteoarthritis of right hip Sterile pyuria Chief Complaint Admit Date CC Adult Risk Stratification June 222023 10:22am wellness July 01, 2024 9:29am Stomach pain July 19, 2024 1:24pm UA September 09, 2024 2 :03pm Reason for Visit Admit Date Aortic stenosis July 01, 2024 9:29am ASHD (arteriosclerotic heart disease) No vember 2023 9:29am Chronic venous insufficiency of lower ex tremity July 01, 2024 9:29am Heart failure with improved ejection fra ction (HFimpEF) July 01, 2024 9:29am Hypercholesterolemia July 01, 2024 9:29am Lumbar spondylosis July 01, 2024 9:29am Medicare annual wellness visit, desireee nt July 01, 2024 9:29am Primary hypertension July 01, 2024 9:29am Screening mammogram for breast cancer No vember 2023 9:29am Abdominal pain July 19, 2024 1:24pm Osteoporosis July 19, 2024 1:24pm Unsteady gait July 19, 2024 1:24pm Chief Complaint Admit Date UA September 09, 2024 2 :03pm Back pain October 18, 2024 10: 53am Reason for Visit Admit Date Aortic stenosis October 18, 2024 10: 53am ASHD (arteriosclerotic heart disease) [facility] 2024 10:53am Heart failure with improved ejection fra ction (HFimpEF) October 18, 2024 10:53am Lumbar spondylosis October 18, 2024 10: 53am Osteoporosis October 18, 2024 10: 53am Primary hypertension October 18, 2024 10 :53am Screening mammogram for breast cancer [facility] 2024 10:53am Chief Complaint Admit Date UA September 09, 2024 2 :03pm Back pain October 18, 2024 10: 53am chest tight,sob November 25, 2024 4:3 2pm Reason for Visit Admit Date Low back pain October 18, 2024 10: 53am Lumbar spondylosis October 18, 2024 10: 53am Osteoporosis October 18, 2024 10: 53am Primary hypertension October 18, 2024 10 :53am Hypercholesterolemia November 25, 2024 4: 32pm Reason for Visit Admit Date Low back pain October 18, 2024 10: 53am Lumbar spondylosis October 18, 2024 10: 53am Osteoporosis October 18, 2024 10: 53am Primary hypertension October 18, 2024 10 :53am Aortic stenosis November 25, 2024 4:3 2pm Coronary artery disease November 25, 2024 4:32pm Hypercholesterolemia November 25, 2024 4: 32pm Low back pain November 25, 2024 4:3 2pm Non-ST elevation (NSTEMI) myocardial inf arction November 25, 2024 4:32pm Primary hypertension November 25, 2024 4: 32pm Unstable angina November 25, 2024 4:3 2pm Chief Complaint Admit Date Back pain October 18, 2024 10: 53am chest tight,sob November 25, 2024 4:3 2pm Amb Documentation December 05, 2024 9:40am UH f/u CABG-HIGH RISK December 12, 2024 11: 19am Reason for Visit Admit Date Low back pain October 18, 2024 10: 53am Lumbar spondylosis October 18, 2024 10: 53am Osteoporosis October 18, 2024 10: 53am Primary hypertension October 18, 2024 10 :53am Coronary artery disease November 25, 2024 4:32pm Hypercholesterolemia November 25, 2024 4: 32pm Low back pain November 25, 2024 4:3 2pm Non-ST elevation (NSTEMI) myocardial inf arction November 25, 2024 4:32pm Primary hypertension November 25, 2024 4: 32pm Unstable angina November 25, 2024 4:3 2pm Aortic stenosis November 25, 2024 4:3 2pm ASHD (arteriosclerotic heart disease) Ma y 2024 11:19am Chronic venous insufficiency of lower ex tremity December 12, 2024 11:19am Heart failure with improved ejection fra ction (HFimpEF) December 12, 2024 11:19am Hypercholesterolemia December 12, 2024 11:1 9am Lumbar spondylosis December 12, 2024 11:19 am Primary hypertension December 12, 2024 11:1 9am Chief Complaint Admit Date chest tight,sob November 25, 2024 4:3 2pm Amb Documentation December 05, 2024 9:40am UH f/u CABG-HIGH RISK December 12, 2024 11: 19am fall-lt side pain-02/02February 03, 2025 8 :34am Reason for Visit Admit Date Coronary artery disease November 25, 2024 4:32pm Hypercholesterolemia November 25, 2024 4: 32pm Low back pain November 25, 2024 4:3 2pm Non-ST elevation (NSTEMI) myocardial inf arction November 25, 2024 4:32pm Primary hypertension November 25, 2024 4: 32pm Unstable angina November 25, 2024 4:3 2pm Aortic stenosis November 25, 2024 4:3 2pm Aortic stenosis December 12, 2024 11:19 am ASHD (arteriosclerotic heart disease) Ma y 2024 11:19am Chronic venous insufficiency of lower ex tremity December 12, 2024 11:19am Heart failure with improved ejection fra ction (HFimpEF) December 12, 2024 11:19am Hypercholesterolemia December 12, 2024 11:1 9am Lumbar spondylosis December 12, 2024 11:19 am Primary hypertension December 12, 2024 11:1 9am Chief Complaint Admit Date chest tight,sob November 25, 2024 4:3 2pm Amb Documentation December 05, 2024 9:40am UH f/u CABG-HIGH RISK December 12, 2024 11: 19am fall-lt side pain-02/02February 03, 2025 8 :34am Amb Documentation February 06, 2025 9:43a m ER follow up February 06, 2025 2:16p m Reason for Visit Admit Date Coronary artery disease November 25, 2024 4:32pm Hypercholesterolemia November 25, 2024 4: 32pm Low back pain November 25, 2024 4:3 2pm Non-ST elevation (NSTEMI) myocardial inf arction November 25, 2024 4:32pm Primary hypertension November 25, 2024 4: 32pm Unstable angina November 25, 2024 4:3 2pm Aortic stenosis November 25, 2024 4:3 2pm Aortic stenosis December 12, 2024 11:19 am ASHD (arteriosclerotic heart disease) Ma y 2024 11:19am Chronic venous insufficiency of lower ex tremity December 12, 2024 11:19am Heart failure with improved ejection fra ction (HFimpEF) December 12, 2024 11:19am Hypercholesterolemia December 12, 2024 11:1 9am Lumbar spondylosis December 12, 2024 11:19 am Primary hypertension December 12, 2024 11:1 9am Accidental fall February 06, 2025 2:16p m Chest pain February 06, 2025 2:16p m Chest wall contusion February 06, 2025 2:16 pm Contusion of left chest wall February 06, 2 025 2:16pm Chief Complaint Admit Date chest tight,sob November 25, 2024 4:3 2pm Amb Documentation December 05, 2024 9:40am UH f/u CABG-HIGH RISK December 12, 2024 11: 19am fall-lt side pain-02/02February 03, 2025 8 :34am Amb Documentation February 06, 2025 9:43a m ER follow up February 06, 2025 2:16p m abd pain/v/n February 09, 2025 10:1 0pm Reason for Visit Admit Date Coronary artery disease November 25, 2024 4:32pm Hypercholesterolemia November 25, 2024 4: 32pm Low back pain November 25, 2024 4:3 2pm Non-ST elevation (NSTEMI) myocardial inf arction November 25, 2024 4:32pm Primary hypertension November 25, 2024 4: 32pm Unstable angina November 25, 2024 4:3 2pm Aortic stenosis November 25, 2024 4:3 2pm Aortic stenosis December 12, 2024 11:19 am ASHD (arteriosclerotic heart disease) Ma y 2024 11:19am Chronic venous insufficiency of lower ex tremity December 12, 2024 11:19am Heart failure with improved ejection fra ction (HFimpEF) December 12, 2024 11:19am Hypercholesterolemia December 12, 2024 11:1 9am Lumbar spondylosis December 12, 2024 11:19 am Primary hypertension December 12, 2024 11:1 9am Accidental fall February 06, 2025 2:16p m Chest pain February 06, 2025 2:16p m Contusion of left chest wall February 06, 2 025 2:16pm Contusion of left shoulder February 06 2:16pm Debility February 09, 2025 10:1 0pm Hypertensive urgency February 09, 2025 10: 10pm Hyponatremia February 09, 2025 10:1 0pm Unsteadiness February 09, 2025 10:1 0pm Chief Complaint Admit Date chest tight,sob November 25, 2024 4:3 2pm Amb Documentation December 05, 2024 9:40am UH f/u CABG-HIGH RISK December 12, 2024 11: 19am fall-lt side pain-/February 03, 2025 8 :34am Amb Documentation February 06, 2025 9:43a m ER follow up February 06, 2025 2:16p m abd pain/v/n February 09, 2025 11:0 1pm Reason for Visit Admit Date Coronary artery disease November 25, 2024 4:32pm Hypercholesterolemia November 25, 2024 4: 32pm Low back pain November 25, 2024 4:3 2pm Non-ST elevation (NSTEMI) myocardial inf arction November 25, 2024 4:32pm Primary hypertension November 25, 2024 4: 32pm Unstable angina November 25, 2024 4:3 2pm Aortic stenosis November 25, 2024 4:3 2pm Aortic stenosis December 12, 2024 11:19 am ASHD (arteriosclerotic heart disease) Ma y 2024 11:19am Chronic venous insufficiency of lower ex tremity December 12, 2024 11:19am Heart failure with improved ejection fra ction (HFimpEF) December 12, 2024 11:19am Hypercholesterolemia December 12, 2024 11:1 9am Lumbar spondylosis December 12, 2024 11:19 am Primary hypertension December 12, 2024 11:1 9am Accidental fall February 06, 2025 2:16p m Chest pain February 06, 2025 2:16p m Contusion of left chest wall February 06, 025 2:16pm Contusion of left shoulder February 06 2:16pm Accidental fall February 09, 2025 11:0 1pm Debility February 09, 2025 11:0 1pm Hypertensive emergency February 09, 2025 1 1:01pm Hypertensive urgency February 09, 2025 11: 01pm Hyponatremia February 09, 2025 11:0 1pm Nausea & vomiting February 09, 2025 11:0 1pm Unsteadiness February 09, 2025 11:0 1pm Chief Complaint Admit Date chest tight,sob November 25, 2024 4:3 2pm Amb Documentation December 05, 2024 9:40am UH f/u CABG-HIGH RISK December 12, 2024 11: 19am fall-lt side pain-02/02February 03, 2025 8 :34am Amb Documentation February 06, 2025 9:43a m ER follow up February 06, 2025 2:16p m abd pain/v/n February 09, 2025 10:1 0pm abd pain/v/n February 09, 2025 11:0 1pm Amb Documentation February 13, 2025 10:2 4am Reason for Visit Admit Date Coronary artery disease November 25, 2024 4:32pm Hypercholesterolemia November 25, 2024 4: 32pm Low back pain November 25, 2024 4:3 2pm Non-ST elevation (NSTEMI) myocardial inf arction November 25, 2024 4:32pm Primary hypertension November 25, 2024 4: 32pm Unstable angina November 25, 2024 4:3 2pm Aortic stenosis November 25, 2024 4:3 2pm Aortic stenosis December 12, 2024 11:19 am ASHD (arteriosclerotic heart disease) Ma y 2024 11:19am Chronic venous insufficiency of lower ex tremity December 12, 2024 11:19am Heart failure with improved ejection fra ction (HFimpEF) December 12, 2024 11:19am Hypercholesterolemia December 12, 2024 11:1 9am Lumbar spondylosis December 12, 2024 11:19 am Primary hypertension December 12, 2024 11:1 9am Chest pain February 06, 2025 2:16p m Contusion of left chest wall February 06 2 025 2:16pm Contusion of left shoulder February 06 2:16pm Accidental fall February 06, 2025 2:16p m Debility February 09, 2025 10:1 0pm Hypertensive emergency February 09, 2025 1 0:10pm Hypertensive urgency February 09, 2025 10: 10pm Hyponatremia February 09, 2025 10:1 0pm Nausea & vomiting February 09, 2025 10:1 0pm Unsteadiness February 09, 2025 10:1 0pm Accidental fall February 09, 2025 10:1 0pm Reason for Visit Admit Date Hypercholesterolemia November 25, 2024 4: 32pm Low back pain November 25, 2024 4:3 2pm Primary hypertension November 25, 2024 4: 32pm Non-ST elevation (NSTEMI) myocardial inf arction November 25, 2024 4:32pm Aortic stenosis November 25, 2024 4:3 2pm Coronary artery disease November 25, 2024 4:32pm Unstable angina November 25, 2024 4:3 2pm Aortic stenosis December 12, 2024 11:19 am ASHD (arteriosclerotic heart disease) Ma y 2024 11:19am Chronic venous insufficiency of lower ex tremity December 12, 2024 11:19am Heart failure with improved ejection fra ction (HFimpEF) December 12, 2024 11:19am Hypercholesterolemia December 12, 2024 11:1 9am Lumbar spondylosis December 12, 2024 11:19 am Primary hypertension December 12, 2024 11:1 9am Contusion of left chest wall February 06, 2 025 2:16pm Accidental fall February 06, 2025 2:16p m Chest pain February 06, 2025 2:16p m Contusion of left shoulder February 06 2:16pm Debility February 09, 2025 10:1 0pm Hypertensive emergency February 09, 2025 1 0:10pm Hypertensive urgency February 09, 2025 10: 10pm Hyponatremia February 09, 2025 10:1 0pm Nausea & vomiting February 09, 2025 10:1 0pm Unsteadiness February 09, 2025 10:1 0pm Accidental fall February 09, 2025 10:1 0pm Abnormal serum protein electrophoresis J trinh 2024 10:16am Heart failure with improved ejection fra ction (HFimpEF) February 24, 2025 10:16am Hyponatremia February 24, 2025 10:1 6am Ischemic cardiomyopathy February 24, 2025 10:16am Primary hypertension February 24, 2025 10: 16am Rib fracture February 24, 2025 10:1 6am Reason for Referral Specialty Diagnoses / Procedures Referred By Contac t Referred To Contact Diagnoses DDD (degenerative disc disease), lumbar Trigger point Procedures Trigger [place] Injection ([place] [address] [place] [address]): right gluteus willian Devin Birmingham, [employer] [address] [place] [address] Referral ID Status Reason Start Date Expiration Date V isits Requested Visits Authorized [id number] Incomplete 04/29/2024 10/26/2024 1 1 Specialty Diagnoses / Procedures Referred By Contac t Referred To Contact Radiology Diagnoses Lumbar spine pain Procedures MR lumbar spine wo contrast Aidan Suazo, DO [address] [place] [address] [facility] [address] [place] [address] Referral ID Status Reason Start Date Expiration Date V isits Requested Visits Authorized [id number] Pending Review 05/10/2024 11/06/2024 1 1 Specialty Diagnoses / Procedures Referred By Contact Referred To Contact Orthopaedic Surgery Diagnoses Trigger point Procedures Trigger Point Injection ([place] [address] [place] [address]): right gluteus willian Aidan Suazo, DO [address] [place] [address] [facility] [address] [place] [address] Referral ID Status Reason Start Date Expiration Date V isits Requested Visits Authorized [id number] Pending Review 05/10/2024 11/06/2024 1 1 Specialty Diagnoses / Procedures Referred By Contac t Referred To Contact Radiology Diagnoses ASCVD (arteriosclerotic cardiovascular disease) Chest tightness Shortness of breath Procedures Nuclear Stress Test CHG MYOCARDIAL SPECT MULTIPLE STUDIES Pineda Santillan MD [address] [facility] [address], [address] [place] [address] Referral ID Status Reason Start Date Expiration Date V isits Requested Visits Authorized [id number] Authorized 10/23/2023 10/22/2024 5 5 Additional Source Comments INFORMATION SOURCE (unrecogn ized section and content) DATE CREATED AUTHOR 01/26/2018 [facility] DATE CREATED AUTHOR AUTHOR'S ORGANIZ ATION 06/05/2022 [employer] DATE CREATED AUTHOR AUTHOR'S ORGANIZ ATION 12/11/2022 [facility] DATE CREATED AUTHOR AUTHOR'S ORGANIZ ATION 03/19/2023 [facility] DATE CREATED AUTHOR AUTHOR'S ORGANIZ ATION 06/27/[address] [facility] DATE CREATED AUTHOR AUTHOR'S ORGANIZ ATION 07/16/2024 [facility] DATE CREATED AUTHOR AUTHOR'S ORGANIZ ATION 11/29/2024 [facility] DATE CREATED AUTHOR AUTHOR'S ORGANIZ ATION 12/06/2024 [facility] DATE CREATED AUTHOR AUTHOR'S ORGANIZ ATION 12/07/2024 [facility] DATE CREATED AUTHOR AUTHOR'S ORGANIZ ATION 12/10/2024 [facility] DATE CREATED AUTHOR AUTHOR'S ORGANIZ ATION 04/08/2025 [facility] DATE CREATED AUTHOR AUTHOR'S ORGANIZ ATION 04/13/2025 [facility] DATE CREATED AUTHOR AUTHOR'S ORGANIZ ATION 05/10/2025 [facility] EPIC Source Comments (unrecognize d section and content) In the event this informatio n is protected by the Federal Confidentiality of Alcohol and Drug Abuse Patient Records regulations: The Federal rules restrict any use of the information to criminally investigate or prosecute any alcohol or drug abuse patient.[facility] Reason for Visit (unrecogniz ed section and content) Reason Comments Patient Education Reason Comments Annual Exam Specialty Diagnoses / Procedures Referred By Jnac t Referred To Contact Radiology Diagnoses ASCVD (arteriosclerotic cardiovascular disease) Chest tightness Shortness of breath Procedures Nuclear Stress Test CHG MYOCARDIAL SPECT MULTIPLE STUDIES Pineda Santillan MD [address] [place] [address] 2, [place] [phone] Referral ID Status Reason Start Date Expiration Date V isits Requested Visits Authorized [id number] Authorized 10/23/2023 10/22/2024 5 5 Reason Comments Follow-up Sooner Office Visit Specialty Diagnoses / Procedures Referred By Contac t Referred To Contact Cardiology Diagnoses Congestive heart failure, NYHA class 2 and ACC/AHA stage C (Multi) Procedures Follow Up In Cardiology Sulma Busby, [employer]EMETERY [employer]ULT INST[employer]ER [address] [facility] [address], [place] [id number] Sulma Busby, MILLER SUPERVISOR-CEMETERY [employer]ULT INSTALLER [address] [facility] [address], [place] [phone] Referral ID Status Reason Start Date Expiration Date V isits Requested Visits Authorized [id number] Authorized 11/25/2023 11/24/2024 1 1 Reason Comments Follow-up 1 yr Specialty Diagnoses / Procedures Referred By Griffin t Referred To Contact Cardiology Diagnoses ASCVD (arteriosclerotic cardiovascular disease) Procedures Follow Up In Cardiology Pineda Santillan MD [address] [facility] [address], [address] [address] Pineda Santillan MD [address] [place] [address] [address], [address] [address] Referral ID Status Reason Start Date Expiration Date V isits Requested Visits Authorized [id number] Authorized 06/15/2023 06/14/2024 1 1 Reason Onset Date Comments injection 05/02/2024 Reason Comments Follow-up Reason Onset Date Comments mri 05/17/2024 Reason Comments Gynecologic Exam Pessary follow up. N o complaints. Patient states that between pessary and medication she's happy and it has been working great. Reason Comments Pain Had xray done today having lots of lower back pain Reason Comments Pre-op Clearance Lumbar fusion / LAMI - not scheduled yet Specialty Diagnoses / Procedures Referred By Griffin t Referred To Contact Cardiology Diagnoses ASCVD (arteriosclerotic cardiovascular disease) Pre-operative cardiovascular examination Procedures Follow Up In Cardiology Jamia Ndiaye MD [address] [place] [address] [address], [address] [address] Phone: tel: fax: Jamia Ndiaye MD [address] [place] [address] [address], [address] [address] Phone: tel: fax: Referral ID Status Reason Start Date Expiration Date V isits Requested Visits Authorized [id number] Authorized 05/26/2024 05/26/2025 1 1 Reason Comments Follow-up Reason Comments Nail care Atiya Jha is a 84 y.o. female who presents for Nail care. Reason Comments Nail care Atiya Jha is a 83 y.o. female who presents for nail care. Reason Comments Pain Reason Comments Gynecologic Exam Pt presents for 4 mo nth follow up with pessary. No problems with pessary or abnormal bleeding. Reason Comments Toenail Care Established pt prese nts today with her for nail care. Reason Comments Follow-up Patient here for 9 m onth follow up for congestive heart failure, denies cardiac c/o at this time. Specialty Diagnoses / Procedures Referred By Contac t Referred To Contact Cardiology Diagnoses ASCVD (arteriosclerotic cardiovascular disease) Procedures Follow Up In Cardiology Pineda Santillan MD McGuinn, William P, MD Retired From Practice Referral ID Status Reason Start Date Expiration Date V isits Requested Visits Authorized [id number] Authorized 01/12/2024 01/11/2025 1 1 Reason Comments Follow-up TCM Reason Comments Gynecologic Exam Pt presents for 4 mt h follow up with pessary. No problems or complaints. Reason Comments Hypertension 6 week follow up for hypertension Specialty Diagnoses / Procedures Referred By Griffin gaytan Referred To Contact Cardiology Diagnoses Essential hypertension Palpitations Procedures Follow Up In Cardiology Jamia Ndiaye MD [address] [place] [address] 2, [place] [phone] Phone: tel: fax: Jamia Ndiaye MD [address] [place] [address] 2, [place] [phone] Phone: tel: fax: Referral ID Status Reason Start Date Expiration Date V isits Requested Visits Authorized [id number] Authorized 01/25/2025 01/25/2026 1 1 Reason Comments Toenail Care Established patient presents today with her for routine nail care. Reason Comments Follow-up 4 -5 month Two-vesse l coronary artery disease Specialty Diagnoses / Procedures Referred By Griffin gaytan Referred To Contact Cardiology Diagnoses ASCVD (arteriosclerotic cardiovascular disease) Procedures Follow Up In Cardiology Jamia Ndiaye MD [address] [place] [address] [address], [address] [address] Phone: tel: fax: Jamia Ndiaye MD [address] [place] [address] [address], [address] [address] Phone: tel: fax: Referral ID Status Reason Start Date Expiration Date V isits Requested Visits Authorized [id number] Authorized 10/26/2024 10/26/2025 1 1 Reason Comments Toenail Care Established patient presents today with her for nail care. Care Teams (unrecognized sec tion and content) Team Status: Active Member Role Status Dates Ivan Barreto DO Primary Care Provider Active Team Status: Inactive Member Role Status Dates Ivan Barreto DO Primary Care Provider Active Start: November 25, 2024 End: November 29, 2024 Jerson Aranda , Emergency Provider Active St art: November 25, 2024 End: November 29, 2024 Katya Borges MD Admit Provider Active Start : November 25, 2024 End: November 29, 2024 Shelby Goldstein RN Other Provider Active Star t: November 25, 2024 End: November 29, 2024 Allan Townsend DO Other Provider Active Start : November 25, 2024 End: November 29, 2024 Chelsie Cedeno MD Other Provider Active Start: November 25, 2024 End: November 29, 2024 Pineda Santillan MD Other Provider Active Start: November 25, 2024 End: November 29, 2024 Jamia Ndiaye MD Other Provider Active St art: November 25, 2024 End: November 29, 2024 Cali Orellana MD Other Provider Active Start: November 25, 2024 End: November 29, 2024 Sulma Busby APRN Other Provider Active Start : November 25, 2024 End: November 29, 2024 Myra Gold MD Other Provider Active Start: 2024 End: November 29, 2024 Yoav Nielson MD Other Provider Active Start: November 25, 2024 End: November 29, 2024 Lul Ham MD Other Provider Active Start: A 2024 End: November 29, 2024 Mildred Goff , [facility]- Other Provider Active Sta rt: November 25, 2024 End: November 29, 2024 Nolan Ballesteros DO Attending Provider Active Start: November 25, 2024 End: November 29, 2024 Team Status: Active Member Role Status Dates Ivan Barreto DO Primary Care Provider Active Start: December 05, 2024 Xochitl Du CMA Attending Provider Active Start: December 05, 2024 Team Status: Inactive Member Role Status Dates Ivan Barreto DO Primary Care Provider Active Start: December 12, 2024 End: December 12, 2024 Ivan Barreto DO Attending Provider Active Sta rt: December 12, 2024 End: December 12, 2024 Team Status: Inactive Member Role Status Dates Ivan Barreto DO Primary Care Provider Active Start: February 03, 2025 End: February 03, 2025 Jerson Aranda DO Emergency Provider Active St art: February 03, 2025 End: February 03, 2025 Team Status: Active Member Role Status Dates Ivan Barreto DO Primary Care Provider Active Start: February 06, 2025 Xochitl Du CMA Attending Provider Active Start: February 06, 2025 Team Status: Inactive Member Role Status Dates Ivan Barreto DO Primary Care Provider Active Start: February 06, 2025 End: February 06, 2025 Ivan Barreto DO Attending Provider Active Sta rt: February 06, 2025 End: February 06, 2025 Team Status: Inactive Member Role Status Dates Ivan Barreto DO Primary Care Provider Active Start: February 09, 2025 End: February 10, 2025 Angie Davidson MD Emergency Provider Active Start: February 09, 2025 End: February 10, 2025 Louis Oliveira MD Admit Provider Active Start: 2024 End: February 10, 2025 Rashawn Mahmood DO Other Provider Active Start: February 09, 2025 End: February 10, 2025 Sandra Heart MD Attending Provider Active Start: February 09, 2025 End: February 10, 2025 Team Status: Active Member Role Status Dates Ivan Barreto DO Primary Care Provider Active Start: February 09, 2025 Angie Davidson MD Emergency Provider Active Start: February 09, 2025 Louis Oliveira MD Admit Provider Active Start: 2024 Rashawn Mahmood DO Attending Provider Active Sta rt: February 09, 2025 Rashawn Mahmood DO Other Provider Active Start: February 09, 2025 Sandra Heart MD Other Provider Active Sta rt: February 09, 2025 Team Status: Active Member Role Status Dates Ivan Barreto DO Primary Care Provider Active Start: February 13, 2025 Xochitl Du CMA Attending Provider Active Start: February 13, 2025 Team Status: Active Member Role Status Dates Ivan Barreto DO Primary Care Provider Active Start: November 15, 2024 Jerson Streeter MD Attending Provider Active St art: November 15, 2024 Team Status: Inactive Member Role Status Dates Ivan Barreto DO Primary Care Provide r, Attending Provider Active Start: September 09, 2024 End: September 09, 2024 Team Status: Inactive Member Role Status Dates Ivan Barreto DO Primary Care Provide r, Attending Provider Active Start: October 18, 2024 End: October 18, 2024 Team Status: Active Member Role Status Dates Ivan Barreto DO Primary Care Provide r, Attending Provider Active Start: June 22, 2024 Team Status: Inactive Member Role Status Dates Ivan Barreto DO Primary Care Provide r, Attending Provider Active Start: July 01, 2024 End: July 01, 2024 Team Status: Active Member Role Status Dates Ivan Barreto DO Primary Care Provide r, Attending Provider Active Start: July 11, 2024 Team Status: Inactive Member Role Status Dates Ivan Barreto DO Primary Care Provide r, Attending Provider Active Start: July 19, 2024 End: July 19, 2024 Team Status: Active Member Role Status Dates Porfirio Vu MD Primary Care Provider Active Team Status: Active Member Role Status Dates Chaitanya Lu DO Emergency Provider Active Porfirio Vu MD Primary Care Provider Active W Ziyad Townsend , DO Admit Provider, Attending Provide r Active Odalis Hager MD Other Provider Active Team Status: Inactive Member Role Status Dates Chaitanya Lu DO Emergency Provider Active W Ziyad Townsend , DO Admit Provider, Attending Provide r Active Ivan Barreto DO Primary Care Provider Active Odalis Hager MD Other Provider Active Meat Inspector Relationship Specialty Start Date End Date Ivan Barreto DO [address] [place] [id number] PCP - General 04/16/21 Team Status: Inactive Member Role Status Dates Ivan Barreto DO Attending Provider Active Sta rt: August 14, 2023 End: August 14, 2023 Team Status: Inactive Member Role Status Dates Ivan Barreto DO Primary Care Provide r, Attending Provider Active Start: October 20, 2023 End: October 20, 2023 Meat Inspector Relationship Specialty Start Date End Date Ivan Barreto DO [facility] [address] [place] [address] PCP - General Internal Medicine 11/10/23 Meat Inspector Relationship Specialty Start Date End Date Ivan Barreto DO [address] [place] [address] PCP - General Internal Medicine 11/10/23 Meat Inspector Relationship Specialty Start Date End Date Ivan Barreto DO [address] [facility] [address] [place] [address] PCP - General Internal Medicine 11/10/23 Meat Inspector Relationship Specialty Start Date End Date Ivan Barreto DO [address] [facility] [address] [place] [address] PCP - General Internal Medicine 11/10/23 Meat Inspector Relationship Specialty Start Date End Date Ivan Barreto DO [address] [facility] [address] [place] [address] PCP - General Internal Medicine 11/10/23 Meat Inspector Relationship Specialty Start Date End Date Ivan Barreto DO [address] [facility] [address] [place] [address] PCP - General Internal Medicine 11/10/23 Meat Inspector Relationship Specialty Start Date End Date Ivan Barreto DO [address] [facility] [address] [place] [address] PCP - General Internal Medicine 11/10/23 Team Status: Inactive Member Role Status Dates Ivan Barreto DO Primary Care Provider Active Start: November 16, 2023 End: November 16, 2023 Allan Townsend DO Attending Provider Active S tart: November 16, 2023 End: November 16, 2023 Team Status: Inactive Member Role Status Dates Ivan Barreto DO Primary Care Provider Active Start: November 18, 2023 End: November 18, 2023 Allan Townsend DO Attending Provider Active S tart: November 18, 2023 End: November 18, 2023 Meat Inspector Relationship Specialty Start Date End Date Ivan Barreto DO PCP - General Internal Medicine 11/10/23 Team Status: Inactive Member Role Status Dates Ivan Barreto DO Primary Care Provider Active Start: November 18, 2023 End: November 19, 2023 Allan Townsend , DO Attending Provider Active S tart: November 18, 2023 End: November 19, 2023 Team Status: Active Member Role Status Gautam Barreto DO Primary Care Provide r, Attending Provider Active Start: November 25, 2023 Team Status: Active Member Role Status Gautam Barreto DO Primary Care Provider Active Start: November 30, 2023 Sulma Busby APRN Attending Provider Active S tart: November 30, 2023 Team Status: Inactive Member Role Status Gautam Barreto DO Primary Care Provider Active Start: December 23, 2023 End: December 23, 2023 Alexei Stone DO Emergency Provider Active Sta rt: December 23, 2023 End: December 23, 2023 Team Status: Inactive Member Role Status Gautam Barreto DO Primary Care Provide r, Attending Provider Active Start: December 24, 2023 End: December 24, 2023 Team Status: Inactive Member Role Status Gautam Barreto DO Primary Care Provide r, Attending Provider Active Start: January 07, 2024 End: January 07, 2024 Meat Inspector Relationship Specialty Start Date End Date Ivan Barreto DO PCP - General Internal Medicine 11/10/23 Team Status: Inactive Member Role Status Gautam Barreto DO Primary Care Provide r, Attending Provider Active Start: January 29, 2024 End: January 29, 2024 Team Status: Inactive Member Role Status Gautam Wisdom DO Attending Provider Active Sta rt: February 24, 2024 End: February 24, 2024 Team Status: Inactive Member Role Status Gautam Barreto DO Primary Care Provide r, Attending Provider Active Start: March 02, 2024 End: March 02, 2024 Team Status: Active Member Role Status Gautam Barreto DO Primary Care Provider Active Start: April 07, 2024 Jerson Streeter MD Attending Provider Active St art: April 07, 2024 Team Status: Inactive Member Role Status Gautam Barreto DO Primary Care Provide r, Attending Provider Active Start: April 12, 2024 End: April 12, 2024 Team Status: Inactive Member Role Status Gautam Barreto DO Primary Care Provide r, Attending Provider Active Start: April 25, 2024 End: April 25, 2024 Meat Inspector Relationship Specialty Start Date End Date Ivan Barreto MD [address] [place] [facility] [id number] PCP - General Internal Medicine 12/15/22 Meat Inspector Relationship Specialty Start Date End Date Ivan Barreto MD [address] [place] [facility] [id number] PCP - General Internal Medicine 12/15/22 Meat Inspector Relationship Specialty Start Date End Date Ivan Barreto MD [address] [place] [facility] [address] PCP - General Internal Medicine 12/15/22 Meat Inspector Relationship Specialty Start Date End Date Ivan Barreto MD [address] [place] [facility] [id number] PCP - General Internal Medicine 12/15/22 Meat Inspector Relationship Specialty Start Date End Date Ivan Barreto MD [address] [place] [address] PCP - General Internal Medicine 12/15/22 Meat Inspector Relationship Specialty Start Date End Date Ivan Barreto DO [address] [place], [place] [id number] PCP - General Internal Medicine 05/10/21 Team Status: Inactive Member Role Status Dates Ivan Barreto DO Primary Care Provide r, Attending Provider Active Start: May 27, 2024 End: May 27, 2024 Meat Inspector Relationship Specialty Start Date End Date Ivan Barreto DO PCP - General Internal Medicine 11/10/23 Meat Inspector Relationship Specialty Start Date End Date Ivan Barreto MD [address] [place] [facility] [address] PCP - General Internal Medicine 12/15/22 Meat Inspector Relationship Specialty Start Date End Date Ivan Barreto MD [address] [facility] [address] PCP - General Internal Medicine 12/15/22 Meat Inspector Relationship Specialty Start Date End Date Ivan Barreto MD [address] [place] [facility] [address] PCP - General Internal Medicine 12/15/22 Meat Inspector Relationship Specialty Start Date End Date Ivan Barreto MD [address] [place] [id number] PCP - General Internal Medicine 12/15/22 Meat Inspector Relationship Specialty Start Date End Date Ivan Barreto MD [address] [place] [facility] [place] [address] PCP - General Internal Medicine 12/15/22 Meat Inspector Relationship Specialty Start Date End Date Ivan Barreto MD [address] [place] [facility] [place] [address] PCP - General Internal Medicine 12/15/22 Meat Inspector Relationship Specialty Start Date End Date Ivan Barreto DO PCP - General Internal Medicine 11/10/23 Team Status: Active Member Role Status Dates Ivan Barreto DO Primary Care Provider Active Start: November 25, 2024 Jerson Aranda DO Emergency Provider Active St art: November 25, 2024 Katya Borges MD Admit Provider, Att ending Provider Active Start: November 25, 2024 Meat Inspector Relationship Specialty Start Date End Date Ivan Barreto DO [address] [place] [address] PCP - General Internal Medicine 11/29/24 Meat Inspector Relationship Specialty Start Date End Date Ivan Barreto DO [address] [place] [address] PCP - General Internal Medicine 11/29/24 Xochitl Knox, tissue technologistWorking Foreman 12/05/24 Team Status: Inactive Member Role Status Dates Ivan Barreto DO Primary Care Provide r, Attending Provider Active Start: December 12, 2024 End: December 12, 2024 Meat Inspector Relationship Specialty Start Date End Date Ivan Barreto DO [address] [place] [address] PCP - General Internal Medicine 12/15/22 Meat Inspector Relationship Specialty Start Date End Date Ivan Barreto DO [address] [place] [phone] PCP - General Internal Medicine 12/15/22 Meat Inspector Relationship Specialty Start Date End Date Ivan Barreto DO [address] [place] [address] PCP - General Internal Medicine 12/15/22 Meat Inspector Relationship Specialty Start Date End Date Ivan Barreto DO [address] [place] [address] PCP - General Internal Medicine 11/29/24 Meat Inspector Relationship Specialty Start Date End Date Ivan Barreto DO [address] [place] [phone] PCP - General Internal Medicine 12/15/22 Meat Inspector Relationship Specialty Start Date End Date Ivan Barreto DO [address] [place] [address] PCP - General Internal Medicine 12/15/22 Team Status: Active Member Role Status Dates Ivan Barreto DO Primary Care Provider Active Start: February 09, 2025 Angie Davidson MD Emergency Provider Active Start: February 09, 2025 Louis Oliveira MD Admit Provider Active Start: J 2024 Louis Oliveira MD Attending Provider Active Star t: February 09, 2025 Team Status: Inactive Member Role Status Dates Ivan Barreto DO Primary Care Provider Active Start: February 24, 2025 End: February 24, 2025 Ivan Barreto DO Attending Provider Active Sta rt: February 24, 2025 End: February 24, 2025 Meat Inspector Relationship Specialty Start Date End Date Ivan Barreto DO [address] [place] [address] PCP - General Internal Medicine 11/29/24 Meat Inspector Relationship Specialty Start Date End Date Ivan Barreto DO [address] [place] [phone] PCP - General Internal Medicine 12/15/22 Celina Muñoz PA [address] [place] [address] PCP - [place] 08/03/2408/02 Meat Inspector Relationship Specialty Start Date End Date Ivan Barreto DO [address] [place] [address] PCP - General Internal Medicine 12/15/22 Celina uMñoz PA [address] [place] [address] PCP - [place] 08/03/2408/02 Goals (unrecognized section and content) Goals may be documented in a n alternate section Scheduled Active and Recently Administ ered Medications (unrecognized section and content) Medication Order 12/01/2024 12/02/2024 12/03/2024 aspirin EC tablet 81 mg 81 mg, oral, Daily, First dose on Thu12/01/24 at 1215, Do not crush, chew, or split. 1206 (Given - Provider: Deedee Chand RN) 0835 (Given - Provider: Deeede Chand RN) 0847 (Given - Provider: Jennifer Calderón, NICOLE) atorvastatin (Lipitor) tablet 80 mg 80 mg, oral, Daily, First dose on Thu11/29/24 at 2100 2109 (Given - Provider: Magdalene Limon, NICOLE) 2056 (Given - Provider: Magdalene Limon, NICOLE) 2100 (Due) carvedilol (Coreg) tablet 6.25 mg 6.25 mg, oral, 2 times daily (morning and late afternoon), First dose on Thu11/29/24 at 1700 0942 (Given - Provider: Deedee Chand RN)1845 (Given - Provider: Deedee Chand RN) 0834 (Given - Provider: Deedee Chand RN)1611 (Given - Provider: Deedee Chand RN) 0847 (Given - Provider: Jennifer Calderón, RN)1700 (Due) clopidogrel (Plavix) tablet 75 mg 75 mg, oral, Daily, First dose on Thu12/01/24 at 1215 1206 (Given - Provider: Deedee Chand RN) 0834 (Given - Provider: Deedee Chand RN) 0847 (Given - Provider: Jennifer Calderón, NICOLE) hydroCHLOROthiazide (Microzide) tablet 12.5 mg 12.5 mg, oral, Daily, First dose on Thu11/29/24 at 1615, On hold since Thu12/02/2024 at 0800 until manually unheld 0942 (Given - Provider: Deedee Chand RN) 0800 (Held by provider - Provider: ABDULLAHI Rome - Reason: Change in vital signs)0900 (Dose Auto Held - Provider: ABDULLAHI Rome) 0900 (Not Given - Provider: Jennifer Calderón RN - Reason: See Provider Order) losartan (Cozaar) tablet 25 mg 25 mg, oral, Daily, First dose on Thu12/02/24 at 0900 0834 (Given - Provider: Deedee Chand RN) 0847 (Given - Provider: Jennifer Calderón RN) oxybutynin (Ditropan) tablet 5 mg 5 mg, oral, 2 times daily, First dose on Thu11/29/24 at 2100 0942 (Given - Provider: Deedee Chand RN)2109 (Given - Provider: Magdaelne Limon, NICOLE) 0835 (Given - Provider: Deedee Chand RN)2055 (Given - Provider: Magdalene Limon, RN) 0848 (Given - Provider: Jennifer Calderón RN)2100 (Due) pantoprazole (ProtoNix) EC tablet 40 mg 40 mg, oral, Daily before breakfast, First dose on Thu11/30/24 at 0600, Do not crush, chew, or split. 0654 (Given - Provider: Magdalene Limon, NICOLE) 0644 (Given - Provider: Magdalene Limon, RN) 0640 (Given - Provider: Magdalene Limon, RN) polyethylene glycol (Glycolax, Miralax) packet 17 g 17 g, oral, Daily, First dose on Thu11/29/24 at 1515, Bowel Regimen - for prevention of constipation. 0954 (Not Given - Provider: Deedee Chand RN - Reason: Patient/family refused) 0835 (Not Given - Provider: Deedee Chand RN - Reason: Patient/family refused) 0847 (Not Given - Provider: Jennifer Calderón RN - Reason: Patient/family refused) ranolazine (Ranexa) 12 hr tablet 500 mg 500 mg, oral, 2 times daily, First dose on Thu12/02/24 at 0900, Do not crush, chew, or split. 0835 (Given - Provider: Deedee Chand RN)210 (Given - Provider: Magdalene Limon, NICOLE) 0848 (Given - Provider: Jennifer Calderón, NICOLE)2100 (Due) Continuous Medication Order 12/01/2024 12/02/2024 12/03/2024 heparin 25,000 Units in dextrose 5% 250 mL (100 Units/mL) infusion (premix) (CANCELED) 0-4,000 Units/hr (0-40 mL/hr), intravenous, Continuous, Starting on Thu11/29/24 at 1615, Until Thu12/02/24 at 1330, Low Intensity Heparin Protocol (<70kg) Initial Dose: 12 units/kg/hr --> Use heparin calculator for units/hr rate Maximum Initial Dose: 1000 units/hr Recheck Heparin Assay, UFH level 4 hours after any rate change, or per protocol. Titration Table: Heparin Assay, UFH < 0.1: Bolus 3,000 units, INCREASE rate by 200 units/hr. , Heparin Assay, UFH 0.1 to 0.2: Bolus 1,500 units. INCREASE rate by 100 units/hr. Heparin Assay, UFH 0.3 to 0.6: (THERAPEUTIC) DO NOT CHANGE Infusion Rate. No Bolus. Heparin Assay, UFH 0.7 to 1: No Bolus. DECREASE rate by 100 unit/hour. Heparin Assay, UFH 1.1 to 1.2: No Bolus. HOLD heparin infusion for 1 hour, then DECREASE rate by 200 units/hour. Heparin Assay, UFH > 1.2: No Bolus. HOLD heparin infusion for 1 hour, then recheck heparin assay: *If repeat is > 0.6, continue to HOLD INFUSION. -Confirm last draw was performed correctly (pump was paused for a minimum of 2 minutes, sample NOT drawn off line/lumen where medication was infusing) -Contact provider for further orders. *If repeat is <= 0.6, REDUCE previous infusion rate by 300 units/hour and restart infusion. -Recheck Heparin Assay, UFH in 4 hours after dose reduction. -Resume nomogram 0958 (New Bag - Provider: Deedee Chand RN) 1330 (Stopped - Provider: Deedee Chand RN - Comment: [Order ends at this time. Document the following action when infusion is complete: Stopped]) sodium chloride 0.9% infusion (CANCELED) 100 mL/hr, intravenous, Continuous, Starting on Thu12/02/24 at 0130, For 1 day, Preprocedure 0843 (New Bag - Provider: Deedee Chand RN)1332 (Stopped - Provider: Deedee Chand RN - Comment: [Order ends at this time. Document the following action when infusion is complete: Stopped]) PRN Medication Order 12/01/2024 12/02/2024 12/03/2024 acetaminophen (Tylenol) oral liquid 650 mg(Linked Group 1) 650 mg, oral, Every 4 hours PRN, pain mild (1-3), first line, Starting on Thu11/29/24 at 1457, Give oral liquid per feeding tube if present or if patient prefers oral liquid over tablets. 0310 (See Alternative - Provider: Magdalene Limon RN) acetaminophen (Tylenol) suppository 650 mg(Linked Group 1) 650 mg, rectal, Every 4 hours PRN, pain mild (1-3), first line, Starting on Thu11/29/24 at 1457, Give rectally if unable to administer by mouth or feeding tube., If ordered PRN for pain, nurse is permitted to administer this medication for higher pain scores based on patient preference? Yes 0310 (See Alternative - Provider: Magdalene Limon RN) acetaminophen (Tylenol) tablet 650 mg(Linked Group 1) 650 mg, oral, Every 4 hours PRN, pain mild (1-3), first line, Starting on Thu11/29/24 at 1457, Administer tablet or oral liquid per patient preference., If ordered PRN for pain, nurse is permitted to administer this medication for higher pain scores based on patient preference? Yes 0310 (Given - Provider: Magdalene Limon RN) fentaNYL PF (Sublimaze) injection (CANCELED) As needed, Starting on Thu12/02/24 at 1242, Intraprocedure 1242 (Given - Provider: Leeann Duncan RN - Comment: sedation) heparin 1,000 unit/mL injection (CANCELED) As needed, Starting on Thu12/02/24 at 1245, Intraprocedure 1245 (Given - Provider: Leeann Duncan RN - Comment: anticoagulationwitnessed by JS) iohexol (OMNIPaque) 350 mg iodine/mL solution (CANCELED) As needed, Starting on Thu12/02/24 at 1300, Intraprocedure 1300 (Given - Provider: Ann Howard MD - Comment: xray dye used) lidocaine (Xylocaine) 20 mg/mL (2 %) injection (CANCELED) As needed, Starting on Thu12/02/24 at 1244, Intraprocedure 1244 (Given - Provider: Ann Howard MD - Comment: rt groin numbing) melatonin tablet 10 mg 10 mg, oral, Nightly PRN, sleep, Starting on Thu12/01/24 at 2042 2109 (Given - Provider: Magdalene Limon RN) 2054 (Given - Provider: Magdalene Limon, NICOLE) midazolam (Versed) injection (CANCELED) As needed, Starting on Thu12/02/24 at 1243, Intraprocedure 1243 (Given - Provider: Leeann Duncan RN - Comment: sedation) morphine injection 2 mg 2 mg, intravenous, Every 1 hour PRN, Chest Pain, Starting on Thu12/02/24 at 1331, Phase II/On Unit, If ordered PRN for pain, nurse is permitted to administer this medication for higher pain scores based on patient preference? Yes nitroglycerin (Nitrostat) SL tablet 0.4 mg 0.4 mg, sublingual, Every 5 min PRN, chest pain, Starting on Thu11/30/24 at 1841, May administer up to 3 doses per episode. 0305 (Given - Provider: Magdalene Limon RN)0310 (Given - Provider: Magdalene Limon, NICOLE)1236 (Given - Provider: Deedee Chand RN)1303 (Given - Provider: Deedee Chand, NICOLE) nitroglycerin (Tridil) injection (CANCELED) As needed, Starting on Thu12/02/24 at 1251, Intraprocedure 1251 (Given - Provider: Ann Howard MD - Comment: spasm) ondansetron (Zofran) injection 4 mg(Linked Group 2) 4 mg, intravenous, Every 8 hours PRN, nausea/vomiting, first line, Starting on Thu11/29/24 at 1457, 1st Line. Give IV if patient is unable to take orally. If inadequate response within 60 minutes, proceed to next-line agent for same PRN reason or contact provider if no further options ordered. When administering via IV Push, administer over 3-5 minutes. ondansetron (Zofran) tablet 4 mg(Linked Group 2) 4 mg, oral, Every 8 hours PRN, nausea/vomiting, first line, Starting on Thu11/29/24 at 1457, 1st Line. Use oral route first, if possible. If inadequate response within 60 minutes, proceed to next-line agent for same PRN reason or contact provider if no further options ordered. Linked Groups Order Group 1: acetaminophen (Tylenol) tablet 650 mgJump to med 650 mg, oral, Every 4 hours PRN, pain mild (1-3), first line, Starting on Thu11/29/24 at 1457, Administer tablet or oral liquid per patient preference., If ordered PRN for pain, nurse is permitted to administer this medication for higher pain scores based on patient preference? Yes Or acetaminophen (Tylenol) oral liquid 650 mgJump to med 650 mg, oral, Every 4 hours PRN, pain mild (1-3), first line, Starting on Thu11/29/24 at 1457, Give oral liquid per feeding tube if present or if patient prefers oral liquid over tablets. Or acetaminophen (Tylenol) suppository 650 mgJump to med 650 mg, rectal, Every 4 hours PRN, pain mild (1-3), first line, Starting on Thu11/29/24 at 1457, Give rectally if unable to administer by mouth or feeding tube., If ordered PRN for pain, nurse is permitted to administer this medication for higher pain scores based on patient preference? Yes Group 2: ondansetron (Zofran) tablet 4 mgJump to med 4 mg, oral, Every 8 hours PRN, nausea/vomiting, first line, Starting on Thu11/29/24 at 1457, 1st Line. Use oral route first, if possible. If inadequate response within 60 minutes, proceed to next-line agent for same PRN reason or contact provider if no further options ordered. Or ondansetron (Zofran) injection 4 mgJump to med 4 mg, intravenous, Every 8 hours PRN, nausea/vomiting, first line, Starting on Thu11/29/24 at 1457, 1st Line. Give IV if patient is unable to take orally. If inadequate response within 60 minutes, proceed to next-line agent for same PRN reason or contact provider if no further options ordered. When administering via IV Push, administer over 3-5 minutes. FOR RECORDS PERTAINING TO PATIENTS WHO ARE [...] BE BASED ON THE PRIMARY CLINICAL RECORDS. [employer] provides no warranty or guarantee of the accuracy or completeness of information in this document.
== END 2025-05-15 12:50 | disposition home or self-care (01) ==
PROVIDERS: PCP Internal Medicine; Visit Provider Internal Medicine
DX: R07.9 Chest pain, unspecified (principal)
CPT/HCPCS: 71101

== ENCOUNTER 2025-06-12 17:29 | Emergency (ER) | payer MEDICARE, SELFPAY ==
--- OUTSIDE RECORDS SUMMARY | 2025-05-29 12:30 | XMS_ITS | Encounter Summary ---
Author Organization [facility] Address [address] [place] [address] Care Team Providers Care Portfolio Accountant Name Role Phone Danis Huang DO Primary Care Provider [phone] Nikolai Muñoz Unavailable [phone] Reason for Visit * ReasonCommentsGynecologic ExamPt presents for pessary maintenance . No concerns or problems. Has left side pain from a fall that occurred a week ago. Has seen her pcp since fall. Encounter Details DateTypeDepartmentCare Team (Latest Contact Info)Pfbkpbbrgpc03/27/2025 1:30 PM EDTOffice Visit [facility] [address] [place] [address] Dennis Miguel DO [address] [place] [address] Pessary maintenance (Primary Dx); Cystocele with rectocele; Vaginal atrophy; Granulation tissue Social History Tobacco UseTypesPacks/DayYears UsedDateSmoking Tobacco: NeverSmokeless Tobacco: NeverAlcohol UseStandard Drinks/WeekCommentsYes0 (1 standard drink = 0.6 oz pure alcohol)1-2 drinks less than monthly in the past year, Caffeine intake: 1-2 cups per dayAUDIT-CAnswerDate RecordedQ1: How often do you have a drink containing alcohol?Monthly or less12/30/2023Q2: How many drinks containing alcohol do you have on a typical day when you are drinking?1 or Q3: How often do you have six or more drinks on one occasion?Less than mvzqjne63/29/2024PHQ-2Answer Date RecordedPatient Health Questionnaire-2 [id number] Sex and Gender InformationValueDate RecordedSex Assigned at BirthNot on file Legal MpwPtoauv60/15/2023 7:28 PM EDTGender IdentityNot on fileSexual OrientationNot on filedocumented as of this encounter Last Filed Vital Signs Vital SignReadingTime TakenCommentsBlood Qrrspuud051/8410 1:06 PM EDT Pulse--Temperature--Respiratory Rate--Oxygen Saturation--Inhaled Oxygen Concentration--Eflnuo21.9 kg (143 lb)05/29/2025 1:06 PM TWVNrthpe808.1 cm (5' 5 )05/29/2025 1:06 PM EDTBody Mass Index23.81 1:06 PM EDTdocumented in this encounter Progress Notes * Dennis Miguel, DO - 05/29/2025 1:30 PM EDT Images from the original note were not included. Subjective Atiya Jha is a 85 y.o. female Chief Complaint Patient presents with Gynecologic Exam Pt presents for pessary maintenance . No concerns or problems. Has left side pain from a fall that occurred a week ago. Has seen her pcp since fall. History of Present Illness Current Outpatient Medications: carvedilol (Coreg) 3.125 MG tablet, Take 3.125 mg by mouth in the morning and 3.125 mg in the evening. Take with meals., Disp: , Rfl: alendronate (Fosamax) 70 MG [...] by mouth inthe morning., Disp: , Rfl: clopidogrel (Plavix) 75 MG [...] SURGICAL HISTORY 11/2020 right intrarticular hip injection RI BREAST REDUCTION 1999 TRIGGER FINGER RELEASE 03/02/2019 [...] Comments Pap 05/07/22- Neg Mammogram 07/11/24- Neg ([facility]) Dexa 07/15/24- spine normal, L forearm osteoporosis ([facility]) Colonoscopy 2019 ([facility]) Review of Systems All negative unless documented in treatment Objective Visit Vitals BP 112/84 Ht 5' 5 Wt 143 lb LMP (LMP Unknown) BMI 23.80 kg/m?? OB Status Postmenopausal Smoking Status Never BSA 1.73 m?? No Known Allergies Physical Exam Constitutional: Appearance: [...] Irritation c/w lichen sclerosus. Vaginal granulation tissue present. No vaginal discharge, erythema, tenderness, bleeding [...] 2. Cystocele with rectocele N81.10 N81.6 3. Vaginal atrophy N95.2 4. Granulation tissue L92.9 Patient presents for pessary maintenance. Currently has size 4 ring with support. Pessary removed, cleaned and reinserted. Tolerating pessary well. She has not been using Estradiol vaginal cream twice weekly. Area of granulation tissue noted, treated with silver nitrate. Encouraged to restart Estradiol vaginal cream and use twice weekly. Plan to return in 4 months for pessary maintenance. Entered by Nelsy Merino LPN acting as scribe for Dr. Dennis Miguel. Signature: Nelsy Merino LPN The documentation recorded by the scribe accurately reflects the service(s) I personally performed and the decisions I made. Signature: Dennis Miguel DO Assessment & Plan documented in this encounter Plan of Treatment DateTypeDepartmentCare Team (Latest Contact Info)Hqokjedxrcm57/19/2026 2:15 PM ESTProcedure Visit [facility] [address] [place] [phone] Germán Weir DPM [address] [place], [place] [id number] 09/27/2025 1:00 PM ESTOffice Visit [facility] [place] [facility] [address] [place] [phone] Dennis Miguel DO [address] [place] [address] documented as of this encounter Visit Diagnoses Diagnosis Pessary maintenance- Primary Fitting and adjustment of other device Cystocele with rectocele Vaginal atrophy Postmenopausal atrophic vaginitis Granulation tissue documented in this encounter Care Teams Team MemberRelationshipSpecialtyStart DateEnd Date Danis Huang DO [address] [place] [address] PCP - GeneralInternal Medicine12/15/22 Nikolai Muñoz PA [address] [place] [phone] PCP - Medical [place]08/03/2511documented as of this encounter
--- OUTSIDE RECORDS SUMMARY | 2025-05-31 08:30 | XMS_ITS | Encounter Summary ---
Author Organization [facility] Address [address] [facility] [place] [address] Care Team Providers Care Combatant Swimmer Name Role Phone SalDanis She BRUSH Primary Care Provider [phone] Nikolai Muñoz Unavailable [phone] Reason for Visit * ReasonCommentsPain Encounter Details DateTypeDepartmentCare Team (Latest Contact Info)Zhhwzuvpwpq07/29/2025 9:30 AM EDTOffice Visit [facility] [address] [place] [address] Nikolai Muñoz PA [address] [place] [address] History of total right hip replacement (Primary Dx); Acute right hip pain; Right hip pain Social History Tobacco UseTypesPacks/DayYears UsedDateSmoking Tobacco: NeverSmokeless [...] or more drinks on one occasion?Less than nyjzksm14/29/2024PHQ-2Answer Date RecordedPatient Health Questionnaire-2 Nlfuu8054CommentsNo Sex and Gender InformationValueDate RecordedSex Assigned at BirthNot on file Legal HmnDakkfn03/15/2023 7:28 PM EDTGender IdentityNot on fileSexual OrientationNot on filedocumented as of this encounter Last Filed Vital Signs Vital SignReadingTime TakenCommentsBlood Pressure--Pulse--Temperature-- Respiratory Rate--Oxygen Saturation--Inhaled Oxygen Concentration--Eoszkk43.9 kg (143 lb)05/31/2025 9:36 AM NREBfeypa852.5 cm (5' 2 )05/31/2025 9:36 AM EDTBody Mass Index26.161 9:36 AM EDTdocumented in this encounter Progress Notes * SHANNAN Mitchell - 05/31/2025 9:30 AM EDT Images from the original note were not included. 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 Assistive device: cane Inspection Leg length disparity: no discrepancy Right Erythema: none Ecchymosis: none Edema: none Deformity: none Previous incision: anterolateral Incision: well-healed Palpation Right Right hip palpation is normal. Increased warmth: none Tenderness: present Greater trochanteric region pain: mild Greater trochanteric region pain comment: at times Range of Motion Right Right hip range of motion is within functional limits. Active ROM: normal. Passive ROM: normal. Strength Right Right hip strength is normal. Extension: 5/5. Flexion: 5/5. Internal rotation: 5/5. External rotation: 5/5. Adduction: 5/5. Abduction: 5/5. Neurovascular Right Right hip neurovascular exam is normal. Pulses - PT: normal Posterior tibial: 2+ Special Tests Right Log roll test: negative JACKIE test (right): negative Impingement test: negative General Constitutional: appears stated age Labored breathing: no Psychiatric: normal mood and affect Neurological: alert and oriented x3 Skin: intact Lymphadenopathy: none Orders Placed This Encounter Procedures XR hip right 2 or 3 views Reason for exam:: PAIN Procedures Results - Imaging: - X-rays of the hip show no evidence of complication ICD-10-CM 1. History of total right hip replacement Z96.641 2. Acute right hip pain M25.551 3. Right hip pain M25.551 XR hip right 2 or 3 views Assessment & Plan Post-operative status following total hip arthroplasty She reports satisfactory progress with no significant complaints. A palpable bump on the lateral hip at the greater trochanteric bony prominence was noted, which is minimally tender upon direct palpation but does not cause discomfort during ambulation. The adipose atrophy in this area, along with her scar and prominence, was discussed. There is no evidence of complications. X-rays were reviewed at bedside. Follow-up on her hip will be conducted as needed, pending further office appointments. Right knee pain Her right knee is tolerable with a prior cortisone injection, and she declines the need for a repeat injection today. She is ambulating with a cane for balance and safety. If her right knee symptoms flare up or pain worsens, she may contact the office for reevaluation and possible injection. PROCEDURE Procedure Performed Total hip replacement on 06/05/2021. Questions answered in laymen terms at the bedside. The diagnosis, home exercise plan and any ongoing restrictions/ recommendations reviewed. If unable to be reached in office, I recommend evaluation at nearest Emergency Room if any symptoms worsened or new symptoms develop for requiring urgent evaluation. Visit was preformed using [email or web address]-commercial airplane pilot speech recognition. documented in this encounter Plan of Treatment DateTypeDepartmentCare Team (Latest Contact Info)Wbqyvwuafel53/19/2026 2:15 PM ESTProcedure Visit [facility] [address] [place] [phone] Germán Weir, DPM [address] [place], [place] [address] 09/27/2025 1:00 PM ESTOffice Visit [facility] [address] [place] [address] Dennis Miguel DO [address] [place] [address] documented as of this encounter Procedures Procedure NamePriorityDate/TimeAssociated DiagnosisCommentsXR HIP 2 OR 3 VW QKSKIDagxyyx36/29/2025 9:41 AM EDT Right hip pain documented in this encounter Results * XR hip right 2 or 3 views (05/31/2025 9:41 AM EDT)Anatomical RegionLaterality ModalityLower Extremities, HipRightRadiographic ImagingSpecimen (Source) Anatomical Location / LateralityCollection Method / VolumeCollection Time Received Time Narrative 05/31/2025 9:59 AM EDT Imaging Result: AP and Lateral Right hip: AP and lateral of right hip showed acceptable position and alignment of right total hip arthroplasty. There was no evidence of loosening of the acetabular cup or femoral stem. ?? osteopenia Femoral head was well centered in the acetabular liner without evidence of asymmetric or accelerated wear. There was no gross evidence of fracture and/or dislocation. Impression: Unremarkable right total hip arthroplasty. Authorizing ProviderResult TypeResult StatusMatthew Melecio Muñoz PAI XR PROCEDURES Final Result documented in this encounter Visit Diagnoses Diagnosis History of total right hip replacement- Primary Acute right hip pain Right hip pain Pain in joint, pelvic region and thigh documented in this encounter Care Teams Team MemberRelationshipSpecialtyStart DateEnd Date Danis Huang DO [address] [place] [address] PCP - GeneralInternal Medicine12/15/22 Nikolai Muñoz PA [address] [place] [address] PCP - Medical Michael MA1/documented as of this encounter
--- OUTSIDE RECORDS SUMMARY | 2025-05-31 08:45 | XMS_ITS | Encounter Summary ---
Author Organization [facility] Address [address] [facility] [place] [address] Care Team Providers Care Skin Washer Name Role Phone SalDanis She BRUSH Primary Care Provider [phone] Nikolai Muñoz Unavailable [phone] Encounter Details DateTypeDepartmentCare Team (Latest Contact Info)Cuaxwyjnvai70/29/2025 9:45 AM EDTAncillary Procedure [facility] [address] [place] [address] Social History Tobacco UseTypesPacks/DayYears UsedDateSmoking Tobacco: NeverSmokeless [...] or more drinks on one occasion?Less than taopvmo81/29/2024PHQ-2Answer Date RecordedPatient Health Questionnaire-2 Pmoec1944CommentsNo Sex and Gender InformationValueDate RecordedSex Assigned at BirthNot on file Legal AwvIfzclm06/15/2023 7:28 PM EDTGender IdentityNot on fileSexual OrientationNot on filedocumented as of this encounter Plan of Treatment DateTypeDepartmentCare Team (Latest Contact Info)Wqkiduekaof80/19/2026 2:15 PM ESTProcedure Visit [facility] [address] [place] [address] Germán Weir, DPM [address] [place] [address] 09/27/2025 1:00 PM ESTOffice Visit [facility] [address] [place] [address] Dennis Miguel DO [address] [place] [address] documented as of this encounter Procedures Procedure NamePriorityDate/TimeAssociated DiagnosisCommentsXR HIP 2 OR 3 VW PTDVXOlgwowk76/29/2025 9:41 AM EDT Right hip pain documented [...] arthroplasty. Authorizing ProviderResult TypeResult StatusMatthew Melecio Muñoz PAIMG XR PROCEDURES Final Result documented in this encounter Visit Diagnoses Not on filedocumented in this encounter Care Teams Team MemberRelationshipSpecialtyStart DateEnd Date Danis Huang DO [address] [place] [address] PCP - GeneralInternal Medicine12/15/22 Nikolai Muñoz PA [address] [place] [address] PCP - Medical [place] MA08/03/2511documented as of this encounter
[2025-06-12 17:34] VITALS: BP 189/90; PULSE 80; TEMP 36.3; O2SAT 98; BMI 26.5
--- NOTE | 2025-06-12 18:01 | CT_ITS ---
The [address] [address] Patient Name: MARY TEE MRN: [id number] date: 1940 Sex: F Assigned Patient Location: ED.MAIN Current Patient Location: ED.MAIN Accession/Order Number: [id number] Exam Date: 06/12/2025 18:14 Report Date: 06/12/2025 19:03 At the request of: EVETTE NARVAEZ DO Procedure: CT head/brain wo con CT BRAIN WITHOUT CONTRAST: CLINICAL HISTORY: fall on DAPT, left eye contusion COMPARISON: None TECHNIQUE: Contiguous axial unenhanced images were obtained through the brain. This CT exam was performed using one or more following dose reduction techniques: Automated exposure control, adjustment of the mA and/or kV according to patient size, or use of iterative reconstruction technique. FINDINGS: There is no evidence of midline shift, intra or extra-axial fluid collection, hemorrhage or CT evidence of of acute large vascular distribution stroke.. Central involutional changes and chronic small vessel ischemic disease. Visualized intraorbital contents appear unremarkable. Minor paranasal sinus mucoperiosteal thickening. The surrounding soft tissues are normal. CT/CT head/brain wo con IMPRESSION: NO ACUTE INTRACRANIAL ABNORMALITY. CHRONIC MICROVASCULAR DISEASE CENTRAL CHANGE. Impression dictated by: Stephen Perez M.D. 06/12/2025 7:03 PM Dictation Location: [place] [address] Electronically authenticated by: [id number] Y Date: 06/12/2025 19:03
--- OUTSIDE RECORDS SUMMARY | 2025-06-12 18:08 | XMS_ITS | Clinical Summary ---
Author Organization [facility] Address [address] [facility] [address] Care Team Providers Care Electrical Prospecting Engineer Name Role Phone Danis Huang DO Primary Care Provider [phone] Nikolai Muñoz Unavailable [phone] Allergies No known active allergies Medications MedicationSigDispense QuantityRefillsLast FilledStart DateEnd DateStatus atorvastatin (Lipitor) 80 MG tablet Take 80 mg by mouth DailyActive nitroglycerin (Nitrostat) 0.[address] 0.4 mg under the tongue every 5 (five) minutes if needed for chest pain Active aspirin 81 MG EC tablet Take 81 mg by mouth DailyActive docusate sodium (Colace) 50 MG capsule Take 50 mg by mouth in the morning and 50 mg before bedtime.Active Calcium Carbonate-Vitamin D (Oyster Shell Calcium/D) 500-5 MG-MCG tablet Take 1 tablet by mouth in the morning.Active alendronate (Fosamax) 70 MG tablet Indications:Osteoporosis, post-menopausalTake 1 tablet (70 mg) by mouth every 7 (seven) days Take in the morning with a full glass of water,on an empty stomach, and do not take anything else by mouth or lie down for the next 30 min. 4 tablet 11044Active estradiol (Estrace) 0.1 MG/GM vaginal cream Indications:Vaginal atrophy1 gram at bedtime for 2 weeks then twice weekly 42 g 4Active hydroCHLOROthiazide (HYDRODiuril) 25 MG tablet Take 25 mg by mouth every other day03/09/2024ctive clopidogrel (Plavix) 75 MG tablet Take 75 mg by mouth in the morning.6Active losartan (Cozaar) 25 MG tablet Take 25 mg by mouth DailyActive pantoprazole (ProtoNix) 40 MG EC tablet Take 40 mg by mouth in the morning. Take before meals.5Active ranolazine (Ranexa) 500 MG 12 hr tablet TAKE 1 TABLET BY MOUTH TWICE DAILY DO NOT CRUSH, CHEW, OR SPLITActive mirabegron ER (Myrbetriq) 25 MG 24 hr tablet Indications:Urge incontinence,Urinary frequencyTake 1 tablet (25 mg) by mouth at bedtime Do not crush, chew, or split. 90 tablet /[id number] carvedilol (Coreg) 3.125 MG tablet Take 3.125 mg by mouth in the morning and 3.125 mg in the evening. Take with meals.5Active carvedilol (Coreg) 6.25 MG tablet Take by mouth in the morning and in the evening. Take with meals.05/29/2025 Discontinued(Dose adjustment) Active Problems ProblemNoted DateDiagnosed DateHistory of heart artery stent10/07/2023High ccqaiffjqux94/06/2024ST elevation (STEMI) myocardial infarction of unspecified site4Right wrist pain08/28/2023History of bilateral carpal tunnel ssspwzc5108/28/2023History of PTCA108/15/2022SCVD (arteriosclerotic cardiovascular disease)05/19/2023ongestive heart failure, NYHA class 2 and ACC/AHA stage C 05/19/2023Essential wenkgrkfvsan93/17/2023Mixed nmkkeytsozclim11/17/2023Systolic dudpxb90Status post right hip ynpiklrvzwa55/17/2021Osteoarthritis of knee03/04/2021isorder of txrdgz5102/07/2021 Overview (10/07/2023): Added automatically from request for surgery [id number] Primary osteoarthritis of right hip07/19/2020 Overview (05/21/2023): Added automatically from request for surgery [id number] Ischial diwrptpc07/05/2019 Overview (10/07/2023): Added automatically from request for surgery [id number] Drbujzbczt99/04/2016Vitamin D vlvjtukyvn36/03/6341Yawgdowe25/03/2016Sacroiliac joint pain01/17/2010Hip pain12/18/2009Degeneration of intervertebral disc of lumbosacral hwstvi1801/16/2009 Encounters DateTypeDepartmentCare RyclKpfjcnyvnds43/29/2025 9:45 AM EDTAncillary Procedure [address] [phone] 05/31/2025 9:30 AM EDTOffice Visit [facility] [address] [place] [address] Nikolai Muñoz PA History of total right hip replacement (Primary Dx); Acute right hip pain; Right hip pain05/31/2025amboo flowsheet [facility] [address] [place] [address] Nikolai Muñoz PA 05/31/20258482Ynspok23/27/2025 1:30 PM EDTOffice Visit [facility] [address] [place] [address] Dennis Miguel, DO Pessary maintenance (Primary Dx); Cystocele with rectocele; Vaginal atrophy; Granulation qbzmat3005/29/20259096Pmphdc52/06/2025 1:00 PM EDTProcedure Visit [facility] [address] [place] [address] Germán Weir DPM Dermatophytosis of nail (Primary Dx); Dystrophic nail; Pain around toenail, right foot; Pain around toenail, left foot05/08/2025amboo flowsheet [facility] [address] [place] [address] Germán Weir DPM 05/08/20253579Qqldrp05/02/2025Travelfrom Last 3 Months Immunizations ImmunizationAdministration DatesNext DueInfluenza, High Dose Seasonal, Preservative Free05/04/2020,04/03/2020,04/29/2019Influenza, High-dose Seasonal, Quadrivalent, Preservative Free05/06/2023,05/06/2022,04/24/2021Influenza, Ugegwfbiwmc31/04/2023Influenza, injectable, quadrivalent, preservative free 04/28/2018,05/04/2017Pneumococcal Conjugate PCV 131Pneumococcal Polysaccharide SLVA4136,08/03/2004Zoster, Zzzsfhdxawo00/29/2019, 03/28/2019Zoster, live04/15/2011 Family History Medical HistoryRelationNameCommentsKidney diseaseBrotherHeart diseaseFatherHeart diseaseMotherHypertensionMotherStrokeMotherHeart diseaseSisterRelationNameStatus IkdtymiyBrlguplBlscuhln2Sztoygjn1, healthyFatherDeceasedMotherDeceasedSister Mpzhrqfm9Svo8 Social History Tobacco UseTypesPacks/DayYears UsedDateSmoking Tobacco: NeverSmokeless Tobacco: Never Tobacco Cessation:Counseling Given: Not Answered Alcohol UseStandard Drinks/WeekCommentsYes0 (1 standard drink = 0.6 [...] or more drinks on one occasion?Less than nwkujsz22/29/2024PHQ-2Answer Date RecordedPatient Health Questionnaire-2 Okqxa5434CommentsNo Sex and Gender InformationValueDate RecordedSex Assigned at BirthNot on file Legal NymPcgfid86/15/2023 7:28 PM EDTGender IdentityNot on fileSexual OrientationNot on file Last Filed Vital Signs Vital SignReadingTime TakenCommentsBlood Yptgyuin862/8405/29/2025 1:06 PM EDT Pulse--Temperature--Respiratory Rate--Oxygen Saturation--Inhaled Oxygen Concentration--Gxbgog38.9 kg (143 lb)05/31/2025 9:36 AM QKWJebqum588.5 cm (5' 2 )05/31/2025 9:36 AM EDTBody Mass Index26.161 9:36 AM EDT Plan of Treatment DateTypeDepartmentCare Team (Latest Contact Info)Wlxivwyvpiw62/19/2026 2:15 PM ESTProcedure Visit [facility] [address] [place] [address] Germán Weir, DPM [address] [place], [place] [address] 09/27/2025 1:00 PM ESTOffice Visit [facility] [address] [place] [phone] Dennis Miguel DO [address] [place] [address] Health MaintenanceDue DateLast DoneCommentsMedicare Annual Wellness (AWV) 311/2COVID-19 Vaccine ( season)504/, 05/06/2021, 09/23/2020, Additional history existsPneumococcal Vaccine: 65+ Years Roevzkyyy16/04/2016, 08/03/2010, 08/03/2004Influenza MtxlwjzEldcgevvs08/18/2025, 07/01/2024, 05/06/2023, Additional history exists Procedures Procedure NamePriorityDate/TimeAssociated DiagnosisCommentsXR HIP 2 OR 3 VW WRMLVJeqxrik31/29/2025 9:41 AM EDT Right hip pain from Last 3 Months Results * XR hip right 2 or [...] right total hip arthroplasty. Authorizing ProviderResult TypeResult StatusMatthemonique Muñoz PAIMG XR PROCEDURES Final Result from Last 3 Months Insurance Care Teams Team MemberRelationshipSpecialtyStart DateEnd Date Danis Huang DO [address] [place] [address] PCP - GeneralInternal Medicine12/15/22 Nikolai Muñoz PA [address] [place] [address] PCP - Medical [place]08/03/2511
--- OUTSIDE RECORDS SUMMARY | 2025-06-12 18:08 | XMS_ITS | Encounter Summary ---
Author Organization [facility] Address [address] [facility] [place] [address] Care Team Providers Care Waste Management Specialist Name Role Phone SalDanis She BRUSH Primary Care Provider [phone] Nikolai Muñoz PA Unavailable [phone] Encounter Details DateTypeDepartmentCare Team (Latest Contact Info)Sfvtpvzrhhg97/29/2025Travel Social History Tobacco UseTypesPacks/DayYears UsedDateSmoking Tobacco: NeverSmokeless [...] or more drinks on one occasion?Less than ulrecsx53/29/2024PHQ-2Answer Date RecordedPatient Health Questionnaire-2 Ujifb7764CommentsNo Sex and Gender InformationValueDate RecordedSex Assigned at BirthNot on file Legal CfqJkbcfq86/15/2023 7:28 PM EDTGender IdentityNot on fileSexual OrientationNot on filedocumented as of this encounter Plan of Treatment DateTypeDepartmentCare Team (Latest Contact Info)Vrhxvfzmgre08/19/2026 2:15 PM ESTProcedure Visit [facility] [address] [place] [address] Germán Weir, RODOLFO [address] [place] [address] 09/27/2025 1:00 PM ESTOffice Visit [facility] [place] [facility] [address] [place] [address] Dennis Miguel DO [address] [place] [address] documented as of this encounter Visit Diagnoses Not on filedocumented in this encounter Care Teams Team MemberRelationshipSpecialtyStart DateEnd Date Danis Huang DO [address] [place] [address] PCP - GeneralInternal Medicine12/15/22 Nikolai Muñoz PA [address] [place] [phone] PCP - Medical [place]08/03/2511documented as of this encounter
--- OUTSIDE RECORDS SUMMARY | 2025-06-12 18:08 | XMS_ITS | Encounter Summary ---
Author Organization [facility] Address [address] [facility] [place] [address] Care Team Providers Care Quality Review Specialist Name Role Phone SalDanis She BRUSH Primary Care Provider [phone] Nikolai Muñoz Unavailable [phone] Encounter Details DateTypeDepartmentCare Team (Latest Contact Info)Rdrckszqton98/29/2025Bamboo flowsheet [facility] [address] [place] [address] Nikolai Muñoz PA [address] [place] [address] Social History Tobacco UseTypesPacks/DayYears UsedDateSmoking [...] or more drinks on one occasion?Less than diuwzcd07/29/2024PHQ-2Answer Date RecordedPatient Health Questionnaire-2 Ybmsc9894CommentsNo Sex and Gender InformationValueDate RecordedSex Assigned at BirthNot on file Legal VrbJugodj27/15/2023 7:28 PM EDTGender IdentityNot on fileSexual OrientationNot on filedocumented as of this encounter Plan of Treatment DateTypeDepartmentCare Team (Latest Contact Info)Dwmfkdiewgf36/19/2026 2:15 PM ESTProcedure Visit [facility] [address] [place] [address] Germán Weir, DPM [address] [place], [place] [address] 09/27/2025 1:00 PM ESTOffice Visit [facility] [address] [place] [address] Dennis Miguel DO [address] [place] [address] documented as of this encounter Visit Diagnoses Not on filedocumented in this encounter Care Teams Team MemberRelationshipSpecialtyStart DateEnd Date Danis Huang DO [address] [place] [place] [address] PCP - GeneralInternal Medicine12/15/22 Nikolai Muñoz PA [address] [place] [address] PCP - Medical [place]08/03/2511documented as of this encounter
--- OUTSIDE RECORDS SUMMARY | 2025-06-12 18:08 | XMS_ITS | Encounter Summary ---
Author Organization [facility] Address [address] [facility] [place] [address] Care Team Providers Care Market Gardener Name Role Phone SalDanis She BRUSH Primary Care Provider [phone] Nikolai Muñoz PA Unavailable [phone] Encounter Details DateTypeDepartmentCare Team (Latest Contact Info)Zjhkvwmcewz91/27/2025Travel Social History Tobacco UseTypesPacks/DayYears UsedDateSmoking Tobacco: NeverSmokeless [...] or more drinks on one occasion?Less than /29/2024PHQ-2Answer Date RecordedPatient Health Questionnaire-2 Syyla8654CommentsNo Sex and Gender InformationValueDate RecordedSex Assigned at BirthNot on file Legal YmpMzhksu10/15/2023 7:28 PM EDTGender IdentityNot on fileSexual OrientationNot on filedocumented as of this encounter Plan of Treatment DateTypeDepartmentCare Team (Latest Contact Info)Exehjzusszq23/19/2026 2:15 PM ESTProcedure Visit [facility] [address] [place] [address] Germán Weir, RODOLFO [address] [place] [address] 09/27/2025 1:00 PM ESTOffice Visit [facility] [place] [facility] [address] [place] [address] Dennis Miguel DO [address] [place] [address] documented as of this encounter Visit Diagnoses Not on filedocumented in this encounter Care Teams Team MemberRelationshipSpecialtyStart DateEnd Date Danis Huang DO [address] [place] [address] PCP - GeneralInternal Medicine12/15/22 Nikolai Muñoz PA [address] [place] [address] PCP - Medical [place] MD08/03/2511documented as of this encounter
--- OUTSIDE RECORDS SUMMARY | 2025-06-12 18:12 | XMS_ITS | CCD ---
Author Organization [facility] CliniSyny Care Team Providers Care Tapper Hand Name Role Phone SULMA BUSBY Unavailable Unavailable PORFIRIO VU Unavailable Unavailable Porfirio Vu Primary Care Provider [phone] Ivan Barreto Unavailable Unavailable Unavailable Ivan Barreto Unavailable DR PINEDA SANTILLAN Admitting Unavailable MARY LOU, DR MOSCOSO Primary Care Unavailable BRYCE, DR SUNG Attending Unavailable BRYCE, DR SUNG Consulting Unavailable MEHRAN ., DR GAINES Consulting Unavailangel BARRETO, DR MOSCOSO Primary Care Unavailable KARASIMarisela ., DR GAINES Admitting Unavailabl e KARASIK ., DR GAINES Attending Unavailabl e KARASIK ., DR GAINES Attending Unavailabl e KARASIK ., DR GAINES Consulting Unavailangel BARRETO, DR MOSCOSO Primary Care Unavailable KARASIK ., DR GAINES Admitting Unavailabl e VALERIYEBYOSELIN ALVA Consulting Unavailable DO Chaitanya Lu Emergency Provider [phone] MD Porfirio Vu Primary Care Provider DO Allan Townsend Admit Provider [phone] DO Allan Townsend Attending Provider [phone] MD Odalis Hager Other Provider DO Ivan Barreto Primary Care Provider Bryce NAVAS, Dr. Pineda Arthur Attending Unavailable Dr. Ivan Barreto Primary Care Unavai Ivan Blackburn DO Primary Care Provider Ivan Barreto DO Primary Care Provider DO Ivan Barreto Primary Care Provider DO Allan Townsend Attending Provider [phone] Ivan Barreto DO Primary Care Provider BerthaDO Alexei Emergency Provider Ball, DO Ivan Attending Provider IVAN BARRETO Primary Care Physician Ball, DO Moscoso Primary Care Provider Visci, DO Jordan Attending Provider Mary Lou SAMS, Ivan Nowak Primary Care Provider Ball , Ivan E Primary Care Provider MARY LOU, [...] BALL, IVAN E Primary Care Unavailable NIENBERG, CELINA Berry Attending Unavailable BALL, IVAN E Referring Unavailable BALL, IVAN E Primary Care Unavailable NIENBERG, LEON Young Attending Unavailable BALL, IVAN E Referring Unavailable BALL, IVAN E Primary Care Unavailable ARAGON, PINEDA Nowak Attending Unavailable ARAGON, PINEDA Nowak Referring Unavailable BALL, IVAN E Primary Care Unavailable ARAGON, PINEDA Nowak Admitting Unavailable ARAGON, PINEDA Nowak Attending Unavailable BALL, IVAN E Referring Unavailable BALL, IVAN E Primary Care Unavailable BIYANI, RAMONE Referring Unavailable BALL, IVAN E Primary Care Unavailable BIYANI, RAMONE Referring Unavailable BALL, IVAN E Primary Care Unavailable BIYANI, RAMONE Referring Unavailable BALL, IVAN E Primary Care Unavailable Ball , Ivan Nowak Primary Care Provider Ivan Barreto DO Primary Care Provider Jerson Aranda DO Emergency Provider Katya Borges MD Admit Provider Katya Borges MD Attending Provider Shelby Goldstein RN Other Provider Unavailable Allan Townsend DO Other Provider Chelsie Cedeno MD Other Provider Bryce SAMS, Pineda Arthur Other Provider Jamia Ndiaye MD Other Provider Esteban SAMS, Cali Other Provider Sulma Busby APRN Other Provider Myra Gold MD Other Provider Naga SAMS, Yoav Diaz Other Provider Jitendra SAMS, Lul Other Provider [place] [facility], Mildred Bermudez Other Provider Nolan Ballesteros DO Attending Provider SHANICE DE LA CRUZ Admitting Unavailable SHANICE DE LA CRUZ Attending Unavailable IVAN BARRETO Primary Care Unavailable Ivan Barreto DO Primary Care Provider JAMIA NDIAYE Referring Unavailable IVAN BARRETO Primary Care Unavailable BRITTON GOODMAN Admitting Unavailable NIR MIN Attending Unavailable Xochitl Knox RN Unavailable Unavailable Antonina Cooper Attending Unavailable Jerson STREETER Attending Unavailable Jerson STREETER Attending Unavailable Antonina Cooper Attending Unavailable Jerson STREETER Attending Unavailable Jerson STREETER Attending Unavailable Jerson STREETER Attending Unavailable Ivan Barreto DO Primary Care Provider Ivan Barreto DO Primary Care Provider [phone] Jerson Streeter MD Attending Provider Xochitl Du CMA Attending Provider Unavaila ble Ivan Barreto DO Attending Provider Angie Davidson MD Emergency Provider Louis Oliveira MD Admit Provider Louis Oliveira MD Attending Provider Angie Davidson MD Emergency Provider Louis Oliveira MD Admit Provider Rashawn Mahmood DO Attending Provider Rashawn Mahmood DO Other Provider Sandra Heart MD Other Provider [phone] Rashawn Mahmood DO Other Provider Sandra Heart MD Attending Provider Ivan Barreto Primary Care Unavailable Jerson Aranda Attending Unavailable Jerson Aranda Admitting Unavailable TeeLouis bermudez Admitting Unavailable Mary LouIvan Primary Care Unavailable Rashawn Mahmood Consulting Unavailable Sandra Heart Attending Unavailable Nolan Ballesteros Attending UnavailShelby Pisano Consulting Unavailable Ivan Barreto Primary Care Unavailable Katya Borges Admitting Unavailable Allan Townsend Consulting Unavailable CedenoChelsie Consulting Unavailable Pineda Santillan Consulting Unavail able TrabJamia taylor Consulting Unavailable Cali Orellana Consulting Unavailab Sulma Crenshaw Consulting Unavailable Myra Gold Consulting Unavailable NagaGerardYoav Najeeb Consulting Unavailab Lul Farrell Consulting Unavailable Mildred Goff Consulting Unavailable SULMA BUSBY Attending Unavailable TRABBRANDON, KADEEMF Referring Unavailable MARY LOU IVAN She Primary Care Unavailable TRABOULJOSEI, KADEEMF Attending Unavailable MARY LOU IVAN She Primary Care Unavailable TRABOULSSI, MOAKILAHF Referring Unavailable TRABKADEEM TAYLORF Attending Unavailable PINEDA SANTILLAN Referring Unavailable MARY LOU IVAN She Primary Care Unavailable TRABOULJOSEI, KADEEMF Attending Unavailable MARY LOU IVAN She Primary Care Unavailable TRABOULSSI, MOAKILAHF Attending Unavailable MARY LOU IVAN E Primary Care Unavailable TRABOULSSI, MOURHAF Referring Unavailable Celina Baker Unavailable [phone] Ivan Barreto DO Primary Care Provider Ivan Barreto DO Attending Provider Jamia Ndiaye MD Attending Provider Ivan Barreto DO Primary Care Provider LISA DAVENPORT Attending Unavailable JORDAN WISDOM Attending Unavailable YOSELIN WEIR Attending Unavailable CELINA MUÑOZ Attending Unavailable CELINA MUÑOZ Referring Unavailable JORDAN WISDOM Attending Unavailable YOSELIN WEIR Attending Unavailable YOSELIN WEIR Attending Unavailable YOSELIN WEIR Attending Unavailable JORDAN WISDOM Attending Unavailable CELINA MUÑOZ Attending Unavailable CELINA MUÑOZ Referring Unavailable Allergies Allergy ClassificationReported Allergen(s)Allergy TypeDate of OnsetReaction(s) Facility (1 source)No Known Medication Allergies; Translations: [No Known Medication Allergies]Propensity to adverse reactions (disorder)[facility] Medications Current Medications MedicationDrug Class(es)DatesSig (Normalized)Sig (Original)Acetaminophen (20 sources)Start: 23-36-9920hbtx 1 tablet by mouth every four hours as needed acetaminophen (Tylenol) tablet 650 mgStart: 82-57-3966atfc 2 tablets by mouth every six hours as needed for painAcetaminophen (Tylenol Extra Strength) 500 mg tablet Active 1000 MG PO Every 6 hours as needed for pain November 16, 2023 12:00am Complies with drug therapyalendronic acid 70 mg oral tablet (20 sources)BisphosphonateStart: 11-17-2023 End: 35-38-3968oycx 1 tablet by mouth in the morningalendronate (Fosamax) 70 MG tablet Indications: Osteoporosis, post-menopausal Take 1 tablet (70 mg)by mouth every 7 (seven) days Take in the morning with a full glass of water, on an empty stomach, and do not take anything else by mouth or lie down for the next 30 min. 4 tablet 11 11/17/2023 ActiveStart: 41-42-0635zgmn 1 tablet by mouth every week Alendronate 70 mg tablet Active 70 MG PO every week January 14, 2023 12:00am EVERY THURSDAY Complieswith drug therapytake 1 tablet by mouth once daily Alendronate Sodium 70 MG 1 tablet 30 minutes before the first food, beverage or medicine of the daywith plain water Orally Activeaspirin 81 mg delayed release oral tablet (20 sources)Platelet Aggregation Inhibitor, Nonsteroidal Anti-inflammatory Drug Start: 76-52-7936qfup 1 mg by mouth every twenty-four hoursaspirin 81 mg oral capsule mg cap(s), Oral, q24hr, Refills(s) 0 Start Date: 02/08/24 Status: Ordered Start: 98-08-0541xran 1 tablet by mouth once dailyAspirin (Aspir-81) 81 mg Tablet,Delayed Release (Dr/Ec) Active 81 MG PO Daily November 02, 2017 12:00am Complies with drug therapytake 1 tablet by mouth once dailyAspirin 81 81 MG 1 tablet Orally Once a day ActiveBaby Aspirin ActiveComment on above:Take one (1) tablet daily.atorvastatin 80 mg oral tablet (20 sources)HMG-CoA Reductase InhibitorStart: 70-87-6726xvax 1 tablet by mouth once daily in the eveningAtorvastatin 80 mg tablet Active 80 MG PO Every evening 100 100 February 02, 2025 12:59pm Complies with drug therapyStart: 94-76-4968encb 80 mg by mouth once daily80 mg, oral, Daily, First dose on Thu11/29/24 at 2100 Start: 07-12-2024 End: 31-30-9491dnkv 1 tablet by mouth once dailyAtorvastatin 80 mg tablet Discontinued 0 .ROUTE .COMPLEX July 12, 2024 2:15pm February 02, 2025 12:59pm TAKE 1 TABLET BY MOUTH EVERY DAYStart: 24-49-6291najo 2 tablets by mouth once dailyAtorvastatin Calcium 40 MG Oral Tablet TAKE 2 TABLET Daily Quantity: 180 Refills: 0 Ordered: 19-Mar-2023 Pineda Santillan MD Start : 19-Mar-2023 Active Patient states she cannot swallow an 80 mg tabletStart: 01-16-2023 End: 04-96-5322wutf 1 tablet by mouth once daily in the eveningAtorvastatin 80 mg Tablet Discontinued 80 MG PO Every evening January 16, 2023 12:00am July 12, 2024 2:15pmazithromycin 250 mg oral tablet (2 sources)Macrolide AntimicrobialStart: 15-13-4844Xiiidowkwvuj 250 MG as directed Orally daily for 5 days Oct, ActiveStart: 07-03-2021 Azithromycin 250 MG Oral Tablet TAKE 2 TABLETS by mouth today, THEN take 1 TABLET once a day FOR the next 4 DAYS. Quantity: 6 Refills: 0 Ordered: 03-Jul-2021 DO Start : 03-Jul-2021 Completecalcium carbonate 1250 mg / cholecalciferol 200 unt oral tablet (20 sources)Vitamin DStart: 03-98-2199cptk 1 tablet by mouth once dailyCalcium Carbonate-Vitamin D3 500 mg-5 mcg (200 unit) tablet Active 1 TAB PO Daily November 17, 2023 12:00am Complies with drug therapytake 1 tablet by mouth once in the morningCalcium Carbonate-Vitamin D (Oyster Shell Calcium/D) 500-5 MG-MCG tablet Take 1 tablet by mouth in the morning. ActiveCalcium Carbonate / vitamin D3 (10 sources)Start: 47-98-3131edro 1 tablet by mouth once dailyCalcium Carbonate- Vitamin D3 Active 1 TAB PO Daily November 17, 2023 12:00amCalcium Carbonate- Vitamin D3 500 mg-5 mcg (200 unit) tablet (5 sources)Start: 92-51-2172gmvy 1 tablet by mouth once dailyCalcium Carbonate- Vitamin D3 500 mg-5 mcg (200 unit) tablet Active 1 TAB PO Daily November 17, 2023 12:00amStart: 09-88-7206cgnl 1 tablet by mouth once dailyCalcium Carbonate- Vitamin D3 500 mg-5 mcg (200 unit) tablet Active 1 TAB PO Daily November 16, 2023 11:00pmcarvedilol 3.125 mg oral tablet (20 sources)alpha-Adrenergic Elpidio, beta-Adrenergic BlockerStart: 01-26-2025 End: 09-61-9861ktqi 1 tablet by mouth in the morningcarvedilol (Coreg) 3.125 MG tablet Take 3.125 mg by mouth in the morning and 3.125 mg in the evening. Take with meals. 04/24/2025 ActiveStart: 01-16-2023 End: 41-12-3918vods 1 tablet by mouth twice daily at mealtimeCarvedilol 6.25 mg Tablet Discontinued 6.25 MG PO Twice daily with meals 60 January 16, 2023 12:00am January 26, 2025 2:05pmcetirizine hydrochloride 10 mg oral tablet (2 sources)Histamine-1 Receptor AntagonistStart: 25-39-0217hkhr 1 tablet by mouth every twenty-four hoursCetirizine HCl 10 MG 1 tablet Orally Once a day for 30 days Mar, Activecholecalciferol 0.125 mg oral capsule (20 sources)Vitamin DStart: 01-14-2023 End: 80-12-5018izkt 1 capsule by mouth once dailycholecalciferol (Vitamin D-3) 125 mcg (5000 UT) capsule Take 1,000 Units by mouth once daily. 01/14/2023 12/09/2024 Discontinued (Discontinued by another clinician)Start: 01-14-2023 End: 50-49-0204aajt 1 capsule by mouth once dailyCholecalciferol (Vitamin D3) (Vitamin D3) 25 mcg (1,000 unit) Capsule Discontinued 25 MCG PO Daily January 14, 2023 12:00am November 17, 2023 12:55pm End: 03-98-8941bzgj 1 capsule by mouth in the morningcholecalciferol (Vitamin D- 3) 25 MCG (1000 UT) capsule Take 1,000 Units by mouth in the morning. 01/25/2025 Discontinued (Therapy completed)cholecalciferol, vitamin D3, (VITAMIN D3) 5,000 units capsule Take 1,000 Units by mouth daily. Activetake 1 capsule by mouth every twenty-four hoursVitamin D3 50 MCG (2000 UT) 1 capsule Orally Once a day Activeclopidogrel 75 mg oral tablet (20 sources)P2Y12 Platelet InhibitorStart: 10-26-2024 End: 07-66-9331gawl 1 tablet by mouth in the morningclopidogrel (Plavix) 75 MG tablet Take 75 mg by mouth in the morning. 10/26/2024 10/26/2025 Activedocusate sodium 100 mg oral capsule (20 sources)Start: 95-72-2750uatd 2 capsules by mouth twice daily as needed for constipationDocusate Sodium 100 mg Capsule Active 200 MG PO Twice daily as needed for Constipation 0 November 29, 2024 12:00am Complies with drug therapy Start: 97-91-8725zizo 2 capsules by mouth twice dailydocusate sodium (Colace) 50 mg capsule Take 2 capsules (100 mg) by mouth 2 times a day. 01/14/2023 Active Start: 01-14-2023 End: 63-90-0855eeos 1 capsule by mouth twice dailyDocusate Sodium 50 mg Capsule Discontinued 50 MG PO Twice daily January 14, 2023 12:00am November 8:18am take 1 capsule by mouth once daily as neededDocusate Sodium 50 MG 1 capsule as needed Orally Once a day ActiveDocusate Sodium TABS TAKE 1 TABLET DAILY DIRECTED. Quantity: 0 Refills: 0 Ordered: 05-Feb-2023 DOActiveestradiol 0.1 mg/ml vaginal cream (20 sources)EstrogenStart: 05-36-6195Pejolvnuz 0.01 % (0.1 mg/gram) cream Active 1 APPLICATOR VAGINAL Daily November 25, 2024 12:00am Complies with drug therapy Start: 91-11-9365kfiap 2 g vaginal route every twenty-four hours as needed estradiol (Estrace) 0.01 % (0.1 mg/gram) vaginal cream Insert 0.5 Applicatorfuls (2 g) into the vagina once daily as needed. 09/28/2024 ActiveStart: 01-29-2024 estradiol (Estrace) 0.1 MG/GM vaginal cream Indications: Vaginal atrophy 1 gram at bedtime for 2 weeks then twice weekly 42 g 3 01/29/2024 Activeirbesartan 75 mg oral tablet (1 source)Angiotensin 2 Receptor Elpidio End: 70-80-1349rsch 1 tablet by mouth once daily at bedtimeirbesartan (Avapro) 75 mg tablet Take 1 tablet (75 mg) by mouth once daily at bedtime. This was star law 11/26/24, at [facility]. She was Not taking at home. 12/03/2024 Discontinued (Stop Taking at Discharge)lidocaine 0.04 mg/mg medicated patch (4 sources)Antiarrhythmic, Amide Local AnestheticStart: 47-52-2969rskyv 1 dose topically once daily as needed for painLidocaine 4 % adhesive patch,medicated Active 1 PATCH TOPICAL Daily as needed for pain (scale score4-6) February 10, 2025 12:00am Complies with drug therapymelatonin 5 mg oral tablet (1 source)Start: 14-89-5522jkod 10 mg by mouth once daily as needed for sleep10 mg, oral, Nightly PRN, sleep, Starting on Barbara 12/01/24 at 132173 hr mirabegron 25 mg extended release oral tablet (20 sources)beta3-Adrenergic AgonistStart: 81-25-7260bbwq 1 tablet by mouth once dailyMirabegron (Myrbetriq) 25 mg tablet extended release 24 hr Active 25 MG PO Daily March 02, 2024 12:00amStart: 02-24-2024 End: 02-93-0032seyi 1 tablet by mouth every twenty-four hours at bedtime mirabegron ER (Myrbetriq) 25 MG 24 hr tablet Indications: Urge incontinence , Urinary frequency Take 1 tablet (25 mg) by mouth at bedtime Do not crush, chew, or split. 90 tablet 3 02/28/2025 02/28/2026 Active1 ml morphine sulfate 2 mg/ml prefilled syringe (1 source)Opioid AgonistStart: mg, intravenous, Every 1 hour PRN, Chest Pain, Starting on Thu12/02/24 at 1331, Phase II/On Unit, If ordered PRN for pain, nurse is permitted to administer this medication for higher pain scores based on patient preference? Yesnitroglycerin 0.4 mg sublingual tablet (20 sources)Nitrate VasodilatorStart: 09-00-4988Ypcmtucg on Thu11/30/24 at 1828, For 1 dose, Created by trever overrideStart: 11-19-2023 End: 94-31-4782gjymi 0.2 mg transdermal route every hour, then apply 1 dose transdermal route every twenty-four hoursNitroglycerin (Nitro-Dur) 0.2 mg/hr patch 24 hour Discontinued 1 PATCH TRANSDERML Daily 2023 12:00am April 25, 2024 10:50am allow nitrate-free interval of approx. 10- 12 hrs per 24-hour periodStart: 68-52-6492Eupzbnsittxhd 0.4 mg Tablet, Sublingual Active 0.4 MG SUBLINGUAL Q5M as needed for Chest Pain January 16, 2023 12:00am Complies with drug therapy End: 63-52-1365obyhe 0.1 mg transdermal route every hournitroglycerin (Nitrodur) 0.1 MG/HR patch Place 1 patch on the skin Daily 01/25/2025 Discontinued (Dose adjustment)Nitroglycerin 0.4 MG as directed Sublingual ActiveOndansetron (1 source)Serotonin-3 Receptor AntagonistStart: 42-54-6406dahc 1 tablet by mouth every eight hours as neededondansetron (Zofran) tablet 4 mgoxybutynin chloride 5 mg oral tablet (1 source)Cholinergic Muscarinic AntagonistStart: 56-94-4293fzev 5 mg by mouth twice daily5 mg, oral, 2 times daily, First dose on Thu11/29/24 at 2100 pantoprazole 40 mg delayed release oral tablet (20 sources)Proton Pump InhibitorStart: 45-27-4108nrdl 1 tablet by mouth before mealtimepantoprazole (ProtoNix) 40 MG EC tablet Take 40 mg by mouth in the morning. Take before meals. 10/28/2024 ActiveStart: 10-26-2024 End: 16-77-1180Lqwmpgzpyxqn 40 mg tablet,delayed release (DR/EC) Discontinued 40 MG PO Daily 90 October 28, 2024 12:55pm February 24, 2025 10:25am take on empty stomach, 30 minutes prior to bkfstpolyethylene glycol 3350 03480 mg powder for oral solution (1 source)Osmotic LaxativeStart: 53-52-5233vprtiqhzjoo sodium 80 mg oral tablet (20 sources)HMG-CoA Reductase InhibitorStart: 49-34-7192dilz 1 tablet by mouth every twenty-four hoursPravastatin Sodium 80 MG 1 tablet Orally Once a day for 100 days Sep, ActiveStart: 11-02-2017 End: 44-23-5746iggp 1 tablet by mouth at bedtimePravastatin 40 mg tablet Discontinued 1 TAB PO Bedtime November 02, 2017 12:00am January 16, 2023 1:36pm Pravastatin Sodium 40 MG 2 Orally daily for 90 days Activetake 1 tablet by mouth every twelve hoursPravastatin Sodium 40 MG 1 tablet Orally twice a day for 100 days ActiveVitamin D3 (3 sources)Start: 20-22-4635Covhwjh D3 Refills(s) 0 Start Date: 02/08/24 Status: Ordered{20 (nirmatrelvir 150 MG Oral Tablet) / 10 (ritonavir 100 MG Oral Tablet) } Pack [Paxlovid 5-Day] (1 source)Start: 46-86-1091ttmb 3 tablets by mouth every twelve hoursPaxlovid (300/100) 20 x 150 MG & 10 x 100MG 3 tablets Orally Twice a day for 5 day(s) Oct, Active Completed/Discontinued Medications MedicationDrug Class(es)DatesSig (Normalized)Sig (Original)acetaminophen 325 mg / HYDROcodone bitartrate 5 mg oral tablet (7 sources)Opioid AgonistStart: 02-03-2025 End: 01-44-4743kguf 1 tablet by mouth every six hours as needed for pain Hydrocodone-Acetaminophen 5-325 mg tablet Discontinued 1 TAB PO Q6H as needed for Pain 10 February 03, 2025 February 06, 2025 2:31pmamoxicillin 500 mg oral capsule (20 sources)Penicillin-class AntibacterialStart: 02-26-2024 End: 94-84-7076Iqcsiqcmxut 500 mg capsule Discontinued 2000 MG PO As Directed February 29, 2024 1:12pm March 02, 2024 10:05amStart: 02-26-2024 End: 37-80-4029Uxakpegogbm Discontinued 2000 MG PO As Directed February 29, 2024 1:12pm March 02, 2024 10:05amStart: 60-82-3404Otffytkcmry 500 MG Oral Capsule TAKE 4 CAPSULES BY MOUTH 30 minutes prior to dental appointment Quantity: 4 Refills: 0 Ordered: 02-Oct-2021 DO Start : 02-Oct-2021 Completeatenolol 25 mg oral tablet (20 sources)beta-Adrenergic BlockerStart: 14-22-7172exys 0.5 tablet by mouth once dailyAtenolol 25 MG Oral Tablet TAKE 1/2 (ONE-HALF) OF A TABLET BY MOUTH DAILY Quantity: 15 Refills: 0 Ordered: 01-May-2022 DO Start : 02-Apr-2022 CompleteStart: 12-13-2009 End: 03-48-3796bnzs 1 tablet by mouth at bedtimeAtenolol 25 mg Tablet Discontinued 25 MG PO Bedtime November 02, 2017 12:00am January 16, 2023 1:36pm Comment on above:Take one(1) tablet daily.5 ml bupivacaine hydrochloride 5 mg/ml injection (4 sources)Amide Local AnestheticStart: 01-10-2025 End: 72-41-4811enlscrydzym PF (Marcaine) 0.5 % injection 2 mLStart: 01-10-2025 End: mL, Injection, Once PRN Procedure, Starting on Thu01/10/25 at 1205, For 1 dosecefuroxime 500 mg oral tablet (3 sources)Cephalosporin AntibacterialStart: 02-12-2025 End: 95-42-3096boji 1 tablet by mouth twice dailyCefuroxime Axetil 500 mg tablet Discontinued 500 MG PO Twice daily February 12, 2025 12:00am February 24, 2025 10:24amciprofloxacin 500 mg oral tablet (2 sources)Quinolone AntimicrobialStart: 65-66-4147omzg 1 tablet by mouth once dailyCipro 500 mg Tab 500 mg = 1 tab(s), Oral, Daily, Take 1 tablet the day before the procedure and 1 tablet after the procedure, # 2 tab(s), Refills(s) 0, Pharmacy: [id number], 165, cm, 02/08/24 11:04:00 EDT, Height/Length Dosing, 65, kg, 02/08/24 11:04:00 EDT, Weight Dosing Start Date: 02/18/24 Status: Kzkbfut60 hr darifenacin 7.5 mg extended release oral tablet (1 source)Cholinergic Muscarinic AntagonistStart: 83-18-4688axssvtxrnkk hydrobromide(ENABLEX 7.5 MG 24 HR TAB) ONE IN AM AND 1 IN THE PM 0 07/08/2007 ActiveComment on above:ONE IN AM AND 1 IN THE PMdiclofenac sodium 0.01 mg/mg topical gel (20 sources)Nonsteroidal Anti-inflammatory DrugStart: 11-29-2024 End: 28-86-1007wwkll 4 g topically four times dailyDiclofenac Sodium 1 % Gel Discontinued 4 GM TOPICAL Four times daily 0 November 29, 2024 12:00am 2024 9:44amStart: 11-29-2024 End: 19-80-4901ywdwm 4 g topically four times dailyDiclofenac Sodium 1 % Gel Discontinued 4 GM TOPICAL Four times daily 0 November 29, 2024 12:00am 2024 9:44amStart: 24-80-6541zknnw 4 g topically four times dailyDiclofenac Sodium 1 % Gel Active 4 GM TOPICAL Four times daily 0 November 29, 2024 12:00am Start: 11-02-2017 End: 96-38-2626evyn 1 tablet by mouth twice dailyDiclofenac Sodium 75 mg Tablet,Delayed Release (Dr/Ec) Discontinued 75 MG PO Twice daily November 12:00am June 16, 2018 2:38pmfurosemide 40 mg oral tablet (20 sources)Loop DiureticStart: 12-23-2023 End: 81-80-9806wvaf 1 tablet by mouth once dailyFurosemide (Lasix) 40 mg tablet Discontinued 40 MG PO Daily December 23, 2023 12:00am December 23:82hh534 ml heparin sodium, porcine 100 unt/ml injection (10 sources)Unfractionated Heparin, Anti-coagulantStart: 11-29-2024 End: 75-28-49658-4,000 Units/hr (0-40 mL/hr), intravenous, Continuous, Starting on [...] -Contact provider for further orders. *If repeat isStart: 11-29-2024 End: 36-10-6288Mnckhwt(Porcine) In 0.45% Nacl 25,000 unit/250 mL Parenteral Solution Discontinued 30811 UNIT IV .Q24H 0 November 29, 2024 12:00am December 05, 2024 9:44amhydroCHLOROthiazide 25 mg oral tablet (20 sources)Thiazide DiureticStart: 98-44-8454Rztzvrekgumwnumibso 25 mg tablet Active 12.5 MG PO Daily February 09, 2025 12:00am On Hold: Hold until Thursday TAKE 1 TABLET BY MOUTH EVERY 48 HOURS Complies with drug therapyStart: 82-84-0085yodu 12.5 mg by mouth once daily12.5 mg, oral, Daily, First dose on Thu11/29/24 at 1615, On hold since Thu12/02/2024 at 0800 until manually unheld Start: 10-31-2024 End: 11-52-2705esfd 0.5 tablet by mouth once dailyhydroCHLOROthiazide (HYDRODiuril) 25 mg tablet Take 0.5 tablets (12.5 mg) by mouth once daily. 10/3104/11/2025 Discontinued (Side effects)Start: 03-29-2024 End: 53-71-4756Shiptolilcwergoghlj 25 mg tablet Discontinued 0 .ROUTE .COMPLEX October 31, 2024 9:19am February 09, 2025 11:02pm TAKE 1 TABLET BY MOUTH EVERY 48 HOURSStart: 04-57-4608ebhm 1 tablet by mouth every other day hydroCHLOROthiazide (HYDRODiuril) 25 MG tablet Take 25 mg by mouth every other day 03/09/2024 ActiveStart: 12-24-2023 End: 19-70-2844Frntvwamvmrnnvbxzsa 25 mg tablet Discontinued 25 MG PO Every 48 hours December 24, 2023 12:00am March 29, 2024 9:38amhydroCHLOROthiazide 12.5 mg / irbesartan 150 mg oral tablet (8 sources)Thiazide Diuretic, Angiotensin 2 Receptor BlockerStart: 12-13-2009 End: 06-03-9006pdxu 1 tablet by mouth once dailyIrbesartan-Hydrochlorothiazide 150-12.5 mg tablet Discontinued 1 TAB PO Daily November 02, 2017 12:00am January 14, 2023 11:55amComment on above:Take 1 tablet dailyhydroCHLOROthiazide 12.5 mg / telmisartan 80 mg oral tablet (20 sources)Thiazide Diuretic, Angiotensin 2 Receptor BlockerStart: 11-17-2023 End: 15-95-2627onot 1 tablet by mouth once dailyTelmisartan-Hydrochlorothiazid (Micardis Hct) 80-12.5 mg tablet Discontinued 1 TAB PO Daily November 17, 2023 12:00am December 24, 2023 9:54am On Hold: hypotensionStart: 01-14-2023 End: 38-69-4018cwku 1 tablet by mouth once dailyTelmisartan-Hydrochlorothiazid 40-12.5 mg tablet Discontinued 1 TAB PO Daily January 14, 2023 12:00am November 17, 2023 12:54pmStart: 05-29-2022 End: 12-20-2957zshs 1 tablet by mouth in the morningtelmisartan- hydrochlorothiazid (MIcarDIS HCT) 40-12.5 mg tablet Take 1 tablet by mouth early in themorning.. Patient states, she hasn't been taking this med. She is unsure if she was suppose to still take it. 10/11/2023 11/29/2024 Discontinued (Entered in Error)hydrOXYzine hydrochloride 25 mg oral tablet (20 sources)AntihistamineStart: 09-02-2023 End: 33-99-0703lmbg 1 tablet by mouth once daily at bedtimeHydroxyzine Hcl 25 mg tablet Discontinued 25 MG PO Daily at bedtime October 20, 2023 12:00am November 012023 2:04pmtake 1 tablet by mouth once at bedtimehydrOXYzine HCl 25 MG 1 tablet Orally q HS for 30 days ActiveIrbesartan-Hydrochlorothiazide (14 sources)Start: 11-02-2017 End: 24-06-3840ieos 1 tablet by mouth once dailyIrbesartan-Hydrochlorothiazide Discontinued 1 TAB PO Daily November 02, 2017 12:00am January 14, 2023 11:55am Irbesartan-Hydrochlorothiazide 150-12.5 mg tablet (5 sources)Start: 11-02-2017 End: 03-55-1957oobw 1 tablet by mouth once dailyIrbesartan-Hydrochlorothiazide 150-12.5 mg tablet Discontinued 1 TAB PO Daily November 02, 2017 12:00am January 14, 2023 11:55amStart: 11-02-2017 End: 59-43-2947kuaq 1 tablet by mouth once dailyIrbesartan-Hydrochlorothiazide 150-12.5 mg tablet Discontinued 1 TAB PO Daily November 01, 2017 11:00pm January 14, 2023 10:55amLORazepam 0.5 mg oral tablet (19 sources)BenzodiazepineStart: 05-17-2024 End: 83-00-3402RTNrawjem (Ativan) 0.5 MG tablet Indications: Chronic low back pain, unspecified back pain laterality, unspecified whether sciatica present Take 1 tablet (0.5 mg) by mouth See administration instructions for 1 dose 1 by mouth 1 hour prior to MRI 1 tablet 05/17/2024 01/25/2025 Discontinued (Therapy c ompleted)losartan potassium 25 mg oral tablet (20 sources)Angiotensin 2 Receptor BlockerStart: 12-04-2024 End: 37-19-1533btem 1 tablet by mouth once dailyLosartan 25 mg tablet Active 25 MG PO Daily December 05, 2024 12:00am On Hold: Hold until BMP on ThursdayComplies with drug therapyStart: 69-08-6502clxh 1 tablet by mouth once dailylosartan (Cozaar) 25 mg tablet Indications: Essential hypertension Take 1 tablet (25 mg) by mouth once daily. 30 tablet 3 12/04/2024 ActiveStart: 09-54-9436xlok 25 mg by mouth once daily25 mg, oral, Daily, First dose [place] Thu12/02/[place] [address] ml methylPREDNISolone acetate 40 mg/ml injection (12 sources)CorticosteroidStart: 01-10-2025 End: 17-49-5206ojqxwaBHANLEBomcmp acetate (DEPO-Medrol) injection 40 mgStart: 01-10-2025 End: 84-49-880201 mg, Intra-articular, Once PRN Procedure, Starting on Thu01/10/25 at 1205, For 1 doseStart: 05-10-2024 End: 14-88-5607eqnjwnQOADKMIgezvz acetate (DEPO-Medrol) injection 40 mgStart: 05-10-2024 End: 06-25-501435 mg, Injection, Once PRN Procedure, Starting on Thu05/10/24 at 1350, For 1 doseStart: 04-29-2024 End: 82-57-2218ogadyaQKCPWTYbfevo acetate (DEPO-Medrol) injection 40 mgStart: 04-29-2024 End: 70-66-712622 mg, Injection, Once PRN Procedure, Starting on Thu04/29/24 at 1611, For 1 doseMolnupiravir (15 sources)Start: 04-12-2024 End: 54-32-5353phmy 1 capsule by mouth every twelve hoursMolnupiravir 200 mg capsule Discontinued 800 MG PO Every 12 hours 40 April 12, 2024 12:00am November 25, 2024 4:03pmStart: 82-54-4202lzfr 1 capsule by mouth every twelve hoursMolnupiravir 200 mg capsule Active 800 MG PO Every 12 hours 40 April 12, 2024 12:00amStart: 89-51-7029xmmi 1 capsule by mouth every twelve hours Molnupiravir 200 mg capsule Active 800 MG PO Every 12 hours 40 April 11, 2024 11:00pmStart: 11-77-4732eyqz 800 mg by mouth every twelve hoursMolnupiravir Active 800 MG PO Every 12 hours 40 April 12, 2024 12:00am multivitamins(DAILY VITAMIN TAB) (1 source)Start: 12-13-2009 End: 83-55-6409diwakbaiszzuj(DAILY VITAMIN TAB)nitrofurantoin, macrocrystals 25 mg / nitrofurantoin, monohydrate 75 mg oral capsule (20 sources)Nitrofuran AntibacterialStart: 07-01-2024 End: 85-50-8591zehx 1 capsule by mouth every twelve hours at mealtime Nitrofurantoin Monohyd/M-Cryst 100 mg capsule Discontinued 100 MG PO Every 12 hours 10 September 09, 2024 3:56pm November 25, 2024 4:03pm must administer with a meal/foodStart: 01-29-2024 End: 02-96-3562xfik 1 capsule by mouth twice daily at mealtimeNitrofurantoin Monohyd/M-Cryst (Macrobid) 100 mg capsule Discontinued 100 MG PO Twice daily 10 January 29, 2024 12:00am March 02, 2024 10:05am must administer with a meal/foodnystatin 100 unt/mg topical ointment (20 sources)Polyene AntifungalStart: 01-11-2024 End: 96-47-0645anlkfsda (Mycostatin) ointment Indications: Cutaneous Candidiasis Apply thin film BID prn irritation 30 g 1 01/11/2024 01/25/2025 Discontinued (Therapy completed)nystatin 100 unt/mg / triamcinolone acetonide 0.001 mg/mg topical ointment (8 sources)Polyene Antifungal, CorticosteroidStart: 09-28-2024 End: 19-06-9155gokggjae-triamcinolone (Mycolog II) ointment Indications: Vulvar irritation Apply topically 2 (two)times a day 15 g 2 09/28/2024 01/25/2025 Discontinued (Therapy completed)Omeprazole (20 sources)Proton Pump InhibitorStart: 02-08-2024 End: 40-70-0302Xdbryeenpz Magnesium (PRILOSEC PO) Take by mouth 02/08/2024 01/25/2025 Discontinued (Therapy completed)Start: 05-39-3919Hgjsaryaef Magnesium (PRILOSEC PO) Take by mouth 02/08/2024 ActiveStart: 02-56-2201Kyzyomhy Oral, Daily, Refills(s) 0 Start Date: 02/08/24 Status: OrderedStart: 11-02-2017 End: 09-48-7042pjho 1 tablet by mouth once dailyOmeprazole Magnesium (Prilosec Otc) 20 mg Tablet,Delayed Release (Dr/Ec) Discontinued 20 MG PO Daily November 02, 2017 12:00am October 26, 2024 10:11pmStart: 01-16-2009 End: 00-66-9221xdrggsufjw(PRILOSEC 20 MG CAP) Take one(1) capsule daily. 0 01/16/2009 Active End: 84-87-8678smyi 10 mg by mouth once dailyomeprazole (PriLOSEC) [address] capsule Take 10 mg by mouth once daily. 11/29/2024 Discontinued (Entered in Error)take 1 tablet by mouth once dailyPriLOSEC OTC 20 MG 1 tablet Orally Once a day ActivePriLOSEC 20 MG CPDR 1/2 capsule daily Quantity: 0 Refills: 0 Ordered: 04-Jun-2022 DO ActiveComment on above:Take one(1) capsule daily.Omeprazole Magnesium (Prilosec Otc) 20 mg Tablet,Delayed Release (Dr/Ec) (19 sources)Start: 11-02-2017 End: 01-20-5128tgni 1 tablet by mouth once dailyOmeprazole Magnesium (Prilosec Otc) 20 mg Tablet,Delayed Release (Dr/Ec) Discontinued 20 MG PO Daily November 02, 2017 12:00am October 26, 2024 10:11pmStart: 80-66-5628ijhe 1 tablet by mouth once dailyOmeprazole Magnesium (Prilosec Otc) 20 mg Tablet,Delayed Release (Dr/Ec) Active 20 MG PO Daily November 01, 2017 11:00pmStart: 67-63-5138pshf 1 tablet by mouth once dailyOmeprazole Magnesium (Prilosec Otc) 20 mg Tablet,Delayed Release (Dr/Ec) Active 20 MG PO Daily November 02, 2017 12:00am12 hr ranolazine 500 mg extended release oral tablet (20 sources)Anti-anginalStart: 12-02-2024 End: 98-76-0685ufkh 1 tablet by mouth twice dailyRanolazine 500 mg tablet extended release 12 hr Discontinued 500 MG PO Twice daily December 05, 2024 12:00am March 01, 2025 6:06pmregadenoson (Lexiscan) injection 0.4 mg (2 sources)Start: 11-10-2023 End: .4 mg, intravenous, Once, On Thu11/10/23 at 0930, For 1 dose rosuvastatin calcium 10 mg oral tablet (1 source)HMG-CoA Reductase InhibitorStart: 93-50-3262bzkxfzahzbkr calcium(CRESTOR 10 MG TAB)1000 ml sodium chloride 9 mg/ml injection (1 source)Start: 12-02-2024 End: 58-45-5706rrzp 100 mL intravenously every dzsc527 mL/hr, intravenous, Continuous, Starting on Thu12/02/24 at 0130, For 1 day, Preprocedure sulfamethoxazole 800 mg / trimethoprim 160 mg oral tablet (1 source)Dihydrofolate Reductase Inhibitor Antibacterial, Sulfonamide AntimicrobialStart: 32-56-0558Mznuxzmubymkupdn-Trimethoprim 800-160 MG Oral Tablet Quantity: 10 Refills: 0 Ordered: 22-Apr-2022 DO Start : 22-Apr-2022 Completetamsulosin (3 sources)alpha-Adrenergic Elpidio End: 18-79-7849ckspjuiwmw HCl (TAMSULOSIN ORAL) Take 70 mg by mouth every 7 days. 10/26/2024 Discontinued (Enteredin Error)tamsulosin HCl (TAMSULOSIN ORAL) Take 70 mg by mouth every 7 days. Activetake 70 mg by mouth every weektamsulosin HCl (FLOMAX ORAL) Take 70 mg by mouth once a week. ActiveTc-99m tetrofosmin (Myoview) injection 10 millicurie (2 sources)Start: 11-10-2023 End: millicurie, intravenous, Once in imaging, Starting on Thu11/10/23 at 0806, For 1 dose, Pwtqpmlggk56 to 90 minutes prior to imaging unless otherwise indicated.Tc-99m tetrofosmin (Myoview) injection 30 millicurie (2 sources)Start: 11-10-2023 End: millicurie, intravenous, Once in imaging, Starting on Thu11/10/23 at 0914, For 1 dose, Jdtmriakro14 to 90 minutes prior to imaging unless otherwise indicated.telmisartan 20 mg oral tablet (20 sources)Angiotensin 2 Receptor BlockerStart: 03-14-2024 End: 83-95-5680ehyb 1 tablet by mouth once dailyTelmisartan 20 mg tablet Discontinued 0 .ROUTE .COMPLEX March 14, 2024 8:49am December 05, 2024 9:44am TAKE 1 TABLET BY MOUTH DAILYStart: 12-24-2023 End: 60-66-9140xvzd 1 tablet by mouth once dailyTelmisartan 20 mg tablet Discontinued 20 MG PO Daily December 24, 2023 12:00am March 1448:49am terconazole 4 mg/ml vaginal cream (1 source)Azole AntifungalStart: 47-88-9781Juxliojrafo 0.4 % Vaginal Cream Quantity: 45 Refills: 0 Ordered: 26-Dec-2021 DO Start : 50-Vip-6208Rlnzvxso ticagrelor 90 mg oral tablet (20 sources)Start: 01-16-2023 End: 29-59-5040gcng 1 tablet by mouth twice dailyTicagrelor (Brilinta) 90 mg Tablet Discontinued 90 MG PO Twice daily 180 January 16, 2023 12:00am October 26, 2024 10:06pmTriamcinolone (20 sources)CorticosteroidStart: 35-68-1259Mitvury -40 mg Sep,Start: 71-95-3321Bhfttlh -40 mg Apr,Vitamin D3 CAPS (3 sources)Vitamin D3 CAPS TAKE 1 CAPSULE Daily Quantity: 0 Refills: 0 Ordered: 05-Feb-2023 DO Active Problems Active Problems Problem ClassificationProblemDateDocumented DateEpisodic/ChronicAbdominal pain (16 sources)Right lower quadrant pain; Translations: [Right lower quadrant pain] 40-96-1281WcjqcfnkPsuks bronchitis (3 sources)Acute bronchitis; Translations: [Acute bronchitis due to other specified organisms]EpisodicAcute myocardial infarction (20 sources)Myocardial infarction; Translations: [ST elevation (STEMI) myocardial infarction of unspecified site]Onset: hronic Acute posthemorrhagic anemia (2 sources)Acute posthemorrhagic anemiaEpisodicAllergic reactions (1 source)Urticaria, unspecifiedEpisodicCardiac dysrhythmias (4 sources)Palpitations; Translations: [Palpitations]Onset: 625160-45-9624 EpisodicChronic kidney disease (20 sources)Chronic kidney disease stage 3A ; Translations: [Stage 3a chronic kidney disease]ChronicConditions associated with dizziness or vertigo (4 sources)Dizziness and giddiness; Translations: [Dizziness and giddiness] EpisodicCongestive heart failure; nonhypertensive (20 sources)Congestive heart failure stage C; Translations: [Congestive heart failure, unspecified]Onset: 199122-78-0523NtznqyjIwyaszn on above:Echo: LVEF 60%, RVSP 30-40, , MR, TR - 01/2024,Coronary atherosclerosis and other heart disease (20 sources)Arteriosclerotic vascular disease; Translations: [Cardiovascular disease, unspecified]Onset: 32-74-9068VlrbulrGwzbsdl on above:Echo: LVEF 60%, RVSP 30-40, , MR, TR - CI/stent - 11/1999,PCI/stent LCX, PTCA distal LAD - 01/2023,PCI/stent LAD - 11/2023,PCI/stent ostial and distal LAD - 12/2024Echo: LVEF 60%, RVSP 30-40, , MR, TR - 01/2024,PCI/stent - 11/1999,PCI/stent LCX, PTCA distal LAD -01/2023,PCI/stent LAD - 11/2023,PCI/stent ostial and distal LAD - 12/2024Deficiency and other anemia (20 sources)Anemia; Translations: [Anemia, unspecified]16-60-0324Sinyzkmg Deficiency and other anemia (6 sources)Anemia, unspecified; Translations: [Anemia, unspecified]10-20-2023 EpisodicDisorders of lipid metabolism (20 sources)Hyperlipidemia; Translations: [Other and unspecified hyperlipidemia] Onset: 26-45-0547JrxknpfT Codes: Fall (15 sources)Accidental fall ; Translations: [Unspecified fall, initial encounter]Onset: 226384-79-7240KxlwiyibVtavejytzz disorders (20 sources)Gastro-esophageal reflux disease with esophagitis; Translations: [Gastroesophageal reflux disease with esophagitis without hemorrhage]02-08-2024 ChronicEssential hypertension (20 sources)Benign essential hypertension; Translations: [Benign essential hypertension]Onset: 56-12-2553DppirzwJianeacgg hypertension (1 source)Essential hypertensionOnset: 29-34-5839Alrmj and electrolyte disorders (20 sources)Hypervolemia; Translations: [Fluid overload, unspecified]Onset: 112162-20-9217DihfmxaoFyphtqlbfumfn symptoms and ill-defined conditions (4 sources)Unspecified urinary incontinence; Translations: [Urge incontinence] Onset: 95-55-0004IzaqwygVslbt valve disorders (20 sources)Aortic valve stenosis; Translations: [Nonrheumatic aortic (valve) stenosis]Onset: 765582-54-4337BmzervnSrsxunr on above:Echo: JEANA 1.5cm, gradient 24/14, velocity 248 - 6/2023Hypertension with complications and secondary hypertension (18 sources)Hypertensive urgency ; Translations: [Hypertensive urgency]Onset: 696006-04-6318VrsjcyrZivkbctvappmm and screening for infectious disease (4 sources)Encounter for screening for human papillomavirus (HPV); Translations: [Contact with and (suspected)exposure to other viral communicable diseases] Onset: 95-87-2413VekgoppaXpjqjjl and fatigue (20 sources)Fatigue; Translations: [Other malaise and fatigue]Onset: 11-30-2023 61-84-6085OhfqhviiSynbhazorm disorders (8 sources)Atrophy of vagina; Translations: [Postmenopausal atrophic vaginitis] 36-59-3284VkduyfoDkjbmdk (5 sources)Onychomycosis due to dermatophyte ; Translations: [Tinea unguium] 42-56-4730BrjgizdrXoacns and vomiting (14 sources)Nausea; Translations: [Nausea]37-53-2118MjexnhlkCydtqmrspovd breast conditions (1 source)MastodyniaEpisodicNonspecific chest pain (20 sources)Chest pain, unspecified; Translations: [Chest pain]Onset: 03-11-2017 Resolved: 283904-60-9087QqpdjbukHzajxxubzrc deficiencies (20 sources)Vitamin D deficiency; Translations: [Vitamin D deficiency, unspecified]Onset: 393405-86-8817YiqfjmwYdwglybwmbcsyy (20 sources)Osteoarthritis of hip; Translations: [Unilateral primary osteoarthritis, right hip]Onset: 019505-80-2180OwjbgpfVgojsogdpauj (20 sources)Senile osteoporosis; Translations: [Age-related osteoporosis without current pathological fracture]Onset: 41-68-3042LnutmvsZhbkl acquired deformities (20 sources)Lumbar spondylolisthesis; Translations: [Spondylolisthesis, lumbar region]81-88-6383RaiaippzBsiad acquired deformities (4 sources)Spondylolisthesis, lumbar region; Translations: [Spondylolisthesis, lumbar region]Onset: 87-02-0287RpfyoimvZxdls aftercare (3 sources)Long-term current use of drug therapy; Translations: [Other assisted (current) drug therapy]EpisodicOther aftercare (2 sources)Long-term current use of anticoagulant; 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]Onset: 35-98-3183YixhdegiInyyc aftercare (2 sources)Patient encounter status; Translations: [Encounter for follow-up examination after completed treatment for conditions other than malignant neoplasm]Onset: 048898-12-7052OdkalcohRfltl aftercare (1 source)Encounter for follow-up examination after completed treatment for conditions other than malignant neoplasm; Translations: [Encounter for follow-up examination after completed treatment for conditionsother than malignant neoplasm]Onset: 42-54-1330VfujwifaKmatt circulatory disease (3 sources)Orthostatic hypotension; Translations: [Orthostatic hypotension] Onset: 301388-39-4379LxohvkbbUupyn connective tissue disease (20 sources)History of repair of hip joint; Translations: [Presence of left artificial hip joint]Onset: 518038-78-6791RzkutatYpfmm connective tissue disease (3 sources)Presence of right artificial hip joint; Translations: [Total hip replacement Prosthesis]ChronicOther connective tissue disease (13 sources)History of total hip arthroplasty; Translations: [Presence of unspecified artificial hip joint]Onset: 325839-06-7648UysqphkTonujkc on above:rightOther connective tissue disease (1 source)Presence of unspecified artificial hip joint; Translations: [Hip joint replacement]37-99-2538MovxwsvHrfub connective tissue disease (2 sources)History of total replacement of right hip joint; Translations: [Presence of right artificial hip joint]66-66-3223HtudqltJvbhs connective tissue disease (20 sources)Trochanteric bursitis of right hip; Translations: [Trochanteric bursitis, right hip]EpisodicOther connective tissue disease (20 sources)Trochanteric bursitis of left hip; Translations: [Trochanteric bursitis, left hip]EpisodicOther connective tissue disease (4 sources)Myalgia, unspecified site; Translations: [Myalgia and myositis, unspecified]25-49-1812FmpamrgpBijsx connective tissue disease (1 source)Pain in right arm; Translations: [Pain in right arm]80-03-8814Xpgyzkwd Other connective tissue disease (10 sources)Pain in toe; Translations: [Pain in right toe(s)]57-82-7448Wkwigkxh Other diseases of bladder and urethra (10 sources)Urethral caruncle; Translations: [Urethral caruncle]Onset: 29-87-0385HxgfvcinHsjcx diseases of bladder and urethra (2 sources)Polyp of iitpgmp42-14-2150CvaojuimNsfwc diseases of veins and lymphatics (20 sources)Venous insufficiency of leg; Translations: [Venous insufficiency (chronic) (peripheral)]93-99-3029JocsptyuEdpgm diseases of veins and lymphatics (11 sources)Venous insufficiency (chronic) (peripheral); Translations: [Venous (peripheral) insufficiency, unspecified]37-32-0180WntgwgeyRvsdu ear and sense organ disorders (1 source)Impacted cerumen of bilateral ears; Translations: [Impacted cerumen, bilateral]27-42-4183MaxkjtkjZlazr female genital disorders (3 sources)Noninflammatory disorder of the vagina; Translations: [Other specified noninflammatory disorders ofvagina]EpisodicOther female genital disorders (2 sources)Vulval irritation; Translations: [Other specified noninflammatory disorders of vulva and perineum]31-44-9979EhkafefyHsdiy fractures (4 sources)Fracture of rib; Translations: [Fracture of one rib, unspecified side, initial encounter for closedfracture]51-19-8369HdgwpzdbFtlev gastrointestinal disorders (1 source)Diarrhea, unspecifiedEpisodicOther hematologic conditions (4 sources)Protein electrophoresis abnormal; Translations: [Other specified abnormalities of plasma proteins]85-23-3263RrpxyqhmJzlfm inflammatory condition of skin (6 sources)Lichen simplex chronicus; Translations: [Lichen simplex chronicus] 19-50-8909PfpivcigUyqdr injuries and conditions due to external causes (3 sources)History of fall; Translations: [History of falling]EpisodicOther injuries and conditions due to external causes (7 sources)Contusion of rib; Translations: [Other specified injuries of thorax, initial encounter]19-07-4025KgighuiuBqlms injuries and conditions due to external causes (1 source)Other specified injuries of thorax, initial encounter; Translations: [Other specified injuries of thorax, initial encounter]Onset: 24-34-3258Ubspzide Other lower respiratory disease (9 sources)Dyspnea; Translations: [Other respiratory abnormalities]11-10-2023 EpisodicOther lower respiratory disease (1 source)Shortness of breath; Translations: [Shortness of breath]Onset: 49-17-3522YbatimzaIwbim lower respiratory disease (1 source)Dyspnea, unspecified; Translations: [Dyspnea, unspecified]Onset: 69-01-3165CmxcgcoxZtiuj nervous system disorders (20 sources)Chronic pain; Translations: [Other chronic pain]ChronicOther nervous system disorders (1 source)Other chronic pain; Translations: [Other chronic pain]Onset: 35-20-5368ZcagvqxRqdwj nervous system disorders (15 sources)Abnormal gait; Translations: [Unsteadiness on feet]07-19-2024 EpisodicOther nervous system disorders (2 sources)Unsteadiness on feet; Translations: [Abnormality of gait]Onset: 469518-26-8909QriurepjZggie nervous system disorders (13 sources)Unsteady when standing; Translations: [Unsteadiness on feet] 87-49-6810AjyyysxlMcibe non-traumatic joint disorders (2 sources)Arthritis of right qiwu68-87-4090QdnctawPzvef non-traumatic joint disorders (20 sources)Hip pain; Translations: [Pain in unspecified hip]Onset: 12-18-2009 33-53-5115UwoxaxmjGeyet non-traumatic joint disorders (3 sources)Shoulder joint pain; Translations: [Pain in right shoulder]Episodic Other non-traumatic joint disorders (2 sources)Pain in right knee; Translations: [Pain in joint, lower leg] 97-12-9823VgrepcufYbvtn nutritional; endocrine; and metabolic disorders (6 sources)Overweight in adulthood with body mass index of 25 or more but less than 30; Translations: [Overweight]Onset: 086099-72-6324BdhpuhfjIpnpp nutritional; endocrine; and metabolic disorders (3 sources)Loss of appetite; Translations: [Anorexia]EpisodicOther nutritional; endocrine; and metabolic disorders (3 sources)Overweight; Translations: [Overweight]EpisodicOther screening for suspected conditions (not mental disorders or infectious disease) (20 sources)Encounter for screening mammogram for malignant neoplasm of breast; Translations: [Encounter for screening for malignant neoplasm of cervix]Onset: 64-66-0553QbdsrlffCijes skin disorders (5 sources)Dystrophia unguium; Translations: [Nail dystrophy]14-21-3461Mssqrzeq Other skin disorders (2 sources)Granulation of tissue; Translations: [Granulomatous disorder of the skin and subcutaneous tissue, unspecified]20-98-5654PkzwxgwmCncwizxwzo and visceral atherosclerosis (20 sources)Peripheral vascular disease; Translations: [Peripheral vascular disease, unspecified]ChronicProlapse of female genital organs (17 sources)Cystocele; Translations: [Cystocele, unspecified]Onset: 02-08-2024 ChronicRehabilitation care; fitting of prostheses; and adjustment of devices (8 sources)Patient encounter status; Translations: [Encounter for fitting and adjustment of other specified devices]49-49-6707NdkvtstMsdpbgfg codes; unclassified (3 sources)Preventive procedure; Translations: [Encounter for other specified prophylactic measures]EpisodicResidual codes; unclassified (3 sources)Localized edema; Translations: [Localized edema]EpisodicResidual codes; unclassified (9 sources)Body mass index 20-24 - normal; Translations: [Body mass index (BMI) 24.0-24.9, adult]Onset: 508732-47-1703WqxdqsshAgpbpctk codes; unclassified (1 source)PainOnset: 18-32-4138BtlxcglkOeczcrbm codes; unclassified (1 source)Pain, unspecified; Translations: [Pain, unspecified]Onset: 05-18-2024 EpisodicResidual codes; unclassified (2 sources)Body mass index (BMI) 24.0-24.9, adult; Translations: [Body mass index (BMI) 24.0-24.9, adult]Onset: 54-27-0580PtmcokkhKbtqdvzqzgt; intervertebral disc disorders; other back problems (20 sources)Degeneration of lumbosacral intervertebral disc; Translations: [Other intervertebral disc degeneration, lumbosacral region]Onset: 01-16-2009 47-30-3417XafsyrpCallurw on above:uses pain clinic for pain controlSuperficial injury; contusion (20 sources)Contusion of left chest wall; Translations: [Contusion of left front wall of thorax, initial encounter]53-06-4063UsukljmcOizfuxrscltm (2 sources)Chest pain, unspecified / R07.9(ICD-9)Onset: 75-61-8693Hghxzfssffxb (1 source)Athscl heart disease of [place] coronary artery w/o ang pctrs / I25.10(ICD-9)Onset: 54-91-2013Isdxkzgvuryi (1 source)Family hx of ischem heart dis and oth dis of the circ sys / Z82.49(ICD-9)Onset: 79-10-7150Xuezsggyoqaa (1 source)Other fatigue / R53.83(ICD-9)Onset: 06-15-4012Pqubrljpacdb (1 source)Pure hypercholesterolemia, unspecified / E78.00(ICD-9)Onset: 20-71-2406Mcikciewnskb (1 source)Coronary angioplasty status / Z98.61(ICD-9)Onset: 03-11-2017 Unclassified (2 sources)Drug therapy domhmnc15-34-6222Vositgiwrgcs (1 source)Patient encounter miryvz19-33-5344Lonvnpeisawt (2 sources)Low back pain, unspecified; Translations: [Low back pain, unspecified]Onset: 39-65-5597Vdestgjydnht (10 sources)A [facility] screening has identified you as FRAIL or [...] Four Ways to Beat the Frailty Risk [email or web address] [email or web address] (1 source)Acute coronary microvascular dysfunction (Multi); Translations: [Acute coronary microvascular dysfunction (Multi)]Onset: 31-33-3846Xmyjjzztuofs (3 sources)The office is currently closed. Please call the office for a follow-up appointment.Unclassified (3 sources)You have been scheduled for a follow up appointment for the following date and time, please call to reschedule if needed.Viral infection (8 sources)Disease caused by 2019-nCoV; Translations: [COVID-19]04-12-2024 Episodic Past or Other Problems Problem ClassificationProblemDateDocumented DateEpisodic/ChronicChronic kidney disease (5 sources)Chronic kidney diseaseCoronary atherosclerosis and other heart disease (4 sources)Presence of coronary angioplasty implant and graft; Translations: [Percutaneous transluminal coronary angioplasty status]Onset: 06-15-2023 61-61-0719PcwqpywsMeqwisxlhq disorders (2 sources)Esophageal disordersGenitourinary symptoms and ill-defined conditions (20 sources)Dysuria; Translations: [Dysuria]Onset: 917270-86-9502Uobsfeoo Heart valve disorders (20 sources)Systolic murmur; Translations: [Undiagnosed cardiac murmurs]Onset: 05-19-2023 Resolved: 491550-06-2261HlsydlbnVocklbgqn or stenosis of precerebral arteries (6 sources)Occlusion and stenosis of multiple and bilateral cerebral arteries; Translations: [Occlusion and stenosis of bilateral carotid arteries] Resolved: 20-38-4502FlhffvvSvjeo bone disease and musculoskeletal deformities (20 sources)Osteopenia; Translations: [Other specified disorders of bone density and structure, unspecified site]Onset: 469698-27-7013XdhxfareAyuyh connective tissue disease (20 sources)Ischial bursitis ; Translations: [Other bursitis of hip, unspecified hip]Onset: 504218-37-8024LezfcsllShgdi non-traumatic joint disorders (20 sources)Pain of right wrist; Translations: [Pain in right wrist]Onset: 776777-62-4704NyhwnicfCgeny nutritional; endocrine; and metabolic disorders (12 sources)Abnormal weight loss; Translations: [Abnormal weight loss] Resolved: 00-65-9454BftbltueOakwx nutritional; endocrine; and metabolic disorders (2 sources)Body mass index (BMI) 25.0-25.9, adult; Translations: [Body mass index (BMI) 25.0-25.9, adult]Onset: 13-99-3958BplfmuftOyittrgm codes; unclassified (1 source)Asymptomatic menopausal state; Translations: [ASYMPTOMATIC MENOPAUSAL STATE]Onset: 06-02-1395CuuefutoKkvljtos codes; unclassified (3 sources)Postmenopausal state; Translations: [Asymptomatic menopausal state] Onset: 43-73-7955WevtgwyvEntcyicq codes; unclassified (12 sources)Never smoked tobacco; Translations: [Other specified health status] Onset: 083272-28-8431ImknqvasFzvaztos codes; unclassified (2 sources)Other specified health status; Translations: [Other specified health status]Onset: 95-37-1385WfxpgyzgVhqkkbzoyyv; intervertebral disc disorders; other back problems (20 sources)Thoracic and lumbosacral neuritis; Translations: [Thoracic or lumbosacral neuritis or radiculitis, unspecified]Onset: EpisodicUnclassified (4 sources)Never smoked tobacco; Translations: [Never a smoker]Unclassified (1 source)Polyuria R35.89Unclassified (19 sources)Onset: 06-15-2023 Resolved: 116034-94-0075Zqljebcspbqu (1 source)Acute right-sided low back pain without sciatica M54.50Unclassified (1 source)CAD, needs angioplastyOnset: 49-73-8505Sixyavdraclc (1 source)Acute coronary microvascular dysfunction (Multi); Translations: [Acute coronary microvascular dysfunction (Multi)]Onset: 11-29-2024 Results Test NameValueInterpretationReference RangeFacilityXR Hip - right 3 Viewson 05-31-2025 Imaging Result: AP and Lateral Right hip: AP and lateral of right hip showed acceptable position and alignment of right total hip arthroplasty. There was no evidence of loosening of the acetabular cup or femoral stem. osteopenia Femoral head was well centered in the acetabular liner without evidence of asymmetric or accelerated wear. There was no gross evidence of fracture and/or dislocation. Impression: Unremarkable right total hip arthroplasty. [facility] HealthcareRadiology Study observation (narrative)[facility] HealthcareCholesterol in LDL Calc [Mass/Vol]Ordered By: Jamia Ndiaye on 54-20-9050Iznygjvtzdb in LDL [Mass/Vol]123.0 mg/dLSumma Health [facility] CampusComment on above:<100 mg/dl YGDLGVS394-637 mg/dl NEAR OR ABOVE RPLZTLN834- 159 mg/dl BORDERLINE QKUV859-134 mg/dl HIGH>190 mg/dl VERY HIGHCholesterol in VLDL Calc [Mass/Vol]Ordered By: Jamia Ndiaye on 23-18-1186Emuicnsiwov in VLDL [Mass/Vol]30.2 mg/dLSumma Health Akron CampusGlomerular filtration rate (GFR) estimation in non- AmericanOrdered By: Jamia Ndiaye on 23-81-4729KER/1.73 sq M.predicted among non-blacks MDRD (S/P/Bld) [Vol rate/Area]mL/min/{1.73_m2}>=60 mL/min/1.73m 2FMercy Health [facility] Laboratory - Chemistry and Chemistry - challengeOrdered By: Jamia Ndiaye on 05-51-4115VCT [Catalytic activity/Vol]18 U/B53-46ClemelrgkSumma Health [facility]ron CampusAST [Catalytic activity/Vol]16 U/H37-27UymoailgnSumma Health [facility] Campus Calcium [Mass/Vol]9.6 mg/dL8.5-10.1FMercy Health St. Elizabeth [facility] HospitalChloride [Moles/Vol]106 mmol/A46-868PvzhhxsqnSumma Health Akron CampusCholesterol [Mass/Vol]203 mg/dLHigh<=200[facility] CampusCholesterol in HDL [Mass/Vol]50 mg/qM55-92YamnqcrvfSumma Health Akron CampusComment on above:> or =60 mg/dl - LOW CARDIOVASCULAR RISK<40 mg/dl - HIGH CARDIOVASCULAR RISKCO2 [Moles/Vol]28.1 mmol/L21.0-32.0[facility] CampusCreatinine [Mass/Vol]0.88 mg/dL0.55-1.02[facility] CampusGFR/1.73 sq M.predicted MDRD (S/P/Bld) [Vol rate/Area]mL/min/{1.73_m2}>=60 mL/min/1.73m 2 [facility] CampusGlucose [Mass/Vol]104 mg/bK96-797SaoqjjwbcSumma Health Akron CampusPotassium [Moles/Vol]4.3 mmol/L3.5-5.1FTwin City Hospitalodium [Moles/Vol]141 mmol/E558-881IsdcpryafSumma Health Akron CampusTriglyceride [Mass/Vol]151 mg/dLHigh<=150[facility] Urea nitrogen [Mass/Vol]19.0 mg/dLHigh7.0-18.0[facility] Urea nitrogen/Creatinine [Mass ratio]21.6 mg/mgSumma Health [facility] Campus Serum or plasma anion gap determinationOrdered By: Jamia Ndiaye on 90-21-8120Gntvm gap [Moles/Vol]11.2 mmol/LFTwin City Hospitalerum or plasma total cholesterol/high density lipoprotein (HDL) cholesterol mass rat Ordered By: Jamia Ndiaye on 53-16-1232Nxnovtaudyx.total/Cholesterol in HDL [Mass ratio]4.1 {ratio}[facility] CampusComment on above:3.3 - 4.4 LOW RISK4.4 - 7.1 AVERAGE RISK7.1 - 11.0 MODERATE RISK>11.0 HIGH RISK Estimated glomerular filtration rate (GFR) non- AmericanOrdered By: Ivan Barreto on 20-47-1199PKV/1.73 sq M.predicted among non-blacks MDRD (S/P/Bld) [Vol rate/Area]mL/min/{1.73_m2}>=60 mL/min/1.[address]m [address] [place], [place] [address]Laboratory - Chemistry and Chemistry - challengeOrdered By: Ivan Barreto on 99-69-4962Nyysmmf [Mass/Vol]9.0 mg/dL8.5-10.1FMercy Health St. Elizabeth Youngstown HospitalChloride [Moles/Vol]103 mmol/J33-135JwmoxbzdiSumma Health [facility] CampusCO2 [Moles/Vol]28.1 mmol/L21.0-32.0[facility] Creatinine [Mass/Vol]0.85 mg/dL0.55-1.02[facility] GFR/1.73 sq M.predicted MDRD (S/P/Bld) [Vol rate/Area]mL/min/{1.73_m2}>=60 mL/min/1.[address]m [address] [place], [place] [address]Glucose [Mass/Vol]99 mg/iJ87-613 [facility] CampusPotassium [Moles/Vol]4.4 mmol/L3.5-5.1FTwin City Hospitalodium [Moles/Vol]141 mmol/H393-755EsnoxcbodSumma Health Akron CampusUrea nitrogen [Mass/Vol]17.0 mg/dL7.0-18.0[facility] CampusUrea nitrogen/Creatinine [Mass ratio]20.0 mg/mgOhioHealth Berger Hospitalerum or plasma anion gap determinationOrdered By: Ivan Barreto on 00-00-5577Qriwl gap [Moles/Vol]14.3 mmol/LFMercy Health St[address] [facility] A1C with Estimated Average Gluon 57-07-9142Sxuxkrj [Mass/Vol]117 mg/dLNoCone Health Alamance Regional Physician GroupComment on above:Result Comment: PERFORMED BY: [place] [address] PATHOLOGIST HRIS COORDINATOR NEHA AMES M.D.Performed By: #### CMP, MG, CBC #### [facility] [address] [id number] USAAlanine aminotransferase [Enzymatic activity/volume] in Serum or PlasmaOrdered By: Louis Oliveira on 80-56-6145JTX [Catalytic activity/Vol]14 U/LNormal7-52[facility] CampusComment on above: Performed By: #### CMP, MG, CBC #### [place] [address] USAAlbumin [Mass/volume] in Serum or Plasma by Bromocresol green (BCG) dye binding methoOrdered By: Louis Oliveira on 13-30-5676Tapfbcr BCG dye [Mass/Vol]3.9 g/dL3.5-5.7FMercy Health St. Elizabeth [facility] HospitalAlkaline phosphatase [Enzymatic activity/volume] in Serum or PlasmaOrdered By: Louis Oliveira on 73-53-0276VON [Catalytic activity/Vol]33 U/UFqo58-810OqaelvoouSumma Health [facility] CampusComment on above:Performed By: #### CMP, MG, CBC #### [facility] [address] [place], [place] [address] USAAppearance of UrineOrdered By: Louis Oliveira on 02-10-2025 Appearance (U)ClearNormalClearSumma Health [facility] CampusComment on above: Order Comment: Name Collection Type:: Clean-Voided MidstreamPerformed By: #### CK, HS TROP #### [facility] [address] [place] [address] USAAspartate aminotransferase [Enzymatic activity/volume] in Serum or PlasmaOrdered By: Louis Oliveira on 24-40-9564ETY [Catalytic activity/Vol]20 U/WBclsqt84-56GmbrmwcocSumma Health [facility] CampusComment on above: Performed By: #### CMP, MG, CBC #### [facility] [address] [place], [place] [address] USABacteria [Presence] in Urine by AutomatedOrdered By: Louis Oliveira on 92-60-7164Uiiracyu Auto Ql (U)Rare [HPF]None SeenSumma Health Akron CampusBasic Metabolic Panelon 78-01-8242Avtcf gap [Moles/Vol] 12.2 mmol/LNormal6.0-15.0The [facility] Physician GroupComment on above:Performed By: #### CMP, MG, CBC #### [place] [address] USACalcium [Mass/Vol]9.4 mg/dLNormal8.6-10.3The [facility] Physician GroupComment on above:Performed By: #### CMP, MG, CBC #### [place] [address] USACO2 [Moles/Vol]27.4 mmol/HHnbhxr38.0-31.0The [facility] Physician GroupComment on above:Performed By: #### CMP, MG, CBC #### [place] [address] USACreatinine [Mass/Vol]0.74 mg/dLNormal0.60-1.20The [facility] Physician GroupComment on above:Performed By: #### CMP, MG, CBC #### [place] [address] USACreatinine Clr Calc Zoncsmhs68.26NormalThe [facility] Physician GroupComment on above:Result Comment: PERFORMED BY: [place] [address] PATHOLOGIST HRIS COORDINATOR NEHA AMES M.D.Performed By: #### CMP, MG, CBC #### [place] [address] USAPerformed By: #### CBC, LIPASE, CMP #### [place] [address] USAGFR/1.73 sq M.predicted MDRD (S/P/Bld) [Vol rate/Area] mL/min/{1.73_m2}NormalThe [facility] Physician GroupComment on above:Performed By: #### CMP, MG, CBC #### [place] [address] USAPerformed By: #### CBC, LIPASE, CMP #### [place] [address] USAGlucose [Mass/Vol]119 mg/aHOors33-913Adh [facility] Physician GroupComment on above:Result Comment: Random Glucose Reference Range is dependent on time and content of last meal. Glucose of more than 200 mg/dL in a nonstressed, ambulatory subject supports the diagnosis of Diabetes Mellitus. ADA recommended reference rangePerformed By: #### CMP, MG, CBC #### [place] [address] USAPotassium [Moles/Vol]3.6 mmol/LNormal3.5-5.1The [facility] Physician GroupComment on above:Performed By: #### CMP, MG, CBC #### [place] [address] USASodium [Moles/Vol]127 mmol/MCry189-121Kej [facility] Physician GroupComment on above:Performed By: #### CMP, MG, CBC #### [place] [address] USABasophils [#/volume] in Blood by Automated countOrdered By: Louis Oliveira on 66-95-8679Araagfyug (Bld) [#/Vol]0.0 10*3/uLNormal0.0-0.2 [facility] CampusComment on above:Result Comment: PERFORMED BY: [place] [address] PATHOLOGIST HRIS COORDINATOR NEHA AMES M.D.Performed By: #### CMP, MG, CBC #### [place] [address] USABasophils/100 leukocytes in Blood by Automated count Ordered By: Louis Oliveira on 32-81-4114Xicsikuea/100 WBC (Bld)0.2 %Normal. [facility] CampusComment on above:Performed By: #### CMP, MG, CBC #### [facility] [address] [id number] USABilirubin Test strip Ql (U)Ordered By: Louis Oliveira on 00-79-3533Pqrmlwhnd Ql (U)NegativeNegativeSumma Health [facility] Campus Bilirubin.total [Mass/volume] in Serum or PlasmaOrdered By: Louis Oliveira on 92-29-1730Smuqrftnm [Mass/Vol]0.8 mg/dLNormal0.3-1.0[facility] CampusComment on above:Performed By: #### CMP, MG, CBC #### [facility] [address] [place] [address] USABlood estimated average glucose determination by estimation from glycated hemoglobinOrdered By: Rashawn Mahmood on 61-73-7656Klkkboh glucose Estimated from glycated hemoglobin (Bld) [Mass/Vol]117 mg/dLSumma Health Akron CampusCalcium [Mass/volume] in Serum or PlasmaOrdered By: Louis Oliveira on 92-59-2062Zpsboxd [Mass/Vol]8.9 mg/dLNormal8.6-10.3FMercy Health St. Elizabeth [facility] HospitalComment on above:Performed By: #### CMP, MG, CBC #### [facility] [address] [place] [address] USACarbon dioxide, total [Moles/volume] in Serum or Plasma Ordered By: Louis Oliveira on 19-43-6374BE7 [Moles/Vol]25.4 mmol/OKdxuhd66.0-31.0 [facility] CampusComment on above:Performed By: #### CMP, MG, CBC #### [facility] [address] [id number] USAChloride [Moles/volume] in Serum or PlasmaOrdered By: Louis Oliveira on 55-39-7242Taxqcnio [Moles/Vol]94 mmol/XHcz67-584XbtreeingSumma Health [facility]ron CampusComment on above:Performed By: #### CMP, MG, CBC #### [facility] [address] [id number] USAChloride [Moles/volume] in Serum or PlasmaOrdered By: Angie Davidson on 17-81-9176Zaijoyup [Moles/Vol]91 mmol/IEdh89-832UvffpoafySumma Health Akron CampusComment on above:Performed By: #### CMP, MG, CBC #### [facility] [address] [place] [address] USAPerformed By: #### CBC, LIPASE, CMP #### [facility] [address] [place] [address] USAColor of Urine by AutoOrdered By: Louis Oliveira on 83-61-4622Akqim (U)YellowNormalYellowSumma Health Akron CampusComment on above:Order Comment: Name Collection Type:: Clean-Voided MidstreamPerformed By: #### CK, HS TROP #### [place] [address] USAComplete Blood Count Auto Diffon 07-23-2599Kcmw Corpuscular HGB Conc35.3 g/nGBvsw60.0-35.0The [facility] Physician GroupComment on above:Performed By: #### CMP, MG, CBC #### [place] [address] USANRBC%0.2 /100{WBC}Normal0-0.5The [facility] Comment on above:Performed By: #### CMP, MG, CBC #### [place] [address] USAWhite Blood Count8.7 [CFU]/mLNormal3.8-11.6The [facility] Physician GroupComment on above:Performed By: #### CMP, MG, CBC #### [facility] [address] [place] [address] USAComprehensive Metabolic Panelon 91-30-9531Quxsxef [Mass/Vol]3.9 g/dLNormal3.5-5.7The [facility] Physician GroupComment on above: Performed By: #### CMP, MG, CBC #### [place] [address] USACreatinine Clr Calc Jqvptwll16.26NormalThe [facility] Physician GroupComment on above:Performed By: #### CMP, MG, CBC #### [facility] [address] [place] [address] USAGFR/1.73 sq M.predicted MDRD (S/P/Bld) [Vol rate/Area] mL/min/{1.73_m2}NormalThe [facility] Physician GroupComment on above:Performed By: #### CMP, MG, CBC #### [facility] [address] [place] [address] USASodium [Moles/Vol]129 mmol/QRjk841-853[facility] Physician GroupComment on above:Performed By: #### CMP, MG, CBC #### [place] [address] USACreatinine [Mass/volume] in Serum or PlasmaOrdered By: Louis Oliveira on 91-43-9746Ibnxrjrcer [Mass/Vol]0.68 mg/dLNormal0.60-1.20 [facility] CampusComment on above:Performed By: #### CMP, MG, CBC #### [facility] [address] [place] [address] USADipstick and Microscopicon 83-10-2536Bbntjgbo,UrineRare NormalNone SeenThe [facility] Physician GroupComment on above:Order Comment: Name Collection Type:: Clean-Voided MidstreamPerformed By: #### CK, HS TROP #### [place] [address] USABilirubin,UrineNegativeNormalNegativeThe [facility] Physician GroupComment on above:Order Comment: Name Collection Type:: Clean- Voided MidstreamPerformed By: #### CK, HS TROP #### [place] [address] USAGlucose Ql (U)NormalNormalNormalThe [facility] Physician GroupComment on above:Order Comment: Name Collection Type:: Clean-Voided MidstreamPerformed By: #### CK, HS TROP #### [place] [address] USAHyaline Casts,UrineNoneNormal0-8The [facility] Physician GroupComment on above:Order Comment: Name Collection Type:: Clean-Voided MidstreamPerformed By: #### CK, HS TROP #### [place] [address] USAMucus,UrineRareNormalThe [facility] Physician GroupComment on above:Order Comment: Name Collection Type:: Clean-Voided MidstreamResult Comment: PERFORMED BY: [place] [address] PATHOLOGIST HRIS COORDINATOR NEHA AMES M.D.Performed By: #### CK, HS TROP #### [place] [address] USANitrite,UrineNegativeNormalNegativeThe [facility] Physician GroupComment on above:Order Comment: Name Collection Type:: Clean-Voided MidstreamPerformed By: #### CK, HS TROP #### [place] [address] USAOccult Blood,Urine2+NormalNegativeThe [facility] Physician GroupComment on above:Order Comment: Name Collection Type:: Clean-Voided MidstreamResult Comment: PERFORMED BY: [place] [address] PATHOLOGIST HRIS COORDINATOR NEHA AMES M.D.Performed By: #### CK, HS TROP #### [place] [address] USARBC,Mlyoi8-5Jggcbg7-4Gxh [facility] Physician GroupComment on above:Order Comment: Name Collection Type:: Clean-Voided MidstreamPerformed By: #### CK, HS TROP #### [place] [address] USASpecificy [place],Urine>1.919Cmux8.001-1.030The [facility] Physician GroupComment on above:Order Comment: Name Collection Type:: Clean- Voided MidstreamPerformed By: #### CK, HS TROP #### [place] [address] USASquamous Epithelial Cell,Yweng2-5Myqqun6-4Ork [facility] Physician GroupComment on above:Order Comment: Name Collection Type:: Clean- Voided MidstreamPerformed By: #### CK, HS TROP #### [facility] [address] [place] [address] USAUrobilinogen,UrineNormalNormalNormalThe [facility] Physician GroupComment on above:Order Comment: Name Collection Type:: Clean- Voided MidstreamPerformed By: #### CK, HS TROP #### [place] [address] USAWBC,Arjlo76-99Sszqok6-4Psu [facility] Comment on above:Order Comment: Name Collection Type:: Clean-Voided Midstream Performed By: #### CK, HS TROP #### [place] [address] USAEosinophils [#/volume] in Blood by Automated countOrdered By: Louis Oliveira on 80-42-7187Jzzhwpomujn (Bld) [#/Vol]0.0 10*3/uLNormal0.0-0.45 [facility] CampusComment on above:Performed By: #### CMP, MG, CBC #### [facility] [address] [place] [address] USAEosinophils/100 leukocytes in Blood by Automated count Ordered By: Louis Oliveira on 06-32-2055Pkfvhwrgnrs/100 WBC (Bld)0.4 %Normal. [facility] CampusComment on above:Performed By: #### CMP, MG, CBC #### [facility] [address] [place] [address] USAEpithelial cells.squamous [#/area] in Urine sediment by Automated countOrdered By: Louis Oliveira on 14-57-0498Rzodvhbtsp cells.squamous Auto (Urine sed) [#/Area]1-2 [HPF]0-2FMercy Health St. [facility] Erythrocyte distribution width [Ratio] by Automated countOrdered By: Louis Oliveira on 96-77-3247Mkahnilryfw distribution width (RBC) [Ratio]13.3 %Normal 11.9-15.3FMercy Health St. Elizabeth [facility]stown HospitalComment on above:Performed By: #### CMP, MG, CBC #### [facility] [address] [place] [address] USAErythrocytes [#/area] in Urine sediment by Automated count Ordered By: Louis Oliveira on 57-65-5395WXW Auto (Urine sed) [#/Area]5-9 [HPF]High 0-4FMercy Health St. Elizabeth [facility] HospitalErythrocytes [#/volume] in Blood by Automated countOrdered By: Louis Oliveira on 82-00-9272FNM (Bld) [#/Vol]3.95 10*6/uLNormal3.60-5.00[facility] CampusComment on above: Performed By: #### CMP, MG, CBC #### [facility] [address] [place] [address] USAGlucose [Mass/volume] in Serum or PlasmaOrdered By: Louis Oliveira on 18-01-4106Kvpoxva [Mass/Vol]95 mg/sVGbjnda70-553PwhrpaszgSumma Health Akron CampusComment on above:ADA recommended reference rangeRandom Glucose Reference Range is dependent on time and content of last meal. Glucose of more than 200 mg/dL in a nonstressed, ambulatory subject supports the diagnosisof Diabetes Mellitus.Result Comment: Random Glucose Reference Range is dependent on time and content of last meal. Glucose of more than 200 mg/dL in a nonstressed, ambulatory subject supports the diagnosis of Diabetes Mellitus. ADA recommended reference rangePerformed By: #### CMP, MG, CBC #### [facility] [address] [place] [address] USAGlucose [Mass/volume] in Urine by Test stripOrdered By: Louis Oliveira on 77-74-5698Rbdjpor Test strip (U) [Mass/Vol]Normal mg/dLNormal [facility] CampusHematocrit [Volume Fraction] of Blood by Automated countOrdered By: Louis Oliveira on 45-68-6381Srermxpykm (Bld) [Volume fraction]36.5 %Rxbhsk06.0-46.4FMercy Health St. Elizabeth [facility] HospitalComment on above: Performed By: #### CMP, MG, CBC #### [facility] [address] [id number] USAHemoglobin A1c/Hemoglobin.total in BloodOrdered By: Rashawn Mahmood on 60-59-3079ThD1z (Bld) [Mass fraction]5.7 %High4.3-5.6FMercy Health St. Elizabeth [facility] HospitalComment on above:Increased risk for diabetes: 5.7 - 6.4diabetes: >6.4glycemic control for adults with diabetes: <7.0Result Comment: Increased risk for diabetes: 5.7 - 6.4 diabetes: >6.4 glycemic control for adults with diabetes: <7.0Performed By: #### CMP, MG, CBC #### [facility] [address] [id number] USAHemoglobin Test strip Ql (U)Ordered By: Louis Oliveira on 59-80-6697Wixpwhxpdd Ql (U)2+HighNegativeSumma Health [facility] Campus Hemoglobin [Mass/volume] in BloodOrdered By: Louis Oliveira on 02-10-2025 Hemoglobin (Bld) [Mass/Vol]12.9 g/bPGqslcl22.8-15.4FMercy Health St. Elizabeth [facility] HospitalComment on above:Performed By: #### CMP, MG, CBC #### [place] [id number] USAHyaline casts [#/area] in Urine sediment by Automated countOrdered By: Louis Oliveira on 76-10-2821Sbzyesy casts Auto (Urine sed) [#/Area]None [LPF]0-8[facility] CampusImmunofixation,Serumon 78-88-7085Uuekpjvgraszuh, SerumCommentNormal.The [facility] Comment on above:Result Comment: No monoclonality detected.Performed By: #### CMP, MG, CBC #### [facility] [address] [place] [address] USAImmunoglobulin A, Yqsqe472 mg/bAJepjow50-268Zjk [facility] Physician GroupComment on above:Performed By: #### CMP, MG, CBC #### [facility] [address] [place] [address] USAImmunoglobulin G536 mg/zPOqqrhp948-4623Sxm [facility] Physician GroupComment on above:Performed By: #### CMP, MG, CBC #### [facility] [address] [place] [address] USAImmunoglobulin M, Serum68 mg/zOOtawqd01-995Tij [facility] CenterComment on above:Result Comment: Performed at: - [facility] [id number] [employer] Officer: Selwyn Daniel PhD, Phone: [phone] By: #### CMP, MG, CBC #### [place] [address] USAKetones [Presence] in Urine by Test stripOrdered By: Louis Oliveira on 36-97-5243Nxnxfmc Ql (U)2+NormalNegHocking Valley Community HospitalComment on above:Order Comment: Name Collection Type:: Clean- Voided MidstreamPerformed By: #### CK, HS TROP #### [place] [address] USALeukocyte esterase [Presence] in Urine by Test strip Ordered By: Louis Oliveira on 59-65-9555Yokypwkyx esterase Test strip Ql (U)2+ NormalNegHocking Valley Community HospitalComment on above:Order Comment: Name Collection Type:: Clean-Voided MidstreamPerformed By: #### CK, HS TROP #### [place] [address] USALeukocytes [#/area] in Urine sediment by Automated count Ordered By: Louis Oliveira on 99-59-7352NYN Auto (Urine sed) [#/Area]20-49 [HPF] High0-4FMercy Health St. Elizabeth Youngstown HospitalLeukocytes [#/volume] corrected for nucleated erythrocytes in Blood by Automated counOrdered By: Louis Oliveira on 78-47-2540YCD corrected for nucl RBC Auto (Bld) [#/Vol]8.7 10*3/uL3.8-11.6 [facility] CampusLeukocytes [#/volume] in Blood by Automated countOrdered By: Louis Oliveira on 71-94-7274ATB (Bld) [#/Vol]8.7 10*3/uLNormal 3.8-11.6FMercy Health St. Elizabeth Youngstown HospitalComment on above:Performed By: #### CMP, MG, CBC #### [facility] [address] [place] [address] USALymphocytes [#/volume] in Blood by Automated countOrdered By: Louis Oliveira on 60-54-4088Espcufjygqe (Bld) [#/Vol]1.9 10*3/uLNormal1.00-4.8 [facility] CampusComment on above:Performed By: #### CMP, MG, CBC #### [facility] [address] [place] [address] USALymphocytes/100 leukocytes in Blood by Automated count Ordered By: Louis Oliveira on 89-47-0543Drlkiwxmgip/100 WBC (Bld)21.8 %Normal. [facility] CampusComment on above:Performed By: #### CMP, MG, CBC #### [facility] [address] [place] [address] [Entitic mass] by Automated countOrdered By: Louis Oliveira on 43-62-2307JVR (RBC) [Entitic mass]32.6 ljDzsseo77.7-34.3FMercy Health St. Elizabeth Youngstown HospitalComment on above:Performed By: #### CMP, MG, CBC #### [facility] [address] [place] [address] Auto (RBC) [Mass/Vol]Ordered By: Louis Oliveira on 59-39-3364FDZQ (RBC) [Mass/Vol]35.3 g/rLMzkg19.0-35.0[facility] CampusMCV [Entitic volume] by Automated countOrdered By: Louis Oliveira on 11-23-1453KPY (RBC) [Entitic vol]92.2 rAJpzlbb09-164NgkjruchmSumma Health Akron CampusComment on above:Performed By: #### CMP, MG, CBC #### [facility] [address] [place] [address] USAMagnesium [Mass/volume] in Serum or PlasmaOrdered By: Louis Oliveira on 23-28-9588Ypmvvsmfi [Mass/Vol]1.9 mg/dLNormal1.9-2.7FMercy Health St. Elizabeth Youngstown HospitalComment on above:Result Comment: PERFORMED BY: [place] [address] PATHOLOGIST HRIS COORDINATOR NEHA AMES M.D.Performed By: #### CMP, MG, CBC #### [facility] [address] [place] [address] USAMonocytes [#/volume] in Blood by Automated countOrdered By: Louis Oliveira on 31-24-6356Acjhwmbzj (Bld) [#/Vol]0.9 10*3/uLHigh0.0-0.8 [facility] CampusComment on above:Performed By: #### CMP, MG, CBC #### [facility] [address] [place] [address] USAMonocytes/100 leukocytes in Blood by Automated count Ordered By: Louis Oliveira on 69-57-8993Qjuumjwsn/100 WBC (Bld)10.3 %Normal. [facility] CampusComment on above:Performed By: #### CMP, MG, CBC #### [facility] [address] [place] [address] USAMucus [Presence] in Urine by AutomatedOrdered By: Louis Oliveira on 65-11-4132Hjhqt Auto Ql (U)Rare [LPF][facility] Neutrophils [#/volume] in Blood by Automated countOrdered By: Louis Oliveira on 69-75-0754Xzyrtcsrmzf (Bld) [#/Vol]5.8 10*3/uLNormal1.8-7.7FMercy Health St. Elizabeth Youngstown HospitalComment on above:Performed By: #### CMP, MG, CBC #### [facility] [address] [place], [place] [address] USANeutrophils/100 leukocytes in Blood by Automated count Ordered By: Louis Oliveira on 00-09-9400Hguozmqeekw/100 WBC (Bld)67.3 %Normal. [facility] CampusComment on above:Performed By: #### CMP, MG, CBC #### [facility] [address] [place] [address] USANitrite Test strip Ql (U)Ordered By: Louis Oliveira on 22-92-4515Vpcevgr Ql (U)NegativeNegativeSumma Health Akron CampusNo Panel InformationOrdered By: Rashawn Mahmood on 50-69-1928Thnujow Electrophoresis M-SpikeComment: g/dLNot ObservedSumma Health Akron CampusComment on above:SPE shows asymmetrical gamma. Suggest serum REE and free lightchain analysis for further evaluation.Protein Electrophoresis NoteComment.[facility] CampusComment on above:Protein electrophoresis scan will follow via computer,mail, or medical housekeeper delivery.Performed at: [place] [id number] Director: Selwyn Daniel PhD, Phone: [phone] Panel InformationOrdered By: Louis Oliveira on 58-93-3924Itltxxcnw GFR (CKD-EPI)> 60.0 mL/MinSumma Health Akron CampusPharmacy Creatinine Clearance (Chem46.26[facility] CampusUrine Lsebiemvwk392 mosm 250-900[facility] CampusNucleated erythrocytes [Presence] in Blood by Automated countOrdered By: Louis Oliveira on 49-23-7048Fjqopvgsp RBC Auto Ql (Bld)0.2 /100{WBC}0-0.5FMercy Health St. Elizabeth Youngstown HospitalOsmolality, Urineon 23-86-7620Kcgrejdqly, Arxbc305 czvkMqzmwu479-635Jwu [facility] Comment on above:Result Comment: PERFORMED BY: [facility] [address] [place] [address] PATHOLOGIST HRIS COORDINATOR NEHA AMES M.D.Performed By: #### CK, HS TROP #### [facility] [address] [place] [address] USAPlatelet mean volume [Entitic volume] in Blood by Automated countOrdered By: Louis Oliveira on 97-52-8480Mgxantpi mean volume (Bld) [Entitic vol]7.8 fLNormal6.3-10.7FMercy Health St. Elizabeth Youngstown HospitalComment on above:Performed By: #### CMP, MG, CBC #### [facility] [address] [place] [address] USAPlatelets [#/volume] in Blood by Automated countOrdered By: Louis Oliveira on 55-16-5920Aitfomeaf (Bld) [#/Vol]220 10*3/pSYdwhbj874-614 [facility] CampusComment on above:Performed By: #### CMP, MG, CBC #### [facility] [address] [place] [address] USAPotassium [Moles/volume] in Serum or PlasmaOrdered By: Louis Oliveira on 99-01-4347Enajbbigq [Moles/Vol]3.4 mmol/LLow3.5-5.1FMercy Health St. Elizabeth Youngstown HospitalComment on above:Performed By: #### CMP, MG, CBC #### [facility] [address] [place] [address] USAProtein Electrophoresis, Serumon 02-10-2025 Lvxzp-6-Kxyjhqjn2.2 g/dLNormal0.0-0.4The [facility] Physician GroupComment on above:Performed By: #### CMP, MG, CBC #### [facility] [address] [place] [address] HHWYvdgv-2-Clkvszrc2.7 g/dLNormal0.4-1.0The [facility] Physician GroupComment on above:Performed By: #### CMP, MG, CBC #### [facility] [address] [place] [address] USABeta Globulin0.9 g/dLNormal0.7-1.3The [facility] Physician GroupComment on above:Performed By: #### CMP, MG, CBC #### [facility] [address] [place] [address] USAGamma Globulin0.6 g/dLNormal0.4-1.8The [facility] Physician GroupComment on above:Performed By: #### CMP, MG, CBC #### [facility] [address] [place] [address] USAM-SpikeComment:NormalNot ObservedThe [facility] Physician GroupComment on above:Result Comment: SPE shows asymmetrical gamma. Suggest serum REE and free light chain analysis for further evaluation.Performed By: #### CMP, MG, CBC #### [place] [address] USASPE-NoteCommentNormal.The [facility] Physician GroupComment on above:Result Comment: Protein electrophoresis scan will follow via computer, mail, or medical housekeeper delivery. Performed at: - [facility] [id number] [employer] Officer: Selwyn Daniel PhD, Phone: [phone] PERFORMED BY: [place] [address] PATHOLOGIST HRIS COORDINATOR NEHA AMES M.D.Performed By: #### CMP, MG, CBC #### [place] [address] USAProtein [Mass/volume] in Serum or PlasmaOrdered By: Louis Oliveira on 21-75-3539Rdhlukz [Mass/Vol]6.2 g/dLLow6.4-8.9[facility] CampusComment on above:Performed By: #### CMP, MG, CBC #### [place] [address] USAProtein [Mass/volume] in Urine by Test stripOrdered By: Louis Oliveira on 50-52-4219Lcerzap (U) [Mass/Vol]30 mg/dLNormalNegativeSumma Health Akron CampusComment on above:Order Comment: Name Collection Type:: Clean-Voided MidstreamPerformed By: #### CK, HS TROP #### [place] [address] USASerum globulin measurement (mass/volume)Ordered By: Rashawn Mahmood on 50-94-6289Chrbbylb (S) [Mass/Vol]2.4 g/dLNormal2.2-3.9[facility] CampusComment on above:Performed By: #### CMP, MG, CBC #### [address] [place] [address] USASerum globulin measurement by calculation (mass/volume) Ordered By: Louis Oliveira on 70-63-8102Clyaixqh (S) [Mass/Vol]2.3 g/dLNormal [facility] CampusComment on above:Performed By: #### CMP, MG, CBC #### [facility] [address] [place] [address] USASerum or plasma IgA measurement (mass/volume)Ordered By: Rashawn Mahmood on 08-15-2666QrO [Mass/Vol]150 mg/qC77-985YacefxqgjOhioHealth Berger Hospitalerum or plasma IgG measurement (mass/volume)Ordered By: Rashawn Mahmood on 95-92-9346FwT [Mass/Vol]536 mg/xIKol533-1648GejqiprmwSumma Health [facility] Campus Serum or plasma IgM measurement (mass/volume)Ordered By: Rashawn Mahmood on 60-11-4249LrG [Mass/Vol]68 mg/gO47-245InowpfifbSumma Health Akron CampusComment on above:Performed at: [facility] [employer] - [facility] [id number] Director: Selwyn Daniel PhD, Phone: [phone] or plasma albumin measurement (mass/volume)Ordered By: Rashawn Mahmood on 28-31-9310Tslkgmu [Mass/Vol]3.2 g/dLNormal2.9-4.4FMercy Health St. Elizabeth Youngstown HospitalComment on above:Performed By: #### CMP, MG, CBC #### [facility] [address] [place] [address] USASerum or plasma albumin/globulin mass ratioOrdered By: Rashawn Mahmood on 33-74-4679Tvhsglh/Globulin [Mass ratio]1.3 {ratio}Normal0.7-1.7 [facility] CampusComment on above:Performed By: #### CMP, MG, CBC #### [facility] [address] [place] [address] USASerum or plasma albumin/globulin mass ratioOrdered By: Louis Oliveira on 91-00-4204Jjdzhwz/Globulin [Mass ratio]1.7 {ratio}Normal [facility] CampusComment on above:Performed By: #### CMP, MG, CBC #### [facility] [address] [place] [address] USASerum or plasma alpha 1 globulin measurement by electrophoresis (mass/volume)Ordered By: Rashawn Mahmood on 46-79-6214Svpda 1 globulin Elph [Mass/Vol]0.2 g/dL0.0-0.4FTwin City Hospitalerum or plasma alpha 2 globulin measurement by electrophoresis (mass/volume)Ordered By: Rashawn Mahmood on 75-96-3381Fforv 2 globulin Elph [Mass/Vol]0.7 g/dL0.4-1.0 [facility] Berger Hospitalerum or plasma anion gap determinationOrdered By: Louis Oliveira on 21-85-1424Wfzif gap [Moles/Vol]13.0 mmol/LNormal6.0-15.0 [facility] CampusComment on above:Performed By: #### CMP, MG, CBC #### [facility] [address] [place] [id number] USASerum or plasma beta globulin measurement by electrophoresis (mass/volume)Ordered By: Rashawn Mahmood on 69-58-6204Vdex globulin Elph [Mass/Vol]0.9 g/dL0.7-1.3FTwin City Hospitalerum or plasma gamma globulin measurement by electrophoresis (mass/volume)Ordered By: Rashawn Mahmood on 55-91-1129Wrfgq globulin Elph [Mass/Vol]0.6 g/dL0.4-1.8OhioHealth Berger Hospitalerum total protein measurementOrdered By: Rashawn Mahmood on 76-60-1428Haiwtsc [Mass/Vol]5.6 g/dLNormal6.0-8.5FMercy Health St. Elizabeth Youngstown HospitalComment on above:Performed By: #### CMP, MG, CBC #### [facility] [address] [place] [id number] USASodium [Moles/volume] in Serum or PlasmaOrdered By: Louis Oliveira on 56-76-8433Tuysrn [Moles/Vol]131 mmol/GGas905-728PuhwywzbpSumma Health Akron CampusComment on above:Result Comment: PERFORMED BY: [place] [address] PATHOLOGIST HRIS COORDINATOR NEHA AMES M.D.Performed By: #### CMP, MG, CBC #### [place] [address] USASodium [Moles/volume] in UrineOrdered By: Louis Oliveira on 57-55-6644Wnrkff (U) [Moles/Vol]50 mmol/LNormalSumma Health Akron Campus Comment on above:No reference range establishedResult Comment: No reference range established PERFORMED BY: [place] [address] PATHOLOGIST HRIS COORDINATOR NEHA AMES M.D.Performed By: #### CK, HS TROP #### [place] [address] USASpecific gravity Test strip (U) [Rel density]Ordered By: Louis Oliveira on 10-65-6127Nywivsvy gravity (U) [Rel density]>1.050High 1.001-1.030[facility] CampusTroponin I High Sensitivityon 46-06-4295Mowbleod I High Fwfocnbxwkl69Izhr0-63Cwq [facility] Comment on above:Result Comment: The Troponin units of report have been changed to meet the Chest Pain Accreditation requirement, element EC5.M1l2. Troponin units are changed from pg/ml to ng/L. Also, the decimal is removed and results are in whole numbers. PERFORMED BY: [place] [address] PATHOLOGIST HRIS COORDINATOR NEHA AMES M.D.Performed By: #### CK, HS TROP #### [facility] [address] [place] [address] USATroponin I.cardiac [Mass/volume] in Serum or Plasma by Detection limit <= 0.01 ng/mLOrdered By: Angie Davidson on 15-60-4579Cfebvvqy I.cardiac DL <= 0.01 ng/mL [Mass/Vol]17 ng/LHigh0-15[facility] CampusComment on above:The Troponin units of report have been changed to meet the Chest Pain Accreditation requirement, element EC5.M1l2. Troponin units are changed from pg/ml to ng/L. Also, the decimal is removed and results are in whole numbers.Urea nitrogen [Mass/volume] in Serum or PlasmaOrdered By: Louis Oliveira on 31-68-9721Xdnc nitrogen [Mass/Vol]14 mg/dLNo89 Downs StreetComment on above:Performed By: #### CMP, MG, CBC #### [facility] [address] [place] [address] USAUrea nitrogen [Mass/volume] in Serum or PlasmaOrdered By: Angie Davidson on 95-62-1677Rzuk nitrogen [Mass/Vol]15 mg/dLNorm18 Rice StreetComment on above:Performed By: #### CMP, MG, CBC #### [facility] [address] [place] [address] USAPerformed By: #### CBC, LIPASE, CMP #### [facility] [address] [place] [address] USAUrine Cultureon 83-21-2660Jsflxusq identified Cx Nom (U) ORGANISM: Escherichia coli (O:ESCCOL) [place] Count >100,000 Aerobic LYNN Charge (NMIC56) SUSCEPTIBILITY ORGANISM: O:ESCCOL ANTIBIOTIC INTERPRETATION LYNN Amikacin S [...] <4 Tigecycline S <2 Tobramycin S <2 Trimethoprim/Sulfamethoxazole S <0.5 S = SUSCEPTIBLE I = [...] RESISTANT TO ALL B-LACTAM DRUGS. PERFORMED BY: [place] [address] PATHOLOGIST HRIS COORDINATOR NEHA AMES M.D.NormalThe [facility] Physician GroupComment on above: Performed By: #### CK, HS TROP #### [facility] [address] [place] [address] USAUrine cultureOrdered By: Louis Oliveira on 02-10-2025 Bacteria identified Cx Nom (U)Escherichia coliAbnoThe Jewish HospitalUrobilinogen Test strip (U) [Mass/Vol]Ordered By: Louis Oliveira on 78-54-7663Sxsqhyxkfogh (U) [Mass/Vol]Normal mg/dLNoThe Jewish HospitalVitamin B12 ser/plasOrdered By: Rashawn Mahmood on 33-94-4134Evjthhxev (Vitamin B12) [Mass/Vol]2048 pg/rWKess748-613Sougfho[address] Comment on above:Result Comment: PERFORMED BY: [place] [address] PATHOLOGIST HRIS COORDINATOR NEHA AMES M.D.Performed By: #### CMP, MG, CBC #### [facility] [address] [place] [address] USApH of Urine by Test stripOrdered By: Louis Oliveira on 24-17-7454bN (U)6.0 [pH]Normal5.0-9.0[facility] CampusComment on above:Order Comment: Name Collection Type:: Clean-Voided MidstreamPerformed By: #### CK, HS TROP #### [facility] [address] [place] [address] USAAlanine aminotransferase [Enzymatic activity/volume] in Serum or PlasmaOrdered By: Angie Davidson on 44-75-1262ISD [Catalytic activity/Vol]17 U/LNormal7-52[facility] CampusComment on above: Performed By: #### CBC, LIPASE, CMP #### [facility] [address] [place] [address] USAAlbumin [Mass/volume] in Serum or Plasma by Bromocresol green (BCG) dye binding methoOrdered By: Angie Davidson on 00-82-9464Qnhenrw BCG dye [Mass/Vol]4.7 g/dL3.5-5.7FMercy Health St. Elizabeth Youngstown HospitalAlkaline phosphatase [Enzymatic activity/volume] in Serum or PlasmaOrdered By: Angie Davidson on 32-25-7358BMP [Catalytic activity/Vol]44 U/UPmndpk56-635ZhtagjjwuSumma Health Akron CampusComment on above:Performed By: #### CBC, LIPASE, CMP #### [place] [address] USAAspartate aminotransferase [Enzymatic activity/volume] in Serum or PlasmaOrdered By: Angie Davidson on 02-58-9645UQF [Catalytic activity/Vol]23 U/PDihdvx99-12LphhjfxcjSumma Health Akron CampusComment on above: Performed By: #### CBC, LIPASE, CMP #### [place] [address] USABasophils [#/volume] in Blood by Automated countOrdered By: Angie Davidson on 93-35-7241Hilxtbkvu (Bld) [#/Vol]0.0 10*3/uLNormal0.0-0.2 [facility] CampusComment on above:Result Comment: PERFORMED BY: [place] [address] PATHOLOGIST HRIS COORDINATOR NEHA AMES M.D.Performed By: #### CBC, LIPASE, CMP #### [place] [address] USABasophils/100 leukocytes in Blood by Automated count Ordered By: Angie Davidson on 28-32-2162Jocqtlvvo/100 WBC (Bld)0.6 %Normal. [facility] CampusComment on above:Performed By: #### CBC, LIPASE, CMP #### [facility] [address] [place] [address] USABilirubin.total [Mass/volume] in Serum or PlasmaOrdered By: Angie Davidson on 90-30-8351Zjuwdoyjm [Mass/Vol]1.0 mg/dLNormal0.3-1.0 [facility] CampusComment on above:Performed By: #### CBC, LIPASE, CMP #### [facility] [address] [place] [address] USACT abdomen pelvis w conon 04-39-2491ZM abdomen pelvis w [facility] [place] [address] [place] [address] CT Scan Report Signed Patient: Atiya Jha MR#: [id number] : 1940 Acct:[id number] Age/Sex: 84 / F ADM Date: 02/09/25 Loc: ER Room: Type: [facility] ER Attending Dr: Copies to: Angie Davidson [...] Perez M.D. 02/09/2025 9:43 PM Dictation Location: [facility]-- Transcribed By: JAI 02/09/252142 Dictated By: Stephen Perez MD 02/09/252138 Signed By: 02/09/252142[facility] Physician GroupCT head/brain wo conon 54-78-5146EO head/brain wo [facility] [place] [address] [place] [address] CT Scan Report Signed Patient: Atiya Jha MR#: [id number] : 1940 Acct:[id number] Age/Sex: 84 / F ADM Date: 02/09/25 Loc: Room: [address] [place] [address] Type: ADM INOo Attending Dr: Louis Oliveira [...] Perez M.D. 02/09/2025 11:03 PM Dictation Location: [place] [address] Transcribed By: [facility] 02/09/252302 Dictated By: Stephen Perez MD 02/09/252301 Signed By: 02/09/252302NoCone Health Alam[facility] Regional Physician GroupCalcium [Mass/volume] in Serum or PlasmaOrdered By: Angie Davidson on 10-95-1792Pfxmqkr [Mass/Vol]9.7 mg/dL Normal8.6-10.3FMercy Health St. Elizabeth Youngstown HospitalComment on above:Performed By: #### CBC, LIPASE, CMP #### [place] [address] USACarbon dioxide, total [Moles/volume] in Serum or Plasma Ordered By: Angie Davidson on 34-54-0532AO6 [Moles/Vol]26.3 mmol/LNormal 21.0-31.0[facility] CampusComment on above:Performed By: #### CBC, LIPASE, CMP #### [place] [address] USAComplete Blood Count Auto Diffon 65-91-2310Gzva Corpuscular HGB Conc34.7 g/zZCvayvc67.0-35.0The [facility] Physician GroupComment on above:Performed By: #### CBC, LIPASE, CMP #### [place] [address] USAMonocytes/100 WBC (Bld)15.66 %Normal0.00-20.00The [facility] Physician GroupComment on above:Performed By: #### CBC, LIPASE, CMP #### [facility] [address] [place] [address] USANRBC%0.1 /100{WBC}Normal0-0.5The [facility] Comment on above:Performed By: #### CBC, LIPASE, CMP #### [place] [address] USAWhite Blood Count6.9 [CFU]/mLNormal3.8-11.6The [facility] Physician GroupComment on above:Performed By: #### CBC, LIPASE, CMP #### [facility] [address] [place] [id number] USAComprehensive Metabolic Panelon 44-35-0025Oireqed [Mass/Vol]4.7 g/dLNormal3.5-5.7The [facility] Physician [facility] CenterComment on above: Performed By: #### CBC, LIPASE, CMP #### [facility] [address] [place] [id number] USACreatine kinase [Enzymatic activity/volume] in Serum or PlasmaOrdered By: Louis Oliveira on 77-37-2515IK [Catalytic activity/Vol]61 U/L Wbrgjc81-048PpgpygphaSumma Health Akron CampusComment on above:Performed By: #### CK, HS TROP #### [facility] [address] [place] [address] USACreatinine [Mass/volume] in Serum or PlasmaOrdered By: Angie Davidson on 43-93-7266Mgthavlldp [Mass/Vol]0.77 mg/dLNormal0.60-1.20 [facility] CampusComment on above:Performed By: #### CBC, LIPASE, CMP #### [facility] [address] [place] [id number] USAECG 12 lead ECGon 01-42-7854AQT 12 lead [facility]GF[facility] [place] [address] [place] [address] Electrocardiograph Report Signed Patient: Atiya Jha MR#: [id number] : 1940 Acct:[id number] Age/Sex: 84 / F ADM Date: 02/09/25 Loc: Room: [address] [place] [address] Type: ADM INOo Attending Dr: Louis Oliveira MD Ordering Provider: Angie Davidson MD Date of Service: 02/09/2505/27/1825 ECG/ECG 12 lead ECG: Nausea/Vomiting/Diarrhea Copies to: Test Reason : Blood Pressure : 113/67 mmHG Vent. Rate : 76 BPM Atrial Rate : 76 BPM P-R Int : 174 ms QRS Dur : 86 ms QT Int : 430 ms P-R-T Axes : 72 77 81 degrees QTcB Int : 483 ms Sinus rhythm with occasional premature ventricular complexes Confirmed by Chaitanya LU DO ([id number]) on 02/09/2025 11:45:36 PM Referred By: Electronically Signed By: Chaitanya LU DO Transcribed By: MUS Signed By Chaitanya Lu DO 0 02/09/[address] [place] [address] Physician GroupEosinophils [#/volume] in Blood by Automated countOrdered By: Angie Davidson on 42-95-7690Vlxkskaddao (Bld) [#/Vol]0.0 10*3/uLNormal0.0-0.45[facility] CampusComment on above:Performed By: #### CBC, LIPASE, CMP #### [place] [address] USAEosinophils/100 leukocytes in Blood by Automated count Ordered By: Angie Davidson on 25-63-3972Ptrjbnyxjxt/100 WBC (Bld)0.5 %Normal. [facility] CampusComment on above:Performed By: #### CBC, LIPASE, CMP #### [facility] [address] [place] [address] USAErythrocyte distribution width [Ratio] by Automated count Ordered By: Angie Davidson on 18-25-4842Jnmqmznvejd distribution width (RBC) [Ratio]13.2 %Iojdkd31.9-15.3FMercy Health St. Elizabeth Youngstown HospitalComment on above: Performed By: #### CBC, LIPASE, CMP #### [facility] [address] [place] [id number] USAErythrocytes [#/volume] in Blood by Automated countOrdered By: Angie Davidson on 36-45-2641OSA (Bld) [#/Vol]4.46 10*6/uLNormal3.60-5.00 [facility] CampusComment on above:Performed By: #### CBC, LIPASE, CMP #### [place] [address] USAGlucose [Mass/volume] in Serum or PlasmaOrdered By: Angie Davidson on 88-58-2576Jomvdng [Mass/Vol]125 mg/gTWgmg71-151NepwvjbxwSumma Health Akron CampusComment on above:ADA recommended reference rangeRandom Glucose Reference Range is dependent on time and content of last meal. Glucose of more than 200 mg/dL in a nonstressed, ambulatory subject supports the diagnosisof Diabetes Mellitus.Result Comment: Random Glucose Reference Range is dependent on time and content of last meal. Glucose of more than 200 mg/dL in a nonstressed, ambulatory subject supports the diagnosis of Diabetes Mellitus. ADA recommended reference rangePerformed By: #### CBC, LIPASE, CMP #### [facility] [address] [place] [address] USAHematocrit [Volume Fraction] of Blood by Automated count Ordered By: Angie Davidson on 96-22-7782Bnexdnekko (Bld) [Volume fraction]41.1 % Rcnpqw72.0-46.4FMercy Health St. Elizabeth Youngstown HospitalComment on above:Performed By: #### CBC, LIPASE, CMP #### [place] [address] USAHemoglobin [Mass/volume] in BloodOrdered By: Angie Davidson on 21-84-0908Yioiclaiqw (Bld) [Mass/Vol]14.3 g/tCFdbgjx16.8-15.4 [facility] CampusComment on above:Performed By: #### CBC, LIPASE, CMP #### [place] [address] USALeukocytes [#/volume] corrected for nucleated erythrocytes in Blood by Automated counOrdered By: Angie Davidson on 87-93-6579QNI corrected for nucl RBC Auto (Bld) [#/Vol]6.9 10*3/uL3.8-11.6FMercy Health St. Elizabeth Youngstown HospitalLeukocytes [#/volume] in Blood by Automated countOrdered By: Angie Davidson on 98-21-3616CYE (Bld) [#/Vol]6.9 10*3/uLNormal3.8-11.6FMercy Health St. Elizabeth Youngstown HospitalComment on above:Performed By: #### CBC, LIPASE, CMP #### [place] [address] USALipase [Enzymatic activity/volume] in Serum or Plasma Ordered By: Angie Davidson on 32-18-4096Tixdoh [Catalytic activity/Vol]24.0 U/L Mfrgna13.0-82.0[facility] CampusComment on above:Result Comment: PERFORMED BY: [place] [address] PATHOLOGIST HRIS COORDINATOR NEHA AMES M.D.Performed By: #### CBC, LIPASE, CMP #### [facility] [address] [place] [address] USALymphocytes [#/volume] in Blood by Automated countOrdered By: Angie Davidson on 31-11-2001Iecrtpoinkq (Bld) [#/Vol]1.5 10*3/uLNormal 1.00-4.8[facility] CampusComment on above:Performed By: #### CBC, LIPASE, CMP #### [place] [address] USALymphocytes/100 leukocytes in Blood by Automated count Ordered By: Angie Davidson on 11-07-2378Mwxsnkiizxj/100 WBC (Bld)21.6 %Normal. [facility] CampusComment on above:Performed By: #### CBC, LIPASE, CMP #### [address] [Entitic mass] by Automated countOrdered By: Angie Davidson on 35-68-5243GBQ (RBC) [Entitic mass]32.0 uyOblimj87.7-34.3FMercy Health St. Elizabeth Youngstown HospitalComment on above:Performed By: #### CBC, LIPASE, CMP #### [address] Auto (RBC) [Mass/Vol]Ordered By: Angie Davidson on 35-62-9930FDYY (RBC) [Mass/Vol]34.7 g/dL32.0-35.0[facility] CampusMCV [Entitic volume] by Automated countOrdered By: Angie Davidson on 25-03-4987SAN (RBC) [Entitic vol]92.2 hMMpukfx93-940CbafueuxoSumma Health Akron CampusComment on above:Performed By: #### CBC, LIPASE, CMP #### [facility] [address] [place] [address] USAMonocyte distribution width [Entitic volume] in Blood by AutomatedOrdered By: Angie Davidson on 86-51-3367Afqryauv distribution width Auto (Bld) [Entitic vol]15.66 %0.00-20.00[facility] Monocytes [#/volume] in Blood by Automated countOrdered By: Angie Davidson on 06-55-6223Fnhyknyfv (Bld) [#/Vol]0.6 10*3/uLNormal0.0-0.8[facility] CampusComment on above:Performed By: #### CBC, LIPASE, CMP #### [facility] [address] [place] [id number] USAMonocytes/100 leukocytes in Blood by Automated count Ordered By: Angie Davidson on 82-84-6559Facawqlfw/100 WBC (Bld)8.6 %Normal. [facility] CampusComment on above:Performed By: #### CBC, LIPASE, CMP #### [facility] [address] [place] [address] USANeutrophils [#/volume] in Blood by Automated countOrdered By: Angie Davidson on 94-89-1408Sqknsezlrst (Bld) [#/Vol]4.8 10*3/uLNormal 1.8-7.7FMercy Health St. Elizabeth Youngstown HospitalComment on above:Performed By: #### CBC, LIPASE, CMP #### [facility] [address] [place] [id number] USANeutrophils/100 leukocytes in Blood by Automated count Ordered By: Angie Davidson on 34-77-3828Oaplfyrkfmr/100 WBC (Bld)68.7 %Normal. [facility] CampusComment on above:Performed By: #### CBC, LIPASE, CMP #### [place] [phone] USANo Panel InformationOrdered By: Angie Davidson on 28-01-5106Pwlqlgsah GFR (CKD-EPI)> 60.0 mL/MinSumma Health [facility] Campus Pharmacy Creatinine Clearance (Chem46.26[facility] Nucleated erythrocytes [Presence] in Blood by Automated countOrdered By: Angie Davidson on 47-78-5144Chjterdar RBC Auto Ql (Bld)0.1 /100{WBC}0-0.5FMercy Health St. Elizabeth Youngstown HospitalOsmolalityon 64-28-7063Uqhvnpfvov926 xtemQmf337-523Acz [facility] Physician GroupComment on above:Result Comment: PERFORMED BY: [place] [address] PATHOLOGIST HRIS COORDINATOR NEHA AMES M.D.Performed By: #### CMP, MG, CBC #### [facility] [address] [place] [address] USAOsmolality measurementOrdered By: Louis Oliveira on 07-76-4671Pdrfkxadkf (Unsp spec) [Osmolality]267 iyqqArf615-038XzxlcynunSumma Health Akron CampusPlatelet mean volume [Entitic volume] in Blood by Automated countOrdered By: Angie Davidson on 11-24-1354Oycmjihj mean volume (Bld) [Entitic vol]7.1 fLNormal6.3-10.7FMercy Health St. Elizabeth Youngstown HospitalComment on above:Performed By: #### CBC, LIPASE, CMP #### [facility] [address] [place] [address] USAPlatelets [#/volume] in Blood by Automated countOrdered By: Angie Davidson on 76-34-5819Bdtrrwhgo (Bld) [#/Vol]222 10*3/vNIkdxma089-134 [facility] CampusComment on above:Performed By: #### CBC, LIPASE, CMP #### [facility] [address] [place] [address] USAPotassium [Moles/volume] in Serum or PlasmaOrdered By: Angie Davidson on 45-60-7885Cmuqcemgq [Moles/Vol]3.9 mmol/LNormal3.5-5.1 [facility] CampusComment on above:Performed By: #### CBC, LIPASE, CMP #### [facility] [address] [place] [address] USAProtein [Mass/volume] in Serum or PlasmaOrdered By: Angie Davidson on 22-30-9457Ixrvpml [Mass/Vol]7.3 g/dLNormal6.4-8.9[facility] CampusComment on above:Performed By: #### CBC, LIPASE, CMP #### [place] [address] USASerum globulin measurement by calculation (mass/volume) Ordered By: Angie Davidson on 05-47-1909Gmmgmzfv (S) [Mass/Vol]2.6 g/dLNormal [facility] CampusComment on above:Performed By: #### CBC, LIPASE, CMP #### [place] [address] USASerum or plasma albumin/globulin mass ratioOrdered By: Angie Davidson on 44-65-5051Ifhmuxv/Globulin [Mass ratio]1.8 {ratio}Normal [facility] CampusComment on above:Performed By: #### CBC, LIPASE, CMP #### [place] [address] USASerum or plasma anion gap determinationOrdered By: Angie Davidson on 71-25-5772Qvyif gap [Moles/Vol]12.6 mmol/LNormal6.0-15.0[facility] CampusComment on above:Performed By: #### CBC, LIPASE, CMP #### [place] [address] USASodium [Moles/volume] in Serum or PlasmaOrdered By: Angie Davidson on 94-75-4628Ehgbjg [Moles/Vol]126 mmol/JOii059-120FjhxlplsmSumma Health Akron CampusComment on above:Performed By: #### CBC, LIPASE, CMP #### [place] [address] USATroponin I High Sensitivityon 28-98-2995Vmhwdfsv I High Vxdrtbdwemm39Lievdb6-07Yqu [facility] Physician GroupComment on above:Result Comment: The Troponin units of report have been changed to meet the Chest Pain Accreditation requirement, element EC5.M1l2. Troponin units are changed from pg/ml to ng/L. Also, the decimal is removed and results are in whole numbers. PERFORMED BY: [place] [address] PATHOLOGIST HRIS COORDINATOR NEHA AMES M.D.Performed By: #### CK, HS TROP #### [facility] [address] [place] [address] USATroponin I.cardiac [Mass/volume] in Serum or Plasma by Detection limit <= 0.01 ng/mLOrdered By: Louis Oliveira on 27-79-7809Buobrirz I.cardiac DL <= 0.01 ng/mL [Mass/Vol]15 ng/L0-15[facility] CampusComment on above:The Troponin units of report have been changed to meet the Chest Pain Accreditation requirement, element EC5.M1l2. Troponin units are changed from pg/ml to ng/L. Also, the decimal is removed and results are in whole numbers.Urate [Mass/volume] in Serum or PlasmaOrdered By: Louis Oliveira on 50-65-4241Ztbxt [Mass/Vol]3.5 mg/dLNormal2.3-6.6FMercy Health St. Elizabeth Youngstown HospitalComment on above:Result Comment: PERFORMED BY: [place] [address] PATHOLOGIST HRIS COORDINATOR NEHA AMES M.D.Performed By: #### CMP, MG, CBC #### [facility] [address] [place] [address] USAX-ray reportOrdered By: Stephen Perez on 27-94-6795Hydrm reportFISHER-[facility]IT[facility] Main [place] [address] [place] [address] XRay Report Signed Patient: Atiya Jha MR#: [id number] : 1940 Acct:[id number] Age/Sex: 84 / F ADM Date: 5 Loc: ER Room: Type: [facility] ER Attending Dr: Copies to: Angie Davidson MD~ Ordering Provider: Angie Davidson MD Date of Service: 02/09/25 XR/XR chest 2V*: Nausea/Vomiting/Diarrhea PA AND LATERAL CHEST: CLINICAL HISTORY: Persistent left-sided pain, generalized weakness COMPARISON: CT abdomen pelvis 02/09/2025 FINDINGS: Unremarkable cardiac mediastinal. No focal opacity, effusion or pneumothorax. XR/XR chest 2V* IMPRESSION: NO ACUTE CARDIOPULMONARY ABNORMALITY. Impression dictated by: Stephen Perez M.D. 02/09/2025 9:22 PM Dictation Location: RADIO-PC-29 Transcribed By: JAI 02/09/252121 Dictated By: Stephen Perez MD 02/09/252120 Signed By: 02/09/252121 [facility] Work Phone: xr chest 2V*on 42-21-1967IJ chest 2V*[facility] Main [address] [address] XRay Report Signed Patient: Atiya Jha MR#: [id number] : 1940 Acct:[id number] Age/Sex: 84 / F ADM Date: 02/09/25 Loc: ER Room: Type: [facility] ER Attending Dr: Copies to: Angie Davidson MD Ordering Provider: Angie Davidson MD Date of Service: 02/09/25 XR/XR chest 2V*: Nausea/Vomiting/Diarrhea PA AND LATERAL CHEST: CLINICAL HISTORY: Persistent left-sided pain, generalized weakness COMPARISON: CT abdomen pelvis 02/09/2025 FINDINGS: Unremarkable cardiac mediastinal. No focal opacity, effusion or pneumothorax. XR/XR chest 2V* IMPRESSION: NO ACUTE CARDIOPULMONARY ABNORMALITY. Impression dictated by: Stephen Perez M.D. 02/09/2025 9:22 PM Dictation Location: RADIO-PC-29 Transcribed By: JAI 02/09/252121 Dictated By: Stephen Perez MD 02/09/252120 Signed By: 02/09/252121[facility] Physician GroupX-ray reportOrdered By: Stephen Perez on 24-72-8497Igmdx reportFIRELANDS REGIONAL MEDICAL [facility] [address] [address] XRay Report Signed Patient: Atiya Jha MR#: [id number] : 1940 Acct:[id number] Age/Sex: 84 / F ADM Date: 5 Loc: ER Room: Type: [facility] ER Attending Dr: Copies to: Jerson Aranda [...] Perez M.D. 02/03/2025 10:08 AM Dictation Location: [facility]- Transcribed By: [facility] 02/03/25 1008 Dictated By: Stephen Perez MD 02/03/25 1006 Signed By: 02/03/25 1008 [facility] Work Phone: XR ribs LT min 3V w CXR1V*on 45-48-0844JA ribs LT min 3V w CXR1V*[address] [address] XRay Report Signed Patient: Atiya Jha MR#: [id number] : 1940 Acct:[id number] Age/Sex: 84 / F ADM Date: 02/03/25 Loc: ER Room: Type: [facility] ER Attending Dr: Copies to: Jerson Aranda [...] Perez M.D. 02/03/2025 10:08 AM Dictation Location: [facility]-- Transcribed By: [facility] 02/03/25 1008 Dictated By: Stephen Perez MD 02/03/25 1006 Signed By: 02/03/25 1008[facility] Physician GroupECG [address] 96-59-0269Yyzfvz sinus rhythm. Normal EKGCOhioHealth Pickerington Methodist Hospital Work Phone: no Panel Informationon 57-58-8177CylkqraSHANNAN Mitchell 01/10/2025 12:23 PM L Inj/Asp: R [...] and draped in the usual sterile fashion. [facility] HospitalXR Knee - right 1 or 2 Viewson 13-28-8975Stegiwt Result: AP and lateral right knee Valgus alignment No acute fracture or dislocation Vascular calcification distal aspect of femur. Possible calcified loose body posterior recess. Near bone on bone articulation lateral joint line, mild flattening of articular surface Impression: moderate tricompartmental arthritic changes.[facility]ty HospitalRadiology Study observation (narrative)[facility] metabolic 1999 panelon 82-28-8801Xzinx gap [Moles/Vol]10 mmol/L10 - 20 mmol/LUnOhio Valley Surgical HospitalCalcium [Mass/Vol]9.2 mg/dL8.6 - 10.3 mg/dLUniversity Hospitals of ClevelandChloride [Moles/Vol]101 mmol/L98 - 107 mmol/[facility] Hospital LimaCO2 [Moles/Vol]29 mmol/L21 - 32 mmol/[facility] LimaCreatinine [Mass/Vol]0.92 mg/dL0.50 - 1.05 mg/dLHolmes County Joel Pomerene Memorial HospitalGFR/1.73 sq M.predicted among non-blacks MDRD (S/P/Bld) [Vol rate/Area]61 mL/min/{1.73_m2}- [facility] CenterComment on above:Calculations of estimated GFR are performed using the 2020 CKD-EPI Study Refit equation without therace variable for the IDMS-Traceable creatinine methods. https://jasn.asnjournals.org/content/early//ASN.1175487821 Glucose [Mass/Vol]98 mg/dL74 - 99 mg/dLUnOhio Valley Surgical Hospital Potassium [Moles/Vol]4.1 mmol/L3.5 - 5.3 mmol/[facility] Sodium [Moles/Vol]136 mmol/L136 - 145 mmol/[facility] Urea nitrogen [Mass/Vol]13 mg/dL6 - 23 mg/dLUnOhio Valley Surgical Hospital Anion gap [Moles/Vol]10 mmol/AShlkfx80-12BablgbgbntChillicothe HospitalComment on above:Performed By: #### 66352-9 #### SISSY HOGAN ([id number]) [facility] ([facility]) [address] [place] [address]Kziykei [Mass/Vol]9.2 mg/dLNormal8.6-10.3UnChillicothe HospitalComment on above:Performed By: #### 01039-8 #### SISSY HOGAN ([id number]) [facility] ([facility]) [address] [place] [address] 17765Qbatqknz [Moles/Vol]101 mmol/NLydmce83-161MpsiquqhhzChillicothe HospitalComment on above:Performed By: #### 83999-1 #### SISSY HOGAN ([id number]) [facility] ([facility]) [address] [place], [place] [address]UF1 [Moles/Vol]29 mmol/XFcfwej64-49WuxevsdgneChillicothe HospitalComment on above:Performed By: #### 84148-0 #### SISSY HOGAN ([id number]) [facility] ([facility]) [address] [place] [address] 71270Mzuxhhoekh [Mass/Vol]0.92 mg/dLNormal0.50-1.05UnChillicothe HospitalComment on above:Performed By: #### 46281-7 #### SISSY HOGAN ([id number]) [facility] ([facility]) [address] [place] [address] 11075Mgycnbldtz filtration rate/1.73 sq M.vucwnxvcr15 mL/min/1.73m*2 Normal>60UnChillicothe HospitalComment on above:Result Comment: Calculations of estimated GFR are performed using the 2020 CKD-EPI Study Refit equation without the race variable for the IDMS-Traceable creatinine methods. https://jasn.asnjournals.org/content//ASN.9313176470Znsqcuohe By: #### 12535-8 #### SISSY HOGAN ([id number]) [facility] ([facility]) [address] [place] [address] 43916Uqkqzcg [Mass/Vol]98 mg/oBHbfmqw19-10JzexdvwdgsChillicothe HospitalComment on above:Performed By: #### 96386-3 #### SISSY HOGAN ([id number]) [facility] ([facility]) [address] [place] [address] 88895Setlaoprb [Moles/Vol]4.1 mmol/LNormal3.5-5.3[facility] HospitalComment on above:Performed By: #### 19725-4 #### SISSY HOGAN ([id number]) [facility] ([facility]) [address] [place] [address] 17784Nbkunz [Moles/Vol]136 mmol/ALfomrt634-297PjakmlvfpbMercer County Community HospitalComment on above:Performed By: #### 02082-0 #### SISSY HOGAN ([id number]) [facility] ([facility]) [address] [place] [address] 09182Mros nitrogen [Mass/Vol]13 mg/dLNormal6-23Mer[facility] HospitalComment on above:Performed By: #### 39384-4 #### SISSY HOGAN ([id number]) [facility] ([facility]) [address] [place] [address] 25329TJI panel Auto (Bld)on 08-31-1272Kwlstgmosbh distribution width (RBC) [Ratio]13 %11.5 - 14.5 %[facility]ome[facility] Memorial HospitalHematocrit (Bld) [Volume fraction]35.6 %Low36.0 - 46.0 %[facility] Hemoglobin (Bld) [Mass/Vol]11.9 g/dLLow12.0 - 16.0 g/dLUnOhio Valley Surgical HospitalInterpretation and review of laboratory resultsAbnormalUSt. Mary's Medical Center (RBC) [Entitic mass]31.8 pg26.0 - 34.0 pgBethesda North HospitalHC (RBC) [Mass/Vol]33.4 g/dL32.0 - 36.0 g/dLBethesda North HospitalV (RBC) [Entitic vol]95 fL80 - 100 fLUniOhioHealth Doctors HospitalNucleated RBC/100 WBC (Bld) [Ratio]0 %[facility] Memorial HospitalPlatelets (Bld) [#/Vol]178 10*3/[facility] RBC (Bld) [#/Vol]3.74 10*6/[facility] CenterWBC (Bld) [#/Vol]6.9 10*3/UK HealthcareUnOhio Valley Surgical HospitalErythrocyte distribution width (RBC) [Ratio]13.0 %Wvcklk87.5-14.5 [facility] HospitalComment on above:Performed By: #### 45558-2 #### SISSY HOGAN ([id number]) [facility] ([facility]) [address] [place] [address] 16515Lcfzaignwo (Bld) [Volume fraction]35.6 %Low36.0-46.0UnChillicothe HospitalComment on above:Performed By: #### 77063-1 #### SISSY HOGAN ([id number]) [facility] ([facility]) [address] [place] [address] 25044Jtmsfxzbhr (Bld) [Mass/Vol]11.9 g/dLLow12.0-16.0UnChillicothe HospitalComment on above:Performed By: #### 60971-0 #### SISSY HOGAN ([id number]) [facility] ([facility]) [address] [place] [address] 729[address]WHH (RBC) [Entitic mass]31.8 ewNqmzjw19.0-34.0UnChillicothe HospitalComment on above:Performed By: #### 01420-3 #### SISSY HOGAN ([id number]) [facility] ([facility]) [address] [place] [address] 15541SFXH (RBC) [Mass/Vol]33.4 g/sWXshvgd75.0-36.0UnChillicothe HospitalComment on above:Performed By: #### 97245-9 #### SISSY HOGAN ([id number]) [facility] ([facility]) [address] [place] [address] 53305PLG (RBC) [Entitic vol]95 aBQxqrri52-592YlsaojspnxChillicothe HospitalComment on above:Performed By: #### 61378-2 #### SISSY HOGAN ([id number]) [facility] ([facility]) [address] [place] [address] 97779Sdmjfitbi RBC/100 WBC (Bld) [Ratio]0.0 /100 WBCsNormal0.0-0.0 [facility] HospitalComment on above:Performed By: #### 11446-1 #### SISSY HOGAN ([id number]) [facility] ([facility]) [address] [place] [address] 64518Jgqmkpezb (Bld) [#/Vol]178 x10*3/oHWugaer067-848HecqfsprzoMercer County Community HospitalComment on above:Performed By: #### 89278-7 #### KAYIBGABRIEL HOGAN ([id number]) [facility] ([facility]) [address] [place] [address] 24835QOV (Bld) [#/Vol]3.74 x10*6/uLLow4.00-5.20[facility] HospitalComment on above:Performed By: #### 51019-1 #### SISSY HOGAN ([id number]) [facility] ([facility]) [address] [place] [address] 74695SCL (Bld) [#/Vol]6.9 x10*3/uLNormal4.4-11.3Mer[facility] Community HospitalComment on above:Performed By: #### 90381-6 #### SISSY MITCHELL RIO EDIN ([id number]) [facility] ([facility]) [address] [place] [address] 79152MMR 12-LEADon 56-65-0114HQH 12-LEADVentricular Rate 59 Atrial Rate 59 P-R Interval 206 QRS Duration 90 Q-T Interval 468 QTC Calculation(Bazett) 463 P [place] 79 R [place] 29 T [place] 83 QRS Count 10 Q Onset 216 P Onset 113 P Offset 180 T Offset 450 QTC Fredericia 465 Diagnosis Sinus bradycardia Otherwise normal ECG When compared with ECG of 02-DEC-2024 13:38, (unconfirmed) No significant change was found Confirmed by Chay Manuel ([id number]) on 12/03/2024 4:02:30 PMNNew Ulm Medical CenterHeparin Assayon 12-08-1601Gqruomt unfractionated Chromogenic method Qn (PPP)0.1[facility] Memorial HospitalHeparin unfractionated Chromogenic method Qn (PPP)on 89-25-6090Hsqknxjvgwenlr and review of laboratory resultsNormalUniversIndiana University Health Bloomington HospitalThe therapeutic reference range for UFH may be either 0.3-0.6 IU/mL or 0.3-0.7 IU/mL based on the clinical setting for anticoagulant therapy and the associated nomogram used. For Heparin dosing guidelines based on clinical scenario and Heparin Assay results, please refer to local Pharmacy and the [facility] Guidelines for Anticoagulation Therapy available on the [facility] intranet at: [email or web address]/Pages/[place]_[facility]_Guidelines_for_ Anticoagu.aspxUnOhio Valley Surgical HospitalUnOhio Valley Surgical Hospital Heparin.unfractionatedon 06-93-2179Aybiqoc unfractionated Chromogenic method Qn (PPP)0.1 IU/mLNormalSee Comment Below for Therapeutic RangesUnChillicothe HospitalComment on above:Order Comment: The therapeutic reference range for UFH may be either 0.3-0.6 IU/mL or 0.3-0.7 IU/mLbased on the clinical setting for anticoagulant therapy and the associated nomogram used. For Heparin dosing guidelines based on clinical scenario and Heparin Assay results, please refer to local Pharmacy and the [facility] Guidelines for Anticoagulation Therapy available on the [facility] intranet at: [email or web address]/Pharmacy/Pages/[place]_[facility]_Guidelin es_for_Anticoagu.aspxPerformed By: #### 78401-1 #### ANAIBGABRIEL HOGAN ([id number]) [facility] ([facility]) [address] [place] [address] 59866Zibxhevqnnt 17-79-8833Eovezkxrj [Mass/Vol]2.01 mg/dL1.60 - 2.40 mg/dLHolmes County Joel Pomerene Memorial HospitalMagnesium [Mass/Vol]2.01 mg/dLNormal 1.60-2.40UnChillicothe HospitalComment on above:Performed By: #### 05625-9 #### KAYIBGABRIEL HOGAN ([id number]) [facility] ([facility]) [address] [place] [address] 98397Sg Panel Informationon 74-56-6161Sgnhpoyucxdzow and review of laboratory resultsNormalUniversity Hospitals of ClevelandUnOhio Valley Surgical HospitalACT Coag (Bld)on 57-88-8229Xpgixyfnljpfyd and review of laboratory resultsAbnoFirelands Regional Medical Center South CampusACTIVATED CLOTTING TIME LOWon 20-41-3779FNP Coag (Bld)HighSycamore Medical Center on above:ABOVE LIMIT FOR DEVICE Target ACT range will vary based on the patient population, clinical status, and surgical intervention occurring. Activated clotting timeon 51-12-6202RLN Coag (Bld)zGutw91-290BeqjjnyvbbChillicothe HospitalCompontiac general hospital on above:Result Comment: ABOVE LIMIT FOR DEVICE Target ACT range will vary based on the patient population, clinical status, and surgical intervention occurring.Performed By: #### 98920-8 #### SISSY HOGAN ([id number]) [facility] ([facility]) [address] [place] [address] 76147Zsnev metabolic 2000 panelon 28-84-9475Qtswy gap [Moles/Vol]10 mmol/L10 - 20 mmol/[facility] LimaCalcium [Mass/Vol]9.4 mg/dL 8.6 - 10.3 mg/dLUnOhio Valley Surgical HospitalChloride [Moles/Vol]102 mmol/L 98 - 107 mmol/[facility] LimaCO2 [Moles/Vol]29 mmol/L21 - 32 mmol/[facility] LimaCreatinine [Mass/Vol]0.89 mg/dL0.50 - 1.05 mg/dLHolmes County Joel Pomerene Memorial HospitalGFR/1.73 sq M.predicted among non- blacks MDRD (S/P/Bld) [Vol rate/Area]64 mL/min/{1.73_m2}- [facility] on above:Calculations of estimated GFR are performed using the 2020 CKD-EPI Study Refit equation without therace variable for the IDMS-Traceable creatinine methods. https://jasn.asnjournals.org/content//ASN.4511926406 Glucose [Mass/Vol]101 mg/xKCtjn70 - 99 mg/dLUnOhio Valley Surgical Hospital Interpretation and review of laboratory resultsAbnormalUniOhioHealth Doctors HospitalPotassium [Moles/Vol]3.9 mmol/L3.5 - 5.3 mmol/[facility] LimaSodium [Moles/Vol]137 mmol/L136 - 145 mmol/[facility] LimaUrea nitrogen [Mass/Vol]16 mg/dL6 - 23 mg/dLHolmes County Joel Pomerene Memorial HospitalAnion gap [Moles/Vol]10 mmol/RShsxau76-75TglejjbetkChillicothe HospitalComment on above:Performed By: #### 80426-5 #### SISSY HOGAN ([id number]) [facility] ([facility]) [address] [place] [address] 90236Hzpzxva [Mass/Vol]9.4 mg/dLNormal8.6-10.3Mer[facility] Community HospitalComment on above:Performed By: #### 08911-5 #### SISSY HOGAN ([id number]) [facility] ([facility]) [address] [place] [address] 66291Pskujjcq [Moles/Vol]102 mmol/LTzprxy53-654CmpjuuhcccChillicothe HospitalComment on above:Performed By: #### [id number] #### SISSY HOGAN ([id number]) [facility] ([facility]) [address] [place] [address] [id number] [Moles/Vol]29 mmol/LBngmdm13-07RzvijprllkChillicothe HospitalComment on above:Performed By: #### [id number] #### SISSY HOGAN ([id number]) [facility] ([facility]) [address] [place] [address] 63494Kyhlstjzwr [Mass/Vol]0.89 mg/dLNormal0.50-1.05UnChillicothe HospitalComment on above:Performed By: #### 76076-2 #### SISSY HOGAN ([id number]) [facility] ([facility]) [address] [place] [address] 37569Qnybaazvgh filtration rate/1.73 sq M.zlttppray83 mL/min/1.73m*2 Normal>60UnChillicothe HospitalComment on above:Result Comment: Calculations of estimated GFR are performed using the 2020 CKD-EPI Study Refit equation without the race variable for the IDMS-Traceable creatinine methods. https://jasn.asnjournals.org/content//ASN.2503306558Bblrizflb By: #### 45653-2 #### SISSY HOGAN ([id number]) [facility] ([facility]) [address] [place] [address] 78231Hjtqxne [Mass/Vol]101 mg/eXXaca70-07UsvbnkbmyiMercer County Community HospitalComment on above:Performed By: #### 33697-4 #### SISSY HOGAN ([id number]) [facility] ([facility]) [address] [place] [address] 24913Gxpaqulab [Moles/Vol]3.9 mmol/LNormal3.5-5.3Mercer County Community HospitalComment on above:Performed By: #### 49661-6 #### SISSY HOGAN ([id number]) [facility] ([facility]) [address] [place] [address] 37054Rbksmp [Moles/Vol]137 mmol/BGnzquq759-898ZhuriyymyxMercer County Community HospitalComment on above:Performed By: #### 09175-7 #### SISSY HOGAN ([id number]) [facility] ([facility]) [address] [place] [address] 63568Jyhq nitrogen [Mass/Vol]16 mg/dLNormal6-23Mercer County Community HospitalComment on above:Performed By: #### 88418-5 #### SISSY HOGAN ([id number]) [facility] ([facility]) [address] [place] [address] 34101OTUWIRO CATHETERIZATION PROCEDUREon 05-47-2897QPIUHDK CATHETERIZATION PROCEDURELake City Va [facility], Retail Wireless Sales Representative [address] [place] [address] 42617 Cardiovascular Catheterization Report Patient Name: ATIYA JHA Performing Physician: Zaira Howard MD Study Date: 12/02/2024 Verifying Physician: Zaira Howard MD MRN/PID: [id number] Shape Hand/Co-Scrub: Ordering Provider: [id number] DANIELA PORTILLO Date of /Age: 1005/07/1940 / 84 years Shape Hand: [id number] Jamia Ndiaye MD Gender: F Fellow: Surgeon: [...] a modified Seldinger technique. Subsequently a 6 Chinese sheath was placed in the right femoral artery. Selective coronary catheterization was performed using a 6 Fr catheter(s) exchanged over a guide wire to cannulate the coronary arteries. Additional catheter(s) used to visualize the coronary arteries were: XB3.0. Multiple injections of contrast were made into the left coronary arteries with angiograms recorded in multiple projections.After completion of the procedure, femoral artery angiography [...] Ananda 2.5x15 stent was deployed in the lesiona balloon was inflated for post-dilation. Residual stenosis is 0 %. Coronary Interventions: Angiography reveals a 99% stenosis of the ostial left anterior descending coronary artery. Pre-intervention DERICK flow was 3. Percutaneous coronary intervention was performed within the ostial left anterior descending. The vessel was pre-dilated using a compliant balloon 2.0 mm x 12 mm at 12 KELI. Fro salty [place] drug-eluting stent 2.5 mm x 15 mm [...] Restenosis. 4. Ostial LAD Lesion: pre-dilation, Resolute [place] 2.5x15 post-dilation : 0% residual stenosis. LAD:pre-procedure DERICK flow was 3(complete perfusion) and post-procedure DERICK flow was 3(complete perfusion). ICD 10 Codes: Angina pectoris, unspecified-I20.9 CPT Codes: Stent w angioplasty Left Anterior Descending single major Artery branch (PCI)- 87449.LD; Coronary Angiography (LH (more content not included)...Normal [facility] County Community HospitalCBC panel Auto (Bld)on 12-02-2024 Erythrocyte distribution width (RBC) [Ratio]13 %11.5 - 14.5 %[facility] HospitalHematocrit (Bld) [Volume fraction]33.3 %Low36.0 - 46.0 % [facility] HospitalHemoglobin (Bld) [Mass/Vol]11.4 g/dLLow12.0 - 16.0 g/dLUnOhio Valley Surgical HospitalInterpretation and review of laboratory resultsAbnormalUSt. Mary's Medical Center (RBC) [Entitic mass]31.9 pg26.0 - 34.0 pgUnHarrison Community HospitalHC (RBC) [Mass/Vol] 34.2 g/dL32.0 - 36.0 g/dLBethesda North HospitalV (RBC) [Entitic vol]93 fL80 - 100 fLUniOhioHealth Doctors HospitalNucleated RBC/100 WBC (Bld) [Ratio]0 %[facility] HospitalPlatelets (Bld) [#/Vol]171 10*3/uL [facility] HospitalRB (Bld) [#/Vol]3.57 10*6/[facility] Medical CenterWBC (Bld) [#/Vol]6.4 10*3/UK HealthcareUnOhio Valley Surgical HospitalErythrocyte distribution width (RBC) [Ratio]13.0 %Ihgjub55.5-14.5Mer[facility] County Community HospitalComment on above:Performed By: #### 08284-4 #### SISSY HOGAN ([id number]) [facility] ([facility]) [address] [place] [address] 20712Puxpgaxffw (Bld) [Volume fraction]33.3 %Low36.0-46.0Mer[facility] County Community HospitalComment on above:Performed By: #### 07160-6 #### SISSY HOGAN ([id number]) [facility] ([facility]) [address] [place] [address] 29312Edqpcznowy (Bld) [Mass/Vol]11.4 g/dLLow12.0-16.0UnChillicothe HospitalComment on above:Performed By: #### 89659-0 #### SISSY HOGAN ([id number]) [facility] ([facility]) [address] [place] [address] 95207TYJ (RBC) [Entitic mass]31.9 jhEmdtlb06.0-34.0Mer[facility] County Community HospitalComment on above:Performed By: #### 68109-0 #### SISSY HOGAN ([id number]) [facility] ([facility]) [address] [place] [address] 65403NEHW (RBC) [Mass/Vol]34.2 g/nPUpcbsi95.0-36.0UnChillicothe HospitalComment on above:Performed By: #### 33839-4 #### SISSY HOGAN ([id number]) [facility] ([facility]) [address] [place] [address] 79262ZSF (RBC) [Entitic vol]93 nHZhurmy11-866LqrxmyspdvChillicothe HospitalComment on above:Performed By: #### 84941-6 #### SISSY HOGAN ([id number]) [facility] ([facility]) [address] [place] [address] 01483Fvspgavau RBC/100 WBC (Bld) [Ratio]0.0 /100 WBCsNormal0.0-0.0 [facility] County Community HospitalComment on above:Performed By: #### 49982-2 #### SISSY HOGAN ([id number]) [facility] ([facility]) [address] [place] [address] 19211Zbdkhfviu (Bld) [#/Vol]171 x10*3/aAAzbttt681-578WclzsdepwuMercer County Community HospitalComment on above:Performed By: #### 51231-0 #### SISSY MITCHELL ALICIA JESUS ([id number]) [facility] ([facility]) [address] [place] [address] 34789ZIU (Bld) [#/Vol]3.57 x10*6/uLLow4.00-5.20Mer[facility] County Community HospitalComment on above:Performed By: #### 28233-5 #### SISSY MITCHELL RIO EDIN ([id number]) [facility] ([facility]) [address] [place] [address] 26656THD (Bld) [#/Vol]6.4 x10*3/uLNormal4.4-11.3Mer[facility] County Community HospitalComment on above:Performed By: #### 28480-7 #### SISSY MITCHELL RIO EDIN ([id number]) [facility] ([facility]) [address] [place] [address] 12138Amadnsv catheterization studyon 12-02-2024 [facility], Retail Wireless Sales Representative [address] [place] [address] 18376 Cardiovascular Catheterization Report Patient Name: ATIYA JHA Performing Physician: [id number] Howard MD Study Date: 12/02/2024 Verifying Physician: Zaira Howard MD MRN/PID: [id number] Shape Hand/Co-Scrub: Ordering Provider: [id number] DANIELA PORTILLO Date of /Age: 1005/07/1940 / 84 years Shape Hand: [id number] Jamia Ndiaye MD Gender: F Fellow: Surgeon: Study: PCI - Percutaneous Coronary Intervention Additional Study: Coronary Arteriogram Indications: ATIYA JHA is a 85 year old female who presents with hypertension, dyslipidemia, prior percutaneous coronary intervention and a chest pain assessment of typical angina. Worsening angina. Stress test performed: No. CTA performed: No. Agatston accessed: No. LVEF Assessed: No. Cardiac arrest: No. Cardiac surgical consult: Completed - cardiac surgery not recommended. Cardiovascular Instability: No Frailty status of patient entering lab: 5 = Mildly frail. Procedure Description: After infiltration with 2% Lidocaine, the right femoral artery was cannulated with a modified Seldinger technique. Subsequently a 6 Chinese sheath was placed in the right femoral artery. Selective coronary catheterization was performed using a 6 Fr catheter(s) exchanged over a guide wire to cannulate the coronary arteries. Additional catheter(s) used to visualize the coronary arteries were: XB3.0. Multiple injections of contrast were made into the left coronary arteries with angiograms recorded in multiple projections.After completion of the procedure, femoral artery angiography [...] a balloon was inflated for pre-dilation, Resolute [place] 2.5x15 stent was deployed in the lesiona balloon was inflated for post-dilation. Residual stenosis is 0 %. Coronary Interventions: Angiography reveals a 99% stenosis of the ostial left anterior descending coronary artery. Pre-intervention DERICK flow was 3. Percutaneous coronary intervention was performed within the ostial left anterior descending. The vessel was pre-dilated using a compliant balloon 2.0 mm x 12 mm at 12 KELI. Fro ntier Ananda drug-eluting stent 2.5 mm x 15 [...] Specimens Removed: Number of specimen(s) removed: none. (more content not included)...Ann Edwards MD - 12/02/2024 [facility], Retail Wireless Sales Representative [address] [place] [address] Cardiovascular Catheterization Report Patient Name: ATIYA JHA Performing Physician: Zaira Howard MD Study Date: 12/02/2024 Verifying Physician: Zaira Howard MD MRN/PID: [id number] Shape Hand/Co-Scrub: Ordering Provider: [id number] DANIELA PORTILLO Date of /Age: 1005/07/1940 / 84 years Shape Hand: [id number] Jamia Ndiaye MD Gender: F Fellow: Surgeon: Study: PCI - Percutaneous Coronary Intervention Additional Study: Coronary Arteriogram Indications: ATIYA JHA is a 85 year old female who presents with hypertension, dyslipidemia, prior percutaneous coronary intervention and a chest pain assessment of typical angina. Worsening angina. Stress test performed: No. CTA performed: NoKamaljit Ruano accessed: No. LVEF Assessed: No. Cardiac arrest: No. Cardiac surgical consult: Completed - cardiac surgery not recommended. Cardiovascular Instability: No Frailty status of patient entering lab: 5 = Mildly frail. Procedure Description: After infiltration with 2% Lidocaine, the right femoral artery was cannulated with a modified Seldinger technique. Subsequently a 6 Chinese sheath was placed in the right femoral artery. Selective coronary catheterization was performed using a 6 Fr catheter(s) exchanged over a guide wire to cannulate the coronary arteries. Additional catheter(s) used to visualize the coronary arteries were: XB3.0. Multiple injections of contrast were made into the left coronary arteries with angiograms recorded in multiple projections.After completion of the procedure, femoral artery angiography [...] Ananda 2.5x15 stent was deployed in the lesiona balloon was inflated for post-dilation. Residual stenosis is 0 %. Coronary Interventions: Angiography reveals a 99% stenosis of the ostial left anterior descending coronary artery. Pre-intervention DERICK flow was 3. Percutaneous coronary intervention was performed within the ostial left anterior descending. The vessel was pre-dilated using a compliant balloon 2.0 mm x 12 mm at 12 KELI. Fro ntier Ananda drug-eluting stent 2.5 mm x 15 [...] +---------+ Hemodynamic Pressures: +----+ + + + +-------- -+ Site Date Time Phase Name Systolic mmHg Diastolic mmHg Mean mmHg +----+ + + + +-------- -+ AO 12/02/2024 12:47:54 PM AIR REST 120 53 77 +----+ + + + +-------- -+ AO 12/02/2024 12:49:43 PM AIR REST 107 39 64 +----+ + + + +-------- -+ AO 12/02/2024 12:55:31 PM AIR REST 75 50 61 +----+ + + + +-------- -+ AO 12/02/2024 12:55:54 PM AIR REST 98 49 75 +----+ + + + +-------- -+ AO 12/02/2024 12:56:40 PM AIR REST 121 62 86 +----+ + + + +-------- -+ Cardiac Cath Post Procedure Notes: Post [...] Ananda 2.5x15 post-dilation : 0% residual stenosis. LAD:pre-procedure DERICK flow was 3(complete perfusion) and post-procedure DERICK flow was 3(complete perfusion). ICD 10 Codes: Angina pectoris, unspecified-I20.9 CPT Codes: (more content not included)...[facility] Work Phone: [facility] Work Phone: ECE 12-LEADon [phone] 12-LEADVentricular Rate 61 Atrial Rate 61 P-R Interval 184 QRS Duration 94 Q-T Interval 460 QTC Calculation(Bazett) 463 P [place] 24 R [place] 50 T [place] 80 QRS Count 10 Q Onset 222 P Onset 130 P Offset 179 T Offset 452 QTC Fredericia 462 Diagnosis Normal sinus rhythm Normal ECG When compared with ECG of 02-DEC-2024 06:15, (unconfirmed) No significant change was found Confirmed by Chay Manuel ([id number]) on 12/03/2024 3:56:28 PMNNew Ulm Medical CenterECG 12-LEADVentricular Rate 60 Atrial Rate 60 P-R Interval 174 QRS Duration 94 Q-T Interval 444 QTC Calculation(Bazett) 444 P [place] 7 R [place] 49 T [place] 85 QRS Count 10 Q Onset 218 P Onset 131 P Offset 181 T Offset 440 QTC Fredericia 444 Diagnosis Normal sinus rhythm Normal ECG When compared with ECG of 01-DEC-2024 06:51, (unconfirmed) No significant change was found Confirmed by Chay Manuel ([id number]) on 12/03/2024 3:40:27 PMNNew Ulm Medical CenterHeparin Assayon 43-89-2810Yqquqzm unfractionated Chromogenic method Qn (PPP)0.5UnOhio Valley Surgical HospitalHeparin unfractionated Chromogenic method Qn (PPP)on 13-24-6216Vwwxfoblzcnepu and review of laboratory resultsNormalUniOhioHealth Doctors HospitalThe therapeutic reference range for UFH may be either 0.3-0.6 IU/mL or 0.3-0.7 IU/mL based on the clinical setting for anticoagulant therapy and the associated nomogram used. For Heparin dosing guidelines based on clinical scenario and Heparin Assay results, please refer to local Pharmacy and the [facility] Guidelines for Anticoagulation Therapy available on the [facility] intranet at: https:/ [email or web address]/Pages/[place]_[facility]_Guidelines_for_ Anticoagu.aspxUnOhio Valley Surgical HospitalUnOhio Valley Surgical Hospital Heparin.unfractionatedon 81-58-4498Dgyehjg unfractionated Chromogenic method Qn (PPP)0.5 IU/mLNormalSee Comment Below for Therapeutic RangesMercer County Community HospitalComment on above:Order Comment: The therapeutic reference range for UFH may be either 0.3-0.6 IU/mL or 0.3-0.7 IU/mLbased on the clinical setting for anticoagulant therapy and the associated nomogram used. For Heparin dosing guidelines based on clinical scenario and Heparin Assay results, please refer to local Pharmacy and the [facility] Guidelines for Anticoagulation Therapy available on the [facility] intranet at: [email or web address] medical [email or web address]/Pages/[place]_[facility]_Guidelin es_for_Anticoagu.aspxPerformed By: #### 74502-4 #### SISSY HOGAN ([id number]) [facility] ([facility]) [address], [place] [address]Duuratxerdt 15-36-0238Prnuubfya [Mass/Vol]2.01 mg/dL1.60 - 2.40 mg/dLUnOhio Valley Surgical HospitalMagnesium [Mass/Vol]2.01 mg/dLNormal 1.60-2.40UnChillicothe HospitalComment on above:Performed By: #### 41403-7 #### SISSY HOGAN ([id number]) [facility] ([facility]) [address] [place] [address] 37790Zxdxdvrcx [Mass/Vol]on 77-52-8302Qyoohrymoufcfy and review of laboratory resultsNoalUMcCullough-Hyde Memorial HospitalNo Panel Informationon 44-40-0548JdkyzimrikOhio Valley Surgical HospitalBasic metabolic 2000 panelon 47-54-0303Cckox gap [Moles/Vol]13 mmol/L10 - 20 mmol/[facility] LimaCalcium [Mass/Vol]9.2 mg/dL8.6 - 10.3 mg/dLUnOhio Valley Surgical HospitalChloride [Moles/Vol]102 mmol/L98 - 107 mmol/[facility] Hospital LimaCO2 [Moles/Vol]27 mmol/L21 - 32 mmol/[facility] Creatinine [Mass/Vol]0.91 mg/dL0.50 - 1.05 mg/dLUnOhio Valley Surgical HospitalGFR/1.73 sq M.predicted among non-blacks MDRD (S/P/Bld) [Vol rate/Area] 62 mL/min/{1.73_m2}- PINFUniOhioHealth Doctors HospitalComment on above: Calculations of estimated GFR are performed using the 2020 CKD-EPI Study Refit equation without therace variable for the IDMS-Traceable creatinine methods. https://jasn.asnjournals.org/content//ASN.4938038718 Glucose [Mass/Vol]100 mg/jVWnhr94 - 99 mg/dLUnOhio Valley Surgical Hospital Interpretation and review of laboratory resultsAbnormalUniOhioHealth Doctors HospitalPotassium [Moles/Vol]3.8 mmol/L3.5 - 5.3 mmol/[facility] LimaSodium [Moles/Vol]138 mmol/L136 - 145 mmol/[facility] LimaUrea nitrogen [Mass/Vol]19 mg/dL6 - 23 mg/dLHolmes County Joel Pomerene Memorial HospitalAnion gap [Moles/Vol]13 mmol/UIvzaby07-82QbjmwygpvgChillicothe HospitalComment on above:Performed By: #### 40708-7 #### KAYIBGABRIEL HOGAN ([id number]) [facility] ([facility]) [address] [place] [address] 20677Dbuskxt [Mass/Vol]9.2 mg/dLNormal8.6-10.3UnChillicothe HospitalComment on above:Performed By: #### 86970-2 #### SISSY HOGAN ([id number]) [facility] ([facility]) [address] [place] [address] 43718Qsdhqwgh [Moles/Vol]102 mmol/QZjhhhh88-060FmojiyfdlcChillicothe HospitalComment on above:Performed By: #### 64805-5 #### KAYIBGABRIEL HOGAN ([id number]) [facility] ([facility]) [address] [place] [address] 44857HD9 [Moles/Vol]27 mmol/XYtgpjq54-00NklyzlfhntMercer County Community HospitalComment on above:Performed By: #### 68372-8 #### KAYIBGABRIEL HOGAN (51600) [facility] ([facility]) [address] [place] [address] 10861Myrjpuvsuo [Mass/Vol]0.91 mg/dLNormal0.50-1.05Mer[facility] County Community HospitalComment on above:Performed By: #### 88173-5 #### SISSY HOGAN ([id number]) [facility] ([facility]) [address] [place] [address] 66775Fivoznmuwj filtration rate/1.73 sq M. mL/min/1.73m*2 Normal>60UnChillicothe HospitalComment on above:Result Comment: Calculations of estimated GFR are performed using the 2020 CKD-EPI Study Refit equation without the race variable for the IDMS-Traceable creatinine methods. https://jasn.asnjournals.org/content/early//ASN.2288548268Imxzxtkdk By: #### 30228-0 #### SISSY HOGAN ([id number]) [facility] ([facility]) [address] [place] [address] 72053Fbgwggb [Mass/Vol]100 mg/bOYfit83-41OveylpemaxChillicothe HospitalComment on above:Performed By: #### 11521-8 #### SISSY HOGAN (99773) [facility] ([facility]) [address] [place] [address] 06557Ojkxadzra [Moles/Vol]3.8 mmol/LNormal3.5-5.3UnChillicothe HospitalComment on above:Performed By: #### 11463-3 #### SISSY HOGAN ([id number]) [facility] ([facility]) [address] [place] [address] 02273Rbvjcp [Moles/Vol]138 mmol/CPelbmn708-928QpftsyqkyoChillicothe HospitalComment on above:Performed By: #### 60868-7 #### SISSY HOGAN ([id number]) [facility] ([facility]) [address] [place] [address] 04719Rlxu nitrogen [Mass/Vol]19 mg/dLNormal6-23Mer[facility] County Community HospitalComment on above:Performed By: #### 83840-4 #### SISSY HOGAN ([id number]) [facility] ([facility]) [address], [place] [address]VBS panel Auto (Bld)on 17-96-6980Npypirpejzj distribution width (RBC) [Ratio]12.9 %11.5 - 14.5 %[facility] HospitalHematocrit (Bld) [Volume fraction]33.7 %Low36.0 - 46.0 %[facility] Hemoglobin (Bld) [Mass/Vol]11.2 g/dLLow12.0 - 16.0 g/dLHolmes County Joel Pomerene Memorial HospitalInterpretation and review of laboratory resultsAbnoDetwiler Memorial Hospital (RBC) [Entitic mass]31.5 pg26.0 - 34.0 pgBethesda North HospitalHC (RBC) [Mass/Vol]33.2 g/dL32.0 - 36.0 g/dLBethesda North HospitalV (RBC) [Entitic vol]95 fL80 - 100 [facility] CenterniOhioHealth Doctors HospitalNucleated RBC/100 WBC (Bld) [Ratio]0 %[facility] HospitalPlatelets (Bld) [#/Vol]163 10*3/[facility] RBC (Bld) [#/Vol]3.55 10*6/[facility] Medical CenterWBC (Bld) [#/Vol]6 10*3/[facility] HealthcareUnOhio Valley Surgical HospitalErythrocyte distribution width (RBC) [Ratio]12.9 %Lvnpmt89.5-14.5 [facility] HospitalComment on above:Performed By: #### 3274-8 #### SISSY HOGAN ([id number]) [facility] ([facility]) [address], [place] [address]Kbageacpre (Bld) [Volume fraction]33.7 %Low36.0-46.0UnChillicothe HospitalComment on above:Performed By: #### 3274-8 #### SISSY HOGAN ([id number]) [facility] ([facility]) [address] [place] [address] 86193Ngtopjrjcx (Bld) [Mass/Vol]11.2 g/dLLow12.0-16.0Mer[facility] County Community HospitalComment on above:Performed By: #### 3274-8 #### SISSY HOGAN ([id number]) [facility] ([facility]) [address] [place] [address] 04111ZJP (RBC) [Entitic mass]31.5 pxTfktbe06.0-34.0UnChillicothe HospitalComment on above:Performed By: #### 3274-8 #### SISSY HOGAN (46539) [facility] ([facility]) [address] [place] [address] 85496DIPB (RBC) [Mass/Vol]33.2 g/mXZuhbrn81.0-36.0UnChillicothe HospitalComment on above:Performed By: #### 5884-8 #### SISSY HOGAN ([id number]) [facility] ([facility]) [address] [place] [address] 83743ZJP (RBC) [Entitic vol]95 aYJhyyom39-135IojqeiywslChillicothe HospitalComment on above:Performed By: #### 3274-8 #### SISSY HOGAN ([id number]) [facility] ([facility]) [address] [place] [address] 45524Cauoigtsm RBC/100 WBC (Bld) [Ratio]0.0 /100 WBCsNormal0.0-0.0 [facility] HospitalComment on above:Performed By: #### 3274-8 #### SISSY HOGAN ([id number]) [facility] ([facility]) [address] [place] [address] 03916Uacxtbaao (Bld) [#/Vol]163 x10*3/vWXgrjvd681-967XjmyhmqhidChillicothe HospitalComment on above:Performed By: #### 4484-8 #### SISSY HOGAN ([id number]) [facility] ([facility]) [address] [place] [address] 64918ULP (Bld) [#/Vol]3.55 x10*6/uLLow4.00-5.20UnChillicothe HospitalComment on above:Performed By: #### 3274-8 #### SISSY HOGAN (78141) [facility] ([facility]) [address] [place] [address] 50626LEZ (Bld) [#/Vol]6.0 x10*3/uLNormal4.4-11.3Mer[facility] County Community HospitalComment on above:Performed By: #### 3274-8 #### SISSY HOGAN (74791) [facility] ([facility]) [address] [place] [address] 50285Osurcezbfgf distribution width (RBC) [Ratio]13.1 %11.5 - 14.5 % [facility] HospitalHematocrit (Bld) [Volume fraction]32.8 %Low36.0 - 46.0 %[facility] HospitalHemoglobin (Bld) [Mass/Vol]11.2 g/dLLow 12.0 - 16.0 g/dLHolmes County Joel Pomerene Memorial HospitalInterpretation and review of laboratory resultsAbnormalUSt. Mary's Medical Center (RBC) [Entitic mass]32.2 pg26.0 - 34.0 pgUnHarrison Community HospitalHC (RBC) [Mass/Vol] 34.1 g/dL32.0 - 36.0 g/dLBethesda North HospitalV (RBC) [Entitic vol]94 fL80 - 100 fLUniOhioHealth Doctors HospitalNucleated RBC/100 WBC (Bld) [Ratio]0 %[facility] HospitalPlatelets (Bld) [#/Vol]152 10*3/uL [facility] HospitalRBC (Bld) [#/Vol]3.48 10*6/uLLowHolmes County Joel Pomerene Memorial HospitalWBC (Bld) [#/Vol]6.6 10*3/uLUnOhio Valley Surgical HospitalUniversity Hospitals of ClevelandErythrocyte distribution width (RBC) [Ratio]13.1 %Dwrvnw72.5-14.5UnChillicothe HospitalComment on above:Performed By: #### 7644-8 #### SISSY HOGAN ([id number]) [facility] ([facility]) [address] [place] [address] 12242Zjmbsyyreq (Bld) [Volume fraction]32.8 %Low36.0-46.0UnChillicothe HospitalComment on above:Performed By: #### 5464-8 #### SISSY HOGAN ([id number]) [facility] ([facility]) [address] [place] [address] 80571Niqmezzkah (Bld) [Mass/Vol]11.2 g/dLLow12.0-16.0UnChillicothe HospitalComment on above:Performed By: #### 3554-8 #### SISSY HOGAN (52305) [facility] ([facility]) [address] [place] [address] 47192FZS (RBC) [Entitic mass]32.2 cjOqwerg25.0-34.0UnChillicothe HospitalComment on above:Performed By: #### 0544-8 #### SISSY HOGAN ([id number]) [facility] ([facility]) [address] [place] [address] [id number] (RBC) [Mass/Vol]34.1 g/wSCyqmyy51.0-36.0UnChillicothe HospitalComment on above:Performed By: #### 8154-8 #### SISSY HOGAN ([id number]) [facility] ([facility]) [address] [place] [address] 79564YGS (RBC) [Entitic vol]94 kGYrnicn63-293GkmadlvmgeChillicothe HospitalComment on above:Performed By: #### 3504-8 #### SISSY HOGAN ([id number]) [facility] ([facility]) [address] [place] [address] 84338Gumfqxoey RBC/100 WBC (Bld) [Ratio]0.0 /100 WBCsNormal0.0-0.0 [facility] HospitalComment on above:Performed By: #### 3274-8 #### SISSY HOGAN ([id number]) [facility] ([facility]) [address] [place] [address] 17108Jihzwluvb (Bld) [#/Vol]152 x10*3/rOFcbxqb139-052LdqxcqusgcChillicothe HospitalComment on above:Performed By: #### 3274-8 #### KAYIBGABRIEL HOGAN ([id number]) [facility] ([facility]) [address] [place] [address] 08646MBV (Bld) [#/Vol]3.48 x10*6/uLLow4.00-5.20UnChillicothe HospitalComment on above:Performed By: #### 3274-8 #### SISSY HOGAN ([id number]) [facility] ([facility]) [address] [place] [address] 95821WEI (Bld) [#/Vol]6.6 x10*3/uLNormal4.4-11.3UnChillicothe HospitalComment on above:Performed By: #### 3274-8 #### SISSY MITCHELL RIO EDIN ([id number]) [facility] ([facility]) [address] [place] [address] 79789IVS 12-LEADon 59-40-9100XJU 12-LEADVentricular Rate 61 Atrial Rate 61 P-R Interval 168 QRS Duration 88 Q-T Interval 438 QTC Calculation(Bazett) 440 P [place] 27 R [place] 50 T [place] 85 QRS Count 10 Q Onset 217 P Onset 133 P Offset 176 T Offset 436 QTC Fredericia 440 Diagnosis Normal sinus rhythm Normal ECG When compared with ECG of 30-NOV-2024 18:38, (unconfirmed) Aberrant conduction is no longer Present Confirmed by Chay Manuel ([id number]) on 12/03/2024 3:25:26 PMNormalLyons VA Medical CenterHeparin Assayon 75-72-0410Klcxyfl unfractionated Chromogenic method Qn (PPP)0.4[facility] Memorial HospitalHeparin Assay, UFHon 51-65-7874Irjtasf unfractionated Chromogenic method Qn (PPP)0.5[facility] HospitalHeparin unfractionated Chromogenic method Qn (PPP)on 83-50-8737Zewrgfbemsxacw and review of laboratory resultsNoMemorial Health SystemThe therapeutic reference range for UFH may be either 0.3- 0.6 IU/mL or 0.3-0.7 IU/mL based on the clinical setting for anticoagulant therapy and the associated nomogram used. For Heparin dosing guidelines based on clinical scenario and Heparin Assay results, please refer to local Pharmacy and [facility] Guidelines for Anticoagulation Therapy available on the [facility] intranet at: https:/ /[facility].org/Pharmacy/Pages/[place]_[facility]_Guidelines_for_ Anticoagu.aspxBethesda North Hospital Interpretation and review of laboratory resultsNormKindred HealthcareThe therapeutic reference range for UFH may be either 0.3-0.6 IU/mL or 0.3-0.7 IU/mL based on the clinical setting for anticoagulant therapy and the associated nomogram used. For Heparin dosing guidelines based on clinical scenario and Heparin Assay results, please refer to local Pharmacy and the [facility] Guidelines for Anticoagulation Therapy available on the [facility] intranet at: https:/ /[facility].org/Pharmacy/Pages/[place]_[facility]_Guidelines_for_ Anticoagu.aspxBethesda North Hospital Heparin.unfractionatedon 45-67-7711Kcswwdg unfractionated Chromogenic method Qn (PPP)0.4 IU/mLNormalSee Comment Below for Therapeutic RangesMercer County Community HospitalComment on above:Order Comment: The therapeutic reference range for UFH may be either 0.3-0.6 IU/mL or 0.3-0.7 IU/mLbased on the clinical setting for anticoagulant therapy and the associated nomogram used. For Heparin dosing guidelines based on clinical scenario and Heparin Assay results, please refer to local Pharmacy and [facility] Guidelines for Anticoagulation Therapy available on the [facility] intranet at: https://[facility]/Pharmacy/Pages/[place]_[facility] es_for_Anticoagu.aspxPerformed By: #### 40181-4 #### SISSY HOGAN ([id number]) [facility] ([facility]) [address] [place] [address] 84562Pfsctse unfractionated Chromogenic method Qn (PPP)0.5 IU/mL NormalSee Comment Below for Therapeutic RangesUnChillicothe HospitalComment on above:Order Comment: The therapeutic reference range for UFH may be either 0.3-0.6 IU/mL or 0.3-0.7 IU/mLbased on the clinical setting for anticoagulant therapy and the associated nomogram used. For Heparin dosing guidelines based on clinical scenario and Heparin Assay results, please refer to local Pharmacy and the [facility] Guidelines for Anticoagulation Therapy available on the [facility] intranet at: https://[facility]/Pharmacy/Pages/[place]_[facility] es_for_Anticoagu.aspxPerformed By: #### 3274-8 #### SISSY HOGNA ([id number]) [facility] ([facility]) [address] [place] [address] 31993Xnthzcndwyr 79-72-1298Fsvtnzzdk [Mass/Vol]1.93 mg/dL1.60 - 2.40 mg/dLHolmes County Joel Pomerene Memorial HospitalMagnesium [Mass/Vol]1.93 mg/dLNormal 1.60-2.40Mer[facility] County Community HospitalComment on above:Performed By: #### 49117-8 #### SISSY HOGAN ([id number]) [facility] (EM) [address] [place] [address] 09848Tfkubmufs [Mass/Vol]on 21-69-1801Oxepklfetcawaa and review of laboratory resultsNormalUniOhioHealth Doctors HospitalNo Panel Informationon 44-83-5467FkdkamfwepOhio Valley Surgical HospitalCB W Auto Differential panel (Bld)on 00-40-9453Bjgflyvjt (Bld) [#/Vol]0.04 10*3/uLHolmes County [facility] Hospital Basophils/100 WBC (Bld)0.7 %0.0 - 2.0 %[facility] Eosinophils (Bld) [#/Vol]0.19 10*3/uLHolmes County [facility] Memorial Hospital Eosinophils/100 WBC (Bld)3.5 %0.0 - 6.0 %[facility] Erythrocyte distribution width (RBC) [Ratio]13.2 %11.5 - 14.5 %[facility] Memorial HospitalHematocrit (Bld) [Volume fraction]34.1 %Low36.0 - 46.0 % [facility] HospitalHemoglobin (Bld) [Mass/Vol]11.3 g/dLLow12.0 - 16.0 g/dLUnOhio Valley Surgical HospitalImmakettering health – soin medical center granulocytes (Bld) [#/Vol] 0.01 10*3/[facility] HealthcareImresearch psychiatric center granulocytes/100 WBC (Bld) 0.2 %0.0 - 0.9 %[facility] HospitalComment on above:Immature Granulocyte Count (IG) includes promyelocytes, myelocytes and metamyelocytes but does not include bands. Percent differential counts (%) should be interpreted in the context of the absolute cell counts (cells/UL).Interpretation and review of laboratory resultsAbnormalUMcCullough-Hyde Memorial HospitalLymphocytes (Bld) [#/Vol]1.84 10*3/uLHolmes County Joel Pomerene Memorial HospitalLymphocytes/100 WBC (Bld) 33.6 %13.0 - 44.0 %[facility] Memorial HospitalMCH (RBC) [Entitic mass]31.5 pg26.0 - 34.0 pgUnOhio Valley Surgical HospitalMCHC (RBC) [Mass/Vol]33.1 g/dL 32.0 - 36.0 g/dLBethesda North HospitalV (RBC) [Entitic vol]95 fL80 - 100 fLUniOhioHealth Doctors HospitalMonocytes (Bld) [#/Vol]0.68 10*3/uL [facility] HospitalMonocytes/100 WBC (Bld)12.4 %2.0 - 10.0 % [facility] Memorial HospitalNeutrophils (Bld) [#/Vol]2.72 10*3/uLUnOhio Valley Surgical HospitalComment on above:Percent differential counts (%) should be interpreted in the context of the absolute cell counts (cells/uL). Neutrophils/100 WBC (Bld)49.6 %40.0 - 80.0 %[facility] Nucleated RBC/100 WBC (Bld) [Ratio]0 %[facility] Memorial HospitalPlatelets (Bld) [#/Vol]147 10*3/uLPike Community HospitalRBC (Bld) [#/Vol] 3.59 10*6/[facility] CenterWBC (Bld) [#/Vol]5.5 10*3/uL [facility] HospitalUnOhio Valley Surgical HospitalBasophils (Bld) [#/Vol]0.04 x10*3/uLNormal0.00-0.10Mer[facility] County Community HospitalComment on above:Performed By: #### 56248-6 #### ANAIBELILIZZY HOGAN ([id number]) [facility] (C) [address] [place] [address] 23062Uwgfyifjg/100 WBC (Bld)0.7 %Normal0.0-2.0Mer[facility] County Community HospitalComment on above:Performed By: #### 20605-3 #### KAYIBGABRIEL HOGAN ([id number]) [facility] ([facility]) [address] [place] [address] 00242Yaabkfwgnhi (Bld) [#/Vol]0.19 x10*3/uLNormal0.00-0.40[facility] Community HospitalComment on above:Performed By: #### 33951-1 #### KAYIBGABRIEL HOGAN ([id number]) [facility] ([facility]) [address] [place] [address] 25374Mthjlghsyhp/100 WBC (Bld)3.5 %Normal0.0-6.0UnChillicothe HospitalComment on above:Performed By: #### 23047-5 #### ANAIBELILIZZY HOGAN ([id number]) [facility] ([facility]) [address] [place] [address] 01823Uwxnrqzngcf distribution width (RBC) [Ratio]13.2 %Normal 11.5-14.5Mer[facility] County Community HospitalComment on above:Performed By: #### 85761-7 #### SISSY HOGAN ([id number]) [facility] ([facility]) [address] [place] [address] 18285Guyibsnljc (Bld) [Volume fraction]34.1 %Low36.0-46.0UnChillicothe HospitalComment on above:Performed By: #### 93433-3 #### SISSY HOGAN ([id number]) [facility] ([facility]) [address] [place] [address] 66586Bqgjtfkljh (Bld) [Mass/Vol]11.3 g/dLLow12.0-16.0UnChillicothe HospitalComment on above:Performed By: #### 50670-6 #### SISSY HOGAN ([id number]) [facility] ([facility]) [address] [place] [address] 76428Qtegtlpt granulocytes (Bld) [#/Vol]0.01 x10*3/uLNormal0.00-0.50 [facility] HospitalComment on above:Performed By: #### 55719-6 #### SISSY HOGAN ([id number]) [facility] ([facility]) [address] [place] [address] 66503Rpduxiat granulocytes/100 WBC (Bld)0.2 %Normal0.0-0.9UnChillicothe HospitalComment on above:Result Comment: Immature Granulocyte Count (IG) includes promyelocytes, myelocytes and metamyelocytes but does not include bands. Percent differential counts (%) should be interpreted in the context of the absolute cell counts (cells/UL).Performed By: #### 52322-6 #### SISSY HOGAN ([id number]) [facility] ([facility]) [address] [place] [address] 79643Mjroiexdyko (Bld) [#/Vol]1.84 x10*3/uLNormal0.80-3.00Mer[facility] County Community HospitalComment on above:Performed By: #### 93179-0 #### SISSY HOGAN ([id number]) [facility] ([facility]) [address] [place] [address] 87943Tnysoahmpxi/100 WBC (Bld)33.6 %Tobwjl25.0-44.0UnChillicothe HospitalComment on above:Performed By: #### 54524-6 #### SISSY HOGAN (76054) [facility] ([facility]) [address] [place] [address] 98186WOA (RBC) [Entitic mass]31.5 ifYqfkmm19.0-34.0UnChillicothe HospitalComment on above:Performed By: #### 57004-1 #### SISSY HOGAN (54266) [facility] ([facility]) [address] [place] [address] 66466QZWJ (RBC) [Mass/Vol]33.1 g/eALiouel24.0-36.0UnChillicothe HospitalComment on above:Performed By: #### 99301-4 #### SISSY HOGAN ([id number]) [facility] ([facility]) [address] [place] [address] 44252NBT (RBC) [Entitic vol]95 xKGdjrpm97-274UrgowizhrdChillicothe HospitalComment on above:Performed By: #### 58014-0 #### SISSY HOGAN ([id number]) [facility] ([facility]) [address] [place] [address] 66509Vmweqowrv (Bld) [#/Vol]0.68 x10*3/uLNormal0.05-0.80Mer[facility] County Community HospitalComment on above:Performed By: #### 71940-9 #### SISSY HOGAN ([id number]) [facility] ([facility]) [address] [place] [address] 24094Qstiwtalr/100 WBC (Bld)12.4 %Normal2.0-10.0UnChillicothe HospitalComment on above:Performed By: #### 68963-8 #### SISSY HOGAN ([id number]) [facility] ([facility]) [address] [place] [address] 42842Bgvgabajdsn (Bld) [#/Vol]2.72 x10*3/uLNormal1.60-5.50UnChillicothe HospitalComment on above:Result Comment: Percent differential counts (%) should be interpreted in the context of the absolute cell counts (cells/uL).Performed By: #### 75013-4 #### SISSY HOGAN ([id number]) [facility] ([facility]) [address] [place] [address] 38395Bplryfshyvy/100 WBC (Bld)49.6 %Yhqepo45.0-80.0Mer[facility] County Community HospitalComment on above:Performed By: #### 46717-0 #### SISSY HOGAN ([id number]) [facility] ([facility]) [address] [place] [address] 89640Zmuqjrswz RBC/100 WBC (Bld) [Ratio]0.0 /100 WBCsNormal0.0-0.0 [facility] HospitalComment on above:Performed By: #### 60539-0 #### SISSY HOGAN (58953) [facility] ([facility]) [address] [place] [address] 28680Owrbwxwqc (Bld) [#/Vol]147 x10*3/xLGno834-191FyifdxqiweChillicothe HospitalComment on above:Performed By: #### 55370-2 #### SISSY HOGAN ([id number]) [facility] ([facility]) [address] [place] [address] 29332BGV (Bld) [#/Vol]3.59 x10*6/uLLow4.00-5.20UnChillicothe HospitalComment on above:Performed By: #### 13264-3 #### SISSY ASA EDIN ([id number]) [facility] ([facility]) [address] [place] [address] 65218SYO (Bld) [#/Vol]5.5 x10*3/uLNormal4.4-11.3Mer[facility] County Community HospitalComment on above:Performed By: #### 99521-6 #### SISSY [facility] ([id number]) [facility] ([facility]) [address] [place] [address] 02235XJ Chest WO contraston . Normal caliber ascending aorta with the only [...] Jonas Baxter 11/30/2024 8:56 AM Dictation workstation: [id number] By: Jonas Baxter, STUDY: CT CHEST WO IV CONTRAST; 11/29/2024 5:38 pm INDICATION: Signs/Symptoms:pre-op cardiac surgery; assess ascending for size and atherosclerosis. COMPARISON: None. ACCESSION NUMBER(S): [id number] ORDERING CLINICIAN: IRINEO LAUGHLIN TECHNIQUE: Helical data [...] thoracic aggressive osteolytic or osteoblastic lesion. [facility] MMODALJonas Baxter MD - 11/30/2024 Interpreted By: Jonas Baxter, STUDY: CT CHEST WO IV CONTRAST; 11/29/2024 5:38 pm INDICATION: Signs/Symptoms:pre-op cardiac surgery; assess ascending for size and atherosclerosis. COMPARISON: None. ACCESSION NUMBER(S): [id number] ORDERING CLINICIAN: IRINEO LAUGHLIN TECHNIQUE: Helical data [...] Jonas Baxter 11/30/2024 8:56 AM Dictation workstation: [id number] [facility] Work Phone: UnOhio Valley Surgical Hospital Work Phone: Comprehensive metabolic 2000 panelon 19-66-9575Tjhmgrh BCP dye [Mass/Vol]3.8 g/dL3.4 - 5.0 g/dLUnOhio Valley Surgical HospitalALP [Catalytic activity/Vol]42 U/L33 - 136 U/[facility] LimaALT With P-5'-P [Catalytic activity/Vol]10 U/L7 - 45 U/[facility] on above:Patients treated with Sulfasalazine may generate falsely decreased results for ALT.Anion gap [Moles/Vol]11 mmol/L10 - 20 mmol/L [facility] HospitalAST With P-5'-P [Catalytic activity/Vol]15 U/L9 - 39 U/[facility] LimaBilirubin [Mass/Vol]0.8 mg/dL0.0 - 1.2 mg/dLUnOhio Valley Surgical HospitalCalcium [Mass/Vol]9.3 mg/dL8.6 - 10.3 mg/dLUnOhio Valley Surgical HospitalChloride [Moles/Vol]104 mmol/L98 - 107 mmol/[facility] LimaCO2 [Moles/Vol]27 mmol/L21 - 32 mmol/L [facility] HospitalCreatinine [Mass/Vol]0.71 mg/dL0.50 - 1.05 mg/dLUnOhio Valley Surgical HospitalGFR/1.73 sq M.predicted among non-blacks MDRD (S/P/Bld) [Vol rate/Area]83 mL/min/{1.73_m2}- PINFUniParkwood Hospital on above:Calculations of estimated GFR are performed using the 2020 CKD-EPI Study Refit equation without therace variable for the IDMS- Traceable creatinine methods. https://jasn.asnjournals.org/content//ASN.4056945865 Glucose [Mass/Vol]107 mg/jMFsqj47 - 99 mg/dLUnOhio Valley Surgical Hospital Interpretation and review of laboratory resultsAbnormalUniversIndiana University Health Bloomington HospitalPotassium [Moles/Vol]3.8 mmol/L3.5 - 5.3 mmol/[facility] LimaProtein [Mass/Vol]6 g/dLLow6.4 - 8.2 g/dLUnOhio Valley Surgical HospitalSodium [Moles/Vol]138 mmol/L136 - 145 mmol/[facility] Hospital LimaUrea nitrogen [Mass/Vol]16 mg/dL6 - 23 mg/dLUnOhio Valley Surgical HospitalUnOhio Valley Surgical HospitalAlbumin BCP dye [Mass/Vol]3.8 g/dL Normal3.4-5.0UnChillicothe HospitalComment on above: Performed By: #### 85820-0 #### SISSY HOGAN ([id number]) [facility] ([facility]) [address] [place] [address] 88550SHT [Catalytic activity/Vol]42 U/CSpjvrh52-819HzjextolnmChillicothe HospitalComment on above:Performed By: #### 44209-3 #### SISSY HOGAN ([id number]) [facility] ([facility]) [address] [place] [address] 25780PJK With P-5'-P [Catalytic activity/Vol]10 U/LNormal7-45 [facility] Community HospitalComment on above:Result Comment: Patients treated with Sulfasalazine may generate falsely decreased results for ALT.Performed By: #### 28327-8 #### SISSY HOGAN (90545) [facility] ([facility]) [address] [place] [address] 13470Qtebn gap [Moles/Vol]11 mmol/HIsnfrm27-91DjenejtzzrChillicothe HospitalComment on above:Performed By: #### 28024-8 #### SISSY HOGAN ([id number]) [facility] ([facility]) [address] [place] [address] 62658FEY With P-5'-P [Catalytic activity/Vol]15 U/LNormal9-39 [facility] HospitalComment on above:Performed By: #### 98663-5 #### SISSY HOGAN ([id number]) [facility] ([facility]) [address] [place] [address] 65131Kanzalhow [Mass/Vol]0.8 mg/dLNormal0.0-1.2UnChillicothe HospitalComment on above:Performed By: #### 02881-1 #### SISSY HOGAN (60683) [facility] ([facility]) [address] [place] [address] 10758Kmerkuj [Mass/Vol]9.3 mg/dLNormal8.6-10.3[facility] Community HospitalComment on above:Performed By: #### 04838-7 #### SISSY HOGAN ([id number]) [facility] (EM) [address] [place] [address] 18422Cscpzhrz [Moles/Vol]104 mmol/FHnuwsz02-266AwvaptrxbwChillicothe HospitalComment on above:Performed By: #### 43488-6 #### SISSY HOGAN (52372) [facility] ([facility]) [address] [place] [address] 99759DE4 [Moles/Vol]27 mmol/TKngjqj96-09UtcsvkntkfChillicothe HospitalComment on above:Performed By: #### 47203-0 #### SISSY HOGAN (34676) [facility] ([facility]) [address] [place] [address] 42518Hondjwsrgn [Mass/Vol]0.71 mg/dLNormal0.50-1.05UnChillicothe HospitalComment on above:Performed By: #### 71586-1 #### SISSY HOGAN (41050) [facility] ([facility]) [address] [place] [address] 28556Xzfudtpxje filtration rate/1.73 sq M.oebvimyml08 mL/min/1.73m*2 Normal>60UnChillicothe HospitalComment on above:Result Comment: Calculations of estimated GFR are performed using the 2020 CKD-EPI Study Refit equation without the race variable for the IDMS-Traceable creatinine methods. https://jasn.asnjournals.org/content//ASN.1763499306Nujiqqmoq By: #### 29157-0 #### SISSY HOGAN ([id number]) [facility] ([facility]) [address] [place] [address] 34271Ekpxxqo [Mass/Vol]107 mg/zXBcey84-40YkspdqafybChillicothe HospitalComment on above:Performed By: #### 23741-6 #### SISSY HOGAN ([id number]) [facility] ([facility]) [address] [place] [address] 88918Rvtyoqecw [Moles/Vol]3.8 mmol/LNormal3.5-5.3[facility] HospitalComment on above:Performed By: #### 27932-1 #### SISSY HOGAN (59654) [facility] ([facility]) [address] [place] [address] 63082Tpzrvuy [Mass/Vol]6.0 g/dLLow6.4-8.2[facility] HospitalComment on above:Performed By: #### 12046-6 #### SISSY HOGAN (01559) [facility] ([facility]) [address] [place] [address] 92847Rtwkpe [Moles/Vol]138 mmol/NCmmldx735-559FjahivvhxpMercer County Community HospitalComment on above:Performed By: #### 56709-2 #### KAYIBGABRIEL HOGAN (04139) [facility] ([facility]) [address] [place] [address] 19540Lobt nitrogen [Mass/Vol]16 mg/dLNormal6-23Mer[facility] Community HospitalComment on above:Performed By: #### 90158-3 #### KAYIBGABRIEL HOGAN ([id number]) [facility] ([facility]) [address] [place] [address] 14305UAL 12-LEADon 22-89-7358YAN 12-LEADVentricular Rate 67 Atrial Rate 67 P-R Interval 196 QRS Duration 86 Q-T Interval 440 QTC Calculation(Bazett) 464 P [place] 49 R [place] 15 T [place] 82 QRS Count 11 Q Onset 217 P Onset 119 P Offset 180 T Offset 437 QTC Fredericia 456 Diagnosis Sinus rhythm with Premature ventricular complexes Otherwise normal ECG When compared with ECG of 30-NOV-2024 08:54, (unconfirmed) No significant change was found Confirmed by Chay Manuel ([id number]) on 12/03/2024 3:19:53 [facility]EC[facility] 12-LEADVentricular Rate 78 Atrial Rate 78 P-R Interval 192 QRS Duration 88 Q-T Interval 414 QTC Calculation(Bazett) 471 P [place] 81 R [place] 63 T [place] 88 QRS Count 13 Q Onset 220 P Onset 124 P Offset 181 T Offset 427 QTC Fredericia 451 Diagnosis Sinus rhythm with occasional Premature ventricular complexes Otherwise normal ECG No previous ECGs available Confirmed by Chay Manuel ([id number]) on 12/03/2024 3:09:36 [facility] HospitalHeparin Assayon 48-27-3882Jknsylc unfractionated Chromogenic method Qn (PPP)0.5[facility] HospitalHeparin unfractionated Chromogenic method Qn (PPP)0.8[facility] HospitalHeparin unfractionated Chromogenic method Qn (PPP)0.8[facility] Heparin AssayOrdered By: González Pena on 76-79-2126Iohelix unfractionated Chromogenic method Qn (PPP)0.5[facility] HospitalHeparin unfractionated Chromogenic method Qn (PPP)on 63-02-1894Jroqhmvzkaepwe and review of laboratory resultsNormalUniOhioHealth Doctors HospitalThe therapeutic reference range for UFH may be either 0.3-0.6 IU/mL or 0.3-0.7 IU/mL based on the clinical setting for anticoagulant therapy and the associated nomogram used. For Heparin dosing guidelines based on clinical scenario and Heparin Assay results, please refer to local Pharmacy and the [facility] Guidelines for Anticoagulation Therapy available on the [facility] intranet at: https:/ [email or web address]/Pharmacy/Pages/[place]_[facility]_Guidelines_for_ Anticoagu.aspxBethesda North Hospital Interpretation and review of laboratory resultsNoMemorial Health SystemThe therapeutic reference range for UFH may be either 0.3-0.6 IU/mL or 0.3-0.7 IU/mL based on the clinical setting for anticoagulant therapy and the associated nomogram used. For Heparin dosing guidelines based on clinical scenario and Heparin Assay results, please refer to local Pharmacy and the [facility] Guidelines for Anticoagulation Therapy available on the [facility] intranet at: https:/ /[email or web address]/Pharmacy/Pages/[place]_[facility]_Guidelines_for_ Anticoagu.aspC[facility] Clinic [facility] Interpretation and review of laboratory resultsNoMemorial Health SystemThe therapeutic reference range for UFH may be either 0.3-0.6 IU/mL or 0.3-0.7 IU/mL based on the clinical setting for anticoagulant therapy and the associated nomogram used. For Heparin dosing guidelines based on clinical scenario and Heparin Assay results, please refer to local Pharmacy and the [facility] Guidelines for Anticoagulation Therapy available on the [facility] intranet at: https:/ /[email or web address].org/Pharmacy/Pages/[place]_[facility]_Guidelines_for_ Anticoagu.aspTriHealth McCullough-Hyde Memorial HospitalHeparin unfractionated Chromogenic method Qn (PPP)Ordered By: González Pena on 97-75-9398Drrzaoazxvvhxe and review of laboratory resultsNoMemorial Health SystemThe therapeutic reference range for UFH may be either 0.3-0.6 IU/mL or 0.3-0.7 IU/mL based on the clinical setting for anticoagulant therapy and the associated nomogram used. For Heparin dosing guidelines based on clinical scenario and Heparin Assay results, please refer to local Pharmacy and the [facility] Guidelines for Anticoagulation Therapy available on the [facility] intranet at: https:/ /[facility].org/Pharmacy/Pages/[place]_[facility]_Guidelines_for_ Anticoagu.aspxBet[facility]da [facility] Hospital Heparin.unfractionatedon 35-72-1372Bltbjxn unfractionated Chromogenic method Qn (PPP)0.5 IU/mLNormalSee Comment Below for Therapeutic RangesMercer County Community HospitalComment on above:Order Comment: The therapeutic reference range for UFH may be either 0.3-0.6 IU/mL or 0.3-0.7 IU/mLbased on the clinical setting for anticoagulant therapy and the associated nomogram used. For Heparin dosing guidelines based on clinical scenario and Heparin Assay results, please refer to local Pharmacy and the [facility] Guidelines for Anticoagulation Therapy available on the [facility] intranet at: https://[facility].org/Pharmacy/Pages/[place]_[facility] es_for_Anticoagu.aspxPerformed By: #### 3274-8 #### SISSY HOGAN ([id number]) [facility] ([facility]) [address] [place] [address] 16199Mwotgvw unfractionated Chromogenic method Qn (PPP)0.5 IU/mL NormalSee Comment Below for Therapeutic RangesMercer County Community HospitalComment on above:Order Comment: The therapeutic reference range for UFH may be either 0.3-0.6 IU/mL or 0.3-0.7 IU/mLbased on the clinical setting for anticoagulant therapy and the associated nomogram used. For Heparin dosing guidelines based on clinical scenario and Heparin Assay results, please refer to local Pharmacy and the [facility] Guidelines for Anticoagulation Therapy available on the [facility] intranet at: https://[facility]/Pharmacy/Pages/[facility] es_for_Anticoagu.aspxPerformed By: #### 3274-8 #### SISSY HOGAN ([id number]) [facility] ([facility]) [address] [place] [address] 88112Hydkerv unfractionated Chromogenic method Qn (PPP)0.8 IU/mL NormalSee Comment Below for Therapeutic RangesMercer County Community HospitalComment on above:Order Comment: The therapeutic reference range for UFH may be either 0.3-0.6 IU/mL or 0.3-0.7 IU/mLbased on the clinical setting for anticoagulant therapy and the associated nomogram used. For Heparin dosing guidelines based on clinical scenario and Heparin Assay results, please refer to local Pharmacy and the [facility] Guidelines for Anticoagulation Therapy available on the [facility] intranet at: https://[email or web address].org/Pharmacy/Pages/[place]_[facility] es_for_Anticoagu.aspxPerformed By: #### 3274-8 #### SISSY HOGAN ([id number]) [facility] (EM) [address] [place] [address] 18302Bugicjn unfractionated Chromogenic method Qn (PPP)0.8 IU/mL NormalSee Comment Below for Therapeutic RangesMercer County Community HospitalComment on above:Order Comment: The therapeutic reference range for UFH may be either 0.3-0.6 IU/mL or 0.3-0.7 IU/mLbased on the clinical setting for anticoagulant therapy and the associated nomogram used. For Heparin dosing guidelines based on clinical scenario and Heparin Assay results, please refer to local Pharmacy and [facility] Guidelines for Anticoagulation Therapy available on the [facility] intranet at: https://[facility]/Pharmacy/Pages/[place]_[facility] es_for_Anticoagu.aspxPerformed By: #### 3274-8 #### SISSY HOGAN ([id number]) [facility] ([facility]) [address] [place] [address] 11952Dxkoy extremity vein mapping bilateralon 58-44-3628Dcjtsadwqml By: Jonas Baxter, STUDY: [facility] LOWER EXTREMITY VEIN MAPPING BILATERAL; ; 11/29/2024 5:34 pm INDICATION: Signs/Symptoms:pre-op CABG. 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 ACCESSION NUMBER(S): [id number] ORDERING CLINICIAN: IRINEO LAUGHLIN TECHNIQUE: Sonographic lower [...] x 0.11; distal 0.17 x 0.26 [facility] MMODALSchJonas gutiérrez MD - 11/30/2024 Interpreted By: Jonas Baxter, STUDY: [facility] LOWER EXTREMITY VEIN MAPPING BILATERAL; ; 11/29/2024 5:34 pm INDICATION: Signs/Symptoms:pre-op CABG. 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 ACCESSION NUMBER(S): [id number] ORDERING CLINICIAN: IRINEO LAUGHLIN TECHNIQUE: Sonographic lower [...] Jonas Baxter 11/30/2024 8:39 AM Dictation workstation: [id number] [facility] Work Phone: UnOhio [facility] Surgical Hospital Work Phone: Magnesiumon 65-53-8116Kewqdxlyj [Mass/Vol]1.98 mg/dL 1.60 - 2.40 mg/dLUnOhio Valley Surgical HospitalMagnesium [Mass/Vol]1.98 mg/dL Normal1.60-2.40Mercer County Community HospitalComment on above: Performed By: #### 99574-4 #### SISSY HOGAN ([id number]) [facility] ([facility]) [address] [place] [address] 14124Lbswvjfmp [Mass/Vol]on 55-03-5253Yiktmevgtomxme and review of laboratory resultsNormalUniversIndiana University Health Bloomington HospitalUnOhio Valley Surgical HospitalNo Panel InformationOrdered By: Doron Louis on 11-30-2024 [facility] HospitalPT and aPTT panel Coag (PPP)Ordered By: Doron Louis on 01-66-2206bYMJ Coag (PPP) [Time]129 sCritically high [facility] HospitalINR Coag (PPP) [Relative time]1 {INR}0.9 - 1.1 [facility] HospitalInterpretation and review of laboratory results AbnormalUnOhio Valley Surgical HospitalPT Coag (PPP) [Time]11.3 [facility] SystemThe APTT is no longer used for monitoring Unfractionated Heparin Therapy. For monitoring Heparin Therapy, use the Heparin Assay. [facility] HospitalPT and aPTT panel Coag (PPP)on 13-68-0222gLQE Coag (PPP) [Time]129 sCritically lthq50-07UaasrlgumeChillicothe HospitalComment on above:Order Comment: The APTT is no longer used for monitoring Unfractionated Heparin Therapy. For monitoring Heparin Therapy, use the Heparin Assay.Performed By: #### 80280-4 #### SISSY HOGAN ([id number]) [facility] ([facility]) [address] [place] [address] 07086YZN Coag (PPP) [Relative time]1.6Xoeyjf7.9-1.1UnChillicothe HospitalComment on above:Order Comment: The APTT is no longer used for monitoring Unfractionated Heparin Therapy. For monitoring Heparin Therapy, use the Heparin Assay.Performed By: #### 67375-6 #### SISSY HOGAN ([id number]) [facility] ([facility]) [address] [place] [address] 37481WL Coag (PPP) [Time]11.3 sNormal9.8-12.4UnChillicothe HospitalComment on above:Order Comment: The APTT is no longer used for monitoring Unfractionated Heparin Therapy. For monitoring Heparin Therapy, use the Heparin Assay.Performed By: #### 03101-7 #### SISSY HOGAN ([id number]) [facility] ([facility]) [address] [place] [address] 63060JZI TOPon 01-34-1169Oscaf TubeHold for add-ons.[facility] HospitalCompontiac general hospital on above:Auto resulted.[facility] HospitalExtra TubeHold for add-ons.[facility] on above:Auto resulted.[facility] WITH REFLEX TO FREE T4 IF ABNORMALon 89-35-9124JRC Qn1.43 m[IU]/LNormal0.44-3.98UnChillicothe HospitalComment on above:Order Comment: TSH testing is performed using different testing methodology at [facility] than at other [facility]. Direct result comparisons should only be made within the same method.Performed By: #### THYDS #### SISSY HOGAN ([id number]) [facility] ([facility]) [address] [place] [address] 18996DKC with reflex to Free T4 if abnormalon 04-30-2025 Interpretation and review of laboratory resultsNormalUniversity Hospitals of ClevelandTSH Qn1.43 m[IU]/[facility] testing is performed using different testing methodology at [facility] than at other [facility]. Direct result comparisons should only be made within the same method. [facility]hesda North HospitalTrinin I.cardiac panel High sensitivity methodon 93-85-4075Nwtkibejgtnlxy and review of laboratory resultsAbMarietta Osteopathic ClinicLess than 99th percentile of normal range cutoff- [...] performed using a different testing methodology at [facility] than at other [facility]. Direct result comparisons should only be made within the same method.[facility] North HospitalTroponin I, High Sensitivityon 73-81-0180Ujhayuvm I.cardiac panel High sensitivity mcbykr55 ng/LCritically high0 - 13 ng/L [facility].cardiac panelon 53-53-9395Dvhhwsaw I.cardiac panel High sensitivity fccwol85 ng/LCritically high0-13Mercer County Community HospitalComment on above:Order Comment: The therapeutic reference range for UFH may be either 0.3-0.6 IU/mL or 0.3-0.7 IU/mLbased on the clinical setting for anticoagulant therapy and the associated nomogram used. For Heparin dosing guidelines based on clinical scenario and Heparin Assay results, please refer to local Pharmacy and the [facility] Guidelines for Anticoagulation Therapy available on the [facility] intranet at: https://community.[facility] hospitalspsentara [facility].org/Pharmacy/Pages/[place]_[facility]_[place] es_for_Anticoagu.aspxPerformed By: #### 3274-8 #### VIKASHLIZZY HOGAN ([id number]) [facility] (C) [address] [place] [address] 60585YL.doppler Carotid arteries - bilateralon 74-58-6114Vulbbogj for calcific plaque bilaterally of both proximal internal carotid arteries. However no peak systolic velocity elevation to suggest significant stenosis. Less than 50% luminal narrowing. The velocity criteria are extrapolated from diameter data as defined by the Society of Radiologists in Ultrasound Consensus Conference Radiology 2003; 229;340-346. MACRO: None Signed by: Jonas Baxter 11/30/2024 8:23 AM Dictation workstation: [id number] MMODALInterpreted By: Jonas Baxter, STUDY: VASC US CAROTID ARTERY DUPLEX BILATERAL; 11/29/2024 5:34 pm INDICATION: Signs/Symptoms:pre-op cardiac surgery. ,Z01.810 Encounter for preprocedural cardiovascular examination,Z09 Encounter for follow-up examination after completed treatment for conditions other than malignant neoplasm COMPARISON: None. ACCESSION NUMBER(S): [id number] ORDERING CLINICIAN: IRINEO LAUGHLIN TECHNIQUE: Vascular ultrasound [...] 1.9. LEFT VERTEBRAL ARTERY: Antegrade flow [facility] MMODALSchJonas gutiérrez MD - 11/30/2024 Interpreted By: Jonas Baxter, STUDY: [facility] US CAROTID ARTERY DUPLEX BILATERAL; 11/29/2024 5:34 pm INDICATION: Signs/Symptoms:pre-op cardiac surgery. ,Z01.810 Encounter for preprocedural cardiovascular examination,Z09 Encounter for follow-up examination after completed treatment for conditions other than malignant neoplasm COMPARISON: None. ACCESSION NUMBER(S): [id number] ORDERING CLINICIAN: IRINEO LAUGHLIN TECHNIQUE: Vascular ultrasound [...] Jonas Baxter 11/30/2024 8:23 AM Dictation workstation: [id number] [facility] Work Phone: US.doppler Carotid arteries - bilateralOrdered By: Jonas Baxter on 27-87-4305UchwnsncfoOhio Valley Surgical Hospital Work Phone: Urine Slater Tubeon 64-44-2580Fhlej TubeHold for add-ons.[facility] HospitalComment on above:Auto resulted. [facility] Memorial HospitalAnti-Xa UF Heparinon 93-28-9573Mtze-Xa UF Heparin0.38 [IU]/mLNormal0.30-0.70The [facility] Physician GroupComment on above: Order Comment: 0530 DRAWResult Comment: Use the aPTT protocol when triglycerides are > 800 mg/dL, total bilirubin is > 20 mg/dL and/or patient has received a DOAC, Fondaparinux or LMWH within 72 hours AND baseline anti-Xa level is > 0.7 units/mL PERFORMED BY: [place] [address] PATHOLOGIST HRIS COORDINATOR JAIDEN MONAHNA M.D.Performed By: #### CMP, MG, CBC #### [place] [address] USABasic Metabolic Panelon 61-88-1804Cslssuzlam Clr Calc Dbmcxzaw85.54NormalThe [facility] Physician [facility] CenterComment on above:Order Comment: 529 DRAWResult Comment: PERFORMED BY: [place] [address] PATHOLOGIST HRIS COORDINATOR JAIDEN MONAHAN M.D.Performed By: #### CK, HS TROP #### [place] [id number] USAGFR/1.73 sq M.predicted MDRD (S/P/Bld) [Vol rate/Area] mL/min/{1.73_m2}NormalThe [facility] Physician GroupComment on above:Order Comment: 529 DRAWPerformed By: #### CK, HS TROP #### [place] [id number] USABasophils Auto (Bld) [#/Vol]Ordered By: Nolan Ballesteros on 03-89-1308Kcwhrrula (Bld) [#/Vol]Automated basophil count0.0-0.2 [facility] CampusBasophils [#/volume] in Blood by Automated countOrdered By: Nolan Ballesteros on 94-01-7653Qlibymmgx (Bld) [#/Vol]0.0 10*3/uLNormal0.0-0.2FMercy Health St. Elizabeth Youngstown HospitalComment on above:Order Comment: 0530 DRAWResult Comment: PERFORMED BY: [place] [address] PATHOLOGIST HRIS COORDINATOR JAIDEN MONAHAN M.D.Performed By: #### CK, HS TROP #### [facility] [address] [place], [place] [id number] USABasophils/100 WBC Auto (Bld)Ordered By: Nolan Ballesteros on 45-64-6850Rmvsdusqn/100 WBC (Bld)Automated basophil %.[facility] CampusBasophils/100 leukocytes in Blood by Automated count Ordered By: Nolan Ballesteros on 13-93-2815Klwyissoj/100 WBC (Bld)0.6 %Normal .[facility] CampusComment on above:Order Comment: 0530 DRAW Performed By: #### CK, HS TROP #### [facility] [address] [place], [place] [phone] USACT CHEST WO IV CONTRASTon 06-64-3595MZ CHEST WO IV CONTRASTInterpreted By: Jonas Baxter, STUDY: CT CHEST WO IV CONTRAST; 11/29/2024 5:38 pm INDICATION: Signs/Symptoms:pre-op cardiac surgery; assess ascending for size and atherosclerosis. COMPARISON: None. ACCESSION NUMBER(S): [id number] ORDERING CLINICIAN: IRINEO LAUGHLIN TECHNIQUE: Helical data [...] consider CT chest at 18-24 months. (Alvarado Sommershoofelia et al., Guidelines for management of incidental pulmonary nodules detected on CT images: From the Fleischner Society 2017, Radiology. 2017 Efren;284 (1):228-243.) KIMMYNER.ACR.IF.2 Signed by: Jonas Baxter 11/30/2024 8:56 AM Dictation workstation: [id number] Health Bryan HospitalCT Chest WO contraston 13-35-6506Hjrdyoeva Study observation (narrative) [facility] Work Phone: Calcium [Mass/volume] in Serum or PlasmaOrdered By: Nolan Ballesteros on 79-52-4258Zbuudqc [Mass/Vol]Calcium [Mass/volume] in Serum or Plasma8.6-10.3FMercy Health St. Elizabeth Youngstown HospitalCalcium [Mass/Vol]9.1 mg/dLNormal8.6-10.3FMercy Health St. Elizabeth Youngstown HospitalComment on above:Order Comment: 529 DRAWPerformed By: #### CK, HS TROP #### [facility] [address] [place] [address] USACarbon dioxide, total [Moles/volume] in Serum or Plasma Ordered By: Nolan Ballesteros on 88-30-9891MX7 [Moles/Vol]Carbon dioxide, total [Moles/volume] in Serum or Lhltun92.0-31.0[facility] CampusCO2 [Moles/Vol]27.2 mmol/FVkklte94.0-31.0[facility] Comment on above:Order Comment: 529 DRAWPerformed By: #### CK, HS TROP #### [facility] [address] [place] [id number] USAChloride [Moles/volume] in Serum or PlasmaOrdered By: Nolan Ballesteros on 89-69-4121Kkjwoxak [Moles/Vol]Chloride [Moles/volume] in Serum or Hpqrdu37-857KviygubagSumma Health Akron CampusChloride [Moles/Vol]105 mmol/UOupkjj55-302OrgflsylkSumma Health Akron CampusComment on above:Order Comment: 529 DRAWPerformed By: #### CK, HS TROP #### [facility] [address] [place] [id number] USAComplete Blood Count Auto Diffon 91-09-4184Ercc Corpuscular HGB Conc34.2 g/rXIknunu14.0-35.0The [facility] Physician GroupComment on above:Order Comment: 529 DRAWPerformed By: #### CK, HS TROP #### [facility] [address] [place] [id number] USANRBC%0.2 /100{WBC}Normal0-0.5The [facility] Comment on above:Order Comment: 529 DRAWPerformed By: #### CK, HS TROP #### [facility] [address] [place] [address] USACreatinine [Mass/volume] in Serum or PlasmaOrdered By: Nolan Ballesteros on 71-02-0430Ptotpfuzvp [Mass/Vol]Creatinine [Mass/volume] in Serum or Plasma0.60-1.20[facility] CampusCreatinine [Mass/Vol]0.87 mg/dLNormal0.60-1.20[facility] CampusComment on above:Order Comment: 529 DRAWPerformed By: #### CK, HS TROP #### [facility] [address] [place] [address] USAECG 12 lead ECGon 53-91-3733OWO 12 lead [facility]GFISH[facility] Main [place] [address] [place], [place] [phone] Electrocardiograph Report Signed Patient: Atiya Jha MR#: [id number] : 1940 Acct:[id number] Age/Sex: 84 / F ADM Date: 11/25/24 Loc: Room: [address] [place] [address] Type: DIS IN Attending Dr: Nolan Ballesteros [...] change was found Confirmed by Noah Foster ([id number]) on 11/29/2024 12:12:25 PM Referred By: Electronically Signed By: Noah Foster Transcribed By: MUS Signed By Noah Foster MD 11/29/[address] [place] [address] Physician GroupEosinophils Auto (Bld) [#/Vol] Ordered By: Nolan Ballesteros on 16-47-0841Tcturzqabhf (Bld) [#/Vol]Automated eosinophil count0.0-0.45[facility] CampusEosinophils [#/volume] in Blood by Automated countOrdered By: Nolan Ballesteros on 11-29-2024 Eosinophils (Bld) [#/Vol]0.1 10*3/uLNormal0.0-0.45[facility] CampusComment on above:Order Comment: 529 DRAWPerformed By: #### CK, HS TROP #### [facility] [address] [place] [id number] USAEosinophils/100 WBC Auto (Bld)Ordered By: Nolan Ballesteros on 59-65-4200Ffaugwczcrc/100 WBC (Bld)Automated eosinophil %.[facility] CampusEosinophils/100 leukocytes in Blood by Automated count Ordered By: Nolan Ballesteros on 56-37-9019Uezahduunia/100 WBC (Bld)2.3 % Normal.[facility] CampusComment on above:Order Comment: 529 DRAWPerformed By: #### CK, HS TROP #### [facility] [address] [place] [id number] USAErythrocyte distribution width Auto (RBC) [Ratio]Ordered By: Nolan Ballesteros on 44-26-5102Vkdprtgbefw distribution width (RBC) [Ratio]Erythrocyte distribution width [Ratio] by Automated count11.9-15.3 [facility] CampusErythrocyte distribution width [Ratio] by Automated countOrdered By: Nolan Ballesteros on 31-83-4128Evkycnjtbpi distribution width (RBC) [Ratio]14.0 %Kjwtxr02.9-15.3FMercy Health St. Elizabeth Youngstown HospitalComment on above:Order Comment: 529 DRAWPerformed By: #### CK, HS TROP #### [facility] [address] [place] [address] USAErythrocytes [#/volume] in Blood by Automated countOrdered By: Nolan Ballesteros on 57-16-4378WSV (Bld) [#/Vol]3.92 10*6/uLNormal 3.60-5.00[facility] CampusComment on above:Order Comment: 529 DRAWPerformed By: #### CK, HS TROP #### [facility] [address] [place] [id number] USAGlucose [Mass/volume] in Serum or PlasmaOrdered By: Nolan Ballesteros on 22-83-0747Boqrayn [Mass/Vol]Glucose [Mass/volume] in Serum or Pitgit88-258BbousvsyuSumma Health Akron CampusComment on above:ADA recommended reference rangeRandom Glucose Reference Range is dependent on time and content of last meal. Glucose of more than 200 mg/dL in a nonstressed, ambulatory subject supports the diagnosisof Diabetes Mellitus.Glucose [Mass/Vol] 98 mg/wTAecwpl60-619ZmiwigglzSumma Health Akron CampusComment on above:ADA recommended reference rangeRandom Glucose Reference Range is dependent on time and content of last meal. Glucose of more than 200 mg/dL in a nonstressed, ambulatory subject supports the diagnosisof Diabetes Mellitus.Order Comment: 529 DRAWResult Comment: Random Glucose Reference Range is dependent on time and content of last meal. Glucose of more than 200 mg/dL in a nonstressed, ambulatory subject supports the diagnosis of Diabetes Mellitus. ADA recommended reference rangePerformed By: #### CK, HS TROP #### [facility] [address] [place] [address] USAHematocrit Auto (Bld) [Volume fraction]Ordered By: Nolan Ballesteros on 74-50-8457Netrvlmklc (Bld) [Volume fraction]Hematocrit [Volume Fraction] of Blood by Automated count34.0-46.4FMercy Health St. Elizabeth Youngstown HospitalHematocrit [Volume Fraction] of Blood by Automated countOrdered By: Nolan Ballesteros on 54-43-3094Fgxnjwfesc (Bld) [Volume fraction]36.8 %Normal 34.0-46.4FMercy Health St. Elizabeth Youngstown HospitalComment on above:Order Comment: 529 DRAWPerformed By: #### CK, HS TROP #### [facility] [address] [place] [address] USAHemoglobin [Mass/volume] in BloodOrdered By: Nolan Ballesteros on 12-15-9106Snvzmcwhcr (Bld) [Mass/Vol]Hemoglobin [Mass/volume] in Blood11.8-15.4FMercy Health St. Elizabeth Youngstown HospitalHemoglobin (Bld) [Mass/Vol]12.6 g/wDUpfbzm26.8-15.4FMercy Health St. Elizabeth Youngstown HospitalComment on above:Order Comment: 0530 DRAWPerformed By: #### CK, HS TROP #### [facility] [address] [place] [address] USAHeparin Assayon 57-95-7899Keczoep unfractionated Chromogenic method Qn (PPP)0.7[facility] HospitalHeparin unfractionated Chromogenic method Qn (PPP)0.5[facility] Heparin anti-Xa unfractionatedOrdered By: Nolan Ballesteros on 11-29-2024 Heparin unfractionated Chromogenic method Qn (PPP)Heparin anti-Xa unfractionated 0.30-0.70[facility] CampusComment on above:Use the aPTT protocol when triglycerides are > 800 mg/dL,total bilirubin is > 20 mg/dL and/orpatient has received aDOAC, Fondaparinux or LMWH within 72 hours AND baselineanti-Xa level is > 0.7 units/mLHeparin unfractionated Chromogenic method Qn (PPP)0.38 [IU]/mL0.30-0.70[facility] CampusComment on above:Use the aPTT protocol when triglycerides are > 800 mg/dL,total bilirubin is > 20 mg/dL and/or patient has received aDOAC, Fondaparinux or LMWH within 72 hours AND baselineanti-Xa level is > 0.7 units/mLHeparin unfractionated Chromogenic method Qn (PPP)on 79-69-7882Mqzkrbzsidsiow and review of laboratory resultsNoCincinnati Children's Hospital Medical CenterThe therapeutic reference range for UFH may be either 0.3-0.6 IU/mL or 0.3-0.7 IU/mL based on the clinical setting for anticoagulant therapy and the associated nomogram used. For Heparin dosing guidelines based on clinical scenario and Heparin Assay results, please refer to local Pharmacy and the [facility] Guidelines for Anticoagulation Therapy available on the [facility] intranet at: https:/ /[email or web address]/Pharmacy/Pages/[place]_[facility]_Guidelines_for_ Anticoagu.aspxBethesda North Hospital Interpretation and review of laboratory resultsNormKindred HealthcareThe therapeutic reference range for UFH may be either 0.3-0.6 IU/mL or 0.3-0.7 IU/mL based on the clinical setting for anticoagulant therapy and the associated nomogram used. For Heparin dosing guidelines based on clinical scenario and Heparin Assay results, please refer to local Pharmacy and the [facility] Guidelines for Anticoagulation Therapy available on the [facility] intranet at: https:/ /[email or web address]/Pharmacy/Pages/[place]_[facility]_Guidelines_for_ Anticoagu.aspxBethesda North Hospital Heparin.unfractionatedon 77-47-3259Gvvpmog unfractionated Chromogenic method Qn (PPP)0.7 IU/mLNormalSee Comment Below for Therapeutic RangesMercer County Community HospitalComment on above:Order Comment: The therapeutic reference range for UFH may be either 0.3-0.6 IU/mL or 0.3-0.7 IU/mLbased on the clinical setting for anticoagulant therapy and the associated nomogram used. For Heparin dosing guidelines based on clinical scenario and Heparin Assay results, please refer to local Pharmacy and the [facility] Guidelines for Anticoagulation Therapy available on the [facility] intranet at: https://[email or web address]/Pharmacy/Pages/[place]_[facility]_Guidelin es_for_Anticoagu.aspxPerformed By: #### 3274-8 #### SISSY HOGAN ([id number]) [facility] (C) [address] [place] [address] 23333Bfigybr unfractionated Chromogenic method Qn (PPP)0.5 IU/mL NormalSee Comment Below for Therapeutic RangesMercer County Community HospitalComment on above:Order Comment: The therapeutic reference range for UFH may be either 0.3-0.6 IU/mL or 0.3-0.7 IU/mLbased on the clinical setting for anticoagulant therapy and the associated nomogram used. For Heparin dosing guidelines based on clinical scenario and Heparin Assay results, please refer to local Pharmacy and the [facility] Guidelines for Anticoagulation Therapy available on the [facility] intranet at: https://[email or web address].[email or web address]/Pharmacy/Pages/[place]_[facility]_Guidelin es_for_Anticoagu.aspxPerformed By: #### 3274-8 #### SISSY HOGAN ([id number]) [facility] ([facility]) [address] [place] [address] 20796Bpojbhrmyk [#/volume] corrected for nucleated erythrocytes in Blood by Automated counOrdered By: Nolan Ballesteros on 80-28-2749ODE corrected for nucl RBC Auto (Bld) [#/Vol]Leukocytes [#/volume] corrected for nucleated erythrocytes in Blood by Automated coun3.8-11.6FMercy Health St. Elizabeth Youngstown HospitalWBC corrected for nucl RBC Auto (Bld) [#/Vol]6.2 10*3/uL3.8-11.6 [facility] CampusLeukocytes [#/volume] in Blood by Automated countOrdered By: Nolan Ballesteros on 71-76-6468BBO (Bld) [#/Vol]6.2 10*3/uL Normal3.8-11.6FMercy Health St. Elizabeth Youngstown HospitalComment on above:Order Comment: 0530 DRAWPerformed By: #### CK, HS TROP #### [facility] [address] [place] [address] USALower extremity vein mapping bilateralon 11-29-2024 Radiology Study observation (narrative)[facility] Work Phone: Lymphocytes Auto (Bld) [#/Vol]Ordered By: Nolan Ballesteros on 38-93-6503Dgvzzqwkvfj (Bld) [#/Vol]Lymphocytes [#/volume] in Blood by Automated count1.00-4.8[facility] CampusLymphocytes [#/volume] in Blood by Automated countOrdered By: Nolan Ballesteros on 36-95-9509Dxdwcayyfie (Bld) [#/Vol]1.9 10*3/uLNormal1.00-4.8[facility] CampusComment on above:Order Comment: 0530 DRAWPerformed By: #### CK, HS TROP #### [facility] [address] [place] [id number] USALymphocytes/100 WBC Auto (Bld)Ordered By: Nolan Ballesteros on 82-16-6361Nvrzgsprkcc/100 WBC (Bld)Lymphocytes/100 leukocytes in Blood by Automated count.[facility] CampusLymphocytes/100 leukocytes in Blood by Automated countOrdered By: Nolan Ballesteros on 70-11-8706Plcsjzznbou/100 WBC (Bld)30.9 %Normal.[facility] CampusComment on above:Order Comment: 529 DRAWPerformed By: #### CK, HS TROP #### [facility] [address] [place] [id number] [facility] Auto (RBC) [Entitic mass]Ordered By: Nolan Ballesteros on 41-96-6776LOG (RBC) [Entitic mass]MCH [Entitic mass] by Automated count24.7-34.3FLancaster [facility] [Entitic mass] by Automated countOrdered By: Nolan Ballesteros on 83-22-4292RCO (RBC) [Entitic mass]32.1 opBjjnmu59.7-34.3FMercy Health St. Elizabeth Youngstown HospitalComment on above:Order Comment: 0530 DRAWPerformed By: #### CK, HS TROP #### [facility] [address] [place] [id number] [facility] Auto (RBC) [Mass/Vol]Ordered By: Nolan Ballesteros on 27-21-1683KAHA (RBC) [Mass/Vol]MCHC [Mass/volume] by Automated count 32.0-35.0[facility] (RBC) [Mass/Vol]34.2 g/dL 32.0-35.0[facility] HospitalV Auto (RBC) [Entitic vol]Ordered By: Nolan Ballesteros on 40-11-5129DXK (RBC) [Entitic vol]MCV [Entitic volume] by Automated -652DtlovrjyrSumma Health Akron CampusMCV [Entitic volume] by Automated countOrdered By: Nolan Ballesteros on 36-17-7782RGA (RBC) [Entitic vol]93.9 hIKzmvxv86-469HntobkuiqSumma Health Akron CampusComment on above:Order Comment: 529 DRAWPerformed By: #### CK, HS TROP #### [facility] [address] [place] [phone] USAMonocytes Auto (Bld) [#/Vol]Ordered By: Nolan Ballesteros on 80-82-3163Icryyjmlq (Bld) [#/Vol]Automated blood monocyte count 0.0-0.8[facility] CampusMonocytes [#/volume] in Blood by Automated countOrdered By: Nolan Ballesteros on 56-38-3773Wvovnvfxo (Bld) [#/Vol]0.6 10*3/uLNormal0.0-0.8[facility] CampusComment on above:Order Comment: 529 DRAWPerformed By: #### CK, HS TROP #### [facility] [address] [place] [phone] USAMonocytes/100 WBC Auto (Bld)Ordered By: Nolan Ballesteros on 46-14-2838Kyuxpgsrn/100 WBC (Bld)Automated monocyte %.[facility] CampusMonocytes/100 leukocytes in Blood by Automated count Ordered By: Nolan Ballesteros on 90-72-5985Hqjewmddh/100 WBC (Bld)10.3 % Normal.[facility] CampusComment on above:Order Comment: 529 DRAWPerformed By: #### CK, HS TROP #### [facility] [address] [place] [id number] USANeutrophils Auto (Bld) [#/Vol]Ordered By: Nolan Ballesteros on 63-98-9378Bvxnxetqtzu (Bld) [#/Vol]Neutrophils [#/volume] in Blood by Automated count1.8-7.7FMercy Health St. Elizabeth Youngstown HospitalNeutrophils [#/volume] in Blood by Automated countOrdered By: Nolan Ballesteros on 11-29-2024 Neutrophils (Bld) [#/Vol]3.5 10*3/uLNormal1.8-7.7FMercy Health St. Elizabeth Youngstown HospitalComment on above:Order Comment: 0530 DRAWPerformed By: #### CK, HS TROP #### [facility] [address] [place] [address] USANeutrophils/100 WBC Auto (Bld)Ordered By: Nolan Ballesteros on 37-11-1645Xckxfwpmuuq/100 WBC (Bld)Automated neutrophil %.[facility] CampusNeutrophils/100 leukocytes in Blood by Automated count Ordered By: Nolan Ballesteros on 29-15-8083Yflworugmnf/100 WBC (Bld)55.9 % Normal.[facility] CampusComment on above:Order Comment: 0530 DRAWPerformed By: #### CK, HS TROP #### [facility] [address] [place] [id number] USANo Panel Informationon 14-29-0842Sqbvbhzvhnafup and review of laboratory resultsAbZanesville City HospitalNo Panel InformationOrdered By: Nolan Ballesteros on 46-84-0803Emthsuqqk GFR (CKD-EPI)> 60.0 mL/MinSumma Health Akron Campus Pharmacy Creatinine Clearance (Chem42.54[facility] Nucleated erythrocytes [Presence] in Blood by Automated countOrdered By: Nolan Ballesteros on 31-18-7441Deebzfklm RBC Auto Ql (Bld)Nucleated erythrocytes [Presence] in Blood by Automated count0-0.5FMercy Health St. Elizabeth Youngstown HospitalNucleated RBC Auto Ql (Bld)0.2 /100{WBC}0-0.5FMercy Health St. Elizabeth Youngstown HospitalPlatelet mean volume Auto (Bld) [Entitic vol]Ordered By: Nolan Ballesteros on 93-83-0045Zlhuhwjo mean volume (Bld) [Entitic vol] Platelet mean volume [Entitic volume] in Blood by Automated count6.3-10.7 [facility] CampusPlatelet mean volume [Entitic volume] in Blood by Automated countOrdered By: Nolan Ballesteros on 94-05-1930Ayvkfuuh mean volume (Bld) [Entitic vol]7.6 fLNormal6.3-10.7FMercy Health St. [facility] Hospital Comment on above:Order Comment: 529 DRAWPerformed By: #### CK, HS TROP #### [facility] [address] [place] [address] USAPlatelets Auto (Bld) [#/Vol]Ordered By: Nolan Ballesteros on 68-67-3641Tuiehhupw (Bld) [#/Vol]Platelets [#/volume] in Blood by Automated kzaho817-171EzdybntrvSumma Health Akron CampusPlatelets [#/volume] in Blood by Automated countOrdered By: Nolan Ballesteros on 11-33-2012Ogfbsfdtm (Bld) [#/Vol]174 10*3/hOHqetvd871-226TtcemqgyuSumma Health Akron CampusComment on above:Order Comment: 529 DRAWPerformed By: #### CK, HS TROP #### [facility] [address] [place] [id number] USAPotassium [Moles/volume] in Serum or PlasmaOrdered By: Nolan Ballesteros on 12-91-9257Caemnoext [Moles/Vol]Potassium [Moles/volume] in Serum or Plasma3.5-5.1FMercy Health St. Elizabeth Youngstown HospitalPotassium [Moles/Vol] 4.2 mmol/LNormal3.5-5.1FMercy Health St. Elizabeth Youngstown HospitalComment on above:Order Comment: 529 DRAWPerformed By: #### CK, HS TROP #### [facility] [address] [place] [phone] USARBC Auto (Bld) [#/Vol]Ordered By: Nolan Ballesteros on 51-94-3388WIS (Bld) [#/Vol]Erythrocytes [#/volume] in Blood by Automated count 3.60-5.00OhioHealth Berger Hospitalerum or plasma anion gap determinationOrdered By: Nolan Ballesteros on 13-77-8500Jgyfx gap [Moles/Vol] Serum or plasma anion gap determination6.0-15.0[facility] Anion gap [Moles/Vol]11.0 mmol/LNormal6.0-15.0[facility] Comment on above:Order Comment: 529 DRAWPerformed By: #### CK, HS TROP #### [facility] [address] [place] [address] USASodium [Moles/volume] in Serum or PlasmaOrdered By: Nolan Ballesteros on 87-22-9313Ewhvwl [Moles/Vol]Sodium [Moles/volume] in Serum or Qmusmy968-313FesautocxOhioHealth Berger Hospitalodium [Moles/Vol]139 mmol/ZBzjbwr653-064ZyabejuveSumma Health Akron CampusComment on above:Order Comment: 529 DRAWPerformed By: #### CK, HS TROP #### [facility] [address] [place] [address] USAUS.doppler Carotid arteries - bilateralon 11-29-2024 Radiology Study observation (narrative)[facility] Work Phone: Urea nitrogen [Mass/volume] in Serum or PlasmaOrdered By: Nolan Ballesteros on 83-21-2200Eglq nitrogen [Mass/Vol]Urea nitrogen [Mass/volume] in Serum or Plasma7Sum[facility] Health Ak[facility] CampusUrea nitrogen [Mass/Vol]14 mg/dLNormal02-24Sum[facility] CampusComment on above:Order Comment: 529 DRAWPerformed By: #### CK, HS TROP #### [facility] [address] [place] [address] USAUrinalysis complete panel (U)on 21-40-0629Iyrxkstsyo (U) ClearClearUnOhio Valley Surgical HospitalBilirubin (U) [Mass/Vol]Negative NEGATIVE mg/dLUnOhio Valley Surgical HospitalColor (U)YellowLight-Yellow, Yellow, Dark-YellowUnOhio Valley Surgical HospitalGlucose Auto test strip (U) [Mass/Vol]NormalNormal mg/dLUnOhio Valley Surgical HospitalKetones (U) [Mass/Vol]NegativeNEGATIVE mg/dLUnOhio Valley Surgical HospitalLeukocyte esterase Auto test strip Ql (U)500 Michelle/uLAbnormalNEGATIVEUnOhio Valley Surgical HospitalNitrite Auto test strip Ql (U)NegativeNEGATIVEUnOhio Valley Surgical HospitalpH (U)5.5 [pH]5.0, 5.5, 6.0, 6.5, 7.0, 7.5, 8.0UnOhio Valley Surgical HospitalProtein (U) [Mass/Vol]NegativeNEGATIVE, 10 (TRACE), 20 (TRACE) mg/dL [facility] HospitalRBC (U) [#/Vol]0.1 (1+)AbnormalNEGATIVE mg/dL [facility] HospitalSpecific gravity (U) [Rel density]1.0211.005 - 1.035UnOhio Valley Surgical HospitalUrobilinogen (U) [Mass/Vol]NormalNormal mg/dLUnOhio Valley Surgical HospitalAppearance (U)ClearNormalClearUnChillicothe HospitalComment on above:Performed By: #### 32864-6 #### SISSY HOGAN ([id number]) [facility] ([facility]) [address] [place] [address] 60246Ndwcdfite (U) [Mass/Vol]NegativeNormalNEGATIVEUnChillicothe HospitalComment on above:Performed By: #### 95905-0 #### SISSY HOGAN ([id number]) [facility] ([facility]) [address] [place] [address] 28209Fwhpz (U)YellowNormalLight-Yellow, Yellow, Dark-YellowUnChillicothe HospitalComment on above:Performed By: #### 01199-8 #### SISSY HOGAN ([id number]) [facility] ([facility]) [address] [place] [address] 85235Azrcelw Auto test strip (U) [Mass/Vol]NormalNormalNormal [facility] HospitalComment on above:Performed By: #### 91563-6 #### SISSY HOGAN ([id number]) [facility] ([facility]) [address] [place] [address] 51979Ijhyelb (U) [Mass/Vol]NegativeNormalNEGATIVEUnChillicothe HospitalComment on above:Performed By: #### 60736-6 #### SISSY HOGAN ([id number]) [facility] ([facility]) [address] [place] [address] 48594Jwappzfsx esterase Auto test strip Ql (U)500 Michelle/uLAbnormal NEGATIVEUnChillicothe HospitalComment on above:Performed By: #### 30017-5 #### SISSY HOGAN ([id number]) [facility] ([facility]) [address] [place] [address] 52838Yopwfqc Auto test strip Ql (U)NegativeNormalNEGATIVEUnChillicothe HospitalComment on above:Performed By: #### 74466-1 #### SISSY HOGAN ([id number]) [facility] ([facility]) [address] [place] [address] 23827gM (U)5.5 [pH]Normal5.0, 5.5, 6.0, 6.5, 7.0, 7.5, 8.0Mer[facility] Community HospitalComment on above:Performed By: #### 07907-7 #### SISSY HOGAN ([id number]) [facility] ([facility]) [address] [place] [address] 28460Cvuuxys (U) [Mass/Vol]NegativeNormalNEGATIVE, 10 (TRACE), 20 (TRACE)[facility] HospitalComment on above:Performed By: #### 56745-4 #### SISSY HOGAN ([id number]) [facility] ([facility]) [address] [place] [address] 83553NFX (U) [#/Vol]0.1 (1+)AbnormalNEGATIVEUnChillicothe HospitalComment on above:Performed By: #### 02385-5 #### SISSY HOGAN ([id number]) [facility] ([facility]) [address] [place] [address] 68693Txvgidrd gravity (U) [Rel density]1.467Eyeccx9.005-1.035 [facility] HospitalComment on above:Performed By: #### 93784-0 #### SISSY HOGAN ([id number]) [facility] ([facility]) [address] [place] [address] 78496Hrccswfpixor (U) [Mass/Vol]NormalNormalNormalUniCleveland Clinic Marymount HospitalComment on above:Performed By: #### 45408-8 #### SISSY HOGAN ([id number]) [facility] ([facility]) [address] [place] [address] 92555Myeeuvwkhf microscopic panel Auto Ql (U)on 28-16-6591Ffnpbras Auto (Urine sed) [#/Area]1+AbnormalNONE SEEN /Cleveland ClinicEpithelial cells.squamous Auto (Urine sed) [#/Area]1-9 (SPARSE) Reference range not established. /Cleveland ClinicMucus Auto (Urine sed) [#/Area]FEWReference range not established. /FUMcCullough-Hyde Memorial HospitalRB Auto (Urine sed) [#/Area]6-10AbnormalNONE, 1-2, 3-5 /Cleveland ClinicWBC Auto (Urine sed) [#/Area]>31Wngjxory9- 5, NONE /Cleveland ClinicBacteria Auto (Urine sed) [#/Area] 1+ /HPFAbnormalNONE SEENUnChillicothe HospitalComment on above:Performed By: #### 63682-4 #### SISSY HOGAN ([id number]) [facility] ([facility]) [address] [place] [address] 79252Utvbjlrtvd cells.squamous Auto (Urine sed) [#/Area]1-9 (SPARSE) NormalReference range not established.[facility] Comment on above:Performed By: #### 34183-4 #### SISSY PAULA VARGAS EDIN ([id number]) [facility] ([facility]) [address] [place] [address] 94625Rjbco Auto (Urine sed) [#/Area]FEWNormalReference range not established.[facility] HospitalComment on above:Performed By: #### 28674-1 #### KAYIBGABRIEL MITCHELL RIO EDIN ([id number]) [facility] ([facility]) [address] [place] [address] 25049ZYM Auto (Urine sed) [#/Area]6-10AbnormalNONE, 1-2, 3-5 [facility] HospitalComment on above:Performed By: #### 06558-3 #### SISSY PAULA VARGAS EDIN ([id number]) [facility] (EM) [address] [place] [address] 34879SDE Auto (Urine sed) [#/Area]>09Tflqmhmc9-0, NONEUnChillicothe HospitalComment on above:Performed By: #### 10561-0 #### SISSY PAULA JESUS ([id number]) [facility] (EM) [address] [place] [address] 77801PUGX US CAROTID ARTERY DUPLEX BILATERALon 96-21-9933TMAO US CAROTID ARTERY DUPLEX BILATERALInterpreted By: Jonas Baxter, STUDY: [facility] US CAROTID ARTERY DUPLEX BILATERAL; 11/29/2024 5:34 pm INDICATION: Signs/Symptoms:pre-op cardiac surgery. ,Z01.810 Encounter for preprocedural cardiovascular examination,Z09 Encounter for follow-up examination after completed treatment for conditions other than malignant neoplasm COMPARISON: None. ACCESSION NUMBER(S): [id number] ORDERING CLINICIAN: IRINEO LAUGHLIN TECHNIQUE: Vascular ultrasound [...] Jonas Baxter 11/30/2024 8:23 AM Dictation workstation: [id number] Health [facility] US LOWER EXTREMITY VEIN MAPPING BILATERALon 44-51-4598SVXF US LOWER EXTREMITY VEIN MAPPING BILATERALInterpreted By: Jonas Baxter, STUDY: [facility] US LOWER EXTREMITY VEIN MAPPING BILATERAL; ; 11/29/2024 5:34 pm INDICATION: Signs/Symptoms:pre-op CABG. 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 ACCESSION NUMBER(S): [id number] ORDERING CLINICIAN: IRINEO LAUGHLIN TECHNIQUE: Sonographic lower [...] Jonas Baxter 11/30/2024 8:39 AM Dictation workstation: [id number] Health Bryan HospitalWBC Auto (Bld) [#/Vol]Ordered By: Nolan Ballesteros on 74-65-8679HCQ (Bld) [#/Vol]Leukocytes [#/volume] in Blood by Automated count3.8-11.6FMercy Health St. Elizabeth Youngstown HospitalAnti-Xa UF Heparinon 35-64-1812Pahs-Xa UF Heparin0.29 [IU]/mLLow0.30-0.70The [facility] Point Physician GroupComment on above:Result Comment: Use the aPTT protocol when triglycerides are > 800 mg/dL, total bilirubin is > 20 mg/dL and/or patient has received a DOAC, Fondaparinux or LMWH within 72 hours AND baseline anti-Xa level is > 0.7 units/mL PERFORMED BY: [place] [address] PATHOLOGIST HRIS COORDINATOR JAIDEN MONAHAN M.D.Performed By: #### CMP, MG, CBC #### [facility] [address] [place] [address] USAAnti-Xa UF Heparin0.31 [IU]/mLNormal0.30-0.70The [facility] Point Physician GroupComment on above:Result Comment: Use the aPTT protocol when triglycerides are > 800 mg/dL, total bilirubin is > 20 mg/dL and/or patient has received a DOAC, Fondaparinux or LMWH within 72 hours AND baseline anti-Xa level is > 0.7 units/mL PERFORMED BY: [place] [address] PATHOLOGIST HRIS COORDINATOR JAIDEN MONAHAN M.D.Performed By: #### CK, HS TROP #### [place] [address] USABasic Metabolic Panelon 97-41-8699Ybacq gap [Moles/Vol] 10.9 mmol/LNormal6.0-15.0The [facility] Physician GroupComment on above:Performed By: #### CMP, MG, CBC #### [place] [address] USACalcium [Mass/Vol]9.1 mg/dLNormal8.6-10.3The [facility] Physician GroupComment on above:Performed By: #### CMP, MG, CBC #### [place] [address] USAChloride [Moles/Vol]106 mmol/LVvlbjc94-290Vnn [facility] Physician GroupComment on above:Performed By: #### CMP, MG, CBC #### [place] [address] USACO2 [Moles/Vol]25.7 mmol/OGlnnzb81.0-31.0The [facility] Physician GroupComment on above:Performed By: #### CMP, MG, CBC #### [place] [address] USACreatinine [Mass/Vol]0.69 mg/dLNormal0.60-1.20The [facility] Physician GroupComment on above:Performed By: #### CMP, MG, CBC #### [place] [address] USACreatinine Clr Calc Bylvogzm58.26NormalThe [facility] Physician GroupComment on above:Result Comment: PERFORMED BY: [place] [address] PATHOLOGIST HRIS COORDINATOR JAIDEN MONAHAN M.D.Performed By: #### CMP, MG, CBC #### [place] [address] USAGFR/1.73 sq M.predicted MDRD (S/P/Bld) [Vol rate/Area] mL/min/{1.73_m2}NormalThe [facility] Physician GroupComment on above:Performed By: #### CMP, MG, CBC #### [place] [address] USAGlucose [Mass/Vol]99 mg/nXAvgyqm44-512Jqv [facility] Physician GroupComment on above:Result Comment: Random Glucose Reference Range is dependent on time and content of last meal. Glucose of more than 200 mg/dL in a nonstressed, ambulatory subject supports the diagnosis of Diabetes Mellitus. ADA recommended reference rangePerformed By: #### CMP, MG, CBC #### [place] [address] USAPotassium [Moles/Vol]3.6 mmol/LNormal3.5-5.1The [facility] Physician GroupComment on above:Performed By: #### CMP, MG, CBC #### [place] [address] USASodium [Moles/Vol]139 mmol/UCmuzra027-092Gma [facility] Physician GroupComment on above:Performed By: #### CMP, MG, CBC #### [place] [address] USAUrea nitrogen [Mass/Vol]17 mg/dLNormal7-25The [facility] Physician GroupComment on above:Performed By: #### CMP, MG, CBC #### [place] [address] USAComplete Blood Count Auto Diffon 10-20-9193Tkjmaqlpe (Bld) [#/Vol]0.0 10*3/uLNormal0.0-0.2The [facility]xsutawney Area HospitalComment on above: Result Comment: PERFORMED BY: [place] [address] PATHOLOGIST HRIS COORDINATOR JAIDEN MONAHAN M.D.Performed By: #### CMP, MG, CBC #### [place] [address] USABasophils/100 WBC (Bld)0.6 %Normal.The [facility] Physician GroupComment on above:Performed By: #### CMP, MG, CBC #### [place] [address] USAEosinophils (Bld) [#/Vol]0.2 10*3/uLNormal0.0-0.45The [facility] Physician GroupComment on above:Performed By: #### CMP, MG, CBC #### [place] [address] USAEosinophils/100 WBC (Bld)2.4 %Normal.The [facility] Physician GroupComment on above:Performed By: #### CMP, MG, CBC #### [place] [address] USAErythrocyte distribution width (RBC) [Ratio]14.0 %Normal 11.9-15.3The [facility] Physician GroupComment on above:Performed By: #### CMP, MG, CBC #### [place] [address] USAHematocrit (Bld) [Volume fraction]33.5 %Low34.0-46.4The [facility] Physician GroupComment on above:Performed By: #### CMP, MG, CBC #### [place] [address] USAHemoglobin (Bld) [Mass/Vol]11.6 g/dLLow11.8-15.4The [facility] Physician GroupComment on above:Performed By: #### CMP, MG, CBC #### [place] [address] USALymphocytes (Bld) [#/Vol]1.6 10*3/uLNormal1.00-4.8The [facility] Physician GroupComment on above:Performed By: #### CMP, MG, CBC #### [place] [address] USALymphocytes/100 WBC (Bld)26.0 %Normal.The [facility] Physician GroupComment on above:Performed By: #### CMP, MG, CBC #### [address]H (RBC) [Entitic mass]32.5 ytUrfwde66.7-34.3The [facility] Physician GroupComment on above:Performed By: #### CMP, MG, CBC #### [address] [address] StreetV (RBC) [Entitic vol]93.6 jBFoojtp30-933Csi [facility] Physician GroupComment on above:Performed By: #### CMP, MG, CBC #### [place] [address] USAMean Corpuscular HGB Conc34.8 g/yGNrukzu89.0-35.0The [facility] Physician GroupComment on above:Performed By: #### CMP, MG, CBC #### [place] [address] USAMonocytes (Bld) [#/Vol]0.8 10*3/uLNormal0.0-0.8The [facility] Physician GroupComment on above:Performed By: #### CMP, MG, CBC #### [place] [address] USAMonocytes/100 WBC (Bld)12.4 %Normal.The [facility] Physician GroupComment on above:Performed By: #### CMP, MG, CBC #### [place] [address] USANeutrophils (Bld) [#/Vol]3.6 10*3/uLNormal1.8-7.7The [facility] Physician GroupComment on above:Performed By: #### CMP, MG, CBC #### [place] [address] USANeutrophils/100 WBC (Bld)58.6 %Normal.The [facility] Physician GroupComment on above:Performed By: #### CMP, MG, CBC #### [place] [address] USANRBC%0.1 /100{WBC}Normal0-0.5The [facility] Comment on above:Performed By: #### CMP, MG, CBC #### [facility] [address] [place] [address] USAPlatelet mean volume (Bld) [Entitic vol]7.6 fLNormal 6.3-10.7The [facility] Physician GroupComment on above:Performed By: #### CMP, MG, CBC #### [facility] [address] [place] [address] USAPlatelets (Bld) [#/Vol]155 10*3/mKPcmhyq352-385Mja [facility] Physician GroupComment on above:Performed By: #### CMP, MG, CBC #### [facility] [address] [place] [address] USARBC (Bld) [#/Vol]3.58 10*6/uLLow3.60-5.00The [facility] Physician GroupComment on above:Performed By: #### CMP, MG, CBC #### [facility] [address] [place] [address] USAWBC (Bld) [#/Vol]6.2 10*3/uLNormal3.8-11.6The [facility] Physician GroupComment on above:Performed By: #### CMP, MG, CBC #### [place] [address] USAECG 12 lead ECGon 14-06-2973GCA 12 lead [facility] [address] Electrocardiograph Report Signed Patient: Atiya Jha MR#: [id number] : 1940 Acct:[id number] Age/Sex: 84 / F ADM Date: 11/25/24 Loc: Room: [address] [place] [address] Type: ADM IN Attending Dr: Nolan Ballesteros [...] change was found Confirmed by Noah Foster ([id number]) on 11/28/2024 9:01:48 AM Referred By: Electronically Signed By: Noah Foster Transcribed By: MUS Signed By Noah Foster MD 11/28/24 01[facility] Physician GroupTroponin I High Sensitivityon 05-46-6512Eovipcpb I High Wqmukfggsdc843Tlb scale [facility]015[facility] Physician GroupComment on above:Result Comment: Critical Result : Called to and read back by: AUGUSTA VIEYRA at: 11/28/2024 05:50:28 by:[id number] The Troponin units of report have been changed to meet the Chest Pain Accreditation requirement, element EC5.M1l2. Troponin units are changed from pg/ml to ng/L. Also, the decimal is removed and results are in whole numbers. PERFORMED BY: [place] [address] PATHOLOGIST HRIS COORDINATOR JAIDEN MONAHAN M.D.Performed By: #### CMP, MG, CBC #### [place] [address] USATroponin I.cardiac [Mass/volume] in Serum or Plasma by Detection limit <= 0.01 ng/Ordered By: Nolan Ballesteros on 11-28-2024 Troponin I.cardiac DL <= 0.01 ng/mL [Mass/Vol]Troponin I.cardiac [Mass/volume] in Serum or Plasma by Detection limit <= 0.01 ng/Critically [address] Marshall StreetComment on above:Critical Result : Called to and read back by: AUGUSTA VIEYRA at: 11/28/2024 05:50:28 by:[id number] Troponin units of report have been changed to meet the Chest Pain Accreditation requirement, element EC5.M1l2. Troponin units are changed from pg/ml to ng/L. Also, the decimal is removed and results are in whole numbers.Troponin I.cardiac [Mass/volume] in Serum or Plasma by Detection limit <= 0.01 ng/mLOrdered By: Nolan Ballesteros on 85-34-2060Ierocyvj I.cardiac DL <= 0.01 ng/mL [Mass/Vol] 193 ng/LCritically high0-15[facility] CampusComment on above: Critical Result : Called to and read back by: AUGUSTA VIEYRA at: 11/28/2024 05:50:28 by:[id number] Troponin units of report have been changed to meet the Chest Pain Accreditation requirement, element EC5.M1l2. Troponin units are changed from pg/ml to ng/L. Also, the decimal is removed and results are in whole numbers.Anti-Xa UF Heparinon 84-64-9112Wooa-Xa UF Heparin0.33 [IU]/mLNormal 0.30-0.70The [facility]ney Area HospitalComment on above:Result Comment: Use the aPTT protocol when triglycerides are > 800 mg/dL, total bilirubin is > 20 mg/dL and/or patient has received a DOAC, Fondaparinux or LMWH within 72 hours AND baseline anti-Xa level is > 0.7 units/mL PERFORMED BY: [place] [address] PATHOLOGIST HRIS COORDINATOR JAIDEN MONAHAN M.D.Performed By: #### CMP, MG, CBC #### [facility] [address] [place] [address] USABasic Metabolic Panelon 98-39-1898Xqhvo gap [Moles/Vol] 11.5 mmol/LNormal6.0-15.0The [facility] Area HospitalComment on above:Performed By: #### CMP, MG, CBC #### [facility] [address] [place] [address] USACalcium [Mass/Vol]9.0 mg/dLNormal8.6-10.3The [facility] Area HospitalComment on above:Performed By: #### CMP, MG, CBC #### [facility] [address] [place] [address] USAChloride [Moles/Vol]104 mmol/BMjcfyp30-762Aum [facility] Physician GroupComment on above:Performed By: #### CMP, MG, CBC #### [place] [address] USACO2 [Moles/Vol]26.1 mmol/OAftled81.0-31.0The [facility] Physician GroupComment on above:Performed By: #### CMP, MG, CBC #### [place] [address] USACreatinine [Mass/Vol]0.66 mg/dLNormal0.60-1.20The [facility] Physician GroupComment on above:Performed By: #### CMP, MG, CBC #### [place] [address] USACreatinine Clr Calc Tkfplqgg02.19NormalThe [facility] Physician GroupComment on above:Result Comment: PERFORMED BY: [place] [address] PATHOLOGIST HRIS COORDINATOR JAIDEN MONAHAN M.D.Performed By: #### CMP, MG, CBC #### [place] [address] USAGFR/1.73 sq M.predicted MDRD (S/P/Bld) [Vol rate/Area] mL/min/{1.73_m2}NormalThe [facility] Physician [facility] CenterComment on above:Performed By: #### CMP, MG, CBC #### [place] [address] USAGlucose [Mass/Vol]97 mg/jBQmcjqe51-239Uoe [facility] Physician GroupComment on above:Result Comment: Random Glucose Reference Range is dependent on time and content of last meal. Glucose of more than 200 mg/dL in a nonstressed, ambulatory subject supports the diagnosis of Diabetes Mellitus. ADA recommended reference rangePerformed By: #### CMP, MG, CBC #### [place] [address] USAPotassium [Moles/Vol]3.6 mmol/LNormal3.5-5.1The [facility] Physician GroupComment on above:Performed By: #### CMP, MG, CBC #### [place] [address] USASodium [Moles/Vol]138 mmol/NPxgoau159-156Dlx [facility] Physician GroupComment on above:Performed By: #### CMP, MG, CBC #### [place] [address] USAUrea nitrogen [Mass/Vol]16 mg/dLNormal7-25The [facility] Physician GroupComment on above:Performed By: #### CMP, MG, CBC #### [place] [address] USAComplete Blood Count Auto Diffon 84-12-7876Gahpvxwjm (Bld) [#/Vol]0.0 10*3/uLNormal0.0-0.2The [facility] Physician GroupComment on above: Result Comment: PERFORMED BY: [place] [address] PATHOLOGIST HRIS COORDINATOR JAIDEN MONAHAN M.D.Performed By: #### CMP, MG, CBC #### [place] [address] USABasophils/100 WBC (Bld)0.6 %Normal.The [facility] Physician GroupComment on above:Performed By: #### CMP, MG, CBC #### [place] [address] USAEosinophils (Bld) [#/Vol]0.2 10*3/uLNormal0.0-0.45The [facility] Physician GroupComment on above:Performed By: #### CMP, MG, CBC #### [place] [address] USAEosinophils/100 WBC (Bld)3.3 %Normal.The [facility] Physician GroupComment on above:Performed By: #### CMP, MG, CBC #### [place] [address] USAErythrocyte distribution width (RBC) [Ratio]13.7 %Normal 11.9-15.3The [facility] Physician GroupComment on above:Performed By: #### CMP, MG, CBC #### [place] [address] USAHematocrit (Bld) [Volume fraction]34.2 %Jywlsg00.0-46.4The [facility] Physician GroupComment on above:Performed By: #### CMP, MG, CBC #### [place] [address] USAHemoglobin (Bld) [Mass/Vol]11.9 g/gYKsjbnp74.8-15.4The [facility] Physician GroupComment on above:Performed By: #### CMP, MG, CBC #### [place] [address] USALymphocytes (Bld) [#/Vol]2.0 10*3/uLNormal1.00-4.8The [facility] Physician GroupComment on above:Performed By: #### CMP, MG, CBC #### [place] [address] USALymphocytes/100 WBC (Bld)33.4 %Normal.The [facility] Physician GroupComment on above:Performed By: #### CMP, MG, CBC #### [place] [address] USAMCH (RBC) [Entitic mass]32.3 ozGbtxrs13.7-34.3The [facility] Physician GroupComment on above:Performed By: #### CMP, MG, CBC #### [place] [address] USAMCV (RBC) [Entitic vol]93.0 hQRejgpa53-825Dig [facility] Physician GroupComment on above:Performed By: #### CMP, MG, CBC #### [place] [address] USAMean Corpuscular HGB Conc34.7 g/sIYxjqml39.0-35.0The [facility] Physician GroupComment on above:Performed By: #### CMP, MG, CBC #### [facility] [address] [place] [address] USAMonocytes (Bld) [#/Vol]0.7 10*3/uLNormal0.0-0.8The [facility] Physician GroupComment on above:Performed By: #### CMP, MG, CBC #### [facility] [address] [place] [address] USAMonocytes/100 WBC (Bld)11.4 %Normal.The [facility] Physician GroupComment on above:Performed By: #### CMP, MG, CBC #### [facility] [address] [place] [address] USANeutrophils (Bld) [#/Vol]3.0 10*3/uLNormal1.8-7.7The [facility] Physician GroupComment on above:Performed By: #### CMP, MG, CBC #### [place] [address] USANeutrophils/100 WBC (Bld)51.3 %Normal.The [facility] Physician GroupComment on above:Performed By: #### CMP, MG, CBC #### [facility] [address] [place] [address] USANRBC%0.1 /100{WBC}Normal0-0.5The [facility] Comment on above:Performed By: #### CMP, MG, CBC #### [facility] [address] [place] [address] USAPlatelet mean volume (Bld) [Entitic vol]7.8 fLNormal 6.3-10.7The [facility] Physician GroupComment on above:Performed By: #### CMP, MG, CBC #### [facility] [address] [place] [address] USAPlatelets (Bld) [#/Vol]168 10*3/tAVrmoyt116-161Azv [facility] Physician GroupComment on above:Performed By: #### CMP, MG, CBC #### [facility] [address] [place] [address] USARBC (Bld) [#/Vol]3.68 10*6/uLNormal3.60-5.00The [facility] Physician GroupComment on above:Performed By: #### CMP, MG, CBC #### [place] [id number] USAWBC (Bld) [#/Vol]5.9 10*3/uLNormal3.8-11.6The [facility] Physician GroupComment on above:Performed By: #### CMP, MG, CBC #### [place] [address] USATroponin I High Sensitivityon 33-93-7901Ygjlzucs I High Waxjduhnuje113Plc scale high0-15The [facility] Physician GroupComment on above: Result Comment: Critical Result : Called to and read back by: EDUARD JASSO at: 11/27/2024 06:20:21 by:[email or web address] The Troponin units of report have been changed to meet the Chest Pain Accreditation requirement, element EC5.M1l2. Troponin units are changed from pg/ml to ng/L. Also, the decimal is removed and results are in whole numbers. PERFORMED BY: [place] [address] PATHOLOGIST HRIS COORDINATOR JAIDEN MONAHAN M.D.Performed By: #### CMP, MG, CBC #### [place] [id number] USAAnti-Xa UF Heparinon 39-44-2246Snpf-Xa UF Heparin0.30 [IU]/mLNormal0.30-0.70The [facility] Physician GroupComment on above:Result Comment: Use the aPTT protocol when triglycerides are > 800 mg/dL, total bilirubin is > 20 mg/dL and/or patient has received a DOAC, Fondaparinux or LMWH within 72 hours AND baseline anti-Xa level is > 0.7 units/mL PERFORMED BY: [place] [address] PATHOLOGIST HRIS COORDINATOR JAIDEN MONAHAN M.D.Performed By: #### CMP, MG, CBC #### [place] [address] USAAnti-Xa UF Heparin0.33 [IU]/mLNormal0.30-0.70The [facility] Physician GroupComment on above:Result Comment: Use the aPTT protocol when triglycerides are > 800 mg/dL, total bilirubin is > 20 mg/dL and/or patient has received a DOAC, Fondaparinux or LMWH within 72 hours AND baseline anti-Xa level is > 0.7 units/mL PERFORMED BY: [place] [address] PATHOLOGIST HRIS COORDINATOR JAIDEN MONAHAN M.D.Performed By: #### CMP, MG, CBC #### [place] [address] USABasic Metabolic Panelon 82-78-7964Nlaiu gap [Moles/Vol] 12.9 mmol/LNormal6.0-15.0The [facility] Physician GroupComment on above:Performed By: #### CK, HS TROP #### [place] [address] USACalcium [Mass/Vol]9.2 mg/dLNormal8.6-10.3The [facility] Physician GroupComment on above:Performed By: #### CK, HS TROP #### [place] [address] USAChloride [Moles/Vol]104 mmol/TUwpkjt03-275Vel [facility] Physician GroupComment on above:Performed By: #### CK, HS TROP #### [place] [address] USACO2 [Moles/Vol]25.7 mmol/JIyodii43.0-31.0The [facility] Physician GroupComment on above:Performed By: #### CK, HS TROP #### [place] [address] USACreatinine [Mass/Vol]0.89 mg/dLNormal0.60-1.20The [facility] Physician GroupComment on above:Performed By: #### CK, HS TROP #### [place] [address] USACreatinine Clr Calc Wxhmqvzf59.94NormalThe [facility] Physician GroupComment on above:Result Comment: PERFORMED BY: [place] [address] PATHOLOGIST HRIS COORDINATOR JAIDEN MONAHAN M.D.Performed By: #### CK, HS TROP #### [place] [address] USAGFR/1.73 sq M.predicted MDRD (S/P/Bld) [Vol rate/Area] mL/min/{1.73_m2}NormalThe [facility] Physician GroupComment on above:Performed By: #### CK, HS TROP #### [place] [address] USAGlucose [Mass/Vol]99 mg/aFFpusug26-715Ntl [facility] Physician GroupComment on above:Result Comment: Random Glucose Reference Range is dependent on time and content of last meal. Glucose of more than 200 mg/dL in a nonstressed, ambulatory subject supports the diagnosis of Diabetes Mellitus. ADA recommended reference rangePerformed By: #### CK, HS TROP #### [place] [address] USAPotassium [Moles/Vol]3.6 mmol/LNormal3.5-5.1The [facility] Physician GroupComment on above:Performed By: #### CK, HS TROP #### [place] [address] USASodium [Moles/Vol]139 mmol/SGxeczs056-746Waz [facility] Physician GroupComment on above:Performed By: #### CK, HS TROP #### [place] [address] USAUrea nitrogen [Mass/Vol]18 mg/dLNormal7-25The [facility] Physician GroupComment on above:Performed By: #### CK, HS TROP #### [place] [address] USAComplete Blood Count Auto Diffon 10-10-3880Vlsgobjlr (Bld) [#/Vol]0.1 10*3/uLNormal0.0-0.2The [facility] Physician GroupComment on above: Result Comment: PERFORMED BY: [place] [address] PATHOLOGIST HRIS COORDINATOR JAIDEN MONAHAN M.D.Performed By: #### CK, HS TROP #### [place] [address] USABasophils/100 WBC (Bld)1.0 %Normal.The [facility] Physician GroupComment on above:Performed By: #### CK, HS TROP #### [place] [address] USAEosinophils (Bld) [#/Vol]0.3 10*3/uLNormal0.0-0.45The [facility] Physician GroupComment on above:Performed By: #### CK, HS TROP #### [place] [address] USAEosinophils/100 WBC (Bld)3.8 %Normal.The [facility] Physician GroupComment on above:Performed By: #### CK, HS TROP #### [place] [address] USAErythrocyte distribution width (RBC) [Ratio]14.0 %Normal 11.9-15.3The [facility] Physician GroupComment on above:Performed By: #### CK, HS TROP #### [place] [address] USAHematocrit (Bld) [Volume fraction]35.3 %Dfopbx19.0-46.4The [facility] Physician GroupComment on above:Performed By: #### CK, HS TROP #### [place] [address] USAHemoglobin (Bld) [Mass/Vol]12.1 g/fZWpnxxe03.8-15.4The [facility] Physician GroupComment on above:Performed By: #### CK, HS TROP #### [place] [address] USALymphocytes (Bld) [#/Vol]2.0 10*3/uLNormal1.00-4.8The [facility] Physician GroupComment on above:Performed By: #### CK, HS TROP #### [facility] [address] [place] [address] USALymphocytes/100 WBC (Bld)30.0 %Normal.The [facility] Physician GroupComment on above:Performed By: #### CK, HS TROP #### [facility] [address] [place] [address] USAH (RBC) [Entitic mass]31.8 wcBmvazs77.7-34.3The [facility] Physician GroupComment on above:Performed By: #### CK, HS TROP #### [facility] [address] [place] [address] USAMCV (RBC) [Entitic vol]92.5 bNPldypq43-781Zjx [facility] Physician GroupComment on above:Performed By: #### CK, HS TROP #### [place] [address] USAMean Corpuscular HGB Conc34.4 g/oUZxpfnv13.0-35.0The [facility] Physician GroupComment on above:Performed By: #### CK, HS TROP #### [place] [address] USAMonocytes (Bld) [#/Vol]0.7 10*3/uLNormal0.0-0.8The [facility] Physician GroupComment on above:Performed By: #### CK, HS TROP #### [place] [address] USAMonocytes/100 WBC (Bld)10.5 %Normal.The [facility] Physician GroupComment on above:Performed By: #### CK, HS TROP #### [place] [address] USANeutrophils (Bld) [#/Vol]3.6 10*3/uLNormal1.8-7.7The [facility] Physician GroupComment on above:Performed By: #### CK, HS TROP #### [facility] [address] [place] [address] USANeutrophils/100 WBC (Bld)54.7 %Normal.The [facility] Physician GroupComment on above:Performed By: #### CK, HS TROP #### [facility] [address] [place] [address] USANRBC%0.0 /100{WBC}Normal0-0.5The [facility] Comment on above:Performed By: #### CK, HS TROP #### [facility] [address] [place] [address] USAPlatelet mean volume (Bld) [Entitic vol]7.8 fLNormal 6.3-10.7The [facility] Physician GroupComment on above:Performed By: #### CK, HS TROP #### [facility] [address] [place] [address] USAPlatelets (Bld) [#/Vol]158 10*3/vUYearyx517-346Axj [facility] Physician GroupComment on above:Performed By: #### CK, HS TROP #### [facility] [address] [place] [address] USARBC (Bld) [#/Vol]3.81 10*6/uLNormal3.60-5.00The [facility] Physician GroupComment on above:Performed By: #### CK, HS TROP #### [facility] [address] [place] [address] USAWBC (Bld) [#/Vol]6.6 10*3/uLNormal3.8-11.6The [facility] Physician GroupComment on above:Performed By: #### CK, HS TROP #### [facility] [address] [place], [place] [id number] USAECG 12 lead ECGon 79-52-2534RIV 12 lead [facility] [address] [place] [address] [place] [address] Electrocardiograph Report Signed Patient: Atiya Jha MR#: [id number] : 1940 Acct:[id number] Age/Sex: 84 / F ADM Date: 11/25/24 Loc: 4P Room: [address] [place] [address] Type: ADM IN Attending Dr: Nolan Ballesteros [...] significant change was found Confirmed by PAO MTZCHELSIE ([id number]) on 11/26/2024 11:53:56 AM Referred By: Electronically Signed By: CHELSIE CEDENO MD FAC Transcribed By: MUS Signed By Chelsie Cedeno MD, FACC 11/26/[address] [place] [address] Physician [facility] CenterECH echo transthoracicon 12-63-3882GAC echo transthoracicFISHER-TITUS [facility] Main [place] [address] [place] [address] Echocardiogram Signed Patient: Atiya Jha MR#: [id number] : 1940 Acct:[id number] Age/Sex: 84 / F ADM Date: 11/25/24 Loc: Room: [address] [place] [address] Type: ADM IN Attending Dr: Nolan Ballesteros DO Ordering Provider: Katya Borges MD Date of Service: 11/25/24 ECH/ECH echo transthoracic: Chest Pain Copies to: Chelsie [...] 5.0 mmHg Transcribed By: GAY Performed At: 11/26/24918 Signed By: Chelsie Cedeno MD, [facility] 11/26/24 1528[facility] Physician [facility] CenterTroponin I High Sensitivityon 59-23-7177Ltjwhlcs I High Fmbbhlvajhb250Eei scale high0-15The [facility] Physician [facility] CenterComment on above:Result Comment: Critical Result : Called to and read back by: EDUARD JASSO at: 11/26/2024 00:54:14 by: The Troponin units of report have been changed to meet the Chest Pain Accreditation requirement, element EC5.M1l2. Troponin units are changed from pg/ml to ng/L. Also, the decimal is removed and results are in whole numbers. PERFORMED BY: [place] [address] PATHOLOGIST HRIS COORDINATOR JAIDEN MONAHAN M.D.Performed By: #### HS TROP #### [place] [address] USAAnti-Xa UF Heparinon 35-47-1688Lkxm-Xa UF Heparin1.04 [IU]/mLOff scale high0.30-0.70The [facility] Physician [facility] CenterComment on above: Result Comment: Results called at 1831 on 11/25/24. Use the aPTT protocol when triglycerides are > 800 mg/dL, total bilirubin is > 20 mg/dL and/or patient has received a DOAC, Fondaparinux or LMWH within 72 hours AND baseline anti-Xa level is > 0.7 units/mL PERFORMED BY: [address] [address] PATHOLOGIST HRIS COORDINATOR JAIDEN MONAHAN M.D.Performed By: #### CMP, MG, CBC #### [place] [address] USABNP ser/plasOrdered By: Jerson Aranda on 11-25-2024 Natriuretic peptide B (Bld) [Mass/Vol]981.0 pg/mLHigh5-100[facility] CampusComment on above:Result Comment: PERFORMED BY: [place] [address] PATHOLOGIST HRIS COORDINATOR JAIDEN MONAHAN M.D.Performed By: #### CK, HS TROP #### [place] [address] USABasic Metabolic Panelon 57-09-7293Bzlis gap [Moles/Vol] 10.4 mmol/LNormal6.0-15.0The [facility] Physician GroupComment on above:Performed By: #### CK, HS TROP #### [place] [address] USACalcium [Mass/Vol]9.5 mg/dLNormal8.6-10.3The [facility] Physician GroupComment on above:Performed By: #### CK, HS TROP #### [place] [address] USAChloride [Moles/Vol]109 mmol/MZzow63-247Npf [facility] Physician GroupComment on above:Performed By: #### CK, HS TROP #### [facility] [address] [place] [address] USACO2 [Moles/Vol]26.6 mmol/XKrwzmx45.0-31.0The [facility] Physician GroupComment on above:Performed By: #### CK, HS TROP #### [place] [address] USACreatinine [Mass/Vol]0.79 mg/dLNormal0.60-1.20The [facility] Physician GroupComment on above:Performed By: #### CK, HS TROP #### [place] [address] USACreatinine Clr Calc Jkialmvb45.26NormalThe [facility] Physician GroupComment on above:Result Comment: PERFORMED BY: [place] [address] PATHOLOGIST HRIS COORDINATOR JAIDEN MONAHAN M.D.Performed By: #### CK, HS TROP #### [place] [address] USAGFR/1.73 sq M.predicted MDRD (S/P/Bld) [Vol rate/Area] mL/min/{1.73_m2}NormalThe [facility] Physician GroupComment on above:Performed By: #### CK, HS TROP #### [place] [address] USAGlucose [Mass/Vol]108 mg/kUHrvy00-533Ncf [facility] Physician GroupComment on above:Result Comment: Random Glucose Reference Range is dependent on time and content of last meal. Glucose of more than 200 mg/dL in a nonstressed, ambulatory subject supports the diagnosis of Diabetes Mellitus. ADA recommended reference rangePerformed By: #### CK, HS TROP #### [place] [address] USAPotassium [Moles/Vol]4.0 mmol/LNormal3.5-5.1The [facility] Physician GroupComment on above:Performed By: #### CK, HS TROP #### [place] [address] USASodium [Moles/Vol]142 mmol/EWzxinj805-372Vmc [facility] Physician GroupComment on above:Performed By: #### CK, HS TROP #### [place] [address] USAUrea nitrogen [Mass/Vol]13 mg/dLNormal7-25The [facility] Physician GroupComment on above:Performed By: #### CK, HS TROP #### [place] [address] USABasophils Auto (Bld) [#/Vol]Ordered By: Jerson Aranda on 68-75-8595Pnsxtzinp (Bld) [#/Vol]Automated basophil count0.0-0.2FMercy Health St. Elizabeth Youngstown HospitalBasophils/100 WBC Auto (Bld)Ordered By: Jerson Aranda on 46-37-5108Kciqeunrp/100 WBC (Bld)Automated basophil %.[facility] CampusCalcium [Mass/volume] in Serum or PlasmaOrdered By: Jerson Aranda on 37-11-2145Oeeyyse [Mass/Vol]Calcium [Mass/volume] in Serum or Plasma8.6-10.3 [facility] CampusCarbon dioxide, total [Moles/volume] in Serum or PlasmaOrdered By: Jerson Aranda on 19-26-9989JY7 [Moles/Vol]Carbon dioxide, total [Moles/volume] in Serum or Cytqib47.0-31.0[facility] CampusChloride [Moles/volume] in Serum or PlasmaOrdered By: Jerson Aranda on 14-36-7938Deaejwen [Moles/Vol]Chloride [Moles/volume] in Serum or PlasmaHigh 98-107[facility] CampusComplete Blood Count Auto Diffon 60-03-7399Bvjcmvjiq (Bld) [#/Vol]0.1 10*3/uLNormal0.0-0.2The [facility] Physician GroupComment on above:Result Comment: PERFORMED BY: [place] [address] PATHOLOGIST HRIS COORDINATOR JAIDEN MONAHAN M.D.Performed By: #### CK, HS TROP #### [facility] [address] [place] [address] USABasophils/100 WBC (Bld)1.3 %Normal.The [facility] Physician GroupComment on above:Performed By: #### CK, HS TROP #### [facility] [address] [place] [address] USAEosinophils (Bld) [#/Vol]0.2 10*3/uLNormal0.0-0.45The [facility] Physician GroupComment on above:Performed By: #### CK, HS TROP #### [facility] [address] [place] [address] USAEosinophils/100 WBC (Bld)3.4 %Normal.The [facility] Physician GroupComment on above:Performed By: #### CK, HS TROP #### [facility] [address] [place] [id number] USAErythrocyte distribution width (RBC) [Ratio]13.8 %Normal 11.9-15.3The [facility] Physician GroupComment on above:Performed By: #### CK, HS TROP #### [facility] [address] [place] [address] USAHematocrit (Bld) [Volume fraction]35.2 %Lxvmbv43.0-46.4The [facility] Physician GroupComment on above:Performed By: #### CK, HS TROP #### [facility] [address] [place] [address] USAHemoglobin (Bld) [Mass/Vol]12.1 g/pRLgcscz88.8-15.4The [facility] Physician GroupComment on above:Performed By: #### CK, HS TROP #### [place] [address] USALymphocytes (Bld) [#/Vol]2.0 10*3/uLNormal1.00-4.8The [facility] Physician GroupComment on above:Performed By: #### CK, HS TROP #### [place] [id number] USALymphocytes/100 WBC (Bld)32.0 %Normal.The [facility] Physician GroupComment on above:Performed By: #### CK, HS TROP #### [facility] [address] [place], [place] [id number] USAMCH (RBC) [Entitic mass]32.4 lfQkhvrp83.7-34.3The [facility] Physician GroupComment on above:Performed By: #### CK, HS TROP #### [facility] [address] [place] [id number] USAMCV (RBC) [Entitic vol]94.0 aWMivmrf47-619Vlp [facility] Physician GroupComment on above:Performed By: #### CK, HS TROP #### [facility] [address] [place] [address] USAMean Corpuscular HGB Conc34.5 g/nLBeytvl66.0-35.0The [facility] Physician GroupComment on above:Performed By: #### CK, HS TROP #### [facility] [address] [place] [address] USAMonocytes (Bld) [#/Vol]0.5 10*3/uLNormal0.0-0.8The [facility] Physician GroupComment on above:Performed By: #### CK, HS TROP #### [place] [address] USAMonocytes/100 WBC (Bld)17.01 %Normal0.00-20.00The [facility] Physician GroupComment on above:Performed By: #### CK, HS TROP #### [place] [address] USAMonocytes/100 WBC (Bld)8.6 %Normal.The [facility] Physician GroupComment on above:Performed By: #### CK, HS TROP #### [place] [address] USANeutrophils (Bld) [#/Vol]3.4 10*3/uLNormal1.8-7.7The [facility] Physician GroupComment on above:Performed By: #### CK, HS TROP #### [place] [address] USANeutrophils/100 WBC (Bld)54.7 %Normal.The [facility] Physician GroupComment on above:Performed By: #### CK, HS TROP #### [facility] [address] [place] [address] USANRBC%0.1 /100{WBC}Normal0-0.5The [facility] Comment on above:Performed By: #### CK, HS TROP #### [facility] [address] [place] [address] USAPlatelet mean volume (Bld) [Entitic vol]7.5 fLNormal 6.3-10.7The [facility] Physician GroupComment on above:Performed By: #### CK, HS TROP #### [facility] [address] [place] [address] USAPlatelets (Bld) [#/Vol]178 10*3/ySAugtyg582-144Tko [facility] Physician GroupComment on above:Performed By: #### CK, HS TROP #### [facility] [address] [place] [address] USARBC (Bld) [#/Vol]3.75 10*6/uLNormal3.60-5.00The [facility] Physician GroupComment on above:Performed By: #### CK, HS TROP #### [facility] [address] [place] [address] USAWBC (Bld) [#/Vol]6.2 10*3/uLNormal3.8-11.6The [facility] Physician GroupComment on above:Performed By: #### CK, HS TROP #### [place] [address] USACreatine kinase [Enzymatic activity/volume] in Serum or PlasmaOrdered By: Jerson Aranda on 23-70-4577AG [Catalytic activity/Vol]Creatine kinase [Enzymatic activity/volume] in Serum or Ahtsif69-804YrwniyknpSumma Health Akron CampusCK [Catalytic activity/Vol]129 U/RNutztv08-425IdknyretmSumma Health Akron CampusComment on above:Performed By: #### CK, HS TROP #### [place] [address] USACreatinine [Mass/volume] in Serum or PlasmaOrdered By: Jerson Aranda on 33-29-6134Gfcmczelql [Mass/Vol]Creatinine [Mass/volume] in Serum or Plasma0.60-1.20[facility] CampusEosinophils Auto (Bld) [#/Vol]Ordered By: Jerson Aranda on 31-84-6024Tbtiiisjdad (Bld) [#/Vol]Automated eosinophil count0.0-0.45[facility] CampusEosinophils/100 WBC Auto (Bld)Ordered By: Jerson Aranda on 90-13-1490Panyuutbtzb/100 WBC (Bld) Automated eosinophil %.[facility] CampusErythrocyte distribution width Auto (RBC) [Ratio]Ordered By: Jerson Aranda on 16-56-6771Ysslrtydras distribution width (RBC) [Ratio]Erythrocyte distribution width [Ratio] by Automated count11.9-15.3FMercy Health St. Elizabeth Youngstown HospitalGlucose [Mass/volume] in Serum or PlasmaOrdered By: Jerson Aranda on 46-23-0569Dewkcmk [Mass/Vol] Glucose [Mass/volume] in Serum or ZlocmqTief60-518MtapxylvxSumma Health Akron CampusComment on above:ADA recommended reference rangeRandom Glucose Reference Range is dependent on time and content of last meal. Glucose of more than 200 mg/dL in a nonstressed, ambulatory subject supports the diagnosisof Diabetes Mellitus.Hematocrit Auto (Bld) [Volume fraction]Ordered By: Jerson Aranda on 56-60-0035Jbjyhhlvke (Bld) [Volume fraction]Hematocrit [Volume Fraction] of Blood by Automated count34.0-46.4FMercy Health St. Elizabeth Youngstown HospitalHemoglobin [Mass/volume] in BloodOrdered By: Jerson Aranda on 54-76-5527Sdmlsrpkbb (Bld) [Mass/Vol]Hemoglobin [Mass/volume] in Blood11.8-15.4FMercy Health St. Elizabeth Youngstown HospitalINR in Platelet poor plasma by Coagulation assayOrdered By: Jerson Aranda on 81-65-0529XFK Coag (PPP) [Relative time]INR in Platelet poor plasma by Coagulation assaySumma Health Akron CampusComment on above:INR Therapeutic Range A) Pre- and Peroperative OAT started two weeks before surgery. NOT HIP SURGERY: 1.5 - 2.5 HIP SURGERY: 2 - 3B) Primary and secondary prevention of venous THROMBOSIS: 2 - 3C) Active venous thrombosis, pulmonary embolismand prevention of recurrent venous thrombosis: 2 - 3D) Prevention of arterial thromboembolismincluding patients with mechanical heart valves: 3 - 4.5INR Coag (PPP) [Relative time]0.9 {INR}NormalSumma Health Akron CampusComment on above:INR Therapeutic Range A) Pre- and Peroperative OAT started two weeks before surgery. NOT HIP SURGERY: 1.5 - 2.5 HIP SURGERY: 2 - 3B) Primary and secondary prevention of venous THROMBOSIS: 2 - 3C) Active venous thrombosis, pulmonary embolismand prevention of recurrent venous thrombosis: 2 - 3D) Preve ntion of arterial thromboembolismincluding patients with mechanical heart valves: 3 - 4.5Result Comment: INR Therapeutic Range A) Pre- and [...] heart valves: 3 - 4.5 PERFORMED BY: [place] [address] PATHOLOGIST HRIS COORDINATOR JAIDEN MONAHAN M.D.Performed By: #### CK, HS TROP #### [place] [address] USALeukocytes [#/volume] corrected for nucleated erythrocytes in Blood by Automated counOrdered By: Jerson Aranda on 00-88-0930HMS corrected for nucl RBC Auto (Bld) [#/Vol]Leukocytes [#/volume] corrected for nucleated erythrocytes in Blood by Automated coun3.8-11.6FMercy Health St. [facility] Hospital Lymphocytes Auto (Bld) [#/Vol]Ordered By: Jerson rAanda on 14-12-6092Vfbowohdxth (Bld) [#/Vol]Lymphocytes [#/volume] in Blood by Automated count1.00-4.8[facility] CampusLymphocytes/100 WBC Auto (Bld)Ordered By: Jerson Aranda on 06-18-8594Zlqvycbbwrg/100 WBC (Bld)Lymphocytes/100 leukocytes in Blood by Automated count.[facility] HospitalH Auto (RBC) [Entitic mass] Ordered By: Jerson Aranda on 09-04-2376GZE (RBC) [Entitic mass]MCH [Entitic mass] by Automated count24.7-34.3FMercy Health St. Elizabeth Youngstown HospitalMCHC Auto (RBC) [Mass/Vol]Ordered By: Jerson Aranda on 59-54-6769SHOE (RBC) [Mass/Vol]MCHC [Mass/volume] by Automated count32.0-35.0[facility] CampusMCV Auto (RBC) [Entitic vol]Ordered By: Jerson Aranda on 61-33-2548LCL (RBC) [Entitic vol]MCV [Entitic volume] by Automated oxtva62-822YqdslsmhmSumma Health Akron CampusMagnesium [Mass/volume] in Serum or PlasmaOrdered By: Jerson Aranda on 82-11-8827Fahdpxavv [Mass/Vol]Magnesium [Mass/volume] in Serum or Plasma1.9-2.7 [facility] CampusMagnesium [Mass/Vol]1.9 mg/dLNormal1.9-2.7 [facility] CampusComment on above:Result Comment: PERFORMED BY: [place] [address] PATHOLOGIST HRIS COORDINATOR JAIDEN MONAHAN M.D.Performed By: #### CK, HS TROP #### [place] [address] USAMonocyte distribution width [Entitic volume] in Blood by AutomatedOrdered By: Jerson Aranda on 37-03-5238Xldadojc distribution width Auto (Bld) [Entitic vol]Monocyte distribution width [Entitic volume] in Blood by Automated0.00-20.00[facility] CampusMonocyte distribution width Auto (Bld) [Entitic vol]17.01 %0.00-20.00[facility] Monocytes Auto (Bld) [#/Vol]Ordered By: Jerson Aranda on 43-48-9136Uimyhhfog (Bld) [#/Vol]Automated blood monocyte count0.0-0.8[facility] CampusMonocytes/100 WBC Auto (Bld)Ordered By: Jerson Aranda on 11-25-2024 Monocytes/100 WBC (Bld)Automated monocyte %.[facility] Natriuretic peptide B [Mass/Vol]Ordered By: Jerson Aranda on 11-25-2024 Natriuretic peptide B (Bld) [Mass/Vol]BNP ser/plasHigh5-100[facility] CampusNeutrophils Auto (Bld) [#/Vol]Ordered By: Jerson Aranda on 81-46-0100Pyypconfkbn (Bld) [#/Vol]Neutrophils [#/volume] in Blood by Automated count1.8-7.7FMercy Health St. Elizabeth Youngstown HospitalNeutrophils/100 WBC Auto (Bld) Ordered By: Jerson Aranda on 42-15-3374Kjuyvqlgent/100 WBC (Bld)Automated neutrophil %.[facility] CampusNo Panel InformationOrdered By: Jerson Aranda on 52-73-3523Vaqvqrqbl GFR (CKD-EPI)> 60.0 mL/MinSumma Health Akron CampusPharmacy Creatinine Clearance (Chem46.26[facility] CampusNucleated erythrocytes [Presence] in Blood by Automated count Ordered By: Jerson Aranda on 85-60-4338Vxuxsvixv RBC Auto Ql (Bld)Nucleated erythrocytes [Presence] in Blood by Automated count0-0.5FMercy Health St. Elizabeth Youngstown HospitalPlatelet mean volume Auto (Bld) [Entitic vol]Ordered By: Jerson Aranda on 82-39-2365Ujlybudb mean volume (Bld) [Entitic vol]Platelet mean volume [Entitic volume] in Blood by Automated count6.3-10.7FMercy Health St. Elizabeth Youngstown HospitalPlatelets Auto (Bld) [#/Vol]Ordered By: Jerson Aranda on 11-25-2024 Platelets (Bld) [#/Vol]Platelets [#/volume] in Blood by Automated -122 [facility] CampusPotassium [Moles/volume] in Serum or Plasma Ordered By: Jerson Aranda on 45-11-5773Kjxchvzwg [Moles/Vol]Potassium [Moles/volume] in Serum or Plasma3.5-5.1FMercy Health St. [facility] Hospital Prothrombin time (PT)Ordered By: Jerson Aranda on 08-26-3249CY Coag (PPP) [Time] Prothrombin time (PT)9.0-12.9[facility] CampusComment on above:A hematocrit value greater than 55% may lead to inaccurate results in coagulation testing. Patientshaving hematocrit values >55% require a special collection tube for coagulation studies. Please contact the laboratory at [phone] for redraw instructions.PT Coag (PPP) [Time]10.8 sNormal9.0-12.9[facility] CampusComment on above:A hematocrit value greater than 55% may lead to inaccurate results in coagulation testing. Patientshaving hematocrit values >55% require a special collection tube for coagulation studies. Please contact the laboratory at [phone] for redraw instructions.Result Comment: A hematocrit value greater than 55% may lead to inaccurate results in coagulation testing. Patients having hematocrit values >55% require a special collection tube for coagulation studies. Please contact the laboratory at [phone] for redraw instructions.Performed By: #### CK, HS TROP #### [facility] [address] [place] [address] USARBC Auto (Bld) [#/Vol]Ordered By: Jerson Aranda on 53-14-6896ULH (Bld) [#/Vol]Erythrocytes [#/volume] in Blood by Automated count 3.60-5.00[facility] Berger Hospitalerum or plasma anion gap determinationOrdered By: Jerson Aranda on 46-69-7336Bdcfh gap [Moles/Vol]Serum or plasma anion gap determination6.0-15.0[facility] Hospitalodium [Moles/volume] in Serum or PlasmaOrdered By: Jerson Aranda on 74-07-7448Yihkii [Moles/Vol]Sodium [Moles/volume] in Serum or Mlirip664-911SqkhsvvepSumma Health Akron CampusTroponin I High Sensitivityon 58-73-6648Wbpsyrsc I High Wclqwgtmgel256Hcm scale high0-15The [facility] Physician GroupComment on above: Result Comment: Critical Result : Called to and read back by: BABITA JASSO at: 11/25/2024 21:24:04 by:JUAN CARLOS The Troponin units of report have been changed to meet the Chest Pain Accreditation requirement, element EC5.M1l2. Troponin units are changed from pg/ml to ng/L. Also, the decimal is removed and results are in whole numbers. PERFORMED BY: [facility] [address] [place] [address] PATHOLOGIST HRIS COORDINATOR JAIDEN MONAHAN M.D.Performed By: #### CK, HS TROP #### [address] [address] USATroponin I High Rmmpvhpjkoj238Qoa scale high0-15[facility] Physician [facility] CenterComment on above:Result Comment: Critical Result : Called to and read back by: ASHLIE GEE at: 11/25/2024 18:11:05 by:JUAN CARLOS The Troponin units of report have been changed to meet the Chest Pain Accreditation requirement, element EC5.M1l2. Troponin units are changed from pg/ml to ng/L. Also, the decimal is removed and results are in whole numbers. PERFORMED BY: [place] [address] PATHOLOGIST HRIS COORDINATOR JAIDEN MONAHAN M.D.Performed By: #### HS TROP #### [address] [address] USATroponin I High Awddzzibltp540Lqn scale high0-15[facility] Physician [facility] CenterComment on above:Result Comment: Critical Result : Called to and read back by: LISA JOHNSON at: 11/25/2024 15:47:56 by:KAM The Troponin units of report have been changed to meet the Chest Pain Accreditation requirement, element EC5.M1l2. Troponin units are changed from pg/ml to ng/L. Also, the decimal is removed and results are in whole numbers. PERFORMED BY: [place] [address] PATHOLOGIST HRIS COORDINATOR JAIDEN MONAHAN M.D.Performed By: #### CK, HS TROP #### [facility] [address] [place] [address] USATroponin I.cardiac [Mass/volume] in Serum or Plasma by Detection limit <= 0.01 ng/Ordered By: Jerson Aranda on 43-43-5726Utfwehic I.cardiac DL <= 0.01 ng/mL [Mass/Vol]Troponin I.cardiac [Mass/volume] in Serum or Plasma by Detection limit <= 0.01 ng/Critically [address] StreetComment on above:Critical Result : Called to and read back by: LISA JOHNSON at: 11/25/2024 15:47:56 by:KAMThe Troponinunits of report have been changed to meet the Chest Pain Accreditation requirement, element EC5.M1l2. Troponin units are changed from pg/ml to ng/L. Also, the decimal is removed and results are in whole numbers.Urea nitrogen [Mass/volume] in Serum or Plasma Ordered By: Jerson Aranda on 80-65-3231Enjw nitrogen [Mass/Vol]Urea nitrogen [Mass/volume] in Serum or Plasma02-24[facility] CampusWBC Auto (Bld) [#/Vol]Ordered By: Jerson Aranda on 72-63-6588MZL (Bld) [#/Vol]Leukocytes [#/volume] in Blood by Automated count3.8-11.6FMercy Health St. [facility] Hospital X-ray reportOrdered By: Whitley Love on 53-14-5950Cmihs reportFISHER-TITUS [place] [address] XRay Report Signed Patient: Atiya Jha MR#: Hannah [id number] : 1940 Acct:[id number] Age/Sex: 84 / F ADM Date: 5 [...] Love M.D. 11/25/2024 2:06 PM Dictation Location: [place] [address] Transcribed By: [facility] 11/25/24 140 Dictated By: Whitley Love MD 11/25/241404 Signed By: 11/25/24 1406 [facility] Work Phone: xr chest 2V*on 97-84-8025UX chest 2V*[facility] [place] [address] [place] [address] XRay Report Signed Patient: Atiya Jha MR#: [id number] : 1940 Acct:[id number] Age/Sex: 84 / F ADM Date: 11/25/24 Loc: ER Room: Type: PRE ER Attending Dr: Copies to: MARKO PROVIDER Ordering Provider: MARKO PROVIDER Date of Service: 11/25/24 XR/XR chest 2V*: [...] Love M.D. 11/25/2024 2:06 PM Dictation Location: [place] [address] Transcribed By: [facility] 11/25/241405 Dictated By: Whitley Love MD 11/25/241404 Signed By: 11/25/24 140[facility] Physician GroupActivated partial thromboplastin time (aPTT) in platelet poor plasma by coagulation aon 55-09-5302mFLJ Coag (PPP) [Time]Activated partial thromboplastin time (aPTT) in platelet poor plasma by coagulation a22.3-36.2FMercy Health St. Elizabeth Youngstown HospitalaPTT Coag (PPP) [Time]26.7 s22.3-36.2FMercy Health St. Elizabeth [facility] HospitalBasophils Auto (Bld) [#/Vol]on 70-43-0861Rivnoeshc (Bld) [#/Vol]Automated basophil count0.0-0.1 [facility] CampusBasophils (Bld) [#/Vol]0.0 10 3/uL0.0-0.1 [facility] CampusBasophils/100 WBC Auto (Bld)on 11-15-2024 Basophils/100 WBC (Bld)Automated basophil %0.2-2.0[facility] CampusBasophils/100 WBC (Bld)0.3 %0.2-2.0[facility] Cholesterol in LDL Calc [Mass/Vol]on 79-73-7864Wbjqddbwmpb in LDL [Mass/Vol] Cholesterol in LDL [Mass/volume] in Serum or Plasma by calculationSumma Health Akron CampusComment on above:<100 mg/dl CJVLQJQ935-962 mg/dl NEAR OR ABOVE HLFKTNF739-394 mg/dl BORDERLINE TMFS198-638 mg/dl HIGH>190 mg/dl VERY HIGH Cholesterol in LDL [Mass/Vol]93.8 mg/dLSumma Health Akron CampusComment on above:<100 mg/dl GRDXQRT804-945 mg/dl NEAR OR ABOVE JTRACXZ407-874 mg/dl BORDERLINE LCOU451-607 mg/dl HIGH>190 mg/dl VERY HIGHCholesterol in VLDL Calc [Mass/Vol]on 49-87-1328Elftzlwuzqv in VLDL [Mass/Vol]Cholesterol in VLDL [Mass/volume] in Serum or Plasma by calculationSumma Health Akron Campus Cholesterol in VLDL [Mass/Vol]29.2 mg/dLSumma Health Akron Campus Eosinophils/100 WBC Auto (Bld)on 04-02-7416Fvxxqireapn/100 WBC (Bld)Automated eosinophil %0.9-7.0[facility] CampusEosinophils/100 WBC (Bld)3.2 %0.9-7.0[facility] CampusErythrocyte distribution width Auto (RBC) [Ratio]on 87-84-4619Oqhobmciwxu distribution width (RBC) [Ratio] Erythrocyte distribution width [Ratio] by Automated count11.0-15.0[facility] CampusErythrocyte distribution width (RBC) [Ratio]12.9 % 11.0-15.0[facility] CampusEstimated glomerular filtration rate (GFR) non- Americanon 91-65-9471YAG/1.73 sq M.predicted among non-blacks MDRD (S/P/Bld) [Vol rate/Area]Estimated glomerular filtration rate (GFR) non- AmericanLow>=60 mL/min/1.73m 2FMercy Health St. Elizabeth Youngstown HospitalGFR/1.73 sq M.predicted among non-blacks MDRD (S/P/Bld) [Vol rate/Area]45 mL/min/{1.73_m2}Low>=60 mL/min/1.73m 2FMercy Health St. Elizabeth [facility] Hospital Hematocrit Auto (Bld) [Volume fraction]on 45-67-5572Itbbiloxel (Bld) [Volume fraction]Hematocrit [Volume Fraction] of Blood by Automated count36.0-48.0 [facility] CampusHematocrit (Bld) [Volume fraction]40.2 % 36.0-48.0[facility] CampusHemoglobin [Mass/volume] in Bloodon 03-63-9909Skewyskfwz (Bld) [Mass/Vol]Hemoglobin [Mass/volume] in Blood12.0-16.0 [facility] CampusHemoglobin (Bld) [Mass/Vol]13.3 g/dL12.0-16.0 [facility] CampusINR in Platelet poor plasma by Coagulation assayon 52-17-2649ETD Coag (PPP) [Relative time]INR in Platelet poor plasma by Coagulation assaySumma Health Akron CampusComment on above:DESIRED INR:2.0-3.0 CONDITIONS NOT LISTED BELOW2.5-3.5 FOR PROSTHETIC HEART VALVE REPLACEMENT2.5-3.5 RECURRENT THROMBOSISINR Coag (PPP) [Relative time]1.00 {INR} [facility] CampusComment on above:DESIRED INR:2.0-3.0 CONDITIONS NOT LISTED BELOW2.5-3.5 FOR PROSTHETIC HEART VALVE REPLACEMENT2.5-3.5 RECURRENT THROMBOSISLaboratory - Chemistry and Chemistry - challengeon 12-98-1048DKH [Catalytic activity/Vol]23 U/T59-89IcoruqbxiSumma Health Akron CampusAST [Catalytic activity/Vol]22 U/Y22-39HenheshazSumma Health Akron CampusCalcium [Mass/Vol]10.3 mg/dLHigh8.5-10.1FMercy Health St. Elizabeth Youngstown HospitalChloride [Moles/Vol]100 mmol/U03-019PsvtsnjmwSumma Health Akron CampusCholesterol [Mass/Vol]169 mg/dL<=200[facility] CampusCholesterol in HDL [Mass/Vol]46 mg/pT75-32TwozyxoqsSumma Health Akron CampusComment on above:> or =60 mg/dl - LOW CARDIOVASCULAR RISK<40 mg/dl - HIGH CARDIOVASCULAR RISKCO2 [Moles/Vol]29.3 mmol/L21.0-32.0[facility] CampusCreatinine [Mass/Vol]1.15 mg/dLHigh0.55-1.02[facility] CampusGFR/1.73 sq M.predicted MDRD (S/P/Bld) [Vol rate/Area]54 mL/min/{1.73_m2}Low>=60 mL/min/1.73m 2FMercy Health St. Elizabeth Youngstown HospitalGlucose [Mass/Vol]105 mg/eC46-129 [facility] CampusPotassium [Moles/Vol]4.1 mmol/L3.5-5.1FTwin City Hospitalodium [Moles/Vol]139 mmol/S598-610RhyrwdescSumma Health Akron CampusTriglyceride [Mass/Vol]146 mg/dL<=150[facility] CampusUrea nitrogen [Mass/Vol]20.0 mg/dLHigh7.0-18.0[facility] CampusUrea nitrogen/Creatinine [Mass ratio]17.4 mg/mgSumma Health Akron CampusLaboratory - Hematology and Cell countson 29-93-7373Moilndvv granulocytes/100 WBC (Bld)0.0 %0.0-0.5FMercy Health St. [facility] Hospital Leukocytes [#/volume] corrected for nucleated erythrocytes in Blood by Automated counon 10-07-0265CLD corrected for nucl RBC Auto (Bld) [#/Vol]Leukocytes [#/volume] corrected for nucleated erythrocytes in Blood by Automated coun 4.0-11.0[facility] CampusWBC corrected for nucl RBC Auto (Bld) [#/Vol]5.9 10 3/uL4.0-11.0[facility] CampusLymphocytes Auto (Bld) [#/Vol]on 31-90-6666Ayvelazjppp (Bld) [#/Vol]Lymphocytes [#/volume] in Blood by Automated count1.2-3.8[facility] CampusLymphocytes (Bld) [#/Vol]1.9 10 3/uL1.2-3.8[facility] CampusLymphocytes/100 WBC Auto (Bld)on 51-47-4595Znoqdpecree/100 WBC (Bld)Lymphocytes/100 leukocytes in Blood by Automated count20.5-60.0[facility] Lymphocytes/100 WBC (Bld)32.5 %20.5-60.0[facility] HospitalH Auto (RBC) [Entitic mass]on 76-97-8986WJT (RBC) [Entitic mass]MCH [Entitic mass] by Automated count26.7-34.0[facility] (RBC) [Entitic mass]31.7 pg26.7-34.0[facility] Auto (RBC) [Mass/Vol] on 61-59-5866LDQO (RBC) [Mass/Vol]MCHC [Mass/volume] by Automated count29.9-35.2 [facility] HospitalHC (RBC) [Mass/Vol]33.1 g/dL29.9-35.2 [facility] HospitalV Auto (RBC) [Entitic vol]on 49-32-0928CCR (RBC) [Entitic vol]MCV [Entitic volume] by Automated count81.0-99.0[facility] HospitalV (RBC) [Entitic vol]95.7 fL81.0-99.0[facility] CampusMonocytes Auto (Bld) [#/Vol]on 01-80-4777Bdiwlmlkr (Bld) [#/Vol] Automated blood monocyte count0.3-0.8[facility] CampusMonocytes (Bld) [#/Vol]0.6 10 3/uL0.3-0.8[facility] CampusMonocytes/100 WBC Auto (Bld)on 51-86-6570Afliqgrpe/100 WBC (Bld)Automated monocyte %1.7-12.0 [facility] CampusMonocytes/100 WBC (Bld)9.7 %1.7-12.0[facility] CampusNeutrophils Auto (Bld) [#/Vol]on 09-31-7904Ydqkzgimwfz (Bld) [#/Vol]Neutrophils [#/volume] in Blood by Automated count1.4-6.5FMercy Health St. [facility] HospitalNeutrophils (Bld) [#/Vol]3.2 10 3/uL1.4-6.5FMercy Health St. [facility] HospitalNeutrophils/100 WBC Auto (Bld)on 11-15-2024 Neutrophils/100 WBC (Bld)Automated neutrophil %43.0-75.0[facility] CampusNeutrophils/100 WBC (Bld)54.3 %43.0-75.0[facility] CampusNo Panel Informationon 73-00-9264Omxgtikykwr # (Auto)0.2 10 3/uL0.0-0.7 [facility] CampusImmature Granulocyte # (Auto)0.00 10 3/uL 0.00-0.03[facility] CampusPlatelet mean volume Auto (Bld) [Entitic vol]on 65-47-3779Wcmkqbyr mean volume (Bld) [Entitic vol]Platelet mean volume [Entitic volume] in Blood by Automated count9.5-13.5FMercy Health St. [facility] HospitalPlatelet mean volume (Bld) [Entitic vol]9.7 fL9.5-13.5FMercy Health St. [facility] HospitalPlatelets Auto (Bld) [#/Vol]on 63-03-4319Zlbzhxdrg (Bld) [#/Vol]Platelets [#/volume] in Blood by Automated -295HuchtfyupSumma Health Akron CampusPlatelets (Bld) [#/Vol]183 10 3/vQ458-942XpdhngkzlSumma Health Akron CampusProthrombin time (PT)on 40-35-5502EK Coag (PPP) [Time]Prothrombin time (PT)9.0-11.6FMercy Health St. [facility] HospitalPT Coag (PPP) [Time]10.6 s 9.0-11.6FMercy Health St. [facility] HospitalRBC Auto (Bld) [#/Vol]on 02-05-5405GGZ (Bld) [#/Vol]Erythrocytes [#/volume] in Blood by Automated count4.20-5.40 [facility] CampusRBC (Bld) [#/Vol]4.20 10 6/uL4.20-5.40[facility] Hospitalerum or plasma anion gap determinationon 11-15-2024 Anion gap [Moles/Vol]Serum or plasma anion gap determinationSumma Health Akron CampusAnion gap [Moles/Vol]13.8 mmol/LFMercy Health St. [facility] Serum or plasma total cholesterol/high density lipoprotein (HDL) cholesterol mass josué 62-78-1849Qvtrrqqwotj.total/Cholesterol in HDL [Mass ratio]Serum or plasma total cholesterol/high density lipoprotein (HDL) cholesterol mass rat [facility] CampusComment on above:3.3 - 4.4 LOW RISK4.4 - 7.1 AVERAGE RISK7.1 - 11.0 MODERATE RISK>11.0 HIGH RISKCholesterol.total/Cholesterol in HDL [Mass ratio]3.7 {ratio}[facility] CampusComment on above: 3.3 - 4.4 LOW RISK4.4 - 7.1 AVERAGE RISK7.1 - 11.0 MODERATE RISK>11.0 HIGH RISK ECG 12 Leadon 36-76-8453EpewutglvgHolmes County Joel [facility] Hospital Work Phone: Sinus rhythm with few PACs and nonspecific ST-T changesCPACSHolmes County Joel Pomerene [facility] Hospital Work Phone: Laboratory - Chemistry and Chemistry - challengeon 16-69-7234Ltledcaha Ql (U)NegativeSumma Health Akron CampusGlucose (U) [Mass/Vol]NegativeSumma Health Akron CampusKetones Ql (U)Negative [facility] CampuspH (U)6.0 [pH][facility] Specific gravity (U) [Rel density]1.010[facility] Urobilinogen (U) [Mass/Vol]0.2 mg/dLSumma Health Akron CampusLaboratory - Specimen informationon 97-39-9642Qpbjnmnqqj (U)cloudySumma Health Akron CampusColor (U)yellowSumma Health Akron CampusLaboratory - Urinalysison 13-52-3506Nrlwhmmpq esterase Test strip Ql (U)+++[facility] CampusNitrite Ql (U)NegativeSumma Health Akron CampusProtein Ql (U)++[facility] CampusNo Panel Informationon 92-82-7778Iibyw Occult Blood++[facility] CampusBasophils Auto (Bld) [#/Vol]on 74-05-2957Absgfmpbq (Bld) [#/Vol]Automated basophil count0.0-0.1FMercy Health St. [facility] HospitalBasophils/100 WBC Auto (Bld)on 14-92-2338Rvjbykqzs/100 WBC (Bld)Automated basophil %0.2-2.0[facility] CampusCholesterol in LDL Calc [Mass/Vol]on 08-25-2610Kposveqhjxq in LDL [Mass/Vol]Cholesterol in LDL [Mass/volume] in Serum or Plasma by calculationSumma Health Akron CampusComment on above:<100 mg/dl QZVSBYB215-794 mg/dl NEAR OR ABOVE ZKRCXGE883- 159 mg/dl BORDERLINE IETZ710-282 mg/dl HIGH>190 mg/dl VERY HIGHCholesterol in VLDL Calc [Mass/Vol]on 45-10-6990Yrmrhlfzkmj in VLDL [Mass/Vol]Cholesterol in VLDL [Mass/volume] in Serum or Plasma by calculationSumma Health Akron CampusEosinophils/100 WBC Auto (Bld)on 77-61-0594Dsknitikreb/100 WBC (Bld) Automated eosinophil %0.9-7.0[facility] CampusErythrocyte distribution width Auto (RBC) [Ratio]on 15-63-6603Exgkipemxxy distribution width (RBC) [Ratio]Erythrocyte distribution width [Ratio] by Automated count11.0-15.0 [facility] CampusEstimated glomerular filtration rate (GFR) non- Americanon 36-56-9260FRW/1.73 sq M.predicted among non-blacks MDRD (S/P/Bld) [Vol rate/Area]Estimated glomerular filtration rate (GFR) non- AmericanLow>=60 mL/min/1.73m 2FMercy Health St. Elizabeth Youngstown HospitalGlobulin Calc (S) [Mass/Vol]on 33-52-1711Jmuklfck (S) [Mass/Vol]Serum globulin measurement by calculation (mass/volume)[facility] CampusHematocrit Auto (Bld) [Volume fraction]on 11-70-1165Efcvfmuwts (Bld) [Volume fraction]Hematocrit [Volume Fraction] of Blood by Automated count36.0-48.0[facility] CampusHemoglobin [Mass/volume] in Bloodon 35-47-2695Uxbndvbsej (Bld) [Mass/Vol] Hemoglobin [Mass/volume] in Blood12.0-16.0[facility] CampusIron binding capacity [Mass/volume] in Serum or Plasmaon 07-11-1266Yesp binding capacity [Mass/Vol]Iron binding capacity [Mass/volume] in Serum or Plasma 250.0-450.0[facility] CampusIron saturation [Mass Fraction] in Serum or Plasmaon 84-56-4662Tozb saturation [Mass fraction]Iron saturation [Mass Fraction] in Serum or PlasmaSumma Health Akron CampusLaboratory - Chemistry and Chemistry - challengeon 25-50-1130Cxrhumh [Mass/Vol]3.6 g/dL 3.4-5.0[facility] CampusALP [Catalytic activity/Vol]54 U/L46-116 [facility] CampusALT [Catalytic activity/Vol]19 U/L14-59 [facility] CampusAST [Catalytic activity/Vol]19 U/L15-37 [facility] CampusBilirubin [Mass/Vol]0.9 mg/dL0.2-1.0[facility] CampusCalcium [Mass/Vol]8.8 mg/dL8.5-10.1FMercy Health St. Elizabeth [facility] HospitalChloride [Moles/Vol]107 mmol/S89-034YmonulwjsSumma Health Akron CampusCholesterol [Mass/Vol]167 mg/dL<=200[facility] Cholesterol in HDL [Mass/Vol]45 mg/aM95-40DnkexqynaSum[facility] Health [facility] Campus Comment on above:> or =60 mg/dl - LOW CARDIOVASCULAR RISK<40 mg/dl - HIGH CARDIOVASCULAR RISKCO2 [Moles/Vol]27.9 mmol/L21.0-32.0[facility] CampusCreatinine [Mass/Vol]1.02 mg/dL0.55-1.02[facility] Ferritin [Mass/Vol]73.0 ng/mL8.0-252.0[facility] CampusGFR/1.73 sq M.predicted MDRD (S/P/Bld) [Vol rate/Area]mL/min/{1.73_m2}>=60 mL/min/1.73m 2 [facility] CampusGlucose [Mass/Vol]89 mg/tF74-181XlgltkmkiSumma Health Akron CampusIron [Mass/Vol]88.0 ug/dL50.0-170.0[facility] CampusPotassium [Moles/Vol]3.7 mmol/L3.5-5.1FMercy Health St. [facility] HospitalProtein [Mass/Vol]6.5 g/dL6.4-8.2FTwin City Hospitalodium [Moles/Vol]141 mmol/U566-099WhjcezekvSumma Health [facility] CampusTriglyceride [Mass/Vol]112 mg/dL<=150[facility] CampusUrea nitrogen [Mass/Vol]13.0 mg/dL7.0-18.0[facility] CampusUrea nitrogen/Creatinine [Mass ratio]12.7 mg/mgSumma Health [facility] Campus Laboratory - Hematology and Cell countson 11-86-2368Tjfrwjyh granulocytes/100 WBC (Bld)0.2 %0.0-0.5FMercy Health St. Elizabeth [facility] HospitalLeukocytes [#/volume] corrected for nucleated erythrocytes in Blood by Automated counon 23-61-9115XFM corrected for nucl RBC Auto (Bld) [#/Vol]Leukocytes [#/volume] corrected for nucleated erythrocytes in Blood by Automated coun4.0-11.0[facility] CampusLymphocytes Auto (Bld) [#/Vol]on 32-62-0682Dmhdinkbybi (Bld) [#/Vol]Lymphocytes [#/volume] in Blood by Automated count1.2-3.8[facility] CampusLymphocytes/100 WBC Auto (Bld)on 07-11-2024 Lymphocytes/100 WBC (Bld)Lymphocytes/100 leukocytes in Blood by Automated count 20.5-60.0[facility] Auto (RBC) [Entitic mass]on 62-04-0983PGT (RBC) [Entitic mass]MCH [Entitic mass] by Automated count26.7-34.0 [facility] CampusMC Auto (RBC) [Mass/Vol]on 74-49-6552HQCY (RBC) [Mass/Vol]MCHC [Mass/volume] by Automated count29.9-35.2FMercy Health St. Elizabeth [facility]stown HospitalMCV Auto (RBC) [Entitic vol]on 32-95-4221DZE (RBC) [Entitic vol] MCV [Entitic volume] by Automated count81.0-99.0[facility] CampusMonocytes Auto (Bld) [#/Vol]on 97-77-7992Duwwtjmow (Bld) [#/Vol]Automated blood monocyte count0.3-0.8[facility] CampusMonocytes/100 WBC Auto (Bld)on 63-70-9886Vfvvvwshc/100 WBC (Bld)Automated monocyte %1.7-12.0 [facility] CampusNeutrophils Auto (Bld) [#/Vol]on 07-11-2024 Neutrophils (Bld) [#/Vol]Neutrophils [#/volume] in Blood by Automated count 1.4-6.5FMercy Health St. [facility] HospitalNeutrophils/100 WBC Auto (Bld)on 05-17-1035Mnzcjkaxqex/100 WBC (Bld)Automated neutrophil %43.0-75.0[facility] CampusNo Panel Informationon 56-78-3047Fgeuqgqfcpo # (Auto)0.2 10 3/uL0.0-0.7FMercy Health St. Elizabeth [facility] HospitalFolate15.10 ng/mL8.60-58.90 [facility] CampusImmature Granulocyte # (Auto)0.01 10 3/uL 0.00-0.03[facility] CampusVitamin B12 Level>2000 pg/mLAbnormal 232-1245[facility] CampusComment on above:Performed at: [facility] [employer] [facility] [id number] Director: Selwyn Daniel PhD, Phone: [phone] mean volume Auto (Bld) [Entitic vol]on 97-83-4096Klcgwsow mean volume (Bld) [Entitic vol]Platelet mean volume [Entitic volume] in Blood by Automated countLow9.5-13.5FMercy Health St. [facility] Hospital Platelets Auto (Bld) [#/Vol]on 08-46-8521Thtidpodb (Bld) [#/Vol]Platelets [#/volume] in Blood by Automated -505RgmrnrnnuSum[facility] Health [facility] Campus RBC Auto (Bld) [#/Vol]on 44-80-9896MYM (Bld) [#/Vol]Erythrocytes [#/volume] in Blood by Automated countLow4.20-5.40[facility] Hospitalerum or plasma albumin/globulin mass ratioon 28-54-3492Jwtgeoc/Globulin [Mass ratio] Serum or plasma albumin/globulin mass ratioSumma Health [facility] Campus Serum or plasma anion gap determinationon 26-90-0142Flrfs gap [Moles/Vol]Serum or plasma anion gap determinationOhioHealth Berger Hospitalerum or plasma total cholesterol/high density lipoprotein (HDL) cholesterol mass josué 74-04-2488Nzhegfvkyqv.total/Cholesterol in HDL [Mass ratio]Serum or plasma total cholesterol/high density lipoprotein (HDL) cholesterol mass ratSumma Health Akron CampusComment on above:3.3 - 4.4 LOW RISK4.4 - 7.1 AVERAGE RISK7.1 - 11.0 MODERATE RISK>11.0 HIGH RISKLaboratory - Chemistry and Chemistry - challengeon 73-03-1781Fjiebqxbz Ql (U)[facility] HospitalGlucose (U) [Mass/Vol]NegativeSumma Health Akron CampusKetones Ql (U)[facility] HospitalpH (U)6.5 [pH][facility] Hospitalpecific gravity (U) [Rel density]1.015[facility] CampusUrobilinogen (U) [Mass/Vol]0.2 mg/dLSumma Health [facility] Campus Laboratory - Specimen informationon 13-14-8884Lpjvofnlci (U)cloudySumma Health Akron CampusColor (U)yellowSumma Health [facility] Campus Laboratory - Urinalysison 81-08-0562Hfqlgmlej esterase Test strip Ql (U)Moderate [facility] CampusNitrite Ql (U)NegativeSumma Health Akron CampusProtein Ql (U)30[facility] CampusNo Panel Informationon 69-12-8817Spfuj Occult BloodlargeSum[facility] Health [facility] Campus XR Hip - right 3 Viewson 56-54-6526Llemivn Result: May 31, 2024 x-rays AP and lateral of the right hip demonstrate a Press-Fit hip replacement in good position alignment without signs of loosening or failure. Impression: Stable appearance of right total hip replacement Reinaldo Suazo D.O.[facility]ty HospitalRadiology Study observation (narrative)[facility] 12 Leadon 26-99-6460NsxcnwnxvdHolmes County [facility]omerene [facility] Hospital Work Phone: no Panel Informationon 33-79-4215WabtbGonzález Suazo DO 05/10/2024 5:02 PM Trigger Point Injection (CPT 95620 or 66727): right gluteus willian on 05/10/2024 1:50 PM Indications: pain Details: 21 G needle Medications: 40 mg methylPREDNISolone acetate 40 MG/ML Outcome: tolerated well, no immediate complications Procedure, treatment alternatives, risks and benefits explained, specific risks discussed. [facility] HospitalNo Panel Informationon 15-30-8670AkhnvDevin Birmingham NP 04/29/2024 4:13 PM Trigger Point Injection (CP[place] 30045 [place] 24620): right gluteus willian on 04/29/2024 4:11 PM Indications: pain Details: 22 G needle Medications: 40 mg methylPREDNISolone acetate 40 MG/ML Site cleaned with isopropyl alcohol. Procedure, treatment alternatives, risks and benefits explained, specific risks discussed. Consent was given by the patient. [facility] HospitalLaboratory - Chemistry and Chemistry - challengeon 03-52-3724Fbdhscgap Ql (U)NegativeSumma Health Akron CampusGlucose (U) [Mass/Vol]NegativeSumma Health Akron CampusKetones Ql (U)1.005[facility] CampuspH (U)5.0 [pH][facility] Hospitalpecific gravity (U) [Rel density]1.010[facility] CampusUrobilinogen (U) [Mass/Vol]0.2 mg/dLSumma Health Akron CampusLaboratory - Specimen informationon 82-35-8600Lgbyumniif (U)cloudySumma Health [facility] Campus Color (U)yellowSumma Health Akron CampusLaboratory - Urinalysison 39-52-8472Apfdewolu esterase Test strip Ql (U)moderateSumma Health Akron CampusNitrite Ql (U)NegativeSumma Health Akron CampusProtein Ql (U) traceSumma Health Akron CampusNo Panel Informationon 67-74-4304Whtaa Occult Blood9.0[facility] CampusActivated partial thromboplastin time (aPTT) in platelet poor plasma by coagulation aon 64-34-1955kCZY Coag (PPP) [Time]26.5 s22.3-36.2FMercy Health St. [facility] HospitalBasophils Auto (Bld) [#/Vol]on 91-01-9819Oiuykwdgf (Bld) [#/Vol]0.0 10 3/uL0.0-0.1FMercy Health St. [facility] HospitalBasophils/100 WBC Auto (Bld)on 49-87-2544Vbzckwgsq/100 WBC (Bld) 0.6 %0.2-2.0[facility] CampusEosinophils/100 WBC Auto (Bld)on 52-56-6572Gbayiukhped/100 WBC (Bld)5.6 %0.9-7.0[facility] Erythrocyte distribution width Auto (RBC) [Ratio]on 88-66-1962Gnizvijnazm distribution width (RBC) [Ratio]13.7 %11.0-15.0[facility] Estimated glomerular filtration rate (GFR) non- Americanon 04-07-2024 GFR/1.73 sq M.predicted among non-blacks MDRD (S/P/Bld) [Vol rate/Area] mL/min/{1.73_m2}>=60[facility] CampusHematocrit Auto (Bld) [Volume fraction]on 90-63-3928Lqrazjukak (Bld) [Volume fraction]35.3 %Low 36.0-48.0[facility] CampusHemoglobin [Mass/volume] in Bloodon 38-54-0423Fwlauyktyz (Bld) [Mass/Vol]11.8 g/dLLow12.0-16.0[facility] CampusINR in Platelet poor plasma by Coagulation assayon 16-27-4230PJW Coag (PPP) [Relative time]0.96 {INR}[facility] CampusComment on above:DESIRED INR:2.0-3.0 CONDITIONS NOT LISTED BELOW2.5-3.5 FOR PROSTHETIC HEART VALVE REPLACEMENT2.5-3.5 RECURRENT THROMBOSISLaboratory - Chemistry and Chemistry - challengeon 48-14-5570Zylqpuo [Mass/Vol]8.9 mg/dL8.5-10.1FMercy Health St. [facility] HospitalChloride [Moles/Vol]106 mmol/Y70-279EsvpnqstvSumma Health Akron CampusCO2 [Moles/Vol]26.6 mmol/L21.0-32.0[facility] CampusCreatinine [Mass/Vol]0.81 mg/dL0.55-1.02[facility] GFR/1.73 sq M.predicted MDRD (S/P/Bld) [Vol rate/Area]mL/min/{1.73_m2}>=60 [facility] CampusGlucose [Mass/Vol]107 mg/hHTmdm04-826SpbhxpjgaSumma Health Akron CampusPotassium [Moles/Vol]4.1 mmol/L3.5-5.1FTwin City Hospitalodium [Moles/Vol]141 mmol/U207-379DraqsearwSumma Health Akron CampusUrea nitrogen [Mass/Vol]16.0 mg/dL7.0-18.0[facility] CampusUrea nitrogen/Creatinine [Mass ratio]19.8 mg/mgSumma Health Akron CampusLaboratory - Hematology and Cell countson 42-64-3996Lvbkblqw granulocytes/100 WBC (Bld)0.4 %0.0-0.5FMercy Health St. [facility] Leukocytes [#/volume] corrected for nucleated erythrocytes in Blood by Automated counon 75-13-3794LNE corrected for nucl RBC Auto (Bld) [#/Vol]5.0 10 3/uL 4.0-11.0[facility] CampusLymphocytes Auto (Bld) [#/Vol]on 49-47-8377Jafkckhdfzz (Bld) [#/Vol]1.5 10 3/uL1.2-3.8[facility] CampusLymphocytes/100 WBC Auto (Bld)on 42-29-3618Jyhipinfaxm/100 WBC (Bld)29.5 % 20.5-60.0[facility] HospitalH Auto (RBC) [Entitic mass]on 49-03-0759XKV (RBC) [Entitic mass]31.7 pg26.7-34.0[facility] HospitalHC Auto (RBC) [Mass/Vol]on 12-44-0390FYIR (RBC) [Mass/Vol]33.4 g/dL 29.9-35.2FMercy Health St. Elizabeth [facility] HospitalMCV Auto (RBC) [Entitic vol]on 16-64-0339SMP (RBC) [Entitic vol]94.9 fL81.0-99.0[facility] CampusMonocytes Auto (Bld) [#/Vol]on 25-58-1526Yycfrbmzx (Bld) [#/Vol]0.5 10 3/uL0.3-0.8[facility] CampusMonocytes/100 WBC Auto (Bld)on 80-45-7715Tuqqwtvwp/100 WBC (Bld)10.2 %1.7-12.0[facility] Neutrophils Auto (Bld) [#/Vol]on 34-02-5002Maasrskcswb (Bld) [#/Vol]2.7 10 3/uL 1.4-6.5FMercy Health St. [facility] HospitalNeutrophils/100 WBC Auto (Bld)on 68-29-7217Tkhefyjzskk/100 WBC (Bld)53.7 %43.0-75.0[facility] CampusNo Panel Informationon 03-10-7617Chzhydhbdiz # (Auto)0.3 10 3/uL0.0-0.7 [facility] CampusImmature Granulocyte # (Auto)0.02 10 3/uL 0.00-0.03[facility] CampusPlatelet mean volume Auto (Bld) [Entitic vol]on 96-82-7702Tkxisnme mean volume (Bld) [Entitic vol]9.7 fL9.5-13.5 [facility] CampusPlatelets Auto (Bld) [#/Vol]on 04-07-2024 Platelets (Bld) [#/Vol]158 10 3/iK643-806WxsprmxdwSumma Health [facility] Campus Prothrombin time (PT)on 31-48-8491SB Coag (PPP) [Time]10.2 s9.0-11.6FMercy Health St. [facility] HospitalRBC Auto (Bld) [#/Vol]on 96-02-5531GJQ (Bld) [#/Vol]3.72 10 6/uLLow4.20-5.40[facility] Hospitalerum or plasma anion gap determinationon 52-21-0115Xqfvw gap [Moles/Vol]12.5 [address]FMer[address] Elizabeth [facility] HospitalAmbulatory Visit Summaryon 42-90-3132Mnexgptlya Visit Summary Ambulatory Visit Summary ATIYA JHA :1940 Visit Date:03/01/2024 Ambulatory Visit Instructions Your Diagnosis Urethral polyp Cystocele with rectocele Uterine prolapse Urge incontinence History of UTI Anticoagulated Your Care Team Attending Physician - Jerson STREETER MD Primary Care Physician - IVAN BARRETO DO [...] Follow Up with SYL SAMS, Jerson Santiago, URL When: Where: [facility] [address] , [place] [address]- Medications What How Much When Instructions Unchanged [...] tablet) By Mouth Every day Contact prescribing physicianif questions or concerns Unchanged ticagrelor (Brilinta (ticagrelor) [...] opening of your vag (more content not included)...NormalFisher Thomas B. Finan CenterUrology Office/Clinic Noteon 30-46-7549Tyqkzfc Office/Clinic NoteUrology Office/Clinic Note Chief Complaint Cysto/Pelvic exam HPI [...] UA small blood [4] 6. Anticoagulated (Z79.01: [facility] (current) use of anticoagulants) Pt recently had IA with heart stents. She finished taking Brillinta at the end of January. She is taking daily baby ASA. [5] Follow-up With When Contact Information SYL SAMS, Jerson Santiago, URL [facility] [address] , [place] [address]- Additional Instructions: schedule excision of urethral polyp [...] 25 mg Tab Mi (more content not included)...[facility] CenterComment on above:Result Comment: Electronically Signed By: Jerson STREETER MD\.br\Date and Time Signed: 03/01/24 14:50 EDT\.br\Electronically Co-Signed By: Romelia Candelario\.br\Date and Time Co-Signed: 03/01/24 14:46 EDTUrine culture routine Ordered By: Jordan Wisdom on 16-54-0252Lpcbvsme identified Cx Nom (U)No Growth 2 DaysSumma Health Akron CampusAmbulatory Visit Summaryon 02-08-2024 Ambulatory Visit SummaryAmbulatory Visit Summary ATIYA JHA :1940 Visit Date:02/08/2024 Ambulatory Visit Instructions Your Diagnosis Cystocele with rectocele Uterine prolapse Urinary incontinence Urethral caruncle History of UTI Anticoagulated Rectocele Your Care Team Attending Physician - Allison MALONE, Antonina Majano Primary Care Physician - BALL DO, IVAN This Is Your Medications List Contact prescribing [...] SYL SAMS, ELIZABETH Lara When: Comments: our law enforcement director will be calling you to schedule cysto Where: [address] [place] [address]- Medications What How Much When Instructions Unchanged [...] and standing up. Your health care pr (morecontent not included)...NormalGerman HospitalUrology Office/Clinic Noteon 70-73-0818Qixioyv Office/Clinic NoteUrology Office/Clinic Note Chief Complaint new patient [facility] Staff 83 year old female here for [...] Skin: No rashes or suspicious lesions Assessment/Plan FRAMER referred by Dr. Wisdom. Pt is here today with her daughter, Cheyenne. Kavya. Cystocele with rectocele (N81.10: Cystocele, unspecified) 01/29/24 [...] E&M of New Patient Moderate 45-59 Min 70119 Urology Procedure Order 2. Uterine prolapse (N81.4: Uterovaginal prolapse, unspecified) 01/29/[address] Wisdom - Grade 1 -See #1 Ordered: E&M of New Patient Moderate 45-59 Min 50718 Urology Procedure Order 3. Urinary incontinence (R32: Unspecified urinary incontinence) BBSQ 28 Pt reports urge incontinence which has worsened over the last year. She is using about 2-3 pads perday. -See #1 Ordered: E&M of New Patient Moderate 45-59 Min 29537 Urnls Dip Stick Auto w/o Microscopy POC 51473 Urology Procedure Order 4. Urethral caruncle (N36.2: [...] E&M of New Patient Moderate 45-59 Min 08455 Urology Procedure Order 5. History of UTI [...] started patient on Keflex QID x10 days butdid not advise patient that she was sending [...] our office for an (more content not included)...Normal German HospitalComment on above:Result Comment: Electronically Signed By: Antonina Shelton\.tammy\Date and Time Signed: 02/08/24 11:51 EDT Laboratory - Chemistry and Chemistry - challengeon 95-92-5601Mzfzhntwa Ql (U) NegativeSumma Health Akron CampusGlucose (U) [Mass/Vol]NegativeSumma Health Akron CampusKetones Ql (U)NegativeSumma Health [facility] Campus pH (U)5 [pH][facility] Hospitalpecific gravity (U) [Rel density] 1.005[facility] CampusUrobilinogen (U) [Mass/Vol]0.2 mg/dL [facility] CampusLaboratory - Specimen informationon 01-29-2024 Appearance (U)cloudySumma Health Akron CampusColor (U)lightyellow [facility] CampusLaboratory - Urinalysison 08-78-9584Glsofsybv esterase Test strip Ql (U)+++[facility] CampusNitrite Ql (U) PositiveSumma Health Akron CampusProtein Ql (U)NegativeSumma Health Akron CampusNo Panel Informationon 21-93-3637Bdwdk Occult Blood+++ [facility] CampusActivated partial thromboplastin time (aPTT) in platelet poor plasma by coagulation aOrdered By: Alexei Stone on 45-86-8070iEBO Coag (PPP) [Time]35.0 s25.1-36.5FMercy Health St. Elizabeth Youngstown HospitalComment on above:A hematocrit value greater than 55% may lead to inaccurate results in coagulation testing. Patientshaving hematocrit values >55% require a special collection tube for coagulation studies. Please contact the laboratory at [phone] for redraw instructions.Alanine aminotransferase [Enzymatic activity/volume] in Serum or PlasmaOrdered By: Alexei Stone on 02-85-2816RNO [Catalytic activity/Vol]22 U/L7-52[facility] CampusAlbumin [Mass/volume] in Serum or Plasma by Bromocresol green (BCG) dye binding metho Ordered By: Alexei Stone on 79-72-5432Vhbacqi BCG dye [Mass/Vol]4.1 g/dL3.5-5.7 [facility] CampusAlkaline phosphatase [Enzymatic activity/volume] in Serum or PlasmaOrdered By: Alexei Stone on 42-49-5793EIU [Catalytic activity/Vol]50 U/H96-146OhrkdzccrSumma Health [facility] CampusAspartate aminotransferase [Enzymatic activity/volume] in Serum or PlasmaOrdered By: Alexei Stone on 66-13-4660HQH [Catalytic activity/Vol]18 U/Y30-05BwsxkenivSumma Health [facility] CampusBasophils Auto (Bld) [#/Vol]Ordered By: Alexei Stone on 12-23-2023 Basophils (Bld) [#/Vol]0.0 10*3/uL0.0-0.2FMercy Health [facility] Basophils/100 WBC Auto (Bld)Ordered By: Alexei Stone on 85-83-2831Pgcswktdq/100 WBC (Bld)0.5 %.[facility] CampusBilirubin Test strip Ql (U) Ordered By: Alexei Stone on 48-51-4078Krxazvkkh Ql (U)NegativeNegativeSumma Health [facility] CampusBilirubin.direct [Mass/volume] in Serum or PlasmaOrdered By: Alexei Stone on 81-22-7961Fwstpafas.direct [Mass/Vol]0.20 mg/dLHigh0.03-0.18 [facility] CampusBilirubin.total [Mass/volume] in Serum or PlasmaOrdered By: Alexei Stone on 03-48-8444Rgjsrkpcl [Mass/Vol]1.1 mg/dLHigh 0.3-1.0[facility] CampusCalcium [Mass/volume] in Serum or Plasma Ordered By: Alexei Stone on 78-43-4975Egfqytj [Mass/Vol]9.6 mg/dL8.6-10.3 [facility] CampusCarbon dioxide, total [Moles/volume] in Serum or PlasmaOrdered By: Alexei Stone on 30-89-7187RZ1 [Moles/Vol]24.8 mmol/L 21.0-31.0[facility] CampusChloride [Moles/volume] in Serum or PlasmaOrdered By: Alexei Stone on 23-28-2278Zioubcvm [Moles/Vol]108 mmol/LHigh 98-107[facility] CampusColor Auto (U)Ordered By: Alexei Stone on 79-81-3342Sswtl (U)YellowYellowSumma Health [facility]ron CampusCreatine kinase [Enzymatic activity/volume] in Serum or PlasmaOrdered By: Alexei Stone on 02-02-9539WL [Catalytic activity/Vol]99 U/H90-980GvoykutfiSumma Health Akron CampusCreatinine [Mass/volume] in Serum or PlasmaOrdered By: Alexei Stone on 06-99-2896Wemxwejgqu [Mass/Vol]0.83 mg/dL0.60-1.20[facility] CampusEosinophils Auto (Bld) [#/Vol]Ordered By: Alexei Stone on 12-23-2023 Eosinophils (Bld) [#/Vol]0.3 10*3/uL0.0-0.45[facility] Eosinophils/100 WBC Auto (Bld)Ordered By: Alexei Stone on 12-23-2023 Eosinophils/100 WBC (Bld)4.1 %.[facility] CampusErythrocyte distribution width Auto (RBC) [Ratio]Ordered By: Alexei Stone on 12-23-2023 Erythrocyte distribution width (RBC) [Ratio]14.8 %11.9-15.3FMercy Health St. [facility] HospitalGlobulin Calc (S) [Mass/Vol]Ordered By: Alexei Stone on 12-23-2023 Globulin (S) [Mass/Vol]2.5 g/dLSumma Health Akron CampusGlucose [Mass/volume] in Serum or PlasmaOrdered By: Alexei Stone on 08-79-6289Oesvdtq [Mass/Vol]104 mg/dCTtvg34-661LokxcaefpSumma Health [facility]ron CampusComment on above: ADA recommended reference rangeRandom Glucose Reference Range is dependent on time and content of last meal. Glucose of more than 200 mg/dL in a nonstressed, ambulatory subject supports the diagnosisof Diabetes Mellitus.Hematocrit Auto (Bld) [Volume fraction]Ordered By: Alexei Stone on 01-98-4106Nypozeujjj (Bld) [Volume fraction]31.8 %Low34.0-46.4FMercy Health St. [facility] HospitalHemoglobin [Mass/volume] in BloodOrdered By: Alexei Stone on 47-57-0641Vktphljswy (Bld) [Mass/Vol]10.9 g/dLLow11.8-15.4FMercy Health St. Elizabeth [facility] HospitalINR in Platelet poor plasma by Coagulation assayOrdered By: Alexei Stone on 03-73-0267TJZ Coag (PPP) [Relative time]1.0 {INR}[facility] CampusComment on above: INR Therapeutic Range A) Pre- and Peroperative [...] By: Alexei Stone on 12-23-2023 Ketones (U) [Mass/Vol]NegativeNegativeSumma Health [facility] Campus Leukocytes [#/volume] corrected for nucleated erythrocytes in Blood by Automated counOrdered By: Alexei Stone on 82-31-1799SNH corrected for nucl RBC Auto (Bld) [#/Vol]6.2 10*3/uL3.8-11.6FMercy Health St. [facility] HospitalLymphocytes Auto (Bld) [#/Vol]Ordered By: Alexei Stone on 91-23-9742Gepckcesfmi (Bld) [#/Vol]1.0 10*3/uL1.00-4.8[facility] CampusLymphocytes/100 WBC Auto (Bld) Ordered By: Alexei Stone on 84-19-6449Pndvvkigemk/100 WBC (Bld)16.2 %.[facility] CampusMCH Auto (RBC) [Entitic mass]Ordered By: Alexei Stone on 88-31-8277IVP (RBC) [Entitic mass]32.2 pg24.7-34.3FMercy Health St. [facility] HospitalMCHC Auto (RBC) [Mass/Vol]Ordered By: Alexei Stone on 82-33-6140HLJC (RBC) [Mass/Vol]34.2 g/dL32.0-35.0[facility] CampusMCV Auto (RBC) [Entitic vol]Ordered By: Alexei Stone on 00-96-7973KHV (RBC) [Entitic vol]94.2 fL 80-100[facility] CampusMonocyte distribution width [Entitic volume] in Blood by AutomatedOrdered By: Alexei Stone on 42-05-6350Obmgsxdh distribution width Auto (Bld) [Entitic vol]18.01 %0.00-20.00[facility] CampusMonocytes Auto (Bld) [#/Vol]Ordered By: Alexei Stone on 12-23-2023 Monocytes (Bld) [#/Vol]0.6 10*3/uL0.0-0.8[facility] Monocytes/100 WBC Auto (Bld)Ordered By: Alexei Stone on 50-80-2202Zofbcwalg/100 WBC (Bld)10.3 %.[facility] CampusNatriuretic peptide B [Mass/Vol]Ordered By: Alexei Stone on 72-95-6414Cgqkbjsryxs peptide B (Bld) [Mass/Vol]495.0 pg/mLHigh5-100[facility] CampusNeutrophils Auto (Bld) [#/Vol]Ordered By: Alexei Stone on 44-84-1279Ipbghwjelyo (Bld) [#/Vol]4.2 10*3/uL1.8-7.7FMercy Health St. [facility] HospitalNeutrophils/100 WBC Auto (Bld) Ordered By: Alexei Stone on 25-51-2526Slfuswbvgjm/100 WBC (Bld)68.9 %.[facility] CampusNitrite Test strip Ql (U)Ordered By: Alexei Stone on 95-56-2966Vvkkzre Ql (U)NegativeNegativeSumma Health Akron CampusNo Panel InformationOrdered By: Alexei Stone on 59-94-8495Nltmqtqvb GFR (CKD-EPI)> 60.0 mL/MinSumma Health Akron CampusPharmacy Creatinine Clearance (Chem 50.37[facility] CampusNucleated erythrocytes [Presence] in Blood by Automated countOrdered By: Alexei Stone on 26-29-7471Gggjavznq RBC Auto Ql (Bld)0.1 /100{WBC}0-0.5FMercy Health St. [facility] HospitalPlatelet mean volume Auto (Bld) [Entitic vol]Ordered By: Alexei Stone on 64-21-5004Qhqjzxew mean volume (Bld) [Entitic vol]7.2 fL6.3-10.7FMercy Health St. [facility] Platelets Auto (Bld) [#/Vol]Ordered By: Alexei Stone on 72-54-5517Rgzmgeutr (Bld) [#/Vol]199 10*3/bU988-776LrkizxrjlSumma Health [facility] CampusPotassium [Moles/volume] in Serum or PlasmaOrdered By: Alexei Stone on 90-42-6588Vdvraxkvq [Moles/Vol]4.0 mmol/L3.5-5.1FMercy Health St. [facility] HospitalProtein Auto test strip (U) [Mass/Vol]Ordered By: Alexei Stone on 11-35-6641Ouzejxc (U) [Mass/Vol] NegativeNegativeSumma Health Akron CampusProtein [Mass/volume] in Serum or PlasmaOrdered By: Alexei Stone on 53-49-1220Imkzunb [Mass/Vol]6.6 g/dL6.4-8.9 [facility] CampusProthrombin time (PT)Ordered By: Alexei Stone on 03-90-5656ZI Coag (PPP) [Time]11.7 s9.0-12.9[facility] Comment on above:A hematocrit value greater than 55% may lead to inaccurate results in coagulation testing. Patientshaving hematocrit values >55% require a special collection tube for coagulation studies. Please contact the laboratory at [phone] for redraw instructions.RBC Auto (Bld) [#/Vol]Ordered By: Alexei Stone on 76-96-2233KSV (Bld) [#/Vol]3.38 10*6/uLLow3.60-5.00[facility] Hospitalerum or plasma albumin/globulin mass ratioOrdered By: Alexei Stone on 46-88-7885Jofirix/Globulin [Mass ratio]1.6 {ratio}[facility] Hospitalerum or plasma anion gap determinationOrdered By: Alexei Stone on 32-02-4889Tlhhq gap [Moles/Vol]13.2 mmol/L6.0-15.0[facility] Hospitalerum or plasma non-glucuronidated bilirubin measurement (mass/volume) Ordered By: Alexei Stone on 87-13-1634Mnceimgzd.indirect [Mass/Vol]0.9 mg/dL [facility] Hospitalodium [Moles/volume] in Serum or PlasmaOrdered By: Alexei Stone on 07-57-9540Wiyoyl [Moles/Vol]142 mmol/T926-285XjuslbhmtOhioHealth Berger Hospitalpecific gravity Auto test strip (U) [Rel density]Ordered By: Alexei Stone on 66-47-5313Mduxzmko gravity (U) [Rel density]1.0101.001-1.030 [facility] CampusTroponin I.cardiac [Mass/volume] in Serum or Plasma by Detection limit <= 0.01 ng/Ordered By: Alexei Stone on 12-23-2023 Troponin I.cardiac DL <= 0.01 ng/mL [Mass/Vol]10.0 pg/mL0.0-15.0[facility] CampusUrea nitrogen [Mass/volume] in Serum or PlasmaOrdered By: Alexei Stone 64-00-4615Ejyk nitrogen [Mass/Vol]15 mg/dL7-25[facility] CampusUrine clarity by refractometry automatedOrdered By: Alexei Stone on 75-27-5422Wgwjegp Refractometry automated (U)ClearClearFMercy Health St. Elizabeth [facility] HospitalUrine glucose measurement by automated test strip (mass/volume) Ordered By: Alexei Stone on 39-78-6651Tpxwfue Auto test strip (U) [Mass/Vol] Normal mg/dLNormalSumma Health [facility]ron CampusUrine hemoglobin detection by automated test stripOrdered By: Alexei Stone on 88-47-4278Kmatebnggq Auto test strip Ql (U)NegativeNegativeSumma Health [facility] CampusUrine leukocyte esterase detection by automated test stripOrdered By: Alexei Stone on 12-23-2023 Leukocyte esterase Auto test strip Ql (U)NegativeNegHocking Valley Community HospitalUrobilinogen Auto test strip (U) [Mass/Vol]Ordered By: Alexei Stone on 65-91-4820Quprlhbudzic (U) [Mass/Vol]Normal mg/dLNormMercy Health St. [facility] HospitalWBC Auto (Bld) [#/Vol]Ordered By: Alexei Stone on 70-85-6026SWT (Bld) [#/Vol]6.2 10*3/uL3.8-11.6FMercy Health St. [facility] HospitalpH Auto test strip (U)Ordered By: Alexei Stone on 23-15-5460qZ (U)6.0 [pH]5.0-9.0[facility] CampusAutomated urine specific gravity by refractometryon 42-29-2993Wxadvrgi gravity Refractometry automated (U) [Rel density]1.010 1.005-1.025[facility] CampusBilirubin Auto test strip (U) [Mass/Vol]on 74-30-6850Gfphksvyr (U) [Mass/Vol]NegativeNEGSalem Regional Medical CenterColor Auto (U)on 14-76-4796Gshpu (U)YELLOWYELLOWSumma Health [facility] CampusGlucose [Mass/volume] in Urine by Test stripon 79-94-1726Rwbdgac Test strip (U) [Mass/Vol]NegativeNEGSalem Regional Medical CenterKetones Auto test strip (U) [Mass/Vol]on 81-84-0782Fpzubgh (U) [Mass/Vol]NegativeNEGSalem Regional Medical CenterNo Panel Information on 32-69-9310Ooish Microscopic ReviewNOSumma Health [facility] CampusProtein Auto test strip (U) [Mass/Vol]on 26-83-7317Eyaeyzf (U) [Mass/Vol]Negative NEG/TRACEOhioHealth Berger Hospitalpecific gravity Auto test strip (U) [Rel density]on 67-07-3618Hwfnafxd gravity (U) [Rel density]CLEARCLEARFMercy Health St. Elizabeth [facility] HospitalUrine hemoglobin detection by automated test stripon 16-79-4402Ojlcskjzqa Auto test strip Ql (U)NegativeNEGSalem Regional Medical CenterUrine nitrite detection by automated test stripon 11-30-2023 Nitrite Auto test strip Ql (U)NegativeNEGATIVESumma Health [facility] Campus Urobilinogen Auto test strip (U) [Mass/Vol]on 15-02-8904Pcguwkcijmtz Qn (U)1.0 {Heavenly'U}/dL0.2-1.0[facility] CampuspH Auto test strip (U)on 92-41-5237vB (U)6.0 [pH]5.0-9.0[facility] CampusBasophils Auto (Bld) [#/Vol]on 12-33-4639Onmwsxgql (Bld) [#/Vol]0.0 10 3/uL0.0-0.1FMercy Health St. [facility] HospitalBasophils/100 WBC Auto (Bld)on 73-14-0491Ykpmzswxi/100 WBC (Bld)0.3 %0.2-2.0[facility] CampusEosinophils/100 WBC Auto (Bld)on 52-42-1055Ywykmfpuubu/100 WBC (Bld)4.1 %0.9-7.0[facility] CampusErythrocyte distribution width Auto (RBC) [Ratio]on 11-25-2023 Erythrocyte distribution width (RBC) [Ratio]13.6 %11.0-15.0[facility] CampusEstimated glomerular filtration rate (GFR) non- Americanon 56-00-3815HWI/1.73 sq M.predicted among non-blacks MDRD (S/P/Bld) [Vol rate/Area]40 mL/min/{1.73_m2}Low>=60[facility] CampusHematocrit Auto (Bld) [Volume fraction]on 66-89-3769Mjhapgyayg (Bld) [Volume fraction]34.3 %Low36.0-48.0[facility] CampusHemoglobin [Mass/volume] in Blood on 86-99-0356Fgmmcyuytz (Bld) [Mass/Vol]11.3 g/dLLow12.0-16.0[facility] CampusLaboratory - Chemistry and Chemistry - challengeon 11-25-2023 Calcium [Mass/Vol]9.3 mg/dL8.5-10.1FMercy Health St. [facility] HospitalChloride [Moles/Vol]102 mmol/T28-966WlnthqmzuSumma Health [facility] CampusCO2 [Moles/Vol]27.9 mmol/L21.0-32.0[facility] CampusCreatinine [Mass/Vol]1.26 mg/dL High0.55-1.02[facility] CampusGFR/1.73 sq M.predicted MDRD (S/P/Bld) [Vol rate/Area]49 mL/min/{1.73_m2}Low>=60[facility] CampusGlucose [Mass/Vol]101 mg/xR92-313JhuvusfdpSumma Health [facility] Campus Potassium [Moles/Vol]4.2 mmol/L3.5-5.1FTwin City Hospitalodium [Moles/Vol]140 mmol/Q157-321MpmrwspcfSumma Health [facility] CampusUrea nitrogen [Mass/Vol]21.0 mg/dLHigh7.0-18.0[facility] CampusUrea nitrogen/Creatinine [Mass ratio]16.7 mg/mgSumma Health [facility] Campus Laboratory - Hematology and Cell countson 70-98-0240Cqgqaolw granulocytes/100 WBC (Bld)0.2 %0.0-0.5FMercy Health St. [facility] HospitalLeukocytes [#/volume] corrected for nucleated erythrocytes in Blood by Automated counon 16-55-0395ODP corrected for nucl RBC Auto (Bld) [#/Vol]6.1 10 3/uL4.0-11.0[facility] CampusLymphocytes Auto (Bld) [#/Vol]on 23-99-7316Vmehoxhcalv (Bld) [#/Vol]1.8 10 3/uL1.2-3.8[facility] CampusLymphocytes/100 WBC Auto (Bld)on 34-12-3363Ynklosqsrgz/100 WBC (Bld)29.7 %20.5-60.0[facility] CampusMCH Auto (RBC) [Entitic mass]on 58-74-6328YMY (RBC) [Entitic mass]31.1 pg26.7-34.0[facility] CampusMCHC Auto (RBC) [Mass/Vol]on 97-72-9556TUJE (RBC) [Mass/Vol]32.9 g/dL29.9-35.2FMercy Health St. [facility] HospitalMCV Auto (RBC) [Entitic vol]on 24-19-0285CAS (RBC) [Entitic vol] 94.5 fL81.0-99.0[facility] CampusMonocytes Auto (Bld) [#/Vol]on 39-96-8485Fwtqmnlkq (Bld) [#/Vol]0.6 10 3/uL0.3-0.8[facility] CampusMonocytes/100 WBC Auto (Bld)on 46-79-0050Yefuovrxb/100 WBC (Bld)9.2 % 1.7-12.0[facility] CampusNeutrophils Auto (Bld) [#/Vol]on 88-20-8177Orfqlohcnks (Bld) [#/Vol]3.4 10 3/uL1.4-6.5FMercy Health St. [facility] HospitalNeutrophils/100 WBC Auto (Bld)on 09-84-9542Vhnttrkviax/100 WBC (Bld)56.5 % 43.0-75.0[facility] CampusNo Panel Informationon 11-25-2023 Eosinophils # (Auto)0.3 10 3/uL0.0-0.7FMercy Health St. [facility] HospitalImmature Granulocyte # (Auto)0.01 10 3/uL0.00-0.03[facility] Platelet mean volume Auto (Bld) [Entitic vol]on 21-74-1071Iljpzgpr mean volume (Bld) [Entitic vol]9.7 fL9.5-13.5FMercy Health St. [facility] HospitalPlatelets Auto (Bld) [#/Vol]on 60-47-4613Bpyiskokg (Bld) [#/Vol]217 10 3/zX361-187KlkwvtcvuSumma Health [facility] CampusRBC Auto (Bld) [#/Vol]on 30-91-7670MPK (Bld) [#/Vol]3.63 10 6/uLLow4.20-5.40[facility] Hospitalerum or plasma anion gap determinationon 95-67-7791Xxsjz gap [Moles/Vol]14.3 mmol/LFMercy Health St. [facility] HospitalTroponin I.cardiac [Mass/volume] in Serum or Plasma by Detection limit <= 0.01 ng/Ordered By: Allan Townsend on 75-71-8577Jeebqoaa I.cardiac DL <= 0.01 ng/mL [Mass/Vol]88.9 pg/mLHigh0.0-15.0[facility] Comment on above:Critical Result : Called to and read back by: NGUYEN BERMUDEZ at: 11/19/2023 07:10:35 by:MLGActivated partial thromboplastin time (aPTT) in platelet poor plasma by coagulation aOrdered By: Allan Townsend on 14-34-6055kRQD Coag (PPP) [Time]31.6 s25.1-36.5FMercy Health St. Elizabeth [facility] HospitalComment on above:A hematocrit value greater than 55% may lead to inaccurate results in coagulation testing. Patientshaving hematocrit values >55% require a special collection tube for coagulation studies. Please contact the laboratory at [phone] for redraw instructions.Basophils Auto (Bld) [#/Vol]Ordered By: Allan Townsend on 14-55-5506Iexpxrtrz (Bld) [#/Vol]0.0 10*3/uL0.0-0.2FMercy Health St. [facility] HospitalBasophils/100 WBC Auto (Bld)Ordered By: Allan Townsend on 11-16-2023 Basophils/100 WBC (Bld)0.6 %.[facility] CampusCarbon dioxide, total [Moles/volume] in Serum or PlasmaOrdered By: Allan Townsend on 81-35-1341VX6 [Moles/Vol]27.8 mmol/L21.0-31.0[facility] CampusChloride [Moles/volume] in Serum or PlasmaOrdered By: Allan Townsend 76-85-6606Gibmscxy [Moles/Vol]103 mmol/J88-862ZkfraqzuxSumma Health Akron CampusCholesterol [Mass/volume] in Serum or PlasmaOrdered By: Allan Townsend 84-85-4604Nfxgmsozndc [Mass/Vol]143 mg/xB248-123CnaktczbeSumma Health Akron CampusComment on above:Chol less than 200 mg/dl low riskChol 201-239 mg/dl borderline riskChol 240 mg/dl and greater high riskCholesterol in LDL Calc [Mass/Vol]Ordered By: Allan Townsend on 34-15-0485Ztpaxucecpo in LDL [Mass/Vol]74 mg/dL0-100[facility] CampusComment on above:LDL ATP III CLASSIFICATIONLDL less than 100 mg/dL OptimalLDL 100-129 mg/dL Near or above pbdxohzOSL169-393 mg/dL Borderline highLDL 160-189 mg/dL HighLDL greater than 189 mg/dL Very highCholesterol in VLDL Calc [Mass/Vol]Ordered By: Allan Townsend on 63-24-6673Rgvxhbmsaku in VLDL [Mass/Vol]32 mg/dLSumma Health Akron CampusCreatinine [Mass/volume] in Serum or PlasmaOrdered By: Allan Townsend on 63-40-8583Hchpuedxzu [Mass/Vol]0.88 mg/dL0.60-1.20[facility] CampusEosinophils Auto (Bld) [#/Vol] Ordered By: Allan Townsend on 47-11-4862Osuxtnhfbaz (Bld) [#/Vol]0.2 10*3/uL0.0-0.45 [facility] CampusEosinophils/100 WBC Auto (Bld)Ordered By: Allan Townsend on 93-57-7373Xnizzufpvlc/100 WBC (Bld)3.4 %.[facility] CampusErythrocyte distribution width Auto (RBC) [Ratio]Ordered By: Allan Townsend on 27-24-9089Ewppyrtcmoi distribution width (RBC) [Ratio]14.5 %11.9-15.3FMercy Health St. [facility] HospitalHematocrit Auto (Bld) [Volume fraction]Ordered By: Allan Townsend on 70-58-9228Mmsixrtqfl (Bld) [Volume fraction]35.0 %34.0-46.4FMercy Health St. [facility] HospitalHemoglobin [Mass/volume] in BloodOrdered By: Allan Townsend on 01-12-9861Nakitkmpzc (Bld) [Mass/Vol]12.0 g/dL11.8-15.4FMercy Health St. [facility] HospitalINR in Platelet poor plasma by Coagulation assayOrdered By: Allan Townsend on 37-55-8504KGD Coag (PPP) [Relative time]1.0 {INR}[facility] CampusComment on above:INR Therapeutic Range A) Pre- and Peroperative OAT started two weeks before surgery. NOT HIP SURGERY: 1.5 - 2.5 HIP SURGERY: 2 - 3B) Primary and secondary prevention of venous THROMBOSIS: 2 - 3C) Active venous thrombosis, pulmonary embolismand prevention of recurrent venous thrombosis: 2 - 3D) Prevention of arterial thromboembolismincluding patients with mechanical heart valves: 3 - 4.5Leukocytes [#/volume] corrected for nucleated erythrocytes in Blood by Automated counOrdered By: Allan Townsend on 66-51-3864QAZ corrected for nucl RBC Auto (Bld) [#/Vol]5.4 10*3/uL3.8-11.6 [facility] CampusLymphocytes Auto (Bld) [#/Vol]Ordered By: Allan Townsend on 42-21-8189Apwgrqzjjtk (Bld) [#/Vol]1.5 10*3/uL1.00-4.8[facility] CampusLymphocytes/100 WBC Auto (Bld)Ordered By: Allan Townsend on 68-07-7031Omllctprmjo/100 WBC (Bld)28.5 %.[facility] Auto (RBC) [Entitic mass]Ordered By: Allan Townsend on 71-20-4979BET (RBC) [Entitic mass]31.6 pg24.7-34.3FTrinity Health System East CampusHC Auto (RBC) [Mass/Vol] Ordered By: Allan Townsend on 34-59-6501KKKR (RBC) [Mass/Vol]34.2 g/dL32.0-35.0 [facility] HospitalV Auto (RBC) [Entitic vol]Ordered By: Allan Townsend on 01-53-5869FDM (RBC) [Entitic vol]92.4 pS65-081KsqhqroyjSumma Health [facility]ron CampusMonocytes Auto (Bld) [#/Vol]Ordered By: Allan Townsend on 11-16-2023 Monocytes (Bld) [#/Vol]0.5 10*3/uL0.0-0.8[facility] Monocytes/100 WBC Auto (Bld)Ordered By: Allan Townsend on 84-12-7581Ajffrdied/100 WBC (Bld)9.6 %.[facility] CampusNeutrophils Auto (Bld) [#/Vol] Ordered By: Allan Townsend on 18-67-9321Qjjqcvwjocc (Bld) [#/Vol]3.1 10*3/uL1.8-7.7 [facility] CampusNeutrophils/100 WBC Auto (Bld)Ordered By: Allan Townsend on 38-98-8564Sgaclqywpqg/100 WBC (Bld)57.9 %.[facility] CampusNo Panel InformationOrdered By: Allan Townsend on 35-47-9466Kopsncwcf GFR (CKD-EPI)> 60.0 mL/MinSumma Health Akron CampusPharmacy Creatinine Clearance (ChemN/AFMercy Health St. [facility] HospitalNucleated erythrocytes [Presence] in Blood by Automated countOrdered By: Allan Townsend on 11-16-2023 Nucleated RBC Auto Ql (Bld)0.0 /100{WBC}0-0.5FMercy Health St. [facility] Platelet mean volume Auto (Bld) [Entitic vol]Ordered By: Allan Townsend on 11-16-2023 Platelet mean volume (Bld) [Entitic vol]7.7 fL6.3-10.7FMercy Health St. [facility] HospitalPlatelets Auto (Bld) [#/Vol]Ordered By: Allna Townsend on 98-23-1278Jpyqtrsno (Bld) [#/Vol]194 10*3/hA782-883HxftbjjtaSumma Health Akron CampusPotassium [Moles/volume] in Serum or PlasmaOrdered By: Allan Townsend on 93-72-1886Vxjxbpkch [Moles/Vol]3.8 mmol/L3.5-5.1FMercy Health St. Elizabeth [facility] HospitalProthrombin time (PT)Ordered By: Allan Townsend on 61-82-5736PZ Coag (PPP) [Time]11.1 s9.0-12.9 [facility] CampusComment on above:A hematocrit value greater than 55% may lead to inaccurate results in coagulation testing. Patientshaving hematocrit values >55% require a special collection tube for coagulation studies. Please contact the laboratory at [phone] for redraw instructions. RBC Auto (Bld) [#/Vol]Ordered By: Allan Townsend on 79-23-3201FOT (Bld) [#/Vol]3.78 10*6/uL3.60-5.00[facility] Hospitalerum or plasma anion gap determinationOrdered By: Allan Townsend on 87-34-4312Nfucq gap [Moles/Vol]10.0 mmol/L 6.0-15.0[facility] Hospitalerum or plasma high density lipoprotein (HDL) cholesterol measurementOrdered By: Allan Townsend on 11-16-2023 Cholesterol in HDL [Mass/Vol]36 mg/nB16-61VtyvpvwkzSumma Health [facility] Campus Comment on above:HDL CHOL ATP-III CLASSIFICATION Cardiovascular RiskHDL > or equal to 60 mg/dL LOWHDL < 40 mg/dL HIGHSerum or plasma total cholesterol/high density lipoprotein (HDL) cholesterol mass ratOrdered By: Allan Townsend on 47-77-3900Vpovlxkzfyn.total/Cholesterol in HDL [Mass ratio]4.0 {ratio}<5.0 [facility] Hospitalodium [Moles/volume] in Serum or PlasmaOrdered By: Allan Townsend on 66-07-7376Vtwevs [Moles/Vol]137 mmol/V225-298AzwgdxqowSumma Health Akron CampusTriglyceride [Mass/volume] in Serum or PlasmaOrdered By: Allan Townsend 93-14-9077Culoicuxmkne [Mass/Vol]163 mg/dLHigh0-149[facility] CampusComment on above:TRIG ATP III CLASSIFICATIONTRIG less than 150 mg/dL NormalTRIG 150-199 mg/dL Borderline highTRIG 200-500 mg/dL High TRIG greater than 500 mg/dL Very highStandard traceable to the Center for Disease Conrtrol and Prevention (CDC) test method.Urea nitrogen [Mass/volume] in Serum or PlasmaOrdered By: Allan Townsend on 81-16-2216Ltsv nitrogen [Mass/Vol]19 mg/dL7-25Sum[facility] Health [facility] CampusWBC Auto (Bld) [#/Vol]Ordered By: Allan Townsend on 20-15-8718WQB (Bld) [#/Vol]5.4 10*3/uL3.8-11.6FMercy Health St. Elizabeth Youngstown HospitalNM Heart Perfusion W stress and W radionuclide [...] Jamia Ndiaye 11/10/2023 12:04 PM Dictation workstation: [id number] By: Jamia Ndiaye, Alex Cartwright STUDY: MYOCARDIAL PERFUSION STRESS TEST WITH LEXISCAN Performing facility: [facility], [address] [place] [address], [address], [address] Provider: Geoffrey Santillan MD, FACC PCP: Dr. Nathalie Barreto Supervising provider: Chelsie Cedeno MD, FACC INDICATION: CAD; SOB; Chest tightness HISTORY: Gender: F; Age: 83 y/o ; Height: HT 165.1 cm cm; Weight: WT 70.761 kg kg. CAD; High Cholesterol; Previous IA; HTN; Chest Pain; SOB; Denies smoking. Cardiac catheterization on 2022. PTCA on 2022. COMPARISON: Previous nuclear testing completed [id number] at [facility]. ACCESSION NUMBER(S): [id number] ORDERING CLINICIAN: PINEDA SANTILLAN TECHNIQUE: ONE DAY [...] There were no evidence of attenuation artifact. Jamia Diane MD - 11/10/2023 Interpreted By: Jamia Ndiaye and Giannuzzi Michael STUDY: MYOCARDIAL PERFUSION STRESS TEST WITH LEXISCAN Performing facility: [facility], [address] [place] [address], [address], [address] Provider: Geoffrey Santillan MD, FACC PCP: Dr. Nathalie Barreto Supervising provider: Chelsie Cedeno MD, FACC INDICATION: CAD; SOB; Chest tightness HISTORY: Gender: F; Age: 83 y/o ; Height: HT 165.1 cm cm; Weight: WT 70.761 kg kg. CAD; High Cholesterol; Previous IA; HTN; Chest Pain; SOB; Denies smoking. Cardiac catheterization on 2022. PTCA on 2022. COMPARISON: Previous nuclear testing completed [id number] at [facility]. ACCESSION NUMBER(S): [id number] ORDERING CLINICIAN: PINEDA SANTILLAN TECHNIQUE: ONE DAY [...] Jamia Ndiaye 11/10/2023 12:04 PM Dictation workstation: [id number] [facility] Work Phone: Radiology Study observation (narrative)[facility] Work Phone: NM Heart Perfusion W stress and W radionuclide IV Ordered By: Jamia Ndiaye on 56-76-5488AoxwkotiskHolmes County [facility] Hospital Work Phone: Basophils Auto (Bld) [#/Vol]on 65-78-6821Qrxfrwrpj (Bld) [#/Vol]0.0 10 3/uL0.0-0.1FMercy Health St. [facility] HospitalBasophils/100 WBC Auto (Bld)on 16-40-4941Fqbxcodln/100 WBC (Bld)0.4 %0.2-2.0[facility] CampusEosinophils/100 WBC Auto (Bld)on 29-77-5384Psxfexcfmay/100 WBC (Bld)3.2 %0.9-7.0[facility] CampusErythrocyte distribution width Auto (RBC) [Ratio]on 46-47-9913Yvwapqjzyld distribution width (RBC) [Ratio]13.2 %11.0-15.0[facility] CampusEstimated glomerular filtration rate (GFR) non- Americanon 20-65-8642GAA/1.73 sq M.predicted among non-blacks MDRD (S/P/Bld) [Vol rate/Area]47 mL/min/{1.73_m2}>=60[facility] CampusGlobulin Calc (S) [Mass/Vol]on 34-23-7915Fyztfjcn (S) [Mass/Vol]3.2 g/dL [facility] CampusHematocrit Auto (Bld) [Volume fraction]on 25-21-6059Wspqqsbdmb (Bld) [Volume fraction]37.9 %36.0-48.0[facility] CampusHemoglobin [Mass/volume] in Bloodon 94-66-2157Bnwbwkmbyi (Bld) [Mass/Vol]12.4 g/dL12.0-16.0[facility] CampusIron binding capacity [Mass/volume] in Serum or Plasmaon 38-46-1667Hdyr binding capacity [Mass/Vol]318.0 ug/dL250.0-450.0[facility] CampusIron saturation [Mass Fraction] in Serum or Plasmaon 97-85-6914Ikmx saturation [Mass fraction] 36.2 %[facility] CampusLaboratory - Chemistry and Chemistry - challengeon 06-30-7193Nxvycin [Mass/Vol]4.1 g/dL3.4-5.0[facility] CampusALP [Catalytic activity/Vol]71 U/F44-097QdaltcsdqSumma Health Akron CampusALT [Catalytic activity/Vol]23 U/X63-59ZkdmwcqxgSumma Health [facility]ron Campus AST [Catalytic activity/Vol]15 U/B65-73PzxpymqmnSumma Health [facility]ron Campus Bilirubin [Mass/Vol]0.8 mg/dL0.2-1.0[facility] CampusCalcium [Mass/Vol]9.5 mg/dL8.5-10.1FMercy Health St. Elizabeth [facility] HospitalChloride [Moles/Vol] 98 mmol/D42-272GsopjyjocSumma Health Akron CampusCO2 [Moles/Vol]28.1 mmol/L 21.0-32.0[facility] CampusCobalamin (Vitamin B12) [Mass/Vol] 1997.0 pg/mL193.0-986.0[facility] CampusCreatinine [Mass/Vol] 1.10 mg/dL0.55-1.02[facility] CampusFerritin [Mass/Vol]136.0 ng/mL8.0-252.0[facility] CampusGFR/1.73 sq M.predicted MDRD (S/P/Bld) [Vol rate/Area]57 mL/min/{1.73_m2}>=60[facility] CampusGlucose [Mass/Vol]95 mg/rX20-767AsqzzsfnrSumma Health Akron CampusIron [Mass/Vol]115.0 ug/dL50.0-170.0[facility] CampusPotassium [Moles/Vol]3.7 mmol/L3.5-5.1FMercy Health St. Elizabeth [facility] HospitalProtein [Mass/Vol] 7.3 g/dL6.4-8.2FTwin City Hospitalodium [Moles/Vol]135 mmol/L 136-145[facility] CampusTSH Qn0.894 m[IU]/L0.358-3.740[facility] CampusUrea nitrogen [Mass/Vol]28.0 mg/dL7.0-18.0[facility] CampusUrea nitrogen/Creatinine [Mass ratio]25.5 mg/mgSumma Health Akron CampusLaboratory - Hematology and Cell countson 10-20-2023 Immature granulocytes/100 WBC (Bld)0.1 %0.0-0.5FMercy Health St. [facility] Hospital Leukocytes [#/volume] corrected for nucleated erythrocytes in Blood by Automated counon 88-59-7042ZYV corrected for nucl RBC Auto (Bld) [#/Vol]6.8 10 3/uL 4.0-11.0[facility] CampusLymphocytes Auto (Bld) [#/Vol]on 95-18-6809Tmeqlgnvjzl (Bld) [#/Vol]2.0 10 3/uL1.2-3.8[facility] CampusLymphocytes/100 WBC Auto (Bld)on 25-24-7901Pvgzdcuairn/100 WBC (Bld)29.4 % 20.5-60.0[facility] HospitalH Auto (RBC) [Entitic mass]on 72-27-6588EJW (RBC) [Entitic mass]30.7 pg26.7-34.0[facility] HospitalHC Auto (RBC) [Mass/Vol]on 53-78-7772AMFX (RBC) [Mass/Vol]32.7 g/dL 29.9-35.2FMercy Health St. Elizabeth [facility] HospitalMCV Auto (RBC) [Entitic vol]on 49-80-7805AAW (RBC) [Entitic vol]93.8 fL81.0-99.0[facility] CampusMonocytes Auto (Bld) [#/Vol]on 54-81-4527Grfforops (Bld) [#/Vol]0.7 10 3/uL0.3-0.8[facility] CampusMonocytes/100 WBC Auto (Bld)on 45-11-8497Qzxumbqfh/100 WBC (Bld)9.7 %1.7-12.0[facility] Neutrophils Auto (Bld) [#/Vol]on 11-42-2868Fzgrutytmpq (Bld) [#/Vol]3.9 10 3/uL 1.4-6.5FMercy Health St. [facility] HospitalNeutrophils/100 WBC Auto (Bld)on 46-76-1724Gzqawxdoapi/100 WBC (Bld)57.2 %43.0-75.0[facility] CampusNo Panel Informationon 72-22-0453Vsckxhamola # (Auto)0.2 10 3/uL0.0-0.7 [facility] CampusFolate16.00 ng/mL8.60-58.90[facility] CampusImmature Granulocyte # (Auto)0.01 10 3/uL0.00-0.03[facility] CampusPlatelet mean volume Auto (Bld) [Entitic vol]on 49-01-8121Xyxlkkjg mean volume (Bld) [Entitic vol]9.5 fL9.5-13.5FMercy Health St. Elizabeth [facility] HospitalPlatelets Auto (Bld) [#/Vol]on 07-06-3192Eblsjowlx (Bld) [#/Vol]212 10 3/sY333-046FhlljkxulSumma Health Akron CampusRBC Auto (Bld) [#/Vol] on 01-40-0691XVM (Bld) [#/Vol]4.04 10 6/uL4.20-5.40[facility] Hospitalerum or plasma albumin/globulin mass ratioon 83-59-8475Rdnnwng/Globulin [Mass ratio]1.3 {ratio}[facility] Hospitalerum or plasma anion gap determinationon 71-73-5237Lhbmm gap [Moles/Vol]12.6 mmol/LFMercy Health St. Elizabeth Youngstown HospitalNO MUGA SCAN INJECTIONon 71-67-7723AKU MUGA SCAN INJECTIONMRN: [id number] Patient Name: ATIYA JHA STUDY: MUGA Performing facility: [facility], [address] [place] [address], [address] [place] [address] Provider: Geoffrey Townsend DO, [facility] PCP: Dr. Nathalie Barreto Supervising provider: Sulma Busby RN, DOCK SUPERINTENDENT INDICATION: ASCVD Chest Pain; CHF Dyspnea Fatigue Hx PTCA HISTORY: Gender: F; Age: 82 y/o ; Height: 165.1 cm; Weight: 69.3023531 kg. CAD; Chest Pain; SOB; CHF Fatigue; Denies smoking. Cardiac catheterization on 2022. PTCA on 2022. COMPARISON: Previous nuclear testing completed ct1958 EF= 76% at [facility]. Previous echo testing completed [id number] EF=40-45% at [facility]. ACCESSION NUMBER(S): [id number]; [id number] ORDERING CLINICIAN: PINEDA TOWNSEND TECHNIQUE: The patient [...] is 58%. Electronically signed by: CHELSIE CEDENO MDJefferson HealthNo Panel Informationon 88-79-3517OvtqfyWE-[place] [employer] DO Work Phone: Tobacco Screening.on 55-43-4288Fkvxb depression screening assessmentYeNorthland Medical CenterTowaco Selenokhod DO Work Phone: Adult depression screening assessmentNorth Memorial Health Hospitalusky 250 DO Work Phone: Fall risk assessmenta) No falls within the last year [facility] [address] DO Work Phone: Tobacco use status CPHSb) NoMProvidence St. [facility] [place] [address] DO Work Phone: Basophils Auto (Bld) [#/Vol]Ordered By: Allan Townsend on 47-44-1819Lpbjndoht (Bld) [#/Vol]0.0 10*3/uL0.0-0.2FMercy Health St. Elizabeth [facility] HospitalBasophils/100 WBC Auto (Bld)Ordered By: Allan Townsend on 01-16-2023 Basophils/100 WBC (Bld)0.6 %.[facility] CampusCalcium [Mass/volume] in Serum or PlasmaOrdered By: Allan Townsend on 00-05-2087Kngflur [Mass/Vol]8.8 mg/dL8.6-10.3FMercy Health St. Elizabeth [facility] HospitalCarbon dioxide, total [Moles/volume] in Serum or PlasmaOrdered By: Allan Townsend on 82-45-3817FD3 [Moles/Vol]25.2 mmol/L21.0-31.0[facility] CampusChloride [Moles/volume] in Serum or PlasmaOrdered By: Allan Townsend on 09-93-0820Kqttsrak [Moles/Vol]107 mmol/N31-440SnjeeylpzSumma Health Akron CampusCreatinine [Mass/volume] in Serum or PlasmaOrdered By: Allan Townsend on 00-45-7238Dfcrogascn [Mass/Vol]0.88 mg/dL0.60-1.20[facility] CampusEosinophils Auto (Bld) [#/Vol]Ordered By: Allan Townsend on 85-28-3579Zrycdfnuhnp (Bld) [#/Vol]0.3 10*3/uL0.0-0.45[facility] CampusEosinophils/100 WBC Auto (Bld) Ordered By: Allan Townsend on 63-28-9968Movrhhkmyou/100 WBC (Bld)5.1 %.[facility] CampusErythrocyte distribution width Auto (RBC) [Ratio]Ordered By: Allan Townsend 93-31-0712Qknhsmyinud distribution width (RBC) [Ratio]13.8 % 11.9-15.3FMercy Health St. [facility] HospitalGlucose [Mass/volume] in Serum or PlasmaOrdered By: Allan Townsend 82-61-0294Zqzmxyu [Mass/Vol]100 mg/fQ63-074 [facility] CampusComment on above:ADA recommended reference rangeRandom Glucose Reference Range is dependent on time and content of last meal. Glucose of more than 200 mg/dL in a nonstressed, ambulatory subject supports the diagnosisof Diabetes Mellitus.Hematocrit Auto (Bld) [Volume fraction]Ordered By: Allan Townsend 23-69-0680Mctcfqpivo (Bld) [Volume fraction] 32.9 %34.0-46.4FMercy Health St. Elizabeth [facility]stown HospitalHemoglobin [Mass/volume] in BloodOrdered By: Allan Townsend 76-00-8390Ivvacwehri (Bld) [Mass/Vol]11.5 g/dL 11.8-15.4FMercy Health St. Elizabeth Young[facility] HospitalLeukocytes [#/volume] corrected for nucleated erythrocytes in Blood by Automated counOrdered By: Allan Townsend on 49-14-2737MMT corrected for nucl RBC Auto (Bld) [#/Vol]5.2 10*3/uL3.8-11.6 [facility] CampusLymphocytes Auto (Bld) [#/Vol]Ordered By: Allan Townsend on 89-33-2941Ncbneidhxen (Bld) [#/Vol]1.4 10*3/uL1.00-4.8[facility] CampusLymphocytes/100 WBC Auto (Bld)Ordered By: Allan Townsend on 16-27-4926Fxpczdtjgse/100 WBC (Bld)28.0 %.[facility] Auto (RBC) [Entitic mass]Ordered By: Allan Townsend on 56-29-8129ZGQ (RBC) [Entitic mass]32.1 pg24.7-34.3FMercy Health St. Elizabeth [facility] HospitalMCHC Auto (RBC) [Mass/Vol] Ordered By: Allan Townsend on 93-80-1865WVZD (RBC) [Mass/Vol]34.8 g/dL32.0-35.0 [facility] CampusMCV Auto (RBC) [Entitic vol]Ordered By: Allan Townsend on 76-08-7860PIF (RBC) [Entitic vol]92.2 nR01-818ZsrbtmzsgSumma Health Akron CampusMonocytes Auto (Bld) [#/Vol]Ordered By: Allan Townsend on 01-16-2023 Monocytes (Bld) [#/Vol]0.6 10*3/uL0.0-0.8[facility] Monocytes/100 WBC Auto (Bld)Ordered By: Allan Townsend on 60-89-2194Pkghdsnaj/100 WBC (Bld)12.0 %.[facility] CampusNeutrophils Auto (Bld) [#/Vol] Ordered By: Allan Townsend on 10-20-1480Pfzjhzlvjan (Bld) [#/Vol]2.8 10*3/uL1.8-7.7 [facility] CampusNeutrophils/100 WBC Auto (Bld)Ordered By: Allan Townsend on 94-65-8661Wiimikasfdi/100 WBC (Bld)54.3 %.[facility] CampusNo Panel InformationOrdered By: Allan Townsend on 53-75-1725Hklhzicoa GFR (CKD-EPI)> 60.0 mL/MinSumma Health Akron CampusPharmacy Creatinine Clearance (Chem48.86[facility] CampusNucleated erythrocytes [Presence] in Blood by Automated countOrdered By: Allan Townsend on 01-16-2023 Nucleated RBC Auto Ql (Bld)0.2 /100{WBC}0-0.5FMercy Health St. [facility] Hospital Platelet mean volume Auto (Bld) [Entitic vol]Ordered By: Allan Townsend on 01-16-2023 Platelet mean volume (Bld) [Entitic vol]8.0 fL6.3-10.7FMercy Health St. Elizabeth Youngstown HospitalPlatelets Auto (Bld) [#/Vol]Ordered By: Allan Townsend on 61-20-3050Uuvzyywhy (Bld) [#/Vol]161 10*3/zP746-828GdxjkafvuSumma Health Akron CampusPotassium [Moles/volume] in Serum or PlasmaOrdered By: Allan Townsend on 80-16-3803Floyhlfku [Moles/Vol]4.0 mmol/L3.5-5.1FMercy Health St. Elizabeth Young[facility] HospitalRBC Auto (Bld) [#/Vol]Ordered By: Allan Townsend on 80-88-9400SOQ (Bld) [#/Vol]3.57 10*6/uL3.60-5.00 [facility] Hospitalerum or plasma anion gap determinationOrdered By: Allan Townsend on 45-85-9917Ncygn gap [Moles/Vol]11.8 mmol/L6.0-15.0[facility] Hospitalodium [Moles/volume] in Serum or PlasmaOrdered By: Allan Townsend on 77-66-4449Qibjep [Moles/Vol]140 mmol/S654-958YvwsekaanSumma Health Akron CampusUrea nitrogen [Mass/volume] in Serum or PlasmaOrdered By: Allan Townsend on 29-35-9328Kimd nitrogen [Mass/Vol]15 mg/dL7-25[facility] CampusWBC Auto (Bld) [#/Vol]Ordered By: Allan Townsend on 85-33-7106YDP (Bld) [#/Vol]5.2 10*3/uL3.8-11.6FMercy Health St. Elizabeth Youngstown HospitalGlucose Glucometer (BldC) [Mass/Vol]Ordered By: Allan Townsend on 76-67-7665Lxlwhxj [Mass/Vol]108 mg/dL [facility] CampusComment on above:Random Glucose Reference Range is dependent on time and content of last meal. Glucose of more than 200 mg/dL in a nonstressed, ambulatory subject supports the diagnosis of Diabetes Mellitus.Troponin I.cardiac [Mass/volume] in Serum or Plasma by Detection limit <= 0.01 ng/Ordered By: Allan Townsend on 22-84-6089Hvcrkwui I.cardiac DL <= 0.01 ng/mL [Mass/Vol]68940.5 pg/mL0.0-15.0[facility] CampusComment on above:Critical Result : Called to and read back by: SEAN WHITTAKER at: 01/15/2023 05:46:06 by:[id number] partial thromboplastin time (aPTT) in platelet poor plasma by coagulation aOrdered By: Chaitanya Lu on 01-14-2023 aPTT Coag (PPP) [Time]274.4 s25.1-36.5FMercy Health St. Elizabeth Youngstown HospitalComment on above:result calledat 1017 on 01/14/23Alanine aminotransferase [Enzymatic activity/volume] in Serum or PlasmaOrdered By: Chaitanya Lu on 01-14-2023 ALT [Catalytic activity/Vol]13 U/L7-52[facility] CampusAlbumin [Mass/volume] in Serum or Plasma by Bromocresol green (BCG) dye binding metho Ordered By: Chaitanya Lu on 00-40-8753Nefekhj BCG dye [Mass/Vol]4.3 g/dL 3.5-5.7FMercy Health St. Elizabeth [facility] HospitalAlkaline phosphatase [Enzymatic activity/volume] in Serum or PlasmaOrdered By: Chaitanya Lu on 01-14-2023 ALP [Catalytic activity/Vol]49 U/P93-316ZpdehubwgSumma Health [facility] Campus Aspartate aminotransferase [Enzymatic activity/volume] in Serum or PlasmaOrdered By: Chaitanya Lu on 60-56-1423NOP [Catalytic activity/Vol]16 U/L13-39 [facility] CenterBasophils Auto (Bld) [#/Vol]Ordered By: Chaitanya Lu on 29-87-2421Mbbobnmdq (Bld) [#/Vol]0.0 10*3/uL0.0-0.2 [facility] CampusBasophils/100 WBC Auto (Bld)Ordered By: Chaitanya Lu on 25-90-6431Jmrpkbjpo/100 WBC (Bld)0.7 %.[facility] CampusBilirubin.total [Mass/volume] in Serum or PlasmaOrdered By: Chaitanya Lu on 87-26-6769Usxdzzlka [Mass/Vol]0.7 mg/dL0.3-1.0[facility] CampusCalcium [Mass/volume] in Serum or PlasmaOrdered By: Chaitanya Lu on 56-36-9886Mjzrftg [Mass/Vol]8.7 mg/dL8.6-10.3FMercy Health St. Elizabeth [facility] HospitalCarbon dioxide, total [Moles/volume] in Serum or Plasma Ordered By: Chaitanya Lu on 59-27-3876FX8 [Moles/Vol]21.9 mmol/L21.0-31.0 [facility] CampusChloride [Moles/volume] in Serum or Plasma Ordered By: Chaitanya Lu on 94-78-5350Xlcvrkdn [Moles/Vol]107 mmol/L98-107 [facility] CampusCreatine kinase [Enzymatic activity/volume] in Serum or PlasmaOrdered By: Chaitanya Lu on 44-59-9794PR [Catalytic activity/Vol]119 U/W10-753BsmqodnnkSumma Health Akron CampusCreatinine [Mass/volume] in Serum or PlasmaOrdered By: Chaitanya uL on 01-14-2023 Creatinine [Mass/Vol]0.86 mg/dL0.60-1.20[facility] Eosinophils Auto (Bld) [#/Vol]Ordered By: Chaitanya Lu on 01-14-2023 Eosinophils (Bld) [#/Vol]0.2 10*3/uL0.0-0.45[facility] Eosinophils/100 WBC Auto (Bld)Ordered By: Chaitanya Lu on 01-14-2023 Eosinophils/100 WBC (Bld)3.6 %.[facility] CampusErythrocyte distribution width Auto (RBC) [Ratio]Ordered By: Chaitanya Lu on 01-14-2023 Erythrocyte distribution width (RBC) [Ratio]13.4 %11.9-15.3FMercy Health St. Elizabeth [facility] HospitalGlobulin Calc (S) [Mass/Vol]Ordered By: Chaitanya Lu on 88-21-3149Zcoyhqea (S) [Mass/Vol]2.1 g/dLSumma Health Akron Campus Glucose [Mass/volume] in Serum or PlasmaOrdered By: Chaitanya Lu on 20-93-7983Lzpwrmd [Mass/Vol]132 mg/fZ76-631FftpooziqSumma Health Akron Campus Comment on above:ADA recommended reference rangeRandom Glucose Reference Range is dependent on time and content of last meal. Glucose of more than 200 mg/dL in a nonstressed, ambulatory subject supports the diagnosisof Diabetes Mellitus. Hematocrit Auto (Bld) [Volume fraction]Ordered By: Chaitanya Lu on 58-28-5824Cohqwcoqrd (Bld) [Volume fraction]33.5 %34.0-46.4FMercy Health St. Elizabeth Youngstown HospitalHemoglobin [Mass/volume] in BloodOrdered By: Chaitanya Lu on 03-42-7702Ysnfkwsaly (Bld) [Mass/Vol]11.4 g/dL11.8-15.4FMercy Health St. Elizabeth [facility] HospitalLaboratory - CoagulationOrdered By: Chaitanya Lu on 20-02-9606XH Coag (PPP) [Time]11.9 s9.0-12.9[facility] Leukocytes [#/volume] corrected for nucleated erythrocytes in Blood by Automated counOrdered By: Chaitanya Lu on 93-91-3960YAH corrected for nucl RBC Auto (Bld) [#/Vol]5.9 10*3/uL3.8-11.6FMercy Health St. Elizabeth [facility]stown HospitalLymphocytes Auto (Bld) [#/Vol]Ordered By: Chaitanya Lu on 70-63-9708Bltlbvwuqqu (Bld) [#/Vol]2.1 10*3/uL1.00-4.8[facility] CampusLymphocytes/100 WBC Auto (Bld)Ordered By: Chaitanya Lu on 82-51-3822Heqogduhyza/100 WBC (Bld) 35.4 %.[facility] Auto (RBC) [Entitic mass]Ordered By: Chaitanya Lu on 90-31-2596CBK (RBC) [Entitic mass]31.4 pg24.7-34.3FTrinity Health System East CampusHC Auto (RBC) [Mass/Vol]Ordered By: hCaitanya Lu on 01-84-1492WBAS (RBC) [Mass/Vol]34.1 g/dL32.0-35.0[facility] CampusMCV Auto (RBC) [Entitic vol]Ordered By: Chaitanya Lu on 44-14-3385NLB (RBC) [Entitic vol]92.1 aL56-809GswjnqeqzSumma Health Akron CampusMonocyte distribution width [Entitic volume] in Blood by AutomatedOrdered By: Chaitanya Lu on 17-00-6112Ydvegurc distribution width Auto (Bld) [Entitic vol]17.24 % 0.00-20.00[facility] CampusMonocytes Auto (Bld) [#/Vol]Ordered By: Chaitanya Lu on 75-94-5902Ycskytvrd (Bld) [#/Vol]0.5 10*3/uL0.0-0.8 [facility] CampusMonocytes/100 WBC Auto (Bld)Ordered By: Chaitanya Lu on 10-39-5837Bqnjqckyl/100 WBC (Bld)8.9 %.[facility] CampusNatriuretic peptide B [Mass/Vol]Ordered By: Chaitanya Lu on 39-28-0196Hmoznesmulp peptide B (Bld) [Mass/Vol]191.0 pg/mL5-100[facility] CampusNeutrophils Auto (Bld) [#/Vol]Ordered By: Chaitanya Lu on 95-55-1895Auabslsxoec (Bld) [#/Vol]3.1 10*3/uL1.8-7.7FMercy Health St. Elizabeth [facility]stown HospitalNeutrophils/100 WBC Auto (Bld)Ordered By: Chaitanya Lu on 75-42-1231Snyvxdlnngq/100 WBC (Bld)51.4 %.[facility] CampusNo Panel InformationOrdered By: Chaitanya Lu on 06-79-5518Nskmsoojf GFR (CKD-EPI)> 60.0 mL/MinSumma Health Akron CampusPharmacy Creatinine Clearance (Chem49.92[facility] CampusNucleated erythrocytes [Presence] in Blood by Automated countOrdered By: Chaitanya Lu on 40-84-6047Rxzqrboaz RBC Auto Ql (Bld)0.1 /100{WBC}0-0.5FMercy Health St. Elizabeth Youngstown HospitalPlatelet mean volume Auto (Bld) [Entitic vol]Ordered By: Chaitanya Lu on 57-87-9398Qrjwxgvw mean volume (Bld) [Entitic vol]8.3 fL6.3-10.7 [facility] CampusPlatelet poor plasma international normalized ratio (INR) by coagulation assay (relatOrdered By: Chaitanya Lu on 48-29-4744RSN Coag (PPP) [Relative time]1.0 {INR}[facility] CampusComment on above:INR Therapeutic Range A) Pre- and Peroperative OAT started two weeks before surgery. NOT HIP SURGERY: 1.5 - 2.5 HIP SURGERY: 2 - 3B) Primary and secondary prevention of venous THROMBOSIS: 2 - 3C) Active venous thrombosis, pulmonary embolismand prevention of recurrent venous thrombosis: 2 - 3D) Prevention of arterial thromboembolismincluding patients with mechanical heart valves: 3 - 4.5Platelets Auto (Bld) [#/Vol]Ordered By: Chaitanya Lu on 84-93-8594Oshgckxxz (Bld) [#/Vol]183 10*3/zP232-656WeatawpwqSumma Health Akron CampusPotassium [Moles/volume] in Serum or PlasmaOrdered By: Chaitanya Lu on 44-96-4448Xxblviekl [Moles/Vol]3.1 mmol/L3.5-5.1FMercy Health St. Elizabeth [facility]stown HospitalProtein [Mass/volume] in Serum or PlasmaOrdered By: Chaitanya Lu on 33-82-3426Rjvoozm [Mass/Vol]6.4 g/dL6.4-8.9[facility] CampusRBC Auto (Bld) [#/Vol]Ordered By: Chaitanya Lu on 77-19-3202TKY (Bld) [#/Vol] 3.64 10*6/uL3.60-5.00[facility] Hospitalerum or plasma albumin/globulin mass ratioOrdered By: Chaitanya Lu on 01-14-2023 Albumin/Globulin [Mass ratio]2.0 {ratio}[facility] Hospitalerum or plasma anion gap determinationOrdered By: Chaitanya Lu on 01-14-2023 Anion gap [Moles/Vol]15.2 mmol/L6.0-15.0[facility] Hospitalodium [Moles/volume] in Serum or PlasmaOrdered By: Chaitanya Lu on 01-14-2023 Sodium [Moles/Vol]141 mmol/O810-422LfohscdymSumma Health Akron CampusTroponin I.cardiac [Mass/volume] in Serum or Plasma by Detection limit <= 0.01 ng/Ordered By: Chaitanya Lu on 19-39-2759Qbxqbwwk I.cardiac DL <= 0.01 ng/mL [Mass/Vol]43.4 pg/mL0.0-15.0[facility] CampusUrea nitrogen [Mass/volume] in Serum or PlasmaOrdered By: Chaitanya Lu on 98-69-8216Edvc nitrogen [Mass/Vol]20 mg/dL7-25[facility] CampusWBC Auto (Bld) [#/Vol]Ordered By: Chaitanya Lu on 52-97-9416OIB (Bld) [#/Vol]5.9 10*3/uL 3.8-11.6FMercy Health St. Elizabeth Youngstown HospitalLIPID PROFILEon 67-57-1601AXOY-HDL RATIO NORMSMercy Health Kings Mills HospitalComment on above:Result Comment: 3.3 - 4.4 LOW RISK 4.4 - 7.1 AVERAGE RISK 7.1 - 11.0 MODERATE RISK >11.0 HIGH RISKPerformed By: #### BMP, LIPID, AST #### [facility] [address] [address] [address] Cynthia Quiñonezesterol [Mass/Vol]167 mg/dLNormal<=200[facility] Comment on above:Performed By: #### BMP, LIPID, AST #### [facility] [address] [address] [address] Cynthia ArroyoCholesterol in HDL [Mass/Vol]40 mg/jKFhewlw24-14RwoOhiohealth Nelsonville Health CenterComment on above:Performed By: #### BMP, LIPID, AST #### [facility] [address] [address] [address] Cynthia ArroyoCholesterol in LDL [Mass/Vol]101.8 mg/dLMercy Health St. Rita's Medical CenterComment on above:Performed By: #### BMP, LIPID, AST #### [facility] [address] [address] [address] Cynthia Zaragoza.total/Cholesterol in HDL [Mass ratio]4.2 {ratio} NormalOhiohealth Nelsonville Health CenterComment on above:Performed By: #### BMP, LIPID, AST #### [facility] [address] [place] [address] Dr. Cynthia Shannon NORMAL> or = 60 mg/dl - LOW CARDIOVASCULAR RISK <40 mg/dl - HIGH CARDIOVASCULAR RISKMercy Health St. Rita's Medical CenterComment on above:Performed By: #### BMP, LIPID, AST #### [facility] [address] [place] [address] Dr. Cynthia ArroyoLDL CALC NORMALSEE BELOWMercy Health St. Rita's Medical CenterComment on above:Result Comment: <100 mg/dl OPTIMAL 100 - 129 mg/dl NEAR OR ABOVE OPTIMAL 130 - 159 mg/dl BORDERLINE HIGH 160 - 189 mg/dl HIGH >190 mg/dl VERY HIGH Performed By: #### BMP, LIPID, AST #### [facility] [address] [place] [address] Dr. Cynthia ArroyoTriglyceride [Mass/Vol]126 mg/dLNormal<=150Ohio[facility] Comment on above:Performed By: #### BMP, LIPID, AST #### [facility] [address] [place] [address] Dr. Cynthia ArroyoVLDL CALC25.2 mg/dLNoUniversity Hospitals Samaritan Medical CenterComment on above: Performed By: #### BMP, LIPID, AST #### [facility] [address] [place] [address] Dr. Cynthia ArroyoPROF CHEM 8 (BAS METB)on [id number] gap [Moles/Vol]13.1 mmol/LNormalOhiohealth Nelsonville Health CenterComment on above:Performed By: #### BMP, LIPID, AST #### [facility] [address] [address] [address] Cynthia ArroyoCalcium [Mass/Vol]9.1 mg/dLNormal8.5-10.1[facility] Comment on above:Performed By: #### BMP, LIPID, AST #### [facility] [address] [address] [address] Cynthia ArroyoChloride [Moles/Vol]102 mmol/QNnvcwo36-439Atb [facility] Comment on above:Performed By: #### BMP, LIPID, AST #### [facility] [address] [address] Dr. Cynthia ArroyoCO2 [Moles/Vol]28.3 mmol/TVwootc50.0-32.0[facility] Comment on above:Performed By: #### BMP, LIPID, AST #### [facility] [address] [place] [address] Dr. Cynthia ArroyoCreatinine [Mass/Vol]1.04 mg/dLCritically high0.55-1.02[facility] FoundationComment on above:Performed By: #### BMP, LIPID, AST #### [facility] [address] [place] [address] Dr. Cynthia OroGFR-AF BURMESE>60Normal>=60[facility] FoundationComment on above:Performed By: #### BMP, LIPID, AST #### [facility] [address] [place] [address] Dr. Cynthia OroGFR-NON AF PLGQTZVT73 mL/min/1.31x7Xgukjqzkqg low>=60[facility] FoundationComment on above:Performed By: #### BMP, LIPID, AST #### [facility] [address] [place] [address] Dr. Cynthia ArroyoGlucose [Mass/Vol]94 mg/iWCdbfvl42-996LgvOhiohealth Nelsonville Health Center Comment on above:Performed By: #### BMP, LIPID, AST #### [facility] [address] [place] [address] Dr. Cynthia ArroyoPotassium [Moles/Vol]4.4 mmol/LNormal3.5-5.1[facility] Comment on above:Performed By: #### BMP, LIPID, AST #### [facility] [address] [address] [address] Cynthia Moreiradium [Moles/Vol]139 mmol/OTapcpc575-427[facility] Comment on above:Performed By: #### BMP, LIPID, AST #### [facility] [address] [address] [address] Cynthia Saleh nitrogen [Mass/Vol]18.0 mg/dLNormal7.0-18.0[facility] FoundationComment on above:Performed By: #### BMP, LIPID, AST #### [facility] [address] [address] [address] Cynthia Saleh nitrogen/Creatinine [Mass ratio]17.3 mg/mgNormalThe [facility] FoundationComment on above:Performed By: #### BMP, LIPID, AST #### [facility] [address] [address] [address] Cynthia Dhillon 33-94-2746KWX [Catalytic activity/Vol]13 U/LCritically low 15-37[facility] FoundationComment on above:Performed By: #### BMP, LIPID, AST #### [facility] [address] [place] [address] Dr. Cynthia ArroyoUrinalysis - DIPSTICKon 13-68-8734Tordhykfjb (U)clearSmadex Other Bilirubin Ql (U)smallSmadex Other Color (U)amberSmadex Other Glucose Ql (U)[employer] Other Hemoglobin Ql (U)[employer] Other Ketones Ql (U)[employer] Other Leukocyte esterase Test strip Ql (U)traceSmadex Other Nitrite Ql (U)NegativeFerguson betNOW Other pH (U)5 [pH][employer]erguson [employer]NOW Other Protein Ql (U)NegativeSmadex Other Specific gravity (U) [Rel density]1.010[facility] betNOW Other Urobilinogen (U) [Mass/Vol]0.2 mg/dLMechio Other Urinalysis - DIPSTICKNoMechio Other Office Visit (Cardiology)on 07-21-8004Klicuh-up visit Diagnoses/Problems Assessed History of PTCA (V45.82) [...] 04Jun2022 05:32PMRecorded: 04Jun2022 03:21PM Heart Rate72, R Blrpms24, L Radial Yxnjfkqj760, RUE, Baqsdic043, Sitting Haivmmxzx41, RUE, Mwdwhkc17, Sitting Height5 ft 5 in5 ft 5 in Pemsfh196 lb 157 lb BMI Ppsdpccdpo90.13 kg/m226.13 kg/m2 BSA Calculated1.781.78 Tobacco Useb) No PHQ-2 #1. Over the last 2 weeks have you felt down, depressed or hopeless? (If yes, answer PHQ-9 below)No PHQ-2 #2. Over the last 2 weeks have you felt little interest or pleasure in doing things? (If yes,answer PHQ-9 below)No Falls Screening (Age 18+)a) No [...] MD; Jun 04 2022 5:33PM EST (Author) [facility] TouchworksTobacco Screening.on 10-48-3201Vucwc depression screening assessmentNoInland [facility] [employer] 250 DO Work Phone: Fall risk assessmenta) No falls within the last year [facility] [employer] 250 DO Work Phone: Tobacco use status CPHSb) [facility]MProv[facility] [employer] 250 DO Work Phone: mg MAMM SCREEN 3D GLADIS CADon 48-50-5037MA MAMM SCREEN 3D GLADIS CADPatient: ATIYA JHA Exam Date: 05/21/2022 : 1940 Gender:F Ordering : DR EDER LAURENT . Admission #: [id number] Family : Order #: [id number] CLICK HERE TO VIEW EXAM RADIOLOGY REPORT [...] Family Cancers None LOCATION: [facility] BREAST COMPOSITION: Heterogeneously dense,which may obscure small [...] by: Yoselin King M.D. on 05/21/2022 at 15:56[facility] Medical CenterXR DEXA BONE DENSITYon 47-88-8360PJ DEXA BONE DENSITYEXAMINATION: XR DEXA BONE DENSITY, 05/21/2022 10:10 AM EDT HISTORY: [...] Electronically authenticated by: YOSELIN KING Date: 2022-05-21 19:19[facility] Medical CenterPA ACOG PANEL 2: 30 to 65on 05-15-2022..NormalThe [facility] FoundationComment on above:Result Comment: Performed at: BAPerformed By: #### [id number] #### [facility] [address] [place] [address] Dr. Cynthia Quiñonez [facility] ACOG TestingCommentNoUniversity Hospitals Samaritan Medical CenterComment on above:Result Comment: <21 or >65 or no age providedPerformed By: #### [id number] #### [facility] [address] [place] [address] Dr. Cynthia ArroyoDIAGNOSIS:CommentLima Memorial Hospital on above: Result Comment: NEGATIVE FOR INTRAEPITHELIAL LESION OR MALIGNANCY. CELLULAR CHANGES ASSOCIATED WITH ATROPHY ARE PRESENT. THIS SPECIMEN WAS RESCREENED PART OF OUR BAG VALVER PROGRAM. Performed at: BAPerformed By: #### [id number] #### [facility] [address] [place] [address] Dr. Cynthia ArroyoMethodology:CommentLima Memorial Hospital on above: Result Comment: This liquid based ThinPrep(R) pap test was screened with the use of an image guided system. Performed at: WBPerformed By: #### [id number] [address] [id number] [address] Cynthia ArroyoNote:CommentLima Memorial Hospital on above:Result Comment: The Pap smear is a screening test designed to aid in the detection of premalignant and malignant conditions of the uterine cervix. It is not a diagnostic procedure and should not be used as the sole means of detecting cervical cancer. Both false-positive and false-negative reports do occur. . Performed at: WBPerformed By: #### [id number] #### [address] [address] Dr[address] Cynthia ArroyoPerformed by:CommentLima Memorial Hospital on above: Result Comment: Valorie Olivares, Retail Advisor (ASCP) Performed at: [facility] Centerformed By: #### [id number] #### [facility] [address] [place] [address] Dr. Cynthia ArroyoQC reviewed by:[facility] on above:Result Comment: Jatin Hanks, Retail Advisor (ASCP) Performed at: [facility] Centerformed By: #### [id number] #### [facility] [address] [place] [address] Dr. Cynthia ArroyoSpecimen adequacy:CommentMercy Health St. Rita's Medical CenterComment on above:Result Comment: Satisfactory for evaluation. Endocervical component may not be distinguished in cases of atrophy. Performed at: BAPerformed By: #### [id number] #### [facility] [address] [place] [address] Dr. Cynthia Arroyo Vital Signs Date TimeVital SignValuePerforming XxpiholnyNfuctnii88-59-8075 09:36-0400Body eylrcf907.5 cmMaerick CAMPBELL Work Phone: [facility] CenterGxzcpzgipt55-51-8227 09:36-0400Body mass index (BMI) [Ratio]26.16 kg/c5Ttbxnsqlalitha CAMPBELL Work Phone: [facility] CenterDdclztbrjb37-96-8055 09:36-0400Body eqbnmh09.86 kgMattlalitha CAMPBELL Work Phone: [facility] CenterNcyeytupig86-82-8970 13:06-0400Body qtqlby120.1 cmRichard Visci DO Work Phone: [facility] CenterYvtjbugabk08-26-3458 13:06-0400Body mass index (BMI) [Ratio]23.8 kg/w0Ivdokdg Visci DO Work Phone: [facility] CenterTtknoohrhd69-88-1991 13:06-0400Body ialtzd37.86 kgRichard Visci DO Work Phone: [facility] CenterPczcpomzyz28-19-5146 13:06-0400Diastolic blood mubexvem30 mm[Hg]Jordan Visci DO Work Phone: [facility] CenterNcxsxsieyd19-43-9760 13:06-0400Systolic blood ugbvgckz103 mm[Hg]Jordan Visci DO Work Phone: [facility] CenterJjvttrmtnu34-25-5392 11:48-0400Body absytt779.1 cmBenjamin Ball DO Work Phone: [facility]10-13-2025 11:48-0400 Body mass index (BMI) [Ratio]23.8 kg/c7Quajzvms Ball DO Work Phone: [facility]10-13-2025 11:48-0400 Body .86 kgBenjamin Ball DO Work Phone: [facility]10-13-2025 11:48-0400 Diastolic blood rhfuexbj140 mm[Hg]Ivan Ball DO Work Phone: [facility]10-13-2025 11:48-0400 Heart rate71 /minBenjamin Ball DO Work Phone: [facility]10-13-2025 11:48-0400 Respiratory rate12 /minBenjamin Ball DO Work Phone: [facility]10-13-2025 11:48-0400 Systolic blood vinksrue464 mm[Hg]Ivan Ball DO Work Phone: [facility]10-06-2025 13:04-0400 Body .1 cmSteven Rusher DPM Work Phone: 1(764)[address] [place], [place] 8757910-06-2025 13:04-0400Body mass index (BMI) [Ratio]23.8 kg/n9Gpyekv Rusher DPM Work Phone: 1(785)[address] [place], [place] 8757910-06-2025 13:04-0400Body qhopxi03.86 kgSteven Rusher DPM Work Phone: 1(232)[address] [place], [place] 8757909-09-2025 11:53-0400Diastolic blood mm[Hg]Sulma Busby MARKETING RESEARCH INTERN-DOCK SUPERINTENDENT Work Phone: [facility]09-09-2025 11:53-0400 Systolic blood kxxqcrix986 mm[Hg]Sulma Busby MARKETING RESEARCH INTERN-DOCK SUPERINTENDENT Work Phone: [facility]09-09-2025 11:37-0400 Body .6 cmSulma Busby MARKETING RESEARCH INTERN-DOCK SUPERINTENDENT Work Phone: [facility]09-09-2025 11:37-0400 Body mass index (BMI) [Ratio]24.37 kg/o0FjiqgSulma Busby MARKETING RESEARCH INTERN-DOCK SUPERINTENDENT Work Phone: [facility]09-09-2025 11:37-0400 Body wgcoll75.41 kgSulma Busby MARKETING RESEARCH INTERN-DOCK SUPERINTENDENT Work Phone: [facility]09-09-2025 11:37-0400 Heart rate72 /Tanya Busby MARKETING RESEARCH INTERN-DOCK SUPERINTENDENT Work Phone: [facility]07-25-2025 10:17-0400 Body uzzfbl730.1 cmBenjamin Ball DO Work Phone: 1(514)714-[address] [place], [place] 5153307-25-2025 10:17-0400 Body mass index (BMI) [Ratio]23.6 kg/q5Bajemqza Ball DO Work Phone: 1(266)[address]07-25-2025 10:17-0400 Body qwpobj27.41 kgBenjamin Ball DO Work Phone: 1(352)[address]07-25-2025 10:17-0400 Diastolic blood mnflikcx15 mm[Hg]Ivan Ball DO Work Phone: 1(959)[address]07-25-2025 10:17-0400 Heart rate70 /minBenjamin Ball DO Work Phone: 1(971)770-[address] [place], [place] 5153307-25-2025 10:17-0400 Respiratory rate12 /minBenjamin Ball DO Work Phone: 1(229)571-[address] [place], [place] 5153307-25-2025 10:17-0400 SaO2% (BldA) [Mass fraction]97 %Ivan Ball DO Work Phone: 1(713)540-[address] [place], [place] 5153307-25-2025 10:17-0400 Systolic blood jjtsqynw295 mm[Hg]Ivan Ball DO Work Phone: 1(709)[address]07-11-2025 15:37-0400 Body [degF]Ivan Ball DO Work Phone: 1(416)605-[address] [place], [place] 5153307-11-2025 15:37-0400 Diastolic blood ohephoeu23 mm[Hg]Ivan Ball DO Work Phone: 1(419)[address] [place], [place] 0496207-11-2025 15:37-0400 Heart rate84 /minBenjamin Ball DO Work Phone: 1(419)[address] [place], [place] 0496207-11-2025 15:37-0400 Respiratory rate16 /minBenjamin Ball DO Work Phone: 1(419)[address] [place], [place] 0496207-11-2025 15:37-0400 SaO2% (BldA) [Mass fraction]97 %Ivan Ball DO Work Phone: 1(419)[address] [place], [place] 0496207-11-2025 15:37-0400 Systolic blood mm[Hg]Ivan Ball DO Work Phone: 1(419)[address] [place], [place] 0496207-11-2025 14:27-0400 Body awhbxv368.1 cmBenjamin Ball DO Work Phone: 1(419)[address] [place], [place] 0496207-11-2025 05:01-0400 Body jervpl36 kgBenjamin Ball DO Work Phone: 1(419)[address] [place], [place] 0496207-10-2025 23:08-0400 Diastolic blood aktnlhko79 mm[Hg]Ivan Ball DO Work Phone: 1(419)[address] [place], [place] 0496207-10-2025 23:08-0400 Heart rate79 /minBenjamin Ball DO Work Phone: 1(419)[address] [place], [place] 0496207-10-2025 23:08-0400 Respiratory rate14 /minBenjamin Ball DO Work Phone: 1(419)[address] [place], [place] 0496207-10-2025 23:08-0400 SaO2% (BldA) [Mass fraction]94 %Ivan Ball DO Work Phone: 1(419)[address] [place], [place] 0496207-10-2025 23:08-0400 Systolic blood jhbtxvyz643 mm[Hg]Ivan Ball DO Work Phone: 1(419)[address] [place], [place] 0496207-10-2025 18:26-0400 Body ykyomo957.1 cmBenjamin Ball DO Work Phone: 1(419)[address] [place], [place] 0496207-10-2025 18:26-0400 Body wbksvhyxtjl37.9 [degF]Ivan Ball DO Work Phone: [phone])[address] [place], [place] 0496207-10-2025 18:26-0400 Body .86 kgBenjamin Ball DO Work Phone: 1419)[address] [place], [place] 0496207-07-2025 14:23-0400 Body fpvycq944.1 cmBenjamin Ball DO Work Phone: 1419)[address] [place], [place] 0496207-07-2025 14:23-0400 Body mass index (BMI) [Ratio]24.3 kg/k9Jrqwyqas Ball DO Work Phone: 1419)[address] [place], [place] 0496207-07-2025 14:23-0400 Body sfaysm33.22 kgBenjamin Ball DO Work Phone: 1419)[address] [place], [place] 0496207-07-2025 14:23-0400 Diastolic blood byqidkps47 mm[Hg]Ivan Ball DO Work Phone: 1(419)[address] [place], [place] 0496207-07-2025 14:23-0400 Heart rate76 /minBenjamin Ball DO Work Phone: 1419)[address] [place], [place] 0496207-07-2025 14:23-0400 Respiratory rate12 /minBenjamin Ball DO Work Phone: 1(461)[address] [place], [place] 0496207-07-2025 14:23-0400 SaO2% (BldA) [Mass fraction]96 %Ivan Ball DO Work Phone: 1(419)[address] [place], [place] 0496207-07-2025 14:23-0400 Systolic blood gpimyfog591 mm[Hg]Ivan Ball DO Work Phone: 1419)[address] [place], [place] 0496207-04-2025 08:43-0400 Body uvrpdd942.1 cmBenjamin Ball DO Work Phone: 1419)[address] [place], [place] 0496207-04-2025 08:43-0400 Body kmcguuilrbw13.2 [degF]Ivan Ball DO Work Phone: [address] [place], [place] 0496207-04-2025 08:43-0400 Body aygely37.77 kgBenjamin Ball DO Work Phone: [facility]07-04-2025 08:43-0400 Diastolic blood fujojpyq04 mm[Hg]Ivan Ball DO Work Phone: [facility]07-04-2025 08:43-0400 Heart rate71 /minBenjamin Ball DO Work Phone: [phone]07-04-2025 08:43-0400 Respiratory rate16 /minBenjamin Ball DO Work Phone: 1(961)516-[address] [place], [place] 5153307-04-2025 08:43-0400 SaO2% (BldA) [Mass fraction]99 %Ivan Ball DO Work Phone: [phone]07-04-2025 08:43-0400 Systolic blood mm[Hg]Ivan Ball DO Work Phone: [phone]06-30-2025 12:51-0400 Body gehfsg727.1 cmSteven Rusher DPM Work Phone: 1(158)[address]06-30-2025 12:51-0400Body mass index (BMI) [Ratio]23.8 kg/u4Aspiwb Rusher DPM Work Phone: 1(015)[address]06-30-2025 12:51-0400Body hgxgry53.86 kgSteven Rusher DPM Work Phone: 1(534)[address] [place], [place] 8757906-26-2025 10:22-0400Diastolic blood itvjfqyl55 mm[Hg]Jamia Ndiaye MD Work Phone: [facility]06-26-2025 10:22-0400 Systolic blood yvebhnps432 mm[Hg]Jamia Ndiaye MD Work Phone: [facility]06-26-2025 10:21-0400 Body phmjuv659.6 cmJamia Ndiaye MD Work Phone: [facility]06-26-2025 10:21-0400 Body mass index (BMI) [Ratio]24.37 kg/n3ZkpojlyJamia Ndiaye MD Work Phone: [facility]06-26-2025 10:21-0400 Body zxfkel96.41 kgJamia Ndiaye MD Work Phone: 1(636)972-[address] [place], [place] 2256706-26-2025 10:21-0400 Heart rate72 /minJamia Ndiaye MD Work Phone: 1(946)668-05[facility]06-25-2025 11:10-0400 Body rzguxv781.1 cmRichard Visci DO Work Phone: 1(972)[address]06-25-2025 11:10-0400Body mass index (BMI) [Ratio]23.8 kg/l0Vkxcfud Visci DO Work Phone: 1(907)894-[address] [place], [place] [address]Pittxikzun71-33-2855 11:10-0400Body cyvczk43.86 kgRichard Visci DO Work Phone: 1(442)211-[employer]9[facility] CenterBtbmqquhny16-13-9813 11:10-0400Diastolic blood duflrtqc69 mm[Hg]Jordan Visci DO Work Phone: 1(632)440-[facility] GroupCrossroads Regional Medical CenterPqgmihlghj34-99-5690 11:10-0400Systolic blood mm[Hg]Jordan Visci DO Work Phone: [facility] CenterHailibiaoa21-84-0623 11:50-0400Body yokamb339.1 cmBenjamin Ball DO Work Phone: [facility]05-12-2025 11:50-0400 Body mass index (BMI) [Ratio]23.9 kg/b4Rgaskbjf Ball DO Work Phone: [facility]05-12-2025 11:50-0400 Body wzitqo24.31 kgBenjamin Ball DO Work Phone: [facility]05-12-2025 11:50-0400 Diastolic blood zixjbpmk22 mm[Hg]Ivan Ball DO Work Phone: [facility]05-12-2025 11:50-0400 Heart rate67 /minBenjamin Ball DO Work Phone: [facility]05-12-2025 11:50-0400 Respiratory rate12 /minBenjamin Ball DO Work Phone: [facility]05-12-2025 11:50-0400 SaO2% (BldA) [Mass fraction]97 %Ivan Ball DO Work Phone: [facility]05-12-2025 11:50-0400 Systolic blood xjwnhlau090 mm[Hg]Ivan Ball DO Work Phone: [facility]05-09-2025 11:48-0400 Body cmJamia Ndiaye MD Work Phone: [facility]05-09-2025 11:48-0400 Body mass index (BMI) [Ratio]25.51 kg/v7ZwsqkfkJamia Ndiaye MD Work Phone: [facility]05-09-2025 11:48-0400 Body qebqwf09.32 kgJamia Ndiaye MD Work Phone: [facility]05-09-2025 11:48-0400 Diastolic blood sushxmio78 mm[Hg]Jamia Ndiaye MD Work Phone: [address] [place], [place] 3687505-09-2025 11:48-0400 Heart rate76 /Maribel Ndiaye MD Work Phone: [facility]05-09-2025 11:48-0400 Systolic blood msdcvavl182 mm[Hg]Jamia Ndiaye MD Work Phone: [facility]05-03-2025 09:43-0400 Body baefup400.1 cmShanice De La Cruz MD Work Phone: 1(419)289-[address] [place], [place] 2780405-03-2025 07:39-0400 Body zwianpbqblr78.9 [degF]Shanice De La Cruz MD Work Phone: 1(582)[address] [place], [place] 9001005-03-2025 07:39-0400 Diastolic blood rowctgeb20 mm[Hg]Shanice De La Cruz MD Work Phone: 1(759)[address] [place], [place] 9001005-03-2025 07:39-0400 Heart rate67 /minShanice De La Cruz MD Work Phone: 1(792)[address] [place], [place] 9001005-03-2025 07:39-0400 SaO2% (BldA) [Mass fraction]93 %Shanice De La Cruz MD Work Phone: 1(387)[address] [place], [place] 9001005-03-2025 07:39-0400 Systolic blood bmufujzw216 mm[Hg]Shanice De La Cruz MD Work Phone: 1(505)[address] [place], [place] 9001005-02-2025 23:14-0400 Respiratory rate16 /minShanice De La Cruz MD Work Phone: 1(899)[address] [place], [place] 9001005-02-2025 07:01-0400 Body mass index (BMI) [Ratio]23.48 kg/h5UayrvShanice De La Cruz MD Work Phone: 1(165)[address] [place], [place] 9001005-02-2025 07:01-0400 Body noyuqm83 kgShanice De La Cruz MD Work Phone: 1(171)[address] [place], [place] 9001004-29-2025 08:46-0400 Body lbkmojzqqky81.9 [degF]Ivan Ball DO Work Phone: [facility]04-29-2025 08:46-0400 Diastolic blood mm[Hg]Ivan Ball DO Work Phone: [facility]04-29-2025 08:46-0400 Heart rate80 /minBenjamin Ball DO Work Phone: [facility]04-29-2025 08:46-0400 Respiratory rate18 /minBenjamin Ball DO Work Phone: 1419)[address] [place], [place] 0496204-29-2025 08:46-0400 SaO2% (BldA) [Mass fraction]96 %Ivan Ball DO Work Phone: 1419)[address] [place], [place] 0496204-29-2025 08:46-0400 Systolic blood mm[Hg]Ivan Ball DO Work Phone: 1419)[address] [place], [place] 0496204-29-2025 06:00-0400 Body .5 kgBenjamin Ball DO Work Phone: 1419)[address] [place], [place] 0496204-25-2025 18:19-0400 Body hvuniw841.1 cmBenjamin Ball DO Work Phone: 1419)[address] [place], [place] 0496204-25-2025 16:09-0400 Diastolic blood nklyqune24 mm[Hg]Ivan Ball DO Work Phone: 1419)[address] [place], [place] 0496204-25-2025 16:09-0400 Heart rate70 /minBenjamin Ball DO Work Phone: 1419)[address] [place], [place] 0496204-25-2025 16:09-0400 Respiratory rate18 /minBenjamin Ball DO Work Phone: 1(049)[address] [place], [place] 0496204-25-2025 16:09-0400 SaO2% (BldA) [Mass fraction]98 %Ivan Ball DO Work Phone: 1419)[address] [place], [place] 0496204-25-2025 16:09-0400 Systolic blood gkznasye782 mm[Hg]Ivan Ball DO Work Phone: 1419)[address] [place], [place] 0496204-25-2025 13:25-0400 Body olpkqb187.1 cmBenjamin Ball DO Work Phone: [address] [place], [place] 0496204-25-2025 13:25-0400 Body zphvrveiaui91.7 [degF]Ivan Ball DO Work Phone: 1419)[address] [place], [place] 0496204-25-2025 13:25-0400 Body .4 kgBenjamin Ball DO Work Phone: [facility]03-26-2025 15:19-0400 Body lkxopq830.1 cmJamia Ndiaye MD Work Phone: 1(266)138-[address] [place], [place] 2256703-26-2025 15:19-0400 Body mass index (BMI) [Ratio]24.79 kg/u8RaravsdJamia Ndiaye MD Work Phone: 1(560)[address] [place], [place] 2256703-26-2025 15:19-0400 Body znybia05.59 kgJamia Ndiaye MD Work Phone: 1(959)[address]03-26-2025 15:19-0400 Diastolic blood jyhqlrtr38 mm[Hg]Jamia Ndiaye MD Work Phone: 1(596)[address]03-26-2025 15:19-0400 Heart rate68 /Maribel Ndiaye MD Work Phone: 1(221)[address] [place], [place] 2256703-26-2025 15:19-0400 Systolic blood whxqjyjf493 mm[Hg]Jamia Ndiaye MD Work Phone: 6(689)006-[address] [place], [place] 2256703-18-2025 11:06-0400 Body vuzssa357.1 cmSum[facility]03-18-2025 11:06-0400Body mass index (BMI) [Ratio]24.8 kg/t4OpujcsplzSumma Health [facility] Campus03-18-2025 11:06-0400Body soiykp56.81 kgSumma Health [facility] Campus03-18-2025 11:06-0400Diastolic blood lsggqboc43 mm[Hg][facility] 10-18-2024 11:06-0400Heart rate66 /[facility] 10-18-2024 11:06-0400Respiratory rate12 /[facility] 10-18-2024 11:06-0400Systolic blood gdlilizc731 mm[Hg][facility]02-26-2025 10:01-0500Body mass index (BMI) [Ratio]24.79 kg/x1Ylkskhv Visci DO Work Phone: [facility] CenterGkchwwhoot81-43-6728 10:01-0500Body .59 kgJordan Visci DO Work Phone: [facility] CenterZeloqcnbfy73-38-3858 10:01-0500Diastolic blood lrsqynnf86 mm[Hg]Jordan Visci DO Work Phone: [facility] CenterUynqzdbtat39-41-0773 10:01-0500Systolic blood oqrbgsse046 mm[Hg]Jordan Visci DO Work Phone: [facility] CenterTydtxryjem51-57-4156 13:29-0500Body itivvx243.1 cmSum[facility]12-17-2024 13:29-0500Body mass index (BMI) [Ratio]24.3 kg/p9BffujkburSumma Health Akron Campus12-17-2024 13:29-0500Body dbpeyo31.45 [facility]12-17-2024 13:29-0500Diastolic blood yerfqbav22 mm[Hg][facility]12-17-2024 13:29-0500 Heart rate76 /[facility]12-17-2024 13:29-0500 Respiratory rate12 /[facility]12-17-2024 13:29-0500 Systolic blood wuhpyooi553 mm[Hg][facility]11-29-2024 09:54-0500Body .1 cmSum[facility] Health [facility]11-29-2024 09:54-0500Body mass index (BMI) [Ratio]24.5 kg/m9FqxzahlugSumma Health [facility] Campus11-29-2024 09:54-0500Body .81 kg[facility] 07-01-2024 09:54-0500Diastolic blood wwhfessu66 mm[Hg][facility]11-29-2024 09:54-0500Heart rate68 /[facility] 07-01-2024 09:54-0500Systolic blood mm[Hg][facility]11-25-2024 10:50-0500Body emqehd292.1 cmSteven Rusher DPM Work Phone: [phone] [place], [place] [id number] 10:50-0500Body mass index (BMI) [Ratio]24.13 kg/g3Pqybin Rusher DPM Work Phone: [phone]11-25-2024 10:50-0500Body ncwyrt30.77 kgSteven Rusher DPM Work Phone: 1(448)[address]10-28-2024 11:00-0400Body .1 cmJamia Ndiaye MD Work Phone: 1(078)16998 [address]10-28-2024 11:00-0400 Body mass index (BMI) [Ratio]24.03 kg/u7OfwzanxJamia Ndiaye MD Work Phone: 1(527)41498 [address]10-28-2024 11:00-0400 Body ljqbei00.5 kgJamia Ndiaye MD Work Phone: 1(573)41498 [address]10-28-2024 11:00-0400 Diastolic blood mqhfuccy14 mm[Hg]Jamia Ndiaye MD Work Phone: 1(765)41498 [address]10-28-2024 11:00-0400 Heart rate71 /minJamia Ndiaye MD Work Phone: 1(126)41498 [address]10-28-2024 11:00-0400 Systolic blood qymxwucg682 mm[Hg]Jamia Ndiaye MD Work Phone: 1(472)414[address]10-25-2024 14:13-0400 Body [facility]xxu170.1 [facility] 14:13-0400Body mass index (BMI) [Ratio]24 kg/r3HmobkfzjrSumma Health [facility]10-25-2024 14:13-0400Body .54 kg[facility]10-25-2024 14:13-0400Diastolic blood xvtguqjz16 mm[Hg][facility] 05-27-2024 14:13-0400Heart rate78 /[facility] 05-27-2024 14:13-0400Respiratory rate12 /[facility] 05-27-2024 14:13-0400Systolic blood hwvnarno666 mm[Hg][facility]10-24-2024 08:38-0400Body .6 Vu Perkins MD Work Phone: [facility]10-24-2024 08:38-0400Body mass index (BMI) [Ratio]25.23 kg/d7DnzgzRamone Perkins MD Work Phone: [facility]10-24-2024 08:38-0400Body pdpuln30.68 kgRamone Perkins MD Work Phone: [facility]10-23-2024 10:16-0400Body mass index (BMI) [Ratio]24.13 kg/m6Nvxqqzw Visci DO Work Phone: [facility] CenterLxduqntubw48-70-4390 10:16-0400Body jsyedb08.77 kgRichard Visci DO Work Phone: [facility] CenterCqhktyddkv76-55-0127 10:16-0400Diastolic blood mzpdumci07 mm[Hg]Jordan Visci DO Work Phone: [facility] CenterHvriuqpczp91-76-0928 10:16-0400Systolic blood ihkxsagu137 mm[Hg]Jordan Visci DO Work Phone: [facility] CenterHvxwlspobo31-14-8873 10:48-0400Body rqlumy350.1 cmDO Jordan Visci Work Phone: [facility]09-23-2024 10:48-0400 Body mass index (BMI) [Ratio]24.6 kg/m2DO Jordan Visci Work Phone: 1(478)[address]09-23-2024 10:48-0400 Body igjccb59.13 kgDO Jordan Visci Work Phone: 4(155)261-[address] [place], [place] [address]9-23-2024 10:48-0400 Diastolic blood mm[Hg]DO Jordan Pettiti Work Phone: [facility]09-23-2024 10:48-0400 Heart rate82 /minDO Jordan Pettiti Work Phone: [facility]09-23-2024 10:48-0400 SaO2% (BldA) [Mass fraction]98 %DO Jordan Wisdom Work Phone: [facility]09-23-2024 10:48-0400 Systolic blood mm[Hg]DO Jordan Pettiti Work Phone: [facility]08-26-2024 10:55-0400 Body nlytpu892.1 cmSteven Rusher DPM Work Phone: [facility] CenterHmtdlukjkv64-40-0105 10:55-0400Body mass index (BMI) [Ratio]25.13 kg/f6Kwkggj Rusher DPM Work Phone: 4(658)541-[address] [place], [place] [address]Sncnwpcxjh73-94-7781 10:55-0400Body elugmq56.49 kgSteven Rusher DPM Work Phone: [facility] CenterMrsfiwvpxt91-95-8257 10:03-0400Body uvvvrx475.1 cmDO Ivan Ball Work Phone: [facility]07-31-2024 10:03-0400 Body mass index (BMI) [Ratio]25.5 kg/m2DO Ivan Ball Work Phone: [facility]07-31-2024 10:03-0400 Body .56 kgDO Ivan Ball Work Phone: [facility]07-31-2024 10:03-0400 Diastolic blood qjjxddeh57 mm[Hg]DO Ivan Ball Work Phone: [facility]07-31-2024 10:03-0400 Heart rate65 /minDO Ivan Ball Work Phone: [facility]07-31-2024 10:03-0400 Respiratory rate12 /minDO Ivan Ball Work Phone: [facility]07-31-2024 10:03-0400 Systolic blood rhwasjmb671 mm[Hg]DO Ivan Barreto Work Phone: [facility]07-30-2024 14:17-0400 Blood Pressure LocationPatricmarisela STREETER [facility]07-30-2024 14:17-0400Body rjlufjkbdfk09.8 [degF][address] STREETER [facility]07-30-2024 14:17-0400Diastolic blood uojvshef06 mm[Hg][address] STREETER [facility]07-30-2024 14:17-0400Heart rate62 /minPatricmarisela STREETRE [facility]07-30-2024 14:17-0400Respiratory rate18 /minPatricmarisela STREETER [facility]07-30-2024 14:17-0400Systolic blood mm[Hg][address] STREETER [facility]07-08-2024 11:02-0400Blood Pressure LocationAlysha Galea [facility]07-08-2024 11:02-0400Diastolic blood vipleqqt81 mm[Hg]Antonina Galea [facility]07-08-2024 11:02-0400Heart rate60 /minAlysha Galea [facility]07-08-2024 11:02-0400Systolic blood bmernvku302 mm[Hg]Antonina Cooper [facility]06-11-2024 09:44-0400Body nruotc308.1 cmPineda Santillan MD Work Phone: [facility]06-11-2024 09:44-0400 Body mass index (BMI) [Ratio]24.63 kg/l7IsefjczPineda Santillan MD Work Phone: [facility]06-11-2024 09:44-0400 Body yogcsg47.13 kgPineda Santillan MD Work Phone: 7(726)775-[address] [place], [place] 2256706-11-2024 09:44-0400 Diastolic blood hwhinilw10 mm[Hg]Pineda Santillan MD Work Phone: 7(129)44[address]06-11-2024 09:44-0400 Heart rate65 /minPineda Santillan MD Work Phone: [facility]06-11-2024 09:44-0400 Systolic blood gzqkvucc675 mm[Hg]Pineda Santillan MD Work Phone: [facility]05-23-2024 09:21-0400 Body xmbput325.1 cmDO Ivan Ball Work Phone: [facility]05-23-2024 09:21-0400 Body mass index (BMI) [Ratio]25.4 kg/m2DO Ivan Ball Work Phone: [facility]05-23-2024 09:21-0400 Body jypdda16.45 kgDO Ivan Ball Work Phone: [facility]05-23-2024 09:21-0400 Diastolic blood yoywbayb39 mm[Hg]DO Ivan Ball Work Phone: [facility]05-23-2024 09:21-0400 Heart rate71 /minDO Ivan Ball Work Phone: [facility]05-23-2024 09:21-0400 Respiratory rate16 /minDO Ivan Ball Work Phone: 1(101)500-[address] [place], [place] 5153305-23-2024 09:21-0400 Systolic blood cgatxpye688 mm[Hg]DO Ivan Ball Work Phone: 1(566)42[address]05-22-2024 09:08-0400 Diastolic blood fyvmpykl29 mm[Hg]DO Ivan Ball Work Phone: 1(409)26173 [address]05-22-2024 09:08-0400 Heart rate63 /minDO Ivan Ball Work Phone: [phone])19[address]05-22-2024 09:08-0400 Respiratory rate20 /minDO Ivan Ball Work Phone: 1(284)[address] [place], [place] 0496205-22-2024 09:08-0400 SaO2% (BldA) [Mass fraction]95 %DO Ivan Ball Work Phone: 1(689)55273 [address]05-22-2024 09:08-0400 Systolic blood neefplpx437 mm[Hg]DO Ivan Ball Work Phone: 1(863)26[address]05-22-2024 07:55-0400 Body .1 cmDO Ivan Ball Work Phone: 1(042)99[address]05-22-2024 07:55-0400 Body ioblcsvoqbk18.2 [degF]DO Ivan Ball Work Phone: 1(765)79[address]05-22-2024 07:55-0400 Body vvnxud00.6 kgDO Ivan Ball Work Phone: 1(806)63673 [address]04-29-2024 10:23-0400 Diastolic blood hoxdwevt80 mm[Hg]Sulma Busby APRN-DOCK SUPERINTENDENT Work Phone: [facility]04-29-2024 10:23-0400 Systolic blood zoeweimu120 mm[Hg]Sulma Busby MARKETING RESEARCH INTERN-DOCK SUPERINTENDENT Work Phone: [facility]04-29-2024 10:18-0400 Body olrxhh333.1 cmDonna Busby MARKETING RESEARCH INTERN-DOCK SUPERINTENDENT Work Phone: [facility]04-29-2024 10:18-0400 Body mass index (BMI) [Ratio]24.63 kg/e9DgyqySulma Busby MARKETING RESEARCH INTERN-DOCK SUPERINTENDENT Work Phone: [facility]04-29-2024 10:18-0400 Body ycdlzc26.13 kgSulma Busby MARKETING RESEARCH INTERN-DOCK SUPERINTENDENT Work Phone: [facility]04-29-2024 10:18-0400 Heart rate68 /Tanya Busby MARKETING RESEARCH INTERN-DOCK SUPERINTENDENT Work Phone: [facility]04-18-2024 07:39-0400 Body khszobvnybn99.5 [degF]DO Ivan Ball Work Phone: [facility]04-18-2024 07:39-0400 Diastolic blood wukkqbzd72 mm[Hg]DO Ivan Ball Work Phone: 1([phone]04-18-2024 07:39-0400 Heart rate71 /minDO Ivan Ball Work Phone: 1([phone]04-18-2024 07:39-0400 Respiratory rate20 /minDO Ivan Ball Work Phone: [facility]04-18-2024 07:39-0400 SaO2% (BldA) [Mass fraction]98 %DO Ivan Ball Work Phone: [facility]04-18-2024 07:39-0400 Systolic blood goctluqp738 mm[Hg]DO Ivan Ball Work Phone: [facility]04-18-2024 04:32-0400 Body slemku09 kgDO Ivan Ball Work Phone: 1([phone]04-17-2024 12:31-0400 Body wituji623.1 cmDO Ivan Ball Work Phone: [phone]04-09-2024 08:59-0400 Diastolic blood ukxthxfv70 mm[Hg]Leyla [address] [place] [address] 11-10-2023 08:59-0400Heart rate61 /minEly [facility] 11-10-2023 08:59-0400Systolic blood axrvvnpq732 mm[Hg]Leyla [facility]03-19-2024 13:51-0400Body licnrq185.1 cm[facility]03-19-2024 13:51-0400Body mass index (BMI) [Ratio]25.2 kg/u9IoejvdsogSumma Health [facility]03-19-2024 13:51-0400Body onujpb62.94 kgSum[facility]03-19-2024 13:51-0400Diastolic blood jyhkwyla75 mm[Hg] [facility]03-19-2024 13:51-0400Heart rate60 /[facility]03-19-2024 13:51-0400Respiratory rate12 /[facility]03-19-2024 13:51-0400Systolic blood hnzipsyx926 mm[Hg] [facility]01-12-2024 09:15-0500Body exxmdr761.1 cm Ivan Ball Other [facility]01-12-2024 09:15-0500 Body mass index (BMI) [Ratio]26.56 kg/r3Ezlkwqtq Ball Other [facility] Other 01-12-2024 09:15-0500Body mafrfc59.39 kgBenjamin Ball Other [facility]01-12-2024 09:15-0500 Diastolic blood cobnmohi09 mm[Hg]Ivan Ball Other [facility]01-12-2024 09:15-0500 Respiratory rate12 /minBenjamin Ball Other [facility] Other 01-12-2024 09:15-0500Systolic blood utletlxw985 mm[Hg] Ivan Ball Other [facility]11-30-2023 11:00-0500 Body kzhvgu377.1 cmBenjamin Ball Other [facility] Other 11-30-2023 11:00-0500Body mass index (BMI) [Ratio] 25.96 kg/k5Tlqbqaki Ball Other [facility] Other 11-30-2023 11:00-0500Body wvqoid78.76 kgBenjamin Ball Other [facility] Other 11-30-2023 11:00-0500Diastolic blood qkorcyrp68 mm[Hg] Ivan Ball Other [facility] Other 11-30-2023 11:00-0500Respiratory rate12 /minBenjamin Ball Other [employer] Other 11-30-2023 11:00-0500Systolic blood mkgybffv168 mm[Hg] Ivan Ball Other [facility] Other 11-13-2023 09:14-0500Body ebtwme880.1 cmPineda Santillan MD Work Phone: [facility]11-13-2023 09:14-0500 Body mass index (BMI) [Ratio]25.96 kg/b0YkhrcfxPineda Santillan MD Work Phone: [facility]11-13-2023 09:14-0500 Body eddbzo24.76 kgPineda Santillan MD Work Phone: [facility]11-13-2023 09:14-0500 Diastolic blood nccedpeh34 mm[Hg]Pineda Santillan MD Work Phone: [facility]11-13-2023 09:14-0500 Heart rate62 /minPineda Santillan MD Work Phone: [facility]11-13-2023 09:14-0500 Systolic blood srtdvuqq479 mm[Hg]Pineda Santillan MD Work Phone: [facility]08-14-2023 15:15-0400 Body ftqryg675.1 cmBenjamin Ball Other [employer] Other 08-14-2023 15:15-0400Body mass index (BMI) [Ratio] 25.16 kg/e1Cloesila Ball Other [employer] Other 08-14-2023 15:15-0400Body oycuhf86.58 kgBenjamin Ball Other [employer] Other 08-14-2023 15:15-0400Diastolic blood scvmzauf07 mm[Hg] Ivan Ball Other [employer] Other 08-14-2023 15:15-0400Respiratory rate12 /minBenjamin Ball Other [employer] Other 08-14-2023 15:15-0400Systolic blood mlypplci242 mm[Hg] Ivan Ball Other [employer] Other 07-28-2023 14:00-0400Body .1 cmBenjamin Ball Other [employer] Other 07-28-2023 14:00-0400Body mass index (BMI) [Ratio] 25.39 kg/d9Hhhubrke Ball Other [employer] Other 07-28-2023 14:00-0400Body .22 kgBenjamin Ball Other [facility] Other 07-28-2023 14:00-0400Diastolic blood oqojgioq24 mm[Hg] Ivan Ball Other [employer] Other 07-28-2023 14:00-0400Respiratory rate12 /minBenjamin Ball Other [place] [employer] Other 07-28-2023 14:00-0400Systolic blood chudgayw473 mm[Hg] Ivan Ball Other [employer] Other 07-06-2023 12:11-0400Body .1 cmBenjamin E Ball Work Phone: mp951-1095RV-Ebaui [place] [employer] [address] DO Work Phone: 1(896) 467-587207-06-2023 12:11-0400Body mass index (BMI) [Ratio] 25.46 kg/q3Opdjhkld E Ball Work Phone: mp893-6118MD-Cdlkt [place] [employer] [address] DO Work Phone: 1(736) 935-436807-06-2023 12:11-0400Body surface area Derived from formula1.77 g4Upmuyjwv E Ball Work Phone: mp161-3876KA-Wovhp [place] [employer] 250 DO Work Phone: 1(158) 880-189707-06-2023 12:11-0400Body neilox72.4 kgBenjamin E Ball Work Phone: mp592-4156XU-Jfhkt [place] [employer] 250 DO Work Phone: 1(511) 835-387307-06-2023 12:11-0400Diastolic blood cyxikazb98 mm[Hg] Ivan E Ball Work Phone: mp927-0039CV-Kjtuv [place] [employer] 250 DO Work Phone: 1(362) 763-228807-06-2023 12:11-0400Heart rate60 /minBenjamin E Ball Work Phone: [phone]-Yqvwn [facility] [address] DO Work Phone: 1(604) 525-349707-06-2023 12:11-0400Systolic blood ovgnpnth886 mm[Hg] Ivan E Ball Work Phone: mp647-3085UW-Gukwd [facility] [address] DO Work Phone: 1(234) 826-664006-27-2023 10:45-0400Body werxay090.1 cmBenjamin Ball Other [employer] Other 06-27-2023 10:45-0400Body mass index (BMI) [Ratio] 25.49 kg/k2Uttkznot Ball Other [facility] Other 06-27-2023 10:45-0400Body goxreu53.49 kgBenjamin Ball Other [employer] Other 06-27-2023 10:45-0400Diastolic blood nwdigdwl72 mm[Hg] Ivan Ball Other [place] [employer] Other 06-27-2023 10:45-0400Respiratory rate12 /minBenjamin Ball Other [facility] Other 06-27-2023 10:45-0400Systolic blood bagtusav775 mm[Hg] Ivan Ball Other [employer] Other 06-16-2023 12:00-0400Body fcwmonxpuii66.5 [degF]DO Chaitanya Lu Work Phone: [facility]06-16-2023 12:00-0400 Diastolic blood wideuyoh50 mm[Hg]DO Chaitanya Lu Work Phone: [facility]06-16-2023 12:00-0400 Heart rate67 /minDO Chaitanya Lu Work Phone: [facility]06-16-2023 12:00-0400 Respiratory rate20 /Ryland Lu Work Phone: [facility]06-16-2023 12:00-0400 SaO2% (BldA) [Mass fraction]97 %DO Chaitanya Lu Work Phone: [facility]06-16-2023 12:00-0400 Systolic blood dbuslwso649 mm[Hg]DO Chaitanya Lu Work Phone: [facility]06-16-2023 04:31-0400 Body zubagr38.1 kgDO Chaitanya Lu Work Phone: [phone]06-15-2023 15:08-0400 45 1Benjamin E Ball Work Phone: 1(177) [phone]-Xfijr [facility] 250 DO Work Phone: Comment on above:[id number] 10:45-0400Body .72 cmDO Chaitanya Lu Work Phone: [facility]06-14-2023 15:37-0400 Inhaled oxygen flow rate2 L/Ryland Lu Work Phone: [facility]06-14-2023 11:00-0400 Inhaled oxygen flow rate4 L/Ryland Lu Work Phone: [facility]06-14-2023 09:19-0400 Diastolic blood mm[Hg]DO Chaitanya Lu Work Phone: [facility]06-14-2023 09:19-0400 Heart rate74 /Ryland Lu Work Phone: [facility]06-14-2023 09:19-0400 SaO2% (BldA) [Mass fraction]97 %DO Chaitanya Lu Work Phone: [address] [place], [place] 0324006-14-2023 09:19-0400 Systolic blood nuignqnj662 mm[Hg]DO Chaitanya Lu Work Phone: [facility]06-14-2023 09:15-0400 Body wizibagluyx54.7 [degF]DO Chaitanya Lu Work Phone: [facility]06-14-2023 09:14-0400 Respiratory rate20 /minDO Chaitanya Lu Work Phone: [facility]06-14-2023 09:07-0400 Body zclija521.1 cmDO Chaitanya Lu Work Phone: [facility]06-14-2023 09:07-0400 Body ullyym19 kgDO Chaitanya Lu Work Phone: [facility]02-15-2023 12:00-0500 Body qokfbj790.1 cmBenjamonty Ball Other [employer] Other 02-15-2023 12:00-0500Body mass index (BMI) [Ratio] 26.12 kg/y4Ntjckvlg Ball Other [facility] Other 02-15-2023 12:00-0500Body xsaayx83.22 kgBenjamin Ball Other [facility] Other 02-15-2023 12:00-0500Diastolic blood kqoxcxln87 mm[Hg] Ivan Ball Other [employer] Other 02-15-2023 12:00-0500Respiratory rate12 /minBenjamin Ball Other [employer] Other 02-15-2023 12:00-0500Systolic blood ogwbttdl224 mm[Hg] Ivan Ball Other [employer] Other 11-02-2022 17:32-0400Body xyeijd990.1 cmBenjamin E Ball Work Phone: mp276-8386GB-Xjvnk [facility] [address] DO Work Phone: 1(969) [phone] 17:32-0400Body mass index (BMI) [Ratio] 26.13 kg/p4Bfekjdbm E Ball Work Phone: mp606-5694YE-[facility] 250 DO Work Phone: 1(878) 823-183011-02-2022 17:32-0400Body surface area Derived from formula1.78 m1Zgbshonn E Ball Work Phone: mp114-6971KX-DbjjdR[facility]-[place] 250 DO Work Phone: 1(160) 417-334411-02-2022 17:32-0400Body mnamvo82.22 kgBenjamin E Ball Work Phone: mp559-8899MW-NzucgR[facility]-[place] 250 DO Work Phone: 1(552)[phone]-5758 17:32-0400Diastolic blood psjscuum51 mm[Hg] Ivan E Ball Work Phone: mp261-6202QD-[facility]yyraR[facility]-[place] 250 DO Work Phone: 1(384) 452-354211-02-2022 17:32-0400Heart rate72 /minBenjamin E Ball Work Phone: mp956-1193GM-Xjdji [facility] [address] DO Work Phone: 1(344)623-00078-115303-27632682-45-1095 17:32-0400Systolic blood hnhislrr907 mm[Hg] Ivan E Ball Work Phone: mp779-7111IQ-Fuqnr [facility] 250 DO Work Phone: 1(866) 212-619111-02-2022 15:21-0400Body guqtxj934.1 cmBenjamin E Ball Work Phone: mp376-9050AK-Rqnui [facility] 250 DO Work Phone: 1(798) 148-539211-02-2022 15:21-0400Body mass index (BMI) [Ratio] 26.13 kg/r4Qqxdiaog E Ball Work Phone: mp947-8197FW-Lqkqg [facility] 250 DO Work Phone: 1(345) 592-311811-02-2022 15:21-0400Body surface area Derived from formula1.78 i8Qlewpodu E Ball Work Phone: mp098-5734ZB-Wnrek [facility] 250 DO Work Phone: 1(992) 820-649311-02-2022 15:21-0400Body ubzddo65.22 kgBenjamin E Ball Work Phone: mp542-6804EY-Fgpea [facility] 250 DO Work Phone: 1(130) [phone] 15:21-0400Diastolic blood gsggceus71 mm[Hg] Ivan E Ball Work Phone: mp652-2403TC-Iwlrk [facility] 250 DO Work Phone: 1(144) [phone] 15:21-0400Heart rate72 /minBenjamin E Ball Work Phone: mp018-3397KP-Xavfy [facility] 250 DO Work Phone: 1(756) 449-403911-02-2022 15:-0400Systolic blood fvcxnark477 mm[Hg] Ivan E Ball Work Phone: mp879-7477YT-[facility]cevuSt. [facility] 250 DO Work Phone: Encounters Encounter DateEncounter TypeCare ProviderFacilityStart: 05-31-2025 End: 08-79-7217Mjcliw Sheri CAMPBELL Work Phone: [facility] [place] [facility]icsStart: 05-31-2025 End: 35-38-0890Fmwcxf flowsAndra CAMPBELL Work Phone: [facility] [place] [facility]opaedicsStart: 05-31-2025 End: 81-34-4692fmhsrvyjikTHQLMPE J MEYERNot AvailableStart: 05-31-2025 End: 91-03-3711Haskzp outpatient visit 15 minutesMaerick CAMPBELL Work Phone: [facility] OrthopaedicsComment on above:History of total right hip replacement (Primary Dx); Acute right hip pain; Right hip painStart: 05-29-2025 End: 40-77-4276Jndfpm outpatient visit 15 minutesRichard A Visci DO Work Phone: [facility] [place] OBGYNComment on above:Pessary maintenance (Primary Dx); Cystocele with rectocele; Vaginal atrophy; Granulation tissueStart: 05-29-2025 End: 29-75-8610xwbwwuzkhzZXYOTVF A VISCINot AvailableStart: 05-15-2025 End: 03-65-9677rtcofkfvmuTmsckxmf Mary Lou DO Work Phone: [facility] Work Phone: Start: 05-15-2025 End: 60-99-8984Gxkdtiz encounter procedureBensadimonty Barreto DO-[facility] Work Phone: Start: 05-08-2025 End: 50-99-2398Cihgwi flowsheetSteven A Rusher DPM Work Phone: [facility] PodiatryStart: 05-08-2025 End: 23-87-0887Disqnm flowsheetSteven A Rusher DPM Work Phone: [facility] [place] PodiatryStart: 05-08-2025 End: 86-27-2235Czpzfgp encounter procedureSteven A Rusher DPM Work Phone: no[facility] PodiatryComment on above:Dermatophytosis of nail (Primary Dx); Dystrophic nail; Pain around toenail, right foot; Pain around toenail, left footStart: 05-08-2025 End: 49-75-3643pofrduvcesWJTDSA A RUSHERNot AvailableStart: 04-11-2025 End: 68-47-8823phqflglilrSSWSH K [facility] AmbulatoryStart: 04-11-2025 End: 28-74-3009Abwyjh outpatient visit 25 minutesSulma Busby APRN-DOCK SUPERINTENDENT Work Phone: [facility] on above:Two-vessel coronary artery disease (Primary Dx); ASCVD (arteriosclerotic cardiovascular disease); Essential hypertension; Mixed hyperlipidemia; Mild aortic stenosis; BMI 24.0-24.9, adult; Congestive heart failure, NYHA class 2 and ACC/AHA stage CStart: 74-70-8704Rgc- patient / Non-visitMoshirley Ndiaye MD-[facility] Work Phone: Start: 02-24-2025 End: 61-21-9140jrawgiqeraKatmrmai Ball DO Work Phone: [facility] Work Phone: Start: 02-24-2025 End: 91-02-1840Mdjabkp encounter procedureBensadimonty Barreto DO-[facility] Work Phone: Start: 90-51-6811Ikq-patient / Non-visitCatherine Florian JIMENEZ-[facility] Work Phone: Start: 70-06-9529Xhb-patient / Non-visitAdam Ela [facility] Work Phone: Start: 02-09-2025 End: 03-36-0115dwbfabmbgrTkdmjbl AkilFacility:[facility] Start: 02-09-2025 End: 77-92-7256Phjumpzyfs and management of inpatientMosergey Oliveira MD-[facility] Work Phone: Start: 02-09-2025 End: 30-82-7784dbffwybonlg encounterBenleonardo Barreto DO Work Phone: [facility] Work Phone: Start: 02-06-2025 End: 37-89-0898aglaiffwzeAaitotuh Ball DO Work Phone: [facility] Work Phone: Start: 02-06-2025 End: 96-30-7777Eszkjyq encounter procedureBensadimonty Barreto DO-[facility] Work Phone: Start: 67-93-8180Uif-patient / Non-visitCatherine Florian [facility] Work Phone: Start: 02-03-2025 End: 35-10-9713Xosklcyts department patient visitIvan Barreto DO Work Phone: [phone]-Mkwuvinjw Room Work Phone: Start: 01-30-2025 End: 39-37-4605Dwuckd flowsheetSteven A Rusher DPM Work Phone: [facility] PODIATRYStart: 01-30-2025 End: 64-19-6067Dvorvq flowsheetSteven A Rusher DPM Work Phone: [facility] PODIATRYStart: 01-30-2025 End: 61-60-3769Iddrbmc encounter procedureSteven A Rusher DPM Work Phone: noms PODIATRYComment on above:Dermatophytosis of nail (Primary Dx); Dystrophic nail; Pain around toenail, right foot; Pain around toenail, left footStart: 01-30-2025 End: 69-56-6812hdemhnxdvkTQWBJP A RUSHERNot AvailableStart: 01-26-2025 End: 60-49-4029Yzpmox outpatient visit 15 minutesJamia Ndiaye MD Work Phone: [facility]healthComment on above:Orthostatic hypotension (Primary Dx); Essential hypertension; Palpitations; Never smoked cigarettes; BMI 24.0-24.9, adult; WeaknessStart: 01-26-2025 End: 94-79-8646dinmomyxpqEYVXZVW [facility] AmbulatoryStart: 01-25-2025 End: 87-86-1331quegjxoukqNYPUPBC A VISCINot AvailableStart: 01-25-2025 End: 30-67-9842Cqobez outpatient visit 15 minutesRichabigail Starks Visci DO Work Phone: [facility] OBComment on above:Pessary maintenance; Cystocele with rectocele; Urethral caruncle; Vaginal atrophyStart: 01-10-2025 End: 92-28-0322Xovbvc flowsheetCelina CAMPBELL Work Phone: [facility] FB ORTHOPAEDICSStart: 01-10-2025 End: 96-47-7787Oldfla flowsAndra CAMPBELL Work Phone: noms FB ORTHOPAEDICSStart: 01-10-2025 End: 87-60-3425Lfczor outpatient visit 15 minutesMaerick CAMPBELL Work Phone: noms FB ORTHOPAEDICSComment on above:Arthritis of right knee (Primary Dx); Acute pain of right kneeStart: 01-10-2025 End: 16-96-7278fazdabbckxYWCNSPU J MEYERNot AvailableStart: 12-12-2024 End: 33-10-4399uxsxxjfgnrJakuvnrh Ball DO Work Phone: [facility] Work Phone: Start: 12-12-2024 End: 85-22-7555Ayznzid encounter procedureBenjamin Ball DO Work Phone: [facility] Work Phone: Start: 12-09-2024 End: 55-80-3911Gowdbreuphsw care manage srvc 7 day dischargeMoshirley Ndiaye MD Work Phone: uh [facility] PointComment on above:Two-vessel coronary artery disease (Primary Dx); Mixed hyperlipidemia; Mild aortic stenosis; History of PTCA; Essential hypertension; NSTEMI (non-ST elevated myocardial infarction) (Multi); Congestive heart failure, NYHA class 2 and ACC/AHA stage C; BMI 25.0-25.9,adult; Never smoked cigarettesStart: 12-09-2024 End: 72-20-7953lmanpficspAGMTRMUDoctors Hospital of Augusta AmbulatoryStart: 80-29-8918sxvubvslheQxvpqvs R WATERSFacility:EU BellevueStart: 62-93-5701Dgz- patient / Non-visitBenjamin Ball DO Work Phone: [facility] Work Phone: Start: 11-29-2024 End: 34-08-5942Vhvdzuuoh for other preprocedural examinationNIR Young [facility] Hospitaltart: 11-29-2024 End: 35-77-8236Mwawgevyn for preprocedural cardiovascular examinationJAMIA NDIAYEParma Community General Hospitaltart: 11-29-2024 End: 18-34-6560Ckkvwalutb and management of inpatientFahad B Tee SAMS Work Phone: [facility] 8 Cardiac Intensive Care Comment on above:NSTEMI (non-ST elevated myocardial infarction) (Multi) (Primary Dx); Preop cardiovascular exam; Encounter for follow-up examination after completed treatment for conditions other than malignant neoplasm; Encounter for other preprocedural examination; Acute coronary microvascular dysfunction (Multi); Angina pectoris, unspecified; Essential hypertensionStart: 11-29-2024 End: 27-61-4582Jsjyyng encounter statusFavidhi De La Cruz MD Work Phone: [facility] Work Phone: Start: 11-29-2024 End: 75-78-5541jforzxthtfDdtcwkn R WATERSFacility:CD:[id number]: 11-28-2024 Evaluation and management of inpatientFAHAD B AbrahamSt. Mary's Medical Centertart: 11-25-2024 End: 28-05-3544Zzfdkjduyb and management of inpatientBenjamin Ball DO Work Phone: [facility] [place] [facility] Work Phone: Start: 15-57-2053Jly-patient / Non-visitBenjamin Ball DO Work Phone: [facility] Professional [facility] Work Phone: Start: 10-26-2024 End: 77-98-2489Eemhug outpatient visit 25 minutesMoshirley Ndiaye MD Work Phone: [facility] HospitallandsComment on above:Two-vessel coronary artery disease (Primary Dx); ASCVD (arteriosclerotic cardiovascular disease); Mixed hyperlipidemia; Mild aortic stenosis; History of PTCA; Essential hypertension; Congestive heart failure, NYHA class 2 and ACC/AHA stage C; BMI 24.0-24.9, adult; Never smoked cigarettesStart: 10-26-2024 End: 32-66-1181hqnyzmluqlNISWOIKDoctors Hospital of Augusta AmbulatoryStart: 10-18-2024 End: 00-34-6209borzntkrbtDqhthmmssUniversity Hospitals Cleveland Medical Center Work Phone: Start: 10-18-2024 End: 50-51-3172Qqormbh encounter procedureC[facility] Work Phone: Start: 10-10-2024 End: 97-93-6239Xgqqnaf encounter procedureSjillian Weir DP Work Phone: noms PODIATRYComment on above:Dermatophytosis of nail (Primary Dx); Dystrophic nail; Pain around toenail, right foot; Pain around toenail, left footStart: 10-10-2024 End: 52-31-4063womuemujthVLZUNW A RUSHERNot AvailableStart: 09-28-2024 End: 81-37-4213Yyggjk outpatient visit 15 minutesRichard A Visci DO Work Phone: noms [facility] OBComment on above:Pessary maintenance; Cystocele with rectocele; Urethral caruncle; Vaginal atrophy; Vulvar irritationStart: 09-28-2024 End: 63-05-8849cmspxdvzafEYHCNDP A VISCINot AvailableStart: 09-09-2024 End: 68-85-5383qtjbhuczefVulqcdmzhUniversity Hospitals Cleveland Medical Center Work Phone: Start: 09-09-2024 End: 06-08-7321Mwkfczs encounter procedureC[facility] Work Phone: Start: 09-07-2024 End: 19-36-8909Dujksk Himanshu Davenport [facility]-A Work Phone: noms CI AUDStart: 09-07-2024 End: 67-53-0921Bfyuwh flowsheetLisa LopezLewisGale Hospital Pulaski-A Work Phone: noms CI AUDStart: 09-07-2024 End: 97-87-9432Lzjbojkr SupportLisa Davenport [facility]-A Work Phone: noms CI AUDComment on above:Bilateral impacted cerumen (Primary Dx)Start: 07-19-2024 End: 38-54-1306Kfdwcsj encounter procedureC[facility] Work Phone: Start: 80-26-3804Kuz-patient / Non-visitC[facility] Health [facility] Professional Co Work Phone: Start: 82-39-3638tszqhcmcmwVCQRCLahey Medical Center, Peabodytart: 07-01-2024 End: 05-44-2233Qsynyii encounter procedureCone Health [facility] Phys[facility] GroupSumma Health [facility] Work Phone: Start: 04-39-3604Ymaslnz encounter procedureOhioHealth Berger Hospitaltart: 06-27-2024 End: 48-81-9883Mrbfnq flowsheetSteven A Rusher DPM Work Phone: noms PODIATRYStart: 06-27-2024 End: 19-53-8608Yzpcbu flowsheetSteven A Rusher DPM Work Phone: noms PODIATRYStart: 06-27-2024 End: 03-26-8722hxqkkahreeEHONJH A RUSHERNot AvailableStart: 06-27-2024 End: 31-77-4864Zlkhvdk encounter procedureSteven A Rusher DPM Work Phone: noms PODIATRYComment on above:Dermatophytosis of nail (Primary Dx); Dystrophic nail; Pain around toenail, right foot; Pain around toenail, left footStart: 06-24-2024 End: 03-61-7825pfzcvalvxqKVMWKStroud Regional Medical Center – [facility] PPGStart: 77-43-2505Isi-patient / Non-visitFircincinnatis Physician Group-[facility] Work Phone: Start: 29-00-4593ykryxffyiqQHGVCMarshfield Clinic Hospital HospitalStart: 05-31-2024 End: 52-69-7105Kuhlua flowsheetGonzález Suazo DO Work Phone: noms CI ORTHOPAEDICSStart: 05-31-2024 End: 06-66-7985Zpbblu flowsheetGonzález Suazo DO Work Phone: noms CI ORTHOPAEDICSStart: 05-31-2024 End: 24-23-1098Kbxcxg outpatient visit 10 minutesGonzález Starks Lakeisha DO Work Phone: noms CI ORTHOPAEDICSComment on above:Status post right hip replacement; Primary osteoarthritis of right hipStart: 05-30-2024 End: 93-84-9105Lwbipaetnebcpm system normalJamia Ndiaye MD Work Phone: [facility] Work Phone: Start: 01-09-8667Laynjrlky for preprocedural cardiovascular examinationSelect Medical [facility] [place] Start: 05-30-2024 End: 49-39-2075Eeeikh outpatient visit 25 minutesJamia Ndiaye MD Work Phone: [facility] CenterComment on above:Pre-operative cardiovascular examination (Primary Dx); ASCVD (arteriosclerotic cardiovascular disease); Two-vessel coronary artery disease; Mixed hyperlipidemia; Mild aortic stenosis; History of PTCA; Essential hypertension; Never smoked cigarettes; BMI 24.0-24.9, adultStart: 05-30-2024 End: 88-43-1834Giahgyp encounter statusJamia Ndiaye MD Work Phone: [facility] HospitalStart: 05-30-2024 End: 10-64-1052jwemiyjjueQVTAYLV TRABOULCarl R. Darnall Army Medical Center AmbulatoryStart: 05-30-2024 End: 54-14-3733Gquumqinr for preprocedural cardiovascular examinationNorthside Hospital Forsyth AmbulatoryStart: 05-27-2024 End: 85-05-6776ljowofodzmCtiymwjxoUniversity Hospitals Cleveland Medical Center Work Phone: Start: 05-27-2024 End: 74-07-6482Djhirxg encounter procedureC[facility] Work Phone: Start: 85-13-8094afmzagpqolMWZZWRFJJewish Healthcare Center Ambulatory PPGStart: 51-66-4413bvcljkpzxiIJCXOLahey Medical Center, Peabodytart: 05-26-2024 End: 69-61-4868Mytptl outpatient new 45 minutesRamone Perkins MD Work Phone: [facility] Orthopedic and Spine SurgeonsComment on above:Spondylolisthesis of lumbar region (Primary Dx); Lumbar spine painStart: 05-26-2024 End: 31-14-7495vjoyyorxvfNKYXDPawnee County Memorial Hospital Ambulatory PPGStart: 91-07-5527olitxoedxjGBAHUPawnee County Memorial Hospital Ambulatory PPGStart: 05-25-2024 End: 83-36-9679Tglsie flowsheetRichard A Visci DO Work Phone: noms [facility] OBStart: 05-25-2024 End: 03-78-1477Cwafwv flowsheetRichard A Visci DO Work Phone: noms [facility] OBStart: 05-25-2024 End: 83-91-0455Czemjv outpatient visit 15 minutesRichard A Visci DO Work Phone: noms [facility] OBComment on above:Pessary maintenance; Cystocele with rectocele; Urethral caruncle; Vaginal atrophyStart: 20-72-2459eutbjfhciuBkwulnp R WATERSFacility:EU [place] Start: 84-23-5221cbmessayifAFPBNPVDJewish Healthcare Center Ambulatory PPG Start: 05-17-2024 End: 22-16-7369Grusoedrr encounterBeth Noah RNNOMS CI ORTHOPAEDICSComment on above:mriStart: 05-10-2024 End: 27-75-1091Mfhbzy flowsheetGonzález Suazo DO Work Phone: NOMS CI ORTHOPAEDICSStart: 05-10-2024 End: 42-69-4981Rvwbpo flowsheetGonzález Suazo DO Work Phone: NOMS CI ORTHOPAEDICSStart: 05-10-2024 End: 46-31-8181Bvwfxw outpatient visit 25 minutesGonzález Suazo DO Work Phone: NOPA CI ORTHOPAEDICSComment on above:Chronic low back pain with right-sided sciatica, unspecified back pain laterality (Primary Dx); Lumbar spine pain; Trigger pointStart: 05-06-2024 End: 01-54-4916ngqaelkcknRKTJRSC E HOGANFort Hamilton Hospital HospitalStart: 05-03-2024 End: 39-91-7224intjobpqkkDQDAEXDD M NIENBERGFort Hamilton Hospital HospitalStart: 05-02-2024 End: 88-22-7831Cwcegouyx encounterDevin Birmingham NP Work Phone: NOMS CI ORTHOPAEDICSComment on above:injectionStart: 04-29-2024 End: 83-65-8363Zcqpvh Tete Birmingham NP Work Phone: NOMS ORTHOStart: 04-29-2024 End: 06-54-6672Hlwaxv Tete Birmingham FRAMER Work Phone: NOMS ORTHOStart: 04-29-2024 End: 50-97-2474Cslfiu outpatient visit 25 minutesDevin Birmingham FRAMER Work Phone: NOMS PCF ORTHOComment on above:DDD (degenerative disc disease), lumbar (Primary Dx); Chronic low back pain with right-sided sciatica, unspecified back pain laterality; Trigger pointStart: 71-84-9376ejyevxcydtUnepouv R WATERSFacility:ETHEL Sargent Start: 04-25-2024 End: 56-84-1065aydvsqxermDD Jordan Wisdom Work Phone: [facility] Work Phone: Start: 04-25-2024 End: 33-54-6036Xzqlixu encounter procedureDO Jordan Wisdom Work Phone: [facility] Work Phone: Start: 04-12-2024 End: 50-57-0904bvscdtypxuRJ Jordan Wisdom Work Phone: [facility] Work Phone: Start: 04-12-2024 End: 68-40-5862Aeuwipk encounter procedureDO Jordan Wisdom Work Phone: [facility] Work Phone: Start: 63-26-4627Nks-patient / Non-visitDO Jordan Wisdom Work Phone: [facility] Work Phone: Start: 03-28-2024 End: 96-96-1438Dnusng flowsheetSteven A Rusher DPM Work Phone: noms PODIATRYStart: 03-28-2024 End: 58-62-3184Eegwdu flowsheetSteven A Rusher DPM Work Phone: noms PODIATRYStart: 03-28-2024 End: 05-12-4224Nltxnbm encounter procedureSteven A Rusher DPM Work Phone: noms PODIATRYComment on above:Dermatophytosis of nail (Primary Dx); Dystrophic nail; Pain around toenail, right foot; Pain around toenail, left footStart: 03-02-2024 End: 46-90-9290jlnhfpsbkjWX Ivan Barreto Work Phone: [facility] Work Phone: Start: 03-02-2024 End: 68-97-8909Uejirvx encounter procedureDO Ivan Barreto Work Phone: [facility] Work Phone: Start: 03-01-2024 End: 46-62-4973legvyiejulAutfsgs R WATERSFacility:EU [place]uskyStart: 03-01-2024 End: 68-96-6465Wawlnee encounter procedurePatricmarisela Santiago SYL [facility] Start: 02-24-2024 End: 37-66-1834pccsoazmwnHD Ivan Barreto Work Phone: [facility] Work Phone: Start: 02-24-2024 End: 78-78-4262Rgrizsue ReferredDO Ivan Barreto Work Phone: [facility]-Lab Main [place] Work Phone: Start: 02-18-2024 End: 08-85-0141Vxm-admission assessmentPaty Santiago SYL [facility] Start: 42-68-4516wgyaozohdbIfsath J GaleaFacility:EU [place]uskyStart: 02-08-2024 End: 83-83-8510mjlhsvmcmxAjokos J GaleaFacility:EU IrlandakStart: 02-08-2024 End: 19-30-8546Ctpukzn encounter procedureAlysha J Galzeynep [facility] [employer] Start: 01-29-2024 End: 98-44-4780lrpukvxcrhDK Ivan Barreto Work Phone: [facility] Work Phone: Start: 01-29-2024 End: 27-09-3936Udyqqbx encounter procedureDO Ivan Barreto Work Phone: [facility] Work Phone: Start: 01-12-2024 End: 28-13-8403Rcqewv outpatient visit 25 minutesPineda Santillan MD Work Phone: uh [facility] on above:Essential hypertension (Primary Dx); ASCVD (arteriosclerotic cardiovascular disease); Mixed hyperlipidemia; History of PTCA; Never smoked cigarettesStart: 01-07-2024 End: 64-09-4754zthqcvunbsJY Ivan Barreto Work Phone: [facility] Work Phone: Start: 01-07-2024 End: 15-38-5656Adaqsyh encounter procedureDO Ivan Barreto Work Phone: [facility]-Electrodiagnostics Work Phone: Start: 12-24-2023 End: 20-31-8771zgmdldxyueXM Ivan Barreto Work Phone: [facility] Work Phone: Start: 12-24-2023 End: 43-77-2067Mmfideq encounter procedureDO Ivan Barreto Work Phone: [facility] Work Phone: Start: 12-23-2023 End: 44-76-2762Vqsmojsgh department patient visitDO Ivan Barreto Work Phone: [facility]-Emergency Room Work Phone: Start: 65-34-2736Qps-patient / Non-visitDO Ivan Barreto Work Phone: [facility] Work Phone: Start: 11-30-2023 End: 11-62-1889Yfrgmf outpatient visit 15 minutesSulma Busby APRN-DOCK SUPERINTENDENT Work Phone: uh [facility] on above:Dysuria (Primary Dx); Congestive heart failure, NYHA class 2 and ACC/AHA stage C (Multi); Weakness; ASCVD (arteriosclerotic cardiovascular disease)Start: 22-44-6615Ufm-patient / Non-visitDO Ivan Barreto Work Phone: [facility] Work Phone: Start: 11-18-2023 End: 27-55-4287Evbxazdtx to same day surgery centerDO Ivan Barreto Work Phone: [facility]-Retail [employer] Sales Representative Work Phone: Start: 11-18-2023 End: 03-41-1093qfutupmvdoLZ Ivan Barreto Work Phone: [facility] Work Phone: Start: 11-16-2023 End: 82-77-7108difcugdkztTQ Ivan Barreto Work Phone: [facility] Work Phone: Start: 11-16-2023 End: 71-01-4032Cacbzxt encounter procedureDO Ivan Barreto Work Phone: [facility] Irv-Vld-Cmgmgyks Testing Work Phone: Start: 11-10-2023 End: 13-83-5910Omcpisuahb hospital visit by Drew Strauss Admin [facility] 1[facility] on above:ASCVD (arteriosclerotic cardiovascular disease); Chest tightness; Shortness of breathStart: 10-27-2023 End: 11-68-8348unblntefwlFZYCQYB S NIENBERGProMedica Little Company of Mary Hospitaltart: 10-20-2023 End: 66-49-9717vvrwagzbjlXmwceaaqm [facility] Work Phone: Start: 10-20-2023 End: 71-95-9614Iegqkzg encounter procedureBeatrice [facility] Work Phone: Start: 08-14-2023 End: 89-59-7745bckisbvnikBqlmudjl Ball Other [facility] OndaVia Other Start: 87-47-4607Gvomqr outpatient visit 15 minutes Ivan Barreto Medical ClinicStart: 08-14-2023 End: 58-07-0395Cnxjdeh encounter procedureFirelands Physician [facility] Work Phone: Start: 07-02-2023 End: 83-30-5678fizznjoetxXcrzflfi Ball Other noGetYou betNOW Other Start: 61-53-4323Yuegdsz encounter procedureBenleonardo Barreto Medical ClinicStart: 07-01-2023 End: 05-81-8302mwwrhfjupcQjqsasbu Ball Other noGetYou betNOW Other Start: 47-66-0730Ryzocwqsh encounterBenleonardo Barreto Medical ClinicStart: 06-15-2023 End: 55-37-7462Amgyny outpatient visit 25 minutesPineda Santillan MD Work Phone: [facility] on above:ASCVD (arteriosclerotic cardiovascular disease) (Primary Dx); Essential hypertension; Mixed hyperlipidemia; Congestive heart failure, NYHA class 2 and ACC/AHA stage C (CMS/HCC); History of PTCAStart: 06-10-2023 End: 42-04-4923arsgfmiwmhZbhuzisa Ball Other noGetYou betNOW Other Start: 82-27-1113Bvwczfbdg encounterBenleonardo Barreto Medical ClinicStart: 05-17-2023 End: 50-57-7391fhncpuxwfzJylgsiev Ball Other noGetYou betNOW Other start: 44-62-6450Ksuhxskvr encounterBenleonardo Barreto Medical ClinicStart: 05-15-2023 End: 99-89-2482ryayyviebmFzapgdfh Ball Other noGetYou betNOW Other Start: 21-82-2611Zyaycwmss encounterBenjamin BallFPG [facility] ClinicStart: 05-14-2023 End: 50-33-5200jiuuskkofwTluggdfb Ball Other [facility] betNOW Other Start: 76-94-8312Cvaxdhfym encounterBenjamin BallFPG [facility] ClinicStart: 05-12-2023 End: 45-86-5507fuelxxfpudVhpwfvwa Ball Other [facility] betNOW Other Start: 23-93-1822Xjzimlqhd encounterBenjamin BallFPG [facility] ClinicStart: 03-23-2023 End: 69-09-0138yqdjmsyoffQhanxmls Ball Other [facility] betNOW Other Start: 77-80-7156Sedztxzuz encounterBenjamin BallFPG [facility] ClinicStart: 19-71-1423Ba RenewalBenjamin E Ball Work Phone: [phone]-Alyto [place] [employer] [address] DO Work Phone: Start: 03-16-2023 End: 08-57-4678cwdwtstkwcUrremhir Ball Other [facility] betNOW Other Start: 34-76-2484Fjxsxe outpatient visit 15 minutes Ivan BallFPG [facility] ClinicStart: 64-59-1624Umfuq UpdateBenjamin E Ball Work Phone: [phone]-Eozyr [place] [employer] 250 DO Work Phone: Start: 71-75-7007lflveyaeivYzKamaljit Santillan IIFacility:[id number]: 02-27-2023 End: 41-78-2736ivnwrbnojrLhbbewkm Ball Other [facility] betNOW Other Start: 35-31-2205Cqusyg outpatient visit 15 minutes Ivan BallFPG [facility] ClinicStart: 02-05-2023 End: 97-66-0855kgjcxsewjrUqwvsrrw Ball Other noMechio Other Start: 86-00-5490Sfnzhihmr encounterBenjamin BallFPG [facility] ClinicStart: 21-98-3929Pnpghy outpatient visit 25 minutesBenjamin E Ball Work Phone: [phone]-Qjgzt [place] [facility] [address] DO Work Phone: Start: 01-27-2023 End: 83-21-7361jliocdwyioKmhmapfd Ball Other noMechio Other Start: 80-81-3762Uueddrbxhjgt care manage srvc 14 day dischargeBensadimin BallFPG [facility] ClinicStart: 01-19-2023 End: 00-57-8623cnedtklwefVibkyfdn Ball Other noMechio Other Start: 89-72-0311Fyvrbtpmu encounterBensadimin BallFPG [facility] ClinicStart: 01-14-2023 End: 06-20-0179Ahafuckpuc and management of inpatientDO Chaitanya Cheryl Work Phone: [facility] [place] [facility] Work Phone: Start: 01-01-2023 End: 64-88-0628vgvudgfqdsBkuheiuw Ball Other noMechio Other Start: 51-66-8822Jiuklyiuq encounterBenjamin BallFPG [facility] ClinicStart: 94-32-4732Izilgicpf encounterBenjamin BallFPG [facility] ClinicStart: 12-03-2022 End: 71-14-7746mckhjppjsdZB WILLIAM MCGUINNNwestern missouri mental health center betNOW Other Start: 09-17-2022 End: 32-44-3795bkwxljqpmiChbmsfpf Ball Other noMechio Other Start: 05-55-5863Hzktij outpatient visit 25 minutes Ivan BarretoFPShanon Barreto Medical ClinicStart: 09-16-2022 End: 29-97-3508zrhcmylvbnBbvlhnlc Ball Other [facility] betNOW Other Start: 47-65-3052Hdnveenyp encounterBenjamonty OlveraG [facility] ClinicStart: 08-25-2022 End: 95-98-0239kquxiuqisbTbfjrnnn Ball Other [facility] betNOW Other Start: 14-80-0265Hudinbakr encounterBenleonardo OlveraG [facility] ClinicStart: 27-22-2696Xwlia health examinationBenleonardo Ball Other [facility] betNOW Other Start: 32-58-1772Ngvmplsqzdodr examination normal Ivan Barreto Other [facility] betNOW Other Start: 49-23-1495Qdfobl outpatient visit 15 minutes Ivan Barreto Work Phone: [phone]-BlomnChildren's [place] 250 DO Work Phone: Start: 05-21-2022 End: 71-09-5737imgtjycitjNV GREGORY KARASIK .Facility:Q8Mwzgc: 2022 End: 14-60-8818mcnfecvigaNF GREGORY KARASIK .Facility:V5Ensod: 05-05-2022 End: 96-79-8438Jjf-procedure evaluation checkBenleonardo Ball Other [facility] betNOW Other Start: 43-79-3137UlloobanjdAZAWF B SMITHFacility:1532 Start: 09-27-2010 End: 88-86-1769uneihdmgzqIggs Mathews Work Phone: pain ManagementComment on above:Patient Education Procedures DateProcedureProcedure DetailPerforming ClinicianStart: 40-52-6750Uslem hip unilateral with pelvis 2-3 viewsMaerick CAMPBELL Work Phone: Start: 37-34-6029Quhbh immunofixationBenjamin Ball DO Work Phone: Comment on above:No monoclonality detected.Start: 23-49-4219Jfmvo cultureBenjamin Ball DO Work Phone: Start: 88-43-3256XG of head without contrastBenjamin Ball DO Work Phone: Start: 77-74-8221Efpwgvgj tomography of abdomen and pelvis with contrastBenjamin Ball DO Work Phone: Start: 43-66-9518Pjlrc chest X-rayBenjamin Ball DO Work Phone: Start: 51-30-5686Klulv chest X-rayBenjamin Ball DO Work Phone: Start: 19-98-6959Qki routine ecg w/least 12 lds w/i&r Jamia Ndiaye MD Work Phone: Start: 80-41-5749Qcsnrfkjksufnn aspir&/inj major jt/bursa w/o usMattlalitha CAMPBELL Work Phone: Start: 09-26-8044Ctujwchgpj examination knee 1/2 views Celina CAMPBELL Work Phone: Start: 34-25-2590Jeb routine ecg w/least 12 lds trcg only w/o i&rRdiann Portillo MARKETING RESEARCH INTERN-DOCK SUPERINTENDENT Work Phone: Start: 47-53-1926Nwlst metabolic panel calcium total Nir Min MD Work Phone: Start: 02-87-5274Zoi routine ecg w/least 12 lds trcg only w/o i&Ashia Tejada MARKETING RESEARCH INTERN-DOCK SUPERINTENDENT Work Phone: Start: 03-57-4668Ckrnbjw catheterization studyRandall Carlos DelatorreMara MARKETING RESEARCH INTERN-DOCK SUPERINTENDENT Work Phone: Start: 08-59-1073Wbkfvdgbzwo time activatedNir Min MD Work Phone: Start: 44-56-6812Srl routine ecg w/least 12 lds trcg only w/o i&rRandall L Mara MARKETING RESEARCH INTERN-DOCK SUPERINTENDENT Work Phone: Start: 53-40-8985Uxity metabolic panel calcium total Nir Min MD Work Phone: Start: 50-84-8042Jll routine ecg w/least 12 lds trcg only w/o i&rRandall L Mara MARKETING RESEARCH INTERN-DOCK SUPERINTENDENT Work Phone: Start: 41-85-5298Ntanf metabolic panel calcium total Nir Min MD Work Phone: Start: 55-32-9047Yhovd count complete automated Valorie Marisela Florence MARKETING RESEARCH INTERN-DOCK SUPERINTENDENT Work Phone: Start: 44-40-3990Qkw routine ecg w/least 12 lds trcg only w/o i&rRmay Min MD Work Phone: Start: 98-59-0508Xytkz of troponin quantitativeNir Min MD Work Phone: Start: 92-52-1305Nwhvdof assayNir Min MD Work Phone: Start: 70-05-4715Tiosonj assayNir Min MD Work Phone: Start: 29-40-1535Dkaxwyj assayBritton Goodman MD Work Phone: Start: 67-16-3796ZRBND TUBESNir Min MD Work Phone: Start: 90-44-2136SKT TOPNir Min MD Work Phone: Start: 87-52-5856Txq routine ecg w/least 12 lds trcg only w/o i&rRandall Carlos Mara MARKETING RESEARCH INTERN-DOCK SUPERINTENDENT Work Phone: Start: 35-67-8074Ioescyiwxfksn metabolic panelRachel Carlos Laughlin MARKETING RESEARCH INTERN-DOCK SUPERINTENDENT Work Phone: Start: 66-72-9704SBFHH Shahla Goodman MD Work Phone: Start: 32-14-2005VGM TOPBritton Goodman MD Work Phone: Start: 74-84-7192MJTLQ Shahla Goodman MD Work Phone: Start: 08-83-5608Hoqfiygmsp microscopic panel - Urine Qualitative by AutomatedRapoppy Laughlin MARKETING RESEARCH INTERN-DOCK SUPERINTENDENT Work Phone: Start: 45-89-1368FINTV SLATER TUBERyan Maxine SAMS Work Phone: Start: 71-22-1054Ukueh dip stick/tablet reagent auto microscopyRachel Carlos Laughlin MARKETING RESEARCH INTERN-DOCK SUPERINTENDENT Work Phone: Start: 45-17-4526Tvmqgqe assayBritton Goodman MD Work Phone: Start: 59-99-3433Rw thorax w/o contrast materialRachel Carlos Laughlin MARKETING RESEARCH INTERN-DOCK SUPERINTENDENT Work Phone: Start: 36-59-9724Miv-scan xtr veins complete bilateral studyRachel Carlos Laughlin MARKETING RESEARCH INTERN-DOCK SUPERINTENDENT Work Phone: Start: 52-20-5636Nzlfgp scan extracranial art compl bi studyRachel Carlos Laughlin MARKETING RESEARCH INTERN-DOCK SUPERINTENDENT Work Phone: Start: 70-60-8357Wcgwipa assayBritton Goodman MD Work Phone: Start: 65-31-0227NT LHC & COR AngioBenjamin Ball DO Work Phone: Start: 02-01-8401Jkcevcks Ball DO Work Phone: Start: 06-69-9498Qwpoz chest X-rayBenleonardo Barreto [employer] Work Phone: Start: 13-46-0162Eum routine ecg w/least 12 lds w/i&r Jamia Ndiaye MD Work Phone: Start: 98-90-3352Twbzk hip unilateral with pelvis 2-3 viewsJakerry Suazo DO Work Phone: Start: 18-91-4413Riy routine ecg w/least 12 lds w/i&r Jamia Ndiaye MD Work Phone: Start: 06-26-3280Xfslgpmyk single/instructional paraprofessional trigger point 1/2 musclesJames A Lakeisha DO Work Phone: Start: 70-52-0545Cvyqhwodu single/instructional paraprofessional trigger point 1/2 musclesGrant T Birmingham FRAMER Work Phone: Start: 49-62-1112EvpkkbrclrLtpaplz Vivartes Start: 95-14-9558Hhagn cultureDO Ivan SpeakPhone Work Phone: Start: 70-25-7792Czdhvid of pessaryPatrick Vivartes Start: 65-62-3967Pjypg chest X-rayDO Jade Magnet Work Phone: Start: 59-97-0060VD Jade Magnet Work Phone: Start: 96-50-4631LZ Closure Device Placement 0DO Jade Magnet Work Phone: Start: 33-61-5182CV LHC & COR AngioDO Ivan SpeakPhone Work Phone: Start: 65-54-4431MO Stent 1st Vessel LAD DESDO Ivan SpeakPhone Work Phone: Start: 35-40-9312Sg strs tst xers&/or rx cont ecg trcshanon Santillan MD Work Phone: Start: 90-07-3224Lhstwpd of placement of stent for coronary artery diseaseHistory of heart artery stentSteven Destin DPM Work Phone: Start: 57-83-9416Fhvhupn of decompression of median nerveHistory of bilateral carpal tunnel releaseSteven Destin DPM Work Phone: Start: 60-07-0555Zexwojo of percutaneous transluminal coronary angioplastyHistory of PTCTaniya Santillan MD Work Phone: Start: 81-12-1035SD Closure Device Placement 0DO Chaitanya Lu Work Phone: Start: 11-44-2686HH LHC & COR AngioDO Chaitanya Lu Work Phone: Start: 31-73-0298NJ PCI AMI 1st Vessel CX DESDO Chaitanya Lu Work Phone: Start: 52-03-9431JK PTCA 1st Vessel LADDO Chaitanya Gregorioadela Work Phone: Start: 45-19-5634VB Chaitnaya Lu Work Phone: Start: 91-35-8971Knurygkox for malignant neoplasm of breastBenjamin Ball Other Start: 11-12-9173Advyp colonoscopyBenjamin E Ball Work Phone: AbdominoplastyBenjamin E Ball Work Phone: AbdominoplastyAlysha Galea BlepharoplastyBenjamin E Ball Work Phone: BlepharoplastyAlysha Galea Cardiac catheterizationBenjamin E Ball Work Phone: Cardiac catheterizationAlysha Galea Cataract surgeryBenjamin E Ball Work Phone: Cataract surgeryAlysha Galea Depression screeningBenleonardo Barreto Other History of percutaneous transluminal coronary angioplastyHistory of PTCABenjamin She Barreto Work Phone: History of percutaneous transluminal coronary angioplastyHistory of PTCTaniya Santillan MD Work Phone: History of percutaneous transluminal coronary angioplastyHistory of PTCAnel Ndiaye MD Work Phone: History of percutaneous transluminal coronary angioplastyHistory of PTCAnel Ndiaye MD Work Phone: History of percutaneous transluminal coronary angioplastyHistory of PTCAnel Ndiaye MD Work Phone: History of placement of stent for coronary artery diseaseHistory of heart artery stentDO Chaitanya Lu Work Phone: Percutaneous transluminal coronary angioplastyBenleonardo Barreto Work Phone: Total replacement of hipBenjamin E Ball Work Phone: Total replacement of hipAlysha Galea Plan of Treatment DateCare ActivityDetailAuthorStart: 88-38-9916Tjspyrfdmi measurementCreatinine [facility]: 63-57-8775Viaxjdef mellitus screeningDiabetes ScreeningUniversity [facility]als [facility]: 12-03-2025 Potassium measurementPotassium LevelUniversity Hospitals Lake West Medical Center: 47-05-8226ElpnlnlmydypmpqgXsoduwaqpcarlsDrbfktoxqn [facility] ClevelandStart: 11-22-2025 End: 93-60-4234Paulfrr encounter nxjhtmepn89/22/2026 3:20 PM EDT Office Visit [facility] [address] [place] [address] Jamia Ndiaye MD [address] [facility] 2, [address] [place], [place] [phone] [facility]: 09-27-2025 End: 98-78-0763Ilmqovq encounter xptovnomy56/25/2026 1:00 PM EST Office Visit [facility]KET[facility] [address] [place] [address] Jordan Wisdom DO [address] [place] [address] [facility] [place] OBGYNStart: 09-01-2025 End: 43-21-4972Hmlysyf encounter chgjfhibi79/30/2026 10:50 AM EST Office Visit [facility] [address] [facility] [address] [place] [address] Jamia Ndiaye MD [address] [facility] [address], [address] [place] [address] [facility] CenterStart: 08-21-2025 End: 57-06-0368Vysajhr encounter /19/2026 2:15 PM EST Procedure Visit [facility] [address] [place] [address] Yoselin Weir, DP [address] [address] YASMIN [facility] PodiatryStart: 06-07-2025 End: 83-42-6839Mpmxpaqg SupportNOMS CI AUDStart: 05-31-2025 End: 79-98-0238Acwagkf encounter procedureNOMS CI ORTHOPAEDICSStart: 05-29-2025 End: 39-86-8643Dkuvxkp encounter procedureNOMS SWS OBStart: 66-62-1436Jfybq BMI ScreeningAdult BMI ScreeningProClermont County Hospitalca Health SystemStart: 17-01-6990Hjtmezs ScreeningTobacco ScreeningProClermont County Hospitalca St[facility] SystemStart: 05-09-2025 End: 33-51-4481Ltehbed encounter djflogiqi35/07/2025 11:00 AM EDT Office Visit [facility] [address] [place] [place] [address] Celina Muñoz PA [address] [place] [address] NOMKristi ORTHOPAEDICSStart: 05-08-2025 End: 57-76-9479Qnfiicm encounter procedureNOMS FH PODIATRYComment on above: ArrivedStart: 04-07-2025 End: 47-55-0623Knnzxmr encounter kkhqmyjts41/05/2025 10:30 AM EDT Office Visit [place] [address] [facility] [address] [place] [address] Jamia Ndiaye MD [address] [facility] [address] [place] [address] [facility] CenterStart: 69-76-0278WIJXL-19 Vaccine ( season)COVID-19 Vaccine ( season)[facility] HospitalStart: 31-00-1712DBXLO-19 Vaccine ( season) COVID-19 Vaccine ( season)[facility] CenterStart: 78-62-3995Dmwfvfjbs vaccinationInfluenza Vaccine (#1)[facility] HospitalStart: 02-10-2025 End: 55-16-7103GxotcnbbwOhioHealth Berger Hospitaltart: 95-65-1178Yafmy culture [facility]tart: 31-62-3031Rjjqsbhz therapy procedure [facility]: 40-76-7061Cqmlvipv to neurologist [facility]tart: 02-01-8734Wlyqgvzd to occupational therapistOhioHealth Berger Hospitaltart: 98-42-6916Egdlpzaq admission [facility]: 02-09-2025 End: 68-09-3539UicupilmjOhioHealth Berger Hospitaltart: 01-30-2025 End: 78-97-9015Xfzjgqr encounter procedureNOMS FH PODIATRYComment on above: ArrivedStart: 01-25-2025 End: 43-49-5303Vdtrcmq encounter nvvexviow41/25/2025 11:00 AM EDT Office Visit [facility] [address] [place] [address] Jordan Wisdom, [address] [place] [address] NOMS SWS OBStart: 01-10-2025 End: 48-46-4556Bdhoqzv encounter ummctrswx38/10/2025 11:30 AM EDT Office Visit [facility] [address] [place] [address] Celina Muñoz, PA [address] [place], [place] [phone] Acute pain of right knee (Primary Dx)[facility] Comment on above:Acute pain of right knee (Primary Dx)Start: 01-06-2025 EchocardiographyEchocardiogramAvita Health System Ontario Hospitalart: 12-09-2024 End: 19-95-6262Vuxijru encounter wdxrzfyux37/09/2025 11:30 AM EDT Office Visit [facility] [address] [place] [address] Jamia Ndiaye MD [address], [address] [place] [address] [facility]: 98-48-1330DbwzzfxieOhioHealth Berger Hospitaltart: 00-01-8343PlglgdranDayton Children'S Hospital CenterStart: 45-47-0849ZhowqjmtpDayton Children'S Hospital CenterStart: 72-37-8591UkmvwnazzDayton Children'S Hospital CenterStart: 59-95-8679ZftouthqhDayton Children'S Hospital CenterStart: 11-25-2024 End: 72-54-9772RxaltldbqDayton Children'S Hospital CenterStart: 21-50-4707Nkwqkmph admissionOhioHealth Berger Hospitaltart: 99-44-9572Yqegccou to cardiologistOhioHealth Berger Hospitaltart: 59-99-4551Bagykesqvsi of Left Heart using Low Osmolar ContrastFluoroscopy of Left Heart using Low Osmolar ContrastOhioHealth Berger Hospitaltart: 26-84-0486Rtbigmdlhkl of Multiple Coronary Arteries using Low Osmolar ContrastFluoroscopy of Multiple Coronary Arteries using Low Osmolar ContrastSumma Health Akron Campus Start: 76-75-3645Obvhdsscctt of Cardiac Sampling and Pressure, Left Heart, Percutaneous ApproachMeasurement of Cardiac Sampling and Pressure, Left Heart, Percutaneous ApproachOhioHealth Berger Hospitaltart: 10-26-2024 End: 19-45-5975Fnpfhis aminotransferase [Enzymatic activity/volume] in Serum or Plasma by With P-5'-PAlanine Aminotransferase Lab Routine ASCVD (arteriosclerotic cardiovascular disease) Mixed hyperlipidemia Expected: 10/26/2024 (Approximate), Expires: 10/26/2025[facility] Service Area Work Phone: Comment on above:Expected: 10/26/2024 (Approximate), Expires: 10/26/2025Start: 10-26-2024 End: 36-38-6231Twrjjemyc aminotransferase [Enzymatic activity/volume] in Serum or Plasma by With P-5'-PAspartate Aminotransferase Lab Routine ASCVD (arteriosclerotic cardiovascular disease) Mixed hyperlipidemia Expected: 10/26/2024 (Approximate), Expires: 10/26/2025UnOhio Valley Surgical Hospital Work Phone: Comment on above:Expected: 10/26/2024 (Approximate), Expires: 10/26/2025Start: 10-26-2024 End: 26-35-3504Gtfac metabolic 2000 panel - Serum or PlasmaBasic Metabolic Panel Lab Routine ASCVD (arteriosclerotic cardiovascular disease) Congestive heart f ailure, NYHA class 2 and ACC/AHA stage C Expected: 10/26/2024 (Approximate), Expires: 10/26/2025[facility] Work Phone: Comment on above:Expected: 10/26/2024 (Approximate), Expires: 10/26/2025Start: 10-26-2024 End: 84-47-1767Nyvkp 1996 panel - Serum or PlasmaLipid Panel Lab Routine ASCVD (arteriosclerotic cardiovascular disease) Mixed hyperlipidemia Expected: 10/26/2024 (Approximate), Expires: 10/26/2025[facility] Work Phone: Comment on above:Expected: 10/26/2024 (Approximate), Expires: 10/26/2025Start: 10-10-2024 End: 23-61-0194Fnukxid encounter procedureUH [facility] PointStart: 09-28-2024 End: 58-11-6323Xzxafyk encounter /26/2025 10:15 AM EST Office Visit [facility] [address] [place] [address] Jordan Wisdom, DO [address] [place] [address] [facility] OBStart: 09-07-2024 End: 82-84-0956Ocaxuanh SupportNOMS CI AUDComment on above:ArrivedStart: 06-27-2024 End: 57-17-5755Ugxiwmf encounter kdcbbforj43/25/2024 10:45 AM EST Procedure Visit [facility] [address] [place] [address] Yoselin eWir, DPM [address] [place] [address] NOMS PODIATRYStart: 06-24-2024 End: 27-88-9018Xdfqgug encounter uqyfhmjlx31/22/2024 9:20 AM EST Office Visit [facility] [address] [place] [address] [place] [phone] Ramone Perkins MD [address] [place] [address], [address] [address] [facility] SurgeonsStart: 05-31-2024 End: 10-25-6928Kqyyduq encounter procedureNOMS CI ORTHOPAEDICSComment on above: Spondylolisthesis of lumbar regionStatus post right hip replacement; Primary osteoarthritis of right hipStart: 05-25-2024 End: 46-75-6594Pepnyyb encounter procedureNOMS SWS OBComment on above:Pessary maintenance; Cystocele with rectocele; Urethral caruncle; Vaginal atrophyStart: 05-24-2024 End: 13-88-0626Kkfahsnqjecs / ancillary services managementNOJENNIE MEL[facility] Start: 19-37-1690Zjoedbpfz for osteoporosisBone Density [facility] HospitalStart: 05-19-2024 End: 30-64-1370Zkqdrqo encounter tvpvbxtxu21/17/2024 1:45 PM EDT Office Visit [facility] [address] [place] [address] González Suazo, DO [address] [facility] [address] [place] [address] NOMS FB ORTHOPAEDICSStart: 05-17-2024 End: 92-92-3205Whfyvemgdvij / ancillary services maewenfwna82/15/2024 10:30 AM EDT Ancillary Procedure [facility] [address] [facility] [address] [place] [address] NOMS FNR MRStart: 05-10-2024 End: 54-41-4342AY Lumbar spine WO contrastMR lumbar spine wo contrast Imaging Routine Lumbar spine pain Expected: 05/10/2024 (Approximate), Expires: 05/10/2025NOKY [facility] Work Phone: Comment on above:Expected: 05/10/2024 (Approximate), Expires: 05/10/2025Start: 05-10-2024 End: 07-61-0908Rgqaari encounter procedureNOHILLCREST HOSPITAL CL[facility] – CLAREMORE ORTHOPAEDICSComment on above: ArrivedStart: 04-29-2024 End: 99-31-0914Faonpcs encounter srkhcattb74/27/2024 8:15 AM EDT Office Visit [facility] [address] [place] [address] Devin Birmingham, FRAMER [address] [place] [address] ArrivedNOMS PCF ORTHOComment on above:ArrivedStart: 04-27-2024 End: 24-01-1649Cfcsbymt Rcjyzke5704/27/2024 9:30 AM EDT Clinical Support [facility] CI AUD [address] [facility] [address] [place] [address] Lisa Davenport, [facility] [address] [facility] [place] [address] NOMS CI AUDStart: 50-19-2760CJSUK-19 Vaccine ()COVID-19 Vaccine ()[facility] Start: 87-19-1491PZYEV-19 Vaccine ()COVID-19 Vaccine ()[facility] SystemStart: 43-08-9112FCBRN-19 Vaccine ()COVID-19 Vaccine ()[facility] HospitalStart: 73-19-8313Mqjpehbzm vaccinationNOKY HealthcareStart: 01-16-2024 EchocardiographyEchocardiogramUnOhio Valley Surgical HospitalStfort worth: 01-12-2024 End: 00-82-1083Ebkfdwe encounter hchftejsm04/11/2024 9:40 AM EDT Office Visit [place] [address] [facility] [address] [place] [address] Pineda Santillan MD [address] [facility] 2, [facility] [address] [place] [address] [facility]: 13-00-6005HwmbsscpvOhioHealth Berger Hospitaltart: 11-30-2023 End: 81-02-3467Glkvmyrumx complete panel - UrineUrinalysis with Reflex Microscopic Lab Routine Dysuria Weakness Expected: 11/30/2023 (Approximate), Expires: 11/29/2024[facility] Service Area Work Phone: Comment on above:Expected: 11/30/2023 (Approximate), Expires: 11/29/2024Start: 22-28-0573Dqxgmthn admissionOhioHealth Berger Hospitaltart: 19-19-3656YnpujjfgcOhioHealth Berger Hospitaltart: 11-16-2023 End: 83-30-5275Samfyvk encounter oozrldrim80/15/2024 10:20 AM EDT Office Visit [place] [address] [facility] [address] [place] [address] Pineda Santillan MD [address] [facility] [address] [place] [address] [facility] CenterStart: 11-28-2023Medicare Annual Wellness (AWV)Medicare Annual Wellness (AWV)[facility] HealthcareStart: 93-59-6314BIT, Provider: Pineda Santillan, Status: Pen, Time: 1:40 PMFUV, Provider: Pineda Santillan, Status: Pen, Time: 1:40 PMMP-[facility] [address] DO Work Phone: Start: 16-12-8946Aebprnqac for osteoporosisBone Density [facility] HospitalStfort worth: 55-86-8492TPTTT-19 Vaccine ( season)COVID-19 Vaccine ( season)[facility]: 99-68-6192OHZEPV LIZZIE, Provider: [place] HHVI NUCLEAR 01,[id number], Status: Pen, Time: 2:30 PMSTRESS LIZZIE, Provider: [place] HHVI NUCLEAR 01,[id number], Status: Pen, Time: 2:30 PMMP-[facility] [address] DO Work Phone: Start: 86-15-1822Kirir [facility] CenterStart: 48-82-2339AdhnxqgumDayton Children'S Hospital CenterStart: 88-47-5544Jufqg [facility] CenterStart: 01-18-2023 [facility] CenterStart: 36-83-1330Plpdn [facility] CenterStart: 53-76-7322UegaqnqjzDayton Children'S Hospital CenterStart: 37-23-5803Zbmym [facility] CenterStart: 01-16-2023 End: 82-52-1276YeiyzixjrOhioHealth Berger Hospitaltart: 09-20-9486Npbrr chemistry [facility]tart: 94-07-2751AmjampdhcOhioHealth Berger Hospitaltart: 39-34-2118YzvktchbeOhioHealth Berger Hospitaltart: 01-14-2023 ConsultationOhioHealth Berger Hospitaltart: 56-72-9621Vlgpmmyt admission [facility]tart: 00-91-8292Emipnrbb to cardiac rehabilitation programOhioHealth Berger Hospitaltart: 01-14-2023 End: 74-52-4054SbfccgmtzOhioHealth Berger Hospitaltart: 02-32-2112PHAUV-19 Vaccine (4 - Pfizer series)COVID-19 Vaccine (4 - Pfizer series)[facility] HospitalStart: 18-14-5241Vujiigxky vaccinationINFLUENZA (Season Ended)[facility]: 95-95-7592BHS High Risk: (Elderly (60+) or Population) (1 - 1-dose 75+ series)RSV High Risk: (Elderly (60+) or Population) (1 - 1-dose 75+ series)[facility] HospitalStart: 41-39-8530JOMVVTGN SCREENDIABETES SCREENProtestant Hospitaltart: 68-19-1753FXCGVTP DIRECTIVE DISCUSSIONADVANCE DIRECTIVE DISCUSSIONProtestant Hospitaltart: 01-59-1155TDYH DENSITYBONE DENSITYProtestant Hospitaltart: 91-95-2896Qftm Risk ScreeningFall Risk ScreeningProtestant Hospital SystemStart: 38-44-1614QJWDJNVLP AGE 65 AND OVER WITH 5YR LOOKBACK (#1)PNEUMOVAX AGE 65 AND OVER WITH 5YR LOOKBACK (#1)[facility]: 59-52-9285MCV patients and/or patients aged 60+ years (1 - 1-dose 60+ series)RSV patients and/or patients aged 60+ years (1 - 1-dose 60+ series)[facility] Start: 23-09-8050CFWCVWWA VACCINE (1 of 2)SHINGRIX VACCINE (1 of 2)[facility]: 02-63-1742ENuE/Tdap/Td Vaccines (1 - Tdap)DTaP/Tdap/Td Vaccines (1 - Tdap)[facility] HospitalStfort worth: 53-40-7858CMkJ,Tdap and Td Vaccines (1 - Tdap)DTaP,Tdap and Td Vaccines (1 - Tdap)[facility] Start: 52-27-0389Mnedw microalbumin profileDTAP,TDAP,TD (1 - Tdap)[facility]: 78-38-6250Msscxrpv mellitus screeningDiabetes ScreeningHolmes County Joel [facility]omerene Memorial HospitalStfort worth: 05-65-8626KEVVQ-19 VACCINE (1)COVID-19 VACCINE (1) [facility]: 72-26-7447Fuqehusgfm ScreeningDepression Screening [facility] Hospitaltart: 95-55-1864KSdV/Tdap/Td Vaccines (1 - Tdap) DTaP/Tdap/Td Vaccines (1 - Tdap)[facility] CenterStart: 80-68-9653Myvplktiux measurementCreatinine [facility]: 1940 Lipid panelLipid PanelUniversity Hospitals Lake West Medical Center: 1939Medicare Annual Wellness (AWV)Medicare Annual Wellness (AWV)[facility] CenterStart: 1939Medicare Annual Wellness VisitUniversity Hospitals Lake West Medical Center: 15-58-8635Gyvinjfvt measurementPotassium [facility] Start: 58-60-9432Txxi Cancer ScreeningSkin Cancer ScreeningHolmes County Joel Pomerene Memorial HospitalAlbumin [Mass/volume] in Serum or PlasmaSumma Health Akron CampusAlbumin/Globulin ratioSumma Health Akron CampusAnion gap measurementSumma Health Akron CampusAnion gap measurementSumma Health Akron CampusBasophils [#/volume] in Blood by Automated countSumma Health Akron CampusBasophils [#/volume] in Blood by Automated count [facility] CampusBasophils/100 leukocytes in Blood by Automated countSumma Health Akron CampusBasophils/100 leukocytes in Blood by Automated countSumma Health Akron CampusCBC panel - Blood by Automated countCBC Lab Routine Morning draw (Lab) until discontinued starting 11/30/2024, 3 [facility] Work Phone: Comment on above:Morning draw (Lab) until discontinued starting 11/30/2024, 3 completedComprehensive metabolic 1999 panel - Serum or PlasmaSumma Health Akron CampusComprehensive metabolic 1999 panel - Serum or [facility] End: 51-01-9750Ilyywnhxrzpgk of physical activity toleranceCardiac rehab evaluation Card Rehab Routine Once for 1 Occurrences starting 12/02/2024 until 12/02/2024[facility] Work Phone: Comment on above:Once for 1 Occurrences starting 12/02/2024 until 12/02/2024DXA Skeletal system.axial Views for bone density Sum[facility] Health Akron CampusECG 12 LeadECG 12 Lead ECG Routine 11/30/2024 9:01 AM [facility] Work Phone: ECG 12 leadECG 12 lead ECG Routine 11/30/2024 6:[address] [facility] Work Phone: ECP 12 LeadECG 12 Lead ECG Routine 12/01/2024 6:53 AM [facility] Work Phone: ECG 12 LeadECG 12 Lead ECG Routine 12/02/2024 6:18 AM [facility] Work Phone: ECG 12 LeadECG 12 Lead ECG Routine 12/03/2024 7:25 AM [facility] Work Phone: Electrocardiogram 12 LeadElectrocardiogram 12 Lead ECG STAT 12/02/2024 1:57 PM [facility] Work Phone: Electrocardiogram, 12-lead PRN ACS symptoms Electrocardiogram, 12-lead PRN ACS symptoms ECG Routine As needed until discontinued starting 11/29/2024[facility] Work Phone: Comment on above:As needed until discontinued starting 11/29/2024Electrophoresis: jeplx-2-eswxxxhnFghqhdatxSumma Health [facility]ron Campus Electrophoresis: ymkcw-7-dnborwwjAuqlbyhzeSumma Health Akron Campus Electrophoresis: beta-globulinSumma Health Akron CampusElectrophoresis: gamma globulinSumma Health Akron CampusEosinophils/100 leukocytes in Blood by Automated countSumma Health Akron CampusEosinophils/100 leukocytes in Blood by Automated countSumma Health Akron Campus Erythrocyte distribution width [Ratio] by Automated [facility] Healthcare SystemErythrocyte distribution width [Ratio] by Automated [facility] SystemErythrocytes [#/volume] in BloodSumma Health Akron CampusErythrocytes [#/volume] in [facility] Globulin [Mass/volume] in SerumSumma Health Akron Campus End: 17-26-9110Adsuikw [Mass/volume] in Serum or PlasmaPOCT Glucose Point of Care Testing - Docked Device Routine Once (Lab) for 1 Occurrences starting 09/2024 until 12/02/2024[facility] Service Area Work Phone: comment on above:Once (Lab) for 1 Occurrences starting 12/02/2024 until 12/02/2024Glucose measurement estimated from glycated hemoglobinSumma Health Akron CampusHematocrit [Volume Fraction] of Blood [facility] CampusHematocrit [Volume Fraction] of [facility] CincinnatiHemoglobin [Mass/volume] in [facility] CincinnatiHemoglobin [Mass/volume] in [facility] Hemoglobin A1c/Hemoglobin.total in [facility] CincinnatiIgA [Mass/volume] in Serum or [facility]amisburgIgG [Mass/volume] in Serum or [facility] MiamisburgIgM [Mass/volume] in Serum or [facility]burgLeukocytes [#/volume] corrected for nucleated erythrocytes in Blood by Automated [facility] HospitalLeukocytes [#/volume] corrected for nucleated erythrocytes in Blood by Automated [facility] Leukocytes [#/volume] in [facility] CincinnatiLeukocytes [#/volume] in [facility] CincinnatiLymphocytes [#/volume] in Blood by Automated [facility] Healthcare SystemLymphocytes [#/volume] in Blood by Automated [facility] SystemLymphocytes/100 leukocytes in Blood by Automated countSumma Health Akron Campus Lymphocytes/100 leukocytes in Blood by Automated countSumma Health Akron CampusMCH [Entitic mass] by Automated [facility] SystemMCH [Entitic mass] by Automated [facility] SystemMCHC [Mass/volume] by Automated [facility] SystemMCHC [Mass/volume] by Automated [facility] SystemMCV [Entitic volume] by Automated [facility] SystemMCV [Entitic volume] by Automated [facility] SystemMG Breast - bilateral ScreeningSumma Health Akron CampusMonocytes [#/volume] in Blood by Automated [facility] SystemMonocytes [#/volume] in Blood by Automated [facility] SystemMonocytes/100 leukocytes in Blood by Automated [facility] SystemMonocytes/100 leukocytes in Blood by Automated [facility] Neutrophils [#/volume] in Blood by Automated [facility] SystemNeutrophils [#/volume] in Blood by Automated [facility] SystemNeutrophils/100 leukocytes in Blood by Automated [facility] SystemNeutrophils/100 leukocytes in Blood by Automated count [facility] CampusNucleated erythrocytes [Presence] in Blood by Automated [facility] SystemNucleated erythrocytes [Presence] in Blood by Automated [facility] SystemPatient EducationDayton Children'S Hospital Ctr Work Phone: Patient referralDayton Children'S Hospital Ctr Work Phone: Platelet mean volume [Entitic volume] in Blood by Automated [facility] SystemPlatelet mean volume [Entitic volume] in Blood by Automated [facility] SystemPlatelets [#/volume] in BloodSumma Health Akron CampusPlatelets [#/volume] in [facility] CincinnatiProtein [Mass/volume] in Serum or Plasma [facility] Hospitalerum immunofixationSumma Health Akron CampusXR Radius and Ulna - right 2 [facility] HospitalXR Wrist - right GE 3 [facility] Immunizations Immunization DateImmunizationNotesCare VdrwmfpsOrkcsurg49-83-6225oorjubjub, high dose seasonal, preservative-freeBenjamin Ball DO Work Phone: [facility]09-18-2025influenza virus vaccine, unspecified formulationSteven Shaiher DPM Work Phone: [facility] CenterLhqvsjirwq62-00-7396nblzdieqv, high dose seasonal, preservative-freeSumma Health Akron Campus11-29-2024influenza virus vaccine, unspecified formulationAnn Klein Forensic Centermagan LopezLewisGale Hospital [facility]ask[facility]-A Work Phone: [facility] CenterSfstsnnrte20-95-5109lefaaodha virus vaccine, unspecified formulationSumma Health Akron Campus10-04-2023Influenza, High-dose Seasonal, Quadrivalent, Preservative FreeSteven Shaiher DPM Work Phone: [facility] CenterXudfqzjfef39-36-9653ozozhtqrg, high dose seasonal, preservative-freeBenjamin Ball Other [employer] betNOW Other 390908-40-1838Nqeekpo High-Dose Quadrivalent 0.7 ML Intramuscular Suspension Prefilled SyringeBenjamin E Ball Work Phone: [phone]-JcdmcChildren's [place] 250 DO Work Phone: [phone]) [phone] virus vaccine, unspecified formulationPatrick Vivartes [facility] [place] 814380-04-2022Pfizer COVID-19 Vac Bivalent 30 MCG/0.3ML Intramuscular SuspensionBenjamin E Ball Work Phone: [facility]04-22-2022Comirnaty 30 MCG/0.3ML Intramuscular SuspensionBenjamin E Ball Work Phone: [facility]04-22-2022SARS-CoV-2 mRNA (jdzrdcorfek-flbt-aaoxsrr) vaccinePaSUNDAYTOZ [facility] [place] 814380-04-2021Pfizer-BioNTech COVID-19 Vacc 30 MCG/0.3ML Intramuscular SuspensionBenjamin E Ball Work Phone: [facility]09-22-2021Fluzone High-Dose Quadrivalent 0.7 ML Intramuscular Suspension Prefilled SyringeBenjamin E Ball Work Phone: [phone]-XngbzSt. Luke'S Hospital 250 DO Work Phone: [phone] virus vaccine, unspecified formulationPaSUNDAYTOZ [facility]02-21-2021Pfizer-BioNTech COVID-19 Vacc 30 MCG/0.3ML Intramuscular SuspensionBenjamin E Ball Work Phone: [facility] CampusComment on above: Result Comment: 2024-03-01: KZU1004-83-2944Ujaqmr-SdeJSdfw COVID-19 Vacc 30 MCG/0.3ML Intramuscular SuspensionBenjamin E Ball Work Phone: [facility] CampusComment on above: Result Comment: 2024-03-01: MCV3078-50-9834wajvlyota virus vaccine, unspecified formulationDeaconess Health SystemStory To College [facility] Hospitaly10-02-2020influenza, high dose seasonal, preservative-freeBenjamin E Ball Work Phone: [phone]-ZhebgSt. Luke'S Hospital 250 DO Work Phone: [phone] virus vaccine, unspecified formulationDeaconess Health Systemk STREETER [facility]y09-01-2020influenza, high dose seasonal, preservative-freeBenjamin E Ball Work Phone: [phone]-NromeSt. Luke'S Hospital 250 DO Work Phone: 1([phone]) 355-266211282050-18-7112irvhwq vaccine recombinantSteven [facility] DPM Work Phone: [facility] CenterNwtiddkzww26-80-6785bxlbwtcyh virus vaccine, unspecified formulationPaPressure BioSciencesk STREETER [facility]09-27-2019influenza, high dose seasonal, preservative-freeBenjamin E Ball Work Phone: [phone]-FihbtMegan [place] [address] DO Work Phone: [phone] vaccine recombinantBenjamin E Ball Work Phone: [facility]09-26-2018influenza virus vaccine, unspecified formulationPaPressure BioSciencesk STREETER [facility]09-26-2018influenza, injectable, quadrivalent, preservative freeBenjamin E Ball Work Phone: [phone]-JalamMegan V[place] [address] DO Work Phone: [phone]) [phone]symwqg virus vaccine, unspecified formulationPaPressure BioSciencesk STREETER [facility] [place] 814380-02-2017influenza, injectable, quadrivalent, preservative freeBenjamin E Ball Work Phone: [phone]-PpipkMegan Ville [address] DO Work Phone: [phone]) [phone]ydzxtqwh conjugate vaccine, 13 valent Yoselin Weir DPM Work Phone: [facility] CenterZlmtgbnvpu36-98-5733cbsods vaccine, liveBenjamin E Ball Work Phone: [facility]01-01-2011pneumococcal polysaccharide vaccine, 23 valentBenjamin E Ball Work Phone: [facility]01-01-2005 pneumococcal polysaccharide vaccine, 23 valentBenjamin E Ball Work Phone: [facility] Payers DatePayer CategoryPayerPolicy [id number] 2023Medicare [employer] MEDICARE ADVANTAGE Member Subscriber Plan / Payer (Effective 2022-Present) Name: Atiya Jha Member ID: [id number] Relation to Subscriber: Self Name: Atiya Jha Subscriber ID: [id number] Payer ID: [id number] (NAIC) Type: Not on file Address: [address] [id number] 2022Medicare (Managed Care)[id number] [id number] [id number] [id number] Health InsuranceMEBRMPCN [id number] [id number]HHUKL ZZZLATRELL [facility] [id number] 2010-2013 [id number] 1.2.840.844051.1.13.159.2.7.3.542675.315 2007MedicareMEDICARE 1.2.840.85[id number] [id number] 2004MedicareMEDICARE MEDICARE B [id number] 2004-Present [place] [id number] 1.2.840.973801.1.13.159.2.7.3.052387.315 2004Medicare [id number] [id number] 2.0.1.334638.3.57[id number] 2.0.1.981255.3.57[id number] 2.0.1.667966.3.57[id number] 2.0.1.700392.3.57[id number] 2.840.1.128283.3.579.2.524514-86-6425Kqbbqjx80728157 2.160.1.606104.3.579.2.497398-82-5042Gkuvpyf39455845 2.16840.1.447996.3.57[id number] 2.840.1.919553.3.579.2.140536-23-1716Rcgkyrg27858436 2.16.840.1.358046.3.579.2.415486-35-4825Lkkosrx40984137 2.16840.1.433123.3.579.2.956215-85-6325Idthava15747497 2.16840.1.744610.3.579.2.550256-94-5854Zdstczs57742469 2.16840.1.084415.3.579.2.678141-99-6277Stmryqm63256475 2.16840.1.030237.3.579.2.637770-94-0422Wlzrhez93806138 2.840.1.980440.3.579.2.187827-21-7350Hmdtqoz27000605 2.0.1.397572.3.579.2.058336-52-2388Ayhzina02266911 2.840.1.936871.3.579.2.246128-79-5034Rmcvwwh00507755 2.840.1.561982.3.579.2.526255-09-4977Nacwael78594395 2..1.607089.3.579.2.373517-43-0508Uldnpfw367945591 2.840.1.264212.3.579.2.764842-12-5171Gkerflu71155820 2.16840.1.702866.3.579.2.018946-60-6638Ooveofz12471885 2.16840.1.415886.3.579.2.06289-29-6150Bssuhxc37492760 2.840.1.409493.3.579.2.15435-63-2318Kzlisiu49179942 2.16840.1.345936.3.579.2.83092-51-4410Tfbtoes55865509 2.16840.1.259173.3.579.2.43276-14-5622Xrufcov21825121 2.16840.1.490119.3.579.2.94953-67-8717Lyswnsx21974147 2.16840.1.586563.3.579.2.61642-03-9118Syhwqgl985057054 2.160.1.352327.3.579.2.837848-81-7022Zexwvbh746866481 2..1.766774.3.579.2.587538-48-4830Taghlhs649626209 2..1.529459.3.579.2.766476-61-0269Gyhuhxs075738811 2.0.1.097249.3.579.2.744644-10-5662Xedrowm843527738 2.0.1.570656.3.579.2.563349-22-2298Nfewhsa03904397 2..1.403621.3.579.2.067207-83-9076Ehjnyym74731750 2.840.1.536855.3.579.2.527184-45-3898Asuntwj95381411 2.0.1.207579.3.579.2.210452-27-4729Uhdjbqi25304257 2.840.1.775720.3.579.2.355831-32-5119Eulqzlz43668489 2.840.1.707437.3.579.2.561251-05-4782Kbxlnka51425918 2.16.840.1.783136.3.579.2.006823-93-2105Uaztgrq05781996 2.16.840.1.552768.3.579.2.817669-38-4900Wjtufzb65030132 2.16.840.1.607226.3.579.2.286351-49-7199Eqbrznb8080004 2.16.840.1.181045.3.579.2.403515-07-3040Zbivbwg6839018 2.16.840.1.881526.3.579.2.115394-64-6363Nbuubja3044959 2.840.1.466692.3.579.2.176080-53-3886Oetfmzb3306773 2.840.1.356480.3.57[id number] Health InsuranceUnited Healthcare [id number] 2.840.1.481808.3.579.2.607Ipzwmld04245017 2.0.1.222447.3.579.2.531 Mjyhjpp84810154 2.0.1.223543.3.579.2.531 Social History DateTypeDetailFacilityStart: 09-27-2010 End: 16-93-5830Vdyaysq smoking status [facility]ISNemont[facility] smokerOhioHealth Berger Hospitaltart: 09-27-2010 End: 44-56-2226Iclqjxg intakeCurrent drinker of alcohol (finding)[facility]: 46-82-0512Oex Assigned At BirthNot on fileProtestant Hospitaltart: 06-15-2023 End: 05-56-0986Dskvnlra alcohol occasionallyConsumes alcohol occasionallyNOMS HealthcareComment on above:coffee 1-2 cups;Start: 06-15-2023 End: 95-40-9856Xpc Assigned At [facility] Systemtart: 24-42-1910Uhb Assigned At [facility] Columbustart: 02-10-2023 End: 87-58-7352Azxtvyw use and exposureSmokeless tobacco non-userUnOhio Valley Surgical Hospital Work Phone: Start: 30-86-1276Jxqwlpo intakeLifetime non-drinker (finding)[facility] Work Phone: Start: 06-05-2023 End: 51-24-0302Phmxrhvd to SARS-CoV-2 (event)Unable to assessUnOhio Valley Surgical HospitalStart: 10-31-2023 End: 98-45-1859Wrzytbyu to SARS-CoV-2 (event)Not sureHolmes County Joel Pomerene Memorial HospitalStart: 02-17-2019 End: 83-67-8199Fjbdxif CommentsocialUnOhio Valley Surgical Hospital Work Phone: Start: 06-27-2022 End: 46-69-9317Wnfceum smoking statusNeverExecutive [facility]rology of [facility] [place]kyHow often to you have a drink containing alcohol?Monthly or lessNOMS HealthcareHow many standard drinks containing alcohol do you have on a typical day?1 or 2NOMS HealthcareHow often do you have 6 or more drinks on 1 occasion?Less than monthlyNOMS HealthcareStart: 90-25-3264Nsbbipf Comment1-2 drinks less than monthly in the past year, Caffeine intake: 1-2 cups per dayNOMS HealthcareStart: 03-08-2015 End: 15-50-1597YpeKyxwqp (finding)[facility] SystemStart: 11-28-2024 End: 24-68-8172XDJR Follow upSDOH Follow upSt. [facility] Of God Hospital Work Phone: Hab the [employer], gas, oil, or water company threatened to shut off services in your home in past 12ThuoUnOhio Valley Surgical HospitalHow often to you have a drink containing alcohol?NeverHolmes County Joel [facility] Work Phone: (I/We) worried whether (my/our) food would run out before (I/we) got money to buy more.Never trueHolmes County Joel [facility]rene [facility] Hospital Work Phone: Medical Equipment Procedure CodeEquipment CodeEquipment Original TextEquipment IdentifierDatesIns Actb 36mm 0d E X3 Trdnt - [id number]: 67-53-9369Feyl Fem -5mm 36mm Hip Cocr - [id number]_mtfNyhkj: 95-83-0883Oantg Actb 52mm T/H Pros - [id number]_hieLfysk: 85-26-4042Dund Fem Acld Tmzf 4.5 Hip - [id number]_impStart: 99-12-2796NT STENT ANANDA FRONTIER 2.25 X 22FDAStart: 01-14-2023 Femoral artery closure plug/patch, synthetic polymer ()[id number] FDAStart: 23-29-8798YT STENT ANANDA FRONTIER 2.25 X 22FDAStart: 89-40-5470YZ STENT ANANDA FRONTIER 2.25 X 22FDAStart: 60-49-7759OM STENT ANANDA FRONTIER 2.25 X 22FDAStart: 25-12-8183RQ STENT ANANDA FRONTIER 2.5 X 15 FDAStart: 16-18-4526Iqhdsbc artery closure plug/patch, synthetic polymer ()[id number] FDAStart: 70-63-5682OM STENT ANANDA FRONTIER 2.25 X 22FDAStart: 48-27-6234QD STENT ANANDA FRONTIER 2.5 X 15FDAStart: 20-93-5784LF STENT ANANDA FRONTIER 2.25 X 22FDAStart: 37-73-9963VQ STENT ANANDA FRONTIER 2.5 X 15 FDAStart: 29-24-8129SU STENT ANANDA FRONTIER 2.25 X 22FDAStart: 04-98-2175XG STENT ANANDA FRONTIER 2.5 X 15FDAStart: 22-96-7491GB STENT ANANDA FRONTIER 2.25 X 22FDA Start: 29-26-3027QY STENT ANANDA FRONTIER 2.5 X 15FDAStart: 61-26-5857WS STENT ANANDA FRONTIER 2.25 X 22FDAStart: 13-38-0352JL STENT ANANDA FRONTIER 2.5 X 15FDA Start: 09-47-3762HQ STENT ANANDA FRONTIER 2.25 X 22FDAStart: 00-80-9823EK STENT ANANDA FRONTIER 2.5 X 15FDAStart: 81-58-0109EK STENT ANANDA FRONTIER 2.25 X 22FDA Start: 94-09-7873FT STENT ANANDA FRONTIER 2.5 X 15FDAStart: 18-54-6532KQ STENT ANANDA FRONTIER 2.25 X 22FDAStart: 90-15-8621MT STENT ANANDA FRONTIER 2.5 X 15FDA Start: 38-16-1238Iwrdn Actb 56mm Hip 4 Hl Clr Cd [place] G7 F Hmsphr - [id number] - [id number]_lrzXbmgr: 05-95-0162Fwmaf Actb 36mm F Ntrl Arcomxl G7 Hip - [id number] - [id number])[id number](10)[id number])[id number], 400214_imp FDAStart: 27-48-0533Eyle Fem 5 Std Avenir Cmplt Hip Colr Strl Lf - [id number] - [id number] +[id number]/$$[id number], 400234_imp FDAStart: 96-38-9181Bbwu Fem 36mm +3.5mm Vrsy Cocr Hip Rpl 970949 - [id number] - [id number] +[id number]/$$[id number], 400236_imp FDAStart: 29-41-6317Aintf Bn 30mm 6[address] St Actb Rory Trlg Strl Rpl 95660792 + 737398 + 826028 - [id number] - [id number] +[id number]/$$[id number], 400216_imp FDAStart: 56-64-4392Pvbat Bn 30mm 6[address] St Actb Rory Trlg Strl Rpl 57729303 + 484516 + 184116 - [id number] - [id number] +[id number]/$$[id number], 400219_imp FDAStart: 26-97-3135Gakgy Bn 30mm [address] St Actb Rory Trlg Strl Rpl 54646093 + 815870 + 830011 - [id number] - [id number] +[id number]/$$[id number], 400221_imp FDAStart: 71-32-8152FU STENT ANANDA FRONTIER 2.25 X 22FDAStart: 30-05-6629QF STENT ANANDA FRONTIER 2.5 X 15FDAStart: 62-32-7162CM STENT ANANDA FRONTIER 2.25 X 22FDAStart: 96-64-1981RA STENT ANANDA FRONTIER 2.5 X 15FDAStart: 85-67-3850LS STENT ANANDA FRONTIER 2.25 X 22FDAStart: 94-42-9409HY STENT ANANDA FRONTIER 2.5 X 15FDAStart: 89-71-3799FW STENT ANANDA FRONTIER 2.25 X 22FDAStart: 66-12-0341VO STENT ANANDA FRONTIER 2.5 X 15FDAStart: 53-99-9948AC STENT ANANDA FRONTIER 2.25 X 22FDAStart: 86-92-3393CX STENT ANANDA FRONTIER 2.5 X 15FDAStart: 99-34-2362Hvyil, [place] Bayard Ole, 2.50 X 15rx - [id number]_qpvUucfp: 78-58-3372YF STENT ANANDA FRONTIER 2.25 X 22FDAStart: 01-51-0803TS STENT ANANDA FRONTIER 2.5 X 15FDAStart: 19-98-6843IW STENT ANANDA FRONTIER 2.25 X 22FDAStart: 82-01-5334YY STENT ANANDA FRONTIER 2.5 X 15FDAStart: 81-80-3159SN STENT ANANDA FRONTIER 2.25 X 22FDAStart: 87-55-3888FP STENT ANANDA FRONTIER 2.5 X 15FDAStart: 53-32-8815IL STENT ANANDA FRONTIER 2.25 X 22FDAStart: 37-31-5555DV STENT ANANDA FRONTIER 2.5 X 15FDAStart: 82-55-4484ZV STENT ANANDA FRONTIER 2.25 X 22FDAStart: 93-31-8575YY STENT ANANDA FRONTIER 2.5 X 15FDAStart: 46-48-9413DH STENT ANANDA FRONTIER 2.25 X 22FDAStart: 82-91-6405NJ STENT ANANDA FRONTIER 2.5 X 15FDAStart: 18-59-5867LE STENT ANANDA FRONTIER 2.25 X 22FDAStart: 62-43-8941MT STENT ANANDA FRONTIER 2.5 X 15FDAStart: 11-43-7565FI STENT ANANDA FRONTIER 2.25 X 22FDAStart: 21-45-7442QM STENT ANANDA FRONTIER 2.5 X 15FDAStart: 11-18-2023 Goals DatePatient GoalDesired Activity/StatePersonal health goalComment on above: Evaluation of progress towards goal: Home with [facility]. Functional Status ClkzMttnqcbajeTblskbMpirhiak79-04-4735Wtlnlbiluw statusPatient at Baseline [facility] Work Phone: 1(981) [phone]aaellqg, Afraid, Rape, and Kick questionnaire [HARK][facility] Work Phone: 1(773) 604-471904861868-85-4582Btilm score [AUDIT-C]0 11/29/2024 11:01 PM EDSho Palomino, RNUnOhio Valley Surgical Hospital Work Phone: 1(678) [phone] Health Questionnaire 2 item (PHQ-2) [Reported][facility] Work Phone: 1(969) [phone] - suicide severity rating scale screener - recent [C-SSRS][facility] Work Phone: 1(568) [phone]x statusPatient at Baseline [facility] Work Phone: 1(176) [phone] statusPatient at Baseline [facility] Work Phone: 1(148) [phone] StatusN/AExecutive [facility]rology of [facility] Knnupjrr10-83-0689Bzkpzvagth StatusN/AExecutive [facility] of [facility] Zvevmse38-22-6554Calcqcvvoj statusPatient at BaselineDayton [facility] Work Phone: 1(535) [phone] statusPatient at Baseline [facility] Work Phone: [phone]) [phone] statusPatient at Baseline [facility] Work Phone: UnOhio Valley Surgical Hospital Work Phone: Mental Status EkfyDaduteovepZrzzxgEjfyvpbf81-08-8893Leyrgdqzm functionCognitive Status Patient at BaselineDay[facility] Work Phone: 1(821) [phone] functionCognitive Status Patient at BaselineDay[facility] Work Phone: 1(437) [phone] functionCognitive Status Patient at BaselineSt[facility] Work Phone: 1(617) [phone] functionCognitive Status Patient at BaselineDay[facility] Work Phone: 1(679) [phone] functionCognitive Status Patient at BaselineSt[facility] Work Phone: 1(121) [phone] functionCognitive Status Patient at BaselineSt. [facility] Work Phone: Clinical Notes 11-02-1999 to 05-31-2025 Note Date & AjhlGrqkLwhibexy21-80-8949 History of Present illness Narrative* SHANNAN Mitchell - 05/31/2025 9:30 AM EDT Images from the original note were not included. Orthopedic Office note: NAME: Atiya Jha : 1940 EST PT WITH YEARLY RECHECK RT ZOË 06/05/21 (~4YRS) PER DR SUAZO- DOING WELL XRAY RT HIP TODAY EPIC 05/31/25 DENIES MUCH PAIN- PT NOTES SOME LIMITATION WITH ROM/STRENGTH- NO PAIN MEDS *RT KNEE* EST PT RECHECK RT KNEE- S/P CORTISONE INJ 01/10/25; GOOD RELIEF XRAY EPIC 01/10/25 XRAY EPIC 06/01/23 XRAY EXA 06/13/20 CORTISONE INJ 01/10/25 MEN'S GARMENT FITTER BRACE PT NOTES SOME INCREASE WITH PAIN- [...] requiring urgent evaluation. 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 documented in this [facility]10-27-2025 History of Present illness Narrative* Jordan Wisdom, - 05/29/2025 1:30 PM EDT Images from [...] SURGICAL HISTORY 11/2020 right intrarticular hip injection [place] BREAST REDUCTION 1999 TRIGGER FINGER RELEASE 03/02/2019 [...] Comments Pap 05/07/22- Neg Mammogram 07/11/24- Neg (Kiefer) Dexa 07/15/24- spine normal, L forearm osteoporosis (Kiefer) Colonoscopy 2019 (Grillis) Review of Systems All [...] DO Assessment & Plan documented in this encounterStephanie Ville [address]Rwrecydrmb93-80-8669 History of Present illness Narrative* Yoselin Raudel Gibbons, DPM - 05/08/2025 1:00 PM EDT Images [...] SURGICAL HISTORY 11/2020 right intrarticular hip injection [place] BREAST REDUCTION 1999 TRIGGER FINGER RELEASE 03/02/2019 [...] understanding. Yoselin Weir DPM documented in this [facility]09-10-2025 Evaluation + Plan note* Assessment & Plan Note - ABDULLAHI Kaur - 04/12/2025 1:55 PM EDT Associated Problem(s): Congestive heart failure, NYHA class 2 and ACC/AHA stage C IC HF borderline EF 50-55% November 2024 (January 2023 TTE EF 40-45% & December 2023 cath EF 40%) FC II GDMT Coreg Of cozaar due to hyponatremia [facility] Work Phone: 1(419) 455-822509-10-2025 Miscellaneous Notes* Assessment & Plan Note - ABDULLAHI Kaur - 04/12/2025 1:55 PM EDTAssociated Problem(s): Congestive heart failure, NYHA class 2 and ACC/AHA stage C IC HF borderline EF 50-55% November 2024 (January 2023 TTE EF 40-45% & December 2023 cath EF 40%) FC II GDMT Coreg Of cozaar due to hyponatremia * Assessment & Plan Note - ABDULLAHI Kaur - 04/12/2025 1:53 PM EDT Associated Problem(s): Mild aortic stenosis November 2024 TTE Mild aortic stenosis * Assessment & Plan Note - ABDULLAHI Kaur - 04/12/2025 1:53 PM EDT Associated Problem(s): Mixed hyperlipidemia High intensity statin Reports recent labs at [facility], will obtain * Assessment & Plan Note - ABDULLAHI Kaur - 04/12/2025 1:52 PM EDT Associated Problem(s): Essential hypertension optimal in office Prior dose of hydrochlorothiazide and losartan were discontinued due to hyponatremia * Assessment & Plan Note - ABDULLAHI Kaur - 04/12/2025 1:52 PM EDT Associated Problem(s): Two-vessel coronary artery disease November 2024 NSTEMI at [facility] December 2024 to [facility] with Dr. Lee Mcknight/[place] PCI/[place] 2.5 x 15mm pMarg patent stent RCA mild November 18, 2023 cardiac cath following abnormal outpatient perfusion study Ostial/proximal LAD PCI/[place] 2.5 x 15 mm due to ISR Proximal circumflex with patent stent RCA 25% She then had diffuse disease of small vessels including OM and PDA. LVEF 40% documented in this [facility] Work Phone: 1([phone]) 347-103109-10-2025 Evaluation + Plan note* Assessment & Plan Note - ABDULLAHI Kaur - 04/12/2025 1:53 PM EDTAssociated Problem(s): Mild aortic stenosis November 2024 TTE Mild aortic stenosis [facility] Work Phone: 1(889) 492-792809-10-2025 Evaluation + Plan note* Assessment & Plan Note - ABDULLAHI Kaur - 04/12/2025 1:53 PM EDTAssociated Problem(s): Mixed hyperlipidemia High intensity statin Reports recent labs at [facility], will obtain [facility] Work Phone: 1(488) 221-888509-10-2025 Evaluation + Plan note* Assessment & Plan Note - ABDULLAHI Kaur - 04/12/2025 1:52 PM EDTAssociated Problem(s): Essential hypertension optimal in office Prior dose of hydrochlorothiazide and losartan were discontinued due to hyponatremia [facility] Work Phone: [phone]) 487-122809-10-2025 Evaluation + Plan note* Assessment & Plan Note - ABDULLAHI Kaur - 04/12/2025 1:52 PM EDTAssociated Problem(s): Two-vessel coronary artery disease November 2024 NSTEMI at [facility] December 2024 to [facility] with Dr. Lee Mcknight/Eloina PCI/Ananda 2.5 x 15mm pMarg patent stent RCA mild November 18, 2023 cardiac cath following abnormal outpatient perfusion study Ostial/proximal LAD PCI/Ananda 2.5 x 15 mm due to ISR Proximal circumflex with patent stent RCA 25% She then had diffuse disease of small vessels including OM and PDA. LVEF 40% [facility] Work Phone: 1(126) 411-340409-09-2025 History of Present illness Narrative* ABDULLAHI Kaur - 04/11/2025 11:30 AM EDT Chief Complaint I think I am doing better Reason for Visit Patient presents to the office today for outpatient follow-up for hospital follow-up. Last evaluated in clinic by Dr. Ndiaye January 2025. At that time he reduced carvedilol dosage dueto dizziness. Presents today ambulatory with cane and steady gait. Accompanied by daughter January 2025: Presented to [facility]] due to weakness and unsteady gait. Was noted to have a sodium of 126,E. coli UTI. Hydrochlorothiazide and losartan were discontinued. [...] have labs done recently at [facility] and I will obtain. She otherwise is [...] coronary artery disease November 2024 NSTEMI at [facility] December 2024 to [facility] with Dr. Lee dLM/oLAD PCI/[place] 2.5 x 15mm pMarg patent stent RCA mild November 18, 2023 cardiac cath following abnormal outpatient perfusion study Ostial/proximal LAD PCI/[place] 2.5 x 15 mm due to ISR Proximal circumflex with patent stent RCA 25% She then had diffuse disease of small vessels including OM and PDA. LVEF 40% Essential hypertension optimal in office Prior dose of hydrochlorothiazide and losartan were discontinued due to hyponatremia Mixed hyperlipidemia High intensity statin Reports recent labs at [facility], will obtain Mild aortic stenosis November 2024 [...] Dr. Ndiaye 6 months Sulma Busby MSN, MARKETING RESEARCH INTERN-DOCK SUPERINTENDENT, PMHNP-[facility] [place], [place] Please excuse any errors in grammar or translation related to this dictation. Voice recognition software was utilized to prepare this document. documented in this [facility] Work Phone: 1(516) 981-100309-09-2025 Instructions* Patient Instructions* ABDULLAHI Kaur - 04/11/2025 11:30 AM EDT [...] Dr. Ndiaye 6 months documented in this [facility] Work Phone: 1(267) 688-493207-25-2025 Evaluation note* Diagnosis Onset Date Resolution Status Admit Date Abnormal serum protein electrophoresis acuteJuly 2024 10:16amHeart failure with improved ejection fraction (HFimpEF)acuteJuly 2024 10:16amHyponatremiaacuteJuly 2024 10:16am Ischemic cardiomyopathyacuteJuly 2024 10:16amPrimary hypertensionacuteJuly 2024 10:16amRib fractureacuteJuly 2024 10:16am [facility] Work Phone: 1(381) 915-815607-11-2025 Discharge summary Author Iza Rae [facility] Date/TimeJuly 2024 4:[place] [address] Discharge Summary Signed Patient: Atiya Jha MR#: [id number] : 1940 Acct:[id number] Age/Sex: 84 / F Adm Date: 5 Loc: Room: [address] [place] [address]: Sandra Heart MD Copies to: [...] Iza Rae Follow Up: [facility] [place] [Outside] Referral Note: The office is currently closed. Please call the office for a follow-up appointment. Ivan Barreto DO [Primary Care Provider, Internal Medicine] - 02/24/25 10:30 am Referral Note: You have been scheduled for a follow up appointment for the following date and time,please call to reschedule if needed. Continuity of Care Document Health Concerns: A [facility] screening has identified you as FRAIL or [...] Stay Strong:Four Ways to Beat the Frailty [email or web address]/sxwabpcl-rwh-oqepjksumr/sta g-qfwzxt-jcdn-klpd-tx-qvbc-eof-apsvchb-nenr Exam Physical Exam Vital Signs: Temp Pulse [...] Neut % (Auto) 67.3, Lymph % (Auto) 21.8,[place] % (Auto) 10.3, Eos % (Auto) 0.4, Baso % (Auto) 0.2, Nucleat RBC Rel Count 0.2, Neut # (Auto) 5.8, Lymph # (Auto) 1.9, [place] # (Auto) 0.9 H, Eos # (Auto) [...] Appearance Clear, Urine pH 6.0, Ur Specific [place] >1.050 H, Urine Protein 30 H, Urine [...] % (Auto) 68.7, Lymph % (Auto) 21.6, [place] % (Auto) 8.6, Eos % (Auto) 0.5, Baso % (Auto) 0.6, Nucleat RBC Rel Count 0.1, Neut # (Auto) 4.8,Lymph # (Auto) 1.5, [place] # (Auto) 0.6, Eos # (Auto) 0.0, [...] 175 <Electronically signed by Sandra Heart MD> 02/12/25 175 [facility] Work Phone: 1(231) 258-575107-11-2025 Consult note Author Rashawn Mahmood [facility] Date/TimeJuly 2024 2:[address] [place] [address] Neurology Consult Note Signed Patient: Atiya Jha MR#: [id number] : 1940 Acct:[id number] Age/Sex: 84 / F Adm Date: 5 Loc: Room: [address] [place] [address] Type: ADM IN Attending Dr: Sandra Heart MD Copies to: DO Ivan Paz DO Obaydah M Daromar, MD~ HPI Consult Date: 02/10/25 Welcome Hostess: Rashawn Mahmood DO [facility] Medical History (Updated 02/10/25 @ 08:41 by [...] Perez M.D. 02/09/2025 9:43 PM Dictation Location: [facility]-29 Chest X-Ray 02/09/25 20:10 IMPRESSION: NO ACUTE CARDIOPULMONARY ABNORMALITY. Impression dictated by: Stephen Perez M.D. 02/09/2025 9:22 PM Dictation Location: [facility]--[address] 02/09/25 22:23 IMPRESSION: NO ACUTE INTRACRANIAL ABNORMALITY. Impression dictated by: Stephen Perez M.D. 02/09/2025 11:03 PM Dictation Location: [facility]--29 Therapy Recommendations Therapy Recommendations: OT Recommendations OT [...] was admitted for workup of hyponatremia, it gdn480. She has not been feeling herself lately. 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 Strong consideration for outpatient EMG and nerve conduction studies 4. Outpatient follow-up with neurology Documented By: Rashawn Mahmood DO 02/10/25 1107 Signed By: <Electronically signed by Rashawn Mahmood DO> 02/10/[address] [facility] Work Phone: 1(560) 304-991007-11-2025 [place] [id number] Discharge Summary Signed Patient: Atiya Jha MR#: [id number] : 1940 Acct:[id number] Age/Sex: 84 / F Adm Date: 5 Loc: Room: [address] [place] [address]: Sandra Heart MD Copies to: DO Iza Dean, ZAID Heart MD~ Providers Date of Discharge: 02/10/25 Discharging [...] Iza Rae Follow Up: [facility] [place] [Outside] Referral Note: The office is currently closed. Please call the office for a follow-up appointment. Ivan Barreto DO [Primary Care Provider, Internal Medicine] - 02/24/25 10:30 am Referral Note: You have been scheduled for a follow up appointment for the following date and time,please call to reschedule if needed. Continuity of Care Document Health Concerns: A [facility] screening has identified you as FRAIL or [...] Stay Strong:Four Ways to Beat the Frailty [email or web address]/zcbueejf-nfn-fyfdfvfqta/sta j-mzzlsl-dpts-flbf-ql-tokg-tyi-fshscgr-jwpq Exam Physical Exam Vital Signs: Temp Pulse [...] Neut % (Auto) 67.3, Lymph % (Auto) 21.8,[place] % (Auto) 10.3, Eos % (Auto) 0.4, Baso % (Auto) 0.2, Nucleat RBC Rel Count 0.2, Neut # (Auto) 5.8, Lymph # (Auto) 1.9, [place] # (Auto) 0.9 H, Eos # (Auto) [...] Appearance Clear, Urine pH 6.0, Ur Specific [place] >1.050 H, Urine Protein 30 H, Urine [...] % (Auto) 68.7, Lymph % (Auto) 21.6, [place] % (Auto) 8.6, Eos % (Auto) 0.5, Baso % (Auto) 0.6, Nucleat RBC Rel Count 0.1, Neut # (Auto) 4.8,Lymph # (Auto) 1.5, [place] # (Auto) 0.6, Eos # (Auto) 0.0, [...] Iza Rae APRN 02/10/25 1507 Signed By: 02/12/25175302/12/251756 [facility]07-11-2025 Consult noteGary [place] [id number] Neurology Consult Note Signed Patient: Atiya Jha MR#: [id number] : 1940 Acct:[id number] Age/Sex: 84 / F Adm Date: 5 Loc: Room: [address] [place] [address] Type: ADM IN Attending Dr: Sandra Heart MD Copies to: DO Ivan Paz DO Obaydah M Daromar, MD~ HPI Consult Date: 02/10/25 Welcome Hostess: Rashawn Mahmood DO [facility] Medical History (Updated 02/10/25 @ 08:41 by [...] No bowel obstruction. Impression dictated by: Stephen Preez M.D. 02/09/2025 9:43 PM Dictation Location: [facility]-29 [...] was admitted for workup of hyponatremia, it eho188. She has not been feeling herself lately. 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 Strong consideration for outpatient EMG and nerve conduction studies 4. Outpatient follow-up with neurology Documented By: Rashawn Mahmood DO 02/10/25 1106 Signed By: 02/10/25 1432 [facility]07-11-2025 History and physical note Author Louis Oliveira [facility] CampusNote Date/TimeJuly 2024 11:08[place] [address] Hospitalist H&P Signed Patient: Atiya Jha MR#: [id number] : 1940 Acct:[id number] Age/Sex: 84 / F Adm Date: 5 Loc: Room: [address] [place] [address] Type: ADM INOo Attending Dr: Louis Oliveira [...] negative unless noted below or in HPI [facility] Medical History (Updated 02/09/25 @ 23:00 by [...] 02/09/25 20:00 RBC 4.46 x10E6/uL (3.60-5.00) 02/09/25 20: Hgb 14.3 g/dL (11.8-15.4) 02/09/25 20:00 Hct 41.1 % (34.0-46.4) 02/09/25 20:00 MCV 92.2 fl (80-100) 02/09/25 20: MCH 32.0 pg (24.7-34.3) 02/09/25 20: MCHC 34.7 g/dL (32.0-35.0) 02/09/25 20: RDW 13.2 % (11.9-15.3) 02/09/25 20:00 Plt Count 222 x10E3/uL (150-450) 02/09/25 20:00 MPV 7.1 fl (6.3-10.7) 02/09/25 20:00 Neut % (Auto) 68.7 % (.) 02/09/25 20: Lymph % (Auto) 21.6 % (.) 02/09/25 20:00 [place] % (Auto) 8.6 % (.) 02/09/25 20:00 Eos % (Auto) 0.5 % (.) 02/09/25 20:00 Baso % (Auto) 0.6 % (.) 02/09/25 20: Nucleat RBC Rel Count 0.1 /100 WBC (0-0.5) 02/09/25 20:00 Neut # (Auto) 4.8 x10E3/uL (1.8-7.7) 02/09/25 20:00 Lymph # (Auto) 1.5 x10E3/uL (1.00-4.8) 02/09/25 20:00 [place] # (Auto) 0.6 x10E3/uL (0.0-0.8) 02/09/25 20:00 [...] (min): 75 Documented By: Louis Oliveira MD 02/09/252239 Signed By: <Electronically signed by Louis Oliveira MD> 02/09/25 [facility] Work Phone: 1([phone]) 157-621207-10-2025 History and physical noteGary [place] [id number] Hospitalist H&P Signed Patient: Atiya Jha MR#: [place] [id number] : 1940 Acct:[id number] Age/Sex: 84 / F Adm Date: 5 Loc: Room: [address] [place] [address] Type: ADM INOo Attending Dr: Louis Oliveira [...] negative unless noted below or in HPI [facility] Medical History (Updated 02/09/25 @ 23:00 by [...] 02/09/25 20:00 Hct 41.1 % (34.0-46.4) 02/09/25 20:00 MCV 92.2 fl (80-100) 02/09/25 20:00 MCH 32.0 pg (24.7-34.3) 02/09/25 20:00 MCHC 34.7 g/dL (32.0-35.0) 02/09/25 20:00 RDW 13.2 % (11.9-15.3) 02/09/25 20:00 Plt Count 222 x10E3/uL (150-450) 02/09/25 20: MPV 7.1 fl (6.3-10.7) 02/09/25 20:00 Neut % (Auto) 68.7 % (.) 02/09/25 20:00 Lymph % (Auto) 21.6 % (.) 02/09/25 20:00 [place] % (Auto) 8.6 % (.) 02/09/25 20:00 Eos % (Auto) 0.5 % (.) 02/09/25 20:00 Baso % (Auto) 0.6 % (.) 02/09/25: Nucleat RBC Rel Count 0.1 /100 WBC (0-0.5) 02/09/25 20:00 Neut # (Auto) 4.8 x10E3/uL (1.8-7.7) 02/09/25 20:00 Lymph # (Auto) 1.5 x10E3/uL (1.00-4.8) 02/09/25 20:00 [place] # (Auto) 0.6 x10E3/uL (0.0-0.8) 02/09/25 20:00 Eos # (Auto) 0.0 x10E3/uL (0.0-0.45) 02/09/25 20:00 Baso # (Auto) 0.0 x10E3/uL (0.0-0.2) 02/09/25 20: Monocyte Dist Width 15.66 % (0.00-20.00) 02/09/25 20:00 PHA Creatinine Clear 46.26 02/09/25 20:00 Sodium 126 mmol/L (136-145) L 02/09/25 20:00 Potassium 3.9 mmol/L (3.5-5.1) 02/09/25 20: Chloride 91 mmol/L (98-107) L 02/09/25 20:00 Carbon Dioxide 26.3 mmol/L (21.0-31.0) 02/09/25 20: Anion Gap 12.6 mEq/L (6.0-15.0) 02/09/25 20:00 [...] Oliveira MD 02/09/25 2240 Signed By: 02/09/25 2308 [facility]07-10-2025 Radiology Diagnostic study note [facility] [place] [address] [place] [address] CT Scan Report Signed Patient: Atiya Jha MR#: [id number] : 1940 Acct:[id number] Age/Sex: 84 / F ADM Date: 5 Loc: Room: [address] [place] [address] Type: ADM INOo Attending Dr: Louis Oliveira [...] Stephen Perez MD 02/09/252301 Signed By: 02/09/252302 [facility] Work Phone: 1([phone]) 882-949907-10-2025 [facility]iology [facility] [place] [address] [place] [address] CT Scan Report Signed Patient: Atiya Jha MR#: Hannah [id number] : 1940 Acct:[id number] Age/Sex: 84 / F ADM Date: 5 Loc: ER Room: Type: [facility] ER Attending Dr: Copies to: Angie Davidson [...] 9:43 PM Dictation Location: [facility]-29 Transcribed By: [facility] 02/09/252142 Dictated By: Stephen Perez MD 02/09/252138 Signed By: 02/09/252142 [facility] Work Phone: 1([phone]) [phone] History of Present illness Narrative* Yoselin Weir, DPHannah - 01/30/2025 1:00 PM EDT Images from [...] SURGICAL HISTORY 11/2020 right intrarticular hip injection [place] BREAST REDUCTION 1999 TRIGGER FINGER RELEASE 03/02/2019 [...] understanding. Yoselin Weir DPM documented in this [facility]06-30-2025 Instructions* Patient Instructions* Yoselin Weir DPM - 01/30/2025 1:00 PM EDT As noted documented in this encounterCrossroads Regional Medical CenterZzlfzeyjjc95-74-9200 History of Present illness Narrative* Jamia Ndiaye [...] Scribe Attestation By signing my name below, IJosefina LPN, Scribe attest that this documentation has [...] exam, discussion and plan. documented in this [facility] Work Phone: [phone]) [phone] Instructions* Patient Instructions* Josefina Victoria LPN - [...] up Sept follow up documented in this [facility]Hol[facility] Work Phone: 1(408) 978-699106-25-2025 History of Present illness Narrative* Nelsy Merino LPN - 01/25/2025 11:00 AM EDT Images from [...] BELT ABDOMINOPLASTY 2002 CARDIAC CATHETERIZATION 2004 COLONOSCOPY 2009 nl /[place]is COLONOSCOPY 02/2020 few [...] SURGICAL HISTORY 11/2020 right intrarticular hip injection [place] BREAST REDUCTION 1999 TRIGGER FINGER RELEASE 03/02/2019 [...] DO Assessment & Plan documented in this encounterCrossroads Regional Medical CenterBuwqhfbwaw40-45-5382 History of Present illness Narrative* SHANNAN Mitchell - 01/10/2025 11:30 AM EDTAssociated Order(s): L Inj/Asp: R knee Post-Procedure Diagnose(s): Arthritis of right knee Images from the original note were not included. Orthopedic Office note: NAME: Atiya Jha : 1940 (JULIO Lemus/HALIE, DR SUAZO) RT KNEE PAIN - PAIN SINCE 2019, NKI. INCREASED PAIN ~ 1 MTH. XRAY TODAY EPIC 01/10/25 XRAY EPIC 06/01/23 XRAY EXA 06/13/20 MEN'S GARMENT FITTER BRACE WALKING SLOWLY WITH A CANE. PAIN ANTERIOR AND POSTERIOR. +TYL. USES A RUB ON CREAM. +SWELLING. BURNING THROUGHOUT THE NIGHT. DENIES POPPING, GRINDING. HAS HAD ONE TIME WHERE HER KNEE GAVE OUT. WAKES AT HS. TRIED KNEE BRACE, CAUSED INCREASED PAIN POSTERIOR. HAD A HEART ATTACK A COUPLE MONTHS AGO, DOING PHYSICAL THERAPY AT [facility]. Knee Musculoskeletal Exam Gait Antalgic: right Inspection [...] requiring urgent evaluation. 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 documented in this encounterCrossroads Regional Medical CenterDckftvephm54-30-2271 History of Present illness Narrative* Jamia Ndiaye [...] versus bypass surgery. She was transferred to [place] . I reviewed the case with Dr. [...] Scribe Attestation By signing my name below, Mandy Johnson LPN , Scrkristal attest that this documentation has been prepared under the direction and in the presence of MD Casi. Provider Attestation - Scribe documentation All medical record entries made by the Scribe were at my direction and personally dictated by me. Mark reviewed the chart and agree that the record accurately reflects my personal performance of the history, physical exam, discussion and plan. documented in this encounterHol[facility] Work Phone: 1(318) 313-445805-09-2025 Instructions* Patient Instructions* Mandy Holland LPN - [...] through Care Everywhere. * Heart Healthy Diet (Serbian) documented in this encounterHolmes [facility] Work Phone: 1(616) 270-954505-03-2025 Plan of care note* Care Plan - Jennifer Calderón RN - 12/03/2024 10:30 AM EDT The clinical goals for the shift include Patient will rejmain free from injury throughout entire shift, [facility]05-03-2025 Miscellaneous Notes* Care Plan - Jennifer Calderón RN - 12/03/2024 10:30 AM EDT The clinical goals for the shift include Patient will rejmain free from injury throughout entire shift, * Significant Event - Mariajose Rendon RN - 12/02/2024 3:30 PM EDT Pt transported to [address] [place] [address] via bed. Charting/care continued on unit. * [...] Attending: * Ann Howard - Primary Resident/Fellow/Other Store Operations Associate: Surgeons and Role: * No surgeons found with a matching role * Indications: Pre-op Diagnosis * NSTEMI (non-ST elevated myocardial infarction) (Multi) [I21.4] Post-procedure diagnosis: Post-op Diagnosis * NSTEMI (non-ST elevated myocardial infarction) (Multi) [I21.4] Procedure(s): PCI OLE Stent- Coronary 53516 - [place] PRQ TRLUML CORONARY STENT W/ANGIO ONE ART/BRNC Procedure Findings: 99% stenosis of ostial LAD including distal left main, successful PTCA drug- eluting stent of ostialLAD and distal left main Description of the Procedure: PTCA drug-eluting stent of ostial LAD and distal left main Complications: None Stents/Implants: Implants Stent Stent, [place] Bayard Ole, 2.50 X 15rx - [id number] - Implanted Inventory item: STENT, ANANDA FRONTIER OLE, 2.50 X 15RX Model/Cat number: [id number] 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 Any Specimen(s) Removed: No specimens collected during this procedure. Disposition: Dual antiplatelet therapy, follow-up with primary estimation manager in [place] Electronically signed by: Ann Howard MD, 12/02/2024 1:02 PM * Pre-Sedation Documentation - Ann Howard MD - 12/02/2024 12:14 PM EDT Sedation Plan ASA 3 Mallampati class: III. Risks, benefits, and alternatives discussed with patient. * Documentation Clarification Note - Nir Mni MD - 12/01/2024 8:15 AM EDT PATIENT: ATIYA JHA : 1940 ADMIT DATE: 11/29/2024 10:53 AM DISCH DATE: RESPONDING PROVIDER #: [id number] PROVIDER RESPONSE TEXT: Chronic Diastolic Congestive Heart [...] Clinical Documentation Reviewer Query created by: Thiago Darling on 12/01/2024 8:10 AM Electronically signed by: [...] include testingmedications and montioring. documented in this [facility] Work Phone: 1(284) 846-258705-03-2025 History of Present illness Narrative* Chay Manuel DO - 12/03/2024 10:07 AM EDT [facility] Heart Progress Note Rounding ALEXANDRE/Shape Hand: Chay Manuel DO, Primary Shape Hand: Dr Ndiaye Date: 12/03/2024 Patient: Atiya Jha [...] Units 12/03/24 0604 12/02/24 0559 12/01/24 0537 WBC AUTO x10*3/uL 6.9 [...] Units 12/03/24 0604 12/02/24 0559 12/01/24 0537 SODIUM mmol/L 136 137 138 [...] Jonas Baxter 11/30/2024 8:56 AM Dictation workstation: [id number] Lower extremity vein mapping bilateral Final Result Sonographic vein mapping procedure as detailed above MACRO: None Signed by: Jonas Baxter 11/30/2024 8:39 AM Dictation workstation: [id number] Carotid duplex bilateral Final Result Positive for [...] Jonas Baxter 11/30/2024 8:23 AM Dictation workstation: [id number] No echocardiogram results found for the past [...] Jonas Baxter 11/30/2024 8:56 AM Dictation workstation: [id number] Lower extremity vein mapping bilateral Final Result Sonographic vein mapping procedure as detailed above MACRO: None Signed by: Jonas Baxter 11/30/2024 8:39 AM Dictation workstation: [id number] Carotid duplex bilateral Final Result Positive for [...] Jonas Baxter 11/30/2024 8:23 AM Dictation workstation: [id number] PROBLEM LIST Problem List[3] ASSESSMENT: CAD multivessel [...] note, this documentation is completed using the [employer] system (voice recognition software). There may be [...] heparin, melatonin, nitroglycerin, ondansetron OR ondansetron * DanielaABDULLAHI Garnett - 12/02/2024 8:00 AM EDT [facility] Heart Progress Note Rounding ALEXANDRE/Shape Hand: ABDULLAHI Rome, Primary Shape Hand: Dr Ndiaye Date: 12/02/2024 Patient: Atiya Jha [...] Results from last 7 days Lab Units 12/02/2459 12/01/2453612/01/24 0008 WBC AUTO x10*3/uL 6.4 6.0 6.6 RBC AUTO x10*6/uL 3.57* 3.55* 3.48* HEMOGLOBIN g/dL 11.4* 11.2* 11.2* HEMATOCRIT % 33.3* 33.7* 32.8* MCV fL 93 95 94 MCH pg 31.9 31.5 32.2 MCHC g/dL 34.2 33.2 34.1 RDW % 13.0 12.9 13.1 PLATELETS AUTO x10*3/uL 171 163 152 CMP: Results from last 7 days Lab Units 12/02/24 0559 12/01/24 0511/30/24 0356 SODIUM mmol/L 137 138 138 POTASSIUM [...] last 7 days Lab Units 12/02/24 0559 12/01/2437 11/30/24 0356 SODIUM mmol/L 137 138 138 POTASSIUM mmol/L 3.9 3.8 3.8 CHLORIDE mmol/L 102 102 104 CO2 mmol/L 29 27 27 BUN mg/dL 16 19 16 CREATININE mg/dL 0.89 0.91 0.71 CALCIUM mg/dL 9.4 9.2 9.3 GLUCOSE mg/dL 101* 100* 107* Magnesium: Results from last 7 days Lab Units 12/02/2459 12/01/2453611/30/24 0356 MAGNESIUM mg/dL 2.01 1.93 1.98 Troponin: [...] Jonas Baxter 11/30/2024 8:56 AM Dictation workstation: [id number] Lower extremity vein mapping bilateral Final Result Sonographic vein mapping procedure as detailed above MACRO: None Signed by: Jonas Baxter 11/30/2024 8:39 AM Dictation workstation: [id number] Carotid duplex bilateral Final Result Positive for [...] Jonas Baxter 11/30/2024 8:23 AM Dictation workstation: [id number] Cardiac Catheterization Procedure (Results Pending) No echocardiogram [...] Jonas Baxter 11/30/2024 8:56 AM Dictation workstation: [id number] Lower extremity vein mapping bilateral Final Result Sonographic vein mapping procedure as detailed above MACRO: None Signed by: Jonas Baxter 11/30/2024 8:39 AM Dictation workstation: [id number] Carotid duplex bilateral Final Result Positive for [...] Jonas Baxter 11/30/2024 8:23 AM Dictation workstation: [id number] Cardiac Catheterization Procedure (Results Pending) PROBLEM LIST [...] as documented by Daniela Portillo, [place] NENA, DOCK SUPERINTENDENT and baljeet. In summary, Mrs. Atiya Jha [...] recurrent chest discomfort. She was admitted to [facility] and was noted tohave an acute non-STEMI with a troponin level of 700. EKG did not show any acute ST changes. She underwent repeat cardiac catheterization and was found to have ostial stenosis of the left anterior descending artery. It was opted to have her transferred to [facility] for evaluation of possible coronary artery bypass [...] would like to proceed Matt Portillo CNP [facility] Of note, this documentation is completed using the [employer] system (voice recognition software). There may be [...] cardiovascular exam NSTEMI (non-ST elevated myocardial infarction) ([facility]) * ABDULLAHI Diaz - 12/01/2024 12:20 PM [...] Rate 67 BPM Atrial Rate 67 BPM KS Interval 196 ms QRS Duration 86 ms QT Interval 440 ms QTC Calculation(Bazett) 464 ms P [place] 49 degrees R [place] 15 degrees T [place] 82 degrees QRS Count 11 beats Q [...] Rate 61 BPM Atrial Rate 61 BPM [place] Interval 168 ms QRS Duration 88 ms QT Interval 438 ms QTC Calculation(Bazett) 440 ms P [place] 27 degrees R [place] 50 degrees T [place] 85 degrees QRS Count 10 beats Q [...] size and atherosclerosis. COMPARISON: None. ACCESSION NUMBER(S): [id number] ORDERING CLINICIAN: IRINEO LAUGHLIN TECHNIQUE: Helical data [...] Jonas Baxter 11/30/2024 8:56 AM Dictation workstation: [id number] Lower extremity vein mapping bilateral Result Date: 11/30/2024 Interpreted By: Jonas Baxter, STUDY: [facility] LOWER EXTREMITY VEIN MAPPING BILATERAL; ; 11/29/2024 5:34 pm INDICATION: Signs/Symptoms:pre-op CABG. ,Z01.810 Encounter for preprocedural cardiovascular examination,Z01.818 Encounter for other preprocedural examination,I24.81 Acute coronary microva scular dysfunction (Multi) COMPARISON: None. ACCESSION NUMBER(S): [id number] ORDERING CLINICIAN: IRINEO LAUGHLIN TECHNIQUE: Sonographic lower [...] Jonas Baxter 11/30/2024 8:39 AM Dictation workstation: [id number] Carotid duplex bilateral Result Date: 11/30/2024 Interpreted By: Jonas Baxter, STUDY: [facility] US CAROTID ARTERY DUPLEX BILATERAL; 11/29/2024 5:34 pm INDICATION: Signs/Symptoms:pre-op cardiac surgery. ,Z01.810 Encounter for preprocedural cardiovascular examination,Z09 Encounter for follow-up examination after completed treatment for conditionsother than malignant neoplasm COMPARISON: None. ACCESSION NUMBER(S): [id number] ORDERING CLINICIAN: IRINEO LAUGHLIN TECHNIQUE: Vascular ultrasound [...] Jonas Baxter 11/30/2024 8:23 AM Dictation workstation: [id number] Assessment & Plan NSTEMI (non-ST elevated myocardial [...] for aggressive coronaries factor modification and referral [facility] for evaluation for either high [...] overall care of this patient. Noemi Cisneros APRN-DOCK SUPERINTENDENT [1] aspirin, 81 mg, oral, Daily atorvastatin, [...] ABDULLAHI Rome - 12/01/2024 8:48 AM EDT [facility] Heart Progress Note Rounding ALEXANDRE/Shape Hand: ABDULLAHI Rome, Primary Shape Hand: Dr Ndiaye Date: 12/01/2024 Patient: Atiya Jha [...] Results from last 7 days Lab Units 12/01/2437 12/01/24 0008 11/30/24 0356 WBC AUTO x10*3/uL 6.0 6.6 5.5 RBC AUTO x10*6/uL 3.55* 3.48* 3.59* HEMOGLOBIN g/dL 11.2* 11.2* 11.3* HEMATOCRIT % 33.7* 32.8* 34.1* MCV fL 95 94 95 MCH pg 31.5 32.2 31.5 MCHC g/dL 33.2 34.1 33.1 RDW % 12.9 13.1 13.2 PLATELETS AUTO x10*3/uL 163 152 147* CMP: Results from last 7 days Lab Units 12/01/2437 11/30/24 0356 SODIUM mmol/L 138 138 POTASSIUM [...] Results from last 7 days Lab Units 12/01/2437 11/30/24 0356 SODIUM mmol/L 138 138 POTASSIUM [...] Jonas Baxter 11/30/2024 8:56 AM Dictation workstation: [id number] Lower extremity vein mapping bilateral Final Result Sonographic vein mapping procedure as detailed above MACRO: None Signed by: Jonas Baxter 11/30/2024 8:39 AM Dictation workstation: [id number] Carotid duplex bilateral Final Result Positive for [...] Jonas Baxter 11/30/2024 8:23 AM Dictation workstation: [id number] No echocardiogram results found for the past [...] Jonas Baxter 11/30/2024 8:56 AM Dictation workstation: [id number] Lower extremity vein mapping bilateral Final Result Sonographic vein mapping procedure as detailed above MACRO: None Signed by: Jonas Baxter 11/30/2024 8:39 AM Dictation workstation: [id number] Carotid duplex bilateral Final Result Positive for [...] Jonas Baxter 11/30/2024 8:23 AM Dictation workstation: [id number] PROBLEM LIST Problem List[3] ASSESSMENT: CAD Hypertension [...] recurrent chest discomfort. She was admitted to [facility] and was noted tohave an acute non-STEMI with a troponin level of 700. EKG did not show any acute ST changes. She underwent repeat cardiac catheterization and was found to have ostial stenosis of the left anterior descending artery. It was opted to have her transferred to [facility] for evaluation of possible coronary artery bypass [...] with cardiothoracic team today Matt Portillo CNP [facility] Of note, this documentation is completed using the WeBRANDation system (voice recognition software). There may be [...] were you homeless or living in a fpc (including now)? N Transportation Needs In the [...] of Service 0-30 min Pt transferred from [facility] . Met with patient at bedside. Pt resides at home with spouse. Resides in [facility]. Follows with PCP Ivan Barreto in [place]. Preferred pharmacy is [facility] in [place]. Pt plan is home once medically able. Awaiting medical plan at this time. Will continue to follow if needs should arise. documented in this [facility] Work Phone: 1(239) 330-774305-03-2025 Hospital course Narrative* Nir Min MD - [...] Your Medications These medications were sent to [facility] - [place], [place] - [address] Re[address] By [facility] [address] [facility] [address] [place] [place] [address] losartan 25 mg tablet ranolazine 500 mg [...] Center 12/09/2024 11:30 AM Jamia Ndiaye MD [id number] [place] 09/01/2025 10:50 AM Jamia Ndiaye MD [id number] [place] Nir Min MD documented in this [facility] Work Phone: 1([phone]) 640-442705-02-2025 care manager Note* Significant Event - Mariajose Rendon RN - 12/02/2024 3:30 PM EDT Pt transported to [address] [place] [address] via bed. Charting/care continued on unit. [facility]05-02-2025 care manager Note* Significant Event - Mariajose Rendon RN - 12/02/2024 2:56 PM EDT Yellow folder given to Pt containing: Post PCI discharge instructions/restrictions, Plavix education, cardiac rehab referral, and stent/vascade card. This information was reviewed with Pt and family,they answer follow up questions correctly. Right groin site remains soft and stable with no hematoma or oozing. [facility] Work Phone: 1([phone]) 485-461205-02-2025 care manager Note* Significant Event - Mariajose Rendon RN - 12/02/2024 2:22 PM EDT HOB increased to 30 degrees, right groin site remains soft and stable with no hematoma or oozing. Pt sitting up drinking ice water, she declines food at this time. [facility] Work Phone: 1([phone]) 978-122905-02-2025 care manager Note* Significant Event - Mariajose Rendon RN - 12/02/2024 2:05 PM EDT Leeann Tejada CNP in room speaking with Pt and family. [facility] Work Phone: 1([phone]) 260-343605-02-2025 Hospital Discharge instructions* Discharge Instructions* ABDULLAHI Kuo [...] for any reason without talking to your estimation manager first. If any of these were prescribed, [...] have any concerns, you may contact the Retail Wireless Sales Representative or if any of these symptoms become excessive, contact your estimation manager or go to the emergency room. OTHER [...] DO NOT have an appointment with your estimation manager within 2-4 weeks following your procedure, please contact their office. documented in this [facility] Work Phone: 1(660) 959-944205-02-2025 care manager Note* Significant Event - Mariajose Rendon RN - 12/02/2024 1:27 PM EDT Upon arrival to unit focused assessment performed and WDL. Right femoral site soft and stable with no hematoma or oozing. Pt denies dizziness/lightheadedness/pain. Educated on current restrictions r/t right femoral arterial puncture. EKG paged to bedside. Called [place] to notify them to send family down. [facility] Work Phone: 1(753) 611-590405-02-2025 Surgery Postoperative evaluation and management note* Post-Procedure Note - Ann Howard MD - 12/02/2024 12:30 PM EDT Physician Transition of Care Summary Invasive Cardiovascular Lab Procedure Date: 12/02/2024 Attending: * Ann Howard - Primary Resident/Fellow/Other Store Operations Associate: Surgeons and Role: * No surgeons found with a matching role * Indications: Pre-op Diagnosis * NSTEMI (non-ST elevated myocardial infarction) (Multi) [I21.4] Post-procedure diagnosis: Post-op Diagnosis * NSTEMI (non-ST elevated myocardial infarction) (Multi) [I21.4] Procedure(s): PCI OLE Stent- Coronary 72461 - KS PRQ TRLUML CORONARY STENT W/ANGIO ONE ART/[facility] Procedure Findings: 99% stenosis of ostial LAD including distal left main, successful PTCA drug- eluting stent of ostialLAD and distal left main Description of the Procedure: PTCA drug-eluting stent of ostial LAD and distal left main Complications: None Stents/Implants: Implants Stent Stent, Ananda Bayard Ole, 2.50 X 15rx - [id number] - Implanted Inventory item: STENT, ANANDA FRONTIER OLE, 2.50 X 15RX Model/Cat number: [id number] 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 Any Specimen(s) Removed: No specimens collected during this procedure. Disposition: Dual antiplatelet therapy, follow-up with primary estimation manager in [place] Electronically signed by: Ann Howard MD, 12/02/2024 1:02 PM [facility] Work Phone: 1(752) 757-881105-02-2025 Nurse procedure note* Pre-Sedation Documentation - Ann Howard MD - 12/02/2024 12:14 PM EDT Sedation Plan ASA 3 Mallampati class: III. Risks, benefits, and alternatives discussed with patient. [facility] Work Phone: 1(135) 666-710705-02-2025 Attending History and physical note* Ann Howard MD - 12/02/2024 12:14 PM EDT H&P reviewed. The patient was examined and there are no changes to the H&P. Source Note - Giovani Prado MD - 11/30/2024 8:07 AM EDT Cardiology Consult Note Date: 11/30/2024 Patient name: Atiya Jha Date of admission: 11/29/2024 10:53 AM Date of : 1940 Time of Consult: 8:07 AM Consulting Shape Hand: Dr. Giovani Portillo, MARKETING RESEARCH INTERN, DOCK SUPERINTENDENT Primary Shape Hand: Dr Ndiaye Referring Provider: Dr Min Admission Diagnosis: NSTEMI (non-ST elevated myocardial infarction) (Multi) History of Present Illness: Atiya Jha is a 84 y.o. female patient who is being at the request of Dr. Min for inpatient consultation of angina. She was admitted on 11/29/2024. Previous [facility] and [facility] records have been reviewed in detail. [...] keep greater than 2.0 Matt Portillo CNP [facility] Of note, this documentation is completed using the Gemmyo Dictation system (voice recognition software). There may [...] recurrent chest discomfort. She was admitted to [facility] and was noted tohave an acute non-STEMI with a troponin level of 700. EKG did not show any acute ST changes. She underwent repeat cardiac catheterization and was found to have ostial stenosis of the left anterior descending artery. It was opted to have her transferred to [facility] for evaluation of possible coronary artery bypass [...] exam NSTEMI (non-ST elevated myocardial infarction) (Multi) [facility] Work Phone: 1([phone]) 978-778405-02-2025 History and physical note* Ann Howard MD - 12/02/2024 12:14 PM EDT H&P reviewed. The patient was examined and there are no changes to the H&P. Source Note - Giovani Prado MD - 11/30/2024 8:07 AM EDT Cardiology Consult Note Date: 11/30/2024 Patient name: Atiya Jha Date of admission: 11/29/2024 10:53 AM Date of : 1940 Time of Consult: 8:07 AM Consulting Shape Hand: Dr. Giovani Portillo APRN, DOCK SUPERINTENDENT Primary Shape Hand: Dr Ndiaye Referring Provider: Dr Min Admission Diagnosis: NSTEMI (non-ST elevated myocardial infarction) (Multi) History of Present Illness: Atiya Jha is a 84 y.o. female patient who is being at the request of Dr. Min for inpatient consultation of angina. She was admitted on 11/29/2024. Previous [facility] and [facility] records have been reviewed in detail. [...] keep greater than 2.0 Matt Portillo CNP [facility] Of note, this documentation is completed using the WeBRANDation system (voice recognition software). There may be [...] recurrent chest discomfort. She was admitted to [facility] and was noted tohave an acute non-STEMI with a troponin level of 700. EKG did not show any acute ST changes. She underwent repeat cardiac catheterization and was found to have ostial stenosis of the left anterior descending artery. It was opted to have her transferred to [facility] for evaluation of possible coronary artery bypass [...] Patient had chest pain and went to [facility] in which she went for a cardiac catheterization which was on successful. Troponins exceeding 700.Patient stopped taking aspirin and Plavix a few days ago in preparation for urological surgery to be done by Dr. 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 Patient had been compliant with her medication regimen. Patient was then transferred to [facility] per Dr. Howard request. Plan for [...] provider. Assessment/Plan NSTEMI Chest pain -Transferred from [facility] -Patient had cath yesterday with unsuccessful PCI [...] note, this documentation is completed using the WeBRANDation system (voice recognition software). There may be spelling and/or grammatical errors that were not corrected prior to final submission. [1] No family history on file. documented in this [facility] Work Phone: 1(456) 832-711505-01-2025 Note* Documentation Clarification Note - Nir Min MD - 12/01/2024 8:15 AM EDT PATIENT: ATIYA JHA : 1940 ADMIT DATE: 11/29/2024 10:53 AM DISCH DATE: RESPONDING PROVIDER #: [id number] PROVIDER RESPONSE TEXT: Chronic Diastolic Congestive Heart [...] Clinical Documentation Reviewer Query created by: Thiago Darling on 12/01/2024 8:10 AM Electronically signed by: NIR MIN MD 12/01/2024 8:15 AM [facility] Work Phone: 1(564) 851-907605-01-2025 Plan of care note* Care Plan - [...] Recommendations to address these barriers include rest. [facility]04-30-2025 Nurse Note* Cecilia Garcia RN - 11/30/2024 7:39 PM EDT Late entry 1830 pt complain chest pain radiating left chest to back under breast, bp 142/60 hr 66 Md notified, EKG stat ordered, troponin ordered nitroglycerin and morphine pulled from SAFCell saw pt at bedside trop drawn @ 1837 EKG completed @1838 Bp 139/65 map 93 hr 65 o2 95% pain 6/10 @1839 nitroglycerin #1 given 104/57 map 78 hr 69 o2 92% pain 3/10 @ 1845 nitroglycerin #2 given 95/50 map 70 hr 89 o2 92% pain free @ 1850 115/62 map 82 hr 70 o2 95% pain free@ 1855 [facility]04-30-2025 Nurse Note* Cecilia Garcia RN - 11/30/2024 7:39 PM EDT Late entry 1830 pt complain chest pain radiating left chest to back under breast, bp 142/60 hr 66 Md notified, EKG stat ordered, troponin ordered nitroglycerin and morphine pulled from omni cell saw pt at bedside trop drawn [...] 95% pain free@ 1855 documented in this [facility] Work Phone: 1(962) 398-433104-30-2025 Plan of care note* Care Plan - [...] address these barriers include testingmedications and montioring. [facility] Work Phone: 1(735) 219-470404-30-2025 Consult note* SRIDHAR Diaz CNP - 11/30/2024 [...] HLD and mild aortic stenosis. Presented to [facility] ED on 11/26 with complaints of [...] for aggressive coronaries factor modification and referral [facility] for evaluation for either high risk PCI of the distal left main and proximal LAD versus two-vessel bypass surgery. Patient was then transferred to [facility] for further recommendations. At the time of [...] Yellow, Dark-Yellow Appearance, Urine Clear Clear Specific [place], Urine 1.021 1.005 - 1.035 pH, Urine [...] Rate 78 BPM Atrial Rate 78 BPM KS Interval 192 ms QRS Duration 88 ms QT Interval 414 ms QTC Calculation(Bazett) 471 ms P [place] 81 degrees R [place] 63 degrees T [place] 88 degrees QRS Count 13 beats Q [...] size and atherosclerosis. COMPARISON: None. ACCESSION NUMBER(S): [id number] ORDERING CLINICIAN: IRINEO LAUGHLIN TECHNIQUE: Helical data [...] Jonas Baxter 11/30/2024 8:56 AM Dictation workstation: [id number] Lower extremity vein mapping bilateral Result Date: 11/30/2024 Interpreted By: Jonas Baxter, STUDY: [facility] LOWER EXTREMITY VEIN MAPPING BILATERAL; ; 11/29/2024 5:34 pm INDICATION: Signs/Symptoms:pre-op CABG. ,Z01.810 Encounter for preprocedural cardiovascular examination,Z01.818 Encounter for other preprocedural examination,I24.81 Acute coronary microva scular dysfunction (Multi) COMPARISON: None. ACCESSION NUMBER(S): [id number] ORDERING CLINICIAN: IRINEO LAUGHLIN TECHNIQUE: Sonographic lower [...] Jonas Baxter 11/30/2024 8:39 AM Dictation workstation: [id number] Carotid duplex bilateral Result Date: 11/30/2024 Interpreted By: Jonas Baxter, STUDY: [facility] US CAROTID ARTERY DUPLEX BILATERAL; 11/29/2024 5:34 pm INDICATION: Signs/Symptoms:pre-op cardiac surgery. ,Z01.810 Encounter for preprocedural cardiovascular examination,Z09 Encounter for follow-up examination after completed treatment for conditionsother than malignant neoplasm COMPARISON: None. ACCESSION NUMBER(S): [id number] ORDERING CLINICIAN: IRINEO LAUGHLIN TECHNIQUE: Vascular ultrasound [...] Jonas Baxter 11/30/2024 8:23 AM Dictation workstation: [id number] Assessment/Plan #NSTEMI #CAD (Hx of prior PCI [...] for aggressive coronaries factor modification and referral [facility] for evaluation for either high [...] acetaminophen OR acetaminophen, heparin, ondansetron OR ondansetron [facility] Work Phone: 1([phone]) 221-667204-30-2025 Consult note* SRIDHAR Diaz CNP - 11/30/2024 [...] HLD and mild aortic stenosis. Presented to [facility] ED on 11/26 with complaints of [...] for aggressive coronaries factor modification and referral [facility] for evaluation for either high risk PCI of the distal left main and proximal LAD versus two-vessel bypass surgery. Patient was then transferred to [facility] for further recommendations. At the time of [...] Yellow, Dark-Yellow Appearance, Urine Clear Clear Specific [place], Urine 1.021 1.005 - 1.035 pH, Urine [...] Rate 78 BPM Atrial Rate 78 BPM KS Interval 192 ms QRS Duration 88 ms QT Interval 414 ms QTC Calculation(Bazett) 471 ms P [place] 81 degrees R [place] 63 degrees T [place] 88 degrees QRS Count 13 beats Q [...] size and atherosclerosis. COMPARISON: None. ACCESSION NUMBER(S): [id number] ORDERING CLINICIAN: IRINEO LAUGHLIN TECHNIQUE: Helical data [...] Fleischner Society 2017, Radiology. 2017 Jan;284 (1):228-243.) [email or web address] Signed by: Jonas Baxter 11/30/2024 8:56 AM Dictation workstation: [id number] Lower extremity vein mapping bilateral Result Date: 11/30/2024 Interpreted By: Jonas Baxter, STUDY: [facility] LOWER EXTREMITY VEIN MAPPING BILATERAL; ; 11/29/2024 5:34 pm INDICATION: Signs/Symptoms:pre-op CABG. ,Z01.810 Encounter for preprocedural cardiovascular examination,Z01.818 Encounter for other preprocedural examination,I24.81 Acute coronary microva scular dysfunction (Multi) COMPARISON: None. ACCESSION NUMBER(S): [id number] ORDERING CLINICIAN: IRINEO LAUGHLIN TECHNIQUE: Sonographic lower [...] Jonas Baxter 11/30/2024 8:39 AM Dictation workstation: [id number] Carotid duplex bilateral Result Date: 11/30/2024 Interpreted By: Jonas Baxter, STUDY: [facility] US CAROTID ARTERY DUPLEX BILATERAL; 11/29/2024 5:34 pm INDICATION: Signs/Symptoms:pre-op cardiac surgery. ,Z01.810 Encounter for preprocedural cardiovascular examination,Z09 Encounter for follow-up examination after completed treatment for conditionsother than malignant neoplasm COMPARISON: None. ACCESSION NUMBER(S): [id number] ORDERING CLINICIAN: IRINEO LAUGHLIN TECHNIQUE: Vascular ultrasound [...] Jonas Baxter 11/30/2024 8:23 AM Dictation workstation: [id number] Assessment/Plan #NSTEMI #CAD (Hx of prior PCI [...] for aggressive coronaries factor modification and referral [facility] for evaluation for either high [...] 1940 Time of Consult: 8:07 AM Consulting Shape Hand: Dr. Giovani Portillo, MARKETING RESEARCH INTERN, DOCK SUPERINTENDENT Primary Shape Hand: Dr Ndiaye Referring Provider: Dr Min Admission Diagnosis: NSTEMI (non-ST elevated myocardial infarction) (Multi) History of Present Illness: Atiya Jha is a 84 y.o. female patient who is being at the request of Dr. Min for inpatient consultation of angina. She was admitted on 11/29/2024. Previous [facility] and [facility] records have been reviewed in detail. [...] keep greater than 2.0 Matt Portillo CNP [facility] Of note, this documentation is completed using the Gemmyo Dictation system (voice recognition software). There may [...] recurrent chest discomfort. She was admitted to [facility] and was noted tohave an acute non-STEMI with a troponin level of 700. EKG did not show any acute ST changes. She underwent repeat cardiac catheterization and was found to have ostial stenosis of the left anterior descending artery. It was opted to have her transferred to [facility] for evaluation of possible coronary artery bypass [...] elevated myocardial infarction) (Multi) documented in this [facility] Work Phone: 1(510) 367-958004-30-2025 NoteSonographic vein mapping procedure as detailed above MACRO: None Signed by: Jonas Baxter 11/30/2024 8:39 AM Dictation workstation: [id number] Consult note* Giovani Prado MD - 11/30/2024 8:07 AM EDTAssociated Order(s): IP CONSULT TO CARDIOLOGY Cardiology Consult Note Date: 11/30/2024 Patient name: Atiya Jha Date of admission: 11/29/2024 10:53 AM Date of : 1940 Time of Consult: 8:07 AM Consulting Shape Hand: Dr. Giovani Portillo, MARKETING RESEARCH INTERN, DOCK SUPERINTENDENT Primary Shape Hand: Dr Ndiaye Referring Provider: Dr Min Admission Diagnosis: NSTEMI (non-ST elevated myocardial infarction) (Multi) History of Present Illness: Atiya Jha is a 84 y.o. female patient who is being at the request of Dr. Min for inpatient consultation of angina. She was admitted on 11/29/2024. Previous [facility] and [facility] records have been reviewed in detail. [...] keep greater than 2.0 Matt Portillo CNP [facility] Of note, this documentation is completed using the WeBRANDation system (voice recognition software). There may be [...] recurrent chest discomfort. She was admitted to [facility] and was noted tohave an acute non-STEMI with a troponin level of 700. EKG did not show any acute ST changes. She underwent repeat cardiac catheterization and was found to have ostial stenosis of the left anterior descending artery. It was opted to have her transferred to [facility] for evaluation of possible coronary artery bypass [...] exam NSTEMI (non-ST elevated myocardial infarction) (Multi) [facility] Work Phone: 1(250) 293-120404-29-2025 History and physical note* Valorie Marisela Henriquez, ZAID-DOCK SUPERINTENDENT - 11/29/2024 4:33 PM EDT History Of Present Illness Atiya Jha is a 84 y.o. female with PMH hypertension, hyperlipidemia, aortic stenosis, and CADwith multiple PCI who is presenting with NSTEMI. Patient had chest pain and went to [facility] in which she went for a cardiac catheterization which was on successful. Troponins exceeding 700.Patient stopped taking aspirin and Plavix a few days ago in preparation for urological surgery to be done by Dr. 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 Patient had been compliant with her medication regimen. Patient was then transferred to [facility] per Dr. Howard request. Plan for [...] provider. Assessment/Plan NSTEMI Chest pain -Transferred from [facility] -Patient had cath yesterday with unsuccessful PCI [...] note, this documentation is completed using the Gemmyo Dictation system (voice recognition software). There may be spelling and/or grammatical errors that were not corrected prior to final submission. [1] No family history on file. [facility] Work Phone: 1(113) 385-221704-28-2025 Progress note Author Jamia Ndiaye [facility] Date/TimeApril 2024 1:26pm[address] [address] Cardiology Progress Note Signed Patient: Atiya Jah MR#: [id number] : 1940 Acct:[id number] Age/Sex: 84 / F Adm Date: 5 Loc: Room: [address] [place] [address] Type: ADM IN Attending Dr: Nolan Ballesteros [...] % (Auto) 58.6 Lymph % (Auto) 26.0 [place] % (Auto) 12.4 Eos % (Auto) 2.4 Baso % (Auto) 0.6 Nucleat RBC Rel Count 0.1 Neut # (Auto) 3.6 Lymph # (Auto) 1.6 Austin # (Auto) 0.8 Eos # (Auto) 0.2 [...] agreed Documented By: Jamia Ndiaye MD 11/28/24 5407 Signed By: <Electronically signed by MD Jamia Ndiaye> 11/28/24 [facility]3 [facility] Work Phone: 1(932) 713-303804-28-2025 [place] [address] Cardiac Catheterization Note Signed Patient: Atiya Jha MR#: [id number] : 1940 Acct:[id number] Age/Sex: 84 / F Adm Date: 5 Loc: Room: [address] [place] [address] Type: ADM IN Attending Dr: Noaln Ballesteros DO Copies to: Ivan Barreto,DO Nolan L LindblDO Jamia dukes MD~ Cardiac Catheterization (Left) DATE/PROVIDER 11/28/2024 Jamia [...] consent. The patient was brought to the specialist employee labor relations where the right groin was draped and prepared in the usual sterile fashion. A total of 10 mL of 2% lidocaine were used to anesthetize the right groin. By using the modified Seldinger technique, a 4-Chinese femoral arterial sheath was placed without difficulty. Initially, 4-Chinese JL4 was advanced to the left main [...] complication SUMMARY OF FINDINGS CCS Classification: CCS [id number] at rest or w/ any activity Dominance: [...] MD 11/28/24 1340 Signed By: 11/28/24 1354 [facility]04-28-2025 [place] [address] Cardiology Progress Note Signed Patient: Atiya Jha MR#: [id number] : 1940 Acct:[id number] Age/Sex: 84 / F Adm Date: 5 Loc: Room: [address] [place] [address] Type: ADM IN Attending Dr: Nolan Ballesteros [...] % (Auto) 58.6 Lymph % (Auto) 26.0 [place] % (Auto) 12.4 Eos % (Auto) 2.4 Baso % (Auto) 0.6 Nucleat RBC Rel Count 0.1 Neut # (Auto) 3.6 Lymph # (Auto) 1.6 [place] # (Auto) 0.8 Eos # (Auto) 0.2 [...] Ndiaye MD 11/28/241324 Signed By: 11/28/24 1326 [facility]04-28-2025 Progress note Author Nloan Ballesteros [facility]Note Date/TimeApril 2024 10:[address] [address] Hospitalist Progress Note Signed Patient: Atiya Jha MR#: [id number] : 1940 Acct:[id number] Age/Sex: 84 / F Adm Date: 5 Loc: Room: [address] [place] [address] Type: ADM IN Attending Dr: Nolan Ballesteros [...] been working with a surgeon out of [place] to do surgery on her lumbar spine. [...] Dose Route Start Last Admin Trade Name Gina PRN Reason Stop Dose Admin Acetaminophen 650 mg 11/25/24 16:32 Acetaminophen 325 Mg Tablet PO 11/25/25 16:31 Q4H PRN Pain Scale 1 - 5 Albuterol 2.5 mg 11/25/24 16:32 Albuterol Neb 2.5 Mg/3 Ml Vial.Neb INHALATION 11/25/25 16:31 Q2H PRN Shortness Of Breath Aspirin 81 mg 11/26/24 09:00 11/28/24 08:58 Aspirin 81 Mg Tablet.Dr PO 11/26/25 08:59 [...] 1 each 11/25/24 15:49 Consult To Pharmacy [facility] 11/25/25 15:48 .PHACONSULT PRN ZZ.Pharmacy Consult Protocol Miscellaneous Information 1 each 11/26/24 14:52 Consult To Pharmacy [facility] 11/26/25 14:51 .PHACONSULT PRN ZZ.Pharmacy Consult Protocol Nitroglycerin 0.4 mg 11/25/24 16:32 Nitroglycerin 0.4 Mg Tab.Subl SUBLINGUAL 11/25/25 16:31 Q5M PRN Chest Pain Pantoprazole Sodium 40 mg 11/26/24 09:00 11/28/24 08:58 Pantoprazole 40 Mg Tablet. PO 11/26/25 08:59 [...] back pain: Plan Unstable angina, non-ST elevation IA Cardiac catheterization due to plaque rupture with [...] signed by Nolan Ballesteros DO> 11/28/[address] [facility] Work Phone: 1(338) 235-716104-28-2025 [place] [address] Hospitalist Progress Note Signed Patient: Atiya Jha MR#: [id number] : 1940 Acct:[id number] Age/Sex: 84 / F Adm Date: 5 Loc: Room: [address] [place] [address] Type: ADM IN Attending Dr: Nolan Ballesteros [...] been working with a surgeon out of [place] to do surgery on her lumbar spine. [...] 1 each 11/26/24 14:52 Consult To Pharmacy [facility] 11/26/25 14:51 .PHACONSULT PRN ZZ.Pharmacy Consult Protocol [...] back pain: Plan Unstable angina, non-ST elevation IA Cardiac catheterization due to plaque rupture with [...] thecardiac catheterization. Documented By: Nolan Ballesteros DO 1032 Signed By: 11/28/24 103 [facility]04-27-2025 Progress note Author Chelsie Cedeno [facility] CampusNote Date/TimeApril 2024 1:18[place] [address] Cardiology Progress Note Signed Patient: Atiya Jha MR#: [id number] : 1940 Acct:[id number] Age/Sex: 84 / F Adm Date: 5 Loc: 4P Room: 6B1680-4 Type: ADM IN Attending Dr: Nolan Ballesteros [...] % (Auto) 51.3 Lymph % (Auto) 33.4 Austin % (Auto) 11.4 Eos % (Auto) 3.3 Baso % (Auto) 0.6 Nucleat RBC Rel Count 0.1 Neut # (Auto) 3.0 Lymph # (Auto) 2.0 [place] # (Auto) 0.7 Eos # (Auto) 0.2 [...] present medications Documented By: Chelsie Cedeno MD, [facility] 5 1317 Signed By: <Electronically signed by [facility] Chelsie Cedeno> 11/27/[address] [facility] Work Phone: 1(311) 447-703004-27-2025 Progress note Author Nolan Ballesteros [facility] CampusNote Date/TimeApril 2024 12:42[place] [address] Hospitalist Progress Note Signed Patient: Atiya Jha MR#: [id number] : 1940 Acct:[id number] Age/Sex: 84 / F Adm Date: 5 Loc: Room: [address] [place] [address] Type: ADM IN Attending Dr: Nolan Ballesteros [...] 11/26/24 09:00 11/27/24 08:35 Aspirin 81 Mg Tablet.Dr PO 11/26/25 08:59 [...] 1 each 11/25/24 15:49 Consult To Pharmacy [facility] 11/25/25 15:48 .PHACONSULT PRN HAYDE.Pharmacy Consult Protocol Miscellaneous Information 1 each 11/26/24 14:52 Consult To Pharmacy [facility] 11/26/25 14:51 .PHACONSULT PRN HAYDE.Pharmacy Consult Protocol Nitroglycerin 0.4 mg 11/25/24 16:32 [...] Primary hypertension: Plan Unstable angina, non-ST elevation IA Cardiac catheterization due to plaque rupture with [...] signed by Nolan Ballesteros DO> 11/27/[address] [facility] Work Phone: 1(215) [phone] [place] [address] Cardiology Progress Note Signed Patient: Atiya Jha MR#: [id number] : 1940 Acct:[id number] Age/Sex: 84 / F Adm Date: 5 Loc: Room: [address] [place] [address] Type: ADM IN Attending Dr: Nolan Ballesteros [...] % (Auto) 51.3 Lymph % (Auto) 33.4 Austin % (Auto) 11.4 Eos % (Auto) 3.3 Baso % (Auto) 0.6 Nucleat RBC Rel Count 0.1 Neut # (Auto) 3.0 Lymph # (Auto) 2.0 [place] # (Auto) 0.7 Eos # (Auto) 0.2 [...] present medications Documented By: Chelsie Cedeno MD, [facility] 1317 Signed By: 11/27/24 1318 [facility]04-27-2025 [place] [address] Hospitalist Progress Note Signed Patient: Atiya Jha MR#: [id number] : 1940 Acct:[id number] Age/Sex: 84 / F Adm Date: 5 Loc: Room: [address] [place] [address] Type: ADM IN Attending Dr: Nolan Ballesteros [...] 1 each 11/26/24 14:52 Consult To Pharmacy [facility] 11/26/25 14:51 .PHACONSULT PRN ZZ.Pharmacy Consult Protocol [...] Primary hypertension: Plan Unstable angina, non-ST elevation IA Cardiac catheterization due to plaque rupture with [...] Ballesteros DO 1240 Signed By: 11/27/24 1242 [facility]04-26-2025 Consult note Author Chelsie Cedeno [facility] CampusNote Date/TimeApril 2024 2:51[place] [address] Cardiology Consult Note Signed Patient: Atiya Jha MR#: [id number] : 1940 Acct:[id number] Age/Sex: 84 / F Adm Date: 5 Loc: 4 Room: [address] [place] [address] Type: ADM IN Attending Dr: Nolan Ballesteros DO Copies to: DO Chelsie Dean MD, [facility] Nolan Ballesteros DO~ Cardiology HPI History of [...] 10 point review of system essentially normal [facility] Medical History (Updated 11/26/24 @ 12:25 by [...] x10E3/uL Lymph # (Auto) 2.0 (1.00-4.8) x10E3/uL Austin # (Auto) 0.7 (0.0-0.8) x10E3/uL Eos # [...] (primary) hypertension Documented By: Chelsie Cedeno MD, [facility] 5 1446 Signed By: <Electronically signed by [facility] Cedeno> 11/26/[address] [facility] Work Phone: 1(612) [phone] [place] [address] Cardiology Consult Note Signed Patient: Atiya Jha MR#: [id number] : 1940 Acct:[id number] Age/Sex: 84 / F Adm Date: 5 Loc: Room: [address] [place] [address] Type: ADM IN Attending Dr: Nolan Ballesteros DO Copies to: DO Chelsie Dean MD, [facility] Nolan Ballesteros DO~ Cardiology HPI History of [...] 10 point review of system essentially normal [facility] Medical History (Updated 11/26/24 @ 12:25 by [...] x10E3/uL Lymph # (Auto) 2.0 (1.00-4.8) x10E3/uL [place] # (Auto) 0.7 (0.0-0.8) x10E3/uL Eos # [...] (primary) hypertension Documented By: Chelsie Cedeno MD, [facility] 5 1446 Signed By: 11/26/24 1451 [facility]04-26-2025 Progress note Author Nolan Ballesteros [facility] CampusNote Date/TimeApril 2024 12:26[place] [address] Hospitalist Progress Note Signed Patient: Atiya Jha MR#: [id number] : 1940 Acct:[id number] Age/Sex: 84 / F Adm Date: 5 Loc: Room: [address] [place] [address] Type: ADM IN Attending Dr: Nolan Ballesteros [...] To Pharmacy [facility] 11/25/25 15:48 .PHACONSULT PRN ZAbraham.Pharmacy Consult Protocol Nitroglycerin 0.4 mg 11/25/24 16:32 Nitroglycerin 0.4 Mg Tab.Subl SUBLINGUAL 11/25/25 16:31 Q5M PRN Chest Pain Pantoprazole Sodium 40 mg 11/26/24 09:00 11/26/24 10:03 Pantoprazole 40 Mg Tablet.Dr CORTEZ 11/26/25 08:59 40 mg DAILY EMMA Administration Sodium Chloride 0 ml 11/25/24 13:12 Sodium Chloride 0.9 % 10 Ml Syringe IV-PUSH 11/25/25 13:11 PRN PRN Flush A&P - Hospitalist Assessment/Plan (1) Unstable angina: (2) Non-ST elevation (NSTEMI) myocardial infarction: (3) Aortic stenosis: (4) Coronary artery disease: (5) Primary hypertension: Plan Unstable angina, non-ST elevation IA Cardiac catheterization due to plaque rupture with PCI in LAD in 11/2023, howevercouple days ago shestopped taking antiplatelets due to scheduled procedure Resume antiplatelet therapy, start heparin therapy, consult cardiology, check echocardiogram Plan: Awaiting cardiology input. Continue telemetry monitoring continuously. Continue heparin infusion on the ACS protocol. Check BMP, CBC, troponin, and twelve-lead EKG every morning. Documented By: Nolan Ballesteros DO 1222 Signed By: <Electronically signed by Nolan Ballesteros DO> 11/26/[address] [facility] Work Phone: 1(851) 400-493104-26-2025 [place] [address] Hospitalist Progress Note Signed Patient: Atiya Jha MR#: [id number] : 1940 Acct:[id number] Age/Sex: 84 / F Adm Date: 5 Loc: Room: [address] [place] [address] Type: ADM IN Attending Dr: Nolan Ballesteros [...] Dose Route Start Last Admin Trade Name Gina PRN Reason Stop Dose Admin Acetaminophen 650 [...] Primary hypertension: Plan Unstable angina, non-ST elevation IA Cardiac catheterization due to plaque rupture with [...] Ballesteros DO 1221 Signed By: 11/26/24 1226 [facility]04-25-2025 History and physical note Author Katya Borges [facility]Note Date/TimeApril 2024 4:[place] [id number] Hospitalist H&P Signed Patient: Atiya Jha MR#: [id number] : 1940 Acct:[id number] Age/Sex: 84 / F Adm Date: 5 Loc: ER Room: Type: [facility] ER Attending Dr: Copies to: Ivan Barreto,DO [...] % (Auto) 32.0 % (.) 11/25/24 14:18 Austin % (Auto) 8.6 % (.) 11/25/24 14:18 Eos % (Auto) 3.4 % (.) 11/25/24 14:18 Baso % (Auto) 1.3 % (.) 11/25/24 14:18 Nucleat RBC Rel Count 0.1 /100 WBC (0-0.5) 11/25/24 14:18 Neut # (Auto) 3.4 x10E3/uL (1.8-7.7) 11/25/24 14:18 Lymph # (Auto) 2.0 x10E3/uL (1.00-4.8) 11/25/24 14:18 Austin # (Auto) 0.5 x10E3/uL (0.0-0.8) 11/25/24 14:18 [...] (1) Hypercholesterolemia: Plan 1. Suspect non-ST elevation IA Cardiac catheterization due to plaque rupture with [...] 3 Documented By: Katya Borges MD 11/25/24 4398 Signed By: <Electronically signed by Katya Borges MD> 11/25/24 1636 [facility] Work Phone: 1([phone]) 244-565504-25-2025 Evaluation note* Diagnosis Onset Date Resolution Status Admit Date Coronary artery disease acuteApril 2024 4:32pmHypercholesterolemiaacuteApril 2024 4:32pmLow back painacuteApril 2024 4:32pmNon-ST elevation (NSTEMI) myocardial infarctionacuteApril 2024 4:32pmPrimary hypertensionacuteApril 2024 4:32pmUnstable anginaacuteApril 2024 4:32pmAortic stenosisdeletedApril 2024 4:32pmAortic stenosisacuteMay 2024 11:19amASHD (arteriosclerotic heart disease)acuteMay 2024 11:19amChronic venous insufficiency of lower extremityacuteMay 2024 11:19amHeart failure with improved ejection fraction (HFimpEF)acuteMay 2024 11:19am HypercholesterolemiaacuteMay 2024 11:19amLumbar spondylosisacuteMay 2024 11:19amPrimary hypertensionacuteMay 2024 11:19am [facility] Work Phone: 1([phone]) 281-947704-25-2025 Evaluation note* Diagnosis Onset Date Resolution Status Admit Date Coronary artery disease acuteApril 2024 4:32pmHypercholesterolemiaacuteApril 2024 4:32pmLow back painacuteApril 2024 4:32pmNon-ST elevation (NSTEMI) myocardial infarctionacuteApril 2024 4:32pmPrimary hypertensionacuteApril 2024 4:32pmUnstable anginaacuteApril 2024 4:32pmAortic stenosisdeletedApril 2024 4:32pmAortic stenosisacuteMay 2024 11:19amASHD (arteriosclerotic heart disease)acuteMay 2024 11:19amChronic venous insufficiency of lower extremityacuteMay 2024 11:19amHeart failure with improved ejection fraction (HFimpEF)acuteMay 2024 11:19am HypercholesterolemiaacuteMay 2024 11:19amLumbar spondylosisacuteMay 2024 11:19amPrimary hypertensionacuteMay 2024 11:19amAccidental fallacute Tracie 2024 2:16pmChest painacuteJuly 2024 2:16pmChest wall contusion acuteJuly 2024 2:16pmContusion of left chest wallacuteJuly 2024 2:16pm [facility] Work Phone: 1([phone]) [phone] Evaluation note* Diagnosis Onset Date Resolution Status Admit Date Coronary artery disease acuteApril 2024 4:32pmHypercholesterolemiaacuteApril 2024 4:32pmLow back painacuteApril 2024 4:32pmNon-ST elevation (NSTEMI) myocardial infarctionacuteApril 2024 4:32pmPrimary hypertensionacuteApril 2024 4:32pmUnstable anginaacuteApril 2024 4:32pmAortic stenosisdeletedApril 2024 4:32pmAortic stenosisacuteMay 2024 11:19amASHD (arteriosclerotic heart disease)acuteMay 2024 11:19amChronic venous insufficiency of lower extremityacuteMay 2024 11:19amHeart failure with improved ejection fraction (HFimpEF)acuteMay 2024 11:19am HypercholesterolemiaacuteMay 2024 11:19amLumbar spondylosisacuteMay 2024 11:19amPrimary hypertensionacuteMay 2024 11:19amAccidental fallacute February 06, 2025 2:16pmChest painacuteJuly 2024 2:16pmContusion of left chest wallacuteJuly 2024 2:16pmContusion of left shoulderacuteJuly 2024 2:16pmDebilityacuteJuly 2024 10:10pmHypertensive urgencyacuteJuly 2024 10:10pmHyponatremiaacuteJuly 2024 10:10pmUnsteadinessacuteJuly 2024 10:10pm [facility] Work Phone: 1(883) 727-287004-25-2025 Evaluation note* Diagnosis Onset Date Resolution Status Admit Date Coronary artery disease acuteApril 2024 4:32pmHypercholesterolemiaacuteApril 2024 4:32pmLow back painacuteApril 2024 4:32pmNon-ST elevation (NSTEMI) myocardial infarctionacuteApril 2024 4:32pmPrimary hypertensionacuteApril 2024 4:32pmUnstable anginaacuteApril 2024 4:32pmAortic stenosisdeletedApril 2024 4:32pmAortic stenosisacuteMay 2024 11:19amASHD (arteriosclerotic heart disease)acuteMay 2024 11:19amChronic venous insufficiency of lower extremityacuteMay 2024 11:19amHeart failure with improved ejection fraction (HFimpEF)acuteMay 2024 11:19am HypercholesterolemiaacuteMay 2024 11:19amLumbar spondylosisacuteMay 2024 11:19amPrimary hypertensionacuteMay 2024 11:19amAccidental fallacute Tracie 2024 2:16pmChest painacuteJuly 2024 2:16pmContusion of left chest wallacuteJuly 2024 2:16pmContusion of left shoulderacuteJuly 2024 2:16pmAccidental fallacuteJuly 2024 11:01pmDebilityacuteJuly 2024 11:01pmHypertensive emergencyacuteJuly 2024 11:01pmHypertensive urgency acuteJuly 2024 11:01pmHyponatremiaacuteJuly 2024 11:01pmNausea & vomitingacuteJuly 2024 11:01pmUnsteadinessacuteJuly 2024 11:01pm [facility] Work Phone: 1([phone]) 727-474504-25-2025 Evaluation note* Diagnosis Onset Date Resolution Status Admit Date Coronary artery disease acuteApril 2024 4:32pmHypercholesterolemiaacuteApril 2024 4:32pmLow back painacuteApril 2024 4:32pmNon-ST elevation (NSTEMI) myocardial infarctionacuteApril 2024 4:32pmPrimary hypertensionacuteApril 2024 4:32pmUnstable anginaacuteApril 2024 4:32pmAortic stenosisdeletedApril 2024 4:32pmAortic stenosisacuteMay 2024 11:19amASHD (arteriosclerotic heart disease)acuteMay 2024 11:19amChronic venous insufficiency of lower extremityacuteMay 2024 11:19amHeart failure with improved ejection fraction (HFimpEF)acuteMay 2024 11:19am HypercholesterolemiaacuteMay 2024 11:19amLumbar spondylosisacuteMay 2024 11:19amPrimary hypertensionacuteMay 2024 11:19amChest painacuteJuly 2024 2:16pmContusion of left chest wallacuteJuly 2024 2:16pmContusion of left shoulderacuteJuly 2024 2:16pmAccidental fallinactiveJuly 2024 2:16pmDebilityresolvedJuly 2024 10:10pmHypertensive emergencyresolvedJuly 2024 10:10pmHypertensive urgencyresolvedJuly 2024 10:10pm HyponatremiaresolvedJuly 2024 10:10pmNausea & vomitingresolvedJuly 2024 10:10pmUnsteadinessresolvedJuly 2024 10:10pmAccidental fallinactive Tracie 2024 10:10pm [facility] Work Phone: 1([phone]) [phone] Evaluation note* Diagnosis Onset Date Resolution Status Admit Date Hypercholesterolemia acuteApril 2024 4:32pmLow back painacuteApril 2024 4:32pmPrimary hypertensionacuteApril 2024 4:32pmNon-ST elevation (NSTEMI) myocardial infarctionresolvedApril 2024 4:32pmAortic stenosisdeletedApril 2024 4:32pmCoronary artery diseasedeletedApril 2024 4:32pmUnstable angina deletedApril 2024 4:32pmAortic stenosisacuteMay 2024 11:19amASHD (arteriosclerotic heart disease)acuteMay 2024 11:19amChronic venous insufficiency of lower extremityacuteMay 2024 11:19amHeart failure with improved ejection fraction (HFimpEF)acuteMay 2024 11:19am HypercholesterolemiaacuteMay 2024 11:19amLumbar spondylosisacuteMay 2024 11:19amPrimary hypertensionacuteMay 2024 11:19amContusion of left chest wallresolvedJuly 2024 2:16pmAccidental fallinactiveJuly 2024 2:16pmChest paindeletedJuly 2024 2:16pmContusion of left shoulderdeleted February 06, 2025 2:16pmDebilityresolvedJuly 2024 10:10pmHypertensive emergencyresolvedJuly 2024 10:10pmHypertensive urgencyresolvedJuly 2024 10:10pmHyponatremiaresolvedJuly 2024 10:10pmNausea & vomitingresolved Tracie 2024 10:10pmUnsteadinessresolvedJuly 2024 10:10pmAccidental fallinactiveJuly 2024 10:10pmAbnormal serum protein electrophoresisacute February 24, 2025 10:16amHeart failure with improved ejection fraction (HFimpEF) acuteJuly 2024 10:16amHyponatremiaacuteJuly 2024 10:16amIschemic cardiomyopathyacuteJuly 2024 10:16amPrimary hypertensionacuteJuly 2024 10:16amRib fractureacuteJuly 2024 10:16am [facility] Work Phone: 1(678) 565-729404-25-2025 [place] [address] Hospitalist H&P Signed Patient: Atiya Jha MR#: [id number] : 1940 Acct:[id number] Age/Sex: 84 / F Adm Date: 5 Loc: ER Room: Type: [facility] ER Attending Dr: Copies to: Ivan Barreto,DO [...] 65%, with PA pressure 30 to 40% [facility] Low back pain Osteoporosis Unsteady [...] % (Auto) 32.0 % (.) 11/25/24 14:18 [place] % (Auto) 8.6 % (.) 11/25/24 14:18 Eos % (Auto) 3.4 % (.) 11/25/24 14:18 Baso % (Auto) 1.3 % (.) 11/25/24 14:18 Nucleat RBC Rel Count 0.1 /100 WBC (0-0.5) 11/25/24 14:18 Neut # (Auto) 3.4 x10E3/uL (1.8-7.7) 11/25/24 14:18 Lymph # (Auto) 2.0 x10E3/uL (1.00-4.8) 11/25/24 14:18 [place] # (Auto) 0.5 x10E3/uL (0.0-0.8) 11/25/24 14:18 [...] (1) Hypercholesterolemia: Plan 1. Suspect non-ST elevation IA Cardiac catheterization due to plaque rupture with [...] days): 3 Documented By: Katya Borges MD 11/25/248 Signed By: 11/25/24 1636 [facility]04-02-2025 History and physical note Author Katya Borges [facility] CampusNote Date/TimeApril 2024 4:36[place] [address] Hospitalist H&P Signed Patient: Atiya Jha MR#: [id number] : 1940 Acct:[id number] Age/Sex: 84 / F Adm Date: 5 Loc: ER Room: Type: [facility] ER Attending Dr: Copies to: Ivan Barreto,DO [...] % (Auto) 32.0 % (.) 11/25/24 14:18 Austin % (Auto) 8.6 % (.) 11/25/24 14:18 Eos % (Auto) 3.4 % (.) 11/25/24 14:18 Baso % (Auto) 1.3 % (.) 11/25/24 14:18 Nucleat RBC Rel Count 0.1 /100 WBC (0-0.5) 11/25/24 14:18 Neut # (Auto) 3.4 x10E3/uL (1.8-7.7) 11/25/24 14:18 Lymph # (Auto) 2.0 x10E3/uL (1.00-4.8) 11/25/24 14:18 [place] # (Auto) 0.5 x10E3/uL (0.0-0.8) 11/25/24 14:18 [...] (1) Hypercholesterolemia: Plan 1. Suspect non-ST elevation IA Cardiac catheterization due to plaque rupture with [...] 3 Documented By: Katya Borges MD 11/25/24 2055 Signed By: <Electronically signed by Katya Borges MD> 11/25/[address] [facility] Work Phone: 1(825) 724-917003-26-2025 History of Present illness Narrative* Jamia Ndiaye [...] Scribe Attestation By signing my name below, IJosefina LPN, Scribe attest that this documentation has [...] exam, discussion and plan. documented in this [facility] Work Phone: 1(837) 278-159203-26-2025 Instructions* Patient Instructions* Josefina Victoria LPN - [...] Start plavix Lab work documented in this [facility] Work Phone: 1(750) 636-370303-18-2025 Evaluation note* Diagnosis Onset Date Resolution Status Admit Date Low back pain acuteMarch 2024 10:53amLumbar spondylosisacuteMarch 2024 10:53am OsteoporosisacuteMarch 2024 10:53amPrimary hypertensionacuteMarch 2024 10:53amHypercholesterolemiaacuteApril 2024 4:32pm [facility] Work Phone: 1(744) 766-933303-18-2025 Evaluation note* Diagnosis Onset Date Resolution Status Admit Date Low back pain acuteMarch 2024 10:53amLumbar spondylosisacuteMarch 2024 10:53am OsteoporosisacuteMarch 2024 10:53amPrimary hypertensionacuteMarch 2024 10:53amAortic stenosisacuteApril 2024 4:32pmCoronary artery disease acuteApril 2024 4:32pmHypercholesterolemiaacuteApril 2024 4:32pmLow back painacuteApril 2024 4:32pmNon-ST elevation (NSTEMI) myocardial infarctionacuteApril 2024 4:32pmPrimary hypertensionacuteApril 2024 4:32pmUnstable anginaacuteApril 2024 4:32pm [facility] Work Phone: 1([phone]) 312-374803-18-2025 Evaluation note* Diagnosis Onset Date Resolution Status Admit Date Low back pain acuteMarch 2024 10:53amLumbar spondylosisacuteMarch 2024 10:53am OsteoporosisacuteMarch 2024 10:53amPrimary hypertensionacuteMarch 2024 10:53amCoronary artery diseaseacuteApril 2024 4:32pm HypercholesterolemiaacuteApril 2024 4:32pmLow back painacuteApril 2024 4:32pmNon-ST elevation (NSTEMI) myocardial infarctionacuteApril 2024 4:32pmPrimary hypertensionacuteApril 2024 4:32pmUnstable anginaacuteApril 2024 4:32pmAortic stenosisdeletedApril 2024 4:32pmASHD (arteriosclerotic heart disease)acuteMay 2024 11:19amChronic venous insufficiency of lower extremityacuteMay 2024 11:19amHeart failure with improved ejection fraction (HFimpEF)acuteMay 2024 11:19am HypercholesterolemiaacuteMay 2024 11:19amLumbar spondylosisacuteMay 2024 11:19amPrimary hypertensionacuteMay 2024 11:19am [facility] Work Phone: 1([phone] 316-535103-10-2025 History of Present illness Narrative* Yoselin Weir, DPM - 10/10/2024 1:00 PM EDT Images [...] MOHS SURGERY 1998 OTHER SURGICAL HISTORY JAKER- Jerry OTHER SURGICAL HISTORY 11/2017 Right SI joint injectiin/Felter OTHER SURGICAL HISTORY 06/2018 Aortigram no hemodynamically significant stenosis OTHER SURGICAL HISTORY 07/2019 Bilateral ischeal bursa injection OTHER SURGICAL HISTORY 01/02/2020 Bursitis Injection OTHER SURGICAL HISTORY 05/2020 bilateral ischeal bursa injection/Aragon OTHER SURGICAL HISTORY 07/2020 right intrarticular hip injection/Aragon OTHER SURGICAL HISTORY 11/2020 right intrarticular hip injection [place] BREAST REDUCTION 1999 TRIGGER FINGER RELEASE 03/02/2019 [...] understanding. Yoselin Weir DPM documented in this encounterCrossroads Regional Medical CenterXnnmamfrxt92-16-7748 History of Present illness Narrative* Jordan Wisdom DO - 09/28/2024 10:15 AM EST Images from [...] BELT ABDOMINOPLASTY 2002 CARDIAC CATHETERIZATION 2004 COLONOSCOPY 2009 nl /Grillis COLONOSCOPY 02/2020 few [...] SURGICAL HISTORY 11/2020 right intrarticular hip injection [place] BREAST REDUCTION 1999 TRIGGER FINGER RELEASE 03/02/2019 [...] DO Assessment & Plan documented in this encounterCrossroads Regional Medical CenterGqlcelvdwu65-66-9416 History of Present illness Narrative* Lisa Davenport, [facility] - 09/07/2024 10:00 AM EST History: Pt [...] return in 9 months. documented in this encounterCrossroads Regional Medical CenterOtowtnmhsg38-91-3015 Evaluation note* Diagnosis Onset Date Resolution Status Admit Date Aortic stenosis acuteJuly 01, 2024 9:29amASHD (arteriosclerotic heart disease)acute July 01, 2024 9:29amChronic venous insufficiency of lower extremityacute July 01, 2024 9:29amHeart failure with improved ejection fraction (HFimpEF)acuteJuly 01, 2024 9:29amHypercholesterolemiaacuteNovember 2023 9:29amLumbar spondylosisacuteJuly 01, 2024 9:29amMedicare annual wellness visit, subsequentacuteJuly 01, 2024 9:29amPrimary hypertension acuteJuly 01, 2024 9:29amScreening mammogram for breast canceracute July 01, 2024 9:29amAbdominal painacuteDecember 2023 1:24pm OsteoporosisacuteDeceer 2023 1:24pmUnsteady gaitacuteDeceer 2023 1:24pm [facility] Work Phone: 1(523) 328-426311-25-2024 History of Present illness Narrative* Yoselin Weir DPM - 06/27/2024 10:45 AM EST Images from [...] SURGICAL HISTORY 11/2020 right intrarticular hip injection KS BREAST REDUCTION 2000 TRIGGER FINGER RELEASE 03/02/2019 [...] understanding. Yoselin Weir DPM documented in this [facility]11-25-2024 Instructions* Patient Instructions* Yoselin Weir DPM - 06/27/2024 10:45 AM EST As noted documented in this [facility]10-29-2024 History of Present illness Narrative* González Suazo, - 05/31/2024 9:00 AM EDT Images [...] Acid reflux Anxiety ASHD (arteriosclerotic heart disease) ([facility]) Atrophic vaginitis Bunion of great toe CAD [...] if she desires a referral to another digital publishing specialist we would be happy to make referral, she states she would like to continue her care here. Marcie Suazo D.O. documented in this encounterCrossroads Regional Medical CenterXnmqeaqqby78-91-9312 NoteNormal sinus rhythm with poor R wave progression anterior [id number] History of Present illness Narrative* Jamia Ndiaye [...] Attestation By signing my name below, I, Gi Cherry LPN attest that this documentation has been [...] exam, discussion and plan. documented in this [facility] Work Phone: 1(148) 966-857110-28-2024 Instructions* Patient Instructions* Karen Baker LPN - [...] blood pressure at home documented in this encounterHolmes [facility] Work Phone: 1([phone]) 633-906810-24-2024 History of Present illness Narrative* Ramone Perkins MD - 05/26/2024 8:20 AM EDT [facility] [address] [facility] [address] CHART NOTE ? 05/26/2024 Patient: Atiya Jha 1940 [id number] Physician: Ramone Perkins MD Last encounter with [...] from my family physician as well as estimation manager for possible surgery. She is 84 years old and she needs to be cleared before we schedule her for surgery. If Atiya has any further concerns or questions, we encouraged her to give us a call. This note was created with the assistance of a speech recognition program with the goal of generating a timely record of the patient encounter. Inadvertent computerized head silverman errors related to syntax, spelling, homophones, and/or inaudibility may be present. documented in this encounterMount Ascutney HospitalBevy10-24-2024 Instructions* Patient Instructions* Ramone Perkins MD - [...] taking. Be sure to include all prescription, lrxi-rds-vtpwdvl, vitamins, and herbal supplements. Bring a list [...] during the surgery. You may have some henrandez near your synagogue area from this cifuentes after the surgery. [...] bladder function Where can I learn more? [employer] https://orthoinfo.aaos.org/en/treatment/spinal-fusion Kids[employer] http://kidshealth.org/en/parents/spinal-fusion.html [...] or approved for treating a specific patient. [employer] and its affiliatesdisclaim any warranty or liability relating to this information or the use thereof. The use of thisinformation is governed by the Terms of Use, available at https://www.[employer]en/know/wtszpsal-fnqbkasbxplei-xcmfc Copyright Copyright 2022 [employer] and its affiliates and/or licensors. All rights [...] back. Where can I learn more? [employer] https://kidshealth.org/en/parents/spondylolisthesis.html?ref=search National [facility] Services https://www.nhs.uk/conditions/spondylolisthesis/ Last Reviewed Date [...] or approved for treating a specific patient. [employer] and its affiliatesdisclaim any warranty or liability relating to this information or the use thereof. The use of thisinformation is governed by the Terms of Use, available at https://www.[employer]en/know/rvtgfbea-mjiahxfomnhuj-ibnuu Copyright Copyright 2022 [employer] and its affiliates and/or licensors. All rights [...] your doctor. Where can I learn more? [employer] https://orthoinfo.org/en/recovery/fzkfp-hegaynybjfkk-fzinrrl/spine-conditioning- program-pdf Last Reviewed Date 2020-10-18 Consumer Information [...] or approved for treating a specific patient. [employer] and its affiliatesdisclaim any warranty or liability relating to this information or the use thereof. The use of thisinformation is governed by the Terms of Use, available at https://www.[employer].com/en/know/tdrlgppx-lnbowhhdagapk-ofggh Copyright Copyright 2022 [employer] and its affiliates and/or licensors. All rights [...] S1 Vertebrae Postoperative X-rays documented in this encounterMetro[facility] History of Present illness Narrative* Jordan Wisdom, DO - 05/25/2024 10:15 AM EDT Images from [...] SURGICAL HISTORY 11/2020 right intrarticular hip injection [place] BREAST REDUCTION 1999 TRIGGER FINGER RELEASE 03/02/2019 [...] 05/21/22- Neg Dexa 05/21/22- osteoporosis Colonoscopy 2019 () Review of Systems All negative unless documented [...] DO Assessment & Plan documented in this encounterCrossroads Regional Medical CenterYsawoeohmi21-96-4134 Telephone encounter Note* Telephone Encounter - Devin Birmingham NP - 05/17/2024 8:42 AM EDT PDMP reviewed. Rx sent to pharmacy. [facility] CenterZdjebfauyx10-45-5043 Miscellaneous Notes* Telephone Encounter - Devin Birmingham NP - 05/17/2024 8:42 AM EDT PDMP reviewed. Rx sent to pharmacy. * Telephone Encounter - Jamaica Zamora RN - 05/17/2024 8:18 AM EDT Pt having MRI today and is concerned about staying still in the machine due to pain. Can she have some meds to relax her please. Drug jessica Parra please. MRI is at 10:30 documented in this encounterCrossroads Regional Medical CenterGvkkbesxqr10-26-6074 Telephone encounter Note* Telephone Encounter - Jamaica Zamora RN - 05/17/2024 8:18 AM EDT Pt having MRI today and is concerned about staying still in the machine due to pain. Can she have some meds to relax her please. Drug jessica Teresae please. MRI is at 10:30 [facility] CenterRuafjwgxgz79-91-5744 History of Present illness Narrative* González Suazo, - 05/10/2024 1:15 PM EDTAssociated Order(s): Trigger Point Injection ([place] 67609 [place] [address]): right gluteus willian Post-Procedure Diagnose(s): Trigger point [...] hip and radiates down her leg to cannon. Cannon feels like it is on fire, tender [...] injection 10/07/23, XR [facility] lumbar 10/07/23, [facility] pain clinic, RT hip bursa inj 03/01/24, RT SI trigger injx 04/29/24 RT hip: Pt had RT ZOË 06/05/21 I reviewed notes from the [facility] Anson Jama MD dated [...] IMAGING: October 07, 2023 x-rays from the [place] office AP and lateral and lateral flexion- [...] Trigger point M79.10 Trigger Point Injection (CPT 39372 [place] [address]): right gluteus willian RT SI Trigger Point Injection (CPT 09968 or 93591): right gluteus willian on 05/10/2024 1:50 PM [...] Dr. Suazo/connor Suazo D.O. documented in this [facility]09-30-2024 Miscellaneous Notes* Telephone Encounter - Devin Birmingham [...] 10:36 AM EDT Atiya called and left , she stated she saw you on Thursday in [facility] office and was given an injection, which did absolutely nothing and she needs to know what you gave her, and how long until she can get another one? She is going to make arrangements to get into the pain clinic. Her call back [phone] documented in this [facility]09-30-2024 Telephone encounter Note* Telephone Encounter - Devin Birmingham NP - 05/02/2024 10:43 AM EDT Usually have to wait every 3-4 months to repeat injection [facility] Omcjaxwuxf28-95-5895 Telephone encounter Note* Telephone Encounter - Devin Birmingham NP - 05/02/2024 10:42 AM EDT We gave her 40mg of depo medrol for a right SI trigger point injection. The injection can take up to 2 weeks to start working but if she wants to get started on seeing pain management that is fine. [facility] Medical CenterBlqotcyioq91-88-6637 Telephone encounter Note* Telephone Encounter - Jody Alen - 05/02/2024 10:36 AM EDT Atiya called and left vm , she stated she saw you on Thursday in [facility] office and was given an injection, which did absolutely nothing and she needs to know what you gave her, and how long until she can get another one? She is going to make arrangements to get into the pain clinic. Her call back [phone] [facility] Medical CenterJcptofftkr22-86-7169 History of Present illness Narrative* Devin Birmingham NP - 04/29/2024 8:15 AM EDTAssociated Order(s): Trigger Point Injection (CPT 20611 or [address]2211): right gluteus willian Post-Procedure Diagnose(s): DDD (degenerative [...] injection 10/07/23, XR [facility] ortho lumbar 10/07/23, [facility] pain clinic, RT hip bursa inj [...] No diagnosis found. Trigger Point Injection (CPT 76806 or [address]5220): right gluteus willian on 04/29/2024 4:11 PM [...] develop for requiring urgent evaluation. Devin Birmingham MARKETING RESEARCH INTERN-DOCK SUPERINTENDENT documented in this encounterCrossroads Regional Medical CenterMlkxsailxe64-15-0004 History of Present illness Narrative* Yoselin Weir DPM - 03/28/2024 10:45 AM EDT Images from [...] MOHS SURGERY 1998 OTHER SURGICAL HISTORY JAKER- Jerry OTHER SURGICAL HISTORY 11/2017 Right SI joint injectiin/Felter OTHER SURGICAL HISTORY 06/2018 Aortigram no hemodynamically significant stenosis OTHER SURGICAL HISTORY 07/2019 Bilateral ischeal bursa injection OTHER SURGICAL HISTORY 01/02/2020 Bursitis Injection OTHER SURGICAL HISTORY 05/2020 bilateral ischeal bursa injection/Aragon OTHER SURGICAL HISTORY 07/2020 right intrarticular hip injection/Aragon OTHER SURGICAL HISTORY 11/2020 right intrarticular hip injection KS BREAST REDUCTION 1999 TRIGGER FINGER RELEASE 03/02/2019 [...] understanding. Yoselin Weir DPM documented in this encounterNOMS Taqtwxrsox02-23-5616 Instructions* Patient Instructions* Yoselin Weir DPM - 03/28/2024 10:45 AM EDT As noted documented in this [facility]07-30-2024 Hospital Discharge instructions Patient Education 03/01/2024 14:40:48 [...] your health care provider. General instructions Take nbtc-iwn-bauulkl and prescription medicines only as told by [...] provider. Document Revised: 01/14/2021 Document Reviewed: 01/14/2021 [employer] Patient Education 2022 [employer]. Follow Up Care 02/29/2024 10:23:19 With:SYL SAMS, Jerson Santiago, URL Address: [facility] [address] , [place] [address]- When: Unknown [facility] 07-30-2024 NotePatient Education Obstetrics and Gynecology Pelvic [...] health care provider. General instructions ? Take wvke-trj-ebwxukw and prescription medicines only as told by [...] stretching, bulging, or dropp (more content not included)...[facility]07-08-2024 Hospital Discharge instructions Patient Education 02/08/2024 [...] your health care provider. General instructions Take iqey-zxs-mdlhcjz and prescription medicines only as told by [...] provider. Document Revised: 01/14/2021 Document Reviewed: 01/14/2021 [employer] Patient Education 2022 [employer]. Follow Up Care 01/29/2024 09:47:30 With:SYL SAMS, Jerson Santiago, URL Address: [address] [place], [place] [id number]- When: Unknown Comments:our law enforcement director will be calling you to schedule cysto [facility] 07-08-2024 NotePatient Education Obstetrics and Gynecology [...] health care provider. General instructions ? Take iadm-pux-vmglekl and prescription medicines only as told by [...] stretching, bulging, or dropp (more content not included)...[facility]06-11-2024 History of Present illness Narrative* Pineda [...] Scribe Attestation By signing my name below, IPayton LPN, Scribe attest that this documentation has [...] exam, discussion and plan. documented in this encounterHolmes County [facility] Work Phone: 1(113) 491-713506-11-2024 Instructions* Patient Instructions* Radha Benavidez LPN - [...] time of your visit. documented in this encounterHolmes County [facility] Work Phone: 1(105) 379-532004-29-2024 Evaluation + Plan note* Assessment & Plan Note - ABDULLAHI Kaur - 11/30/2023 12:19 PM EDTAssociated Problem(s): Dysuria Dysuria and frequency [facility] Work Phone: 1([phone]) [phone] Evaluation + Plan note* Assessment & Plan [...] orthopnea or PND. No dyspnea on exertion. [facility] Work Phone: 1(135) 985-580404-29-2024 Miscellaneous Notes* Assessment & Plan Note - [...] following abnormal outpatient perfusion study Ostial/proximal LAD PCI/[place] 2.5 x 15 mm Proximal circumflex with patent stent RCA 25% She then had diffuse disease of small vessels including OM and PDA. LVEF 40% She was initiated on Nitropatch 0.2 mg/h documented in this [facility] Work Phone: 1(191) 397-807304-29-2024 Evaluation + Plan note* Assessment & Plan Note - ABDULLAHI Kaur - 11/30/2023 12:17 PM EDTAssociated Problem(s): Congestive heart failure, NYHA class 2 and ACC/AHA stage C (Multi) IC HF borderline EF 40% November 2023 cath (January 2023 TTE EF 40-45%) FC III weakness and fatigue GDMT Sole Starks [facility] Work Phone: 1(432) 686-216804-29-2024 Evaluation + Plan note* Assessment & Plan Note - ABDULLAHI Kaur - 11/30/2023 12:16 PM EDTAssociated Problem(s): ASCVD (arteriosclerotic cardiovascular disease) November 18, 2023 cardiac cath following abnormal outpatient perfusion study Ostial/proximal LAD PCI/[place] 2.5 x 15 mm Proximal circumflex with patent stent RCA 25% She then had diffuse disease of small vessels including OM and PDA. LVEF 40% She was initiated on Nitropatch 0.2 mg/h [facility] Work Phone: 1(322) 419-498204-29-2024 History of Present illness Narrative* ABDULLAHI Kaur [...] and CBC, she reports having done at [facility] and will need to request records. Presents [...] following abnormal outpatient perfusion study Ostial/proximal LAD PCI/[place] 2.5 x 15 mm Proximal circumflex with [...] Dr. Santillan as scheduled Sulma Busby MSN, MARKETING RESEARCH INTERN-DOCK SUPERINTENDENT, PMHNP-[facility] Please excuse any errors in grammar or translation related to this dictation. Voice recognition software was utilized to prepare this document. documented in this encounterHolmes County [facility] Work Phone: 1(513) 962-923304-29-2024 Instructions* Patient Instructions* ABDULLAHI Kaur - 11/30/2023 [...] Dr. Santillan as scheduled documented in this encounterHolmes County [facility] Work Phone: 1(871) 563-525904-18-2024 Progress note Author [facility] November 19, 2023 5:00pmNote Date/TimeApril 2023 11:14[place] [id number] Cardiology Progress Note Signed Patient: Atiya Jha MR#: [id number] : 1940 Acct:[id number] Age/Sex: 83 / F Adm Date: 4 Loc: Room: [address] [place] [address] Type: [facility] Attending Dr: Allan Townsend DO Copies [...] potential need for ongoing long-acting nitrates and assisted antiplatelet therapy No acute events overnight. Patient is afebrile and hemodynamically stable. Shedenies any chest painor shortness of breath at this time. Patient did have some postprocedural hemorrhage from the rightfemoral catheter insertion site. Antiplatelet agents were held and direct pressure was applied until hemostasis. Troponin at 88.9 today. No other labs or imaging. EKG revealed normal sinus rhythm without evidenceof ST elevation or ischemia. Patient to be [...] Code(s): I25.10 - Atherosclerotic heart disease of [place] coronary artery without angina pectoris (2) Hypertension: Code(s): I10 - Essential (primary) hypertension (3) Coronary artery disease: Code(s): I25.10 - Atherosclerotic heart disease of [place] coronary artery without angina pectoris (4) Unstable [...] signed by Allan Townsend DO> 11/19/[address] [facility] Work Phone: 1(774) 765-293204-17-2024 [facility] Discharge summary Author Allan Townsend [facility] November 18, 2023 3:36pmNote Date/TimeApril 2023 3:35[place] [address] Discharge Summary Signed Patient: Atiya Jha MR#: [id number] : 1940 Acct:[id number] Age/Sex: 83 / F Adm Date: 4 [...] proximal LAD with 2.5 x 15 mm [place] Summary Hospital Course Hospital course: 83-year-old female referred for elective left heart catheterization due to progressive angina, subsequent abnormal stress imaging with anterolateral and apical ischemia; with a history of prior IA with proximal circumflex subacute stent thrombosis within the last year, successfully treated with repeat PCI of the circumflex. At that time the LAD had minimal proximal disease, diffuse distal small vessel disease and preserved left ventricular function Left heart catheterization today revealed new ruptured plaque in the proximal LAD with 95% stenosis(culprit vessel and lesion) with similar mid distal LAD disease, widely patent circumflex stent, moderate left ventricular dysfunction with ejection fraction of 40% Patient underwent ad hoc urgent PCI proximal LAD with 2.5 x 15 mm [place] She will continue with current therapies including [...] CL LHC & COR Angio - W DO justice Fink Stent 1st Vessel LAD OLE - W Ziyad Townsend DO Complications Complications: None Discharge Plan Discharge Plan Patient Disposition: Home Diet: Low-Cholesterol Additional Instructions: DISCHARGE INSTRUCTIONS FOR ANGIOPLASTY/CORONARY/PERIPHERAL/STENT IMPLANT FOR ADULT ANTICOAGULATION -Since the greatest risk of a blood clot forming with the stent occurs in the first 2-3 weeks afterimplantation, you will need to take anticoagulants for [...] doctor or pharmacist, without first calling the estimation manager who implanted the stent. If you require [...] weight lifting, stair steppers, etc. until the estimation manager approves these activities. Check with the estimation manager on your first follow-up visit. CALL YOUR BIOFUELS PRODUCTION MANAGER: -If bleeding should occur from the catheter insertion site- apply pressure to the site then immediately call us. -Report any fever, redness, drainage, increased swelling, or firmness at the catheter insertion site. Some bruising or slight swelling may be present at thetime of discharge. -Should arm or leg become cold, numb, white, or blue, contact the estimation manager immediately. -IF you should experience episodes of angina, e.g. chest discomfort, heaviness, tightness, pressureburning with or without radiation to the neck, jaw, arms or back- use 1 Nitrostat tablet under yourtongue every 5-10 minutes and up to three tablets. IF NO RELIEF, CALL 911 or GO TO THE NEAREST EMERGENCY ROOM. -Please notify our office if you have recurrent angina. The attending estimation manager or a nurse clinician should provide you with specificinstructions regarding activity, diet, medications, and further follow up for you. Follow the medication instructions provided on your discharge. If the dosages and instructions on this sheet differ from the dosage and instructions on the bottle, follow the instructions on the bottle. [facility] is not responsible for incorrect prescription information [...] signed by Allan Townsend DO> 11/18/[address] [facility] Work Phone: 1(805) [phone] Procedure noteSum[facility]01-12-2024 Evaluation note* Encounter Date Diagnosis Assessment Notes Treatment Notes Treatment Clinical Notes Aug, Acute right-sided low back pain without sciatica (ICD-10 - M54.50) ROM exercises, heat/ice and Lidocaine patch. Voltaren Gel. 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 Weight bearing exercises Aug,rimary hypertension (ICD-10 - I10) [facility] Other 01-12-2024 History general Narrative - Reported* Type Description Date Medical History HTN Medical HistoryHypercholesterolemiaMedical HistoryCKD stage 3aMedical History ASHDMedical HistoryAbnormal weight loss (resolved 05/05/2022)Surgical History Heart Catheterization/Stents placed11/1999Surgical HistoryBreast Fwhnoimgm5216 Surgical LntdokdYwkimpulsikuvy2300Tvegrptl HistoryTrigger finger, esgc0173 Surgical HistoryCataracts, geqvukyyd2761Uaujfvca HistoryLeft hip replacement 03/2011Surgical HistoryEyelids xejjja74099Zsowjfyk HistoryPCI/stent LCX, PTCA distal LAD01/2023Surgical HistoryTrigger finger right hand06/2023Surgical History CTR right06/2023Surgical Historyright THA06/2021Hospitalization HistorySee past surgical hx [facility] Other 01-05-2024 History general Narrative - Reported* Type Description Date Medical History HTN Medical HistoryHypercholesterolemiaMedical HistoryCKD stage 3aMedical History ASHDMedical HistoryAbnormal weight loss (resolved 05/05/2022)Surgical History Heart Catheterization/Stents placed11/1999Surgical HistoryBreast Swslblnle3471 Surgical InekeuyDptxyevgepsinl5554Tvwxrqaa HistoryTrigger finger, hyrq7685 Surgical HistoryCataracts, eribgzvvp0164Sfvntgkn HistoryLeft hip replacement 03/2011Surgical HistoryEyelids jfkrqm45622Cicgemrt HistoryPCI/stent LCX, PTCA distal LAD01/2023Surgical HistoryTrigger finger right hand06/2023Surgical History CTR right06/2023Hospitalization HistorySee past surgical hx [facility] Other 12-01-2023 History general Narrative - Reported* Type Description Date Medical History HTN Medical HistoryHypercholesterolemiaMedical HistoryCKD stage 3aMedical History ASHDMedical HistoryAbnormal weight loss (resolved 05/05/2022)Surgical History Heart Catheterization/Stents placed11/1999Surgical HistoryBreast Mhrekonfg2041 Surgical KbvwpeyYjmuqdewvrnset9071Fyqqbocy HistoryTrigger finger, xpxr9577 Surgical HistoryCataracts, mzfcyzmlb2973Urlorknq HistoryLeft hip replacement 03/2011Surgical HistoryEyelids dojmhb00335Qmhnlyqz HistoryPCI/stent LCX, PTCA distal LAD01/2023Surgical HistoryTrigger finger right hand06/2023Surgical History CTR right06/2023Hospitalization HistorySee past surgical hx [facility] Other 11-30-2023 Evaluation note* Encounter Date Diagnosis [...] reviewed and amended by provider signed below. Jun,SHD (arteriosclerotic heart disease) (ICD-10 - I25.10)Echo: LVEF 40-45%, RVSP 45, - 01/2022 LHC: LVEF 35% - 01/2022 This patient is stable without activity related CP, dyspnea or lightheadedness. They are instructedto continue exercise and AHA diet plan. Continue secondary prevention measures. Jun,Stage 3a chronic kidney disease (ICD-10 - N18.31)The patient is instructed on adequate control of hypertension and diabetes, if appropriate. They are also educated on the associated risks of NSAIDs and PPI use with kidney disease. They were instructed on adequate fluid balance and to avoid dehydration. Jun,rimary hypertension (ICD-10 - I10)This patient is instructed to consume a healthy, low-fat, low-salt diet. They are also encouraged to continue exercise to achieve/maintain a normal BMI. Jun,Spondylolisthesis of lumbar region (ICD-10 - M43.16)The patient is instructed to avoid bending, twisting or lifting. They are to use intermittent heat and ice as needed. They may schedule a massage or gentle manipulation. They may safely use Tylenol as needed. Jun,astroesophageal reflux disease with esophagitis without hemorrhage (ICD-10 - K21.00)Diet instructions: Smaller portions, avoid eating and laying flat, avoid eating or drinking prior to bedtime. Weight loss. [facility] Other 11-13-2023 History of Present illness Narrative* Pineda Santillan MD - 06/15/2023 9:10 AM EST Subjective Atiya Jha is a 83 y.o. female Chief Complaint Annual Exam HPI Had STEMI in January Patient returns for follow-up of problems as noted. She is done well. In January she had an ST segmentelevation IA and had immediate transport from home to the [facility] [employer] where she underwent emergent intervention and had [...] prompted by classic symptomatology. [facility] Work Phone: 1(259) 638-609811-13-2023 Instructions* Patient Instructions* Kaiden Bonilla MA - [...] time of your visit. documented in this [facility]Hol[facility] Work Phone: 1([phone]) 809-328711-08-2023 History general Narrative - Reported* Type Description Date Medical History HTN Medical HistoryHypercholesterolemiaMedical HistoryCKD stage 3aMedical History ASHDMedical HistoryAbnormal weight loss (resolved 05/05/2022)Surgical History Heart Catheterization/Stents placed11/1999Surgical HistoryBreast Dzlyvmobd8620 Surgical LveowwuIkvulbsvhumhge7904Wvxfnbog HistoryTrigger finger, kvqc5786 Surgical HistoryCataracts, mlnopfxef9477Urzxtldj HistoryLeft hip replacement 03/2011Surgical HistoryEyelids frvkjl43423Nolxsgda HistoryPCI/stent LCX, PTCA distal LAD01/2023Surgical HistoryTrigger finger left rcnmyy71/2023Hospitalization HistorySee past surgical hx [facility] Other 10-15-2023 Evaluation note* Encounter Date Diagnosis Assessment Notes Treatment Notes Treatment Clinical Notes May, Elevated cholesterol (ICD-10 - E 78.00) [facility] Other 10-15-2023 History general Narrative - Reported* Type Description Date Medical History HTN Medical HistoryHypercholesterolemiaMedical HistoryCKD stage 3aMedical History ASHDMedical HistoryAbnormal weight loss (resolved 05/05/2022)Surgical History Heart Catheterization/Stents placed11/1999Surgical HistoryBreast Vnpjhhqom0324 Surgical RkxlwymUhydmgdtbcaefx5107Vkebbenv HistoryTrigger finger, oueu9998 Surgical HistoryCataracts, xrxfphgww2020Jhwdrccd HistoryLeft hip replacement 03/2011Surgical HistoryEyelids flrgei19821Wyzsfslg HistoryPCI/stent LCX, PTCA distal LAD01/2023Hospitalization HistorySee past surgical hx [facility] Other 10-13-2023 History general Narrative - Reported* Type Description Date Medical History HTN Medical HistoryHypercholesterolemiaMedical HistoryCKD stage 3aMedical History ASHDMedical HistoryAbnormal weight loss (resolved 05/05/2022)Surgical History Heart Catheterization/Stents placed11/1999Surgical HistoryBreast Wykwkbzxn6492 Surgical MijisdsBmbjokxupadudq9598Ycmnadto HistoryTrigger finger, ytqp7846 Surgical HistoryCataracts, irvlhyaed6315Evivmgxv HistoryLeft hip replacement 03/2011Surgical HistoryEyelids nndswq83951Vdfrkhor HistoryPCI/stent LCX, PTCA distal LAD01/2023Hospitalization HistorySee past surgical hx [facility] Other 10-12-2023 Evaluation note* Encounter Date Diagnosis Assessment Notes Treatment Notes Treatment Clinical Notes May, Elevated cholesterol (ICD-10 - E 78.00) [facility] Other 10-12-2023 History general Narrative - Reported* Type Description Date Medical History HTN Medical HistoryHypercholesterolemiaMedical HistoryCKD stage 3aMedical History ASHDMedical HistoryAbnormal weight loss (resolved 05/05/2022)Surgical History Heart Catheterization/Stents placed11/1999Surgical HistoryBreast Zdisfpqxi2383 Surgical FqhvfzjYqgqprfnahvslc1133Baknbwlx HistoryTrigger finger, zzqn9726 Surgical HistoryCataracts, xsavxcylx7579Rqeuxujs HistoryLeft hip replacement 03/2011Surgical HistoryEyelids gfiehk81032Boyyirkj HistoryPCI/stent LCX, PTCA distal LAD01/2023Hospitalization HistorySee past surgical hx [facility] Other 10-10-2023 History general Narrative - Reported* Type Description Date Medical History HTN Medical HistoryHypercholesterolemiaMedical HistoryCKD stage 3aMedical History ASHDMedical HistoryAbnormal weight loss (resolved 05/05/2022)Surgical History Heart Catheterization/Stents placed11/1999Surgical HistoryBreast Eezehzgaf2905 Surgical OvhttrdUnpdodukgocrqy4462Yixzgitg HistoryTrigger finger, twov6263 Surgical HistoryCataracts, bxdqfnunv1326Spihnrql HistoryLeft hip replacement 03/2011Surgical HistoryEyelids bqsxas36586Twkjcjak HistoryPCI/stent LCX, PTCA distal LAD01/2023Hospitalization HistorySee past surgical hx [facility] Other 08-21-2023 Evaluation note* Encounter Date Diagnosis Assessment Notes Treatment Notes Treatment Clinical Notes Mar, Primary hypertension (ICD-10 - I 10) [facility] Other 08-14-2023 Evaluation note* Encounter Date Diagnosis Assessment Notes Treatment Notes Treatment Clinical Notes Mar, Urticaria (ICD-10 - L50.9) Dove soap Cool compresses Initiate Hydroxyzine at HS Zyrtec q am Mar,SHD (arteriosclerotic heart disease) (ICD-10 - I25.10)Echo: LVEF 40-45%, RVSP 45, - 01/2022 LHC: LVEF 35% - 01/2022 This patient is stable without activity related CP, dyspnea or lightheadedness. They are instructedto continue exercise and AHA diet plan. Discussed new medications as possible culprits but instructed not to stop. 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 Jan,rimary hypertension (ICD-10 - I10)This patient is instructed to consume a healthy, low-fat, low-salt diet. They are also encouraged to continue exercise to achieve/maintain a normal BMI. Elevate due to aniety Recheck at home w/ goal < 140/90 Jan,cute blood loss anemia (ICD-10 - D62)Mild w/ Hgb > 11gm No s/s active bleeding If dizziness recurs, would check H/H [facility] Other 07-06-2023 Evaluation note* Encounter Date Diagnosis Assessment Notes Treatment Notes Treatment Clinical Notes Jan, ASHD (arteriosclerot ic heart disease) (ICD-10 - I25.10) Echo: LVEF 40-45%, RVSP 45, - 01/2022 LHC: LVEF 35% - 01/2022 [facility] Other 06-27-2023 Evaluation note* Encounter Date Diagnosis Assessment Notes Treatment Notes Treatment Clinical Notes Jan, ASHD (arteriosclerotic heart dis ease) (ICD-10 - I25.10) This patient is stable without activity related CP, dyspnea or lightheadedness. They are instructedto continue exercise and AHA diet plan. s/p PCI/stent LCx and LAD Planning to start CR in next couple weeks Jan,AD (peripheral artery disease) (ICD-10 - I73.9)Inspect feet on daily basis. Walk daily Continue ASA and statin therapy Jan,rimary hypertension (ICD-10 - I10)This patient is instructed to consume a healthy, low-fat, low-salt diet. They are also encouraged to continue exercise to achieve/maintain a normal BMI. Jan,Elevated cholesterol (ICD-10 - E78.00)Instructed on diet and exercise with continued statin therapy.Discussed the beneficial effects of lo wering cholesterol in reducing the risk for cerebrovascular and cardiovascular disease. Jan,Stage 3a chronic kidney disease (ICD-10 - N18.31)The patient is instructed on adequate control of hypertension and diabetes, if appropriate. They are also educated on the associated risks of NSAIDs and PPI use with kidney disease. They were instructed on adequate fluid balance and to avoid dehydration. Jan,cute blood loss anemia (ICD-10 - D62)Mild in degree, monitor for now. No obvious bleeding at this time. [facility] Other 06-27-2023 History general Narrative - Reported* Type Description Date Medical History HTN Medical HistoryHypercholesterolemiaMedical HistoryCKD stage 3aMedical History ASHDSurgical HistoryHeart Catheterization/Stents placed11/1999Surgical History Breast Mwymdipht0382Ublgngnf JnirruzIhizbkqgtthcnr6808Apswnhvi HistoryTrigger finger, penk0581Drwpoavk HistoryCataracts, hnirxunxd6298Qbylgthq HistoryLeft hip replacement03/2011Surgical HistoryEyelids kuhtkt92530Ysexcfpm HistoryPCI/stent LCX, PTCA distal LAD01/2023Hospitalization HistorySee past surgical hx [facility] Other 06-20-2023 History general Narrative - Reported* Type Description Date Medical History HTN Medical HistoryHypercholesterolemiaMedical HistoryCKD stage 3aMedical History ASHDSurgical HistoryHeart Catheterization/Stents placed11/1999Surgical History Breast Lycrctncq4193Ngsxucvx EwrpxgdXdsngfmunntmpz1760Xbwcgyqd HistoryTrigger finger, omjc1169Rufvsqae HistoryCataracts, ftspcpqqh2942Slbrtodw HistoryLeft hip replacement03/2011Surgical HistoryEyelids zexplt16619Fgbzmbmn HistoryPCI/stent LCX, PTCA distal LAD01/2023Hospitalization HistorySee past surgical hx [facility] Other 06-16-2023 Discharge summary Author Allan Townsend [facility] January 16, 2023 12:09pmNote Date/TimeJune 2022 12:[address] [place] [address] Discharge Summary Signed Patient: Atiya Jha MR#: [id number] : 1940 Acct:[id number] Age/Sex: 82 / F Adm Date: 3 Loc: Room: [address] [place] [address]: Allan Townsend DO Copies to: [...] PCI AMI 1st Vessel CX OLE - W Ziyad Townsend DO p CL PTCA 1st Vessel LAD - W Ziyad Townsend DO p CL Closure Device Placement 0 - Allan Townsend DO p CL LHC & COR Angio - W Ziyad Townsend DO Complications Complications: None Diagnostic Studies [...] Sodium 140, Potassium 4.0, Chloride 107, Carbon Qwnmlqd05.2, Anion Gap 11.8, BUN 15, Creatinine 0.88, Est GFR (CKD- EPI) > 60.0, Glucose 100, Calcium 8.8 01/16/23 03:46: Corrected WBC 5.2, Uncorrected WBC Count 5.2, RBC 3.57 L, Hgb 11.5 L, Hct 32.9 L, MCV 92.2, MCH 32.1, MCHC 34.8, RDW 13.8, Plt Count 161, MPV 8.0, Neut % (Auto) 54.3, Lymph % (Auto) 28.0, Austin % (Auto) 12.0, Eos % (Auto) 5.1, Baso % (Auto) 0.6, Nucleat RBC Rel Count 0.2, Neut # (Auto) 2.8, Lymph # (Auto) 1.4, Austin # (Auto) 0.6, Eos # (Auto) 0.3, [...] stent occurs in the first 2-3 weeks afterimplantation, you will need to take anticoagulants for [...] doctor or pharmacist, without first calling the estimation manager who implanted the stent. If you require [...] weight lifting, stair steppers, etc. until the estimation manager approves these activities. Check with the estimation manager on your first follow-up visit. CALL YOUR PHYSICIAN at [phone]: -If bleeding should occur from the catheter insertion site- apply pressure to the site then immediately call us. -Report any fever, redness, drainage, increased swelling, or firmness at the catheter insertion site. Some bruising or slight swelling may be present at thetime of discharge. -Should arm or leg become cold, numb, white, or blue, contact the estimation manager immediately. -IF you should experience episodes of angina, e.g. chest discomfort, heaviness, tightness, pressureburning with or without radiation to the neck, jaw, arms or back- use 1 Nitrostat tablet under yourtongue every 5-10 minutes and up to three tablets. IF NO RELIEF, CALL 911 or GO TO THE NEAREST EMERGENCY ROOM. -Please notify our office if you have recurrent angina. -[Cardiac Rehab Education Provided. Participation in the Cardiopulmonary Rehabilitation program is recommended. Please call Central Scheduling at [phone] to schedule your appointment.] The attending estimation manager or [facility] nurse clinician should provide you with specific instructions regarding activity, diet, medications, and further follow up for you. Follow the medication instructions provided on your discharge. If the dosages and instructions on this sheet differ from the dosage and instructions on the bottle, follow the instructions on the bottle. [facility] is not responsible for incorrect prescription information [...] By: <Electronically signed by Allan Townsend DO> 01/16/239 [facility] Work Phone: 1(234) 695-357506-15-2023 Progress note Author Allan Townsend [facility] January 15, 2023 3:40pmNote Date/TimeJune 2022 3:40[place] [address] Cardiology Progress Note Signed Patient: Atiya Jha MR#: [id number] : 1940 Acct:[id number] Age/Sex: 82 / F Adm Date: 3 Loc: Room: [address] [place] [address] Type: ADM IN Attending Dr: Allan Townsend [...] stable she remains on appropriate GDMT post IA at this time. Plan: We will continue [...] MPV Neut % (Auto) Lymph % (Auto) Austin % (Auto) Eos % (Auto) Baso % (Auto) Nucleat RBC Rel Count Neut # (Auto) Lymph # (Auto) Austin # (Auto) Eos # (Auto) Baso # (Auto) PHA Creatinine Clear Sodium Potassium Chloride Carbon Dioxide Anion Gap BUN Creatinine Est GFR (CKD-EPI) Glucose POC Glucose 112 Calcium Troponin I High Sens 71756.8 H* 68320.6 H* 01/14/23 01/15/23 01/15/23 22:13 03:54 03:54 Corrected WBC 6.9 Uncorrected WBC Count 6.9 RBC 3.65 Hgb 11.6 L Hct 33.2 L MCV 91.0 MCH 31.8 MCHC 34.9 RDW 13.7 Plt Count 160 MPV 7.8 Neut % (Auto) 68.3 Lymph % (Auto) 19.7 Austin % (Auto) 8.9 Eos % (Auto) 2.7 Baso % (Auto) 0.4 Nucleat RBC Rel Count 0.1 Neut # (Auto) 4.7 Lymph # (Auto) 1.4 Austin # (Auto) 0.6 Eos # (Auto) 0.2 Baso # (Auto) 0.0 PHA Creatinine Clear 53.75 Sodium 137 Potassium 3.8 Chloride 105 Carbon Dioxide 24.1 Anion Gap 11.7 BUN 14 Creatinine 0.80 Est GFR (CKD-EPI) > 60.0 Glucose 97 POC Glucose Calcium 8.6 Troponin I High Sens 45882.5 H* 01/15/23 01/15/23 03:54 08:42 Corrected WBC Uncorrected WBC Count RBC Hgb Hct MCV MCH MCHC RDW Plt Count MPV Neut % (Auto) Lymph % (Auto) Austin % (Auto) Eos % (Auto) Baso % (Auto) Nucleat RBC Rel Count Neut # (Auto) Lymph # (Auto) Austin # (Auto) Eos # (Auto) Baso # (Auto) PHA Creatinine Clear Sodium Potassium Chloride Carbon Dioxide Anion Gap BUN Creatinine Est GFR (CKD-EPI) Glucose POC Glucose 108 Calcium Troponin I High Sens 40077.5 H* A&P - Cardiology (1) ST elevation [...] signed by Allan Townsend DO> 01/15/[address] [facility] Work Phone: 1(484) 816-545506-14-2023 [facility]23 Procedure note [facility] History and physical note Author Allan Townsend [facility] January 14, 2023 10:41amNote Date/TimeJune 2022 10:41[place], [place] [address] Cardiology H&P Signed Patient: Atiya Jha MR#: [id number] : 1940 Acct:[id number] Age/Sex: 82 / F Adm Date: 3 Loc: Room: Type: [facility] Attending Dr: Allan Townsend DO Copies to: MD Allan Dorado, ~ Date of Service: 01/14/2023 Cardiology HPI History of Present Illness Chief complaint: Anterolateral STEMI HPI: Ms. Jha is a 82 year old female admitted through the emergency room in transfer from [facility] at 0905 with anterolateral STEMI. Symptoms began earlier this morning, patient was transported by squad, prearrival ECGs were reviewed by myself via telephonic communication and communication with ER attending. Patient arrived at [employer] [facility] at 0923, having received up stream antiplatelet [...] her family's report. Patient arrives to the [employer] hypertensive, in sinus rhythm without arrhythmias, ongoing chest discomfort, no evidence of cardiogenic shock Cath and intervention ensued without complications Total 60 minutes of nonprocedural critical care time were devoted to the ER staff, [employer] staff, nursing staff, patient and family both [...] x10E3/uL Lymph # (Auto) 2.1 (1.00-4.8) x10E3/uL Austin # (Auto) 0.5 (0.0-0.8) x10E3/uL Eos # [...] Interpretations EKG EKG results cardiology: sinus rhythm IA, pacemaker, normal Myocardial infarction: anterior IA (acute or recent) and lateral IA (acute or recent) A&P - Cardiology (1) [...] signed by Allan Townsend DO> 01/14/[address] [facility] Work Phone: 1(798) 381-421206-14-2023 History and physical note Author Allan Townsend [facility] January 14, 2023 10:41amNote Date/TimeJune 2022 10:41[place] [address] Cardiology H&P Signed Patient: Atiya Jha MR#: [id number] : 1940 Acct:[id number] Age/Sex: 82 / F Adm Date: 3 Loc: Room: Type: [facility] Attending Dr: Allan Townsend DO Copies to: MD Allan Dorado DO~ Date of Service: 01/14/2023 Cardiology HPI History of Present Illness Chief complaint: Anterolateral STEMI HPI: Ms. Jha is a 82 year old female admitted through the emergency room in transfer from [facility] at 0905 with anterolateral STEMI. Symptoms began earlier this morning, patient was transported by squad, prearrival ECGs were reviewed by myself via telephonic communication and communication with ER attending. Patient arrived at [employer] [facility] at 0923, having received up stream antiplatelet [...] her family's report. Patient arrives to the [employer] hypertensive, in sinus rhythm without arrhythmias, ongoing chest discomfort, no evidence of cardiogenic shock Cath and intervention ensued without complications Total 60 minutes of nonprocedural critical care time were devoted to the ER staff, [employer] staff, nursing staff, patient and family both [...] x10E3/uL Lymph # (Auto) 2.1 (1.00-4.8) x10E3/uL Austin # (Auto) 0.5 (0.0-0.8) x10E3/uL Eos # [...] Albumin 4.3 (3.5-5.7) gm/dL Intake and Output 06/13/23 06/14/23 06/14/23 23:59 07:59 15:59 Other: # Bowel Movements 1 Weight 74 kg Patient Weight 01/14/23 23:59 Weight 74 kg Lab 01/14/23 09:15 PT 11.9 INR 1.0 APTT 274.4 H* EKG Interpretations EKG EKG results cardiology: sinus rhythm IA, pacemaker, normal Myocardial infarction: anterior IA (acute or recent) and lateral IA (acute or recent) A&P - Cardiology (1) [...] signed by Allan Townsend DO> 01/14/23 1041 [facility] Work Phone: 1(201) 150-399806-01-2023 Evaluation note* Encounter Date Diagnosis Assessment Notes Treatment Notes Treatment Clinical Notes Jan, Elevated cholesterol (ICD-10 - E 78.00) [facility] Other 05-03-2023 Evaluation note* Encounter Date Diagnosis Assessment Notes Treatment Notes Treatment Clinical Notes December, Stage 3a chronic kidney disease (ICD-10 - N18.31) [facility] Other 02-15-2023 Evaluation note* Encounter Date Diagnosis Assessment Notes Treatment Notes Treatment Clinical Notes Sep, Stage 3a chronic kidney disease (ICD-10 - N18.31) The patient is instructed on adequate control of hypertension and diabetes, if appropriate. They are also educated on the associated risks of NSAIDs and PPI use with kidney disease. They were instructed on adequate fluid balance and to avoid dehydration. Sep,SHD (arteriosclerotic heart disease) (ICD-10 - I25.10)This patient is stable without activity related CP, dyspnea or lightheadedness. They are instructedto continue exercise and AHA diet plan. 15 Feb, 2023Primary hypertension (ICD-10 - I10)This patient is instructed to consume a healthy, low-fat, low-salt diet. They are also encouraged to continue exercise to achieve/maintain a normal BMI. Sep,reast pain in female (ICD-10 - N64.4)Reassure, continue SBE w/ inspection. Notify office w/ any palpable mass, nipple d/c, skin color change. Sep,Elevated cholesterol (ICD-10 - E78.00) Sep,olyuria (ICD-10 - R35.89)Push fluids, cranberry juice, recheck UA if symptoms increase Sep,iarrhea, unspecified type (ICD-10 - R19.7)Diet instructions, monitor for now. Notify office w/ any change in appetite, weight, abdominal pain/cramping or rectal bleeding. [facility] Other 02-14-2023 Evaluation note* Encounter Date Diagnosis Assessment Notes Treatment Notes Treatment Clinical Notes Sep, Elevated cholesterol (ICD-10 - E 78.00) [facility] Other 02-25-2011 Nurse Note* 09/27/2010 12:00 PM [...] In Department: PAIN MANAGEMENT [facility] History general Narrative - Reported* Type Description Date Medical History HTN Medical HistoryHypercholesterolemiaSurgical HistoryHeart Catheterization/Stents placed11/1999Surgical HistoryBreast Sgirjlfzc2319Itqiqyhz HistoryAbdominoplasty 2002Surgical HistoryTrigger finger, khua1940Bfuxsumz HistoryCataracts, bilateral 2010Surgical HistoryLeft hip replacement03/2011Surgical HistoryEyelids lifted 31828Bqlbfiipuyzgbwt HistorySee past surgical hx [facility] Other 04-01-2000 History general Narrative - Reported* Type Description Date Medical History HTN Medical HistoryHypercholesterolemiaMedical HistoryCKD stage 3aSurgical History Heart Catheterization/Stents placed11/1999Surgical HistoryBreast Mpmbgtxng8304 Surgical IdtsrdvVaemrkumfpokus5312Yyicmwqs HistoryTrigger finger, gixf3274 Surgical HistoryCataracts, pekkxudqv5580Zkdoaezk HistoryLeft hip replacement 03/2011Surgical HistoryEyelids cxsrvu54340Ddcwqkpmakaorji HistorySee past surgical hx [facility] Other 04-01-2000 History general Narrative - Reported* Type Description Date Medical History HTN Medical HistoryHypercholesterolemiaMedical HistoryCKD stage 3aMedical History ASHDSurgical HistoryHeart Catheterization/Stents placed11/1999Surgical History Breast Exzlumlrp9556Yqygssdb WnaxmekVlyerhxyoshcvt5762Yanhqrte HistoryTrigger finger, qgyv8314Nhmkjfuw HistoryCataracts, pepwjvofo0949Pytvotjz HistoryLeft hip replacement03/2011Surgical HistoryEyelids emmoaf15091Hymqatmp HistoryPCI/stent LCX, PTCA distal LAD01/2023Hospitalization HistorySee past surgical hx [facility] Other 04-01-2000 History general Narrative - Reported* [...] 06/2023 Hospitalization History See past surgical hx [facility] Other Evaluation + Plan note No data available for this section [facility] Jeanette Evaluation + Plan note Future Appointments Appointment Date:04/27/2024 10:30:00 AM Scheduled Provider:Jerson STREETER MD Location:[facility] [place] Appointment Type:URO Office Visit [facility] Evaluation noteNo [facility] Other Evaluation note* Diagnosis Onset Date Resolution Status High cholesterol acuteHistory of heart artery stentacuteHypertensionacuteST elevation (STEMI) myocardial infarctionacute [facility] Work Phone: Evaluation note* Diagnosis ASCVD (arteriosclerotic cardiovascular disease)- Primary Unspecified cardiovascular disease Essential hypertension Unspecified essential hypertension Mixed hyperlipidemia Congestive heart failure, NYHA class 2 and ACC/AHA stage C (CMS/HCC) History of PTCA Postsurgical percutaneous transluminal coronary angioplasty status documented in this encounter [facility] Work Phone: Evaluation note* Diagnosis Onset Date Resolution Status Anemia acuteFatigueacuteLumbar spondylosisacuteNauseaacutePrimary hypertensionacute [facility] Work Phone: Evaluation note* Diagnosis ASCVD (arteriosclerotic cardiovascular disease) Unspecified cardiovascular disease Chest tightness Other chest pain Shortness of breath documented in this encounter [facility] Work Phone: Evaluation note* Diagnosis ASCVD (arteriosclerotic cardiovascular disease) Unspecified cardiovascular disease Chest tightness Other chest pain Shortness of breath documented in this encounter [facility] Work Phone: Evaluation note* Diagnosis Onset Date Resolution Status Anemia acuteASHD (arteriosclerotic heart disease)acuteFatigueacuteLumbar spondylosis acuteNauseaacutePrimary hypertensionacute [facility] Work Phone: Evaluation note* Diagnosis Onset Date Resolution Status Anemia acuteASHD (arteriosclerotic heart disease)acuteLumbar spondylosisacutePrimary hypertensionacuteASHD (arteriosclerotic heart disease)acuteCoronary artery diseaseacuteHypertensionacuteUnstable anginaacute [facility] Work Phone: Evaluation note* Diagnosis Dysuria- Primary Congestive heart failure, NYHA class 2 and ACC/AHA stage C (Multi) Weakness Other malaise and fatigue ASCVD (arteriosclerotic cardiovascular disease) Unspecified cardiovascular disease documented in this encounter [facility] Work Phone: Evaluation note* Diagnosis Onset Date Resolution Status Anemia acuteASHD (arteriosclerotic heart disease)acuteLumbar spondylosisacutePrimary hypertensionacuteAbnormal cardiovascular stress testacuteASHD (arteriosclerotic heart disease)acuteCoronary artery diseaseacuteHypertensionacuteUnstable angina acute [facility] Work Phone: Evaluation note* Diagnosis Onset Date Resolution Status Anemia acuteASHD (arteriosclerotic heart disease)acuteLumbar spondylosisacutePrimary hypertensionacuteAbnormal cardiovascular stress testacuteASHD (arteriosclerotic heart disease)acuteCoronary artery diseaseacuteHypertensionacuteUnstable angina acuteAcute on chronic heart failure with preserved ejection fraction (HFpEF) acuteASHD (arteriosclerotic heart disease)acuteChronic venous insufficiency of lower extremityacuteLumbar spondylosisacutePrimary hypertensionacute [facility] Work Phone: Evaluation note* Diagnosis Essential hypertension- Primary Unspecified essential hypertension ASCVD (arteriosclerotic cardiovascular disease) Unspecified cardiovascular disease Mixed hyperlipidemia History of PTCA Postsurgical percutaneous transluminal coronary angioplasty status Never smoked cigarettes documented in this encounter [facility] Work Phone: Evaluation note* Diagnosis Onset Date Resolution Status Abnormal cardiovascular stress test acuteASHD (arteriosclerotic heart disease)acuteCoronary artery diseaseacute HypertensionacuteUnstable anginaacuteASHD (arteriosclerotic heart disease)acute Chronic venous insufficiency of lower extremityacuteLumbar spondylosisacute Primary hypertensionacute [facility] Work Phone: Evaluation note* Diagnosis Onset Date Resolution Status ASHD (arteriosclerotic heart disease) acuteChronic venous insufficiency of lower extremityacuteLumbar spondylosisacute Primary hypertensionacute [facility] Work Phone: Evaluation note* Diagnosis Onset Date Resolution Status ASHD (arteriosclerotic heart disease) acuteChronic venous insufficiency of lower extremityacuteLumbar spondylosisacute Primary hypertensionacuteASHD (arteriosclerotic heart disease)acuteChronic venous insufficiency of lower extremityacuteHeart failure with improved ejection fraction (HFimpEF)acuteLumbar spondylosisacutePrimary hypertensionacute [facility] Work Phone: Evaluation note* Diagnosis Onset Date Resolution Status ASHD (arteriosclerotic heart disease) acuteChronic venous insufficiency of lower extremityacuteHeart failure with improved ejection fraction (HFimpEF)acuteLumbar spondylosisacutePrimary hypertensionacuteASHD (arteriosclerotic heart disease)acuteCOVIDacute [facility] Work Phone: Evaluation note* Diagnosis Chronic low back pain with right-sided sciatica, unspecified back pain laterality- Primary Lumbar spine pain Trigger point documented in this encounter [facility]* Diagnosis Chronic low back pain, unspecified back pain laterality, unspecified whether sciatica present documented in this encounter [facility] HealthcareEvaluation note* Diagnosis Pessary maintenance Fitting and adjustment of other device Cystocele with rectocele Urethral caruncle Vaginal atrophy Postmenopausal atrophic vaginitis 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 documented in this encounter [facility] HealthcareEvaluation note* Diagnosis Spondylolisthesis of lumbar region- Primary Lumbar spine pain Spondylolisthesis of lumbar region [facility] Diagnosis Onset Date Resolution Status ASHD (arteriosclerotic heart disease) acuteChronic venous insufficiency of lower extremityacuteHeart failure with improved ejection fraction (HFimpEF)acuteLumbar spondylosisacutePrimary hypertensionacuteASHD (arteriosclerotic heart disease)acuteCOVIDacuteGroin pain, chronic, rightacuteH/O total hip arthroplastyacuteLumbar spondylosisacutePrimary osteoarthritis of right hipacuteS[facility]ile [facility]uria[facility] Work Phone: Evaluation note* Diagnosis Dysuria- Primary [...] BMI 24.0-24.9, adult documented in this encounter [facility] Work Phone: Evaluation note* Diagnosis 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 documented in this encounter [facility] HealthcareEvaluation note* Diagnosis Dermatophytosis of nail- Primary Dystrophic nail Other specified disease of nail Pain around toenail, right foot Pain around toenail, left foot documented in this encounter [facility] HealthcareEvaluation note* Diagnosis Dermatophytosis of nail- Primary Dystrophic nail Other specified disease of nail Pain around toenail, right foot Pain around toenail, left foot documented in [facility] encounter [facility]* Diagnosis DDD (degenerative disc disease), lumbar- Primary Degeneration of lumbar or lumbosacral intervertebral disc Chronic low back pain with right-sided sciatica, unspecified back pain laterality Trigger point documented in this encounter [facility] HealthcareEvaluation note* Diagnosis Bilateral impacted cerumen- Primary Impacted cerumen documented in this encounter [facility]* Diagnosis Pessary maintenance Fitting and adjustment of other device Cystocele with rectocele Urethral caruncle Vaginal atrophy Postmenopausal atrophic vaginitis Vulvar irritation documented in this encounter [facility] HealthcareEvaluation note* Diagnosis Dermatophytosis of nail- Primary Dystrophic nail Other specified disease of nail Pain around toenail, right foot Pain around toenail, left foot documented in this encounter [facility] HealthcareEvaluation note* Diagnosis Onset Date Resolution Status Admit Date Aortic stenosis acuteMar2024 10:53amASHD (arteriosclerotic heart disease)acuteOctober 18, 2024 10:53amHeart failure with improved ejection fraction (HFimpEF)acute October 18, 2024 10:53amLumbar spondylosisacuteMarch 2024 10:53am OsteoporosisacuteMar2024 10:53amPrimary hypertensionacuteMarch 2024 10:53amScreening mammogram for breast canceracuteMar2024 10:53am [facility] Work Phone: Evaluation note* Diagnosis Dysuria- Primary [...] Never smoked cigarettes documented in this encounter [facility] Work Phone: Evaluation note* Diagnosis Dysuria- Primary [...] of care unspecified documented in this encounter [facility] Work Phone: Evaluation note* Diagnosis Dysuria- Primary [...] Never smoked cigarettes documented in this encounter [facility] Work Phone: Evaluation note* Diagnosis Arthritis of [...] malaise and fatigue documented in this encounter [facility] Work Phone: Evaluation note* Diagnosis Dermatophytosis of [...] ACC/AHA stage C documented in this encounter [facility] Work Phone: Evaluation note* Diagnosis Dermatophytosis of nail- Primary Dystrophic nail Other specified disease of nail Pain around toenail, right foot Pain around toenail, left foot documented in this encounter [facility]* Diagnosis History of total right hip replacement- Primary Acute right hip pain Right hip pain Pain in joint, pelvic region and thigh documented in this encounter [facility]* Diagnosis Pessary maintenance- Primary Fitting and adjustment of other device Cystocele with rectocele Vaginal atrophy Postmenopausal atrophic vaginitis Granulation tissue documented in this encounter [facility] HealthcareHistory and physical note Author Louis Oliveira [facility]Note Date/TimeJuly 2024 11:08pm[place] [address] Hospitalist H&P Signed Patient: Atiya Jha MR#: [id number] : 1940 Acct:[id number] Age/Sex: 84 / F Adm Date: 5 Loc: 3T Room: [address] [place] [address] Type: ADM INOo Attending Dr: Louis Oliveira [...] negative unless noted below or in HPI [facility] Medical History (Updated 02/09/25 @ 23:00 by [...] 02/09/25 20:00 Hct 41.1 % (34.0-46.4) 02/09/25 20:00 MCV 92.2 fl (80-100) 02/09/25 20:00 MCH 32.0 pg (24.7-34.3) 02/09/25 20:00 MCHC 34.7 g/dL (32.0-35.0) 02/09/25 20:00 RDW 13.2 % (11.9-15.3) 02/09/25 20:00 Plt Count 222 x10E3/uL (150-450) 02/09/25 20:00 MPV 7.1 fl (6.3-10.7) 02/09/25 20:00 Neut % (Auto) 68.7 % (.) 02/09/25 20:00 Lymph % (Auto) 21.6 % (.) 02/09/25 20:00 [place] % (Auto) 8.6 % (.) 02/09/25 20:00 Eos % (Auto) 0.5 % (.) 02/09/25 20:00 Baso % (Auto) 0.6 % (.) 02/09/25 20:00 Nucleat RBC Rel Count 0.1 /100 WBC (0-0.5) 02/09/25 20:00 Neut # (Auto) 4.8 x10E3/uL (1.8-7.7) 02/09/25 20:00 Lymph # (Auto) 1.5 x10E3/uL (1.00-4.8) 02/09/25 20:00 [place] # (Auto) 0.6 x10E3/uL (0.0-0.8) 02/09/25 20:00 [...] 20:00 Anion Gap 12.6 mEq/L (6.0-15.0) 02/09/25 20: BUN 15 mg/dL (7-25) 02/09/25 20:00 Creatinine [...] signed by Louis Oliveira MD> 02/09/25 2303 [facility] Work Phone: History of Present [...] a modest diet and weight loss were advocated.-[facility] DO Work Phone: Hospital Discharge instructions [...] doctor or pharmacist, without first calling the estimation manager who implanted the stent. If you require [...] weight lifting, stair steppers, etc. until the estimation manager approves these activities. Check with the estimation manager on your first follow-up visit. CALL YOUR PHYSICIAN at [phone]: -If bleeding should occur from the catheter insertion site- apply pressure to the site then immediately call us. -Report any fever, redness, drainage, increased swelling, or firmness at the catheter insertion site. Some bruising or slight swelling may be present at the time of discharge. -Should arm or leg become cold, numb, white, or blue, contact the estimation manager immediately. -IF you should experience episodes of [...] is recommended. Please call Central Scheduling at [phone] to schedule your appointment.] The attending estimation manager or [facility] nurse clinician should provide you with specific instructions regarding activity, diet, medications, and further follow up for you. Follow the medication instructions provided on your discharge. If the dosages and instructions on this sheet differ from the dosage and instructions on the bottle, follow the instructions on the bottle. [facility] is not responsible for incorrect prescription information provided by the patient during their visit. Do not stop your medications without consulting your health care provider. Please take the list with you to your next doctor's appointment.[facility] Work Phone: Hospital Discharge instructions [...] doctor or pharmacist, without first calling the estimation manager who implanted the stent. If you require [...] weight lifting, stair steppers, etc. until the estimation manager approves these activities. Check with the estimation manager on your first follow-up visit. CALL YOUR [employer] PRODUCTION MANAGER: -If bleeding should occur from the catheter insertion site- apply pressure to the site then immediately call us. -Report any fever, redness, drainage, increased swelling, or firmness at the catheter insertion site. Some bruising or slight swelling may be present at the time of discharge. -Should arm or leg become cold, numb, white, or blue, contact the estimation manager immediately. -IF you should experience episodes of [...] if you have recurrent angina. The attending estimation manager or a nurse clinician should provide you with specific instructions regarding activity, diet, medications, and further follow up for you. Follow the medication instructions provided on your discharge. If the dosages and instructions on this sheet differ from the dosage and instructions on the bottle, follow the instructions on the bottle. [facility] is not responsible for incorrect prescription information provided by the patient during their visit. Do not stop your medications without consulting your health care provider. Please take the list with you to your next doctor's appointment.[facility] Work Phone: Hospital Discharge instructions Additional Instructions Follow up with your primary care doctor and Dr Townsend Return to the ED if you develop worsening symptoms or concernsDayton Children'S Hospital [facility]tr Work Phone: Hospital Discharge instructions No data available for this section [facility] Hospital Discharge instructions Additional Instructions -FULL codeDayton Children'S Hospital Ctr Work Phone: Hospital Discharge instructions Additional Instructions Obtain BMP on Thursday as orderedSt[facility] Work Phone: Progress note No data available for this section [facility] Reason for referral (narrative)* Consultation (Routine) - AuthorizedSpecialtyDiagnoses / ProceduresReferred By ContactReferred To ContactCardiology Diagnoses ASCVD (arteriosclerotic cardiovascular disease) Procedures Follow Up In Cardiology Pineda Santillan MD [address], [address] [address] Pineda Santillan MD [address], [address] [address] Referral IDStatusReasonStart DateExpiration DateVisits RequestedVisits [id number]/13/202311/ [facility] Work Phone: Rekmle for referral (narrative)* Consultation (Routine) - AuthorizedSpecialtyDiagnoses / ProceduresReferred By Contact Referred To ContactCardiology Diagnoses ASCVD (arteriosclerotic cardiovascular disease) Procedures Follow Up In Cardiology Pineda Santillan MD [address] [place] [address] 2, [address] [address] Pineda Santillan MD [address] [place] [address], [address] [address] Referral IDStatusReasonStart DateExpiration DateVisits RequestedVisits [id number]/11/20246/ [facility] Work Phone: Reason for referral (narrative)No reason for referral information availableSt. [facility] Of [facility] Work Phone: Reason for visit Narrative* Auth/CertSpecialty Diagnoses / ProceduresReferred By ContactReferred To Contact Diagnoses CAD, needs angioplasty Procedures INPATIENT [place] [address] [place] [address] Phone: tel: fax: [facility] [address] [facility] [place] [address] Referral IDStatusReasonStart DateExpiration DateVisits RequestedVisits [id number] [facility] Work Phone: Summary Purpose Family History Unknown Family Member Name Dates Details Family history of arterioscl erotic cardiovascular disease: Father, Sister, Brother(V17.49, Z82.49) Status:Active Relationship Condition Age at Onset Recorded Date/T seble Not Specified Congestive heart failure Unknown HypertensionUnknownsisterMyocardial infarctionUnknownfatherMyocardial infarction Unknown Unknown Family Member Name Dates [...] seble Not Specified Congestive heart failure Unknown HypertensionUnknownsisterMyocardial infarctionUnknownfatherMyocardial infarction UnknownDeceasedUnknownHeart diseaseUnknownNot SpecifiedDeceasedUnknown Relationship Condition Age at Onset Recorded Date/T seble sister Myocardial infarction Unknown fatherHeart diseaseUnknownMyocardial infarctionUnknownDeceasedUnknownCongestive heart failureUnknownHypertensionUnknownNot SpecifiedDeceasedUnknown Relationship Condition Age at Onset Recorded Date/T seble sister Myocardial infarction Unknown fatherHeart diseaseUnknownMyocardial infarctionUnknownDeceasedUnknownCongestive heart failureUnknownHypertensionUnknownmotherDeceasedUnknown Advance Directives TypeDate RecordedPatient RepresentativeExplanationHealthcare Power of Atty 12/05/2024 12:00 AMDate ActivatedDate InactivatedComments11/29/2024 2:58 PMQuestion AnswerCommentsPlan of Care:* Code Status Discussion Completed Decision Maker:* Patient NameRelationshipHealthcare Agent RelationshipCommunicationDawn AnoaDaughter Health Care Agent* [facility]ay [facility] Alternate Health Care Agent* TypeDate RecordedPatient RepresentativeExplanationAdvance Directive(s) Advance Directive Response Recorded Date/ Time Advance Directives No 2017 6:23pm TypeDate RecordedPatient RepresentativeExplanationLiving Will06/05/2021 7:19 AM Date ActivatedDate DelxgoprefiQpgqkgkv49/3/2021 12:15 PM06/08/2021 6:27 PM Advance Directive Response Recorded Date/ Time Advance Directives No 2017 5:23pm NameRelationshipHealthcare Agent RelationshipCommunicationDawn AnoaDaughter Health Care Agent* Chay ScheererSonFirst Alternate Health Care Agent* Advance Directive Response Recorded Date/ Time Advance Directives Yes December 02, 2024 11:31am NameRelationshipHealthcare Agent RelationshipCommunicationDawn AnoaDaughter Health Care Agent* Chay ScheererSonFirst Alternate Health Care Agent* NameRelationshipHealthcare Agent RelationshipCommunicationDawn AnoaDaughter Health Care Agent* Chay ScheererSonFirst Alternate Health Care Agent* Chief Complaint ATIYA JHA is being seen [...] Chief Complaint Pain Right Side Not Feeling RightReason for VisitAnemia Fatigue Lumbar spondylosis Nausea Primary hypertension Chief Complaint Not Feeling Right Abnormal Stress Test History of PTCA AFCVDReason for VisitAnemia ASHD (arteriosclerotic heart disease) Fatigue Lumbar spondylosis Nausea Primary hypertension Chief Complaint Not Feeling Right Abnormal Stress Test History of PTCA AFCVD Abnormal Stress Test History of PTCA AFCVDReason for VisitAnemia ASHD (arteriosclerotic heart disease) Lumbar spondylosis Primary hypertension ASHD (arteriosclerotic heart disease) Coronary artery disease Hypertension Unstable angina Chief Complaint Not Feeling Right Abnormal Stress Test History of PTCA AFCVD Abnormal Stress Test History of PTCA AFCVD chest painReason for VisitAnemia ASHD (arteriosclerotic heart disease) Lumbar spondylosis Primary hypertension Abnormal cardiovascular stress test ASHD (arteriosclerotic heart disease) Coronary artery disease Hypertension Unstable angina Chief Complaint Not Feeling Right Abnormal Stress Test History of PTCA AFCVD Abnormal Stress Test History of PTCA AFCVD chest pain swollen feetReason for VisitAnemia ASHD (arteriosclerotic heart disease) Lumbar spondylosis Primary [...] of PTCA AFCVD chest pain swollen feet i50.33Reason for VisitAnemia ASHD (arteriosclerotic heart disease) Lumbar spondylosis Primary [...] PTCA AFCVD chest pain swollen feet i50.33 UAReason for VisitAbnormal cardiovascular stress test ASHD (arteriosclerotic heart disease) Coronary artery disease Hypertension Unstable angina ASHD (arteriosclerotic heart disease) Chronic venous insufficiency of lower extremity Lumbar spondylosis Primary hypertension Chief Complaint chest pain swollen feet i50.33 UAReason for VisitASHD (arteriosclerotic heart disease) Chronic venous insufficiency of lower extremity Lumbar spondylosis Primary hypertension Chief Complaint chest pain swollen feet i50.33 UA N39.43 N39.41 6 month follow upReason for VisitASHD (arteriosclerotic heart disease) Chronic venous insufficiency of lower extremity Lumbar spondylosis Primary hypertension ASHD (arteriosclerotic heart disease) Chronic venous insufficiency of lower extremity Heart failure with improved ejection fraction (HFimpEF) Lumbar spondylosis Primary hypertension Chief Complaint UA N39.43 N39.41 6 month follow up COVID + [phone] for VisitASHD (arteriosclerotic heart disease) Chronic venous insufficiency of lower extremity Heart failure with improved ejection fraction (HFimpEF) Lumbar spondylosis Primary hypertension ASHD (arteriosclerotic heart disease) COVID Chief Complaint UA N39.43 N39.41 6 month follow up COVID + [phone] right sided groin painReason for VisitASHD (arteriosclerotic heart disease) Chronic venous insufficiency of lower extremity Heart failure with improved ejection fraction (HFimpEF) Lumbar spondylosis Primary hypertension ASHD (arteriosclerotic heart disease) COVID Chief Complaint 6 month follow up COVID + [phone] right sided groin pain right arm pain following a fallReason for VisitASHD (arteriosclerotic heart disease) Chronic venous insufficiency of [...] 01, 2024 9:29am Medicare annual wellness visit, subseque nt July 01, 2024 9:29am Primary hypertension [...] 2024 10: 53am ASHD (arteriosclerotic heart disease) [facility] 2024 10:53am Heart failure with improved ejection fra ction (HFimpEF) October 18, 2024 10:53am Lumbar spondylosis October 18, 2024 10: 53am Osteoporosis October 18, 2024 10: 53am Primary hypertension October 18, 2024 10 :53am Screening mammogram for breast cancer [facility] 2024 10:53am Chief Complaint Admit Date UA [...] Rib fracture February 24, 2025 10:1 6am Chief Complaint Admit Date left side pain [...] 24, 2025 10:1 6am Reason for Referral SpecialtyDiagnoses / ProceduresReferred By ContactReferred To Contact Diagnoses DDD (degenerative disc disease), lumbar Trigger point Procedures Trigger Point Injection ([place] [address] [place] [address]): right gluteus willian Devin [place], FRAMER [address] [place] [address] Referral IDStatusReasonStart DateExpiration DateVisits RequestedVisits [id number] / Procedures Referred By ContactReferred To ContactRadiology Diagnoses Lumbar spine pain Procedures MR lumbar spine wo contrast González Suazo, [address] [facility] [address] [place] [address] [facility] Mr [address] [facility] [address] [place] [address] Referral IDStatusReasonStart DateExpiration DateVisits RequestedVisits [id number] / Procedures Referred By ContactReferred To ContactOrthopaedic Surgery Diagnoses Trigger point Procedures Trigger Point Injection (CPT [address] or [address]): right gluteus willian González Suazo, DO [address] [place] [address] [facility] [address] [place] [address] Ref[facility]Status[facility] DateExpiration DateVisits RequestedVisits [id number] / Procedures Referred By ContactReferred To ContactRadiology Diagnoses ASCVD (arteriosclerotic cardiovascular disease) Chest tightness Shortness of breath Procedures Nuclear Stress Test CHG MYOCARDIAL SPECT MULTIPLE STUDIES Pineda Santillan MD [address] [facility] [address], [address] [place] [address] Referral IDStatusR[facility] DateExpiration DateVisits RequestedVisits [id number]/22/20243/[id number] Additional Source Comments INFORMATION SOURCE (unrecogn ized section and content) DATE CREATED AUTHOR 01/26/2018 [facility] DATE CREATED AUTHOR AUTHOR'S ORGANIZ ATION 06/05/2022 [employer] DATE CREATED AUTHOR AUTHOR'S ORGANIZ ATION 12/11/2022 [facility] DATE CREATED AUTHOR AUTHOR'S ORGANIZ ATION 03/19/2023 [facility] DATE CREATED AUTHOR AUTHOR'S ORGANIZ ATION 06/27/2024 [facility] DATE CREATED AUTHOR AUTHOR'S ORGANIZ ATION 07/16/2024 [facility] DATE CREATED AUTHOR AUTHOR'S ORGANIZ ATION 11/29/2024 [facility] DATE CREATED AUTHOR AUTHOR'S ORGANIZ ATION 12/06/2024 [facility] DATE CREATED AUTHOR AUTHOR'S ORGANIZ ATION 12/07/2024 [facility] DATE CREATED AUTHOR AUTHOR'S ORGANIZ ATION 12/10/2024 [facility] DATE CREATED AUTHOR AUTHOR'S ORGANIZ ATION 04/08/2025 [facility] DATE CREATED AUTHOR AUTHOR'S ORGANIZ ATION 04/13/2025 [facility] DATE CREATED AUTHOR AUTHOR'S ORGANIZ ATION 06/04/2025 [facility] EPIC Source Comments (unrecognize d section and content) In the event this informatio n is protected by the Federal Confidentiality of Alcohol and Drug Abuse Patient Records regulations: The Federal rules restrict any use of the information to criminally investigate or prosecute any alcohol or drug abuse patient.[facility] Reason for Visit (unrecogniz ed section and content) ReasonCommentsPatient EducationReasonCommentsAnnual ExamSpecialtyDiagnoses / ProceduresReferred By ContactReferred To ContactRadiology Diagnoses ASCVD (arteriosclerotic cardiovascular disease) Chest tightness Shortness of breath Procedures Nuclear Stress Test CHG MYOCARDIAL SPECT MULTIPLE STUDIES Pineda Santillan MD [address] [address], [place] [address] Referral IDStatusReasonStart DateExpiration DateVisits RequestedVisits [id number]/22/20243/22/[id number]-moAzoish Office VisitSpecialtyDiagnoses / ProceduresReferred By ContactReferred To ContactCardiology Diagnoses Congestive heart failure, NYHA class 2 and ACC/AHA stage C (Multi) Procedures Follow Up In Cardiology Sulma Busby APRN-CNP [address] [address], [address] [address] Sulma Busby APRN-CNP [address] [facility] 2, [address] [address] Referral IDStatusReasonStart DateExpiration DateVisits RequestedVisits [id number]/24/20244/24/[id number]-cm3 yr SpecialtyDiagnoses / ProceduresReferred By ContactReferred To ContactCardiology Diagnoses ASCVD (arteriosclerotic cardiovascular disease) Procedures Follow Up In Cardiology Pineda Santillan MD [address] [place] [address], [address] [phone] Pineda Santillan MD [address] [place] [address], [address] [phone] Referral IDStatusReasonStart DateExpiration DateVisits RequestedVisits [id number]/13/202311/12/353602VhdgnzOqkbj DateComments yqiiogiqo21/30/2024ReasonCommentsFollow-upReasonOnset AmnoYkurgelvpld18/15/2024 ReasonCommentsGynecologic ExamPessary follow up. No complaints. Patient states that between pessary and medication she's happy and it has been working great. ReasonCommentsPainHad xray done today having lots of lower back painReason CommentsPre-op ClearanceLumbar fusion / LAMI - not scheduled yetSpecialty Diagnoses / ProceduresReferred By ContactReferred To ContactCardiology Diagnoses ASCVD (arteriosclerotic cardiovascular disease) Pre-operative cardiovascular examination Procedures Follow Up In Cardiology Jamia Ndiaye MD [address] [place] [address] 2, [address] [phone] Phone: tel: fax: Jamia Ndiaye MD [address] [place] [address] 2, [address] [phone] Phone: tel: fax: Referral IDStatusReasonStart DateExpiration DateVisits RequestedVisits [id number]/24/202410/24/413863OlonrsIbsufkmaKdixxd-pfGknvkx CommentsNail Lizette Jha is a 84 y.o. female who presents for Nail care.ReasonCommentsNail Lizette Jha is a 83 y.o. female who presents for nail care.ReasonCommentsPainReasonCommentsGynecologic ExamPt presents for 4 month follow up with pessary. No problems with pessary or abnormal bleeding. ReasonCommentsToenail CareEstablished pt presents today with her for nail care.ReasonCommentsFollow-upPatient here for 9 month follow up for congestive heart failure, denies cardiac c/o at this time.SpecialtyDiagnoses / ProceduresReferred By ContactReferred To ContactCardiology Diagnoses ASCVD (arteriosclerotic cardiovascular disease) Procedures Follow Up In Cardiology Pineda Santillan MD McGuinn, William P, MD Retired From Practice Referral [facility] DateExpiration DateVisits RequestedVisits [id number]/11/20246/[id number]-atTZXQawcym CommentsGynecologic ExamPt presents for 4 mth follow up with pessary. No problems or complaints.ReasonCommentsHypertension6 week follow up for hypertensionSpecialtyDiagnoses / ProceduresReferred By ContactReferred To ContactCardiology Diagnoses Essential hypertension Palpitations Procedures Follow Up In Cardiology Jamia Ndiaye MD [address] [place] [address], [address] [address] Phone: tel: fax: Jamia Ndiaye MD [address] [place] [address] 2, [address] [address] Phone: tel: fax: Referral IDStausR[facility] DateExpiration DateVisits RequestedVisits [id number]/25/20256/[id number] Care Established patient presents today with her for routine nail care.Reason CommentsFollow-up4 -5 month Two-vessel coronary artery diseaseSpecialtyDiagnoses / ProceduresReferred By ContactReferred To ContactCardiology Diagnoses ASCVD (arteriosclerotic cardiovascular disease) Procedures Follow Up In Cardiology Jamia Ndiaye MD [address] [facility] 2, [address] [phone] Phone: tel: fax: Jamia Ndiaye MD [address] [facility] 2, [place] [phone] Phone: tel: fax: Referral IDStatusReasonStart DateExpiration DateVisits RequestedVisits [id number]/26/20253/738080ZzhojrKbskevmfDeufetr Care Established patient presents today with her for nail care.ReasonComments PainReasonCommentsGynecologic ExamPt presents for pessary maintenance . No concerns or problems. Has left side pain from a fall that occurred a week ago. Has seen her pcp since fall. Care Teams (unrecognized sec tion and content) Team Status: Active Member Role Status Dates Ivan Barreto DO Primary Care Provider Active Team Status: Inactive Member Role Status Dates Ivan Barreto DO Primary Care Provider Active Start: November 25, 2024 End: November 29, 2024PaKatherine Coelho ProviderActiveStart: November 25, 2024 End: November 29, 2024RuLamar Cruz ProviderActiveStart: November 25, 2024 End: November 29, 2024Shelby Goldstein RNOther ProviderActiveStart: November 25, 2024 End: November 29, 2024Tirso Gillette ProviderActiveStart: November 25, 2024 End: November 29, 2024Chelsie Cedeno MDOther ProviderActiveStart: November 25, 2024 End: November 29, 2024Pineda Santillan MDOther ProviderActiveStart: November 25, 2024 End: November 29, 2024Jamia Ndiaye MDOther ProviderActiveStart: November 25, 2024 End: November 29Andrzej Jacobson ProviderActiveStart: November 25, 2024 End: November 29, 2024Nazia Kaur ProviderActiveStart: November 25, 2024 End: November 29, 2024Myra Gold MDOther ProviderActiveStart: November 25, 2024 End: November 29, 2024Yoav Nielson MDOther ProviderActiveStart: November 25, 2024 End: November 29, 2024Lul Ham MDOther ProviderActiveStart: November 25, 2024 End: November 29KAMILA PrestonP-BCOther ProviderActiveStart: November 25, 2024 End: November 29, 2024Nolan Ballesteros DOAttending ProviderActiveStart: November 25, 2024 End: November 29, 2024 Team Status: Active Member Role Status Dates Ivan Barreto DO Primary Care Provider Active Start: December 05, 2024 Adrián Foreman ProviderActiveStart: December 05, 2024 Team Status: Inactive Member Role Status Dates Ivan Barreto DO Primary Care Provider Active Start: December 12, 2024 End: December 12enJustin Parkinson ProviderActiveStart: December 12, 2024 End: December 12, 2024 Team Status: Inactive Member Role Status Dates Ivan Barreto DO Primary Care Provider Active Start: February 03, 2025 End: February 03, 2025PaKatherine Coelho ProviderActiveStart: February 03, 2025 End: February 03, 2025 Team Status: Active Member Role Status Dates Ivan Barreto DO Primary Care Provider Active Start: February 06, 2025 Adrián Foreman ProviderActiveStart: February 06, 2025 Team Status: Inactive Member Role Status Dates Ivan Barreto DO Primary Care Provider Active Start: February 06, 2025 End: February 06enleonardo Barreto DOAttisai ProviderActiveStart: February 06, 2025 End: February 06, 2025 Team Status: Inactive Member Role Status Dates Ivan Barreto DO Primary Care Provider Active Start: February 09, 2025 End: February 10Glenis Gross ProviderActiveStart: February 09, 2025 End: February 10, 2025Louis Oliveira , MDAdmit ProviderActiveStart: February 09, 2025 End: February 10kamala Mahmood DOOther ProviderActiveStart: February 09, 2025 End: February 10, 2025Sandra Heart MDAttending ProviderActiveStart: February 09, 2025 End: February 10, 2025 Team Status: Active Member Role Status Dates Ivan Barreto DO Primary Care Provider Active Start: February 09, 2025 Glenis Archer ProviderActiveStart: February 09, 2025 Louis Oliveira , MDAdmit ProviderActiveStart: February 09, 2025 Rashawn Mahmood , DOAttending ProviderActiveStart: February 09, 2025 Rashawn Mahmood DOOther ProviderActiveStart: February 09, 2025 Andrzej Pratt ProviderActiveStart: February 09, 2025 Team Status: Active Member Role Status Dates Ivan Barreto DO Primary Care Provider Active Start: February 13, 2025 Xochitl Du CMAAttisai ProviderActiveStart: February 13, 2025 Team Status: Active Member Role Status Dates Ivan Barreto DO Primary Care Provider Active Start: November 15, 2024 Dania Silva ProviderActiveStart: November 15, 2024 Team Status: Inactive Member [...] Active Member Role Status Dates Chaitanya Lu , Emergency Provider Active [facility] Care ProviderActiveW Ziyad Townsend , DOAdmit Provider, Attending ProviderActiveOdalis Hager MDOther ProviderActive Team Status: Inactive Member Role Status Dates Chaitanya Lu , Emergency Provider Active W Ziyad Townsend , DOAdmit Provider, Attending ProviderActiveIvan Barreto , Primary Care ProviderActiveOdalis Hager MDOther ProviderActiveTeam Member RelationshipSpecialtyStart DateEnd Date Ivan Barreto DO [address] [place] [address] [address] [facility] [address] [phone] PCP - General04/16/21 Team Status: Inactive Member Role Status Dates Ivan Barreto DO Attending Provider Active Sta rt: August 14, 2023 End: August 14, 2023 Team Status: Inactive Member Role Status Dates Ivan Barreto DO Primary Care Provide r, Attending Provider Active Start: October 20, 2023 End: October 20, 2023Team MemberRelationshipSpecialtyStart DateEnd Date Ivan Barreto DO [address] [facility] [address] [place] [address] PCP - GeneralInternal Medicine11/10/23Team MemberRelationshipSpecialtyStart Date End Date Ivan Barreto DO [address] [facility] [address] [place] [address] PCP - GeneralInternal Medicine11/10/23Team MemberRelationshipSpecialtyStart Date End Date Ivan Barreto DO [address] [facility] [address] [place] [address] PCP - GeneralInternal Medicine11/10/23Team MemberRelationshipSpecialtyStart Date End Date Ivan Barreto DO [address] [facility] [address] [place] [address] PCP - GeneralInternal Medicine11/10/23Team MemberRelationshipSpecialtyStart Date End Date Ivan Barreto DO [address] [facility] [address] [place] [address] PCP - [facility]11/10/23Team MemberRelationshipSpecialtyStart Date End Date Ivan Barreto DO [address] [facility] [address] [place] [address] PCP - [facility]11/10/23Team MemberRelationshipSpecialtyStart Date End Date Ivan Barreto DO [address] [facility] [address] [place] [address] PCP - [facility]11/10/23 Team Status: Inactive Member Role Status Dates Ivan Barreto DO Primary Care Provider Active Start: November 16, 2023 End: November 16, 2023W Justin Fink ProviderActiveStart: November 16, 2023 End: November 16, 2023 Team Status: Inactive Member Role Status Dates Ivan Barreto DO Primary Care Provider Active Start: November 18, 2023 End: November 18, 2023W Justin Fink ProviderActiveStart: November 18, 2023 End: November 18, 2023Team MemberRelationshipSpecialtyStart DateEnd Date Ivan Barreto DO PCP - [facility]11/10/23 Team Status: Inactive Member Role Status Dates Ivan Barreto DO Primary Care Provider Active Start: November 18, 2023 End: November 19, 2023W Justin Fink ProviderActiveStart: November 18, 2023 End: November 19, 2023 Team Status: Active Member Role Status Dates Ivan Barreto DO Primary Care Provide r, Attending Provider Active Start: November 25, 2023 Team Status: Active Member Role Status Dates Ivan Barreto DO Primary Care Provider Active Start: November 30, 2023 Valdo Kaur ProviderActiveStart: November 30, 2023 Team Status: Inactive Member Role Status Dates Ivan Barreto DO Primary Care Provider Active Start: December 23, 2023 End: December 23, 2023Katherine Ponce ProviderActiveStart: December 23, 2023 End: December 23, 2023 Team Status: Inactive Member Role Status Dates Ivan Barreto DO Primary Care Provide r, Attending Provider Active Start: December 24, 2023 End: December 24, 2023 Team Status: Inactive Member Role Status Dates Ivan Barreto DO Primary Care Provide r, Attending Provider Active Start: January 07, 2024 End: January 07, 2024Team MemberRelationshipSpecialtyStart DateEnd Date Ivan Barreto DO PCP - GeneralInternal Medicine11/10/23 Team Status: Inactive Member Role Status Dates Ivan Barreto DO Primary Care Provide r, Attending Provider Active Start: January 29, 2024 End: January 29, 2024 Team Status: Inactive Member Role Status Dates Jordan Wisdom DO Attending Provider Active Sta rt: February 24, 2024 End: February 24, 2024 Team Status: Inactive Member Role Status Dates Ivan Barreto DO Primary Care Provide r, Attending Provider Active Start: March 02, 2024 End: March 02, 2024 Team Status: Active Member Role Status Gautam Barreto DO Primary Care Provider Active Start: April 07, 2024 Dania Silva ProviderActiveStart: April 07, 2024 Team Status: Inactive Member Role Status Gautam Barreto DO Primary Care Provide r, Attending Provider Active Start: April 12, 2024 End: April 12, 2024 Team Status: Inactive Member Role Status Dates Ivan Barreto DO Primary Care Provide r, Attending Provider Active Start: April 25, 2024 End: April 25, 2024Team MemberRelationshipSpecialtyStart DateEnd Date Ivan Barreto MD [address] [place] [phone] [facility]12/15/22Team MemberRelationshipSpecialtyStart Date End Date Ivan Barreto MD [address] [place] [facility] [place] [address] PCP - GeneralInternal Medicine12/15/22Team MemberRelationshipSpecialtyStart Date End Date Ivan Barreto MD [address] [place] [facility] [place] [address] PCP - GeneralInternal Medicine12/15/22Team MemberRelationshipSpecialtyStart Date End Date Ivan Barreto MD [address] [place] [facility] [place] [address] PCP - GeneralInternal Medicine12/15/22Team MemberRelationshipSpecialtyStart Date End Date Ivan Barreto MD [address] [place] [facility] [place] [address] PCP - GeneralInternal Medicine12/15/22Team MemberRelationshipSpecialtyStart Date End Date Ivan Barreto DO [address] [place] [address] PCP - GeneralInternal Tkuwsqvd47/8/21 Team Status: Inactive Member Role Status Dates Ivan Barreto DO Primary Care Provide r, Attending Provider Active Start: May 27, 2024 End: May 27, 2024Team MemberRelationshipSpecialtyStart DateEnd Date Ivan Barreto DO PCP - GeneralInternal Medicine11/10/23Team MemberRelationshipSpecialtyStart Date End Date Ivan Barreto MD [address] [place] [facility] [place] [address] PCP - GeneralInternal Medicine12/15/22Team MemberRelationshipSpecialtyStart Date End Date Ivan Barreto MD [address] [facility] [place] [address] PCP - GeneralInternal Medicine12/15/22Team MemberRelationshipSpecialtyStart Date End Date Ivan Barreto MD [address] [place] [facility] [place] [address] PCP - GeneralInternal Medicine12/15/22am MemberRelationshipSpecialtyStart Date End Date Ivan Barreto MD [address] [place] [facility] [place] [address] PCP - GeneralInternal Medicine12/15/22Team MemberRelationshipSpecialtyStart Date End Date Ivan Barreto MD [address] [place] [facility] [place] [address] PCP - GeneralInternal Medicine12/15/22Team MemberRelationshipSpecialtyStart Date End Date Ivan Barreto MD [address] [place] [facility] [place] [address] PCP - GeneralInternal Medicine12/15/22Team MemberRelationshipSpecialtyStart Date End Date Ivan Barreto DO PCP - GeneralInternal Medicine11/10/23 Team Status: Active Member Role Status Dates Ivan Barreto DO Primary Care Provider Active Start: November 25, 2024 Katherine Arthur ProviderActiveStart: November 25, 2024 Katya Semaskiene , MDAdmit Provider, Attending ProviderActiveStart: November 25, 2024 Team MemberRelationshipSpecialtyStart DateEnd Date Ivan Barreto DO [address] [place] [address] PCP - GeneralInternal Medicine11/29/24Team MemberRelationshipSpecialtyStart Date End Date Ivan Barreto DO [address] [place] [address] PCP - GeneralInternal Medicine11/29/24 Xochitl Knox, NICOLE Care ManagerCase Management12/05/24 Team Status: Inactive Member Role Status Dates Ivan Barreto DO Primary Care Provide r, Attending Provider Active Start: December 12, 2024 End: December 12, 2024Team MemberRelationshipSpecialtyStart DateEnd Date Ivan Barreto DO [address] [place] [address] PCP - GeneralInternal Medicine12/15/22Team MemberRelationshipSpecialtyStart Date End Date Ivan Barreto DO [address] [place] [address] PCP - GeneralInternal Medicine12/15/22Team MemberRelationshipSpecialtyStart Date End Date Ivan Barreto DO [address] [place] [address] PCP - GeneralInternal Medicine12/15/22Team MemberRelationshipSpecialtyStart Date End Date Ivan Barreto DO [address] [place] [address] PCP - GeneralInternal Medicine11/29/24Team MemberRelationshipSpecialtyStart Date End Date Ivan Barreto DO [address] [place] [address] PCP - GeneralInternal Medicine12/15/22Team MemberRelationshipSpecialtyStart Date End Date Ivan Barreto DO [address] [place] [address] PCP - GeneralInternal [facility]12/15/22 Team Status: Active Member Role Status Dates Ivan Barreto DO Primary Care Provider Active Start: February 09, 2025 Glenis Archer ProviderActiveStart: February 09, 2025 Lamar Resendiz ProviderActiveStart: February 09, 2025 Luois Oliveira MDAttisai ProviderActiveStart: February 09, 2025 Team Status: Inactive Member Role Status Dates Ivan Barreto DO Primary Care Provider Active Start: February 24, 2025 End: February 24enjamonty Barreto DOAttisai ProviderActiveStart: February 24, 2025 End: February 24, 2025Team MemberRelationshipSpecialtyStart DateEnd Date Ivan Barreto DO [address] [place] [address] PCP - [facility]al [facility]11/29/24Team MemberRelationshipSpecialtyStart Date End Date Ivan Barreto DO [address] [place] [address] PCP - GeneralInternal [facility]12/15/22 Celina Muñoz PA [address] [place] [address] PCP [facility]08/03/2511Team MemberRelationshipSpecialtyStart Date End Date Ivan Barreto DO [address] [place] [address] PCP - [facility] Centernal [facility]12/15/22 Celina Muñoz PA [address] [place] [address] PCP - Medical [facility]08/03/2511 Team Status: Active Member Role Status Dates Ivan Barreto DO Primary Care Provider Active Start: April 05, 2025 Jamia Ndiaye MDAttisai ProviderActiveStart: April 05, 2025 Team Status: Inactive Member Role Status Dates Ivan Barreto DO Primary Care Provider Active Start: May 15, 2025 End: May 15enleonardo Barreto DOAttisai ProviderActiveStart: May 15, 2025 End: May 15, 2025Team MemberRelationshipSpecialtyStart DateEnd Date Ivan Barreto DO [address] [place] [address] PCP - [facility]12/15/22 Celina Muñoz PA [address] [place] [address] [facility] - Medical [facility]08/03/2511Team MemberRelationshipSpecialtyStart Date End Date Ivan Barreto DO [address] [place] [address] PCP - [facility]12/15/22 Celina Muñoz PA [address] [place] [address] PCP - Medical [facility]08/03/2511Team MemberRelationshipSpecialtyStart Date End Date Ivan Barreto DO [address] [place] [address] PCP - [facility]12/15/22 Celina Muñoz PA [address] [place] [address] PCP - Medical [facility]08/03/2511 Goals (unrecognized section and content) Goals may be documented in a n alternate section Scheduled Active and Recently Administ ered Medications (unrecognized section and content) Medication Order aspirin EC tablet 81 mg 81 mg, oral, Daily, First dose on Thu12/01/24 at 1215, Do not crush, chew, or split. * 1206 (Given - Provider: Deedee Chand RN) * 0835 (Given - Provider: Deedee Chand RN) * 0847 (Given - Provider: Jennifer Calderón, NICOLE) atorvastatin (Lipitor) tablet 80 mg 80 mg, oral, Daily, First dose on Thu11/29/24 at 2100 * 2109 (Given - Provider: Magdalene Limon RN) * 2056 (Given - Provider: Magdalene Limon, NICOLE) * 2100 (Due) carvedilol (Coreg) tablet 6.25 mg 6.25 mg, oral, 2 times daily (morning and late afternoon), First dose on Thu11/29/24 at 1700 * 0942 (Given - Provider: Deedee Chand RN) * 1845 (Given - Provider: Deedee Chand RN) * 0834 (Given - Provider: Deedee Chand RN) * 1611 (Given - Provider: Deedee Chand, NICOLE) * 0847 (Given - Provider: Jennifer Calderón, RN) * 1700 (Due) clopidogrel (Plavix) tablet 75 mg 75 mg, oral, Daily, First dose on Thu12/01/24 at 1215 * 1206 (Given - Provider: Deedee Chand RN) * 0834 (Given - Provider: Deedee Chand RN) * 0847 (Given - Provider: Jennifer Calderón, NICOLE) hydroCHLOROthiazide (Microzide) tablet 12.5 mg 12.5 mg, oral, Daily, First dose on Thu11/29/24 at 1615, On hold since Thu12/02/2024 at 0800 until manually unheld * 0942 (Given - Provider: Deedee Chand RN) * 0800 (Held by provider - Provider: ABDULLAHI Rome - Reason: Change in vital signs) * 0900 (Dose Auto Held - Provider: ABDULLAHI Rome) * 0900 (Not Given - Provider: Jennifer Calderón RN - Reason: See Provider Order) losartan (Cozaar) tablet 25 mg 25 mg, oral, Daily, First dose on Thu12/02/24 at 0900 * 0834 (Given - Provider: Deedee Chand RN) * 0847 (Given - Provider: Jennifer Calderón, NICOLE) oxybutynin (Ditropan) tablet 5 mg 5 mg, oral, 2 times daily, First dose on Thu11/29/24 at 2100 * 0942 (Given - Provider: Deedee Chand RN) * 210 (Given - Provider: Magdalene Limon, NICOLE) * 0835 (Given - Provider: Deedee Chand RN) * 205 (Given - Provider: Magdalene Limon, NICOLE) * 0848 (Given - Provider: Jennifer Calderón, RN) * 2100 (Due) pantoprazole (ProtoNix) EC tablet 40 mg 40 mg, oral, Daily before breakfast, First dose on Thu11/30/24 at 0600, Do not crush, chew, or split. * 0654 (Given - Provider: Magdalene Limon RN) * 0644 (Given - Provider: Magdalene Limon, RN) * 0640 (Given - Provider: Magdalene Limon, RN) polyethylene glycol (Glycolax, Miralax) packet 17 g 17 g, oral, Daily, First dose on Thu11/29/24 at 1515, Bowel Regimen - for prevention of constipation. * 0954 (Not Given - Provider: Deedee Chand RN - Reason: Patient/family refused) * 0835 (Not Given - Provider: Deedee Chand RN - Reason: Patient/family refused) * 0847 (Not Given - Provider: Jennifer Calderón RN - Reason: Patient/family refused) ranolazine (Ranexa) 12 hr tablet 500 mg 500 mg, oral, 2 times daily, First dose on Thu12/02/24 at 0900, Do not crush, chew, or split. * 0835 (Given - Provider: Deedee Chand, RN) * 2102 (Given - Provider: Magdalene Lmion, NICOLE) * 0848 (Given - Provider: Jennifer Calderón RN) * 2100 (Due) Medication Order12/01///10/2024 heparin 25,000 Units in dextrose 5% 250 mL (100 Units/mL) infusion (premix) (CANCELED) 0-4,000 Units/hr (0-40 mL/hr), intravenous, Continuous, Starting on Thu11/29/24 at 1615, Until Thu12/02/24 at 1330, Low Intensity Heparin Protocol (<70kg) InitialDose: 12 units/kg/hr --> Use heparin calculator for units/hr rate Maximum Initial Dose: 1000 units/hr Recheck Heparin Assay, UFH level 4 hours after any rate change, or per protocol. Titration Tabl e: Heparin Assay, UFH < 0.1: Bolus 3,000 [...] 1.2: No Bolus. HOLD heparin infusion for 1hour, then recheck heparin assay: *If repeat is > 0.6, continue to HOLD INFUSION. -Confirm last draw was performed correctly (pump was paused for a minimum of 2 minutes, sample NOT drawn off line/lumen where medication was infusing) -Contact provider for further orders. *If repeat is <= 0.6, REDUCE previous infusion rate by 300 units/hour and restart infusion. - Recheck Heparin Assay, UFH in4 hours after dose reduction. -Resume nomogram * 0958 (New Bag - Provider: Deedee Chand RN) * 1330 (Stopped - Provider: Deedee Chand RN - Comment: [Order ends at this time. Document the following action when infusion is complete: Stopped]) sodium chloride 0.9% infusion (CANCELED) 100 mL/hr, intravenous, Continuous, Starting on Thu12/02/24 at 0130, For 1 day, Preprocedure * 0843 (New Bag - Provider: Deedee Chand RN) * 1332 (Stopped - Provider: Deedee Chand RN - Comment: [Order ends at this time. Document the following action when infusion is complete: Stopped]) Medication Order12/01////10/2024 acetaminophen (Tylenol) oral liquid 650 mg(Linked Group 1) 650 mg, oral, Every 4 hours PRN, pain mild (1-3), first line, Starting on Thu11/29/24 at 1457, Giveoral liquid per feeding tube if present or if patient prefers oral liquid over tablets. * 0310 (See Alternative - Provider: Magdalene Limon [...] pain scores based on patient preference? Yes * 0310 (See Alternative - Provider: Magdalene Limon RN) acetaminophen (Tylenol) tablet 650 mg(Linked Group 1) 650 mg, oral, Every 4 hours PRN, pain mild (1-3), first line, Starting on Thu11/29/24 at 1457, Administer tablet or oral liquid per patient preference., If ordered PRN for pain, nurse is permitted toadminister this medication for higher pain scores based on patient preference? Yes * 0310 (Given - Provider: Magdalene Limon, RN) fentaNYL PF (Sublimaze) injection (CANCELED) As needed, Starting on Thu12/02/24 at 1242, Intraprocedure * 1242 (Given - Provider: Leeann Duncan RN - Comment: sedation) heparin 1,000 unit/mL injection (CANCELED) As needed, Starting on Thu12/02/24 at 1245, Intraprocedure * 1245 (Given - Provider: Leeann Duncan RN - Comment: anticoagulationwitnessed by YARIEL) iohexol (OMNIPaque) 350 mg iodine/mL solution (CANCELED) As needed, Starting on Thu12/02/24 at 1300, Intraprocedure * 1300 (Given - Provider: Ann Howard MD - Comment: xray dye used) lidocaine (Xylocaine) 20 mg/mL (2 %) injection (CANCELED) As needed, Starting on Thu12/02/24 at 1244, Intraprocedure * 1244 (Given - Provider: Ann Howard MD - Comment: rt groin numbing) melatonin tablet 10 mg 10 mg, oral, Nightly PRN, sleep, Starting on Thu12/01/24 at 2042 * 2109 (Given - Provider: Magdalene Limon RN) * 2054 (Given - Provider: Magdalene Limon, NICOLE) midazolam (Versed) injection (CANCELED) As needed, Starting on Thu12/02/24 at 1243, Intraprocedure * 1243 (Given - Provider: Leeann Duncan RN [...] Starting on Thu11/30/24 at 1841, May administer upto 3 doses per episode. * 0305 (Given - Provider: Magdalene Limon, NICOLE) * 0310 (Given - Provider: Magdalene Limon RN) * 1236 (Given - Provider: Deedee Chand, RN) * 1303 (Given - Provider: Deedee Chand, RN) nitroglycerin (Tridil) injection (CANCELED) As needed, Starting on Thu12/02/24 at 1251, Intraprocedure * 1251 (Given - Provider: Ann Howard MD - Comment: spasm) ondansetron (Zofran) injection 4 mg(Linked Group 2) 4 mg, intravenous, Every 8 hours PRN, nausea/vomiting, first line, Starting on Thu11/29/24 at 1457,1st Line. Give IV if patient is unable to take orally. If inadequate response within 60 minutes, proceed to next-line agent for same PRN reason or contact provider if no further options ordered. Whenadministering via IV Push, administer over 3-5 minutes. ondansetron (Zofran) tablet 4 mg(Linked Group 2) 4 mg, oral, Every 8 hours PRN, nausea/vomiting, first line, Starting on Thu11/29/24 at 1457, 1st Line. Use oral route first, if possible. If inadequate response within 60 minutes, proceed to next-line agent for same PRN reason or contact provider if no further options ordered. Order Group 1: acetaminophen (Tylenol) tablet 650 mgJump to med 650 mg, oral, Every 4 hours PRN, pain mild (1-3), first line, Starting on Thu11/29/24 at 1457, Administer tablet or oral liquid per patient preference., If ordered PRN for pain, nurse is permitted toadminister this medication for higher pain scores based on patient preference? Yes Or acetaminophen (Tylenol) oral liquid 650 mgJump to med 650 mg, oral, Every 4 hours PRN, pain mild (1-3), first line, Starting on Thu11/29/24 at 1457, Giveoral liquid per feeding tube if present or [...] nausea/vomiting, first line, Starting on Thu11/29/24 at 1457,1st Line. Give IV if patient is unable to take orally. If inadequate response within 60 minutes, proceed to next-line agent for same PRN reason or contact provider if no further options ordered. Whenadministering via IV Push, administer over 3-5 minutes. [...] BE BASED ON THE PRIMARY CLINICAL RECORDS. [facility]. provides no warranty or guarantee of the accuracy or completeness of information in this document.
--- NOTE | 2025-06-12 18:43 | ED.GENADUL1 ---
HPI HPI - General Adult General Chief complaint: Head Injury Stated complaint: FELL AND HIT HER LEFT EYE Time Seen by Provider: 06/12/25 17:33 Source: patient Mode of arrival: walk-in Limitations: no limitations History of Present Illness HPI narrative: Patient is an 85-year-old female presenting to the emergency department for evaluation of a head injury. Patient states he tripped, fell, and hit the left side of her face 4 hours prior to arrival. She states that she was left with a black eye, but denies any other injuries. She has no neck pain. She has no headache or changes in her vision. Her daughter was concerned because the patient is on dual antiplatelet therapy, and is concerned for possible brain bleed. Related Data Home Medications ?Medication ?Instructions ?Recorded ?Confirmed alendronate 70 mg tablet 70 mg PO QWEEK 04/07/24 06/12/25 aspirin 81 mg tablet,delayed 81 mg PO DAILY 04/07/24 06/12/25 release (Adult Aspirin Regimen) atorvastatin 80 mg tablet 80 mg PO DAILY 04/07/24 06/12/25 carvedilol 6.25 mg tablet 6.25 mg PO Q12H 04/07/24 06/12/25 cholecalciferol (vitamin D3) 25 25 mcg PO DAILY 04/07/24 06/12/25 mcg (1,000 unit) capsule docusate sodium 100 mg capsule 100 mg PO BID 04/07/24 06/12/25 (Col-Rite) mirabegron 25 mg tablet,extended 25 mg PO Q24H 04/07/24 06/12/25 release 24 hr (Myrbetriq) nitroglycerin 0.4 mg sublingual 0.4 mg sublingual Q5M 04/07/24 06/12/25 tablet (Nitrostat) telmisartan 20 mg tablet 20 mg PO DAILY 04/07/24 11/15/24 clopidogrel 75 mg tablet 75 mg PO DAILY 11/15/24 06/12/25 pantoprazole 40 mg tablet,delayed 40 mg PO DAILY 11/15/24 06/12/25 release hydrochlorothiazide 25 mg tablet 12.5 mg PO DAILY 06/12/25 06/12/25 losartan 25 mg tablet 25 mg PO DAILY 06/12/25 06/12/25 ranolazine 500 mg tablet,extended 500 mg PO Q12H 06/12/25 06/12/25 release,12 hr Allergies Allergy/AdvReac Type Severity Reaction Status Date / Time No Known Drug Allergies Allergy Verified 11/15/24 09:19 Opioid HPI Opioid Management Most Recent Opioid Data: Last Pain Scale 1 Today, 17:50 Review of Systems ROS Status of ROS 10 or more systems reviewed and unremarkable except as noted in history and below [facility] Medical History (Updated 11/15/24 @ 09:35 by Morena Wade NP) Vaginal pessary in situ (11/2024) ?Z96.0 - Presence of urogenital implants (ICD-10) Bursitis (~04/2024) ?M71.9 - Bursopathy, unspecified (ICD-10) COVID-19 (04/11/24) ?U07.1 - COVID-19 (ICD-10) Back pain ?M54.9 - Dorsalgia, unspecified (ICD-10) Osteoporosis ?M81.0 - Age-related osteoporosis without current pathological fracture (ICD-10) Arthritis ?M19.90 - Unspecified osteoarthritis, unspecified site (ICD-10) Myocardial infarction (01/14/23) ?I21.9 - Acute myocardial infarction, unspecified (ICD-10) Encounter for pessary maintenance ?Z46.89 - Encounter for fitting and adjustment of other specified devices (ICD-10) Uterine prolapse ?N81.4 - Uterovaginal prolapse, unspecified (ICD-10) Urge incontinence ?N39.41 - Urge incontinence (ICD-10) Carbuncle of urethra ?N34.0 - Urethral abscess (ICD-10) Lichen simplex chronicus ?L28.0 - Lichen simplex chronicus (ICD-10) Hypervolemia ?E87.70 - Fluid overload, unspecified (ICD-10) Hypercholesterolemia ?E78.00 - Pure hypercholesterolemia, unspecified (ICD-10) UTI (urinary tract infection) ?N39.0 - Urinary tract infection, site not specified (ICD-10) Esophagitis ?K20.90 - Esophagitis, unspecified without bleeding (ICD-10) GERD (gastroesophageal reflux disease) ?K21.9 - Gastro-esophageal reflux disease without esophagitis (ICD-10) Cystocele with rectocele ?N81.10 - Cystocele, unspecified (ICD-10) ?N81.6 - Rectocele (ICD-10) Congestive heart failure ?I50.9 - Heart failure, unspecified (ICD-10) Anticoagulated ?Z79.01 - [facility] (current) use of anticoagulants (ICD-10) Anemia ?D64.9 - Anemia, unspecified (ICD-10) Hyperlipidemia ?E78.5 - Hyperlipidemia, unspecified (ICD-10) Hypertension ?I10 - Essential (primary) hypertension (ICD-10) Arteriosclerotic cardiovascular disease ?I25.10 - Atherosclerotic heart disease of [place] coronary artery without angina pectoris (ICD-10) CAD (coronary artery disease) ?I25.10 - Atherosclerotic heart disease of [place] coronary artery without angina pectoris (ICD-10) Aortic valve stenosis ?I35.0 - Nonrheumatic aortic (valve) stenosis (ICD-10) Urethral prolapse ?N36.8 - Other specified disorders of urethra (ICD-10) Urethral polyp ?N36.2 - Urethral caruncle (ICD-10) Surgical History (Updated 04/07/24 @ 11:38 by Morena Wade NP) History of colonoscopy ?Z98.890 - Other specified postprocedural states (ICD-10) H/O hand surgery ?Z98.890 - Other specified postprocedural states (ICD-10) History of breast biopsy ?Z98.890 - Other specified postprocedural states (ICD-10) Hx of breast reduction, elective ?Z98.890 - Other specified postprocedural states (ICD-10) S/P cataract extraction and insertion of intraocular lens ?Z98.49 - Cataract extraction status, unspecified eye (ICD-10) ?Z96.1 - Presence of intraocular lens (ICD-10) S/P total hip arthroplasty ?Z96.649 - Presence of unspecified artificial hip joint (ICD-10) History of cardiac catheterization ?Z98.890 - Other specified postprocedural states (ICD-10) H/O blepharoplasty ?Z98.890 - Other specified postprocedural states (ICD-10) H/O abdominoplasty ?Z98.890 - Other specified postprocedural states (ICD-10) H/O cystoscopy ?Z98.890 - Other specified postprocedural states (ICD-10) Post PTCA (~11/2023) ?Z98.61 - Coronary angioplasty status (ICD-10) Family History (Updated 04/07/24 @ 11:38 by Morena Wade NP) Other Family history of heart disease Family history of hypertension Family history of myocardial infarction Family history of stroke Social History (Updated 04/07/24 @ 11:31 by Morena Wade NP) Within the past year, how often did you have a drink containing alcohol: monthly or less Smoking status: Never smoker Non-prescribed substance use: denies use Highest level of school completed/degree received: high school graduate Little interest or pleasure in doing things: not at all Feeling down, depressed, or hopeless: not at all Exam Narrative Exam Narrative: CONSTITUTIONAL: Well-appearing, answering questions and following commands appropriately SKIN: Was warm and dry. HEAD: Atraumatic, normocephalic, no C-spine tenderness. EYES: Patient is left-sided periorbital ecchymosis with superficial abrasion over the left eyebrow. PERRLA. EOMI. Visual acuity intact bilaterally. EARS, NOSE, THROAT: Moist oral mucosa. No septal hematoma. RESPIRATORY: Nonlabored respirations. CARDIOVASCULAR: Normal rate and regular rhythm. There is no S3, S4, murmur, rub. GASTROINTESTINAL: Abdomen is nondistended. MUSCULOSKELETAL: No peripheral edema. No bony tenderness or deformities of the upper/lower extremities. NEUROLOGIC: Patient is awake and alert. Facies were symmetrical. Constitutional Vital Signs, click to edit/add: Last Vital Signs Temp 97.4 F L 06/12/25 17:34 Pulse 80 06/12/25 17:34 Resp 18 06/12/25 17:34 BP 189/90 H 06/12/25 17:34 Pulse Ox 98 06/12/25 17:34 O2 Del Method Room Air 06/12/25 17:34 Course Vital Signs Vital signs: Vital Signs Temperature 97.4 F L 06/12/25 17:34 Pulse Rate 80 06/12/25 17:34 Respiratory Rate 18 06/12/25 17:34 Blood Pressure 189/90 H 06/12/25 17:34 Pulse Oximetry 98 06/12/25 17:34 Oxygen Delivery Method Room Air 06/12/25 17:34 Temperature 97.4 F L 06/12/25 17:34 Pulse Rate 80 06/12/25 17:34 Respiratory Rate 18 06/12/25 17:34 Blood Pressure 189/90 H 06/12/25 17:34 Pulse Oximetry 98 06/12/25 17:34 Oxygen Delivery Method Room Air 06/12/25 17:34 Medical Decision Making MDM Narrative Medical decision making narrative: Patient is an 85-year-old female presenting to the emergency department 4 hours after mechanical fall from standing height on dual antiplatelet therapy. Her vital signs on arrival are significant for hypertension, otherwise within normal limits. She is afebrile and hemodynamically stable. Examination as noted above. Differential diagnosis includes intracranial hemorrhage, periorbital contusion. Extraocular muscles are intact, low concern for orbital fracture/entrapment. CT head was ordered. CT head independently reviewed/interpreted by myself demonstrated no acute intracranial pathology or hemorrhage. Patient will be signed out to Dr. Gonzalez pending results of the head CT. Discharge Plan Discharge Patient Disposition: Still a Patient
== END 2025-06-12 19:49 | disposition home or self-care (01) ==
PROVIDERS: Emergency Provider Internal Medicine; PCP Internal Medicine
DX: S00.83XA Contusion of other part of head, initial encounter (principal); S09.90XA Unspecified injury of head, initial encounter; W01.0XXA Fall on same level from slipping, tripping and stumbling without subsequent striking against object, initial encounter; Z79.02 Long term (current) use of antithrombotics/antiplatelets
CPT/HCPCS: 70450; 99284